=== PATIENT | male | born 1935 | race Caucasian/White ===

== ENCOUNTER → 2017-02-16 | Outpatient (CLI) | payer OTHER ==
[~2017-02-16] MED LIST: ANDROGEN IM; BICA50TA40 PO; CALC0.5C PO; CALC500C3; CALC500C3 PO; CIPR1TAB11 PO; CLC100 PO; CLCC1250 PO; CSD50 PO; FINA1TAB3 PO; FINA5TAB PO; FLUC100T4 PO; FSMD/70 PO; HYDR25TA5 PO; MGNO400 PO; MIRT15TA2 PO; MIRT15TA53 PO; MRLP17X PO; NYSO15 EXT; POTTAB2 PO; PRLSR20 PO; RANI300T2 PO; RMR15 PO; SULF800T23 PO; TAMS0.4C38 PO; TUMS PO; ZFRODT/8 PO; [UNRECOGNIZED DRUG - CODE] IV
== END | disposition home or self-care (01) ==
LOC: C.PATHSPEC 14:19
PROVIDERS: ATTEND Urology
DX: C61 Malignant neoplasm of prostate (principal)

== ENCOUNTER → 2017-02-19 | Outpatient (CLI) | payer OTHER ==
[~2017-02-19] MED LIST changes: -ANDROGEN IM; -BICA50TA40 PO; -CALC0.5C PO; -CALC500C3; -CALC500C3 PO; -CLC100 PO; -CLCC1250 PO; -FINA5TAB PO; -FSMD/70 PO; -HYDR25TA5 PO; -MGNO400 PO; -NYSO15 EXT; -POTTAB2 PO; -RMR15 PO; -TUMS PO; -[UNRECOGNIZED DRUG - CODE] IV
--- NOTE | 2017-02-19 18:41 | DIAGNOSTIC IMAGING REPORT ---
WHOLE-BODY NUCLEAR BONE SCAN CLINICAL HISTORY: Metastatic disease. COMPARISON STUDY: Abdominal CT dated 02/08/2017. TECHNIQUE: Three hours following the IV administration of 25.9 mCi of technetium 99m MDP, whole body nuclear bone scan was performed in the anterior and posterior projections. FINDINGS: There is diffuse abnormal osseous tracer deposition identified throughout the skeleton consistent with diffuse osseous metastatic disease. There is no excreted activity within the renal collecting system and bladder, and the findings are consistent with a "SuperScan". 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 This corresponds to the 02/08/2017 CT findings. Electronically signed by: Zoltan Barfield M.D. 02/19/2017 6:40 PM Dictated Date/Time: 02/19/2017 6:37 PM
== END | disposition home or self-care (01) ==
LOC: C.NUCL 09:50
PROVIDERS: ATTEND Urology
DX: N13.30 Unspecified hydronephrosis (principal); N40.0 Benign prostatic hyperplasia without lower urinary tract symptoms; R59.9 Enlarged lymph nodes, unspecified

== ENCOUNTER → 2017-02-19 | Day surgery (SDC) | payer OTHER ==
[~2017-02-19] VITALS: Ht 165.1 cm; Wt 60.5 kg
[~2017-02-19] MED LIST changes: -CSD50 PO; -MRLP17X PO; +SODIUM CHLORIDE 0.9% 500ML 500 ML IV ONE; -ZFRODT/8 PO
[2017-02-19 10:09] VITALS: TEMP 36.4
[2017-02-19 10:11] VITALS: Ht 165.1 cm; Wt 60.5 kg
--- NOTE | 2017-02-19 10:34 | Endo History and Physical ---
History & Physical Date of Service: Feb 19, 2017. Chief Complaint: dysphagia and recent weight loss Referring Physician: Dr. Brewster History of Present Illness 81 yo CM who presents for EGD secondary to Dysphagia and Weight loss. Past Surgical History Hx Cardiac Surgery: No Hx Internal Defibrillator: No Hx Pacemaker: No Hx Abdominal Surgery: Yes (hernia 2012) Hx of Implantable Prosthesis: No Hx Post-Op Nausea and Vomiting: No Hx Cancer Surgery: No Hx Thoracic Surgery: No Hx Orthopedic: No Hx Urinary Tract Surgery: No (Currently has urinary cath) Family History None Social History Smoking Status: Former Smoker Hx Substance Use: No Hx Alcohol Use: No Allergies Coded Allergies: No Known Allergies (Unverified , 02/19/17) Vital Signs Weight (Kilograms): 60.45 Height (Feet): 5 Height (Inches): 5 Date Time Temp Pulse Resp B/P (MAP) Pulse Ox O2 Delivery O2 Flow Rate FiO2 02/19/17 10:09 36.4 94 18 122/69 (86) 97 Room Air Physical Exam General Appearance: WD/WN, no apparent distress Respiratory/Chest: Auscultation: breath sounds normal Cardiovascular: Heart Auscultation: RRR Abdomen: Bowel Sounds: normal Inspection & Palpation: soft, non-distended, no tenderness, guarding & rebound Assessment and Plan Assessment: 81 yo CM who presents for EGD secondary to Dysphagia and Weight loss. Plan: Proceed with EGD.
--- NOTE | 2017-02-19 11:19 | GI REPORT ---
Procedure Date: 02/19/2017 10:03 AM Procedure: Upper GI endoscopy Indications: Dysphagia, Weight loss Medicines: Monitored Anesthesia Care Complications: No immediate complications. Estimated Blood Loss: Estimated blood loss: none. Procedure: Pre-Anesthesia Assessment: - Prior to the procedure, a History and Physical was performed, and patient medications and allergies were reviewed. The patient's tolerance of previous anesthesia was also reviewed. The risks and benefits of the procedure and the sedation options and risks were discussed with the patient. All questions were answered, and informed consent was obtained. Prior Anticoagulants: The patient has taken no previous anticoagulant or antiplatelet agents. ASA Grade Assessment: III - A patient with severe systemic disease. After reviewing the risks and benefits, the patient was deemed in satisfactory condition to undergo the procedure. After obtaining informed consent, the endoscope was passed under direct vision. Throughout the procedure, the patient's blood pressure, pulse, and oxygen saturations were monitored continuously. The scope was introduced through the mouth, and advanced to the second part of duodenum. The upper GI endoscopy was accomplished without difficulty. The patient tolerated the procedure well. Findings: A moderate Schatzki ring (acquired) was found at the gastroesophageal junction. A medium-sized hiatal hernia was present. Localized mild inflammation characterized by congestion (edema) and erythema was found in the gastric antrum. Biopsies were taken with a cold forceps for histology. The examined duodenum was normal. Impression: - Moderate Schatzki ring. - Medium-sized hiatal hernia. - Gastritis. Biopsied. - Normal examined duodenum. Recommendation: - Resume previous diet. - Continue present medications. - Await pathology results. - Return to primary care physician as previously scheduled. Bartolo Harris, DO 02/19/2017 11:19:18 AM This report has been signed electronically. Note Initiated On: 02/19/2017 10:03 AM I attest to the content of the Intraoperative Record and orders documented therein, exceptions below
--- NOTE | 2017-02-19 11:24 | Discharge Instructions ---
Endoscopy Patient Instructions Date / Procedure(s) Performed Feb 19, 2017. EGD Allergy Information Coded Allergies: No Known Allergies (Unverified , 02/19/17) Discharge Date / Findings Feb 19, 2017. Schatzki's Ring s/p dilation Hiatal hernia Gastritis s/p biopsies Medication Instructions OK to resume all medications today as prescribed Reported Home Medications Medications Dose Route/Sig Max Daily Dose Days Date Category Propecia (Finasteride) 1 Mg Tab 1 Mg PO 02/19/17 Reported Prilosec (Omeprazole) 20 Mg Capcr 20 Mg PO DAILY 02/19/17 Reported Flomax (Tamsulosin Hcl) 0.4 Mg Cap 1 Cap PO DAILY 30 02/19/17 Reported Diflucan (Fluconazole) 100 Mg Tab 1 Tab PO DAILY 10 02/19/17 Reported Zantac (Ranitidine HCl) 300 Mg Tab 300 Mg PO HS 02/19/17 Reported Remeron Soltab (Mirtazapine) 15 Mg Soltab 15 Mg PO 02/19/17 Reported Provider Instructions Activity Restrictions - No exercising or heavy lifting for 24 hours. - Do not drink alcohol the day of the procedure. - Do not drive a car or operate machinery until the day after the procedure. - Do not make any important decisions or sign important papers in 24 hours after the procedure. Following Day: - Return to full activity which may include returning to work/school. Diet Start your diet with liquids and light foods (jello, soup, juice, toast). Then eat your usual diet if not nauseated. Treatment For Common After Affects For mild abdominal pain, bloating, or excessive gas: - Rest - Eat lightly - Lie on right side Follow-Up Information Follow-up with Dr. Brewster as scheduled Anesthesia Information What You Should Know You have had a procedure that required some medicine to reduce anxiety and discomfort. This treatment is called moderate sedation. After receiving the treatment, you may be sleepy, but you will be able to breathe on your own. The effects of the treatment may last for several hours. Follow these instructions along with Activity/Diet recommendations noted above: * Do NOT do anything where dizziness or clumsiness would be dangerous. * Rest quietly at home today, then you can be up and about tomorrow. * Have a responsible person stay with you the rest of today. * You may have had an I.V. today. If so, you may take the dressing off later today. Recommendations Call your doctor if: * Trouble breathing * Continuous vomiting for more than 24 hours * Temperature above 101 degrees * Severe abdominal pain or bloating * Pain not relieved by pain medicine ordered * There is increased drainage or redness from any incision * A large amount of rectal bleeding greater than 2-3 tablespoons. (If you had a polyp/s removed or have hemorrhoids, a small amount of blood - from the rectum is to be expected.) * You have any unanswered questions or concerns. IN THE EVENT OF A SERIOUS EMERGENCY, GO TO THE NEAREST EMERGENCY ROOM Your discharge instructions were prepared by provider Bartolo Harris. Patient Instructions Signature Page Paul Greene Patient (or Guardian) Signature/Date: I have read and understand the instructions given to me by my caregivers. Caregiver/RN/Doctor Signature/Date: The above-named patient and/or guardian has received patient instructions on this date. + Original Patient Signature Page (only) stays with chart. Please make copy for patient.
--- NOTE | 2017-02-19 11:24 | Anesthesiology Progress Note ---
Anesthesia Post Op Note Date & Time Feb 19, 2017 at 11:24 Vital Signs Pain Intensity: 0 Vital Signs Past 12 Hours Date Time Temp Pulse Resp B/P (MAP) Pulse Ox O2 Delivery O2 Flow Rate FiO2 02/19/17 11:17 85 16 98/60 (73) 97 Room Air 02/19/17 10:09 36.4 94 18 122/69 (86) 97 Room Air Notes Mental Status: alert / awake / arousable, participated in evaluation Pt Amnestic to Procedure: Yes Nausea / Vomiting: adequately controlled Pain: adequately controlled Airway Patency, RR, SpO2: stable & adequate BP & HR: stable & adequate Hydration State: stable & adequate Anesthetic Complications: no major complications apparent
[2017-02-19 11:47] VITALS: BP 111/70; PULSE 79; O2SAT 95
== END | disposition home or self-care (01) ==
LOC: C.GI 09:46
PROVIDERS: ATTEND Internal Medicine
DX: R13.10 Dysphagia, unspecified (principal); R63.4 Abnormal weight loss; K22.2 Esophageal obstruction; K44.9 Diaphragmatic hernia without obstruction or gangrene; K29.50 Unspecified chronic gastritis without bleeding; N18.9 Chronic kidney disease, unspecified; I12.9 Hypertensive chronic kidney disease with stage 1 through stage 4 chronic kidney disease, or unspecified chronic kidney disease; Z91.040 Latex allergy status; Z88.1 Allergy status to other antibiotic agents

== ENCOUNTER 2017-02-20 15:36 | Inpatient (IN) | payer OTHER ==
[~2017-02-20] VITALS: Ht 165.1 cm; Wt 61.7 kg
[~2017-02-20 15:36] MED LIST changes: -CIPR1TAB11 PO; -MIRT15TA53 PO; -SODIUM CHLORIDE 0.9% 500ML 500 ML IV ONE; -SULF800T23 PO
[2017-02-20] MEDS ORDERED: SODIUM CHLORIDE 0.9% 1000ML 1,000 ML IV STA (16:17)
[2017-02-20] MEDS ORDERED: SODIUM CHLORIDE 0.9% 500ML 500 ML IV STA (16:17)
[2017-02-20] MEDS ORDERED: CIPR1TAB11 PO ×2 (16:24)
[2017-02-20] MEDS ORDERED: MIRT15TA53 PO ×2 (16:24)
[2017-02-20] MEDS ORDERED: SULF800T23 PO ×2 (16:24)
[2017-02-20 17:00] LABS: BASO % 0.5 %; BASO ABS # 0.03 K/uL (0-0.2); EOS ABS # 0.06 K/uL (0-0.5); HEMATOCRIT 40.8 % (42-52); HEMOGLOBIN 14.2 g/dL (14.0-18.0); IG# 0.11 K/uL (0.00-0.02); LYMPH % 18.4 %; LYMPH ABS # 1.14 K/uL (1.2-3.4); MEAN CELL VOLUME 83.6 fL (80-100); MEAN CORPUSCULAR HEMOGLOBIN 29.1 pg (25-34); MEAN CORPUSCULAR HGB CONC 34.8 g/dl (32-36); MEAN PLATELET VOLUME 7.9 fL (7.4-10.4); MONO % 10.2 %; MONO ABS # 0.63 K/uL (0.11-0.59); NEUT % 68.1 %; NEUT ABS # 4.23 K/uL (1.4-6.5); PLATELET COUNT 120 K/uL (130-400); RED CELL DISTRIBUTION WIDTH CV 14.6 % (11.5-14.5); RED CELL DISTRIBUTION WIDTH SD 44.7 fL (36.4-46.3)
--- NOTE | 2017-02-20 17:07 | DIAGNOSTIC IMAGING REPORT ---
CT HEAD WITHOUT CONTRAST (CT) CLINICAL HISTORY: Weakness COMPARISON STUDY: No previous studies for comparison. TECHNIQUE: Axial CT of the brain is performed from the vertex to the skull base. IV contrast was not administered for this examination. A dose lowering technique was utilized adhering to the principles of ALARA. CT DOSE: 537.48 mGy.cm FINDINGS: No intra or extra-axial mass lesions are visualized. There is no CT evidence of acute cortical infarction. There is no evidence of midline shift. There is no acute hemorrhage. No calvarial fractures are visualized. There are patchy white matter hypodensities likely on a small vessel basis. There is no evidence of pathologic ventricular dilatation. There is no evidence of acute sinusitis IMPRESSION: No acute intracranial findings Electronically signed by: Ananda Garcia M.D. 02/20/2017 5:05 PM Dictated Date/Time: 02/20/2017 5:05 PM
[2017-02-20 17:08] LABS: INR 1.2 (0.9-1.1); PTT PATIENT 31.7 SECONDS (21.0-31.0)
[2017-02-20 17:25] LABS: ALBUMIN 2.9 gm/dl (3.4-5.0); ALT/SGPT 16 U/L (12-78); BLOOD UREA NITROGEN 36 mg/dl (7-18); CALCIUM 8.5 mg/dl (8.5-10.1); CARBON DIOXIDE 24 mmol/L (21-32); CREATININE 2.58 mg/dl (0.60-1.40); GLUCOSE 131 mg/dl (70-99); LIPASE 142 U/L (73-393); POTASSIUM 4.3 mmol/L (3.5-5.1); SODIUM 133 mmol/L (136-145)
[2017-02-20 17:39] LABS: ALKALINE PHOSPHATASE 1326 U/L (45-117); AST/SGOT 31 U/L (15-37); CKMB 1.3 ng/ml (0.5-3.6); TOTAL PROTEIN 7.3 gm/dl (6.4-8.2)
[2017-02-20] MEDS ORDERED: ONDANSETRON INJ 2 MG/ML 2 ML VIAL IV STA (18:33)
--- NOTE | 2017-02-20 18:39 | DIAGNOSTIC IMAGING REPORT ---
AP CHEST WITH ABDOMINAL SERIES CLINICAL HISTORY: Vomiting. FINDINGS: An AP chest radiograph is obtained. No prior studies are available for comparison at the time of dictation. The cardiomediastinal silhouette is unremarkable. There is atherosclerotic calcification of the thoracic aorta. Nonspecific interstitial thickening is noted. No airspace consolidation, large pleural effusion, or pneumothorax is seen. A hiatal hernia is noted. The skeletal structures are osteopenic. The bony thorax is grossly intact. Supine and decubitus abdominal radiographs are correlated with abdominal CT dated 02/08/2017. There is a nonobstructed abdominal bowel gas pattern. There is moderate to severe constipation. A catheter projects over the pelvis. No evidence of intraperitoneal free air is seen. There are no abnormal abdominal calcifications. Moderate lumbosacral spondylosis is observed. The lumbosacral spine and bony pelvis appear intact. 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 This is most apparent in the pelvis. IMPRESSION: 1. No acute cardiopulmonary abnormality. 2. Nonobstructed abdominal bowel gas pattern. 3. Moderate to severe constipation. 4. A catheter projects over the pelvis. Clinical correlation will be required. 5. 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 Electronically signed by: Zoltan Barfield M.D. 02/20/2017 6:38 PM Dictated Date/Time: 02/20/2017 6:35 PM
[2017-02-20] MEDS ORDERED: BISACODYL 10 MG SUPP PR STA (20:07)
--- NOTE | 2017-02-20 20:10 | History and Physical ---
History & Physical Date & Time of Service: Feb 20, 2017 at 20:10 Chief Complaint: Vomiting,Dizziness,Lack Of Apetite,Weight Loss Primary Care Physician: Alexander Cárdenas M.D. History of Present Illness Source: patient, family, hospital records The patient is an 81-year-old male whose family reports has been vomiting with increasing frequency over the past couple days, with initial symptoms beginning over 3 months ago. He is very fatigued, dizzy, and has generalized abdominal pain. He's been having more difficulty swallowing recently, and underwent an EGD with dilatation of his esophagus yesterday with his vomiting worsening since that time. He's had a known problem with his prostate, and his had a catheter placed for the past 4 days. He did have a CAT scan and bone scan performed recently which showed issues with his prostate, kidneys and liver. He reports that he has not had many bowel movements over the past months, but is also not been eating or drinking much, as his family confirms. He did fall 5 days ago and hit the left side of his head, but has not had any active issues related to headaches etc. since that fall. His family confirms upon questioning , that he's had a 50 pound weight loss since November. Past Medical/Surgical History Medical Problems: (1) Hypertension Status: Resolved (2) Skin cancer Status: Resolved Surgical Problems: (1) S/P hernia repair Status: Resolved Family History noncontributory Social History Smoking Status: Former Smoker Smokeless Tobacco Use: No Alcohol Use: none Drug Use: none Marital Status: Occupational Status: retired Immunizations History of Influenza Vaccine: Unknown History of Tetanus Vaccine?: Unknown History of Pneumococcal: Unknown History of Hepatitis B Vaccine: Unknown Multi-Drug Resistant Organisms History of MDRO: No Allergies Coded Allergies: No Known Allergies (Unverified , 02/20/17) Home Medications Scheduled Ciprofloxacin Tab (Cipro), 500 MG PO BID Finasteride (Propecia), 1 MG PO HS Fluconazole (Diflucan), 1 TAB PO DAILY Mirtazapine (Mirtazapine), 15 MG PO HS Omeprazole (Prilosec), 20 MG PO DAILY Ranitidine (Zantac), 300 MG PO HS Sulfa/Trimethoprim (Bactrim Ds 800MG/160MG), 1 TAB PO BID Tamsulosin Hcl (Flomax), 0.8 MG PO HS Review of Systems The patient denies chest pain, palpitations, shortness of breath, cough, lower extremity swelling, diarrhea or constipation, abdominal pain, pelvic pain, blood in urine or stool, memory loss, loss of consciousness, rash, abnormal bruising or bleeding, focal weakness, or neck pain. The review of systems is otherwise negative other than for that already noted above, and at least 10 systems have been reviewed. Physical Exam Vital Signs Date Time Temp Pulse Resp B/P (MAP) Pulse Ox O2 Delivery O2 Flow Rate FiO2 02/20/17 17:48 86 18 123/70 97 Room Air 02/20/17 16:55 97 Room Air 02/20/17 16:42 93 02/20/17 15:52 36.3 99 20 115/69 97 Room Air The patient is awake, alert and oriented 3, looks moderately cachectic, normocephalic and atraumatic, lying in bed and in no acute distress. HEENT--PERRL, EOMI, mucous membranes and oropharynx dry. Neck--supple, no JVD or bruits, thyroid normal, trachea midline, no adenopathy. Heart--normal S1 and S2, no extra beats, no murmurs, rubs or gallops. Lungs--clear bilaterally with good air movement, no respiratory distress, no accessory muscle use. Abdomen--normal bowel sounds and soft, mildly tender, mildly firm, no hernias or masses. Extremities--no cyanosis, clubbing or edema. There are good distal pulses b/l. Dermatologic--normal skin turgor, normal color, warm and dry, no abnormal lymph nodes, no rash. Neurologic--cranial nerves II through XII grossly intact. Rheumatologic--normal range of motion. Psychiatric--normal affect. Diagnostics Laboratory Results Results Past 24 Hours Test 02/20/17 16:40 Range/Units White Blood Count 6.20 4.8-10.8 K/uL Red Blood Count 4.88 4.7-6.1 M/uL Hemoglobin 14.2 14.0-18.0 g/dL Hematocrit 40.8 42-52 % Mean Corpuscular Volume 83.6 80-100 fL Mean Corpuscular Hemoglobin 29.1 25-34 pg Mean Corpuscular Hemoglobin Concent 34.8 32-36 g/dl Platelet Count 120 130-400 K/uL Mean Platelet Volume 7.9 7.4-10.4 fL Neutrophils (%) (Auto) 68.1 % Lymphocytes (%) (Auto) 18.4 % Monocytes (%) (Auto) 10.2 % Eosinophils (%) (Auto) 1.0 % Basophils (%) (Auto) 0.5 % Neutrophils # (Auto) 4.23 1.4-6.5 K/uL Lymphocytes # (Auto) 1.14 1.2-3.4 K/uL Monocytes # (Auto) 0.63 0.11-0.59 K/uL Eosinophils # (Auto) 0.06 0-0.5 K/uL Basophils # (Auto) 0.03 0-0.2 K/uL RDW Standard Deviation 44.7 36.4-46.3 fL RDW Coefficient of Variation 14.6 11.5-14.5 % Immature Granulocyte % (Auto) 1.8 % Immature Granulocyte # (Auto) 0.11 0.00-0.02 K/uL Prothrombin Time 12.5 9.0-12.0 SECONDS Prothromb Time International Ratio 1.2 0.9-1.1 Activated Partial Thromboplast Time 31.7 21.0-31.0 SECONDS Partial Thromboplastin Ratio 1.2 Sodium Level 133 136-145 mmol/L Potassium Level 4.3 3.5-5.1 mmol/L Chloride Level 99 98-107 mmol/L Carbon Dioxide Level 24 21-32 mmol/L Anion Gap 10.0 3-11 mmol/L Blood Urea Nitrogen 36 7-18 mg/dl Creatinine 2.58 0.60-1.40 mg/dl Est Creatinine Clear Calc Drug Dose 18.9 ml/min Estimated GFR () 25.5 Estimated GFR (Non- 22.0 BUN/Creatinine Ratio 13.9 10-20 Random Glucose 131 70-99 mg/dl Calcium Level 8.5 8.5-10.1 mg/dl Magnesium Level 1.6 1.8-2.4 mg/dl Total Bilirubin 0.4 0.2-1 mg/dl Direct Bilirubin 0.1 0-0.2 mg/dl Aspartate Amino Transf (AST/SGOT) 31 15-37 U/L Alanine Aminotransferase (ALT/SGPT) 16 12-78 U/L Alkaline Phosphatase 1326 45-117 U/L Total Creatine Kinase 78 39-308 U/L Creatine Kinase MB 1.3 0.5-3.6 ng/ml Creatine Kinase MB Ratio 1.7 0-3.0 Troponin I < 0.015 0-0.045 ng/ml Total Protein 7.3 6.4-8.2 gm/dl Albumin 2.9 3.4-5.0 gm/dl Lipase 142 73-393 U/L Thyroid Stimulating Hormone (TSH) 2.120 0.300-4.500 uIu/ml Diagnostic Radiology Patient Name: NICOLE LOPEZ Unit Number: [id number] Dictated: 02/20/171704 Transcribed: 02/20/171704 ARG Printed Date/Time: [~ rep prt dt]/[~ rep prt tm] [~ rep ct labl] - [~ rep ct ivnm] [facility] [place] [address] Dictated: 02/20/171704 Transcribed: 02/20/171704 ARG Printed Date/Time: [~ rep prt dt]/[~ rep prt tm] [~ rep ct labl] - [~ rep ct ivnm] [~ rep ct add3]] CT HEAD WITHOUT CONTRAST (CT) CLINICAL HISTORY: Weakness COMPARISON STUDY: No previous studies for comparison. TECHNIQUE: Axial CT of the brain is performed from the vertex to the skull base. IV contrast was not administered for this examination. A dose lowering technique was utilized adhering to the principles of ALARA. CT DOSE: 537.48 mGy.cm FINDINGS: No intra or extra-axial mass lesions are visualized. There is no CT evidence of acute cortical infarction. There is no evidence of midline shift. There is no acute hemorrhage. No calvarial fractures are visualized. There are patchy white matter hypodensities likely on a small vessel basis. There is no evidence of pathologic ventricular dilatation. There is no evidence of acute sinusitis IMPRESSION: No acute intracranial findings Electronically signed by: Ananda Garcia M.D. 02/20/2017 5:05 PM Dictated Date/Time: 02/20/2017 5:05 PM The status of this report is Signed. Draft = Not yet reviewed or approved by Radiologist. Signed = Reviewed and approved by Radiologist. <AttendingPhy></AttendingPhy> <FamilyPhy>Alexander Cárdenas M.D.</FamilyPhy > <PrimaryPhy>Alexander Cárdenas M.D.</PrimaryPhy> <UnitNumber>[id number]</ UnitNumber> <VisitNumber>[id number]</VisitNumber> <PatientName>NICOLE LOPEZ </PatientName> <DateOfBirth>1935</DateOfBirth> <Location>[facility]</Location> <ServiceDate>02/20/17</ServiceDate> <MNE>ESINDI</MNE> <OrderingPhy>Earl Jamison MD</OrderingPhy> <OrderingPhyMNE>f rep ord dr smith</OrderingPhyMNE> < DictatingPhyMNE>f rep dict dr smith</DictatingPhyMNE> <CCListMNE>f rep ct mne</ CCListMNE> <AdmittingPhyMNE>f pt admit dr smith</AdmittingPhyMNE> <AttendingPhyMNE >f pt attend dr smith</AttendingPhyMNE> <ConsultingPhyMNE>f pt consult dr smith</ConsultingPhyMNE> <FamilyPhyMNE>f pt fam dr smith</FamilyPhyMNE> <OtherPhyMNE>f pt other dr smith</OtherPhyMNE> < PrimaryPhyMNE>f pt prim care dr smith</PrimaryPhyMNE> <ReferringPhyMNE>f pt referring dr smith</ReferringPhyMNE> Patient Name: NICOLE LOPEZ Unit Number: [id number] Dictated: 02/20/171834 Transcribed: 02/20/171834 EV Printed Date/Time: [~ rep prt dt]/[~ rep prt tm] [~ rep ct labl] - [~ rep ct ivnm] [facility] [place] [address] Dictated: 02/20/171834 Transcribed: 02/20/171834 EV Printed Date/Time: [~ rep prt dt]/[~ rep prt tm] [~ rep ct labl] - [~ rep ct ivnm] [~ rep ct add3]] AP CHEST WITH ABDOMINAL SERIES CLINICAL HISTORY: Vomiting. FINDINGS: An AP chest radiograph is obtained. No prior studies are available for comparison at the time of dictation. The cardiomediastinal silhouette is unremarkable. There is atherosclerotic calcification of the thoracic aorta. Nonspecific interstitial thickening is noted. No airspace consolidation, large pleural effusion, or pneumothorax is seen. A hiatal hernia is noted. The skeletal structures are osteopenic. The bony thorax is grossly intact. Supine and decubitus abdominal radiographs are correlated with abdominal CT dated 02/08/2017. There is a nonobstructed abdominal bowel gas pattern. There is moderate to severe constipation. A catheter projects over the pelvis. No evidence of intraperitoneal free air is seen. There are no abnormal abdominal calcifications. Moderate lumbosacral spondylosis is observed. The lumbosacral spine and bony pelvis appear intact. 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 This is most apparent in the pelvis. IMPRESSION: 1. No acute cardiopulmonary abnormality. 2. Nonobstructed abdominal bowel gas pattern. 3. Moderate to severe constipation. 4. A catheter projects over the pelvis. Clinical correlation will be required. 5. 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 Electronically signed by: Zoltan Barfield M.D. 02/20/2017 6:38 PM Dictated Date/Time: 02/20/2017 6:35 PM The status of this report is Signed. Draft = Not yet reviewed or approved by Radiologist. Signed = Reviewed and approved by Radiologist. <AttendingPhy></AttendingPhy> <FamilyPhy>Alexander Cárdenas M.D.</FamilyPhy > <PrimaryPhy>Alexander Cárdenas M.D.</PrimaryPhy> <UnitNumber>[id number]</ UnitNumber> <VisitNumber>[id number]</VisitNumber> <PatientName>NICOLE LOPEZ </PatientName> <DateOfBirth>1935</DateOfBirth> <Location>[facility]</Location> <ServiceDate>02/20/17</ServiceDate> <MNE>ESINDI</MNE> <OrderingPhy>Earl Jamison MD</OrderingPhy> <OrderingPhyMNE>f rep ord dr smith</OrderingPhyMNE> < DictatingPhyMNE>f rep dict dr smith</DictatingPhyMNE> <CCListMNE>f rep ct mne</ CCListMNE> <AdmittingPhyMNE>f pt admit dr smith</AdmittingPhyMNE> <AttendingPhyMNE >f pt attend dr smith</AttendingPhyMNE> <ConsultingPhyMNE>f pt consult dr smith</ConsultingPhyMNE> <FamilyPhyMNE>f pt fam dr smith</FamilyPhyMNE> <OtherPhyMNE>f pt other dr smith</OtherPhyMNE> < PrimaryPhyMNE>f pt prim care dr smith</PrimaryPhyMNE> <ReferringPhyMNE>f pt referring dr smith</ReferringPhyMNE> Patient Name: NICOLE LOPEZ Unit Number: [id number] Dictated: 02/20/172100 Transcribed: 02/20/172100 ARG Printed Date/Time: [~ rep prt dt]/[~ rep prt tm] [~ rep ct labl] - [~ rep ct ivnm] [facility] Radiology Department [place] [id number] Dictated: 02/20/172100 Transcribed: 02/20/172100 ARG Printed Date/Time: [~ rep prt dt]/[~ rep prt tm] [~ rep ct labl] - [~ rep ct ivnm] CT SCAN OF THE ABDOMEN AND PELVIS WITHOUT CONTRAST CLINICAL HISTORY: intractable nausea and vomiting COMPARISON STUDY: Outside CT scan dated 02/08/2017 TECHNIQUE: CT scan of the abdomen and pelvis was performed from the lung bases to the proximal femurs. Images are reviewed in the axial, sagittal, and coronal planes. IV contrast was not administered for this examination. A dose lowering technique was utilized adhering to the principles of ALARA. CT DOSE: 272.00 mGy.cm FINDINGS: Lower chest: There is a moderate hiatal hernia. Liver: The unenhanced liver is normal in size, contour, and attenuation. There is no intrahepatic biliary ductal dilatation. Gallbladder: There is borderline gallbladder distention. No calculi are visualized. Spleen: Normal in size and attenuation. Pancreas: Unremarkable. Adrenal glands: Unremarkable. Kidneys: There are multiple bilateral renal masses consistent with cysts. The largest the right measures 4.8 cm. The largest on the left measures 5.2 cm. There is mild fullness of each renal pelvis, possibly secondary to long-standing bladder outlet obstruction Bowel: There are no transition zones to indicate bowel obstruction. There is extensive colonic diverticulosis. There are no acute peridiverticular inflammatory changes. There are no findings to indicate acute appendicitis. Peritoneum: There is no intraperitoneal free air or abdominal ascites. Vasculature: There is a 31 mm infrarenal abdominal aortic aneurysm. Adenopathy: None. Pelvic viscera: There is marked bladder wall thickening. There is an indwelling Berkowitz catheter. The prostate is enlarged. Skeletal structures: There is diffuse sclerotic change in the skeleton, a finding viewed highly suspicious for widespread blastic metastasis. IMPRESSION: 1. No evidence of bowel obstruction. No evidence of free air 2. Extensive diverticulosis. No evidence of acute diverticulitis 3. 31 mm infrarenal abdominal aortic aneurysm 4. 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 Correlate with prostatic specific antigen. 5. Marked bladder wall thickening. Prostamegaly. 6. Moderate hiatal hernia Electronically signed by: Ananda Garcia M.D. 02/20/2017 9:09 PM Dictated Date/Time: 02/20/2017 9:01 PM The status of this report is Signed. Draft = Not yet reviewed or approved by Radiologist. Signed = Reviewed and approved by Radiologist. <AttendingPhy></AttendingPhy> <FamilyPhy>Alexander Cárdenas M.D.</FamilyPhy > <PrimaryPhy>Alexander Cárdenas M.D.</PrimaryPhy> <UnitNumber>[id number]</ UnitNumber> <VisitNumber>[id number]</VisitNumber> <PatientName>NICOLE LOPEZ </PatientName> <DateOfBirth>1935</DateOfBirth> <Location>[facility]</Location> <ServiceDate>02/20/17</ServiceDate> <MNE>ESINDI</MNE> <OrderingPhy>Adolfo Barbosa M.D.</OrderingPhy> <OrderingPhyMNE>f rep ord dr smith</OrderingPhyMNE> < DictatingPhyMNE>f rep dict dr smith</DictatingPhyMNE> <CCListMNE>f rep ct shanie</ CCListMNE> <AdmittingPhyMNE>f pt admit dr smith</AdmittingPhyMNE> <AttendingPhyMNE >f pt attend dr smith</AttendingPhyMNE> <ConsultingPhyMNE>f pt consult dr smith</ConsultingPhyMNE> <FamilyPhyMNE>f pt fam dr smith</FamilyPhyMNE> <OtherPhyMNE>f pt other dr smith</OtherPhyMNE> < PrimaryPhyMNE>f pt prim care dr smith</PrimaryPhyMNE> <ReferringPhyMNE>f pt referring dr smith</ReferringPhyMNE> EKG EKG shows normal sinus rhythm at 87 bpm, there are no acute ST-T changes. Impression Assessment and Plan Intractable nausea and vomiting/50 pound weight loss over 3 months/status post EGD with dilatation 1 day ago-- CT shows moderately severe constipation. He's had relatively poor solid and liquid intake over the past several months. We'll place on improved bowel regimen with Dulcolax suppository and fleets enema. He has been given 1 L of IV fluids in the ED. We'll continue IV fluids at 100 ML's per hour. Change omeprazole 20 mg by mouth daily to pantoprazole 40 mg IV daily Zofran 4 mg IV every 6 hours when necessary We'll consult drapery hemmer automatic Dr. Bartolo Harris. 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 His weight loss can likely be attributed to metastatic prostate cancer, GI complications associated with severe constipation, and/or both. Continue tamsulosin 0.8 mg by mouth at bedtime We'll consult Dr. Edil Gonzales. Depression/insomnia-- Continue mirtazapine 15 mg by mouth at bedtime Chronic kidney disease-- Likely secondary to BPH with ARELLANO He has been seen by Dr. Cifuentes from nephrology. Level of Care Med/Surg Advanced Directives Existing Advance Directive: No Existing Living Will: No Existing Power of Pheresis Nurse: No Resuscitation Status FULL RESUSCITATION VTE Prophylaxis VTE Risk Assessment Done? Y/N: Yes Risk Level: Moderate Given or contraindicated: SCD's
[2017-02-20] MEDS ORDERED: SOD PHOSPHATE/SOD BIPHOSPHATE ENEMA 132 ML BTL PR PRN (20:15)
[2017-02-20] MEDS ORDERED: ONDANSETRON 8MG OD TAB PO PRN (20:15)
[2017-02-20] MEDS ORDERED: ACETAMINOPHEN 325 MG TAB PO PRN (20:15)
[2017-02-20] MEDS ORDERED: BISACODYL 10 MG SUPP PR PRN (20:15)
--- NOTE | 2017-02-20 21:10 | DIAGNOSTIC IMAGING REPORT ---
CT SCAN OF THE ABDOMEN AND PELVIS WITHOUT CONTRAST CLINICAL HISTORY: intractable nausea and vomiting COMPARISON STUDY: Outside CT scan dated 02/08/2017 TECHNIQUE: CT scan of the abdomen and pelvis was performed from the lung bases to the proximal femurs. Images are reviewed in the axial, sagittal, and coronal planes. IV contrast was not administered for this examination. A dose lowering technique was utilized adhering to the principles of ALARA. CT DOSE: 272.00 mGy.cm FINDINGS: Lower chest: There is a moderate hiatal hernia. Liver: The unenhanced liver is normal in size, contour, and attenuation. There is no intrahepatic biliary ductal dilatation. Gallbladder: There is borderline gallbladder distention. No calculi are visualized. Spleen: Normal in size and attenuation. Pancreas: Unremarkable. Adrenal glands: Unremarkable. Kidneys: There are multiple bilateral renal masses consistent with cysts. The largest the right measures 4.8 cm. The largest on the left measures 5.2 cm. There is mild fullness of each renal pelvis, possibly secondary to long-standing bladder outlet obstruction Bowel: There are no transition zones to indicate bowel obstruction. There is extensive colonic diverticulosis. There are no acute peridiverticular inflammatory changes. There are no findings to indicate acute appendicitis. Peritoneum: There is no intraperitoneal free air or abdominal ascites. Vasculature: There is a 31 mm infrarenal abdominal aortic aneurysm. Adenopathy: None. Pelvic viscera: There is marked bladder wall thickening. There is an indwelling Berkowitz catheter. The prostate is enlarged. Skeletal structures: There is diffuse sclerotic change in the skeleton, a finding viewed highly suspicious for widespread blastic metastasis. IMPRESSION: 1. No evidence of bowel obstruction. No evidence of free air 2. Extensive diverticulosis. No evidence of acute diverticulitis 3. 31 mm infrarenal abdominal aortic aneurysm 4. 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 Correlate with prostatic specific antigen. 5. Marked bladder wall thickening. Prostamegaly. 6. Moderate hiatal hernia Electronically signed by: Ananda Garcia M.D. 02/20/2017 9:09 PM Dictated Date/Time: 02/20/2017 9:01 PM
[2017-02-20 22:06] VITALS: BP 98/57; PULSE 93; TEMP 36.5; O2SAT 96; BMI 22.2
[2017-02-20] MEDS: SODIUM CHLORIDE 0.9% 1000ML 1,000 ML IV SCH (22:21)
[2017-02-20] MEDS: MIRTAZAPINE TAB 15 MG TAB PO SCH (22:51)
[2017-02-20] MEDS: TAMSULOSIN HCL 0.4 MG CAP PO SCH (22:51)
--- NOTE | 2017-02-20 23:35 | EMERGENCY ROOM VISIT NOTE ---
History Report prepared by Hiwot: Mc Melara Under the Supervision of: Dr. Earl Jamison M.D. First contact with patient: 16:07 Chief Complaint: ILLNESS Stated Complaint: VOMITING,DIZZINESS,LACK OF APETITE,WEIGHT LOSS History of Present Illness The patient is an 81 year old male who presents to the Emergency Room with complaints of a worsening illness over the past three months. The patient's family states that the patient has been vomiting very frequently recently, and he has been unable to eat for the past couple of days and has lost weight. The patient additionally notes that he has been having some left flank and left upper abdominal pain. He also states that he has been very dizzy, and 5 days ago he had a fall and hit the left side of his head. The patient is not currently on any blood thinners. The patient has been having trouble swallowing recently, and yesterday he had his esophagus dilated, and since then the vomiting has gotten worse. Also, he has problems with his prostate, so he has a catheter in place for the past four days. The patient had a bone scan done yesterday, and he has recently had a CT scan which showed problems with his prostate, kidneys, and his liver. The patient states that he has not had any problems with his bowels, though he has not had many bowel movements from the lack of eating. Also, the patient reports that he has had a runny nose for the past month Pt denies LOC, headache, fevers, chills, diaphoresis, visual changes , neck pain, chest pain, breathing difficulties, back pain, melena, hematochezia , urinary symptoms, numbness, weakness, lymphadenopathy, rash, or other complaints. Source of History: patient, family Onset: three months Position: other (global) Quality: other (illness) Timing: worsening Associated Symptoms: + nausea, + vomiting, + abdominal pain Note: Associated symptoms: dizziness and weight loss Review of Systems See HPI for pertinent positives and negatives. A total of ten systems were reviewed and were otherwise negative. Past Medical & Surgical Medical Problems: (1) Hypertension (2) Intractable nausea and vomiting (3) Skin cancer (4) Unintentional weight loss Surgical Problems: (1) S/P hernia repair Social History Smoking Status: Former Smoker Marital Status: Occupation Status: retired Current/Historical Medications Scheduled Ciprofloxacin Tab (Cipro), 500 MG PO BID Finasteride (Propecia), 1 MG PO HS Fluconazole (Diflucan), 1 TAB PO DAILY Mirtazapine (Mirtazapine), 15 MG PO HS Omeprazole (Prilosec), 20 MG PO DAILY Ranitidine (Zantac), 300 MG PO HS Sulfa/Trimethoprim (Bactrim Ds 800MG/160MG), 1 TAB PO BID Tamsulosin Hcl (Flomax), 0.8 MG PO HS Allergies Coded Allergies: No Known Allergies (Unverified , 02/20/17) Physical Exam Vital Signs Date Time Temp Pulse Resp B/P (MAP) Pulse Ox O2 Delivery O2 Flow Rate FiO2 02/20/17 17:48 86 18 123/70 97 Room Air 02/20/17 16:55 97 Room Air 02/20/17 16:42 93 02/20/17 15:52 36.3 99 20 115/69 97 Room Air Physical Exam GENERAL: Awake, alert, well-appearing, in no distress HENT: Healing abrasions to the left periorbital area. Normocephalic, atraumatic. Oropharynx unremarkable. EYES: Normal conjunctiva. Sclera non-icteric. NECK: Supple. No nuchal rigidity. FROM. No JVD. RESPIRATORY: Clear to auscultation. CARDIAC: Regular rate, normal rhythm. Extremities warm and well perfused. Pulses equal. ABDOMEN: Soft, non-distended. No tenderness to palpation. No rebound or guarding. No masses. : Berkowitz Catheter in place. RECTAL: Deferred. MUSCULOSKELETAL: There is minimal left rib tenderness. Chest examination reveals no tenderness. The back is symmetrical on inspection without obvious abnormality. There is no CVA tenderness to palpation. No joint edema. LOWER EXTREMITIES: Calves are equal size bilaterally and non-tender. No edema. No discoloration. NEURO: Normal sensorium. No sensory or motor deficits noted. SKIN: No rash or jaundice noted. Medical Decision & Procedures ER Provider Diagnostic Interpretation: Radiology results as stated below per my review and radiologist interpretation: CT HEAD WITHOUT CONTRAST (CT) CLINICAL HISTORY: Weakness COMPARISON STUDY: No previous studies for comparison. TECHNIQUE: Axial CT of the brain is performed from the vertex to the skull base. IV contrast was not administered for this examination. A dose lowering technique was utilized adhering to the principles of ALARA. CT DOSE: 537.48 mGy.cm FINDINGS: No intra or extra-axial mass lesions are visualized. There is no CT evidence of acute cortical infarction. There is no evidence of midline shift. There is no acute hemorrhage. No calvarial fractures are visualized. There are patchy white matter hypodensities likely on a small vessel basis. There is no evidence of pathologic ventricular dilatation. There is no evidence of acute sinusitis IMPRESSION: No acute intracranial findings Electronically signed by: Ananda Garcia M.D. 02/20/2017 5:05 PM Dictated Date/Time: 02/20/2017 5:05 PM AP CHEST WITH ABDOMINAL SERIES CLINICAL HISTORY: Vomiting. FINDINGS: An AP chest radiograph is obtained. No prior studies are available for comparison at the time of dictation. The cardiomediastinal silhouette is unremarkable. There is atherosclerotic calcification of the thoracic aorta. Nonspecific interstitial thickening is noted. No airspace consolidation, large pleural effusion, or pneumothorax is seen. A hiatal hernia is noted. The skeletal structures are osteopenic. The bony thorax is grossly intact. Supine and decubitus abdominal radiographs are correlated with abdominal CT dated 02/08/2017. There is a nonobstructed abdominal bowel gas pattern. There is moderate to severe constipation. A catheter projects over the pelvis. No evidence of intraperitoneal free air is seen. There are no abnormal abdominal calcifications. Moderate lumbosacral spondylosis is observed. The lumbosacral spine and bony pelvis appear intact. 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 This is most apparent in the pelvis. IMPRESSION: 1. No acute cardiopulmonary abnormality. 2. Nonobstructed abdominal bowel gas pattern. 3. Moderate to severe constipation. 4. A catheter projects over the pelvis. Clinical correlation will be required. 5. 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 Electronically signed by: Zoltan Barfield M.D. 02/20/2017 6:38 PM Dictated Date/Time: 02/20/2017 6:35 PM Laboratory Results 02/20/17 16:40 Red Blood Count 4.88, Mean Corpuscular Volume 83.6, Mean Corpuscular Hemoglobin 29.1, Mean Corpuscular Hemoglobin Concent 34.8, Mean Platelet Volume 7.9, Neutrophils (%) (Auto) 68.1, Lymphocytes (%) (Auto) 18.4, Monocytes (%) (Auto) 10.2, Eosinophils (%) (Auto) 1.0, Basophils (%) (Auto) 0.5, Neutrophils # (Auto ) 4.23, Lymphocytes # (Auto) 1.14, Monocytes # (Auto) 0.63, Eosinophils # (Auto ) 0.06, Basophils # (Auto) 0.03 02/20/17 16:40 Test 02/20/17 16:40 White Blood Count 6.20 K/uL (4.8-10.8) Red Blood Count 4.88 M/uL (4.7-6.1) Hemoglobin 14.2 g/dL (14.0-18.0) Hematocrit 40.8 % (42-52) Mean Corpuscular Volume 83.6 fL (80-100) Mean Corpuscular Hemoglobin 29.1 pg (25-34) Mean Corpuscular Hemoglobin Concent 34.8 g/dl (32-36) Platelet Count 120 K/uL (130-400) Mean Platelet Volume 7.9 fL (7.4-10.4) Neutrophils (%) (Auto) 68.1 % Lymphocytes (%) (Auto) 18.4 % Monocytes (%) (Auto) 10.2 % Eosinophils (%) (Auto) 1.0 % Basophils (%) (Auto) 0.5 % Neutrophils # (Auto) 4.23 K/uL (1.4-6.5) Lymphocytes # (Auto) 1.14 K/uL (1.2-3.4) Monocytes # (Auto) 0.63 K/uL (0.11-0.59) Eosinophils # (Auto) 0.06 K/uL (0-0.5) Basophils # (Auto) 0.03 K/uL (0-0.2) RDW Standard Deviation 44.7 fL (36.4-46.3) RDW Coefficient of Variation 14.6 % (11.5-14.5) Immature Granulocyte % (Auto) 1.8 % Immature Granulocyte # (Auto) 0.11 K/uL (0.00-0.02) Prothrombin Time 12.5 SECONDS (9.0-12.0) Prothromb Time International Ratio 1.2 (0.9-1.1) Activated Partial Thromboplast Time 31.7 SECONDS (21.0-31.0) Partial Thromboplastin Ratio 1.2 Anion Gap 10.0 mmol/L (3-11) Est Creatinine Clear Calc Drug Dose 18.9 ml/min Estimated GFR () 25.5 Estimated GFR (Non- 22.0 BUN/Creatinine Ratio 13.9 (10-20) Calcium Level 8.5 mg/dl (8.5-10.1) Magnesium Level 1.6 mg/dl (1.8-2.4) Total Bilirubin 0.4 mg/dl (0.2-1) Direct Bilirubin 0.1 mg/dl (0-0.2) Aspartate Amino Transf (AST/SGOT) 31 U/L (15-37) Alanine Aminotransferase (ALT/SGPT) 16 U/L (12-78) Alkaline Phosphatase 1326 U/L (45-117) Total Creatine Kinase 78 U/L (39-308) Creatine Kinase MB 1.3 ng/ml (0.5-3.6) Creatine Kinase MB Ratio 1.7 (0-3.0) Troponin I < 0.015 ng/ml (0-0.045) Total Protein 7.3 gm/dl (6.4-8.2) Albumin 2.9 gm/dl (3.4-5.0) Lipase 142 U/L (73-393) Thyroid Stimulating Hormone (TSH) 2.120 uIu/ml (0.300-4.500) Laboratory results reviewed by me Medications Administered Medications (Trade) Dose Ordered Sig/Jonathan Route Start Time Stop Time Status Last Admin Dose Admin Sodium Chloride 1,000 ml @ 125 mls/hr Q8H STAT IV 02/20/17 16:17 02/20/17 22:15 DC 02/20/17 17:47 125 MLS/HR Sodium Chloride 500 ml @ 999 mls/hr Q31M STAT IV 02/20/17 16:17 02/20/17 16:47 DC 02/20/17 16:55 999 MLS/HR Ondansetron HCl (Zofran Inj) 4 mg NOW STAT IV 02/20/17 18:33 02/20/17 18:34 DC 02/20/17 18:33 4 MG Bisacodyl (Dulcolax Supp) 10 mg NOW STAT VA 02/20/17 20:07 02/20/17 20:19 DC 02/20/17 22:20 10 MG ECG Indication: vomiting Rate (beats per minute): 87 Rhythm: normal sinus Findings: nonspecific-ST abn, no acute ischemic change, no ectopy ED Course 160: The patient was evaluated in room C2. A complete history and physical exam was performed. 1617: Sodium Chloride 500 ml @ 999 mls/hr IV, Sodium Chloride 1000 ml @ 125 mls/ hr IV 1833: Zofran 4mg IV 185: Upon reexamination, the patient was doing well. I discussed the test results and treatment plan with him. The patient will be evaluated for further management. 1923: Discussed the patient's case with Dr. Barbosa. The patient will be evaluated for further treatment and disposition. Medical Decision Prior records/ancillary studies reviewed. Triage Nursing notes reviewed and agree them. Additional history obtained from the family. The patient's history was concerning for nausea, vomiting, and significant weight loss Differential diagnosis: Etiologies such as dehydration, electrolyte abnormality, gastroenteritis, food borne illness, infections, appendicitis, diverticulitis, inflammatory bowel disease, GI bleed, biliary pathology, as well as others were entertained. Physical examination findings: As above. Benign abdomen. ER treatment provided: IV hydration [with normal saline IV Zofran On reassessment the patient felt somewhat better. Diagnostics interpretation by me: ECG: No ischemia The labs revealed an unremarkable CBC. Chemistry panel revealed an elevated creatinine but this was not significantly different than baseline. Imaging studies: X-rays as above. CT scan as above. The patient hasn't been in to tolerate any significant oral intake despite GI intervention. They recommended further management in the hospital. The patient was hydrated. Consultation: A consultation was placed with the hospitalist. The case was discussed and diagnostics were reviewed. The patient was evaluated in the ER for further treatment. Medication Reconcilliation Current Medication List: was personally reviewed by me Blood Pressure Screening Patient's blood pressure: Normal blood pressure Consults Time Called: 1856 Consulting Physician: Dr. Barbosa Returned Call: 1923 Discussed the patient's case Dr. Barbosa. The patient will be evaluated for further treatment and disposition. Impression Primary Impression: Vomiting Additional Impressions: Dehydration Failure to thrive Scribe Attestation The scribe's documentation has been prepared under my direction and personally reviewed by me in its entirety. I confirm that the note above accurately reflects all work, treatment, procedures, and medical decision making performed by me. Departure Information Dispostion Being Evaluated By Hospitalist Referrals Alexander Cárdenas M.D. (PCP) Patient Instructions My [facility] Problem Qualifiers
[2017-02-21] MEDS ORDERED: MAGNESIUM SULFATE 1GM / D5W 1 GM in PREMIXED IN D5W 100 ML IV STA (04:37)
[2017-02-21 06:38] LABS: HEMATOCRIT 34.5 % (42-52); HEMOGLOBIN 11.8 g/dL (14.0-18.0); MEAN CELL VOLUME 83.9 fL (80-100); MEAN CORPUSCULAR HEMOGLOBIN 28.7 pg (25-34); MEAN CORPUSCULAR HGB CONC 34.2 g/dl (32-36); RED CELL DISTRIBUTION WIDTH CV 14.8 % (11.5-14.5); RED CELL DISTRIBUTION WIDTH SD 45.2 fL (36.4-46.3); WHITE BLOOD COUNT 6.04 K/uL (4.8-10.8)
[2017-02-21 06:58] LABS: MEAN PLATELET VOLUME 7.7 fL (7.4-10.4); PLATELET COUNT 79 K/uL (130-400)
[2017-02-21 06:59] LABS: BASO % 0.8 %; BASO ABS # 0.05 K/uL (0-0.2); EOS ABS # 0.18 K/uL (0-0.5); IG# 0.09 K/uL (0.00-0.02); LYMPH % 24.8 %; MONO % 10.1 %; MONO ABS # 0.61 K/uL (0.11-0.59); NEUT % 59.8 %; NEUT ABS # 3.61 K/uL (1.4-6.5)
[2017-02-21 07:17] LABS: CALCIUM 8.2 mg/dl (8.5-10.1); CREATININE 2.18 mg/dl (0.60-1.40); POTASSIUM 3.8 mmol/L (3.5-5.1)
[2017-02-21 07:31] VITALS: BP 104/55; PULSE 88; TEMP 36.9; O2SAT 96
[2017-02-21] MEDS ORDERED: PNEUMOCOCCAL POLYSACCHARIDES 25 MCG/0.5 ML VIAL/SYR IM. ONE (08:00)
[2017-02-21] MEDS ORDERED: INFLUENZA VACCINE HIGH DOSE 65+ 0.5 ML SYR IM. ONE (08:00)
[2017-02-21] MEDS ORDERED: INFLUENZA ADMINISTRATION CHARGE ONE (08:00)
[2017-02-21] MEDS ORDERED: PNEUMOCOCCAL ADMINISTRATION CHARGE ONE (08:00)
--- NOTE | 2017-02-21 10:01 | Clinical Documentation Query ---
CLINICAL DOCUMENTATION QUERY QUERY 1 OF 3 An 81-year-old male whose family reports has been vomiting with increasing frequency over the past couple days, with initial symptoms beginning over 3 months ago. In your clinical opinion is this patient being managed for: ( x ) Acute kidney failure ( ) Not Agree ( ) Other explanation of clinical findings (Please Explain) ( ) Unable to determine (Please Define) ( ) Need to Discuss The medical record reflects the following clinical findings, treatment, and risk factors. Clinical Indicators: Creatinine 2.58 trending down to 2.18 Treatment: I&O, serial PRPs, IV hydration Risk Factors: Age, CKD, vomiting, dehydration QUERY 2 OF 3 In your clinical opinion is this patient being managed for: ( x ) Chronic kidney disease, stage 3 - 4 ( ) Not Agree ( ) Other explanation of clinical findings (Please Explain) ( ) Unable to determine (Please Define) ( ) Need to Discuss The medical record reflects the following clinical findings, treatment, and risk factors. Clinical Indicators: GFR 22 trending up to 27, creatinine 2.58 trending down to 2.18 Treatment: I&O, serial PRPs, IV hydration Risk Factors: Age, vomiting, dehydration QUERY 3 OF 3 In your clinical opinion is this patient being managed for: ( x ) Protein-calorie malnutrition ( ) Not Agree ( ) Other explanation of clinical findings (Please Explain) ( ) Unable to determine (Please Define) ( ) Need to Discuss The medical record reflects the following clinical findings, treatment, and risk factors. Clinical Indicators: 50# weight loss since November,, vomiting, dehydration, abdominal pain Treatment: Daily weights, IV hydration Risk Factors: Prostate ca, age, vomiting, dehydration, difficulty swallowing Please clarify and document your clinical opinion in the progress notes and discharge summary. Terms such as "probable", "suspected", "likely", "questionable", "possible", or "still to be ruled out" are acceptable. IF IN AGREEMENT, YOU MUST DOCUMENT ABOVE DIAGNOSTIC STATEMENT IN DAILY PROGRESS NOTES AND DISCHARGE SUMMARY. This document is not part of the patient's record. Thank You, Priscila German RN [phone]
[2017-02-21 10:17] VITALS: Ht 165.1 cm; Wt 61.7 kg
[2017-02-21] MEDS ORDERED: PANTOprazole INJ 40 MG in SYRINGE 0 ML IV SCH (11:00)
[2017-02-21] MEDS: SODIUM CHLORIDE 0.9% 1000ML 1,000 ML IV SCH ×2 (11:07→15:27)
[2017-02-21] MEDS ORDERED: MINERAL OIL ENEMA 133 ML BTL PR PRN (14:45)
--- NOTE | 2017-02-21 15:05 | Hospitalist Progress Note ---
Hospitalist Progress Note Date of Service Feb 21, 2017. (Callie Arvizu ., [facility]) Subjective Pt evaluation today including: conversation w/ patient, physical exam, chart review, lab review, review of inpatient medication list Voiding: bey catheter in place Mr. Greene denies further vomiting and describes it more like reflux, no emesis. He has had two small bowel movements since admission last night per chart. ROS Constitutional: no chills, aches, sweats or fever Respiratory: no sob,cough, sputum, or wheezing Cardiac: no chest pain, palpitations, edema, orthopnea or lightheadedness GI: see HPI : no dysuria or hesitancy Extremities: no joint pain or weakness Skin: no rash All other systems reviewed and negative (Callie Arvizu CRNP) Medications Medications Administered Medications (Trade) Dose Ordered Sig/Jonathan Route Start Time Stop Time Status Last Admin Dose Admin Sodium Chloride 1,000 ml @ 125 mls/hr Q8H STAT IV 02/20/17 16:17 02/20/17 22:15 DC 02/20/17 17:47 125 MLS/HR Sodium Chloride 500 ml @ 999 mls/hr Q31M STAT IV 02/20/17 16:17 02/20/17 16:47 DC 02/20/17 16:55 999 MLS/HR Ondansetron HCl (Zofran Inj) 4 mg NOW STAT IV 02/20/17 18:33 02/20/17 18:34 DC 02/20/17 18:33 4 MG Tamsulosin HCl (Flomax Cap) 0.8 mg HS PO 02/20/17 21:00 03/22/17 20:59 02/20/17 22:51 0.8 MG Mirtazapine (Remeron Tab) 15 mg HS PO 02/20/17 21:00 03/22/17 20:59 02/20/17 22:51 15 MG Bisacodyl (Dulcolax Supp) 10 mg NOW STAT SD 02/20/17 20:07 02/20/17 20:19 DC 02/20/17 22:20 10 MG Pantoprazole Sodium 40 mg/ Syringe 10 ml @ 5 mls/min DAILY@11 IV 02/21/17 11:00 03/23/17 10:59 02/21/17 11:06 5 MLS/MIN Sodium Chloride 1,000 ml @ 100 mls/hr Q10H IV 02/20/17 22:00 03/22/17 21:59 02/21/17 11:07 100 MLS/HR Influenza Virus Vaccine (Fluzone High-Dose Pf) 0.5 ml ONCE ONCE IM. 02/21/17 08:00 02/21/17 08:01 DC 02/21/17 08:02 0.5 ML Magnesium Sulfate 1 gm/Prmx 100 ml @ 100 mls/hr NOW STAT IV 02/21/17 04:37 02/21/17 05:36 DC 02/21/17 04:44 100 MLS/HR (Callie Arvizu CRNP) Objective Vital Signs Date Time Temp Pulse Resp B/P (MAP) Pulse Ox O2 Delivery O2 Flow Rate FiO2 02/21/17 08:00 Room Air 02/21/17 07:31 36.9 88 19 104/55 (71) 96 Room Air 02/21/17 00:00 Room Air 02/20/17 22:06 36.5 93 18 98/57 96 Room Air 02/20/17 21:13 91 18 118/64 97 Room Air 02/20/17 20:42 102 18 94/58 96 Room Air 02/20/17 17:48 86 18 123/70 97 Room Air 02/20/17 16:55 97 Room Air 02/20/17 16:42 93 02/20/17 15:52 36.3 99 20 115/69 97 Room Air (Callie Arvizu CRNP) Physical Exam Notes: General: no distress Eyes: normal inspection, PERLL Respiratory: chest non tender, clear to auscultation, normal breath sounds, no respiratory distress, no accessory muscle use Cardiac: regular rate and rhythm, no rub or gallop, no murmur, no edema, no jvd GI/: active bowel sounds, no abd pain or tenderness, soft, non distended Extremities: normal range of motion, normal strength, non tender Neuro/Psych: alert and oriented x 3, normal mood and affect Skin: normal color, dry (Callie Arvizu CRNP) Laboratory Results Last 24 Hours Test 02/20/17 16:40 02/21/17 06:29 White Blood Count 6.20 K/uL 6.04 K/uL Red Blood Count 4.88 M/uL 4.11 M/uL Hemoglobin 14.2 g/dL 11.8 g/dL Hematocrit 40.8 % 34.5 % Mean Corpuscular Volume 83.6 fL 83.9 fL Mean Corpuscular Hemoglobin 29.1 pg 28.7 pg Mean Corpuscular Hemoglobin Concent 34.8 g/dl 34.2 g/dl Platelet Count 120 K/uL 79 K/uL Mean Platelet Volume 7.9 fL 7.7 fL Neutrophils (%) (Auto) 68.1 % 59.8 % Lymphocytes (%) (Auto) 18.4 % 24.8 % Monocytes (%) (Auto) 10.2 % 10.1 % Eosinophils (%) (Auto) 1.0 % 3.0 % Basophils (%) (Auto) 0.5 % 0.8 % Neutrophils # (Auto) 4.23 K/uL 3.61 K/uL Lymphocytes # (Auto) 1.14 K/uL 1.50 K/uL Monocytes # (Auto) 0.63 K/uL 0.61 K/uL Eosinophils # (Auto) 0.06 K/uL 0.18 K/uL Basophils # (Auto) 0.03 K/uL 0.05 K/uL RDW Standard Deviation 44.7 fL 45.2 fL RDW Coefficient of Variation 14.6 % 14.8 % Immature Granulocyte % (Auto) 1.8 % 1.5 % Immature Granulocyte # (Auto) 0.11 K/uL 0.09 K/uL Prothrombin Time 12.5 SECONDS Prothromb Time International Ratio 1.2 Activated Partial Thromboplast Time 31.7 SECONDS Partial Thromboplastin Ratio 1.2 Sodium Level 133 mmol/L 134 mmol/L Potassium Level 4.3 mmol/L 3.8 mmol/L Chloride Level 99 mmol/L 103 mmol/L Carbon Dioxide Level 24 mmol/L 22 mmol/L Anion Gap 10.0 mmol/L 9.0 mmol/L Blood Urea Nitrogen 36 mg/dl 29 mg/dl Creatinine 2.58 mg/dl 2.18 mg/dl Est Creatinine Clear Calc Drug Dose 18.9 ml/min 21.5 ml/min Estimated GFR () 25.5 31.3 Estimated GFR (Non- 22.0 27.0 BUN/Creatinine Ratio 13.9 13.1 Random Glucose 131 mg/dl 95 mg/dl Calcium Level 8.5 mg/dl 8.2 mg/dl Magnesium Level 1.6 mg/dl 1.8 mg/dl Total Bilirubin 0.4 mg/dl Direct Bilirubin 0.1 mg/dl Aspartate Amino Transf (AST/SGOT) 31 U/L Alanine Aminotransferase (ALT/SGPT) 16 U/L Alkaline Phosphatase 1326 U/L Total Creatine Kinase 78 U/L Creatine Kinase MB 1.3 ng/ml Creatine Kinase MB Ratio 1.7 Troponin I < 0.015 ng/ml Total Protein 7.3 gm/dl Albumin 2.9 gm/dl Lipase 142 U/L Thyroid Stimulating Hormone (TSH) 2.120 uIu/ml Platelet Estimate DECREASED (Callie Arvizu CRNP) Assessment and Plan Mr. Greene is an 81 year old man here for increased vomiting following EGD dilatation and metastatic prostate ca Vomiting - patient reports it to be more like severe reflux - possibly aggravated by severe constipation seen on CT - patient had bisacodyl suppository last evening , will order Fleet's enema for now. - consulted Dr. Harris from GI - continue IV protonix - advance diet to clear liquids as patient is no longer vomiting Prostate CA - prostate biopsy from 02/16 results showed adenocarcinoma - consulted heme onc per urology request - continue Bey catheter Acute on chronic renal failure - Creat 2.5, trending down, baseline is 1.6 - patient saw nephrology outpatient - patient had severe hydronephrosis and enlarged prostate on 02/08 imaging, kidney injury due to post renal obstruction - continue gentle IV hydration Depression - continue mirtazepine Full resuscitation, SCDs - may start chemoprophylaxis tomorrow if no intervention planned by specialists (Callie Arvizu CRNP) i personally examined pt and verified all acevedo points w S Luh ST nausea has improved at the time i see him. case d/w urology and heme/onc, input greatly appreciated vitals noted nad breathing unlabored no pallor or icterus metastatic prostate CA - start casodex. heme/onc notes performance status too risky for chemo. check MRI brain due to concern on mets as cause for nausea moderate protein/calorie malnutrition - relates to above. encourage intake as nausea improves for clarification purposes - baseline CKD appearing to be stage 3-4 (Krishan Castillo, D.O.)
[2017-02-21 15:39] VITALS: BP 92/54; PULSE 79; TEMP 36.8; O2SAT 97
--- NOTE | 2017-02-21 17:19 | Oncology Consultation ---
Oncology/Heme Consultation Date of Consultation: Feb 21, 2017. Attending Physician: Adolfo Barbosa M.D. Reason for Consultation: Metastatic prostate cancer History of Present Illness Mr. Greene is an 81 year old man with a long-standing history of BPH. He recently moved to the area and his PCP checked a PSA, which was >1000. He referred him to Dr. Gonzales, who performed a random prostate biopsy revealing [place] 8 (4+4) prostate adenocarcinoma. A bone scan earlier this week revealed widespread osseous metastatic disease. Staging CTs reveal no evidence of visceral mets. Since November, he's lost around 30 lb and has seen a marked decline in his quality of life. 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 He has no pain, aside from some mild chronic back soreness. In recent weeks, he's had progressive dysphagia and intractable nausea and vomiting, which is the reason for this admission. He had an EGD that revealed a Schatzki ring and some chronic gastritis. The stricture has been dilated, but he continues to have difficulty keeping food down. He also has urinary retention and currently has a bey. Past Medical/Surgical History Medical Problems: (1) Dehydration Status: Acute (2) Failure to thrive Status: Acute (3) Vomiting Status: Acute Social History Smoking Status: Former Smoker Smokeless Tobacco Use: No Alcohol Use: none Drug Use: none Marital Status: Occupation Status: retired Allergies Coded Allergies: No Known Allergies (Unverified , 02/20/17) Home Medications Scheduled Ciprofloxacin Tab (Cipro), 500 MG PO BID Finasteride (Propecia), 1 MG PO HS Fluconazole (Diflucan), 1 TAB PO DAILY Mirtazapine (Mirtazapine), 15 MG PO HS Omeprazole (Prilosec), 20 MG PO DAILY Ranitidine (Zantac), 300 MG PO HS Sulfa/Trimethoprim (Bactrim Ds 800MG/160MG), 1 TAB PO BID Tamsulosin Hcl (Flomax), 0.8 MG PO HS Current Inpatient Medications Current Inpatient Medications Medications (Trade) Dose Ordered Sig/Jonathan Route Start Time Stop Time Status Last Admin Dose Admin Tamsulosin HCl (Flomax Cap) 0.8 mg HS PO 02/20/17 21:00 03/22/17 20:59 02/20/17 22:51 0.8 MG Mirtazapine (Remeron Tab) 15 mg HS PO 02/20/17 21:00 03/22/17 20:59 02/20/17 22:51 15 MG Acetaminophen (Tylenol Tab) 650 mg Q4H PRN PO 02/20/17 20:15 03/22/17 20:14 Bisacodyl (Dulcolax Supp) 10 mg DAILY PRN [place] 02/20/17 20:15 03/22/17 20:14 Sodium Biphosphate/ Sodium Phosphate (Fleet Enema) 132 ml DAILY PRN [place] 02/20/17 20:15 03/22/17 20:14 Pantoprazole Sodium 40 mg/ Syringe 10 ml @ 5 mls/min DAILY@11 IV 02/21/17 11:00 03/23/17 10:59 02/21/17 11:06 5 MLS/MIN Ondansetron HCl (Zofran Odt) 8 mg Q6H PRN PO 02/20/17 20:15 03/22/17 20:14 Mineral Oil (Fleet Oil Enema) 133 ml NOW PRN [place] 02/21/17 14:45 03/23/17 14:44 Sodium Chloride 1,000 ml @ 100 mls/hr Q10H IV 02/21/17 15:15 03/23/17 15:14 02/21/17 15:27 100 MLS/HR Review of Systems Constitutional: + weight loss, + weakness, + fatigue Respiratory: No cough, No shortness of breath Cardiovascular: No chest pain Abdomen: + nausea, + vomiting, No pain Musculoskeletal: No joint pain, No muscle pain Genitourinary - Male: + urinary retention Neurologic: No weakness, No numbness/tingling Hematologic / Lymphatic: No abnormal bleeding/bruising, No swollen lymph nodes Physical Exam Date Time Temp Pulse Resp B/P (MAP) Pulse Ox O2 Delivery O2 Flow Rate FiO2 02/21/17 15:39 36.8 79 18 92/54 (67) 97 Room Air 02/21/17 08:00 Room Air 02/21/17 07:31 36.9 88 19 104/55 (71) 96 Room Air 02/21/17 00:00 Room Air 02/20/17 22:06 36.5 93 18 98/57 96 Room Air 02/20/17 21:13 91 18 118/64 97 Room Air 02/20/17 20:42 102 18 94/58 96 Room Air 02/20/17 17:48 86 18 123/70 97 Room Air General Appearance: + thin, + pertinent finding (chronically ill-appearing elderly gentleman) Eyes: EOMI, sclerae normal ENT: + pertinent finding (dry mucous membranes) Respiratory/Chest: lungs clear Cardiovascular: regular rate, rhythm Abdomen/GI: non tender, soft Extremities/Musculoskelatal: no pedal edema Neurologic/Psych: alert, oriented x 3 Laboratory Results Last 24 Hours Test 02/21/17 06:29 02/21/17 16:05 White Blood Count 6.04 K/uL Red Blood Count 4.11 M/uL Hemoglobin 11.8 g/dL Hematocrit 34.5 % Mean Corpuscular Volume 83.9 fL Mean Corpuscular Hemoglobin 28.7 pg Mean Corpuscular Hemoglobin Concent 34.2 g/dl Platelet Count 79 K/uL Mean Platelet Volume 7.7 fL Neutrophils (%) (Auto) 59.8 % Lymphocytes (%) (Auto) 24.8 % Monocytes (%) (Auto) 10.1 % Eosinophils (%) (Auto) 3.0 % Basophils (%) (Auto) 0.8 % Neutrophils # (Auto) 3.61 K/uL Lymphocytes # (Auto) 1.50 K/uL Monocytes # (Auto) 0.61 K/uL Eosinophils # (Auto) 0.18 K/uL Basophils # (Auto) 0.05 K/uL RDW Standard Deviation 45.2 fL RDW Coefficient of Variation 14.8 % Immature Granulocyte % (Auto) 1.5 % Immature Granulocyte # (Auto) 0.09 K/uL Platelet Estimate DECREASED Sodium Level 134 mmol/L Potassium Level 3.8 mmol/L Chloride Level 103 mmol/L Carbon Dioxide Level 22 mmol/L Anion Gap 9.0 mmol/L Blood Urea Nitrogen 29 mg/dl Creatinine 2.18 mg/dl Est Creatinine Clear Calc Drug Dose 21.5 ml/min Estimated GFR () 31.3 Estimated GFR (Non- 27.0 BUN/Creatinine Ratio 13.1 Random Glucose 95 mg/dl Calcium Level 8.2 mg/dl Magnesium Level 1.8 mg/dl Urine Color YELLOW Urine Appearance CLEAR Urine pH 5.5 Urine Specific [place] 1.014 Urine Protein NEG Urine Glucose (UA) NEG Urine Ketones TRACE Urine Occult Blood 3+ Urine Nitrite NEG Urine Bilirubin NEG Urine Urobilinogen NEG Urine Leukocyte Esterase SMALL Urine WBC (Auto) 5-10 /hpf Urine RBC (Auto) >30 /hpf Urine Hyaline Casts (Auto) 1-5 /lpf Urine Epithelial Cells (Auto) 10-20 /lpf Urine Bacteria (Auto) NEG Assessment & Plan Mr. Greene has widely metastatic prostate cancer. His PS is poor, which would preclude chemotherapy. I think starting with Casodex and then adding Lupron would be a safe and tolerable management strategy. This should also eventually relieve his urinary obstruction, though I suspect he will need to keep the bey for the time being. His intractable nausea and vomiting is a little unusual and doesn't seem to be adequately explained. Brain metastases in prostate cancer are rare but not unheard of, so I would check an MRI of his brain as well. He has an appointment in the office with me next week, so we can talk then about when to start the Lupron.
--- NOTE | 2017-02-21 17:39 | GASTROINTESTINAL CONSULTATION ---
DATE OF CONSULTATION: 02/21/2017 RACE: . ATTENDING PHYSICIAN: Dr. Barbosa. CONSULTING PHYSICIAN: Dr. Harris. REASON FOR CONSULTATION: Intractable vomiting. HISTORY OF PRESENT ILLNESS: Paul Greene is an 81-year-old male who underwent an upper endoscopy on February 19 secondary to esophageal dysphagia. He subsequently was found to have a Schatzki ring which was dilated to 15 mm. He also was noted to have a moderate sized hiatal hernia and some inflammation in the gastric antrum. Biopsies were performed and returned showing chronic gastritis, though no evidence of H. pylori. He was placed on twice daily PPI therapy and Carafate therapy and was discharged. He returned to the Department of Emergency Medicine on February 20 with complaints of intractable nausea and vomiting. Upon arrival, he was noted to have an H&H of 14.2 and 40.8. He also was noted to have a PT and INR of 12.5 and 1.2. His total bilirubin was 0.4 with a direct bilirubin of 0.1, AST was 31, ALT was 16 and his alkaline phosphatase was 1326. He was subsequently underwent a CT scan of the abdomen and pelvis, which showed significant findings including diffuse skeletal metastases, marked bladder wall thickening, prostatomegaly, a moderate sized hiatal hernia. He was subsequently admitted and started on IV fluids as well as Protonix 40 mg IV daily. At the time when I saw the patient, he denied any abdominal pain. He did have some intermittent nausea and vomiting yesterday, though today he is drinking jace cassy at the present time without difficulty. He states that he feels like his swallowing has improved slightly. His family who was at his bedside states that the alkaline phosphatase level is a new finding and there has been a consultation placed for oncology, though they have not seen the patient as of this time. He denies any jaundice, acholic stools, dark urine, or pruritus. He further denies any hematemesis, melena or hematochezia. He has no further complaints. PAST MEDICAL HISTORY: Significant for hypertension, history of skin cancer, Schatzki ring, hiatal hernia, chronic gastritis, dementia, and BPH. PAST SURGICAL HISTORY: Includes hernia repair. SOCIAL HISTORY: He is a former smoker, ; no current tobacco, alcohol or illicit drug use. FAMILY HISTORY: Negative for GI malignancy or inflammatory bowel disease. ALLERGIES: None. MEDICATIONS: At present include Protonix 40 mg IV daily, Flomax 0.8 mg p.o. at bedtime, Remeron 50 mg p.o. at bedtime, Tylenol 650 mg p.o. q. 4 hours p.r.n. pain or fever, Dulcolax 10 mg per rectum daily p.r.n. constipation, and Zofran 8 mg p.o. q. 6 hours p.r.n. nausea. REVIEW OF SYSTEMS: Negative 10-system review other than pertinent positives listed in the HPI. PHYSICAL EXAMINATION: VITAL SIGNS: Temp 36.8, pulse 79, respirations 18, blood pressure 92/54, pulse ox 97% on room air. GENERAL: Awake, cooperative, chronic-ill appearing, in no acute distress. HEAD: Normocephalic, atraumatic. EYES: Pupils equally round. Extraocular muscles are intact. ENT: External evaluation of ears and nose are normal and oropharynx is clear. NECK: Soft and supple. There is no JVD or lymphadenopathy. CHEST: Clear to auscultation bilaterally. CARDIOVASCULAR SYSTEM: Regular rate and rhythm. ABDOMEN: Soft, nontender, nondistended. Positive bowel sounds. EXTREMITIES: No clubbing, cyanosis, or edema. IMPRESSION: 81 yo CM who presented to the ED with Nausea, vomiting, history of Schatzki ring status post dilation, hiatal hernia, chronic gastritis and newly found elevated alkaline phosphatase with widely metastatic disease to the bones. PLAN: At the present time, I would recommend that he be continued on Protonix 40 mg IV daily. I will add Carafate suspension, he will take 1 gram p.o. q.i.d. for a total of 10 days and I would recommend consultation with oncology for further evaluation of his elevated alkaline phosphatase, though a prostate cancer would be very high on the list of causes of these findings. I do not see any other liver abnormality that would indicate a liver cause of his elevated alkaline phosphatase. I would follow his clinical course and make further recommendations as needed. Once again, thanks for allowing me to participate in the care of this patient. If you have any further questions, please do not hesitate in contacting me. DUSTIN
[2017-02-21] MEDS: TAMSULOSIN HCL 0.4 MG CAP PO SCH (20:50)
[2017-02-21] MEDS: SUCRALFATE 1 GM/10 ML UDC PO SCH (20:50)
[2017-02-21] MEDS: MIRTAZAPINE TAB 15 MG TAB PO SCH (20:51)
--- NOTE | 2017-02-21 21:05 | DIAGNOSTIC IMAGING REPORT ---
MRI OF THE BRAIN WITHOUT CONTRAST CLINICAL HISTORY: intractable nausea, metastatic cancer, eval for brain mets COMPARISON STUDY: Head CT February 20, 2017. TECHNIQUE: Utilizing a 1.5 Emeli magnet and dedicated coil, multiplanar, multiecho imaging of the brain was performed without IV contrast. FINDINGS: This exam is mildly compromised by motion artifact. There is no foci of restricted diffusion to suggest acute infarct no acute intracranial hemorrhage, midline shift or mass effect is present. Ventricular system is unremarkable for age. Basilar cisterns are patent. There are no extra-axial collections. Flow-voids for the major intracranial vessels are present. White matter T2 hyperintense foci suggest small vessel disease. There is moderate atrophy. No parenchymal lesion is identified on this unenhanced exam. Multiple foci of marrow replacement are noted within the visualized skeletal structures, most evident within the clivus and upper cervical spine. However, calvarial lesions are also noted. IMPRESSION: 1. No acute intracranial findings. 2. No parenchymal metastases identified on unenhanced exam. 3. Multifocal marrow replacement within visualized skeletal structures highly suggestive of skeletal metastatic disease. Electronically signed by: Gold Kaplan M.D. 02/21/2017 9:03 PM Dictated Date/Time: 02/21/2017 8:49 PM
[2017-02-22] MEDS: SODIUM CHLORIDE 0.9% 1000ML 1,000 ML IV SCH ×3 (01:15→21:03)
[2017-02-22] MEDS: SUCRALFATE 1 GM/10 ML UDC PO SCH ×4 (06:15→21:02)
[2017-02-22 07:04] LABS: HEMATOCRIT 34.3 % (42-52); HEMOGLOBIN 11.4 g/dL (14.0-18.0); MEAN CELL VOLUME 84.3 fL (80-100); MEAN CORPUSCULAR HGB CONC 33.2 g/dl (32-36); RED CELL DISTRIBUTION WIDTH CV 14.9 % (11.5-14.5); RED CELL DISTRIBUTION WIDTH SD 46.1 fL (36.4-46.3); WHITE BLOOD COUNT 5.71 K/uL (4.8-10.8)
[2017-02-22 07:40] LABS: BASO % 0.9 %; BASO ABS # 0.05 K/uL (0-0.2); EOS % 3.5 %; IG# 0.12 K/uL (0.00-0.02); LYMPH % 22.8 %; MEAN PLATELET VOLUME 7.7 fL (7.4-10.4); MONO % 10.9 %; MONO ABS # 0.62 K/uL (0.11-0.59); NEUT % 59.8 %; NEUT ABS # 3.42 K/uL (1.4-6.5); PLATELET COUNT 94 K/uL (130-400)
[2017-02-22 07:42] LABS: CALCIUM 7.8 mg/dl (8.5-10.1); CREATININE 1.88 mg/dl (0.60-1.40); POTASSIUM 3.7 mmol/L (3.5-5.1)
[2017-02-22 07:51] VITALS: BP 94/51; PULSE 82; TEMP 36.7; O2SAT 95
[2017-02-22] MEDS: BICALUTAMIDE 50 MG TAB PO SCH (07:57)
[2017-02-22] MEDS: MAGNESIUM SULFATE 1GM / D5W 1 GM in PREMIXED IN D5W 100 ML IV SCH ×3 (09:21→11:39)
--- NOTE | 2017-02-22 09:44 | Gastroenterology Progress Note ---
Progress Note Date of Service: Feb 22, 2017 Subjective Pt evaluation today including: conversation w/ patient, physical exam Patient is an 81 yo male with metastatic prostate cancer who is hospitalized with epigastric discomfort, nausea, & vomiting. He recently underwent an EGD earlier in the week that suggested a Schatzki ring (which was dilated) and gastritis. The patient is presently on Protonix 40 mg daily & Carafate four times daily. He reports he is feeling well this AM. He denies nausea, vomiting, or abdominal pain. He notes that he has an appointment with the oncologist next week to discuss his prostate cancer & treatment. He offers no further complaints at the present time. Review of Systems Constitutional: + weight loss, No fever Respiratory: No cough Cardiac: No chest pain Abdomen: No pain, No nausea, No vomiting Psych: No problem reported Skin: No problem reported Medications Current Inpatient Medications Medications (Trade) Dose Ordered Sig/Jonathan Route Start Time Stop Time Status Last Admin Dose Admin Tamsulosin HCl (Flomax Cap) 0.8 mg HS PO 02/20/17 21:00 03/22/17 20:59 02/21/17 20:50 0.8 MG Mirtazapine (Remeron Tab) 15 mg HS PO 02/20/17 21:00 03/22/17 20:59 02/21/17 20:51 15 MG Acetaminophen (Tylenol Tab) 650 mg Q4H PRN PO 02/20/17 20:15 03/22/17 20:14 Bisacodyl (Dulcolax Supp) 10 mg DAILY PRN [place] 02/20/17 20:15 03/22/17 20:14 Sodium Biphosphate/ Sodium Phosphate (Fleet Enema) 132 ml DAILY PRN [place] 02/20/17 20:15 03/22/17 20:14 Ondansetron HCl (Zofran Odt) 8 mg Q6H PRN PO 02/20/17 20:15 03/22/17 20:14 Mineral Oil (Fleet Oil Enema) 133 ml NOW PRN [place] 02/21/17 14:45 03/23/17 14:44 02/21/17 18:44 133 ML Sodium Chloride 1,000 ml @ 100 mls/hr Q10H IV 02/21/17 15:15 03/23/17 15:14 02/22/17 07:57 100 MLS/HR Sucralfate (Carafate Susp) 1 gm ACHS PO 02/21/17 22:00 03/03/17 19:59 02/22/17 06:15 1 GM Bicalutamide (Casodex Tab) 50 mg QAM PO 02/22/17 08:00 03/24/17 07:59 02/22/17 07:57 50 MG Magnesium Sulfate 1 gm/Prmx 100 ml @ 100 mls/hr Q1H IV 02/22/17 09:30 02/22/17 12:29 02/22/17 09:21 100 MLS/HR Pantoprazole Sodium (Protonix Tab) 40 mg QAM PO 02/22/17 11:00 03/24/17 10:59 Objective Vital Signs Date Time Temp Pulse Resp B/P (MAP) Pulse Ox O2 Delivery O2 Flow Rate FiO2 02/22/17 07:51 36.7 82 18 94/51 (65) 95 Room Air 02/22/17 00:00 Room Air 02/21/17 17:00 Room Air 02/21/17 15:39 36.8 79 18 92/54 (67) 97 Room Air Physical Exam General Appearance: no apparent distress Eyes: normal inspection, PERRL Respiratory/Chest: lungs clear Cardiovascular: regular rate, rhythm Abdomen: normal bowel sounds, non tender, soft Extremities: non-tender Neurologic/Psych: alert, oriented x 3 Skin: normal color Laboratory Results Last 24 Hours Test 02/21/17 16:05 02/22/17 06:48 Urine Color YELLOW Urine Appearance CLEAR Urine pH 5.5 Urine Specific [place] 1.014 Urine Protein NEG Urine Glucose (UA) NEG Urine Ketones TRACE Urine Occult Blood 3+ Urine Nitrite NEG Urine Bilirubin NEG Urine Urobilinogen NEG Urine Leukocyte Esterase SMALL Urine WBC (Auto) 5-10 /hpf Urine RBC (Auto) >30 /hpf Urine Hyaline Casts (Auto) 1-5 /lpf Urine Epithelial Cells (Auto) 10-20 /lpf Urine Bacteria (Auto) NEG White Blood Count 5.71 K/uL Red Blood Count 4.07 M/uL Hemoglobin 11.4 g/dL Hematocrit 34.3 % Mean Corpuscular Volume 84.3 fL Mean Corpuscular Hemoglobin 28.0 pg Mean Corpuscular Hemoglobin Concent 33.2 g/dl Platelet Count 94 K/uL Mean Platelet Volume 7.7 fL Neutrophils (%) (Auto) 59.8 % Lymphocytes (%) (Auto) 22.8 % Monocytes (%) (Auto) 10.9 % Eosinophils (%) (Auto) 3.5 % Basophils (%) (Auto) 0.9 % Neutrophils # (Auto) 3.42 K/uL Lymphocytes # (Auto) 1.30 K/uL Monocytes # (Auto) 0.62 K/uL Eosinophils # (Auto) 0.20 K/uL Basophils # (Auto) 0.05 K/uL RDW Standard Deviation 46.1 fL RDW Coefficient of Variation 14.9 % Immature Granulocyte % (Auto) 2.1 % Immature Granulocyte # (Auto) 0.12 K/uL Sodium Level 135 mmol/L Potassium Level 3.7 mmol/L Chloride Level 106 mmol/L Carbon Dioxide Level 22 mmol/L Anion Gap 7.0 mmol/L Blood Urea Nitrogen 23 mg/dl Creatinine 1.88 mg/dl Est Creatinine Clear Calc Drug Dose 24.9 ml/min Estimated GFR () 37.4 Estimated GFR (Non- 32.3 BUN/Creatinine Ratio 12.2 Random Glucose 83 mg/dl Calcium Level 7.8 mg/dl Magnesium Level 1.4 mg/dl Assessment and Plan Patient is an 81 yo male with metastatic prostate cancer and recent findings of gastritis & Schatzki ring on EGD. GI has been following for nausea & vomiting which he reports has resolved. 1) Continue Protonix 40 mg daily. Take 30 minutes prior to breakfast. 2) Carafate 1 gm four times daily before meals and at bedtime. 3) Zofran 4 mg q 6 hr prn nausea. 4) Further management and supportive care per primary team. Thank you for allowing us to participate in the care of this patient. Agree with ERIC Gooden as above Abd: Soft, NT, ND, +BS Continue current therapy
[2017-02-22] MEDS: PANTOprazole SOD 40 MG TAB PO SCH (10:34)
--- NOTE | 2017-02-22 11:11 | Hospitalist Progress Note ---
Hospitalist Progress Note Date of Service Feb 22, 2017. (Callie Arvizu CRNP) Subjective Pt evaluation today including: conversation w/ patient, physical exam, chart review, lab review, review of inpatient medication list Voiding: bey catheter in place Mr. Greene has not had any vomiting yesterday or today and is no longer feeling nauseas. He feels he could tolerate advancing his diet. He did not have a bowel movement after the Fleet's enema yesterday. He is otherwise comfortable and is not having pain ROS Constitutional: no chills, aches, sweats or fever Respiratory: no sob,cough, sputum, or wheezing Cardiac: no chest pain, palpitations, edema, orthopnea or lightheadedness GI: no abdominal pain, nausea, vomiting, diarrhea or constipation : no dysuria or hesitancy Extremities: no joint pain or weakness Skin: no rash All other systems reviewed and negative (Callie Arvizu CRNP) Medications Medications Administered Medications (Trade) Dose Ordered Sig/Jonathan Route Start Time Stop Time Status Last Admin Dose Admin Sodium Chloride 1,000 ml @ 125 mls/hr Q8H STAT IV 02/20/17 16:17 02/20/17 22:15 DC 02/20/17 17:47 125 MLS/HR Sodium Chloride 500 ml @ 999 mls/hr Q31M STAT IV 02/20/17 16:17 02/20/17 16:47 DC 02/20/17 16:55 999 MLS/HR Ondansetron HCl (Zofran Inj) 4 mg NOW STAT IV 02/20/17 18:33 02/20/17 18:34 DC 02/20/17 18:33 4 MG Tamsulosin HCl (Flomax Cap) 0.8 mg HS PO 02/20/17 21:00 03/22/17 20:59 02/21/17 20:50 0.8 MG Mirtazapine (Remeron Tab) 15 mg HS PO 02/20/17 21:00 03/22/17 20:59 02/21/17 20:51 15 MG Bisacodyl (Dulcolax Supp) 10 mg NOW STAT [place] 02/20/17 20:07 02/20/17 20:19 DC 02/20/17 22:20 10 MG Bisacodyl (Dulcolax Supp) 10 mg DAILY PRN [place] 02/20/17 20:15 03/22/17 20:14 02/22/17 10:34 10 MG Pantoprazole Sodium 40 mg/ Syringe 10 ml @ 5 mls/min DAILY@11 IV 02/21/17 11:00 02/22/17 09:06 DC 02/21/17 11:06 5 MLS/MIN Sodium Chloride 1,000 ml @ 100 mls/hr Q10H IV 02/20/17 22:00 02/21/17 15:13 DC 02/21/17 11:07 100 MLS/HR Influenza Virus Vaccine (Fluzone High-Dose Pf) 0.5 ml ONCE ONCE IM. 02/21/17 08:00 02/21/17 08:01 DC 02/21/17 08:02 0.5 ML Magnesium Sulfate 1 gm/Prmx 100 ml @ 100 mls/hr NOW STAT IV 02/21/17 04:37 02/21/17 05:36 DC 02/21/17 04:44 100 MLS/HR Mineral Oil (Fleet Oil Enema) 133 ml NOW PRN [place] 02/21/17 14:45 03/23/17 14:44 02/21/17 18:44 133 ML Sodium Chloride 1,000 ml @ 100 mls/hr Q10H IV 02/21/17 15:15 03/23/17 15:14 02/22/17 07:57 100 MLS/HR Sucralfate (Carafate Susp) 1 gm ACHS PO 02/21/17 22:00 03/03/17 19:59 02/22/17 10:34 1 GM Bicalutamide (Casodex Tab) 50 mg QAM PO 02/22/17 08:00 03/24/17 07:59 02/22/17 07:57 50 MG Magnesium Sulfate 1 gm/Prmx 100 ml @ 100 mls/hr Q1H IV 02/22/17 09:30 02/22/17 12:29 02/22/17 10:34 100 MLS/HR Pantoprazole Sodium (Protonix Tab) 40 mg QAM PO 02/22/17 11:00 03/24/17 10:59 02/22/17 10:34 40 MG (Callie Arvizu, ALMA ROSA) Objective Vital Signs Date Time Temp Pulse Resp B/P (MAP) Pulse Ox O2 Delivery O2 Flow Rate FiO2 02/22/17 08:00 Room Air 02/22/17 07:51 36.7 82 18 94/51 (65) 95 Room Air 02/22/17 00:00 Room Air 02/21/17 17:00 Room Air 02/21/17 15:39 36.8 79 18 92/54 (67) 97 Room Air (Callie Arvizu CRNP) Physical Exam Notes: General: no distress Eyes: normal inspection, PERLL Respiratory: chest non tender, clear to auscultation, normal breath sounds, no respiratory distress, no accessory muscle use Cardiac: regular rate and rhythm, no rub or gallop, no murmur, no edema, no jvd GI/: active bowel sounds, no abd pain or tenderness, soft, non distended Extremities: normal range of motion, normal strength, non tender Neuro/Psych: alert and oriented x 3, normal mood and affect Skin: normal color, dry (Callie Arvizu CRNP) Laboratory Results Last 24 Hours Test 02/21/17 16:05 02/22/17 06:48 Urine Color YELLOW Urine Appearance CLEAR Urine pH 5.5 Urine Specific [place] 1.014 Urine Protein NEG Urine Glucose (UA) NEG Urine Ketones TRACE Urine Occult Blood 3+ Urine Nitrite NEG Urine Bilirubin NEG Urine Urobilinogen NEG Urine Leukocyte Esterase SMALL Urine WBC (Auto) 5-10 /hpf Urine RBC (Auto) >30 /hpf Urine Hyaline Casts (Auto) 1-5 /lpf Urine Epithelial Cells (Auto) 10-20 /lpf Urine Bacteria (Auto) NEG White Blood Count 5.71 K/uL Red Blood Count 4.07 M/uL Hemoglobin 11.4 g/dL Hematocrit 34.3 % Mean Corpuscular Volume 84.3 fL Mean Corpuscular Hemoglobin 28.0 pg Mean Corpuscular Hemoglobin Concent 33.2 g/dl Platelet Count 94 K/uL Mean Platelet Volume 7.7 fL Neutrophils (%) (Auto) 59.8 % Lymphocytes (%) (Auto) 22.8 % Monocytes (%) (Auto) 10.9 % Eosinophils (%) (Auto) 3.5 % Basophils (%) (Auto) 0.9 % Neutrophils # (Auto) 3.42 K/uL Lymphocytes # (Auto) 1.30 K/uL Monocytes # (Auto) 0.62 K/uL Eosinophils # (Auto) 0.20 K/uL Basophils # (Auto) 0.05 K/uL RDW Standard Deviation 46.1 fL RDW Coefficient of Variation 14.9 % Immature Granulocyte % (Auto) 2.1 % Immature Granulocyte # (Auto) 0.12 K/uL Sodium Level 135 mmol/L Potassium Level 3.7 mmol/L Chloride Level 106 mmol/L Carbon Dioxide Level 22 mmol/L Anion Gap 7.0 mmol/L Blood Urea Nitrogen 23 mg/dl Creatinine 1.88 mg/dl Est Creatinine Clear Calc Drug Dose 24.9 ml/min Estimated GFR () 37.4 Estimated GFR (Non- 32.3 BUN/Creatinine Ratio 12.2 Random Glucose 83 mg/dl Calcium Level 7.8 mg/dl Magnesium Level 1.4 mg/dl (Callie Arvizu CRNP) Assessment and Plan Mr. Greene is an 81 year old man here for increased vomiting following EGD dilatation and metastatic prostate ca Vomiting - patient reports it to be more like severe reflux - possibly aggravated by severe constipation seen on CT - bisacodyl suppository this morning as Fleet's enema last night was not effective. - consulted Dr. Harris from GI - continue carafate and IV protonix. - tolerating clear liquids, will advance to full liquid diet Prostate CA - prostate biopsy from 02/16 results showed adenocarcinoma - consulted heme onc - patient not a good candidate for chemo given extensive mets and condition, started on Casodex - continue Bey catheter Acute on chronic renal failure - Creat peaked at 2.5, continues to trend down, baseline is 1.6 - patient saw nephrology outpatient - patient had severe hydronephrosis and enlarged prostate on 02/08 imaging, kidney injury due to post renal obstruction - continue gentle iv hydration Depression - continue mirtazepine Full resuscitation, SCDs and heparin bid (Callie Arvizu CRNP) i personally examined pt and verified all acevedo points pineda ST feeling better less nausea vitals noted nad breathing unlabored no pallor or icterus intractable nausea improving metastatic prostate cancer - not candidate for chemo per oncology, added casodex (Krishan Castillo D.O.)
[2017-02-22 11:15] VITALS: BP 96/41; PULSE 74; TEMP 36.8; O2SAT 95
[2017-02-22 16:28] VITALS: BP 100/48; PULSE 84; TEMP 36.9; O2SAT 95
[2017-02-22 20:53] VITALS: BP 101/51; PULSE 77; TEMP 36.9; O2SAT 95
[2017-02-22] MEDS: MIRTAZAPINE TAB 15 MG TAB PO SCH (21:02)
[2017-02-22] MEDS: TAMSULOSIN HCL 0.4 MG CAP PO SCH (21:02)
[2017-02-22] MEDS: HEPARIN SOD 5000 UNIT/0.5 ML CARP SQ SCH (21:05)
[2017-02-22 23:45] VITALS: BP 106/63; PULSE 84; TEMP 37.1; O2SAT 94
[2017-02-23 03:50] VITALS: BP 117/64; PULSE 100; TEMP 37.1; O2SAT 94
[2017-02-23] MEDS: SUCRALFATE 1 GM/10 ML UDC PO SCH ×2 (06:22→11:10)
[2017-02-23] MEDS: SODIUM CHLORIDE 0.9% 1000ML 1,000 ML IV SCH (07:11)
[2017-02-23 07:12] VITALS: BP 100/54; PULSE 84; TEMP 36.9; O2SAT 95
[2017-02-23 07:37] LABS: HEMATOCRIT 33.4 % (42-52); HEMOGLOBIN 11.4 g/dL (14.0-18.0); MEAN CELL VOLUME 83.7 fL (80-100); MEAN CORPUSCULAR HEMOGLOBIN 28.6 pg (25-34); MEAN CORPUSCULAR HGB CONC 34.1 g/dl (32-36); RED CELL DISTRIBUTION WIDTH CV 14.8 % (11.5-14.5); RED CELL DISTRIBUTION WIDTH SD 45.2 fL (36.4-46.3); WHITE BLOOD COUNT 5.98 K/uL (4.8-10.8)
[2017-02-23 07:44] LABS: BASO % 0.7 %; BASO ABS # 0.04 K/uL (0-0.2); EOS % 4.5 %; EOS ABS # 0.27 K/uL (0-0.5); IG# 0.14 K/uL (0.00-0.02); LYMPH % 32.8 %; LYMPH ABS # 1.96 K/uL (1.2-3.4); MEAN PLATELET VOLUME 7.8 fL (7.4-10.4); MONO % 10.7 %; MONO ABS # 0.64 K/uL (0.11-0.59); NEUT ABS # 2.93 K/uL (1.4-6.5); PLATELET COUNT 82 K/uL (130-400)
[2017-02-23 08:00] VITALS: O2SAT 95
[2017-02-23] MEDS: PANTOprazole SOD 40 MG TAB PO SCH (08:01)
[2017-02-23] MEDS: HEPARIN SOD 5000 UNIT/0.5 ML CARP SQ SCH (08:05)
[2017-02-23] MEDS: BICALUTAMIDE 50 MG TAB PO SCH (08:05)
[2017-02-23 08:10] LABS: CALCIUM 7.9 mg/dl (8.5-10.1); CREATININE 1.64 mg/dl (0.60-1.40); POTASSIUM 3.5 mmol/L (3.5-5.1)
[2017-02-23] MEDS ORDERED: MRLP17X PO ×2 (13:40)
[2017-02-23] MEDS ORDERED: ZFRODT/8 PO ×2 (13:40)
[2017-02-23] MEDS ORDERED: CSD50 PO ×2 (13:40)
--- NOTE | 2017-02-23 13:46 | Discharge Instructions ---
Discharge Instructions Date of Service Feb 23, 2017. Admission Reason for Admission: Intractable Nausea And Vomiting, Unintentional [facility] Discharge Discharge Diagnosis / Problem: intractable nausea/vomiting - related to constipation Discharge Goals Goal(s): Diagnostic testing, Therapeutic intervention Activity Recommendations Activity Limitations: resume your previous activity . Instructions / Follow-Up Instructions / Follow-Up metastatic prostate cancer -the initial treatment - casodex - has been started. it is a once a day pill - a prescription has been sent for you to continue this -as you follow up with Virginia Gonzales and Demian, in a few weeks (once the casodex has "gotten your body ready") he'll move to the addition of a new med - most likely lupron -follow up with Dr Gonzales and/or Demian in 1-2 weeks in this regard nausea/vomiting -appearing to be due to constipation -this has resolved - but we'll want to take steps to ensure you don't get so constipated again: -if you don't have a bowel movement take the following steps: -day 1 - either watch and wait or take one dose of miralax (if you're feeling fine, watch and wait, if you're feeling constipated take a dose of miralax) -day 2 - take a dose of miralax -day 3 - if you still haven't had a bowel movement by day three, then take 3 doses of miralax in short period of time (over a few hours at the most) - this should get your bowels moving; and if it doesn't, it would be time to be seen by a doctor to evaluate the constipation further -in addition to the constipation, it's fairly common for people to feel nauseated simply by what you're going through - so as an additional "safety net " we've added zofran (ondansetron) as a dissolving tablet that you can take as needed for nausea. you may use it up to every 6 hours as needed to settle nausea Current Hospital Diet Patient's current hospital diet: Full Liquid Diet Discharge Diet Recommended Diet: Regular Diet Pending Studies Studies pending at discharge: no Medical Emergencies . Who to Call and When: Medical Emergencies: If at any time you feel your situation is an emergency, please call 911 immediately. . Non-Emergent Contact Non-Emergency issues call your: Primary Care Provider, Oncologist, Urologist . . "Provider Documentation" section prepared by Krishan Castillo. . VTE Core Measure Inpt VTE Proph given/why not?: SCD's
[2017-02-23 13:51] VITALS: BP 100/54; PULSE 84; TEMP 36.9; O2SAT 95
--- NOTE | 2017-02-23 16:58 | Discharge Summary ---
Discharge Summary Date of Service Feb 23, 2017. Discharge Summary Admission Date: Feb 20, 2017 at 20:10 Discharge Date: Feb 23, 2017 Discharge Disposition: Home Principal Diagnosis: intractable nausea/vomiting Immunizations: Have You Had Influenza Vaccine: Unknown History of Tetanus Vaccine?: Unknown History of Pneumococcal: Unknown History of Hepatitis B Vaccine: Unknown Procedures: [~ rep ct add3]] CT SCAN OF THE ABDOMEN AND PELVIS WITHOUT CONTRAST CLINICAL HISTORY: intractable nausea and vomiting COMPARISON STUDY: Outside CT scan dated 02/08/2017 TECHNIQUE: CT scan of the abdomen and pelvis was performed from the lung bases to the proximal femurs. Images are reviewed in the axial, sagittal, and coronal planes. IV contrast was not administered for this examination. A dose lowering technique was utilized adhering to the principles of ALARA. CT DOSE: 272.00 mGy.cm FINDINGS: Lower chest: There is a moderate hiatal hernia. Liver: The unenhanced liver is normal in size, contour, and attenuation. There is no intrahepatic biliary ductal dilatation. Gallbladder: There is borderline gallbladder distention. No calculi are visualized. Spleen: Normal in size and attenuation. Pancreas: Unremarkable. Adrenal glands: Unremarkable. Kidneys: There are multiple bilateral renal masses consistent with cysts. The largest the right measures 4.8 cm. The largest on the left measures 5.2 cm. There is mild fullness of each renal pelvis, possibly secondary to long-standing bladder outlet obstruction Bowel: There are no transition zones to indicate bowel obstruction. There is extensive colonic diverticulosis. There are no acute peridiverticular inflammatory changes. There are no findings to indicate acute appendicitis. Peritoneum: There is no intraperitoneal free air or abdominal ascites. Vasculature: There is a 31 mm infrarenal abdominal aortic aneurysm. Adenopathy: None. Pelvic viscera: There is marked bladder wall thickening. There is an indwelling Berkowitz catheter. The prostate is enlarged. Skeletal structures: There is diffuse sclerotic change in the skeleton, a finding viewed highly suspicious for widespread blastic metastasis. IMPRESSION: 1. No evidence of bowel obstruction. No evidence of free air 2. Extensive diverticulosis. No evidence of acute diverticulitis 3. 31 mm infrarenal abdominal aortic aneurysm 4. 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 Correlate with prostatic specific antigen. 5. Marked bladder wall thickening. Prostamegaly. 6. Moderate hiatal hernia Electronically signed by: Ananda Garcia M.D. 02/20/2017 9:09 PM Dictated Date/Time: 02/20/2017 9:01 PM [~ rep ct add3]] MRI OF THE BRAIN WITHOUT CONTRAST CLINICAL HISTORY: intractable nausea, metastatic cancer, eval for brain mets COMPARISON STUDY: Head CT February 20, 2017. TECHNIQUE: Utilizing a 1.5 Emeli magnet and dedicated coil, multiplanar, multiecho imaging of the brain was performed without IV contrast. FINDINGS: This exam is mildly compromised by motion artifact. There is no foci of restricted diffusion to suggest acute infarct no acute intracranial hemorrhage, midline shift or mass effect is present. Ventricular system is unremarkable for age. Basilar cisterns are patent. There are no extra-axial collections. Flow-voids for the major intracranial vessels are present. White matter T2 hyperintense foci suggest small vessel disease. There is moderate atrophy. No parenchymal lesion is identified on this unenhanced exam. Multiple foci of marrow replacement are noted within the visualized skeletal structures, most evident within the clivus and upper cervical spine. However, calvarial lesions are also noted. IMPRESSION: 1. No acute intracranial findings. 2. No parenchymal metastases identified on unenhanced exam. 3. Multifocal marrow replacement within visualized skeletal structures highly suggestive of skeletal metastatic disease. Electronically signed by: Gold Kaplan M.D. 02/21/2017 9:03 PM Dictated Date/Time: 02/21/2017 8:49 PM Last Resulted CBC 02/23/17 07:23 Red Blood Count 3.99, Mean Corpuscular Volume 83.7, Mean Corpuscular Hemoglobin 28.6, Mean Corpuscular Hemoglobin Concent 34.1, Mean Platelet Volume 7.8, Neutrophils (%) (Auto) 49.0, Lymphocytes (%) (Auto) 32.8, Monocytes (%) (Auto) 10.7, Eosinophils (%) (Auto) 4.5, Basophils (%) (Auto) 0.7, Neutrophils # (Auto ) 2.93, Lymphocytes # (Auto) 1.96, Monocytes # (Auto) 0.64, Eosinophils # (Auto ) 0.27, Basophils # (Auto) 0.04 Last Resulted BMP 02/23/17 07:23 Item Value Date Time Alkaline Phosphatase 1326 U/L H 02/20/17 1640 Magnesium Level 1.7 mg/dl L 02/23/17 0723 Albumin 2.9 gm/dl L 02/20/17 1640 Lipase 142 U/L 02/20/17 1640 Thyroid Stimulating Hormone (TSH) 2.120 uIu/ml 02/20/17 1640 Medication Reconciliation New Medications: Polyethylene (Miralax) 17 Gm Pow 17 GM PO UD, #1 BTL Bicalutamide (Bicalutamide) 50 Mg Tab 50 MG PO QAM, #30 TAB Ondansetron (Ondansetron Odt) 8 Mg Soltab 8 MG PO Q6H PRN for Nausea, #30 TAB Continued Medications: Finasteride (Propecia) 1 Mg Tab 1 MG PO HS, TAB Mirtazapine (Mirtazapine) 15 Mg Tab 15 MG PO HS Omeprazole (Prilosec) 20 Mg Capcr 20 MG PO DAILY, CAP Ranitidine (Zantac) 300 Mg Tab 300 MG PO HS, TAB Tamsulosin Hcl (Flomax) 0.4 Mg Cap 0.8 MG PO HS for 30 Days, CAP 5 Refills Discontinued Medications: Ciprofloxacin Tab (Cipro) 250 Mg Tab 500 MG PO BID, TAB Fluconazole (Diflucan) 100 Mg Tab 1 TAB PO DAILY for 10 Days, #10 TAB Sulfa/Trimethoprim (Bactrim Ds 800MG/160MG) Tab 1 TAB PO BID, #6 TAB Discharge Exam Physical Exam: General Appearance: no apparent distress Eyes: EOMI ENT: hearing grossly normal Neck: trachea midline Respiratory/Chest: no respiratory distress, no accessory muscle use 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, 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 Skin: normal color, warm/dry Hospital Course nausea/vomiting -seen by GI due to prior schatzki's ring - but in the end appeared likely multifactorial but constipation playing a large role -stable for home, bowel regimen, prn zofran, PCP f/u constipation -improved -bowel regimen at home - see discharge instructions; d/w pt and then again w son Prostate CA - prostate biopsy from 02/16 results showed adenocarcinoma - consulted heme onc - patient not a good candidate for chemo given extensive mets and condition, started on Casodex - continue Berkowitz catheter - outpt f/u Acute on chronic renal failure - Creat peaked at 2.5, continues to trend down, baseline is 1.6 - patient saw nephrology outpatient - patient had severe hydronephrosis and enlarged prostate on 02/08 imaging, kidney injury due to post renal obstruction - was due to dehydration - outpt f/u Depression - continue mirtazepine Full resuscitation, SCDs and heparin bid for DVT proph while in hospital stable for home Total Time Spent: Greater than 30 minutes This includes examination of the patient, discharge planning, medication reconciliation, and communication with other providers. Discharge Instructions Please refer to the electronic Patient Visit Report (Discharge Instructions) for additional information. Additional Copies To Alexander Cárdenas M.D.; Jose Reynolds MD; Edil Gonzales D.O.
== END 2017-02-23 15:03 | disposition home or self-care (01) | DRG 392 ==
LOC: C.EDB 15:37 → C.MS4W 20:10 → ENRESERV 20:58
PROVIDERS: ADMIT Hospitalist; ATTEND Hospitalist
DX: K59.00 Constipation, unspecified (principal); N18.4 Chronic kidney disease, stage 4 (severe); N17.9 Acute kidney failure, unspecified; E44.0 Moderate protein-calorie malnutrition; C79.51 Secondary malignant neoplasm of bone; I12.9 Hypertensive chronic kidney disease with stage 1 through stage 4 chronic kidney disease, or unspecified chronic kidney disease; R11.2 Nausea with vomiting, unspecified; F32.9 Major depressive disorder, single episode, unspecified; G47.00 Insomnia, unspecified; C61 Malignant neoplasm of prostate; N40.0 Benign prostatic hyperplasia without lower urinary tract symptoms; Z79.899 Other long term (current) drug therapy; Z87.891 Personal history of nicotine dependence; Z68.22 Body mass index [BMI] 22.0-22.9, adult

== ENCOUNTER → 2017-03-13 | Day surgery (SDC) | payer OTHER ==
[2017-03-05 08:55] VITALS: BMI 24.0
[~2017-03-13] VITALS: Ht 167.6 cm; Wt 66.8 kg
[~2017-03-13] MED LIST changes: +ANDROGEN IM; +BICA50TA2 PO; -FLUC100T4 PO; +FSMD/70 PO; +LIDOCAINE HCL 2% 2 ML VIAL (20MG/ML) ONE; -MIRT15TA2 PO; +MIRT15TA53 PO; +PHENYLEPHRINE 100MCG/ML 5ML SYR ONE; +PROPOFOL IV EMULSION 10 MG/ML 20 ML VIAL IV ONE; +SODIUM CHLORIDE 0.9% 500ML 500 ML IV ONE
[2017-03-13 10:11] VITALS: Ht 167.6 cm; Wt 66.8 kg
--- NOTE | 2017-03-13 11:09 | Endo History and Physical ---
History & Physical Date of Service: Mar 13, 2017. Chief Complaint: DYSPHAGIA SCHATZKI RING Referring Physician: DR. JEWELL History of Present Illness 81 yo CM who presents for EGD secondary to dysphagia and history of Schatzki's Ring. 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) Hx Thoracic Surgery: No Hx Orthopedic: No Hx Urinary Tract Surgery: No Family History None Social History Smoking Status: Former Smoker Hx Substance Use: No Hx Alcohol Use: No Allergies Coded Allergies: No Known Allergies (Unverified , 03/13/17) Current Medications Reported Home Medications Medications Dose Route/Sig Max Daily Dose Days Date Category Fosamax+D 70MG/2800 Iu (Alendronate Sodium/Vitamin D3) 70 Mg Tab 1 Amp PO WK PRN 03/13/17 Reported [Androgen] IM PRN 03/13/17 Reported Propecia (Finasteride) 1 Mg Tab 1 Mg PO HS 02/19/17 Reported Prilosec (Omeprazole) 20 Mg Capcr 20 Mg PO QAM 02/19/17 Reported Flomax (Tamsulosin Hcl) 0.4 Mg Cap 0.8 Mg PO HS 30 02/19/17 Reported Zantac (Ranitidine HCl) 300 Mg Tab 300 Mg PO HS 02/19/17 Reported Vital Signs Weight (Kilograms): 66.82 Height (Feet): 5 Height (Inches): 6 Date Time Temp Pulse Resp B/P (MAP) Pulse Ox O2 Delivery O2 Flow Rate FiO2 03/13/17 10:18 36.5 86 20 118/71 (87) 96 Room Air Physical Exam General Appearance: WD/WN, no apparent distress Respiratory/Chest: Auscultation: breath sounds normal Cardiovascular: Heart Auscultation: RRR Abdomen: Bowel Sounds: normal Inspection & Palpation: soft, non-distended, no tenderness, guarding & rebound Assessment and Plan Assessment: 81 yo CM who presents for EGD secondary to dysphagia and history of Schatzki's Ring. Plan: Proceed with EGD.
--- NOTE | 2017-03-13 11:33 | GI REPORT ---
Procedure Date: 03/13/2017 11:06 AM Procedure: Upper GI endoscopy Indications: Dysphagia Medicines: Monitored Anesthesia Care Complications: No immediate complications. Estimated Blood Loss: Estimated blood loss: none. Procedure: Pre-Anesthesia Assessment: - Prior to the procedure, a History and Physical was performed, and patient medications and allergies were reviewed. The patient's tolerance of previous anesthesia was also reviewed. The risks and benefits of the procedure and the sedation options and risks were discussed with the patient. All questions were answered, and informed consent was obtained. Prior Anticoagulants: The patient has taken no previous anticoagulant or antiplatelet agents. ASA Grade Assessment: III - A patient with severe systemic disease. After reviewing the risks and benefits, the patient was deemed in satisfactory condition to undergo the procedure. After obtaining informed consent, the endoscope was passed under direct vision. Throughout the procedure, the patient's blood pressure, pulse, and oxygen saturations were monitored continuously. The scope was introduced through the mouth, and advanced to the second part of duodenum. The upper GI endoscopy was accomplished without difficulty. The patient tolerated the procedure well. Findings: A moderate Schatzki ring (acquired) was found at the gastroesophageal junction. A TTS dilator was passed through the scope. Dilation with a 12-13.5-15 mm x 5.5 cm CRE balloon and a 15-16.5-18 mm x 5.5 cm CRE balloon dilator was performed to 18 mm. The dilation site was examined and showed moderate improvement in luminal narrowing. A medium-sized hiatal hernia was present. The examined duodenum was normal. Impression: - Moderate Schatzki ring. Dilated. - Medium-sized hiatal hernia. - Normal examined duodenum. - No specimens collected. Recommendation: - Resume previous diet. - Continue present medications. - Repeat upper endoscopy PRN for retreatment. - Return to primary care physician as previously scheduled. Bartolo Harris DO 03/13/2017 11:33:26 AM This report has been signed electronically. Note Initiated On: 03/13/2017 11:06 AM I attest to the content of the Intraoperative Record and orders documented therein, exceptions below
[2017-03-13 12:16] VITALS: BP 120/9; PULSE 87; O2SAT 97
--- NOTE | 2017-03-13 12:38 | Discharge Instructions ---
Endoscopy Patient Instructions Date / Procedure(s) Performed Mar 13, 2017. EGD Allergy Information Coded Allergies: No Known Allergies (Unverified , 03/13/17) Discharge Date / Findings Mar 13, 2017. Schatzki's Ring s/p dilation Hiatal hernia Medication Instructions OK to resume all medications today as prescribed Reported Home Medications Medications Dose Route/Sig Max Daily Dose Days Date Category Fosamax+D 70MG/2800 Iu (Alendronate Sodium/Vitamin D3) 70 Mg Tab 1 Amp PO WK PRN 03/13/17 Reported [Androgen] IM PRN 03/13/17 Reported Propecia (Finasteride) 1 Mg Tab 1 Mg PO HS 02/19/17 Reported Prilosec (Omeprazole) 20 Mg Capcr 20 Mg PO QAM 02/19/17 Reported Flomax (Tamsulosin Hcl) 0.4 Mg Cap 0.8 Mg PO HS 30 02/19/17 Reported Zantac (Ranitidine HCl) 300 Mg Tab 300 Mg PO HS 02/19/17 Reported Provider Instructions Activity Restrictions - No exercising or heavy lifting for 24 hours. - Do not drink alcohol the day of the procedure. - Do not drive a car or operate machinery until the day after the procedure. - Do not make any important decisions or sign important papers in 24 hours after the procedure. Following Day: - Return to full activity which may include returning to work/school. Diet Start your diet with liquids and light foods (jello, soup, juice, toast). Then eat your usual diet if not nauseated. Treatment For Common After Affects For mild abdominal pain, bloating, or excessive gas: - Rest - Eat lightly - Lie on right side Follow-Up Information Follow-up with DR. JEWELL as scheduled Anesthesia Information What You Should Know You have had a procedure that required some medicine to reduce anxiety and discomfort. This treatment is called moderate sedation. After receiving the treatment, you may be sleepy, but you will be able to breathe on your own. The effects of the treatment may last for several hours. Follow these instructions along with Activity/Diet recommendations noted above: * Do NOT do anything where dizziness or clumsiness would be dangerous. * Rest quietly at home today, then you can be up and about tomorrow. * Have a responsible person stay with you the rest of today. * You may have had an I.V. today. If so, you may take the dressing off later today. Recommendations Call your doctor if: * Trouble breathing * Continuous vomiting for more than 24 hours * Temperature above 101 degrees * Severe abdominal pain or bloating * Pain not relieved by pain medicine ordered * There is increased drainage or redness from any incision * A large amount of rectal bleeding greater than 2-3 tablespoons. (If you had a polyp/s removed or have hemorrhoids, a small amount of blood - from the rectum is to be expected.) * You have any unanswered questions or concerns. IN THE EVENT OF A SERIOUS EMERGENCY, GO TO THE NEAREST EMERGENCY ROOM Your discharge instructions were prepared by provider Bartolo Harris. Patient Instructions Signature Page Paul Greene Patient (or Guardian) Signature/Date: I have read and understand the instructions given to me by my caregivers. Caregiver/RN/Doctor Signature/Date: The above-named patient and/or guardian has received patient instructions on this date. + Original Patient Signature Page (only) stays with chart. Please make copy for patient.
--- NOTE | 2017-03-13 12:53 | Anesthesiology Progress Note ---
Anesthesia Post Op Note Date & Time Mar 13, 2017 at 12:53 Vital Signs Pain Intensity: 0 Vital Signs Past 12 Hours Date Time Temp Pulse Resp B/P (MAP) Pulse Ox O2 Delivery O2 Flow Rate FiO2 03/13/17 12:16 87 20 120/9 (46) 97 Room Air 03/13/17 11:59 89 20 101/63 (76) 97 Room Air 03/13/17 11:42 75 20 94/60 (71) 94 Room Air 03/13/17 10:18 36.5 86 20 118/71 (87) 96 Room Air Notes Mental Status: alert / awake / arousable, participated in evaluation Pt Amnestic to Procedure: Yes Nausea / Vomiting: adequately controlled Pain: adequately controlled Airway Patency, RR, SpO2: stable & adequate BP & HR: stable & adequate Hydration State: stable & adequate Anesthetic Complications: no major complications apparent
== END | disposition home or self-care (01) ==
LOC: C.GI 09:33
PROVIDERS: ATTEND Internal Medicine
DX: R13.10 Dysphagia, unspecified (principal); K22.2 Esophageal obstruction; K44.9 Diaphragmatic hernia without obstruction or gangrene; Z87.891 Personal history of nicotine dependence; Z79.899 Other long term (current) drug therapy

== ENCOUNTER 2017-03-15 09:50 | Inpatient (IN) | payer OTHER ==
[~2017-03-15] VITALS: Ht 165.1 cm; Wt 65.0 kg
[~2017-03-15 09:50] MED LIST changes: -BICA50TA2 PO; -LIDOCAINE HCL 2% 2 ML VIAL (20MG/ML) ONE; -MIRT15TA53 PO; -PHENYLEPHRINE 100MCG/ML 5ML SYR ONE; -PROPOFOL IV EMULSION 10 MG/ML 20 ML VIAL IV ONE; -SODIUM CHLORIDE 0.9% 500ML 500 ML IV ONE
[2017-03-15] MEDS ORDERED: SODIUM CHLORIDE 0.9% 1000ML 1,000 ML IV STA ×2 (10:09→10:22)
[2017-03-15 10:57] LABS: BASO % 0.5 %; BASO ABS # 0.03 K/uL (0-0.2); EOS % 1.9 %; EOS ABS # 0.11 K/uL (0-0.5); HEMOGLOBIN 12.1 g/dL (14.0-18.0); IG# 0.08 K/uL (0.00-0.02); LYMPH % 22.1 %; LYMPH ABS # 1.27 K/uL (1.2-3.4); MEAN CELL VOLUME 87.1 fL (80-100); MEAN CORPUSCULAR HEMOGLOBIN 28.5 pg (25-34); MEAN CORPUSCULAR HGB CONC 32.7 g/dl (32-36); MEAN PLATELET VOLUME 7.6 fL (7.4-10.4); MONO % 9.8 %; MONO ABS # 0.56 K/uL (0.11-0.59); NEUT % 64.3 %; NEUT ABS # 3.69 K/uL (1.4-6.5); PLATELET COUNT 162 K/uL (130-400); RED CELL DISTRIBUTION WIDTH SD 53.8 fL (36.4-46.3); WHITE BLOOD COUNT 5.74 K/uL (4.8-10.8)
[2017-03-15 11:05] LABS: INR 1.1 (0.9-1.1); PTT PATIENT 27.6 SECONDS (21.0-31.0)
[2017-03-15 11:15] LABS: ALT/SGPT 23 U/L (12-78); AST/SGOT 26 U/L (15-37); BLOOD UREA NITROGEN 10 mg/dl (7-18); CARBON DIOXIDE 22 mmol/L (21-32); CREATININE 1.18 mg/dl (0.60-1.40); GLUCOSE 95 mg/dl (70-99); LIPASE 98 U/L (73-393); POTASSIUM 4.4 mmol/L (3.5-5.1); SODIUM 138 mmol/L (136-145)
[2017-03-15 11:24] LABS: INFLUENZA B ANTIGEN Neg for Influ B (NEG)
[2017-03-15 11:32] LABS: ALKALINE PHOSPHATASE 1520 U/L (45-117)
--- NOTE | 2017-03-15 11:34 | DIAGNOSTIC IMAGING REPORT ---
CHEST ONE VIEW PORTABLE CLINICAL HISTORY: 81 years-old Male presenting with weakness. TECHNIQUE: Portable upright AP view of the chest was obtained. COMPARISON: 02/20/2017. FINDINGS: Atherosclerosis of aortic arch. Tortuosity of the descending thoracic aorta. Cardiac silhouette prominent in part due to mildly low lung volumes.. Lungs and pleural spaces clear. Prominent skin fold projects over the left lung base. Osseous structures normal. Retrocardiac opacity consistent with hiatal hernia. IMPRESSION: 1. Mildly low lung volumes with hypoventilatory changes. No convincing evidence of acute cardiopulmonary disease. Electronically signed by: Mekhi Ni M.D. 03/15/2017 11:32 AM Dictated Date/Time: 03/15/2017 11:30 AM
[2017-03-15 12:08] LABS: CALCIUM < 5.0 mg/dl (8.5-10.1)
[2017-03-15] MEDS ORDERED: CALCIUM GLUCONATE 10% 10 ML VIAL IV STA (12:26)
[2017-03-15] MEDS ORDERED: CEFTRIAXONE SOD INJ 1 GM ADDVIAL IV STA (12:26)
[2017-03-15] MEDS ORDERED: MAGNESIUM SULFATE 1GM / D5W 1 GM BAG IV STA (12:26)
[2017-03-15] MEDS ORDERED: ACETAMINOPHEN 325 MG TAB PO PRN (14:15)
[2017-03-15] MEDS ORDERED: POLYETHYLENE (MIRALAX) 17 GM PACK PO PRN (15:00)
[2017-03-15] MEDS ORDERED: BISACODYL 10 MG SUPP PR PRN (15:00)
--- NOTE | 2017-03-15 15:13 | History and Physical ---
History & Physical Date & Time of Service: Mar 15, 2017 at 13:56 Chief Complaint: Weakness, Vomiting, Cancer Pt Primary Care Physician: Alexander Cárdenas M.D. History of Present Illness Source: patient, family Mr. Greene comes for weakness, shaking, and vomiting per his son the past three days. Started feeling poorly over the weekend. He had a dilatation for Schatzki 's ring on Sunday. He is apathetic with poor appetite. Shallow breathing with wheezing. Maybe slight fever He had to have a shot with Dr. Reynolds on Sunday to boost bone density and a shot to stop his testosterone. ROS Constitutional: no chills, aches, Respiratory: no sob,cough, sputum, or wheezing Cardiac: no chest pain, palpitations, edema, orthopnea or lightheadedness GI: no abdominal pain, diarrhea or constipation : no dysuria or hesitancy Extremities: no joint pain or weakness Skin: no rash All other systems reviewed and negative Past Medical/Surgical History Schatzki's ring, constipation, prostate CA with mets, JONATHAN, CKD Social History Smoking Status: Former Smoker Drug Use: none Marital Status: Housing status: lives with family (lives with son) Occupational Status: retired Immunizations History of Influenza Vaccine: Yes History of Tetanus Vaccine?: Unknown History of Pneumococcal: Unknown History of Hepatitis B Vaccine: Unknown Multi-Drug Resistant Organisms History of MDRO: No Allergies Coded Allergies: No Known Allergies (Unverified , 03/15/17) Home Medications Scheduled Finasteride (Propecia), 1 MG PO HS Omeprazole (Prilosec), 20 MG PO QAM Ranitidine (Zantac), 300 MG PO HS Tamsulosin Hcl (Flomax), 0.8 MG PO HS Scheduled PRN Alendronate/Cholecalciferol (Fosamax+D 70MG/2800 Iu), 1 AMP PO UD PRN for EVERY MONTH Physical Exam Vital Signs Date Time Temp Pulse Resp B/P (MAP) Pulse Ox O2 Delivery O2 Flow Rate FiO2 03/15/17 13:35 86 03/15/17 12:49 86 18 130/85 97 03/15/17 11:50 83 29 97 03/15/17 11:22 98 Room Air 03/15/17 11:20 87 26 98 2/1/18 11:16 139/79 03/15/17 10:50 86 34 03/15/17 10:46 85 03/15/17 09:57 36.6 85 24 112/55 97 Room Air General: no distress Eyes: normal inspection, PERLL Respiratory: chest non tender, clear to auscultation, normal breath sounds, no respiratory distress, no accessory muscle use Cardiac: regular rate and rhythm, no rub or gallop, no murmur, no edema, no jvd GI/: active bowel sounds, no abd pain or tenderness, soft, mild distention Extremities: normal range of motion, normal strength, non tender Neuro/Psych: alert and oriented x 3, normal mood and affect Skin: normal color, dry Diagnostics Laboratory Results Results Past 24 Hours Test 03/15/17 10:15 03/15/17 10:40 03/15/17 10:50 03/15/17 13:46 Range/Units Urine Color YELLOW Urine Appearance CLOUDY CLEAR Urine pH 5.5 4.5-7.5 Urine Specific [place] 1.016 1.000-1.030 Urine Protein 1+ NEG Urine Glucose (UA) NEG NEG Urine Ketones TRACE NEG Urine Occult Blood 2+ NEG Urine Nitrite NEG NEG Urine Bilirubin NEG NEG Urine Urobilinogen NEG NEG Urine Leukocyte Esterase MODERATE NEG Urine WBC (Auto) >30 0-5 /hpf Urine RBC (Auto) 10-30 0-4 /hpf Urine Hyaline Casts (Auto) 10-30 0-5 /lpf Urine Epithelial Cells (Auto) 0-5 0-5 /lpf Urine Bacteria (Auto) 1+ NEG Urine Yeast (Auto) NONE PRSENT White Blood Count 5.74 4.8-10.8 K/uL Red Blood Count 4.25 4.7-6.1 M/uL Hemoglobin 12.1 14.0-18.0 g/dL Hematocrit 37.0 42-52 % Mean Corpuscular Volume 87.1 80-100 fL Mean Corpuscular Hemoglobin 28.5 25-34 pg Mean Corpuscular Hemoglobin Concent 32.7 32-36 g/dl Platelet Count 162 130-400 K/uL Mean Platelet Volume 7.6 7.4-10.4 fL Neutrophils (%) (Auto) 64.3 % Lymphocytes (%) (Auto) 22.1 % Monocytes (%) (Auto) 9.8 % Eosinophils (%) (Auto) 1.9 % Basophils (%) (Auto) 0.5 % Neutrophils # (Auto) 3.69 1.4-6.5 K/uL Lymphocytes # (Auto) 1.27 1.2-3.4 K/uL Monocytes # (Auto) 0.56 0.11-0.59 K/uL Eosinophils # (Auto) 0.11 0-0.5 K/uL Basophils # (Auto) 0.03 0-0.2 K/uL RDW Standard Deviation 53.8 36.4-46.3 fL RDW Coefficient of Variation 17.0 11.5-14.5 % Immature Granulocyte % (Auto) 1.4 % Immature Granulocyte # (Auto) 0.08 0.00-0.02 K/uL Prothrombin Time 12.0 9.0-12.0 SECONDS Prothromb Time International Ratio 1.1 0.9-1.1 Activated Partial Thromboplast Time 27.6 21.0-31.0 SECONDS Partial Thromboplastin Ratio 1.1 Sodium Level 138 136-145 mmol/L Potassium Level 4.4 3.5-5.1 mmol/L Chloride Level 108 98-107 mmol/L Carbon Dioxide Level 22 21-32 mmol/L Anion Gap 8.0 3-11 mmol/L Blood Urea Nitrogen 10 7-18 mg/dl Creatinine 1.18 0.60-1.40 mg/dl Est Creatinine Clear Calc Drug Dose 41.3 ml/min Estimated GFR () 65.7 Estimated GFR (Non- 56.7 BUN/Creatinine Ratio 8.3 10-20 Random Glucose 95 70-99 mg/dl Calcium Level < 5.0 8.5-10.1 mg/dl Magnesium Level 1.4 1.8-2.4 mg/dl Total Bilirubin 0.7 0.2-1 mg/dl Direct Bilirubin 0.2 0-0.2 mg/dl Aspartate Amino Transf (AST/SGOT) 26 15-37 U/L Alanine Aminotransferase (ALT/SGPT) 23 12-78 U/L Alkaline Phosphatase 1520 45-117 U/L Troponin I < 0.015 0-0.045 ng/ml Total Protein 7.0 6.4-8.2 gm/dl Albumin 3.0 3.4-5.0 gm/dl Lipase 98 73-393 U/L Thyroid Stimulating Hormone (TSH) 3.690 0.300-4.500 uIu/ml Influenza Type A Antigen Neg for Influ A NEG Influenza Type B Antigen Neg for Influ B NEG Test 03/15/17 13:48 Range/Units Microbiology Results 03/15/17 Blood Culture, Ordered Pending 03/15/17 Blood Culture, Ordered Pending 03/15/17 Urine Culture, Received Pending CXR normal EKG Poor data quality, interpretation may be adversely affected Normal sinus rhythm Nonspecific ST abnormality Prolonged QT Abnormal ECG When compared with ECG of 20-FEB-2017 16:44, QT has lengthened Impression Assessment and Plan Mr. Greene is an 81 year old man here for hypercalcemia and likely UTI. Hypocalcemia - admit tele - patient received injection of Xgeva on 03/02 - hypocalcemia is listed as an adverse reaction so possible this is contributing to patient's low calcium, additionally he has not been eating much. Discussed with pharmacy - only case studies available that describe this adverse effect but appears that hypocalcemia may be able to persist for up to a month. - PTH, phos repeat prp this evening, vit D level - 1000 mg calcium gluconate given in ED, will give another 1000 mg now - Consulted nephrology - ergocalciferol, calcitriol and Tums ordered UTI - continue chronic Bey - continue Rocephin for now - check lactic, procalcitonin - patient tachypneic in the ED, though pressures are stable - UC, BC Prostate Ca with mets to bone - continue tamsulosin, finasteride Chronic constipation - patient's son reports patient has been having bowel movements however he is somewhat distended - will order KUB as hypocalcemia can exacerbate constipation issues - colace bid, prn miralax and suppositories Mel/thrush - nystatin swish and swallow, nystatin powder for groin Seborrheic dermatitis - desonide for face bid x14 days CKD - Creatinine 1.18 - avoid nephrotoxins where possible DNR Heparin subq for DVT proph Level of Care Telemetry Advanced Directives Existing Advance Directive: Yes Existing Living Will: Yes Existing Power of Heart Doctor: Yes (son Paul Greene ) Resuscitation Status DO NOT RESUSCITATE Note Attending Admission Note & Attestation: Pt seen/examined, chart reviewed, care plan d/w ALMA ROSA Arvizu. I agree w/ the acevedo components of her admission documentation except - CKD is stage 3. Pleasant 81yo male with stage 4 prostate ca (extensive bony mets) who presents w / worsening weakness and anorexia starting last Sunday. Late last week he received lupron injection for his prostate ca as well as Xgeva. Over the last couple of days he has also had vomiting. Upon ER presentation today had profound hypocalcemia with total Ca level <5. Mag also low; K wnl. u/a w/ possible UTI. PMH, PSH, allergies, meds, sochx, famhx, ros - reviewed VSS, no fever gen - surprisingly NAD, a/o x 3 skin - mel on scrotum/groin; seborrhea on face mouth - thrush on tongue neck - no JVD heart - RRR, s1, s2 lungs - CTA b/l abd - soft, NT ext - no edema neuro - strength 5/5 x 4 exts; DTRs 1+ b/l; no tetany, fasciculations or tremors Ca<5 mag 1.4 alk phos 1500 Cr 1.1 flu neg ekg - QTc prolongation A/P: 1. profound hypocalcemia - may be due to Xgeva +/- poor oral intake +/- vitamin D deficiency 2. hypomagnesemia 3. possible bey-catheter associated / complicated UTI 4. weakness, lethargy, etc - likely due to #1; cannot rule out #2, #3 contributing gave additional calcium gluconate in ER low mag replaced w/ IV mag rocephin given for possible UTI nephrology consult greatly appreciated; q6h BMPs and replace low calcium as needed with calcium gluconate tums, calcitriol added EKG in am to recheck QTc telemetry status likely will need PT, OT Kal FLEMING MD
[2017-03-15] MEDS ORDERED: CALCIUM GLUCONATE 10% 1,000 MG in SODIUM CHLORIDE 0.9% 50ML 50 ML IV STA (16:06)
[2017-03-15 16:45] VITALS: BP 133/76; PULSE 86; TEMP 36.8; O2SAT 96; BMI 23.6
[2017-03-15] MEDS ORDERED: CALCITRIOL 0.25 MCG CAP PO ONE (17:00)
[2017-03-15] MEDS ORDERED: CALCIUM CARBONATE 500 MG CHEWABLE PO ONE (17:00)
[2017-03-15] MEDS ORDERED: ERGOCALCIFEROL 50,000 INTER.UNIT CAP PO ONE (17:00)
--- NOTE | 2017-03-15 17:03 | DIAGNOSTIC IMAGING REPORT ---
KUB CLINICAL HISTORY: Abdominal distention. Weakness. Nausea and vomiting. COMPARISON STUDY: CT of the abdomen and pelvis February 20, 2017. FINDINGS: Widespread sclerotic lesions are again noted as shown on CT of February 20, 2017. A suspected bey catheter is in place. A large hiatal hernia is noted. There is no evidence for a bowel obstruction. A ktvv-on-gtcsahid amount stool is noted within the colon and rectum. IMPRESSION: 1. No evidence for a bowel obstruction. 2. Redemonstration of multifocal sclerotic lesions suggestive of blastic metastatic disease. Electronically signed by: Gold Kaplan M.D. 03/15/2017 5:02 PM Dictated Date/Time: 03/15/2017 5:00 PM
[2017-03-15] MEDS ORDERED: SODIUM PHOSPHATE 3 MMOL/1 ML INFUSION IV STA (17:22)
--- NOTE | 2017-03-15 17:23 | Nephrology Consultation ---
Nephrology Consultation Date & Providers Date of Consultation: Mar 15, 2017. Primary Care Provider: Alexander Cárdenas M.D. Referring Provider: Reason for Consultation Hypocalcemia History of Present Illness Mr. Greene is an 81-year-old male who presented to [facility] this afternoon with weakness, shaking, vomiting and emesis. Symptoms started approximately 3 days prior to presentation. Nephrology consultation was requested to assist with the management of hypocalcemia. The patient was seen and evaluated in his hospital room this evening after transfer from the ED. He reports early improvement in symptoms. Medical history is notable for metastatic prostate cancer with diffuse osseous metastatic disease. Mr. Greene presented to the nephrology clinic at [facility] in early February 2016. He was evaluated by Dr. Ciufentes for acute renal insufficiency. US revealed bilateral hydronephrosis and an enlarged prostate. Berkowitz catheter was placed and the patient was seen by Dr. Goznales in the urology clinic. Biopsy demonstrated Kalin 4+4 prostate adenocarcinoma with a PSA of 130. Bone scan confirmed diffuse osseous metastasis. Casodex was started and Mr. Greene had follow up in the hematology clinic with Dr. Reynolds to start Lupron. Denosumab was administered in the hematology clinic. Within 24 hours of the infusion, symptoms started. Serum calcium prior was ~8.5. Serum calcium on presentation to the hospital today was 5.0 (corrected for albumin 3.0 = 5.8). 2 grams of IV calcium gluconate were administered. EKG documented QTc prolongation at 522. The patient has experienced muscle spasms but not tetany. Appetite is poor. He denies significant pain. He denies any chest pain, palpitations. Review of systems is notable for progressive weight loss and recent history of urinary retention. Past Medical/Surgical History Medical: Metastatic prostate cancer BPH Recent JONATHAN due to urinary retention Hypertension Schatzki's ring Surgical: Diltation of Schatzki's ring Prostate biopsy Hernia repair Allergies Coded Allergies: No Known Allergies (Unverified , 03/15/17) Inpatient Medications Current Inpatient Medications Medications (Trade) Dose Ordered Sig/Jonathan Route Start Time Stop Time Status Last Admin Dose Admin Sodium Chloride 1,000 ml @ 125 mls/hr Q8H STAT IV 03/15/17 10:09 03/15/17 18:08 03/15/17 13:23 125 MLS/HR Acetaminophen (Tylenol Tab) 650 mg Q4H PRN PO 03/15/17 14:15 04/14/17 14:14 Tamsulosin HCl (Flomax Cap) 0.8 mg HS PO 03/15/17 21:00 04/14/17 20:59 Miscellaneous Information (Order Awaiting Action) 1 ea QS N/A 03/15/17 16:00 04/14/17 15:59 Pantoprazole Sodium (Protonix Tab) 40 mg QAM PO 03/16/17 09:00 04/15/17 08:59 Ranitidine HCl (zANTac TAB) 300 mg HS PO 03/15/17 21:00 04/14/17 20:59 Ceftriaxone Sodium 1 gm/ Dextrose 50 ml @ 100 mls/hr Q24H IV 03/16/17 14:00 03/20/17 13:59 Polyethylene (Miralax Powder Packet) 17 gm DAILY PRN PO 03/15/17 15:00 04/14/17 14:59 Docusate Sodium (coLACE CAP) 100 mg BID PO 03/15/17 21:00 04/14/17 20:59 Bisacodyl (Dulcolax Supp) 10 mg DAILY PRN ND 03/15/17 15:00 04/14/17 14:59 Heparin Sodium (Porcine) (Heparin Sq 5000 Unit/0.5ml) 5,000 unit Q12 SQ 03/15/17 21:00 04/14/17 20:59 Desonide (Desowen 0.05% Crm) 1 appln BID EXT 03/15/17 21:00 04/14/17 20:59 Nystatin (Mycostatin Susp) 5 ml QID PO 03/15/17 17:00 03/25/17 16:59 Nystatin (Mycostatin Powder) 1 appln BID EXT 03/15/17 21:00 04/14/17 20:59 Ergocalciferol (Vitamin D Cap) 50,000 interunit NOW ONCE PO 03/15/17 17:00 03/15/17 17:01 Calcitriol (Rocaltrol Cap) 0.25 mcg QAM PO 03/16/17 09:00 04/15/17 08:59 Calcitriol (Rocaltrol Cap) 0.25 mcg 1700 ONCE PO 03/15/17 17:00 03/15/17 17:01 Calcium Carbonate (Tums Chew Tab) 1,000 mg NOW ONCE PO 03/15/17 17:00 03/15/17 17:01 Calcium Carbonate (Tums Chew Tab) 1,000 mg QAM PO 03/16/17 09:00 04/15/17 08:59 Social History Smoking Status: Former Smoker Drug Use: none Marital Status: Housing Status: lives with family (lives with son) 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 Review of Systems A complete review of systems was performed. Pertinent positives are noted above. All other systems are negative. Physical Exam Date Time Temp Pulse Resp B/P (MAP) Pulse Ox O2 Delivery O2 Flow Rate FiO2 03/15/17 16:11 84 16 95 03/15/17 16:01 129/70 03/15/17 15:41 81 19 97 03/15/17 15:36 84 19 97 03/15/17 15:31 179/83 03/15/17 15:06 88 20 97 03/15/17 15:01 127/70 03/15/17 14:36 90 20 97 03/15/17 14:31 113/68 03/15/17 14:06 85 15 96 03/15/17 14:01 128/72 03/15/17 13:55 86 18 97 03/15/17 13:35 86 03/15/17 13:31 111/71 03/15/17 13:25 85 17 96 03/15/17 13:00 120/75 03/15/17 12:55 81 15 98 03/15/17 12:50 130/85 03/15/17 12:49 86 18 130/85 97 03/15/17 12:31 131/78 03/15/17 12:25 87 39 97 03/15/17 12:20 111/67 03/15/17 11:55 81 22 97 03/15/17 11:50 83 29 97 03/15/17 11:22 98 Room Air 03/15/17 11:20 87 26 98 03/15/17 11:16 139/79 03/15/17 10:50 86 34 03/15/17 10:46 85 03/15/17 09:57 36.6 85 24 112/55 97 Room Air General Appearance: no apparent distress, + thin Head: normocephalic, atraumatic Eyes: normal inspection, sclerae normal ENT: normal ENT inspection, pharynx normal Neck: supple Respiratory/Chest: lungs clear, no respiratory distress, no accessory muscle use Cardiovascular: regular rate, rhythm, no gallop Abdomen/GI: non tender, soft Back: no CVA tenderness Extremities/Musculoskelatal: normal inspection, no pedal edema Neurologic/Psych: alert, normal mood/affect Laboratory Results Last 24 Hours Test 03/15/17 10:15 03/15/17 10:40 03/15/17 10:50 03/15/17 11:39 Urine Color YELLOW Urine Appearance CLOUDY Urine pH 5.5 Urine Specific [place] 1.016 Urine Protein 1+ Urine Glucose (UA) NEG Urine Ketones TRACE Urine Occult Blood 2+ Urine Nitrite NEG Urine Bilirubin NEG Urine Urobilinogen NEG Urine Leukocyte Esterase MODERATE Urine WBC (Auto) >30 /hpf Urine RBC (Auto) 10-30 /hpf Urine Hyaline Casts (Auto) 10-30 /lpf Urine Epithelial Cells (Auto) 0-5 /lpf Urine Bacteria (Auto) 1+ Urine Yeast (Auto) White Blood Count 5.74 K/uL Red Blood Count 4.25 M/uL Hemoglobin 12.1 g/dL Hematocrit 37.0 % Mean Corpuscular Volume 87.1 fL Mean Corpuscular Hemoglobin 28.5 pg Mean Corpuscular Hemoglobin Concent 32.7 g/dl Platelet Count 162 K/uL Mean Platelet Volume 7.6 fL Neutrophils (%) (Auto) 64.3 % Lymphocytes (%) (Auto) 22.1 % Monocytes (%) (Auto) 9.8 % Eosinophils (%) (Auto) 1.9 % Basophils (%) (Auto) 0.5 % Neutrophils # (Auto) 3.69 K/uL Lymphocytes # (Auto) 1.27 K/uL Monocytes # (Auto) 0.56 K/uL Eosinophils # (Auto) 0.11 K/uL Basophils # (Auto) 0.03 K/uL RDW Standard Deviation 53.8 fL RDW Coefficient of Variation 17.0 % Immature Granulocyte % (Auto) 1.4 % Immature Granulocyte # (Auto) 0.08 K/uL Prothrombin Time 12.0 SECONDS Prothromb Time International Ratio 1.1 Activated Partial Thromboplast Time 27.6 SECONDS Partial Thromboplastin Ratio 1.1 Sodium Level 138 mmol/L Potassium Level 4.4 mmol/L Chloride Level 108 mmol/L Carbon Dioxide Level 22 mmol/L Anion Gap 8.0 mmol/L Blood Urea Nitrogen 10 mg/dl Creatinine 1.18 mg/dl Est Creatinine Clear Calc Drug Dose 41.3 ml/min Estimated GFR () 65.7 Estimated GFR (Non- 56.7 BUN/Creatinine Ratio 8.3 Random Glucose 95 mg/dl Calcium Level < 5.0 mg/dl Magnesium Level 1.4 mg/dl Total Bilirubin 0.7 mg/dl Direct Bilirubin 0.2 mg/dl Aspartate Amino Transf (AST/SGOT) 26 U/L Alanine Aminotransferase (ALT/SGPT) 23 U/L Alkaline Phosphatase 1520 U/L Troponin I < 0.015 ng/ml Total Protein 7.0 gm/dl Albumin 3.0 gm/dl Lipase 98 U/L Thyroid Stimulating Hormone (TSH) 3.690 uIu/ml Influenza Type A Antigen Neg for Influ A Influenza Type B Antigen Neg for Influ B Procalcitonin < 0.05 ng/ml Test 03/15/17 15:06 03/15/17 15:13 Lactic Acid Level 1.5 mmol/L Parathyroid Hormone (Intact) 385.1 pg/mL Phosphorus Level 1.7 mg/dl 25-Hydroxy Vitamin D Total 27.9 ng/ml Impression (1) Hypocalcemia (2) Prostate cancer (3) Hypertension Mr. 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 He developed hypocalcemia in the setting of anorexia, nausea and vomiting following treatment with Denosumab. EKG documented new QTc prolongation. 25OH D deficiency documented. The patient has received 2 grams of IV calcium gluconate. The patient has hypomagnesemia. He has received 2 gms of IV magnesium sulfate. Recommendations -- Monitor serum calcium q 6 hours and replete as needed with IV calcium gluconate 1-2 grams -- Monitor and replete K and magnesium q 6 hours -- Ergocalciferol 81844 IU now -- Calcium phosphate orally as tolerated -- nuclear monitoring technician, avoid QT prolonging medications -- Will continue to follow
[2017-03-15] MEDS: NYSTATIN SUSP 500,000 U/5 ML UDC PO SCH ×2 (17:33→20:44)
--- NOTE | 2017-03-15 17:40 | EMERGENCY ROOM VISIT NOTE ---
History Report prepared by Hiwot: Merrick Flores Under the Supervision of: Dr. Earl Jamison M.D. First contact with patient: 10:09 Chief Complaint: WEAKNESS Stated Complaint: WEAKNESS, VOMITING, CANCER PT Nursing Triage Summary: c/o this am can barely stand and vomitting and weakness for 2 days has prostate CA getting hormone shots no food for 3 days History of Present Illness The patient is a 81 year old male who presents to the Emergency Room with complaints of generalized weakness that began three days ago. He has a past medical history of prostate cancer and is currently being treated with hormone injections. He received his last injection 1 week ago. A couple of days ago, the patient began to feel generally weak. He had his esophagus stretched two days ago and has not been able to eat since. This morning he could barely stand and has been shaking. He notes that he has been intermittently vomiting over this time as well. He did receive his flu shot. Pt denies LOC, headache, fevers , chills, diaphoresis, visual changes, neck pain, chest pain, breathing difficulties, nausea, abdominal pain, back pain, melena, hematochezia, urinary symptoms, numbness, lymphadenopathy, rash, or other complaints. He notes that he has generalized itching on his entire body for about a week, but stopped three days ago. Source of History: patient Onset: three days ago Position: other (Global) Symptom Intensity: moderate Quality: other (Weakness) Timing: constant Associated Symptoms: + vomiting Note: He has been experiencing shakiness. Review of Systems See HPI for pertinent positives and negatives. A total of ten systems were reviewed and were otherwise negative. Past Medical & Surgical Medical Problems: (1) Hypertension (2) Hypocalcemia (3) Intractable nausea and vomiting (4) Prostate cancer (5) Skin cancer (6) Unintentional weight loss Surgical Problems: (1) S/P hernia repair Family History Omitted secondary to the patient's age. Social History Smoking Status: Former Smoker Drug Use: none Marital Status: Occupation Status: retired Current/Historical Medications Scheduled Finasteride (Propecia), 1 MG PO HS Omeprazole (Prilosec), 20 MG PO QAM Ranitidine (Zantac), 300 MG PO HS Tamsulosin Hcl (Flomax), 0.8 MG PO HS Scheduled PRN Alendronate/Cholecalciferol (Fosamax+D 70MG/2800 Iu), 1 AMP PO UD PRN for EVERY MONTH Allergies Coded Allergies: No Known Allergies (Unverified , 03/15/17) Physical Exam Vital Signs Date Time Temp Pulse Resp B/P (MAP) Pulse Ox O2 Delivery O2 Flow Rate FiO2 03/15/17 14:06 85 15 96 03/15/17 14:01 128/72 03/15/17 13:55 86 18 97 03/15/17 13:35 86 03/15/17 13:31 111/71 03/15/17 13:25 85 17 96 03/15/17 13:00 120/75 03/15/17 12:55 81 15 98 03/15/17 12:50 130/85 03/15/17 12:49 86 18 130/85 97 03/15/17 12:31 131/78 03/15/17 12:25 87 39 97 03/15/17 12:20 111/67 03/15/17 11:55 81 22 97 03/15/17 11:50 83 29 97 03/15/17 11:22 98 Room Air 03/15/17 11:20 87 26 98 03/15/17 11:16 139/79 03/15/17 10:50 86 34 03/15/17 10:46 85 03/15/17 09:57 36.6 85 24 112/55 97 Room Air Physical Exam GENERAL: Awake, alert, tired-appearing, in no distress HENT: Normocephalic, atraumatic. Oropharynx reveals dry mucous membranes. EYES: Normal conjunctiva. Sclera non-icteric. NECK: Supple. No nuchal rigidity. FROM. No JVD. RESPIRATORY: Clear to auscultation. CARDIAC: Regular rate, normal rhythm. Extremities warm and well perfused. Pulses equal. ABDOMEN: Soft, non-distended. No tenderness to palpation. No rebound or guarding. No masses. RECTAL: Deferred. MUSCULOSKELETAL: Chest examination reveals no tenderness. The back is symmetrical on inspection without obvious abnormality. There is no CVA tenderness to palpation. No joint edema. LOWER EXTREMITIES: Calves are equal size bilaterally and non-tender. Trace bilateral edema. No discoloration. Secondary excoriations to the shins bilaterally. NEURO: Normal sensorium. No sensory or motor deficits noted. SKIN: No rash or jaundice noted. Medical Decision & Procedures ER Provider Diagnostic Interpretation: Radiology results as stated below per my review and radiologist interpretation: CHEST ONE VIEW PORTABLE CLINICAL HISTORY: 81 years-old Male presenting with weakness. TECHNIQUE: Portable upright AP view of the chest was obtained. COMPARISON: 02/20/2017. FINDINGS: Atherosclerosis of aortic arch. Tortuosity of the descending thoracic aorta. Cardiac silhouette prominent in part due to mildly low lung volumes.. Lungs and pleural spaces clear. Prominent skin fold projects over the left lung base. Osseous structures normal. Retrocardiac opacity consistent with hiatal hernia. IMPRESSION: 1. Mildly low lung volumes with hypoventilatory changes. No convincing evidence of acute cardiopulmonary disease. Electronically signed by: Mekhi Ni M.D. 03/15/2017 11:32 AM Dictated Date/Time: 03/15/2017 11:30 AM Laboratory Results 03/15/17 10:40 Red Blood Count 4.25, Mean Corpuscular Volume 87.1, Mean Corpuscular Hemoglobin 28.5, Mean Corpuscular Hemoglobin Concent 32.7, Mean Platelet Volume 7.6, Neutrophils (%) (Auto) 64.3, Lymphocytes (%) (Auto) 22.1, Monocytes (%) (Auto) 9.8, Eosinophils (%) (Auto) 1.9, Basophils (%) (Auto) 0.5, Neutrophils # (Auto) 3.69, Lymphocytes # (Auto) 1.27, Monocytes # (Auto) 0.56, Eosinophils # (Auto) 0.11, Basophils # (Auto) 0.03 03/15/17 10:40 Test 03/15/17 10:15 03/15/17 10:40 03/15/17 10:50 03/15/17 11:39 Urine Color YELLOW Urine Appearance CLOUDY (CLEAR) Urine pH 5.5 (4.5-7.5) Urine Specific [place] 1.016 (1.000-1.030) Urine Protein 1+ (NEG) Urine Glucose (UA) NEG (NEG) Urine Ketones TRACE (NEG) Urine Occult Blood 2+ (NEG) Urine Nitrite NEG (NEG) Urine Bilirubin NEG (NEG) Urine Urobilinogen NEG (NEG) Urine Leukocyte Esterase MODERATE (NEG) Urine WBC (Auto) >30 /hpf (0-5) Urine RBC (Auto) 10-30 /hpf (0-4) Urine Hyaline Casts (Auto) 10-30 /lpf (0-5) Urine Epithelial Cells (Auto) 0-5 /lpf (0-5) Urine Bacteria (Auto) 1+ (NEG) Urine Yeast (Auto) (NONE PRSENT) White Blood Count 5.74 K/uL (4.8-10.8) Red Blood Count 4.25 M/uL (4.7-6.1) Hemoglobin 12.1 g/dL (14.0-18.0) Hematocrit 37.0 % (42-52) Mean Corpuscular Volume 87.1 fL (80-100) Mean Corpuscular Hemoglobin 28.5 pg (25-34) Mean Corpuscular Hemoglobin Concent 32.7 g/dl (32-36) Platelet Count 162 K/uL (130-400) Mean Platelet Volume 7.6 fL (7.4-10.4) Neutrophils (%) (Auto) 64.3 % Lymphocytes (%) (Auto) 22.1 % Monocytes (%) (Auto) 9.8 % Eosinophils (%) (Auto) 1.9 % Basophils (%) (Auto) 0.5 % Neutrophils # (Auto) 3.69 K/uL (1.4-6.5) Lymphocytes # (Auto) 1.27 K/uL (1.2-3.4) Monocytes # (Auto) 0.56 K/uL (0.11-0.59) Eosinophils # (Auto) 0.11 K/uL (0-0.5) Basophils # (Auto) 0.03 K/uL (0-0.2) RDW Standard Deviation 53.8 fL (36.4-46.3) RDW Coefficient of Variation 17.0 % (11.5-14.5) Immature Granulocyte % (Auto) 1.4 % Immature Granulocyte # (Auto) 0.08 K/uL (0.00-0.02) Prothrombin Time 12.0 SECONDS (9.0-12.0) Prothromb Time International Ratio 1.1 (0.9-1.1) Activated Partial Thromboplast Time 27.6 SECONDS (21.0-31.0) Partial Thromboplastin Ratio 1.1 Anion Gap 8.0 mmol/L (3-11) Est Creatinine Clear Calc Drug Dose 41.3 ml/min Estimated GFR () 65.7 Estimated GFR (Non- 56.7 BUN/Creatinine Ratio 8.3 (10-20) Calcium Level < 5.0 mg/dl (8.5-10.1) Magnesium Level 1.4 mg/dl (1.8-2.4) Total Bilirubin 0.7 mg/dl (0.2-1) Direct Bilirubin 0.2 mg/dl (0-0.2) Aspartate Amino Transf (AST/SGOT) 26 U/L (15-37) Alanine Aminotransferase (ALT/SGPT) 23 U/L (12-78) Alkaline Phosphatase 1520 U/L (45-117) Troponin I < 0.015 ng/ml (0-0.045) Total Protein 7.0 gm/dl (6.4-8.2) Albumin 3.0 gm/dl (3.4-5.0) Lipase 98 U/L (73-393) Thyroid Stimulating Hormone (TSH) 3.690 uIu/ml (0.300-4.500) Influenza Type A Antigen Neg for Influ A (NEG) Influenza Type B Antigen Neg for Influ B (NEG) Procalcitonin < 0.05 ng/ml (0-0.5) Laboratory results reviewed by me Medications Administered Medications (Trade) Dose Ordered Sig/Jonathan Route Start Time Stop Time Status Last Admin Dose Admin Sodium Chloride 1,000 ml @ 125 mls/hr Q8H STAT IV 03/15/17 10:09 03/15/17 16:58 DC 03/15/17 13:23 125 MLS/HR Sodium Chloride 1,000 ml @ 999 mls/hr Q1H1M STAT IV 03/15/17 10:22 03/15/17 11:22 DC 03/15/17 10:22 999 MLS/HR Calcium Gluconate (Calcium Gluconate 10%) 1,000 mg NOW STAT IV 03/15/17 12:26 03/15/17 12:28 DC 03/15/17 12:48 1,000 MG Magnesium Sulfate (Magnesium Sulfate) 2 gm NOW STAT IV 03/15/17 12:26 03/15/17 12:28 DC 03/15/17 13:35 2 GM Ceftriaxone Sodium (Rocephin Inj) 1 gm NOW STAT IV 03/15/17 12:26 03/15/17 12:28 DC 03/15/17 13:22 1 GM ECG Indication: weakness Rate (beats per minute): 87 Rhythm: normal sinus Findings: no acute ischemic change, prolonged QT Change: ECG interpreted by me ED Course 1009: The patient was evaluated in room C10. A complete history and physical exam was performed. 1022: Ordered Sodium Chloride 1000 ml @ 999 mls/hr IV 1226: Ordered Rocephin Inj 1 gm IV, Magnesium Sulfate 2 gm IV, Calcium Gluconate 1000 mg IV 1310: Upon reexamination, the patient was resting. I discussed the test results and treatment plan with him. I discussed the patient's case with Dr. Mazariegos of [facility]. The patient will be evaluated for further management. Medical Decision Prior records/ancillary studies reviewed and summarized above. Nursing notes reviewed and agree them. Additional history obtained from family. The patient's history was concerning for weakness. Differential diagnosis: Etiologies such as metabolic, infection, hypo/hyperglycemia, electrolyte abnormalities, cardiac sources, intracerebral event, toxicologic, neurologic, as well as others were entertained. Physical examination: As above. ER treatment provided: IV Lock Normal saline hydration Replacement of Berkowitz catheter IV calcium IV magnesium IV Rocephin On reassessment the patient felt better. Diagnostics interpretation by me: ECG: No ischemia The labs revealed an unremarkable CBC. Chemistry panel revealed unremarkable renal function however he was profoundly hypocalcemic. Hypomagnesemia present. Urinalysis concerning for infection. Imaging studies: Chest x-ray as above Consultation: A consultation was placed with the hospitalist. The case was discussed and diagnostics were reviewed. The patient was evaluated in the ER for further treatment. Medication Reconcilliation Current Medication List: was personally reviewed by me Blood Pressure Screening Patient's blood pressure: Elevated blood pressure Referred to the hospitalist Consults Time Called: 1305 Consulting Physician: Dr. Mazariegos - [facility] Returned Call: 1310 Discussed the patient's case. The patient will be evaluated for further treatment and disposition. Impression Primary Impression: Hypocalcemia Additional Impressions: Hypomagnesemia UTI (urinary tract infection) Scribe Attestation The scribe's documentation has been prepared under my direction and personally reviewed by me in its entirety. I confirm that the note above accurately reflects all work, treatment, procedures, and medical decision making performed by me. Departure Information Dispostion Being Evaluated By Hospitalist Referrals Alexander Cárdenas M.D. (PCP) Patient Instructions My [facility] Problem Qualifiers
[2017-03-15] MEDS ORDERED: SODIUM PHOSPHATE INJ 15 MMOL in SODIUM CHLORIDE 0.9% 250ML 250 ML IV ONE (18:00)
[2017-03-15 18:41] LABS: CALCIUM 5.3 mg/dl (8.5-10.1); CREATININE 1.13 mg/dl (0.60-1.40); POTASSIUM 3.8 mmol/L (3.5-5.1)
[2017-03-15 19:16] VITALS: BP 138/69; PULSE 88; TEMP 37.1; O2SAT 95
[2017-03-15] MEDS ORDERED: CALCIUM GLUCONATE 10% 2,000 MG in SODIUM CHLORIDE 0.9% 50ML 50 ML IV ONE (20:30)
[2017-03-15] MEDS: DOCUSATE SODIUM 100 MG CAP PO SCH (20:44)
[2017-03-15] MEDS: TAMSULOSIN HCL 0.4 MG CAP PO SCH (20:45)
[2017-03-15] MEDS: NYSTATIN POWDER 15GM BTL EXT SCH (20:45)
[2017-03-15] MEDS: RANITIDINE HCL 150 MG TAB PO SCH (20:45)
[2017-03-15] MEDS: DESONIDE CR 15 GM TUBE EXT SCH (20:45)
[2017-03-15] MEDS: HEPARIN SOD 5000 UNIT/0.5 ML CARP SQ SCH (20:48)
[2017-03-16] VITALS (7 sets, daily range): BP systolic 101–131; BP diastolic 61–69; PULSE 76–97; TEMP 36.6–37.2; O2SAT 94–95; Ht 165.1 cm; Wt 65.0 kg
[2017-03-16 00:55] LABS: ALBUMIN 2.6 gm/dl (3.4-5.0); BLOOD UREA NITROGEN 9 mg/dl (7-18); CARBON DIOXIDE 21 mmol/L (21-32); CREATININE 1.01 mg/dl (0.60-1.40); GLUCOSE 87 mg/dl (70-99); POTASSIUM 3.9 mmol/L (3.5-5.1); SODIUM 138 mmol/L (136-145)
[2017-03-16 01:05] LABS: CALCIUM < 5.0 mg/dl (8.5-10.1)
[2017-03-16 01:06] LABS: PHOSPHORUS 2.4 mg/dl (2.5-4.9)
[2017-03-16] MEDS ORDERED: SODIUM CHLORIDE 0.9% IV ONE (02:00)
[2017-03-16] MEDS ORDERED: CALCIUM GLUCONATE IV ONE (02:00)
[2017-03-16 07:03] LABS: HEMATOCRIT 32.9 % (42-52); HEMOGLOBIN 10.9 g/dL (14.0-18.0); MEAN CELL VOLUME 86.6 fL (80-100); MEAN CORPUSCULAR HEMOGLOBIN 28.7 pg (25-34); MEAN CORPUSCULAR HGB CONC 33.1 g/dl (32-36); MEAN PLATELET VOLUME 7.6 fL (7.4-10.4); NUCLEATED RED BLOOD CELL ABS 0.02 K/uL (0-0); PLATELET COUNT 123 K/uL (130-400); RED CELL DISTRIBUTION WIDTH CV 17.2 % (11.5-14.5); RED CELL DISTRIBUTION WIDTH SD 53.8 fL (36.4-46.3); WHITE BLOOD COUNT 5.17 K/uL (4.8-10.8)
[2017-03-16] MEDS: PANTOprazole SOD 40 MG TAB PO SCH (07:59)
[2017-03-16] MEDS: NYSTATIN SUSP 500,000 U/5 ML UDC PO SCH ×4 (07:59→20:37)
[2017-03-16] MEDS: NYSTATIN POWDER 15GM BTL EXT SCH ×2 (08:00→20:41)
[2017-03-16] MEDS: DOCUSATE SODIUM 100 MG CAP PO SCH ×2 (08:00→20:40)
[2017-03-16] MEDS: DESONIDE CR 15 GM TUBE EXT SCH ×2 (08:00→20:38)
[2017-03-16] MEDS: HEPARIN SOD 5000 UNIT/0.5 ML CARP SQ SCH ×2 (08:02→20:48)
[2017-03-16 08:04] LABS: CREATININE 0.95 mg/dl (0.60-1.40); POTASSIUM 4.1 mmol/L (3.5-5.1)
[2017-03-16] MEDS ORDERED: CALCITRIOL 0.25 MCG CAP PO SCH (09:00)
[2017-03-16] MEDS ORDERED: CALCIUM CARBONATE 500 MG CHEWABLE PO SCH (09:00)
[2017-03-16] MEDS: CALCIUM CARBONATE 500 MG CHEWABLE PO SCH ×4 (09:00→20:38)
[2017-03-16] MEDS: MAGNESIUM SULFATE 1GM / D5W 1 GM in PREMIXED IN D5W 100 ML IV SCH ×2 (09:22→10:22)
[2017-03-16] MEDS ORDERED: CALCIUM GLUCONATE 10% 2,000 MG in SODIUM CHLORIDE 0.9% 50ML 50 ML IV ONE (10:00)
--- NOTE | 2017-03-16 12:34 | Nephrology Progress Note ---
Nephrology Progress Note Date of Service Mar 16, 2017. Chief Complaint Hypocalcemia Subjective Mr. Greene was seen and evaluated in his hospital room this morning. There were no acute events overnight. The patient had no acute complaints this morning. He denied pain or shortness of breath. Appetite is good. No tetany or muscle spasms reported. Review of Systems A complete review of systems was performed. Pertinent positives are noted above. All other systems are negative. Vital Signs Last 8 Hrs Date Time Temp Pulse Resp B/P (MAP) Pulse Ox O2 Delivery O2 Flow Rate FiO2 03/16/17 12:00 Room Air 03/16/17 11:20 37.0 76 18 105/62 (76) 95 Room Air 03/16/17 08:00 Room Air 03/16/17 07:44 36.6 84 18 105/61 (76) 94 Room Air Last Recorded Weight Weight (Kilograms): 64.400 Physical Exam General Appearance: WD/WN, no apparent distress Head: normocephalic, atraumatic Eyes: normal inspection, sclerae normal ENT: normal ENT inspection, pharynx normal Neck: supple, no JVD Respiratory/Chest: lungs clear, no respiratory distress, no accessory muscle use Cardiovascular: regular rate, rhythm, no gallop Abdomen/GI: non tender, soft Extremities/Musculoskelatal: normal inspection, no pedal edema Neurologic/Psych: alert, normal mood/affect Social History Drug Use: none Marital Status: Housing Status: lives with family (lives with son) 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 03/16/17 06:50 03/15/17 17:59 03/16/17 00:15 03/16/17 06:50 Test 03/15/17 15:06 03/15/17 15:13 03/15/17 17:59 03/16/17 00:15 Lactic Acid Level 1.5 mmol/L (0.4-2.0) Parathyroid Hormone (Intact) 385.1 pg/mL (18.4-80.1) Phosphorus Level 1.7 mg/dl (2.5-4.9) 2.4 mg/dl (2.5-4.9) 25-Hydroxy Vitamin D Total 27.9 ng/ml (30-100) Anion Gap 9.0 mmol/L (3-11) 10.0 mmol/L (3-11) Est Creatinine Clear Calc Drug Dose 43.1 ml/min 48.2 ml/min Estimated GFR () 69.3 79.4 Estimated GFR (Non- 59.8 68.5 BUN/Creatinine Ratio 8.6 (10-20) 9.0 (10-20) Calcium Level 5.3 mg/dl (8.5-10.1) < 5.0 mg/dl (8.5-10.1) Magnesium Level 1.8 mg/dl (1.8-2.4) 1.7 mg/dl (1.8-2.4) Albumin 2.6 gm/dl (3.4-5.0) Test 03/16/17 06:50 03/16/17 12:12 Red Blood Count 3.80 M/uL (4.7-6.1) Mean Corpuscular Volume 86.6 fL (80-100) Mean Corpuscular Hemoglobin 28.7 pg (25-34) Mean Corpuscular Hemoglobin Concent 33.1 g/dl (32-36) RDW Standard Deviation 53.8 fL (36.4-46.3) RDW Coefficient of Variation 17.2 % (11.5-14.5) Mean Platelet Volume 7.6 fL (7.4-10.4) Nucleated RBC Absolute Count (auto) 0.02 K/uL (0-0) Nucleated Red Blood Cells % 0.3 % Anion Gap 9.0 mmol/L (3-11) Est Creatinine Clear Calc Drug Dose 51.3 ml/min Estimated GFR () 85.5 Estimated GFR (Non- 73.7 BUN/Creatinine Ratio 9.2 (10-20) Calcium Level 5.0 mg/dl (8.5-10.1) Allergies Coded Allergies: No Known Allergies (Unverified , 03/15/17) Medications Current Inpatient Medications Medications (Trade) Dose Ordered Sig/Jonathan Route Start Time Stop Time Status Last Admin Dose Admin Acetaminophen (Tylenol Tab) 650 mg Q4H PRN PO 03/15/17 14:15 04/14/17 14:14 Tamsulosin HCl (Flomax Cap) 0.8 mg HS PO 03/15/17 21:00 04/14/17 20:59 03/15/17 20:45 0.8 MG Miscellaneous Information (Order Awaiting Action) 1 ea QS N/A 03/15/17 16:00 04/14/17 15:59 Pantoprazole Sodium (Protonix Tab) 40 mg QAM PO 03/16/17 09:00 04/15/17 08:59 03/16/17 07:59 40 MG Ranitidine HCl (zANTac TAB) 300 mg HS PO 03/15/17 21:00 04/14/17 20:59 03/15/17 20:45 300 MG Ceftriaxone Sodium 1 gm/ Dextrose 50 ml @ 100 mls/hr Q24H IV 03/16/17 14:00 03/20/17 13:59 Polyethylene (Miralax Powder Packet) 17 gm DAILY PRN PO 03/15/17 15:00 04/14/17 14:59 Docusate Sodium (coLACE CAP) 100 mg BID PO 03/15/17 21:00 04/14/17 20:59 03/16/17 08:00 100 MG Bisacodyl (Dulcolax Supp) 10 mg DAILY PRN AL 03/15/17 15:00 04/14/17 14:59 Heparin Sodium (Porcine) (Heparin Sq 5000 Unit/0.5ml) 5,000 unit Q12 SQ 03/15/17 21:00 04/14/17 20:59 03/16/17 08:02 5,000 UNIT Desonide (Desowen 0.05% Crm) 1 appln BID EXT 03/15/17 21:00 04/14/17 20:59 03/16/17 08:00 1 APPLN Nystatin (Mycostatin Susp) 5 ml QID PO 03/15/17 17:00 03/25/17 16:59 03/16/17 07:59 5 ML Nystatin (Mycostatin Powder) 1 appln BID EXT 03/15/17 21:00 04/14/17 20:59 03/16/17 08:00 1 APPLN Calcium Carbonate (Tums Chew Tab) 1,000 mg QID PO 03/16/17 09:00 04/15/17 08:59 Impression (1) Hypocalcemia (2) Prostate cancer (3) Hypertension Mr. 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 He developed hypocalcemia following treatment with Denosumab. EKG documented new QTc prolongation. 25OH D deficiency documented. The patient has received ~8 grams of IV calcium gluconate. The patient has hypomagnesemia. This is being treated with IV magnesium sulfate. Recommendations -- Monitor serum calcium q 6 hours and replete as needed with IV calcium gluconate -- Monitor and replete K and magnesium q 6 hours -- Calcium carbonate 1000 Q 4-6 hours (not to be taken with meals -- conveyor monitor, avoid QT prolonging medications -- Will continue to follow
[2017-03-16 13:25] LABS: CALCIUM 5.6 mg/dl (8.5-10.1); CREATININE 1.12 mg/dl (0.60-1.40); PHOSPHORUS 1.8 mg/dl (2.5-4.9)
[2017-03-16] MEDS ORDERED: CEFTRIAXONE SOD INJ 1 GM in DEXTROSE 5% ADD-VANTAGE 50ML 50 ML IV SCH (14:00)
[2017-03-16] MEDS ORDERED: CALCIUM GLUCONATE 10% 2,000 MG in SODIUM CHLORIDE 0.9% 50ML 50 ML IV STA ×2 (15:23→15:28)
[2017-03-16] MEDS ORDERED: SODIUM PHOSPHATE 3 MMOL/1 ML INFUSION IV STA (15:24)
[2017-03-16] MEDS ORDERED: SODIUM PHOSPHATE INJ 21 MMOL in SODIUM CHLORIDE 0.9% 500ML 500 ML IV ONE (15:30)
[2017-03-16] MEDS: POT PHOSPHATE MONOBASIC W/ SOD TAB PO SCH ×2 (16:45→20:39)
--- NOTE | 2017-03-16 16:47 | Family Medicine Progress Note ---
Progress Note Date of Service Mar 16, 2017. Subjective Pt evaluation today including: conversation w/ patient, physical exam, chart review, conversation w/ product safety consultant, review of inpatient medication list Pain: none PO Intake: good Voiding: no voiding problems Patient feeling well and without any complaints Denies any muscle spasms, tetany, confusion or headaches Constitutional: No fever, No chills Respiratory: No cough, No sputum, No shortness of breath Cardiovascular: No chest pain, No edema, No palpitations Abdomen: No pain, No nausea, No vomiting, No diarrhea Musculoskeletal: No joint pain, No muscle pain, No calf pain Male : No dysuria, No urinary frequency Neurologic: No weakness, No numbness/tingling Skin: No new/changing skin lesions Medications Current Inpatient Medications Medications (Trade) Dose Ordered Sig/Jonathan Route Start Time Stop Time Status Last Admin Dose Admin Acetaminophen (Tylenol Tab) 650 mg Q4H PRN PO 03/15/17 14:15 04/14/17 14:14 Tamsulosin HCl (Flomax Cap) 0.8 mg HS PO 03/15/17 21:00 04/14/17 20:59 03/15/17 20:45 0.8 MG Miscellaneous Information (Order Awaiting Action) 1 ea QS N/A 03/15/17 16:00 04/14/17 15:59 Pantoprazole Sodium (Protonix Tab) 40 mg QAM PO 03/16/17 09:00 04/15/17 08:59 03/16/17 07:59 40 MG Ranitidine HCl (zANTac TAB) 300 mg HS PO 03/15/17 21:00 04/14/17 20:59 03/15/17 20:45 300 MG Ceftriaxone Sodium 1 gm/ Dextrose 50 ml @ 100 mls/hr Q24H IV 03/16/17 14:00 03/20/17 13:59 03/16/17 13:03 100 MLS/HR Polyethylene (Miralax Powder Packet) 17 gm DAILY PRN PO 03/15/17 15:00 04/14/17 14:59 Docusate Sodium (coLACE CAP) 100 mg BID PO 03/15/17 21:00 04/14/17 20:59 03/16/17 08:00 100 MG Bisacodyl (Dulcolax Supp) 10 mg DAILY PRN [place] 03/15/17 15:00 04/14/17 14:59 Heparin Sodium (Porcine) (Heparin Sq 5000 Unit/0.5ml) 5,000 unit Q12 SQ 03/15/17 21:00 04/14/17 20:59 03/16/17 08:02 5,000 UNIT Desonide ([place] 0.05% Crm) 1 appln BID EXT 03/15/17 21:00 04/14/17 20:59 03/16/17 08:00 1 APPLN Nystatin (Mycostatin Susp) 5 ml QID PO 03/15/17 17:00 03/25/17 16:59 03/16/17 13:00 5 ML Nystatin (Mycostatin Powder) 1 appln BID EXT 03/15/17 21:00 04/14/17 20:59 03/16/17 08:00 1 APPLN Calcium Carbonate (Tums Chew Tab) 2,000 mg QID PO 03/16/17 17:00 04/15/17 08:59 Potassium/ Phosphorus/Sodium (Phospha 250 Neutral 155-852-130 Mg) 1 tab QID PO 03/16/17 17:00 04/15/17 16:59 Sodium Phosphate 21 mmol/Sodium Chloride 507 ml @ 144 mls/hr ONE ONCE IV 03/16/17 15:30 03/16/17 19:01 03/16/17 15:47 144 MLS/HR Objective Vital Signs Date Time Temp Pulse Resp B/P (MAP) Pulse Ox O2 Delivery O2 Flow Rate FiO2 03/16/17 16:00 Room Air 03/16/17 15:35 36.8 84 18 118/68 (85) 95 Room Air 03/16/17 12:00 Room Air 03/16/17 11:20 37.0 76 18 105/62 (76) 95 Room Air 03/16/17 08:00 Room Air 03/16/17 07:44 36.6 84 18 105/61 (76) 94 Room Air 03/16/17 04:00 Room Air 03/16/17 03:16 37.2 82 20 131/69 (89) 95 Room Air 03/16/17 00:01 36.8 82 20 118/66 (83) 94 Room Air 03/16/17 00:01 Room Air 03/15/17 20:00 Room Air 03/15/17 19:16 37.1 88 20 138/69 (92) 95 Room Air 03/15/17 16:45 36.8 86 20 133/76 96 Room Air Physical Exam General Appearance: WD/WN, no apparent distress Neck: no JVD, no carotid bruits, trachea midline Respiratory/Chest: lungs clear, no respiratory distress, no accessory muscle use Cardiovascular: regular rate, rhythm, no JVD, no murmur Abdomen: normal bowel sounds, non tender, soft Extremities: non-tender, no pedal edema, no calf tenderness, + pertinent finding (Left hand with 4th and 5th digit hyperflexed (chronic problem)) Neurologic/Psychiatric: alert, normal mood/affect, oriented x 3 Laboratory Results Results Past 24 Hours Test 03/15/17 17:59 03/16/17 00:15 03/16/17 06:50 03/16/17 12:12 Range/Units Sodium Level 137 138 137 137 136-145 mmol/L Potassium Level 3.8 3.9 4.1 4.0 3.5-5.1 mmol/L Chloride Level 107 107 107 106 98-107 mmol/L Carbon Dioxide Level 21 21 21 23 21-32 mmol/L Anion Gap 9.0 10.0 9.0 8.0 3-11 mmol/L Blood Urea Nitrogen 10 9 9 9 7-18 mg/dl Creatinine 1.13 1.01 0.95 1.12 0.60-1.40 mg/dl Est Creatinine Clear Calc Drug Dose 43.1 48.2 51.3 43.5 ml/min Estimated GFR () 69.3 79.4 85.5 70.0 Estimated GFR (Non- 59.8 68.5 73.7 60.4 BUN/Creatinine Ratio 8.6 9.0 9.2 7.7 10-20 Random Glucose 147 87 84 131 70-99 mg/dl Calcium Level 5.3 < 5.0 5.0 5.6 8.5-10.1 mg/dl Magnesium Level 1.8 1.7 2.3 1.8-2.4 mg/dl Phosphorus Level 2.4 1.8 2.5-4.9 mg/dl Albumin 2.6 3.4-5.0 gm/dl White Blood Count 5.17 4.8-10.8 K/uL Red Blood Count 3.80 4.7-6.1 M/uL Hemoglobin 10.9 14.0-18.0 g/dL Hematocrit 32.9 42-52 % Mean Corpuscular Volume 86.6 80-100 fL Mean Corpuscular Hemoglobin 28.7 25-34 pg Mean Corpuscular Hemoglobin Concent 33.1 32-36 g/dl RDW Standard Deviation 53.8 36.4-46.3 fL RDW Coefficient of Variation 17.2 11.5-14.5 % Platelet Count 123 130-400 K/uL Mean Platelet Volume 7.6 7.4-10.4 fL Nucleated RBC Absolute Count (auto) 0.02 0-0 K/uL Nucleated Red Blood Cells % 0.3 % Assessment and Plan Mr. Greene is an 81 year old man here for hypercalcemia and likely UTI. Hypocalcemia - admit tele - patient received injection of Xgeva on 03/02 - hypocalcemia is listed as an adverse reaction - Vit D decreased - supplementation given by Nephro - Has received 9 grams of calcium gluconate thus far ----> continue to supplement as needed - Mag was 1.7 therefore 2 grams IV given and phos low therefore 21mmol given IV - Calcium carbonate 1000 q4-6 - monitor on tele due to qt prolongation ---> come down to 492 from 522, repeat EKG in the morning - check calcium levels q6 UTI - continue chronic Berkowitz - continue Rocephin for now - await urine culture results Prostate Ca with mets to bone - continue tamsulosin, finasteride Chronic constipation - colace bid, prn miralax and suppositories Emiliana/thrush - nystatin swish and swallow, nystatin powder for groin Seborrheic dermatitis - desonide for face bid x14 days CKD - Creatinine 1.12 - avoid nephrotoxins where possible DNR -Heparin subq for DVT proph Dispo: PT/OT DNR Resident Physician Supervision Note: I was present with Dr. Alberto during the history and exam. I discussed the case with the resident and agree with the findings and plan as documented in the note. I also discussed the case with nephrology product safety consultant. Documented By: Elia Jones Continued [facility] stay due to: multiple IV medications needed Discharge planning: home, uncertain
[2017-03-16] MEDS ORDERED: CALCIUM GLUCONATE 10% 1,000 MG in SODIUM CHLORIDE 0.9% 50ML 50 ML IV STA (17:12)
[2017-03-16 19:09] LABS: CALCIUM 5.8 mg/dl (8.5-10.1); CREATININE 1.21 mg/dl (0.60-1.40); PHOSPHORUS 2.2 mg/dl (2.5-4.9); POTASSIUM 3.6 mmol/L (3.5-5.1)
[2017-03-16] MEDS ORDERED: NURSING VERBAL MED ORDER ONE (19:30)
[2017-03-16] MEDS ORDERED: CALCIUM GLUCONATE 10% 1,000 MG in SODIUM CHLORIDE 0.9% 50ML 50 ML IV ONE (19:45)
[2017-03-16] MEDS: TAMSULOSIN HCL 0.4 MG CAP PO SCH (20:41)
[2017-03-16] MEDS: RANITIDINE HCL 150 MG TAB PO SCH (20:41)
[2017-03-17] VITALS (7 sets, daily range): BP systolic 110–148; BP diastolic 53–78; PULSE 83–96; TEMP 36.7–37.9; O2SAT 92–96
[2017-03-17 02:08] LABS: CALCIUM 5.3 mg/dl (8.5-10.1); CREATININE 1.02 mg/dl (0.60-1.40); POTASSIUM 3.8 mmol/L (3.5-5.1)
[2017-03-17] MEDS ORDERED: NURSING VERBAL MED ORDER ONE (03:45)
[2017-03-17] MEDS ORDERED: CALCIUM GLUCONATE 10% 1,000 MG in SODIUM CHLORIDE 0.9% 50ML 50 ML IV STA ×2 (04:32→19:39)
[2017-03-17 07:14] LABS: HEMATOCRIT 34.4 % (42-52); HEMOGLOBIN 10.9 g/dL (14.0-18.0); MEAN CORPUSCULAR HEMOGLOBIN 27.3 pg (25-34); MEAN CORPUSCULAR HGB CONC 31.7 g/dl (32-36); MEAN PLATELET VOLUME 7.9 fL (7.4-10.4); PLATELET COUNT 155 K/uL (130-400); RED CELL DISTRIBUTION WIDTH SD 53.3 fL (36.4-46.3); WHITE BLOOD COUNT 5.93 K/uL (4.8-10.8)
[2017-03-17 07:49] LABS: CALCIUM 5.3 mg/dl (8.5-10.1); CREATININE 0.99 mg/dl (0.60-1.40); POTASSIUM 4.1 mmol/L (3.5-5.1)
[2017-03-17] MEDS: DOCUSATE SODIUM 100 MG CAP PO SCH ×2 (08:06→20:35)
[2017-03-17] MEDS: PANTOprazole SOD 40 MG TAB PO SCH (08:06)
[2017-03-17] MEDS: POT PHOSPHATE MONOBASIC W/ SOD TAB PO SCH ×4 (08:07→20:34)
[2017-03-17] MEDS: CALCIUM CARBONATE 500 MG CHEWABLE PO SCH ×4 (08:07→20:34)
[2017-03-17] MEDS: DESONIDE CR 15 GM TUBE EXT SCH ×2 (08:08→20:38)
[2017-03-17] MEDS: NYSTATIN POWDER 15GM BTL EXT SCH ×2 (08:08→20:37)
[2017-03-17] MEDS: NYSTATIN SUSP 500,000 U/5 ML UDC PO SCH ×4 (08:08→20:33)
[2017-03-17] MEDS: HEPARIN SOD 5000 UNIT/0.5 ML CARP SQ SCH ×2 (08:11→20:52)
[2017-03-17] MEDS ORDERED: CALCIUM GLUCONATE IV ONE ×3 (09:00→15:00)
[2017-03-17] MEDS: MAGNESIUM SULFATE 1GM / D5W 1 GM in PREMIXED IN D5W 100 ML IV SCH ×2 (09:00→10:25)
[2017-03-17] MEDS ORDERED: SODIUM CHLORIDE 0.9% IV ONE ×3 (09:00→15:00)
[2017-03-17] MEDS ORDERED: CHOLECALCIFEROL 1000 INTER.UNIT TAB PO ONE (09:42)
[2017-03-17] MEDS ORDERED: CALCITRIOL 0.25 MCG CAP PO ONE (09:45)
--- NOTE | 2017-03-17 11:00 | Nephrology Progress Note ---
Nephrology Progress Note Date of Service Mar 17, 2017. Chief Complaint Hypocalcemia Subjective No acute events overnight. Paul is resting comfortably in bed this morning. Appetite is good. He denies tetany or muscle spasms. He denies pain. Paul remains on tele monitor. QTc improved to 400. The plan of care was discussed with the Family Medicine team. Review of Systems A complete review of systems was performed. Pertinent positives are noted above. All other systems are negative. Vital Signs Last 8 Hrs Date Time Temp Pulse Resp B/P (MAP) Pulse Ox O2 Delivery O2 Flow Rate FiO2 03/17/17 08:00 Room Air 03/17/17 07:42 37.0 84 20 126/74 (91) 92 Room Air 03/17/17 04:00 Room Air 03/17/17 03:40 36.9 88 17 148/78 (101) 95 Room Air Last Recorded Weight Weight (Kilograms): 64.600 Physical Exam General Appearance: WD/WN, no apparent distress Head: normocephalic, atraumatic Eyes: normal inspection, sclerae normal ENT: normal ENT inspection, pharynx normal Neck: supple, no JVD Respiratory/Chest: lungs clear, no respiratory distress, no accessory muscle use Cardiovascular: regular rate, rhythm, no gallop Abdomen/GI: non tender, soft Extremities/Musculoskelatal: normal inspection, no pedal edema Neurologic/Psych: alert, normal mood/affect Social History Drug Use: none Marital Status: Housing Status: lives with family (lives with son) 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 03/17/17 06:49 03/16/17 12:12 03/16/17 18:18 03/17/17 00:27 03/17/17 06:49 Test 03/16/17 12:12 03/16/17 18:18 03/17/17 00:27 03/17/17 06:49 Anion Gap 8.0 mmol/L (3-11) 8.0 mmol/L (3-11) 8.0 mmol/L (3-11) 9.0 mmol/L (3-11) Est Creatinine Clear Calc Drug Dose 43.5 ml/min 40.2 ml/min 47.7 ml/min 49.2 ml/min Estimated GFR () 70.0 63.8 78.4 81.3 Estimated GFR (Non- 60.4 55.0 67.7 70.1 BUN/Creatinine Ratio 7.7 (10-20) 6.5 (10-20) 7.7 (10-20) 6.6 (10-20) Calcium Level 5.6 mg/dl (8.5-10.1) 5.8 mg/dl (8.5-10.1) 5.3 mg/dl (8.5-10.1) 5.3 mg/dl (8.5-10.1) Phosphorus Level 1.8 mg/dl (2.5-4.9) 2.2 mg/dl (2.5-4.9) 3.0 mg/dl (2.5-4.9) Magnesium Level 2.3 mg/dl (1.8-2.4) 2.0 mg/dl (1.8-2.4) 1.7 mg/dl (1.8-2.4) Red Blood Count 4.00 M/uL (4.7-6.1) Mean Corpuscular Volume 86.0 fL (80-100) Mean Corpuscular Hemoglobin 27.3 pg (25-34) Mean Corpuscular Hemoglobin Concent 31.7 g/dl (32-36) RDW Standard Deviation 53.3 fL (36.4-46.3) RDW Coefficient of Variation 17.0 % (11.5-14.5) Mean Platelet Volume 7.9 fL (7.4-10.4) Date/Time Source Procedure Growth Status 03/16/17 17:30 Nasal MRSA DNA Surveillance Screen - Final Specimen Negative for MRSA by DNA Probe Complete Allergies Coded Allergies: No Known Allergies (Unverified , 03/15/17) Medications Current Inpatient Medications Medications (Trade) Dose Ordered Sig/Jonathan Route Start Time Stop Time Status Last Admin Dose Admin Acetaminophen (Tylenol Tab) 650 mg Q4H PRN PO 03/15/17 14:15 04/14/17 14:14 Tamsulosin HCl (Flomax Cap) 0.8 mg HS PO 03/15/17 21:00 04/14/17 20:59 03/16/17 20:41 0.8 MG Miscellaneous Information (Order Awaiting Action) 1 ea QS N/A 03/15/17 16:00 04/14/17 15:59 Pantoprazole Sodium (Protonix Tab) 40 mg QAM PO 03/16/17 09:00 04/15/17 08:59 03/17/17 08:06 40 MG Ranitidine HCl (zANTac TAB) 300 mg HS PO 03/15/17 21:00 04/14/17 20:59 03/16/17 20:41 300 MG Ceftriaxone Sodium 1 gm/ Dextrose 50 ml @ 100 mls/hr Q24H IV 03/16/17 14:00 03/20/17 13:59 03/16/17 13:03 100 MLS/HR Polyethylene (Miralax Powder Packet) 17 gm DAILY PRN PO 03/15/17 15:00 04/14/17 14:59 Docusate Sodium (coLACE CAP) 100 mg BID PO 03/15/17 21:00 04/14/17 20:59 03/17/17 08:06 100 MG Bisacodyl (Dulcolax Supp) 10 mg DAILY PRN [place] 03/15/17 15:00 04/14/17 14:59 Heparin Sodium (Porcine) (Heparin Sq 5000 Unit/0.5ml) 5,000 unit Q12 SQ 03/15/17 21:00 04/14/17 20:59 03/17/17 08:11 5,000 UNIT Desonide (Desowen 0.05% Crm) 1 appln BID EXT 03/15/17 21:00 04/14/17 20:59 03/17/17 08:08 1 APPLN Nystatin (Mycostatin Susp) 5 ml QID PO 03/15/17 17:00 03/25/17 16:59 03/17/17 08:08 5 ML Nystatin (Mycostatin Powder) 1 appln BID EXT 03/15/17 21:00 04/14/17 20:59 03/17/17 08:08 1 APPLN Calcium Carbonate (Tums Chew Tab) 2,000 mg QID PO 03/16/17 17:00 04/15/17 08:59 03/17/17 08:07 2,000 MG Potassium/ Phosphorus/Sodium (Phospha 250 Neutral 155-852-130 Mg) 1 tab QID PO 03/16/17 17:00 04/15/17 16:59 03/17/17 08:07 1 TAB Magnesium Sulfate 1 gm/Prmx 100 ml @ 100 mls/hr 0930,1030 IV 03/17/17 09:30 03/17/17 11:29 03/17/17 10:25 100 MLS/HR Cholecalciferol (Vitamin D Tab) 1,000 inter.unit QAM PO 03/18/17 09:00 04/17/17 08:59 Calcium Gluconate 3000 mg/Sodium Chloride 80 ml @ 240 mls/hr NOW IV 03/17/17 23:00 04/16/17 22:59 UNV Impression (1) Hypocalcemia (2) Prostate cancer (3) Hypertension Mr. 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 He developed hypocalcemia following treatment with Denosumab. EKG documented new QTc prolongation. This is improving. 25OH D deficiency documented. He has received ergocalciferol 70613 IU and is taking daily cholecalciferol. Calcitriol is being provided. Aggressive replacement with PO and IV calcium continues. The patient has hypomagnesemia. This is being treated with IV magnesium sulfate. Recommendations -- Monitor serum calcium q 6 hours and replete as needed with IV calcium gluconate -- Additional 6 grams of IV calcium gluconate provided this morning -- 2 grams of IV magnesium sulfate provided -- Calcium carbonate 2000 Q 4-6 hours (not to be taken with meals) -- Monitor and replete K and magnesium twice daily -- Monitor QTc daily -- Will continue to follow
[2017-03-17] MEDS ORDERED: CEPHALEXIN MONOHYDRATE 500 MG CAP PO SCH (13:00)
--- NOTE | 2017-03-17 19:16 | Family Medicine Progress Note ---
Progress Note Date of Service Mar 17, 2017. Subjective Pt evaluation today including: conversation w/ patient no concerns Constitutional: No fever, No chills Eyes: No worsening of vision Respiratory: No cough, No sputum Cardiovascular: No chest pain Abdomen: No pain, No nausea, No vomiting, No diarrhea, No constipation Objective Physical Exam General Appearance: no apparent distress Eyes: PERRL Respiratory/Chest: lungs clear, normal breath sounds, no respiratory distress, no accessory muscle use Cardiovascular: regular rate, rhythm, no edema, no murmur Extremities: non-tender, no pedal edema Assessment and Plan Mr. Greene is an 81 year old man here for hypercalcemia (2/2 Chemo for mets prost ca) and likely UTI. Hypocalcemia - patient received injection of Xgeva on 03/02 - hypocalcemia is listed as an adverse reaction - Vit D decreased - supplementation given by Nephro - Continue supplementation with Ca. Glu- 3 gm x 2 scheduled for tonight - Mag was 1.7 today- repleted - monitor on tele due to qt prolongation ---> come down to 482 from 492 - check calcium level AM UTI- complicated - continue chronic Berkowitz - Question colonization vs true infection - Rocephin initially switched to Keflex due to concern for interaction with large doses of Calcium. - however, Keflex won't cover the species noted on the culture - Preliminary Culture results indicate two species (stenotrophomonas + strep) - Discussed with pharmacy- hold all abx. Bactrim not the best option based on age and levaquin as well with CKD. Ceftaz is an option. Prostate Ca with mets to bone - continue tamsulosin, finasteride Chronic constipation - colace bid, prn miralax and suppositories Emiliana/thrush - nystatin swish and swallow, nystatin powder for groin Seborrheic dermatitis - desonide for face bid x14 days CKD - Creatinine 0.99 - avoid nephrotoxins where possible DNR -Heparin subq for DVT proph Dispo: PT/OT DNR Resident Physician Supervision Note: I was present with Dr. Andrea during the history and exam. I discussed the case with the resident and agree with the findings and plan as documented in the note. I also discussed the case with nephrology sap ppm consultant. PLAN 1) Scheduled calcium overnight. 2) Replete Mg. 3) Monitor EKG Documented By: Elia Jones
[2017-03-17] MEDS: TAMSULOSIN HCL 0.4 MG CAP PO SCH (20:34)
[2017-03-17] MEDS: RANITIDINE HCL 150 MG TAB PO SCH (20:36)
[2017-03-17] MEDS: CALCIUM GLUCONATE IV SCH (22:35)
[2017-03-17] MEDS: SODIUM CHLORIDE 0.9% IV SCH (22:35)
[2017-03-17] MEDS ORDERED: SODIUM CHLORIDE 0.9% IV SCH (23:00)
[2017-03-17] MEDS ORDERED: CALCIUM GLUCONATE IV SCH (23:00)
[2017-03-18 03:35] VITALS: BP 114/64; PULSE 86; TEMP 37.3; O2SAT 94
[2017-03-18] MEDS: CALCIUM GLUCONATE IV SCH (04:16)
[2017-03-18] MEDS: SODIUM CHLORIDE 0.9% IV SCH (04:16)
[2017-03-18 06:09] LABS: HEMATOCRIT 31.5 % (42-52); HEMOGLOBIN 10.3 g/dL (14.0-18.0); MEAN CELL VOLUME 85.8 fL (80-100); MEAN CORPUSCULAR HEMOGLOBIN 28.1 pg (25-34); MEAN CORPUSCULAR HGB CONC 32.7 g/dl (32-36); MEAN PLATELET VOLUME 8.3 fL (7.4-10.4); PLATELET COUNT 161 K/uL (130-400); RED CELL DISTRIBUTION WIDTH CV 17.1 % (11.5-14.5); RED CELL DISTRIBUTION WIDTH SD 53.6 fL (36.4-46.3); WHITE BLOOD COUNT 6.23 K/uL (4.8-10.8)
[2017-03-18 06:42] LABS: CALCIUM 6.1 mg/dl (8.5-10.1); CREATININE 1.06 mg/dl (0.60-1.40); POTASSIUM 3.9 mmol/L (3.5-5.1)
[2017-03-18 07:39] VITALS: BP 110/61; PULSE 83; TEMP 36.8; O2SAT 95
[2017-03-18] MEDS: NYSTATIN SUSP 500,000 U/5 ML UDC PO SCH ×4 (07:41→20:53)
[2017-03-18] MEDS: NYSTATIN POWDER 15GM BTL EXT SCH ×2 (07:41→20:53)
[2017-03-18] MEDS: PANTOprazole SOD 40 MG TAB PO SCH (07:42)
[2017-03-18] MEDS: DOCUSATE SODIUM 100 MG CAP PO SCH ×2 (07:42→20:53)
[2017-03-18] MEDS: DESONIDE CR 15 GM TUBE EXT SCH ×2 (07:42→20:53)
[2017-03-18] MEDS: CALCIUM CARBONATE 500 MG CHEWABLE PO SCH ×4 (07:42→20:53)
[2017-03-18] MEDS: POT PHOSPHATE MONOBASIC W/ SOD TAB PO SCH ×4 (07:42→20:53)
[2017-03-18] MEDS: HEPARIN SOD 5000 UNIT/0.5 ML CARP SQ SCH ×2 (07:51→20:55)
[2017-03-18] MEDS ORDERED: SODIUM CHLORIDE 0.9% IV ONE ×2 (09:00)
[2017-03-18] MEDS ORDERED: CHOLECALCIFEROL 1000 INTER.UNIT TAB PO SCH (09:00)
[2017-03-18] MEDS ORDERED: CALCIUM GLUCONATE IV ONE ×2 (09:00)
[2017-03-18] MEDS: CALCITRIOL 0.25 MCG CAP PO SCH (09:50)
[2017-03-18] MEDS: CHOLECALCIFEROL 1000 INTER.UNIT TAB PO SCH (09:51)
[2017-03-18] MEDS: CALCIUM CARBONATE 1250MG TAB PO SCH ×4 (09:54→20:53)
[2017-03-18] MEDS ORDERED: CALCIUM GLUCONATE IV SCH ×2 (10:00→15:00)
[2017-03-18] MEDS ORDERED: SODIUM CHLORIDE 0.9% IV SCH ×2 (10:00→15:00)
--- NOTE | 2017-03-18 10:52 | Nephrology Progress Note ---
Nephrology Progress Note Date of Service Mar 18, 2017. Chief Complaint Hypocalcemia Subjective No acute events overnight. Paul is resting comfortably in bed this morning. He denies pain. He denies shortness of breath. No muscle spasms or tetany. Appetite is good. He is tolerating treatment well. The patient remains on bus monitor. Plan of care was discussed with the primary service and patient's son. Review of Systems A complete review of systems was performed. Pertinent positives are noted above. All other systems are negative. Vital Signs Last 8 Hrs Date Time Temp Pulse Resp B/P (MAP) Pulse Ox O2 Delivery O2 Flow Rate FiO2 03/18/17 08:00 Room Air 03/18/17 07:39 36.8 83 20 110/61 (77) 95 Room Air 03/18/17 04:00 Room Air 03/18/17 03:35 37.3 86 16 114/64 (81) 94 Room Air Last Recorded Weight Weight (Kilograms): 64.800 Physical Exam General Appearance: WD/WN, no apparent distress Head: normocephalic, atraumatic Eyes: normal inspection, sclerae normal ENT: normal ENT inspection, pharynx normal Neck: supple, no JVD Respiratory/Chest: lungs clear, no respiratory distress, no accessory muscle use Cardiovascular: regular rate, rhythm, no gallop Abdomen/GI: non tender, soft Genitourinary - Male: + pertinent finding (Berkowitz with clear yellow urine) Extremities/Musculoskelatal: normal inspection, no pedal edema Neurologic/Psych: alert, normal mood/affect Social History Drug Use: none Marital Status: Housing Status: lives with family (lives with son) 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 03/18/17 05:26 03/18/17 05:26 Test 03/17/17 12:56 03/18/17 05:26 Calcium Level 5.9 mg/dl (8.5-10.1) 6.1 mg/dl (8.5-10.1) Red Blood Count 3.67 M/uL (4.7-6.1) Mean Corpuscular Volume 85.8 fL (80-100) Mean Corpuscular Hemoglobin 28.1 pg (25-34) Mean Corpuscular Hemoglobin Concent 32.7 g/dl (32-36) RDW Standard Deviation 53.6 fL (36.4-46.3) RDW Coefficient of Variation 17.1 % (11.5-14.5) Mean Platelet Volume 8.3 fL (7.4-10.4) Anion Gap 6.0 mmol/L (3-11) Est Creatinine Clear Calc Drug Dose 45.9 ml/min Estimated GFR () 74.9 Estimated GFR (Non- 64.6 BUN/Creatinine Ratio 5.9 (10-20) Magnesium Level 1.8 mg/dl (1.8-2.4) Allergies Coded Allergies: No Known Allergies (Unverified , 03/15/17) Medications Current Inpatient Medications Medications (Trade) Dose Ordered Sig/Jonathan Route Start Time Stop Time Status Last Admin Dose Admin Acetaminophen (Tylenol Tab) 650 mg Q4H PRN PO 03/15/17 14:15 04/14/17 14:14 Tamsulosin HCl (Flomax Cap) 0.8 mg HS PO 03/15/17 21:00 04/14/17 20:59 03/17/17 20:34 0.8 MG Miscellaneous Information (Order Awaiting Action) 1 ea QS N/A 03/15/17 16:00 04/14/17 15:59 Pantoprazole Sodium (Protonix Tab) 40 mg QAM PO 03/16/17 09:00 04/15/17 08:59 03/18/17 07:42 40 MG Ranitidine HCl (zANTac TAB) 300 mg HS PO 03/15/17 21:00 04/14/17 20:59 03/17/17 20:36 300 MG Polyethylene (Miralax Powder Packet) 17 gm DAILY PRN PO 03/15/17 15:00 04/14/17 14:59 Docusate Sodium (coLACE CAP) 100 mg BID PO 03/15/17 21:00 04/14/17 20:59 03/18/17 07:42 100 MG Bisacodyl (Dulcolax Supp) 10 mg DAILY PRN [place] 03/15/17 15:00 04/14/17 14:59 Heparin Sodium (Porcine) (Heparin Sq 5000 Unit/0.5ml) 5,000 unit Q12 SQ 03/15/17 21:00 04/14/17 20:59 03/18/17 07:51 5,000 UNIT Desonide (Desowen 0.05% Crm) 1 appln BID EXT 03/15/17 21:00 04/14/17 20:59 03/18/17 07:42 1 APPLN Nystatin (Mycostatin Susp) 5 ml QID PO 03/15/17 17:00 03/25/17 16:59 03/18/17 07:41 5 ML Nystatin (Mycostatin Powder) 1 appln BID EXT 03/15/17 21:00 04/14/17 20:59 03/18/17 07:41 1 APPLN Calcium Carbonate (Tums Chew Tab) 2,000 mg QID PO 03/16/17 17:00 04/15/17 08:59 03/18/17 07:42 2,000 MG Potassium/ Phosphorus/Sodium (Phospha 250 Neutral 155-852-130 Mg) 1 tab QID PO 03/16/17 17:00 04/15/17 16:59 03/18/17 07:42 1 TAB Magnesium Sulfate 1 gm/Prmx 100 ml @ 100 mls/hr Q1H IV 03/18/17 09:30 03/18/17 11:29 Cholecalciferol (Vitamin D Tab) 5,000 inter.unit QAM PO 03/18/17 09:00 04/17/17 08:59 03/18/17 09:51 5,000 INTER.UNIT Calcitriol (Rocaltrol Cap) 1 mcg QAM PO 03/18/17 09:00 04/17/17 08:59 03/18/17 09:50 1 MCG Calcium Gluconate 4000 mg/Sodium Chloride 90 ml @ 120 mls/hr 1000 IV 03/18/17 10:00 03/18/17 11:00 03/18/17 09:52 120 MLS/HR Calcium Carbonate (oS-Randy 500 TAB) 1,250 mg QID PO 03/18/17 09:00 04/17/17 08:59 03/18/17 09:54 1,250 MG Impression (1) Hypocalcemia (2) Prostate cancer (3) Hypertension Mr. 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 He developed hypocalcemia following treatment with Denosumab. EKG documented new QTc prolongation. QTc has improved to 380. 25OH D deficiency documented. He has received ergocalciferol 46328 IU and is taking daily cholecalciferol. Calcitriol is being provided. Aggressive replacement with PO and IV calcium continues. The patient has associated hypomagnesemia. This is being treated with IV magnesium sulfate. 20 grams of calcium gluconate IV provided yesterday in addition to 8000 mg of calcium carbonate. Recommendations -- 8 grams of calcium gluconate IV ordered for this morning -- Os-randy 500 1 tab QID with TUMs 2000 mg QID -- D3 5000 IU daily -- Calcitriol 1 mcg daily -- 2 grams of IV magnesium sulfate provided this AM -- Continue to monitor calcium Q 6 hours
--- NOTE | 2017-03-18 10:54 | Family Medicine Progress Note ---
Progress Note Date of Service Mar 18, 2017. Subjective Pt evaluation today including: conversation w/ patient Reports that his right arm has some redness, minimal pain Denies other concerns Constitutional: No fever, No chills Eyes: No worsening of vision ENT: No hearing loss Respiratory: No cough, No wheezing, No shortness of breath, No dyspnea on exertion Cardiovascular: No chest pain Abdomen: + constipation, No pain, No nausea, No vomiting, No diarrhea Medications Medications Administered Medications (Trade) Dose Ordered Sig/Jonathan Route Start Time Stop Time Status Last Admin Dose Admin Sodium Chloride 1,000 ml @ 125 mls/hr Q8H STAT IV 03/15/17 10:09 03/15/17 16:58 DC 03/15/17 13:23 125 MLS/HR Sodium Chloride 1,000 ml @ 999 mls/hr Q1H1M STAT IV 03/15/17 10:22 03/15/17 11:22 DC 03/15/17 10:22 999 MLS/HR Calcium Gluconate (Calcium Gluconate 10%) 1,000 mg NOW STAT IV 03/15/17 12:26 03/15/17 12:28 DC 03/15/17 12:48 1,000 MG Magnesium Sulfate (Magnesium Sulfate) 2 gm NOW STAT IV 03/15/17 12:26 03/15/17 12:28 DC 03/15/17 13:35 2 GM Ceftriaxone Sodium (Rocephin Inj) 1 gm NOW STAT IV 03/15/17 12:26 03/15/17 12:28 DC 03/15/17 13:22 1 GM Calcium Gluconate 1000 mg/Sodium Chloride 60 ml @ 240 mls/hr NOW STAT IV 03/15/17 16:06 03/15/17 16:20 DC 03/15/17 17:33 240 MLS/HR Tamsulosin HCl (Flomax Cap) 0.8 mg HS PO 03/15/17 21:00 04/14/17 20:59 03/17/17 20:34 0.8 MG Pantoprazole Sodium (Protonix Tab) 40 mg QAM PO 03/16/17 09:00 04/15/17 08:59 03/18/17 07:42 40 MG Ranitidine HCl (zANTac TAB) 300 mg HS PO 03/15/17 21:00 04/14/17 20:59 03/17/17 20:36 300 MG Ceftriaxone Sodium 1 gm/ Dextrose 50 ml @ 100 mls/hr Q24H IV 03/16/17 14:00 03/17/17 12:03 DC 03/16/17 13:03 100 MLS/HR Docusate Sodium (coLACE CAP) 100 mg BID PO 03/15/17 21:00 04/14/17 20:59 03/18/17 07:42 100 MG Heparin Sodium (Porcine) (Heparin Sq 5000 Unit/0.5ml) 5,000 unit Q12 SQ 03/15/17 21:00 04/14/17 20:59 03/18/17 07:51 5,000 UNIT Desonide (Desowen 0.05% Crm) 1 appln BID EXT 03/15/17 21:00 04/14/17 20:59 03/18/17 07:42 1 APPLN Nystatin (Mycostatin Susp) 5 ml QID PO 03/15/17 17:00 03/25/17 16:59 03/18/17 07:41 5 ML Nystatin (Mycostatin Powder) 1 appln BID EXT 03/15/17 21:00 04/14/17 20:59 03/18/17 07:41 1 APPLN Ergocalciferol (Vitamin D Cap) 50,000 interunit NOW ONCE PO 03/15/17 17:00 03/15/17 17:01 DC 03/15/17 17:32 50,000 INTERUNIT Calcitriol (Rocaltrol Cap) 0.25 mcg 1700 ONCE PO 03/15/17 17:00 03/15/17 17:01 DC 03/15/17 17:31 0.25 MCG Calcium Carbonate (Tums Chew Tab) 1,000 mg NOW ONCE PO 03/15/17 17:00 03/15/17 17:01 DC 03/15/17 17:32 1,000 MG Calcium Carbonate (Tums Chew Tab) 1,000 mg QAM PO 03/16/17 09:00 03/16/17 09:00 DC 03/16/17 07:59 1,000 MG Sodium Phosphate 15 mmol/Sodium Chloride 255 ml @ 102 mls/hr 1800 ONCE IV 03/15/17 18:00 03/15/17 20:29 DC 03/15/17 18:50 102 MLS/HR Calcium Gluconate 2000 mg/Sodium Chloride 70 ml @ 240 mls/hr 2030 ONCE IV 03/15/17 20:30 03/15/17 20:47 DC 03/16/17 00:15 240 MLS/HR Calcium Gluconate 3000 mg/Sodium Chloride 80 ml @ 160 mls/hr NOW ONCE IV 03/16/17 02:00 03/16/17 02:29 DC 03/16/17 02:05 160 MLS/HR Magnesium Sulfate 1 gm/Prmx 100 ml @ 100 mls/hr TODAY@0800,0900 IV 03/16/17 08:00 03/16/17 09:59 DC 03/16/17 10:22 100 MLS/HR Calcium Carbonate (Tums Chew Tab) 1,000 mg QID PO 03/16/17 09:00 03/16/17 15:24 DC 03/16/17 13:03 1,000 MG Calcium Gluconate 2000 mg/Sodium Chloride 70 ml @ 240 mls/hr 1000 ONCE IV 03/16/17 10:00 03/16/17 10:17 DC 03/16/17 11:57 240 MLS/HR Calcium Carbonate (Tums Chew Tab) 2,000 mg QID PO 03/16/17 17:00 04/15/17 08:59 03/18/17 07:42 2,000 MG Potassium/ Phosphorus/Sodium (Phospha 250 Neutral 155-852-130 Mg) 1 tab QID PO 03/16/17 17:00 04/15/17 16:59 03/18/17 07:42 1 TAB Sodium Phosphate 21 mmol/Sodium Chloride 507 ml @ 144 mls/hr ONE ONCE IV 03/16/17 15:30 03/16/17 19:01 DC 03/16/17 15:47 144 MLS/HR Calcium Gluconate 2000 mg/Sodium Chloride 70 ml @ 240 mls/hr NOW STAT IV 03/16/17 15:28 03/16/17 15:45 DC 03/16/17 15:47 240 MLS/HR Calcium Gluconate 1000 mg/Sodium Chloride 60 ml @ 240 mls/hr NOW STAT IV 03/16/17 17:12 03/16/17 17:26 DC 03/16/17 17:41 240 MLS/HR Calcium Gluconate 1000 mg/Sodium Chloride 60 ml @ 120 mls/hr NOW ONCE IV 03/16/17 19:45 03/16/17 20:14 DC 03/16/17 19:54 120 MLS/HR Calcium Gluconate 1000 mg/Sodium Chloride 60 ml @ 240 mls/hr NOW STAT IV 03/17/17 04:32 03/17/17 04:46 DC 03/17/17 04:51 240 MLS/HR Calcium Gluconate 3000 mg/Sodium Chloride 80 ml @ 160 mls/hr 0900 ONCE IV 03/17/17 09:00 03/17/17 09:29 DC 03/17/17 09:00 160 MLS/HR Magnesium Sulfate 1 gm/Prmx 100 ml @ 100 mls/hr 0930,1030 IV 03/17/17 09:30 03/17/17 11:29 DC 03/17/17 10:25 100 MLS/HR Cholecalciferol (Vitamin D Tab) 1,000 inter.unit QAM PO 03/18/17 09:00 03/18/17 09:00 DC 03/18/17 07:43 1,000 INTER.UNIT Cholecalciferol (Vitamin D Tab) 1,000 inter.unit 0942 ONCE PO 03/17/17 09:42 03/17/17 09:44 DC 03/17/17 10:22 1,000 INTER.UNIT Calcitriol (Rocaltrol Cap) 1 mcg NOW ONCE PO 03/17/17 09:45 03/17/17 09:55 DC 03/17/17 10:22 1 MCG Calcium Gluconate 3000 mg/Sodium Chloride 80 ml @ 160 mls/hr 1130 ONCE IV 03/17/17 11:30 03/17/17 11:59 DC 03/17/17 11:25 160 MLS/HR Cephalexin Monohydrate (Keflex Cap) 500 mg BID PO 03/17/17 13:00 03/17/17 19:12 DC 03/17/17 14:57 500 MG Calcium Gluconate 3000 mg/Sodium Chloride 80 ml @ 160 mls/hr 1500 ONCE IV 03/17/17 15:00 03/17/17 15:29 DC 03/17/17 14:59 160 MLS/HR Calcium Gluconate 3000 mg/Sodium Chloride 80 ml @ 240 mls/hr Q6H IV 03/17/17 22:00 03/18/17 08:45 DC 03/18/17 04:16 240 MLS/HR Calcium Gluconate 1000 mg/Sodium Chloride 60 ml @ 240 mls/hr NOW STAT IV 03/17/17 19:39 03/17/17 19:53 DC 03/17/17 20:32 240 MLS/HR Cholecalciferol (Vitamin D Tab) 5,000 inter.unit QAM PO 03/18/17 09:00 04/17/17 08:59 03/18/17 09:51 5,000 INTER.UNIT Calcitriol (Rocaltrol Cap) 1 mcg QAM PO 03/18/17 09:00 04/17/17 08:59 03/18/17 09:50 1 MCG Calcium Gluconate 4000 mg/Sodium Chloride 90 ml @ 120 mls/hr 0900 ONCE IV 03/18/17 09:00 03/18/17 09:44 DC 03/18/17 08:54 120 MLS/HR Calcium Gluconate 4000 mg/Sodium Chloride 90 ml @ 120 mls/hr 1000 IV 03/18/17 10:00 03/18/17 11:00 03/18/17 09:52 120 MLS/HR Calcium Carbonate (oS-Radny 500 TAB) 1,250 mg QID PO 03/18/17 09:00 04/17/17 08:59 03/18/17 09:54 1,250 MG Objective Vital Signs Date Time Temp Pulse Resp B/P (MAP) Pulse Ox O2 Delivery O2 Flow Rate FiO2 03/18/17 08:00 Room Air 03/18/17 07:39 36.8 83 20 110/61 (77) 95 Room Air 03/18/17 04:00 Room Air 03/18/17 03:35 37.3 86 16 114/64 (81) 94 Room Air 03/17/17 23:59 Room Air 03/17/17 23:48 37.9 83 17 116/68 (84) 93 Room Air 03/17/17 20:00 Room Air 03/17/17 19:55 37.7 96 20 110/59 (76) 94 Room Air 03/17/17 16:00 Room Air 03/17/17 15:37 37.5 83 18 113/53 (73) 95 03/17/17 12:00 Room Air 03/17/17 11:49 37.1 95 20 120/67 (84) 96 Room Air 03/17/17 11:45 36.7 88 20 117/66 (83) 92 Room Air Physical Exam General Appearance: no apparent distress Eyes: PERRL ENT: hearing grossly normal Neck: supple, thyroid normal, no JVD Respiratory/Chest: lungs clear, normal breath sounds, no respiratory distress, no accessory muscle use Cardiovascular: regular rate, rhythm, no murmur Abdomen: normal bowel sounds, non tender, soft Extremities: + inflammation, + swelling, + pertinent finding (Right upper extremity with sweelling and erythema over the antecubital fossa, slightly tender, firm) Neurologic/Psychiatric: alert, normal mood/affect Laboratory Results Last 24 Hours Test 03/18/17 05:26 White Blood Count 6.23 K/uL Red Blood Count 3.67 M/uL Hemoglobin 10.3 g/dL Hematocrit 31.5 % Mean Corpuscular Volume 85.8 fL Mean Corpuscular Hemoglobin 28.1 pg Mean Corpuscular Hemoglobin Concent 32.7 g/dl RDW Standard Deviation 53.6 fL RDW Coefficient of Variation 17.1 % Platelet Count 161 K/uL Mean Platelet Volume 8.3 fL Sodium Level 136 mmol/L Potassium Level 3.9 mmol/L Chloride Level 106 mmol/L Carbon Dioxide Level 24 mmol/L Anion Gap 6.0 mmol/L Blood Urea Nitrogen 6 mg/dl Creatinine 1.06 mg/dl Est Creatinine Clear Calc Drug Dose 45.9 ml/min Estimated GFR () 74.9 Estimated GFR (Non- 64.6 BUN/Creatinine Ratio 5.9 Random Glucose 79 mg/dl Calcium Level 6.1 mg/dl Magnesium Level 1.8 mg/dl Assessment and Plan Mr. Greene is an 81 year old man here for hypocalcemia (likely 2/2 to Chemo for mets prost ca) and likely UTI. Hypocalcemia - patient received injection of Denosumab on 03/02 - hypocalcemia is listed as an adverse reaction - Vit D, Calcitriol, Tums - Continue supplementation with Ca. Glu- total of 30 gm scheduled for today - Monitor mag/phos - monitor on tele due to qt prolongation ---> down to 456 today - check calcium level AM - secondary hyperparathyroidism in the setting of mets prostate ca Superficial thrombophlebitis of left arm - Noted today- Ultrasound confirmation of superficial thrombus involving the cephalic vein - IV removed and PICC line consented for other arm (Given large amounts of IV Ca ) - Warm compress UTI- complicated - Question colonization vs true infection in the setting of chronic bey + prostate ca. - Rocephin initially switched to Keflex due to concern for interaction with large doses of Calcium. - however, Keflex won't cover the species noted on the culture - Preliminary Culture results indicate two species (Stenotrophomonas + strep) - Discussed with pharmacy- will treat with Bactrim- renal precautions Prostate Ca with mets to bone - continue tamsulosin, finasteride Chronic constipation - colace bid, prn miralax and suppositories - Tap water enema Emiliana/thrush - nystatin swish and swallow, nystatin powder for groin Seborrheic dermatitis - desonide for face bid x14 days CKD - Creatinine 0.99 - avoid nephrotoxins where possible DNR -Heparin subq for DVT proph Dispo: PT/OT DNR Resident Physician Supervision Note: I interviewed and examined the patient. Discussed with Dr. Andrea and agree with findings and plan as documented in the note. I also discussed the case with nephrology. IMPRESSION 1) hypocalcemia, secondary to Denosumab, in setting of metastatic prostate CA 2) superficial phlebitis, RUE PLAN 1) DC IV and right hand; check ultrasound 2) PICC line to left upper extremity 3) Schedule calcium replacement overnight 4) BMP in AM Documented By: Elia Jones
[2017-03-18 12:42] VITALS: BP 130/65; PULSE 85; TEMP 37.2; O2SAT 97
[2017-03-18] MEDS ORDERED: SULFAMETHOXAZOLE/TRIMETHOPRIM DS 800/160MG TAB PO ONE (13:00)
--- NOTE | 2017-03-18 13:06 | DIAGNOSTIC IMAGING REPORT ---
R VENOUS DOPPLER UPR EXT UNIL CLINICAL HISTORY: 81 years-old Male presenting with r/o UE dvt. TECHNIQUE: Real-time grayscale and color and spectral Doppler ultrasound imaging of the veins of the right upper extremity was performed. Compression and augmentation were also utilized. COMPARISON: None. FINDINGS: Right: Internal jugular vein: Patent. Subclavian vein: Patent. Axillary vein: Patent. Basilic vein: Patent. Brachial vein: Patent. Cephalic vein: Filling defect consistent with thrombus extending from the antecubital fossa into the distal upper arm portion of the cephalic vein. Radial vein: Patent. Ulnar vein: Patent. Other: None. IMPRESSION: 1. No evidence of deep venous thrombosis. 2. Superficial thrombus in the cephalic vein extending from the antecubital fossa. Electronically signed by: Mekhi Ni M.D. 03/18/2017 1:04 PM Dictated Date/Time: 03/18/2017 1:03 PM
[2017-03-18] MEDS ORDERED: TAP WATER ENEMA PR PRN (13:30)
[2017-03-18] MEDS: MAGNESIUM SULFATE 1GM / D5W 1 GM in PREMIXED IN D5W 100 ML IV SCH ×2 (14:28→15:15)
[2017-03-18 15:04] VITALS: BP 128/66; PULSE 90; TEMP 37.6; O2SAT 95
[2017-03-18 19:15] VITALS: BP 107/53; PULSE 101; TEMP 38; O2SAT 94
[2017-03-18 20:00] VITALS: O2SAT 94
[2017-03-18] MEDS: RANITIDINE HCL 150 MG TAB PO SCH (20:53)
[2017-03-18] MEDS: TAMSULOSIN HCL 0.4 MG CAP PO SCH (20:54)
[2017-03-18] MEDS ORDERED: SODIUM CHLORIDE 0.9% IV STA (21:35)
[2017-03-18] MEDS ORDERED: CALCIUM GLUCONATE IV STA (21:35)
[2017-03-19] VITALS (8 sets, daily range): BP systolic 95–119; BP diastolic 51–73; PULSE 85–98; TEMP 37.1–37.6; O2SAT 93–96
[2017-03-19] MEDS ORDERED: SODIUM CHLORIDE 0.9% IV ONE ×2
[2017-03-19] MEDS ORDERED: CALCIUM GLUCONATE IV ONE ×2
[2017-03-19 05:01] LABS: HEMATOCRIT 31.3 % (42-52); HEMOGLOBIN 10.2 g/dL (14.0-18.0); MEAN CORPUSCULAR HGB CONC 32.6 g/dl (32-36); MEAN PLATELET VOLUME 8.2 fL (7.4-10.4); PLATELET COUNT 140 K/uL (130-400); RED CELL DISTRIBUTION WIDTH CV 17.1 % (11.5-14.5); RED CELL DISTRIBUTION WIDTH SD 53.5 fL (36.4-46.3)
[2017-03-19 05:28] LABS: CALCIUM 6.6 mg/dl (8.5-10.1); CREATININE 1.11 mg/dl (0.60-1.40); PHOSPHORUS 2.1 mg/dl (2.5-4.9); POTASSIUM 4.5 mmol/L (3.5-5.1)
[2017-03-19] MEDS ORDERED: SODIUM PHOSPHATE 3 MMOL/1 ML INFUSION IV STA (07:45)
[2017-03-19] MEDS ORDERED: CALCIUM GLUCONATE 10% 2,000 MG in SODIUM CHLORIDE 0.9% 50ML 50 ML IV ONE ×2 (08:00→19:00)
--- NOTE | 2017-03-19 08:09 | Family Medicine Progress Note ---
Progress Note Date of Service Mar 19, 2017. Subjective Pt evaluation today including: conversation w/ patient, physical exam, chart review, lab review, conversation w/ pharmacy consultant, review of inpatient medication list Pain: none PO Intake: good Voiding: no voiding problems Patient is feeling well and without any discomfort Denies any new symptoms Constitutional: No fever, No chills Eyes: No eye pain Respiratory: No cough, No sputum, No shortness of breath Cardiovascular: No chest pain, No edema, No palpitations Abdomen: No pain, No nausea, No vomiting, No diarrhea, No constipation Musculoskeletal: No muscle pain, No calf pain Male : No dysuria, No urinary frequency Skin: No rash, No itch, No new/changing skin lesions Medications Current Inpatient Medications Medications (Trade) Dose Ordered Sig/Jonathan Route Start Time Stop Time Status Last Admin Dose Admin Acetaminophen (Tylenol Tab) 650 mg Q4H PRN PO 03/15/17 14:15 04/14/17 14:14 Tamsulosin HCl (Flomax Cap) 0.8 mg HS PO 03/15/17 21:00 04/14/17 20:59 03/18/17 20:54 0.8 MG Miscellaneous Information (Order Awaiting Action) 1 ea QS N/A 03/15/17 16:00 04/14/17 15:59 Pantoprazole Sodium (Protonix Tab) 40 mg QAM PO 03/16/17 09:00 04/15/17 08:59 03/18/17 07:42 40 MG Ranitidine HCl (zANTac TAB) 300 mg HS PO 03/15/17 21:00 04/14/17 20:59 03/18/17 20:53 300 MG Polyethylene (Miralax Powder Packet) 17 gm DAILY PRN PO 03/15/17 15:00 04/14/17 14:59 Docusate Sodium (coLACE CAP) 100 mg BID PO 03/15/17 21:00 04/14/17 20:59 03/18/17 20:53 100 MG Bisacodyl (Dulcolax Supp) 10 mg DAILY PRN [place] 03/15/17 15:00 04/14/17 14:59 Heparin Sodium (Porcine) (Heparin Sq 5000 Unit/0.5ml) 5,000 unit Q12 SQ 03/15/17 21:00 3/3/18 20:59 03/18/17 20:55 5,000 UNIT Desonide (Desowen 0.05% Crm) 1 appln BID EXT 03/15/17 21:00 04/14/17 20:59 03/18/17 20:53 1 APPLN Nystatin (Mycostatin Susp) 5 ml QID PO 03/15/17 17:00 03/25/17 16:59 03/18/17 20:53 5 ML Nystatin (Mycostatin Powder) 1 appln BID EXT 03/15/17 21:00 04/14/17 20:59 03/18/17 20:53 1 APPLN Calcium Carbonate (Tums Chew Tab) 2,000 mg QID PO 03/16/17 17:00 04/15/17 08:59 03/18/17 20:53 2,000 MG Potassium/ Phosphorus/Sodium (Phospha 250 Neutral 155-852-130 Mg) 1 tab QID PO 03/16/17 17:00 04/15/17 16:59 03/18/17 20:53 1 TAB Cholecalciferol (Vitamin D Tab) 5,000 inter.unit QAM PO 03/18/17 09:00 04/17/17 08:59 03/18/17 09:51 5,000 INTER.UNIT Calcitriol (Rocaltrol Cap) 1 mcg QAM PO 03/18/17 09:00 04/17/17 08:59 03/18/17 09:50 1 MCG Calcium Carbonate (oS-Randy 500 TAB) 1,250 mg QID PO 03/18/17 09:00 04/17/17 08:59 03/18/17 20:53 1,250 MG Trimethoprim/ Sulfamethoxazole (Septra Ds 800/ 160MG Tab) 1 tab DAILY PO 03/19/17 09:00 03/29/17 08:59 Miscellaneous (Tap Water Enema) 1 ea Q2D PRN [place] 03/18/17 13:30 04/17/17 13:29 Heparin Sodium (Porcine) (Heparin 10 Unit/ ml 5 ml Flush) 5 ml PRN PRN FLUSH 03/18/17 15:30 04/17/17 15:29 03/19/17 06:00 5 ML Calcium Gluconate 2000 mg/Sodium Chloride 70 ml @ 240 mls/hr 0800 ONCE IV 03/19/17 08:00 03/19/17 08:17 Sodium Phosphate 15 mmol/Sodium Chloride 255 ml @ 88 mls/hr 0900 ONCE IV 03/19/17 09:00 03/19/17 11:53 Objective Vital Signs Date Time Temp Pulse Resp B/P (MAP) Pulse Ox O2 Delivery O2 Flow Rate FiO2 03/19/17 07:28 37.5 86 18 95/55 (68) 93 Room Air 03/19/17 04:00 Room Air 03/19/17 03:48 37.1 85 16 106/51 (69) 95 Room Air 03/19/17 00:10 37.2 98 20 119/66 (83) 93 Room Air 03/19/17 00:00 93 Room Air 03/18/17 20:00 94 Room Air 03/18/17 19:15 38.0 101 18 107/53 (71) 94 Room Air 03/18/17 16:10 Room Air 03/18/17 15:04 37.6 90 16 128/66 (86) 95 Room Air 03/18/17 12:42 37.2 85 20 130/65 (86) 97 Room Air 03/18/17 12:00 Room Air 03/18/17 08:00 Room Air Physical Exam General Appearance: WD/WN, no apparent distress ENT: hearing grossly normal Neck: supple, no JVD, no carotid bruits, trachea midline Respiratory/Chest: lungs clear, no respiratory distress, no accessory muscle use Cardiovascular: regular rate, rhythm, no edema, no murmur Abdomen: normal bowel sounds, non tender, soft Extremities: non-tender, no pedal edema, no calf tenderness, + pertinent finding (mild erythema and warmth over R antecubital fossa) Neurologic/Psychiatric: alert, normal mood/affect, oriented x 3 Skin: normal color, warm/dry, no rash Laboratory Results Results Past 24 Hours Test 03/18/17 18:07 03/19/17 04:34 Range/Units Calcium Level 6.8 6.6 8.5-10.1 mg/dl White Blood Count 5.60 4.8-10.8 K/uL Red Blood Count 3.64 4.7-6.1 M/uL Hemoglobin 10.2 14.0-18.0 g/dL Hematocrit 31.3 42-52 % Mean Corpuscular Volume 86.0 80-100 fL Mean Corpuscular Hemoglobin 28.0 25-34 pg Mean Corpuscular Hemoglobin Concent 32.6 32-36 g/dl RDW Standard Deviation 53.5 36.4-46.3 fL RDW Coefficient of Variation 17.1 11.5-14.5 % Platelet Count 140 130-400 K/uL Mean Platelet Volume 8.2 7.4-10.4 fL Sodium Level 136 136-145 mmol/L Potassium Level 4.5 3.5-5.1 mmol/L Chloride Level 106 98-107 mmol/L Carbon Dioxide Level 24 21-32 mmol/L Anion Gap 6.0 3-11 mmol/L Blood Urea Nitrogen 7 7-18 mg/dl Creatinine 1.11 0.60-1.40 mg/dl Est Creatinine Clear Calc Drug Dose 43.9 ml/min Estimated GFR () 70.8 Estimated GFR (Non- 61.1 BUN/Creatinine Ratio 6.7 10-20 Random Glucose 83 70-99 mg/dl Phosphorus Level 2.1 2.5-4.9 mg/dl Magnesium Level 2.0 1.8-2.4 mg/dl Assessment and Plan Mr. Greene is an 81 year old man here for hypocalcemia (likely 2/2 to Chemo for mets prost ca) and UTI Hypocalcemia secondary to Denosumab injection in the setting of metastatic prostate CA - patient received injection of Denosumab on 03/02 - calcium this am was 6.6 - Vit D, Calcitriol, Tums - Continue supplementation with Ca. Glu- will given 2000mg IV this morning - Monitor mag/phos ---> phos low this AM at 2.1 therefore 15mml IV given - monitor on tele due to qt prolongation ---> recheck EKG this am - check calcium level Q4hrs while awake - will add on albumin this am to check corrected calcium Superficial thrombophlebitis of left arm - Noted yesterday- Ultrasound confirmation of superficial thrombus involving the cephalic vein - IV removed and PICC line consented for other arm (Given large amounts of IV Ca ) - Warm compress Complicated UTI in the setting of chronic bey and prostate Ca - Question colonization vs true infection - Rocephin initially switched to Keflex due to concern for interaction with large doses of Calcium. Now on bactrim. Add amoxicillin. - Final Culture results indicate two species - Stenotrophomonas and enterococcus. Prostate Ca with mets to bone - continue tamsulosin, finasteride Chronic constipation - colace bid, prn miralax and suppositories - Tap water enema Emiliana/thrush - nystatin swish and swallow, nystatin powder for groin Seborrheic dermatitis - desonide for face bid x14 days CKD - Creatinine 1.11 - avoid nephrotoxins where possible DNR -Heparin subq for DVT proph Dispo: PT/OT DNR Continued [facility] stay due to: multiple IV medications needed Discharge planning: uncertain Reviewed: Pt Seen/Exam by Me History denies any concerns. Constitutional: denies: fever Respiratory: negative: short of breath Cardiovascular: denies chest pain, denies palpitations Neurological/Psych: negative: numbness General Appearance: no apparent distress Respiratory: no respiratory distress, rhonchi (occasional ) Cardiovascular: regular rate, rhythm Neurologic/Psychiatric: alert, oriented x 3 Skin Characteristics: warm/dry Assessment/Plan Resident Physician Supervision Note: I independently interviewed and examined the patient and verified the acevedo history and physical, reviewed labs and image studies, discussed the case with the resident Dr. Alberto, edited the above note and agree with the findings and care plan.
[2017-03-19] MEDS: DESONIDE CR 15 GM TUBE EXT SCH ×2 (08:49→20:18)
[2017-03-19] MEDS: CALCITRIOL 0.25 MCG CAP PO SCH (08:49)
[2017-03-19] MEDS: NYSTATIN POWDER 15GM BTL EXT SCH ×2 (08:49→20:18)
[2017-03-19] MEDS: CALCIUM CARBONATE 1250MG TAB PO SCH ×4 (08:50→20:16)
[2017-03-19] MEDS: SULFAMETHOXAZOLE/TRIMETHOPRIM DS 800/160MG TAB PO SCH (08:50)
[2017-03-19] MEDS: CHOLECALCIFEROL 1000 INTER.UNIT TAB PO SCH (08:50)
[2017-03-19] MEDS: PANTOprazole SOD 40 MG TAB PO SCH (08:51)
[2017-03-19] MEDS: POT PHOSPHATE MONOBASIC W/ SOD TAB PO SCH ×4 (08:51→20:17)
[2017-03-19] MEDS: CALCIUM CARBONATE 500 MG CHEWABLE PO SCH ×5 (08:51→22:00)
[2017-03-19] MEDS: DOCUSATE SODIUM 100 MG CAP PO SCH ×2 (08:52→20:17)
[2017-03-19] MEDS: NYSTATIN SUSP 500,000 U/5 ML UDC PO SCH ×4 (08:52→20:18)
[2017-03-19] MEDS: HEPARIN SOD 5000 UNIT/0.5 ML CARP SQ SCH ×2 (08:54→20:20)
[2017-03-19] MEDS ORDERED: SODIUM PHOSPHATE INJ 15 MMOL in SODIUM CHLORIDE 0.9% 250ML 250 ML IV ONE (09:00)
--- NOTE | 2017-03-19 10:50 | Nephrology Progress Note ---
Nephrology Progress Note Date of Service Mar 19, 2017. Chief Complaint Hypocalcemia, metastatic prostate cancer Subjective Mr. Greene was seen & examined in his hospital room this morning. He denies muscle spasms. He now has a PICC line in place for blood draws and calcium infusions. Review of Systems Constitutional: No fever Cardiovascular: No chest pain Respiratory: No dyspnea at rest Abdomen: No pain, No nausea Extremities: No leg edema A complete review of systems was performed. Pertinent positives are noted above. All other systems are negative. Vital Signs Last 8 Hrs Date Time Temp Pulse Resp B/P (MAP) Pulse Ox O2 Delivery O2 Flow Rate FiO2 03/19/17 08:00 Room Air 03/19/17 07:28 37.5 86 18 95/55 (68) 93 Room Air 03/19/17 04:00 Room Air 03/19/17 03:48 37.1 85 16 106/51 (69) 95 Room Air Last Recorded Weight Weight (Kilograms): 64.400 Physical Exam General Appearance: no apparent distress Head: normocephalic, atraumatic Eyes: PERRL, EOMI Neck: no adenopathy Respiratory/Chest: lungs clear Cardiovascular: regular rate, rhythm Abdomen/GI: normal bowel sounds, non tender, soft Extremities/Musculoskelatal: no calf tenderness, no pedal edema Neurologic/Psych: alert, oriented x 3 Social History Drug Use: none Marital Status: Housing Status: lives with family (lives with son) 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 03/19/17 04:34 03/19/17 04:34 Test 03/18/17 18:07 03/19/17 04:34 03/19/17 09:02 Calcium Level 6.8 mg/dl (8.5-10.1) 6.6 mg/dl (8.5-10.1) Red Blood Count 3.64 M/uL (4.7-6.1) Mean Corpuscular Volume 86.0 fL (80-100) Mean Corpuscular Hemoglobin 28.0 pg (25-34) Mean Corpuscular Hemoglobin Concent 32.6 g/dl (32-36) RDW Standard Deviation 53.5 fL (36.4-46.3) RDW Coefficient of Variation 17.1 % (11.5-14.5) Mean Platelet Volume 8.2 fL (7.4-10.4) Anion Gap 6.0 mmol/L (3-11) Est Creatinine Clear Calc Drug Dose 43.9 ml/min Estimated GFR () 70.8 Estimated GFR (Non- 61.1 BUN/Creatinine Ratio 6.7 (10-20) Phosphorus Level 2.1 mg/dl (2.5-4.9) Magnesium Level 2.0 mg/dl (1.8-2.4) Ionized Calcium 0.91 mmol/l (1.12-1.32) Allergies Coded Allergies: No Known Allergies (Unverified , 03/15/17) Medications Current Inpatient Medications Medications (Trade) Dose Ordered Sig/Jonathan Route Start Time Stop Time Status Last Admin Dose Admin Acetaminophen (Tylenol Tab) 650 mg Q4H PRN PO 03/15/17 14:15 04/14/17 14:14 Tamsulosin HCl (Flomax Cap) 0.8 mg HS PO 03/15/17 21:00 04/14/17 20:59 03/18/17 20:54 0.8 MG Miscellaneous Information (Order Awaiting Action) 1 ea QS N/A 03/15/17 16:00 04/14/17 15:59 Pantoprazole Sodium (Protonix Tab) 40 mg QAM PO 03/16/17 09:00 04/15/17 08:59 03/19/17 08:51 40 MG Ranitidine HCl (zANTac TAB) 300 mg HS PO 03/15/17 21:00 04/14/17 20:59 03/18/17 20:53 300 MG Polyethylene (Miralax Powder Packet) 17 gm DAILY PRN PO 03/15/17 15:00 04/14/17 14:59 Docusate Sodium (coLACE CAP) 100 mg BID PO 03/15/17 21:00 04/14/17 20:59 03/19/17 08:52 100 MG Bisacodyl (Dulcolax Supp) 10 mg DAILY PRN [place] 03/15/17 15:00 04/14/17 14:59 Heparin Sodium (Porcine) (Heparin Sq 5000 Unit/0.5ml) 5,000 unit Q12 SQ 03/15/17 21:00 04/14/17 20:59 03/19/17 08:54 5,000 UNIT Desonide (Desowen 0.05% Crm) 1 appln BID EXT 03/15/17 21:00 04/14/17 20:59 03/19/17 08:49 1 APPLN Nystatin (Mycostatin Susp) 5 ml QID PO 03/15/17 17:00 03/25/17 16:59 03/19/17 08:52 5 ML Nystatin (Mycostatin Powder) 1 appln BID EXT 03/15/17 21:00 04/14/17 20:59 03/19/17 08:49 1 APPLN Calcium Carbonate (Tums Chew Tab) 2,000 mg QID PO 03/16/17 17:00 04/15/17 08:59 03/19/17 08:51 2,000 MG Potassium/ Phosphorus/Sodium (Phospha 250 Neutral 155-852-130 Mg) 1 tab QID PO 03/16/17 17:00 04/15/17 16:59 03/19/17 08:51 1 TAB Cholecalciferol (Vitamin D Tab) 5,000 inter.unit QAM PO 03/18/17 09:00 04/17/17 08:59 03/19/17 08:50 5,000 INTER.UNIT Calcitriol (Rocaltrol Cap) 1 mcg QAM PO 03/18/17 09:00 04/17/17 08:59 03/19/17 08:49 1 MCG Calcium Carbonate (oS-Randy 500 TAB) 1,250 mg QID PO 03/18/17 09:00 04/17/17 08:59 03/19/17 08:50 1,250 MG Trimethoprim/ Sulfamethoxazole (Septra Ds 800/ 160MG Tab) 1 tab DAILY PO 03/19/17 09:00 03/29/17 08:59 03/19/17 08:50 1 TAB Miscellaneous (Tap Water Enema) 1 ea Q2D PRN [place] 03/18/17 13:30 04/17/17 13:29 Heparin Sodium (Porcine) (Heparin 10 Unit/ ml 5 ml Flush) 5 ml PRN PRN FLUSH 03/18/17 15:30 04/17/17 15:29 03/19/17 06:00 5 ML Sodium Phosphate 15 mmol/Sodium Chloride 255 ml @ 88 mls/hr 0900 ONCE IV 03/19/17 09:00 03/19/17 11:53 2/5/18 08:48 88 MLS/HR Impression (1) Hypocalcemia (2) Prostate cancer (3) Hypertension Mr. 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 He developed hypocalcemia following treatment with Denosumab. EKG documented new QTc prolongation. QTc has improved to 380. 25OH D deficiency documented. He has received ergocalciferol 82919 IU and is taking daily cholecalciferol. Calcitriol is being provided. Aggressive replacement with PO and IV calcium continues. The patient has associated hypomagnesemia. This is being treated with IV magnesium sulfate. Recommendations HYPOCALCEMIA: -- 6 grams of calcium gluconate IV ordered for this morning -- Repeat calcium ordered at 12 noon and 4 pm -- Continue Os-randy 500 1 tab QID, TUMs 2000 mg QID, viatmin D3 5000 IU daily, Calcitriol 1 mcg daily -- Once serum calcium ~ 8.0 will stop IV Ca and transition to oral calcium supplements HYPOMAGNESEMIA: -- Serum Mg has corrected. Recheck level in am
[2017-03-19] MEDS ORDERED: AMOXICILLIN 250 MG CAP PO ONE (15:15)
[2017-03-19 15:54] LABS: ALBUMIN 2.6 gm/dl (3.4-5.0); CALCIUM 6.1 mg/dl (8.5-10.1); CREATININE 1.28 mg/dl (0.60-1.40); POTASSIUM 4.4 mmol/L (3.5-5.1)
[2017-03-19 16:08] LABS: TOTAL PROTEIN 5.9 gm/dl (6.4-8.2)
[2017-03-19] MEDS ORDERED: CALCIUM GLUCONATE 10% 2,000 MG in SODIUM CHLORIDE 0.9% 50ML 50 ML IV STA (17:53)
[2017-03-19] MEDS: RANITIDINE HCL 150 MG TAB PO SCH (20:16)
[2017-03-19] MEDS: AMOXICILLIN 250 MG CAP PO SCH (20:17)
[2017-03-19] MEDS: TAMSULOSIN HCL 0.4 MG CAP PO SCH (20:18)
[2017-03-20 03:38] VITALS: BP 102/54; PULSE 93; TEMP 37; O2SAT 94
[2017-03-20 04:51] LABS: HEMATOCRIT 31.9 % (42-52); HEMOGLOBIN 10.1 g/dL (14.0-18.0); MEAN CELL VOLUME 86.7 fL (80-100); MEAN CORPUSCULAR HEMOGLOBIN 27.4 pg (25-34); MEAN CORPUSCULAR HGB CONC 31.7 g/dl (32-36); MEAN PLATELET VOLUME 8.5 fL (7.4-10.4); PLATELET COUNT 138 K/uL (130-400); RED CELL DISTRIBUTION WIDTH CV 17.2 % (11.5-14.5); RED CELL DISTRIBUTION WIDTH SD 54.3 fL (36.4-46.3); WHITE BLOOD COUNT 5.37 K/uL (4.8-10.8)
[2017-03-20 05:29] LABS: ALBUMIN 2.4 gm/dl (3.4-5.0); CREATININE 1.22 mg/dl (0.60-1.40); POTASSIUM 4.3 mmol/L (3.5-5.1); TOTAL PROTEIN 5.8 gm/dl (6.4-8.2)
[2017-03-20 07:31] VITALS: BP 107/65; PULSE 86; TEMP 37; O2SAT 96
[2017-03-20] MEDS: CALCITRIOL 0.25 MCG CAP PO SCH (07:39)
[2017-03-20] MEDS: CALCIUM CARBONATE 1250MG TAB PO SCH ×4 (07:39→20:07)
[2017-03-20] MEDS: NYSTATIN SUSP 500,000 U/5 ML UDC PO SCH ×4 (07:40→20:07)
[2017-03-20] MEDS: DESONIDE CR 15 GM TUBE EXT SCH ×2 (07:40→20:07)
[2017-03-20] MEDS: CHOLECALCIFEROL 1000 INTER.UNIT TAB PO SCH (07:40)
[2017-03-20] MEDS: AMOXICILLIN 250 MG CAP PO SCH ×3 (07:40→20:07)
[2017-03-20] MEDS: CALCIUM CARBONATE 500 MG CHEWABLE PO SCH ×4 (07:40→20:07)
[2017-03-20] MEDS: PANTOprazole SOD 40 MG TAB PO SCH (07:41)
[2017-03-20] MEDS: NYSTATIN POWDER 15GM BTL EXT SCH ×2 (07:41→20:07)
[2017-03-20] MEDS: POT PHOSPHATE MONOBASIC W/ SOD TAB PO SCH ×4 (07:41→20:07)
[2017-03-20] MEDS: DOCUSATE SODIUM 100 MG CAP PO SCH ×2 (07:41→20:06)
[2017-03-20] MEDS: HEPARIN SOD 5000 UNIT/0.5 ML CARP SQ SCH ×2 (07:45→20:08)
[2017-03-20] MEDS: SULFAMETHOXAZOLE/TRIMETHOPRIM DS 800/160MG TAB PO SCH (08:08)
[2017-03-20] MEDS ORDERED: DEXTROSE 5% IV SCH (08:45)
[2017-03-20] MEDS ORDERED: CALCIUM GLUCONATE IV SCH (08:45)
--- NOTE | 2017-03-20 08:58 | Family Medicine Progress Note ---
Progress Note Date of Service Mar 20, 2017. Subjective Pt evaluation today including: conversation w/ patient, physical exam, chart review, lab review, review of studies, conversation w/ analytics consultant, review of inpatient medication list Pain: none PO Intake: good Voiding: no voiding problems Patient feeling well and without new complaints Constitutional: No fever, No chills Respiratory: No cough, No sputum, No shortness of breath Cardiovascular: No chest pain, No edema, No palpitations Abdomen: No pain, No nausea, No vomiting, No diarrhea Male : No dysuria, No urinary frequency, No incontinence Endo: No fatigue, No excessive thirst, No excessive urination Skin: No rash, No itch, No new/changing skin lesions Medications Current Inpatient Medications Medications (Trade) Dose Ordered Sig/Jonathan Route Start Time Stop Time Status Last Admin Dose Admin Acetaminophen (Tylenol Tab) 650 mg Q4H PRN PO 03/15/17 14:15 04/14/17 14:14 Tamsulosin HCl (Flomax Cap) 0.8 mg HS PO 03/15/17 21:00 04/14/17 20:59 03/19/17 20:18 0.8 MG Miscellaneous Information (Order Awaiting Action) 1 ea QS N/A 03/15/17 16:00 04/14/17 15:59 Pantoprazole Sodium (Protonix Tab) 40 mg QAM PO 03/16/17 09:00 04/15/17 08:59 03/20/17 07:41 40 MG Ranitidine HCl (zANTac TAB) 300 mg HS PO 03/15/17 21:00 04/14/17 20:59 03/19/17 20:16 300 MG Polyethylene (Miralax Powder Packet) 17 gm DAILY PRN PO 03/15/17 15:00 04/14/17 14:59 Docusate Sodium (coLACE CAP) 100 mg BID PO 03/15/17 21:00 04/14/17 20:59 03/20/17 07:41 100 MG Bisacodyl (Dulcolax Supp) 10 mg DAILY PRN [place] 03/15/17 15:00 04/14/17 14:59 Heparin Sodium (Porcine) (Heparin Sq 5000 Unit/0.5ml) 5,000 unit Q12 SQ 03/15/17 21:00 04/14/17 20:59 03/20/17 07:45 5,000 UNIT Desonide (Desowen 0.05% Crm) 1 appln BID EXT 03/15/17 21:00 04/14/17 20:59 03/20/17 07:40 1 APPLN Nystatin (Mycostatin Susp) 5 ml QID PO 03/15/17 17:00 03/25/17 16:59 03/20/17 07:40 5 ML Nystatin (Mycostatin Powder) 1 appln BID EXT 03/15/17 21:00 04/14/17 20:59 03/20/17 07:41 1 APPLN Calcium Carbonate (Tums Chew Tab) 2,000 mg QID PO 03/16/17 17:00 04/15/17 08:59 03/20/17 07:40 2,000 MG Potassium/ Phosphorus/Sodium (Phospha 250 Neutral 155-852-130 Mg) 1 tab QID PO 03/16/17 17:00 04/15/17 16:59 03/20/17 07:41 1 TAB Cholecalciferol (Vitamin D Tab) 5,000 inter.unit QAM PO 03/18/17 09:00 04/17/17 08:59 03/20/17 07:40 5,000 INTER.UNIT Calcitriol (Rocaltrol Cap) 1 mcg QAM PO 03/18/17 09:00 04/17/17 08:59 03/20/17 07:39 1 MCG Calcium Carbonate (oS-Randy 500 TAB) 1,250 mg QID PO 03/18/17 09:00 04/17/17 08:59 03/20/17 07:39 1,250 MG Trimethoprim/ Sulfamethoxazole (Septra Ds 800/ 160MG Tab) 1 tab DAILY PO 03/19/17 09:00 03/29/17 08:59 03/20/17 08:08 1 TAB Miscellaneous (Tap Water Enema) 1 ea Q2D PRN [place] 03/18/17 13:30 04/17/17 13:29 Heparin Sodium (Porcine) (Heparin 10 Unit/ ml 5 ml Flush) 5 ml PRN PRN FLUSH 03/18/17 15:30 04/17/17 15:29 03/19/17 13:04 5 ML Amoxicillin (Amoxil Cap) 250 mg TID PO 03/19/17 21:00 03/24/17 20:59 03/20/17 07:40 250 MG Calcium Gluconate 4000 mg/Sodium Chloride 140 ml @ 140 mls/hr 0900 IV 03/20/17 09:00 03/20/17 12:00 Magnesium Sulfate 1 gm/Prmx 100 ml @ 100 mls/hr Q1H IV 03/20/17 10:00 03/20/17 11:59 Calcium Gluconate 3000 mg/Dextrose 280 ml @ 125 mls/min Q3M IV 03/20/17 08:45 04/19/17 08:44 UNV Objective Vital Signs Date Time Temp Pulse Resp B/P (MAP) Pulse Ox O2 Delivery O2 Flow Rate FiO2 03/20/17 08:00 Room Air 03/20/17 07:31 37.0 86 18 107/65 (79) 96 Room Air 03/20/17 04:00 Room Air 03/20/17 03:38 37.0 93 16 102/54 (70) 94 Room Air 03/19/17 23:59 Room Air 03/19/17 23:40 37.6 88 17 105/62 (76) 94 Room Air 03/19/17 20:05 Room Air 03/19/17 19:51 37.2 91 20 118/73 (88) 96 Room Air 03/19/17 16:00 Room Air 03/19/17 15:20 37.5 91 18 109/66 (80) 96 Room Air 03/19/17 12:00 Room Air 03/19/17 11:25 37.2 87 18 104/51 (68) 96 Room Air Physical Exam Notes: General Appearance: WD/WN, no apparent distress ENT: hearing grossly normal Neck: supple, no JVD, no carotid bruits, trachea midline Respiratory/Chest: lungs clear, no respiratory distress, no accessory muscle use Cardiovascular: regular rate, rhythm, no edema, no murmur Abdomen: normal bowel sounds, non tender, soft Extremities: non-tender, no pedal edema, no calf tenderness, + pertinent finding (mild erythema over R antecubital fossa) Neurologic/Psychiatric: alert, normal mood/affect, oriented x 3 Skin: normal color, warm/dry, no rash Laboratory Results Results Past 24 Hours Test 03/19/17 09:02 03/19/17 15:15 03/20/17 04:05 Range/Units Ionized Calcium 0.91 1.12-1.32 mmol/l Sodium Level 136 137 136-145 mmol/L Potassium Level 4.4 4.3 3.5-5.1 mmol/L Chloride Level 105 108 98-107 mmol/L Carbon Dioxide Level 23 23 21-32 mmol/L Anion Gap 8.0 6.0 3-11 mmol/L Blood Urea Nitrogen 9 8 7-18 mg/dl Creatinine 1.28 1.22 0.60-1.40 mg/dl Est Creatinine Clear Calc Drug Dose 38.0 39.9 ml/min Estimated GFR () 59.6 63.2 Estimated GFR (Non- 51.4 54.5 BUN/Creatinine Ratio 7.1 6.5 10-20 Random Glucose 112 104 70-99 mg/dl Calcium Level 6.1 6.0 8.5-10.1 mg/dl Total Bilirubin 0.4 0.5 0.2-1 mg/dl Aspartate Amino Transf (AST/SGOT) 17 16 15-37 U/L Alanine Aminotransferase (ALT/SGPT) 15 13 12-78 U/L Alkaline Phosphatase 1028 1038 45-117 U/L Total Protein 5.9 5.8 6.4-8.2 gm/dl Albumin 2.6 2.4 3.4-5.0 gm/dl Globulin 3.3 3.4 2.5-4.0 gm/dl Albumin/Globulin Ratio 0.8 0.7 0.9-2 White Blood Count 5.37 4.8-10.8 K/uL Red Blood Count 3.68 4.7-6.1 M/uL Hemoglobin 10.1 14.0-18.0 g/dL Hematocrit 31.9 42-52 % Mean Corpuscular Volume 86.7 80-100 fL Mean Corpuscular Hemoglobin 27.4 25-34 pg Mean Corpuscular Hemoglobin Concent 31.7 32-36 g/dl RDW Standard Deviation 54.3 36.4-46.3 fL RDW Coefficient of Variation 17.2 11.5-14.5 % Platelet Count 138 130-400 K/uL Mean Platelet Volume 8.5 7.4-10.4 fL Magnesium Level 1.7 1.8-2.4 mg/dl Assessment and Plan Mr. Greene is an 81 year old man here for hypocalcemia (likely 2/2 to Chemo for mets prost ca) and UTI Hypocalcemia secondary to Denosumab injection in the setting of metastatic prostate CA - patient received injection of Denosumab on 03/02 - calcium this am was 6.0, corrected calcium 7.3 (improved) - Vit D, Calcitriol, Tums - Continue supplementation with Ca. Glu- will given 2000mg IV this morning - Monitor mag/phos ---> mag 1.7 this morning, given 2 grams this morning - monitor on tele due to qt prolongation ---> EKG 450 yesterday Superficial thrombophlebitis of left arm. Much improved. - Ultrasound confirmation of superficial thrombus involving the cephalic vein - IV removed and PICC line consented for other arm (Given large amounts of IV Ca ) - Warm compress Complicated UTI in the setting of chronic bey and prostate Ca - Question colonization vs true infection - Rocephin initially switched to Keflex due to concern for interaction with large doses of Calcium. Now on bactrim. Add amoxicillin. - Final Culture results indicate two species - Stenotrophomonas and enterococcus. Prostate Ca with mets to bone - continue tamsulosin, finasteride Chronic constipation - colace bid, prn miralax and suppositories - Tap water enema Emiliana/thrush - nystatin swish and swallow, nystatin powder for groin Seborrheic dermatitis - desonide for face bid x14 days CKD - Creatinine 1.22 - avoid nephrotoxins where possible DNR -Heparin subq for DVT proph Dispo: PT/OT DNR Continued [facility] stay due to: multiple IV medications needed Discharge planning: home with home health Reviewed: Pt Seen/Exam by Me History no new concerns Constitutional: denies: fever Respiratory: negative: short of breath Cardiovascular: denies chest pain Gastrointestinal/Abdominal: negative: abdominal pain General Appearance: no apparent distress Respiratory: lungs clear, no respiratory distress Cardiovascular: regular rate, rhythm Neurologic/Psychiatric: alert, oriented x 3 Skin Characteristics: warm/dry Assessment/Plan Resident Physician Supervision Note: I independently interviewed and examined the patient and verified the acevedo history and physical, reviewed labs and image studies, discussed the case with the resident Dr. Alberto, edited the above note and agree with the findings and care plan.
[2017-03-20] MEDS ORDERED: CALCIUM GLUCONATE 10% 4,000 MG in SODIUM CHLORIDE 0.9% 100ML 100 ML IV SCH (09:00)
[2017-03-20] MEDS: MAGNESIUM SULFATE 1GM / D5W 1 GM in PREMIXED IN D5W 100 ML IV SCH ×2 (10:03→11:13)
--- NOTE | 2017-03-20 10:36 | Nephrology Progress Note ---
Nephrology Progress Note Date of Service Mar 20, 2017. Chief Complaint Hypocalcemia, metastatic prostate cancer Subjective Mr. Greene was seen & examined in the PCU this morning. He was resting comfortably in bed and denied fever, angina, dyspnea or uremic symptoms. He has no muscle spasms. He voiced no new medical concerns. Review of Systems Constitutional: No fever Cardiovascular: No chest pain Respiratory: No dyspnea at rest Abdomen: No pain, No nausea Extremities: No leg edema A complete review of systems was performed. Pertinent positives are noted above. All other systems are negative. Vital Signs Last 8 Hrs Date Time Temp Pulse Resp B/P (MAP) Pulse Ox O2 Delivery O2 Flow Rate FiO2 03/20/17 08:00 Room Air 03/20/17 07:31 37.0 86 18 107/65 (79) 96 Room Air 03/20/17 04:00 Room Air 03/20/17 03:38 37.0 93 16 102/54 (70) 94 Room Air Last Recorded Weight Weight (Kilograms): 66.800 Physical Exam General Appearance: no apparent distress Head: normocephalic, atraumatic Eyes: PERRL Neck: no adenopathy Respiratory/Chest: lungs clear, no respiratory distress Cardiovascular: regular rate, rhythm Abdomen/GI: normal bowel sounds, non tender, soft Extremities/Musculoskelatal: no pedal edema Neurologic/Psych: alert, oriented x 3 Social History Drug Use: none Marital Status: Housing Status: lives with family (lives with son) 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9 gm/dl (6.4-8.2) 5.8 gm/dl (6.4-8.2) Albumin 2.6 gm/dl (3.4-5.0) 2.4 gm/dl (3.4-5.0) Globulin 3.3 gm/dl (2.5-4.0) 3.4 gm/dl (2.5-4.0) Albumin/Globulin Ratio 0.8 (0.9-2) 0.7 (0.9-2) Red Blood Count 3.68 M/uL (4.7-6.1) Mean Corpuscular Volume 86.7 fL (80-100) Mean Corpuscular Hemoglobin 27.4 pg (25-34) Mean Corpuscular Hemoglobin Concent 31.7 g/dl (32-36) RDW Standard Deviation 54.3 fL (36.4-46.3) RDW Coefficient of Variation 17.2 % (11.5-14.5) Mean Platelet Volume 8.5 fL (7.4-10.4) Magnesium Level 1.7 mg/dl (1.8-2.4) Allergies Coded Allergies: No Known Allergies (Unverified , 03/15/17) Medications Current Inpatient Medications Medications (Trade) Dose Ordered Sig/Jonathan Route Start Time Stop Time Status Last Admin Dose Admin Acetaminophen (Tylenol Tab) 650 mg Q4H PRN PO 03/15/17 14:15 04/14/17 14:14 Tamsulosin HCl (Flomax Cap) 0.8 mg HS PO 03/15/17 21:00 04/14/17 20:59 03/19/17 20:18 0.8 MG Miscellaneous Information (Order Awaiting Action) 1 ea QS N/A 03/15/17 16:00 04/14/17 15:59 Pantoprazole Sodium (Protonix Tab) 40 mg QAM PO 03/16/17 09:00 04/15/17 08:59 03/20/17 07:41 40 MG Ranitidine HCl (zANTac TAB) 300 mg HS PO 03/15/17 21:00 04/14/17 20:59 03/19/17 20:16 300 MG Polyethylene (Miralax Powder Packet) 17 gm DAILY PRN PO 03/15/17 15:00 04/14/17 14:59 Docusate Sodium (coLACE CAP) 100 mg BID PO 03/15/17 21:00 04/14/17 20:59 03/20/17 07:41 100 MG Bisacodyl (Dulcolax Supp) 10 mg DAILY PRN [place] 03/15/17 15:00 04/14/17 14:59 Heparin Sodium (Porcine) (Heparin Sq 5000 Unit/0.5ml) 5,000 unit Q12 SQ 03/15/17 21:00 04/14/17 20:59 03/20/17 07:45 5,000 UNIT Desonide (Desowen 0.05% Crm) 1 appln BID EXT 03/15/17 21:00 04/14/17 20:59 03/20/17 07:40 1 APPLN Nystatin (Mycostatin Susp) 5 ml QID PO 03/15/17 17:00 03/25/17 16:59 03/20/17 07:40 5 ML Nystatin (Mycostatin Powder) 1 appln BID EXT 03/15/17 21:00 04/14/17 20:59 03/20/17 07:41 1 APPLN Calcium Carbonate (Tums Chew Tab) 2,000 mg QID PO 03/16/17 17:00 04/15/17 08:59 03/20/17 07:40 2,000 MG Potassium/ Phosphorus/Sodium (Phospha 250 Neutral 155-852-130 Mg) 1 tab QID PO 03/16/17 17:00 04/15/17 16:59 03/20/17 07:41 1 TAB Cholecalciferol (Vitamin D Tab) 5,000 inter.unit QAM PO 03/18/17 09:00 04/17/17 08:59 03/20/17 07:40 5,000 INTER.UNIT Calcitriol (Rocaltrol Cap) 1 mcg QAM PO 03/18/17 09:00 3/6/18 08:59 03/20/17 07:39 1 MCG Calcium Carbonate (oS-Randy 500 TAB) 1,250 mg QID PO 03/18/17 09:00 04/17/17 08:59 03/20/17 07:39 1,250 MG Trimethoprim/ Sulfamethoxazole (Septra Ds 800/ 160MG Tab) 1 tab DAILY PO 03/19/17 09:00 03/29/17 08:59 03/20/17 08:08 1 TAB Miscellaneous (Tap Water Enema) 1 ea Q2D PRN [place] 03/18/17 13:30 04/17/17 13:29 Heparin Sodium (Porcine) (Heparin 10 Unit/ ml 5 ml Flush) 5 ml PRN PRN FLUSH 03/18/17 15:30 04/17/17 15:29 03/19/17 13:04 5 ML Amoxicillin (Amoxil Cap) 250 mg TID PO 03/19/17 21:00 03/24/17 20:59 03/20/17 07:40 250 MG Calcium Gluconate 4000 mg/Sodium Chloride 140 ml @ 140 mls/hr 0900 IV 03/20/17 09:00 03/20/17 12:00 03/20/17 09:01 140 MLS/HR Magnesium Sulfate 1 gm/Prmx 100 ml @ 100 mls/hr Q1H IV 03/20/17 10:00 03/20/17 11:59 03/20/17 10:03 100 MLS/HR Calcium Gluconate 3000 mg/Dextrose 280 ml @ 125 mls/min Q3M IV 03/20/17 08:45 04/19/17 08:44 UNV Impression (1) Hypocalcemia (2) Prostate cancer (3) Hypertension Mr. 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 He developed hypocalcemia following treatment with Denosumab. EKG documented new QTc prolongation. QTc has improved to 380. 25OH D deficiency documented. He has received ergocalciferol 57815 IU and is taking daily cholecalciferol. Calcitriol is being provided. Aggressive replacement with PO and IV calcium continues. The patient has associated hypomagnesemia. This is being treated with IV magnesium sulfate. Recommendations HYPOCALCEMIA: -- 4 grams of calcium gluconate IV ordered this morning by primary service -- Repeat calcium ordered at 1pm today -- Continue oral Ca and vitamin D supplements -- Will order follow up vitamin D level -- Once serum calcium ~ 8.0 will stop IV Ca and transition to oral calcium supplements HYPOMAGNESEMIA: -- Serum Mg is low. Agree w/ Mg supplementation
[2017-03-20 11:51] VITALS: BP 121/57; PULSE 77; TEMP 37; O2SAT 96
[2017-03-20 14:08] LABS: ALBUMIN 2.4 gm/dl (3.4-5.0); CALCIUM 6.6 mg/dl (8.5-10.1); CREATININE 1.19 mg/dl (0.60-1.40); POTASSIUM 4.4 mmol/L (3.5-5.1)
[2017-03-20 14:11] LABS: TOTAL PROTEIN 5.7 gm/dl (6.4-8.2)
[2017-03-20 15:49] VITALS: BP 114/67; PULSE 82; TEMP 36.9; O2SAT 95
[2017-03-20] MEDS ORDERED: CALCIUM GLUCONATE 10% 4,000 MG in SODIUM CHLORIDE 0.9% 100ML 100 ML IV ONE (16:45)
[2017-03-20 19:49] VITALS: BP 125/57; PULSE 94; TEMP 37.8; O2SAT 96
[2017-03-20] MEDS: RANITIDINE HCL 150 MG TAB PO SCH (20:06)
[2017-03-20] MEDS: TAMSULOSIN HCL 0.4 MG CAP PO SCH (20:12)
[2017-03-20 23:35] VITALS: BP 119/64; PULSE 88; TEMP 37.5; O2SAT 96
[2017-03-21 03:33] VITALS: BP 112/71; PULSE 82; TEMP 37.1; O2SAT 95
[2017-03-21 04:23] LABS: HEMATOCRIT 30.6 % (42-52); HEMOGLOBIN 10.2 g/dL (14.0-18.0); MEAN CELL VOLUME 86.4 fL (80-100); MEAN CORPUSCULAR HEMOGLOBIN 28.8 pg (25-34); MEAN CORPUSCULAR HGB CONC 33.3 g/dl (32-36); MEAN PLATELET VOLUME 8.4 fL (7.4-10.4); PLATELET COUNT 133 K/uL (130-400); RED CELL DISTRIBUTION WIDTH CV 17.2 % (11.5-14.5); RED CELL DISTRIBUTION WIDTH SD 54.2 fL (36.4-46.3); WHITE BLOOD COUNT 5.17 K/uL (4.8-10.8)
[2017-03-21 04:47] LABS: ALBUMIN 2.5 gm/dl (3.4-5.0); CALCIUM 6.2 mg/dl (8.5-10.1); CREATININE 1.18 mg/dl (0.60-1.40); POTASSIUM 4.7 mmol/L (3.5-5.1)
[2017-03-21 05:01] LABS: TOTAL PROTEIN 5.9 gm/dl (6.4-8.2)
[2017-03-21 07:55] VITALS: BP 105/60; PULSE 86; TEMP 36.9; O2SAT 96
[2017-03-21] MEDS: AMOXICILLIN 250 MG CAP PO SCH ×3 (09:02→20:46)
[2017-03-21] MEDS: SULFAMETHOXAZOLE/TRIMETHOPRIM DS 800/160MG TAB PO SCH (09:02)
[2017-03-21] MEDS: NYSTATIN POWDER 15GM BTL EXT SCH ×2 (09:03→20:45)
[2017-03-21] MEDS: PANTOprazole SOD 40 MG TAB PO SCH (09:03)
[2017-03-21] MEDS: POT PHOSPHATE MONOBASIC W/ SOD TAB PO SCH ×4 (09:03→20:44)
[2017-03-21] MEDS: NYSTATIN SUSP 500,000 U/5 ML UDC PO SCH ×4 (09:03→20:44)
[2017-03-21] MEDS: CALCIUM CARBONATE 500 MG CHEWABLE PO SCH ×4 (09:03→20:45)
[2017-03-21] MEDS: CALCITRIOL 0.25 MCG CAP PO SCH (09:04)
[2017-03-21] MEDS: DESONIDE CR 15 GM TUBE EXT SCH ×2 (09:04→20:46)
[2017-03-21] MEDS: DOCUSATE SODIUM 100 MG CAP PO SCH ×2 (09:05→20:43)
[2017-03-21] MEDS: CALCIUM CARBONATE 1250MG TAB PO SCH ×4 (09:05→20:43)
[2017-03-21] MEDS: CHOLECALCIFEROL 1000 INTER.UNIT TAB PO SCH (09:05)
[2017-03-21] MEDS: HEPARIN SOD 5000 UNIT/0.5 ML CARP SQ SCH ×2 (09:10→20:52)
--- NOTE | 2017-03-21 10:20 | Nephrology Progress Note ---
Nephrology Progress Note Date of Service Mar 21, 2017. Chief Complaint Hypocalcemia, metastatic prostate cancer Subjective Mr. Greene was seen & examined in the PCU this morning He denied muscle cramping or palpitations. He voiced no new medical concerns. Review of Systems Constitutional: No fever Cardiovascular: No chest pain Respiratory: No dyspnea at rest Abdomen: No pain, No nausea, No vomiting Extremities: No leg edema A complete review of systems was performed. Pertinent positives are noted above. All other systems are negative. Vital Signs Last 8 Hrs Date Time Temp Pulse Resp B/P (MAP) Pulse Ox O2 Delivery O2 Flow Rate FiO2 03/21/17 07:55 36.9 86 20 105/60 (75) 96 Room Air 03/21/17 04:00 Room Air 03/21/17 03:33 37.1 82 17 112/71 (85) 95 Room Air Last Recorded Weight Weight (Kilograms): 65.700 Physical Exam General Appearance: no apparent distress Head: normocephalic, atraumatic Eyes: PERRL, EOMI Neck: no adenopathy Respiratory/Chest: lungs clear Cardiovascular: regular rate, rhythm, + systolic murmur Abdomen/GI: normal bowel sounds, non tender, soft Extremities/Musculoskelatal: no pedal edema Neurologic/Psych: alert, oriented x 3 Social History Drug Use: none Marital Status: Housing Status: lives with family (lives with son) 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 03/21/17 04:06 03/20/17 13:16 03/21/17 04:06 Test 03/20/17 13:16 03/21/17 04:06 Anion Gap 9.0 mmol/L (3-11) 4.0 mmol/L (3-11) Est Creatinine Clear Calc Drug Dose 40.9 ml/min 41.3 ml/min Estimated GFR () 65.1 65.7 Estimated GFR (Non- 56.2 56.7 BUN/Creatinine Ratio 6.0 (10-20) 5.6 (10-20) Calcium Level 6.6 mg/dl (8.5-10.1) 6.2 mg/dl (8.5-10.1) Total Bilirubin 0.3 mg/dl (0.2-1) 0.4 mg/dl (0.2-1) Aspartate Amino Transf (AST/SGOT) 17 U/L (15-37) 17 U/L (15-37) Alanine Aminotransferase (ALT/SGPT) 13 U/L (12-78) 14 U/L (12-78) Alkaline Phosphatase 995 U/L (45-117) 1048 U/L (45-117) Total Protein 5.7 gm/dl (6.4-8.2) 5.9 gm/dl (6.4-8.2) Albumin 2.4 gm/dl (3.4-5.0) 2.5 gm/dl (3.4-5.0) Globulin 3.3 gm/dl (2.5-4.0) 3.4 gm/dl (2.5-4.0) Albumin/Globulin Ratio 0.7 (0.9-2) 0.7 (0.9-2) Red Blood Count 3.54 M/uL (4.7-6.1) Mean Corpuscular Volume 86.4 fL (80-100) Mean Corpuscular Hemoglobin 28.8 pg (25-34) Mean Corpuscular Hemoglobin Concent 33.3 g/dl (32-36) RDW Standard Deviation 54.2 fL (36.4-46.3) RDW Coefficient of Variation 17.2 % (11.5-14.5) Mean Platelet Volume 8.4 fL (7.4-10.4) Magnesium Level 2.0 mg/dl (1.8-2.4) 25-Hydroxy Vitamin D Total 35.6 ng/ml (30-100) Allergies Coded Allergies: No Known Allergies (Unverified , 03/15/17) Medications Current Inpatient Medications Medications (Trade) Dose Ordered Sig/Jonathan Route Start Time Stop Time Status Last Admin Dose Admin Acetaminophen (Tylenol Tab) 650 mg Q4H PRN PO 03/15/17 14:15 04/14/17 14:14 Tamsulosin HCl (Flomax Cap) 0.8 mg HS PO 03/15/17 21:00 04/14/17 20:59 03/20/17 20:12 0.8 MG Miscellaneous Information (Order Awaiting Action) 1 ea QS N/A 03/15/17 16:00 04/14/17 15:59 Pantoprazole Sodium (Protonix Tab) 40 mg QAM PO 03/16/17 09:00 04/15/17 08:59 03/21/17 09:03 40 MG Ranitidine HCl (zANTac TAB) 300 mg HS PO 03/15/17 21:00 04/14/17 20:59 03/20/17 20:06 300 MG Polyethylene (Miralax Powder Packet) 17 gm DAILY PRN PO 03/15/17 15:00 04/14/17 14:59 Docusate Sodium (coLACE CAP) 100 mg BID PO 03/15/17 21:00 04/14/17 20:59 03/21/17 09:05 100 MG Bisacodyl (Dulcolax Supp) 10 mg DAILY PRN [place] 03/15/17 15:00 04/14/17 14:59 Heparin Sodium (Porcine) (Heparin Sq 5000 Unit/0.5ml) 5,000 unit Q12 SQ 03/15/17 21:00 04/14/17 20:59 03/21/17 09:10 5,000 UNIT Desonide (Desowen 0.05% Crm) 1 appln BID EXT 03/15/17 21:00 04/14/17 20:59 03/21/17 09:04 1 APPLN Nystatin (Mycostatin Susp) 5 ml QID PO 03/15/17 17:00 03/25/17 16:59 03/21/17 09:03 5 ML Nystatin (Mycostatin Powder) 1 appln BID EXT 03/15/17 21:00 04/14/17 20:59 03/21/17 09:03 1 APPLN Calcium Carbonate (Tums Chew Tab) 2,000 mg QID PO 03/16/17 17:00 04/15/17 08:59 03/21/17 09:03 2,000 MG Potassium/ Phosphorus/Sodium (Phospha 250 Neutral 155-852-130 Mg) 1 tab QID PO 03/16/17 17:00 04/15/17 16:59 03/21/17 09:03 1 TAB Cholecalciferol (Vitamin D Tab) 5,000 inter.unit QAM PO 03/18/17 09:00 04/17/17 08:59 03/21/17 09:05 5,000 INTER.UNIT Calcitriol (Rocaltrol Cap) 1 mcg QAM PO 03/18/17 09:00 3/6/18 08:59 03/21/17 09:04 1 MCG Calcium Carbonate (oS-Randy 500 TAB) 1,250 mg QID PO 03/18/17 09:00 04/17/17 08:59 03/21/17 09:05 1,250 MG Trimethoprim/ Sulfamethoxazole (Septra Ds 800/ 160MG Tab) 1 tab DAILY PO 03/19/17 09:00 03/29/17 08:59 03/21/17 09:02 1 TAB Miscellaneous (Tap Water Enema) 1 ea Q2D PRN [place] 03/18/17 13:30 04/17/17 13:29 Heparin Sodium (Porcine) (Heparin 10 Unit/ ml 5 ml Flush) 5 ml PRN PRN FLUSH 03/18/17 15:30 04/17/17 15:29 03/19/17 13:04 5 ML Amoxicillin (Amoxil Cap) 250 mg TID PO 03/19/17 21:00 03/24/17 20:59 03/21/17 09:02 250 MG Impression (1) Hypocalcemia (2) Prostate cancer (3) Hypertension Mr. 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 He developed hypocalcemia following treatment with Denosumab. EKG documented new QTc prolongation. QTc has improved to 380. 25OH D deficiency documented. He has received ergocalciferol 40033 IU and is taking daily cholecalciferol. Calcitriol is being provided. Aggressive replacement with PO and IV calcium continues. The patient has associated hypomagnesemia. This is being treated with IV magnesium sulfate. Recommendations HYPOCALCEMIA: -- Will provide 3 g IV Calcium Gluconate this am -- Repeat calcium ordered at 3 pm today -- Continue oral Ca and vitamin D supplements -- Vitamin D level is now acceptable at ~ 35 -- Once serum calcium ~ 8.0 will stop IV Ca and transition to oral calcium supplements HYPOMAGNESEMIA: -- Serum Mg has corrected. Will monitor.
[2017-03-21] MEDS ORDERED: DEXTROSE 5% IV SCH (10:30)
[2017-03-21] MEDS ORDERED: CALCIUM GLUCONATE IV SCH (10:30)
--- NOTE | 2017-03-21 11:37 | Family Medicine Progress Note ---
Progress Note Date of Service Mar 21, 2017. Subjective Pt evaluation today including: conversation w/ patient, physical exam, chart review, lab review, conversation w/ internet marketing consultant, review of inpatient medication list Pain: none PO Intake: good Voiding: no voiding problems Patient feeling well and without any complaints today Constitutional: No fever, No chills Respiratory: No cough, No sputum, No shortness of breath Cardiovascular: No chest pain, No edema Abdomen: No pain, No nausea, No vomiting Musculoskeletal: No joint pain, No muscle pain, No swelling Male : No dysuria, No incontinence Medications Current Inpatient Medications Medications (Trade) Dose Ordered Sig/Jonathan Route Start Time Stop Time Status Last Admin Dose Admin Acetaminophen (Tylenol Tab) 650 mg Q4H PRN PO 03/15/17 14:15 04/14/17 14:14 Tamsulosin HCl (Flomax Cap) 0.8 mg HS PO 03/15/17 21:00 04/14/17 20:59 03/20/17 20:12 0.8 MG Miscellaneous Information (Order Awaiting Action) 1 ea QS N/A 03/15/17 16:00 04/14/17 15:59 Pantoprazole Sodium (Protonix Tab) 40 mg QAM PO 03/16/17 09:00 04/15/17 08:59 03/21/17 09:03 40 MG Ranitidine HCl (zANTac TAB) 300 mg HS PO 03/15/17 21:00 04/14/17 20:59 03/20/17 20:06 300 MG Polyethylene (Miralax Powder Packet) 17 gm DAILY PRN PO 03/15/17 15:00 04/14/17 14:59 Docusate Sodium (coLACE CAP) 100 mg BID PO 03/15/17 21:00 04/14/17 20:59 03/21/17 09:05 100 MG Bisacodyl (Dulcolax Supp) 10 mg DAILY PRN [place] 03/15/17 15:00 04/14/17 14:59 Heparin Sodium (Porcine) (Heparin Sq 5000 Unit/0.5ml) 5,000 unit Q12 SQ 03/15/17 21:00 04/14/17 20:59 03/21/17 09:10 5,000 UNIT Desonide (Desowen 0.05% Crm) 1 appln BID EXT 03/15/17 21:00 3/3/18 20:59 03/21/17 09:04 1 APPLN Nystatin (Mycostatin Susp) 5 ml QID PO 03/15/17 17:00 03/25/17 16:59 03/21/17 09:03 5 ML Nystatin (Mycostatin Powder) 1 appln BID EXT 03/15/17 21:00 04/14/17 20:59 03/21/17 09:03 1 APPLN Calcium Carbonate (Tums Chew Tab) 2,000 mg QID PO 03/16/17 17:00 04/15/17 08:59 03/21/17 09:03 2,000 MG Potassium/ Phosphorus/Sodium (Phospha 250 Neutral 155-852-130 Mg) 1 tab QID PO 03/16/17 17:00 04/15/17 16:59 03/21/17 09:03 1 TAB Cholecalciferol (Vitamin D Tab) 5,000 inter.unit QAM PO 03/18/17 09:00 04/17/17 08:59 03/21/17 09:05 5,000 INTER.UNIT Calcitriol (Rocaltrol Cap) 1 mcg QAM PO 03/18/17 09:00 04/17/17 08:59 03/21/17 09:04 1 MCG Calcium Carbonate (oS-Randy 500 TAB) 1,250 mg QID PO 03/18/17 09:00 04/17/17 08:59 03/21/17 09:05 1,250 MG Trimethoprim/ Sulfamethoxazole (Septra Ds 800/ 160MG Tab) 1 tab DAILY PO 03/19/17 09:00 03/29/17 08:59 03/21/17 09:02 1 TAB Miscellaneous (Tap Water Enema) 1 ea Q2D PRN [place] 03/18/17 13:30 04/17/17 13:29 Heparin Sodium (Porcine) (Heparin 10 Unit/ ml 5 ml Flush) 5 ml PRN PRN FLUSH 03/18/17 15:30 04/17/17 15:29 03/19/17 13:04 5 ML Amoxicillin (Amoxil Cap) 250 mg TID PO 03/19/17 21:00 03/24/17 20:59 03/21/17 09:02 250 MG Calcium Gluconate 3000 mg/Dextrose 280 ml @ 125 mls/hr Q2H15M IV 03/21/17 10:30 03/21/17 12:44 03/21/17 10:58 125 MLS/HR Objective Vital Signs Date Time Temp Pulse Resp B/P (MAP) Pulse Ox O2 Delivery O2 Flow Rate FiO2 03/21/17 08:00 Room Air 03/21/17 07:55 36.9 86 20 105/60 (75) 96 Room Air 03/21/17 04:00 Room Air 03/21/17 03:33 37.1 82 17 112/71 (85) 95 Room Air 03/21/17 00:01 Room Air 03/20/17 23:35 37.5 88 16 119/64 (82) 96 Room Air 03/20/17 20:00 Room Air 03/20/17 19:49 37.8 94 23 125/57 (79) 96 Room Air 03/20/17 16:00 Room Air 03/20/17 15:49 36.9 82 18 114/67 (83) 95 Room Air 03/20/17 12:00 Room Air 03/20/17 11:51 37.0 77 18 121/57 (78) 96 Room Air Physical Exam Notes: General Appearance: WD/WN, no apparent distress ENT: hearing grossly normal Neck: supple, no JVD, no carotid bruits, trachea midline Respiratory/Chest: lungs clear, no respiratory distress, no accessory muscle use Cardiovascular: regular rate, rhythm, no edema, no murmur Abdomen: normal bowel sounds, non tender, soft Extremities: non-tender, no pedal edema, no calf tenderness, + pertinent finding (mild erythema and swelling over R antecubital fossa) Neurologic/Psychiatric: alert, normal mood/affect, oriented x 3 Skin: normal color, warm/dry, no rash Laboratory Results Results Past 24 Hours Test 03/20/17 13:16 03/21/17 04:06 Range/Units Sodium Level 138 137 136-145 mmol/L Potassium Level 4.4 4.7 3.5-5.1 mmol/L Chloride Level 107 109 98-107 mmol/L Carbon Dioxide Level 22 24 21-32 mmol/L Anion Gap 9.0 4.0 3-11 mmol/L Blood Urea Nitrogen 7 7 7-18 mg/dl Creatinine 1.19 1.18 0.60-1.40 mg/dl Est Creatinine Clear Calc Drug Dose 40.9 41.3 ml/min Estimated GFR () 65.1 65.7 Estimated GFR (Non- 56.2 56.7 BUN/Creatinine Ratio 6.0 5.6 10-20 Random Glucose 96 82 70-99 mg/dl Calcium Level 6.6 6.2 8.5-10.1 mg/dl Total Bilirubin 0.3 0.4 0.2-1 mg/dl Aspartate Amino Transf (AST/SGOT) 17 17 15-37 U/L Alanine Aminotransferase (ALT/SGPT) 13 14 12-78 U/L Alkaline Phosphatase 995 1048 45-117 U/L Total Protein 5.7 5.9 6.4-8.2 gm/dl Albumin 2.4 2.5 3.4-5.0 gm/dl Globulin 3.3 3.4 2.5-4.0 gm/dl Albumin/Globulin Ratio 0.7 0.7 0.9-2 White Blood Count 5.17 4.8-10.8 K/uL Red Blood Count 3.54 4.7-6.1 M/uL Hemoglobin 10.2 14.0-18.0 g/dL Hematocrit 30.6 42-52 % Mean Corpuscular Volume 86.4 80-100 fL Mean Corpuscular Hemoglobin 28.8 25-34 pg Mean Corpuscular Hemoglobin Concent 33.3 32-36 g/dl RDW Standard Deviation 54.2 36.4-46.3 fL RDW Coefficient of Variation 17.2 11.5-14.5 % Platelet Count 133 130-400 K/uL Mean Platelet Volume 8.4 7.4-10.4 fL Magnesium Level 2.0 1.8-2.4 mg/dl 25-Hydroxy Vitamin D Total 35.6 30-100 ng/ml Assessment and Plan Mr. Greene is an 81 year old man here for hypocalcemia (likely 2/2 to Chemo for mets prost ca) and UTI Hypocalcemia secondary to Denosumab injection in the setting of metastatic prostate CA - patient received injection of Denosumab on 03/02 - calcium this am was 6.2, corrected calcium 7.4 (improved) - Vit D, Calcitriol, Tums - Continue supplementation with Ca. Glu- 3000 of calcium gluconate given this am - Once Calcium 8 - transition to oral replacement. - Vitamin D now 35. - Monitor mag/phos ---> hypomagnesemia resolved - monitor on tele ---> EKG w/ qtc 450 two days ago Superficial thrombophlebitis of left arm. Much improved. - Ultrasound confirmation of superficial thrombus involving the cephalic vein - IV removed and PICC line consented for other arm (Given large amounts of IV Ca ) - Warm compress Complicated UTI in the setting of chronic bey and prostate Ca - Question colonization vs true infection - Rocephin initially switched to Keflex due to concern for interaction with large doses of Calcium. Now on bactrim. Add amoxicillin. Will need 10 day course - Final Culture results indicate two species - Stenotrophomonas and enterococcus. Prostate Ca with mets to bone - continue tamsulosin, finasteride Chronic constipation - colace bid, prn miralax and suppositories - Tap water enema Emiliana/thrush - nystatin swish and swallow, nystatin powder for groin Seborrheic dermatitis - desonide for face bid x14 days CKD - Creatinine 1.18 - avoid nephrotoxins where possible DNR -Heparin subq for DVT proph Dispo: PT/OT DNR Continued [facility] [place] stay due to: multiple IV medications needed Reviewed: Pt Seen/Exam by Me History no new concerns. Constitutional: denies: fever Respiratory: negative: short of breath Cardiovascular: denies chest pain Gastrointestinal/Abdominal: negative: abdominal pain General Appearance: no apparent distress Respiratory: no respiratory distress Cardiovascular: regular rate, rhythm Neurologic/Psychiatric: alert, oriented x 3 Skin Characteristics: warm/dry Assessment/Plan Resident Physician Supervision Note: I independently interviewed and examined the patient and verified the acevedo history and physical, reviewed labs and image studies, discussed the case with the resident Dr. Alberto, edited the above note and agree with the findings and care plan.
[2017-03-21 13:30] VITALS: BP 104/64; PULSE 85; TEMP 37; O2SAT 97
[2017-03-21 14:55] VITALS: BP 92/50; PULSE 74; TEMP 37; O2SAT 97
[2017-03-21 15:53] LABS: CALCIUM 6.7 mg/dl (8.5-10.1); CREATININE 1.13 mg/dl (0.60-1.40); POTASSIUM 4.7 mmol/L (3.5-5.1)
[2017-03-21] MEDS ORDERED: SODIUM CHLORIDE 0.9% IV ONE (16:30)
[2017-03-21] MEDS ORDERED: CALCIUM GLUCONATE IV ONE (16:30)
[2017-03-21 20:00] VITALS: BP 148/70; PULSE 85; TEMP 36.8; O2SAT 97
[2017-03-21] MEDS: RANITIDINE HCL 150 MG TAB PO SCH (20:44)
[2017-03-21] MEDS: TAMSULOSIN HCL 0.4 MG CAP PO SCH (20:44)
[2017-03-21 23:33] VITALS: BP 107/62; PULSE 81; TEMP 37.4; O2SAT 96
[2017-03-22 03:50] VITALS: BP 109/63; PULSE 75; TEMP 37.2; O2SAT 95
[2017-03-22 07:50] VITALS: BP 95/46; PULSE 85; TEMP 36.5; O2SAT 97
[2017-03-22 08:38] LABS: ALBUMIN 2.6 gm/dl (3.4-5.0); CALCIUM 6.5 mg/dl (8.5-10.1); CREATININE 1.06 mg/dl (0.60-1.40); POTASSIUM 4.7 mmol/L (3.5-5.1)
[2017-03-22] MEDS: DESONIDE CR 15 GM TUBE EXT SCH ×2 (08:48→20:16)
[2017-03-22] MEDS: NYSTATIN SUSP 500,000 U/5 ML UDC PO SCH ×4 (08:48→20:16)
[2017-03-22] MEDS: NYSTATIN POWDER 15GM BTL EXT SCH ×2 (08:48→20:16)
[2017-03-22] MEDS: CALCIUM CARBONATE 1250MG TAB PO SCH ×4 (08:48→20:15)
[2017-03-22] MEDS: CHOLECALCIFEROL 1000 INTER.UNIT TAB PO SCH (08:49)
[2017-03-22] MEDS: CALCITRIOL 0.25 MCG CAP PO SCH (08:49)
[2017-03-22] MEDS: POT PHOSPHATE MONOBASIC W/ SOD TAB PO SCH ×4 (08:49→20:15)
[2017-03-22] MEDS: SULFAMETHOXAZOLE/TRIMETHOPRIM DS 800/160MG TAB PO SCH (08:50)
[2017-03-22] MEDS: AMOXICILLIN 250 MG CAP PO SCH ×3 (08:50→20:17)
[2017-03-22] MEDS: PANTOprazole SOD 40 MG TAB PO SCH (08:50)
[2017-03-22] MEDS: CALCIUM CARBONATE 500 MG CHEWABLE PO SCH ×4 (08:50→20:14)
[2017-03-22] MEDS: HEPARIN SOD 5000 UNIT/0.5 ML CARP SQ SCH ×2 (08:52→20:26)
[2017-03-22 08:55] LABS: TOTAL PROTEIN 6.2 gm/dl (6.4-8.2)
[2017-03-22] MEDS: DOCUSATE SODIUM 100 MG CAP PO SCH ×2 (09:51→20:17)
--- NOTE | 2017-03-22 09:56 | Family Medicine Progress Note ---
Progress Note Date of Service Mar 22, 2017. Subjective Pt evaluation today including: conversation w/ patient, physical exam, chart review, lab review, conversation w/ databases computer consultant, review of inpatient medication list Pain: none PO Intake: good Voiding: no voiding problems Patient feeling well and without any new complaints today Constitutional: No fever, No chills Respiratory: No cough, No sputum, No shortness of breath Cardiovascular: No chest pain, No edema, No palpitations Abdomen: No pain, No nausea, No vomiting, No diarrhea Musculoskeletal: No joint pain, No muscle pain Male : No dysuria, No urinary frequency Medications Current Inpatient Medications Medications (Trade) Dose Ordered Sig/Jonathan Route Start Time Stop Time Status Last Admin Dose Admin Acetaminophen (Tylenol Tab) 650 mg Q4H PRN PO 03/15/17 14:15 04/14/17 14:14 Tamsulosin HCl (Flomax Cap) 0.8 mg HS PO 03/15/17 21:00 04/14/17 20:59 03/21/17 20:44 0.8 MG Miscellaneous Information (Order Awaiting Action) 1 ea QS N/A 03/15/17 16:00 04/14/17 15:59 Pantoprazole Sodium (Protonix Tab) 40 mg QAM PO 03/16/17 09:00 04/15/17 08:59 03/22/17 08:50 40 MG Ranitidine HCl (zANTac TAB) 300 mg HS PO 03/15/17 21:00 04/14/17 20:59 03/21/17 20:44 300 MG Polyethylene (Miralax Powder Packet) 17 gm DAILY PRN PO 03/15/17 15:00 04/14/17 14:59 Docusate Sodium (coLACE CAP) 100 mg BID PO 03/15/17 21:00 04/14/17 20:59 03/21/17 20:43 100 MG Bisacodyl (Dulcolax Supp) 10 mg DAILY PRN MS 03/15/17 15:00 04/14/17 14:59 Heparin Sodium (Porcine) (Heparin Sq 5000 Unit/0.5ml) 5,000 unit Q12 SQ 03/15/17 21:00 04/14/17 20:59 03/22/17 08:52 5,000 UNIT Desonide (Desowen 0.05% Crm) 1 appln BID EXT 03/15/17 21:00 04/14/17 20:59 03/22/17 08:48 1 APPLN Nystatin (Mycostatin Susp) 5 ml QID PO 03/15/17 17:00 03/25/17 16:59 03/22/17 08:48 5 ML Nystatin (Mycostatin Powder) 1 appln BID EXT 03/15/17 21:00 04/14/17 20:59 03/22/17 08:48 1 APPLN Calcium Carbonate (Tums Chew Tab) 2,000 mg QID PO 03/16/17 17:00 04/15/17 08:59 03/22/17 08:50 2,000 MG Potassium/ Phosphorus/Sodium (Phospha 250 Neutral 155-852-130 Mg) 1 tab QID PO 03/16/17 17:00 04/15/17 16:59 03/22/17 08:49 1 TAB Cholecalciferol (Vitamin D Tab) 5,000 inter.unit QAM PO 03/18/17 09:00 04/17/17 08:59 03/22/17 08:49 5,000 INTER.UNIT Calcitriol (Rocaltrol Cap) 1 mcg QAM PO 03/18/17 09:00 04/17/17 08:59 03/22/17 08:49 1 MCG Calcium Carbonate (oS-Randy 500 TAB) 1,250 mg QID PO 03/18/17 09:00 04/17/17 08:59 03/22/17 08:48 1,250 MG Trimethoprim/ Sulfamethoxazole (Septra Ds 800/ 160MG Tab) 1 tab DAILY PO 03/19/17 09:00 03/29/17 08:59 03/22/17 08:50 1 TAB Miscellaneous (Tap Water Enema) 1 ea Q2D PRN MS 03/18/17 13:30 04/17/17 13:29 Heparin Sodium (Porcine) (Heparin 10 Unit/ ml 5 ml Flush) 5 ml PRN PRN FLUSH 03/18/17 15:30 04/17/17 15:29 03/19/17 13:04 5 ML Amoxicillin (Amoxil Cap) 250 mg TID PO 03/19/17 21:00 03/24/17 20:59 03/22/17 08:50 250 MG Objective Vital Signs Date Time Temp Pulse Resp B/P (MAP) Pulse Ox O2 Delivery O2 Flow Rate FiO2 03/22/17 07:50 36.5 85 20 95/46 (62) 97 Room Air 03/22/17 04:00 Room Air 03/22/17 03:50 37.2 75 16 109/63 (78) 95 Room Air 03/22/17 00:00 Room Air 03/21/17 23:33 37.4 81 16 107/62 (77) 96 Room Air 03/21/17 20:00 Room Air 03/21/17 20:00 36.8 85 18 148/70 (96) 97 Room Air 03/21/17 16:00 Room Air 03/21/17 14:55 37.0 74 18 92/50 (64) 97 Room Air 03/21/17 13:30 37.0 85 20 104/64 (77) 97 Room Air 03/21/17 12:00 Room Air Physical Exam General Appearance: WD/WN, no apparent distress ENT: hearing grossly normal, pharynx normal Neck: supple, no JVD, trachea midline Respiratory/Chest: lungs clear, no respiratory distress, no accessory muscle use Cardiovascular: regular rate, rhythm, no edema, no murmur Abdomen: normal bowel sounds, non tender, soft Extremities: non-tender, no pedal edema, no calf tenderness, normal capillary refill Neurologic/Psychiatric: alert, oriented x 3 Skin: normal color, warm/dry, no rash Laboratory Results Results Past 24 Hours Test 03/21/17 15:23 03/22/17 07:16 Range/Units Sodium Level 137 138 136-145 mmol/L Potassium Level 4.7 4.7 3.5-5.1 mmol/L Chloride Level 107 109 98-107 mmol/L Carbon Dioxide Level 22 22 21-32 mmol/L Anion Gap 8.0 7.0 3-11 mmol/L Blood Urea Nitrogen 8 6 7-18 mg/dl Creatinine 1.13 1.06 0.60-1.40 mg/dl Est Creatinine Clear Calc Drug Dose 43.1 45.9 ml/min Estimated GFR () 69.3 74.9 Estimated GFR (Non- 59.8 64.6 BUN/Creatinine Ratio 6.6 5.5 10-20 Random Glucose 91 75 70-99 mg/dl Calcium Level 6.7 6.5 8.5-10.1 mg/dl Magnesium Level 2.0 1.8-2.4 mg/dl Total Bilirubin 0.5 0.2-1 mg/dl Aspartate Amino Transf (AST/SGOT) 16 15-37 U/L Alanine Aminotransferase (ALT/SGPT) 14 12-78 U/L Alkaline Phosphatase 1006 45-117 U/L Total Protein 6.2 6.4-8.2 gm/dl Albumin 2.6 3.4-5.0 gm/dl Globulin 3.6 2.5-4.0 gm/dl Albumin/Globulin Ratio 0.7 0.9-2 Assessment and Plan Mr. Greene is an 81 year old man here for hypocalcemia (likely 2/2 to Chemo for mets prost ca) and UTI Hypocalcemia secondary to Denosumab injection in the setting of metastatic prostate CA - patient received injection of Denosumab on 03/02 - calcium this am was 6.5, corrected calcium 7.6 (improved) - Vit D, Calcitriol, Tums - Continue supplementation with Ca. Glu- per Dr. Cifuentes - Once Calcium 8 - transition to oral replacement. - Vitamin D now 35. - Monitor mag/phos ---> hypomagnesemia resolved - monitor on tele ---> EKG w/ qtc 450 three days ago Superficial thrombophlebitis of left arm. Much improved. - Ultrasound confirmation of superficial thrombus involving the cephalic vein - IV removed and PICC line consented for other arm (Given large amounts of IV Ca ) - Warm compress Complicated UTI in the setting of chronic bey and prostate Ca - Question colonization vs true infection - Rocephin initially switched to Keflex due to concern for interaction with large doses of Calcium. bactrim and amoxicillin. Will need 10 day course - Final Culture results indicate two species - Stenotrophomonas and enterococcus. Prostate Ca with mets to bone - continue tamsulosin, finasteride Chronic constipation - colace bid, prn miralax and suppositories - Tap water enema Emiliana/thrush - nystatin swish and swallow, nystatin powder for groin Seborrheic dermatitis - desonide for face bid x14 days CKD - Creatinine 1.06 - avoid nephrotoxins where possible DNR -Heparin subq for DVT proph Dispo: PT/OT DNR Continued [facility] stay due to: multiple IV medications needed Discharge planning: uncertain Reviewed: Pt Seen/Exam by Me History no new concerns. Constitutional: denies: fever Respiratory: negative: short of breath Cardiovascular: denies chest pain General Appearance: no apparent distress Respiratory: lungs clear, no respiratory distress Cardiovascular: regular rate, rhythm Neurologic/Psychiatric: alert, oriented x 3 Assessment/Plan Resident Physician Supervision Note: I independently interviewed and examined the patient and verified the acevedo history and physical, reviewed labs and image studies, discussed the case with the resident Dr. Alberto, edited the above note and agree with the findings and care plan.
--- NOTE | 2017-03-22 10:28 | Nephrology Progress Note ---
Nephrology Progress Note Date of Service Mar 22, 2017. Chief Complaint Hypocalcemia, metastatic prostate cancer Subjective Mr. Greene was seen & examined in the PCU this morning. He denies muscle spasm, palpitations or dyspnea. He voices no new medical concerns. Review of Systems Constitutional: No fever Cardiovascular: No chest pain Respiratory: No dyspnea at rest Abdomen: No pain, No nausea, No vomiting Genitourinary - Male: No dysuria Extremities: No leg edema A complete review of systems was performed. Pertinent positives are noted above. All other systems are negative. Vital Signs Last 8 Hrs Date Time Temp Pulse Resp B/P (MAP) Pulse Ox O2 Delivery O2 Flow Rate FiO2 03/22/17 07:50 36.5 85 20 95/46 (62) 97 Room Air 03/22/17 04:00 Room Air 03/22/17 03:50 37.2 75 16 109/63 (78) 95 Room Air Last Recorded Weight Weight (Kilograms): 65.700 Physical Exam General Appearance: no apparent distress Head: normocephalic, atraumatic Eyes: PERRL, EOMI Neck: no adenopathy Respiratory/Chest: lungs clear, no respiratory distress Cardiovascular: regular rate, rhythm Abdomen/GI: normal bowel sounds, non tender, soft Extremities/Musculoskelatal: no calf tenderness, no pedal edema Neurologic/Psych: alert, oriented x 3 Social History Drug Use: none Marital Status: Housing Status: lives with family (lives with son) 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 03/21/17 15:23 03/22/17 07:16 Test 03/21/17 15:23 03/22/17 07:16 Anion Gap 8.0 mmol/L (3-11) 7.0 mmol/L (3-11) Est Creatinine Clear Calc Drug Dose 43.1 ml/min 45.9 ml/min Estimated GFR () 69.3 74.9 Estimated GFR (Non- 59.8 64.6 BUN/Creatinine Ratio 6.6 (10-20) 5.5 (10-20) Calcium Level 6.7 mg/dl (8.5-10.1) 6.5 mg/dl (8.5-10.1) Magnesium Level 2.0 mg/dl (1.8-2.4) Total Bilirubin 0.5 mg/dl (0.2-1) Aspartate Amino Transf (AST/SGOT) 16 U/L (15-37) Alanine Aminotransferase (ALT/SGPT) 14 U/L (12-78) Alkaline Phosphatase 1006 U/L (45-117) Total Protein 6.2 gm/dl (6.4-8.2) Albumin 2.6 gm/dl (3.4-5.0) Globulin 3.6 gm/dl (2.5-4.0) Albumin/Globulin Ratio 0.7 (0.9-2) Allergies Coded Allergies: No Known Allergies (Unverified , 03/15/17) Medications Current Inpatient Medications Medications (Trade) Dose Ordered Sig/Jonathan Route Start Time Stop Time Status Last Admin Dose Admin Acetaminophen (Tylenol Tab) 650 mg Q4H PRN PO 03/15/17 14:15 04/14/17 14:14 Tamsulosin HCl (Flomax Cap) 0.8 mg HS PO 03/15/17 21:00 04/14/17 20:59 03/21/17 20:44 0.8 MG Miscellaneous Information (Order Awaiting Action) 1 ea QS N/A 03/15/17 16:00 04/14/17 15:59 Pantoprazole Sodium (Protonix Tab) 40 mg QAM PO 03/16/17 09:00 04/15/17 08:59 03/22/17 08:50 40 MG Ranitidine HCl (zANTac TAB) 300 mg HS PO 03/15/17 21:00 04/14/17 20:59 03/21/17 20:44 300 MG Polyethylene (Miralax Powder Packet) 17 gm DAILY PRN PO 03/15/17 15:00 04/14/17 14:59 Docusate Sodium (coLACE CAP) 100 mg BID PO 03/15/17 21:00 04/14/17 20:59 03/22/17 09:51 100 MG Bisacodyl (Dulcolax Supp) 10 mg DAILY PRN CO 03/15/17 15:00 04/14/17 14:59 Heparin Sodium (Porcine) (Heparin Sq 5000 Unit/0.5ml) 5,000 unit Q12 SQ 03/15/17 21:00 04/14/17 20:59 03/22/17 08:52 5,000 UNIT Desonide (Desowen 0.05% Crm) 1 appln BID EXT 03/15/17 21:00 04/14/17 20:59 03/22/17 08:48 1 APPLN Nystatin (Mycostatin Susp) 5 ml QID PO 03/15/17 17:00 03/25/17 16:59 03/22/17 08:48 5 ML Nystatin (Mycostatin Powder) 1 appln BID EXT 03/15/17 21:00 04/14/17 20:59 03/22/17 08:48 1 APPLN Calcium Carbonate (Tums Chew Tab) 2,000 mg QID PO 03/16/17 17:00 04/15/17 08:59 03/22/17 08:50 2,000 MG Potassium/ Phosphorus/Sodium (Phospha 250 Neutral 155-852-130 Mg) 1 tab QID PO 03/16/17 17:00 04/15/17 16:59 03/22/17 08:49 1 TAB Cholecalciferol (Vitamin D Tab) 5,000 inter.unit QAM PO 03/18/17 09:00 04/17/17 08:59 03/22/17 08:49 5,000 INTER.UNIT Calcitriol (Rocaltrol Cap) 1 mcg QAM PO 03/18/17 09:00 04/17/17 08:59 03/22/17 08:49 1 MCG Calcium Carbonate (oS-Randy 500 TAB) 1,250 mg QID PO 03/18/17 09:00 04/17/17 08:59 03/22/17 08:48 1,250 MG Trimethoprim/ Sulfamethoxazole (Septra Ds 800/ 160MG Tab) 1 tab DAILY PO 03/19/17 09:00 03/29/17 08:59 03/22/17 08:50 1 TAB Miscellaneous (Tap Water Enema) 1 ea Q2D PRN CO 03/18/17 13:30 04/17/17 13:29 Heparin Sodium (Porcine) (Heparin 10 Unit/ ml 5 ml Flush) 5 ml PRN PRN FLUSH 03/18/17 15:30 04/17/17 15:29 03/19/17 13:04 5 ML Amoxicillin (Amoxil Cap) 250 mg TID PO 03/19/17 21:00 03/24/17 20:59 03/22/17 08:50 250 MG Calcium Gluconate 4000 mg/Dextrose 290 ml @ 125 drops/ hr Q24H IV 03/22/17 10:15 04/21/17 10:14 UNV Impression (1) Hypocalcemia (2) Prostate cancer (3) Hypertension Mr. 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 He developed hypocalcemia following treatment with Denosumab. EKG documented new QTc prolongation. QTc has improved to 380. 25OH D deficiency documented. He has received ergocalciferol 52789 IU and is taking daily cholecalciferol. Calcitriol is being provided. Aggressive replacement with PO and IV calcium continues. The patient has associated hypomagnesemia. This is being treated with IV magnesium sulfate. Recommendations HYPOCALCEMIA: -- Will provide 4 g IV Calcium Gluconate this am -- Repeat calcium ordered at 2 pm today -- Continue oral Ca and vitamin D supplements -- Vitamin D level is now acceptable at ~ 35 -- Once serum calcium ~ 8.0 or ionized > 1.0 will stop IV Ca and transition to oral calcium supplements HYPOMAGNESEMIA: -- Serum Mg has corrected. Will monitor.
[2017-03-22] MEDS ORDERED: DEXTROSE 5% IV SCH (11:30)
[2017-03-22] MEDS ORDERED: CALCIUM GLUCONATE IV SCH (11:30)
[2017-03-22 12:33] VITALS: BP 95/58; PULSE 81; TEMP 36.8; O2SAT 98
[2017-03-22 15:07] VITALS: BP 118/58; PULSE 72; TEMP 36.6; O2SAT 96
[2017-03-22] MEDS ORDERED: DEXTROSE 5% IV ONE (18:45)
[2017-03-22] MEDS ORDERED: CALCIUM GLUCONATE IV ONE (18:45)
[2017-03-22 19:14] VITALS: BP 111/51; PULSE 82; TEMP 36.6; O2SAT 98
[2017-03-22] MEDS: TAMSULOSIN HCL 0.4 MG CAP PO SCH (20:16)
[2017-03-22] MEDS: RANITIDINE HCL 150 MG TAB PO SCH (20:17)
[2017-03-22 23:35] VITALS: BP 96/50; PULSE 78; TEMP 36.8; O2SAT 95
[2017-03-23 03:33] VITALS: BP 110/64; PULSE 78; TEMP 36.6; O2SAT 98
[2017-03-23 04:56] LABS: CALCIUM 6.4 mg/dl (8.5-10.1); CREATININE 1.18 mg/dl (0.60-1.40); POTASSIUM 4.9 mmol/L (3.5-5.1)
[2017-03-23 08:17] VITALS: BP 98/51; PULSE 75; TEMP 36.7; O2SAT 95
[2017-03-23] MEDS: NYSTATIN POWDER 15GM BTL EXT SCH ×2 (09:30→20:03)
[2017-03-23] MEDS: DESONIDE CR 15 GM TUBE EXT SCH ×2 (09:30→20:02)
[2017-03-23] MEDS: SULFAMETHOXAZOLE/TRIMETHOPRIM DS 800/160MG TAB PO SCH (09:31)
[2017-03-23] MEDS: AMOXICILLIN 250 MG CAP PO SCH ×3 (09:31→20:04)
[2017-03-23] MEDS: CALCITRIOL 0.25 MCG CAP PO SCH (09:32)
[2017-03-23] MEDS: CHOLECALCIFEROL 1000 INTER.UNIT TAB PO SCH (09:33)
[2017-03-23] MEDS: DOCUSATE SODIUM 100 MG CAP PO SCH ×2 (09:34→20:05)
[2017-03-23] MEDS: NYSTATIN SUSP 500,000 U/5 ML UDC PO SCH ×4 (09:34→20:03)
[2017-03-23] MEDS: POT PHOSPHATE MONOBASIC W/ SOD TAB PO SCH ×4 (09:35→20:04)
[2017-03-23] MEDS: CALCIUM CARBONATE 1250MG TAB PO SCH ×4 (09:36→20:04)
[2017-03-23] MEDS: CALCIUM CARBONATE 500 MG CHEWABLE PO SCH ×4 (09:36→20:04)
[2017-03-23] MEDS: PANTOprazole SOD 40 MG TAB PO SCH (09:37)
[2017-03-23] MEDS: HEPARIN SOD 5000 UNIT/0.5 ML CARP SQ SCH ×2 (09:42→20:09)
[2017-03-23] MEDS ORDERED: DEXTROSE 5% IV SCH (09:45)
[2017-03-23] MEDS ORDERED: CALCIUM GLUCONATE IV SCH (09:45)
--- NOTE | 2017-03-23 10:39 | Nephrology Progress Note ---
Nephrology Progress Note Date of Service Mar 23, 2017. Chief Complaint Hypocalcemia, metastatic prostate cancer Subjective Mr. Greene was seen & examined in the PCU this morning. He reports that he is subjectively improved and able to participate in physical therapy yesterday. Mr. Greene currently denies muscle cramping or angina. Review of Systems Constitutional: No fever Cardiovascular: No chest pain Respiratory: No dyspnea at rest Abdomen: No pain, No nausea, No vomiting Extremities: No leg edema A complete review of systems was performed. Pertinent positives are noted above. All other systems are negative. Vital Signs Last 8 Hrs Date Time Temp Pulse Resp B/P (MAP) Pulse Ox O2 Delivery O2 Flow Rate FiO2 03/23/17 08:17 36.7 75 18 98/51 (67) 95 Room Air 03/23/17 04:00 Room Air 03/23/17 03:33 36.6 78 16 110/64 (79) 98 Room Air Last Recorded Weight Weight (Kilograms): 65.500 Physical Exam General Appearance: no apparent distress Head: normocephalic, atraumatic Eyes: PERRL, EOMI Neck: no adenopathy Respiratory/Chest: lungs clear, normal breath sounds Cardiovascular: regular rate, rhythm Abdomen/GI: normal bowel sounds, non tender, soft Extremities/Musculoskelatal: no calf tenderness, no pedal edema Neurologic/Psych: alert, oriented x 3 Social History Drug Use: none Marital Status: Housing Status: lives with family (lives with son) 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 03/23/17 04:29 Test 03/22/17 16:05 03/23/17 04:29 Calcium Level 7.4 mg/dl (8.5-10.1) 6.4 mg/dl (8.5-10.1) Anion Gap 4.0 mmol/L (3-11) Est Creatinine Clear Calc Drug Dose 41.3 ml/min Estimated GFR () 65.7 Estimated GFR (Non- 56.7 BUN/Creatinine Ratio 7.8 (10-20) Ionized Calcium 0.86 mmol/l (1.12-1.32) Allergies Coded Allergies: No Known Allergies (Unverified , 03/15/17) Medications Current Inpatient Medications Medications (Trade) Dose Ordered Sig/Jonathan Route Start Time Stop Time Status Last Admin Dose Admin Acetaminophen (Tylenol Tab) 650 mg Q4H PRN PO 03/15/17 14:15 04/14/17 14:14 Tamsulosin HCl (Flomax Cap) 0.8 mg HS PO 03/15/17 21:00 04/14/17 20:59 03/22/17 20:16 0.8 MG Miscellaneous Information (Order Awaiting Action) 1 ea QS N/A 03/15/17 16:00 04/14/17 15:59 Pantoprazole Sodium (Protonix Tab) 40 mg QAM PO 03/16/17 09:00 04/15/17 08:59 03/23/17 09:37 40 MG Ranitidine HCl (zANTac TAB) 300 mg HS PO 03/15/17 21:00 04/14/17 20:59 03/22/17 20:17 300 MG Polyethylene (Miralax Powder Packet) 17 gm DAILY PRN PO 03/15/17 15:00 04/14/17 14:59 Docusate Sodium (coLACE CAP) 100 mg BID PO 03/15/17 21:00 04/14/17 20:59 03/23/17 09:34 100 MG Bisacodyl (Dulcolax Supp) 10 mg DAILY PRN VT 03/15/17 15:00 04/14/17 14:59 Heparin Sodium (Porcine) (Heparin Sq 5000 Unit/0.5ml) 5,000 unit Q12 SQ 03/15/17 21:00 04/14/17 20:59 03/23/17 09:42 5,000 UNIT Desonide (Desowen 0.05% Crm) 1 appln BID EXT 03/15/17 21:00 04/14/17 20:59 03/23/17 09:30 1 APPLN Nystatin (Mycostatin Susp) 5 ml QID PO 03/15/17 17:00 03/25/17 16:59 03/23/17 09:34 5 ML Nystatin (Mycostatin Powder) 1 appln BID EXT 03/15/17 21:00 04/14/17 20:59 03/23/17 09:30 1 APPLN Calcium Carbonate (Tums Chew Tab) 2,000 mg QID PO 03/16/17 17:00 04/15/17 08:59 03/23/17 09:36 2,000 MG Potassium/ Phosphorus/Sodium (Phospha 250 Neutral 155-852-130 Mg) 1 tab QID PO 03/16/17 17:00 04/15/17 16:59 03/23/17 09:35 1 TAB Cholecalciferol (Vitamin D Tab) 5,000 inter.unit QAM PO 03/18/17 09:00 04/17/17 08:59 03/23/17 09:33 5,000 INTER.UNIT Calcitriol (Rocaltrol Cap) 1 mcg QAM PO 03/18/17 09:00 04/17/17 08:59 03/23/17 09:32 1 MCG Calcium Carbonate (oS-Randy 500 TAB) 1,250 mg QID PO 03/18/17 09:00 04/17/17 08:59 03/23/17 09:36 1,250 MG Trimethoprim/ Sulfamethoxazole (Septra Ds 800/ 160MG Tab) 1 tab DAILY PO 03/19/17 09:00 03/29/17 08:59 03/23/17 09:31 1 TAB Miscellaneous (Tap Water Enema) 1 ea Q2D PRN [place] 03/18/17 13:30 04/17/17 13:29 Heparin Sodium (Porcine) (Heparin 10 Unit/ ml 5 ml Flush) 5 ml PRN PRN FLUSH 03/18/17 15:30 04/17/17 15:29 03/19/17 13:04 5 ML Amoxicillin (Amoxil Cap) 250 mg TID PO 03/19/17 21:00 03/24/17 20:59 03/23/17 09:31 250 MG Calcium Gluconate 4000 mg/Dextrose 290 ml @ 150 mls/hr Q1H56M IV 03/23/17 09:45 03/23/17 11:40 03/23/17 10:22 150 MLS/HR Impression (1) Hypocalcemia (2) Prostate cancer (3) Hypertension Mr. 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 He developed hypocalcemia following treatment with Denosumab. EKG documented new QTc prolongation. QTc has improved to 380. 25OH D deficiency documented. He has received ergocalciferol 45541 IU and is taking daily cholecalciferol. Calcitriol is being provided. Aggressive replacement with PO and IV calcium continues. The patient has associated hypomagnesemia. This is being treated with IV magnesium sulfate. Recommendations HYPOCALCEMIA: -- Will provide 4 g IV Calcium Gluconate this am -- Repeat calcium ordered at 2 pm today -- Continue oral Ca and vitamin D supplements -- Vitamin D level is now acceptable at ~ 35 -- Once serum calcium ~ 8.0 or ionized > 1.0 will stop IV Ca and transition to oral calcium supplements HYPOMAGNESEMIA: -- Serum Mg has corrected. Will monitor.
[2017-03-23 12:03] VITALS: BP 98/59; PULSE 69; TEMP 36.6; O2SAT 96
--- NOTE | 2017-03-23 15:27 | Family Medicine Progress Note ---
Progress Note Date of Service Mar 23, 2017. Subjective Pt evaluation today including: conversation w/ patient, physical exam, chart review, lab review, review of studies Pain: 0/10 PO Intake: WNL Voiding: no voiding problems Patient has no complaints this morning, denies chest pain or palpitations He did have a short episode of atrial tachy overnight however was asymptomatic questions and concerns were addressed Constitutional: No fever Eyes: No worsening of vision ENT: No hearing loss Respiratory: No cough, No sputum, No wheezing, No shortness of breath, No dyspnea on exertion Cardiovascular: No chest pain, No palpitations Abdomen: No pain, No nausea, No vomiting, No diarrhea, No constipation, No GI bleeding Musculoskeletal: No joint pain, No muscle pain Male : No dysuria Neurologic: No memory loss, No weakness, No balance problems Psychiatric: No depression symptoms Heme: No abnormal bleeding/bruising Endo: No fatigue Skin: No rash Medications Medications Administered Medications (Trade) Dose Ordered Sig/Jonathan Route Start Time Stop Time Status Last Admin Dose Admin Sodium Chloride 1,000 ml @ 125 mls/hr Q8H STAT IV 03/15/17 10:09 03/15/17 16:58 DC 03/15/17 13:23 125 MLS/HR Sodium Chloride 1,000 ml @ 999 mls/hr Q1H1M STAT IV 03/15/17 10:22 03/15/17 11:22 DC 03/15/17 10:22 999 MLS/HR Calcium Gluconate (Calcium Gluconate 10%) 1,000 mg NOW STAT IV 03/15/17 12:26 03/15/17 12:28 DC 03/15/17 12:48 1,000 MG Magnesium Sulfate (Magnesium Sulfate) 2 gm NOW STAT IV 03/15/17 12:26 03/15/17 12:28 DC 03/15/17 13:35 2 GM Ceftriaxone Sodium (Rocephin Inj) 1 gm NOW STAT IV 03/15/17 12:26 03/15/17 12:28 DC 03/15/17 13:22 1 GM Calcium Gluconate 1000 mg/Sodium Chloride 60 ml @ 240 mls/hr NOW STAT IV 03/15/17 16:06 03/15/17 16:20 DC 03/15/17 17:33 240 MLS/HR Tamsulosin HCl (Flomax Cap) 0.8 mg HS PO 03/15/17 21:00 3/3/18 20:59 03/22/17 20:16 0.8 MG Pantoprazole Sodium (Protonix Tab) 40 mg QAM PO 03/16/17 09:00 04/15/17 08:59 03/23/17 09:37 40 MG Ranitidine HCl (zANTac TAB) 300 mg HS PO 03/15/17 21:00 04/14/17 20:59 03/22/17 20:17 300 MG Ceftriaxone Sodium 1 gm/ Dextrose 50 ml @ 100 mls/hr Q24H IV 03/16/17 14:00 03/17/17 12:03 DC 03/16/17 13:03 100 MLS/HR Docusate Sodium (coLACE CAP) 100 mg BID PO 03/15/17 21:00 04/14/17 20:59 03/23/17 09:34 100 MG Heparin Sodium (Porcine) (Heparin Sq 5000 Unit/0.5ml) 5,000 unit Q12 SQ 03/15/17 21:00 04/14/17 20:59 03/23/17 09:42 5,000 UNIT Desonide (Desowen 0.05% Crm) 1 appln BID EXT 03/15/17 21:00 04/14/17 20:59 03/23/17 09:30 1 APPLN Nystatin (Mycostatin Susp) 5 ml QID PO 03/15/17 17:00 03/25/17 16:59 03/23/17 14:00 5 ML Nystatin (Mycostatin Powder) 1 appln BID EXT 03/15/17 21:00 04/14/17 20:59 03/23/17 09:30 1 APPLN Ergocalciferol (Vitamin D Cap) 50,000 interunit NOW ONCE PO 03/15/17 17:00 03/15/17 17:01 DC 03/15/17 17:32 50,000 INTERUNIT Calcitriol (Rocaltrol Cap) 0.25 mcg 1700 ONCE PO 03/15/17 17:00 03/15/17 17:01 DC 03/15/17 17:31 0.25 MCG Calcium Carbonate (Tums Chew Tab) 1,000 mg NOW ONCE PO 03/15/17 17:00 03/15/17 17:01 DC 2/1/18 17:32 1,000 MG Calcium Carbonate (Tums Chew Tab) 1,000 mg QAM PO 03/16/17 09:00 03/16/17 09:00 DC 03/16/17 07:59 1,000 MG Sodium Phosphate 15 mmol/Sodium Chloride 255 ml @ 102 mls/hr 1800 ONCE IV 03/15/17 18:00 03/15/17 20:29 DC 03/15/17 18:50 102 MLS/HR Calcium Gluconate 2000 mg/Sodium Chloride 70 ml @ 240 mls/hr 2030 ONCE IV 03/15/17 20:30 03/15/17 20:47 DC 03/16/17 00:15 240 MLS/HR Calcium Gluconate 3000 mg/Sodium Chloride 80 ml @ 160 mls/hr NOW ONCE IV 03/16/17 02:00 03/16/17 02:29 DC 03/16/17 02:05 160 MLS/HR Magnesium Sulfate 1 gm/Prmx 100 ml @ 100 mls/hr TODAY@0800,0900 IV 03/16/17 08:00 03/16/17 09:59 DC 03/16/17 10:22 100 MLS/HR Calcium Carbonate (Tums Chew Tab) 1,000 mg QID PO 03/16/17 09:00 03/16/17 15:24 DC 03/16/17 13:03 1,000 MG Calcium Gluconate 2000 mg/Sodium Chloride 70 ml @ 240 mls/hr 1000 ONCE IV 03/16/17 10:00 03/16/17 10:17 DC 03/16/17 11:57 240 MLS/HR Calcium Carbonate (Tums Chew Tab) 2,000 mg QID PO 03/16/17 17:00 04/15/17 08:59 03/23/17 14:01 2,000 MG Potassium/ Phosphorus/Sodium (Phospha 250 Neutral 155-852-130 Mg) 1 tab QID PO 03/16/17 17:00 04/15/17 16:59 03/23/17 14:01 1 TAB Sodium Phosphate 21 mmol/Sodium Chloride 507 ml @ 144 mls/hr ONE ONCE IV 03/16/17 15:30 03/16/17 19:01 DC 03/16/17 15:47 144 MLS/HR Calcium Gluconate 2000 mg/Sodium Chloride 70 ml @ 240 mls/hr NOW STAT IV 03/16/17 15:28 03/16/17 15:45 DC 03/16/17 15:47 240 MLS/HR Calcium Gluconate 1000 mg/Sodium Chloride 60 ml @ 240 mls/hr NOW STAT IV 03/16/17 17:12 03/16/17 17:26 DC 03/16/17 17:41 240 MLS/HR Calcium Gluconate 1000 mg/Sodium Chloride 60 ml @ 120 mls/hr NOW ONCE IV 03/16/17 19:45 03/16/17 20:14 DC 03/16/17 19:54 120 MLS/HR Calcium Gluconate 1000 mg/Sodium Chloride 60 ml @ 240 mls/hr NOW STAT IV 03/17/17 04:32 03/17/17 04:46 DC 03/17/17 04:51 240 MLS/HR Calcium Gluconate 3000 mg/Sodium Chloride 80 ml @ 160 mls/hr 0900 ONCE IV 03/17/17 09:00 03/17/17 09:29 DC 03/17/17 09:00 160 MLS/HR Magnesium Sulfate 1 gm/Prmx 100 ml @ 100 mls/hr 0930,1030 IV 03/17/17 09:30 03/17/17 11:29 DC 03/17/17 10:25 100 MLS/HR Cholecalciferol (Vitamin D Tab) 1,000 inter.unit QAM PO 03/18/17 09:00 03/18/17 09:00 DC 03/18/17 07:43 1,000 INTER.UNIT Cholecalciferol (Vitamin D Tab) 1,000 inter.unit 0942 ONCE PO 03/17/17 09:42 03/17/17 09:44 DC 03/17/17 10:22 1,000 INTER.UNIT Calcitriol (Rocaltrol Cap) 1 mcg NOW ONCE PO 03/17/17 09:45 03/17/17 09:55 DC 03/17/17 10:22 1 MCG Calcium Gluconate 3000 mg/Sodium Chloride 80 ml @ 160 mls/hr 1130 ONCE IV 03/17/17 11:30 03/17/17 11:59 DC 03/17/17 11:25 160 MLS/HR Cephalexin Monohydrate (Keflex Cap) 500 mg BID PO 03/17/17 13:00 03/17/17 19:12 DC 03/17/17 14:57 500 MG Calcium Gluconate 3000 mg/Sodium Chloride 80 ml @ 160 mls/hr 1500 ONCE IV 03/17/17 15:00 03/17/17 15:29 DC 03/17/17 14:59 160 MLS/HR Calcium Gluconate 3000 mg/Sodium Chloride 80 ml @ 240 mls/hr Q6H IV 03/17/17 22:00 03/18/17 08:45 DC 03/18/17 04:16 240 MLS/HR Calcium Gluconate 1000 mg/Sodium Chloride 60 ml @ 240 mls/hr NOW STAT IV 03/17/17 19:39 03/17/17 19:53 DC 03/17/17 20:32 240 MLS/HR Magnesium Sulfate 1 gm/Prmx 100 ml @ 100 mls/hr Q1H IV 03/18/17 09:30 03/18/17 11:29 DC 03/18/17 15:15 100 MLS/HR Cholecalciferol (Vitamin D Tab) 5,000 inter.unit QAM PO 03/18/17 09:00 04/17/17 08:59 03/23/17 09:33 5,000 INTER.UNIT Calcitriol (Rocaltrol Cap) 1 mcg QAM PO 03/18/17 09:00 04/17/17 08:59 03/23/17 09:32 1 MCG Calcium Gluconate 4000 mg/Sodium Chloride 90 ml @ 120 mls/hr 0900 ONCE IV 03/18/17 09:00 03/18/17 09:44 DC 03/18/17 08:54 120 MLS/HR Calcium Gluconate 4000 mg/Sodium Chloride 90 ml @ 120 mls/hr 1000 IV 03/18/17 10:00 03/18/17 11:00 DC 03/18/17 09:52 120 MLS/HR Calcium Carbonate (oS-Arndy 500 TAB) 1,250 mg QID PO 03/18/17 09:00 04/17/17 08:59 03/23/17 14:02 1,250 MG Trimethoprim/ Sulfamethoxazole (Septra Ds 800/ 160MG Tab) 1 tab DAILY PO 03/19/17 09:00 03/29/17 08:59 03/23/17 09:31 1 TAB Trimethoprim/ Sulfamethoxazole (Septra Ds 800/ 160MG Tab) 1 tab 1300 ONCE PO 03/18/17 13:00 03/18/17 13:01 DC 03/18/17 13:01 1 TAB Calcium Gluconate 3000 mg/Sodium Chloride 80 ml @ 160 mls/hr 1500 IV 03/18/17 15:00 03/18/17 15:29 DC 03/18/17 15:00 160 MLS/HR Heparin Sodium (Porcine) (Heparin 10 Unit/ ml 5 ml Flush) 5 ml PRN PRN FLUSH 03/18/17 15:30 04/17/17 15:29 03/19/17 13:04 5 ML Calcium Gluconate 4000 mg/Sodium Chloride 90 ml @ 120 mls/hr NOW STAT IV 03/18/17 21:35 03/18/17 22:19 DC 03/18/17 22:21 120 MLS/HR Calcium Gluconate 4000 mg/Sodium Chloride 90 ml @ 120 mls/hr ONE ONCE IV 03/19/17 00:00 03/19/17 00:44 DC 03/19/17 00:01 120 MLS/HR Calcium Gluconate 2000 mg/Sodium Chloride 70 ml @ 240 mls/hr 0800 ONCE IV 03/19/17 08:00 03/19/17 08:17 DC 03/19/17 08:48 240 MLS/HR Sodium Phosphate 15 mmol/Sodium Chloride 255 ml @ 88 mls/hr 0900 ONCE IV 03/19/17 09:00 03/19/17 11:53 DC 03/19/17 08:48 88 MLS/HR Amoxicillin (Amoxil Cap) 250 mg TID PO 03/19/17 21:00 03/24/17 20:59 03/23/17 14:03 250 MG Amoxicillin (Amoxil Cap) 250 mg TODAY@1515 ONCE PO 03/19/17 15:15 03/19/17 15:23 DC 03/19/17 15:33 250 MG Calcium Gluconate 2000 mg/Sodium Chloride 70 ml @ 240 mls/hr NOW STAT IV 03/19/17 17:53 03/19/17 18:10 DC 03/19/17 18:12 240 MLS/HR Calcium Gluconate 2000 mg/Sodium Chloride 70 ml @ 140 mls/hr NOW ONCE IV 03/19/17 19:00 03/19/17 19:29 DC 03/19/17 19:23 140 MLS/HR Calcium Gluconate 4000 mg/Sodium Chloride 140 ml @ 140 mls/hr 0900 IV 03/20/17 09:00 03/20/17 12:00 DC 03/20/17 09:01 140 MLS/HR Magnesium Sulfate 1 gm/Prmx 100 ml @ 100 mls/hr Q1H IV 03/20/17 10:00 03/20/17 11:59 DC 03/20/17 11:13 100 MLS/HR Calcium Gluconate 4000 mg/Sodium Chloride 140 ml @ 140 mls/hr TODAY@1645 ONCE IV 03/20/17 16:45 03/20/17 17:44 DC 03/20/17 16:53 140 MLS/HR Calcium Gluconate 3000 mg/Dextrose 280 ml @ 125 mls/hr Q2H15M IV 03/21/17 10:30 03/21/17 12:44 DC 03/21/17 10:58 125 MLS/HR Calcium Gluconate 3000 mg/Sodium Chloride 80 ml @ 160 mls/hr 1630 ONCE IV 03/21/17 16:30 03/21/17 16:59 DC 03/21/17 16:36 160 MLS/HR Calcium Gluconate 4000 mg/Dextrose 290 ml @ 125 mls/hr Q24H IV 03/22/17 11:30 03/23/17 09:32 DC 03/22/17 12:32 125 MLS/HR Calcium Gluconate 4000 mg/Dextrose 290 ml @ 125 mls/hr Q2H20M ONCE IV 03/22/17 18:45 03/22/17 21:04 DC 03/22/17 19:16 125 MLS/HR Calcium Gluconate 4000 mg/Dextrose 290 ml @ 150 mls/hr Q1H56M IV 03/23/17 09:45 03/23/17 11:40 DC 03/23/17 10:22 150 MLS/HR Objective Vital Signs Date Time Temp Pulse Resp B/P (MAP) Pulse Ox O2 Delivery O2 Flow Rate FiO2 03/23/17 12:03 36.6 69 18 98/59 (72) 96 Room Air 03/23/17 08:17 36.7 75 18 98/51 (67) 95 Room Air 03/23/17 08:00 Room Air 03/23/17 04:00 Room Air 03/23/17 03:33 36.6 78 16 110/64 (79) 98 Room Air 03/23/17 00:00 Room Air 03/22/17 23:35 36.8 78 16 96/50 (65) 95 Room Air 03/22/17 20:00 Room Air 03/22/17 19:14 36.6 82 17 111/51 (71) 98 Room Air 03/22/17 16:00 Room Air Physical Exam General Appearance: no apparent distress Eyes: normal inspection ENT: normal ENT inspection Neck: supple Respiratory/Chest: normal breath sounds, no respiratory distress, no accessory muscle use Cardiovascular: regular rate, rhythm, no JVD, no murmur Abdomen: normal bowel sounds, non tender, soft Extremities: non-tender, normal inspection, no pedal edema, no calf tenderness Neurologic/Psychiatric: alert, normal mood/affect, oriented x 3, + pertinent finding (neg chvostek sign, no tremor appreciated) Skin: normal color, warm/dry, no rash Lymphatic: no adenopathy Laboratory Results Results Past 24 Hours Test 03/22/17 16:05 03/23/17 04:29 03/23/17 13:47 Range/Units Calcium Level 7.4 6.4 6.3 8.5-10.1 mg/dl Sodium Level 136 136-145 mmol/L Potassium Level 4.9 3.5-5.1 mmol/L Chloride Level 108 98-107 mmol/L Carbon Dioxide Level 24 21-32 mmol/L Anion Gap 4.0 3-11 mmol/L Blood Urea Nitrogen 9 7-18 mg/dl Creatinine 1.18 0.60-1.40 mg/dl Est Creatinine Clear Calc Drug Dose 41.3 ml/min Estimated GFR () 65.7 Estimated GFR (Non- 56.7 BUN/Creatinine Ratio 7.8 10-20 Random Glucose 87 70-99 mg/dl Ionized Calcium 0.86 1.12-1.32 mmol/l Assessment and Plan Mr. Greene is an 81 year old man with a history of prostate cancer and osteoblastic mets that presented with fatigue and found to have severe hypocalcemia thought secondary to his Denosumab (03/02/2017 received dose). Hypocalcemia/hypophosphatemia secondary to Denosumab injection in the setting of metastatic prostate CA - continue to follow bid calcium per nephrology - plan is to be able to maintain serum Ca > 8.0 or ionized >1 on PO not IV - Once able to maintain a calcium >7.0/7.5 consistently may consider transitioning patient to medsur instead of tele however patient continues at this time to have abnormal findings/ changes noted on tele - Calcitriol, Tums as PO source of calcium and Neutraphos PO for phos - Vit D oral supp, repeat reflected an improved Vit D level - appreciate rec from nephro UTI; stenotrophomona and enterococcus; chronic bey - Bactrim/ Amoxil day 06/21 - Originally was on Rocephin on admission Superficial thrombophlebitis of right arm; improved since admission - Ultrasound confirmation of superficial thrombus involving the cephalic vein - Avoid IV line in right UE - Warm compress Prostate Ca with mets to bone - continue tamsulosin, finasteride Intertrigo/thrush - nystatin swish and swallow, nystatin powder for groin Seborrheic dermatitis - desonide for face bid 9/ days CKD III stable - avoid nephrotoxins where possible - follow prn DVT Prophylaxis -Heparin subq bid Dispo: PT/OT rec once the patient stable on PO DNR Continued [facility] stay due to: multiple IV medications needed Discharge planning: uncertain Reviewed: Pt Seen/Exam by Me History denies any concerns Constitutional: denies: fever Respiratory: negative: short of breath Cardiovascular: denies chest pain General Appearance: no apparent distress Respiratory: lungs clear, no respiratory distress Cardiovascular: regular rate, rhythm Neurologic/Psychiatric: alert, oriented x 3 Skin Characteristics: warm/dry Assessment/Plan Resident Physician Supervision Note: I independently interviewed and examined the patient and verified the acevedo history and physical, reviewed labs and image studies, discussed the case with the resident Dr. Wilkins and agree with the findings and care plan.
[2017-03-23 16:01] VITALS: BP 114/65; PULSE 80; TEMP 36.7; O2SAT 97
[2017-03-23] MEDS ORDERED: DEXTROSE 5% IV ONE (16:45)
[2017-03-23] MEDS ORDERED: CALCIUM GLUCONATE IV ONE (16:45)
[2017-03-23 20:00] VITALS: BP 119/64; PULSE 83; TEMP 36.7; O2SAT 96
[2017-03-23] MEDS: RANITIDINE HCL 150 MG TAB PO SCH (20:04)
[2017-03-23] MEDS: TAMSULOSIN HCL 0.4 MG CAP PO SCH (20:05)
[2017-03-23 23:59] VITALS: BP 103/52; PULSE 79; TEMP 36.7; O2SAT 95
[2017-03-24] VITALS (7 sets, daily range): BP systolic 95–139; BP diastolic 51–78; PULSE 76–89; TEMP 36.6–37.1; O2SAT 94–98
[2017-03-24 07:07] LABS: ALBUMIN 2.8 gm/dl (3.4-5.0); CALCIUM 6.6 mg/dl (8.5-10.1); CREATININE 1.18 mg/dl (0.60-1.40); POTASSIUM 4.8 mmol/L (3.5-5.1)
[2017-03-24 07:27] LABS: PHOSPHORUS 1.9 mg/dl (2.5-4.9); TOTAL PROTEIN 6.3 gm/dl (6.4-8.2)
[2017-03-24] MEDS: CALCIUM CARBONATE 1250MG TAB PO SCH ×4 (09:07→20:38)
[2017-03-24] MEDS: DOCUSATE SODIUM 100 MG CAP PO SCH ×2 (09:07→20:40)
[2017-03-24] MEDS: DESONIDE CR 15 GM TUBE EXT SCH ×2 (09:07→20:37)
[2017-03-24] MEDS: CHOLECALCIFEROL 1000 INTER.UNIT TAB PO SCH (09:07)
[2017-03-24] MEDS: NYSTATIN POWDER 15GM BTL EXT SCH ×2 (09:07→20:43)
[2017-03-24] MEDS: CALCITRIOL 0.25 MCG CAP PO SCH (09:08)
[2017-03-24] MEDS: SULFAMETHOXAZOLE/TRIMETHOPRIM DS 800/160MG TAB PO SCH (09:09)
[2017-03-24] MEDS: POT PHOSPHATE MONOBASIC W/ SOD TAB PO SCH ×4 (09:10→20:39)
[2017-03-24] MEDS: NYSTATIN SUSP 500,000 U/5 ML UDC PO SCH ×4 (09:11→20:38)
[2017-03-24] MEDS: PANTOprazole SOD 40 MG TAB PO SCH (09:11)
[2017-03-24] MEDS: AMOXICILLIN 250 MG CAP PO SCH ×3 (09:11→21:17)
[2017-03-24] MEDS: CALCIUM CARBONATE 500 MG CHEWABLE PO SCH ×4 (09:14→20:42)
[2017-03-24] MEDS: HEPARIN SOD 5000 UNIT/0.5 ML CARP SQ SCH ×2 (09:24→20:47)
[2017-03-24] MEDS: CALCIUM GLUCONATE IV SCH ×3 (10:22→20:44)
[2017-03-24] MEDS: SODIUM CHLORIDE 0.9% IV SCH ×3 (10:22→20:44)
--- NOTE | 2017-03-24 11:03 | Nephrology Progress Note ---
Nephrology Progress Note Date of Service Mar 24, 2017. Chief Complaint Hypocalcemia, metastatic prostate cancer Subjective Mr. Greene was seen & examined in the PCU this morning. He denies muscle weakness or cramping. He is tolerating oral vitamin D and CaCO3. Mr. Greene voices no new medical concerns at this time. Review of Systems Constitutional: No fever Cardiovascular: No chest pain Respiratory: No dyspnea at rest Abdomen: No pain, No nausea, No vomiting Extremities: No leg edema A complete review of systems was performed. Pertinent positives are noted above. All other systems are negative. Vital Signs Last 8 Hrs Date Time Temp Pulse Resp B/P (MAP) Pulse Ox O2 Delivery O2 Flow Rate FiO2 03/24/17 07:54 36.7 81 18 104/60 (75) 96 Room Air 03/24/17 04:11 37.1 83 17 95/54 (68) 96 Room Air 03/24/17 04:00 Room Air Last Recorded Weight Weight (Kilograms): 61.200 Physical Exam General Appearance: no apparent distress Head: normocephalic, atraumatic Eyes: PERRL, EOMI Neck: no adenopathy Respiratory/Chest: lungs clear, no respiratory distress Cardiovascular: regular rate, rhythm Abdomen/GI: normal bowel sounds, non tender, soft Extremities/Musculoskelatal: no calf tenderness, no pedal edema Neurologic/Psych: alert, oriented x 3 Social History Drug Use: none Marital Status: Housing Status: lives with family (lives with son) 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 03/24/17 05:51 Test 03/23/17 13:47 03/24/17 05:51 Calcium Level 6.3 mg/dl (8.5-10.1) 6.6 mg/dl (8.5-10.1) Anion Gap 6.0 mmol/L (3-11) Est Creatinine Clear Calc Drug Dose 41.1 ml/min Estimated GFR () 65.7 Estimated GFR (Non- 56.7 BUN/Creatinine Ratio 6.8 (10-20) Phosphorus Level 1.9 mg/dl (2.5-4.9) Magnesium Level 1.9 mg/dl (1.8-2.4) Total Bilirubin 0.4 mg/dl (0.2-1) Aspartate Amino Transf (AST/SGOT) 16 U/L (15-37) Alanine Aminotransferase (ALT/SGPT) 14 U/L (12-78) Alkaline Phosphatase 1102 U/L (45-117) Total Protein 6.3 gm/dl (6.4-8.2) Albumin 2.8 gm/dl (3.4-5.0) Globulin 3.5 gm/dl (2.5-4.0) Albumin/Globulin Ratio 0.8 (0.9-2) Allergies Coded Allergies: No Known Allergies (Unverified , 03/15/17) Medications Current Inpatient Medications Medications (Trade) Dose Ordered Sig/Jonathan Route Start Time Stop Time Status Last Admin Dose Admin Acetaminophen (Tylenol Tab) 650 mg Q4H PRN PO 03/15/17 14:15 04/14/17 14:14 Tamsulosin HCl (Flomax Cap) 0.8 mg HS PO 03/15/17 21:00 04/14/17 20:59 03/23/17 20:05 0.8 MG Miscellaneous Information (Order Awaiting Action) 1 ea QS N/A 03/15/17 16:00 04/14/17 15:59 Pantoprazole Sodium (Protonix Tab) 40 mg QAM PO 03/16/17 09:00 04/15/17 08:59 03/24/17 09:11 40 MG Ranitidine HCl (zANTac TAB) 300 mg HS PO 03/15/17 21:00 04/14/17 20:59 03/23/17 20:04 300 MG Polyethylene (Miralax Powder Packet) 17 gm DAILY PRN PO 03/15/17 15:00 04/14/17 14:59 Docusate Sodium (coLACE CAP) 100 mg BID PO 03/15/17 21:00 04/14/17 20:59 03/24/17 09:07 100 MG Bisacodyl (Dulcolax Supp) 10 mg DAILY PRN [place] 03/15/17 15:00 04/14/17 14:59 Heparin Sodium (Porcine) (Heparin Sq 5000 Unit/0.5ml) 5,000 unit Q12 SQ 03/15/17 21:00 04/14/17 20:59 03/24/17 09:24 5,000 UNIT Desonide (Desowen 0.05% Crm) 1 appln BID EXT 03/15/17 21:00 04/14/17 20:59 03/24/17 09:07 1 APPLN Nystatin (Mycostatin Susp) 5 ml QID PO 03/15/17 17:00 03/25/17 16:59 03/24/17 09:11 5 ML Nystatin (Mycostatin Powder) 1 appln BID EXT 03/15/17 21:00 04/14/17 20:59 03/24/17 09:07 1 APPLN Calcium Carbonate (Tums Chew Tab) 2,000 mg QID PO 03/16/17 17:00 04/15/17 08:59 03/24/17 09:14 2,000 MG Potassium/ Phosphorus/Sodium (Phospha 250 Neutral 155-852-130 Mg) 1 tab QID PO 03/16/17 17:00 04/15/17 16:59 03/24/17 09:10 1 TAB Cholecalciferol (Vitamin D Tab) 5,000 inter.unit QAM PO 03/18/17 09:00 04/17/17 08:59 03/24/17 09:07 5,000 INTER.UNIT Calcitriol (Rocaltrol Cap) 1 mcg QAM PO 03/18/17 09:00 04/17/17 08:59 03/24/17 09:08 1 MCG Calcium Carbonate (oS-Randy 500 TAB) 1,250 mg QID PO 03/18/17 09:00 04/17/17 08:59 03/24/17 09:07 1,250 MG Trimethoprim/ Sulfamethoxazole (Septra Ds 800/ 160MG Tab) 1 tab DAILY PO 03/19/17 09:00 03/29/17 08:59 03/24/17 09:09 1 TAB Miscellaneous (Tap Water Enema) 1 ea Q2D PRN [place] 03/18/17 13:30 04/17/17 13:29 Heparin Sodium (Porcine) (Heparin 10 Unit/ ml 5 ml Flush) 5 ml PRN PRN FLUSH 03/18/17 15:30 04/17/17 15:29 03/19/17 13:04 5 ML Amoxicillin (Amoxil Cap) 250 mg TID PO 03/19/17 21:00 03/24/17 20:59 03/24/17 09:11 250 MG Calcium Gluconate 4000 mg/Sodium Chloride 540 ml @ 125 mls/hr Q4H20M IV 03/24/17 09:45 03/25/17 09:44 03/24/17 10:22 125 MLS/HR Impression (1) Hypocalcemia (2) Prostate cancer (3) Hypertension Mr. 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 He developed hypocalcemia following treatment with Denosumab. EKG documented new QTc prolongation. QTc has improved to 380. 25OH D deficiency documented. He has received ergocalciferol 37070 IU and is taking daily cholecalciferol. Calcitriol is being provided. Aggressive replacement with PO and IV calcium continues. The patient has associated hypomagnesemia. This is being treated with IV magnesium sulfate. Recommendations HYPOCALCEMIA: -- I have spoken w/ pharmacy. Will start Ca Gluconate infusion at 1 g IV / hr -- Repeat calcium ordered at 4 pm today -- Continue oral Ca and vitamin D supplements -- Vitamin D level is now acceptable at ~ 35 -- Once serum calcium ~ 8.0 or ionized > 1.0 will stop IV Ca and transition to oral calcium supplements HYPOMAGNESEMIA: -- Serum Mg has corrected. Will monitor.
--- NOTE | 2017-03-24 14:44 | Family Medicine Progress Note ---
Progress Note Date of Service Mar 24, 2017. 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 with natural gas inspector Constitutional: No fever Eyes: No worsening of vision ENT: No hearing loss Respiratory: No cough, No sputum, No wheezing, No shortness of breath, No dyspnea on exertion Cardiovascular: No chest pain Abdomen: No pain, No nausea, No vomiting, No diarrhea, No constipation Musculoskeletal: No joint pain, No muscle pain Male : + problem reported (bey) Neurologic: No weakness, No balance problems Psychiatric: No depression symptoms, No anxiety Heme: No abnormal bleeding/bruising Endo: No fatigue Skin: No rash Medications Medications Administered Medications (Trade) Dose Ordered Sig/Jonathan Route Start Time Stop Time Status Last Admin Dose Admin Sodium Chloride 1,000 ml @ 125 mls/hr Q8H STAT IV 03/15/17 10:09 03/15/17 16:58 DC 03/15/17 13:23 125 MLS/HR Sodium Chloride 1,000 ml @ 999 mls/hr Q1H1M STAT IV 03/15/17 10:22 03/15/17 11:22 DC 03/15/17 10:22 999 MLS/HR Calcium Gluconate (Calcium Gluconate 10%) 1,000 mg NOW STAT IV 03/15/17 12:26 03/15/17 12:28 DC 03/15/17 12:48 1,000 MG Magnesium Sulfate (Magnesium Sulfate) 2 gm NOW STAT IV 03/15/17 12:26 03/15/17 12:28 DC 03/15/17 13:35 2 GM Ceftriaxone Sodium (Rocephin Inj) 1 gm NOW STAT IV 03/15/17 12:26 03/15/17 12:28 DC 03/15/17 13:22 1 GM Calcium Gluconate 1000 mg/Sodium Chloride 60 ml @ 240 mls/hr NOW STAT IV 03/15/17 16:06 03/15/17 16:20 DC 03/15/17 17:33 240 MLS/HR Tamsulosin HCl (Flomax Cap) 0.8 mg HS PO 03/15/17 21:00 04/14/17 20:59 03/23/17 20:05 0.8 MG Pantoprazole Sodium (Protonix Tab) 40 mg QAM PO 03/16/17 09:00 04/15/17 08:59 03/24/17 09:11 40 MG Ranitidine HCl (zANTac TAB) 300 mg HS PO 03/15/17 21:00 04/14/17 20:59 03/23/17 20:04 300 MG Ceftriaxone Sodium 1 gm/ Dextrose 50 ml @ 100 mls/hr Q24H IV 03/16/17 14:00 03/17/17 12:03 DC 03/16/17 13:03 100 MLS/HR Docusate Sodium (coLACE CAP) 100 mg BID PO 03/15/17 21:00 04/14/17 20:59 03/24/17 09:07 100 MG Heparin Sodium (Porcine) (Heparin Sq 5000 Unit/0.5ml) 5,000 unit Q12 SQ 03/15/17 21:00 04/14/17 20:59 03/24/17 09:24 5,000 UNIT Desonide (Desowen 0.05% Crm) 1 appln BID EXT 03/15/17 21:00 04/14/17 20:59 03/24/17 09:07 1 APPLN Nystatin (Mycostatin Susp) 5 ml QID PO 03/15/17 17:00 03/25/17 16:59 03/24/17 14:08 5 ML Nystatin (Mycostatin Powder) 1 appln BID EXT 03/15/17 21:00 04/14/17 20:59 03/24/17 09:07 1 APPLN Ergocalciferol (Vitamin D Cap) 50,000 interunit NOW ONCE PO 03/15/17 17:00 03/15/17 17:01 DC 03/15/17 17:32 50,000 INTERUNIT Calcitriol (Rocaltrol Cap) 0.25 mcg 1700 ONCE PO 03/15/17 17:00 03/15/17 17:01 DC 03/15/17 17:31 0.25 MCG Calcium Carbonate (Tums Chew Tab) 1,000 mg NOW ONCE PO 03/15/17 17:00 03/15/17 17:01 DC 03/15/17 17:32 1,000 MG Calcium Carbonate (Tums Chew Tab) 1,000 mg QAM PO 03/16/17 09:00 03/16/17 09:00 DC 03/16/17 07:59 1,000 MG Sodium Phosphate 15 mmol/Sodium Chloride 255 ml @ 102 mls/hr 1800 ONCE IV 03/15/17 18:00 03/15/17 20:29 DC 03/15/17 18:50 102 MLS/HR Calcium Gluconate 2000 mg/Sodium Chloride 70 ml @ 240 mls/hr 2030 ONCE IV 03/15/17 20:30 03/15/17 20:47 DC 03/16/17 00:15 240 MLS/HR Calcium Gluconate 3000 mg/Sodium Chloride 80 ml @ 160 mls/hr NOW ONCE IV 03/16/17 02:00 03/16/17 02:29 DC 03/16/17 02:05 160 MLS/HR Magnesium Sulfate 1 gm/Prmx 100 ml @ 100 mls/hr TODAY@0800,0900 IV 03/16/17 08:00 03/16/17 09:59 DC 03/16/17 10:22 100 MLS/HR Calcium Carbonate (Tums Chew Tab) 1,000 mg QID PO 03/16/17 09:00 03/16/17 15:24 DC 03/16/17 13:03 1,000 MG Calcium Gluconate 2000 mg/Sodium Chloride 70 ml @ 240 mls/hr 1000 ONCE IV 03/16/17 10:00 03/16/17 10:17 DC 03/16/17 11:57 240 MLS/HR Calcium Carbonate (Tums Chew Tab) 2,000 mg QID PO 03/16/17 17:00 04/15/17 08:59 03/24/17 14:11 2,000 MG Potassium/ Phosphorus/Sodium (Phospha 250 Neutral 155-852-130 Mg) 1 tab QID PO 03/16/17 17:00 04/15/17 16:59 03/24/17 14:09 1 TAB Sodium Phosphate 21 mmol/Sodium Chloride 507 ml @ 144 mls/hr ONE ONCE IV 03/16/17 15:30 03/16/17 19:01 DC 03/16/17 15:47 144 MLS/HR Calcium Gluconate 2000 mg/Sodium Chloride 70 ml @ 240 mls/hr NOW STAT IV 03/16/17 15:28 03/16/17 15:45 DC 03/16/17 15:47 240 MLS/HR Calcium Gluconate 1000 mg/Sodium Chloride 60 ml @ 240 mls/hr NOW STAT IV 03/16/17 17:12 03/16/17 17:26 DC 03/16/17 17:41 240 MLS/HR Calcium Gluconate 1000 mg/Sodium Chloride 60 ml @ 120 mls/hr NOW ONCE IV 03/16/17 19:45 03/16/17 20:14 DC 03/16/17 19:54 120 MLS/HR Calcium Gluconate 1000 mg/Sodium Chloride 60 ml @ 240 mls/hr NOW STAT IV 03/17/17 04:32 03/17/17 04:46 DC 03/17/17 04:51 240 MLS/HR Calcium Gluconate 3000 mg/Sodium Chloride 80 ml @ 160 mls/hr 0900 ONCE IV 03/17/17 09:00 03/17/17 09:29 DC 03/17/17 09:00 160 MLS/HR Magnesium Sulfate 1 gm/Prmx 100 ml @ 100 mls/hr 0930,1030 IV 03/17/17 09:30 03/17/17 11:29 DC 03/17/17 10:25 100 MLS/HR Cholecalciferol (Vitamin D Tab) 1,000 inter.unit QAM PO 03/18/17 09:00 03/18/17 09:00 DC 03/18/17 07:43 1,000 INTER.UNIT Cholecalciferol (Vitamin D Tab) 1,000 inter.unit 0942 ONCE PO 03/17/17 09:42 03/17/17 09:44 DC 03/17/17 10:22 1,000 INTER.UNIT Calcitriol (Rocaltrol Cap) 1 mcg NOW ONCE PO 03/17/17 09:45 03/17/17 09:55 DC 03/17/17 10:22 1 MCG Calcium Gluconate 3000 mg/Sodium Chloride 80 ml @ 160 mls/hr 1130 ONCE IV 03/17/17 11:30 03/17/17 11:59 DC 03/17/17 11:25 160 MLS/HR Cephalexin Monohydrate (Keflex Cap) 500 mg BID PO 03/17/17 13:00 03/17/17 19:12 DC 03/17/17 14:57 500 MG Calcium Gluconate 3000 mg/Sodium Chloride 80 ml @ 160 mls/hr 1500 ONCE IV 03/17/17 15:00 03/17/17 15:29 DC 03/17/17 14:59 160 MLS/HR Calcium Gluconate 3000 mg/Sodium Chloride 80 ml @ 240 mls/hr Q6H IV 03/17/17 22:00 03/18/17 08:45 DC 03/18/17 04:16 240 MLS/HR Calcium Gluconate 1000 mg/Sodium Chloride 60 ml @ 240 mls/hr NOW STAT IV 03/17/17 19:39 03/17/17 19:53 DC 03/17/17 20:32 240 MLS/HR Magnesium Sulfate 1 gm/Prmx 100 ml @ 100 mls/hr Q1H IV 03/18/17 09:30 03/18/17 11:29 DC 03/18/17 15:15 100 MLS/HR Cholecalciferol (Vitamin D Tab) 5,000 inter.unit QAM PO 03/18/17 09:00 04/17/17 08:59 03/24/17 09:07 5,000 INTER.UNIT Calcitriol (Rocaltrol Cap) 1 mcg QAM PO 03/18/17 09:00 04/17/17 08:59 03/24/17 09:08 1 MCG Calcium Gluconate 4000 mg/Sodium Chloride 90 ml @ 120 mls/hr 0900 ONCE IV 03/18/17 09:00 03/18/17 09:44 DC 03/18/17 08:54 120 MLS/HR Calcium Gluconate 4000 mg/Sodium Chloride 90 ml @ 120 mls/hr 1000 IV 03/18/17 10:00 03/18/17 11:00 DC 03/18/17 09:52 120 MLS/HR Calcium Carbonate (oS-Randy 500 TAB) 1,250 mg QID PO 03/18/17 09:00 04/17/17 08:59 03/24/17 14:08 1,250 MG Trimethoprim/ Sulfamethoxazole (Septra Ds 800/ 160MG Tab) 1 tab DAILY PO 03/19/17 09:00 03/29/17 08:59 03/24/17 09:09 1 TAB Trimethoprim/ Sulfamethoxazole (Septra Ds 800/ 160MG Tab) 1 tab 1300 ONCE PO 03/18/17 13:00 03/18/17 13:01 DC 03/18/17 13:01 1 TAB Calcium Gluconate 3000 mg/Sodium Chloride 80 ml @ 160 mls/hr 1500 IV 03/18/17 15:00 03/18/17 15:29 DC 03/18/17 15:00 160 MLS/HR Heparin Sodium (Porcine) (Heparin 10 Unit/ ml 5 ml Flush) 5 ml PRN PRN FLUSH 03/18/17 15:30 04/17/17 15:29 03/19/17 13:04 5 ML Calcium Gluconate 4000 mg/Sodium Chloride 90 ml @ 120 mls/hr NOW STAT IV 03/18/17 21:35 03/18/17 22:19 DC 03/18/17 22:21 120 MLS/HR Calcium Gluconate 4000 mg/Sodium Chloride 90 ml @ 120 mls/hr ONE ONCE IV 03/19/17 00:00 03/19/17 00:44 DC 03/19/17 00:01 120 MLS/HR Calcium Gluconate 2000 mg/Sodium Chloride 70 ml @ 240 mls/hr 0800 ONCE IV 03/19/17 08:00 03/19/17 08:17 DC 03/19/17 08:48 240 MLS/HR Sodium Phosphate 15 mmol/Sodium Chloride 255 ml @ 88 mls/hr 0900 ONCE IV 03/19/17 09:00 03/19/17 11:53 DC 03/19/17 08:48 88 MLS/HR Amoxicillin (Amoxil Cap) 250 mg TID PO 03/19/17 21:00 03/24/17 20:59 03/24/17 14:09 250 MG Amoxicillin (Amoxil Cap) 250 mg TODAY@1515 ONCE PO 03/19/17 15:15 03/19/17 15:23 DC 03/19/17 15:33 250 MG Calcium Gluconate 2000 mg/Sodium Chloride 70 ml @ 240 mls/hr NOW STAT IV 03/19/17 17:53 03/19/17 18:10 DC 03/19/17 18:12 240 MLS/HR Calcium Gluconate 2000 mg/Sodium Chloride 70 ml @ 140 mls/hr NOW ONCE IV 03/19/17 19:00 03/19/17 19:29 DC 03/19/17 19:23 140 MLS/HR Calcium Gluconate 4000 mg/Sodium Chloride 140 ml @ 140 mls/hr 0900 IV 03/20/17 09:00 03/20/17 12:00 DC 03/20/17 09:01 140 MLS/HR Magnesium Sulfate 1 gm/Prmx 100 ml @ 100 mls/hr Q1H IV 03/20/17 10:00 03/20/17 11:59 DC 03/20/17 11:13 100 MLS/HR Calcium Gluconate 4000 mg/Sodium Chloride 140 ml @ 140 mls/hr TODAY@1645 ONCE IV 03/20/17 16:45 03/20/17 17:44 DC 03/20/17 16:53 140 MLS/HR Calcium Gluconate 3000 mg/Dextrose 280 ml @ 125 mls/hr Q2H15M IV 03/21/17 10:30 03/21/17 12:44 DC 03/21/17 10:58 125 MLS/HR Calcium Gluconate 3000 mg/Sodium Chloride 80 ml @ 160 mls/hr 1630 ONCE IV 03/21/17 16:30 03/21/17 16:59 DC 03/21/17 16:36 160 MLS/HR Calcium Gluconate 4000 mg/Dextrose 290 ml @ 125 mls/hr Q24H IV 03/22/17 11:30 03/23/17 09:32 DC 03/22/17 12:32 125 MLS/HR Calcium Gluconate 4000 mg/Dextrose 290 ml @ 125 mls/hr Q2H20M ONCE IV 03/22/17 18:45 03/22/17 21:04 DC 03/22/17 19:16 125 MLS/HR Calcium Gluconate 4000 mg/Dextrose 290 ml @ 150 mls/hr Q1H56M IV 03/23/17 09:45 03/23/17 11:40 DC 03/23/17 10:22 150 MLS/HR Calcium Gluconate 4000 mg/Dextrose 290 ml @ 150 mls/hr Q1H56M ONCE IV 03/23/17 16:45 03/23/17 18:40 DC 03/23/17 17:00 150 MLS/HR Calcium Gluconate 4000 mg/Sodium Chloride 540 ml @ 125 mls/hr Q4H20M IV 03/24/17 09:45 03/25/17 09:44 03/24/17 10:22 125 MLS/HR Objective Vital Signs Date Time Temp Pulse Resp B/P (MAP) Pulse Ox O2 Delivery O2 Flow Rate FiO2 03/24/17 12:00 Room Air 03/24/17 11:41 36.8 76 18 95/51 (66) 96 Room Air 03/24/17 08:00 Room Air 03/24/17 07:54 36.7 81 18 104/60 (75) 96 Room Air 03/24/17 04:11 37.1 83 17 95/54 (68) 96 Room Air 03/24/17 04:00 Room Air 03/24/17 00:00 Room Air 03/23/17 23:59 36.7 79 17 103/52 (69) 95 Room Air 03/23/17 20:00 Room Air 03/23/17 20:00 36.7 83 18 119/64 (82) 96 Room Air 03/23/17 16:01 36.7 80 18 114/65 (81) 97 Room Air 03/23/17 16:00 Room Air Physical Exam General Appearance: no apparent distress Eyes: normal inspection ENT: normal ENT inspection Neck: supple Respiratory/Chest: normal breath sounds, no respiratory distress, no accessory muscle use Cardiovascular: regular rate, rhythm, no murmur Abdomen: normal bowel sounds, non tender, soft Extremities: normal inspection, no pedal edema, no calf tenderness, + pertinent finding (PICC in left arm) Neurologic/Psychiatric: alert, normal mood/affect, oriented x 3 Skin: normal color, warm/dry, no rash Lymphatic: no adenopathy Laboratory Results Results Past 24 Hours Test 03/24/17 05:51 Range/Units Sodium Level 137 136-145 mmol/L Potassium Level 4.8 3.5-5.1 mmol/L Chloride Level 108 98-107 mmol/L Carbon Dioxide Level 23 21-32 mmol/L Anion Gap 6.0 3-11 mmol/L Blood Urea Nitrogen 8 7-18 mg/dl Creatinine 1.18 0.60-1.40 mg/dl Est Creatinine Clear Calc Drug Dose 41.1 ml/min Estimated GFR () 65.7 Estimated GFR (Non- 56.7 BUN/Creatinine Ratio 6.8 10-20 Random Glucose 82 70-99 mg/dl Calcium Level 6.6 8.5-10.1 mg/dl Phosphorus Level 1.9 2.5-4.9 mg/dl Magnesium Level 1.9 1.8-2.4 mg/dl Total Bilirubin 0.4 0.2-1 mg/dl Aspartate Amino Transf (AST/SGOT) 16 15-37 U/L Alanine Aminotransferase (ALT/SGPT) 14 12-78 U/L Alkaline Phosphatase 1102 45-117 U/L Total Protein 6.3 6.4-8.2 gm/dl Albumin 2.8 3.4-5.0 gm/dl Globulin 3.5 2.5-4.0 gm/dl Albumin/Globulin Ratio 0.8 0.9-2 Assessment and Plan Mr. Greene is an 81 year old man with a history of prostate cancer and osteoblastic mets that presented with fatigue and found to have severe hypocalcemia thought secondary to his Denosumab (03/02/2017 received dose). Hypocalcemia/hypophosphatemia secondary to Denosumab injection in the setting of metastatic prostate CA - continue to follow bid calcium per nephrology - plan is to be able to maintain serum Ca > 8.0 or ionized >1 on PO not IV - Calcitriol, Tums as PO source of calcium and Neutraphos PO for phos - Vit D oral supp, repeat reflected an improved Vit D level - appreciate rec from nephro UTI; stenotrophomona and enterococcus; chronic bey - Bactrim/ Amoxil day 07/22 - Originally was on Rocephin on admission Superficial thrombophlebitis of right arm; improved since admission - Ultrasound confirmation of superficial thrombus involving the cephalic vein - Avoid IV line in right UE - Warm compress Prostate Ca with mets to bone - continue tamsulosin, finasteride Intertrigo/thrush - nystatin swish and swallow, nystatin powder for groin Seborrheic dermatitis - desonide for face bid 10/ days CKD III stable - avoid nephrotoxins where possible - follow prn DVT Prophylaxis -Heparin subq bid Dispo: PT/OT rec once the patient stable on PO, downgrade to med surg DNR Continued [facility] stay due to: other Discharge planning: uncertain Reviewed: Pt Seen/Exam by Me History continues to be symptom free. Constitutional: denies: fever Respiratory: negative: short of breath Cardiovascular: denies chest pain General Appearance: no apparent distress Respiratory: lungs clear, no respiratory distress Cardiovascular: regular rate, rhythm Neurologic/Psychiatric: alert, oriented x 3 Assessment/Plan Resident Physician Supervision Note: I independently interviewed and examined the patient and verified the acevedo history and physical, reviewed labs and image studies, discussed the case with the resident Dr. Wilkins and agree with the findings and care plan.
--- NOTE | 2017-03-24 15:51 | ECHOCARDIOGRAM REPORT ---
*NOTICE TO RECEIVING CONSTITUTION PARTY AGENCY This information is strictly Confidential and protected under [place] law. [place] law prohibits you from making any further disclosure of this information unless further disclosure is expressly permitted by the written consent of the person to whom it pertains or is authorized by law. A general authorization for the release of medical or other information is not sufficient for this purpose. Hospital accepts no responsibility if the information is made available to any other person, INCLUDING THE PATIENT. Interpretation Summary * Name: NICOLE LOPEZ Study Date: 03/24/2017 09:48 AM BP: 95/54 mmHg * Patient Location: C.2T\S\S242\S\1 HR: 83 * : 1935 (M/d/yyyy) Gender: Male Height: 65 in * Age: 81 yrs Ethnicity: [place] Weight: 144 lb * Ordering Physician: Adolfo Barbosa * Referring Physician: Self, Referred * Performed By: Rita Pineda RDCS * * Reason For Study: A-tack * BSA: 1.7 m2 * -- Conclusions -- * Left ventricular systolic function is normal. * No regional wall motion abnormalities noted. * Ejection Fraction = 60-65%. * There is borderline asymmetric left ventricular hypertrophy. * Grade I diastolic dysfunction, (abnormal relaxation pattern). * There is mild mitral regurgitation. * There is mild tricuspid regurgitation. Procedure Details * A complete two-dimensional transthoracic echocardiogram was performed (2D, M-mode, Doppler and color flow Doppler). Left Ventricle * The left ventricle is normal in size. * There is borderline asymmetric left ventricular hypertrophy. * Ejection Fraction = 60-65%. * Left ventricular systolic function is normal. * No regional wall motion abnormalities noted. Right Ventricle * The right ventricle is not well visualized. * The right ventricular systolic function is normal as assessed by tricuspid annular plane systolic excursion (TAPSE) (normal >1.5 cm). Atria * The left atrium is mildly dilated. * Right atrial size is normal. * There is no evidence of atrial septal defect, but resolution does not allow assessment for a patent foramen ovale. Mitral Valve * The mitral valve is grossly normal. * There is no mitral valve stenosis. * There is mild mitral regurgitation. Tricuspid Valve * The tricuspid valve is not well visualized, but is grossly normal. * There is no tricuspid stenosis. * There is mild tricuspid regurgitation. Aortic Valve * The aortic valve is trileaflet. * The aortic valve opens well. * Aortic valve sclerosis mild, without significant aortic valvular stenosis. * No aortic regurgitation is present. Pulmonic Valve * The pulmonary valve is not well seen, but the Doppler examination is normal without significant regurgitation or stenosis. Great Vessels * The aortic root is normal size. * The pulmonary is not well visualized. Pericardium/Pleural * There is no pericardial effusion. Great Vessels * Normal inferior vena cava size and collapsability with sniff indicates a normal right atrial pressure of 3 mmHg Left Ventricular Diastolic Function * Grade I diastolic dysfunction, (abnormal relaxation pattern). MMode 2D Measurements and Calculations IVSd 0.87 cm LVIDd 4.4 cm LVIDs 3.0 cm LVPWd 0.95 cm IVS/LVPW 0.92 FS 32.6 % EDV(Teich) 87.5 ml ESV(Teich) 34.0 ml EF(Teich) 61.2 % EDV(cubed) 85.0 ml ESV(cubed) 26.0 ml EF(cubed) 69.4 % LV mass(C)d 129.6 grams LV mass(C)dI 75.3 grams/m\S\2 SV(Teich) 53.6 ml SI(Teich) 31.1 ml/m\S\2 SV(cubed) 59.0 ml SI(cubed) 34.3 ml/m\S\2 Ao root diam 2.8 cm Ao root area 6.2 cm\S\2 ACS 1.3 cm LA dimension 2.9 cm asc Aorta Diam 2.9 cm LA/Ao 1.0 LVOT diam 2.0 cm LVOT area 3.1 cm\S\2 LVAd ap4 21.2 cm\S\2 LVLd ap4 6.7 cm EDV(MOD-sp4) 55.7 ml EDV(sp4-el) 56.7 ml LVAs ap4 11.9 cm\S\2 LVLs ap4 5.6 cm ESV(MOD-sp4) 22.6 ml ESV(sp4-el) 21.4 ml EF(MOD-sp4) 59.4 % EF(sp4-el) 62.2 % LVAd ap2 17.2 cm\S\2 LVLd ap2 6.2 cm EDV(MOD-sp2) 39.0 ml EDV(sp2-el) 40.3 ml LVAs ap2 9.8 cm\S\2 LVLs ap2 5.2 cm ESV(MOD-sp2) 16.3 ml ESV(sp2-el) 15.7 ml EF(MOD-sp2) 58.2 % EF(sp2-el) 61.0 % LVLd %diff -7.92 % EDV(MOD-bp) 47.7 ml LVLs %diff -7.61 % ESV(MOD-bp) 19.3 ml EF(MOD-bp) 59.5 % SV(MOD-sp4) 33.1 ml SI(MOD-sp4) 19.2 ml/m\S\2 SV(MOD-sp2) 22.7 ml SI(MOD-sp2) 13.2 ml/m\S\2 SV(MOD-bp) 28.4 ml SI(MOD-bp) 16.5 ml/m\S\2 SV(sp4-el) 35.3 ml SI(sp4-el) 20.5 ml/m\S\2 SV(sp2-el) 24.6 ml SI(sp2-el) 14.3 ml/m\S\2 Doppler Measurements and Calculations MV E max bj 58.7 cm/sec MV A max jb 88.3 cm/sec MV E/A 0.66 MV dec time 0.24 sec Ao V2 max 147.8 cm/sec Ao max PG 8.7 mmHg Ao max PG (full) 4.3 mmHg ED(V,A) 2.2 cm\S\2 ED(V,D) 2.2 cm\S\2 LV V1 max PG 4.5 mmHg LV V1 max 105.7 cm/sec PA V2 max 109.9 cm/sec PA max PG 4.8 mmHg PA acc slope 452.6 cm/sec\S\2 PA acc time 0.12 sec PI end-d bj 105.9 cm/sec TR max bj 201.0 cm/sec PA pr(Accel) 23.5 mmHg
[2017-03-24] MEDS: TAMSULOSIN HCL 0.4 MG CAP PO SCH (20:39)
[2017-03-24] MEDS: RANITIDINE HCL 150 MG TAB PO SCH (20:40)
[2017-03-25] MEDS: CALCIUM GLUCONATE IV SCH ×5 (01:22→20:16)
[2017-03-25] MEDS: SODIUM CHLORIDE 0.9% IV SCH ×5 (01:22→20:16)
[2017-03-25 06:27] LABS: CALCIUM 7.5 mg/dl (8.5-10.1); CREATININE 1.14 mg/dl (0.60-1.40); POTASSIUM 4.9 mmol/L (3.5-5.1)
[2017-03-25 07:34] VITALS: BP 116/65; PULSE 79; TEMP 36.8; O2SAT 95
[2017-03-25 08:00] VITALS: O2SAT 95
[2017-03-25] MEDS: CALCITRIOL 0.25 MCG CAP PO SCH (08:35)
[2017-03-25] MEDS: POT PHOSPHATE MONOBASIC W/ SOD TAB PO SCH ×4 (08:36→20:25)
[2017-03-25] MEDS: CALCIUM CARBONATE 500 MG CHEWABLE PO SCH ×4 (08:36→20:25)
[2017-03-25] MEDS: NYSTATIN POWDER 15GM BTL EXT SCH ×2 (08:36→20:00)
[2017-03-25] MEDS: CHOLECALCIFEROL 1000 INTER.UNIT TAB PO SCH (08:36)
[2017-03-25] MEDS: DOCUSATE SODIUM 100 MG CAP PO SCH ×2 (08:36→20:26)
[2017-03-25] MEDS: CALCIUM CARBONATE 1250MG TAB PO SCH ×4 (08:36→20:26)
[2017-03-25] MEDS: DESONIDE CR 15 GM TUBE EXT SCH ×2 (08:37→20:24)
[2017-03-25] MEDS: SULFAMETHOXAZOLE/TRIMETHOPRIM DS 800/160MG TAB PO SCH (08:37)
[2017-03-25] MEDS: PANTOprazole SOD 40 MG TAB PO SCH (08:37)
[2017-03-25] MEDS: NYSTATIN SUSP 500,000 U/5 ML UDC PO SCH ×2 (08:37→12:19)
[2017-03-25] MEDS: HEPARIN SOD 5000 UNIT/0.5 ML CARP SQ SCH ×2 (08:50→20:27)
--- NOTE | 2017-03-25 10:50 | Nephrology Progress Note ---
Nephrology Progress Note Date of Service Mar 25, 2017. Chief Complaint Hypocalcemia, metastatic prostate cancer Subjective Mr. Greene was seen & examined in his hospital room this morning. He is now on a continuous infusion of Ca gluconate 1 g per hour. He denies dyspnea or muscle spasms. He voices no new medical concerns. Review of Systems Constitutional: No fever Cardiovascular: No chest pain Respiratory: No dyspnea at rest Abdomen: No pain, No nausea, No vomiting Extremities: No leg edema A complete review of systems was performed. Pertinent positives are noted above. All other systems are negative. Vital Signs Last 8 Hrs Date Time Temp Pulse Resp B/P (MAP) Pulse Ox O2 Delivery O2 Flow Rate FiO2 03/25/17 08:00 95 Room Air 03/25/17 07:34 36.8 79 18 116/65 (82) 95 Room Air Last Recorded Weight Weight (Kilograms): 63.500 Physical Exam General Appearance: no apparent distress Head: normocephalic, atraumatic Eyes: PERRL, EOMI Neck: no adenopathy Cardiovascular: regular rate, rhythm Abdomen/GI: normal bowel sounds, non tender, soft Extremities/Musculoskelatal: no calf tenderness, no pedal edema Neurologic/Psych: alert, oriented x 3 Social History Drug Use: none Marital Status: Housing Status: lives with family (lives with son) 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 03/25/17 05:40 Test 03/24/17 16:14 03/25/17 05:40 Calcium Level 7.2 mg/dl (8.5-10.1) 7.5 mg/dl (8.5-10.1) Anion Gap 4.0 mmol/L (3-11) Est Creatinine Clear Calc Drug Dose 42.7 ml/min Estimated GFR () 68.5 Estimated GFR (Non- 59.1 BUN/Creatinine Ratio 6.0 (10-20) Allergies Coded Allergies: No Known Allergies (Unverified , 03/15/17) Medications Current Inpatient Medications Medications (Trade) Dose Ordered Sig/Jonathan Route Start Time Stop Time Status Last Admin Dose Admin Acetaminophen (Tylenol Tab) 650 mg Q4H PRN PO 03/15/17 14:15 04/14/17 14:14 Tamsulosin HCl (Flomax Cap) 0.8 mg HS PO 03/15/17 21:00 04/14/17 20:59 03/24/17 20:39 0.8 MG Miscellaneous Information (Order Awaiting Action) 1 ea QS N/A 03/15/17 16:00 04/14/17 15:59 Pantoprazole Sodium (Protonix Tab) 40 mg QAM PO 03/16/17 09:00 04/15/17 08:59 03/25/17 08:37 40 MG Ranitidine HCl (zANTac TAB) 300 mg HS PO 03/15/17 21:00 04/14/17 20:59 03/24/17 20:40 300 MG Polyethylene (Miralax Powder Packet) 17 gm DAILY PRN PO 03/15/17 15:00 04/14/17 14:59 Docusate Sodium (coLACE CAP) 100 mg BID PO 03/15/17 21:00 04/14/17 20:59 03/25/17 08:36 100 MG Bisacodyl (Dulcolax Supp) 10 mg DAILY PRN [place] 03/15/17 15:00 04/14/17 14:59 Heparin Sodium (Porcine) (Heparin Sq 5000 Unit/0.5ml) 5,000 unit Q12 SQ 03/15/17 21:00 04/14/17 20:59 03/25/17 08:50 5,000 UNIT Desonide (Desowen 0.05% Crm) 1 appln BID EXT 03/15/17 21:00 04/14/17 20:59 03/25/17 08:37 1 APPLN Nystatin (Mycostatin Susp) 5 ml QID PO 03/15/17 17:00 03/25/17 16:59 03/25/17 08:37 5 ML Nystatin (Mycostatin Powder) 1 appln BID EXT 03/15/17 21:00 04/14/17 20:59 03/25/17 08:36 1 APPLN Calcium Carbonate (Tums Chew Tab) 2,000 mg QID PO 03/16/17 17:00 04/15/17 08:59 03/25/17 08:36 2,000 MG Potassium/ Phosphorus/Sodium (Phospha 250 Neutral 155-852-130 Mg) 1 tab QID PO 03/16/17 17:00 04/15/17 16:59 2/11/18 08:36 1 TAB Cholecalciferol (Vitamin D Tab) 5,000 inter.unit QAM PO 03/18/17 09:00 04/17/17 08:59 03/25/17 08:36 5,000 INTER.UNIT Calcitriol (Rocaltrol Cap) 1 mcg QAM PO 03/18/17 09:00 04/17/17 08:59 03/25/17 08:35 1 MCG Calcium Carbonate (oS-Randy 500 TAB) 1,250 mg QID PO 03/18/17 09:00 04/17/17 08:59 03/25/17 08:36 1,250 MG Trimethoprim/ Sulfamethoxazole (Septra Ds 800/ 160MG Tab) 1 tab DAILY PO 03/19/17 09:00 03/29/17 08:59 03/25/17 08:37 1 TAB Miscellaneous (Tap Water Enema) 1 ea Q2D PRN [place] 03/18/17 13:30 04/17/17 13:29 Heparin Sodium (Porcine) (Heparin 10 Unit/ ml 5 ml Flush) 5 ml PRN PRN FLUSH 03/18/17 15:30 04/17/17 15:29 03/25/17 05:42 5 ML Impression (1) Hypocalcemia (2) Prostate cancer (3) Hypertension Mr. 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 He developed hypocalcemia following treatment with Denosumab. EKG documented new QTc prolongation. QTc has improved to 380. 25OH D deficiency documented. He has received ergocalciferol 65385 IU and is taking daily cholecalciferol. Calcitriol is being provided. Aggressive replacement with PO and IV calcium continues. The patient has associated hypomagnesemia. This is being treated with IV magnesium sulfate. Recommendations HYPOCALCEMIA: -- Total calcium is now up to 7.5. Continue Ca gluconate gtt at 1 g / hr -- Repeat calcium ordered at 4 pm today -- Continue oral Ca and vitamin D supplements -- Vitamin D level is now acceptable at ~ 35 -- Once serum calcium ~ 8.0 or ionized > 1.0 will stop IV Ca and transition to oral calcium supplements HYPOMAGNESEMIA: -- Serum Mg has corrected. Will monitor.
--- NOTE | 2017-03-25 10:56 | Family Medicine Progress Note ---
Progress Note Date of Service Mar 25, 2017. Subjective Pt evaluation today including: conversation w/ patient, physical exam, chart review, lab review, review of studies Pain: 0/10 PO Intake: WNL Voiding: bey catheter in place No complaints, denies pain cheerful this am Constitutional: No fever Eyes: No worsening of vision ENT: No hearing loss Respiratory: No cough, No sputum, No wheezing, No shortness of breath, No dyspnea on exertion Cardiovascular: No chest pain Abdomen: No pain, No nausea, No vomiting, No diarrhea, No constipation Musculoskeletal: No joint pain, No muscle pain Male : + problem reported (bey) Neurologic: No weakness, No balance problems Psychiatric: No depression symptoms Heme: No abnormal bleeding/bruising Endo: No fatigue Skin: No rash Medications Medications Administered Medications (Trade) Dose Ordered Sig/Jonathan Route Start Time Stop Time Status Last Admin Dose Admin Sodium Chloride 1,000 ml @ 125 mls/hr Q8H STAT IV 03/15/17 10:09 03/15/17 16:58 DC 03/15/17 13:23 125 MLS/HR Sodium Chloride 1,000 ml @ 999 mls/hr Q1H1M STAT IV 03/15/17 10:22 03/15/17 11:22 DC 03/15/17 10:22 999 MLS/HR Calcium Gluconate (Calcium Gluconate 10%) 1,000 mg NOW STAT IV 03/15/17 12:26 03/15/17 12:28 DC 03/15/17 12:48 1,000 MG Magnesium Sulfate (Magnesium Sulfate) 2 gm NOW STAT IV 03/15/17 12:26 03/15/17 12:28 DC 03/15/17 13:35 2 GM Ceftriaxone Sodium (Rocephin Inj) 1 gm NOW STAT IV 03/15/17 12:26 03/15/17 12:28 DC 03/15/17 13:22 1 GM Calcium Gluconate 1000 mg/Sodium Chloride 60 ml @ 240 mls/hr NOW STAT IV 03/15/17 16:06 03/15/17 16:20 DC 03/15/17 17:33 240 MLS/HR Tamsulosin HCl (Flomax Cap) 0.8 mg HS PO 03/15/17 21:00 04/14/17 20:59 03/24/17 20:39 0.8 MG Pantoprazole Sodium (Protonix Tab) 40 mg QAM PO 03/16/17 09:00 04/15/17 08:59 03/25/17 08:37 40 MG Ranitidine HCl (zANTac TAB) 300 mg HS PO 03/15/17 21:00 04/14/17 20:59 03/24/17 20:40 300 MG Ceftriaxone Sodium 1 gm/ Dextrose 50 ml @ 100 mls/hr Q24H IV 03/16/17 14:00 03/17/17 12:03 DC 03/16/17 13:03 100 MLS/HR Docusate Sodium (coLACE CAP) 100 mg BID PO 03/15/17 21:00 04/14/17 20:59 03/25/17 08:36 100 MG Heparin Sodium (Porcine) (Heparin Sq 5000 Unit/0.5ml) 5,000 unit Q12 SQ 03/15/17 21:00 04/14/17 20:59 03/25/17 08:50 5,000 UNIT Desonide (Desowen 0.05% Crm) 1 appln BID EXT 03/15/17 21:00 04/14/17 20:59 03/25/17 08:37 1 APPLN Nystatin (Mycostatin Susp) 5 ml QID PO 03/15/17 17:00 03/25/17 16:59 03/25/17 12:19 5 ML Nystatin (Mycostatin Powder) 1 appln BID EXT 03/15/17 21:00 04/14/17 20:59 03/25/17 08:36 1 APPLN Ergocalciferol (Vitamin D Cap) 50,000 interunit NOW ONCE PO 03/15/17 17:00 03/15/17 17:01 DC 03/15/17 17:32 50,000 INTERUNIT Calcitriol (Rocaltrol Cap) 0.25 mcg 1700 ONCE PO 03/15/17 17:00 03/15/17 17:01 DC 03/15/17 17:31 0.25 MCG Calcium Carbonate (Tums Chew Tab) 1,000 mg NOW ONCE PO 03/15/17 17:00 03/15/17 17:01 DC 03/15/17 17:32 1,000 MG Calcium Carbonate (Tums Chew Tab) 1,000 mg QAM PO 03/16/17 09:00 03/16/17 09:00 DC 03/16/17 07:59 1,000 MG Sodium Phosphate 15 mmol/Sodium Chloride 255 ml @ 102 mls/hr 1800 ONCE IV 03/15/17 18:00 03/15/17 20:29 DC 03/15/17 18:50 102 MLS/HR Calcium Gluconate 2000 mg/Sodium Chloride 70 ml @ 240 mls/hr 2030 ONCE IV 03/15/17 20:30 03/15/17 20:47 DC 03/16/17 00:15 240 MLS/HR Calcium Gluconate 3000 mg/Sodium Chloride 80 ml @ 160 mls/hr NOW ONCE IV 03/16/17 02:00 03/16/17 02:29 DC 03/16/17 02:05 160 MLS/HR Magnesium Sulfate 1 gm/Prmx 100 ml @ 100 mls/hr TODAY@0800,0900 IV 03/16/17 08:00 03/16/17 09:59 DC 03/16/17 10:22 100 MLS/HR Calcium Carbonate (Tums Chew Tab) 1,000 mg QID PO 03/16/17 09:00 03/16/17 15:24 DC 03/16/17 13:03 1,000 MG Calcium Gluconate 2000 mg/Sodium Chloride 70 ml @ 240 mls/hr 1000 ONCE IV 03/16/17 10:00 03/16/17 10:17 DC 03/16/17 11:57 240 MLS/HR Calcium Carbonate (Tums Chew Tab) 2,000 mg QID PO 03/16/17 17:00 04/15/17 08:59 03/25/17 12:19 2,000 MG Potassium/ Phosphorus/Sodium (Phospha 250 Neutral 155-852-130 Mg) 1 tab QID PO 03/16/17 17:00 04/15/17 16:59 03/25/17 12:19 1 TAB Sodium Phosphate 21 mmol/Sodium Chloride 507 ml @ 144 mls/hr ONE ONCE IV 03/16/17 15:30 03/16/17 19:01 DC 03/16/17 15:47 144 MLS/HR Calcium Gluconate 2000 mg/Sodium Chloride 70 ml @ 240 mls/hr NOW STAT IV 03/16/17 15:28 03/16/17 15:45 DC 03/16/17 15:47 240 MLS/HR Calcium Gluconate 1000 mg/Sodium Chloride 60 ml @ 240 mls/hr NOW STAT IV 03/16/17 17:12 03/16/17 17:26 DC 03/16/17 17:41 240 MLS/HR Calcium Gluconate 1000 mg/Sodium Chloride 60 ml @ 120 mls/hr NOW ONCE IV 03/16/17 19:45 03/16/17 20:14 DC 03/16/17 19:54 120 MLS/HR Calcium Gluconate 1000 mg/Sodium Chloride 60 ml @ 240 mls/hr NOW STAT IV 03/17/17 04:32 03/17/17 04:46 DC 03/17/17 04:51 240 MLS/HR Calcium Gluconate 3000 mg/Sodium Chloride 80 ml @ 160 mls/hr 0900 ONCE IV 03/17/17 09:00 03/17/17 09:29 DC 03/17/17 09:00 160 MLS/HR Magnesium Sulfate 1 gm/Prmx 100 ml @ 100 mls/hr 0930,1030 IV 03/17/17 09:30 03/17/17 11:29 DC 03/17/17 10:25 100 MLS/HR Cholecalciferol (Vitamin D Tab) 1,000 inter.unit QAM PO 03/18/17 09:00 03/18/17 09:00 DC 03/18/17 07:43 1,000 INTER.UNIT Cholecalciferol (Vitamin D Tab) 1,000 inter.unit 0942 ONCE PO 03/17/17 09:42 03/17/17 09:44 DC 03/17/17 10:22 1,000 INTER.UNIT Calcitriol (Rocaltrol Cap) 1 mcg NOW ONCE PO 03/17/17 09:45 03/17/17 09:55 DC 03/17/17 10:22 1 MCG Calcium Gluconate 3000 mg/Sodium Chloride 80 ml @ 160 mls/hr 1130 ONCE IV 03/17/17 11:30 03/17/17 11:59 DC 03/17/17 11:25 160 MLS/HR Cephalexin Monohydrate (Keflex Cap) 500 mg BID PO 03/17/17 13:00 03/17/17 19:12 DC 03/17/17 14:57 500 MG Calcium Gluconate 3000 mg/Sodium Chloride 80 ml @ 160 mls/hr 1500 ONCE IV 03/17/17 15:00 03/17/17 15:29 DC 03/17/17 14:59 160 MLS/HR Calcium Gluconate 3000 mg/Sodium Chloride 80 ml @ 240 mls/hr Q6H IV 03/17/17 22:00 03/18/17 08:45 DC 03/18/17 04:16 240 MLS/HR Calcium Gluconate 1000 mg/Sodium Chloride 60 ml @ 240 mls/hr NOW STAT IV 03/17/17 19:39 03/17/17 19:53 DC 03/17/17 20:32 240 MLS/HR Magnesium Sulfate 1 gm/Prmx 100 ml @ 100 mls/hr Q1H IV 03/18/17 09:30 03/18/17 11:29 DC 03/18/17 15:15 100 MLS/HR Cholecalciferol (Vitamin D Tab) 5,000 inter.unit QAM PO 03/18/17 09:00 04/17/17 08:59 03/25/17 08:36 5,000 INTER.UNIT Calcitriol (Rocaltrol Cap) 1 mcg QAM PO 03/18/17 09:00 04/17/17 08:59 03/25/17 08:35 1 MCG Calcium Gluconate 4000 mg/Sodium Chloride 90 ml @ 120 mls/hr 0900 ONCE IV 03/18/17 09:00 03/18/17 09:44 DC 03/18/17 08:54 120 MLS/HR Calcium Gluconate 4000 mg/Sodium Chloride 90 ml @ 120 mls/hr 1000 IV 03/18/17 10:00 03/18/17 11:00 DC 03/18/17 09:52 120 MLS/HR Calcium Carbonate (oS-Randy 500 TAB) 1,250 mg QID PO 03/18/17 09:00 04/17/17 08:59 03/25/17 12:19 1,250 MG Trimethoprim/ Sulfamethoxazole (Septra Ds 800/ 160MG Tab) 1 tab DAILY PO 03/19/17 09:00 03/29/17 08:59 03/25/17 08:37 1 TAB Trimethoprim/ Sulfamethoxazole (Septra Ds 800/ 160MG Tab) 1 tab 1300 ONCE PO 03/18/17 13:00 03/18/17 13:01 DC 03/18/17 13:01 1 TAB Calcium Gluconate 3000 mg/Sodium Chloride 80 ml @ 160 mls/hr 1500 IV 03/18/17 15:00 03/18/17 15:29 DC 03/18/17 15:00 160 MLS/HR Heparin Sodium (Porcine) (Heparin 10 Unit/ ml 5 ml Flush) 5 ml PRN PRN FLUSH 03/18/17 15:30 04/17/17 15:29 03/25/17 05:42 5 ML Calcium Gluconate 4000 mg/Sodium Chloride 90 ml @ 120 mls/hr NOW STAT IV 03/18/17 21:35 03/18/17 22:19 DC 03/18/17 22:21 120 MLS/HR Calcium Gluconate 4000 mg/Sodium Chloride 90 ml @ 120 mls/hr ONE ONCE IV 03/19/17 00:00 03/19/17 00:44 DC 03/19/17 00:01 120 MLS/HR Calcium Gluconate 2000 mg/Sodium Chloride 70 ml @ 240 mls/hr 0800 ONCE IV 03/19/17 08:00 03/19/17 08:17 DC 03/19/17 08:48 240 MLS/HR Sodium Phosphate 15 mmol/Sodium Chloride 255 ml @ 88 mls/hr 0900 ONCE IV 03/19/17 09:00 03/19/17 11:53 DC 03/19/17 08:48 88 MLS/HR Amoxicillin (Amoxil Cap) 250 mg TID PO 03/19/17 21:00 03/24/17 20:59 DC 03/24/17 21:17 250 MG Amoxicillin (Amoxil Cap) 250 mg TODAY@1515 ONCE PO 03/19/17 15:15 03/19/17 15:23 DC 03/19/17 15:33 250 MG Calcium Gluconate 2000 mg/Sodium Chloride 70 ml @ 240 mls/hr NOW STAT IV 03/19/17 17:53 03/19/17 18:10 DC 03/19/17 18:12 240 MLS/HR Calcium Gluconate 2000 mg/Sodium Chloride 70 ml @ 140 mls/hr NOW ONCE IV 03/19/17 19:00 03/19/17 19:29 DC 03/19/17 19:23 140 MLS/HR Calcium Gluconate 4000 mg/Sodium Chloride 140 ml @ 140 mls/hr 0900 IV 03/20/17 09:00 03/20/17 12:00 DC 03/20/17 09:01 140 MLS/HR Magnesium Sulfate 1 gm/Prmx 100 ml @ 100 mls/hr Q1H IV 03/20/17 10:00 03/20/17 11:59 DC 03/20/17 11:13 100 MLS/HR Calcium Gluconate 4000 mg/Sodium Chloride 140 ml @ 140 mls/hr TODAY@1645 ONCE IV 03/20/17 16:45 03/20/17 17:44 DC 03/20/17 16:53 140 MLS/HR Calcium Gluconate 3000 mg/Dextrose 280 ml @ 125 mls/hr Q2H15M IV 03/21/17 10:30 03/21/17 12:44 DC 03/21/17 10:58 125 MLS/HR Calcium Gluconate 3000 mg/Sodium Chloride 80 ml @ 160 mls/hr 1630 ONCE IV 03/21/17 16:30 03/21/17 16:59 DC 03/21/17 16:36 160 MLS/HR Calcium Gluconate 4000 mg/Dextrose 290 ml @ 125 mls/hr Q24H IV 03/22/17 11:30 03/23/17 09:32 DC 03/22/17 12:32 125 MLS/HR Calcium Gluconate 4000 mg/Dextrose 290 ml @ 125 mls/hr Q2H20M ONCE IV 03/22/17 18:45 03/22/17 21:04 DC 03/22/17 19:16 125 MLS/HR Calcium Gluconate 4000 mg/Dextrose 290 ml @ 150 mls/hr Q1H56M IV 03/23/17 09:45 03/23/17 11:40 DC 03/23/17 10:22 150 MLS/HR Calcium Gluconate 4000 mg/Dextrose 290 ml @ 150 mls/hr Q1H56M ONCE IV 03/23/17 16:45 03/23/17 18:40 DC 03/23/17 17:00 150 MLS/HR Calcium Gluconate 4000 mg/Sodium Chloride 540 ml @ 125 mls/hr Q4H20M IV 03/24/17 09:45 03/25/17 09:44 DC 03/25/17 10:05 125 MLS/HR Objective Vital Signs Date Time Temp Pulse Resp B/P (MAP) Pulse Ox O2 Delivery O2 Flow Rate FiO2 03/25/17 11:37 36.7 83 18 114/62 (79) 97 03/25/17 08:00 95 Room Air 03/25/17 07:34 36.8 79 18 116/65 (82) 95 Room Air 03/25/17 00:00 Room Air 03/24/17 22:05 36.6 85 18 122/67 (85) 94 Room Air 03/24/17 19:23 36.6 89 18 122/71 (88) 98 Room Air 03/24/17 16:20 Room Air 03/24/17 16:01 36.7 87 18 139/78 (98) 97 Room Air 03/24/17 16:00 36.8 76 18 96 Physical Exam General Appearance: no apparent distress Eyes: normal inspection ENT: normal ENT inspection Neck: supple Respiratory/Chest: normal breath sounds, no respiratory distress, no accessory muscle use Cardiovascular: regular rate, rhythm, no murmur Abdomen: normal bowel sounds, non tender, soft Extremities: normal range of motion, non-tender, normal inspection, no pedal edema, no calf tenderness Neurologic/Psychiatric: alert, normal mood/affect, oriented x 3 Skin: normal color, warm/dry, no rash Lymphatic: no adenopathy Laboratory Results Results Past 24 Hours Test 03/24/17 16:14 03/25/17 05:40 Range/Units Calcium Level 7.2 7.5 8.5-10.1 mg/dl Sodium Level 138 136-145 mmol/L Potassium Level 4.9 3.5-5.1 mmol/L Chloride Level 111 98-107 mmol/L Carbon Dioxide Level 23 21-32 mmol/L Anion Gap 4.0 3-11 mmol/L Blood Urea Nitrogen 7 7-18 mg/dl Creatinine 1.14 0.60-1.40 mg/dl Est Creatinine Clear Calc Drug Dose 42.7 ml/min Estimated GFR () 68.5 Estimated GFR (Non- 59.1 BUN/Creatinine Ratio 6.0 10-20 Random Glucose 81 70-99 mg/dl Assessment and Plan Mr. Greene is an 81 year old man with a history of prostate cancer and osteoblastic mets that presented with fatigue and found to have severe hypocalcemia thought secondary to his Denosumab (03/02/2017 received dose). Hypocalcemia/hypophosphatemia secondary to Denosumab injection in the setting of metastatic prostate CA - plan is to be able to maintain serum Ca > 8.0 or ionized >1 - now on IV calcium infusion - Calcitriol, Tums as PO source of calcium and Neutraphos PO for phos - Vit D oral supp, repeat reflected an improved Vit D level - appreciate rec from nephro UTI; stenotrophomona and enterococcus; chronic bey - Bactrim/ Amoxil day 08/21 - Originally was on Rocephin on admission Superficial thrombophlebitis of right arm; improved since admission - Ultrasound confirmation of superficial thrombus involving the cephalic vein - Avoid IV line in right UE - Warm compress Prostate Ca with mets to bone - continue tamsulosin, finasteride Intertrigo/thrush - nystatin swish and swallow, nystatin powder for groin Seborrheic dermatitis - desonide for face bid 12/26 days CKD III stable - avoid nephrotoxins where possible - follow prn DVT Prophylaxis -Heparin subq bid Dispo: PT/OT rec once the patient stable on PO DNR Continued [facility] stay due to: multiple IV medications needed Discharge planning: uncertain Reviewed: Pt Seen/Exam by Me History no concerns Constitutional: denies: fever Respiratory: negative: short of breath Cardiovascular: denies chest pain General Appearance: no apparent distress Respiratory: lungs clear, no respiratory distress Cardiovascular: regular rate, rhythm Neurologic/Psychiatric: alert, oriented x 3 Skin Characteristics: warm/dry Assessment/Plan Resident Physician Supervision Note: I independently interviewed and examined the patient and verified the acevedo history and physical, reviewed labs and image studies, discussed the case with the resident Dr. Wilkins and agree with the findings and care plan.
[2017-03-25 11:37] VITALS: BP 114/62; PULSE 83; TEMP 36.7; O2SAT 97
[2017-03-25 14:28] VITALS: BP 115/53; PULSE 80; TEMP 36.7; O2SAT 98
[2017-03-25 19:43] VITALS: BP 136/71; PULSE 82; TEMP 36.3; O2SAT 98
[2017-03-25] MEDS: TAMSULOSIN HCL 0.4 MG CAP PO SCH (20:25)
[2017-03-25] MEDS: RANITIDINE HCL 150 MG TAB PO SCH (20:26)
[2017-03-25 22:41] VITALS: BP 129/63; PULSE 90; TEMP 36.8; O2SAT 96
[2017-03-26] MEDS: CALCIUM GLUCONATE IV SCH ×4 (00:54→09:59)
[2017-03-26] MEDS: SODIUM CHLORIDE 0.9% IV SCH ×4 (00:54→09:59)
[2017-03-26 03:49] VITALS: BP 133/71; PULSE 62; TEMP 36.6; O2SAT 93
[2017-03-26 06:12] LABS: HEMATOCRIT 29.5 % (42-52); HEMOGLOBIN 9.6 g/dL (14.0-18.0); MEAN CELL VOLUME 87.3 fL (80-100); MEAN CORPUSCULAR HEMOGLOBIN 28.4 pg (25-34); MEAN CORPUSCULAR HGB CONC 32.5 g/dl (32-36); PLATELET COUNT 162 K/uL (130-400); RED CELL DISTRIBUTION WIDTH CV 17.7 % (11.5-14.5); RED CELL DISTRIBUTION WIDTH SD 56.2 fL (36.4-46.3)
[2017-03-26 06:48] LABS: CREATININE 1.2 mg/dl (0.60-1.40); POTASSIUM 4.9 mmol/L (3.5-5.1)
[2017-03-26 08:08] VITALS: BP 121/74; PULSE 88; TEMP 36.9; O2SAT 97
[2017-03-26] MEDS: NYSTATIN POWDER 15GM BTL EXT SCH ×2 (08:35→20:00)
[2017-03-26] MEDS: DESONIDE CR 15 GM TUBE EXT SCH ×2 (08:35→22:20)
[2017-03-26] MEDS: CALCIUM CARBONATE 1250MG TAB PO SCH ×4 (08:36→22:19)
[2017-03-26] MEDS: SULFAMETHOXAZOLE/TRIMETHOPRIM DS 800/160MG TAB PO SCH (08:36)
[2017-03-26] MEDS: DOCUSATE SODIUM 100 MG CAP PO SCH ×2 (08:37→22:19)
[2017-03-26] MEDS: PANTOprazole SOD 40 MG TAB PO SCH (08:37)
[2017-03-26] MEDS: POT PHOSPHATE MONOBASIC W/ SOD TAB PO SCH ×4 (08:37→22:18)
[2017-03-26] MEDS: CHOLECALCIFEROL 1000 INTER.UNIT TAB PO SCH (08:37)
[2017-03-26] MEDS: CALCIUM CARBONATE 500 MG CHEWABLE PO SCH ×4 (08:38→22:18)
[2017-03-26] MEDS: CALCITRIOL 0.25 MCG CAP PO SCH (08:38)
[2017-03-26] MEDS: HEPARIN SOD 5000 UNIT/0.5 ML CARP SQ SCH ×2 (08:42→22:22)
[2017-03-26 11:58] VITALS: BP 119/60; PULSE 80; TEMP 36.8; O2SAT 95
--- NOTE | 2017-03-26 12:25 | Nephrology Progress Note ---
Nephrology Progress Note Date of Service Mar 26, 2017. Chief Complaint Follow-up for hypocalcemia Subjective David was seen and examined in his room this morning. He has been otherwise feeling better although appetite is not that great. Denies any shortness of breath or chest pain. Calcium improved and has been stable at 9.1, corrected. Review of Systems A complete review of systems was performed. Pertinent positives are noted above. All other systems are negative. Vital Signs Last 8 Hrs Date Time Temp Pulse Resp B/P (MAP) Pulse Ox O2 Delivery O2 Flow Rate FiO2 03/26/17 08:08 36.9 88 20 121/74 (90) 97 Room Air 03/26/17 03:49 36.6 62 18 133/71 (91) 93 Room Air Last Recorded Weight Weight (Kilograms): 64.200 Physical Exam GENERAL: elderly male , AAA x 3, pleasant, healthy-appearing, not in any distress. NECK: Supple, no JVD. RESPIRATORY: Normal breathing efforts, no accessory muscle use, clear to auscultation bilaterally, no wheezes or rales. CARDIOVASCULAR: S1, S2 normal, rate rhythm regular. EXTREMITY: No lower extremity edema NEURO: speech fluent. 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 03/26/17 05:16 03/26/17 05:16 Test 03/25/17 16:29 03/26/17 05:16 Calcium Level 8.0 mg/dl (8.5-10.1) 8.0 mg/dl (8.5-10.1) Red Blood Count 3.38 M/uL (4.7-6.1) Mean Corpuscular Volume 87.3 fL (80-100) Mean Corpuscular Hemoglobin 28.4 pg (25-34) Mean Corpuscular Hemoglobin Concent 32.5 g/dl (32-36) RDW Standard Deviation 56.2 fL (36.4-46.3) RDW Coefficient of Variation 17.7 % (11.5-14.5) Mean Platelet Volume 8.0 fL (7.4-10.4) Anion Gap 9.0 mmol/L (3-11) Est Creatinine Clear Calc Drug Dose 40.6 ml/min Estimated GFR () 64.4 Estimated GFR (Non- 55.6 BUN/Creatinine Ratio 5.3 (10-20) Allergies Coded Allergies: No Known Allergies (Unverified , 03/15/17) Medications Current Inpatient Medications Medications (Trade) Dose Ordered Sig/Jonathan Route Start Time Stop Time Status Last Admin Dose Admin Acetaminophen (Tylenol Tab) 650 mg Q4H PRN PO 03/15/17 14:15 04/14/17 14:14 Tamsulosin HCl (Flomax Cap) 0.8 mg HS PO 03/15/17 21:00 04/14/17 20:59 03/25/17 20:25 0.8 MG Miscellaneous Information (Order Awaiting Action) 1 ea QS N/A 03/15/17 16:00 04/14/17 15:59 Pantoprazole Sodium (Protonix Tab) 40 mg QAM PO 03/16/17 09:00 04/15/17 08:59 03/25/17 08:37 40 MG Ranitidine HCl (zANTac TAB) 300 mg HS PO 03/15/17 21:00 04/14/17 20:59 03/25/17 20:26 300 MG Polyethylene (Miralax Powder Packet) 17 gm DAILY PRN PO 03/15/17 15:00 04/14/17 14:59 Docusate Sodium (coLACE CAP) 100 mg BID PO 03/15/17 21:00 04/14/17 20:59 03/25/17 20:26 100 MG Bisacodyl (Dulcolax Supp) 10 mg DAILY PRN NC 03/15/17 15:00 04/14/17 14:59 Heparin Sodium (Porcine) (Heparin Sq 5000 Unit/0.5ml) 5,000 unit Q12 SQ 03/15/17 21:00 04/14/17 20:59 03/25/17 20:27 5,000 UNIT Desonide (Desowen 0.05% Crm) 1 appln BID EXT 03/15/17 21:00 04/14/17 20:59 03/25/17 20:24 1 APPLN Nystatin (Mycostatin Powder) 1 appln BID EXT 03/15/17 21:00 04/14/17 20:59 03/25/17 08:36 1 APPLN Calcium Carbonate (Tums Chew Tab) 2,000 mg QID PO 03/16/17 17:00 04/15/17 08:59 03/25/17 20:25 2,000 MG Potassium/ Phosphorus/Sodium (Phospha 250 Neutral 155-852-130 Mg) 1 tab QID PO 03/16/17 17:00 04/15/17 16:59 03/25/17 20:25 1 TAB Cholecalciferol (Vitamin D Tab) 5,000 inter.unit QAM PO 03/18/17 09:00 04/17/17 08:59 03/25/17 08:36 5,000 INTER.UNIT Calcitriol (Rocaltrol Cap) 1 mcg QAM PO 03/18/17 09:00 04/17/17 08:59 03/25/17 08:35 1 MCG Calcium Carbonate (oS-Randy 500 TAB) 1,250 mg QID PO 03/18/17 09:00 04/17/17 08:59 03/25/17 20:26 1,250 MG Trimethoprim/ Sulfamethoxazole (Septra Ds 800/ 160MG Tab) 1 tab DAILY PO 03/19/17 09:00 03/29/17 08:59 03/25/17 08:37 1 TAB Miscellaneous (Tap Water Enema) 1 ea Q2D PRN NC 03/18/17 13:30 04/17/17 13:29 Heparin Sodium (Porcine) (Heparin 10 Unit/ ml 5 ml Flush) 5 ml PRN PRN FLUSH 03/18/17 15:30 04/17/17 15:29 03/25/17 05:42 5 ML Calcium Gluconate 4000 mg/Sodium Chloride 540 ml @ 125 mls/hr Q4H20M IV 03/25/17 14:30 03/26/17 14:29 03/26/17 05:38 125 MLS/HR Impression (1) Hypocalcemia (2) Prostate cancer (3) Hypertension Mr. 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 He developed hypocalcemia following treatment with Denosumab. EKG documented new QTc prolongation. QTc has improved to 380. 25OH D deficiency documented. He has received ergocalciferol 07393 IU and is taking daily cholecalciferol. Calcitriol is being provided. Aggressive replacement with PO and IV calcium continues. The patient has associated hypomagnesemia. This is being treated with IV magnesium sulfate. Recommendations -- Total calcium is now up to 9.1 -- discontinue Ca gluconate IV and vit D, Vitamin D level is now acceptable at ~ 35 -- Continue oral Ca and Calcitriol --check calcium daily Will follow
[2017-03-26] MEDS ORDERED: MAGNESIUM SULFATE 1GM / D5W 1 GM in PREMIXED IN D5W 100 ML IV STA (14:41)
[2017-03-26 15:55] VITALS: BP 115/68; PULSE 83; TEMP 36.7; O2SAT 98
[2017-03-26 19:06] VITALS: BP 100/50; PULSE 77; TEMP 36.8; O2SAT 97
[2017-03-26] MEDS: TAMSULOSIN HCL 0.4 MG CAP PO SCH (22:18)
[2017-03-26] MEDS: RANITIDINE HCL 150 MG TAB PO SCH (22:19)
--- NOTE | 2017-03-26 22:58 | Family Medicine Progress Note ---
Progress Note Date of Service Mar 26, 2017. Subjective Pt evaluation today including: conversation w/ patient, physical exam, chart review, lab review, review of studies Pain: No pain reported this morning Voiding: no voiding problems, no incontinence Patient resting comfortably in bed this morning with no acute complaints overnight. The patient states he feels like he is at his baseline strength and denies any chest pain, fatigue, headache, fever, chills, palpitations, abdominal pain, tremors, nausea, vomiting. Constitutional: No fever, No chills, No sweats, No fatigue Eyes: No problem reported Respiratory: No cough, No sputum, No wheezing, No shortness of breath Cardiovascular: No chest pain, No palpitations Abdomen: No pain, No nausea, No vomiting, No diarrhea, No constipation Neurologic: No paralysis, No weakness, No numbness/tingling Endo: No fatigue Medications Current Inpatient Medications Medications (Trade) Dose Ordered Sig/Jonathan Route Start Time Stop Time Status Last Admin Dose Admin Acetaminophen (Tylenol Tab) 650 mg Q4H PRN PO 03/15/17 14:15 04/14/17 14:14 Tamsulosin HCl (Flomax Cap) 0.8 mg HS PO 03/15/17 21:00 04/14/17 20:59 03/26/17 22:18 0.8 MG Miscellaneous Information (Order Awaiting Action) 1 ea QS N/A 03/15/17 16:00 04/14/17 15:59 Pantoprazole Sodium (Protonix Tab) 40 mg QAM PO 03/16/17 09:00 04/15/17 08:59 03/26/17 08:37 40 MG Ranitidine HCl (zANTac TAB) 300 mg HS PO 03/15/17 21:00 04/14/17 20:59 03/26/17 22:19 300 MG Polyethylene (Miralax Powder Packet) 17 gm DAILY PRN PO 03/15/17 15:00 04/14/17 14:59 Docusate Sodium (coLACE CAP) 100 mg BID PO 03/15/17 21:00 04/14/17 20:59 03/26/17 22:19 100 MG Bisacodyl (Dulcolax Supp) 10 mg DAILY PRN [place] 03/15/17 15:00 04/14/17 14:59 Heparin Sodium (Porcine) (Heparin Sq 5000 Unit/0.5ml) 5,000 unit Q12 SQ 03/15/17 21:00 04/14/17 20:59 03/26/17 22:22 5,000 UNIT Desonide (Desowen 0.05% Crm) 1 appln BID EXT 03/15/17 21:00 04/14/17 20:59 03/26/17 22:20 1 APPLN Nystatin (Mycostatin Powder) 1 appln BID EXT 03/15/17 21:00 04/14/17 20:59 03/26/17 08:35 1 APPLN Calcium Carbonate (Tums Chew Tab) 2,000 mg QID PO 03/16/17 17:00 04/15/17 08:59 03/26/17 22:18 2,000 MG Potassium/ Phosphorus/Sodium (Phospha 250 Neutral 155-852-130 Mg) 1 tab QID PO 03/16/17 17:00 04/15/17 16:59 03/26/17 22:18 1 TAB Calcitriol (Rocaltrol Cap) 1 mcg QAM PO 03/18/17 09:00 04/17/17 08:59 03/26/17 08:38 1 MCG Calcium Carbonate (oS-Randy 500 TAB) 1,250 mg QID PO 03/18/17 09:00 04/17/17 08:59 03/26/17 22:19 1,250 MG Trimethoprim/ Sulfamethoxazole (Septra Ds 800/ 160MG Tab) 1 tab DAILY PO 03/19/17 09:00 03/29/17 08:59 03/26/17 08:36 1 TAB Miscellaneous (Tap Water Enema) 1 ea Q2D PRN [place] 03/18/17 13:30 04/17/17 13:29 Heparin Sodium (Porcine) (Heparin 10 Unit/ ml 5 ml Flush) 5 ml PRN PRN FLUSH 03/18/17 15:30 04/17/17 15:29 03/26/17 19:07 5 ML Objective Vital Signs Date Time Temp Pulse Resp B/P (MAP) Pulse Ox O2 Delivery O2 Flow Rate FiO2 03/26/17 19:06 36.8 77 16 100/50 (67) 97 03/26/17 16:30 Room Air 03/26/17 15:55 36.7 83 18 115/68 (84) 98 Room Air 03/26/17 11:58 36.8 80 18 119/60 (79) 95 Room Air 03/26/17 08:40 Room Air 03/26/17 08:08 36.9 88 20 121/74 (90) 97 Room Air 03/26/17 03:49 36.6 62 18 133/71 (91) 93 Room Air 03/26/17 00:00 Room Air Physical Exam General Appearance: WD/WN, no apparent distress Eyes: normal inspection, sclerae normal Neck: supple, no carotid bruits Respiratory/Chest: chest non-tender, lungs clear, normal breath sounds Cardiovascular: regular rate, rhythm, no edema, no gallop, no murmur Abdomen: normal bowel sounds, non tender, soft Extremities: non-tender, no pedal edema, no calf tenderness Neurologic/Psychiatric: alert, normal mood/affect, oriented x 3 Laboratory Results Results Past 24 Hours Test 03/26/17 05:16 03/26/17 09:25 03/26/17 10:13 03/26/17 18:24 Range/Units White Blood Count 5.10 4.8-10.8 K/uL Red Blood Count 3.38 4.7-6.1 M/uL Hemoglobin 9.6 14.0-18.0 g/dL Hematocrit 29.5 42-52 % Mean Corpuscular Volume 87.3 80-100 fL Mean Corpuscular Hemoglobin 28.4 25-34 pg Mean Corpuscular Hemoglobin Concent 32.5 32-36 g/dl RDW Standard Deviation 56.2 36.4-46.3 fL RDW Coefficient of Variation 17.7 11.5-14.5 % Platelet Count 162 130-400 K/uL Mean Platelet Volume 8.0 7.4-10.4 fL Sodium Level 140 136-145 mmol/L Potassium Level 4.9 3.5-5.1 mmol/L Chloride Level 110 98-107 mmol/L Carbon Dioxide Level 21 21-32 mmol/L Anion Gap 9.0 3-11 mmol/L Blood Urea Nitrogen 6 7-18 mg/dl Creatinine 1.20 0.60-1.40 mg/dl Est Creatinine Clear Calc Drug Dose 40.6 ml/min Estimated GFR () 64.4 Estimated GFR (Non- 55.6 BUN/Creatinine Ratio 5.3 10-20 Random Glucose 75 70-99 mg/dl Calcium Level 8.0 7.5 8.5-10.1 mg/dl Magnesium Level 1.7 1.8-2.4 mg/dl Albumin 2.6 3.4-5.0 gm/dl Ionized Calcium 1.20 1.12-1.32 mmol/l Assessment and Plan Mr. Greene is an 81 year old man with a history of prostate cancer and osteoblastic mets that presented with fatigue and found to have severe hypocalcemia thought secondary to his Denosumab (03/02/2017). Hypocalcemia/hypophosphatemia - Secondary to Denosumab injection in the setting of metastatic prostate CA - Calcium improved to 9.1 (corrected) this morning --> Goal is maintaining Ca > 8.0 or ionized >1 - Discontinue Calcium Gluconate IV - Continue oral Calcium and Calcitriol - Continue to monitor Calcium levels daily - Vitamin D level now wnl and can discontinue Vitamin D supplementation - appreciate rec from nephro Hypomagnesemia - Magnesium 1.7 - Mag Sulfate 1gm IV - Repeat Mag tomorrow morning UTI; stenotrophomona and enterococcus; chronic bey - Bactrim/ Amoxil day 09/21 --> Initially treated with Rocephin on admission Superficial thrombophlebitis of right arm; improved since admission - Ultrasound confirmation of superficial thrombus involving the cephalic vein - Avoid IV line in right UE - Warm compress Prostate Ca with mets to bone - Continue tamsulosin, finasteride Intertrigo/thrush - Nystatin swish and swallow, nystatin powder for groin Seborrheic dermatitis - Desonide for face BID - 12/14 days CKD III stable - Avoid nephrotoxins where possible - Monitor with daily BMP DVT Prophylaxis - Heparin subq bid Code Status - DNR Resident Tracking Resident Involvement: Resident Care Provided Care Provided: Adult Hospital Medicine
[2017-03-27 01:26] VITALS: BP 101/51; PULSE 77; TEMP 36.7; O2SAT 95
[2017-03-27 04:00] VITALS: BP 102/60; PULSE 71; TEMP 36.9; O2SAT 96
[2017-03-27 05:01] VITALS: BP 135/74; PULSE 59; O2SAT 98
[2017-03-27 06:54] LABS: CALCIUM 6.5 mg/dl (8.5-10.1); CREATININE 1.25 mg/dl (0.60-1.40); POTASSIUM 4.6 mmol/L (3.5-5.1)
[2017-03-27 07:23] VITALS: BP 110/69; PULSE 75; TEMP 36.6; O2SAT 97
[2017-03-27] MEDS: CALCIUM CARBONATE 1250MG TAB PO SCH ×4 (07:56→20:16)
[2017-03-27] MEDS: NYSTATIN POWDER 15GM BTL EXT SCH ×2 (07:56→20:36)
[2017-03-27] MEDS: DESONIDE CR 15 GM TUBE EXT SCH ×2 (07:56→20:36)
[2017-03-27] MEDS: CALCITRIOL 0.25 MCG CAP PO SCH (07:56)
[2017-03-27] MEDS: DOCUSATE SODIUM 100 MG CAP PO SCH ×2 (07:57→20:16)
[2017-03-27] MEDS: SULFAMETHOXAZOLE/TRIMETHOPRIM DS 800/160MG TAB PO SCH (07:57)
[2017-03-27] MEDS: PANTOprazole SOD 40 MG TAB PO SCH (07:58)
[2017-03-27] MEDS: POT PHOSPHATE MONOBASIC W/ SOD TAB PO SCH ×4 (07:58→20:18)
[2017-03-27] MEDS: CALCIUM CARBONATE 500 MG CHEWABLE PO SCH ×4 (07:58→20:18)
[2017-03-27] MEDS: HEPARIN SOD 5000 UNIT/0.5 ML CARP SQ SCH ×2 (08:06→20:21)
[2017-03-27 08:48] LABS: ALBUMIN 2.6 gm/dl (3.4-5.0)
[2017-03-27] MEDS: CALCIUM GLUCONATE IV SCH ×4 (09:18→21:40)
[2017-03-27] MEDS: SODIUM CHLORIDE 0.9% IV SCH ×4 (09:18→21:40)
--- NOTE | 2017-03-27 10:17 | Nephrology Progress Note ---
Nephrology Progress Note Date of Service Mar 27, 2017. Chief Complaint Follow-up for hypocalcemia Subjective David was seen and examined in his room this morning. He has been otherwise feeling better although appetite is not that great. Denies any shortness of breath or chest pain. Calcium dropped again to corrected calcium 7.5 after IV calcium gluconate was discontinued. Review of Systems A complete review of systems was performed. Pertinent positives are noted above. All other systems are negative. Vital Signs Last 8 Hrs Date Time Temp Pulse Resp B/P (MAP) Pulse Ox O2 Delivery O2 Flow Rate FiO2 03/27/17 08:00 Room Air 03/27/17 07:23 36.6 75 18 110/69 (83) 97 Room Air 03/27/17 04:00 36.9 71 18 102/60 (74) 96 Room Air 03/27/17 01:26 36.7 77 20 101/51 (68) 95 Room Air Last Recorded Weight Weight (Kilograms): 63.100 Physical Exam GENERAL: elderly male , AAA x 3, pleasant, healthy-appearing, not in any distress. NECK: Supple, no JVD. RESPIRATORY: Normal breathing efforts, no accessory muscle use, clear to auscultation bilaterally, no wheezes or rales. CARDIOVASCULAR: S1, S2 normal, rate rhythm regular. EXTREMITY: No lower extremity edema NEURO: speech fluent. 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 03/27/17 05:34 Test 03/26/17 09:25 03/26/17 10:13 03/26/17 18:24 03/27/17 05:34 Magnesium Level 1.7 mg/dl (1.8-2.4) 1.8 mg/dl (1.8-2.4) Albumin 2.6 gm/dl (3.4-5.0) Ionized Calcium 1.20 mmol/l (1.12-1.32) Calcium Level 7.5 mg/dl (8.5-10.1) 6.5 mg/dl (8.5-10.1) Anion Gap 7.0 mmol/L (3-11) Est Creatinine Clear Calc Drug Dose 39.0 ml/min Estimated GFR () 61.3 Estimated GFR (Non- 52.9 BUN/Creatinine Ratio 5.2 (10-20) Allergies Coded Allergies: No Known Allergies (Unverified , 03/15/17) Medications Current Inpatient Medications Medications (Trade) Dose Ordered Sig/Jonathan Route Start Time Stop Time Status Last Admin Dose Admin Acetaminophen (Tylenol Tab) 650 mg Q4H PRN PO 03/15/17 14:15 04/14/17 14:14 Tamsulosin HCl (Flomax Cap) 0.8 mg HS PO 03/15/17 21:00 04/14/17 20:59 03/26/17 22:18 0.8 MG Miscellaneous Information (Order Awaiting Action) 1 ea QS N/A 03/15/17 16:00 04/14/17 15:59 Pantoprazole Sodium (Protonix Tab) 40 mg QAM PO 03/16/17 09:00 04/15/17 08:59 03/27/17 07:58 40 MG Ranitidine HCl (zANTac TAB) 300 mg HS PO 03/15/17 21:00 04/14/17 20:59 03/26/17 22:19 300 MG Polyethylene (Miralax Powder Packet) 17 gm DAILY PRN PO 03/15/17 15:00 04/14/17 14:59 Docusate Sodium (coLACE CAP) 100 mg BID PO 03/15/17 21:00 04/14/17 20:59 03/27/17 07:57 100 MG Bisacodyl (Dulcolax Supp) 10 mg DAILY PRN [place] 03/15/17 15:00 04/14/17 14:59 Heparin Sodium (Porcine) (Heparin Sq 5000 Unit/0.5ml) 5,000 unit Q12 SQ 03/15/17 21:00 04/14/17 20:59 03/27/17 08:06 5,000 UNIT Desonide (Desowen 0.05% Crm) 1 appln BID EXT 03/15/17 21:00 04/14/17 20:59 03/27/17 07:56 1 APPLN Nystatin (Mycostatin Powder) 1 appln BID EXT 03/15/17 21:00 04/14/17 20:59 03/27/17 07:56 1 APPLN Calcium Carbonate (Tums Chew Tab) 2,000 mg QID PO 03/16/17 17:00 04/15/17 08:59 03/27/17 07:58 2,000 MG Potassium/ Phosphorus/Sodium (Phospha 250 Neutral 155-852-130 Mg) 1 tab QID PO 03/16/17 17:00 04/15/17 16:59 03/27/17 07:58 1 TAB Calcitriol (Rocaltrol Cap) 1 mcg QAM PO 03/18/17 09:00 04/17/17 08:59 03/27/17 07:56 1 MCG Calcium Carbonate (oS-Randy 500 TAB) 1,250 mg QID PO 03/18/17 09:00 04/17/17 08:59 03/27/17 07:56 1,250 MG Trimethoprim/ Sulfamethoxazole (Septra Ds 800/ 160MG Tab) 1 tab DAILY PO 03/19/17 09:00 03/29/17 08:59 03/27/17 07:57 1 TAB Miscellaneous (Tap Water Enema) 1 ea Q2D PRN [place] 03/18/17 13:30 04/17/17 13:29 Heparin Sodium (Porcine) (Heparin 10 Unit/ ml 5 ml Flush) 5 ml PRN PRN FLUSH 03/18/17 15:30 04/17/17 15:29 03/27/17 05:34 5 ML Impression (1) Hypocalcemia (2) Prostate cancer (3) Hypertension Mr. 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 He developed hypocalcemia following treatment with Denosumab. EKG documented new QTc prolongation. QTc has improved to 380. 25OH D deficiency documented. He has received ergocalciferol 84281 IU and is taking daily cholecalciferol. Calcitriol is being provided. Aggressive replacement with PO and IV calcium continues. The patient has associated hypomagnesemia. This is being treated with IV magnesium sulfate. Recommendations --resume Ca gluconate IV at 0.5 gm/hour,Vitamin D level is now acceptable at ~ 35 -- Continue oral Ca and increase Calcitriol to 2 mcg daily --check calcium daily Will follow
[2017-03-27 14:28] VITALS: BP 108/62; PULSE 74; TEMP 36.7; O2SAT 98
[2017-03-27 19:18] VITALS: BP 127/64; PULSE 82; TEMP 36.8; O2SAT 97
[2017-03-27] MEDS: RANITIDINE HCL 150 MG TAB PO SCH (20:17)
[2017-03-27] MEDS: TAMSULOSIN HCL 0.4 MG CAP PO SCH (20:18)
--- NOTE | 2017-03-27 22:45 | Family Medicine Progress Note ---
Progress Note Date of Service Mar 27, 2017. Subjective Pt evaluation today including: conversation w/ patient, physical exam, chart review, lab review, review of studies Pain: No acute complaints today Voiding: no voiding problems, no incontinence Patient resting comfortably in bed this morning with no acute complaints overnight. Denies any muscle pain, shortness of breath, chest pain, weakness, fever, chills, sweats, or any other acute complaints Additional Comments: See HPI for pertinent positives and negatives. A total of ten systems were reviewed and were otherwise negative. Medications Current Inpatient Medications Medications (Trade) Dose Ordered Sig/Jonathan Route Start Time Stop Time Status Last Admin Dose Admin Acetaminophen (Tylenol Tab) 650 mg Q4H PRN PO 03/15/17 14:15 04/14/17 14:14 Tamsulosin HCl (Flomax Cap) 0.8 mg HS PO 03/15/17 21:00 04/14/17 20:59 03/27/17 20:18 0.8 MG Miscellaneous Information (Order Awaiting Action) 1 ea QS N/A 03/15/17 16:00 04/14/17 15:59 Pantoprazole Sodium (Protonix Tab) 40 mg QAM PO 03/16/17 09:00 04/15/17 08:59 03/27/17 07:58 40 MG Ranitidine HCl (zANTac TAB) 300 mg HS PO 03/15/17 21:00 04/14/17 20:59 03/27/17 20:17 300 MG Polyethylene (Miralax Powder Packet) 17 gm DAILY PRN PO 03/15/17 15:00 04/14/17 14:59 Docusate Sodium (coLACE CAP) 100 mg BID PO 03/15/17 21:00 04/14/17 20:59 03/27/17 20:16 100 MG Bisacodyl (Dulcolax Supp) 10 mg DAILY PRN [place] 03/15/17 15:00 04/14/17 14:59 Heparin Sodium (Porcine) (Heparin Sq 5000 Unit/0.5ml) 5,000 unit Q12 SQ 03/15/17 21:00 04/14/17 20:59 03/27/17 20:21 5,000 UNIT Desonide (Desowen 0.05% Crm) 1 appln BID EXT 03/15/17 21:00 04/14/17 20:59 2/13/18 20:36 1 APPLN Nystatin (Mycostatin Powder) 1 appln BID EXT 03/15/17 21:00 04/14/17 20:59 03/27/17 20:36 1 APPLN Calcium Carbonate (Tums Chew Tab) 2,000 mg QID PO 03/16/17 17:00 04/15/17 08:59 03/27/17 20:18 2,000 MG Potassium/ Phosphorus/Sodium (Phospha 250 Neutral 155-852-130 Mg) 1 tab QID PO 03/16/17 17:00 04/15/17 16:59 03/27/17 20:18 1 TAB Calcium Carbonate (oS-Randy 500 TAB) 1,250 mg QID PO 03/18/17 09:00 04/17/17 08:59 03/27/17 20:16 1,250 MG Trimethoprim/ Sulfamethoxazole (Septra Ds 800/ 160MG Tab) 1 tab DAILY PO 03/19/17 09:00 03/29/17 08:59 03/27/17 07:57 1 TAB Miscellaneous (Tap Water Enema) 1 ea Q2D PRN [place] 03/18/17 13:30 04/17/17 13:29 Heparin Sodium (Porcine) (Heparin 10 Unit/ ml 5 ml Flush) 5 ml PRN PRN FLUSH 03/18/17 15:30 04/17/17 15:29 03/27/17 05:34 5 ML Calcitriol (Rocaltrol Cap) 2 mcg QAM PO 03/28/17 08:00 04/17/17 08:59 Calcium Gluconate 2000 mg/Sodium Chloride 520 ml @ 125 mls/hr Q4H10M IV 03/27/17 09:00 04/26/17 08:59 03/27/17 21:40 125 MLS/HR Objective Vital Signs Date Time Temp Pulse Resp B/P (MAP) Pulse Ox O2 Delivery O2 Flow Rate FiO2 03/27/17 19:18 36.8 82 18 127/64 (85) 97 Room Air 03/27/17 15:02 Room Air 03/27/17 14:28 36.7 74 20 108/62 (77) 98 03/27/17 08:00 Room Air 03/27/17 07:23 36.6 75 18 110/69 (83) 97 Room Air 03/27/17 04:00 36.9 71 18 102/60 (74) 96 Room Air 03/27/17 01:26 36.7 77 20 101/51 (68) 95 Room Air 03/26/17 23:25 Room Air Physical Exam General Appearance: WD/WN, no apparent distress Eyes: normal inspection, sclerae normal Neck: supple, no carotid bruits Respiratory/Chest: chest non-tender, lungs clear, normal breath sounds Cardiovascular: regular rate, rhythm, no edema, no gallop Abdomen: normal bowel sounds, non tender, soft Neurologic/Psychiatric: alert, normal mood/affect, oriented x 3 Laboratory Results Results Past 24 Hours Test 03/27/17 05:34 Range/Units Sodium Level 141 136-145 mmol/L Potassium Level 4.6 3.5-5.1 mmol/L Chloride Level 111 98-107 mmol/L Carbon Dioxide Level 23 21-32 mmol/L Anion Gap 7.0 3-11 mmol/L Blood Urea Nitrogen 7 7-18 mg/dl Creatinine 1.25 0.60-1.40 mg/dl Est Creatinine Clear Calc Drug Dose 39.0 ml/min Estimated GFR () 61.3 Estimated GFR (Non- 52.9 BUN/Creatinine Ratio 5.2 10-20 Random Glucose 78 70-99 mg/dl Calcium Level 6.5 8.5-10.1 mg/dl Phosphorus Level 2.0 2.5-4.9 mg/dl Magnesium Level 1.8 1.8-2.4 mg/dl Albumin 2.6 3.4-5.0 gm/dl Assessment and Plan Mr. Greene is an 81 year old man with a history of prostate cancer and osteoblastic mets that presented with fatigue and found to have severe hypocalcemia thought secondary to his Denosumab (03/02/2017). Hypocalcemia/hypophosphatemia - Secondary to Denosumab injection in the setting of metastatic prostate CA - Calcium decreased to 6.5 this am --> Goal is maintaining Ca > 8.0 or ionized > 1 - As per nephrology --> Resume Ca gluconate IV at 0.5 gm/hour - Continue oral Calcium and Calcitriol - Continue to monitor Calcium levels daily - Vitamin D level now wnl and can discontinue Vitamin D supplementation Hypomagnesemia - Magnesium 1.8 today UTI; stenotrophomona and enterococcus; chronic bey - Bactrim/ Amoxil day 10/22 --> Initially treated with Rocephin on admission Superficial thrombophlebitis of right arm; improved since admission - Ultrasound confirmation of superficial thrombus involving the cephalic vein - Avoid IV line in right UE - Warm compress Prostate Ca with mets to bone - Continue tamsulosin, finasteride Intertrigo/thrush - Nystatin swish and swallow, nystatin powder for groin Seborrheic dermatitis - Desonide for face BID - 13/14 days CKD III stable - Avoid nephrotoxins where possible - Monitor with daily BMP DVT Prophylaxis - Heparin subq bid Code Status - DNR Resident Tracking Resident Involvement: Resident Care Provided Care Provided: Adult Hospital Medicine
[2017-03-28] VITALS (7 sets, daily range): BP systolic 104–135; BP diastolic 60–74; PULSE 74–84; TEMP 36.6–36.9; O2SAT 95–99
[2017-03-28] MEDS: SODIUM CHLORIDE 0.9% IV SCH ×4 (01:34→20:25)
[2017-03-28] MEDS: CALCIUM GLUCONATE IV SCH ×4 (01:34→20:25)
[2017-03-28 06:56] LABS: CALCIUM 7.3 mg/dl (8.5-10.1); CREATININE 1.22 mg/dl (0.60-1.40); POTASSIUM 4.8 mmol/L (3.5-5.1)
[2017-03-28] MEDS: CALCITRIOL 0.25 MCG CAP PO SCH (07:45)
[2017-03-28] MEDS: DOCUSATE SODIUM 100 MG CAP PO SCH ×2 (07:46→20:30)
[2017-03-28] MEDS: PANTOprazole SOD 40 MG TAB PO SCH (07:46)
[2017-03-28] MEDS: POT PHOSPHATE MONOBASIC W/ SOD TAB PO SCH ×4 (07:46→20:29)
[2017-03-28] MEDS: CALCIUM CARBONATE 1250MG TAB PO SCH ×4 (07:46→20:29)
[2017-03-28] MEDS: CALCIUM CARBONATE 500 MG CHEWABLE PO SCH ×4 (07:46→20:29)
[2017-03-28] MEDS: NYSTATIN POWDER 15GM BTL EXT SCH ×2 (07:47→20:31)
[2017-03-28] MEDS: DESONIDE CR 15 GM TUBE EXT SCH ×2 (07:47→20:31)
[2017-03-28] MEDS: SULFAMETHOXAZOLE/TRIMETHOPRIM DS 800/160MG TAB PO SCH (07:48)
[2017-03-28] MEDS: HEPARIN SOD 5000 UNIT/0.5 ML CARP SQ SCH ×2 (07:49→20:27)
[2017-03-28 10:14] LABS: ALBUMIN 2.9 gm/dl (3.4-5.0)
--- NOTE | 2017-03-28 11:58 | Nephrology Progress Note ---
Nephrology Progress Note Date of Service Mar 28, 2017. Chief Complaint Follow-up for hypocalcemia Subjective David was seen and examined in his room this morning. He has been otherwise feeling better although appetite still not that great. Denies any shortness of breath or chest pain. Calcium slightly improved on IV calcium gluconate. Review of Systems A complete review of systems was performed. Pertinent positives are noted above. All other systems are negative. Vital Signs Last 8 Hrs Date Time Temp Pulse Resp B/P (MAP) Pulse Ox O2 Delivery O2 Flow Rate FiO2 03/28/17 08:08 Room Air 03/28/17 07:44 36.9 78 20 119/72 (88) 96 Room Air 03/28/17 04:03 36.7 80 18 115/74 (88) 97 Room Air Last Recorded Weight Weight (Kilograms): 64.500 Physical Exam GENERAL: elderly male , AAA x 3, pleasant, healthy-appearing, not in any distress. NECK: Supple, no JVD. RESPIRATORY: Normal breathing efforts, no accessory muscle use, clear to auscultation bilaterally, no wheezes or rales. CARDIOVASCULAR: S1, S2 normal, rate rhythm regular. EXTREMITY: No lower extremity edema NEURO: speech fluent. 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 03/28/17 05:56 Test 03/28/17 05:56 03/28/17 08:34 Anion Gap 7.0 mmol/L (3-11) Est Creatinine Clear Calc Drug Dose 39.9 ml/min Estimated GFR () 63.2 Estimated GFR (Non- 54.5 BUN/Creatinine Ratio 5.0 (10-20) Calcium Level 7.3 mg/dl (8.5-10.1) Allergies Coded Allergies: No Known Allergies (Unverified , 03/15/17) Medications Current Inpatient Medications Medications (Trade) Dose Ordered Sig/Jonathan Route Start Time Stop Time Status Last Admin Dose Admin Acetaminophen (Tylenol Tab) 650 mg Q4H PRN PO 03/15/17 14:15 04/14/17 14:14 Tamsulosin HCl (Flomax Cap) 0.8 mg HS PO 03/15/17 21:00 04/14/17 20:59 03/27/17 20:18 0.8 MG Miscellaneous Information (Order Awaiting Action) 1 ea QS N/A 03/15/17 16:00 04/14/17 15:59 Pantoprazole Sodium (Protonix Tab) 40 mg QAM PO 03/16/17 09:00 04/15/17 08:59 03/28/17 07:46 40 MG Ranitidine HCl (zANTac TAB) 300 mg HS PO 03/15/17 21:00 04/14/17 20:59 03/27/17 20:17 300 MG Polyethylene (Miralax Powder Packet) 17 gm DAILY PRN PO 03/15/17 15:00 04/14/17 14:59 Docusate Sodium (coLACE CAP) 100 mg BID PO 03/15/17 21:00 04/14/17 20:59 03/28/17 07:46 100 MG Bisacodyl (Dulcolax Supp) 10 mg DAILY PRN [place] 03/15/17 15:00 04/14/17 14:59 Heparin Sodium (Porcine) (Heparin Sq 5000 Unit/0.5ml) 5,000 unit Q12 SQ 03/15/17 21:00 04/14/17 20:59 03/28/17 07:49 5,000 UNIT Desonide (Desowen 0.05% Crm) 1 appln BID EXT 03/15/17 21:00 04/14/17 20:59 03/28/17 07:47 1 APPLN Nystatin (Mycostatin Powder) 1 appln BID EXT 03/15/17 21:00 04/14/17 20:59 03/28/17 07:47 1 APPLN Calcium Carbonate (Tums Chew Tab) 2,000 mg QID PO 03/16/17 17:00 04/15/17 08:59 03/28/17 07:46 2,000 MG Potassium/ Phosphorus/Sodium (Phospha 250 Neutral 155-852-130 Mg) 1 tab QID PO 03/16/17 17:00 04/15/17 16:59 03/28/17 07:46 1 TAB Calcium Carbonate (oS-Randy 500 TAB) 1,250 mg QID PO 03/18/17 09:00 04/17/17 08:59 03/28/17 07:46 1,250 MG Trimethoprim/ Sulfamethoxazole (Septra Ds 800/ 160MG Tab) 1 tab DAILY PO 03/19/17 09:00 03/29/17 08:59 03/28/17 07:48 1 TAB Miscellaneous (Tap Water Enema) 1 ea Q2D PRN [place] 03/18/17 13:30 04/17/17 13:29 Heparin Sodium (Porcine) (Heparin 10 Unit/ ml 5 ml Flush) 5 ml PRN PRN FLUSH 03/18/17 15:30 04/17/17 15:29 03/27/17 05:34 5 ML Calcitriol (Rocaltrol Cap) 2 mcg QAM PO 03/28/17 08:00 04/17/17 08:59 03/28/17 07:45 2 MCG Calcium Gluconate 53117 mg/Sodium Chloride 600 ml @ 60 mls/hr Q10H IV 03/28/17 09:00 04/27/17 08:59 Impression (1) Hypocalcemia (2) Prostate cancer (3) Hypertension Mr. 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 He developed hypocalcemia following treatment with Denosumab. EKG documented new QTc prolongation. QTc has improved to 380. 25OH D deficiency documented. He has received ergocalciferol 18072 IU and is taking daily cholecalciferol. Calcitriol is being provided. Aggressive replacement with PO and IV calcium continues. The patient has associated hypomagnesemia. This is being treated with IV magnesium sulfate. Recommendations --increase Ca gluconate IV to 1 gm/hour -- Continue oral Ca and Calcitriol to 2 mcg daily --check calcium daily --wait on discharge until ca stabilizes off of IV ca gluconate Will follow
[2017-03-28] MEDS: TAMSULOSIN HCL 0.4 MG CAP PO SCH (20:28)
[2017-03-28] MEDS: RANITIDINE HCL 150 MG TAB PO SCH (20:30)
--- NOTE | 2017-03-28 21:13 | Family Medicine Progress Note ---
Progress Note Date of Service Mar 28, 2017. Subjective Pt evaluation today including: conversation w/ patient, physical exam, chart review, lab review, review of studies Pain: No pain reported Voiding: no voiding problems, no incontinence Patient is resting comfortably in bed this morning with no acute complaints overnight. The patient denies any muscle aches, abdominal pain, chest discomfort , weakness, tremor, or any other acute complaints Additional Comments: See HPI for pertinent positives and negatives. A total of ten systems were reviewed and were otherwise negative. Medications Current Inpatient Medications Medications (Trade) Dose Ordered Sig/Jonathan Route Start Time Stop Time Status Last Admin Dose Admin Acetaminophen (Tylenol Tab) 650 mg Q4H PRN PO 03/15/17 14:15 04/14/17 14:14 Tamsulosin HCl (Flomax Cap) 0.8 mg HS PO 03/15/17 21:00 04/14/17 20:59 03/28/17 20:28 0.8 MG Miscellaneous Information (Order Awaiting Action) 1 ea QS N/A 03/15/17 16:00 04/14/17 15:59 Pantoprazole Sodium (Protonix Tab) 40 mg QAM PO 03/16/17 09:00 04/15/17 08:59 03/28/17 07:46 40 MG Ranitidine HCl (zANTac TAB) 300 mg HS PO 03/15/17 21:00 04/14/17 20:59 03/28/17 20:30 300 MG Polyethylene (Miralax Powder Packet) 17 gm DAILY PRN PO 03/15/17 15:00 04/14/17 14:59 Docusate Sodium (coLACE CAP) 100 mg BID PO 03/15/17 21:00 04/14/17 20:59 03/28/17 20:30 100 MG Bisacodyl (Dulcolax Supp) 10 mg DAILY PRN [place] 03/15/17 15:00 04/14/17 14:59 Heparin Sodium (Porcine) (Heparin Sq 5000 Unit/0.5ml) 5,000 unit Q12 SQ 03/15/17 21:00 04/14/17 20:59 03/28/17 20:27 5,000 UNIT Desonide (Desowen 0.05% Crm) 1 appln BID EXT 03/15/17 21:00 04/14/17 20:59 03/28/17 20:31 1 APPLN Nystatin (Mycostatin Powder) 1 appln BID EXT 03/15/17 21:00 04/14/17 20:59 03/28/17 20:31 1 APPLN Calcium Carbonate (Tums Chew Tab) 2,000 mg QID PO 03/16/17 17:00 04/15/17 08:59 03/28/17 20:29 2,000 MG Potassium/ Phosphorus/Sodium (Phospha 250 Neutral 155-852-130 Mg) 1 tab QID PO 03/16/17 17:00 04/15/17 16:59 03/28/17 20:29 1 TAB Calcium Carbonate (oS-Randy 500 TAB) 1,250 mg QID PO 03/18/17 09:00 04/17/17 08:59 03/28/17 20:29 1,250 MG Trimethoprim/ Sulfamethoxazole (Septra Ds 800/ 160MG Tab) 1 tab DAILY PO 03/19/17 09:00 03/29/17 08:59 03/28/17 07:48 1 TAB Miscellaneous (Tap Water Enema) 1 ea Q2D PRN [place] 03/18/17 13:30 04/17/17 13:29 Heparin Sodium (Porcine) (Heparin 10 Unit/ ml 5 ml Flush) 5 ml PRN PRN FLUSH 03/18/17 15:30 04/17/17 15:29 03/27/17 05:34 5 ML Calcitriol (Rocaltrol Cap) 2 mcg QAM PO 03/28/17 08:00 04/17/17 08:59 03/28/17 07:45 2 MCG Calcium Gluconate 10370 mg/Sodium Chloride 600 ml @ 60 mls/hr Q10H IV 03/28/17 09:00 04/27/17 08:59 03/28/17 20:25 60 MLS/HR Objective Vital Signs Date Time Temp Pulse Resp B/P (MAP) Pulse Ox O2 Delivery O2 Flow Rate FiO2 03/28/17 19:35 36.6 82 18 115/63 (80) 97 Room Air 03/28/17 16:00 Room Air 03/28/17 15:00 36.6 75 16 134/70 (91) 99 Room Air 03/28/17 11:41 36.8 77 18 104/60 (75) 97 Room Air 03/28/17 08:45 Room Air 03/28/17 08:08 Room Air 03/28/17 07:44 36.9 78 20 119/72 (88) 96 Room Air 03/28/17 04:03 36.7 80 18 115/74 (88) 97 Room Air 03/28/17 00:33 36.9 84 20 118/69 (85) 95 Room Air 03/28/17 00:00 Room Air Physical Exam General Appearance: WD/WN, no apparent distress Eyes: normal inspection, sclerae normal Neck: supple, trachea midline Respiratory/Chest: chest non-tender, lungs clear, normal breath sounds Cardiovascular: regular rate, rhythm, no edema, no gallop Abdomen: normal bowel sounds, non tender, soft Extremities: no pedal edema, no calf tenderness Neurologic/Psychiatric: alert, normal mood/affect, oriented x 3 Laboratory Results Results Past 24 Hours Test 03/28/17 05:56 03/28/17 09:15 Range/Units Sodium Level 141 136-145 mmol/L Potassium Level 4.8 3.5-5.1 mmol/L Chloride Level 112 98-107 mmol/L Carbon Dioxide Level 22 21-32 mmol/L Anion Gap 7.0 3-11 mmol/L Blood Urea Nitrogen 6 7-18 mg/dl Creatinine 1.22 0.60-1.40 mg/dl Est Creatinine Clear Calc Drug Dose 39.9 ml/min Estimated GFR () 63.2 Estimated GFR (Non- 54.5 BUN/Creatinine Ratio 5.0 10-20 Random Glucose 78 70-99 mg/dl Calcium Level 7.3 8.5-10.1 mg/dl Ionized Calcium 1.03 1.12-1.32 mmol/l Magnesium Level 1.8 1.8-2.4 mg/dl Albumin 2.9 3.4-5.0 gm/dl Assessment and Plan Mr. Greene is an 81 year old man with a history of prostate cancer and osteoblastic mets that presented with fatigue and found to have severe hypocalcemia thought secondary to his Denosumab (03/02/2017). Hypocalcemia/hypophosphatemia - Secondary to Denosumab injection in the setting of metastatic prostate CA - Calcium decreased to 7.3 this am (Corrected 8.2) --> Goal is maintaining Ca > 8.0 or ionized >1 - As per nephrology --> Ca gluconate IV at 2g IV q10h - Continue oral Calcium and Calcitriol --> Calcitriol increased to 2 mcg PO QAM - Continue to monitor Calcium levels daily - Vitamin D level now wnl and can discontinue Vitamin D supplementation Hypomagnesemia - Magnesium 1.8 today UTI; stenotrophomona and enterococcus; chronic bey - Bactrim/ Amoxil day 11/21 --> Initially treated with Rocephin on admission Superficial thrombophlebitis of right arm; improved since admission - Ultrasound confirmation of superficial thrombus involving the cephalic vein - Avoid IV line in right UE - Warm compress Prostate Ca with mets to bone - Continue tamsulosin, finasteride Intertrigo/thrush - Nystatin swish and swallow, nystatin powder for groin Seborrheic dermatitis - Desonide for face BID - 14/14 days CKD III stable - Avoid nephrotoxins where possible - Monitor with daily BMP DVT Prophylaxis - Heparin subq bid Code Status - DNR Resident Tracking Resident Involvement: Resident Care Provided Care Provided: Adult Hospital Medicine
[2017-03-29 05:02] VITALS: BP 121/65; PULSE 74; TEMP 36.8; O2SAT 97
[2017-03-29] MEDS: SODIUM CHLORIDE 0.9% IV SCH ×2 (06:16→18:04)
[2017-03-29] MEDS: CALCIUM GLUCONATE IV SCH ×2 (06:16→18:04)
[2017-03-29 06:37] LABS: CREATININE 1.25 mg/dl (0.60-1.40)
[2017-03-29 06:38] LABS: ALBUMIN 2.7 gm/dl (3.4-5.0); CALCIUM 8.4 mg/dl (8.5-10.1); PHOSPHORUS 1.9 mg/dl (2.5-4.9)
[2017-03-29 07:24] VITALS: BP 117/58; PULSE 66; TEMP 36.8; O2SAT 97
[2017-03-29] MEDS: CALCITRIOL 0.25 MCG CAP PO SCH (08:15)
[2017-03-29] MEDS: CALCIUM CARBONATE 1250MG TAB PO SCH ×4 (08:16→20:14)
[2017-03-29] MEDS: PANTOprazole SOD 40 MG TAB PO SCH (08:16)
[2017-03-29] MEDS: POT PHOSPHATE MONOBASIC W/ SOD TAB PO SCH ×4 (08:16→20:15)
[2017-03-29] MEDS: DOCUSATE SODIUM 100 MG CAP PO SCH ×2 (08:16→20:14)
[2017-03-29] MEDS: CALCIUM CARBONATE 500 MG CHEWABLE PO SCH ×4 (08:16→20:15)
[2017-03-29] MEDS: SULFAMETHOXAZOLE/TRIMETHOPRIM DS 800/160MG TAB PO SCH (08:16)
[2017-03-29] MEDS: DESONIDE CR 15 GM TUBE EXT SCH (08:17)
[2017-03-29] MEDS: NYSTATIN POWDER 15GM BTL EXT SCH ×2 (08:17→20:19)
[2017-03-29] MEDS: HEPARIN SOD 5000 UNIT/0.5 ML CARP SQ SCH ×2 (08:28→20:18)
[2017-03-29] MEDS ORDERED: POTASSIUM PHOS 3 MMOL/1 ML INFUSION IV STA (10:06)
[2017-03-29] MEDS ORDERED: POTASSIUM PHOSPHATE INJ 30 MMOL in SODIUM CHLORIDE 0.9% 500ML 500 ML IV SCH (11:00)
[2017-03-29 11:46] VITALS: BP 114/65; PULSE 90; TEMP 36.7; O2SAT 98
--- NOTE | 2017-03-29 12:06 | Nephrology Progress Note ---
Nephrology Progress Note Date of Service Mar 29, 2017. Chief Complaint Follow-up for hypocalcemia Subjective Bill was seen and examined. Has been otherwise feeling fine, p.o. intake adequate. Ca improved to 9.0 with IV calcium gluconate and high dose of calcitriol and calcium. Blood pressure stable. Review of Systems A complete review of systems was performed. Pertinent positives are noted above. All other systems are negative. Vital Signs Last 8 Hrs Date Time Temp Pulse Resp B/P (MAP) Pulse Ox O2 Delivery O2 Flow Rate FiO2 03/29/17 07:24 36.8 66 16 117/58 (77) 97 Room Air 03/29/17 05:02 36.8 74 20 121/65 (83) 97 Room Air Last Recorded Weight Weight (Kilograms): 63.700 Physical Exam GENERAL: elderly male, AAA x 3, pleasant, healthy-appearing, not in any distress. NECK: Supple, no JVD. RESPIRATORY: Normal breathing efforts, no accessory muscle use, clear to auscultation bilaterally, no wheezes or rales. CARDIOVASCULAR: S1, S2 normal, rate rhythm regular. EXTREMITY: No lower extremity edema NEURO: speech fluent. 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 03/29/17 05:44 Test 03/29/17 05:44 Anion Gap 7.0 mmol/L (3-11) Est Creatinine Clear Calc Drug Dose 39.0 ml/min Estimated GFR () 61.3 Estimated GFR (Non- 52.9 BUN/Creatinine Ratio 5.7 (10-20) Calcium Level 8.4 mg/dl (8.5-10.1) Ionized Calcium 1.16 mmol/l (1.12-1.32) Phosphorus Level 1.9 mg/dl (2.5-4.9) Magnesium Level 1.8 mg/dl (1.8-2.4) Albumin 2.7 gm/dl (3.4-5.0) Allergies Coded Allergies: No Known Allergies (Unverified , 03/15/17) Medications Current Inpatient Medications Medications (Trade) Dose Ordered Sig/Jonathan Route Start Time Stop Time Status Last Admin Dose Admin Acetaminophen (Tylenol Tab) 650 mg Q4H PRN PO 03/15/17 14:15 04/14/17 14:14 Tamsulosin HCl (Flomax Cap) 0.8 mg HS PO 03/15/17 21:00 04/14/17 20:59 03/28/17 20:28 0.8 MG Miscellaneous Information (Order Awaiting Action) 1 ea QS N/A 03/15/17 16:00 04/14/17 15:59 Pantoprazole Sodium (Protonix Tab) 40 mg QAM PO 03/16/17 09:00 04/15/17 08:59 03/29/17 08:16 40 MG Ranitidine HCl (zANTac TAB) 300 mg HS PO 03/15/17 21:00 04/14/17 20:59 03/28/17 20:30 300 MG Polyethylene (Miralax Powder Packet) 17 gm DAILY PRN PO 03/15/17 15:00 04/14/17 14:59 Docusate Sodium (coLACE CAP) 100 mg BID PO 03/15/17 21:00 04/14/17 20:59 03/29/17 08:16 100 MG Bisacodyl (Dulcolax Supp) 10 mg DAILY PRN [place] 03/15/17 15:00 04/14/17 14:59 Heparin Sodium (Porcine) (Heparin Sq 5000 Unit/0.5ml) 5,000 unit Q12 SQ 03/15/17 21:00 04/14/17 20:59 03/29/17 08:28 5,000 UNIT Desonide (Desowen 0.05% Crm) 1 appln BID EXT 03/15/17 21:00 04/14/17 20:59 03/29/17 08:17 1 APPLN Nystatin (Mycostatin Powder) 1 appln BID EXT 03/15/17 21:00 04/14/17 20:59 03/29/17 08:17 1 APPLN Calcium Carbonate (Tums Chew Tab) 2,000 mg QID PO 03/16/17 17:00 04/15/17 08:59 03/29/17 08:16 2,000 MG Potassium/ Phosphorus/Sodium (Phospha 250 Neutral 155-852-130 Mg) 1 tab QID PO 03/16/17 17:00 04/15/17 16:59 03/29/17 08:16 1 TAB Calcium Carbonate (oS-Randy 500 TAB) 1,250 mg QID PO 03/18/17 09:00 04/17/17 08:59 03/29/17 08:16 1,250 MG Miscellaneous (Tap Water Enema) 1 ea Q2D PRN [place] 03/18/17 13:30 04/17/17 13:29 Heparin Sodium (Porcine) (Heparin 10 Unit/ ml 5 ml Flush) 5 ml PRN PRN FLUSH 03/18/17 15:30 04/17/17 15:29 03/27/17 05:34 5 ML Calcitriol (Rocaltrol Cap) 2 mcg QAM PO 03/28/17 08:00 04/17/17 08:59 03/29/17 08:15 2 MCG Impression (1) Hypocalcemia (2) Prostate cancer (3) Hypertension Mr. 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 He developed hypocalcemia following treatment with Denosumab. EKG documented new QTc prolongation. QTc has improved to 380. 25OH D deficiency documented. He has received ergocalciferol 23886 IU and is taking daily cholecalciferol. Calcitriol is being provided. Aggressive replacement with PO and IV calcium continues. The patient has associated hypomagnesemia. This is being treated with IV magnesium sulfate. Recommendations --stop Ca gluconate IV and repeat ca in afternoon -- Continue oral Ca and Calcitriol to 2 mcg daily --check calcium daily --wait on discharge until ca stabilizes off of IV ca gluconate Will follow
[2017-03-29 13:41] LABS: CALCIUM 7.5 mg/dl (8.5-10.1)
[2017-03-29] MEDS ORDERED: SODIUM CHLORIDE 0.9% IV SCH (14:00)
[2017-03-29] MEDS ORDERED: CALCIUM GLUCONATE IV SCH (14:00)
--- NOTE | 2017-03-29 14:10 | Urology Consultation ---
History General Date of Service: Mar 29, 2017. Chief Complaint: metastatic prostate cancer Primary Care Physician: Alexander Cárdenas M.D. Pt seen a urologist before?: Yes (Dr. Gonzales) If yes, why?: prostate cancer History of Present Illness 81 yo male with metastatic prostate cancer admitted for n/v, weakness, and hypocalcemia. consulted for bey catheter change and cysto. Pt was due for these things on 03-15, the day of his admission, so they were canceled. He denies pain this morning. Hypocalcemia slowly improved over admission. Noted to have a positive UC&S growing enterococcus and stenotrophomonas maltophilia. He has finished a course of Bactrim. Bey catheter currently in place draining clear, yellow urine. Laboratory Last 24 Hours Test 03/29/17 05:44 03/29/17 13:09 Sodium Level 139 mmol/L Potassium Level 5.0 mmol/L Chloride Level 110 mmol/L Carbon Dioxide Level 22 mmol/L Anion Gap 7.0 mmol/L Blood Urea Nitrogen 7 mg/dl Creatinine 1.25 mg/dl Est Creatinine Clear Calc Drug Dose 39.0 ml/min Estimated GFR () 61.3 Estimated GFR (Non- 52.9 BUN/Creatinine Ratio 5.7 Random Glucose 82 mg/dl Calcium Level 8.4 mg/dl 7.5 mg/dl Ionized Calcium 1.16 mmol/l 0.96 mmol/l Phosphorus Level 1.9 mg/dl Magnesium Level 1.8 mg/dl 1.7 mg/dl Albumin 2.7 gm/dl 2.7 gm/dl Problem List Medical Problems: (1) Dehydration Status: Acute (2) Failure to thrive Status: Acute (3) Hypomagnesemia Status: Acute (4) UTI (urinary tract infection) Status: Acute (5) Vomiting Status: Acute Past History BPH, cancer - prostate (metastatic ), GERD, hypertension, other (Schatzki's ring , constipation, JONATHAN, CKD) Past Surgical History: other (hernia surgery, skin surgery) Family History non-contributory Social History Hx Tobacco Use In Past Year?: No (QUIT 20 YEARSA AGO ) Smoking: other (former smoker) Drug use: none Marital status: Housing status: lives with family (lives with son) Occupation status: retired Immunizations History of Influenza Vaccine: Yes History of Tetanus Vaccine?: Unknown History of Pneumococcal: Unknown History of Hepatitis B Vaccine: Unknown History of MDRO No Allergies Coded Allergies: No Known Allergies (Unverified , 03/15/17) Medications Home Medications: Home Meds and Scripts Medications Dose Route/Sig Max Daily Dose Days Date Category Fosamax+D 70MG/2800 Iu (Alendronate Sodium/Vitamin D3) 70 Mg Tab 1 Amp PO UD PRN 03/13/17 Reported Propecia (Finasteride) 1 Mg Tab 1 Mg PO HS 02/19/17 Reported Prilosec (Omeprazole) 20 Mg Capcr 20 Mg PO QAM 02/19/17 Reported Flomax (Tamsulosin Hcl) 0.4 Mg Cap 0.8 Mg PO HS 02/19/17 Reported Zantac (Ranitidine HCl) 300 Mg Tab 300 Mg PO HS 02/19/17 Reported Inpatient Medications: Current Inpatient Medications Medications (Trade) Dose Ordered Sig/Jonathan Route Start Time Stop Time Status Last Admin Dose Admin Acetaminophen (Tylenol Tab) 650 mg Q4H PRN PO 03/15/17 14:15 04/14/17 14:14 Tamsulosin HCl (Flomax Cap) 0.8 mg HS PO 03/15/17 21:00 04/14/17 20:59 03/28/17 20:28 0.8 MG Miscellaneous Information (Order Awaiting Action) 1 ea QS N/A 03/15/17 16:00 04/14/17 15:59 Pantoprazole Sodium (Protonix Tab) 40 mg QAM PO 03/16/17 09:00 04/15/17 08:59 03/29/17 08:16 40 MG Ranitidine HCl (zANTac TAB) 300 mg HS PO 03/15/17 21:00 04/14/17 20:59 03/28/17 20:30 300 MG Polyethylene (Miralax Powder Packet) 17 gm DAILY PRN PO 03/15/17 15:00 04/14/17 14:59 Docusate Sodium (coLACE CAP) 100 mg BID PO 03/15/17 21:00 04/14/17 20:59 03/29/17 08:16 100 MG Bisacodyl (Dulcolax Supp) 10 mg DAILY PRN [place] 03/15/17 15:00 04/14/17 14:59 Heparin Sodium (Porcine) (Heparin Sq 5000 Unit/0.5ml) 5,000 unit Q12 SQ 03/15/17 21:00 04/14/17 20:59 03/29/17 08:28 5,000 UNIT Desonide (Desowen 0.05% Crm) 1 appln BID EXT 03/15/17 21:00 04/14/17 20:59 03/29/17 08:17 1 APPLN Nystatin (Mycostatin Powder) 1 appln BID EXT 03/15/17 21:00 04/14/17 20:59 03/29/17 08:17 1 APPLN Calcium Carbonate (Tums Chew Tab) 2,000 mg QID PO 03/16/17 17:00 04/15/17 08:59 03/29/17 11:28 2,000 MG Potassium/ Phosphorus/Sodium (Phospha 250 Neutral 155-852-130 Mg) 1 tab QID PO 03/16/17 17:00 04/15/17 16:59 03/29/17 11:27 1 TAB Calcium Carbonate (oS-Randy 500 TAB) 1,250 mg QID PO 03/18/17 09:00 04/17/17 08:59 03/29/17 11:27 1,250 MG Miscellaneous (Tap Water Enema) 1 ea Q2D PRN [place] 03/18/17 13:30 04/17/17 13:29 Heparin Sodium (Porcine) (Heparin 10 Unit/ ml 5 ml Flush) 5 ml PRN PRN FLUSH 03/18/17 15:30 04/17/17 15:29 03/27/17 05:34 5 ML Potassium Phosphate 30 mmol/ Sodium Chloride 510 ml @ 88 mls/hr TODAY@1100 IV 03/29/17 11:00 03/29/17 16:48 03/29/17 11:26 88 MLS/HR Heparin Sodium (Porcine) (Heparin 10 Unit/ ml 5 ml Flush) 5 ml PRN PRN FLUSH 03/29/17 11:00 04/28/17 10:59 Calcitriol (Rocaltrol Cap) 3 mcg QAM PO 03/30/17 08:00 04/17/17 08:59 UNV Calcium Gluconate 21481 mg/Sodium Chloride 150 ml @ 240 mls/hr Q10H IV 03/29/17 14:00 04/28/17 13:59 UNV Review of Systems Review of Systems Constitutional: No fever, No chills Eyes: No double vision Neurological: No dizzy Endocrine: No excessive thirst Gastrointestinal: No abdominal pain, No nausea, No vomiting Cardiovascular: No chest pain Respiratory: No shortness of breath Skin: No rash Musculoskeletal: No back pain Male : No blood in urine Physical Exam Vital Signs: Vital Signs Past 12 Hours Date Time Temp Pulse Resp B/P (MAP) Pulse Ox O2 Delivery O2 Flow Rate FiO2 03/29/17 11:46 36.7 90 16 114/65 (81) 98 Room Air 03/29/17 08:15 Room Air 03/29/17 07:24 36.8 66 16 117/58 (77) 97 Room Air 03/29/17 05:02 36.8 74 20 121/65 (83) 97 Room Air Physical Exam: General Appearance: no apparent distress Eyes: bilateral eyes normal inspection ENT: hearing grossly normal Neck: no JVD Respiratory/Chest: no respiratory distress, no accessory muscle use Cardiovascular: no JVD Genitourinary - Male: Penis: pertinent finding (normal penis, uncircumcised) Extremities: normal inspection Neurologic/Psychiatric: alert, normal mood/affect, oriented x 3 Skin: normal color Assessment & Plan Assessment & Plan A/P: Metastatic prostate cancer, UTI AFVSS. Bey catheter changed today by RN without difficulty. Will order a repeat UC&S. Tx based on sensitivities. Plan to reschedule cysto as an outpatient in the next 2 weeks. Management of prostate cancer per oncology. Thanks for the consult. No further management at this time. Recall PRN issues. Will arrange for outpatient f/u. Attending: Agree with above. Catheter changed without issues. Will reschedule cystoscopy and reassess.
[2017-03-29 15:54] VITALS: BP 122/68; PULSE 87; TEMP 36.9; O2SAT 98
--- NOTE | 2017-03-29 16:11 | Family Medicine Progress Note ---
Progress Note Date of Service Mar 29, 2017. Subjective Pt evaluation today including: conversation w/ patient, conversation w/ family , physical exam, chart review, lab review, review of studies Pain: No pain reported this morning Voiding: bey catheter in place (bey changed today)
--- NOTE | 2017-03-29 18:48 | Family Medicine Progress Note ---
Progress Note Date of Service Mar 29, 2017. Subjective Pt evaluation today including: conversation w/ patient, physical exam, chart review, lab review, review of studies Pain: No pain reported this morning Voiding: bey catheter in place Patient resting comfortably in bed with no acute complaints Additional Comments: See HPI for pertinent positives and negatives. A total of ten systems were reviewed and were otherwise negative. Medications Current Inpatient Medications Medications (Trade) Dose Ordered Sig/Jonathan Route Start Time Stop Time Status Last Admin Dose Admin Acetaminophen (Tylenol Tab) 650 mg Q4H PRN PO 03/15/17 14:15 04/14/17 14:14 Tamsulosin HCl (Flomax Cap) 0.8 mg HS PO 03/15/17 21:00 04/14/17 20:59 03/28/17 20:28 0.8 MG Miscellaneous Information (Order Awaiting Action) 1 ea QS N/A 03/15/17 16:00 04/14/17 15:59 Pantoprazole Sodium (Protonix Tab) 40 mg QAM PO 03/16/17 09:00 04/15/17 08:59 03/29/17 08:16 40 MG Ranitidine HCl (zANTac TAB) 300 mg HS PO 03/15/17 21:00 04/14/17 20:59 03/28/17 20:30 300 MG Polyethylene (Miralax Powder Packet) 17 gm DAILY PRN PO 03/15/17 15:00 04/14/17 14:59 Docusate Sodium (coLACE CAP) 100 mg BID PO 03/15/17 21:00 04/14/17 20:59 03/29/17 08:16 100 MG Bisacodyl (Dulcolax Supp) 10 mg DAILY PRN [place] 03/15/17 15:00 04/14/17 14:59 Heparin Sodium (Porcine) (Heparin Sq 5000 Unit/0.5ml) 5,000 unit Q12 SQ 03/15/17 21:00 04/14/17 20:59 03/29/17 08:28 5,000 UNIT Desonide (Desowen 0.05% Crm) 1 appln BID EXT 03/15/17 21:00 04/14/17 20:59 03/29/17 08:17 1 APPLN Nystatin (Mycostatin Powder) 1 appln BID EXT 03/15/17 21:00 04/14/17 20:59 03/29/17 08:17 1 APPLN Calcium Carbonate (Tums Chew Tab) 2,000 mg QID PO 03/16/17 17:00 04/15/17 08:59 03/29/17 17:36 2,000 MG Potassium/ Phosphorus/Sodium (Phospha 250 Neutral 155-852-130 Mg) 1 tab QID PO 03/16/17 17:00 04/15/17 16:59 03/29/17 17:36 1 TAB Calcium Carbonate (oS-Randy 500 TAB) 1,250 mg QID PO 03/18/17 09:00 04/17/17 08:59 03/29/17 17:36 1,250 MG Miscellaneous (Tap Water Enema) 1 ea Q2D PRN [place] 03/18/17 13:30 04/17/17 13:29 Heparin Sodium (Porcine) (Heparin 10 Unit/ ml 5 ml Flush) 5 ml PRN PRN FLUSH 03/18/17 15:30 04/17/17 15:29 03/27/17 05:34 5 ML Heparin Sodium (Porcine) (Heparin 10 Unit/ ml 5 ml Flush) 5 ml PRN PRN FLUSH 03/29/17 11:00 04/28/17 10:59 Calcitriol (Rocaltrol Cap) 3 mcg QAM PO 03/30/17 08:00 04/17/17 08:59 Calcium Gluconate 2000 mg/Sodium Chloride 520 ml @ 125 mls/hr Q4H10M IV 03/29/17 16:30 04/28/17 16:29 03/29/17 18:04 125 MLS/HR Objective Vital Signs Date Time Temp Pulse Resp B/P (MAP) Pulse Ox O2 Delivery O2 Flow Rate FiO2 03/29/17 16:06 Room Air 03/29/17 15:54 36.9 87 16 122/68 (86) 98 Room Air 03/29/17 11:46 36.7 90 16 114/65 (81) 98 Room Air 03/29/17 08:15 Room Air 03/29/17 07:24 36.8 66 16 117/58 (77) 97 Room Air 03/29/17 05:02 36.8 74 20 121/65 (83) 97 Room Air 03/29/17 00:00 Room Air 03/28/17 23:32 36.8 74 20 135/69 (91) 99 Room Air 03/28/17 20:05 Room Air 03/28/17 19:35 36.6 82 18 115/63 (80) 97 Room Air Physical Exam General Appearance: WD/WN, no apparent distress Eyes: normal inspection, sclerae normal Neck: supple, trachea midline Respiratory/Chest: chest non-tender, lungs clear, normal breath sounds, no respiratory distress, no accessory muscle use Cardiovascular: regular rate, rhythm, no edema, no gallop Abdomen: normal bowel sounds, non tender, soft Extremities: no pedal edema, no calf tenderness Neurologic/Psychiatric: alert, normal mood/affect, oriented x 3 Laboratory Results Results Past 24 Hours Test 03/29/17 05:44 03/29/17 13:09 Range/Units Sodium Level 139 136-145 mmol/L Potassium Level 5.0 3.5-5.1 mmol/L Chloride Level 110 98-107 mmol/L Carbon Dioxide Level 22 21-32 mmol/L Anion Gap 7.0 3-11 mmol/L Blood Urea Nitrogen 7 7-18 mg/dl Creatinine 1.25 0.60-1.40 mg/dl Est Creatinine Clear Calc Drug Dose 39.0 ml/min Estimated GFR () 61.3 Estimated GFR (Non- 52.9 BUN/Creatinine Ratio 5.7 10-20 Random Glucose 82 70-99 mg/dl Calcium Level 8.4 7.5 8.5-10.1 mg/dl Ionized Calcium 1.16 0.96 1.12-1.32 mmol/l Phosphorus Level 1.9 2.5-4.9 mg/dl Magnesium Level 1.8 1.7 1.8-2.4 mg/dl Albumin 2.7 2.7 3.4-5.0 gm/dl Assessment and Plan Mr. Greene is an 81 year old man with a history of prostate cancer and osteoblastic mets that presented with fatigue and found to have severe hypocalcemia thought secondary to his Denosumab (03/02/2017). Hypocalcemia/hypophosphatemia - Secondary to Denosumab injection in the setting of metastatic prostate CA - Calcium improved to 8.4 this morning but after repeat labs in the afternoon dropped to 7.5 --> Goal is maintaining Ca > 8.0 or ionized >1 - As per nephrology --> Ca gluconate IV at 2g IV q4h - Continue oral Calcium and Calcitriol --> Calcitriol increased to 3 mcg PO QAM - Continue to monitor Calcium levels daily - Vitamin D level now wnl and can discontinue Vitamin D supplementation Hypomagnesemia/ Hypophosphatemia - Magnesium 1.8 today - Phosphate of 1.9 - 30mmol of KPhos administered UTI; stenotrophomona and enterococcus; chronic bey - Bactrim/ Amoxil course completed (10 day course)--> Initially treated with Rocephin on admission Superficial thrombophlebitis of right arm; improved since admission - Ultrasound confirmation of superficial thrombus involving the cephalic vein - Avoid IV line in right UE - Warm compress Prostate Ca with mets to bone - Continue tamsulosin, finasteride Intertrigo/thrush - Nystatin swish and swallow, nystatin powder for groin Seborrheic dermatitis - Completed 14 day course of Desonide for face CKD III stable - Avoid nephrotoxins where possible - Monitor with daily BMP DVT Prophylaxis - Heparin subq bid Code Status - DNR Resident Tracking Resident Involvement: Resident Care Provided Care Provided: Adult Hospital Medicine
[2017-03-29] MEDS: RANITIDINE HCL 150 MG TAB PO SCH (20:16)
[2017-03-29] MEDS: TAMSULOSIN HCL 0.4 MG CAP PO SCH (20:16)
[2017-03-29 23:44] VITALS: BP 118/61; PULSE 81; TEMP 36.9; O2SAT 98
[2017-03-30] VITALS (7 sets, daily range): BP systolic 119–132; BP diastolic 67–84; PULSE 75–78; TEMP 36.6–36.9; O2SAT 96–97
[2017-03-30] MEDS: SODIUM CHLORIDE 0.9% IV SCH ×6 (00:01→19:42)
[2017-03-30] MEDS: CALCIUM GLUCONATE IV SCH ×6 (00:01→19:42)
[2017-03-30 06:45] LABS: ALBUMIN 2.6 gm/dl (3.4-5.0); CALCIUM 6.1 mg/dl (8.5-10.1); CREATININE 1.11 mg/dl (0.60-1.40); PHOSPHORUS 2.1 mg/dl (2.5-4.9); POTASSIUM 4.7 mmol/L (3.5-5.1)
[2017-03-30] MEDS ORDERED: POTASSIUM PHOS 3 MMOL/1 ML INFUSION IV STA (07:54)
[2017-03-30] MEDS ORDERED: POTASSIUM PHOSPHATE INJ 15 MMOL in SODIUM CHLORIDE 0.9% 250ML 250 ML IV ONE (08:30)
[2017-03-30] MEDS: MAGNESIUM SULFATE 1GM / D5W 1 GM in PREMIXED IN D5W 100 ML IV SCH ×2 (09:37→11:49)
[2017-03-30] MEDS: NYSTATIN POWDER 15GM BTL EXT SCH ×2 (09:50→19:47)
[2017-03-30] MEDS: CALCIUM CARBONATE 1250MG TAB PO SCH ×4 (09:51→19:44)
[2017-03-30] MEDS: DOCUSATE SODIUM 100 MG CAP PO SCH ×2 (09:51→19:45)
[2017-03-30] MEDS: POT PHOSPHATE MONOBASIC W/ SOD TAB PO SCH ×4 (09:51→19:47)
[2017-03-30] MEDS: PANTOprazole SOD 40 MG TAB PO SCH (09:51)
[2017-03-30] MEDS: CALCIUM CARBONATE 500 MG CHEWABLE PO SCH ×4 (09:52→19:44)
[2017-03-30] MEDS: CALCITRIOL 0.25 MCG CAP PO SCH (09:53)
[2017-03-30] MEDS: HEPARIN SOD 5000 UNIT/0.5 ML CARP SQ SCH ×2 (09:54→21:52)
--- NOTE | 2017-03-30 11:57 | Nephrology Progress Note ---
Nephrology Progress Note Date of Service Mar 30, 2017. Chief Complaint Follow-up for hypocalcemia Subjective David was seen and examined in his room this morning.. Overall his clinically stable and feeling well. Calcium again dropped this morning despite being on IV calcium gluconate and high dose of calcitriol and almost 10 grams of supplemental oral calcium. Blood pressure has been stable. Review of Systems A complete review of systems was performed. Pertinent positives are noted above. All other systems are negative. Vital Signs Last 8 Hrs Date Time Temp Pulse Resp B/P (MAP) Pulse Ox O2 Delivery O2 Flow Rate FiO2 03/30/17 08:37 96 Room Air 03/30/17 08:01 36.9 75 12 132/84 (100) 96 Room Air 03/30/17 07:22 36.6 76 18 125/69 (87) 97 Last Recorded Weight Weight (Kilograms): 63.700 Physical Exam GENERAL: elderly male, AAA x 3, pleasant, healthy-appearing, not in any distress. NECK: Supple, no JVD. RESPIRATORY: Normal breathing efforts, no accessory muscle use, clear to auscultation bilaterally, no wheezes or rales. CARDIOVASCULAR: S1, S2 normal, rate rhythm regular. EXTREMITY: No lower extremity edema NEURO: speech fluent. 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 03/30/17 05:54 Test 03/29/17 13:09 03/30/17 05:54 Calcium Level 7.5 mg/dl (8.5-10.1) 6.1 mg/dl (8.5-10.1) Ionized Calcium 0.96 mmol/l (1.12-1.32) 0.84 mmol/l (1.12-1.32) Magnesium Level 1.7 mg/dl (1.8-2.4) 1.6 mg/dl (1.8-2.4) Albumin 2.7 gm/dl (3.4-5.0) 2.6 gm/dl (3.4-5.0) Anion Gap 7.0 mmol/L (3-11) Est Creatinine Clear Calc Drug Dose 43.9 ml/min Estimated GFR () 70.8 Estimated GFR (Non- 61.1 BUN/Creatinine Ratio 6.0 (10-20) Phosphorus Level 2.1 mg/dl (2.5-4.9) Allergies Coded Allergies: No Known Allergies (Unverified , 03/15/17) Medications Current Inpatient Medications Medications (Trade) Dose Ordered Sig/Jonathan Route Start Time Stop Time Status Last Admin Dose Admin Acetaminophen (Tylenol Tab) 650 mg Q4H PRN PO 03/15/17 14:15 04/14/17 14:14 Tamsulosin HCl (Flomax Cap) 0.8 mg HS PO 03/15/17 21:00 04/14/17 20:59 03/29/17 20:16 0.8 MG Miscellaneous Information (Order Awaiting Action) 1 ea QS N/A 03/15/17 16:00 04/14/17 15:59 Pantoprazole Sodium (Protonix Tab) 40 mg QAM PO 03/16/17 09:00 04/15/17 08:59 03/29/17 08:16 40 MG Ranitidine HCl (zANTac TAB) 300 mg HS PO 03/15/17 21:00 04/14/17 20:59 03/29/17 20:16 300 MG Polyethylene (Miralax Powder Packet) 17 gm DAILY PRN PO 03/15/17 15:00 04/14/17 14:59 Docusate Sodium (coLACE CAP) 100 mg BID PO 03/15/17 21:00 04/14/17 20:59 03/29/17 20:14 100 MG Bisacodyl (Dulcolax Supp) 10 mg DAILY PRN OR 03/15/17 15:00 04/14/17 14:59 Heparin Sodium (Porcine) (Heparin Sq 5000 Unit/0.5ml) 5,000 unit Q12 SQ 03/15/17 21:00 04/14/17 20:59 03/29/17 20:18 5,000 UNIT Nystatin (Mycostatin Powder) 1 appln BID EXT 03/15/17 21:00 04/14/17 20:59 03/29/17 20:19 1 APPLN Calcium Carbonate (Tums Chew Tab) 2,000 mg QID PO 03/16/17 17:00 04/15/17 08:59 03/29/17 20:15 2,000 MG Potassium/ Phosphorus/Sodium (Phospha 250 Neutral 155-852-130 Mg) 1 tab QID PO 03/16/17 17:00 04/15/17 16:59 03/29/17 20:15 1 TAB Calcium Carbonate (oS-Randy 500 TAB) 1,250 mg QID PO 03/18/17 09:00 04/17/17 08:59 03/29/17 20:14 1,250 MG Miscellaneous (Tap Water Enema) 1 ea Q2D PRN OR 03/18/17 13:30 04/17/17 13:29 Heparin Sodium (Porcine) (Heparin 10 Unit/ ml 5 ml Flush) 5 ml PRN PRN FLUSH 03/18/17 15:30 04/17/17 15:29 03/27/17 05:34 5 ML Heparin Sodium (Porcine) (Heparin 10 Unit/ ml 5 ml Flush) 5 ml PRN PRN FLUSH 03/29/17 11:00 04/28/17 10:59 Calcitriol (Rocaltrol Cap) 3 mcg QAM PO 03/30/17 08:00 04/17/17 08:59 Calcium Gluconate 2000 mg/Sodium Chloride 520 ml @ 125 mls/hr Q4H10M IV 03/29/17 16:30 04/28/17 16:29 03/30/17 06:51 125 MLS/HR Magnesium Sulfate 1 gm/Prmx 100 ml @ 100 mls/hr Q1H IV 03/30/17 08:30 03/30/17 10:29 Potassium Phosphate 15 mmol/ Sodium Chloride 255 ml @ 113.333 mls/hr ONE ONCE IV 03/30/17 08:30 03/30/17 10:44 Impression (1) Hypocalcemia (2) Prostate cancer (3) Hypertension Mr. 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 He developed hypocalcemia following treatment with Denosumab. EKG documented new QTc prolongation. QTc has improved to 380. 25OH D deficiency documented. He has received ergocalciferol 90473 IU and is taking daily cholecalciferol. Calcitriol is being provided. Aggressive replacement with PO and IV calcium continues. The patient has associated hypomagnesemia. This is being treated with IV magnesium sulfate. Recommendations --continue on Ca gluconate IV , oral Ca and Calcitriol 3 mcg daily --start on hydrochlorothiazide 25 milligram p.o. daily --check calcium daily --wait on discharge until ca stabilizes off of IV ca gluconate Will follow
[2017-03-30] MEDS: HYDROCHLOROTHIAZIDE 25 MG TAB PO SCH (13:17)
--- NOTE | 2017-03-30 14:34 | Family Medicine Progress Note ---
Progress Note Date of Service Mar 30, 2017. Subjective Pt evaluation today including: conversation w/ patient, physical exam, chart review, lab review, review of studies Pain: No pain reported this morning Voiding: bey catheter in place Patient resting comfortably in bed this morning with no acute complaints. Discussed with patient that due to recent calcium drop, we will try to start him on hydrochlorothiazide to retain more calcium. The patient denies any muscle weakness, dominant pain, fevers, chills, shortness of breath. All Other Systems: Reviewed and Negative Medications Current Inpatient Medications Medications (Trade) Dose Ordered Sig/Jonathan Route Start Time Stop Time Status Last Admin Dose Admin Acetaminophen (Tylenol Tab) 650 mg Q4H PRN PO 03/15/17 14:15 04/14/17 14:14 Tamsulosin HCl (Flomax Cap) 0.8 mg HS PO 03/15/17 21:00 04/14/17 20:59 03/29/17 20:16 0.8 MG Miscellaneous Information (Order Awaiting Action) 1 ea QS N/A 03/15/17 16:00 04/14/17 15:59 Pantoprazole Sodium (Protonix Tab) 40 mg QAM PO 03/16/17 09:00 04/15/17 08:59 03/30/17 09:51 40 MG Ranitidine HCl (zANTac TAB) 300 mg HS PO 03/15/17 21:00 04/14/17 20:59 03/29/17 20:16 300 MG Polyethylene (Miralax Powder Packet) 17 gm DAILY PRN PO 03/15/17 15:00 04/14/17 14:59 Docusate Sodium (coLACE CAP) 100 mg BID PO 03/15/17 21:00 04/14/17 20:59 03/30/17 09:51 100 MG Bisacodyl (Dulcolax Supp) 10 mg DAILY PRN NC 03/15/17 15:00 04/14/17 14:59 Heparin Sodium (Porcine) (Heparin Sq 5000 Unit/0.5ml) 5,000 unit Q12 SQ 03/15/17 21:00 04/14/17 20:59 03/30/17 09:54 5,000 UNIT Nystatin (Mycostatin Powder) 1 appln BID EXT 03/15/17 21:00 04/14/17 20:59 03/30/17 09:50 1 APPLN Calcium Carbonate (Tums Chew Tab) 2,000 mg QID PO 03/16/17 17:00 04/15/17 08:59 03/30/17 11:50 2,000 MG Potassium/ Phosphorus/Sodium (Phospha 250 Neutral 155-852-130 Mg) 1 tab QID PO 03/16/17 17:00 04/15/17 16:59 03/30/17 11:49 1 TAB Calcium Carbonate (oS-Randy 500 TAB) 1,250 mg QID PO 03/18/17 09:00 04/17/17 08:59 03/30/17 11:49 1,250 MG Miscellaneous (Tap Water Enema) 1 ea Q2D PRN NC 03/18/17 13:30 04/17/17 13:29 Heparin Sodium (Porcine) (Heparin 10 Unit/ ml 5 ml Flush) 5 ml PRN PRN FLUSH 03/18/17 15:30 04/17/17 15:29 03/27/17 05:34 5 ML Heparin Sodium (Porcine) (Heparin 10 Unit/ ml 5 ml Flush) 5 ml PRN PRN FLUSH 03/29/17 11:00 04/28/17 10:59 Calcitriol (Rocaltrol Cap) 3 mcg QAM PO 03/30/17 08:00 04/17/17 08:59 03/30/17 09:53 3 MCG Calcium Gluconate 2000 mg/Sodium Chloride 520 ml @ 125 mls/hr Q4H10M IV 03/29/17 16:30 04/28/17 16:29 03/30/17 06:51 125 MLS/HR Hydrochlorothiazide (Hydrochlorothiazide Tab) 25 mg QAM PO 03/30/17 13:00 04/29/17 12:59 03/30/17 13:17 25 MG Objective Vital Signs Date Time Temp Pulse Resp B/P (MAP) Pulse Ox O2 Delivery O2 Flow Rate FiO2 03/30/17 08:37 96 Room Air 03/30/17 08:01 36.9 75 12 132/84 (100) 96 Room Air 03/30/17 08:00 96 Room Air 03/30/17 07:22 36.6 76 18 125/69 (87) 97 03/30/17 00:00 Room Air 03/29/17 23:44 36.9 81 16 118/61 (80) 98 Room Air 03/29/17 16:06 Room Air 03/29/17 15:54 36.9 87 16 122/68 (86) 98 Room Air Physical Exam General Appearance: WD/WN, no apparent distress Eyes: normal inspection, sclerae normal Neck: supple, no carotid bruits Respiratory/Chest: chest non-tender, lungs clear, normal breath sounds Cardiovascular: regular rate, rhythm, no edema, no gallop Abdomen: normal bowel sounds, non tender, soft Extremities: no pedal edema, no calf tenderness Neurologic/Psychiatric: alert, normal mood/affect, oriented x 3 Laboratory Results Results Past 24 Hours Test 03/30/17 05:54 Range/Units Sodium Level 141 136-145 mmol/L Potassium Level 4.7 3.5-5.1 mmol/L Chloride Level 113 98-107 mmol/L Carbon Dioxide Level 21 21-32 mmol/L Anion Gap 7.0 3-11 mmol/L Blood Urea Nitrogen 7 7-18 mg/dl Creatinine 1.11 0.60-1.40 mg/dl Est Creatinine Clear Calc Drug Dose 43.9 ml/min Estimated GFR () 70.8 Estimated GFR (Non- 61.1 BUN/Creatinine Ratio 6.0 10-20 Random Glucose 79 70-99 mg/dl Calcium Level 6.1 8.5-10.1 mg/dl Ionized Calcium 0.84 1.12-1.32 mmol/l Phosphorus Level 2.1 2.5-4.9 mg/dl Magnesium Level 1.6 1.8-2.4 mg/dl Albumin 2.6 3.4-5.0 gm/dl Assessment and Plan Mr. Greene is an 81 year old man with a history of prostate cancer and osteoblastic mets that presented with fatigue and found to have severe hypocalcemia thought secondary to his Denosumab (03/02/2017). Hypocalcemia/hypophosphatemia - The patient has now been on 2 weeks of IV calcium and oral calcium therapy, and despite constant calcium replacement the patient continues to be unable to increase his levels. The patient is being followed by nephrology, and will require hospitalization until his calcium levels can remain constant without IV calcium therapy. - Secondary to Denosumab injection in the setting of metastatic prostate CA - Calcium decreased to 6.5 this morning --> Goal is maintaining Ca > 8.0 or ionized >1 - As per nephrology --> Ca gluconate IV at 2g IV q4h - Continue oral Calcium and Calcitriol --> Calcitriol increased to 3 mcg PO QAM - Continue to monitor Calcium levels daily - Vitamin D level now wnl and can discontinue Vitamin D supplementation Hypomagnesemia/ Hypophosphatemia - Magnesium 1.6 today --> 2g Magnesium Sulfate supplementation - Phosphate of 12.1 - 15 mmol of KPhos administered UTI; stenotrophomona and enterococcus; chronic bey - Bactrim/ Amoxil course completed (10 day course) --> Initially treated with Rocephin on admission Superficial thrombophlebitis of right arm; improved since admission - Ultrasound confirmation of superficial thrombus involving the cephalic vein - Avoid IV line in right UE - Warm compress Prostate Ca with mets to bone - Continue tamsulosin, finasteride Intertrigo/thrush - Nystatin swish and swallow, nystatin powder for groin Seborrheic dermatitis - Completed 14 day course of Desonide for face CKD III stable - Avoid nephrotoxins where possible - Monitor with daily BMP DVT Prophylaxis - Heparin subq bid Code Status - DNR Resident Tracking Resident Involvement: Resident Care Provided Care Provided: Adult Hospital Medicine
[2017-03-30] MEDS: RANITIDINE HCL 150 MG TAB PO SCH (21:50)
[2017-03-30] MEDS: TAMSULOSIN HCL 0.4 MG CAP PO SCH (21:50)
[2017-03-31] MEDS: SODIUM CHLORIDE 0.9% IV SCH ×6 (00:05→21:07)
[2017-03-31] MEDS: CALCIUM GLUCONATE IV SCH ×6 (00:05→21:07)
[2017-03-31 06:45] LABS: ALBUMIN 2.7 gm/dl (3.4-5.0); CALCIUM 6.2 mg/dl (8.5-10.1); CREATININE 1.07 mg/dl (0.60-1.40); POTASSIUM 4.7 mmol/L (3.5-5.1)
[2017-03-31] MEDS ORDERED: SODIUM CHLORIDE 0.9% IV STA ×2 (07:13)
[2017-03-31] MEDS ORDERED: CALCIUM GLUCONATE IV STA ×2 (07:13)
[2017-03-31 07:38] VITALS: BP 112/67; PULSE 76; TEMP 36.9; O2SAT 97
[2017-03-31] MEDS: POT PHOSPHATE MONOBASIC W/ SOD TAB PO SCH ×4 (07:59→21:03)
[2017-03-31 08:00] VITALS: O2SAT 97
[2017-03-31] MEDS: CALCIUM CARBONATE 1250MG TAB PO SCH ×4 (08:00→21:03)
[2017-03-31] MEDS: CALCIUM CARBONATE 500 MG CHEWABLE PO SCH ×4 (08:00→21:03)
[2017-03-31] MEDS: CALCITRIOL 0.25 MCG CAP PO SCH (08:01)
[2017-03-31] MEDS: HYDROCHLOROTHIAZIDE 25 MG TAB PO SCH (08:02)
[2017-03-31] MEDS: PANTOprazole SOD 40 MG TAB PO SCH (08:02)
[2017-03-31] MEDS: DOCUSATE SODIUM 100 MG CAP PO SCH ×2 (08:02→21:03)
[2017-03-31] MEDS: NYSTATIN POWDER 15GM BTL EXT SCH ×2 (08:03→21:03)
[2017-03-31] MEDS: HEPARIN SOD 5000 UNIT/0.5 ML CARP SQ SCH ×2 (08:05→21:09)
--- NOTE | 2017-03-31 08:07 | Family Medicine Progress Note ---
Progress Note Date of Service Mar 31, 2017. Subjective Pt evaluation today including: conversation w/ patient Pain: none Voiding: bey catheter in place No concerns no acute events Constitutional: No fever, No chills Eyes: No worsening of vision ENT: No hearing loss Respiratory: No cough, No sputum, No shortness of breath, No dyspnea on exertion Cardiovascular: No chest pain Abdomen: No pain, No nausea, No vomiting, No diarrhea, No constipation Musculoskeletal: + joint pain Medications Medications (Trade) Dose Ordered Sig/Jonathan Route Start Time Stop Time Status Last Admin Dose Admin Hydrochlorothiazide (Hydrochlorothiazide Tab) 25 mg QAM PO 03/30/17 13:00 04/29/17 12:59 03/31/17 08:02 25 MG Calcium Gluconate 3000 mg/Sodium Chloride 130 ml @ 260 mls/hr NOW STAT IV 03/31/17 07:13 03/31/17 07:42 DC 03/31/17 07:53 260 MLS/HR Objective Vital Signs Date Time Temp Pulse Resp B/P (MAP) Pulse Ox O2 Delivery O2 Flow Rate FiO2 03/31/17 07:38 36.9 76 20 112/67 (82) 97 03/31/17 00:14 Room Air 03/30/17 23:10 36.7 78 18 119/67 (84) 97 Room Air 03/30/17 19:40 Room Air 03/30/17 16:00 97 Room Air 03/30/17 14:52 36.7 76 18 132/69 (90) 97 Room Air Physical Exam General Appearance: no apparent distress Eyes: PERRL, EOMI ENT: hearing grossly normal Neck: no adenopathy Respiratory/Chest: lungs clear, normal breath sounds, no respiratory distress, no accessory muscle use Cardiovascular: regular rate, rhythm, no edema Abdomen: normal bowel sounds, non tender, soft Extremities: normal inspection, no pedal edema, no calf tenderness Neurologic/Psychiatric: alert, normal mood/affect, oriented x 3 Laboratory Results Last 24 Hours Test 03/31/17 05:50 Sodium Level 141 mmol/L Potassium Level 4.7 mmol/L Chloride Level 112 mmol/L Carbon Dioxide Level 24 mmol/L Anion Gap 5.0 mmol/L Blood Urea Nitrogen 7 mg/dl Creatinine 1.07 mg/dl Est Creatinine Clear Calc Drug Dose 45.5 ml/min Estimated GFR () 74.0 Estimated GFR (Non- 63.9 BUN/Creatinine Ratio 6.4 Random Glucose 77 mg/dl Calcium Level 6.2 mg/dl Ionized Calcium 0.87 mmol/l Phosphorus Level 2.0 mg/dl Magnesium Level 1.8 mg/dl Albumin 2.7 gm/dl Assessment and Plan Mr. Greene is an 81 year old man with a history of prostate cancer and osteoblastic mets that presented with fatigue and found to have severe hypocalcemia thought secondary to his Denosumab (03/02/2017). Hypocalcemia/hypophosphatemia - The patient has now been on 2 + weeks of IV calcium and oral calcium therapy, and despite constant calcium replacement the patient continues to be unable to increase his levels. The patient is being followed by nephrology, and will require hospitalization until his calcium levels can remain constant without IV calcium therapy. - Secondary to Denosumab injection in the setting of metastatic prostate CA - Calcium decreased to 6.2 this morning --> Goal is maintaining Ca > 8.0 - As per nephrology --> Ca gluconate IV at 2g IV q4h, given additional 3g IV today AM - Continue oral Calcium and Calcitriol --> Calcitriol increased to 3 mcg PO QAM - Continue to monitor Calcium levels daily - Vitamin D level now wnl and can discontinue Vitamin D supplementation Hypomagnesemia/ Hypophosphatemia - Magnesium 1.8 today --> 2g Magnesium Sulfate supplementation - Phosphate 2.0, 15 mmol sodium phos given UTI; stenotrophomona and enterococcus; chronic bey - Bactrim/ Amoxil course completed (10 day course) --> Initially treated with Rocephin on admission Superficial thrombophlebitis of right arm; improved since admission - Ultrasound confirmation of superficial thrombus involving the cephalic vein - Avoid IV line in right UE - Warm compress Prostate Ca with mets to bone - Continue tamsulosin, finasteride Intertrigo/thrush - Nystatin swish and swallow, nystatin powder for groin Seborrheic dermatitis - Completed 14 day course of Desonide for face CKD III stable - Avoid nephrotoxins where possible - Monitor with daily BMP DVT Prophylaxis - Heparin subq bid Code Status - DNR
[2017-03-31] MEDS ORDERED: SODIUM PHOSPHATE 3 MMOL/1 ML INFUSION IV STA (09:42)
[2017-03-31] MEDS ORDERED: SODIUM PHOSPHATE INJ 15 MMOL in SODIUM CHLORIDE 0.9% 250ML 250 ML IV STA (09:42)
--- NOTE | 2017-03-31 13:59 | Nephrology Progress Note ---
Nephrology Progress Note Date of Service Mar 31, 2017. Chief Complaint Hypocalcemia Subjective No acute events overnight. No complaints this afternoon. Paul denies any muscle cramps or weakness. His appetite is good. He denies pain. No shortness of breath. Review of Systems A complete review of systems was performed. Pertinent positives are noted above. All other systems are negative. Vital Signs Last 8 Hrs Date Time Temp Pulse Resp B/P (MAP) Pulse Ox O2 Delivery O2 Flow Rate FiO2 03/31/17 08:00 97 Room Air 03/31/17 07:38 36.9 76 20 112/67 (82) 97 Last Recorded Weight Weight (Kilograms): 63.700 Physical Exam General Appearance: WD/WN, no apparent distress Head: normocephalic, atraumatic Eyes: normal inspection, sclerae normal ENT: normal ENT inspection, pharynx normal Neck: supple, no JVD Respiratory/Chest: lungs clear, no respiratory distress, no accessory muscle use Cardiovascular: regular rate, rhythm, no gallop, no murmur Back: no CVA tenderness Abdomen/GI: non tender, soft Extremities/Musculoskelatal: normal inspection, no pedal edema Neurologic/Psych: alert, normal mood/affect Social History Drug Use: none Marital Status: Housing Status: lives with family (lives with son) 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 03/31/17 05:50 Test 03/31/17 05:50 Anion Gap 5.0 mmol/L (3-11) Est Creatinine Clear Calc Drug Dose 45.5 ml/min Estimated GFR () 74.0 Estimated GFR (Non- 63.9 BUN/Creatinine Ratio 6.4 (10-20) Calcium Level 6.2 mg/dl (8.5-10.1) Ionized Calcium 0.87 mmol/l (1.12-1.32) Phosphorus Level 2.0 mg/dl (2.5-4.9) Magnesium Level 1.8 mg/dl (1.8-2.4) Albumin 2.7 gm/dl (3.4-5.0) Allergies Coded Allergies: No Known Allergies (Unverified , 03/15/17) Medications Current Inpatient Medications Medications (Trade) Dose Ordered Sig/Jonathan Route Start Time Stop Time Status Last Admin Dose Admin Acetaminophen (Tylenol Tab) 650 mg Q4H PRN PO 03/15/17 14:15 04/14/17 14:14 Tamsulosin HCl (Flomax Cap) 0.8 mg HS PO 03/15/17 21:00 04/14/17 20:59 03/30/17 21:50 0.8 MG Miscellaneous Information (Order Awaiting Action) 1 ea QS N/A 03/15/17 16:00 04/14/17 15:59 Pantoprazole Sodium (Protonix Tab) 40 mg QAM PO 03/16/17 09:00 04/15/17 08:59 03/31/17 08:02 40 MG Ranitidine HCl (zANTac TAB) 300 mg HS PO 03/15/17 21:00 04/14/17 20:59 03/30/17 21:50 300 MG Polyethylene (Miralax Powder Packet) 17 gm DAILY PRN PO 03/15/17 15:00 04/14/17 14:59 Docusate Sodium (coLACE CAP) 100 mg BID PO 03/15/17 21:00 04/14/17 20:59 03/31/17 08:02 100 MG Bisacodyl (Dulcolax Supp) 10 mg DAILY PRN NM 03/15/17 15:00 04/14/17 14:59 Heparin Sodium (Porcine) (Heparin Sq 5000 Unit/0.5ml) 5,000 unit Q12 SQ 03/15/17 21:00 04/14/17 20:59 03/31/17 08:05 5,000 UNIT Nystatin (Mycostatin Powder) 1 appln BID EXT 03/15/17 21:00 04/14/17 20:59 03/31/17 08:03 1 APPLN Calcium Carbonate (Tums Chew Tab) 2,000 mg QID PO 03/16/17 17:00 04/15/17 08:59 03/31/17 12:31 2,000 MG Potassium/ Phosphorus/Sodium (Phospha 250 Neutral 155-852-130 Mg) 1 tab QID PO 03/16/17 17:00 04/15/17 16:59 03/31/17 12:30 1 TAB Calcium Carbonate (oS-Randy 500 TAB) 1,250 mg QID PO 03/18/17 09:00 04/17/17 08:59 03/31/17 12:30 1,250 MG Miscellaneous (Tap Water Enema) 1 ea Q2D PRN NM 03/18/17 13:30 04/17/17 13:29 Heparin Sodium (Porcine) (Heparin 10 Unit/ ml 5 ml Flush) 5 ml PRN PRN FLUSH 03/18/17 15:30 04/17/17 15:29 03/27/17 05:34 5 ML Heparin Sodium (Porcine) (Heparin 10 Unit/ ml 5 ml Flush) 5 ml PRN PRN FLUSH 03/29/17 11:00 04/28/17 10:59 Calcitriol (Rocaltrol Cap) 3 mcg QAM PO 03/30/17 08:00 04/17/17 08:59 03/31/17 08:01 3 MCG Calcium Gluconate 2000 mg/Sodium Chloride 520 ml @ 125 mls/hr Q4H10M IV 03/29/17 16:30 04/28/17 16:29 03/31/17 12:44 125 MLS/HR Hydrochlorothiazide (Hydrochlorothiazide Tab) 25 mg QAM PO 03/30/17 13:00 04/29/17 12:59 03/31/17 08:02 25 MG Impression (1) Hypocalcemia (2) Prostate cancer (3) Hypertension Mr. 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 He developed severe hypocalcemia following treatment with Denosumab. Renal function is normal based on eGFR. EKG documented new QTc prolongation. QTc has improved with treatment. 25OH D deficiency documented on presentation. This was treated with ergocalciferol 31071 IU and cholecalciferol. Calcitriol is being provided. Aggressive replacement with PO and IV calcium continues. The patient has associated hypomagnesemia. This is being treated with IV magnesium sulfate. Based on review of the literature, medium time to calcium jonny is 21 days and median time to correction of hypocalcemia is 71 days. The patient continues to require IV calcium gluconate. Recommendations -- Increase calcium gluconate infusion to 1 gram/hr (4000 mg/500 ml @ 125 ml/hr) -- Continue calcitriol 3 mcg daily -- Increase OsCal to 2500 QID -- Continue TUMS 2 grams TID -- Monitor magnesium and replace with IV mag as needed -- Monitor BMP with Mg and phosphorus daily -- Patient remains on K-phos replacement
[2017-03-31 15:49] VITALS: BP 125/70; PULSE 75; TEMP 36.6; O2SAT 98
[2017-03-31 16:00] VITALS: O2SAT 94
[2017-03-31] MEDS: TAMSULOSIN HCL 0.4 MG CAP PO SCH (21:04)
[2017-03-31] MEDS: RANITIDINE HCL 150 MG TAB PO SCH (21:04)
[2017-03-31 23:44] VITALS: BP 127/72; PULSE 70; TEMP 36.6; O2SAT 97
[2017-04-01] MEDS: SODIUM CHLORIDE 0.9% IV SCH ×5 (01:30→20:35)
[2017-04-01] MEDS: CALCIUM GLUCONATE IV SCH ×5 (01:30→20:35)
[2017-04-01 07:34] LABS: CALCIUM 7.3 mg/dl (8.5-10.1); CREATININE 0.92 mg/dl (0.60-1.40); POTASSIUM 4.5 mmol/L (3.5-5.1)
[2017-04-01 08:00] VITALS: O2SAT 96
[2017-04-01] MEDS: CALCITRIOL 0.25 MCG CAP PO SCH (08:05)
[2017-04-01] MEDS: POT PHOSPHATE MONOBASIC W/ SOD TAB PO SCH ×4 (08:07→20:38)
[2017-04-01] MEDS: HEPARIN SOD 5000 UNIT/0.5 ML CARP SQ SCH ×2 (08:07→20:41)
[2017-04-01] MEDS: DOCUSATE SODIUM 100 MG CAP PO SCH ×2 (08:08→20:36)
[2017-04-01] MEDS: CALCIUM CARBONATE 500 MG CHEWABLE PO SCH ×4 (08:08→20:37)
[2017-04-01] MEDS: HYDROCHLOROTHIAZIDE 25 MG TAB PO SCH (08:08)
[2017-04-01] MEDS: CALCIUM CARBONATE 1250MG TAB PO SCH ×4 (08:08→20:38)
[2017-04-01] MEDS: PANTOprazole SOD 40 MG TAB PO SCH (08:08)
[2017-04-01] MEDS: NYSTATIN POWDER 15GM BTL EXT SCH ×2 (08:11→20:35)
[2017-04-01 08:20] VITALS: BP 111/54; PULSE 74; TEMP 36.9; O2SAT 98
--- NOTE | 2017-04-01 11:19 | Nephrology Progress Note ---
Nephrology Progress Note Date of Service Apr 01, 2017. Chief Complaint Hypocalcemia Subjective No acute events overnight. Paul feels well this morning. He reports an aphthous ulcer forming. He has had several in the recent past. Appetite is good. No muscle cramps or tetany. No pain. Review of Systems A complete review of systems was performed. Pertinent positives are noted above. All other systems are negative. Vital Signs Last 8 Hrs Date Time Temp Pulse Resp B/P (MAP) Pulse Ox O2 Delivery O2 Flow Rate FiO2 04/01/17 08:20 36.9 74 16 111/54 (73) 98 Room Air 04/01/17 08:00 96 Room Air Last Recorded Weight Weight (Kilograms): 63.700 Physical Exam General Appearance: WD/WN, no apparent distress Head: normocephalic, atraumatic Eyes: normal inspection, sclerae normal ENT: normal ENT inspection, pharynx normal Neck: supple, no JVD Respiratory/Chest: lungs clear, no respiratory distress, no accessory muscle use Cardiovascular: regular rate, rhythm, no gallop, no murmur Abdomen/GI: non tender, soft Extremities/Musculoskelatal: normal inspection, no pedal edema Neurologic/Psych: alert, normal mood/affect Social History Drug Use: none Marital Status: Housing Status: lives with family (lives with son) 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 04/01/17 05:32 Test 04/01/17 05:32 04/01/17 08:19 Anion Gap 8.0 mmol/L (3-11) Est Creatinine Clear Calc Drug Dose 52.9 ml/min Estimated GFR () 88.8 Estimated GFR (Non- 76.6 BUN/Creatinine Ratio 8.4 (10-20) Calcium Level 7.3 mg/dl (8.5-10.1) Phosphorus Level 2.0 mg/dl (2.5-4.9) Magnesium Level 1.8 mg/dl (1.8-2.4) Thyroid Stimulating Hormone (TSH) 2.380 uIu/ml (0.300-4.500) Parathyroid Hormone (Intact) 427.3 pg/mL (18.4-80.1) Allergies Coded Allergies: No Known Allergies (Unverified , 03/15/17) Medications Current Inpatient Medications Medications (Trade) Dose Ordered Sig/Jonathan Route Start Time Stop Time Status Last Admin Dose Admin Acetaminophen (Tylenol Tab) 650 mg Q4H PRN PO 03/15/17 14:15 04/14/17 14:14 Tamsulosin HCl (Flomax Cap) 0.8 mg HS PO 03/15/17 21:00 04/14/17 20:59 03/31/17 21:04 0.8 MG Miscellaneous Information (Order Awaiting Action) 1 ea QS N/A 03/15/17 16:00 04/14/17 15:59 Pantoprazole Sodium (Protonix Tab) 40 mg QAM PO 03/16/17 09:00 04/15/17 08:59 04/01/17 08:08 40 MG Ranitidine HCl (zANTac TAB) 300 mg HS PO 03/15/17 21:00 04/14/17 20:59 03/31/17 21:04 300 MG Polyethylene (Miralax Powder Packet) 17 gm DAILY PRN PO 03/15/17 15:00 04/14/17 14:59 Docusate Sodium (coLACE CAP) 100 mg BID PO 03/15/17 21:00 04/14/17 20:59 04/01/17 08:08 100 MG Bisacodyl (Dulcolax Supp) 10 mg DAILY PRN NE 03/15/17 15:00 04/14/17 14:59 Heparin Sodium (Porcine) (Heparin Sq 5000 Unit/0.5ml) 5,000 unit Q12 SQ 03/15/17 21:00 04/14/17 20:59 04/01/17 08:07 5,000 UNIT Nystatin (Mycostatin Powder) 1 appln BID EXT 03/15/17 21:00 04/14/17 20:59 04/01/17 08:11 1 APPLN Calcium Carbonate (Tums Chew Tab) 2,000 mg QID PO 03/16/17 17:00 04/15/17 08:59 04/01/17 08:08 2,000 MG Potassium/ Phosphorus/Sodium (Phospha 250 Neutral 155-852-130 Mg) 1 tab QID PO 03/16/17 17:00 04/15/17 16:59 04/01/17 08:07 1 TAB Calcium Carbonate (oS-Randy 500 TAB) 1,250 mg QID PO 03/18/17 09:00 04/17/17 08:59 04/01/17 08:08 1,250 MG Miscellaneous (Tap Water Enema) 1 ea Q2D PRN NE 03/18/17 13:30 04/17/17 13:29 Heparin Sodium (Porcine) (Heparin 10 Unit/ ml 5 ml Flush) 5 ml PRN PRN FLUSH 03/18/17 15:30 04/17/17 15:29 03/27/17 05:34 5 ML Heparin Sodium (Porcine) (Heparin 10 Unit/ ml 5 ml Flush) 5 ml PRN PRN FLUSH 03/29/17 11:00 04/28/17 10:59 Calcitriol (Rocaltrol Cap) 3 mcg QAM PO 03/30/17 08:00 04/17/17 08:59 04/01/17 08:05 3 MCG Hydrochlorothiazide (Hydrochlorothiazide Tab) 25 mg QAM PO 03/30/17 13:00 04/29/17 12:59 04/01/17 08:08 25 MG Calcium Gluconate 4000 mg/Sodium Chloride 540 ml @ 125 mls/hr Q4H20M IV 03/31/17 17:00 04/30/17 16:59 04/01/17 06:22 125 MLS/HR Impression (1) Hypocalcemia (2) Prostate cancer (3) Hypertension Mr. 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 He developed severe hypocalcemia following treatment with Denosumab. Renal function is normal based on eGFR. EKG documented new QTc prolongation. QTc has improved with treatment. 25OH D deficiency documented on presentation. This was treated with ergocalciferol 12291 IU and cholecalciferol. Calcitriol is being provided. Aggressive replacement with PO and IV calcium continues. The patient has associated hypomagnesemia. This is being treated with IV magnesium sulfate. Based on review of the literature, medium time to calcium jonny is 21 days and median time to correction of hypocalcemia is 71 days. The patient continues to require IV calcium gluconate. Recommendations -- After an additional 4 gms of IV calcium gluconate, decrease infusate to 0.5 gm/hr -- Recheck serum calcium this afternoon -- Continue calcitriol 3 mcg daily -- Increase OsCal to 2500 QID -- Continue TUMS 2 grams TID -- Monitor magnesium and replace with IV mag as needed -- Monitor BMP with Mg and phosphorus daily -- Patient remains on K-phos replacement
[2017-04-01] MEDS ORDERED: SODIUM PHOSPHATE 3 MMOL/1 ML INFUSION IV STA (14:28)
--- NOTE | 2017-04-01 14:39 | Family Medicine Progress Note ---
Progress Note Date of Service Apr 01, 2017. Subjective Pt evaluation today including: conversation w/ patient no complaints no acute events Constitutional: No fever, No chills Eyes: No worsening of vision ENT: No hearing loss Respiratory: No cough, No sputum Cardiovascular: No chest pain Abdomen: No pain, No nausea Musculoskeletal: No joint pain Medications Medications (Trade) Dose Ordered Sig/Jonathan Route Start Time Stop Time Status Last Admin Dose Admin Calcium Gluconate 4000 mg/Sodium Chloride 540 ml @ 125 mls/hr Q4H20M IV 03/31/17 17:00 04/01/17 11:19 DC 04/01/17 11:14 125 MLS/HR Objective Vital Signs Date Time Temp Pulse Resp B/P (MAP) Pulse Ox O2 Delivery O2 Flow Rate FiO2 04/01/17 08:20 36.9 74 16 111/54 (73) 98 Room Air 04/01/17 08:00 96 Room Air 04/01/17 00:21 Room Air 03/31/17 23:44 36.6 70 20 127/72 (90) 97 Room Air 03/31/17 21:00 Room Air 03/31/17 16:00 94 Room Air 03/31/17 15:49 36.6 75 20 125/70 (88) 98 Physical Exam General Appearance: no apparent distress Eyes: PERRL, EOMI ENT: hearing grossly normal Neck: supple, no JVD Respiratory/Chest: lungs clear, normal breath sounds, no respiratory distress, no accessory muscle use Cardiovascular: regular rate, rhythm Abdomen: normal bowel sounds, non tender, soft Extremities: normal range of motion, no pedal edema Neurologic/Psychiatric: alert, normal mood/affect Laboratory Results Last 24 Hours Test 04/01/17 05:32 04/01/17 08:19 Sodium Level 141 mmol/L Potassium Level 4.5 mmol/L Chloride Level 111 mmol/L Carbon Dioxide Level 22 mmol/L Anion Gap 8.0 mmol/L Blood Urea Nitrogen 8 mg/dl Creatinine 0.92 mg/dl Est Creatinine Clear Calc Drug Dose 52.9 ml/min Estimated GFR () 88.8 Estimated GFR (Non- 76.6 BUN/Creatinine Ratio 8.4 Random Glucose 75 mg/dl Calcium Level 7.3 mg/dl Phosphorus Level 2.0 mg/dl Magnesium Level 1.8 mg/dl Thyroid Stimulating Hormone (TSH) 2.380 uIu/ml Parathyroid Hormone (Intact) 427.3 pg/mL Assessment and Plan Mr. Greene is an 81 year old man with a history of prostate cancer and osteoblastic mets that presented with fatigue and found to have severe hypocalcemia thought secondary to his Denosumab (03/02/2017). Hypocalcemia/hypophosphatemia - The patient has now been on 2 + weeks of IV calcium and oral calcium therapy, and despite constant calcium replacement the patient continues to be unable to increase his levels. The patient is being followed by nephrology, and will require hospitalization until his calcium levels can remain constant without IV calcium therapy. - Secondary to Denosumab injection in the setting of metastatic prostate CA - Calcium at 7.3 this morning - Daily calcium gluconate infusion 4000 mg q 4h - Continue oral Calcium and Calcitriol --> Calcitriol increased to 3 mcg PO QAM - Continue to monitor Calcium levels daily - Vitamin D level now wnl - Patient was started on hctz to help with Ca levels Hypomagnesemia/ Hypophosphatemia - Magnesium 2.0 - Phosphate 1.8, 9 mmol sodium phos given today, recheck AM UTI; Stenotrophomonas and enterococcus; chronic bey - Bactrim/ Amoxil course completed (10 day course) --> Initially treated with Rocephin on admission Superficial thrombophlebitis of right arm- resolved - Ultrasound confirmation of superficial thrombus involving the cephalic vein - Avoid IV line in right UE - Warm compress Prostate Ca with mets to bone - Continue tamsulosin, finasteride Intertrigo/thrush - Nystatin swish and swallow, nystatin powder for groin Seborrheic dermatitis - Completed 14 day course of Desonide for face CKD III stable - Avoid nephrotoxins where possible - Monitor with daily BMP DVT Prophylaxis - Heparin subq bid Code Status - DNR
[2017-04-01] MEDS ORDERED: SODIUM PHOSPHATE INJ 9 MMOL in SODIUM CHLORIDE 0.9% 250ML 250 ML IV ONE (14:45)
[2017-04-01 16:00] VITALS: O2SAT 97
[2017-04-01 16:04] VITALS: BP 128/66; PULSE 75; TEMP 37; O2SAT 98
[2017-04-01] MEDS: NYSTATIN SUSP 500,000 U/5 ML UDC PO SCH ×2 (17:31→20:36)
[2017-04-01 19:00] LABS: ALBUMIN 2.9 gm/dl (3.4-5.0); CALCIUM 7.6 mg/dl (8.5-10.1); CREATININE 1.15 mg/dl (0.60-1.40); POTASSIUM 4.6 mmol/L (3.5-5.1)
[2017-04-01 19:13] LABS: PHOSPHORUS 3.2 mg/dl (2.5-4.9)
[2017-04-01] MEDS: TAMSULOSIN HCL 0.4 MG CAP PO SCH (20:38)
[2017-04-01] MEDS: RANITIDINE HCL 150 MG TAB PO SCH (20:39)
[2017-04-01 22:51] VITALS: BP 133/68; PULSE 83; TEMP 36.9; O2SAT 97
[2017-04-02] MEDS: CALCIUM GLUCONATE IV SCH ×4 (00:53→12:36)
[2017-04-02] MEDS: SODIUM CHLORIDE 0.9% IV SCH ×4 (00:53→12:36)
[2017-04-02 06:12] LABS: CALCIUM 7.9 mg/dl (8.5-10.1); CREATININE 1.15 mg/dl (0.60-1.40); POTASSIUM 4.9 mmol/L (3.5-5.1)
[2017-04-02 07:19] VITALS: BP 119/53; PULSE 76; TEMP 36.6; O2SAT 97
[2017-04-02 08:00] VITALS: O2SAT 97
[2017-04-02] MEDS: NYSTATIN POWDER 15GM BTL EXT SCH ×2 (08:09→20:48)
[2017-04-02] MEDS: HYDROCHLOROTHIAZIDE 25 MG TAB PO SCH (08:09)
[2017-04-02] MEDS: DOCUSATE SODIUM 100 MG CAP PO SCH ×2 (08:09→20:48)
[2017-04-02] MEDS: NYSTATIN SUSP 500,000 U/5 ML UDC PO SCH ×4 (08:09→20:48)
[2017-04-02] MEDS: POT PHOSPHATE MONOBASIC W/ SOD TAB PO SCH ×4 (08:09→20:48)
[2017-04-02] MEDS: CALCIUM CARBONATE 1250MG TAB PO SCH ×4 (08:10→20:48)
[2017-04-02] MEDS: CALCITRIOL 0.25 MCG CAP PO SCH (08:10)
[2017-04-02] MEDS: CALCIUM CARBONATE 500 MG CHEWABLE PO SCH ×4 (08:10→20:48)
[2017-04-02] MEDS: PANTOprazole SOD 40 MG TAB PO SCH (08:10)
[2017-04-02] MEDS: HEPARIN SOD 5000 UNIT/0.5 ML CARP SQ SCH ×2 (08:15→20:56)
--- NOTE | 2017-04-02 10:44 | Nephrology Progress Note ---
Nephrology Progress Note Date of Service Apr 02, 2017. Chief Complaint Hypocalcemia Subjective No acute events overnight. No complaints this morning. Paul feels well. No muscle spams or tetany. No nausea. Appetite is good. Ambulating in hospital room. Review of Systems A complete review of systems was performed. Pertinent positives are noted above. All other systems are negative. Vital Signs Last 8 Hrs Date Time Temp Pulse Resp B/P (MAP) Pulse Ox O2 Delivery O2 Flow Rate FiO2 04/02/17 08:00 97 Room Air 04/02/17 07:19 36.6 76 18 119/53 (75) 97 Room Air Last Recorded Weight Weight (Kilograms): 63.700 Physical Exam General Appearance: WD/WN, no apparent distress Head: normocephalic, atraumatic Eyes: normal inspection, sclerae normal ENT: normal ENT inspection, pharynx normal Neck: supple, no JVD Respiratory/Chest: lungs clear, no respiratory distress, no accessory muscle use Cardiovascular: regular rate, rhythm, no gallop, no murmur Back: no CVA tenderness Abdomen/GI: non tender, soft Extremities/Musculoskelatal: normal inspection, no pedal edema Neurologic/Psych: alert, normal mood/affect Social History Drug Use: none Marital Status: Housing Status: lives with family (lives with son) 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 04/01/17 18:23 04/02/17 05:11 Test 04/01/17 18:23 04/02/17 05:11 Anion Gap 12.0 mmol/L (3-11) 6.0 mmol/L (3-11) Est Creatinine Clear Calc Drug Dose 42.3 ml/min 42.3 ml/min Estimated GFR () 67.8 67.8 Estimated GFR (Non- 58.5 58.5 BUN/Creatinine Ratio 6.9 (10-20) 8.1 (10-20) Calcium Level 7.6 mg/dl (8.5-10.1) 7.9 mg/dl (8.5-10.1) Phosphorus Level 3.2 mg/dl (2.5-4.9) Albumin 2.9 gm/dl (3.4-5.0) Ionized Calcium 1.14 mmol/l (1.12-1.32) Magnesium Level 1.8 mg/dl (1.8-2.4) Allergies Coded Allergies: No Known Allergies (Unverified , 03/15/17) Medications Current Inpatient Medications Medications (Trade) Dose Ordered Sig/Jonathan Route Start Time Stop Time Status Last Admin Dose Admin Acetaminophen (Tylenol Tab) 650 mg Q4H PRN PO 03/15/17 14:15 04/14/17 14:14 Tamsulosin HCl (Flomax Cap) 0.8 mg HS PO 03/15/17 21:00 04/14/17 20:59 04/01/17 20:38 0.8 MG Miscellaneous Information (Order Awaiting Action) 1 ea QS N/A 03/15/17 16:00 04/14/17 15:59 Pantoprazole Sodium (Protonix Tab) 40 mg QAM PO 03/16/17 09:00 04/15/17 08:59 04/02/17 08:10 40 MG Ranitidine HCl (zANTac TAB) 300 mg HS PO 03/15/17 21:00 04/14/17 20:59 04/01/17 20:39 300 MG Polyethylene (Miralax Powder Packet) 17 gm DAILY PRN PO 03/15/17 15:00 04/14/17 14:59 Docusate Sodium (coLACE CAP) 100 mg BID PO 03/15/17 21:00 04/14/17 20:59 04/02/17 08:09 100 MG Bisacodyl (Dulcolax Supp) 10 mg DAILY PRN [place] 03/15/17 15:00 04/14/17 14:59 Heparin Sodium (Porcine) (Heparin Sq 5000 Unit/0.5ml) 5,000 unit Q12 SQ 03/15/17 21:00 04/14/17 20:59 04/02/17 08:15 5,000 UNIT Nystatin (Mycostatin Powder) 1 appln BID EXT 03/15/17 21:00 04/14/17 20:59 04/02/17 08:09 1 APPLN Calcium Carbonate (Tums Chew Tab) 2,000 mg QID PO 03/16/17 17:00 04/15/17 08:59 04/02/17 08:10 2,000 MG Potassium/ Phosphorus/Sodium (Phospha 250 Neutral 155-852-130 Mg) 1 tab QID PO 03/16/17 17:00 04/15/17 16:59 04/02/17 08:09 1 TAB Calcium Carbonate (oS-Randy 500 TAB) 1,250 mg QID PO 03/18/17 09:00 04/17/17 08:59 04/02/17 08:10 1,250 MG Miscellaneous (Tap Water Enema) 1 ea Q2D PRN TN 03/18/17 13:30 04/17/17 13:29 Heparin Sodium (Porcine) (Heparin 10 Unit/ ml 5 ml Flush) 5 ml PRN PRN FLUSH 03/18/17 15:30 04/17/17 15:29 03/27/17 05:34 5 ML Heparin Sodium (Porcine) (Heparin 10 Unit/ ml 5 ml Flush) 5 ml PRN PRN FLUSH 03/29/17 11:00 04/28/17 10:59 Calcitriol (Rocaltrol Cap) 3 mcg QAM PO 03/30/17 08:00 04/17/17 08:59 04/02/17 08:10 3 MCG Hydrochlorothiazide (Hydrochlorothiazide Tab) 25 mg QAM PO 03/30/17 13:00 04/29/17 12:59 04/02/17 08:09 25 MG Calcium Gluconate 2000 mg/Sodium Chloride 520 ml @ 125 mls/hr Q4H10M IV 04/01/17 15:30 05/01/17 15:29 04/02/17 08:11 125 MLS/HR Nystatin (Mycostatin Susp) 5 ml QID PO 04/01/17 17:00 04/11/17 16:59 04/02/17 08:09 5 ML Impression (1) Hypocalcemia (2) Prostate cancer (3) Hypertension Mr. 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 He developed severe hypocalcemia following treatment with Denosumab. Renal function is normal based on eGFR. EKG documented new QTc prolongation. QTc has improved with treatment. 25OH D deficiency documented on presentation. This was treated with ergocalciferol 86496 IU and cholecalciferol. Calcitriol is being provided. Aggressive replacement with PO and IV calcium continues. The patient has associated hypomagnesemia. This is being treated with IV magnesium sulfate. Based on review of the literature, medium time to calcium jonny is 21 days and median time to correction of hypocalcemia is 71 days. The patient continues to require IV calcium gluconate. Recommendations -- Continue calcium gluconate at 0.5 gm/hr -- Recheck serum calcium this afternoon -- Continue calcitriol 3 mcg daily -- Increase OsCal to 2500 QID -- Continue TUMS 2 grams TID -- Monitor magnesium and replace with IV mag as needed -- Monitor BMP with Mg and phosphorus daily -- Patient remains on K-phos replacement
--- NOTE | 2017-04-02 14:13 | Hospitalist Progress Note ---
Hospitalist Progress Note Date of Service Apr 02, 2017. (Callie Arvizu ., [facility]) Subjective Pt evaluation today including: conversation w/ patient, physical exam, chart review, review of inpatient medication list Voiding: no voiding problems Mr. Greene feels well today. He ambulated the halls today. He has not had any muscle pain or tetany. ROS Constitutional: no chills, aches, sweats or fever Respiratory: no sob,cough, sputum, or wheezing Cardiac: no chest pain, palpitations, edema, orthopnea or lightheadedness GI: no abdominal pain, nausea, vomiting, diarrhea or constipation : no dysuria or hesitancy Extremities: no joint pain or weakness Skin: no rash All other systems reviewed and negative (Callie Arvizu CRNP) Medications Medications Administered Medications (Trade) Dose Ordered Sig/Jonathan Route Start Time Stop Time Status Last Admin Dose Admin Sodium Chloride 1,000 ml @ 125 mls/hr Q8H STAT IV 03/15/17 10:09 03/15/17 16:58 DC 03/15/17 13:23 125 MLS/HR Sodium Chloride 1,000 ml @ 999 mls/hr Q1H1M STAT IV 03/15/17 10:22 03/15/17 11:22 DC 03/15/17 10:22 999 MLS/HR Calcium Gluconate (Calcium Gluconate 10%) 1,000 mg NOW STAT IV 03/15/17 12:26 03/15/17 12:28 DC 03/15/17 12:48 1,000 MG Magnesium Sulfate (Magnesium Sulfate) 2 gm NOW STAT IV 03/15/17 12:26 03/15/17 12:28 DC 03/15/17 13:35 2 GM Ceftriaxone Sodium (Rocephin Inj) 1 gm NOW STAT IV 03/15/17 12:26 03/15/17 12:28 DC 03/15/17 13:22 1 GM Calcium Gluconate 1000 mg/Sodium Chloride 60 ml @ 240 mls/hr NOW STAT IV 03/15/17 16:06 03/15/17 16:20 DC 03/15/17 17:33 240 MLS/HR Tamsulosin HCl (Flomax Cap) 0.8 mg HS PO 03/15/17 21:00 04/14/17 20:59 04/01/17 20:38 0.8 MG Pantoprazole Sodium (Protonix Tab) 40 mg QAM PO 03/16/17 09:00 04/15/17 08:59 04/02/17 08:10 40 MG Ranitidine HCl (zANTac TAB) 300 mg HS PO 03/15/17 21:00 04/14/17 20:59 04/01/17 20:39 300 MG Ceftriaxone Sodium 1 gm/ Dextrose 50 ml @ 100 mls/hr Q24H IV 03/16/17 14:00 03/17/17 12:03 DC 03/16/17 13:03 100 MLS/HR Docusate Sodium (coLACE CAP) 100 mg BID PO 03/15/17 21:00 04/14/17 20:59 04/02/17 08:09 100 MG Heparin Sodium (Porcine) (Heparin Sq 5000 Unit/0.5ml) 5,000 unit Q12 SQ 03/15/17 21:00 04/14/17 20:59 04/02/17 08:15 5,000 UNIT Desonide (Desowen 0.05% Crm) 1 appln BID EXT 03/15/17 21:00 03/29/17 18:53 DC 03/29/17 08:17 1 APPLN Nystatin (Mycostatin Susp) 5 ml QID PO 03/15/17 17:00 03/25/17 16:59 DC 03/25/17 12:19 5 ML Nystatin (Mycostatin Powder) 1 appln BID EXT 03/15/17 21:00 04/14/17 20:59 04/02/17 08:09 1 APPLN Ergocalciferol (Vitamin D Cap) 50,000 interunit NOW ONCE PO 03/15/17 17:00 03/15/17 17:01 DC 03/15/17 17:32 50,000 INTERUNIT Calcitriol (Rocaltrol Cap) 0.25 mcg 1700 ONCE PO 03/15/17 17:00 03/15/17 17:01 DC 03/15/17 17:31 0.25 MCG Calcium Carbonate (Tums Chew Tab) 1,000 mg NOW ONCE PO 03/15/17 17:00 03/15/17 17:01 DC 03/15/17 17:32 1,000 MG Calcium Carbonate (Tums Chew Tab) 1,000 mg QAM PO 03/16/17 09:00 03/16/17 09:00 DC 03/16/17 07:59 1,000 MG Sodium Phosphate 15 mmol/Sodium Chloride 255 ml @ 102 mls/hr 1800 ONCE IV 03/15/17 18:00 03/15/17 20:29 DC 03/15/17 18:50 102 MLS/HR Calcium Gluconate 2000 mg/Sodium Chloride 70 ml @ 240 mls/hr 2030 ONCE IV 03/15/17 20:30 03/15/17 20:47 DC 03/16/17 00:15 240 MLS/HR Calcium Gluconate 3000 mg/Sodium Chloride 80 ml @ 160 mls/hr NOW ONCE IV 03/16/17 02:00 03/16/17 02:29 DC 03/16/17 02:05 160 MLS/HR Magnesium Sulfate 1 gm/Prmx 100 ml @ 100 mls/hr TODAY@0800,0900 IV 03/16/17 08:00 03/16/17 09:59 DC 03/16/17 10:22 100 MLS/HR Calcium Carbonate (Tums Chew Tab) 1,000 mg QID PO 03/16/17 09:00 03/16/17 15:24 DC 03/16/17 13:03 1,000 MG Calcium Gluconate 2000 mg/Sodium Chloride 70 ml @ 240 mls/hr 1000 ONCE IV 03/16/17 10:00 03/16/17 10:17 DC 03/16/17 11:57 240 MLS/HR Calcium Carbonate (Tums Chew Tab) 2,000 mg QID PO 03/16/17 17:00 04/15/17 08:59 04/02/17 12:32 2,000 MG Potassium/ Phosphorus/Sodium (Phospha 250 Neutral 155-852-130 Mg) 1 tab QID PO 03/16/17 17:00 04/15/17 16:59 04/02/17 12:32 1 TAB Sodium Phosphate 21 mmol/Sodium Chloride 507 ml @ 144 mls/hr ONE ONCE IV 03/16/17 15:30 03/16/17 19:01 DC 03/16/17 15:47 144 MLS/HR Calcium Gluconate 2000 mg/Sodium Chloride 70 ml @ 240 mls/hr NOW STAT IV 03/16/17 15:28 03/16/17 15:45 DC 03/16/17 15:47 240 MLS/HR Calcium Gluconate 1000 mg/Sodium Chloride 60 ml @ 240 mls/hr NOW STAT IV 03/16/17 17:12 03/16/17 17:26 DC 03/16/17 17:41 240 MLS/HR Calcium Gluconate 1000 mg/Sodium Chloride 60 ml @ 120 mls/hr NOW ONCE IV 03/16/17 19:45 03/16/17 20:14 DC 03/16/17 19:54 120 MLS/HR Calcium Gluconate 1000 mg/Sodium Chloride 60 ml @ 240 mls/hr NOW STAT IV 03/17/17 04:32 03/17/17 04:46 DC 03/17/17 04:51 240 MLS/HR Calcium Gluconate 3000 mg/Sodium Chloride 80 ml @ 160 mls/hr 0900 ONCE IV 03/17/17 09:00 03/17/17 09:29 DC 03/17/17 09:00 160 MLS/HR Magnesium Sulfate 1 gm/Prmx 100 ml @ 100 mls/hr 0930,1030 IV 03/17/17 09:30 03/17/17 11:29 DC 03/17/17 10:25 100 MLS/HR Cholecalciferol (Vitamin D Tab) 1,000 inter.unit QAM PO 03/18/17 09:00 03/18/17 09:00 DC 03/18/17 07:43 1,000 INTER.UNIT Cholecalciferol (Vitamin D Tab) 1,000 inter.unit 0942 ONCE PO 03/17/17 09:42 03/17/17 09:44 DC 03/17/17 10:22 1,000 INTER.UNIT Calcitriol (Rocaltrol Cap) 1 mcg NOW ONCE PO 03/17/17 09:45 03/17/17 09:55 DC 03/17/17 10:22 1 MCG Calcium Gluconate 3000 mg/Sodium Chloride 80 ml @ 160 mls/hr 1130 ONCE IV 03/17/17 11:30 03/17/17 11:59 DC 03/17/17 11:25 160 MLS/HR Cephalexin Monohydrate (Keflex Cap) 500 mg BID PO 03/17/17 13:00 03/17/17 19:12 DC 03/17/17 14:57 500 MG Calcium Gluconate 3000 mg/Sodium Chloride 80 ml @ 160 mls/hr 1500 ONCE IV 03/17/17 15:00 03/17/17 15:29 DC 03/17/17 14:59 160 MLS/HR Calcium Gluconate 3000 mg/Sodium Chloride 80 ml @ 240 mls/hr Q6H IV 03/17/17 22:00 03/18/17 08:45 DC 03/18/17 04:16 240 MLS/HR Calcium Gluconate 1000 mg/Sodium Chloride 60 ml @ 240 mls/hr NOW STAT IV 03/17/17 19:39 03/17/17 19:53 DC 03/17/17 20:32 240 MLS/HR Magnesium Sulfate 1 gm/Prmx 100 ml @ 100 mls/hr Q1H IV 03/18/17 09:30 03/18/17 11:29 DC 03/18/17 15:15 100 MLS/HR Cholecalciferol (Vitamin D Tab) 5,000 inter.unit QAM PO 03/18/17 09:00 03/26/17 12:23 DC 03/26/17 08:37 5,000 INTER.UNIT Calcitriol (Rocaltrol Cap) 1 mcg QAM PO 03/18/17 09:00 03/27/17 08:41 DC 03/27/17 07:56 1 MCG Calcium Gluconate 4000 mg/Sodium Chloride 90 ml @ 120 mls/hr 0900 ONCE IV 03/18/17 09:00 03/18/17 09:44 DC 03/18/17 08:54 120 MLS/HR Calcium Gluconate 4000 mg/Sodium Chloride 90 ml @ 120 mls/hr 1000 IV 03/18/17 10:00 03/18/17 11:00 DC 03/18/17 09:52 120 MLS/HR Calcium Carbonate (oS-Randy 500 TAB) 1,250 mg QID PO 03/18/17 09:00 04/17/17 08:59 04/02/17 12:32 1,250 MG Trimethoprim/ Sulfamethoxazole (Septra Ds 800/ 160MG Tab) 1 tab DAILY PO 03/19/17 09:00 03/29/17 08:59 DC 03/29/17 08:16 1 TAB Trimethoprim/ Sulfamethoxazole (Septra Ds 800/ 160MG Tab) 1 tab 1300 ONCE PO 03/18/17 13:00 03/18/17 13:01 DC 03/18/17 13:01 1 TAB Calcium Gluconate 3000 mg/Sodium Chloride 80 ml @ 160 mls/hr 1500 IV 03/18/17 15:00 03/18/17 15:29 DC 03/18/17 15:00 160 MLS/HR Heparin Sodium (Porcine) (Heparin 10 Unit/ ml 5 ml Flush) 5 ml PRN PRN FLUSH 03/18/17 15:30 04/17/17 15:29 03/27/17 05:34 5 ML Calcium Gluconate 4000 mg/Sodium Chloride 90 ml @ 120 mls/hr NOW STAT IV 03/18/17 21:35 03/18/17 22:19 DC 03/18/17 22:21 120 MLS/HR Calcium Gluconate 4000 mg/Sodium Chloride 90 ml @ 120 mls/hr ONE ONCE IV 03/19/17 00:00 03/19/17 00:44 DC 03/19/17 00:01 120 MLS/HR Calcium Gluconate 2000 mg/Sodium Chloride 70 ml @ 240 mls/hr 0800 ONCE IV 03/19/17 08:00 03/19/17 08:17 DC 03/19/17 08:48 240 MLS/HR Sodium Phosphate 15 mmol/Sodium Chloride 255 ml @ 88 mls/hr 0900 ONCE IV 03/19/17 09:00 03/19/17 11:53 DC 03/19/17 08:48 88 MLS/HR Amoxicillin (Amoxil Cap) 250 mg TID PO 03/19/17 21:00 03/24/17 20:59 DC 03/24/17 21:17 250 MG Amoxicillin (Amoxil Cap) 250 mg TODAY@1515 ONCE PO 03/19/17 15:15 03/19/17 15:23 DC 03/19/17 15:33 250 MG Calcium Gluconate 2000 mg/Sodium Chloride 70 ml @ 240 mls/hr NOW STAT IV 03/19/17 17:53 03/19/17 18:10 DC 03/19/17 18:12 240 MLS/HR Calcium Gluconate 2000 mg/Sodium Chloride 70 ml @ 140 mls/hr NOW ONCE IV 03/19/17 19:00 03/19/17 19:29 DC 03/19/17 19:23 140 MLS/HR Calcium Gluconate 4000 mg/Sodium Chloride 140 ml @ 140 mls/hr 0900 IV 03/20/17 09:00 03/20/17 12:00 DC 03/20/17 09:01 140 MLS/HR Magnesium Sulfate 1 gm/Prmx 100 ml @ 100 mls/hr Q1H IV 03/20/17 10:00 03/20/17 11:59 DC 03/20/17 11:13 100 MLS/HR Calcium Gluconate 4000 mg/Sodium Chloride 140 ml @ 140 mls/hr TODAY@1645 ONCE IV 03/20/17 16:45 03/20/17 17:44 DC 03/20/17 16:53 140 MLS/HR Calcium Gluconate 3000 mg/Dextrose 280 ml @ 125 mls/hr Q2H15M IV 03/21/17 10:30 03/21/17 12:44 DC 03/21/17 10:58 125 MLS/HR Calcium Gluconate 3000 mg/Sodium Chloride 80 ml @ 160 mls/hr 1630 ONCE IV 03/21/17 16:30 03/21/17 16:59 DC 03/21/17 16:36 160 MLS/HR Calcium Gluconate 4000 mg/Dextrose 290 ml @ 125 mls/hr Q24H IV 03/22/17 11:30 03/23/17 09:32 DC 03/22/17 12:32 125 MLS/HR Calcium Gluconate 4000 mg/Dextrose 290 ml @ 125 mls/hr Q2H20M ONCE IV 03/22/17 18:45 03/22/17 21:04 DC 03/22/17 19:16 125 MLS/HR Calcium Gluconate 4000 mg/Dextrose 290 ml @ 150 mls/hr Q1H56M IV 03/23/17 09:45 03/23/17 11:40 DC 03/23/17 10:22 150 MLS/HR Calcium Gluconate 4000 mg/Dextrose 290 ml @ 150 mls/hr Q1H56M ONCE IV 03/23/17 16:45 03/23/17 18:40 DC 03/23/17 17:00 150 MLS/HR Calcium Gluconate 4000 mg/Sodium Chloride 540 ml @ 125 mls/hr Q4H20M IV 03/24/17 09:45 03/25/17 09:44 DC 03/25/17 10:05 125 MLS/HR Calcium Gluconate 4000 mg/Sodium Chloride 540 ml @ 125 mls/hr Q4H20M IV 03/25/17 14:30 03/26/17 12:23 DC 03/26/17 09:59 125 MLS/HR Magnesium Sulfate 1 gm/Prmx 100 ml @ 100 mls/hr NOW STAT IV 03/26/17 14:41 03/26/17 15:40 DC 03/26/17 16:35 100 MLS/HR Calcitriol (Rocaltrol Cap) 2 mcg QAM PO 03/28/17 08:00 03/29/17 13:49 DC 03/29/17 08:15 2 MCG Calcium Gluconate 2000 mg/Sodium Chloride 520 ml @ 125 mls/hr Q4H10M IV 03/27/17 09:00 03/28/17 08:25 DC 03/28/17 05:36 125 MLS/HR Calcium Gluconate 14283 mg/Sodium Chloride 600 ml @ 60 mls/hr Q10H IV 03/28/17 09:00 03/29/17 08:58 DC 03/29/17 06:16 60 MLS/HR Potassium Phosphate 30 mmol/ Sodium Chloride 510 ml @ 88 mls/hr TODAY@1100 IV 03/29/17 11:00 03/29/17 16:48 DC 03/29/17 11:26 88 MLS/HR Calcitriol (Rocaltrol Cap) 3 mcg QAM PO 03/30/17 08:00 04/17/17 08:59 04/02/17 08:10 3 MCG Calcium Gluconate 2000 mg/Sodium Chloride 520 ml @ 125 mls/hr Q4H10M IV 03/29/17 16:30 03/31/17 15:59 DC 03/31/17 12:44 125 MLS/HR Magnesium Sulfate 1 gm/Prmx 100 ml @ 100 mls/hr Q1H IV 03/30/17 08:30 03/30/17 10:29 DC 03/30/17 11:49 100 MLS/HR Potassium Phosphate 15 mmol/ Sodium Chloride 255 ml @ 113.333 mls/hr ONE ONCE IV 03/30/17 08:30 03/30/17 10:44 DC 03/30/17 09:37 113.333 MLS/HR Hydrochlorothiazide (Hydrochlorothiazide Tab) 25 mg QAM PO 03/30/17 13:00 04/29/17 12:59 04/02/17 08:09 25 MG Calcium Gluconate 3000 mg/Sodium Chloride 130 ml @ 260 mls/hr NOW STAT IV 03/31/17 07:13 03/31/17 07:42 DC 03/31/17 07:53 260 MLS/HR Sodium Phosphate 15 mmol/Sodium Chloride 255 ml @ 85 mls/hr NOW STAT IV 03/31/17 09:42 03/31/17 12:41 DC 03/31/17 11:10 85 MLS/HR Calcium Gluconate 4000 mg/Sodium Chloride 540 ml @ 125 mls/hr Q4H20M IV 03/31/17 17:00 04/01/17 11:19 DC 04/01/17 11:14 125 MLS/HR Calcium Gluconate 2000 mg/Sodium Chloride 520 ml @ 125 mls/hr Q4H10M IV 04/01/17 15:30 04/02/17 13:24 DC 04/02/17 12:36 125 MLS/HR Sodium Phosphate 9 mmol/Sodium Chloride 253 ml @ 88 mls/hr TODAY@1445 ONCE IV 04/01/17 14:45 04/01/17 17:37 DC 04/01/17 15:42 88 MLS/HR Nystatin (Mycostatin Susp) 5 ml QID PO 04/01/17 17:00 04/11/17 16:59 04/02/17 12:32 5 ML (Callie Arvizu CRNP) Objective Vital Signs Date Time Temp Pulse Resp B/P (MAP) Pulse Ox O2 Delivery O2 Flow Rate FiO2 04/02/17 08:00 97 Room Air 04/02/17 07:19 36.6 76 18 119/53 (75) 97 Room Air 04/02/17 00:00 Room Air 04/01/17 22:51 36.9 83 18 133/68 (89) 97 Room Air 04/01/17 20:00 Room Air 04/01/17 16:04 37.0 75 20 128/66 (86) 98 04/01/17 16:00 97 Room Air (Callie Arvizu CRNP) Physical Exam Notes: General: no distress Eyes: normal inspection, PERLL Respiratory: chest non tender, clear to auscultation, normal breath sounds, no respiratory distress, no accessory muscle use Cardiac: regular rate and rhythm, no rub or gallop, no murmur, no edema, no jvd GI/: active bowel sounds, no abd pain or tenderness, soft, non distended Extremities: normal range of motion, normal strength, non tender Neuro/Psych: alert and oriented x 3, normal mood and affect Skin: normal color, dry (Callie Arvizu CRNP) Laboratory Results Last 24 Hours Test 04/01/17 18:23 04/02/17 05:11 Sodium Level 140 mmol/L 139 mmol/L Potassium Level 4.6 mmol/L 4.9 mmol/L Chloride Level 107 mmol/L 110 mmol/L Carbon Dioxide Level 21 mmol/L 23 mmol/L Anion Gap 12.0 mmol/L 6.0 mmol/L Blood Urea Nitrogen 8 mg/dl 9 mg/dl Creatinine 1.15 mg/dl 1.15 mg/dl Est Creatinine Clear Calc Drug Dose 42.3 ml/min 42.3 ml/min Estimated GFR () 67.8 67.8 Estimated GFR (Non- 58.5 58.5 BUN/Creatinine Ratio 6.9 8.1 Random Glucose 122 mg/dl 84 mg/dl Calcium Level 7.6 mg/dl 7.9 mg/dl Phosphorus Level 3.2 mg/dl Albumin 2.9 gm/dl Ionized Calcium 1.14 mmol/l Magnesium Level 1.8 mg/dl (Callie Arvizu CRNP) Assessment and Plan Mr. Grenee is an 81 year old man with a history of prostate cancer and osteoblastic mets that presented with fatigue and found to have severe hypocalcemia thought secondary to his Denosumab (03/02/2017). Hypocalcemia/hypophosphatemia - The patient has now been on 2 + weeks of IV calcium and oral calcium therapy - Secondary to Denosumab injection in the setting of metastatic prostate CA - Calcium at 7.9 this morning - corrected for albumin is 8.8 mg/dl - Daily calcium gluconate infusion 4000 mg q 4h - will stop and recheck Ca in the morning - Continue oral Calcium and Calcitriol - Vitamin D level now wnl - Patient was started on hctz to help with Ca levels - Nephrology consulted Hypomagnesemia/ Hypophosphatemia - Magnesium 1.8 today - Phosphate 3.2 today UTI; Stenotrophomonas and enterococcus; chronic bey - Bactrim/ Amoxil course completed (10 day course) --> Initially treated with Rocephin on admission Superficial thrombophlebitis of right arm- resolved - Ultrasound confirmation of superficial thrombus involving the cephalic vein - Avoid IV line in right UE - Warm compress Prostate Ca with mets to bone - Continue tamsulosin, finasteride Intertrigo/thrush - Nystatin swish and swallow, nystatin powder for groin Seborrheic dermatitis - Completed 14 day course of Desonide for face CKD III stable - Avoid nephrotoxins where possible - Monitor with daily BMP DVT Prophylaxis - Heparin subq bid Code Status - DNR (Callie Arvizu CRNP) Hypocalcemia/hypophosphatemia Secondary to Denosumab injection in the setting of metastatic prostate CA - Calcium at 7.9 this morning - corrected for albumin is 8.8 mg/dl - Daily calcium gluconate infusion 4000 mg q 4h - will stop 04/02, continue oral Calcium and Calcitriol and recheck Ca in the morning Vitamin D level now wnl - Patient was started on hctz to help with Ca levels, Nephrology following Hypomagnesemia/ Hypophosphatemia, replete UTI; Stenotrophomonas and enterococcus; chronic bey - Bactrim/ Amoxil course completed (10 day course) --> Initially treated with Rocephin on admission Superficial thrombophlebitis of right arm- resolved Avoid IV line in right UE, no further symptoms Prostate Ca with mets to bone- tamsulosin, finasteride Intertrigo/thrush- Nystatin swish and swallow, nystatin powder for groin Seborrheic dermatitis resolved after 14 day course of Desonide for face CKD III stable- Avoid nephrotoxins where possible DVT Prophylaxis- Heparin subq bid - DNR (Joe Moran M.D.)
[2017-04-02 16:33] VITALS: BP 114/61; PULSE 79; TEMP 36.7; O2SAT 97
[2017-04-02 17:04] LABS: CALCIUM 7.8 mg/dl (8.5-10.1); CREATININE 1.34 mg/dl (0.60-1.40); POTASSIUM 4.6 mmol/L (3.5-5.1)
[2017-04-02] MEDS: TAMSULOSIN HCL 0.4 MG CAP PO SCH (20:48)
[2017-04-02] MEDS: RANITIDINE HCL 150 MG TAB PO SCH (20:48)
[2017-04-02 23:13] VITALS: BP 123/52; PULSE 82; TEMP 36.7; O2SAT 94
[2017-04-03 07:16] LABS: CALCIUM 6.8 mg/dl (8.5-10.1); CREATININE 0.99 mg/dl (0.60-1.40); POTASSIUM 4.7 mmol/L (3.5-5.1)
[2017-04-03 07:41] VITALS: BP 102/61; PULSE 77; TEMP 36.9; O2SAT 96
[2017-04-03 08:00] VITALS: O2SAT 96
[2017-04-03] MEDS: NYSTATIN SUSP 500,000 U/5 ML UDC PO SCH ×4 (08:27→20:53)
[2017-04-03] MEDS: CALCIUM CARBONATE 1250MG TAB PO SCH ×4 (08:28→20:53)
[2017-04-03] MEDS: DOCUSATE SODIUM 100 MG CAP PO SCH ×2 (08:28→20:53)
[2017-04-03] MEDS: POT PHOSPHATE MONOBASIC W/ SOD TAB PO SCH ×4 (08:28→20:53)
[2017-04-03] MEDS: PANTOprazole SOD 40 MG TAB PO SCH (08:28)
[2017-04-03] MEDS: CALCITRIOL 0.25 MCG CAP PO SCH (08:28)
[2017-04-03] MEDS: NYSTATIN POWDER 15GM BTL EXT SCH ×2 (08:28→20:00)
[2017-04-03] MEDS: CALCIUM CARBONATE 500 MG CHEWABLE PO SCH ×4 (08:28→20:53)
[2017-04-03] MEDS: HYDROCHLOROTHIAZIDE 25 MG TAB PO SCH (08:29)
[2017-04-03] MEDS ORDERED: CALCIUM GLUCONATE IV SCH (08:30)
[2017-04-03] MEDS ORDERED: SODIUM CHLORIDE 0.9% IV SCH (08:30)
[2017-04-03] MEDS: HEPARIN SOD 5000 UNIT/0.5 ML CARP SQ SCH ×2 (08:40→21:04)
--- NOTE | 2017-04-03 11:14 | Nephrology Progress Note ---
Nephrology Progress Note Date of Service Apr 03, 2017. Chief Complaint Hypocalcemia Subjective No acute events overnight. No complaints this morning. No muscle spasm or tetany. Appetite is good. No fevers or chills. Denies pain. Review of Systems A complete review of systems was performed. Pertinent positives are noted above. All other systems are negative. Vital Signs Last 8 Hrs Date Time Temp Pulse Resp B/P (MAP) Pulse Ox O2 Delivery O2 Flow Rate FiO2 04/03/17 08:00 96 Room Air 04/03/17 07:41 36.9 77 18 102/61 (75) 96 Room Air Last Recorded Weight Weight (Kilograms): 63.700 Physical Exam General Appearance: WD/WN, no apparent distress Head: normocephalic, atraumatic Eyes: normal inspection, sclerae normal ENT: normal ENT inspection, pharynx normal Neck: supple, no JVD Respiratory/Chest: lungs clear, no respiratory distress, no accessory muscle use Cardiovascular: regular rate, rhythm, no gallop, no murmur Back: no CVA tenderness Abdomen/GI: non tender, soft Extremities/Musculoskelatal: normal inspection, no pedal edema Neurologic/Psych: alert, normal mood/affect Social History Drug Use: none Marital Status: Housing Status: lives with family (lives with son) 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 04/02/17 16:28 04/03/17 05:41 Test 04/02/17 16:28 04/03/17 05:41 Anion Gap 7.0 mmol/L (3-11) 6.0 mmol/L (3-11) Est Creatinine Clear Calc Drug Dose 36.3 ml/min 49.2 ml/min Estimated GFR () 56.4 81.3 Estimated GFR (Non- 48.6 70.1 BUN/Creatinine Ratio 7.4 (10-20) 12.4 (10-20) Calcium Level 7.8 mg/dl (8.5-10.1) 6.8 mg/dl (8.5-10.1) Allergies Coded Allergies: No Known Allergies (Unverified , 03/15/17) Medications Current Inpatient Medications Medications (Trade) Dose Ordered Sig/Jonathan Route Start Time Stop Time Status Last Admin Dose Admin Acetaminophen (Tylenol Tab) 650 mg Q4H PRN PO 03/15/17 14:15 3/3/18 14:14 Tamsulosin HCl (Flomax Cap) 0.8 mg HS PO 03/15/17 21:00 04/14/17 20:59 04/02/17 20:48 0.8 MG Miscellaneous Information (Order Awaiting Action) 1 ea QS N/A 03/15/17 16:00 04/14/17 15:59 Pantoprazole Sodium (Protonix Tab) 40 mg QAM PO 03/16/17 09:00 04/15/17 08:59 04/03/17 08:28 40 MG Ranitidine HCl (zANTac TAB) 300 mg HS PO 03/15/17 21:00 04/14/17 20:59 04/02/17 20:48 300 MG Polyethylene (Miralax Powder Packet) 17 gm DAILY PRN PO 03/15/17 15:00 04/14/17 14:59 Docusate Sodium (coLACE CAP) 100 mg BID PO 03/15/17 21:00 04/14/17 20:59 04/03/17 08:28 100 MG Bisacodyl (Dulcolax Supp) 10 mg DAILY PRN AK 03/15/17 15:00 04/14/17 14:59 Heparin Sodium (Porcine) (Heparin Sq 5000 Unit/0.5ml) 5,000 unit Q12 SQ 03/15/17 21:00 04/14/17 20:59 04/03/17 08:40 5,000 UNIT Nystatin (Mycostatin Powder) 1 appln BID EXT 03/15/17 21:00 04/14/17 20:59 04/03/17 08:28 1 APPLN Calcium Carbonate (Tums Chew Tab) 2,000 mg QID PO 03/16/17 17:00 04/15/17 08:59 04/03/17 08:28 2,000 MG Potassium/ Phosphorus/Sodium (Phospha 250 Neutral 155-852-130 Mg) 1 tab QID PO 03/16/17 17:00 04/15/17 16:59 04/03/17 08:28 1 TAB Calcium Carbonate (oS-Randy 500 TAB) 1,250 mg QID PO 03/18/17 09:00 04/17/17 08:59 04/03/17 08:28 1,250 MG Miscellaneous (Tap Water Enema) 1 ea Q2D PRN AK 03/18/17 13:30 04/17/17 13:29 Heparin Sodium (Porcine) (Heparin 10 Unit/ ml 5 ml Flush) 5 ml PRN PRN FLUSH 03/18/17 15:30 04/17/17 15:29 03/27/17 05:34 5 ML Heparin Sodium (Porcine) (Heparin 10 Unit/ ml 5 ml Flush) 5 ml PRN PRN FLUSH 03/29/17 11:00 04/28/17 10:59 Calcitriol (Rocaltrol Cap) 3 mcg QAM PO 03/30/17 08:00 04/17/17 08:59 04/03/17 08:28 3 MCG Hydrochlorothiazide (Hydrochlorothiazide Tab) 25 mg QAM PO 03/30/17 13:00 04/29/17 12:59 04/03/17 08:29 25 MG Nystatin (Mycostatin Susp) 5 ml QID PO 04/01/17 17:00 04/11/17 16:59 04/03/17 08:27 5 ML Calcium Gluconate 4000 mg/Sodium Chloride 540 ml @ 125 mls/hr Q4H20M IV 04/03/17 08:30 04/03/17 12:49 04/03/17 08:29 125 MLS/HR Impression (1) Hypocalcemia (2) Prostate cancer (3) Hypertension Mr. 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 He developed severe hypocalcemia following treatment with Denosumab. Renal function is normal based on eGFR. EKG documented new QTc prolongation which improved with treatment. 25OH D deficiency documented on presentation. This was treated with ergocalciferol 28866 IU and cholecalciferol. Calcitriol is being provided. Aggressive replacement with PO and IV calcium continues. The patient has associated hypomagnesemia. This is being treated with IV magnesium sulfate. Based on review of the literature, medium time to calcium jonny is 21 days and median time to correction of hypocalcemia is 71 days. The patient continues to require IV calcium gluconate. Recommendations -- Serum calcium dropped after IV stopped overnight -- Continue calcium gluconate at 1 gm/hr -- Recheck serum calcium this afternoon -- Continue calcitriol 3 mcg daily -- Increase OsCal to 2500 QID -- Continue TUMS 2 grams TID -- Monitor magnesium and replace with IV mag as needed -- Monitor BMP with Mg and phosphorus daily -- Patient remains on K-phos replacement
[2017-04-03 16:12] VITALS: BP 115/67; PULSE 84; TEMP 36.9; O2SAT 96
[2017-04-03 17:09] LABS: CALCIUM 6.5 mg/dl (8.5-10.1); CREATININE 1.14 mg/dl (0.60-1.40); PHOSPHORUS 2.6 mg/dl (2.5-4.9); POTASSIUM 4.6 mmol/L (3.5-5.1)
--- NOTE | 2017-04-03 17:10 | Progress Note ---
Subjective Date of Service: Apr 03, 2017. Subjective this pt is pleasant and has no complaints we are trying to arrange an alternative to hospitalization for calcium repletion Problem List Medical Problems: (1) Dehydration Status: Acute (2) Failure to thrive Status: Acute (3) Hypomagnesemia Status: Acute (4) UTI (urinary tract infection) Status: Acute (5) Vomiting Status: Acute Review of Systems Constitutional: No fever, No chills, No weakness, No fatigue Respiratory: No cough, No shortness of breath Cardiac: No chest pain, No edema Abdomen: No pain, No vomiting, No diarrhea Musculoskeletal: No joint pain, No muscle pain Male : No dysuria, No incontinence Psychiatric: No depression symptoms, No anxiety Objective Vital Signs Date Time Temp Pulse Resp B/P (MAP) Pulse Ox O2 Delivery O2 Flow Rate FiO2 04/03/17 16:12 36.9 84 20 115/67 (83) 96 Room Air 04/03/17 15:51 Room Air 04/03/17 14:06 Room Air 04/03/17 08:00 96 Room Air 04/03/17 07:41 36.9 77 18 102/61 (75) 96 Room Air 04/03/17 00:00 Room Air 04/02/17 23:13 36.7 82 18 123/52 (75) 94 Room Air Physical Exam General Appearance: WD/WN, no apparent distress Eyes: normal inspection, sclerae normal Neck: supple, no JVD Respiratory/Chest: chest non-tender, lungs clear, normal breath sounds Cardiovascular: regular rate, rhythm, no murmur Abdomen: normal bowel sounds, non tender, soft Extremities: no pedal edema, no calf tenderness Neurologic/Psychiatric: alert, oriented x 3 Laboratory Results Last 24 Hours Test 04/03/17 05:41 04/03/17 16:27 Sodium Level 140 mmol/L Potassium Level 4.7 mmol/L Chloride Level 109 mmol/L Carbon Dioxide Level 25 mmol/L Anion Gap 6.0 mmol/L Blood Urea Nitrogen 12 mg/dl Creatinine 0.99 mg/dl Est Creatinine Clear Calc Drug Dose 49.2 ml/min Estimated GFR () 81.3 Estimated GFR (Non- 70.1 BUN/Creatinine Ratio 12.4 Random Glucose 80 mg/dl Calcium Level 6.8 mg/dl Assessment and Plan Hypocalcemia/hypophosphatemia Secondary to Denosumab injection in the setting of metastatic prostate CA - Calcium dropped once stopped iv infusion. this was restarted by nephrology, - Daily calcium gluconate infusion 4000 mg q 4h - will stop 04/02, continue oral Calcium and Calcitriol and recheck Ca in the morning Vitamin D level now wnl - Patient was started on hctz to help with Ca levels, Nephrology following Hypomagnesemia/ Hypophosphatemia, repleted UTI; Stenotrophomonas and enterococcus; chronic bey - Bactrim/ Amoxil course completed (10 day course) --> Initially treated with Rocephin on admission Superficial thrombophlebitis of right arm- resolved Avoid IV line in right UE, symptoms resolved Prostate Ca with mets to bone- tamsulosin, finasteride Intertrigo/thrush-improving with Nystatin swish and swallow, nystatin powder for groin Seborrheic dermatitis resolved after 14 day course of Desonide for face CKD III remains stable- Avoid nephrotoxins where possible DVT Prophylaxis- Heparin subq bid - DNR Case management to assist with possible arrangement of home infusion nocturnally via picc line Continued [facility] stay due to: multiple IV medications needed Discharge planning: uncertain
[2017-04-03] MEDS: MAGNESIUM SULFATE 1GM / D5W 1 GM in PREMIXED IN D5W 100 ML IV SCH ×2 (17:56→19:02)
[2017-04-03] MEDS ORDERED: CALCIUM GLUCONATE IV ONE (18:00)
[2017-04-03] MEDS ORDERED: SODIUM CHLORIDE 0.9% IV ONE (18:00)
[2017-04-03] MEDS: TAMSULOSIN HCL 0.4 MG CAP PO SCH (20:53)
[2017-04-03] MEDS: RANITIDINE HCL 150 MG TAB PO SCH (20:53)
[2017-04-03] MEDS: SODIUM CHLORIDE 0.9% IV SCH (23:20)
[2017-04-03] MEDS: CALCIUM GLUCONATE IV SCH (23:20)
[2017-04-04 01:31] VITALS: BP 107/56; PULSE 83; TEMP 36.9; O2SAT 95
[2017-04-04] MEDS: CALCIUM GLUCONATE IV SCH ×5 (03:39→21:29)
[2017-04-04] MEDS: SODIUM CHLORIDE 0.9% IV SCH ×5 (03:39→21:29)
[2017-04-04 06:47] LABS: CALCIUM 7.4 mg/dl (8.5-10.1); CREATININE 1.03 mg/dl (0.60-1.40); POTASSIUM 4.6 mmol/L (3.5-5.1)
[2017-04-04 07:03] VITALS: BP 112/64; PULSE 81; TEMP 36.8; O2SAT 97
[2017-04-04] MEDS: NYSTATIN POWDER 15GM BTL EXT SCH ×2 (08:14→20:37)
[2017-04-04] MEDS: POT PHOSPHATE MONOBASIC W/ SOD TAB PO SCH ×4 (08:15→20:39)
[2017-04-04] MEDS: PANTOprazole SOD 40 MG TAB PO SCH (08:15)
[2017-04-04] MEDS: CALCITRIOL 0.25 MCG CAP PO SCH (08:15)
[2017-04-04] MEDS: NYSTATIN SUSP 500,000 U/5 ML UDC PO SCH ×4 (08:15→20:37)
[2017-04-04] MEDS: CALCIUM CARBONATE 1250MG TAB PO SCH ×4 (08:15→20:38)
[2017-04-04] MEDS: DOCUSATE SODIUM 100 MG CAP PO SCH ×2 (08:15→20:38)
[2017-04-04] MEDS: HYDROCHLOROTHIAZIDE 25 MG TAB PO SCH (08:15)
[2017-04-04] MEDS: CALCIUM CARBONATE 500 MG CHEWABLE PO SCH ×4 (08:16→20:40)
[2017-04-04] MEDS: HEPARIN SOD 5000 UNIT/0.5 ML CARP SQ SCH ×2 (08:21→21:02)
--- NOTE | 2017-04-04 10:54 | Nephrology Progress Note ---
Nephrology Progress Note Date of Service Apr 04, 2017. Chief Complaint Hypocalcemia Subjective No acute events overnight. No complaints this morning. Denies pain. No shortness of breath. No chest pain. Denies fevers or chills. Appetite is good. No abdominal pain. Review of Systems A complete review of systems was performed. Pertinent positives are noted above. All other systems are negative. Vital Signs Last 8 Hrs Date Time Temp Pulse Resp B/P (MAP) Pulse Ox O2 Delivery O2 Flow Rate FiO2 04/04/17 08:30 Room Air 04/04/17 07:03 36.8 81 18 112/64 (80) 97 Room Air Last Recorded Weight Weight (Kilograms): 63.700 Physical Exam General Appearance: WD/WN, no apparent distress Head: normocephalic, atraumatic Eyes: normal inspection, sclerae normal ENT: normal ENT inspection, pharynx normal Neck: supple, no JVD Respiratory/Chest: lungs clear, no respiratory distress, no accessory muscle use Cardiovascular: regular rate, rhythm, no murmur Back: no CVA tenderness Abdomen/GI: non tender, soft Extremities/Musculoskelatal: normal inspection, no pedal edema Neurologic/Psych: alert, normal mood/affect Social History Drug Use: none Marital Status: Housing Status: lives with family (lives with son) 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 04/03/17 16:27 04/04/17 05:45 Test 04/03/17 16:27 04/04/17 05:45 Anion Gap 7.0 mmol/L (3-11) 6.0 mmol/L (3-11) Est Creatinine Clear Calc Drug Dose 42.7 ml/min 47.3 ml/min Estimated GFR () 68.5 77.5 Estimated GFR (Non- 59.1 66.9 BUN/Creatinine Ratio 11.0 (10-20) 10.2 (10-20) Calcium Level 6.5 mg/dl (8.5-10.1) 7.4 mg/dl (8.5-10.1) Phosphorus Level 2.6 mg/dl (2.5-4.9) Magnesium Level 1.6 mg/dl (1.8-2.4) 1.9 mg/dl (1.8-2.4) Albumin 3.0 gm/dl (3.4-5.0) Allergies Coded Allergies: No Known Allergies (Unverified , 03/15/17) Medications Current Inpatient Medications Medications (Trade) Dose Ordered Sig/Jonathan Route Start Time Stop Time Status Last Admin Dose Admin Acetaminophen (Tylenol Tab) 650 mg Q4H PRN PO 03/15/17 14:15 04/14/17 14:14 Tamsulosin HCl (Flomax Cap) 0.8 mg HS PO 03/15/17 21:00 04/14/17 20:59 04/03/17 20:53 0.8 MG Miscellaneous Information (Order Awaiting Action) 1 ea QS N/A 03/15/17 16:00 04/14/17 15:59 Pantoprazole Sodium (Protonix Tab) 40 mg QAM PO 03/16/17 09:00 04/15/17 08:59 04/04/17 08:15 40 MG Ranitidine HCl (zANTac TAB) 300 mg HS PO 03/15/17 21:00 04/14/17 20:59 04/03/17 20:53 300 MG Polyethylene (Miralax Powder Packet) 17 gm DAILY PRN PO 03/15/17 15:00 04/14/17 14:59 Docusate Sodium (coLACE CAP) 100 mg BID PO 03/15/17 21:00 04/14/17 20:59 04/04/17 08:15 100 MG Bisacodyl (Dulcolax Supp) 10 mg DAILY PRN ID 03/15/17 15:00 04/14/17 14:59 Heparin Sodium (Porcine) (Heparin Sq 5000 Unit/0.5ml) 5,000 unit Q12 SQ 03/15/17 21:00 04/14/17 20:59 04/04/17 08:21 5,000 UNIT Nystatin (Mycostatin Powder) 1 appln BID EXT 03/15/17 21:00 04/14/17 20:59 04/04/17 08:14 1 APPLN Calcium Carbonate (Tums Chew Tab) 2,000 mg QID PO 03/16/17 17:00 04/15/17 08:59 04/04/17 08:16 2,000 MG Potassium/ Phosphorus/Sodium (Phospha 250 Neutral 155-852-130 Mg) 1 tab QID PO 03/16/17 17:00 04/15/17 16:59 04/04/17 08:15 1 TAB Calcium Carbonate (oS-Randy 500 TAB) 1,250 mg QID PO 03/18/17 09:00 04/17/17 08:59 04/04/17 08:15 1,250 MG Miscellaneous (Tap Water Enema) 1 ea Q2D PRN ID 03/18/17 13:30 04/17/17 13:29 Heparin Sodium (Porcine) (Heparin 10 Unit/ ml 5 ml Flush) 5 ml PRN PRN FLUSH 03/18/17 15:30 04/17/17 15:29 04/03/17 22:10 5 ML Heparin Sodium (Porcine) (Heparin 10 Unit/ ml 5 ml Flush) 5 ml PRN PRN FLUSH 03/29/17 11:00 04/28/17 10:59 Calcitriol (Rocaltrol Cap) 3 mcg QAM PO 03/30/17 08:00 04/17/17 08:59 04/04/17 08:15 3 MCG Hydrochlorothiazide (Hydrochlorothiazide Tab) 25 mg QAM PO 03/30/17 13:00 04/29/17 12:59 04/04/17 08:15 25 MG Nystatin (Mycostatin Susp) 5 ml QID PO 04/01/17 17:00 04/11/17 16:59 04/04/17 08:15 5 ML Calcium Gluconate 4000 mg/Sodium Chloride 540 ml @ 125 mls/hr Q4H20M IV 04/03/17 23:00 05/03/17 22:59 04/04/17 08:14 125 MLS/HR Impression (1) Hypocalcemia (2) Prostate cancer (3) Hypertension Mr. 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 He developed severe hypocalcemia following treatment with Denosumab. Renal function is normal based on eGFR. EKG documented new QTc prolongation which improved with treatment. 25OH D deficiency documented on presentation. This was treated with ergocalciferol 64249 IU and cholecalciferol. Calcitriol is being provided. Aggressive replacement with PO and IV calcium continues. The patient has associated hypomagnesemia. This is being treated with IV magnesium sulfate. Based on review of the literature, medium time to calcium jonny is 21 days and median time to correction of hypocalcemia is 71 days. The patient continues to require IV calcium gluconate. Recommendations -- Serum calcium stable -- Plan of care for possible continued therapy at home discussed with Dr. Moran this morning -- Continue calcium gluconate at 0.5-1 gm/hr (12 grams provided yesterday) -- Recheck serum calcium this afternoon -- Continue calcitriol 3 mcg daily -- Increase OsCal to 2500 QID -- Continue TUMS 2 grams TID -- Monitor magnesium and replace with IV mag as needed -- Monitor BMP with Mg and phosphorus daily
[2017-04-04 11:41] VITALS: BP 109/58; PULSE 87; TEMP 36.8; O2SAT 97
[2017-04-04 14:38] VITALS: BP 124/71; PULSE 86; TEMP 36.9; O2SAT 98
[2017-04-04 16:00] VITALS: O2SAT 98
--- NOTE | 2017-04-04 16:46 | Hospitalist Progress Note ---
Hospitalist Progress Note Date of Service Apr 04, 2017. (Callie Arvizu .ALMA ROSA) Subjective Pt evaluation today including: conversation w/ patient, physical exam, chart review, lab review, review of inpatient medication list Voiding: no voiding problems Mr. Greene is feeling well. No muscle aches or tetany ROS Constitutional: no chills, aches, sweats or fever Respiratory: no sob,cough, sputum, or wheezing Cardiac: no chest pain, palpitations, edema, orthopnea or lightheadedness GI: no abdominal pain, nausea, vomiting, diarrhea or constipation : no dysuria or hesitancy Extremities: no joint pain or weakness Skin: no rash All other systems reviewed and negative (Callie Arvizu CRNP) Medications Medications Administered Medications (Trade) Dose Ordered Sig/Jonathan Route Start Time Stop Time Status Last Admin Dose Admin Sodium Chloride 1,000 ml @ 125 mls/hr Q8H STAT IV 03/15/17 10:09 03/15/17 16:58 DC 03/15/17 13:23 125 MLS/HR Sodium Chloride 1,000 ml @ 999 mls/hr Q1H1M STAT IV 03/15/17 10:22 03/15/17 11:22 DC 03/15/17 10:22 999 MLS/HR Calcium Gluconate (Calcium Gluconate 10%) 1,000 mg NOW STAT IV 03/15/17 12:26 03/15/17 12:28 DC 03/15/17 12:48 1,000 MG Magnesium Sulfate (Magnesium Sulfate) 2 gm NOW STAT IV 03/15/17 12:26 03/15/17 12:28 DC 03/15/17 13:35 2 GM Ceftriaxone Sodium (Rocephin Inj) 1 gm NOW STAT IV 03/15/17 12:26 03/15/17 12:28 DC 03/15/17 13:22 1 GM Calcium Gluconate 1000 mg/Sodium Chloride 60 ml @ 240 mls/hr NOW STAT IV 03/15/17 16:06 03/15/17 16:20 DC 03/15/17 17:33 240 MLS/HR Tamsulosin HCl (Flomax Cap) 0.8 mg HS PO 03/15/17 21:00 04/14/17 20:59 04/03/17 20:53 0.8 MG Pantoprazole Sodium (Protonix Tab) 40 mg QAM PO 03/16/17 09:00 04/15/17 08:59 04/04/17 08:15 40 MG Ranitidine HCl (zANTac TAB) 300 mg HS PO 03/15/17 21:00 04/14/17 20:59 04/03/17 20:53 300 MG Ceftriaxone Sodium 1 gm/ Dextrose 50 ml @ 100 mls/hr Q24H IV 03/16/17 14:00 03/17/17 12:03 DC 03/16/17 13:03 100 MLS/HR Docusate Sodium (coLACE CAP) 100 mg BID PO 03/15/17 21:00 04/14/17 20:59 04/04/17 08:15 100 MG Heparin Sodium (Porcine) (Heparin Sq 5000 Unit/0.5ml) 5,000 unit Q12 SQ 03/15/17 21:00 04/14/17 20:59 04/04/17 08:21 5,000 UNIT Desonide (Desowen 0.05% Crm) 1 appln BID EXT 03/15/17 21:00 03/29/17 18:53 DC 03/29/17 08:17 1 APPLN Nystatin (Mycostatin Susp) 5 ml QID PO 03/15/17 17:00 03/25/17 16:59 DC 03/25/17 12:19 5 ML Nystatin (Mycostatin Powder) 1 appln BID EXT 03/15/17 21:00 04/14/17 20:59 04/04/17 08:14 1 APPLN Ergocalciferol (Vitamin D Cap) 50,000 interunit NOW ONCE PO 03/15/17 17:00 03/15/17 17:01 DC 03/15/17 17:32 50,000 INTERUNIT Calcitriol (Rocaltrol Cap) 0.25 mcg 1700 ONCE PO 03/15/17 17:00 03/15/17 17:01 DC 03/15/17 17:31 0.25 MCG Calcium Carbonate (Tums Chew Tab) 1,000 mg NOW ONCE PO 03/15/17 17:00 03/15/17 17:01 DC 03/15/17 17:32 1,000 MG Calcium Carbonate (Tums Chew Tab) 1,000 mg QAM PO 03/16/17 09:00 03/16/17 09:00 DC 03/16/17 07:59 1,000 MG Sodium Phosphate 15 mmol/Sodium Chloride 255 ml @ 102 mls/hr 1800 ONCE IV 03/15/17 18:00 03/15/17 20:29 DC 03/15/17 18:50 102 MLS/HR Calcium Gluconate 2000 mg/Sodium Chloride 70 ml @ 240 mls/hr 2030 ONCE IV 03/15/17 20:30 03/15/17 20:47 DC 03/16/17 00:15 240 MLS/HR Calcium Gluconate 3000 mg/Sodium Chloride 80 ml @ 160 mls/hr NOW ONCE IV 03/16/17 02:00 03/16/17 02:29 DC 03/16/17 02:05 160 MLS/HR Magnesium Sulfate 1 gm/Prmx 100 ml @ 100 mls/hr TODAY@0800,0900 IV 03/16/17 08:00 03/16/17 09:59 DC 03/16/17 10:22 100 MLS/HR Calcium Carbonate (Tums Chew Tab) 1,000 mg QID PO 03/16/17 09:00 03/16/17 15:24 DC 03/16/17 13:03 1,000 MG Calcium Gluconate 2000 mg/Sodium Chloride 70 ml @ 240 mls/hr 1000 ONCE IV 03/16/17 10:00 03/16/17 10:17 DC 03/16/17 11:57 240 MLS/HR Calcium Carbonate (Tums Chew Tab) 2,000 mg QID PO 03/16/17 17:00 04/15/17 08:59 04/04/17 12:55 2,000 MG Potassium/ Phosphorus/Sodium (Phospha 250 Neutral 155-852-130 Mg) 1 tab QID PO 03/16/17 17:00 04/15/17 16:59 04/04/17 12:55 1 TAB Sodium Phosphate 21 mmol/Sodium Chloride 507 ml @ 144 mls/hr ONE ONCE IV 03/16/17 15:30 03/16/17 19:01 DC 03/16/17 15:47 144 MLS/HR Calcium Gluconate 2000 mg/Sodium Chloride 70 ml @ 240 mls/hr NOW STAT IV 03/16/17 15:28 03/16/17 15:45 DC 03/16/17 15:47 240 MLS/HR Calcium Gluconate 1000 mg/Sodium Chloride 60 ml @ 240 mls/hr NOW STAT IV 03/16/17 17:12 03/16/17 17:26 DC 03/16/17 17:41 240 MLS/HR Calcium Gluconate 1000 mg/Sodium Chloride 60 ml @ 120 mls/hr NOW ONCE IV 03/16/17 19:45 03/16/17 20:14 DC 03/16/17 19:54 120 MLS/HR Calcium Gluconate 1000 mg/Sodium Chloride 60 ml @ 240 mls/hr NOW STAT IV 03/17/17 04:32 03/17/17 04:46 DC 03/17/17 04:51 240 MLS/HR Calcium Gluconate 3000 mg/Sodium Chloride 80 ml @ 160 mls/hr 0900 ONCE IV 03/17/17 09:00 03/17/17 09:29 DC 03/17/17 09:00 160 MLS/HR Magnesium Sulfate 1 gm/Prmx 100 ml @ 100 mls/hr 0930,1030 IV 03/17/17 09:30 03/17/17 11:29 DC 03/17/17 10:25 100 MLS/HR Cholecalciferol (Vitamin D Tab) 1,000 inter.unit QAM PO 03/18/17 09:00 03/18/17 09:00 DC 03/18/17 07:43 1,000 INTER.UNIT Cholecalciferol (Vitamin D Tab) 1,000 inter.unit 0942 ONCE PO 03/17/17 09:42 03/17/17 09:44 DC 03/17/17 10:22 1,000 INTER.UNIT Calcitriol (Rocaltrol Cap) 1 mcg NOW ONCE PO 03/17/17 09:45 03/17/17 09:55 DC 03/17/17 10:22 1 MCG Calcium Gluconate 3000 mg/Sodium Chloride 80 ml @ 160 mls/hr 1130 ONCE IV 03/17/17 11:30 03/17/17 11:59 DC 03/17/17 11:25 160 MLS/HR Cephalexin Monohydrate (Keflex Cap) 500 mg BID PO 03/17/17 13:00 03/17/17 19:12 DC 03/17/17 14:57 500 MG Calcium Gluconate 3000 mg/Sodium Chloride 80 ml @ 160 mls/hr 1500 ONCE IV 03/17/17 15:00 03/17/17 15:29 DC 03/17/17 14:59 160 MLS/HR Calcium Gluconate 3000 mg/Sodium Chloride 80 ml @ 240 mls/hr Q6H IV 03/17/17 22:00 03/18/17 08:45 DC 03/18/17 04:16 240 MLS/HR Calcium Gluconate 1000 mg/Sodium Chloride 60 ml @ 240 mls/hr NOW STAT IV 03/17/17 19:39 03/17/17 19:53 DC 03/17/17 20:32 240 MLS/HR Magnesium Sulfate 1 gm/Prmx 100 ml @ 100 mls/hr Q1H IV 03/18/17 09:30 03/18/17 11:29 DC 03/18/17 15:15 100 MLS/HR Cholecalciferol (Vitamin D Tab) 5,000 inter.unit QAM PO 03/18/17 09:00 03/26/17 12:23 DC 03/26/17 08:37 5,000 INTER.UNIT Calcitriol (Rocaltrol Cap) 1 mcg QAM PO 03/18/17 09:00 03/27/17 08:41 DC 03/27/17 07:56 1 MCG Calcium Gluconate 4000 mg/Sodium Chloride 90 ml @ 120 mls/hr 0900 ONCE IV 03/18/17 09:00 03/18/17 09:44 DC 03/18/17 08:54 120 MLS/HR Calcium Gluconate 4000 mg/Sodium Chloride 90 ml @ 120 mls/hr 1000 IV 03/18/17 10:00 03/18/17 11:00 DC 03/18/17 09:52 120 MLS/HR Calcium Carbonate (oS-Randy 500 TAB) 1,250 mg QID PO 03/18/17 09:00 04/17/17 08:59 04/04/17 12:55 1,250 MG Trimethoprim/ Sulfamethoxazole (Septra Ds 800/ 160MG Tab) 1 tab DAILY PO 03/19/17 09:00 03/29/17 08:59 DC 03/29/17 08:16 1 TAB Trimethoprim/ Sulfamethoxazole (Septra Ds 800/ 160MG Tab) 1 tab 1300 ONCE PO 03/18/17 13:00 03/18/17 13:01 DC 03/18/17 13:01 1 TAB Calcium Gluconate 3000 mg/Sodium Chloride 80 ml @ 160 mls/hr 1500 IV 03/18/17 15:00 03/18/17 15:29 DC 03/18/17 15:00 160 MLS/HR Heparin Sodium (Porcine) (Heparin 10 Unit/ ml 5 ml Flush) 5 ml PRN PRN FLUSH 03/18/17 15:30 04/17/17 15:29 04/03/17 22:10 5 ML Calcium Gluconate 4000 mg/Sodium Chloride 90 ml @ 120 mls/hr NOW STAT IV 03/18/17 21:35 03/18/17 22:19 DC 03/18/17 22:21 120 MLS/HR Calcium Gluconate 4000 mg/Sodium Chloride 90 ml @ 120 mls/hr ONE ONCE IV 03/19/17 00:00 03/19/17 00:44 DC 03/19/17 00:01 120 MLS/HR Calcium Gluconate 2000 mg/Sodium Chloride 70 ml @ 240 mls/hr 0800 ONCE IV 03/19/17 08:00 03/19/17 08:17 DC 03/19/17 08:48 240 MLS/HR Sodium Phosphate 15 mmol/Sodium Chloride 255 ml @ 88 mls/hr 0900 ONCE IV 03/19/17 09:00 03/19/17 11:53 DC 03/19/17 08:48 88 MLS/HR Amoxicillin (Amoxil Cap) 250 mg TID PO 03/19/17 21:00 03/24/17 20:59 DC 03/24/17 21:17 250 MG Amoxicillin (Amoxil Cap) 250 mg TODAY@1515 ONCE PO 03/19/17 15:15 03/19/17 15:23 DC 03/19/17 15:33 250 MG Calcium Gluconate 2000 mg/Sodium Chloride 70 ml @ 240 mls/hr NOW STAT IV 03/19/17 17:53 03/19/17 18:10 DC 03/19/17 18:12 240 MLS/HR Calcium Gluconate 2000 mg/Sodium Chloride 70 ml @ 140 mls/hr NOW ONCE IV 03/19/17 19:00 03/19/17 19:29 DC 03/19/17 19:23 140 MLS/HR Calcium Gluconate 4000 mg/Sodium Chloride 140 ml @ 140 mls/hr 0900 IV 03/20/17 09:00 03/20/17 12:00 DC 03/20/17 09:01 140 MLS/HR Magnesium Sulfate 1 gm/Prmx 100 ml @ 100 mls/hr Q1H IV 03/20/17 10:00 03/20/17 11:59 DC 03/20/17 11:13 100 MLS/HR Calcium Gluconate 4000 mg/Sodium Chloride 140 ml @ 140 mls/hr TODAY@1645 ONCE IV 03/20/17 16:45 03/20/17 17:44 DC 03/20/17 16:53 140 MLS/HR Calcium Gluconate 3000 mg/Dextrose 280 ml @ 125 mls/hr Q2H15M IV 03/21/17 10:30 03/21/17 12:44 DC 03/21/17 10:58 125 MLS/HR Calcium Gluconate 3000 mg/Sodium Chloride 80 ml @ 160 mls/hr 1630 ONCE IV 03/21/17 16:30 03/21/17 16:59 DC 03/21/17 16:36 160 MLS/HR Calcium Gluconate 4000 mg/Dextrose 290 ml @ 125 mls/hr Q24H IV 03/22/17 11:30 03/23/17 09:32 DC 03/22/17 12:32 125 MLS/HR Calcium Gluconate 4000 mg/Dextrose 290 ml @ 125 mls/hr Q2H20M ONCE IV 03/22/17 18:45 03/22/17 21:04 DC 03/22/17 19:16 125 MLS/HR Calcium Gluconate 4000 mg/Dextrose 290 ml @ 150 mls/hr Q1H56M IV 03/23/17 09:45 03/23/17 11:40 DC 03/23/17 10:22 150 MLS/HR Calcium Gluconate 4000 mg/Dextrose 290 ml @ 150 mls/hr Q1H56M ONCE IV 03/23/17 16:45 03/23/17 18:40 DC 03/23/17 17:00 150 MLS/HR Calcium Gluconate 4000 mg/Sodium Chloride 540 ml @ 125 mls/hr Q4H20M IV 03/24/17 09:45 03/25/17 09:44 DC 03/25/17 10:05 125 MLS/HR Calcium Gluconate 4000 mg/Sodium Chloride 540 ml @ 125 mls/hr Q4H20M IV 03/25/17 14:30 03/26/17 12:23 DC 03/26/17 09:59 125 MLS/HR Magnesium Sulfate 1 gm/Prmx 100 ml @ 100 mls/hr NOW STAT IV 03/26/17 14:41 03/26/17 15:40 DC 03/26/17 16:35 100 MLS/HR Calcitriol (Rocaltrol Cap) 2 mcg QAM PO 03/28/17 08:00 03/29/17 13:49 DC 03/29/17 08:15 2 MCG Calcium Gluconate 2000 mg/Sodium Chloride 520 ml @ 125 mls/hr Q4H10M IV 03/27/17 09:00 03/28/17 08:25 DC 03/28/17 05:36 125 MLS/HR Calcium Gluconate 55840 mg/Sodium Chloride 600 ml @ 60 mls/hr Q10H IV 03/28/17 09:00 03/29/17 08:58 DC 03/29/17 06:16 60 MLS/HR Potassium Phosphate 30 mmol/ Sodium Chloride 510 ml @ 88 mls/hr TODAY@1100 IV 03/29/17 11:00 03/29/17 16:48 DC 03/29/17 11:26 88 MLS/HR Calcitriol (Rocaltrol Cap) 3 mcg QAM PO 03/30/17 08:00 04/17/17 08:59 04/04/17 08:15 3 MCG Calcium Gluconate 2000 mg/Sodium Chloride 520 ml @ 125 mls/hr Q4H10M IV 03/29/17 16:30 03/31/17 15:59 DC 03/31/17 12:44 125 MLS/HR Magnesium Sulfate 1 gm/Prmx 100 ml @ 100 mls/hr Q1H IV 03/30/17 08:30 03/30/17 10:29 DC 03/30/17 11:49 100 MLS/HR Potassium Phosphate 15 mmol/ Sodium Chloride 255 ml @ 113.333 mls/hr ONE ONCE IV 03/30/17 08:30 03/30/17 10:44 DC 03/30/17 09:37 113.333 MLS/HR Hydrochlorothiazide (Hydrochlorothiazide Tab) 25 mg QAM PO 03/30/17 13:00 04/29/17 12:59 04/04/17 08:15 25 MG Calcium Gluconate 3000 mg/Sodium Chloride 130 ml @ 260 mls/hr NOW STAT IV 03/31/17 07:13 03/31/17 07:42 DC 03/31/17 07:53 260 MLS/HR Sodium Phosphate 15 mmol/Sodium Chloride 255 ml @ 85 mls/hr NOW STAT IV 03/31/17 09:42 03/31/17 12:41 DC 03/31/17 11:10 85 MLS/HR Calcium Gluconate 4000 mg/Sodium Chloride 540 ml @ 125 mls/hr Q4H20M IV 03/31/17 17:00 04/01/17 11:19 DC 04/01/17 11:14 125 MLS/HR Calcium Gluconate 2000 mg/Sodium Chloride 520 ml @ 125 mls/hr Q4H10M IV 04/01/17 15:30 04/02/17 13:24 DC 04/02/17 12:36 125 MLS/HR Sodium Phosphate 9 mmol/Sodium Chloride 253 ml @ 88 mls/hr TODAY@1445 ONCE IV 04/01/17 14:45 04/01/17 17:37 DC 04/01/17 15:42 88 MLS/HR Nystatin (Mycostatin Susp) 5 ml QID PO 04/01/17 17:00 04/11/17 16:59 04/04/17 12:55 5 ML Calcium Gluconate 4000 mg/Sodium Chloride 540 ml @ 125 mls/hr Q4H20M IV 04/03/17 08:30 04/03/17 12:49 DC 04/03/17 08:29 125 MLS/HR Magnesium Sulfate 1 gm/Prmx 100 ml @ 100 mls/hr Q1H IV 04/03/17 18:00 04/03/17 19:59 DC 04/03/17 19:02 100 MLS/HR Calcium Gluconate 4000 mg/Sodium Chloride 540 ml @ 125 mls/hr Q4H20M ONCE IV 04/03/17 18:00 04/03/17 22:19 DC 04/03/17 17:55 125 MLS/HR Calcium Gluconate 4000 mg/Sodium Chloride 540 ml @ 125 mls/hr Q4H20M IV 04/03/17 23:00 05/03/17 22:59 04/04/17 12:58 125 MLS/HR (GuilCallie sauceda CRNP) Objective Vital Signs Date Time Temp Pulse Resp B/P (MAP) Pulse Ox O2 Delivery O2 Flow Rate FiO2 04/04/17 14:38 36.9 86 16 124/71 (88) 98 04/04/17 11:41 36.8 87 16 109/58 (75) 97 Room Air 04/04/17 08:30 Room Air 04/04/17 07:03 36.8 81 18 112/64 (80) 97 Room Air 04/04/17 01:31 36.9 83 20 107/56 (73) 95 Room Air 04/04/17 00:00 Room Air (Callie Arvizu CRNP) Physical Exam Notes: General: no distress Eyes: normal inspection, PERLL Respiratory: chest non tender, clear to auscultation, normal breath sounds, no respiratory distress, no accessory muscle use Cardiac: regular rate and rhythm, no rub or gallop, no murmur, no edema, no jvd GI/: active bowel sounds, no abd pain or tenderness, soft, non distended Extremities: normal range of motion, normal strength, non tender Neuro/Psych: alert and oriented x 3, normal mood and affect Skin: normal color, dry (Callie Arvizu CRNP) Laboratory Results Last 24 Hours Test 04/04/17 05:45 Sodium Level 139 mmol/L Potassium Level 4.6 mmol/L Chloride Level 108 mmol/L Carbon Dioxide Level 25 mmol/L Anion Gap 6.0 mmol/L Blood Urea Nitrogen 11 mg/dl Creatinine 1.03 mg/dl Est Creatinine Clear Calc Drug Dose 47.3 ml/min Estimated GFR () 77.5 Estimated GFR (Non- 66.9 BUN/Creatinine Ratio 10.2 Random Glucose 82 mg/dl Calcium Level 7.4 mg/dl Magnesium Level 1.9 mg/dl (Callie Arvizu CRNP) Assessment and Plan Mr. Greene is an 81 year old man with a history of prostate cancer and osteoblastic mets that presented with fatigue and found to have severe hypocalcemia thought secondary to his Denosumab (03/02/2017). Hypocalcemia/hypophosphatemia - The patient has now been on 2 + weeks of IV calcium and oral calcium therapy - Secondary to Denosumab injection in the setting of metastatic prostate CA - Calcium at 7.9 this morning - corrected for albumin is 8.8 mg/dl - Daily calcium gluconate infusion 4000 mg q 4h - patient's Ca dropped when taken off IV infusion - will need to arrange for home infusion of IV ca gluconate, probably an overnight 10 hour infusion of 24g Ca - Continue oral Calcium and Calcitriol - Vitamin D level now wnl - Patient was started on hctz to help with Ca levels - Nephrology consulted Hypomagnesemia/ Hypophosphatemia resolved UTI; Stenotrophomonas and enterococcus; chronic bey - Bactrim/ Amoxil course completed (10 day course) --> Initially treated with Rocephin on admission Superficial thrombophlebitis of right arm- resolved - Ultrasound confirmation of superficial thrombus involving the cephalic vein - Avoid IV line in right UE - Warm compress Prostate Ca with mets to bone - Continue tamsulosin, finasteride - patient continues to deny pain Intertrigo/thrush - Nystatin swish and swallow, nystatin powder for groin Seborrheic dermatitis - Completed 14 day course of Desonide for face CKD III stable - Avoid nephrotoxins where possible - Monitor with daily BMP DVT Prophylaxis - Heparin subq bid Code Status - DNR (Callie Arvizu ., ALMA ROSA) [employer] Physician Supervision Note: I interviewed and examined the patient. Discussed with Callie Arvizu NP and agree with findings and plan as documented in the note. Any exceptions or clarifications are listed here: None Recurrently 3 weeks and this patient's hospital stay of profound hypoglycemia induced by chemotherapy attempts to stopping his intravenous infusion of calcium did result in return of hypocalcemia this is despite having fairly voluminous amounts of oral calcium calcium. We are currently looking into the ability of home health to the liver infusions of IV calcium overnight at home to allow the patient to return to his home environment by receiving continue augmentation of his calcium. This will be supervised as an outpatient by Dr. Mike Aquino and will likely only require lab work 3 times a week Patient's vital signs otherwise are stable he has no complaints or problems his heart is regular his lungs are clear despite being in the hospital for 3 weeks he is maintaining good outlook ambulating the hallways without difficulty there is no signs of fluid overload at this time Documented By: Joe Moran (Joe Moran M.D.)
[2017-04-04] MEDS: RANITIDINE HCL 150 MG TAB PO SCH (20:39)
[2017-04-04] MEDS: TAMSULOSIN HCL 0.4 MG CAP PO SCH (20:40)
[2017-04-05 00:09] VITALS: BP 136/73; PULSE 89; TEMP 37; O2SAT 98
[2017-04-05] MEDS: SODIUM CHLORIDE 0.9% IV SCH ×4 (01:54→15:30)
[2017-04-05] MEDS: CALCIUM GLUCONATE IV SCH ×4 (01:54→15:30)
[2017-04-05 06:45] LABS: CALCIUM 8.1 mg/dl (8.5-10.1); CREATININE 0.95 mg/dl (0.60-1.40); POTASSIUM 4.8 mmol/L (3.5-5.1)
[2017-04-05 07:27] VITALS: BP 113/61; PULSE 85; TEMP 36.8; O2SAT 96
[2017-04-05] MEDS: NYSTATIN POWDER 15GM BTL EXT SCH ×2 (08:00→20:00)
[2017-04-05] MEDS: DOCUSATE SODIUM 100 MG CAP PO SCH ×2 (08:17→21:23)
[2017-04-05] MEDS: PANTOprazole SOD 40 MG TAB PO SCH (08:18)
[2017-04-05] MEDS: CALCIUM CARBONATE 1250MG TAB PO SCH ×4 (08:18→21:24)
[2017-04-05] MEDS: HYDROCHLOROTHIAZIDE 25 MG TAB PO SCH (08:18)
[2017-04-05] MEDS: CALCIUM CARBONATE 500 MG CHEWABLE PO SCH ×4 (08:19→21:24)
[2017-04-05] MEDS: POT PHOSPHATE MONOBASIC W/ SOD TAB PO SCH ×4 (08:19→21:24)
[2017-04-05] MEDS: CALCITRIOL 0.25 MCG CAP PO SCH (08:20)
[2017-04-05] MEDS: NYSTATIN SUSP 500,000 U/5 ML UDC PO SCH ×4 (08:21→21:25)
[2017-04-05] MEDS: HEPARIN SOD 5000 UNIT/0.5 ML CARP SQ SCH ×2 (08:26→21:32)
--- NOTE | 2017-04-05 10:45 | Nephrology Progress Note ---
Nephrology Progress Note Date of Service Apr 05, 2017. Chief Complaint Hypocalcemia Subjective No acute events overnight. No complaints this morning. Paul denies any pain. He does not have tetany or muscle spasms. Appetite is good. No shortness of breath. Review of Systems A complete review of systems was performed. Pertinent positives are noted above. All other systems are negative. Vital Signs Last 8 Hrs Date Time Temp Pulse Resp B/P (MAP) Pulse Ox O2 Delivery O2 Flow Rate FiO2 04/05/17 08:00 Room Air 04/05/17 07:27 36.8 85 18 113/61 (78) 96 Room Air Last Recorded Weight Weight (Kilograms): 63.700 Physical Exam General Appearance: WD/WN, no apparent distress Head: normocephalic, atraumatic Eyes: normal inspection, sclerae normal ENT: normal ENT inspection, pharynx normal Neck: supple, no JVD Respiratory/Chest: lungs clear, no respiratory distress, no accessory muscle use Cardiovascular: regular rate, rhythm, no gallop, no murmur Abdomen/GI: non tender, soft Extremities/Musculoskelatal: normal inspection, no pedal edema Neurologic/Psych: alert, normal mood/affect Social History Drug Use: none Marital Status: Housing Status: lives with family (lives with son) 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 04/05/17 05:45 Test 04/05/17 05:45 Anion Gap 8.0 mmol/L (3-11) Est Creatinine Clear Calc Drug Dose 51.3 ml/min Estimated GFR () 85.5 Estimated GFR (Non- 73.7 BUN/Creatinine Ratio 8.8 (10-20) Calcium Level 8.1 mg/dl (8.5-10.1) Allergies Coded Allergies: No Known Allergies (Unverified , 03/15/17) Medications Current Inpatient Medications Medications (Trade) Dose Ordered Sig/Jonathan Route Start Time Stop Time Status Last Admin Dose Admin Acetaminophen (Tylenol Tab) 650 mg Q4H PRN PO 03/15/17 14:15 04/14/17 14:14 Tamsulosin HCl (Flomax Cap) 0.8 mg HS PO 03/15/17 21:00 04/14/17 20:59 04/04/17 20:40 0.8 MG Miscellaneous Information (Order Awaiting Action) 1 ea QS N/A 2/1/18 16:00 04/14/17 15:59 Pantoprazole Sodium (Protonix Tab) 40 mg QAM PO 03/16/17 09:00 04/15/17 08:59 04/05/17 08:18 40 MG Ranitidine HCl (zANTac TAB) 300 mg HS PO 03/15/17 21:00 04/14/17 20:59 04/04/17 20:39 300 MG Polyethylene (Miralax Powder Packet) 17 gm DAILY PRN PO 03/15/17 15:00 04/14/17 14:59 Docusate Sodium (coLACE CAP) 100 mg BID PO 03/15/17 21:00 04/14/17 20:59 04/05/17 08:17 100 MG Bisacodyl (Dulcolax Supp) [address] 03/15/17 15:00 04/14/17 14:59 Heparin Sodium (Porcine) (Heparin Sq 5000 Unit/0.5ml) 5,000 unit Q12 SQ 03/15/17 21:00 04/14/17 20:59 04/05/17 08:26 5,000 UNIT Nystatin (Mycostatin Powder) 1 appln BID EXT 03/15/17 21:00 04/14/17 20:59 04/04/17 20:37 1 APPLN Calcium Carbonate (Tums Chew Tab) 2,000 mg QID PO 03/16/17 17:00 04/15/17 08:59 04/05/17 08:19 2,000 MG Potassium/ Phosphorus/Sodium (Phospha 250 Neutral 155-852-130 Mg) 1 tab QID PO 03/16/17 17:00 04/15/17 16:59 04/05/17 08:19 1 TAB Calcium Carbonate (oS-Randy 500 TAB) 1,250 mg QID PO 03/18/17 09:00 04/17/17 08:59 04/05/17 08:18 1,250 MG Miscellaneous (Tap Water Enema) [address] 03/18/17 13:30 04/17/17 13:29 Heparin Sodium (Porcine) (Heparin 10 Unit/ ml 5 ml Flush) 5 ml PRN PRN FLUSH 03/18/17 15:30 04/17/17 15:29 04/03/17 22:10 5 ML Heparin Sodium (Porcine) (Heparin 10 Unit/ ml 5 ml Flush) 5 ml PRN PRN FLUSH 03/29/17 11:00 04/28/17 10:59 Calcitriol (Rocaltrol Cap) 3 mcg QAM PO 03/30/17 08:00 04/17/17 08:59 04/05/17 08:20 3 MCG Hydrochlorothiazide (Hydrochlorothiazide Tab) 25 mg QAM PO 03/30/17 13:00 04/29/17 12:59 04/05/17 08:18 25 MG Nystatin (Mycostatin Susp) 5 ml QID PO 04/01/17 17:00 04/11/17 16:59 04/05/17 08:21 5 ML Calcium Gluconate 4000 mg/Sodium Chloride 540 ml @ 125 mls/hr Q4H20M IV 04/03/17 23:00 05/03/17 22:59 04/05/17 06:41 125 MLS/HR Impression (1) Hypocalcemia (2) Prostate cancer (3) Hypertension Mr. 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 He developed severe hypocalcemia following treatment with Denosumab. Renal function is normal based on eGFR. EKG documented new QTc prolongation which improved with treatment. 25OH D deficiency documented on presentation. This was treated with ergocalciferol 28055 IU and cholecalciferol. Calcitriol is being provided. Aggressive replacement with PO and IV calcium continues. The patient has associated hypomagnesemia. This is being treated with IV magnesium sulfate. Based on review of the literature, medium time to calcium jonny is 21 days and median time to correction of hypocalcemia is 71 days. The patient continues to require IV calcium gluconate. Recommendations -- Serum calcium improving -- Continue calcium gluconate at 1 gm/hr -- Recheck serum calcium this afternoon -- If calcium continues to rise on repeat, suggest holding infusion -- Continue calcitriol 3 mcg daily -- Increase OsCal to 2500 QID -- Continue TUMS 2 grams TID -- Monitor magnesium and replace with IV mag as needed -- Monitor BMP with Mg and phosphorus daily
--- NOTE | 2017-04-05 15:16 | Hospitalist Progress Note ---
Hospitalist Progress Note Date of Service Apr 05, 2017. (Callie Arvizu ., ALMA ROSA) Subjective Pt evaluation today including: conversation w/ patient, physical exam, chart review, lab review, review of inpatient medication list Voiding: no voiding problems Mr. Greene continues to feel well. He has no complaints ROS Constitutional: no chills, aches, sweats or fever Respiratory: no sob,cough, sputum, or wheezing Cardiac: no chest pain, palpitations, edema, orthopnea or lightheadedness GI: no abdominal pain, nausea, vomiting, diarrhea or constipation : no dysuria or hesitancy Extremities: no joint pain or weakness Skin: no rash All other systems reviewed and negative (Callie Arvizu CRNP) Medications Medications Administered Medications (Trade) Dose Ordered Sig/Jonathan Route Start Time Stop Time Status Last Admin Dose Admin Sodium Chloride 1,000 ml @ 125 mls/hr Q8H STAT IV 03/15/17 10:09 03/15/17 16:58 DC 03/15/17 13:23 125 MLS/HR Sodium Chloride 1,000 ml @ 999 mls/hr Q1H1M STAT IV 03/15/17 10:22 03/15/17 11:22 DC 03/15/17 10:22 999 MLS/HR Calcium Gluconate (Calcium Gluconate 10%) 1,000 mg NOW STAT IV 03/15/17 12:26 03/15/17 12:28 DC 03/15/17 12:48 1,000 MG Magnesium Sulfate (Magnesium Sulfate) 2 gm NOW STAT IV 03/15/17 12:26 03/15/17 12:28 DC 03/15/17 13:35 2 GM Ceftriaxone Sodium (Rocephin Inj) 1 gm NOW STAT IV 03/15/17 12:26 03/15/17 12:28 DC 03/15/17 13:22 1 GM Calcium Gluconate 1000 mg/Sodium Chloride 60 ml @ 240 mls/hr NOW STAT IV 03/15/17 16:06 03/15/17 16:20 DC 03/15/17 17:33 240 MLS/HR Tamsulosin HCl (Flomax Cap) 0.8 mg HS PO 03/15/17 21:00 04/14/17 20:59 04/04/17 20:40 0.8 MG Pantoprazole Sodium (Protonix Tab) 40 mg QAM PO 03/16/17 09:00 04/15/17 08:59 04/05/17 08:18 40 MG Ranitidine HCl (zANTac TAB) 300 mg HS PO 03/15/17 21:00 04/14/17 20:59 04/04/17 20:39 300 MG Ceftriaxone Sodium 1 gm/ Dextrose 50 ml @ 100 mls/hr Q24H IV 03/16/17 14:00 03/17/17 12:03 DC 03/16/17 13:03 100 MLS/HR Docusate Sodium (coLACE CAP) 100 mg BID PO 03/15/17 21:00 04/14/17 20:59 04/05/17 08:17 100 MG Heparin Sodium (Porcine) (Heparin Sq 5000 Unit/0.5ml) 5,000 unit Q12 SQ 03/15/17 21:00 04/14/17 20:59 04/05/17 08:26 5,000 UNIT Desonide (Desowen 0.05% Crm) 1 appln BID EXT 03/15/17 21:00 03/29/17 18:53 DC 03/29/17 08:17 1 APPLN Nystatin (Mycostatin Susp) 5 ml QID PO 03/15/17 17:00 03/25/17 16:59 DC 03/25/17 12:19 5 ML Nystatin (Mycostatin Powder) 1 appln BID EXT 03/15/17 21:00 04/14/17 20:59 04/04/17 20:37 1 APPLN Ergocalciferol (Vitamin D Cap) 50,000 interunit NOW ONCE PO 03/15/17 17:00 03/15/17 17:01 DC 03/15/17 17:32 50,000 INTERUNIT Calcitriol (Rocaltrol Cap) 0.25 mcg 1700 ONCE PO 03/15/17 17:00 03/15/17 17:01 DC 03/15/17 17:31 0.25 MCG Calcium Carbonate (Tums Chew Tab) 1,000 mg NOW ONCE PO 03/15/17 17:00 03/15/17 17:01 DC 03/15/17 17:32 1,000 MG Calcium Carbonate (Tums Chew Tab) 1,000 mg QAM PO 03/16/17 09:00 03/16/17 09:00 DC 03/16/17 07:59 1,000 MG Sodium Phosphate 15 mmol/Sodium Chloride 255 ml @ 102 mls/hr 1800 ONCE IV 03/15/17 18:00 03/15/17 20:29 DC 03/15/17 18:50 102 MLS/HR Calcium Gluconate 2000 mg/Sodium Chloride 70 ml @ 240 mls/hr 2030 ONCE IV 03/15/17 20:30 03/15/17 20:47 DC 03/16/17 00:15 240 MLS/HR Calcium Gluconate 3000 mg/Sodium Chloride 80 ml @ 160 mls/hr NOW ONCE IV 03/16/17 02:00 03/16/17 02:29 DC 03/16/17 02:05 160 MLS/HR Magnesium Sulfate 1 gm/Prmx 100 ml @ 100 mls/hr TODAY@0800,0900 IV 03/16/17 08:00 03/16/17 09:59 DC 03/16/17 10:22 100 MLS/HR Calcium Carbonate (Tums Chew Tab) 1,000 mg QID PO 03/16/17 09:00 03/16/17 15:24 DC 03/16/17 13:03 1,000 MG Calcium Gluconate 2000 mg/Sodium Chloride 70 ml @ 240 mls/hr 1000 ONCE IV 03/16/17 10:00 03/16/17 10:17 DC 03/16/17 11:57 240 MLS/HR Calcium Carbonate (Tums Chew Tab) 2,000 mg QID PO 03/16/17 17:00 04/15/17 08:59 04/05/17 12:23 2,000 MG Potassium/ Phosphorus/Sodium (Phospha 250 Neutral 155-852-130 Mg) 1 tab QID PO 03/16/17 17:00 04/15/17 16:59 04/05/17 12:23 1 TAB Sodium Phosphate 21 mmol/Sodium Chloride 507 ml @ 144 mls/hr ONE ONCE IV 03/16/17 15:30 03/16/17 19:01 DC 03/16/17 15:47 144 MLS/HR Calcium Gluconate 2000 mg/Sodium Chloride 70 ml @ 240 mls/hr NOW STAT IV 03/16/17 15:28 03/16/17 15:45 DC 03/16/17 15:47 240 MLS/HR Calcium Gluconate 1000 mg/Sodium Chloride 60 ml @ 240 mls/hr NOW STAT IV 03/16/17 17:12 03/16/17 17:26 DC 03/16/17 17:41 240 MLS/HR Calcium Gluconate 1000 mg/Sodium Chloride 60 ml @ 120 mls/hr NOW ONCE IV 03/16/17 19:45 03/16/17 20:14 DC 03/16/17 19:54 120 MLS/HR Calcium Gluconate 1000 mg/Sodium Chloride 60 ml @ 240 mls/hr NOW STAT IV 03/17/17 04:32 03/17/17 04:46 DC 03/17/17 04:51 240 MLS/HR Calcium Gluconate 3000 mg/Sodium Chloride 80 ml @ 160 mls/hr 0900 ONCE IV 03/17/17 09:00 03/17/17 09:29 DC 03/17/17 09:00 160 MLS/HR Magnesium Sulfate 1 gm/Prmx 100 ml @ 100 mls/hr 0930,1030 IV 03/17/17 09:30 03/17/17 11:29 DC 03/17/17 10:25 100 MLS/HR Cholecalciferol (Vitamin D Tab) 1,000 inter.unit QAM PO 03/18/17 09:00 03/18/17 09:00 DC 03/18/17 07:43 1,000 INTER.UNIT Cholecalciferol (Vitamin D Tab) 1,000 inter.unit 0942 ONCE PO 03/17/17 09:42 03/17/17 09:44 DC 03/17/17 10:22 1,000 INTER.UNIT Calcitriol (Rocaltrol Cap) 1 mcg NOW ONCE PO 03/17/17 09:45 03/17/17 09:55 DC 03/17/17 10:22 1 MCG Calcium Gluconate 3000 mg/Sodium Chloride 80 ml @ 160 mls/hr 1130 ONCE IV 03/17/17 11:30 03/17/17 11:59 DC 03/17/17 11:25 160 MLS/HR Cephalexin Monohydrate (Keflex Cap) 500 mg BID PO 03/17/17 13:00 03/17/17 19:12 DC 03/17/17 14:57 500 MG Calcium Gluconate 3000 mg/Sodium Chloride 80 ml @ 160 mls/hr 1500 ONCE IV 03/17/17 15:00 03/17/17 15:29 DC 03/17/17 14:59 160 MLS/HR Calcium Gluconate 3000 mg/Sodium Chloride 80 ml @ 240 mls/hr Q6H IV 03/17/17 22:00 03/18/17 08:45 DC 03/18/17 04:16 240 MLS/HR Calcium Gluconate 1000 mg/Sodium Chloride 60 ml @ 240 mls/hr NOW STAT IV 03/17/17 19:39 03/17/17 19:53 DC 03/17/17 20:32 240 MLS/HR Magnesium Sulfate 1 gm/Prmx 100 ml @ 100 mls/hr Q1H IV 03/18/17 09:30 03/18/17 11:29 DC 03/18/17 15:15 100 MLS/HR Cholecalciferol (Vitamin D Tab) 5,000 inter.unit QAM PO 03/18/17 09:00 03/26/17 12:23 DC 03/26/17 08:37 5,000 INTER.UNIT Calcitriol (Rocaltrol Cap) 1 mcg QAM PO 03/18/17 09:00 03/27/17 08:41 DC 03/27/17 07:56 1 MCG Calcium Gluconate 4000 mg/Sodium Chloride 90 ml @ 120 mls/hr 0900 ONCE IV 03/18/17 09:00 03/18/17 09:44 DC 03/18/17 08:54 120 MLS/HR Calcium Gluconate 4000 mg/Sodium Chloride 90 ml @ 120 mls/hr 1000 IV 03/18/17 10:00 03/18/17 11:00 DC 03/18/17 09:52 120 MLS/HR Calcium Carbonate (oS-Randy 500 TAB) 1,250 mg QID PO 03/18/17 09:00 04/17/17 08:59 04/05/17 12:23 1,250 MG Trimethoprim/ Sulfamethoxazole (Septra Ds 800/ 160MG Tab) 1 tab DAILY PO 03/19/17 09:00 03/29/17 08:59 DC 03/29/17 08:16 1 TAB Trimethoprim/ Sulfamethoxazole (Septra Ds 800/ 160MG Tab) 1 tab 1300 ONCE PO 03/18/17 13:00 03/18/17 13:01 DC 03/18/17 13:01 1 TAB Calcium Gluconate 3000 mg/Sodium Chloride 80 ml @ 160 mls/hr 1500 IV 03/18/17 15:00 03/18/17 15:29 DC 03/18/17 15:00 160 MLS/HR Heparin Sodium (Porcine) (Heparin 10 Unit/ ml 5 ml Flush) 5 ml PRN PRN FLUSH 03/18/17 15:30 04/17/17 15:29 04/03/17 22:10 5 ML Calcium Gluconate 4000 mg/Sodium Chloride 90 ml @ 120 mls/hr NOW STAT IV 03/18/17 21:35 03/18/17 22:19 DC 03/18/17 22:21 120 MLS/HR Calcium Gluconate 4000 mg/Sodium Chloride 90 ml @ 120 mls/hr ONE ONCE IV 03/19/17 00:00 03/19/17 00:44 DC 03/19/17 00:01 120 MLS/HR Calcium Gluconate 2000 mg/Sodium Chloride 70 ml @ 240 mls/hr 0800 ONCE IV 03/19/17 08:00 03/19/17 08:17 DC 03/19/17 08:48 240 MLS/HR Sodium Phosphate 15 mmol/Sodium Chloride 255 ml @ 88 mls/hr 0900 ONCE IV 03/19/17 09:00 03/19/17 11:53 DC 03/19/17 08:48 88 MLS/HR Amoxicillin (Amoxil Cap) 250 mg TID PO 03/19/17 21:00 03/24/17 20:59 DC 03/24/17 21:17 250 MG Amoxicillin (Amoxil Cap) 250 mg TODAY@1515 ONCE PO 03/19/17 15:15 03/19/17 15:23 DC 03/19/17 15:33 250 MG Calcium Gluconate 2000 mg/Sodium Chloride 70 ml @ 240 mls/hr NOW STAT IV 03/19/17 17:53 03/19/17 18:10 DC 03/19/17 18:12 240 MLS/HR Calcium Gluconate 2000 mg/Sodium Chloride 70 ml @ 140 mls/hr NOW ONCE IV 03/19/17 19:00 03/19/17 19:29 DC 03/19/17 19:23 140 MLS/HR Calcium Gluconate 4000 mg/Sodium Chloride 140 ml @ 140 mls/hr 0900 IV 03/20/17 09:00 03/20/17 12:00 DC 03/20/17 09:01 140 MLS/HR Magnesium Sulfate 1 gm/Prmx 100 ml @ 100 mls/hr Q1H IV 03/20/17 10:00 03/20/17 11:59 DC 03/20/17 11:13 100 MLS/HR Calcium Gluconate 4000 mg/Sodium Chloride 140 ml @ 140 mls/hr TODAY@1645 ONCE IV 03/20/17 16:45 03/20/17 17:44 DC 03/20/17 16:53 140 MLS/HR Calcium Gluconate 3000 mg/Dextrose 280 ml @ 125 mls/hr Q2H15M IV 03/21/17 10:30 03/21/17 12:44 DC 03/21/17 10:58 125 MLS/HR Calcium Gluconate 3000 mg/Sodium Chloride 80 ml @ 160 mls/hr 1630 ONCE IV 03/21/17 16:30 03/21/17 16:59 DC 03/21/17 16:36 160 MLS/HR Calcium Gluconate 4000 mg/Dextrose 290 ml @ 125 mls/hr Q24H IV 03/22/17 11:30 03/23/17 09:32 DC 03/22/17 12:32 125 MLS/HR Calcium Gluconate 4000 mg/Dextrose 290 ml @ 125 mls/hr Q2H20M ONCE IV 03/22/17 18:45 03/22/17 21:04 DC 03/22/17 19:16 125 MLS/HR Calcium Gluconate 4000 mg/Dextrose 290 ml @ 150 mls/hr Q1H56M IV 03/23/17 09:45 03/23/17 11:40 DC 03/23/17 10:22 150 MLS/HR Calcium Gluconate 4000 mg/Dextrose 290 ml @ 150 mls/hr Q1H56M ONCE IV 03/23/17 16:45 03/23/17 18:40 DC 03/23/17 17:00 150 MLS/HR Calcium Gluconate 4000 mg/Sodium Chloride 540 ml @ 125 mls/hr Q4H20M IV 03/24/17 09:45 03/25/17 09:44 DC 03/25/17 10:05 125 MLS/HR Calcium Gluconate 4000 mg/Sodium Chloride 540 ml @ 125 mls/hr Q4H20M IV 03/25/17 14:30 03/26/17 12:23 DC 03/26/17 09:59 125 MLS/HR Magnesium Sulfate 1 gm/Prmx 100 ml @ 100 mls/hr NOW STAT IV 03/26/17 14:41 03/26/17 15:40 DC 03/26/17 16:35 100 MLS/HR Calcitriol (Rocaltrol Cap) 2 mcg QAM PO 03/28/17 08:00 03/29/17 13:49 DC 03/29/17 08:15 2 MCG Calcium Gluconate 2000 mg/Sodium Chloride 520 ml @ 125 mls/hr Q4H10M IV 03/27/17 09:00 03/28/17 08:25 DC 03/28/17 05:36 125 MLS/HR Calcium Gluconate 29181 mg/Sodium Chloride 600 ml @ 60 mls/hr Q10H IV 03/28/17 09:00 03/29/17 08:58 DC 03/29/17 06:16 60 MLS/HR Potassium Phosphate 30 mmol/ Sodium Chloride 510 ml @ 88 mls/hr TODAY@1100 IV 03/29/17 11:00 03/29/17 16:48 DC 03/29/17 11:26 88 MLS/HR Calcitriol (Rocaltrol Cap) 3 mcg QAM PO 03/30/17 08:00 04/17/17 08:59 04/05/17 08:20 3 MCG Calcium Gluconate 2000 mg/Sodium Chloride 520 ml @ 125 mls/hr Q4H10M IV 03/29/17 16:30 03/31/17 15:59 DC 03/31/17 12:44 125 MLS/HR Magnesium Sulfate 1 gm/Prmx 100 ml @ 100 mls/hr Q1H IV 03/30/17 08:30 03/30/17 10:29 DC 03/30/17 11:49 100 MLS/HR Potassium Phosphate 15 mmol/ Sodium Chloride 255 ml @ 113.333 mls/hr ONE ONCE IV 03/30/17 08:30 03/30/17 10:44 DC 03/30/17 09:37 113.333 MLS/HR Hydrochlorothiazide (Hydrochlorothiazide Tab) 25 mg QAM PO 03/30/17 13:00 04/29/17 12:59 04/05/17 08:18 25 MG Calcium Gluconate 3000 mg/Sodium Chloride 130 ml @ 260 mls/hr NOW STAT IV 03/31/17 07:13 03/31/17 07:42 DC 03/31/17 07:53 260 MLS/HR Sodium Phosphate 15 mmol/Sodium Chloride 255 ml @ 85 mls/hr NOW STAT IV 03/31/17 09:42 03/31/17 12:41 DC 03/31/17 11:10 85 MLS/HR Calcium Gluconate 4000 mg/Sodium Chloride 540 ml @ 125 mls/hr Q4H20M IV 03/31/17 17:00 04/01/17 11:19 DC 04/01/17 11:14 125 MLS/HR Calcium Gluconate 2000 mg/Sodium Chloride 520 ml @ 125 mls/hr Q4H10M IV 04/01/17 15:30 04/02/17 13:24 DC 04/02/17 12:36 125 MLS/HR Sodium Phosphate 9 mmol/Sodium Chloride 253 ml @ 88 mls/hr TODAY@1445 ONCE IV 04/01/17 14:45 04/01/17 17:37 DC 04/01/17 15:42 88 MLS/HR Nystatin (Mycostatin Susp) 5 ml QID PO 04/01/17 17:00 04/11/17 16:59 04/05/17 12:23 5 ML Calcium Gluconate 4000 mg/Sodium Chloride 540 ml @ 125 mls/hr Q4H20M IV 04/03/17 08:30 04/03/17 12:49 DC 04/03/17 08:29 125 MLS/HR Magnesium Sulfate 1 gm/Prmx 100 ml @ 100 mls/hr Q1H IV 04/03/17 18:00 04/03/17 19:59 DC 04/03/17 19:02 100 MLS/HR Calcium Gluconate 4000 mg/Sodium Chloride 540 ml @ 125 mls/hr Q4H20M ONCE IV 04/03/17 18:00 04/03/17 22:19 DC 04/03/17 17:55 125 MLS/HR Calcium Gluconate 4000 mg/Sodium Chloride 540 ml @ 125 mls/hr Q4H20M IV 04/03/17 23:00 05/03/17 22:59 04/05/17 11:17 125 MLS/HR (Callie Arvizu, ALMA ROSA) Objective Vital Signs Date Time Temp Pulse Resp B/P (MAP) Pulse Ox O2 Delivery O2 Flow Rate FiO2 04/05/17 08:00 Room Air 04/05/17 07:27 36.8 85 18 113/61 (78) 96 Room Air 04/05/17 00:20 Room Air 04/05/17 00:09 37.0 89 20 136/73 (94) 98 Room Air 04/04/17 16:00 98 Room Air (Callie Arvizu CRNP) Physical Exam Notes: General: no distress Eyes: normal inspection, PERLL Respiratory: chest non tender, clear to auscultation, normal breath sounds, no respiratory distress, no accessory muscle use Cardiac: regular rate and rhythm, no rub or gallop, no murmur, no edema, no jvd GI/: active bowel sounds, no abd pain or tenderness, soft, non distended Extremities: normal range of motion, normal strength, non tender Neuro/Psych: alert and oriented x 3, normal mood and affect Skin: normal color, dry (Callie Arvizu CRNP) Laboratory Results Last 24 Hours Test 04/05/17 05:45 Sodium Level 139 mmol/L Potassium Level 4.8 mmol/L Chloride Level 109 mmol/L Carbon Dioxide Level 22 mmol/L Anion Gap 8.0 mmol/L Blood Urea Nitrogen 8 mg/dl Creatinine 0.95 mg/dl Est Creatinine Clear Calc Drug Dose 51.3 ml/min Estimated GFR () 85.5 Estimated GFR (Non- 73.7 BUN/Creatinine Ratio 8.8 Random Glucose 82 mg/dl Calcium Level 8.1 mg/dl (Callie Arvizu CRNP) Assessment and Plan Mr. Greene is an 81 year old man with a history of prostate cancer and osteoblastic mets that presented with fatigue and found to have severe hypocalcemia thought secondary to his Denosumab (03/02/2017). Hypocalcemia/hypophosphatemia - The patient has now been on 2 + weeks of IV calcium and oral calcium therapy - Secondary to Denosumab injection in the setting of metastatic prostate CA - Calcium at 7.9 this morning - corrected for albumin is 8.8 mg/dl - Daily calcium gluconate infusion 4000 mg q 4h - patient's Ca dropped when taken off IV infusion - arranging for home infusion of IV ca gluconate, probably an overnight 10 hour infusion of 24g Ca - will also need calcium levels drawn three times a week by home health - this will be managed by nephrology - Continue oral Calcium and Calcitriol - Vitamin D level now wnl - Patient was started on hctz to help with Ca levels - Nephrology consulted Hypomagnesemia/ Hypophosphatemia resolved UTI; Stenotrophomonas and enterococcus; chronic bey - Bactrim/ Amoxil course completed (10 day course) --> Initially treated with Rocephin on admission Superficial thrombophlebitis of right arm- resolved - Ultrasound confirmation of superficial thrombus involving the cephalic vein - Avoid IV line in right UE - Warm compress Prostate Ca with mets to bone - Continue tamsulosin, finasteride - patient continues to deny pain Intertrigo/thrush - Nystatin swish and swallow, nystatin powder for groin Seborrheic dermatitis - Completed 14 day course of Desonide for face CKD III stable - Avoid nephrotoxins where possible - Monitor with daily BMP DVT Prophylaxis - Heparin subq bid Code Status - DNR Dispo: awaiting home health arrangements for nocturnal Calcium infusions (Callie Arvizu ., ALMA ROSA) [employer] Physician Supervision Note: I interviewed and examined the patient. Discussed with Callie Arvizu [employer] and agree with findings and plan as documented in the note. Any exceptions or clarifications are listed here: None Patient is doing well still with calcium that requires intravenous supplementation while he takes oral meds were trying to arrange home infusion therapy through home health services and the patient has no other complaints or problems at this time Vital signs remain stable his exam is unchanged she is clear lungs despite his hydration regular heart having no other issues with regard to his prostate cancer Documented By: Joe Moran (Joe Moran M.D.)
[2017-04-05 15:24] VITALS: BP 129/66; PULSE 91; TEMP 37; O2SAT 98
[2017-04-05 16:52] LABS: CALCIUM 8.5 mg/dl (8.5-10.1); CREATININE 1.03 mg/dl (0.60-1.40); POTASSIUM 4.6 mmol/L (3.5-5.1)
[2017-04-05] MEDS: RANITIDINE HCL 150 MG TAB PO SCH (21:23)
[2017-04-05] MEDS: TAMSULOSIN HCL 0.4 MG CAP PO SCH (21:26)
[2017-04-06 00:24] VITALS: BP 102/49; PULSE 97; TEMP 36.9; O2SAT 96
[2017-04-06 06:49] LABS: CALCIUM 6.8 mg/dl (8.5-10.1); CREATININE 1.04 mg/dl (0.60-1.40); POTASSIUM 4.3 mmol/L (3.5-5.1)
[2017-04-06 07:49] VITALS: BP 110/60; PULSE 90; TEMP 36.9; O2SAT 96
[2017-04-06] MEDS: NYSTATIN POWDER 15GM BTL EXT SCH ×2 (08:00→20:51)
[2017-04-06] MEDS: NYSTATIN SUSP 500,000 U/5 ML UDC PO SCH ×4 (08:14→20:50)
[2017-04-06] MEDS: CALCITRIOL 0.25 MCG CAP PO SCH (08:15)
[2017-04-06] MEDS: PANTOprazole SOD 40 MG TAB PO SCH (08:15)
[2017-04-06] MEDS: DOCUSATE SODIUM 100 MG CAP PO SCH ×2 (08:15→20:49)
[2017-04-06] MEDS: CALCIUM CARBONATE 1250MG TAB PO SCH ×4 (08:15→20:50)
[2017-04-06] MEDS: CALCIUM CARBONATE 500 MG CHEWABLE PO SCH ×4 (08:17→20:53)
[2017-04-06] MEDS: POT PHOSPHATE MONOBASIC W/ SOD TAB PO SCH ×4 (08:17→20:53)
[2017-04-06] MEDS: HYDROCHLOROTHIAZIDE 25 MG TAB PO SCH (08:17)
[2017-04-06 08:37] VITALS: O2SAT 96
[2017-04-06] MEDS: HEPARIN SOD 5000 UNIT/0.5 ML CARP SQ SCH ×2 (08:57→20:52)
[2017-04-06] MEDS: SODIUM CHLORIDE 0.9% IV SCH ×4 (09:33→22:52)
[2017-04-06] MEDS: CALCIUM GLUCONATE IV SCH ×4 (09:33→22:52)
--- NOTE | 2017-04-06 12:58 | Clinical Documentation Query ---
CLINICAL DOCUMENTATION QUERY Dr. MONREAL, In your clinical opinion is this patient being managed for: ( ) Severe protein-calorie malnutrition ( xx ) Not Agree ( ) Other explanation of clinical findings (Please Explain) ( ) Unable to determine (Please Define) ( ) Need to Discuss The medical record reflects the following clinical findings, treatment, and risk factors. Clinical Indicators:81 yo male presenting with generalized weakness and difficulty eating since esophageal dilation. At the time of ER presentation, pt had not been able to eat x 3 days. Seen by yard foreman who has documented that pt has had a 22% (41 lb) wt loss over the past year. Turn Down Worker also noted pt had lost his a year ago and pt has noted a change in appetite. Treatment: yard foreman consult, snacks bid, monitor wts, I/O, skin status, continue regular diet Risk Factors: prostate cancer, schatzki's ring requiring dilation, spouse's Chronic Severe Malnutrition Criteria: (2 criteria needed) Energy intake: <75% of estimated energy requirement for > 1 month Wt loss: >5% in 1 month, > 7.5% in 3 months, >10% in 6 months, >20% in 1 year Body fat: severe loss of SQ fat from the orbits, triceps or fat overlying the ribs Muscle mass: severe muscle wasting at the temples, clavicles, shoulders, interosseous spaces, scapula, thigh, calf Fluid accumulation: severe localized or generalized edema of the extremities, vulva, scrotum-wt loss may be masked by edema Please clarify and document your clinical opinion in the progress notes and discharge summary. Terms such as "probable", "suspected", "likely", "questionable", "possible", or "still to be ruled out" are acceptable. IF IN AGREEMENT, YOU MUST DOCUMENT ABOVE DIAGNOSTIC STATEMENT IN DAILY PROGRESS NOTES AND DISCHARGE SUMMARY. This document is not part of the patient's record. Thank You, Rhianna Calvo, RN [phone]
--- NOTE | 2017-04-06 13:08 | Nephrology Progress Note ---
Nephrology Progress Note Date of Service Apr 06, 2017. Chief Complaint Hypocalcemia Subjective No acute events overnight. No complaints this morning. Mr. Greene continues to feel well. Appetite is good. Activity tolerance unchanged. No muscle spasms or tetany. Unfortunately, serum calcium continues to fall after IV infusion is stopped. Review of Systems A complete review of systems was performed. Pertinent positives are noted above. All other systems are negative. Vital Signs Last 8 Hrs Date Time Temp Pulse Resp B/P (MAP) Pulse Ox O2 Delivery O2 Flow Rate FiO2 04/06/17 08:37 96 Room Air 04/06/17 08:15 Room Air 04/06/17 07:49 36.9 90 14 110/60 (77) 96 Room Air Last Recorded Weight Weight (Kilograms): 63.700 Physical Exam General Appearance: WD/WN, no apparent distress Head: normocephalic, atraumatic Eyes: normal inspection, sclerae normal ENT: normal ENT inspection, pharynx normal Neck: supple, no JVD Respiratory/Chest: lungs clear, no respiratory distress, no accessory muscle use Cardiovascular: regular rate, rhythm, no gallop, no murmur Back: no CVA tenderness Abdomen/GI: non tender, soft Extremities/Musculoskelatal: normal inspection, no pedal edema Neurologic/Psych: alert, normal mood/affect Social History Drug Use: none Marital Status: Housing Status: lives with family (lives with son) 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 04/05/17 16:14 04/06/17 05:43 Test 04/05/17 16:14 04/06/17 05:43 Anion Gap 8.0 mmol/L (3-11) 6.0 mmol/L (3-11) Est Creatinine Clear Calc Drug Dose 47.3 ml/min 46.8 ml/min Estimated GFR () 77.5 76.6 Estimated GFR (Non- 66.9 66.1 BUN/Creatinine Ratio 8.0 (10-20) 8.8 (10-20) Calcium Level 8.5 mg/dl (8.5-10.1) 6.8 mg/dl (8.5-10.1) Magnesium Level 1.8 mg/dl (1.8-2.4) Allergies Coded Allergies: No Known Allergies (Unverified , 03/15/17) Medications Current Inpatient Medications Medications (Trade) Dose Ordered Sig/Jonathan Route Start Time Stop Time Status Last Admin Dose Admin Acetaminophen (Tylenol Tab) 650 mg Q4H PRN PO 03/15/17 14:15 04/14/17 14:14 Tamsulosin HCl (Flomax Cap) 0.8 mg HS PO 03/15/17 21:00 04/14/17 20:59 04/05/17 21:26 0.8 MG Miscellaneous Information (Order Awaiting Action) 1 ea QS N/A 03/15/17 16:00 04/14/17 15:59 Pantoprazole Sodium (Protonix Tab) 40 mg QAM PO 03/16/17 09:00 04/15/17 08:59 04/06/17 08:15 40 MG Ranitidine HCl (zANTac TAB) 300 mg HS PO 03/15/17 21:00 04/14/17 20:59 04/05/17 21:23 300 MG Polyethylene (Miralax Powder Packet) 17 gm DAILY PRN PO 03/15/17 15:00 04/14/17 14:59 Docusate Sodium (coLACE CAP) 100 mg BID PO 03/15/17 21:00 04/14/17 20:59 04/06/17 08:15 100 MG Bisacodyl (Dulcolax Supp) 10 mg DAILY PRN OH 03/15/17 15:00 04/14/17 14:59 Heparin Sodium (Porcine) (Heparin Sq 5000 Unit/0.5ml) 5,000 unit Q12 SQ 03/15/17 21:00 04/14/17 20:59 04/06/17 08:57 5,000 UNIT Nystatin (Mycostatin Powder) 1 appln BID EXT 03/15/17 21:00 04/14/17 20:59 04/05/17 20:00 1 APPLN Calcium Carbonate (Tums Chew Tab) 2,000 mg QID PO 03/16/17 17:00 04/15/17 08:59 04/06/17 12:28 2,000 MG Potassium/ Phosphorus/Sodium (Phospha 250 Neutral 155-852-130 Mg) 1 tab QID PO 03/16/17 17:00 04/15/17 16:59 04/06/17 12:28 1 TAB Calcium Carbonate (oS-Randy 500 TAB) 1,250 mg QID PO 03/18/17 09:00 04/17/17 08:59 04/06/17 12:28 1,250 MG Miscellaneous (Tap Water Enema) 1 ea Q2D PRN OH 03/18/17 13:30 04/17/17 13:29 Heparin Sodium (Porcine) (Heparin 10 Unit/ ml 5 ml Flush) 5 ml PRN PRN FLUSH 03/18/17 15:30 04/17/17 15:29 04/06/17 05:39 5 ML Heparin Sodium (Porcine) (Heparin 10 Unit/ ml 5 ml Flush) 5 ml PRN PRN FLUSH 03/29/17 11:00 04/28/17 10:59 Calcitriol (Rocaltrol Cap) 3 mcg QAM PO 03/30/17 08:00 04/17/17 08:59 04/06/17 08:15 3 MCG Hydrochlorothiazide (Hydrochlorothiazide Tab) 25 mg QAM PO 03/30/17 13:00 04/29/17 12:59 04/06/17 08:17 25 MG Nystatin (Mycostatin Susp) 5 ml QID PO 04/01/17 17:00 04/11/17 16:59 04/06/17 12:28 5 ML Calcium Gluconate 4000 mg/Sodium Chloride 540 ml @ 125 mls/hr Q4H20M IV 04/06/17 09:15 05/06/17 09:14 04/06/17 09:33 125 MLS/HR Impression (1) Hypocalcemia (2) Prostate cancer (3) Hypertension Mr. 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 He developed severe hypocalcemia following treatment with Denosumab. Renal function is normal based on eGFR. EKG documented new QTc prolongation which improved with treatment. 25OH D deficiency documented on presentation. This was treated with ergocalciferol 77388 IU and cholecalciferol. Calcitriol is being provided. Aggressive replacement with PO and IV calcium continues. The patient has associated hypomagnesemia. This is being treated with IV magnesium sulfate. Based on review of the literature, medium time to calcium jonny is 21 days and median time to correction of hypocalcemia is 71 days. The patient continues to require IV calcium gluconate. Recommendations -- Serum calcium dropped after IV calcium infusion was held overnight -- Calcium gluconate at 1 gm/hr restarted this AM -- Recheck serum calcium this afternoon -- Continue calcitriol 3 mcg daily -- Increase OsCal to 2500 QID -- Continue TUMS 2 grams TID -- Monitor magnesium and replace with IV mag as needed -- Monitor BMP with Mg and phosphorus daily
[2017-04-06 14:44] VITALS: BP 103/52; PULSE 73; TEMP 37.1; O2SAT 96
--- NOTE | 2017-04-06 14:46 | Hospitalist Progress Note ---
Hospitalist Progress Note Date of Service Apr 06, 2017. (Callie Arvizu ., ALMA ROSA) Subjective Pt evaluation today including: conversation w/ patient, physical exam, chart review, lab review, review of inpatient medication list Mr. Greene is feeling well. He has no complaints. ROS Constitutional: no chills, aches, sweats or fever Respiratory: no sob,cough, sputum, or wheezing Cardiac: no chest pain, palpitations, edema, orthopnea or lightheadedness GI: no abdominal pain, nausea, vomiting, diarrhea or constipation : no dysuria or hesitancy Extremities: no joint pain or weakness Skin: no rash All other systems reviewed and negative (Callie Arvizu .ALMA ROSA) Medications Medications Administered Medications (Trade) Dose Ordered Sig/Jonathan Route Start Time Stop Time Status Last Admin Dose Admin Sodium Chloride 1,000 ml @ 125 mls/hr Q8H STAT IV 03/15/17 10:09 03/15/17 16:58 DC 03/15/17 13:23 125 MLS/HR Sodium Chloride 1,000 ml @ 999 mls/hr Q1H1M STAT IV 03/15/17 10:22 03/15/17 11:22 DC 03/15/17 10:22 999 MLS/HR Calcium Gluconate (Calcium Gluconate 10%) 1,000 mg NOW STAT IV 03/15/17 12:26 03/15/17 12:28 DC 03/15/17 12:48 1,000 MG Magnesium Sulfate (Magnesium Sulfate) 2 gm NOW STAT IV 03/15/17 12:26 03/15/17 12:28 DC 03/15/17 13:35 2 GM Ceftriaxone Sodium (Rocephin Inj) 1 gm NOW STAT IV 03/15/17 12:26 03/15/17 12:28 DC 03/15/17 13:22 1 GM Calcium Gluconate 1000 mg/Sodium Chloride 60 ml @ 240 mls/hr NOW STAT IV 03/15/17 16:06 03/15/17 16:20 DC 03/15/17 17:33 240 MLS/HR Tamsulosin HCl (Flomax Cap) 0.8 mg HS PO 03/15/17 21:00 04/14/17 20:59 04/05/17 21:26 0.8 MG Pantoprazole Sodium (Protonix Tab) 40 mg QAM PO 03/16/17 09:00 04/15/17 08:59 04/06/17 08:15 40 MG Ranitidine HCl (zANTac TAB) 300 mg HS PO 03/15/17 21:00 04/14/17 20:59 04/05/17 21:23 300 MG Ceftriaxone Sodium 1 gm/ Dextrose 50 ml @ 100 mls/hr Q24H IV 03/16/17 14:00 03/17/17 12:03 DC 03/16/17 13:03 100 MLS/HR Docusate Sodium (coLACE CAP) 100 mg BID PO 03/15/17 21:00 04/14/17 20:59 04/06/17 08:15 100 MG Heparin Sodium (Porcine) (Heparin Sq 5000 Unit/0.5ml) 5,000 unit Q12 SQ 03/15/17 21:00 04/14/17 20:59 04/06/17 08:57 5,000 UNIT Desonide (Desowen 0.05% Crm) 1 appln BID EXT 03/15/17 21:00 03/29/17 18:53 DC 03/29/17 08:17 1 APPLN Nystatin (Mycostatin Susp) 5 ml QID PO 03/15/17 17:00 03/25/17 16:59 DC 03/25/17 12:19 5 ML Nystatin (Mycostatin Powder) 1 appln BID EXT 03/15/17 21:00 04/14/17 20:59 04/05/17 20:00 1 APPLN Ergocalciferol (Vitamin D Cap) 50,000 interunit NOW ONCE PO 03/15/17 17:00 03/15/17 17:01 DC 03/15/17 17:32 50,000 INTERUNIT Calcitriol (Rocaltrol Cap) 0.25 mcg 1700 ONCE PO 03/15/17 17:00 03/15/17 17:01 DC 03/15/17 17:31 0.25 MCG Calcium Carbonate (Tums Chew Tab) 1,000 mg NOW ONCE PO 03/15/17 17:00 03/15/17 17:01 DC 03/15/17 17:32 1,000 MG Calcium Carbonate (Tums Chew Tab) 1,000 mg QAM PO 03/16/17 09:00 2/2/18 09:00 DC 03/16/17 07:59 1,000 MG Sodium Phosphate 15 mmol/Sodium Chloride 255 ml @ 102 mls/hr 1800 ONCE IV 03/15/17 18:00 03/15/17 20:29 DC 03/15/17 18:50 102 MLS/HR Calcium Gluconate 2000 mg/Sodium Chloride 70 ml @ 240 mls/hr 2030 ONCE IV 03/15/17 20:30 03/15/17 20:47 DC 03/16/17 00:15 240 MLS/HR Calcium Gluconate 3000 mg/Sodium Chloride 80 ml @ 160 mls/hr NOW ONCE IV 03/16/17 02:00 03/16/17 02:29 DC 03/16/17 02:05 160 MLS/HR Magnesium Sulfate 1 gm/Prmx 100 ml @ 100 mls/hr TODAY@0800,0900 IV 03/16/17 08:00 03/16/17 09:59 DC 03/16/17 10:22 100 MLS/HR Calcium Carbonate (Tums Chew Tab) 1,000 mg QID PO 03/16/17 09:00 03/16/17 15:24 DC 03/16/17 13:03 1,000 MG Calcium Gluconate 2000 mg/Sodium Chloride 70 ml @ 240 mls/hr 1000 ONCE IV 03/16/17 10:00 03/16/17 10:17 DC 03/16/17 11:57 240 MLS/HR Calcium Carbonate (Tums Chew Tab) 2,000 mg QID PO 03/16/17 17:00 04/15/17 08:59 04/06/17 12:28 2,000 MG Potassium/ Phosphorus/Sodium (Phospha 250 Neutral 155-852-130 Mg) 1 tab QID PO 03/16/17 17:00 04/15/17 16:59 04/06/17 12:28 1 TAB Sodium Phosphate 21 mmol/Sodium Chloride 507 ml @ 144 mls/hr ONE ONCE IV 03/16/17 15:30 03/16/17 19:01 DC 03/16/17 15:47 144 MLS/HR Calcium Gluconate 2000 mg/Sodium Chloride 70 ml @ 240 mls/hr NOW STAT IV 03/16/17 15:28 03/16/17 15:45 DC 03/16/17 15:47 240 MLS/HR Calcium Gluconate 1000 mg/Sodium Chloride 60 ml @ 240 mls/hr NOW STAT IV 03/16/17 17:12 03/16/17 17:26 DC 03/16/17 17:41 240 MLS/HR Calcium Gluconate 1000 mg/Sodium Chloride 60 ml @ 120 mls/hr NOW ONCE IV 03/16/17 19:45 03/16/17 20:14 DC 03/16/17 19:54 120 MLS/HR Calcium Gluconate 1000 mg/Sodium Chloride 60 ml @ 240 mls/hr NOW STAT IV 03/17/17 04:32 03/17/17 04:46 DC 03/17/17 04:51 240 MLS/HR Calcium Gluconate 3000 mg/Sodium Chloride 80 ml @ 160 mls/hr 0900 ONCE IV 03/17/17 09:00 03/17/17 09:29 DC 03/17/17 09:00 160 MLS/HR Magnesium Sulfate 1 gm/Prmx 100 ml @ 100 mls/hr 0930,1030 IV 03/17/17 09:30 03/17/17 11:29 DC 03/17/17 10:25 100 MLS/HR Cholecalciferol (Vitamin D Tab) 1,000 inter.unit QAM PO 03/18/17 09:00 03/18/17 09:00 DC 03/18/17 07:43 1,000 INTER.UNIT Cholecalciferol (Vitamin D Tab) 1,000 inter.unit 0942 ONCE PO 03/17/17 09:42 03/17/17 09:44 DC 03/17/17 10:22 1,000 INTER.UNIT Calcitriol (Rocaltrol Cap) 1 mcg NOW ONCE PO 03/17/17 09:45 03/17/17 09:55 DC 03/17/17 10:22 1 MCG Calcium Gluconate 3000 mg/Sodium Chloride 80 ml @ 160 mls/hr 1130 ONCE IV 03/17/17 11:30 03/17/17 11:59 DC 03/17/17 11:25 160 MLS/HR Cephalexin Monohydrate (Keflex Cap) 500 mg BID PO 03/17/17 13:00 03/17/17 19:12 DC 03/17/17 14:57 500 MG Calcium Gluconate 3000 mg/Sodium Chloride 80 ml @ 160 mls/hr 1500 ONCE IV 03/17/17 15:00 03/17/17 15:29 DC 03/17/17 14:59 160 MLS/HR Calcium Gluconate 3000 mg/Sodium Chloride 80 ml @ 240 mls/hr Q6H IV 03/17/17 22:00 03/18/17 08:45 DC 03/18/17 04:16 240 MLS/HR Calcium Gluconate 1000 mg/Sodium Chloride 60 ml @ 240 mls/hr NOW STAT IV 03/17/17 19:39 03/17/17 19:53 DC 03/17/17 20:32 240 MLS/HR Magnesium Sulfate 1 gm/Prmx 100 ml @ 100 mls/hr Q1H IV 03/18/17 09:30 03/18/17 11:29 DC 03/18/17 15:15 100 MLS/HR Cholecalciferol (Vitamin D Tab) 5,000 inter.unit QAM PO 03/18/17 09:00 03/26/17 12:23 DC 03/26/17 08:37 5,000 INTER.UNIT Calcitriol (Rocaltrol Cap) 1 mcg QAM PO 03/18/17 09:00 03/27/17 08:41 DC 03/27/17 07:56 1 MCG Calcium Gluconate 4000 mg/Sodium Chloride 90 ml @ 120 mls/hr 0900 ONCE IV 03/18/17 09:00 03/18/17 09:44 DC 03/18/17 08:54 120 MLS/HR Calcium Gluconate 4000 mg/Sodium Chloride 90 ml @ 120 mls/hr 1000 IV 03/18/17 10:00 03/18/17 11:00 DC 03/18/17 09:52 120 MLS/HR Calcium Carbonate (oS-Randy 500 TAB) 1,250 mg QID PO 03/18/17 09:00 04/17/17 08:59 04/06/17 12:28 1,250 MG Trimethoprim/ Sulfamethoxazole (Septra Ds 800/ 160MG Tab) 1 tab DAILY PO 03/19/17 09:00 03/29/17 08:59 DC 03/29/17 08:16 1 TAB Trimethoprim/ Sulfamethoxazole (Septra Ds 800/ 160MG Tab) 1 tab 1300 ONCE PO 03/18/17 13:00 03/18/17 13:01 DC 03/18/17 13:01 1 TAB Calcium Gluconate 3000 mg/Sodium Chloride 80 ml @ 160 mls/hr 1500 IV 03/18/17 15:00 03/18/17 15:29 DC 03/18/17 15:00 160 MLS/HR Heparin Sodium (Porcine) (Heparin 10 Unit/ ml 5 ml Flush) 5 ml PRN PRN FLUSH 03/18/17 15:30 04/17/17 15:29 04/06/17 05:39 5 ML Calcium Gluconate 4000 mg/Sodium Chloride 90 ml @ 120 mls/hr NOW STAT IV 03/18/17 21:35 03/18/17 22:19 DC 03/18/17 22:21 120 MLS/HR Calcium Gluconate 4000 mg/Sodium Chloride 90 ml @ 120 mls/hr ONE ONCE IV 03/19/17 00:00 03/19/17 00:44 DC 03/19/17 00:01 120 MLS/HR Calcium Gluconate 2000 mg/Sodium Chloride 70 ml @ 240 mls/hr 0800 ONCE IV 03/19/17 08:00 03/19/17 08:17 DC 03/19/17 08:48 240 MLS/HR Sodium Phosphate 15 mmol/Sodium Chloride 255 ml @ 88 mls/hr 0900 ONCE IV 03/19/17 09:00 03/19/17 11:53 DC 03/19/17 08:48 88 MLS/HR Amoxicillin (Amoxil Cap) 250 mg TID PO 03/19/17 21:00 03/24/17 20:59 DC 03/24/17 21:17 250 MG Amoxicillin (Amoxil Cap) 250 mg TODAY@1515 ONCE PO 03/19/17 15:15 03/19/17 15:23 DC 03/19/17 15:33 250 MG Calcium Gluconate 2000 mg/Sodium Chloride 70 ml @ 240 mls/hr NOW STAT IV 03/19/17 17:53 03/19/17 18:10 DC 03/19/17 18:12 240 MLS/HR Calcium Gluconate 2000 mg/Sodium Chloride 70 ml @ 140 mls/hr NOW ONCE IV 03/19/17 19:00 03/19/17 19:29 DC 03/19/17 19:23 140 MLS/HR Calcium Gluconate 4000 mg/Sodium Chloride 140 ml @ 140 mls/hr 0900 IV 03/20/17 09:00 03/20/17 12:00 DC 03/20/17 09:01 140 MLS/HR Magnesium Sulfate 1 gm/Prmx 100 ml @ 100 mls/hr Q1H IV 03/20/17 10:00 03/20/17 11:59 DC 03/20/17 11:13 100 MLS/HR Calcium Gluconate 4000 mg/Sodium Chloride 140 ml @ 140 mls/hr TODAY@1645 ONCE IV 03/20/17 16:45 03/20/17 17:44 DC 03/20/17 16:53 140 MLS/HR Calcium Gluconate 3000 mg/Dextrose 280 ml @ 125 mls/hr Q2H15M IV 03/21/17 10:30 03/21/17 12:44 DC 03/21/17 10:58 125 MLS/HR Calcium Gluconate 3000 mg/Sodium Chloride 80 ml @ 160 mls/hr 1630 ONCE IV 03/21/17 16:30 03/21/17 16:59 DC 03/21/17 16:36 160 MLS/HR Calcium Gluconate 4000 mg/Dextrose 290 ml @ 125 mls/hr Q24H IV 03/22/17 11:30 03/23/17 09:32 DC 03/22/17 12:32 125 MLS/HR Calcium Gluconate 4000 mg/Dextrose 290 ml @ 125 mls/hr Q2H20M ONCE IV 03/22/17 18:45 03/22/17 21:04 DC 03/22/17 19:16 125 MLS/HR Calcium Gluconate 4000 mg/Dextrose 290 ml @ 150 mls/hr Q1H56M IV 03/23/17 09:45 03/23/17 11:40 DC 03/23/17 10:22 150 MLS/HR Calcium Gluconate 4000 mg/Dextrose 290 ml @ 150 mls/hr Q1H56M ONCE IV 03/23/17 16:45 03/23/17 18:40 DC 03/23/17 17:00 150 MLS/HR Calcium Gluconate 4000 mg/Sodium Chloride 540 ml @ 125 mls/hr Q4H20M IV 03/24/17 09:45 03/25/17 09:44 DC 03/25/17 10:05 125 MLS/HR Calcium Gluconate 4000 mg/Sodium Chloride 540 ml @ 125 mls/hr Q4H20M IV 03/25/17 14:30 03/26/17 12:23 DC 03/26/17 09:59 125 MLS/HR Magnesium Sulfate 1 gm/Prmx 100 ml @ 100 mls/hr NOW STAT IV 03/26/17 14:41 03/26/17 15:40 DC 03/26/17 16:35 100 MLS/HR Calcitriol (Rocaltrol Cap) 2 mcg QAM PO 03/28/17 08:00 03/29/17 13:49 DC 03/29/17 08:15 2 MCG Calcium Gluconate 2000 mg/Sodium Chloride 520 ml @ 125 mls/hr Q4H10M IV 03/27/17 09:00 03/28/17 08:25 DC 03/28/17 05:36 125 MLS/HR Calcium Gluconate 03324 mg/Sodium Chloride 600 ml @ 60 mls/hr Q10H IV 03/28/17 09:00 03/29/17 08:58 DC 03/29/17 06:16 60 MLS/HR Potassium Phosphate 30 mmol/ Sodium Chloride 510 ml @ 88 mls/hr TODAY@1100 IV 03/29/17 11:00 03/29/17 16:48 DC 03/29/17 11:26 88 MLS/HR Calcitriol (Rocaltrol Cap) 3 mcg QAM PO 03/30/17 08:00 04/17/17 08:59 04/06/17 08:15 3 MCG Calcium Gluconate 2000 mg/Sodium Chloride 520 ml @ 125 mls/hr Q4H10M IV 03/29/17 16:30 03/31/17 15:59 DC 03/31/17 12:44 125 MLS/HR Magnesium Sulfate 1 gm/Prmx 100 ml @ 100 mls/hr Q1H IV 03/30/17 08:30 03/30/17 10:29 DC 03/30/17 11:49 100 MLS/HR Potassium Phosphate 15 mmol/ Sodium Chloride 255 ml @ 113.333 mls/hr ONE ONCE IV 03/30/17 08:30 03/30/17 10:44 DC 03/30/17 09:37 113.333 MLS/HR Hydrochlorothiazide (Hydrochlorothiazide Tab) 25 mg QAM PO 03/30/17 13:00 04/29/17 12:59 04/06/17 08:17 25 MG Calcium Gluconate 3000 mg/Sodium Chloride 130 ml @ 260 mls/hr NOW STAT IV 03/31/17 07:13 03/31/17 07:42 DC 03/31/17 07:53 260 MLS/HR Sodium Phosphate 15 mmol/Sodium Chloride 255 ml @ 85 mls/hr NOW STAT IV 03/31/17 09:42 03/31/17 12:41 DC 03/31/17 11:10 85 MLS/HR Calcium Gluconate 4000 mg/Sodium Chloride 540 ml @ 125 mls/hr Q4H20M IV 03/31/17 17:00 04/01/17 11:19 DC 04/01/17 11:14 125 MLS/HR Calcium Gluconate 2000 mg/Sodium Chloride 520 ml @ 125 mls/hr Q4H10M IV 04/01/17 15:30 04/02/17 13:24 DC 04/02/17 12:36 125 MLS/HR Sodium Phosphate 9 mmol/Sodium Chloride 253 ml @ 88 mls/hr TODAY@1445 ONCE IV 04/01/17 14:45 04/01/17 17:37 DC 04/01/17 15:42 88 MLS/HR Nystatin (Mycostatin Susp) 5 ml QID PO 04/01/17 17:00 04/11/17 16:59 04/06/17 12:28 5 ML Calcium Gluconate 4000 mg/Sodium Chloride 540 ml @ 125 mls/hr Q4H20M IV 04/03/17 08:30 04/03/17 12:49 DC 04/03/17 08:29 125 MLS/HR Magnesium Sulfate 1 gm/Prmx 100 ml @ 100 mls/hr Q1H IV 04/03/17 18:00 04/03/17 19:59 DC 04/03/17 19:02 100 MLS/HR Calcium Gluconate 4000 mg/Sodium Chloride 540 ml @ 125 mls/hr Q4H20M ONCE IV 04/03/17 18:00 04/03/17 22:19 DC 04/03/17 17:55 125 MLS/HR Calcium Gluconate 4000 mg/Sodium Chloride 540 ml @ 125 mls/hr Q4H20M IV 04/03/17 23:00 04/05/17 17:36 DC 04/05/17 15:30 125 MLS/HR Calcium Gluconate 4000 mg/Sodium Chloride 540 ml @ 125 mls/hr Q4H20M IV 04/06/17 09:15 05/06/17 09:14 04/06/17 14:07 125 MLS/HR (Callie Arvizu CRNP) Objective Vital Signs Date Time Temp Pulse Resp B/P (MAP) Pulse Ox O2 Delivery O2 Flow Rate FiO2 04/06/17 08:37 96 Room Air 04/06/17 08:15 Room Air 04/06/17 07:49 36.9 90 14 110/60 (77) 96 Room Air 04/06/17 00:48 Room Air 04/06/17 00:24 36.9 97 18 102/49 (66) 96 Room Air 04/05/17 15:24 37.0 91 20 129/66 (87) 98 Room Air 04/05/17 15:23 Room Air (Callie Arvizu CRNP) Laboratory Results Last 24 Hours Test 04/05/17 16:14 04/06/17 05:43 Sodium Level 138 mmol/L 139 mmol/L Potassium Level 4.6 mmol/L 4.3 mmol/L Chloride Level 108 mmol/L 108 mmol/L Carbon Dioxide Level 23 mmol/L 25 mmol/L Anion Gap 8.0 mmol/L 6.0 mmol/L Blood Urea Nitrogen 8 mg/dl 9 mg/dl Creatinine 1.03 mg/dl 1.04 mg/dl Est Creatinine Clear Calc Drug Dose 47.3 ml/min 46.8 ml/min Estimated GFR () 77.5 76.6 Estimated GFR (Non- 66.9 66.1 BUN/Creatinine Ratio 8.0 8.8 Random Glucose 92 mg/dl 81 mg/dl Calcium Level 8.5 mg/dl 6.8 mg/dl Magnesium Level 1.8 mg/dl (Callie Arvizu CRNP) Assessment and Plan Mr. Greene is an 81 year old man with a history of prostate cancer and osteoblastic mets that presented with fatigue and found to have severe hypocalcemia thought secondary to his Denosumab (03/02/2017). Hypocalcemia/hypophosphatemia - The patient has now been on 3 + weeks of IV calcium and oral calcium therapy - Secondary to Denosumab injection in the setting of metastatic prostate CA - Calcium dropped to 6.8 this morning after calcium infusion was held over night - Daily calcium gluconate infusion 4000 mg q 4h restarted - arranging for home infusion of IV ca gluconate, probably an overnight 10 hour infusion of 24g Ca - will also need calcium levels drawn three times a week by home health - this will be managed by nephrology - Continue oral Calcium and Calcitriol - Vitamin D level wnl - Patient was started on hctz to help with Ca levels - Nephrology consulted Hypomagnesemia/ Hypophosphatemia resolved UTI; Stenotrophomonas and enterococcus; chronic bey - Bactrim/ Amoxil course completed (10 day course) --> Initially treated with Rocephin on admission Superficial thrombophlebitis of right arm- resolved - Ultrasound confirmation of superficial thrombus involving the cephalic vein - Avoid IV line in right UE - Warm compress Prostate Ca with mets to bone - Continue tamsulosin, finasteride - patient continues to deny pain Intertrigo/thrush - Nystatin swish and swallow, nystatin powder for groin Seborrheic dermatitis - Completed 14 day course of Desonide for face CKD III stable - Avoid nephrotoxins where possible - Monitor with daily BMP DVT Prophylaxis - Heparin subq bid Code Status - DNR Dispo: awaiting home health arrangements for nocturnal Calcium infusions (Callie Arvizu ., ALMA ROSA) [employer] Physician Supervision Note: I interviewed and examined the patient. Discussed with Callie Arvizu NP and agree with findings and plan as documented in the note. Any exceptions or clarifications are listed here: None Patient is about the same continue supplemental intravenously with calcium without intravenous supplementation is calcium plummets at the 6 range he has no other complaints or problems Vital signs are stable Cardiac regular lungs are clear no signs of volume overload Chemotherapy-induced hypocalcemia with symptoms requiring oral and intravenous repletion with attempts made to arrange for home infusion until that time will continues to supplement him occasionally checking him off of the IV supplementation as this should go away it appeared time after his chemo Documented By: Joe Moran (Joe Moran M.D.)
[2017-04-06] MEDS: TAMSULOSIN HCL 0.4 MG CAP PO SCH (20:49)
[2017-04-06] MEDS: RANITIDINE HCL 150 MG TAB PO SCH (20:50)
[2017-04-07 00:11] VITALS: BP 139/93; PULSE 80; PULSE 84; TEMP 36.9; O2SAT 96
[2017-04-07] MEDS: SODIUM CHLORIDE 0.9% IV SCH ×5 (03:20→21:08)
[2017-04-07] MEDS: CALCIUM GLUCONATE IV SCH ×5 (03:20→21:08)
[2017-04-07 06:38] LABS: CALCIUM 7.8 mg/dl (8.5-10.1); CREATININE 0.98 mg/dl (0.60-1.40); POTASSIUM 4.5 mmol/L (3.5-5.1)
[2017-04-07 07:26] VITALS: BP 92/47; PULSE 76; TEMP 37; O2SAT 94
[2017-04-07] MEDS: NYSTATIN POWDER 15GM BTL EXT SCH ×2 (09:30→21:02)
[2017-04-07] MEDS: CALCITRIOL 0.25 MCG CAP PO SCH (09:32)
[2017-04-07] MEDS: HYDROCHLOROTHIAZIDE 25 MG TAB PO SCH (09:32)
[2017-04-07] MEDS: NYSTATIN SUSP 500,000 U/5 ML UDC PO SCH ×4 (09:33→21:00)
[2017-04-07] MEDS: POT PHOSPHATE MONOBASIC W/ SOD TAB PO SCH ×4 (09:33→21:01)
[2017-04-07] MEDS: CALCIUM CARBONATE 500 MG CHEWABLE PO SCH ×4 (09:34→21:03)
[2017-04-07] MEDS: CALCIUM CARBONATE 1250MG TAB PO SCH ×4 (09:34→21:01)
[2017-04-07] MEDS: PANTOprazole SOD 40 MG TAB PO SCH (09:35)
[2017-04-07] MEDS: HEPARIN SOD 5000 UNIT/0.5 ML CARP SQ SCH ×2 (09:37→21:07)
[2017-04-07] MEDS: DOCUSATE SODIUM 100 MG CAP PO SCH ×2 (09:38→21:02)
--- NOTE | 2017-04-07 11:28 | Nephrology Progress Note ---
Nephrology Progress Note Date of Service Apr 07, 2017. Chief Complaint Hypocalcemia, metastatic prostate cancer Subjective Mr. Greene was seen & examined in his hospital room this morning. His son was present at bedside. Mr. Greene is tolerating IV hydration. He currently denies muscle cramping, dyspnea or angina. Review of Systems Constitutional: No fever Cardiovascular: No chest pain Respiratory: No dyspnea at rest Abdomen: No pain, No nausea, No vomiting Extremities: No leg edema A complete review of systems was performed. Pertinent positives are noted above. All other systems are negative. Vital Signs Last 8 Hrs Date Time Temp Pulse Resp B/P (MAP) Pulse Ox O2 Delivery O2 Flow Rate FiO2 04/07/17 09:47 Room Air 04/07/17 07:26 37.0 76 15 92/47 (62) 94 Room Air Last Recorded Weight Weight (Kilograms): 63.700 Physical Exam General Appearance: no apparent distress Head: normocephalic, atraumatic Eyes: PERRL, EOMI Neck: no adenopathy Respiratory/Chest: lungs clear Cardiovascular: regular rate, rhythm Abdomen/GI: normal bowel sounds, non tender, soft Extremities/Musculoskelatal: no calf tenderness, no pedal edema Neurologic/Psych: alert, oriented x 3 Social History Drug Use: none Marital Status: Housing Status: lives with family (lives with son) 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 04/07/17 05:18 Test 04/07/17 05:18 Anion Gap 6.0 mmol/L (3-11) Est Creatinine Clear Calc Drug Dose 49.7 ml/min Estimated GFR () 82.3 Estimated GFR (Non- 71.0 BUN/Creatinine Ratio 10.1 (10-20) Calcium Level 7.8 mg/dl (8.5-10.1) Allergies Coded Allergies: No Known Allergies (Unverified , 03/15/17) Medications Current Inpatient Medications Medications (Trade) Dose Ordered Sig/Jonathan Route Start Time Stop Time Status Last Admin Dose Admin Acetaminophen (Tylenol Tab) 650 mg Q4H PRN PO 03/15/17 14:15 04/14/17 14:14 Tamsulosin HCl (Flomax Cap) 0.8 mg HS PO 03/15/17 21:00 04/14/17 20:59 04/06/17 20:49 0.8 MG Miscellaneous Information (Order Awaiting Action) 1 ea QS N/A 03/15/17 16:00 04/14/17 15:59 Pantoprazole Sodium (Protonix Tab) 40 mg QAM PO 03/16/17 09:00 04/15/17 08:59 04/07/17 09:35 40 MG Ranitidine HCl (zANTac TAB) 300 mg HS PO 03/15/17 21:00 04/14/17 20:59 04/06/17 20:50 300 MG Polyethylene (Miralax Powder Packet) 17 gm DAILY PRN PO 03/15/17 15:00 04/14/17 14:59 Docusate Sodium (coLACE CAP) 100 mg BID PO 03/15/17 21:00 04/14/17 20:59 04/07/17 09:38 100 MG Bisacodyl (Dulcolax Supp) 10 mg DAILY PRN [place] 03/15/17 15:00 04/14/17 14:59 Heparin Sodium (Porcine) (Heparin Sq 5000 Unit/0.5ml) 5,000 unit Q12 SQ 03/15/17 21:00 04/14/17 20:59 04/07/17 09:37 5,000 UNIT Nystatin (Mycostatin Powder) 1 appln BID EXT 03/15/17 21:00 04/14/17 20:59 04/07/17 09:30 1 APPLN Calcium Carbonate (Tums Chew Tab) 2,000 mg QID PO 03/16/17 17:00 04/15/17 08:59 04/07/17 09:34 2,000 MG Potassium/ Phosphorus/Sodium (Phospha 250 Neutral 155-852-130 Mg) 1 tab QID PO 03/16/17 17:00 04/15/17 16:59 04/07/17 09:33 1 TAB Calcium Carbonate (oS-Randy 500 TAB) 1,250 mg QID PO 03/18/17 09:00 04/17/17 08:59 04/07/17 09:34 1,250 MG Miscellaneous (Tap Water Enema) 1 ea Q2D PRN [place] 03/18/17 13:30 04/17/17 13:29 Heparin Sodium (Porcine) (Heparin 10 Unit/ ml 5 ml Flush) 5 ml PRN PRN FLUSH 03/18/17 15:30 04/17/17 15:29 04/06/17 05:39 5 ML Heparin Sodium (Porcine) (Heparin 10 Unit/ ml 5 ml Flush) 5 ml PRN PRN FLUSH 03/29/17 11:00 04/28/17 10:59 Calcitriol (Rocaltrol Cap) 3 mcg QAM PO 03/30/17 08:00 04/17/17 08:59 04/07/17 09:32 3 MCG Hydrochlorothiazide (Hydrochlorothiazide Tab) 25 mg QAM PO 03/30/17 13:00 04/29/17 12:59 04/07/17 09:32 25 MG Nystatin (Mycostatin Susp) 5 ml QID PO 04/01/17 17:00 04/11/17 16:59 04/07/17 09:33 5 ML Calcium Gluconate 4000 mg/Sodium Chloride 540 ml @ 125 mls/hr Q4H20M IV 04/06/17 09:15 05/06/17 09:14 04/07/17 07:53 125 MLS/HR Impression (1) Hypocalcemia (2) Prostate cancer (3) Hypertension Mr. 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 He developed severe hypocalcemia following treatment with Denosumab. Renal function is normal based on eGFR. EKG documented new QTc prolongation which improved with treatment. 25OH D deficiency documented on presentation. This was treated with ergocalciferol 00420 IU and cholecalciferol. Calcitriol is being provided. Aggressive replacement with PO and IV calcium continues. The patient has associated hypomagnesemia. This is being treated with IV magnesium sulfate. Based on review of the literature, medium time to calcium jonny is 21 days and median time to correction of hypocalcemia is 71 days. The patient continues to require IV calcium gluconate. Recommendations HYPOCALCEMIA: -- Continue Calcium gluconate infusion at 1 gm/hr. Will consider reducing or stopping infusion when corrected calcium 9.5 or higher -- Recheck serum calcium this afternoon -- Continue calcitriol 3 mcg daily -- Increase OsCal to 2500 QID -- Continue TUMS 2 grams TID HYPOMAGNESEMIA: -- Monitor magnesium and replace with IV mag as needed -- Monitor BMP with Mg and phosphorus daily OTHER: -- OOB to chair daily -- Continue physical therapy for strengthening
--- NOTE | 2017-04-07 11:58 | Hospitalist Progress Note ---
Hospitalist Progress Note Date of Service Apr 07, 2017. (Susanna Hadley ., PA-C) Subjective Pt evaluation today including: conversation w/ patient, conversation w/ family (son at bedside ), physical exam, lab review, review of studies, review of inpatient medication list Voiding: bey catheter in place Patient resting in bed. Feeling well today. Eating and drinking OK. Admits to ongoing cough x2-3 days. Non-worsening. Mild sputum production- white/clear. No SOB/hypoxia. No fevers. Encouraged ambulation and OOB in chair. Denies any pain. Patient denies any fever, chills, sweats, lightheadedness, dizziness, vision changes, CP, palpitations, edema, SOB, wheezing, abdominal pain, nausea, vomiting, diarrhea, urinary symptoms, melena, numbness/tingling, weakness, muscle/joint pain, anxiety/depression, active bleeding, or new skin discoloration/changes. (Susanna Hadley ., PA-C) Medications Current Inpatient Medications Medications (Trade) Dose Ordered Sig/Jonathan Route Start Time Stop Time Status Last Admin Dose Admin Acetaminophen (Tylenol Tab) 650 mg Q4H PRN PO 03/15/17 14:15 04/14/17 14:14 Tamsulosin HCl (Flomax Cap) 0.8 mg HS PO 03/15/17 21:00 04/14/17 20:59 04/06/17 20:49 0.8 MG Miscellaneous Information (Order Awaiting Action) 1 ea QS N/A 03/15/17 16:00 04/14/17 15:59 Pantoprazole Sodium (Protonix Tab) 40 mg QAM PO 03/16/17 09:00 04/15/17 08:59 04/07/17 09:35 40 MG Ranitidine HCl (zANTac TAB) 300 mg HS PO 03/15/17 21:00 04/14/17 20:59 04/06/17 20:50 300 MG Polyethylene (Miralax Powder Packet) 17 gm DAILY PRN PO 03/15/17 15:00 04/14/17 14:59 Docusate Sodium (coLACE CAP) 100 mg BID PO 03/15/17 21:00 04/14/17 20:59 04/07/17 09:38 100 MG Bisacodyl (Dulcolax Supp) 10 mg DAILY PRN [place] 03/15/17 15:00 04/14/17 14:59 Heparin Sodium (Porcine) (Heparin Sq 5000 Unit/0.5ml) 5,000 unit Q12 SQ 03/15/17 21:00 04/14/17 20:59 04/07/17 09:37 5,000 UNIT Nystatin (Mycostatin Powder) 1 appln BID EXT 03/15/17 21:00 04/14/17 20:59 04/07/17 09:30 1 APPLN Calcium Carbonate (Tums Chew Tab) 2,000 mg QID PO 03/16/17 17:00 04/15/17 08:59 04/07/17 09:34 2,000 MG Potassium/ Phosphorus/Sodium (Phospha 250 Neutral 155-852-130 Mg) 1 tab QID PO 03/16/17 17:00 04/15/17 16:59 04/07/17 09:33 1 TAB Calcium Carbonate (oS-Randy 500 TAB) 1,250 mg QID PO 03/18/17 09:00 04/17/17 08:59 04/07/17 09:34 1,250 MG Miscellaneous (Tap Water Enema) 1 ea Q2D PRN [place] 03/18/17 13:30 04/17/17 13:29 Heparin Sodium (Porcine) (Heparin 10 Unit/ ml 5 ml Flush) 5 ml PRN PRN FLUSH 03/18/17 15:30 04/17/17 15:29 04/06/17 05:39 5 ML Heparin Sodium (Porcine) (Heparin 10 Unit/ ml 5 ml Flush) 5 ml PRN PRN FLUSH 03/29/17 11:00 04/28/17 10:59 Calcitriol (Rocaltrol Cap) 3 mcg QAM PO 03/30/17 08:00 04/17/17 08:59 04/07/17 09:32 3 MCG Hydrochlorothiazide (Hydrochlorothiazide Tab) 25 mg QAM PO 03/30/17 13:00 04/29/17 12:59 04/07/17 09:32 25 MG Nystatin (Mycostatin Susp) 5 ml QID PO 04/01/17 17:00 04/11/17 16:59 04/07/17 09:33 5 ML Calcium Gluconate 4000 mg/Sodium Chloride 540 ml @ 125 mls/hr Q4H20M IV 04/06/17 09:15 05/06/17 09:14 04/07/17 07:53 125 MLS/HR (Susanna Hadley PA-C) Objective Vital Signs Date Time Temp Pulse Resp B/P (MAP) Pulse Ox O2 Delivery O2 Flow Rate FiO2 04/07/17 09:47 Room Air 04/07/17 07:26 37.0 76 15 92/47 (62) 94 Room Air 04/07/17 00:11 36.9 84 16 139/93 (108) 96 Room Air 80 04/07/17 00:01 Room Air 04/06/17 17:32 Room Air 04/06/17 14:44 37.1 73 16 103/52 (69) 96 Room Air (Susanna Hadley PA-C) Physical Exam General Appearance: no apparent distress Eyes: normal inspection, PERRL ENT: hearing grossly normal Neck: supple Respiratory/Chest: lungs clear, no respiratory distress, no accessory muscle use Cardiovascular: regular rate, rhythm Abdomen: normal bowel sounds, non tender, soft Extremities: no pedal edema, no calf tenderness Neurologic/Psychiatric: alert, normal mood/affect, oriented x 3 Skin: normal color, warm/dry, no rash (Susanna Hadley PA-C) Laboratory Results Last 24 Hours Test 04/07/17 05:18 Sodium Level 139 mmol/L Potassium Level 4.5 mmol/L Chloride Level 109 mmol/L Carbon Dioxide Level 24 mmol/L Anion Gap 6.0 mmol/L Blood Urea Nitrogen 10 mg/dl Creatinine 0.98 mg/dl Est Creatinine Clear Calc Drug Dose 49.7 ml/min Estimated GFR () 82.3 Estimated GFR (Non- 71.0 BUN/Creatinine Ratio 10.1 Random Glucose 82 mg/dl Calcium Level 7.8 mg/dl (Susanna Hadley PA-C) Assessment and Plan Mr. Greene is an 81 year old man with a history of prostate cancer and osteoblastic mets that presented with fatigue and found to have severe hypocalcemia thought secondary to his Denosumab (03/02/2017). 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: Continue Flomax and Proscar Cough w/ white sputum production: - No fevers, no SOB/hypoxia, lungs clear - Encouraged ambulation and OOB in chair - Recheck CBC tomorrow AM - Continue to monitor Stenotrophomonas and enterococcus UTI w/ chronic Bey : Completed 10 day course of abx JONATHAN on CKD stage II- RESOLVED: Follow PRP Superficial thrombophlebitis of right arm- RESOLVED: - Ultrasound confirmation of superficial thrombus involving the cephalic vein - Avoid IV line in right UE - Warm compress PRN for pain management Intertrigo/thrush: Nystatin swish and swallow x7 days- last day 04/09 and Nystatin powder for groin Seborrheic dermatitis: Completed 14 day course of Desonide for face GI prophylaxis: Zantac + Protonix DVT prophylaxis: Heparin SQ BID Code status: LEVEL V, DNR Dispo: Stable for discharge pending IV Calcium injection setup- CM and PT/OT following (Susanna Hadley ., PAMayraC) PA Physician Supervision Note: I interviewed and examined the patient. Discussed with Susanna REYES and agree with findings and plan as documented in the note. Any exceptions or clarifications are listed here: None This pt is about his usual self today but brings up a cough complaint, white sputum his chest is clear vitals are stable Ca continues to need replacement via parenteral supplementation Documented By: Joe Moran (Joe Moran M.D.)
[2017-04-07 16:29] VITALS: BP 123/57; PULSE 88; TEMP 36.8; O2SAT 97
[2017-04-07] MEDS: RANITIDINE HCL 150 MG TAB PO SCH (21:01)
[2017-04-07] MEDS: TAMSULOSIN HCL 0.4 MG CAP PO SCH (21:03)
[2017-04-08 00:08] VITALS: BP 109/63; PULSE 75; TEMP 37; O2SAT 96
[2017-04-08] MEDS: SODIUM CHLORIDE 0.9% IV SCH ×6 (01:30→22:15)
[2017-04-08] MEDS: CALCIUM GLUCONATE IV SCH ×6 (01:30→22:15)
[2017-04-08 05:42] LABS: HEMATOCRIT 31.1 % (42-52); HEMOGLOBIN 9.8 g/dL (14.0-18.0); MEAN CELL VOLUME 89.4 fL (80-100); MEAN CORPUSCULAR HEMOGLOBIN 28.2 pg (25-34); MEAN CORPUSCULAR HGB CONC 31.5 g/dl (32-36); MEAN PLATELET VOLUME 8.1 fL (7.4-10.4); PLATELET COUNT 136 K/uL (130-400); RED CELL DISTRIBUTION WIDTH CV 18.2 % (11.5-14.5); RED CELL DISTRIBUTION WIDTH SD 59.5 fL (36.4-46.3); WHITE BLOOD COUNT 3.59 K/uL (4.8-10.8)
[2017-04-08 06:13] LABS: CREATININE 1.03 mg/dl (0.60-1.40); PHOSPHORUS 1.8 mg/dl (2.5-4.9); POTASSIUM 4.5 mmol/L (3.5-5.1)
[2017-04-08] MEDS ORDERED: SODIUM PHOSPHATE 3 MMOL/1 ML INFUSION IV STA (07:26)
[2017-04-08] MEDS: NYSTATIN POWDER 15GM BTL EXT SCH ×2 (08:00→20:00)
[2017-04-08] MEDS: MAGNESIUM SULFATE 1GM / D5W 1 GM in PREMIXED IN D5W 100 ML IV SCH ×2 (08:03→09:10)
[2017-04-08] MEDS: DOCUSATE SODIUM 100 MG CAP PO SCH ×2 (08:04→21:14)
[2017-04-08] MEDS: POT PHOSPHATE MONOBASIC W/ SOD TAB PO SCH ×4 (08:04→21:15)
[2017-04-08] MEDS: HYDROCHLOROTHIAZIDE 25 MG TAB PO SCH (08:04)
[2017-04-08] MEDS: PANTOprazole SOD 40 MG TAB PO SCH (08:04)
[2017-04-08] MEDS: CALCIUM CARBONATE 500 MG CHEWABLE PO SCH ×4 (08:04→21:16)
[2017-04-08] MEDS: CALCIUM CARBONATE 1250MG TAB PO SCH ×4 (08:05→21:16)
[2017-04-08] MEDS: NYSTATIN SUSP 500,000 U/5 ML UDC PO SCH ×4 (08:05→21:14)
[2017-04-08] MEDS: CALCITRIOL 0.25 MCG CAP PO SCH (08:06)
[2017-04-08] MEDS: HEPARIN SOD 5000 UNIT/0.5 ML CARP SQ SCH ×2 (08:11→21:20)
[2017-04-08 08:25] VITALS: BP 119/66; PULSE 69; TEMP 36.9; O2SAT 96
[2017-04-08] MEDS ORDERED: SODIUM PHOSPHATE INJ 15 MMOL in SODIUM CHLORIDE 0.9% 250ML 250 ML IV ONE (10:00)
--- NOTE | 2017-04-08 10:50 | Hospitalist Progress Note ---
Hospitalist Progress Note Date of Service Apr 08, 2017. (Susnana Hadley ., PA-C) Subjective Pt evaluation today including: conversation w/ patient, physical exam, lab review, review of inpatient medication list Voiding: bey catheter in place (draining clear/yellow urine) Patient sitting at bedside, eating breakfast. Feeling well. Still has a cough, not bringing up much sputum- white/clear. Believes cough is improving. No SOB or wheezing. At times has a coughing fit- Tessalon Perles PRN added. Patient denies any fever, chills, sweats, lightheadedness, dizziness, vision changes, CP, palpitations, edema, SOB, wheezing, abdominal pain, nausea, vomiting, diarrhea, urinary symptoms, melena, numbness/tingling, weakness, muscle/joint pain, anxiety/depression, active bleeding, or new skin discoloration/changes. (Susanna Hadley ., PA-C) Medications Current Inpatient Medications Medications (Trade) Dose Ordered Sig/Jonathan Route Start Time Stop Time Status Last Admin Dose Admin Acetaminophen (Tylenol Tab) 650 mg Q4H PRN PO 03/15/17 14:15 04/14/17 14:14 Tamsulosin HCl (Flomax Cap) 0.8 mg HS PO 03/15/17 21:00 04/14/17 20:59 04/07/17 21:03 0.8 MG Miscellaneous Information (Order Awaiting Action) 1 ea QS N/A 03/15/17 16:00 04/14/17 15:59 Pantoprazole Sodium (Protonix Tab) 40 mg QAM PO 03/16/17 09:00 04/15/17 08:59 04/08/17 08:04 40 MG Ranitidine HCl (zANTac TAB) 300 mg HS PO 03/15/17 21:00 04/14/17 20:59 04/07/17 21:01 300 MG Polyethylene (Miralax Powder Packet) 17 gm DAILY PRN PO 03/15/17 15:00 04/14/17 14:59 Docusate Sodium (coLACE CAP) 100 mg BID PO 03/15/17 21:00 04/14/17 20:59 04/08/17 08:04 100 MG Bisacodyl (Dulcolax Supp) 10 mg DAILY PRN [place] 03/15/17 15:00 04/14/17 14:59 Heparin Sodium (Porcine) (Heparin Sq 5000 Unit/0.5ml) 5,000 unit Q12 SQ 03/15/17 21:00 04/14/17 20:59 04/08/17 08:11 5,000 UNIT Nystatin (Mycostatin Powder) 1 appln BID EXT 03/15/17 21:00 04/14/17 20:59 04/08/17 08:00 1 APPLN Calcium Carbonate (Tums Chew Tab) 2,000 mg QID PO 03/16/17 17:00 04/15/17 08:59 04/08/17 08:04 2,000 MG Potassium/ Phosphorus/Sodium (Phospha 250 Neutral 155-852-130 Mg) 1 tab QID PO 03/16/17 17:00 04/15/17 16:59 04/08/17 08:04 1 TAB Calcium Carbonate (oS-Randy 500 TAB) 1,250 mg QID PO 03/18/17 09:00 04/17/17 08:59 04/08/17 08:05 1,250 MG Miscellaneous (Tap Water Enema) 1 ea Q2D PRN [place] 03/18/17 13:30 04/17/17 13:29 Heparin Sodium (Porcine) (Heparin 10 Unit/ ml 5 ml Flush) 5 ml PRN PRN FLUSH 03/18/17 15:30 04/17/17 15:29 04/06/17 05:39 5 ML Heparin Sodium (Porcine) (Heparin 10 Unit/ ml 5 ml Flush) 5 ml PRN PRN FLUSH 03/29/17 11:00 04/28/17 10:59 Calcitriol (Rocaltrol Cap) 3 mcg QAM PO 03/30/17 08:00 04/17/17 08:59 04/08/17 08:06 3 MCG Hydrochlorothiazide (Hydrochlorothiazide Tab) 25 mg QAM PO 03/30/17 13:00 04/29/17 12:59 04/08/17 08:04 25 MG Nystatin (Mycostatin Susp) 5 ml QID PO 04/01/17 17:00 04/11/17 16:59 04/08/17 08:05 5 ML Calcium Gluconate 4000 mg/Sodium Chloride 540 ml @ 125 mls/hr Q4H20M IV 04/06/17 09:15 05/06/17 09:14 04/08/17 09:10 125 MLS/HR Sodium Phosphate 15 mmol/Sodium Chloride 255 ml @ 88 mls/hr 1000 ONCE IV 04/08/17 10:00 04/08/17 12:53 04/08/17 10:07 88 MLS/HR Benzonatate (Tessalon Perles Cap) 100 mg TID PRN PO 04/08/17 10:45 05/08/17 10:44 UNV (Susanna Hadley PA-C) Objective Vital Signs Date Time Temp Pulse Resp B/P (MAP) Pulse Ox O2 Delivery O2 Flow Rate FiO2 04/08/17 08:25 36.9 69 16 119/66 (83) 96 Room Air 04/08/17 00:08 37.0 75 21 109/63 (78) 96 Room Air 04/08/17 00:00 Room Air 04/07/17 17:08 Room Air 04/07/17 16:29 36.8 88 18 123/57 (79) 97 Room Air (Susanna Hadley, ROBERT-C) Physical Exam General Appearance: no apparent distress Eyes: normal inspection, PERRL ENT: hearing grossly normal Neck: supple Respiratory/Chest: lungs clear, no respiratory distress, no accessory muscle use Cardiovascular: regular rate, rhythm Abdomen: normal bowel sounds, non tender, soft Extremities: no pedal edema, no calf tenderness Neurologic/Psychiatric: alert, normal mood/affect, oriented x 3 Skin: normal color, warm/dry, no rash (Susanna Hadley, ROBERT-C) Laboratory Results Last 24 Hours Test 04/07/17 14:59 04/08/17 05:03 Calcium Level 8.2 mg/dl 8.0 mg/dl White Blood Count 3.59 K/uL Red Blood Count 3.48 M/uL Hemoglobin 9.8 g/dL Hematocrit 31.1 % Mean Corpuscular Volume 89.4 fL Mean Corpuscular Hemoglobin 28.2 pg Mean Corpuscular Hemoglobin Concent 31.5 g/dl RDW Standard Deviation 59.5 fL RDW Coefficient of Variation 18.2 % Platelet Count 136 K/uL Mean Platelet Volume 8.1 fL Sodium Level 138 mmol/L Potassium Level 4.5 mmol/L Chloride Level 108 mmol/L Carbon Dioxide Level 22 mmol/L Anion Gap 8.0 mmol/L Blood Urea Nitrogen 10 mg/dl Creatinine 1.03 mg/dl Est Creatinine Clear Calc Drug Dose 47.3 ml/min Estimated GFR () 77.5 Estimated GFR (Non- 66.9 BUN/Creatinine Ratio 10.1 Random Glucose 85 mg/dl Phosphorus Level 1.8 mg/dl Magnesium Level 1.6 mg/dl (Susanna Hadley PA-C) Assessment and Plan Mr. Greene is an 81 year old man with a history of prostate cancer and osteoblastic mets that presented with fatigue and found to have severe hypocalcemia thought secondary to his Denosumab (03/02/2017). 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: Continue Flomax and Proscar Cough w/ white/clear sputum production: - No fevers, no SOB/hypoxia, lungs clear, no white count - Encouraged ambulation and OOB in chair - Tessalon Perles TID PRN for cough - Continue to monitor Stenotrophomonas and enterococcus UTI w/ chronic Bey : Completed 10 day course of abx JONATHAN on CKD stage II- RESOLVED: Follow PRP Superficial thrombophlebitis of right arm- RESOLVED: - Ultrasound confirmation of superficial thrombus involving the cephalic vein - Avoid IV line in right UE - Warm compress PRN for pain management Intertrigo/thrush: Nystatin swish and swallow x7 days- last day 04/09 and Nystatin powder for groin Seborrheic dermatitis: Completed 14 day course of Desonide for face GI prophylaxis: Zantac + Protonix DVT prophylaxis: Heparin SQ BID Code status: LEVEL V, DNR Dispo: Stable for discharge pending IV Calcium injection setup- CM and PT/OT following (Susanna Hadley PA-C) PA Physician Supervision Note: I interviewed and examined the patient. Discussed with Susanna REYES and agree with findings and plan as documented in the note. Any exceptions or clarifications are listed here: None Patient offers no complaints says his cough is better he is able to recite to me the months backward from January today as we have asked him this questions for last 2 days Vitals are stable Labs this morning show low magnesium and phosphorus which are replete today IV Heart regular lungs are clear Persistent hypocalcemia from chemotherapy requiring intravenous repletion Documented By: Joe Moran (Joe Moran M.D.)
--- NOTE | 2017-04-08 10:54 | Nephrology Progress Note ---
Nephrology Progress Note Date of Service Apr 08, 2017. Chief Complaint Hypocalcemia, metastatic prostate cancer Subjective Mr. Greene was seen & examined in his hospital room this morning. He has completed infusions of Mg & PO4. He remains on a continuous Ca gluconate infusion. Mr. Greene states that he is tolerating IV medications without dyspnea or swelling. He was able to participate in physical therapy yesterday and walked in the hallway with assistance. He voices no new medical concerns at this time. Review of Systems Constitutional: No fever Cardiovascular: No chest pain Respiratory: No dyspnea at rest Abdomen: No pain, No nausea, No vomiting Extremities: No leg edema A complete review of systems was performed. Pertinent positives are noted above. All other systems are negative. Vital Signs Last 8 Hrs Date Time Temp Pulse Resp B/P (MAP) Pulse Ox O2 Delivery O2 Flow Rate FiO2 04/08/17 08:25 36.9 69 16 119/66 (83) 96 Room Air Last Recorded Weight Weight (Kilograms): 63.700 Physical Exam General Appearance: no apparent distress Head: normocephalic, atraumatic Eyes: PERRL, EOMI Neck: no adenopathy Respiratory/Chest: lungs clear, no respiratory distress Cardiovascular: regular rate, rhythm Abdomen/GI: normal bowel sounds, non tender, soft Extremities/Musculoskelatal: no calf tenderness, no pedal edema Neurologic/Psych: alert, oriented x 3 Social History Drug Use: none Marital Status: Housing Status: lives with family (lives with son) 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 04/08/17 05:03 04/08/17 05:03 Test 04/07/17 14:59 04/08/17 05:03 Calcium Level 8.2 mg/dl (8.5-10.1) 8.0 mg/dl (8.5-10.1) Red Blood Count 3.48 M/uL (4.7-6.1) Mean Corpuscular Volume 89.4 fL (80-100) Mean Corpuscular Hemoglobin 28.2 pg (25-34) Mean Corpuscular Hemoglobin Concent 31.5 g/dl (32-36) RDW Standard Deviation 59.5 fL (36.4-46.3) RDW Coefficient of Variation 18.2 % (11.5-14.5) Mean Platelet Volume 8.1 fL (7.4-10.4) Anion Gap 8.0 mmol/L (3-11) Est Creatinine Clear Calc Drug Dose 47.3 ml/min Estimated GFR () 77.5 Estimated GFR (Non- 66.9 BUN/Creatinine Ratio 10.1 (10-20) Phosphorus Level 1.8 mg/dl (2.5-4.9) Magnesium Level 1.6 mg/dl (1.8-2.4) Allergies Coded Allergies: No Known Allergies (Unverified , 03/15/17) Medications Current Inpatient Medications Medications (Trade) Dose Ordered Sig/Jonathan Route Start Time Stop Time Status Last Admin Dose Admin Acetaminophen (Tylenol Tab) 650 mg Q4H PRN PO 03/15/17 14:15 04/14/17 14:14 Tamsulosin HCl (Flomax Cap) 0.8 mg HS PO 03/15/17 21:00 04/14/17 20:59 04/07/17 21:03 0.8 MG Miscellaneous Information (Order Awaiting Action) 1 ea QS N/A 03/15/17 16:00 04/14/17 15:59 Pantoprazole Sodium (Protonix Tab) 40 mg QAM PO 03/16/17 09:00 04/15/17 08:59 04/08/17 08:04 40 MG Ranitidine HCl (zANTac TAB) 300 mg HS PO 03/15/17 21:00 04/14/17 20:59 04/07/17 21:01 300 MG Polyethylene (Miralax Powder Packet) 17 gm DAILY PRN PO 03/15/17 15:00 04/14/17 14:59 Docusate Sodium (coLACE CAP) 100 mg BID PO 03/15/17 21:00 04/14/17 20:59 04/08/17 08:04 100 MG Bisacodyl (Dulcolax Supp) 10 mg DAILY PRN [place] 03/15/17 15:00 04/14/17 14:59 Heparin Sodium (Porcine) (Heparin Sq 5000 Unit/0.5ml) 5,000 unit Q12 SQ 03/15/17 21:00 04/14/17 20:59 04/08/17 08:11 5,000 UNIT Nystatin (Mycostatin Powder) 1 appln BID EXT 03/15/17 21:00 04/14/17 20:59 04/08/17 08:00 1 APPLN Calcium Carbonate (Tums Chew Tab) 2,000 mg QID PO 03/16/17 17:00 04/15/17 08:59 04/08/17 08:04 2,000 MG Potassium/ Phosphorus/Sodium (Phospha 250 Neutral 155-852-130 Mg) 1 tab QID PO 03/16/17 17:00 04/15/17 16:59 04/08/17 08:04 1 TAB Calcium Carbonate (oS-Randy 500 TAB) 1,250 mg QID PO 03/18/17 09:00 04/17/17 08:59 04/08/17 08:05 1,250 MG Miscellaneous (Tap Water Enema) 1 ea Q2D PRN [place] 03/18/17 13:30 04/17/17 13:29 Heparin Sodium (Porcine) (Heparin 10 Unit/ ml 5 ml Flush) 5 ml PRN PRN FLUSH 03/18/17 15:30 04/17/17 15:29 04/06/17 05:39 5 ML Heparin Sodium (Porcine) (Heparin 10 Unit/ ml 5 ml Flush) 5 ml PRN PRN FLUSH 03/29/17 11:00 04/28/17 10:59 Calcitriol (Rocaltrol Cap) 3 mcg QAM PO 03/30/17 08:00 04/17/17 08:59 04/08/17 08:06 3 MCG Hydrochlorothiazide (Hydrochlorothiazide Tab) 25 mg QAM PO 03/30/17 13:00 04/29/17 12:59 04/08/17 08:04 25 MG Nystatin (Mycostatin Susp) 5 ml QID PO 04/01/17 17:00 04/11/17 16:59 04/08/17 08:05 5 ML Calcium Gluconate 4000 mg/Sodium Chloride 540 ml @ 125 mls/hr Q4H20M IV 04/06/17 09:15 05/06/17 09:14 04/08/17 09:10 125 MLS/HR Sodium Phosphate 15 mmol/Sodium Chloride 255 ml @ 88 mls/hr 1000 ONCE IV 04/08/17 10:00 04/08/17 12:53 04/08/17 10:07 88 MLS/HR Benzonatate (Tessalon Perles Cap) 100 mg TID PRN PO 04/08/17 10:45 05/08/17 10:44 Impression (1) Hypocalcemia (2) Prostate cancer (3) Hypertension Mr. 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 He developed severe hypocalcemia following treatment with Denosumab. Renal function is normal based on eGFR. EKG documented new QTc prolongation which improved with treatment. 25OH D deficiency documented on presentation. This was treated with ergocalciferol 05663 IU and cholecalciferol. Calcitriol is being provided. Aggressive replacement with PO and IV calcium continues. The patient has associated hypomagnesemia. This is being treated with IV magnesium sulfate. Based on review of the literature, medium time to calcium jonny is 21 days and median time to correction of hypocalcemia is 71 days. The patient continues to require IV calcium gluconate. Recommendations HYPOCALCEMIA: -- Continue Calcium gluconate infusion at 1 gm/hr. Will consider reducing or stopping infusion when corrected calcium 9.5 or higher -- Recheck serum calcium in am -- Continue calcitriol 3 mcg daily -- Increase OsCal to 2500 QID -- Continue TUMS 2 grams TID -- JASON report on hypocalcemia related to Denosumab scanned into EMR. Median time to correction ~ 21 days HYPOMAGNESEMIA: -- Monitor magnesium and replace with IV Mg as needed -- Monitor BMP with Mg and phosphorus daily OTHER: -- OOB to chair daily -- Continue physical therapy for strengthening
[2017-04-08] MEDS: BENZONATATE 100MG CAP PO PRN (12:43)
[2017-04-08 15:41] VITALS: BP 122/66; PULSE 87; TEMP 36.9; O2SAT 96
[2017-04-08 20:00] VITALS: O2SAT 96
[2017-04-08] MEDS: TAMSULOSIN HCL 0.4 MG CAP PO SCH (21:15)
[2017-04-08] MEDS: RANITIDINE HCL 150 MG TAB PO SCH (21:16)
[2017-04-08 22:25] VITALS: BP 132/72; PULSE 92; TEMP 37.2; O2SAT 94
[2017-04-09] VITALS: O2SAT 96
[2017-04-09] MEDS: CALCIUM GLUCONATE IV SCH ×5 (02:34→21:49)
[2017-04-09] MEDS: SODIUM CHLORIDE 0.9% IV SCH ×5 (02:34→21:49)
[2017-04-09 06:40] LABS: CALCIUM 8.1 mg/dl (8.5-10.1); CREATININE 1.04 mg/dl (0.60-1.40); POTASSIUM 4.3 mmol/L (3.5-5.1)
[2017-04-09 06:41] LABS: PHOSPHORUS 1.8 mg/dl (2.5-4.9)
[2017-04-09 07:38] VITALS: BP 129/69; PULSE 79; TEMP 36.7; O2SAT 95
[2017-04-09] MEDS ORDERED: SODIUM PHOSPHATE 3 MMOL/1 ML INFUSION IV STA (08:41)
[2017-04-09] MEDS: CALCIUM CARBONATE 500 MG CHEWABLE PO SCH ×4 (08:57→21:15)
[2017-04-09] MEDS: CALCIUM CARBONATE 1250MG TAB PO SCH ×4 (08:57→21:15)
[2017-04-09] MEDS: NYSTATIN SUSP 500,000 U/5 ML UDC PO SCH ×4 (08:57→21:14)
[2017-04-09] MEDS: CALCITRIOL 0.25 MCG CAP PO SCH (08:57)
[2017-04-09] MEDS: PANTOprazole SOD 40 MG TAB PO SCH (08:57)
[2017-04-09] MEDS: DOCUSATE SODIUM 100 MG CAP PO SCH ×2 (08:58→21:17)
[2017-04-09] MEDS: HYDROCHLOROTHIAZIDE 25 MG TAB PO SCH (08:58)
[2017-04-09] MEDS: NYSTATIN POWDER 15GM BTL EXT SCH ×2 (08:59→21:18)
[2017-04-09] MEDS ORDERED: SODIUM PHOSPHATE INJ 15 MMOL in SODIUM CHLORIDE 0.9% 250ML 250 ML IV ONE (09:00)
[2017-04-09] MEDS: HEPARIN SOD 5000 UNIT/0.5 ML CARP SQ SCH ×3 (09:05→21:51)
[2017-04-09] MEDS: POT PHOSPHATE MONOBASIC W/ SOD TAB PO SCH ×4 (09:18→21:16)
[2017-04-09] MEDS: BENZONATATE 100MG CAP PO PRN (09:18)
--- NOTE | 2017-04-09 10:01 | Nephrology Progress Note ---
Nephrology Progress Note Date of Service Apr 09, 2017. Chief Complaint Hypocalcemia, metastatic prostate cancer Subjective Mr. Greene was seen & examined in his hospital room this morning. He was able to participate in physical therapy yesterday. He denies muscle cramping and notes that he is tolerating IV and oral calcium supplementation. He voices no new medical concerns at this time. Review of Systems Constitutional: No fever Cardiovascular: No chest pain Respiratory: No dyspnea at rest Abdomen: No pain, No nausea, No vomiting Extremities: No leg edema A complete review of systems was performed. Pertinent positives are noted above. All other systems are negative. Vital Signs Last 8 Hrs Date Time Temp Pulse Resp B/P (MAP) Pulse Ox O2 Delivery O2 Flow Rate FiO2 04/09/17 09:00 Room Air 04/09/17 07:38 36.7 79 18 129/69 (89) 95 Room Air Last Recorded Weight Weight (Kilograms): 63.700 Physical Exam General Appearance: no apparent distress Head: normocephalic, atraumatic Eyes: PERRL, EOMI Neck: no adenopathy Respiratory/Chest: lungs clear, no respiratory distress Cardiovascular: regular rate, rhythm Abdomen/GI: normal bowel sounds, non tender, soft Extremities/Musculoskelatal: no calf tenderness, no pedal edema Neurologic/Psych: alert, oriented x 3 Social History Drug Use: none Marital Status: Housing Status: lives with family (lives with son) 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 04/09/17 05:46 Test 04/09/17 05:46 Anion Gap 9.0 mmol/L (3-11) Est Creatinine Clear Calc Drug Dose 46.8 ml/min Estimated GFR () 76.6 Estimated GFR (Non- 66.1 BUN/Creatinine Ratio 8.8 (10-20) Calcium Level 8.1 mg/dl (8.5-10.1) Phosphorus Level 1.8 mg/dl (2.5-4.9) Magnesium Level 1.8 mg/dl (1.8-2.4) Allergies Coded Allergies: No Known Allergies (Unverified , 03/15/17) Medications Current Inpatient Medications Medications (Trade) Dose Ordered Sig/Jonathan Route Start Time Stop Time Status Last Admin Dose Admin Acetaminophen (Tylenol Tab) 650 mg Q4H PRN PO 03/15/17 14:15 3/3/18 14:14 Tamsulosin HCl (Flomax Cap) 0.8 mg HS PO 03/15/17 21:00 04/14/17 20:59 04/08/17 21:15 0.8 MG Miscellaneous Information (Order Awaiting Action) 1 ea QS N/A 03/15/17 16:00 04/14/17 15:59 Pantoprazole Sodium (Protonix Tab) 40 mg QAM PO 03/16/17 09:00 04/15/17 08:59 04/09/17 08:57 40 MG Ranitidine HCl (zANTac TAB) 300 mg HS PO 03/15/17 21:00 04/14/17 20:59 04/08/17 21:16 300 MG Polyethylene (Miralax Powder Packet) 17 gm DAILY PRN PO 03/15/17 15:00 04/14/17 14:59 Docusate Sodium (coLACE CAP) 100 mg BID PO 03/15/17 21:00 04/14/17 20:59 04/09/17 08:58 100 MG Bisacodyl (Dulcolax Supp) 10 mg DAILY PRN [place] 03/15/17 15:00 04/14/17 14:59 Heparin Sodium (Porcine) (Heparin Sq 5000 Unit/0.5ml) 5,000 unit Q12 SQ 03/15/17 21:00 04/14/17 20:59 04/09/17 09:05 5,000 UNIT Nystatin (Mycostatin Powder) 1 appln BID EXT 03/15/17 21:00 04/14/17 20:59 04/08/17 08:00 1 APPLN Calcium Carbonate (Tums Chew Tab) 2,000 mg QID PO 03/16/17 17:00 04/15/17 08:59 04/09/17 08:57 2,000 MG Calcium Carbonate (oS-Randy 500 TAB) 1,250 mg QID PO 03/18/17 09:00 04/17/17 08:59 04/09/17 08:57 1,250 MG Miscellaneous (Tap Water Enema) 1 ea Q2D PRN [place] 03/18/17 13:30 04/17/17 13:29 Heparin Sodium (Porcine) (Heparin 10 Unit/ ml 5 ml Flush) 5 ml PRN PRN FLUSH 03/18/17 15:30 04/17/17 15:29 04/06/17 05:39 5 ML Heparin Sodium (Porcine) (Heparin 10 Unit/ ml 5 ml Flush) 5 ml PRN PRN FLUSH 03/29/17 11:00 04/28/17 10:59 Calcitriol (Rocaltrol Cap) 3 mcg QAM PO 03/30/17 08:00 04/17/17 08:59 04/09/17 08:57 3 MCG Hydrochlorothiazide (Hydrochlorothiazide Tab) 25 mg QAM PO 03/30/17 13:00 04/29/17 12:59 04/09/17 08:58 25 MG Nystatin (Mycostatin Susp) 5 ml QID PO 04/01/17 17:00 04/11/17 16:59 04/09/17 08:57 5 ML Calcium Gluconate 4000 mg/Sodium Chloride 540 ml @ 125 mls/hr Q4H20M IV 04/06/17 09:15 05/06/17 09:14 04/09/17 06:57 125 MLS/HR Benzonatate (Tessalon Perles Cap) 100 mg TID PRN PO 04/08/17 10:45 05/08/17 10:44 04/09/17 09:18 100 MG Potassium/ Phosphorus/Sodium (Phospha 250 Neutral 155-852-130 Mg) 2 tab QID PO 04/09/17 12:00 04/15/17 16:59 04/09/17 09:18 2 TAB Sodium Phosphate 15 mmol/Sodium Chloride 255 ml @ 88 mls/hr ONE ONCE IV 04/09/17 09:00 04/09/17 11:53 04/09/17 08:59 88 MLS/HR Impression (1) Hypocalcemia (2) Prostate cancer (3) Hypertension Mr. 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 He developed severe hypocalcemia following treatment with Denosumab. Renal function is normal based on eGFR. EKG documented new QTc prolongation which improved with treatment. 25OH D deficiency documented on presentation. This was treated with ergocalciferol 24819 IU and cholecalciferol. Calcitriol is being provided. Aggressive replacement with PO and IV calcium continues. The patient has associated hypomagnesemia. This is being treated with IV magnesium sulfate. Based on review of the literature, medium time to calcium jonny is 21 days and median time to correction of hypocalcemia is 71 days. The patient continues to require IV calcium gluconate. Recommendations HYPOCALCEMIA: -- Continue Calcium gluconate infusion at 1 gm/hr. Will consider reducing or stopping infusion when corrected calcium 9.5 or higher -- Recheck serum calcium in am -- Continue calcitriol 3 mcg daily -- Increase OsCal to 2500 QID -- Continue TUMS 2 grams TID -- JASON report on hypocalcemia related to Denosumab scanned into EMR. Median time to correction ~ 21 days HYPOMAGNESEMIA: -- Monitor magnesium and replace with IV Mg as needed -- Monitor BMP with Mg and phosphorus daily HYPOPHOSPHATEMIA: -- IV NaPO4 supplementation has been ordered this am OTHER: -- OOB to chair daily -- Continue physical therapy for strengthening
--- NOTE | 2017-04-09 11:52 | Hospitalist Progress Note ---
Hospitalist Progress Note Date of Service Apr 09, 2017. Subjective Pt evaluation today including: conversation w/ patient, physical exam, lab review, review of inpatient medication list Voiding: bey catheter in place (draining clear/yellow urine ) Patient sitting in bedside chair. Feeling well. Eating and drinking OK. Cough is improving. Continues to encourage OOB in chair and ambulation. +BM this AM. Patient denies any fever, chills, sweats, lightheadedness, dizziness, vision changes, CP, palpitations, edema, SOB, wheezing, abdominal pain, nausea, vomiting, diarrhea, urinary symptoms, melena, numbness/tingling, weakness, muscle/joint pain, anxiety/depression, active bleeding, or new skin discoloration/changes. Medications Current Inpatient Medications Medications (Trade) Dose Ordered Sig/Jonathan Route Start Time Stop Time Status Last Admin Dose Admin Acetaminophen (Tylenol Tab) 650 mg Q4H PRN PO 03/15/17 14:15 04/14/17 14:14 Tamsulosin HCl (Flomax Cap) 0.8 mg HS PO 03/15/17 21:00 04/14/17 20:59 04/08/17 21:15 0.8 MG Miscellaneous Information (Order Awaiting Action) 1 ea QS N/A 03/15/17 16:00 04/14/17 15:59 Pantoprazole Sodium (Protonix Tab) 40 mg QAM PO 03/16/17 09:00 04/15/17 08:59 04/09/17 08:57 40 MG Ranitidine HCl (zANTac TAB) 300 mg HS PO 03/15/17 21:00 04/14/17 20:59 04/08/17 21:16 300 MG Polyethylene (Miralax Powder Packet) 17 gm DAILY PRN PO 03/15/17 15:00 04/14/17 14:59 Docusate Sodium (coLACE CAP) 100 mg BID PO 03/15/17 21:00 04/14/17 20:59 04/09/17 08:58 100 MG Bisacodyl (Dulcolax Supp) 10 mg DAILY PRN [place] 03/15/17 15:00 04/14/17 14:59 Heparin Sodium (Porcine) (Heparin Sq 5000 Unit/0.5ml) 5,000 unit Q12 SQ 03/15/17 21:00 04/14/17 20:59 04/09/17 09:05 5,000 UNIT Nystatin (Mycostatin Powder) 1 appln BID EXT 03/15/17 21:00 04/14/17 20:59 04/08/17 08:00 1 APPLN Calcium Carbonate (Tums Chew Tab) 2,000 mg QID PO 03/16/17 17:00 04/15/17 08:59 04/09/17 08:57 2,000 MG Calcium Carbonate (oS-Randy 500 TAB) 1,250 mg QID PO 03/18/17 09:00 04/17/17 08:59 04/09/17 08:57 1,250 MG Miscellaneous (Tap Water Enema) 1 ea Q2D PRN [place] 03/18/17 13:30 04/17/17 13:29 Heparin Sodium (Porcine) (Heparin 10 Unit/ ml 5 ml Flush) 5 ml PRN PRN FLUSH 03/18/17 15:30 04/17/17 15:29 04/06/17 05:39 5 ML Heparin Sodium (Porcine) (Heparin 10 Unit/ ml 5 ml Flush) 5 ml PRN PRN FLUSH 03/29/17 11:00 04/28/17 10:59 Calcitriol (Rocaltrol Cap) 3 mcg QAM PO 03/30/17 08:00 04/17/17 08:59 04/09/17 08:57 3 MCG Hydrochlorothiazide (Hydrochlorothiazide Tab) 25 mg QAM PO 03/30/17 13:00 04/29/17 12:59 04/09/17 08:58 25 MG Nystatin (Mycostatin Susp) 5 ml QID PO 04/01/17 17:00 04/11/17 16:59 04/09/17 08:57 5 ML Calcium Gluconate 4000 mg/Sodium Chloride 540 ml @ 125 mls/hr Q4H20M IV 04/06/17 09:15 05/06/17 09:14 04/09/17 11:15 125 MLS/HR Benzonatate (Tessalon Perles Cap) 100 mg TID PRN PO 04/08/17 10:45 05/08/17 10:44 04/09/17 09:18 100 MG Potassium/ Phosphorus/Sodium (Phospha 250 Neutral 155-852-130 Mg) 2 tab QID PO 04/09/17 12:00 04/15/17 16:59 04/09/17 09:18 2 TAB Sodium Phosphate 15 mmol/Sodium Chloride 255 ml @ 88 mls/hr ONE ONCE IV 04/09/17 09:00 04/09/17 11:53 04/09/17 08:59 88 MLS/HR Objective Vital Signs Date Time Temp Pulse Resp B/P (MAP) Pulse Ox O2 Delivery O2 Flow Rate FiO2 04/09/17 09:00 Room Air 04/09/17 07:38 36.7 79 18 129/69 (89) 95 Room Air 04/09/17 00:00 96 Room Air 04/08/17 22:25 37.2 92 20 132/72 (92) 94 Room Air 04/08/17 20:00 96 Room Air 04/08/17 16:00 Room Air 04/08/17 15:41 36.9 87 16 122/66 (84) 96 Room Air Physical Exam General Appearance: no apparent distress Eyes: normal inspection, PERRL ENT: hearing grossly normal Neck: supple, no JVD Respiratory/Chest: lungs clear, no respiratory distress, no accessory muscle use Cardiovascular: regular rate, rhythm Abdomen: normal bowel sounds, non tender, soft Extremities: no pedal edema, no calf tenderness Neurologic/Psychiatric: alert, normal mood/affect, oriented x 3 Skin: normal color, warm/dry, no rash Laboratory Results Last 24 Hours Test 04/09/17 05:46 Sodium Level 140 mmol/L Potassium Level 4.3 mmol/L Chloride Level 108 mmol/L Carbon Dioxide Level 23 mmol/L Anion Gap 9.0 mmol/L Blood Urea Nitrogen 9 mg/dl Creatinine 1.04 mg/dl Est Creatinine Clear Calc Drug Dose 46.8 ml/min Estimated GFR () 76.6 Estimated GFR (Non- 66.1 BUN/Creatinine Ratio 8.8 Random Glucose 85 mg/dl Calcium Level 8.1 mg/dl Phosphorus Level 1.8 mg/dl Magnesium Level 1.8 mg/dl Assessment and Plan Mr. Greene is an 81 year old man with a history of prostate cancer and osteoblastic mets that presented with fatigue and found to have severe hypocalcemia thought secondary to his Denosumab (03/02/2017). Hypocalcemia secondary to chemotherapy: - Ca 8.1 today - HCTZ 25 mg daily - Nephrology consulted, appreciate recommendations: -- Continue Calcium gluconate infusion at 1 gm/hr- consider reducing or stopping infusion when corrected calcium 9.5 or higher -- Continue calcitriol 3 mcg daily, OsCal to 2500 QID, TUMS 2 grams TID Hypophosphatemia- STABLE: Replacing w/ phosphate supplement QID, additional IV supplement x1 today, continue to follow Hypomagnesemia- RESOLVED: IV Mag 1 gm today, continue to follow and replace PRN Prostate cancer w/ mets to bone- STABLE: Continue Flomax and Proscar Cough w/ white/clear sputum production- IMPROVING: - No fevers, no SOB/hypoxia, lungs clear, no white count - Encouraged ambulation and OOB in chair - Tessalon Perles TID PRN for cough - Continue to monitor Stenotrophomonas and enterococcus UTI w/ chronic Bey : Completed 10 day course of antibiotic JONATHAN on CKD stage II- RESOLVED: Follow PRP Superficial thrombophlebitis of right arm- RESOLVED: - Ultrasound confirmation of superficial thrombus involving the cephalic vein - Avoid IV line in right UE - Warm compress PRN for pain management Intertrigo/thrush: Nystatin swish and swallow x10 days- last day 04/11 and Nystatin powder for groin Seborrheic dermatitis: Completed 14 day course of Desonide for face GI prophylaxis: Zantac + Protonix DVT prophylaxis: Heparin SQ BID Code status: LEVEL V, DNR Dispo: Stable for discharge pending IV Calcium injection setup- CM and PT/OT following
[2017-04-09 14:53] VITALS: BP 127/72; PULSE 82; TEMP 36.7; O2SAT 96
[2017-04-09] MEDS: RANITIDINE HCL 150 MG TAB PO SCH (21:16)
[2017-04-09] MEDS: TAMSULOSIN HCL 0.4 MG CAP PO SCH (21:17)
[2017-04-09 23:12] VITALS: BP 111/65; PULSE 79; TEMP 36.8; O2SAT 97
[2017-04-10] VITALS (8 sets, daily range): BP systolic 127–154; BP diastolic 64–77; PULSE 78–87; TEMP 36.5–36.9; O2SAT 96
[2017-04-10] MEDS: SODIUM CHLORIDE 0.9% IV SCH ×3 (02:05→10:15)
[2017-04-10] MEDS: CALCIUM GLUCONATE IV SCH ×3 (02:05→10:15)
[2017-04-10 06:45] LABS: CALCIUM 6.7 mg/dl (8.5-10.1); CREATININE 0.91 mg/dl (0.60-1.40); PHOSPHORUS 2.3 mg/dl (2.5-4.9); POTASSIUM 4.1 mmol/L (3.5-5.1)
[2017-04-10] MEDS: CALCITRIOL 0.25 MCG CAP PO SCH (08:00)
[2017-04-10] MEDS: NYSTATIN POWDER 15GM BTL EXT SCH ×2 (08:00→20:40)
[2017-04-10] MEDS: NYSTATIN SUSP 500,000 U/5 ML UDC PO SCH ×4 (08:28→20:41)
[2017-04-10] MEDS: CALCIUM CARBONATE 500 MG CHEWABLE PO SCH ×4 (08:29→20:39)
[2017-04-10] MEDS: HYDROCHLOROTHIAZIDE 25 MG TAB PO SCH (08:30)
[2017-04-10] MEDS: DOCUSATE SODIUM 100 MG CAP PO SCH ×2 (08:30→20:38)
[2017-04-10] MEDS: CALCIUM CARBONATE 1250MG TAB PO SCH ×4 (08:31→22:48)
[2017-04-10] MEDS: POT PHOSPHATE MONOBASIC W/ SOD TAB PO SCH ×4 (08:31→20:42)
[2017-04-10] MEDS: PANTOprazole SOD 40 MG TAB PO SCH (08:31)
[2017-04-10] MEDS: HEPARIN SOD 5000 UNIT/0.5 ML CARP SQ SCH ×2 (08:32→20:44)
[2017-04-10 09:57] LABS: ALBUMIN 3.1 gm/dl (3.4-5.0); CALCIUM 7.5 mg/dl (8.5-10.1)
--- NOTE | 2017-04-10 12:31 | Nephrology Progress Note ---
Nephrology Progress Note Date of Service Apr 10, 2017. Chief Complaint Hypocalcemia, metastatic prostate cancer Subjective Mr. Greene was seen and examined in his hospital room this morning. He is tolerating IVF without edema or dyspnea. Mr. Greene voices no medical concerns. Review of Systems Constitutional: No fever Cardiovascular: No chest pain Respiratory: No dyspnea at rest Abdomen: No pain, No nausea, No vomiting Extremities: No leg edema A complete review of systems was performed. Pertinent positives are noted above. All other systems are negative. Vital Signs Last 8 Hrs Date Time Temp Pulse Resp B/P (MAP) Pulse Ox O2 Delivery O2 Flow Rate FiO2 04/10/17 08:30 Room Air 04/10/17 08:00 Room Air 04/10/17 07:30 36.9 78 14 127/76 (93) 96 Room Air Last Recorded Weight Weight (Kilograms): 63.700 Physical Exam General Appearance: no apparent distress Head: normocephalic, atraumatic Eyes: PERRL, EOMI Neck: no adenopathy Respiratory/Chest: lungs clear, no respiratory distress Cardiovascular: regular rate, rhythm Abdomen/GI: normal bowel sounds, non tender, soft Extremities/Musculoskelatal: no calf tenderness, no pedal edema Neurologic/Psych: alert, oriented x 3 Social History Drug Use: none Marital Status: Housing Status: lives with family (lives with son) 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 04/10/17 05:44 Test 04/10/17 05:44 04/10/17 09:14 Anion Gap 8.0 mmol/L (3-11) Est Creatinine Clear Calc Drug Dose 53.5 ml/min Estimated GFR () 90.0 Estimated GFR (Non- 77.7 BUN/Creatinine Ratio 8.7 (10-20) Calcium Level 6.7 mg/dl (8.5-10.1) 7.5 mg/dl (8.5-10.1) Phosphorus Level 2.3 mg/dl (2.5-4.9) Magnesium Level 1.5 mg/dl (1.8-2.4) Ionized Calcium 0.95 mmol/l (1.12-1.32) Albumin 3.1 gm/dl (3.4-5.0) Allergies Coded Allergies: No Known Allergies (Unverified , 03/15/17) Medications Current Inpatient Medications Medications (Trade) Dose Ordered Sig/Jonathan Route Start Time Stop Time Status Last Admin Dose Admin Acetaminophen (Tylenol Tab) 650 mg Q4H PRN PO 03/15/17 14:15 04/14/17 14:14 Tamsulosin HCl (Flomax Cap) 0.8 mg HS PO 03/15/17 21:00 04/14/17 20:59 04/09/17 21:17 0.8 MG Miscellaneous Information (Order Awaiting Action) 1 ea QS N/A 03/15/17 16:00 04/14/17 15:59 Pantoprazole Sodium (Protonix Tab) 40 mg QAM PO 03/16/17 09:00 04/15/17 08:59 04/10/17 08:31 40 MG Ranitidine HCl (zANTac TAB) 300 mg HS PO 03/15/17 21:00 04/14/17 20:59 04/09/17 21:16 300 MG Polyethylene (Miralax Powder Packet) 17 gm DAILY PRN PO 03/15/17 15:00 04/14/17 14:59 Docusate Sodium (coLACE CAP) 100 mg BID PO 03/15/17 21:00 04/14/17 20:59 04/10/17 08:30 100 MG Bisacodyl (Dulcolax Supp) 10 mg DAILY PRN [place] 03/15/17 15:00 04/14/17 14:59 Heparin Sodium (Porcine) (Heparin Sq 5000 Unit/0.5ml) 5,000 unit Q12 SQ 03/15/17 21:00 04/14/17 20:59 04/10/17 08:32 5,000 UNIT Nystatin (Mycostatin Powder) 1 appln BID EXT 03/15/17 21:00 04/14/17 20:59 04/09/17 21:18 1 APPLN Calcium Carbonate (Tums Chew Tab) 2,000 mg QID PO 03/16/17 17:00 04/15/17 08:59 04/10/17 11:36 2,000 MG Calcium Carbonate (oS-Randy 500 TAB) 1,250 mg QID PO 03/18/17 09:00 04/17/17 08:59 04/10/17 11:37 1,250 MG Miscellaneous (Tap Water Enema) 1 ea Q2D PRN [place] 03/18/17 13:30 04/17/17 13:29 Heparin Sodium (Porcine) (Heparin 10 Unit/ ml 5 ml Flush) 5 ml PRN PRN FLUSH 03/18/17 15:30 04/17/17 15:29 04/06/17 05:39 5 ML Heparin Sodium (Porcine) (Heparin 10 Unit/ ml 5 ml Flush) 5 ml PRN PRN FLUSH 03/29/17 11:00 04/28/17 10:59 Calcitriol (Rocaltrol Cap) 3 mcg QAM PO 03/30/17 08:00 04/17/17 08:59 04/10/17 08:00 3 MCG Hydrochlorothiazide (Hydrochlorothiazide Tab) 25 mg QAM PO 03/30/17 13:00 04/29/17 12:59 04/10/17 08:30 25 MG Nystatin (Mycostatin Susp) 5 ml QID PO 04/01/17 17:00 04/11/17 16:59 04/10/17 11:37 5 ML Calcium Gluconate 4000 mg/Sodium Chloride 540 ml @ 125 mls/hr Q4H20M IV 04/06/17 09:15 05/06/17 09:14 04/10/17 10:15 125 MLS/HR Benzonatate (Tessalon Perles Cap) 100 mg TID PRN PO 04/08/17 10:45 05/08/17 10:44 04/09/17 09:18 100 MG Potassium/ Phosphorus/Sodium (Phospha 250 Neutral 155-852-130 Mg) 2 tab QID PO 04/09/17 12:00 04/15/17 16:59 04/10/17 11:37 2 TAB Impression (1) Hypocalcemia (2) Prostate cancer (3) Hypertension Mr. 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 He developed severe hypocalcemia following treatment with Denosumab. Renal function is normal based on eGFR. EKG documented new QTc prolongation which improved with treatment. 25OH D deficiency documented on presentation. This was treated with ergocalciferol 67658 IU and cholecalciferol. Calcitriol is being provided. Aggressive replacement with PO and IV calcium continues. The patient has associated hypomagnesemia. This is being treated with IV magnesium sulfate. Based on review of the literature, medium time to calcium jonny is 21 days and median time to correction of hypocalcemia is 71 days. The patient continues to require IV calcium gluconate. Recommendations HYPOCALCEMIA: -- Serum calcium is dropping despite IV Ca gluconate at 1 g / hr -- I have called [facility] and spoke w/ Therese ([facility] clinical pharmacy [phone] ). She confirmed 21 day half life of Xgeva. No reversal agent available. Recommended Ca infusion. They will file adverse event report w/ FDA -- Primary service asked to transfer patient to telemetry bed -- Pedro w/ [facility] clinical pharmacist Lesa. Will change infusion to Ca gluconate 4 g / 100 cc and infuse at 2 g per hour -- Increase calcitriol to 4 mcg daily -- Continue OsCal 2500 QID -- Continue TUMS 2 grams TID -- Start Ergocalciferol 50,000 units daily x 12 doses -- Will recheck serum Vitamin D level -- JASON report on hypocalcemia related to Denosumab scanned into EMR. Median time to correction ~ 21 days HYPOMAGNESEMIA: -- Will order 2 g IV Mg today -- Monitor BMP with Mg and phosphorus daily HYPOPHOSPHATEMIA: -- Continue oral NaPO4 replacement. Serum PO4 is trending up OTHER: -- OOB to chair daily -- Continue physical therapy for strengthening
[2017-04-10] MEDS ORDERED: ERGOCALCIFEROL 50,000 INTER.UNIT CAP PO ONE (13:00)
[2017-04-10] MEDS: MAGNESIUM SULFATE 1GM / D5W 1 GM in PREMIXED IN D5W 100 ML IV SCH ×2 (13:04→14:08)
[2017-04-10] MEDS: CALCIUM GLUCONATE 10% 4,000 MG in SODIUM CHLORIDE 0.9% 100ML 100 ML IV SCH ×5 (14:10→22:47)
--- NOTE | 2017-04-10 16:46 | Progress Note ---
Subjective Date of Service: Apr 10, 2017. Subjective Pt evaluation today including: conversation w/ patient, conversation w/ family , chart review, lab review, review of studies, conversation w/ creative consultant, review of inpatient medication list Voiding: no voiding problems, bey catheter in place Pleasant conversational no acute events, eating voiding, no constipation Problem List Medical Problems: (1) Dehydration Status: Acute (2) Failure to thrive Status: Acute (3) Hypomagnesemia Status: Acute (4) UTI (urinary tract infection) Status: Acute (5) Vomiting Status: Acute Review of Systems Constitutional: No fever, No chills, No sweats, No weight loss, No weakness, No fatigue, No problem reported Eyes: No worsening of vision, No eye pain, No redness, No discharge, No diplopia ENT: No hearing loss, No unusual epistaxis, No nasal symptoms, No sore throat, No tinnitus, No dental problems, No trouble swallowing Respiratory: No cough, No sputum, No wheezing, No shortness of breath, No dyspnea on exertion, No dyspnea at rest, No hemoptysis Cardiac: No chest pain, No orthopnea, No PND, No edema, No claudication, No palpitations Abdomen: No pain, No nausea, No vomiting, No diarrhea, No constipation Musculoskeletal: No joint pain, No muscle pain, No swelling, No calf pain Male : No dysuria, No urinary frequency, No incontinence, No nocturia more than once/night, No slowing stream, No hematuria Neurologic: No memory loss, No paralysis, No weakness, No numbness/tingling, No vertigo, No balance problems Psychiatric: No depression symptoms, No anhedonism, No anxiety, No insomnia, No substance abuse Heme: No abnormal bleeding/bruising, No clotting problems, No swollen lymph nodes, No night sweats Endo: No fatigue, No excessive thirst, No excessive urination Skin: No rash, No itch, No new/changing skin lesions, No color change, No bleeding Objective Vital Signs Date Time Temp Pulse Resp B/P (MAP) Pulse Ox O2 Delivery O2 Flow Rate FiO2 04/10/17 16:02 36.6 78 20 129/64 (85) 96 Room Air 04/10/17 14:00 36.5 85 18 154/77 (102) 96 Room Air 04/10/17 12:40 36.9 78 14 96 04/10/17 08:30 Room Air 04/10/17 08:00 Room Air 04/10/17 07:30 36.9 78 14 127/76 (93) 96 Room Air 04/10/17 00:00 Room Air 04/09/17 23:12 36.8 79 17 111/65 (80) 97 Room Air 04/09/17 20:00 Room Air Physical Exam General Appearance: WD/WN, no apparent distress, + thin Eyes: normal inspection, PERRL, EOMI, sclerae normal ENT: normal ENT inspection, hearing grossly normal, pharynx normal Neck: supple, no adenopathy, thyroid normal, no JVD, no carotid bruits, trachea midline Respiratory/Chest: chest non-tender, lungs clear, normal breath sounds, no respiratory distress, no accessory muscle use Cardiovascular: regular rate, rhythm, no edema, no gallop, no JVD, no murmur Abdomen: normal bowel sounds, non tender, soft, no organomegaly, no pulsatile mass Extremities: normal range of motion, non-tender, normal inspection, no pedal edema, no calf tenderness, normal capillary refill, pelvis stable Neurologic/Psychiatric: applied exercise physiologist II-XII nml as tested, no motor/sensory deficits, alert, normal mood/affect, oriented x 3 Skin: normal color, warm/dry, no rash Lymphatic: no adenopathy Laboratory Results Last 24 Hours Test 04/10/17 05:44 04/10/17 09:14 04/10/17 12:35 Sodium Level 143 mmol/L Potassium Level 4.1 mmol/L Chloride Level 111 mmol/L Carbon Dioxide Level 24 mmol/L Anion Gap 8.0 mmol/L Blood Urea Nitrogen 8 mg/dl Creatinine 0.91 mg/dl Est Creatinine Clear Calc Drug Dose 53.5 ml/min Estimated GFR () 90.0 Estimated GFR (Non- 77.7 BUN/Creatinine Ratio 8.7 Random Glucose 82 mg/dl Calcium Level 6.7 mg/dl 7.5 mg/dl Phosphorus Level 2.3 mg/dl Magnesium Level 1.5 mg/dl Ionized Calcium 0.95 mmol/l Albumin 3.1 gm/dl 25-Hydroxy Vitamin D Total 34.3 ng/ml Assessment and Plan 81 year old man with a history of prostate cancer and osteoblastic mets admitted because of severe hypocalcemia associated with with fatigue and found to have severe hypocalcemia secondary to his Denosumab (03/02/2017). has been on IV calcium and oral calcium therapy, still unable to increase his levels. Enterprise Account Executive on the case , discussed about her care plan, made the follow changes: change infusion to Ca gluconate 4 g / 100 cc and infuse at 2 g per hour , increase calcitriol to 4 mcg daily, start Ergocalciferol 50,000 units daily x 12 doses, per health administration teacher patient may be discharged to home after corrected calcium 9.5 or higher, closely monitoring lytes and replace as needed, transferred to tele for better monitoring of arrhythmia events during the calcium infusion Continued [facility] stay due to: multiple IV medications needed Discharge planning: uncertain
[2017-04-10] MEDS: BENZONATATE 100MG CAP PO PRN (20:37)
[2017-04-10] MEDS: TAMSULOSIN HCL 0.4 MG CAP PO SCH (20:39)
[2017-04-10] MEDS: RANITIDINE HCL 150 MG TAB PO SCH (20:40)
[2017-04-11] VITALS: O2SAT 96
[2017-04-11] MEDS: CALCIUM GLUCONATE 10% 4,000 MG in SODIUM CHLORIDE 0.9% 100ML 100 ML IV SCH ×13 (02:00→23:47)
[2017-04-11 04:00] VITALS: BP 118/62; PULSE 85; TEMP 36.7; O2SAT 96
[2017-04-11 06:33] LABS: CALCIUM 8.2 mg/dl (8.5-10.1); CREATININE 0.99 mg/dl (0.60-1.40); POTASSIUM 4.3 mmol/L (3.5-5.1)
[2017-04-11 06:34] LABS: PHOSPHORUS 2.4 mg/dl (2.5-4.9)
[2017-04-11 07:09] VITALS: BP 132/61; PULSE 73; TEMP 36.7; O2SAT 97
[2017-04-11] MEDS: CALCIUM CARBONATE 1250MG TAB PO SCH ×4 (07:54→21:22)
[2017-04-11] MEDS: NYSTATIN SUSP 500,000 U/5 ML UDC PO SCH ×2 (07:54→11:55)
[2017-04-11] MEDS: DOCUSATE SODIUM 100 MG CAP PO SCH ×2 (07:55→21:23)
[2017-04-11] MEDS: HYDROCHLOROTHIAZIDE 25 MG TAB PO SCH (07:55)
[2017-04-11] MEDS: POT PHOSPHATE MONOBASIC W/ SOD TAB PO SCH ×4 (07:55→21:25)
[2017-04-11] MEDS: PANTOprazole SOD 40 MG TAB PO SCH (07:56)
[2017-04-11] MEDS: CALCIUM CARBONATE 500 MG CHEWABLE PO SCH ×4 (07:56→21:21)
[2017-04-11] MEDS: CALCITRIOL 0.25 MCG CAP PO SCH (07:57)
[2017-04-11] MEDS: NYSTATIN POWDER 15GM BTL EXT SCH ×2 (07:58→21:26)
[2017-04-11] MEDS: ERGOCALCIFEROL 50,000 INTER.UNIT CAP PO SCH (07:58)
[2017-04-11] MEDS: HEPARIN SOD 5000 UNIT/0.5 ML CARP SQ SCH ×2 (08:03→21:22)
--- NOTE | 2017-04-11 11:21 | Nephrology Progress Note ---
Nephrology Progress Note Date of Service Apr 11, 2017. Chief Complaint Hypocalcemia, metastatic prostate cancer Subjective Mr. Greene was transferred to a telemetry bed yesterday. His calcium gluconate gtt has been increased to 2 g / hr. Mr. Greene reports that he is tolerating IVF without dyspnea. He denies weakness or muscle spasm this morning. Review of Systems Constitutional: No fever Cardiovascular: No chest pain Respiratory: No dyspnea at rest Abdomen: No pain, No nausea, No vomiting Extremities: No leg edema A complete review of systems was performed. Pertinent positives are noted above. All other systems are negative. Vital Signs Last 8 Hrs Date Time Temp Pulse Resp B/P (MAP) Pulse Ox O2 Delivery O2 Flow Rate FiO2 04/11/17 08:00 Room Air 04/11/17 07:09 36.7 73 16 132/61 (84) 97 Room Air 04/11/17 04:00 36.7 85 18 118/62 (80) 96 Room Air 04/11/17 04:00 96 Room Air Last Recorded Weight Weight (Kilograms): 63.200 Physical Exam General Appearance: no apparent distress Head: normocephalic, atraumatic Eyes: PERRL, EOMI Neck: no adenopathy Respiratory/Chest: lungs clear, no respiratory distress Cardiovascular: regular rate, rhythm Abdomen/GI: normal bowel sounds, non tender, soft Extremities/Musculoskelatal: no calf tenderness, no pedal edema Neurologic/Psych: alert, oriented x 3 Social History Drug Use: none Marital Status: Housing Status: lives with family (lives with son) 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 04/11/17 05:30 Test 04/10/17 12:35 04/11/17 05:30 25-Hydroxy Vitamin D Total 34.3 ng/ml (30-100) Anion Gap 7.0 mmol/L (3-11) Est Creatinine Clear Calc Drug Dose 49.2 ml/min Estimated GFR () 81.3 Estimated GFR (Non- 70.1 BUN/Creatinine Ratio 7.1 (10-20) Calcium Level 8.2 mg/dl (8.5-10.1) Phosphorus Level 2.4 mg/dl (2.5-4.9) Magnesium Level 1.9 mg/dl (1.8-2.4) Allergies Coded Allergies: No Known Allergies (Unverified , 2/1/18) Medications Current Inpatient Medications Medications (Trade) Dose Ordered Sig/Jonathan Route Start Time Stop Time Status Last Admin Dose Admin Acetaminophen (Tylenol Tab) 650 mg Q4H PRN PO 03/15/17 14:15 05/10/17 14:14 Tamsulosin HCl (Flomax Cap) 0.8 mg HS PO 03/15/17 21:00 05/10/17 20:59 04/10/17 20:39 0.8 MG Miscellaneous Information (Order Awaiting Action) 1 ea QS N/A 03/15/17 16:00 05/10/17 15:59 Pantoprazole Sodium (Protonix Tab) 40 mg QAM PO 03/16/17 09:00 05/10/17 08:59 04/11/17 07:56 40 MG Ranitidine HCl (zANTac TAB) 300 mg HS PO 03/15/17 21:00 05/10/17 20:59 04/10/17 20:40 300 MG Polyethylene (Miralax Powder Packet) 17 gm DAILY PRN PO 03/15/17 15:00 05/10/17 14:59 Docusate Sodium (coLACE CAP) 100 mg BID PO 03/15/17 21:00 05/10/17 20:59 04/11/17 07:55 100 MG Bisacodyl (Dulcolax Supp) 10 mg DAILY PRN [place] 03/15/17 15:00 05/10/17 14:59 Heparin Sodium (Porcine) (Heparin Sq 5000 Unit/0.5ml) 5,000 unit Q12 SQ 03/15/17 21:00 05/10/17 20:59 04/11/17 08:03 5,000 UNIT Nystatin (Mycostatin Powder) 1 appln BID EXT 03/15/17 21:00 04/14/17 20:59 04/11/17 07:58 1 APPLN Calcium Carbonate (Tums Chew Tab) 2,000 mg QID PO 03/16/17 17:00 05/10/17 16:59 04/11/17 07:56 2,000 MG Calcium Carbonate (oS-Randy 500 TAB) 1,250 mg QID PO 03/18/17 09:00 05/10/17 08:59 04/11/17 07:54 1,250 MG Miscellaneous (Tap Water Enema) 1 ea Q2D PRN [place] 03/18/17 13:30 05/10/17 13:29 Heparin Sodium (Porcine) (Heparin 10 Unit/ ml 5 ml Flush) 5 ml PRN PRN FLUSH 03/18/17 15:30 05/10/17 15:29 04/06/17 05:39 5 ML Heparin Sodium (Porcine) (Heparin 10 Unit/ ml 5 ml Flush) 5 ml PRN PRN FLUSH 03/29/17 11:00 04/28/17 10:59 Hydrochlorothiazide (Hydrochlorothiazide Tab) 25 mg QAM PO 03/30/17 13:00 04/29/17 12:59 04/11/17 07:55 25 MG Nystatin (Mycostatin Susp) 5 ml QID PO 04/01/17 17:00 04/11/17 16:59 04/11/17 07:54 5 ML Benzonatate (Tessalon Perles Cap) 100 mg TID PRN PO 04/08/17 10:45 05/08/17 10:44 04/10/17 20:37 100 MG Calcitriol (Rocaltrol Cap) 4 mcg QAM PO 04/11/17 08:00 05/11/17 07:59 04/11/17 07:57 4 MCG Ergocalciferol (Vitamin D Cap) 50,000 interunit DAILY PO 04/11/17 08:00 04/23/17 07:59 04/11/17 07:58 50,000 INTERUNIT Calcium Gluconate 4000 mg/Sodium Chloride 140 ml @ 70 mls/hr Q2H IV 04/10/17 14:00 05/10/17 13:59 04/11/17 09:45 70 MLS/HR Potassium/ Phosphorus/Sodium (Phospha 250 Neutral 155-852-130 Mg) 2 tab QID PO 04/10/17 17:00 05/10/17 16:59 04/11/17 07:55 2 TAB Impression (1) Hypocalcemia (2) Prostate cancer (3) Hypertension Mr. 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 He developed severe hypocalcemia following treatment with Denosumab. Renal function is normal based on eGFR. EKG documented new QTc prolongation which improved with treatment. 25OH D deficiency documented on presentation. This was treated with ergocalciferol 48845 IU and cholecalciferol. Calcitriol is being provided. Aggressive replacement with PO and IV calcium continues. The patient has associated hypomagnesemia. This is being treated with IV magnesium sulfate. Based on review of the literature, medium time to calcium jonny is 21 days and median time to correction of hypocalcemia is 71 days. The patient continues to require IV calcium gluconate. Recommendations HYPOCALCEMIA: -- Serum calcium is now trending up following increase in IV Ca gluconate to 2 g / hr. Continue current infusion -- I have called [facility] and spoke w/ Therese ([facility] clinical pharmacy [phone] ). She confirmed 21 day half life of Xgeva. No reversal agent available. Recommended Ca infusion. They will file adverse event report w/ FDA -- Continue Calcitriol to 4 mcg daily -- Continue OsCal 2500 QID -- Continue TUMS 2 grams TID -- Continue Ergocalciferol 50,000 units daily x 12 doses (day #2) -- Vitamin D 35 (04/10) -- JASON report on hypocalcemia related to Denosumab scanned into EMR. Median time to correction ~ 21 days HYPOMAGNESEMIA: -- Will order 1 g IV Mg today -- Monitor BMP with Mg and phosphorus daily HYPOPHOSPHATEMIA: -- Continue oral NaPO4 replacement. Serum PO4 is trending up OTHER: -- OOB to chair daily -- Continue physical therapy for strengthening
[2017-04-11] MEDS ORDERED: MAGNESIUM SULFATE 1GM / D5W 1 GM in PREMIXED IN D5W 100 ML IV STA (11:22)
[2017-04-11 11:29] VITALS: BP 125/64; PULSE 94; TEMP 36.5; O2SAT 96
--- NOTE | 2017-04-11 14:55 | Progress Note ---
Subjective Date of Service: Apr 11, 2017. Subjective Pt evaluation today including: conversation w/ patient, conversation w/ family , physical exam, chart review, lab review, review of studies, conversation w/ regulatory services consultant, review of inpatient medication list Voiding: no voiding problems, bey catheter in place Patient was transferred to telemetry yesterday, monitor was unremarkable, EKG unremarkable, patient has no complaint doing the same, Problem List Medical Problems: (1) Dehydration Status: Acute (2) Failure to thrive Status: Acute (3) Hypomagnesemia Status: Acute (4) UTI (urinary tract infection) Status: Acute (5) Vomiting Status: Acute Review of Systems Constitutional: + weakness, + fatigue, No fever, No chills, No sweats, No weight loss, No problem reported Eyes: No worsening of vision, No eye pain, No redness, No discharge, No diplopia ENT: No hearing loss, No unusual epistaxis, No nasal symptoms, No sore throat, No tinnitus, No dental problems, No trouble swallowing Respiratory: No cough, No sputum, No wheezing, No shortness of breath, No dyspnea on exertion, No dyspnea at rest, No hemoptysis Cardiac: No chest pain, No orthopnea, No PND, No edema, No claudication, No palpitations Abdomen: No pain, No nausea, No vomiting, No diarrhea, No constipation Musculoskeletal: No joint pain, No muscle pain, No swelling, No calf pain Male : No dysuria, No urinary frequency, No incontinence, No nocturia more than once/night, No slowing stream, No hematuria Neurologic: No memory loss, No paralysis, No weakness, No numbness/tingling, No vertigo, No balance problems Psychiatric: No depression symptoms, No anhedonism, No anxiety, No insomnia, No substance abuse Heme: No abnormal bleeding/bruising, No clotting problems, No swollen lymph nodes, No night sweats Endo: No fatigue, No excessive thirst, No excessive urination Skin: No rash, No itch, No new/changing skin lesions, No color change, No bleeding Objective Vital Signs Date Time Temp Pulse Resp B/P (MAP) Pulse Ox O2 Delivery O2 Flow Rate FiO2 04/11/17 12:00 Room Air 04/11/17 11:29 36.5 94 16 125/64 (84) 96 Room Air 04/11/17 08:00 Room Air 04/11/17 07:09 36.7 73 16 132/61 (84) 97 Room Air 04/11/17 04:00 36.7 85 18 118/62 (80) 96 Room Air 04/11/17 04:00 96 Room Air 04/11/17 00:00 96 Room Air 04/10/17 23:53 36.8 83 20 128/67 (87) 96 Room Air 04/10/17 20:00 96 Room Air 04/10/17 19:42 36.8 87 20 148/72 (97) 96 Room Air 04/10/17 16:02 36.6 78 20 129/64 (85) 96 Room Air 04/10/17 16:00 96 Room Air Physical Exam General Appearance: WD/WN, no apparent distress, + thin, + pertinent finding ( Pleasant) Eyes: normal inspection, PERRL, EOMI, sclerae normal ENT: normal ENT inspection, hearing grossly normal, pharynx normal Neck: supple, no adenopathy, thyroid normal, no JVD, no carotid bruits, trachea midline Respiratory/Chest: chest non-tender, normal breath sounds, no respiratory distress, no accessory muscle use, + decreased breath sounds Cardiovascular: regular rate, rhythm, no edema, no gallop, no JVD, no murmur Abdomen: normal bowel sounds, non tender, soft, no organomegaly, no pulsatile mass, + pertinent finding (Bey catheter is in place) Extremities: normal range of motion, non-tender, normal inspection, no pedal edema, no calf tenderness, normal capillary refill, pelvis stable Neurologic/Psychiatric: job setter honing II-XII nml as tested, no motor/sensory deficits, alert, normal mood/affect, oriented x 3 Skin: normal color, warm/dry, no rash Lymphatic: no adenopathy Laboratory Results Last 24 Hours Test 04/11/17 05:30 Sodium Level 139 mmol/L Potassium Level 4.3 mmol/L Chloride Level 108 mmol/L Carbon Dioxide Level 24 mmol/L Anion Gap 7.0 mmol/L Blood Urea Nitrogen 7 mg/dl Creatinine 0.99 mg/dl Est Creatinine Clear Calc Drug Dose 49.2 ml/min Estimated GFR () 81.3 Estimated GFR (Non- 70.1 BUN/Creatinine Ratio 7.1 Random Glucose 86 mg/dl Calcium Level 8.2 mg/dl Phosphorus Level 2.4 mg/dl Magnesium Level 1.9 mg/dl Assessment and Plan 81 year old man with a history of prostate cancer and osteoblastic mets admitted because of severe hypocalcemia associated with with fatigue and found to have severe hypocalcemia secondary to his Denosumab (03/02/2017). has been on IV calcium and oral calcium therapy, still unable to increase his levels. , Today's calcium is 8.2, corrected is 8.9, It Operations Manager on the case , discussed about her care plan, made the follow changes: change infusion to Ca gluconate 4 g / 100 cc and infuse at 2 g per hour , increase calcitriol to 4 mcg daily, start Ergocalciferol 50,000 units daily x 12 doses, per life science research assistant patient may be discharged to home after corrected calcium 9.5 or higher, closely monitoring lytes and replace as needed, transferred to tele for better monitoring of arrhythmia events during the calcium infusion Discussed with disability case manager, there was recommendation [facility], check with life science research assistant, he feels if tele monitor available at the same time have nephrology to follow, this would be okay, I ask disability case manager to talk to family about this and will follow Continued [facility] stay due to: multiple IV medications needed Discharge planning: uncertain
[2017-04-11 15:38] VITALS: BP 121/61; PULSE 74; TEMP 36.4; O2SAT 95
[2017-04-11 19:25] VITALS: BP 121/63; PULSE 78; TEMP 36.8; O2SAT 95
[2017-04-11] MEDS: RANITIDINE HCL 150 MG TAB PO SCH (21:23)
[2017-04-11] MEDS: TAMSULOSIN HCL 0.4 MG CAP PO SCH (21:26)
[2017-04-12] VITALS (8 sets, daily range): BP systolic 105–120; BP diastolic 46–69; PULSE 73–92; TEMP 36.6–36.8; O2SAT 94–97
[2017-04-12] MEDS: CALCIUM GLUCONATE 10% 4,000 MG in SODIUM CHLORIDE 0.9% 100ML 100 ML IV SCH ×12 (02:03→23:52)
[2017-04-12 06:14] LABS: CALCIUM 8.9 mg/dl (8.5-10.1); CREATININE 1.03 mg/dl (0.60-1.40); PHOSPHORUS 2.2 mg/dl (2.5-4.9); POTASSIUM 4.7 mmol/L (3.5-5.1)
[2017-04-12] MEDS ORDERED: SODIUM PHOSPHATE 3 MMOL/1 ML INFUSION IV ONE (08:15)
[2017-04-12] MEDS: CALCITRIOL 0.25 MCG CAP PO SCH (08:32)
[2017-04-12] MEDS: CALCIUM CARBONATE 1250MG TAB PO SCH ×4 (08:32→20:52)
[2017-04-12] MEDS: DOCUSATE SODIUM 100 MG CAP PO SCH ×2 (08:33→20:52)
[2017-04-12] MEDS: PANTOprazole SOD 40 MG TAB PO SCH (08:33)
[2017-04-12] MEDS: NYSTATIN POWDER 15GM BTL EXT SCH ×2 (08:34→20:50)
[2017-04-12] MEDS: ERGOCALCIFEROL 50,000 INTER.UNIT CAP PO SCH (08:34)
[2017-04-12] MEDS: HYDROCHLOROTHIAZIDE 25 MG TAB PO SCH (08:34)
[2017-04-12] MEDS: CALCIUM CARBONATE 500 MG CHEWABLE PO SCH ×4 (08:34→20:51)
[2017-04-12] MEDS: POT PHOSPHATE MONOBASIC W/ SOD TAB PO SCH ×4 (08:34→20:54)
[2017-04-12] MEDS: HEPARIN SOD 5000 UNIT/0.5 ML CARP SQ SCH ×2 (08:39→20:53)
[2017-04-12] MEDS ORDERED: SODIUM PHOSPHATE INJ 15 MMOL in SODIUM CHLORIDE 0.9% 250ML 250 ML IV ONE (08:45)
--- NOTE | 2017-04-12 11:17 | Hospitalist Progress Note ---
Hospitalist Progress Note Date of Service Apr 12, 2017. Subjective Pt evaluation today including: conversation w/ patient, physical exam, lab review, review of inpatient medication list Voiding: bey catheter in place Patient resting in bed. Feeling well. Discussed possibly transferring to [facility]. Pt/son do not wish to do so and prefer to stay in hospital until Ca resolved. Eating and drinking OK. Cough continues to improve. Patient denies any fever, chills, sweats, lightheadedness, dizziness, vision changes, CP, palpitations, edema, SOB, wheezing, abdominal pain, nausea, vomiting, diarrhea, urinary symptoms, melena, numbness/tingling, weakness, muscle/joint pain, anxiety/depression, active bleeding, or new skin discoloration/changes. Medications Current Inpatient Medications Medications (Trade) Dose Ordered Sig/Jonathan Route Start Time Stop Time Status Last Admin Dose Admin Acetaminophen (Tylenol Tab) 650 mg Q4H PRN PO 03/15/17 14:15 05/10/17 14:14 Tamsulosin HCl (Flomax Cap) 0.8 mg HS PO 03/15/17 21:00 05/10/17 20:59 04/11/17 21:26 0.8 MG Miscellaneous Information (Order Awaiting Action) 1 ea QS N/A 03/15/17 16:00 05/10/17 15:59 Pantoprazole Sodium (Protonix Tab) 40 mg QAM PO 03/16/17 09:00 05/10/17 08:59 04/12/17 08:33 40 MG Ranitidine HCl (zANTac TAB) 300 mg HS PO 03/15/17 21:00 05/10/17 20:59 04/11/17 21:23 300 MG Polyethylene (Miralax Powder Packet) 17 gm DAILY PRN PO 03/15/17 15:00 05/10/17 14:59 Docusate Sodium (coLACE CAP) 100 mg BID PO 03/15/17 21:00 05/10/17 20:59 04/12/17 08:33 100 MG Bisacodyl (Dulcolax Supp) 10 mg DAILY PRN [place] 03/15/17 15:00 05/10/17 14:59 Heparin Sodium (Porcine) (Heparin Sq 5000 Unit/0.5ml) 5,000 unit Q12 SQ 03/15/17 21:00 05/10/17 20:59 04/12/17 08:39 5,000 UNIT Nystatin (Mycostatin Powder) 1 appln BID EXT 03/15/17 21:00 04/14/17 20:59 04/12/17 08:34 1 APPLN Calcium Carbonate (Tums Chew Tab) 2,000 mg QID PO 03/16/17 17:00 05/10/17 16:59 04/12/17 08:34 2,000 MG Calcium Carbonate (oS-Randy 500 TAB) 1,250 mg QID PO 03/18/17 09:00 05/10/17 08:59 04/12/17 08:32 1,250 MG Miscellaneous (Tap Water Enema) 1 ea Q2D PRN [place] 03/18/17 13:30 05/10/17 13:29 Heparin Sodium (Porcine) (Heparin 10 Unit/ ml 5 ml Flush) 5 ml PRN PRN FLUSH 03/18/17 15:30 05/10/17 15:29 04/06/17 05:39 5 ML Heparin Sodium (Porcine) (Heparin 10 Unit/ ml 5 ml Flush) 5 ml PRN PRN FLUSH 03/29/17 11:00 04/28/17 10:59 Hydrochlorothiazide (Hydrochlorothiazide Tab) 25 mg QAM PO 03/30/17 13:00 04/29/17 12:59 04/12/17 08:34 25 MG Benzonatate (Tessalon Perles Cap) 100 mg TID PRN PO 04/08/17 10:45 05/08/17 10:44 04/10/17 20:37 100 MG Calcitriol (Rocaltrol Cap) 4 mcg QAM PO 04/11/17 08:00 05/11/17 07:59 04/12/17 08:32 4 MCG Ergocalciferol (Vitamin D Cap) 50,000 interunit DAILY PO 04/11/17 08:00 04/23/17 07:59 04/12/17 08:34 50,000 INTERUNIT Calcium Gluconate 4000 mg/Sodium Chloride 140 ml @ 70 mls/hr Q2H IV 04/10/17 14:00 05/10/17 13:59 04/12/17 10:47 70 MLS/HR Potassium/ Phosphorus/Sodium (Phospha 250 Neutral 155-852-130 Mg) 2 tab QID PO 04/10/17 17:00 05/10/17 16:59 04/12/17 08:34 2 TAB Objective Vital Signs Date Time Temp Pulse Resp B/P (MAP) Pulse Ox O2 Delivery O2 Flow Rate FiO2 04/12/17 08:00 Room Air 04/12/17 07:42 36.7 73 16 109/46 (67) 95 Room Air 04/12/17 04:00 Room Air 04/12/17 04:00 36.8 82 18 116/65 (82) 96 Room Air 04/12/17 00:20 36.8 82 16 105/62 (76) 94 Room Air 04/12/17 00:00 Room Air 04/11/17 20:00 Room Air 04/11/17 19:25 36.8 78 18 121/63 (82) 95 Room Air 04/11/17 16:00 Room Air 04/11/17 15:38 36.4 74 121/61 (81) 95 Room Air 04/11/17 12:00 Room Air 04/11/17 11:29 36.5 94 16 125/64 (84) 96 Room Air Physical Exam General Appearance: no apparent distress Eyes: normal inspection, PERRL ENT: hearing grossly normal Neck: supple Respiratory/Chest: lungs clear, no respiratory distress, no accessory muscle use Cardiovascular: regular rate, rhythm Abdomen: normal bowel sounds, non tender, soft Extremities: no pedal edema, no calf tenderness Neurologic/Psychiatric: alert, normal mood/affect, oriented x 3 Skin: normal color, warm/dry, no rash Laboratory Results Last 24 Hours Test 04/12/17 05:29 Sodium Level 138 mmol/L Potassium Level 4.7 mmol/L Chloride Level 107 mmol/L Carbon Dioxide Level 24 mmol/L Anion Gap 7.0 mmol/L Blood Urea Nitrogen 7 mg/dl Creatinine 1.03 mg/dl Est Creatinine Clear Calc Drug Dose 47.3 ml/min Estimated GFR () 77.5 Estimated GFR (Non- 66.9 BUN/Creatinine Ratio 7.2 Random Glucose 88 mg/dl Calcium Level 8.9 mg/dl Ionized Calcium 1.20 mmol/l Phosphorus Level 2.2 mg/dl Magnesium Level 1.8 mg/dl Assessment and Plan Mr. Greene is an 81 year old man with a history of prostate cancer and osteoblastic mets that presented with fatigue and found to have severe hypocalcemia thought secondary to his Denosumab (03/02/2017). Hypocalcemia secondary to chemotherapy: - Transferred to [facility] for cardiac monitoring- no acute events - Ca 8.9 today; ionized ca 1.2 - HCTZ 25 mg daily - Nephrology consulted, appreciate recommendations: -- Continue Calcium gluconate infusion at 2 gm/hr- consider reducing or stopping infusion when corrected calcium 9.5 or higher -- Continue calcitriol 4 mcg daily, OsCal to 2500 QID, TUMS 2 grams TID -- Vitamin D 35 (04/10), Ergocalciferol 50,000 units daily x 12 doses (day #3 ) Hypophosphatemia- STABLE: Replacing w/ phosphate supplement 2 tabs QID, and IV supplement PRN, continue to follow Hypomagnesemia- RESOLVED: IV Mag 1 gm today, continue to follow and replace PRN Prostate cancer w/ mets to bone- STABLE: Continue Flomax and Proscar Cough w/ white/clear sputum production- IMPROVING: - No fevers, no SOB/hypoxia, lungs clear, no white count - Encouraged ambulation and OOB in chair - Tessalon Perles TID PRN for cough - Continue to follow Stenotrophomonas and enterococcus UTI w/ chronic Eby: Completed 10 day course of antibiotic treatment 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
--- NOTE | 2017-04-12 15:52 | Nephrology Progress Note ---
Nephrology Progress Note Date of Service Apr 12, 2017. Chief Complaint Hypocalcemia, metastatic prostate cancer Subjective Mr. Greene was seen & examined in his hospital room this morning. He denied muscle spasms. He voices no new medical concerns. Review of Systems Constitutional: No fever Cardiovascular: No chest pain Respiratory: No dyspnea at rest Abdomen: No pain, No nausea, No vomiting Extremities: No leg edema A complete review of systems was performed. Pertinent positives are noted above. All other systems are negative. Vital Signs Last 8 Hrs Date Time Temp Pulse Resp B/P (MAP) Pulse Ox O2 Delivery O2 Flow Rate FiO2 04/12/17 12:00 Room Air 04/12/17 11:40 36.7 92 16 108/61 (77) 96 Room Air 04/12/17 08:00 Room Air I & O 24-Hour Column 04/13/17 08:00 Intake Total 1280 ml Output Total 800 ml Balance 480 ml Last Recorded Weight Weight (Kilograms): 62.400 Physical Exam General Appearance: no apparent distress Head: normocephalic, atraumatic Eyes: PERRL, EOMI Neck: no adenopathy Respiratory/Chest: lungs clear, normal breath sounds, no respiratory distress Cardiovascular: regular rate, rhythm Abdomen/GI: normal bowel sounds, non tender, soft Extremities/Musculoskelatal: no pedal edema Neurologic/Psych: alert, oriented x 3 Social History Drug Use: none Marital Status: Housing Status: lives with family (lives with son) 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 04/12/17 05:29 Test 04/12/17 05:29 Anion Gap 7.0 mmol/L (3-11) Est Creatinine Clear Calc Drug Dose 47.3 ml/min Estimated GFR () 77.5 Estimated GFR (Non- 66.9 BUN/Creatinine Ratio 7.2 (10-20) Calcium Level 8.9 mg/dl (8.5-10.1) Ionized Calcium 1.20 mmol/l (1.12-1.32) Phosphorus Level 2.2 mg/dl (2.5-4.9) Magnesium Level 1.8 mg/dl (1.8-2.4) Allergies Coded Allergies: No Known Allergies (Unverified , 03/15/17) Medications Current Inpatient Medications Medications (Trade) Dose Ordered Sig/Jonathan Route Start Time Stop Time Status Last Admin Dose Admin Acetaminophen (Tylenol Tab) 650 mg Q4H PRN PO 03/15/17 14:15 05/10/17 14:14 Tamsulosin HCl (Flomax Cap) 0.8 mg HS PO 03/15/17 21:00 05/10/17 20:59 04/11/17 21:26 0.8 MG Miscellaneous Information (Order Awaiting Action) 1 ea QS N/A 03/15/17 16:00 05/10/17 15:59 Pantoprazole Sodium (Protonix Tab) 40 mg QAM PO 03/16/17 09:00 05/10/17 08:59 04/12/17 08:33 40 MG Ranitidine HCl (zANTac TAB) 300 mg HS PO 03/15/17 21:00 05/10/17 20:59 04/11/17 21:23 300 MG Polyethylene (Miralax Powder Packet) 17 gm DAILY PRN PO 03/15/17 15:00 05/10/17 14:59 Docusate Sodium (coLACE CAP) 100 mg BID PO 03/15/17 21:00 05/10/17 20:59 04/12/17 08:33 100 MG Bisacodyl (Dulcolax Supp) 10 mg DAILY PRN MO 03/15/17 15:00 05/10/17 14:59 Heparin Sodium (Porcine) (Heparin Sq 5000 Unit/0.5ml) 5,000 unit Q12 SQ 03/15/17 21:00 05/10/17 20:59 04/12/17 08:39 5,000 UNIT Nystatin (Mycostatin Powder) 1 appln BID EXT 03/15/17 21:00 04/14/17 20:59 04/12/17 08:34 1 APPLN Calcium Carbonate (Tums Chew Tab) 2,000 mg QID PO 03/16/17 17:00 05/10/17 16:59 04/12/17 12:38 2,000 MG Calcium Carbonate (oS-Randy 500 TAB) 1,250 mg QID PO 03/18/17 09:00 05/10/17 08:59 04/12/17 12:38 1,250 MG Miscellaneous (Tap Water Enema) 1 ea Q2D PRN MO 03/18/17 13:30 05/10/17 13:29 Heparin Sodium (Porcine) (Heparin 10 Unit/ ml 5 ml Flush) 5 ml PRN PRN FLUSH 03/18/17 15:30 05/10/17 15:29 04/06/17 05:39 5 ML Heparin Sodium (Porcine) (Heparin 10 Unit/ ml 5 ml Flush) 5 ml PRN PRN FLUSH 03/29/17 11:00 04/28/17 10:59 Hydrochlorothiazide (Hydrochlorothiazide Tab) 25 mg QAM PO 03/30/17 13:00 04/29/17 12:59 04/12/17 08:34 25 MG Benzonatate (Tessalon Perles Cap) 100 mg TID PRN PO 04/08/17 10:45 05/08/17 10:44 04/10/17 20:37 100 MG Calcitriol (Rocaltrol Cap) 4 mcg QAM PO 04/11/17 08:00 05/11/17 07:59 04/12/17 08:32 4 MCG Ergocalciferol (Vitamin D Cap) 50,000 interunit DAILY PO 04/11/17 08:00 04/23/17 07:59 04/12/17 08:34 50,000 INTERUNIT Calcium Gluconate 4000 mg/Sodium Chloride 140 ml @ 70 mls/hr Q2H IV 04/10/17 14:00 05/10/17 13:59 04/12/17 14:38 70 MLS/HR Potassium/ Phosphorus/Sodium (Phospha 250 Neutral 155-852-130 Mg) 2 tab QID PO 04/10/17 17:00 05/10/17 16:59 04/12/17 12:37 2 TAB Impression (1) Hypocalcemia (2) Prostate cancer (3) Hypertension Mr. 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 He developed severe hypocalcemia following treatment with Denosumab. Renal function is normal based on eGFR. EKG documented new QTc prolongation which improved with treatment. 25OH D deficiency documented on presentation. This was treated with ergocalciferol 17064 IU and cholecalciferol. Calcitriol is being provided. Aggressive replacement with PO and IV calcium continues. The patient has associated hypomagnesemia. This is being treated with IV magnesium sulfate. Based on review of the literature, medium time to calcium jonny is 21 days and median time to correction of hypocalcemia is 71 days. The patient continues to require IV calcium gluconate. Recommendations HYPOCALCEMIA: -- Serum calcium is now trending up following increase in IV Ca gluconate to 2 g / hr. Continue current infusion -- I have called [facility] and spoke w/ Therese ([facility] clinical pharmacy [phone] ). She confirmed 21 day half life of Xgeva. No reversal agent available. Recommended Ca infusion. They will file adverse event report w/ FDA -- Continue Calcitriol to 4 mcg daily -- Continue OsCal 2500 QID -- Continue TUMS 2 grams TID -- Continue Ergocalciferol 50,000 units daily x 12 doses (day #2) -- Vitamin D 35 (04/10) -- JASON report on hypocalcemia related to Denosumab scanned into EMR. Median time to correction ~ 21 days HYPOMAGNESEMIA: -- Will order 1 g IV Mg today -- Monitor BMP with Mg and phosphorus daily HYPOPHOSPHATEMIA: -- Continue oral NaPO4 replacement. Serum PO4 is trending up OTHER: -- OOB to chair daily -- Continue physical therapy for strengthening
[2017-04-12] MEDS: TAMSULOSIN HCL 0.4 MG CAP PO SCH (20:50)
[2017-04-12] MEDS: RANITIDINE HCL 150 MG TAB PO SCH (20:52)
[2017-04-13] VITALS (8 sets, daily range): BP systolic 101–136; BP diastolic 49–77; PULSE 79–85; TEMP 36.5–36.9; O2SAT 91–96
[2017-04-13] MEDS: CALCIUM GLUCONATE 10% 4,000 MG in SODIUM CHLORIDE 0.9% 100ML 100 ML IV SCH ×5 (01:04→09:01)
[2017-04-13 06:08] LABS: CALCIUM 8.8 mg/dl (8.5-10.1); CREATININE 1.12 mg/dl (0.60-1.40); PHOSPHORUS 2.2 mg/dl (2.5-4.9); POTASSIUM 4.5 mmol/L (3.5-5.1)
[2017-04-13] MEDS: HYDROCHLOROTHIAZIDE 25 MG TAB PO SCH (07:51)
[2017-04-13] MEDS: CALCIUM CARBONATE 500 MG CHEWABLE PO SCH ×4 (07:51→21:30)
[2017-04-13] MEDS: CALCIUM CARBONATE 1250MG TAB PO SCH ×4 (07:52→21:26)
[2017-04-13] MEDS: PANTOprazole SOD 40 MG TAB PO SCH (07:52)
[2017-04-13] MEDS: DOCUSATE SODIUM 100 MG CAP PO SCH ×2 (07:52→21:25)
[2017-04-13] MEDS: ERGOCALCIFEROL 50,000 INTER.UNIT CAP PO SCH (07:52)
[2017-04-13] MEDS: CALCITRIOL 0.25 MCG CAP PO SCH (07:53)
[2017-04-13] MEDS: POT PHOSPHATE MONOBASIC W/ SOD TAB PO SCH ×4 (07:55→21:26)
[2017-04-13] MEDS: NYSTATIN POWDER 15GM BTL EXT SCH ×2 (07:57→21:23)
[2017-04-13] MEDS ORDERED: MAGNESIUM SULFATE 1GM / D5W 1 GM in PREMIXED IN D5W 100 ML IV SCH (08:00)
[2017-04-13] MEDS: HEPARIN SOD 5000 UNIT/0.5 ML CARP SQ SCH ×2 (08:00→21:37)
[2017-04-13] MEDS: MAGNESIUM OXIDE 400 MG TAB PO SCH ×2 (08:04→21:26)
--- NOTE | 2017-04-13 10:50 | Nephrology Progress Note ---
Nephrology Progress Note Date of Service Apr 13, 2017. Chief Complaint Hypocalcemia, metastatic prostate cancer Subjective Mr. Greene was seen & examined in his hospital room this morning. He is tolerating IV calcium infusion without complication. He denies weakness or muscle cramping. Mr. Greene remains active by ambulating in the hallway daily. Review of Systems Constitutional: No fever Cardiovascular: No chest pain Respiratory: No dyspnea at rest Abdomen: No pain, No nausea, No vomiting Extremities: No leg edema A complete review of systems was performed. Pertinent positives are noted above. All other systems are negative. Vital Signs Last 8 Hrs Date Time Temp Pulse Resp B/P (MAP) Pulse Ox O2 Delivery O2 Flow Rate FiO2 04/13/17 08:00 Room Air 04/13/17 07:23 36.8 81 18 122/67 (85) 91 Room Air 04/13/17 04:54 36.8 79 18 103/53 (70) 92 Room Air 04/13/17 04:00 94 Room Air Last Recorded Weight Weight (Kilograms): 62.400 Physical Exam General Appearance: no apparent distress Head: normocephalic, atraumatic Eyes: PERRL, EOMI Neck: no adenopathy Respiratory/Chest: lungs clear, no respiratory distress Cardiovascular: regular rate, rhythm Abdomen/GI: normal bowel sounds, non tender, soft Extremities/Musculoskelatal: no calf tenderness, no pedal edema Neurologic/Psych: alert, oriented x 3 Social History Drug Use: none Marital Status: Housing Status: lives with family (lives with son) 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 04/13/17 05:23 Test 04/13/17 05:23 Anion Gap 9.0 mmol/L (3-11) Est Creatinine Clear Calc Drug Dose 43.5 ml/min Estimated GFR () 70.0 Estimated GFR (Non- 60.4 BUN/Creatinine Ratio 9.3 (10-20) Calcium Level 8.8 mg/dl (8.5-10.1) Ionized Calcium 1.17 mmol/l (1.12-1.32) Phosphorus Level 2.2 mg/dl (2.5-4.9) Magnesium Level 1.6 mg/dl (1.8-2.4) Allergies Coded Allergies: No Known Allergies (Unverified , 03/15/17) Medications Current Inpatient Medications Medications (Trade) Dose Ordered Sig/Jonathan Route Start Time Stop Time Status Last Admin Dose Admin Acetaminophen (Tylenol Tab) 650 mg Q4H PRN PO 03/15/17 14:15 05/10/17 14:14 Tamsulosin HCl (Flomax Cap) 0.8 mg HS PO 03/15/17 21:00 05/10/17 20:59 04/12/17 20:50 0.8 MG Miscellaneous Information (Order Awaiting Action) 1 ea QS N/A 03/15/17 16:00 05/10/17 15:59 Pantoprazole Sodium (Protonix Tab) 40 mg QAM PO 03/16/17 09:00 05/10/17 08:59 04/13/17 07:52 40 MG Ranitidine HCl (zANTac TAB) 300 mg HS PO 03/15/17 21:00 05/10/17 20:59 04/12/17 20:52 300 MG Polyethylene (Miralax Powder Packet) 17 gm DAILY PRN PO 03/15/17 15:00 05/10/17 14:59 Docusate Sodium (coLACE CAP) 100 mg BID PO 03/15/17 21:00 05/10/17 20:59 04/13/17 07:52 100 MG Bisacodyl (Dulcolax Supp) 10 mg DAILY PRN DC 03/15/17 15:00 05/10/17 14:59 Heparin Sodium (Porcine) (Heparin Sq 5000 Unit/0.5ml) 5,000 unit Q12 SQ 03/15/17 21:00 05/10/17 20:59 04/13/17 08:00 5,000 UNIT Nystatin (Mycostatin Powder) 1 appln BID EXT 03/15/17 21:00 04/14/17 20:59 04/13/17 07:57 1 APPLN Calcium Carbonate (Tums Chew Tab) 2,000 mg QID PO 03/16/17 17:00 05/10/17 16:59 04/13/17 07:51 2,000 MG Calcium Carbonate (oS-Randy 500 TAB) 1,250 mg QID PO 03/18/17 09:00 05/10/17 08:59 04/13/17 07:52 1,250 MG Miscellaneous (Tap Water Enema) 1 ea Q2D PRN DC 03/18/17 13:30 05/10/17 13:29 Heparin Sodium (Porcine) (Heparin 10 Unit/ ml 5 ml Flush) 5 ml PRN PRN FLUSH 03/18/17 15:30 05/10/17 15:29 04/06/17 05:39 5 ML Heparin Sodium (Porcine) (Heparin 10 Unit/ ml 5 ml Flush) 5 ml PRN PRN FLUSH 03/29/17 11:00 04/28/17 10:59 Hydrochlorothiazide (Hydrochlorothiazide Tab) 25 mg QAM PO 03/30/17 13:00 04/29/17 12:59 04/13/17 07:51 25 MG Benzonatate (Tessalon Perles Cap) 100 mg TID PRN PO 04/08/17 10:45 05/08/17 10:44 04/10/17 20:37 100 MG Calcitriol (Rocaltrol Cap) 4 mcg QAM PO 04/11/17 08:00 05/11/17 07:59 04/13/17 07:53 4 MCG Ergocalciferol (Vitamin D Cap) 50,000 interunit DAILY PO 04/11/17 08:00 04/23/17 07:59 04/13/17 07:52 50,000 INTERUNIT Potassium/ Phosphorus/Sodium (Phospha 250 Neutral 155-852-130 Mg) 2 tab QID PO 04/10/17 17:00 05/10/17 16:59 04/13/17 07:55 2 TAB Magnesium Oxide (Mag-Ox Tab) 400 mg BID PO 04/13/17 09:00 04/16/17 08:59 04/13/17 08:04 400 MG Calcium Gluconate 79647 mg/Sodium Chloride 700 ml @ 70 mls/hr Q10H IV 04/13/17 11:00 05/13/17 10:59 Impression (1) Hypocalcemia (2) Prostate cancer (3) Hypertension Mr. 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 He developed severe hypocalcemia following treatment with Denosumab. Renal function is normal based on eGFR. EKG documented new QTc prolongation which improved with treatment. 25OH D deficiency documented on presentation. This was treated with ergocalciferol 58067 IU and cholecalciferol. Calcitriol is being provided. Aggressive replacement with PO and IV calcium continues. The patient has associated hypomagnesemia. This is being treated with IV magnesium sulfate. Based on review of the literature, medium time to calcium jonny is 21 days and median time to correction of hypocalcemia is 71 days. The patient continues to require IV calcium gluconate. Recommendations HYPOCALCEMIA: -- Serum calcium is now trending up following increase in IV Ca gluconate to 2 g / hr. Continue current infusion -- I have called [facility] and spoke w/ Therese ([facility] clinical pharmacy [phone] ). She confirmed 21 day half life of Xgeva. No reversal agent available. They have recommended Ca infusion. They will file adverse event report w/ FDA -- Continue Calcitriol 4 mcg daily -- Continue OsCal 2500 QID -- Continue TUMS 2 grams TID -- Continue Ergocalciferol 50,000 units daily x 12 doses (day #2) -- Vitamin D 35 (04/10) -- SEANCassidy report on hypocalcemia related to Denosumab scanned into EMR. Median time to correction ~ 21 days HYPOMAGNESEMIA: -- Will order 2 g IV Mg today -- Monitor BMP with Mg and phosphorus daily HYPOPHOSPHATEMIA: -- Continue oral NaPO4 replacement. Serum PO4 is trending up OTHER: -- OOB to chair daily -- Continue physical therapy for strengthening
[2017-04-13] MEDS: CALCIUM GLUCONATE IV SCH ×2 (11:04→21:23)
[2017-04-13] MEDS: SODIUM CHLORIDE 0.9% IV SCH ×2 (11:04→21:23)
[2017-04-13] MEDS: MAGNESIUM SULFATE 1GM / D5W 1 GM in PREMIXED IN D5W 100 ML IV SCH ×2 (13:26→14:19)
--- NOTE | 2017-04-13 15:54 | Progress Note ---
Subjective Date of Service: Apr 13, 2017. Subjective Pt evaluation today including: conversation w/ patient, conversation w/ family , physical exam, chart review, lab review, review of studies, conversation w/ method consultant, review of inpatient medication list Doing fair, walk, no complaints, eating voiding good Problem List Medical Problems: (1) Dehydration Status: Acute (2) Failure to thrive Status: Acute (3) Hypomagnesemia Status: Acute (4) UTI (urinary tract infection) Status: Acute (5) Vomiting Status: Acute Review of Systems Constitutional: + weakness, + fatigue, No fever, No chills, No sweats, No weight loss, No problem reported Eyes: No worsening of vision, No eye pain, No redness, No discharge, No diplopia ENT: No hearing loss, No unusual epistaxis, No nasal symptoms, No sore throat, No tinnitus, No dental problems, No trouble swallowing Respiratory: No cough, No sputum, No wheezing, No shortness of breath, No dyspnea on exertion, No dyspnea at rest, No hemoptysis Cardiac: No chest pain, No orthopnea, No PND, No edema, No claudication, No palpitations Abdomen: No pain, No nausea, No vomiting, No diarrhea, No constipation Musculoskeletal: No joint pain, No muscle pain, No swelling, No calf pain Male : No dysuria, No urinary frequency, No incontinence, No nocturia more than once/night, No slowing stream, No hematuria Neurologic: No memory loss, No paralysis, No weakness, No numbness/tingling, No vertigo, No balance problems Psychiatric: No depression symptoms, No anhedonism, No anxiety, No insomnia, No substance abuse Heme: No abnormal bleeding/bruising, No clotting problems, No swollen lymph nodes, No night sweats Endo: No fatigue, No excessive thirst, No excessive urination Skin: No rash, No itch, No new/changing skin lesions, No color change, No bleeding Objective Vital Signs Date Time Temp Pulse Resp B/P (MAP) Pulse Ox O2 Delivery O2 Flow Rate FiO2 04/13/17 15:12 84 18 101/50 (67) 96 Room Air 04/13/17 12:00 Room Air 04/13/17 11:42 36.5 85 16 121/49 (73) 95 04/13/17 08:00 Room Air 04/13/17 07:23 36.8 81 18 122/67 (85) 91 Room Air 04/13/17 04:54 36.8 79 18 103/53 (70) 92 Room Air 04/13/17 04:00 94 Room Air 04/13/17 00:06 36.9 79 18 125/68 (87) 94 Room Air 04/12/17 23:59 94 Room Air 04/12/17 20:05 36.6 78 18 120/69 (86) 96 Room Air 04/12/17 20:00 94 Room Air 04/12/17 16:00 36.8 80 20 117/66 (83) 97 Room Air 04/12/17 16:00 96 Room Air Physical Exam General Appearance: WD/WN, no apparent distress, + thin Eyes: normal inspection, PERRL, EOMI, sclerae normal ENT: normal ENT inspection, hearing grossly normal, pharynx normal Neck: supple, no adenopathy, thyroid normal, no JVD, no carotid bruits, trachea midline Respiratory/Chest: chest non-tender, normal breath sounds, no respiratory distress, no accessory muscle use, + decreased breath sounds Cardiovascular: regular rate, rhythm, no edema, no gallop, no JVD, no murmur Abdomen: normal bowel sounds, non tender, soft, no organomegaly, no pulsatile mass Extremities: normal range of motion, non-tender, normal inspection, no pedal edema, no calf tenderness, normal capillary refill, pelvis stable Neurologic/Psychiatric: drawer in jacquard loom II-XII nml as tested, no motor/sensory deficits, alert, normal mood/affect, oriented x 3 Skin: normal color, warm/dry, no rash Lymphatic: no adenopathy Laboratory Results Last 24 Hours Test 04/13/17 05:23 Sodium Level 139 mmol/L Potassium Level 4.5 mmol/L Chloride Level 107 mmol/L Carbon Dioxide Level 23 mmol/L Anion Gap 9.0 mmol/L Blood Urea Nitrogen 10 mg/dl Creatinine 1.12 mg/dl Est Creatinine Clear Calc Drug Dose 43.5 ml/min Estimated GFR () 70.0 Estimated GFR (Non- 60.4 BUN/Creatinine Ratio 9.3 Random Glucose 84 mg/dl Calcium Level 8.8 mg/dl Ionized Calcium 1.17 mmol/l Phosphorus Level 2.2 mg/dl Magnesium Level 1.6 mg/dl Assessment and Plan 81 year old man with a history of prostate cancer and osteoblastic mets admitted because of severe hypocalcemia associated with with fatigue and found to have severe hypocalcemia secondary to his Denosumab (03/02/2017) has been on IV calcium and oral calcium therapy, still unable to increase his levels. Today's calcium is 8.8, corrected is 9.5 Veterinary Bacteriologist on the case , discussed about her care plan, made the follow changes: change infusion to Ca gluconate 4 g / 100 cc and infuse at 2 g per hour, cont calcitriol to 4 mcg daily, cont Ergocalciferol 50,000 units daily per ornamental metal worker apprentice patient may be discharged to home after corrected calcium 9.5 or higher, closely monitoring lytes and replace as needed, cont tele for better monitoring of arrhythmia events during the calcium infusion Discussed with telephonic case manager, there was recommendation to go to [facility], check with ornamental metal worker apprentice, he feels if tele monitor available at the same time have nephrology to follow, this would be okay, however patient and patient's family declined to go to [facility] per report: hypocalcemia related to Denosumab. Median time to correction ~ 21 days, pt has been here 29 days Continued [facility] stay due to: multiple IV medications needed Discharge planning: uncertain
[2017-04-13] MEDS: TAMSULOSIN HCL 0.4 MG CAP PO SCH (21:25)
[2017-04-13] MEDS: RANITIDINE HCL 150 MG TAB PO SCH (21:31)
[2017-04-14] VITALS (8 sets, daily range): BP systolic 87–124; BP diastolic 46–70; PULSE 78–100; TEMP 36.5–37; O2SAT 92–98
[2017-04-14 06:33] LABS: CALCIUM 9.1 mg/dl (8.5-10.1); CREATININE 1.13 mg/dl (0.60-1.40); PHOSPHORUS 2.2 mg/dl (2.5-4.9)
[2017-04-14] MEDS: PANTOprazole SOD 40 MG TAB PO SCH (08:06)
[2017-04-14] MEDS: DOCUSATE SODIUM 100 MG CAP PO SCH ×2 (08:06→21:08)
[2017-04-14] MEDS: CALCIUM GLUCONATE IV SCH ×2 (08:06→17:11)
[2017-04-14] MEDS: MAGNESIUM OXIDE 400 MG TAB PO SCH ×2 (08:06→21:09)
[2017-04-14] MEDS: SODIUM CHLORIDE 0.9% IV SCH ×2 (08:06→17:11)
[2017-04-14] MEDS: CALCIUM CARBONATE 1250MG TAB PO SCH ×4 (08:06→21:07)
[2017-04-14] MEDS: CALCIUM CARBONATE 500 MG CHEWABLE PO SCH ×4 (08:07→21:07)
[2017-04-14] MEDS: CALCITRIOL 0.25 MCG CAP PO SCH (08:07)
[2017-04-14] MEDS: POT PHOSPHATE MONOBASIC W/ SOD TAB PO SCH ×4 (08:08→21:06)
[2017-04-14] MEDS: HYDROCHLOROTHIAZIDE 25 MG TAB PO SCH (08:08)
[2017-04-14] MEDS: ERGOCALCIFEROL 50,000 INTER.UNIT CAP PO SCH (08:08)
[2017-04-14] MEDS: HEPARIN SOD 5000 UNIT/0.5 ML CARP SQ SCH ×2 (08:13→21:10)
[2017-04-14] MEDS: NYSTATIN POWDER 15GM BTL EXT SCH (09:12)
--- NOTE | 2017-04-14 11:18 | Nephrology Progress Note ---
Nephrology Progress Note Date of Service Apr 14, 2017. Chief Complaint Follow-up for hypocalcemia Subjective David was seen and examined in his room this morning. He has been otherwise feeling fine, denies any overnight events. Has been active, walks around the hallway eating well. Calcium improved to 10.0 on IV and oral calcium and calcitriol. Blood pressure has been relatively soft but asymptomatic. Review of Systems A complete review of systems was performed. Pertinent positives are noted above. All other systems are negative. Vital Signs Last 8 Hrs Date Time Temp Pulse Resp B/P (MAP) Pulse Ox O2 Delivery O2 Flow Rate FiO2 04/14/17 07:37 36.6 78 16 99/52 (68) 92 Room Air 04/14/17 04:00 Room Air 04/14/17 03:00 36.7 86 20 97/57 (70) 96 Room Air Last Recorded Weight Weight (Kilograms): 62.400 Physical Exam GENERAL: Elderly male , AAA x 3, pleasant, healthy-appearing, not in any distress. NECK: Supple, no JVD. RESPIRATORY: Normal breathing efforts, no accessory muscle use, clear to auscultation bilaterally, no wheezes or rales. CARDIOVASCULAR: S1, S2 normal, rate rhythm regular. EXTREMITY: No lower extremity edema NEURO: speech fluent. 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 04/14/17 00:55 Test 04/14/17 00:55 Anion Gap 10.0 mmol/L (3-11) Est Creatinine Clear Calc Drug Dose 43.1 ml/min Estimated GFR () 69.3 Estimated GFR (Non- 59.8 BUN/Creatinine Ratio 11.9 (10-20) Calcium Level 9.1 mg/dl (8.5-10.1) Ionized Calcium 1.17 mmol/l (1.12-1.32) Phosphorus Level 2.2 mg/dl (2.5-4.9) Magnesium Level 1.9 mg/dl (1.8-2.4) Allergies Coded Allergies: No Known Allergies (Unverified , 03/15/17) Medications Current Inpatient Medications Medications (Trade) Dose Ordered Sig/Jonathan Route Start Time Stop Time Status Last Admin Dose Admin Acetaminophen (Tylenol Tab) 650 mg Q4H PRN PO 2/1/18 14:15 05/10/17 14:14 Tamsulosin HCl (Flomax Cap) 0.8 mg HS PO 03/15/17 21:00 05/10/17 20:59 04/13/17 21:25 0.8 MG Miscellaneous Information (Order Awaiting Action) 1 ea QS N/A 03/15/17 16:00 05/10/17 15:59 Pantoprazole Sodium (Protonix Tab) 40 mg QAM PO 03/16/17 09:00 05/10/17 08:59 04/14/17 08:06 40 MG Ranitidine HCl (zANTac TAB) 300 mg HS PO 03/15/17 21:00 05/10/17 20:59 04/13/17 21:31 300 MG Polyethylene (Miralax Powder Packet) 17 gm DAILY PRN PO 03/15/17 15:00 05/10/17 14:59 Docusate Sodium (coLACE CAP) 100 mg BID PO 03/15/17 21:00 05/10/17 20:59 04/14/17 08:06 100 MG Bisacodyl (Dulcolax Supp) 10 mg DAILY PRN NC 03/15/17 15:00 05/10/17 14:59 Heparin Sodium (Porcine) (Heparin Sq 5000 Unit/0.5ml) 5,000 unit Q12 SQ 03/15/17 21:00 05/10/17 20:59 04/14/17 08:13 5,000 UNIT Nystatin (Mycostatin Powder) 1 appln BID EXT 03/15/17 21:00 04/14/17 20:59 04/14/17 09:12 1 APPLN Calcium Carbonate (Tums Chew Tab) 2,000 mg QID PO 03/16/17 17:00 05/10/17 16:59 04/14/17 08:07 2,000 MG Calcium Carbonate (oS-Randy 500 TAB) 1,250 mg QID PO 03/18/17 09:00 05/10/17 08:59 04/14/17 08:06 1,250 MG Miscellaneous (Tap Water Enema) 1 ea Q2D PRN NC 03/18/17 13:30 05/10/17 13:29 Heparin Sodium (Porcine) (Heparin 10 Unit/ ml 5 ml Flush) 5 ml PRN PRN FLUSH 03/18/17 15:30 05/10/17 15:29 04/06/17 05:39 5 ML Heparin Sodium (Porcine) (Heparin 10 Unit/ ml 5 ml Flush) 5 ml PRN PRN FLUSH 03/29/17 11:00 04/28/17 10:59 Hydrochlorothiazide (Hydrochlorothiazide Tab) 25 mg QAM PO 03/30/17 13:00 04/29/17 12:59 04/14/17 08:08 25 MG Benzonatate (Tessalon Perles Cap) 100 mg TID PRN PO 04/08/17 10:45 05/08/17 10:44 04/10/17 20:37 100 MG Calcitriol (Rocaltrol Cap) 4 mcg QAM PO 04/11/17 08:00 05/11/17 07:59 04/14/17 08:07 4 MCG Ergocalciferol (Vitamin D Cap) 50,000 interunit DAILY PO 04/11/17 08:00 04/23/17 07:59 04/14/17 08:08 50,000 INTERUNIT Potassium/ Phosphorus/Sodium (Phospha 250 Neutral 155-852-130 Mg) 2 tab QID PO 04/10/17 17:00 05/10/17 16:59 04/14/17 08:08 2 TAB Magnesium Oxide (Mag-Ox Tab) 400 mg BID PO 04/13/17 09:00 04/16/17 08:59 04/14/17 08:06 400 MG Calcium Gluconate 86631 mg/Sodium Chloride 700 ml @ 70 mls/hr Q10H IV 04/13/17 11:00 05/13/17 10:59 04/14/17 08:06 70 MLS/HR Impression (1) Hypocalcemia (2) Prostate cancer (3) Hypertension Mr. 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 He developed severe hypocalcemia following treatment with Denosumab. Renal function is normal based on eGFR. EKG documented new QTc prolongation which improved with treatment. 25OH D deficiency documented on presentation. This was treated with ergocalciferol 86058 IU and cholecalciferol. Calcitriol is being provided. Aggressive replacement with PO and IV calcium continues. The patient has associated hypomagnesemia. This is being treated with IV magnesium sulfate. Based on review of the literature, medium time to calcium jonny is 21 days and median time to correction of hypocalcemia is 71 days. The patient continues to require IV calcium gluconate. [facility] was called and spoke w/ Therese ([facility] clinical pharmacy [phone]). She confirmed 21 day half life of Xgeva. No reversal agent available. They have recommended Ca infusion. They will file adverse event report w/ FDA Recommendations -- Serum calcium is now trending up following increase in IV Ca gluconate to 2 g / hr. --decrease infusion to 1 gram/hour --discontinue hydrochlorothiazide as blood pressure has been relatively soft -- Continue Calcitriol 4 mcg daily -- Continue OsCal 2500 QID -- Continue TUMS 2 grams TID -- Continue Ergocalciferol 50,000 units daily x 12 doses (day #2) -- Vitamin D 35 (04/10) Will follow
[2017-04-14] MEDS: TAMSULOSIN HCL 0.4 MG CAP PO SCH (21:06)
[2017-04-14] MEDS: RANITIDINE HCL 150 MG TAB PO SCH (21:07)
--- NOTE | 2017-04-14 23:14 | Progress Note ---
Subjective Date of Service: Apr 14, 2017. Subjective Pt evaluation today including: conversation w/ patient, physical exam, chart review, lab review, review of studies, review of inpatient medication list Voiding: no voiding problems, no incontinence Pt was seen and examined by me. Pt is doing just fine, denies any overnight events. Has been active, walks around the hallway eating well. Calcium improved to 10.0 on IV and oral calcium and calcitriol. Blood pressure has been relatively soft but asymptomatic. Problem List Medical Problems: (1) Dehydration Status: Acute (2) Failure to thrive Status: Acute (3) Hypomagnesemia Status: Acute (4) UTI (urinary tract infection) Status: Acute (5) Vomiting Status: Acute Review of Systems All Other Systems: Reviewed and Negative Objective Vital Signs Date Time Temp Pulse Resp B/P (MAP) Pulse Ox O2 Delivery O2 Flow Rate FiO2 04/14/17 20:00 Room Air 04/14/17 19:54 36.5 96 20 124/68 (86) 96 Room Air 04/14/17 16:00 Room Air 04/14/17 15:34 36.6 100 18 110/64 (79) 98 Room Air 04/14/17 12:00 Room Air 04/14/17 11:50 124/70 (88) 04/14/17 11:37 36.8 86 18 87/46 (60) 95 Room Air 04/14/17 09:00 Room Air 04/14/17 08:30 108/68 (81) 04/14/17 07:37 36.6 78 16 99/52 (68) 92 Room Air 04/14/17 04:00 Room Air 04/14/17 03:00 36.7 86 20 97/57 (70) 96 Room Air 04/14/17 00:00 Room Air 04/13/17 23:52 36.7 83 20 136/77 (96) 96 Room Air Physical Exam Comments: General Appearance: WD/WN, no apparent distress, + thin Eyes: normal inspection, PERRL, EOMI, sclerae normal ENT: normal ENT inspection, hearing grossly normal, pharynx normal Neck: supple, no adenopathy, thyroid normal, no JVD, no carotid bruits, trachea midline Respiratory/Chest: chest non-tender, normal breath sounds, no respiratory distress, no accessory muscle use, + decreased breath sounds Cardiovascular: regular rate, rhythm, no edema, no gallop, no JVD, no murmur Abdomen: normal bowel sounds, non tender, soft, no organomegaly, no pulsatile mass Extremities: normal range of motion, non-tender, normal inspection, no pedal edema, no calf tenderness, normal capillary refill, pelvis stable Neurologic/Psychiatric: salad counter attendant II-XII nml as tested, no motor/sensory deficits, alert, normal mood/affect, oriented x 3 Skin: normal color, warm/dry, no rash Lymphatic: no adenopathy Laboratory Results Last 24 Hours Test 04/14/17 00:55 Sodium Level 137 mmol/L Potassium Level 5.0 mmol/L Chloride Level 106 mmol/L Carbon Dioxide Level 21 mmol/L Anion Gap 10.0 mmol/L Blood Urea Nitrogen 13 mg/dl Creatinine 1.13 mg/dl Est Creatinine Clear Calc Drug Dose 43.1 ml/min Estimated GFR () 69.3 Estimated GFR (Non- 59.8 BUN/Creatinine Ratio 11.9 Random Glucose 90 mg/dl Calcium Level 9.1 mg/dl Ionized Calcium 1.17 mmol/l Phosphorus Level 2.2 mg/dl Magnesium Level 1.9 mg/dl Assessment and Plan 81 year old man with a history of prostate cancer and osteoblastic mets admitted because of severe hypocalcemia associated with with fatigue and found to have severe hypocalcemia secondary to his Denosumab (03/02/2017) has been on IV calcium and oral calcium therapy, still unable to increase his levels. Today's calcium is 10.0, going up. Filling And Packing Supervisor on the case, made the follow changes: -- decrease infusion to 1 gram/hour -- discontinue hydrochlorothiazide as blood pressure has been relatively soft -- Continue Calcitriol 4 mcg daily -- Continue OsCal 2500 QID -- Continue TUMS 2 grams TID -- Continue Ergocalciferol 50,000 units daily x 12 doses (day #2) per report: hypocalcemia related to Denosumab. Median time to correction ~ 21 days, pt has been here 30 days Continued [facility] stay due to: multiple IV medications needed Discharge planning: uncertain Continued [facility] stay due to: multiple IV medications needed Discharge planning: uncertain
[2017-04-15] MEDS: SODIUM CHLORIDE 0.9% IV SCH ×2 (03:00→21:25)
[2017-04-15] MEDS: CALCIUM GLUCONATE IV SCH ×2 (03:00→21:25)
[2017-04-15 04:08] VITALS: BP 104/50; PULSE 83; TEMP 36.9; O2SAT 96
[2017-04-15 07:28] VITALS: BP 100/41; PULSE 81; TEMP 36.9; O2SAT 95
[2017-04-15] MEDS: DOCUSATE SODIUM 100 MG CAP PO SCH ×2 (08:57→21:05)
[2017-04-15] MEDS: CALCITRIOL 0.25 MCG CAP PO SCH (08:57)
[2017-04-15] MEDS: PANTOprazole SOD 40 MG TAB PO SCH (08:57)
[2017-04-15] MEDS: CALCIUM CARBONATE 1250MG TAB PO SCH ×4 (08:57→21:03)
[2017-04-15] MEDS: POT PHOSPHATE MONOBASIC W/ SOD TAB PO SCH ×4 (08:58→21:24)
[2017-04-15] MEDS: MAGNESIUM OXIDE 400 MG TAB PO SCH ×2 (08:58→21:03)
[2017-04-15] MEDS: ERGOCALCIFEROL 50,000 INTER.UNIT CAP PO SCH (08:58)
[2017-04-15] MEDS: CALCIUM CARBONATE 500 MG CHEWABLE PO SCH ×4 (08:58→21:04)
[2017-04-15] MEDS: HEPARIN SOD 5000 UNIT/0.5 ML CARP SQ SCH ×2 (09:02→21:10)
[2017-04-15 09:34] LABS: CALCIUM 8.1 mg/dl (8.5-10.1); CREATININE 1.14 mg/dl (0.60-1.40); PHOSPHORUS 2.2 mg/dl (2.5-4.9); POTASSIUM 4.3 mmol/L (3.5-5.1)
[2017-04-15] MEDS ORDERED: SODIUM CHLORIDE 0.9% IV SCH (11:15)
[2017-04-15] MEDS ORDERED: CALCIUM GLUCONATE IV SCH (11:15)
--- NOTE | 2017-04-15 11:20 | Progress Note ---
Subjective Date of Service: Apr 15, 2017. Subjective Pt evaluation today including: conversation w/ patient, lab review, review of inpatient medication list Voiding: no voiding problems patient is seen and examined. No pain reported in any upper and lower extremity muscles, no spasm reported, no bone pain reported.eating and drink just fine. Problem List Medical Problems: (1) Dehydration Status: Acute (2) Failure to thrive Status: Acute (3) Hypomagnesemia Status: Acute (4) UTI (urinary tract infection) Status: Acute (5) Vomiting Status: Acute Review of Systems All Other Systems: Reviewed and Negative Medications Last Resulted CBC 04/08/17 05:03 Last Resulted BMP 04/15/17 08:44 Objective Vital Signs Date Time Temp Pulse Resp B/P (MAP) Pulse Ox O2 Delivery O2 Flow Rate FiO2 04/15/17 08:00 Room Air 04/15/17 07:28 36.9 81 18 100/41 (60) 95 Room Air 04/15/17 04:08 36.9 83 18 104/50 (68) 96 Room Air 04/15/17 04:00 Room Air 04/15/17 00:00 Room Air 04/14/17 23:18 37.0 100 20 111/67 (82) 95 Room Air 04/14/17 20:00 Room Air 04/14/17 19:54 36.5 96 20 124/68 (86) 96 Room Air 04/14/17 16:00 Room Air 04/14/17 15:34 36.6 100 18 110/64 (79) 98 Room Air 04/14/17 12:00 Room Air 04/14/17 11:50 124/70 (88) 04/14/17 11:37 36.8 86 18 87/46 (60) 95 Room Air Physical Exam General Appearance: no apparent distress Respiratory/Chest: lungs clear, normal breath sounds Cardiovascular: regular rate, rhythm, no murmur Abdomen: soft Extremities: normal range of motion, non-tender, no pedal edema Neurologic/Psychiatric: alert, normal mood/affect, oriented x 3 Skin: warm/dry, no rash Lymphatic: no adenopathy Laboratory Results Last 24 Hours Test 04/15/17 08:44 Sodium Level 137 mmol/L Potassium Level 4.3 mmol/L Chloride Level 106 mmol/L Carbon Dioxide Level 24 mmol/L Anion Gap 8.0 mmol/L Blood Urea Nitrogen 17 mg/dl Creatinine 1.14 mg/dl Est Creatinine Clear Calc Drug Dose 42.7 ml/min Estimated GFR () 68.5 Estimated GFR (Non- 59.1 BUN/Creatinine Ratio 15.1 Random Glucose 168 mg/dl Calcium Level 8.1 mg/dl Phosphorus Level 2.2 mg/dl Magnesium Level 1.8 mg/dl Assessment and Plan 81 year old man with a history of prostate cancer and osteoblastic mets admitted because of severe hypocalcemia associated with with fatigue and found to have severe hypocalcemia secondary to his Denosumab (03/02/2017) has been on IV calcium and oral calcium therapy, still unable to increase his levels. Today's calcium is 8.1, going down. Jet Dyeing Machine Tender on the case, no changes made today -- Continue infusion to 1 gram/hour -- discontinue hydrochlorothiazide as blood pressure has been relatively soft -- Continue Calcitriol 4 mcg daily -- Continue OsCal 2500 QID -- Continue TUMS 2 grams TID -- Continue Ergocalciferol 50,000 units daily x 12 doses (day #2) per report: hypocalcemia related to Denosumab. Median time to correction ~ 21 days, pt has been here 30 days Continued [facility] stay due to: multiple IV medications needed Discharge planning: uncertain Continued [facility] stay due to: multiple IV medications needed Discharge planning: uncertain
[2017-04-15 11:41] VITALS: BP 107/59; PULSE 88; TEMP 36.8; O2SAT 97
--- NOTE | 2017-04-15 11:54 | Nephrology Progress Note ---
Nephrology Progress Note Date of Service Apr 15, 2017. Chief Complaint Follow-up for hypocalcemia Subjective David was seen and examined in his room this morning. He has been otherwise feeling fine, denies any overnight events. Has been active, walks around the hallway eating well. Calcium dropped again to 9.0 after calcium gluconate drip was decrease yesterday but still within normal range. Blood pressure has been relatively soft but asymptomatic. Review of Systems A complete review of systems was performed. Pertinent positives are noted above. All other systems are negative. Vital Signs Last 8 Hrs Date Time Temp Pulse Resp B/P (MAP) Pulse Ox O2 Delivery O2 Flow Rate FiO2 04/15/17 08:00 Room Air 04/15/17 07:28 36.9 81 18 100/41 (60) 95 Room Air 04/15/17 04:08 36.9 83 18 104/50 (68) 96 Room Air 04/15/17 04:00 Room Air Last Recorded Weight Weight (Kilograms): 62.700 Physical Exam GENERAL:Elderly male , AAA x 3, pleasant, healthy-appearing, not in any distress. NECK: Supple, no JVD. RESPIRATORY: Normal breathing efforts, no accessory muscle use, clear to auscultation bilaterally, no wheezes or rales. CARDIOVASCULAR: S1, S2 normal, rate rhythm regular. EXTREMITY: No lower extremity edema NEURO: speech fluent. 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 04/15/17 08:44 Test 04/15/17 08:44 Anion Gap 8.0 mmol/L (3-11) Est Creatinine Clear Calc Drug Dose 42.7 ml/min Estimated GFR () 68.5 Estimated GFR (Non- 59.1 BUN/Creatinine Ratio 15.1 (10-20) Calcium Level 8.1 mg/dl (8.5-10.1) Phosphorus Level 2.2 mg/dl (2.5-4.9) Magnesium Level 1.8 mg/dl (1.8-2.4) Allergies Coded Allergies: No Known Allergies (Unverified , 03/15/17) Medications Current Inpatient Medications Medications (Trade) Dose Ordered Sig/Jonathan Route Start Time Stop Time Status Last Admin Dose Admin Acetaminophen (Tylenol Tab) 650 mg Q4H PRN PO 03/15/17 14:15 05/10/17 14:14 Tamsulosin HCl (Flomax Cap) 0.8 mg HS PO 03/15/17 21:00 05/10/17 20:59 04/14/17 21:06 0.8 MG Miscellaneous Information (Order Awaiting Action) 1 ea QS N/A 03/15/17 16:00 05/10/17 15:59 Pantoprazole Sodium (Protonix Tab) 40 mg QAM PO 03/16/17 09:00 05/10/17 08:59 04/15/17 08:57 40 MG Ranitidine HCl (zANTac TAB) 300 mg HS PO 03/15/17 21:00 05/10/17 20:59 04/14/17 21:07 300 MG Polyethylene (Miralax Powder Packet) 17 gm DAILY PRN PO 03/15/17 15:00 05/10/17 14:59 Docusate Sodium (coLACE CAP) 100 mg BID PO 03/15/17 21:00 05/10/17 20:59 04/15/17 08:57 100 MG Bisacodyl (Dulcolax Supp) 10 mg DAILY PRN AL 03/15/17 15:00 05/10/17 14:59 Heparin Sodium (Porcine) (Heparin Sq 5000 Unit/0.5ml) 5,000 unit Q12 SQ 03/15/17 21:00 05/10/17 20:59 04/15/17 09:02 5,000 UNIT Calcium Carbonate (Tums Chew Tab) 2,000 mg QID PO 03/16/17 17:00 05/10/17 16:59 04/15/17 08:58 2,000 MG Calcium Carbonate (oS-Randy 500 TAB) 1,250 mg QID PO 03/18/17 09:00 05/10/17 08:59 04/15/17 08:57 1,250 MG Miscellaneous (Tap Water Enema) 1 ea Q2D PRN AL 03/18/17 13:30 05/10/17 13:29 Heparin Sodium (Porcine) (Heparin 10 Unit/ ml 5 ml Flush) 5 ml PRN PRN FLUSH 03/18/17 15:30 05/10/17 15:29 04/06/17 05:39 5 ML Heparin Sodium (Porcine) (Heparin 10 Unit/ ml 5 ml Flush) 5 ml PRN PRN FLUSH 03/29/17 11:00 04/28/17 10:59 Benzonatate (Tessalon Perles Cap) 100 mg TID PRN PO 04/08/17 10:45 05/08/17 10:44 04/10/17 20:37 100 MG Calcitriol (Rocaltrol Cap) 4 mcg QAM PO 04/11/17 08:00 05/11/17 07:59 04/15/17 08:57 4 MCG Ergocalciferol (Vitamin D Cap) 50,000 interunit DAILY PO 04/11/17 08:00 04/23/17 07:59 04/15/17 08:58 50,000 INTERUNIT Potassium/ Phosphorus/Sodium (Phospha 250 Neutral 155-852-130 Mg) 2 tab QID PO 04/10/17 17:00 05/10/17 16:59 04/15/17 08:58 2 TAB Magnesium Oxide (Mag-Ox Tab) 400 mg BID PO 04/13/17 09:00 04/16/17 08:59 04/15/17 08:58 400 MG Calcium Gluconate 83023 mg/Sodium Chloride 700 ml @ 35 mls/hr Q10H IV 04/13/17 11:00 05/13/17 10:59 04/14/17 17:11 35 MLS/HR Impression (1) Hypocalcemia (2) Prostate cancer (3) Hypertension Mr. 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 He developed severe hypocalcemia following treatment with Denosumab. Renal function is normal based on eGFR. EKG documented new QTc prolongation which improved with treatment. 25OH D deficiency documented on presentation. This was treated with ergocalciferol 19101 IU and cholecalciferol. Calcitriol is being provided. Aggressive replacement with PO and IV calcium continues. The patient has associated hypomagnesemia. This is being treated with IV magnesium sulfate. Based on review of the literature, medium time to calcium jonny is 21 days and median time to correction of hypocalcemia is 71 days. The patient continues to require IV calcium gluconate. [facility] was called and spoke w/ Therese ([facility] clinical pharmacy [phone]). She confirmed 21 day half life of Xgeva. No reversal agent available. They have recommended Ca infusion. They will file adverse event report w/ FDA Recommendations -- continue IV Ca gluconate at 1 g / hr, check ionized calcium in afternoon if stay within normal range will continue on 1 gram. -- Continue Calcitriol 4 mcg daily -- Continue OsCal 2500 QID -- Continue TUMS 2 grams TID -- Continue Ergocalciferol 50,000 units daily x 12 doses (day #2) -- Vitamin D 35 (04/10) Will follow
[2017-04-15 15:29] VITALS: BP 102/57; PULSE 87; TEMP 37; O2SAT 95
[2017-04-15 20:12] VITALS: BP 130/60; PULSE 97; TEMP 36.9; O2SAT 97
[2017-04-15] MEDS: TAMSULOSIN HCL 0.4 MG CAP PO SCH (21:04)
[2017-04-15] MEDS: RANITIDINE HCL 150 MG TAB PO SCH (21:04)
[2017-04-16] VITALS (8 sets, daily range): BP systolic 100–115; BP diastolic 50–66; PULSE 75–93; TEMP 36.5–36.9; O2SAT 94–96
[2017-04-16 06:18] LABS: CALCIUM 8.3 mg/dl (8.5-10.1); CREATININE 1.02 mg/dl (0.60-1.40); POTASSIUM 4.6 mmol/L (3.5-5.1)
[2017-04-16] MEDS: POT PHOSPHATE MONOBASIC W/ SOD TAB PO SCH ×4 (08:18→20:32)
[2017-04-16] MEDS: SODIUM CHLORIDE 0.9% IV SCH ×2 (08:18→18:16)
[2017-04-16] MEDS: CALCIUM GLUCONATE IV SCH ×2 (08:18→18:16)
[2017-04-16] MEDS: CALCIUM CARBONATE 1250MG TAB PO SCH ×4 (08:19→20:32)
[2017-04-16] MEDS: DOCUSATE SODIUM 100 MG CAP PO SCH ×2 (08:19→20:32)
[2017-04-16] MEDS: CALCIUM CARBONATE 500 MG CHEWABLE PO SCH ×4 (08:19→20:32)
[2017-04-16] MEDS: PANTOprazole SOD 40 MG TAB PO SCH (08:20)
[2017-04-16] MEDS: ERGOCALCIFEROL 50,000 INTER.UNIT CAP PO SCH (08:21)
[2017-04-16] MEDS: CALCITRIOL 0.25 MCG CAP PO SCH (08:21)
[2017-04-16] MEDS: HEPARIN SOD 5000 UNIT/0.5 ML CARP SQ SCH ×2 (08:25→20:36)
--- NOTE | 2017-04-16 10:10 | Nephrology Progress Note ---
Nephrology Progress Note Date of Service Apr 16, 2017. Chief Complaint Follow-up for hypocalcemia Subjective David was seen and examined in his room this morning. He has been otherwise feeling fine, denies any overnight events. Has been active, walks around the hallway eating well. Calcium dropped again to <8, after calcium gluconate drip was decreased to 1 gram/hour, resume dose at 2 grams/hour last night and calcium now improved. Blood pressure has been relatively soft but asymptomatic. Review of Systems A complete review of systems was performed. Pertinent positives are noted above. All other systems are negative. Vital Signs Last 8 Hrs Date Time Temp Pulse Resp B/P (MAP) Pulse Ox O2 Delivery O2 Flow Rate FiO2 04/16/17 08:07 36.8 75 18 100/50 (67) 94 Room Air 04/16/17 04:00 Room Air 04/16/17 02:33 36.5 83 19 101/53 (69) 96 Room Air Last Recorded Weight Weight (Kilograms): 63.300 Physical Exam GENERAL:Elderly male , AAA x 3, pleasant, healthy-appearing, not in any distress. NECK: Supple, no JVD. RESPIRATORY: Normal breathing efforts, no accessory muscle use, clear to auscultation bilaterally, no wheezes or rales. CARDIOVASCULAR: S1, S2 normal, rate rhythm regular. EXTREMITY: No lower extremity edema NEURO: speech fluent. 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 04/15/17 08:44 04/16/17 05:04 Test 04/15/17 08:44 04/15/17 15:27 04/15/17 20:00 04/16/17 05:04 Anion Gap 8.0 mmol/L (3-11) 6.0 mmol/L (3-11) Est Creatinine Clear Calc Drug Dose 42.7 ml/min 47.7 ml/min Estimated GFR () 68.5 78.4 Estimated GFR (Non- 59.1 67.7 BUN/Creatinine Ratio 15.1 (10-20) 16.5 (10-20) Calcium Level 8.1 mg/dl (8.5-10.1) 7.5 mg/dl (8.5-10.1) 8.3 mg/dl (8.5-10.1) Phosphorus Level 2.2 mg/dl (2.5-4.9) Magnesium Level 1.8 mg/dl (1.8-2.4) Ionized Calcium 0.91 mmol/l (1.12-1.32) Allergies Coded Allergies: No Known Allergies (Unverified , 03/15/17) Medications Current Inpatient Medications Medications (Trade) Dose Ordered Sig/Jonathan Route Start Time Stop Time Status Last Admin Dose Admin Acetaminophen (Tylenol Tab) 650 mg Q4H PRN PO 03/15/17 14:15 05/10/17 14:14 Tamsulosin HCl (Flomax Cap) 0.8 mg HS PO 03/15/17 21:00 05/10/17 20:59 04/15/17 21:04 0.8 MG Miscellaneous Information (Order Awaiting Action) 1 ea QS N/A 03/15/17 16:00 05/10/17 15:59 Pantoprazole Sodium (Protonix Tab) 40 mg QAM PO 03/16/17 09:00 05/10/17 08:59 04/16/17 08:20 40 MG Ranitidine HCl (zANTac TAB) 300 mg HS PO 03/15/17 21:00 05/10/17 20:59 04/15/17 21:04 300 MG Polyethylene (Miralax Powder Packet) 17 gm DAILY PRN PO 03/15/17 15:00 05/10/17 14:59 Docusate Sodium (coLACE CAP) 100 mg BID PO 03/15/17 21:00 05/10/17 20:59 04/16/17 08:19 100 MG Bisacodyl (Dulcolax Supp) 10 mg DAILY PRN OR 03/15/17 15:00 05/10/17 14:59 Heparin Sodium (Porcine) (Heparin Sq 5000 Unit/0.5ml) 5,000 unit Q12 SQ 03/15/17 21:00 05/10/17 20:59 04/16/17 08:25 5,000 UNIT Calcium Carbonate (Tums Chew Tab) 2,000 mg QID PO 03/16/17 17:00 05/10/17 16:59 04/16/17 08:19 2,000 MG Calcium Carbonate (oS-Randy 500 TAB) 1,250 mg QID PO 03/18/17 09:00 05/10/17 08:59 04/16/17 08:19 1,250 MG Miscellaneous (Tap Water Enema) 1 ea Q2D PRN OR 03/18/17 13:30 05/10/17 13:29 Heparin Sodium (Porcine) (Heparin 10 Unit/ ml 5 ml Flush) 5 ml PRN PRN FLUSH 03/18/17 15:30 05/10/17 15:29 04/06/17 05:39 5 ML Heparin Sodium (Porcine) (Heparin 10 Unit/ ml 5 ml Flush) 5 ml PRN PRN FLUSH 03/29/17 11:00 04/28/17 10:59 Benzonatate (Tessalon Perles Cap) 100 mg TID PRN PO 04/08/17 10:45 05/08/17 10:44 04/10/17 20:37 100 MG Calcitriol (Rocaltrol Cap) 4 mcg QAM PO 04/11/17 08:00 05/11/17 07:59 04/16/17 08:21 4 MCG Ergocalciferol (Vitamin D Cap) 50,000 interunit DAILY PO 04/11/17 08:00 04/23/17 07:59 04/16/17 08:21 50,000 INTERUNIT Potassium/ Phosphorus/Sodium (Phospha 250 Neutral 155-852-130 Mg) 2 tab QID PO 04/10/17 17:00 05/10/17 16:59 04/16/17 08:18 2 TAB Magnesium Oxide (Mag-Ox Tab) 400 mg BID PO 04/13/17 09:00 04/16/17 08:59 04/15/17 21:03 400 MG Calcium Gluconate 91625 mg/Sodium Chloride 700 ml @ 70 mls/hr Q10H IV 04/15/17 21:30 05/15/17 21:29 04/16/17 08:18 70 MLS/HR Impression (1) Hypocalcemia (2) Prostate cancer (3) Hypertension Mr. 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 He developed severe hypocalcemia following treatment with Denosumab. Renal function is normal based on eGFR. EKG documented new QTc prolongation which improved with treatment. 25OH D deficiency documented on presentation. This was treated with ergocalciferol 87172 IU and cholecalciferol. Calcitriol is being provided. Aggressive replacement with PO and IV calcium continues. The patient has associated hypomagnesemia. This is being treated with IV magnesium sulfate. Based on review of the literature, medium time to calcium jonny is 21 days and median time to correction of hypocalcemia is 71 days. The patient continues to require IV calcium gluconate. [facility] was called and spoke w/ Therese ([facility] clinical pharmacy [phone]). She confirmed 21 day half life of Xgeva. No reversal agent available. They have recommended Ca infusion. They will file adverse event report w/ FDA Recommendations -- continue IV Ca gluconate at 2 g / hr -- Continue Calcitriol 4 mcg daily -- Continue OsCal 2500 QID -- Continue TUMS 2 grams TID -- Continue Ergocalciferol 50,000 units daily x 12 doses -- Vitamin D 35 (04/10) Will follow
--- NOTE | 2017-04-16 14:26 | Progress Note ---
Subjective Date of Service: Apr 16, 2017. Subjective Pt evaluation today including: conversation w/ patient, physical exam, lab review, review of inpatient medication list Pain: no pain PO Intake: eating well Voiding: no voiding problems patient doing well, walking laps in the hallway, eating well no pain no complaints appreciate note from nephrology reviewed labs, Ca is 8.3 Problem List Medical Problems: (1) Dehydration Status: Acute (2) Failure to thrive Status: Acute (3) Hypomagnesemia Status: Acute (4) UTI (urinary tract infection) Status: Acute (5) Vomiting Status: Acute Review of Systems All Other Systems: Reviewed and Negative Medications Current Inpatient Medications Medications (Trade) Dose Ordered Sig/Jonathan Route Start Time Stop Time Status Last Admin Dose Admin Acetaminophen (Tylenol Tab) 650 mg Q4H PRN PO 03/15/17 14:15 05/10/17 14:14 Tamsulosin HCl (Flomax Cap) 0.8 mg HS PO 03/15/17 21:00 05/10/17 20:59 04/15/17 21:04 0.8 MG Miscellaneous Information (Order Awaiting Action) 1 ea QS N/A 03/15/17 16:00 05/10/17 15:59 Pantoprazole Sodium (Protonix Tab) 40 mg QAM PO 03/16/17 09:00 05/10/17 08:59 04/16/17 08:20 40 MG Ranitidine HCl (zANTac TAB) 300 mg HS PO 03/15/17 21:00 05/10/17 20:59 04/15/17 21:04 300 MG Polyethylene (Miralax Powder Packet) 17 gm DAILY PRN PO 03/15/17 15:00 05/10/17 14:59 Docusate Sodium (coLACE CAP) 100 mg BID PO 03/15/17 21:00 05/10/17 20:59 04/16/17 08:19 100 MG Bisacodyl (Dulcolax Supp) 10 mg DAILY PRN NC 03/15/17 15:00 05/10/17 14:59 Heparin Sodium (Porcine) (Heparin Sq 5000 Unit/0.5ml) 5,000 unit Q12 SQ 03/15/17 21:00 05/10/17 20:59 04/16/17 08:25 5,000 UNIT Calcium Carbonate (Tums Chew Tab) 2,000 mg QID PO 03/16/17 17:00 05/10/17 16:59 04/16/17 12:40 2,000 MG Calcium Carbonate (oS-Randy 500 TAB) 1,250 mg QID PO 03/18/17 09:00 05/10/17 08:59 04/16/17 12:40 1,250 MG Miscellaneous (Tap Water Enema) 1 ea Q2D PRN NC 03/18/17 13:30 05/10/17 13:29 Heparin Sodium (Porcine) (Heparin 10 Unit/ ml 5 ml Flush) 5 ml PRN PRN FLUSH 03/18/17 15:30 05/10/17 15:29 04/06/17 05:39 5 ML Heparin Sodium (Porcine) (Heparin 10 Unit/ ml 5 ml Flush) 5 ml PRN PRN FLUSH 03/29/17 11:00 04/28/17 10:59 Benzonatate (Tessalon Perles Cap) 100 mg TID PRN PO 04/08/17 10:45 05/08/17 10:44 04/10/17 20:37 100 MG Calcitriol (Rocaltrol Cap) 4 mcg QAM PO 04/11/17 08:00 05/11/17 07:59 04/16/17 08:21 4 MCG Ergocalciferol (Vitamin D Cap) 50,000 interunit DAILY PO 04/11/17 08:00 04/23/17 07:59 04/16/17 08:21 50,000 INTERUNIT Potassium/ Phosphorus/Sodium (Phospha 250 Neutral 155-852-130 Mg) 2 tab QID PO 04/10/17 17:00 05/10/17 16:59 04/16/17 12:40 2 TAB Calcium Gluconate 91698 mg/Sodium Chloride 700 ml @ 70 mls/hr Q10H IV 04/15/17 21:30 05/15/17 21:29 04/16/17 08:18 70 MLS/HR Objective Vital Signs Date Time Temp Pulse Resp B/P (MAP) Pulse Ox O2 Delivery O2 Flow Rate FiO2 04/16/17 12:00 Room Air 04/16/17 11:58 36.9 93 18 109/54 (72) 95 Room Air 04/16/17 08:07 36.8 75 18 100/50 (67) 94 Room Air 04/16/17 08:00 Room Air 04/16/17 04:00 Room Air 04/16/17 02:33 36.5 83 19 101/53 (69) 96 Room Air 04/16/17 00:02 36.8 88 17 109/66 (80) 95 Room Air 04/16/17 00:00 Room Air 04/15/17 20:14 Room Air 04/15/17 20:12 36.9 97 20 130/60 (83) 97 Room Air 04/15/17 16:00 Room Air 04/15/17 15:29 37.0 87 18 102/57 (72) 95 Room Air Physical Exam General Appearance: WD/WN, no apparent distress Eyes: normal inspection, EOMI, sclerae normal ENT: normal ENT inspection, hearing grossly normal, pharynx normal Neck: supple, no adenopathy, no JVD, trachea midline Respiratory/Chest: chest non-tender, lungs clear, normal breath sounds, no respiratory distress, no accessory muscle use Cardiovascular: regular rate, rhythm, no edema, no gallop, no JVD, no murmur Abdomen: normal bowel sounds, non tender, soft, no organomegaly Extremities: normal range of motion, non-tender, normal inspection, no pedal edema, no calf tenderness Neurologic/Psychiatric: application development team lead II-XII nml as tested, no motor/sensory deficits, alert, normal mood/affect, oriented x 3 Skin: normal color, warm/dry, no rash Lymphatic: no adenopathy Laboratory Results Last 24 Hours Test 04/15/17 15:27 04/15/17 20:00 04/16/17 05:04 Ionized Calcium 0.91 mmol/l Calcium Level 7.5 mg/dl 8.3 mg/dl Sodium Level 138 mmol/L Potassium Level 4.6 mmol/L Chloride Level 107 mmol/L Carbon Dioxide Level 25 mmol/L Anion Gap 6.0 mmol/L Blood Urea Nitrogen 17 mg/dl Creatinine 1.02 mg/dl Est Creatinine Clear Calc Drug Dose 47.7 ml/min Estimated GFR () 78.4 Estimated GFR (Non- 67.7 BUN/Creatinine Ratio 16.5 Random Glucose 95 mg/dl Assessment and Plan 81 year old man with a history of prostate cancer and osteoblastic mets admitted because of severe hypocalcemia associated with with fatigue and found to have severe hypocalcemia secondary to his Denosumab (03/02/2017) has been on IV calcium and oral calcium therapy, still unable to increase his levels. calcium today is 8.3 -- Continue infusion to 1 gram/hour -- discontinue hydrochlorothiazide as blood pressure has been relatively soft -- Continue Calcitriol 4 mcg daily -- Continue OsCal 2500 QID -- Continue TUMS 2 grams TID -- Continue Ergocalciferol 50,000 units daily x 12 doses (day #3) per report: hypocalcemia related to Denosumab. Median time to correction ~ 21 days, pt has been here 31 days Continued [facility] stay due to: multiple IV medications needed Discharge planning: uncertain
--- NOTE | 2017-04-16 15:38 | DIAGNOSTIC IMAGING REPORT ---
CHEST ONE VIEW PORTABLE HISTORY: 81 years-old Male repositioning of central line repositioned central line. History of skeletal metastatic disease COMPARISON: Chest radiograph 03/15/2017 TECHNIQUE: Portable AP view of the chest FINDINGS: Cardiac silhouette is again mildly enlarged. Atherosclerosis of the aorta. Left-sided PICC is noted with distal tip overlying the medial aspect of the aortic arch, likely within the region of the left brachiocephalic vein. Ill-defined linear lucency projects of the left lung apex. Minimal subsegmental opacities suggest atelectasis. Progressive blastic metastasis noted about the right humerus. IMPRESSION: 1. Left-sided PICC distal tip overlies the medial aspect of the aortic arch, likely within the region of the left brachiocephalic vein. 2. Ill-defined linear lucency projects over the left lung apex suggesting skinfold with trace left pneumothorax thought to be less likely. This could be confirmed with follow-up apical lordotic view of the chest. 3. Progressive blastic skeletal metastasis. The above report was generated using voice recognition software. It may contain grammatical, syntax or spelling errors. Electronically signed by: Berlin Tobar M.D. 04/16/2017 3:37 PM Dictated Date/Time: 04/16/2017 3:33 PM
[2017-04-16] MEDS: RANITIDINE HCL 150 MG TAB PO SCH (20:32)
[2017-04-16] MEDS: TAMSULOSIN HCL 0.4 MG CAP PO SCH (20:32)
[2017-04-17] VITALS (7 sets, daily range): BP systolic 94–125; BP diastolic 47–69; PULSE 60–95; TEMP 36.3–36.9; O2SAT 94–98
[2017-04-17] MEDS: SODIUM CHLORIDE 0.9% IV SCH ×2 (04:09→13:38)
[2017-04-17] MEDS: CALCIUM GLUCONATE IV SCH ×2 (04:09→13:38)
[2017-04-17 06:16] LABS: CALCIUM 8.6 mg/dl (8.5-10.1); CREATININE 0.98 mg/dl (0.60-1.40); POTASSIUM 4.8 mmol/L (3.5-5.1)
[2017-04-17] MEDS: POT PHOSPHATE MONOBASIC W/ SOD TAB PO SCH ×4 (08:12→20:36)
[2017-04-17] MEDS: PANTOprazole SOD 40 MG TAB PO SCH (08:12)
[2017-04-17] MEDS: DOCUSATE SODIUM 100 MG CAP PO SCH ×2 (08:12→21:44)
[2017-04-17] MEDS: CALCIUM CARBONATE 1250MG TAB PO SCH ×4 (08:12→20:36)
[2017-04-17] MEDS: CALCIUM CARBONATE 500 MG CHEWABLE PO SCH ×4 (08:13→20:37)
[2017-04-17] MEDS: ERGOCALCIFEROL 50,000 INTER.UNIT CAP PO SCH (08:13)
[2017-04-17] MEDS: CALCITRIOL 0.25 MCG CAP PO SCH (08:14)
[2017-04-17] MEDS: HEPARIN SOD 5000 UNIT/0.5 ML CARP SQ SCH ×2 (08:16→20:39)
--- NOTE | 2017-04-17 11:41 | Nephrology Progress Note ---
Nephrology Progress Note Date of Service Apr 17, 2017. Chief Complaint Follow-up for hypocalcemia Subjective David was seen and examined in his room this morning, overall feeling well. Has been walking around the hallways. Calcium improved to above 9. Review of Systems A complete review of systems was performed. Pertinent positives are noted above. All other systems are negative. Vital Signs Last 8 Hrs Date Time Temp Pulse Resp B/P (MAP) Pulse Ox O2 Delivery O2 Flow Rate FiO2 04/17/17 07:49 36.8 60 18 107/52 (70) 97 Room Air 04/17/17 04:00 Room Air 04/17/17 04:00 36.7 75 16 107/58 (74) 94 Room Air Last Recorded Weight Weight (Kilograms): 62.700 Physical Exam GENERAL:Elderly male , AAA x 3, pleasant, healthy-appearing, not in any distress. NECK: Supple, no JVD. RESPIRATORY: Normal breathing efforts, no accessory muscle use, clear to auscultation bilaterally, no wheezes or rales. CARDIOVASCULAR: S1, S2 normal, rate rhythm regular. EXTREMITY: No lower extremity edema NEURO: speech fluent. 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 04/17/17 05:15 Test 04/17/17 05:15 Anion Gap 8.0 mmol/L (3-11) Est Creatinine Clear Calc Drug Dose 49.7 ml/min Estimated GFR () 82.3 Estimated GFR (Non- 71.0 BUN/Creatinine Ratio 17.4 (10-20) Calcium Level 8.6 mg/dl (8.5-10.1) Allergies Coded Allergies: No Known Allergies (Unverified , 03/15/17) Medications Current Inpatient Medications Medications (Trade) Dose Ordered Sig/Jonathan Route Start Time Stop Time Status Last Admin Dose Admin Acetaminophen (Tylenol Tab) 650 mg Q4H PRN PO 03/15/17 14:15 05/10/17 14:14 Tamsulosin HCl (Flomax Cap) 0.8 mg HS PO 03/15/17 21:00 05/10/17 20:59 04/16/17 20:32 0.8 MG Miscellaneous Information (Order Awaiting Action) 1 ea QS N/A 03/15/17 16:00 3/29/18 15:59 Pantoprazole Sodium (Protonix Tab) 40 mg QAM PO 03/16/17 09:00 05/10/17 08:59 04/17/17 08:12 40 MG Ranitidine HCl (zANTac TAB) 300 mg HS PO 03/15/17 21:00 05/10/17 20:59 04/16/17 20:32 300 MG Polyethylene (Miralax Powder Packet) 17 gm DAILY PRN PO 03/15/17 15:00 05/10/17 14:59 Docusate Sodium (coLACE CAP) 100 mg BID PO 03/15/17 21:00 05/10/17 20:59 04/17/17 08:12 100 MG Bisacodyl (Dulcolax Supp) 10 mg DAILY PRN [place] 03/15/17 15:00 05/10/17 14:59 Heparin Sodium (Porcine) (Heparin Sq 5000 Unit/0.5ml) 5,000 unit Q12 SQ 03/15/17 21:00 05/10/17 20:59 04/17/17 08:16 5,000 UNIT Calcium Carbonate (Tums Chew Tab) 2,000 mg QID PO 03/16/17 17:00 05/10/17 16:59 04/17/17 08:13 2,000 MG Calcium Carbonate (oS-Randy 500 TAB) 1,250 mg QID PO 03/18/17 09:00 05/10/17 08:59 04/17/17 08:12 1,250 MG Miscellaneous (Tap Water Enema) 1 ea Q2D PRN [place] 03/18/17 13:30 05/10/17 13:29 Heparin Sodium (Porcine) (Heparin 10 Unit/ ml 5 ml Flush) 5 ml PRN PRN FLUSH 03/18/17 15:30 05/10/17 15:29 04/06/17 05:39 5 ML Heparin Sodium (Porcine) (Heparin 10 Unit/ ml 5 ml Flush) 5 ml PRN PRN FLUSH 03/29/17 11:00 04/28/17 10:59 Benzonatate (Tessalon Perles Cap) 100 mg TID PRN PO 04/08/17 10:45 05/08/17 10:44 04/10/17 20:37 100 MG Calcitriol (Rocaltrol Cap) 4 mcg QAM PO 04/11/17 08:00 05/11/17 07:59 04/17/17 08:14 4 MCG Ergocalciferol (Vitamin D Cap) 50,000 interunit DAILY PO 04/11/17 08:00 04/23/17 07:59 04/17/17 08:13 50,000 INTERUNIT Potassium/ Phosphorus/Sodium (Phospha 250 Neutral 155-852-130 Mg) 2 tab QID PO 04/10/17 17:00 05/10/17 16:59 04/17/17 08:12 2 TAB Calcium Gluconate 14050 mg/Sodium Chloride 700 ml @ 70 mls/hr Q10H IV 04/15/17 21:30 05/15/17 21:29 04/17/17 04:09 70 MLS/HR Impression (1) Hypocalcemia (2) Prostate cancer (3) Hypertension Mr. 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 He developed severe hypocalcemia following treatment with Denosumab. Renal function is normal based on eGFR. EKG documented new QTc prolongation which improved with treatment. 25OH D deficiency documented on presentation. This was treated with ergocalciferol 89403 IU and cholecalciferol. Calcitriol is being provided. Aggressive replacement with PO and IV calcium continues. The patient has associated hypomagnesemia. This is being treated with IV magnesium sulfate. Based on review of the literature, medium time to calcium jonny is 21 days and median time to correction of hypocalcemia is 71 days. The patient continues to require IV calcium gluconate. [facility] was called and spoke w/ Therese ([facility] clinical pharmacy [phone]). She confirmed 21 day half life of Xgeva. No reversal agent available. They have recommended Ca infusion. They will file adverse event report w/ FDA Recommendations -- continue IV Ca gluconate at 2 g / hr, will wait for calcium to be at least above 10 before making any further change. -- Continue Calcitriol 4 mcg daily -- Continue OsCal 2500 QID -- Continue TUMS 2 grams TID -- Continue Ergocalciferol 50,000 units daily x 12 doses -- Vitamin D 35 (04/10) Will follow
--- NOTE | 2017-04-17 16:03 | Progress Note ---
Subjective Date of Service: Apr 17, 2017. Subjective Pt evaluation today including: conversation w/ patient, physical exam, lab review, review of inpatient medication list Pain: no pain PO Intake: adequate Voiding: no voiding problems doing well, ambulating in smith no complaints reviewed labs, Ca is 8.6 Problem List Medical Problems: (1) Dehydration Status: Acute (2) Failure to thrive Status: Acute (3) Hypomagnesemia Status: Acute (4) UTI (urinary tract infection) Status: Acute (5) Vomiting Status: Acute Review of Systems All Other Systems: Reviewed and Negative Medications Current Inpatient Medications Medications (Trade) Dose Ordered Sig/Jonathan Route Start Time Stop Time Status Last Admin Dose Admin Acetaminophen (Tylenol Tab) 650 mg Q4H PRN PO 03/15/17 14:15 05/10/17 14:14 Tamsulosin HCl (Flomax Cap) 0.8 mg HS PO 03/15/17 21:00 05/10/17 20:59 04/16/17 20:32 0.8 MG Miscellaneous Information (Order Awaiting Action) 1 ea QS N/A 03/15/17 16:00 05/10/17 15:59 Pantoprazole Sodium (Protonix Tab) 40 mg QAM PO 03/16/17 09:00 05/10/17 08:59 04/17/17 08:12 40 MG Ranitidine HCl (zANTac TAB) 300 mg HS PO 03/15/17 21:00 05/10/17 20:59 04/16/17 20:32 300 MG Polyethylene (Miralax Powder Packet) 17 gm DAILY PRN PO 03/15/17 15:00 05/10/17 14:59 Docusate Sodium (coLACE CAP) 100 mg BID PO 03/15/17 21:00 05/10/17 20:59 04/17/17 08:12 100 MG Bisacodyl (Dulcolax Supp) 10 mg DAILY PRN [place] 03/15/17 15:00 05/10/17 14:59 Heparin Sodium (Porcine) (Heparin Sq 5000 Unit/0.5ml) 5,000 unit Q12 SQ 03/15/17 21:00 05/10/17 20:59 04/17/17 08:16 5,000 UNIT Calcium Carbonate (Tums Chew Tab) 2,000 mg QID PO 03/16/17 17:00 05/10/17 16:59 04/17/17 12:33 2,000 MG Calcium Carbonate (oS-Randy 500 TAB) 1,250 mg QID PO 03/18/17 09:00 05/10/17 08:59 04/17/17 12:33 1,250 MG Miscellaneous (Tap Water Enema) 1 ea Q2D PRN IN 03/18/17 13:30 05/10/17 13:29 Heparin Sodium (Porcine) (Heparin 10 Unit/ ml 5 ml Flush) 5 ml PRN PRN FLUSH 03/18/17 15:30 05/10/17 15:29 04/06/17 05:39 5 ML Heparin Sodium (Porcine) (Heparin 10 Unit/ ml 5 ml Flush) 5 ml PRN PRN FLUSH 03/29/17 11:00 04/28/17 10:59 Benzonatate (Tessalon Perles Cap) 100 mg TID PRN PO 04/08/17 10:45 05/08/17 10:44 04/10/17 20:37 100 MG Calcitriol (Rocaltrol Cap) 4 mcg QAM PO 04/11/17 08:00 05/11/17 07:59 04/17/17 08:14 4 MCG Ergocalciferol (Vitamin D Cap) 50,000 interunit DAILY PO 04/11/17 08:00 04/23/17 07:59 04/17/17 08:13 50,000 INTERUNIT Potassium/ Phosphorus/Sodium (Phospha 250 Neutral 155-852-130 Mg) 2 tab QID PO 04/10/17 17:00 05/10/17 16:59 04/17/17 12:33 2 TAB Calcium Gluconate 93755 mg/Sodium Chloride 700 ml @ 70 mls/hr Q10H IV 04/15/17 21:30 05/15/17 21:29 04/17/17 13:38 70 MLS/HR Objective Vital Signs Date Time Temp Pulse Resp B/P (MAP) Pulse Ox O2 Delivery O2 Flow Rate FiO2 04/17/17 15:45 36.4 81 18 111/66 (81) 96 Room Air 04/17/17 12:00 Room Air 04/17/17 11:55 36.8 75 18 95/53 (67) 96 Room Air 04/17/17 08:00 Room Air 04/17/17 07:49 36.8 60 18 107/52 (70) 97 Room Air 04/17/17 04:00 Room Air 04/17/17 04:00 36.7 75 16 107/58 (74) 94 Room Air 04/17/17 00:01 36.8 90 20 125/67 (86) 96 Room Air 04/17/17 00:00 Room Air 04/16/17 20:43 96 Room Air 04/16/17 20:16 36.8 85 19 115/60 (78) 96 Room Air Physical Exam General Appearance: WD/WN, no apparent distress Eyes: normal inspection, EOMI, sclerae normal ENT: normal ENT inspection, hearing grossly normal, pharynx normal Neck: supple, no adenopathy, no JVD, trachea midline Respiratory/Chest: chest non-tender, lungs clear, normal breath sounds, no respiratory distress, no accessory muscle use Cardiovascular: regular rate, rhythm, no edema, no gallop, no JVD, no murmur Abdomen: normal bowel sounds, non tender, soft, no organomegaly Extremities: normal range of motion, non-tender, normal inspection, no pedal edema, no calf tenderness, pelvis stable Neurologic/Psychiatric: set up inspector II-XII nml as tested, no motor/sensory deficits, alert, normal mood/affect, oriented x 3 Laboratory Results Last 24 Hours Test 04/17/17 05:15 Sodium Level 139 mmol/L Potassium Level 4.8 mmol/L Chloride Level 108 mmol/L Carbon Dioxide Level 23 mmol/L Anion Gap 8.0 mmol/L Blood Urea Nitrogen 17 mg/dl Creatinine 0.98 mg/dl Est Creatinine Clear Calc Drug Dose 49.7 ml/min Estimated GFR () 82.3 Estimated GFR (Non- 71.0 BUN/Creatinine Ratio 17.4 Random Glucose 91 mg/dl Calcium Level 8.6 mg/dl Assessment and Plan 81 year old man with a history of prostate cancer and osteoblastic mets admitted because of severe hypocalcemia associated with with fatigue and found to have severe hypocalcemia secondary to his Denosumab (03/02/2017) Hypocalcemia calcium today is 8.6 -- Continue infusion to 1 gram/hour -- discontinue hydrochlorothiazide as blood pressure has been relatively soft -- Continue Calcitriol 4 mcg daily -- Continue OsCal 2500 QID -- Continue TUMS 2 grams TID -- Continue Ergocalciferol 50,000 units daily x 12 doses (day #4) per report: hypocalcemia related to Denosumab. Median time to correction ~ 21 days, pt has been here 32 days Continued [facility] stay due to: multiple IV medications needed Discharge planning: uncertain
[2017-04-17] MEDS: TAMSULOSIN HCL 0.4 MG CAP PO SCH (20:37)
[2017-04-17] MEDS: RANITIDINE HCL 150 MG TAB PO SCH (21:44)
[2017-04-18] MEDS: CALCIUM GLUCONATE IV SCH ×3 (00:08→19:24)
[2017-04-18] MEDS: SODIUM CHLORIDE 0.9% IV SCH ×3 (00:08→19:24)
[2017-04-18 04:15] VITALS: BP 102/56; PULSE 81; TEMP 36.6; O2SAT 94
[2017-04-18 05:49] LABS: CALCIUM 8.7 mg/dl (8.5-10.1); CREATININE 1.01 mg/dl (0.60-1.40); POTASSIUM 4.9 mmol/L (3.5-5.1)
[2017-04-18 07:32] VITALS: BP 116/52; PULSE 78; TEMP 36.7; O2SAT 96
[2017-04-18] MEDS: DOCUSATE SODIUM 100 MG CAP PO SCH ×2 (07:43→21:13)
[2017-04-18] MEDS: POT PHOSPHATE MONOBASIC W/ SOD TAB PO SCH ×4 (07:43→21:09)
[2017-04-18] MEDS: ERGOCALCIFEROL 50,000 INTER.UNIT CAP PO SCH (07:43)
[2017-04-18] MEDS: CALCIUM CARBONATE 500 MG CHEWABLE PO SCH ×4 (07:43→21:12)
[2017-04-18] MEDS: CALCIUM CARBONATE 1250MG TAB PO SCH ×4 (07:44→21:11)
[2017-04-18] MEDS: HEPARIN SOD 5000 UNIT/0.5 ML CARP SQ SCH ×2 (07:47→21:17)
[2017-04-18] MEDS: CALCITRIOL 0.25 MCG CAP PO SCH (08:21)
[2017-04-18] MEDS: PANTOprazole SOD 40 MG TAB PO SCH (08:21)
--- NOTE | 2017-04-18 10:43 | Nephrology Progress Note ---
Nephrology Progress Note Date of Service Apr 18, 2017. Chief Complaint Follow-up for hypocalcemia Subjective David was seen this morning. He has been otherwise feeling fine, has been walking around the hallways. Eating well. Calcium improved to 9.4, corrected. Review of Systems A complete review of systems was performed. Pertinent positives are noted above. All other systems are negative. Vital Signs Last 8 Hrs Date Time Temp Pulse Resp B/P (MAP) Pulse Ox O2 Delivery O2 Flow Rate FiO2 04/18/17 07:32 36.7 78 18 116/52 (73) 96 Room Air 04/18/17 04:15 36.6 81 18 102/56 (71) 94 Room Air 04/18/17 04:00 Room Air Last Recorded Weight Weight (Kilograms): 62.700 Physical Exam GENERAL:Elderly male , AAA x 3, pleasant, healthy-appearing, not in any distress. NECK: Supple, no JVD. RESPIRATORY: Normal breathing efforts, no accessory muscle use, clear to auscultation bilaterally, no wheezes or rales. CARDIOVASCULAR: S1, S2 normal, rate rhythm regular. EXTREMITY: No lower extremity edema NEURO: speech fluent. PSYCHIATRY: Normal mood and judgmen Social History Drug Use: none Marital Status: Housing Status: lives with family (lives with son) 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 04/18/17 05:10 Test 04/18/17 05:10 Anion Gap 8.0 mmol/L (3-11) Est Creatinine Clear Calc Drug Dose 48.2 ml/min Estimated GFR () 79.4 Estimated GFR (Non- 68.5 BUN/Creatinine Ratio 17.9 (10-20) Calcium Level 8.7 mg/dl (8.5-10.1) Allergies Coded Allergies: No Known Allergies (Unverified , 03/15/17) Medications Current Inpatient Medications Medications (Trade) Dose Ordered Sig/Jonathan Route Start Time Stop Time Status Last Admin Dose Admin Acetaminophen (Tylenol Tab) 650 mg Q4H PRN PO 03/15/17 14:15 05/10/17 14:14 Tamsulosin HCl (Flomax Cap) 0.8 mg HS PO 03/15/17 21:00 05/10/17 20:59 04/17/17 20:37 0.8 MG Miscellaneous Information (Order Awaiting Action) 1 ea QS N/A 03/15/17 16:00 05/10/17 15:59 Pantoprazole Sodium (Protonix Tab) 40 mg QAM PO 03/16/17 09:00 05/10/17 08:59 04/18/17 08:21 40 MG Ranitidine HCl (zANTac TAB) 300 mg HS PO 03/15/17 21:00 05/10/17 20:59 04/17/17 21:44 300 MG Polyethylene (Miralax Powder Packet) 17 gm DAILY PRN PO 03/15/17 15:00 05/10/17 14:59 Docusate Sodium (coLACE CAP) 100 mg BID PO 03/15/17 21:00 05/10/17 20:59 04/18/17 07:43 100 MG Bisacodyl (Dulcolax Supp) 10 mg DAILY PRN [place] 03/15/17 15:00 05/10/17 14:59 Heparin Sodium (Porcine) (Heparin Sq 5000 Unit/0.5ml) 5,000 unit Q12 SQ 03/15/17 21:00 05/10/17 20:59 04/18/17 07:47 5,000 UNIT Calcium Carbonate (Tums Chew Tab) 2,000 mg QID PO 03/16/17 17:00 05/10/17 16:59 04/18/17 07:43 2,000 MG Calcium Carbonate (oS-Randy 500 TAB) 1,250 mg QID PO 03/18/17 09:00 05/10/17 08:59 04/18/17 07:44 1,250 MG Miscellaneous (Tap Water Enema) 1 ea Q2D PRN [place] 03/18/17 13:30 05/10/17 13:29 Heparin Sodium (Porcine) (Heparin 10 Unit/ ml 5 ml Flush) 5 ml PRN PRN FLUSH 03/18/17 15:30 05/10/17 15:29 04/06/17 05:39 5 ML Heparin Sodium (Porcine) (Heparin 10 Unit/ ml 5 ml Flush) 5 ml PRN PRN FLUSH 03/29/17 11:00 04/28/17 10:59 Benzonatate (Tessalon Perles Cap) 100 mg TID PRN PO 04/08/17 10:45 05/08/17 10:44 04/10/17 20:37 100 MG Calcitriol (Rocaltrol Cap) 4 mcg QAM PO 04/11/17 08:00 05/11/17 07:59 04/18/17 08:21 4 MCG Ergocalciferol (Vitamin D Cap) 50,000 interunit DAILY PO 04/11/17 08:00 04/23/17 07:59 04/18/17 07:43 50,000 INTERUNIT Potassium/ Phosphorus/Sodium (Phospha 250 Neutral 155-852-130 Mg) 2 tab QID PO 04/10/17 17:00 05/10/17 16:59 04/18/17 07:43 2 TAB Calcium Gluconate 58917 mg/Sodium Chloride 700 ml @ 70 mls/hr Q10H IV 04/15/17 21:30 05/15/17 21:29 04/18/17 00:08 70 MLS/HR Impression (1) Hypocalcemia (2) Prostate cancer (3) Hypertension Mr. 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 He developed severe hypocalcemia following treatment with Denosumab. Renal function is normal based on eGFR. EKG documented new QTc prolongation which improved with treatment. 25OH D deficiency documented on presentation. This was treated with ergocalciferol 27820 IU and cholecalciferol. Calcitriol is being provided. Aggressive replacement with PO and IV calcium continues. The patient has associated hypomagnesemia. This is being treated with IV magnesium sulfate. Based on review of the literature, medium time to calcium jonny is 21 days and median time to correction of hypocalcemia is 71 days. The patient continues to require IV calcium gluconate. [facility] was called and spoke w/ Therese ([facility] clinical pharmacy [phone]). She confirmed 21 day half life of Xgeva. No reversal agent available. They have recommended Ca infusion. They will file adverse event report w/ FDA Recommendations -- continue IV Ca gluconate at 2 g / hr -- Continue Calcitriol 4 mcg daily -- Continue OsCal 2500 QID -- Continue TUMS 2 grams TID -- Continue Ergocalciferol 50,000 units daily x 12 doses -- Vitamin D 35 (04/10) Will follow
[2017-04-18 10:58] VITALS: BP 107/52; PULSE 86; TEMP 36.9; O2SAT 97
[2017-04-18 14:50] VITALS: BP 139/69; PULSE 84; TEMP 36.9; O2SAT 97
--- NOTE | 2017-04-18 14:56 | Progress Note ---
Subjective Date of Service: Apr 18, 2017. Subjective Pt evaluation today including: conversation w/ patient, physical exam, lab review, conversation w/ [employer] sales consultant, review of inpatient medication list Pain: no pain PO Intake: adequate Voiding: no voiding problems no changes, doing well shaving today walking 45 laps a day around the RN station discussed with Dr. Byrne, continue treatment Problem List Medical Problems: (1) Dehydration Status: Acute (2) Failure to thrive Status: Acute (3) Hypomagnesemia Status: Acute (4) UTI (urinary tract infection) Status: Acute (5) Vomiting Status: Acute Review of Systems All Other Systems: Reviewed and Negative Medications Current Inpatient Medications Medications (Trade) Dose Ordered Sig/Jonathan Route Start Time Stop Time Status Last Admin Dose Admin Acetaminophen (Tylenol Tab) 650 mg Q4H PRN PO 03/15/17 14:15 05/10/17 14:14 Tamsulosin HCl (Flomax Cap) 0.8 mg HS PO 03/15/17 21:00 05/10/17 20:59 04/17/17 20:37 0.8 MG Miscellaneous Information (Order Awaiting Action) 1 ea QS N/A 03/15/17 16:00 05/10/17 15:59 Pantoprazole Sodium (Protonix Tab) 40 mg QAM PO 03/16/17 09:00 05/10/17 08:59 04/18/17 08:21 40 MG Ranitidine HCl (zANTac TAB) 300 mg HS PO 03/15/17 21:00 05/10/17 20:59 04/17/17 21:44 300 MG Polyethylene (Miralax Powder Packet) 17 gm DAILY PRN PO 03/15/17 15:00 05/10/17 14:59 Docusate Sodium (coLACE CAP) 100 mg BID PO 03/15/17 21:00 05/10/17 20:59 04/18/17 07:43 100 MG Bisacodyl (Dulcolax Supp) 10 mg DAILY PRN [place] 03/15/17 15:00 05/10/17 14:59 Heparin Sodium (Porcine) (Heparin Sq 5000 Unit/0.5ml) 5,000 unit Q12 SQ 03/15/17 21:00 05/10/17 20:59 04/18/17 07:47 5,000 UNIT Calcium Carbonate (Tums Chew Tab) 2,000 mg QID PO 03/16/17 17:00 05/10/17 16:59 04/18/17 13:23 2,000 MG Calcium Carbonate (oS-Randy 500 TAB) 1,250 mg QID PO 03/18/17 09:00 05/10/17 08:59 04/18/17 13:23 1,250 MG Miscellaneous (Tap Water Enema) 1 ea Q2D PRN [place] 03/18/17 13:30 05/10/17 13:29 Heparin Sodium (Porcine) (Heparin 10 Unit/ ml 5 ml Flush) 5 ml PRN PRN FLUSH 03/18/17 15:30 05/10/17 15:29 04/06/17 05:39 5 ML Heparin Sodium (Porcine) (Heparin 10 Unit/ ml 5 ml Flush) 5 ml PRN PRN FLUSH 03/29/17 11:00 04/28/17 10:59 Benzonatate (Tessalon Perles Cap) 100 mg TID PRN PO 04/08/17 10:45 05/08/17 10:44 04/10/17 20:37 100 MG Calcitriol (Rocaltrol Cap) 4 mcg QAM PO 04/11/17 08:00 05/11/17 07:59 04/18/17 08:21 4 MCG Ergocalciferol (Vitamin D Cap) 50,000 interunit DAILY PO 04/11/17 08:00 04/23/17 07:59 04/18/17 07:43 50,000 INTERUNIT Potassium/ Phosphorus/Sodium (Phospha 250 Neutral 155-852-130 Mg) 2 tab QID PO 04/10/17 17:00 05/10/17 16:59 04/18/17 13:23 2 TAB Calcium Gluconate 36972 mg/Sodium Chloride 700 ml @ 70 mls/hr Q10H IV 04/15/17 21:30 05/15/17 21:29 04/18/17 09:26 70 MLS/HR Objective Vital Signs Date Time Temp Pulse Resp B/P (MAP) Pulse Ox O2 Delivery O2 Flow Rate FiO2 04/18/17 12:00 Room Air 04/18/17 10:58 36.9 86 18 107/52 (70) 97 Room Air 04/18/17 08:00 Room Air 04/18/17 07:32 36.7 78 18 116/52 (73) 96 Room Air 04/18/17 04:15 36.6 81 18 102/56 (71) 94 Room Air 04/18/17 04:00 Room Air 04/18/17 00:00 Room Air 04/17/17 23:43 36.9 77 18 94/54 (67) 95 Room Air 106/47 (66) 04/17/17 20:00 Room Air 04/17/17 19:38 36.3 95 18 125/69 (87) 98 Room Air 04/17/17 16:00 Room Air 04/17/17 15:45 36.4 81 18 111/66 (81) 96 Room Air Physical Exam General Appearance: WD/WN, no apparent distress Eyes: normal inspection, EOMI, sclerae normal ENT: normal ENT inspection, hearing grossly normal, pharynx normal Neck: supple, no adenopathy, no JVD, trachea midline Respiratory/Chest: chest non-tender, lungs clear, normal breath sounds, no respiratory distress, no accessory muscle use Cardiovascular: regular rate, rhythm, no edema, no gallop, no JVD, no murmur Abdomen: normal bowel sounds, non tender, soft, no organomegaly Extremities: normal range of motion, non-tender, normal inspection, no pedal edema, no calf tenderness Neurologic/Psychiatric: statue maker II-XII nml as tested, no motor/sensory deficits, alert, normal mood/affect, oriented x 3 Laboratory Results Last 24 Hours Test 04/18/17 05:10 Sodium Level 138 mmol/L Potassium Level 4.9 mmol/L Chloride Level 108 mmol/L Carbon Dioxide Level 22 mmol/L Anion Gap 8.0 mmol/L Blood Urea Nitrogen 18 mg/dl Creatinine 1.01 mg/dl Est Creatinine Clear Calc Drug Dose 48.2 ml/min Estimated GFR () 79.4 Estimated GFR (Non- 68.5 BUN/Creatinine Ratio 17.9 Random Glucose 90 mg/dl Calcium Level 8.7 mg/dl Assessment and Plan 81 year old man with a history of prostate cancer and osteoblastic mets admitted because of severe hypocalcemia associated with with fatigue and found to have severe hypocalcemia secondary to his Denosumab (03/02/2017) Hypocalcemia calcium today is 8.7 -- Continue infusion to 1 gram/hour -- discontinue hydrochlorothiazide as blood pressure has been relatively soft -- Continue Calcitriol 4 mcg daily -- Continue OsCal 2500 QID -- Continue TUMS 2 grams TID -- Continue Ergocalciferol 50,000 units daily x 12 doses (day #5) per report: hypocalcemia related to Denosumab. Median time to correction ~ 21 days, pt has been here 33 days Continued [facility] stay due to: multiple IV medications needed Discharge planning: uncertain
[2017-04-18 19:25] VITALS: BP 103/58; PULSE 87; TEMP 36.7; O2SAT 95
[2017-04-18] MEDS: RANITIDINE HCL 150 MG TAB PO SCH (21:13)
[2017-04-18] MEDS: TAMSULOSIN HCL 0.4 MG CAP PO SCH (21:14)
[2017-04-18 23:03] VITALS: BP 115/53; PULSE 83; TEMP 36.8; O2SAT 95
[2017-04-19 04:43] VITALS: BP 104/55; PULSE 76; TEMP 36.5; O2SAT 95
[2017-04-19] MEDS: CALCIUM GLUCONATE IV SCH ×2 (05:37→17:03)
[2017-04-19] MEDS: SODIUM CHLORIDE 0.9% IV SCH ×2 (05:37→17:03)
[2017-04-19 06:38] LABS: CALCIUM 9.2 mg/dl (8.5-10.1); CREATININE 0.99 mg/dl (0.60-1.40)
[2017-04-19 07:28] VITALS: BP 103/50; PULSE 75; TEMP 36.6; O2SAT 96
[2017-04-19] MEDS: CALCIUM CARBONATE 1250MG TAB PO SCH ×4 (07:40→20:48)
[2017-04-19] MEDS: CALCIUM CARBONATE 500 MG CHEWABLE PO SCH ×4 (07:40→20:50)
[2017-04-19] MEDS: POT PHOSPHATE MONOBASIC W/ SOD TAB PO SCH ×4 (07:41→20:48)
[2017-04-19] MEDS: CALCITRIOL 0.25 MCG CAP PO SCH (07:41)
[2017-04-19] MEDS: DOCUSATE SODIUM 100 MG CAP PO SCH ×2 (07:42→20:47)
[2017-04-19] MEDS: PANTOprazole SOD 40 MG TAB PO SCH (07:42)
[2017-04-19] MEDS: ERGOCALCIFEROL 50,000 INTER.UNIT CAP PO SCH (07:42)
[2017-04-19] MEDS: HEPARIN SOD 5000 UNIT/0.5 ML CARP SQ SCH ×2 (07:43→20:53)
--- NOTE | 2017-04-19 09:59 | Nephrology Progress Note ---
Nephrology Progress Note Date of Service Apr 19, 2017. Chief Complaint Follow-up for hypocalcemia Subjective David was seen this morning. He has been otherwise feeling fine, has been walking around the hallways. Eating well. Calcium improved to >10, corrected. Review of Systems A complete review of systems was performed. Pertinent positives are noted above. All other systems are negative. Vital Signs Last 8 Hrs Date Time Temp Pulse Resp B/P (MAP) Pulse Ox O2 Delivery O2 Flow Rate FiO2 04/19/17 07:28 36.6 75 18 103/50 (67) 96 Room Air 04/19/17 04:43 36.5 76 18 104/55 (71) 95 Room Air 04/19/17 04:00 Room Air Last Recorded Weight Weight (Kilograms): 63.900 Physical Exam GENERAL:Elderly male , AAA x 3, pleasant, healthy-appearing, not in any distress. NECK: Supple, no JVD. RESPIRATORY: Normal breathing efforts, no accessory muscle use, clear to auscultation bilaterally, no wheezes or rales. CARDIOVASCULAR: S1, S2 normal, rate rhythm regular. EXTREMITY: No lower extremity edema NEURO: speech fluent. PSYCHIATRY: Normal mood and judgmen Social History Drug Use: none Marital Status: Housing Status: lives with family (lives with son) 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 04/19/17 05:46 Test 04/19/17 05:46 Anion Gap 7.0 mmol/L (3-11) Est Creatinine Clear Calc Drug Dose 49.2 ml/min Estimated GFR () 81.3 Estimated GFR (Non- 70.1 BUN/Creatinine Ratio 18.8 (10-20) Calcium Level 9.2 mg/dl (8.5-10.1) Allergies Coded Allergies: No Known Allergies (Unverified , 03/15/17) Medications Current Inpatient Medications Medications (Trade) Dose Ordered Sig/Jonathan Route Start Time Stop Time Status Last Admin Dose Admin Acetaminophen (Tylenol Tab) 650 mg Q4H PRN PO 03/15/17 14:15 05/10/17 14:14 Tamsulosin HCl (Flomax Cap) 0.8 mg HS PO 03/15/17 21:00 05/10/17 20:59 04/18/17 21:14 0.8 MG Miscellaneous Information (Order Awaiting Action) 1 ea QS N/A 03/15/17 16:00 05/10/17 15:59 Pantoprazole Sodium (Protonix Tab) 40 mg QAM PO 03/16/17 09:00 05/10/17 08:59 04/19/17 07:42 40 MG Ranitidine HCl (zANTac TAB) 300 mg HS PO 03/15/17 21:00 05/10/17 20:59 04/18/17 21:13 300 MG Polyethylene (Miralax Powder Packet) 17 gm DAILY PRN PO 03/15/17 15:00 05/10/17 14:59 Docusate Sodium (coLACE CAP) 100 mg BID PO 03/15/17 21:00 05/10/17 20:59 04/19/17 07:42 100 MG Bisacodyl (Dulcolax Supp) 10 mg DAILY PRN NV 03/15/17 15:00 05/10/17 14:59 Heparin Sodium (Porcine) (Heparin Sq 5000 Unit/0.5ml) 5,000 unit Q12 SQ 03/15/17 21:00 05/10/17 20:59 04/19/17 07:43 5,000 UNIT Calcium Carbonate (Tums Chew Tab) 2,000 mg QID PO 03/16/17 17:00 05/10/17 16:59 04/19/17 07:40 2,000 MG Calcium Carbonate (oS-Randy 500 TAB) 1,250 mg QID PO 03/18/17 09:00 05/10/17 08:59 04/19/17 07:40 1,250 MG Miscellaneous (Tap Water Enema) 1 ea Q2D PRN NV 03/18/17 13:30 05/10/17 13:29 Heparin Sodium (Porcine) (Heparin 10 Unit/ ml 5 ml Flush) 5 ml PRN PRN FLUSH 03/18/17 15:30 05/10/17 15:29 04/06/17 05:39 5 ML Heparin Sodium (Porcine) (Heparin 10 Unit/ ml 5 ml Flush) 5 ml PRN PRN FLUSH 03/29/17 11:00 04/28/17 10:59 Benzonatate (Tessalon Perles Cap) 100 mg TID PRN PO 04/08/17 10:45 05/08/17 10:44 04/10/17 20:37 100 MG Calcitriol (Rocaltrol Cap) 4 mcg QAM PO 04/11/17 08:00 05/11/17 07:59 04/19/17 07:41 4 MCG Ergocalciferol (Vitamin D Cap) 50,000 interunit DAILY PO 04/11/17 08:00 04/23/17 07:59 04/19/17 07:42 50,000 INTERUNIT Potassium/ Phosphorus/Sodium (Phospha 250 Neutral 155-852-130 Mg) 2 tab QID PO 04/10/17 17:00 05/10/17 16:59 04/19/17 07:41 2 TAB Calcium Gluconate 48198 mg/Sodium Chloride 700 ml @ 70 mls/hr Q10H IV 04/15/17 21:30 05/15/17 21:29 04/19/17 05:37 70 MLS/HR Impression (1) Hypocalcemia (2) Prostate cancer (3) Hypertension Mr. 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 He developed severe hypocalcemia following treatment with Denosumab. Renal function is normal based on eGFR. EKG documented new QTc prolongation which improved with treatment. 25OH D deficiency documented on presentation. This was treated with ergocalciferol 61824 IU and cholecalciferol. Calcitriol is being provided. Aggressive replacement with PO and IV calcium continues. The patient has associated hypomagnesemia. This is being treated with IV magnesium sulfate. Based on review of the literature, medium time to calcium jonny is 21 days and median time to correction of hypocalcemia is 71 days. The patient continues to require IV calcium gluconate. [facility] was called and spoke w/ Therese ([facility] clinical pharmacy [phone]). She confirmed 21 day half life of Xgeva. No reversal agent available. They have recommended Ca infusion. They will file adverse event report w/ FDA Recommendations -- continue IV Ca gluconate at 2 g / hr, no change for now -- Continue Calcitriol 4 mcg daily -- Continue OsCal 2500 QID -- Continue TUMS 2 grams TID -- Continue Ergocalciferol 50,000 units daily x 12 doses -- Vitamin D 35 (04/10) Will follow
[2017-04-19 11:24] VITALS: BP 90/53; PULSE 77; TEMP 36.8; O2SAT 96
--- NOTE | 2017-04-19 14:29 | Progress Note ---
Subjective Date of Service: Apr 19, 2017. Subjective Pt evaluation today including: conversation w/ patient, physical exam, lab review, review of inpatient medication list Pain: no pain PO Intake: adequate Voiding: bey catheter in place Ca up to 9 today no complaints Problem List Medical Problems: (1) Dehydration Status: Acute (2) Failure to thrive Status: Acute (3) Hypomagnesemia Status: Acute (4) UTI (urinary tract infection) Status: Acute (5) Vomiting Status: Acute Review of Systems All Other Systems: Reviewed and Negative Medications Current Inpatient Medications Medications (Trade) Dose Ordered Sig/Jonathan Route Start Time Stop Time Status Last Admin Dose Admin Acetaminophen (Tylenol Tab) 650 mg Q4H PRN PO 03/15/17 14:15 05/10/17 14:14 Tamsulosin HCl (Flomax Cap) 0.8 mg HS PO 03/15/17 21:00 05/10/17 20:59 04/18/17 21:14 0.8 MG Miscellaneous Information (Order Awaiting Action) 1 ea QS N/A 03/15/17 16:00 05/10/17 15:59 Pantoprazole Sodium (Protonix Tab) 40 mg QAM PO 03/16/17 09:00 05/10/17 08:59 04/19/17 07:42 40 MG Ranitidine HCl (zANTac TAB) 300 mg HS PO 03/15/17 21:00 05/10/17 20:59 04/18/17 21:13 300 MG Polyethylene (Miralax Powder Packet) 17 gm DAILY PRN PO 03/15/17 15:00 05/10/17 14:59 Docusate Sodium (coLACE CAP) 100 mg BID PO 03/15/17 21:00 05/10/17 20:59 04/19/17 07:42 100 MG Bisacodyl (Dulcolax Supp) 10 mg DAILY PRN MA 03/15/17 15:00 05/10/17 14:59 Heparin Sodium (Porcine) (Heparin Sq 5000 Unit/0.5ml) 5,000 unit Q12 SQ 03/15/17 21:00 05/10/17 20:59 04/19/17 07:43 5,000 UNIT Calcium Carbonate (Tums Chew Tab) 2,000 mg QID PO 03/16/17 17:00 05/10/17 16:59 04/19/17 12:23 2,000 MG Calcium Carbonate (oS-Randy 500 TAB) 1,250 mg QID PO 03/18/17 09:00 05/10/17 08:59 04/19/17 12:23 1,250 MG Miscellaneous (Tap Water Enema) 1 ea Q2D PRN MA 03/18/17 13:30 05/10/17 13:29 Heparin Sodium (Porcine) (Heparin 10 Unit/ ml 5 ml Flush) 5 ml PRN PRN FLUSH 03/18/17 15:30 05/10/17 15:29 04/06/17 05:39 5 ML Heparin Sodium (Porcine) (Heparin 10 Unit/ ml 5 ml Flush) 5 ml PRN PRN FLUSH 03/29/17 11:00 04/28/17 10:59 Benzonatate (Tessalon Perles Cap) 100 mg TID PRN PO 04/08/17 10:45 05/08/17 10:44 04/10/17 20:37 100 MG Calcitriol (Rocaltrol Cap) 4 mcg QAM PO 04/11/17 08:00 05/11/17 07:59 04/19/17 07:41 4 MCG Ergocalciferol (Vitamin D Cap) 50,000 interunit DAILY PO 04/11/17 08:00 04/23/17 07:59 04/19/17 07:42 50,000 INTERUNIT Potassium/ Phosphorus/Sodium (Phospha 250 Neutral 155-852-130 Mg) 2 tab QID PO 04/10/17 17:00 05/10/17 16:59 04/19/17 12:23 2 TAB Calcium Gluconate 99956 mg/Sodium Chloride 700 ml @ 70 mls/hr Q10H IV 04/15/17 21:30 05/15/17 21:29 04/19/17 05:37 70 MLS/HR Objective Vital Signs Date Time Temp Pulse Resp B/P (MAP) Pulse Ox O2 Delivery O2 Flow Rate FiO2 04/19/17 12:00 Room Air 04/19/17 11:24 36.8 77 16 90/53 (65) 96 04/19/17 08:00 Room Air 04/19/17 07:28 36.6 75 18 103/50 (67) 96 Room Air 04/19/17 04:43 36.5 76 18 104/55 (71) 95 Room Air 04/19/17 04:00 Room Air 04/19/17 00:00 Room Air 04/18/17 23:03 36.8 83 17 115/53 (73) 95 Room Air 04/18/17 20:00 Room Air 04/18/17 19:25 36.7 87 18 103/58 (73) 95 Room Air 04/18/17 16:00 Room Air 04/18/17 14:50 36.9 84 18 139/69 (92) 97 Room Air Physical Exam General Appearance: WD/WN, no apparent distress Eyes: normal inspection, EOMI, sclerae normal ENT: normal ENT inspection, hearing grossly normal, pharynx normal Neck: supple, no adenopathy, no JVD, trachea midline Respiratory/Chest: chest non-tender, lungs clear, normal breath sounds, no respiratory distress, no accessory muscle use Cardiovascular: regular rate, rhythm, no edema, no gallop, no JVD, no murmur Abdomen: normal bowel sounds, non tender, soft, no organomegaly Extremities: normal range of motion, non-tender, normal inspection, no pedal edema, no calf tenderness, pelvis stable Neurologic/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, no motor/sensory deficits, alert, normal mood/affect, oriented x 3 Laboratory Results Last 24 Hours Test 04/19/17 05:46 Sodium Level 139 mmol/L Potassium Level 5.0 mmol/L Chloride Level 109 mmol/L Carbon Dioxide Level 23 mmol/L Anion Gap 7.0 mmol/L Blood Urea Nitrogen 19 mg/dl Creatinine 0.99 mg/dl Est Creatinine Clear Calc Drug Dose 49.2 ml/min Estimated GFR () 81.3 Estimated GFR (Non- 70.1 BUN/Creatinine Ratio 18.8 Random Glucose 90 mg/dl Calcium Level 9.2 mg/dl Assessment and Plan 81 year old man with a history of prostate cancer and osteoblastic mets admitted because of severe hypocalcemia associated with with fatigue and found to have severe hypocalcemia secondary to his Denosumab (03/02/2017) Hypocalcemia calcium today is 9.2 -- Continue infusion to 1 gram/hour -- discontinue hydrochlorothiazide as blood pressure has been relatively soft -- Continue Calcitriol 4 mcg daily -- Continue OsCal 2500 QID -- Continue TUMS 2 grams TID -- Continue Ergocalciferol 50,000 units daily x 12 doses (day #6) per report: hypocalcemia related to Denosumab. Median time to correction ~ 21 days, pt has been here 34 days Continued [facility] stay due to: multiple IV medications needed Discharge planning: uncertain
[2017-04-19 14:43] VITALS: BP 111/68; PULSE 85; TEMP 36.4; O2SAT 97
[2017-04-19 20:30] VITALS: BP 102/55; PULSE 83; TEMP 36.7; O2SAT 95
[2017-04-19] MEDS: TAMSULOSIN HCL 0.4 MG CAP PO SCH (20:47)
[2017-04-19] MEDS: RANITIDINE HCL 150 MG TAB PO SCH (20:50)
[2017-04-19 23:16] VITALS: BP 113/61; TEMP 36.7; O2SAT 95
[2017-04-20] MEDS: SODIUM CHLORIDE 0.9% IV SCH ×3 (03:12→21:42)
[2017-04-20] MEDS: CALCIUM GLUCONATE IV SCH ×3 (03:12→21:42)
[2017-04-20 04:06] VITALS: BP 124/70; PULSE 79; TEMP 36.7; O2SAT 95
[2017-04-20 07:11] VITALS: BP 103/47; PULSE 79; TEMP 36.4; O2SAT 96
[2017-04-20] MEDS: POT PHOSPHATE MONOBASIC W/ SOD TAB PO SCH ×4 (08:16→20:33)
[2017-04-20] MEDS: DOCUSATE SODIUM 100 MG CAP PO SCH ×2 (08:16→20:32)
[2017-04-20] MEDS: CALCIUM CARBONATE 500 MG CHEWABLE PO SCH ×4 (08:16→20:33)
[2017-04-20] MEDS: PANTOprazole SOD 40 MG TAB PO SCH (08:16)
[2017-04-20] MEDS: CALCIUM CARBONATE 1250MG TAB PO SCH ×4 (08:16→20:32)
[2017-04-20] MEDS: ERGOCALCIFEROL 50,000 INTER.UNIT CAP PO SCH (08:16)
[2017-04-20] MEDS: CALCITRIOL 0.25 MCG CAP PO SCH (08:17)
[2017-04-20] MEDS: HEPARIN SOD 5000 UNIT/0.5 ML CARP SQ SCH ×2 (08:21→20:31)
--- NOTE | 2017-04-20 10:27 | Progress Note ---
Subjective Date of Service: Apr 20, 2017. Subjective Pt evaluation today including: conversation w/ patient, physical exam, lab review, review of inpatient medication list Pain: no pain PO Intake: adequate Voiding: bey catheter in place ambulating halls this AM, doing well, remains upbeat Problem List Medical Problems: (1) Dehydration Status: Acute (2) Failure to thrive Status: Acute (3) Hypomagnesemia Status: Acute (4) UTI (urinary tract infection) Status: Acute (5) Vomiting Status: Acute Review of Systems All Other Systems: Reviewed and Negative Medications Current Inpatient Medications Medications (Trade) Dose Ordered Sig/Jonathan Route Start Time Stop Time Status Last Admin Dose Admin Acetaminophen (Tylenol Tab) 650 mg Q4H PRN PO 03/15/17 14:15 05/10/17 14:14 Tamsulosin HCl (Flomax Cap) 0.8 mg HS PO 03/15/17 21:00 05/10/17 20:59 04/19/17 20:47 0.8 MG Miscellaneous Information (Order Awaiting Action) 1 ea QS N/A 03/15/17 16:00 05/10/17 15:59 Pantoprazole Sodium (Protonix Tab) 40 mg QAM PO 03/16/17 09:00 05/10/17 08:59 04/20/17 08:16 40 MG Ranitidine HCl (zANTac TAB) 300 mg HS PO 03/15/17 21:00 05/10/17 20:59 04/19/17 20:50 300 MG Polyethylene (Miralax Powder Packet) 17 gm DAILY PRN PO 03/15/17 15:00 05/10/17 14:59 Docusate Sodium (coLACE CAP) 100 mg BID PO 03/15/17 21:00 05/10/17 20:59 04/20/17 08:16 100 MG Bisacodyl (Dulcolax Supp) 10 mg DAILY PRN NM 03/15/17 15:00 05/10/17 14:59 Heparin Sodium (Porcine) (Heparin Sq 5000 Unit/0.5ml) 5,000 unit Q12 SQ 03/15/17 21:00 05/10/17 20:59 04/20/17 08:21 5,000 UNIT Calcium Carbonate (Tums Chew Tab) 2,000 mg QID PO 03/16/17 17:00 05/10/17 16:59 04/20/17 08:16 2,000 MG Calcium Carbonate (oS-Randy 500 TAB) 1,250 mg QID PO 03/18/17 09:00 05/10/17 08:59 04/20/17 08:16 1,250 MG Miscellaneous (Tap Water Enema) 1 ea Q2D PRN NM 03/18/17 13:30 05/10/17 13:29 Heparin Sodium (Porcine) (Heparin 10 Unit/ ml 5 ml Flush) 5 ml PRN PRN FLUSH 03/18/17 15:30 05/10/17 15:29 04/06/17 05:39 5 ML Heparin Sodium (Porcine) (Heparin 10 Unit/ ml 5 ml Flush) 5 ml PRN PRN FLUSH 03/29/17 11:00 04/28/17 10:59 04/20/17 05:50 5 ML Benzonatate (Tessalon Perles Cap) 100 mg TID PRN PO 04/08/17 10:45 05/08/17 10:44 04/10/17 20:37 100 MG Calcitriol (Rocaltrol Cap) 4 mcg QAM PO 04/11/17 08:00 05/11/17 07:59 04/20/17 08:17 4 MCG Ergocalciferol (Vitamin D Cap) 50,000 interunit DAILY PO 04/11/17 08:00 04/23/17 07:59 04/20/17 08:16 50,000 INTERUNIT Potassium/ Phosphorus/Sodium (Phospha 250 Neutral 155-852-130 Mg) 2 tab QID PO 04/10/17 17:00 05/10/17 16:59 04/20/17 08:16 2 TAB Calcium Gluconate 63421 mg/Sodium Chloride 700 ml @ 70 mls/hr Q10H IV 04/15/17 21:30 05/15/17 21:29 04/20/17 03:12 70 MLS/HR Objective Vital Signs Date Time Temp Pulse Resp B/P (MAP) Pulse Ox O2 Delivery O2 Flow Rate FiO2 04/20/17 08:00 Room Air 04/20/17 07:11 36.4 79 16 103/47 (65) 96 04/20/17 04:06 36.7 79 18 124/70 (88) 95 Room Air 04/20/17 04:00 Room Air 04/20/17 00:00 Room Air 04/19/17 23:16 36.7 16 113/61 (78) 95 Room Air 04/19/17 20:30 36.7 83 18 102/55 (71) 95 Room Air 04/19/17 20:00 Room Air 04/19/17 16:00 Room Air 04/19/17 14:43 36.4 85 16 111/68 (82) 97 04/19/17 12:00 Room Air 04/19/17 11:24 36.8 77 16 90/53 (65) 96 Physical Exam General Appearance: WD/WN, no apparent distress Eyes: normal inspection, EOMI, sclerae normal Respiratory/Chest: chest non-tender, lungs clear, normal breath sounds, no respiratory distress, no accessory muscle use Cardiovascular: regular rate, rhythm, no edema, no gallop, no JVD, no murmur Abdomen: normal bowel sounds, non tender, soft, no organomegaly, no pulsatile mass Extremities: normal range of motion, non-tender, normal inspection, no pedal edema Neurologic/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: 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, no motor/sensory deficits, alert, normal mood/affect, oriented x 3 Laboratory Results Last 24 Hours Test 04/20/17 05:23 Calcium Level 9.4 mg/dl Assessment and Plan 81 year old man with a history of prostate cancer and osteoblastic mets admitted because of severe hypocalcemia associated with with fatigue and found to have severe hypocalcemia secondary to his Denosumab (03/02/2017) Hypocalcemia calcium today is 9.4 -- Continue infusion to 1 gram/hour -- discontinue hydrochlorothiazide as blood pressure has been relatively soft -- Continue Calcitriol 4 mcg daily -- Continue OsCal 2500 QID -- Continue TUMS 2 grams TID -- Continue Ergocalciferol 50,000 units daily x 12 doses (day #7) per report: hypocalcemia related to Denosumab. Median time to correction ~ 21 days, pt has been here 35 days Continued [facility] stay due to: multiple IV medications needed Discharge planning: uncertain
--- NOTE | 2017-04-20 10:46 | Nephrology Progress Note ---
Nephrology Progress Note Date of Service Apr 20, 2017. Chief Complaint Follow-up for hypocalcemia Subjective David was seen this morning. He has been otherwise feeling fine, has been walking around the hallways. Eating well. Calcium has been improving but very slowly, 9.4 this morning. Review of Systems A complete review of systems was performed. Pertinent positives are noted above. All other systems are negative. Vital Signs Last 8 Hrs Date Time Temp Pulse Resp B/P (MAP) Pulse Ox O2 Delivery O2 Flow Rate FiO2 04/20/17 07:11 36.4 79 16 103/47 (65) 96 04/20/17 04:06 36.7 79 18 124/70 (88) 95 Room Air 04/20/17 04:00 Room Air Last Recorded Weight Weight (Kilograms): 63.000 Physical Exam GENERAL:Elderly male , AAA x 3, pleasant, not in any distress. NECK: Supple, no JVD. RESPIRATORY: clear to auscultation bilaterally, no wheezes or rales. CARDIOVASCULAR: S1, S2 normal, rate rhythm regular. EXTREMITY: No lower extremity edema NEURO: speech fluent. 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 04/20/17 05:23 Calcium Level 9.4 mg/dl (8.5-10.1) Allergies Coded Allergies: No Known Allergies (Unverified , 03/15/17) Medications Current Inpatient Medications Medications (Trade) Dose Ordered Sig/Jonathan Route Start Time Stop Time Status Last Admin Dose Admin Acetaminophen (Tylenol Tab) 650 mg Q4H PRN PO 03/15/17 14:15 05/10/17 14:14 Tamsulosin HCl (Flomax Cap) 0.8 mg HS PO 03/15/17 21:00 05/10/17 20:59 04/19/17 20:47 0.8 MG Miscellaneous Information (Order Awaiting Action) 1 ea QS N/A 03/15/17 16:00 05/10/17 15:59 Pantoprazole Sodium (Protonix Tab) 40 mg QAM PO 03/16/17 09:00 05/10/17 08:59 04/20/17 08:16 40 MG Ranitidine HCl (zANTac TAB) 300 mg HS PO 03/15/17 21:00 05/10/17 20:59 04/19/17 20:50 300 MG Polyethylene (Miralax Powder Packet) 17 gm DAILY PRN PO 03/15/17 15:00 05/10/17 14:59 Docusate Sodium (coLACE CAP) 100 mg BID PO 03/15/17 21:00 05/10/17 20:59 04/20/17 08:16 100 MG Bisacodyl (Dulcolax Supp) 10 mg DAILY PRN MO 03/15/17 15:00 05/10/17 14:59 Heparin Sodium (Porcine) (Heparin Sq 5000 Unit/0.5ml) 5,000 unit Q12 SQ 03/15/17 21:00 05/10/17 20:59 04/20/17 08:21 5,000 UNIT Calcium Carbonate (Tums Chew Tab) 2,000 mg QID PO 03/16/17 17:00 05/10/17 16:59 04/20/17 08:16 2,000 MG Calcium Carbonate (oS-Randy 500 TAB) 1,250 mg QID PO 03/18/17 09:00 05/10/17 08:59 04/20/17 08:16 1,250 MG Miscellaneous (Tap Water Enema) 1 ea Q2D PRN MO 03/18/17 13:30 05/10/17 13:29 Heparin Sodium (Porcine) (Heparin 10 Unit/ ml 5 ml Flush) 5 ml PRN PRN FLUSH 03/18/17 15:30 05/10/17 15:29 04/06/17 05:39 5 ML Heparin Sodium (Porcine) (Heparin 10 Unit/ ml 5 ml Flush) 5 ml PRN PRN FLUSH 03/29/17 11:00 04/28/17 10:59 04/20/17 05:50 5 ML Benzonatate (Tessalon Perles Cap) 100 mg TID PRN PO 04/08/17 10:45 05/08/17 10:44 04/10/17 20:37 100 MG Calcitriol (Rocaltrol Cap) 4 mcg QAM PO 04/11/17 08:00 05/11/17 07:59 04/20/17 08:17 4 MCG Ergocalciferol (Vitamin D Cap) 50,000 interunit DAILY PO 04/11/17 08:00 3/12/18 07:59 04/20/17 08:16 50,000 INTERUNIT Potassium/ Phosphorus/Sodium (Phospha 250 Neutral 155-852-130 Mg) 2 tab QID PO 04/10/17 17:00 05/10/17 16:59 04/20/17 08:16 2 TAB Calcium Gluconate 45070 mg/Sodium Chloride 700 ml @ 70 mls/hr Q10H IV 04/15/17 21:30 05/15/17 21:29 04/20/17 03:12 70 MLS/HR Impression (1) Hypocalcemia (2) Prostate cancer (3) Hypertension Mr. 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 He developed severe hypocalcemia following treatment with Denosumab. Renal function is normal based on eGFR. EKG documented new QTc prolongation which improved with treatment. 25OH D deficiency documented on presentation. This was treated with ergocalciferol 24766 IU and cholecalciferol. Calcitriol is being provided. Aggressive replacement with PO and IV calcium continues. The patient has associated hypomagnesemia. This is being treated with IV magnesium sulfate. Based on review of the literature, medium time to calcium jonny is 21 days and median time to correction of hypocalcemia is 71 days. The patient continues to require IV calcium gluconate. [facility] was called and spoke w/ Therese ([facility] clinical pharmacy [phone]). She confirmed 21 day half life of Xgeva. No reversal agent available. They have recommended Ca infusion. They will file adverse event report w/ FDA Recommendations -- continue on current dose IV Ca gluconate at 2 g / hr, no change for now -- Continue Calcitriol 4 mcg daily, OsCal 2500 QID, TUMS 2 grams TID -- Vitamin D 35 (04/10) Will follow
[2017-04-20 11:04] VITALS: BP 111/64; PULSE 87; TEMP 36.4; O2SAT 96
[2017-04-20 14:55] VITALS: BP 122/58; PULSE 96; TEMP 36.6; O2SAT 96
[2017-04-20 19:31] VITALS: BP 123/73; PULSE 87; TEMP 36.6; O2SAT 96
[2017-04-20] MEDS: RANITIDINE HCL 150 MG TAB PO SCH (20:32)
[2017-04-20] MEDS: TAMSULOSIN HCL 0.4 MG CAP PO SCH (20:33)
[2017-04-20 23:26] VITALS: BP 131/67; PULSE 92; TEMP 36.7; O2SAT 95
[2017-04-21 04:12] VITALS: BP 111/68; PULSE 86; TEMP 36.7; O2SAT 96
[2017-04-21 07:13] VITALS: BP 120/67; PULSE 94; TEMP 36.5; O2SAT 98
[2017-04-21] MEDS: ERGOCALCIFEROL 50,000 INTER.UNIT CAP PO SCH (07:45)
[2017-04-21] MEDS: SODIUM CHLORIDE 0.9% IV SCH ×2 (07:45→18:05)
[2017-04-21] MEDS: CALCIUM CARBONATE 500 MG CHEWABLE PO SCH ×4 (07:45→21:41)
[2017-04-21] MEDS: CALCIUM GLUCONATE IV SCH ×2 (07:45→18:05)
[2017-04-21] MEDS: PANTOprazole SOD 40 MG TAB PO SCH (07:45)
[2017-04-21] MEDS: POT PHOSPHATE MONOBASIC W/ SOD TAB PO SCH ×4 (07:46→21:40)
[2017-04-21] MEDS: CALCIUM CARBONATE 1250MG TAB PO SCH ×4 (07:46→21:42)
[2017-04-21] MEDS: DOCUSATE SODIUM 100 MG CAP PO SCH ×2 (07:46→21:42)
[2017-04-21] MEDS: CALCITRIOL 0.25 MCG CAP PO SCH (07:47)
[2017-04-21] MEDS: HEPARIN SOD 5000 UNIT/0.5 ML CARP SQ SCH ×2 (07:51→21:43)
--- NOTE | 2017-04-21 10:43 | Nephrology Progress Note ---
Nephrology Progress Note Date of Service Apr 21, 2017. Chief Complaint Hypocalcemia Subjective No acute events overnight. No complaints this morning. Paul feels well. He is tolerating calcium infusion. He is ambulating in the hallways. Appetite is good. He denies any weakness. He denies any shortness of breath. Review of Systems A complete review of systems was performed. Pertinent positives are noted above. All other systems are negative. Vital Signs Last 8 Hrs Date Time Temp Pulse Resp B/P (MAP) Pulse Ox O2 Delivery O2 Flow Rate FiO2 04/21/17 08:00 Room Air 04/21/17 07:13 36.5 94 16 120/67 (84) 98 Room Air 04/21/17 04:12 36.7 86 18 111/68 (82) 96 Room Air 04/21/17 04:01 Room Air Last Recorded Weight Weight (Kilograms): 63.500 Physical Exam General Appearance: no apparent distress, + thin Head: normocephalic, atraumatic Eyes: normal inspection, sclerae normal ENT: normal ENT inspection, pharynx normal Neck: supple, no JVD Respiratory/Chest: lungs clear, no respiratory distress, no accessory muscle use Cardiovascular: regular rate, rhythm, no gallop, no murmur Back: no CVA tenderness Abdomen/GI: non tender, soft Extremities/Musculoskelatal: normal inspection, no pedal edema Neurologic/Psych: alert, normal mood/affect Social History Drug Use: none Marital Status: Housing Status: lives with family (lives with son) 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 04/21/17 05:18 Calcium Level 9.5 mg/dl (8.5-10.1) Allergies Coded Allergies: No Known Allergies (Unverified , 03/15/17) Medications Current Inpatient Medications Medications (Trade) Dose Ordered Sig/Jonathan Route Start Time Stop Time Status Last Admin Dose Admin Acetaminophen (Tylenol Tab) 650 mg Q4H PRN PO 03/15/17 14:15 05/10/17 14:14 Tamsulosin HCl (Flomax Cap) 0.8 mg HS PO 03/15/17 21:00 05/10/17 20:59 04/20/17 20:33 0.8 MG Miscellaneous Information (Order Awaiting Action) 1 ea QS N/A 03/15/17 16:00 05/10/17 15:59 Pantoprazole Sodium (Protonix Tab) 40 mg QAM PO 03/16/17 09:00 05/10/17 08:59 04/21/17 07:45 40 MG Ranitidine HCl (zANTac TAB) 300 mg HS PO 03/15/17 21:00 05/10/17 20:59 04/20/17 20:32 300 MG Polyethylene (Miralax Powder Packet) 17 gm DAILY PRN PO 03/15/17 15:00 05/10/17 14:59 Docusate Sodium (coLACE CAP) 100 mg BID PO 03/15/17 21:00 05/10/17 20:59 04/21/17 07:46 100 MG Bisacodyl (Dulcolax Supp) 10 mg DAILY PRN NM 03/15/17 15:00 05/10/17 14:59 Heparin Sodium (Porcine) (Heparin Sq 5000 Unit/0.5ml) 5,000 unit Q12 SQ 03/15/17 21:00 05/10/17 20:59 04/21/17 07:51 5,000 UNIT Calcium Carbonate (Tums Chew Tab) 2,000 mg QID PO 03/16/17 17:00 05/10/17 16:59 04/21/17 07:45 2,000 MG Calcium Carbonate (oS-Randy 500 TAB) 1,250 mg QID PO 03/18/17 09:00 05/10/17 08:59 04/21/17 07:46 1,250 MG Miscellaneous (Tap Water Enema) 1 ea Q2D PRN NM 03/18/17 13:30 05/10/17 13:29 Heparin Sodium (Porcine) (Heparin 10 Unit/ ml 5 ml Flush) 5 ml PRN PRN FLUSH 03/18/17 15:30 05/10/17 15:29 04/06/17 05:39 5 ML Heparin Sodium (Porcine) (Heparin 10 Unit/ ml 5 ml Flush) 5 ml PRN PRN FLUSH 03/29/17 11:00 04/28/17 10:59 04/20/17 05:50 5 ML Benzonatate (Tessalon Perles Cap) 100 mg TID PRN PO 04/08/17 10:45 05/08/17 10:44 04/10/17 20:37 100 MG Calcitriol (Rocaltrol Cap) 4 mcg QAM PO 04/11/17 08:00 05/11/17 07:59 04/21/17 07:47 4 MCG Ergocalciferol (Vitamin D Cap) 50,000 interunit DAILY PO 04/11/17 08:00 04/23/17 07:59 04/21/17 07:45 50,000 INTERUNIT Potassium/ Phosphorus/Sodium (Phospha 250 Neutral 155-852-130 Mg) 2 tab QID PO 04/10/17 17:00 05/10/17 16:59 04/21/17 07:46 2 TAB Calcium Gluconate 78643 mg/Sodium Chloride 700 ml @ 70 mls/hr Q10H IV 04/15/17 21:30 05/15/17 21:29 04/21/17 07:45 70 MLS/HR Impression (1) Hypocalcemia (2) Prostate cancer (3) Hypertension Mr. 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 He developed severe hypocalcemia following treatment with Denosumab. Renal function is normal. He remains on tele monitor with normal QTc. 25OH D deficiency documented on presentation is being treated with ergocalciferol 06574 IU. Calcitriol is also being provided. The patient is taking PO calcium in the form of TUMs and Oscal. Aggressive replacement with PO and IV calcium continues. The patient has had associated hypomagnesemia. Recommendations -- Will decrease IV calcium gluconate from 2 g/hr to 1 g/hr today -- Continue Calcitriol 4 mcg daily, OsCal 2500 QID, TUMS 2 grams TID -- Monitor serum calcium daily -- Recheck magnesium level tomorrow AM and replace as needed
[2017-04-21 11:50] VITALS: BP 131/42; PULSE 92; TEMP 36.6; O2SAT 94
--- NOTE | 2017-04-21 12:39 | Progress Note ---
Subjective Date of Service: Apr 21, 2017. Subjective Pt evaluation today including: conversation w/ patient, physical exam, lab review, conversation w/ medical consultant, review of inpatient medication list Pain: no pain PO Intake: adequate Voiding: bey catheter in place no new issues Ca is 9.5 discussed with nephrology, plan to reduce calcium dose slightly to see if Ca remains stable Problem List Medical Problems: (1) Dehydration Status: Acute (2) Failure to thrive Status: Acute (3) Hypomagnesemia Status: Acute (4) UTI (urinary tract infection) Status: Acute (5) Vomiting Status: Acute Review of Systems All Other Systems: Reviewed and Negative Medications Current Inpatient Medications Medications (Trade) Dose Ordered Sig/Jonathan Route Start Time Stop Time Status Last Admin Dose Admin Acetaminophen (Tylenol Tab) 650 mg Q4H PRN PO 03/15/17 14:15 05/10/17 14:14 Tamsulosin HCl (Flomax Cap) 0.8 mg HS PO 03/15/17 21:00 05/10/17 20:59 04/20/17 20:33 0.8 MG Miscellaneous Information (Order Awaiting Action) 1 ea QS N/A 03/15/17 16:00 05/10/17 15:59 Pantoprazole Sodium (Protonix Tab) 40 mg QAM PO 03/16/17 09:00 05/10/17 08:59 04/21/17 07:45 40 MG Ranitidine HCl (zANTac TAB) 300 mg HS PO 03/15/17 21:00 05/10/17 20:59 04/20/17 20:32 300 MG Polyethylene (Miralax Powder Packet) 17 gm DAILY PRN PO 03/15/17 15:00 05/10/17 14:59 Docusate Sodium (coLACE CAP) 100 mg BID PO 03/15/17 21:00 05/10/17 20:59 04/21/17 07:46 100 MG Bisacodyl (Dulcolax Supp) 10 mg DAILY PRN [place] 03/15/17 15:00 05/10/17 14:59 Heparin Sodium (Porcine) (Heparin Sq 5000 Unit/0.5ml) 5,000 unit Q12 SQ 03/15/17 21:00 05/10/17 20:59 04/21/17 07:51 5,000 UNIT Calcium Carbonate (Tums Chew Tab) 2,000 mg QID PO 03/16/17 17:00 05/10/17 16:59 04/21/17 12:18 2,000 MG Calcium Carbonate (oS-Randy 500 TAB) 1,250 mg QID PO 03/18/17 09:00 05/10/17 08:59 04/21/17 12:18 1,250 MG Miscellaneous (Tap Water Enema) 1 ea Q2D PRN [place] 03/18/17 13:30 05/10/17 13:29 Heparin Sodium (Porcine) (Heparin 10 Unit/ ml 5 ml Flush) 5 ml PRN PRN FLUSH 03/18/17 15:30 05/10/17 15:29 04/06/17 05:39 5 ML Heparin Sodium (Porcine) (Heparin 10 Unit/ ml 5 ml Flush) 5 ml PRN PRN FLUSH 03/29/17 11:00 04/28/17 10:59 04/20/17 05:50 5 ML Benzonatate (Tessalon Perles Cap) 100 mg TID PRN PO 04/08/17 10:45 05/08/17 10:44 04/10/17 20:37 100 MG Calcitriol (Rocaltrol Cap) 4 mcg QAM PO 04/11/17 08:00 05/11/17 07:59 04/21/17 07:47 4 MCG Ergocalciferol (Vitamin D Cap) 50,000 interunit DAILY PO 04/11/17 08:00 04/23/17 07:59 04/21/17 07:45 50,000 INTERUNIT Potassium/ Phosphorus/Sodium (Phospha 250 Neutral 155-852-130 Mg) 2 tab QID PO 04/10/17 17:00 05/10/17 16:59 04/21/17 12:18 2 TAB Calcium Gluconate 52838 mg/Sodium Chloride 600 ml @ 60 mls/hr Q10H IV 04/21/17 12:00 05/15/17 11:59 Objective Vital Signs Date Time Temp Pulse Resp B/P (MAP) Pulse Ox O2 Delivery O2 Flow Rate FiO2 04/21/17 12:00 Room Air 04/21/17 11:50 36.6 92 18 131/42 (71) 94 04/21/17 08:00 Room Air 04/21/17 07:13 36.5 94 16 120/67 (84) 98 Room Air 04/21/17 04:12 36.7 86 18 111/68 (82) 96 Room Air 04/21/17 04:01 Room Air 04/21/17 00:05 Room Air 04/20/17 23:26 36.7 92 18 131/67 (88) 95 Room Air 04/20/17 20:01 Room Air 04/20/17 19:31 36.6 87 18 123/73 (90) 96 Room Air 04/20/17 16:00 Room Air 04/20/17 14:55 36.6 96 18 122/58 (79) 96 Room Air Physical Exam General Appearance: WD/WN, no apparent distress Eyes: normal inspection, EOMI, sclerae normal ENT: normal ENT inspection, hearing grossly normal, pharynx normal Neck: supple, no adenopathy, no JVD, trachea midline Respiratory/Chest: chest non-tender, lungs clear, normal breath sounds, no respiratory distress, no accessory muscle use Cardiovascular: regular rate, rhythm, no edema, no gallop, no JVD, no murmur Abdomen: normal bowel sounds, non tender, soft, no organomegaly Extremities: normal range of motion, non-tender, normal inspection, no pedal edema, no calf tenderness Laboratory Results Last 24 Hours Test 04/21/17 05:18 Calcium Level 9.5 mg/dl Assessment and Plan 81 year old man with a history of prostate cancer and osteoblastic mets admitted because of severe hypocalcemia associated with with fatigue and found to have severe hypocalcemia secondary to his Denosumab (03/02/2017) Hypocalcemia calcium today is 9.5 -- plan to reduce calcium infusion dose, cut in half, see if Ca remains stable -- discontinue hydrochlorothiazide as blood pressure has been relatively soft -- Continue Calcitriol 4 mcg daily -- Continue OsCal 2500 QID -- Continue TUMS 2 grams TID -- Continue Ergocalciferol 50,000 units daily x 12 doses (day #8) per report: hypocalcemia related to Denosumab. Median time to correction ~ 21 days, pt has been here 36 days Continued [facility] stay due to: multiple IV medications needed Discharge planning: uncertain
[2017-04-21 15:14] VITALS: BP 138/72; PULSE 88; TEMP 36.3; O2SAT 97
[2017-04-21 19:17] VITALS: BP 114/67; PULSE 95; TEMP 36.4; O2SAT 97
[2017-04-21] MEDS: TAMSULOSIN HCL 0.4 MG CAP PO SCH (21:41)
[2017-04-21] MEDS: RANITIDINE HCL 150 MG TAB PO SCH (21:43)
[2017-04-21 23:20] VITALS: BP 136/69; PULSE 89; TEMP 36.7; O2SAT 98
[2017-04-22] VITALS (8 sets, daily range): BP systolic 93–147; BP diastolic 47–86; PULSE 82–92; TEMP 36.4–36.8; O2SAT 95–97
[2017-04-22 05:29] LABS: CALCIUM 7.7 mg/dl (8.5-10.1)
[2017-04-22] MEDS: CALCIUM GLUCONATE IV SCH ×4 (06:55→16:07)
[2017-04-22] MEDS: SODIUM CHLORIDE 0.9% IV SCH ×4 (06:55→16:07)
[2017-04-22] MEDS: PANTOprazole SOD 40 MG TAB PO SCH (07:55)
[2017-04-22] MEDS: CALCIUM CARBONATE 500 MG CHEWABLE PO SCH ×4 (07:55→20:50)
[2017-04-22] MEDS: DOCUSATE SODIUM 100 MG CAP PO SCH ×2 (07:55→20:47)
[2017-04-22] MEDS: CALCIUM CARBONATE 1250MG TAB PO SCH ×4 (07:56→20:49)
[2017-04-22] MEDS: POT PHOSPHATE MONOBASIC W/ SOD TAB PO SCH ×4 (07:56→20:50)
[2017-04-22] MEDS: CALCITRIOL 0.25 MCG CAP PO SCH (07:56)
[2017-04-22] MEDS: ERGOCALCIFEROL 50,000 INTER.UNIT CAP PO SCH (07:56)
[2017-04-22] MEDS: HEPARIN SOD 5000 UNIT/0.5 ML CARP SQ SCH ×2 (08:01→20:56)
[2017-04-22] MEDS: MAGNESIUM SULFATE 1GM / D5W 1 GM in PREMIXED IN D5W 100 ML IV SCH ×2 (08:29→09:28)
--- NOTE | 2017-04-22 10:21 | Nephrology Progress Note ---
Nephrology Progress Note Date of Service Apr 22, 2017. Chief Complaint Hypocalcemia Subjective No acute events overnight. Paul feels well this morning. He denies weakness. No muscle cramps or fasciculations. He denies pain. No chest pains, palpitations or shortness of breath. He remains on hospital monitor. Review of Systems A complete review of systems was performed. Pertinent positives are noted above. All other systems are negative. Vital Signs Last 8 Hrs Date Time Temp Pulse Resp B/P (MAP) Pulse Ox O2 Delivery O2 Flow Rate FiO2 04/22/17 08:00 Room Air 04/22/17 07:16 36.5 86 16 147/78 (101) 97 04/22/17 04:08 36.4 82 19 105/86 (92) 95 Room Air 04/22/17 04:00 Room Air Last Recorded Weight Weight (Kilograms): 63.200 Physical Exam General Appearance: no apparent distress, + thin Head: normocephalic, atraumatic Eyes: normal inspection, sclerae normal ENT: normal ENT inspection, pharynx normal Neck: supple, no JVD Respiratory/Chest: lungs clear, no respiratory distress, no accessory muscle use Cardiovascular: regular rate, rhythm, no gallop, no murmur Abdomen/GI: non tender, soft Extremities/Musculoskelatal: normal inspection, no pedal edema Neurologic/Psych: alert, normal mood/affect Social History Drug Use: none Marital Status: Housing Status: lives with family (lives with son) 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 04/22/17 04:34 Calcium Level 7.7 mg/dl (8.5-10.1) Magnesium Level 1.5 mg/dl (1.8-2.4) Allergies Coded Allergies: No Known Allergies (Unverified , 03/15/17) Medications Current Inpatient Medications Medications (Trade) Dose Ordered Sig/Jonathan Route Start Time Stop Time Status Last Admin Dose Admin Acetaminophen (Tylenol Tab) 650 mg Q4H PRN PO 03/15/17 14:15 05/10/17 14:14 Tamsulosin HCl (Flomax Cap) 0.8 mg HS PO 03/15/17 21:00 05/10/17 20:59 04/21/17 21:41 0.8 MG Miscellaneous Information (Order Awaiting Action) 1 ea QS N/A 03/15/17 16:00 05/10/17 15:59 Pantoprazole Sodium (Protonix Tab) 40 mg QAM PO 03/16/17 09:00 05/10/17 08:59 04/22/17 07:55 40 MG Ranitidine HCl (zANTac TAB) 300 mg HS PO 03/15/17 21:00 05/10/17 20:59 04/21/17 21:43 300 MG Polyethylene (Miralax Powder Packet) 17 gm DAILY PRN PO 03/15/17 15:00 05/10/17 14:59 Docusate Sodium (coLACE CAP) 100 mg BID PO 03/15/17 21:00 05/10/17 20:59 04/22/17 07:55 100 MG Bisacodyl (Dulcolax Supp) 10 mg DAILY PRN [place] 03/15/17 15:00 05/10/17 14:59 Heparin Sodium (Porcine) (Heparin Sq 5000 Unit/0.5ml) 5,000 unit Q12 SQ 03/15/17 21:00 05/10/17 20:59 04/22/17 08:01 5,000 UNIT Calcium Carbonate (Tums Chew Tab) 2,000 mg QID PO 03/16/17 17:00 05/10/17 16:59 04/22/17 07:55 2,000 MG Calcium Carbonate (oS-Randy 500 TAB) 1,250 mg QID PO 03/18/17 09:00 05/10/17 08:59 04/22/17 07:56 1,250 MG Miscellaneous (Tap Water Enema) 1 ea Q2D PRN [place] 03/18/17 13:30 05/10/17 13:29 Heparin Sodium (Porcine) (Heparin 10 Unit/ ml 5 ml Flush) 5 ml PRN PRN FLUSH 03/18/17 15:30 05/10/17 15:29 04/06/17 05:39 5 ML Heparin Sodium (Porcine) (Heparin 10 Unit/ ml 5 ml Flush) 5 ml PRN PRN FLUSH 03/29/17 11:00 04/28/17 10:59 04/20/17 05:50 5 ML Benzonatate (Tessalon Perles Cap) 100 mg TID PRN PO 04/08/17 10:45 05/08/17 10:44 04/10/17 20:37 100 MG Calcitriol (Rocaltrol Cap) 4 mcg QAM PO 04/11/17 08:00 05/11/17 07:59 04/22/17 07:56 4 MCG Ergocalciferol (Vitamin D Cap) 50,000 interunit DAILY PO 04/11/17 08:00 04/23/17 07:59 04/22/17 07:56 50,000 INTERUNIT Potassium/ Phosphorus/Sodium (Phospha 250 Neutral 155-852-130 Mg) 2 tab QID PO 04/10/17 17:00 05/10/17 16:59 04/22/17 07:56 2 TAB Calcium Gluconate 92126 mg/Sodium Chloride 600 ml @ 60 mls/hr Q10H IV 04/21/17 12:00 05/15/17 11:59 04/22/17 06:55 60 MLS/HR Impression (1) Hypocalcemia (2) Prostate cancer (3) Hypertension Mr. 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 He developed severe hypocalcemia following Denosumab infusion. Renal function is normal. He remains on tele monitor with normal QTc. 25OH D deficiency documented on presentation is being treated with ergocalciferol 93827 IU. Calcitriol is also being provided. The patient is taking PO calcium in the form of TUMs and Oscal. Aggressive replacement with PO and IV calcium continues. The patient has had associated hypomagnesemia. Hypomagnesemia treated with IV magnesium sulfate today. Calcium dropped rapidly when calcium gluconate infusion was dropped from 2 gm/ hr to 1 gm/hr overnight. Will resume 2 gm/hr today. Recommendations -- IV calcium gluconate from 2 g/hr -- Continue Calcitriol 4 mcg daily, OsCal 2500 QID, TUMS 2 grams TID -- Monitor serum calcium daily and repeat serum magnesium tomorrow AM
[2017-04-22] MEDS ORDERED: SODIUM CHLORIDE 0.9% IV SCH (11:45)
[2017-04-22] MEDS ORDERED: CALCIUM GLUCONATE IV SCH (11:45)
--- NOTE | 2017-04-22 13:07 | Progress Note ---
Subjective Date of Service: Apr 22, 2017. Subjective Pt evaluation today including: conversation w/ patient, physical exam, lab review, conversation w/ system sales consultant, review of inpatient medication list Pain: no pain PO Intake: adequate Voiding: bey catheter in place Ca down to 7.7 after decreasing drip rate to 1gm/hr for 12 hours d/w Dr. Aquino, will increase dose back up to 2gm/hr Dr. Aquino planning on contacting [employer]lo[employer] weaver from [place] who has authored paper on hypocalcemia from [employer] Problem List Medical Problems: (1) Dehydration Status: Acute (2) Failure to thrive Status: Acute (3) Hypomagnesemia Status: Acute (4) UTI (urinary tract infection) Status: Acute (5) Vomiting Status: Acute Review of Systems All Other Systems: Reviewed and Negative Medications Current Inpatient Medications Medications (Trade) Dose Ordered Sig/Jonathan Route Start Time Stop Time Status Last Admin Dose Admin Acetaminophen (Tylenol Tab) 650 mg Q4H PRN PO 03/15/17 14:15 05/10/17 14:14 Tamsulosin HCl (Flomax Cap) 0.8 mg HS PO 03/15/17 21:00 05/10/17 20:59 04/21/17 21:41 0.8 MG Miscellaneous Information (Order Awaiting Action) 1 ea QS N/A 03/15/17 16:00 05/10/17 15:59 Pantoprazole Sodium (Protonix Tab) 40 mg QAM PO 03/16/17 09:00 05/10/17 08:59 04/22/17 07:55 40 MG Ranitidine HCl (zANTac TAB) 300 mg HS PO 03/15/17 21:00 05/10/17 20:59 04/21/17 21:43 300 MG Polyethylene (Miralax Powder Packet) 17 gm DAILY PRN PO 03/15/17 15:00 05/10/17 14:59 Docusate Sodium (coLACE CAP) 100 mg BID PO 03/15/17 21:00 05/10/17 20:59 04/22/17 07:55 100 MG Bisacodyl (Dulcolax Supp) 10 mg DAILY PRN [place] 03/15/17 15:00 05/10/17 14:59 Heparin Sodium (Porcine) (Heparin Sq 5000 Unit/0.5ml) 5,000 unit Q12 SQ 03/15/17 21:00 05/10/17 20:59 04/22/17 08:01 5,000 UNIT Calcium Carbonate (Tums Chew Tab) 2,000 mg QID PO 03/16/17 17:00 05/10/17 16:59 04/22/17 12:41 2,000 MG Calcium Carbonate (oS-Randy 500 TAB) 1,250 mg QID PO 03/18/17 09:00 05/10/17 08:59 04/22/17 12:40 1,250 MG Miscellaneous (Tap Water Enema) 1 ea Q2D PRN [place] 03/18/17 13:30 05/10/17 13:29 Heparin Sodium (Porcine) (Heparin 10 Unit/ ml 5 ml Flush) 5 ml PRN PRN FLUSH 03/18/17 15:30 05/10/17 15:29 04/06/17 05:39 5 ML Heparin Sodium (Porcine) (Heparin 10 Unit/ ml 5 ml Flush) 5 ml PRN PRN FLUSH 03/29/17 11:00 04/28/17 10:59 04/20/17 05:50 5 ML Benzonatate (Tessalon Perles Cap) 100 mg TID PRN PO 04/08/17 10:45 05/08/17 10:44 04/10/17 20:37 100 MG Calcitriol (Rocaltrol Cap) 4 mcg QAM PO 04/11/17 08:00 05/11/17 07:59 04/22/17 07:56 4 MCG Ergocalciferol (Vitamin D Cap) 50,000 interunit DAILY PO 04/11/17 08:00 04/23/17 07:59 04/22/17 07:56 50,000 INTERUNIT Potassium/ Phosphorus/Sodium (Phospha 250 Neutral 155-852-130 Mg) 2 tab QID PO 04/10/17 17:00 05/10/17 16:59 04/22/17 12:41 2 TAB Calcium Gluconate 10114 mg/Sodium Chloride 600 ml @ 120 mls/hr Q5H IV 04/21/17 12:00 04/22/17 15:00 04/22/17 06:55 60 MLS/HR Calcium Gluconate 59982 mg/Sodium Chloride 700 ml @ 70 mls/hr Q10H IV 04/22/17 15:00 05/22/17 14:59 Objective Vital Signs Date Time Temp Pulse Resp B/P (MAP) Pulse Ox O2 Delivery O2 Flow Rate FiO2 04/22/17 12:00 Room Air 04/22/17 11:46 36.7 90 18 107/63 (78) 97 04/22/17 08:00 Room Air 04/22/17 07:16 36.5 86 16 147/78 (101) 97 04/22/17 04:08 36.4 82 19 105/86 (92) 95 Room Air 04/22/17 04:00 Room Air 04/22/17 00:05 Room Air 04/21/17 23:20 36.7 89 18 136/69 (91) 98 Room Air 04/21/17 20:05 Room Air 04/21/17 19:17 36.4 95 18 114/67 (83) 97 Room Air 04/21/17 16:00 Room Air 04/21/17 15:14 36.3 88 20 138/72 (94) 97 Room Air Physical Exam General Appearance: WD/WN, no apparent distress Eyes: normal inspection, EOMI, sclerae normal ENT: normal ENT inspection, hearing grossly normal, pharynx normal Neck: supple, no adenopathy, no JVD, trachea midline Respiratory/Chest: chest non-tender, lungs clear, normal breath sounds, no respiratory distress, no accessory muscle use Cardiovascular: regular rate, rhythm, no edema, no gallop, no JVD, no murmur Abdomen: normal bowel sounds, non tender, soft, no organomegaly Extremities: normal range of motion, non-tender, normal inspection, no pedal edema, no calf tenderness, pelvis stable Neurologic/Psychiatric: venipuncturist II-XII nml as tested, no motor/sensory deficits, alert, normal mood/affect, oriented x 3 Skin: normal color, warm/dry, no rash Laboratory Results Last 24 Hours Test 04/22/17 04:34 Calcium Level 7.7 mg/dl Magnesium Level 1.5 mg/dl Assessment and Plan 81 year old man with a history of prostate cancer and osteoblastic mets admitted because of severe hypocalcemia associated with with fatigue and found to have severe hypocalcemia secondary to his Denosumab (03/02/2017) Hypocalcemia calcium today is 7.7 after decreasing infusion rate to 1gm/hr for 12 hours go back to 2gm/hr -- increase back to 2gm/hr after calcium dropped, continue to monitor daily -- discontinue hydrochlorothiazide as blood pressure has been relatively soft -- Continue Calcitriol 4 mcg daily -- Continue OsCal 2500 QID -- Continue TUMS 2 grams TID -- Continue Ergocalciferol 50,000 units daily x 12 doses (day #9) per report: hypocalcemia related to Denosumab. Median time to correction ~ 21 days, pt has been here 37 days Continued [facility] stay due to: multiple IV medications needed Discharge planning: uncertain
[2017-04-22] MEDS: TAMSULOSIN HCL 0.4 MG CAP PO SCH (20:48)
[2017-04-22] MEDS: RANITIDINE HCL 150 MG TAB PO SCH (20:50)
[2017-04-23] VITALS (8 sets, daily range): BP systolic 104–160; BP diastolic 53–83; PULSE 82–99; TEMP 36.5–36.7; O2SAT 95–98
[2017-04-23] MEDS: CALCIUM GLUCONATE IV SCH ×3 (02:40→23:34)
[2017-04-23] MEDS: SODIUM CHLORIDE 0.9% IV SCH ×3 (02:40→23:34)
[2017-04-23 06:18] LABS: CALCIUM 9.2 mg/dl (8.5-10.1)
[2017-04-23] MEDS: POT PHOSPHATE MONOBASIC W/ SOD TAB PO SCH ×4 (08:08→21:01)
[2017-04-23] MEDS: CALCITRIOL 0.25 MCG CAP PO SCH (08:09)
[2017-04-23] MEDS: DOCUSATE SODIUM 100 MG CAP PO SCH ×2 (08:10→21:01)
[2017-04-23] MEDS: CALCIUM CARBONATE 1250MG TAB PO SCH ×4 (08:10→21:01)
[2017-04-23] MEDS: PANTOprazole SOD 40 MG TAB PO SCH (08:13)
[2017-04-23] MEDS: HEPARIN SOD 5000 UNIT/0.5 ML CARP SQ SCH ×2 (08:13→21:05)
[2017-04-23] MEDS: CALCIUM CARBONATE 500 MG CHEWABLE PO SCH ×4 (08:13→21:01)
[2017-04-23] MEDS ORDERED: MAGNESIUM SULFATE 1GM / D5W 1 GM in PREMIXED IN D5W 100 ML IV ONE (10:00)
--- NOTE | 2017-04-23 10:43 | Nephrology Progress Note ---
Nephrology Progress Note Date of Service Apr 23, 2017. Chief Complaint Hypocalcemia Subjective No acute events overnight. No complaints this AM. Paul continues ambulating the halls. His appetite is good. He denies weakness. He remains in good spirits. Review of Systems A complete review of systems was performed. Pertinent positives are noted above. All other systems are negative. Vital Signs Last 8 Hrs Date Time Temp Pulse Resp B/P (MAP) Pulse Ox O2 Delivery O2 Flow Rate FiO2 04/23/17 08:00 96 Room Air 04/23/17 07:14 36.7 82 18 120/57 (78) 96 Room Air 04/23/17 04:17 36.5 83 18 160/83 (108) 98 Room Air 04/23/17 04:00 Room Air I & O 24-Hour Column 04/24/17 07:59 Output Total 0 ml Balance 0 ml Last Recorded Weight Weight (Kilograms): 63.800 Physical Exam General Appearance: WD/WN, no apparent distress Head: normocephalic, atraumatic Eyes: normal inspection, sclerae normal ENT: normal ENT inspection, pharynx normal Neck: supple, no JVD Respiratory/Chest: lungs clear, no respiratory distress, no accessory muscle use Cardiovascular: regular rate, rhythm, no gallop, no murmur Abdomen/GI: non tender, soft Extremities/Musculoskelatal: normal inspection, no pedal edema Neurologic/Psych: alert, normal mood/affect Social History Drug Use: none Marital Status: Housing Status: lives with family (lives with son) 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 04/23/17 05:21 Calcium Level 9.2 mg/dl (8.5-10.1) Magnesium Level 1.7 mg/dl (1.8-2.4) Allergies Coded Allergies: No Known Allergies (Unverified , 03/15/17) Medications Current Inpatient Medications Medications (Trade) Dose Ordered Sig/Jonathan Route Start Time Stop Time Status Last Admin Dose Admin Acetaminophen (Tylenol Tab) 650 mg Q4H PRN PO 03/15/17 14:15 05/10/17 14:14 Tamsulosin HCl (Flomax Cap) 0.8 mg HS PO 03/15/17 21:00 05/10/17 20:59 04/22/17 20:48 0.8 MG Miscellaneous Information (Order Awaiting Action) 1 ea QS N/A 03/15/17 16:00 05/10/17 15:59 Pantoprazole Sodium (Protonix Tab) 40 mg QAM PO 03/16/17 09:00 05/10/17 08:59 04/23/17 08:13 40 MG Ranitidine HCl (zANTac TAB) 300 mg HS PO 03/15/17 21:00 05/10/17 20:59 04/22/17 20:50 300 MG Polyethylene (Miralax Powder Packet) 17 gm DAILY PRN PO 03/15/17 15:00 05/10/17 14:59 Docusate Sodium (coLACE CAP) 100 mg BID PO 03/15/17 21:00 05/10/17 20:59 04/23/17 08:10 100 MG Bisacodyl (Dulcolax Supp) 10 mg DAILY PRN [place] 03/15/17 15:00 05/10/17 14:59 Heparin Sodium (Porcine) (Heparin Sq 5000 Unit/0.5ml) 5,000 unit Q12 SQ 03/15/17 21:00 05/10/17 20:59 04/22/17 20:56 5,000 UNIT Calcium Carbonate (Tums Chew Tab) 2,000 mg QID PO 03/16/17 17:00 05/10/17 16:59 04/23/17 08:13 2,000 MG Calcium Carbonate (oS-Randy 500 TAB) 1,250 mg QID PO 03/18/17 09:00 05/10/17 08:59 04/23/17 08:10 1,250 MG Miscellaneous (Tap Water Enema) 1 ea Q2D PRN [place] 03/18/17 13:30 05/10/17 13:29 Heparin Sodium (Porcine) (Heparin 10 Unit/ ml 5 ml Flush) 5 ml PRN PRN FLUSH 03/18/17 15:30 05/10/17 15:29 04/06/17 05:39 5 ML Heparin Sodium (Porcine) (Heparin 10 Unit/ ml 5 ml Flush) 5 ml PRN PRN FLUSH 03/29/17 11:00 04/28/17 10:59 04/20/17 05:50 5 ML Benzonatate (Tessalon Perles Cap) 100 mg TID PRN PO 04/08/17 10:45 05/08/17 10:44 04/10/17 20:37 100 MG Calcitriol (Rocaltrol Cap) 4 mcg QAM PO 04/11/17 08:00 05/11/17 07:59 04/23/17 08:09 4 MCG Potassium/ Phosphorus/Sodium (Phospha 250 Neutral 155-852-130 Mg) 2 tab QID PO 04/10/17 17:00 05/10/17 16:59 04/23/17 08:08 2 TAB Calcium Gluconate 99018 mg/Sodium Chloride 700 ml @ 70 mls/hr Q10H IV 04/22/17 15:00 05/22/17 14:59 04/23/17 02:40 70 MLS/HR Magnesium Sulfate 1 gm/Prmx 100 ml @ 100 mls/hr ONE ONCE IV 04/23/17 10:00 04/23/17 10:59 04/23/17 09:49 100 MLS/HR Impression (1) Hypocalcemia (2) Prostate cancer (3) Hypertension Mr. 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 He developed severe hypocalcemia following Denosumab infusion. Renal function is normal. He remains on tele monitor with normal QTc. 25OH D deficiency documented on presentation is being treated with ergocalciferol 84699 IU. Calcitriol is also being provided. The patient is taking PO calcium in the form of TUMs and Oscal. Aggressive replacement with PO and IV calcium continues. The patient has had associated hypomagnesemia. Hypomagnesemia treated with IV magnesium sulfate today. Recommendations -- IV calcium gluconate from 2 g/hr -- Continue Calcitriol 4 mcg daily, OsCal 2500 QID, TUMS 2 grams TID -- Monitor serum calcium daily and repeat serum magnesium and phosphorus tomorrow AM
--- NOTE | 2017-04-23 14:30 | Hospitalist Progress Note ---
Hospitalist Progress Note Date of Service Apr 23, 2017. (Callie Arvizu ., ALMA ROSA) Subjective Pt evaluation today including: conversation w/ patient, physical exam, chart review, lab review, review of inpatient medication list Mr. Greene has no complaints and feels well. He has been ambulating the halls ROS Constitutional: no chills, aches, sweats or fever Respiratory: no sob,cough, sputum, or wheezing Cardiac: no chest pain, palpitations, edema, orthopnea or lightheadedness GI: no abdominal pain, nausea, vomiting, diarrhea or constipation : no dysuria or hesitancy Extremities: no joint pain or weakness Skin: no rash All other systems reviewed and negative (Callie Arvizu CRNP) Medications Medications Administered Medications (Trade) Dose Ordered Sig/Jonathan Route Start Time Stop Time Status Last Admin Dose Admin Sodium Chloride 1,000 ml @ 125 mls/hr Q8H STAT IV 03/15/17 10:09 03/15/17 16:58 DC 03/15/17 13:23 125 MLS/HR Sodium Chloride 1,000 ml @ 999 mls/hr Q1H1M STAT IV 03/15/17 10:22 03/15/17 11:22 DC 03/15/17 10:22 999 MLS/HR Calcium Gluconate (Calcium Gluconate 10%) 1,000 mg NOW STAT IV 03/15/17 12:26 03/15/17 12:28 DC 03/15/17 12:48 1,000 MG Magnesium Sulfate (Magnesium Sulfate) 2 gm NOW STAT IV 03/15/17 12:26 03/15/17 12:28 DC 03/15/17 13:35 2 GM Ceftriaxone Sodium (Rocephin Inj) 1 gm NOW STAT IV 03/15/17 12:26 03/15/17 12:28 DC 03/15/17 13:22 1 GM Calcium Gluconate 1000 mg/Sodium Chloride 60 ml @ 240 mls/hr NOW STAT IV 03/15/17 16:06 03/15/17 16:20 DC 03/15/17 17:33 240 MLS/HR Tamsulosin HCl (Flomax Cap) 0.8 mg HS PO 03/15/17 21:00 05/10/17 20:59 04/22/17 20:48 0.8 MG Pantoprazole Sodium (Protonix Tab) 40 mg QAM PO 03/16/17 09:00 05/10/17 08:59 04/23/17 08:13 40 MG Ranitidine HCl (zANTac TAB) 300 mg HS PO 03/15/17 21:00 05/10/17 20:59 04/22/17 20:50 300 MG Ceftriaxone Sodium 1 gm/ Dextrose 50 ml @ 100 mls/hr Q24H IV 03/16/17 14:00 03/17/17 12:03 DC 03/16/17 13:03 100 MLS/HR Docusate Sodium (coLACE CAP) 100 mg BID PO 03/15/17 21:00 05/10/17 20:59 04/23/17 08:10 100 MG Heparin Sodium (Porcine) (Heparin Sq 5000 Unit/0.5ml) 5,000 unit Q12 SQ 03/15/17 21:00 05/10/17 20:59 04/22/17 20:56 5,000 UNIT Desonide (Desowen 0.05% Crm) 1 appln BID EXT 03/15/17 21:00 03/29/17 18:53 DC 03/29/17 08:17 1 APPLN Nystatin (Mycostatin Susp) 5 ml QID PO 03/15/17 17:00 03/25/17 16:59 DC 03/25/17 12:19 5 ML Nystatin (Mycostatin Powder) 1 appln BID EXT 03/15/17 21:00 04/14/17 20:59 DC 04/14/17 09:12 1 APPLN Ergocalciferol (Vitamin D Cap) 50,000 interunit NOW ONCE PO 03/15/17 17:00 03/15/17 17:01 DC 03/15/17 17:32 50,000 INTERUNIT Calcitriol (Rocaltrol Cap) 0.25 mcg 1700 ONCE PO 03/15/17 17:00 03/15/17 17:01 DC 03/15/17 17:31 0.25 MCG Calcium Carbonate (Tums Chew Tab) 1,000 mg NOW ONCE PO 03/15/17 17:00 03/15/17 17:01 DC 03/15/17 17:32 1,000 MG Calcium Carbonate (Tums Chew Tab) 1,000 mg QAM PO 03/16/17 09:00 03/16/17 09:00 DC 03/16/17 07:59 1,000 MG Sodium Phosphate 15 mmol/Sodium Chloride 255 ml @ 102 mls/hr 1800 ONCE IV 03/15/17 18:00 03/15/17 20:29 DC 03/15/17 18:50 102 MLS/HR Calcium Gluconate 2000 mg/Sodium Chloride 70 ml @ 240 mls/hr 2030 ONCE IV 03/15/17 20:30 03/15/17 20:47 DC 03/16/17 00:15 240 MLS/HR Calcium Gluconate 3000 mg/Sodium Chloride 80 ml @ 160 mls/hr NOW ONCE IV 03/16/17 02:00 03/16/17 02:29 DC 03/16/17 02:05 160 MLS/HR Magnesium Sulfate 1 gm/Prmx 100 ml @ 100 mls/hr TODAY@0800,0900 IV 03/16/17 08:00 03/16/17 09:59 DC 03/16/17 10:22 100 MLS/HR Calcium Carbonate (Tums Chew Tab) 1,000 mg QID PO 03/16/17 09:00 03/16/17 15:24 DC 03/16/17 13:03 1,000 MG Calcium Gluconate 2000 mg/Sodium Chloride 70 ml @ 240 mls/hr 1000 ONCE IV 03/16/17 10:00 03/16/17 10:17 DC 03/16/17 11:57 240 MLS/HR Calcium Carbonate (Tums Chew Tab) 2,000 mg QID PO 03/16/17 17:00 05/10/17 16:59 04/23/17 14:01 2,000 MG Potassium/ Phosphorus/Sodium (Phospha 250 Neutral 155-852-130 Mg) 1 tab QID PO 03/16/17 17:00 04/09/17 08:38 DC 04/08/17 21:15 1 TAB Sodium Phosphate 21 mmol/Sodium Chloride 507 ml @ 144 mls/hr ONE ONCE IV 03/16/17 15:30 03/16/17 19:01 DC 03/16/17 15:47 144 MLS/HR Calcium Gluconate 2000 mg/Sodium Chloride 70 ml @ 240 mls/hr NOW STAT IV 03/16/17 15:28 03/16/17 15:45 DC 03/16/17 15:47 240 MLS/HR Calcium Gluconate 1000 mg/Sodium Chloride 60 ml @ 240 mls/hr NOW STAT IV 03/16/17 17:12 03/16/17 17:26 DC 03/16/17 17:41 240 MLS/HR Calcium Gluconate 1000 mg/Sodium Chloride 60 ml @ 120 mls/hr NOW ONCE IV 03/16/17 19:45 03/16/17 20:14 DC 03/16/17 19:54 120 MLS/HR Calcium Gluconate 1000 mg/Sodium Chloride 60 ml @ 240 mls/hr NOW STAT IV 03/17/17 04:32 03/17/17 04:46 DC 03/17/17 04:51 240 MLS/HR Calcium Gluconate 3000 mg/Sodium Chloride 80 ml @ 160 mls/hr 0900 ONCE IV 03/17/17 09:00 03/17/17 09:29 DC 03/17/17 09:00 160 MLS/HR Magnesium Sulfate 1 gm/Prmx 100 ml @ 100 mls/hr 0930,1030 IV 03/17/17 09:30 03/17/17 11:29 DC 03/17/17 10:25 100 MLS/HR Cholecalciferol (Vitamin D Tab) 1,000 inter.unit QAM PO 03/18/17 09:00 03/18/17 09:00 DC 03/18/17 07:43 1,000 INTER.UNIT Cholecalciferol (Vitamin D Tab) 1,000 inter.unit 0942 ONCE PO 03/17/17 09:42 03/17/17 09:44 DC 03/17/17 10:22 1,000 INTER.UNIT Calcitriol (Rocaltrol Cap) 1 mcg NOW ONCE PO 03/17/17 09:45 03/17/17 09:55 DC 03/17/17 10:22 1 MCG Calcium Gluconate 3000 mg/Sodium Chloride 80 ml @ 160 mls/hr 1130 ONCE IV 03/17/17 11:30 03/17/17 11:59 DC 03/17/17 11:25 160 MLS/HR Cephalexin Monohydrate (Keflex Cap) 500 mg BID PO 03/17/17 13:00 03/17/17 19:12 DC 03/17/17 14:57 500 MG Calcium Gluconate 3000 mg/Sodium Chloride 80 ml @ 160 mls/hr 1500 ONCE IV 03/17/17 15:00 03/17/17 15:29 DC 03/17/17 14:59 160 MLS/HR Calcium Gluconate 3000 mg/Sodium Chloride 80 ml @ 240 mls/hr Q6H IV 03/17/17 22:00 03/18/17 08:45 DC 03/18/17 04:16 240 MLS/HR Calcium Gluconate 1000 mg/Sodium Chloride 60 ml @ 240 mls/hr NOW STAT IV 03/17/17 19:39 03/17/17 19:53 DC 03/17/17 20:32 240 MLS/HR Magnesium Sulfate 1 gm/Prmx 100 ml @ 100 mls/hr Q1H IV 03/18/17 09:30 03/18/17 11:29 DC 03/18/17 15:15 100 MLS/HR Cholecalciferol (Vitamin D Tab) 5,000 inter.unit QAM PO 03/18/17 09:00 03/26/17 12:23 DC 03/26/17 08:37 5,000 INTER.UNIT Calcitriol (Rocaltrol Cap) 1 mcg QAM PO 03/18/17 09:00 03/27/17 08:41 DC 03/27/17 07:56 1 MCG Calcium Gluconate 4000 mg/Sodium Chloride 90 ml @ 120 mls/hr 0900 ONCE IV 03/18/17 09:00 03/18/17 09:44 DC 03/18/17 08:54 120 MLS/HR Calcium Gluconate 4000 mg/Sodium Chloride 90 ml @ 120 mls/hr 1000 IV 03/18/17 10:00 03/18/17 11:00 DC 03/18/17 09:52 120 MLS/HR Calcium Carbonate (oS-Randy 500 TAB) 1,250 mg QID PO 03/18/17 09:00 05/10/17 08:59 04/23/17 14:01 1,250 MG Trimethoprim/ Sulfamethoxazole (Septra Ds 800/ 160MG Tab) 1 tab DAILY PO 03/19/17 09:00 03/29/17 08:59 DC 03/29/17 08:16 1 TAB Trimethoprim/ Sulfamethoxazole (Septra Ds 800/ 160MG Tab) 1 tab 1300 ONCE PO 03/18/17 13:00 03/18/17 13:01 DC 03/18/17 13:01 1 TAB Calcium Gluconate 3000 mg/Sodium Chloride 80 ml @ 160 mls/hr 1500 IV 03/18/17 15:00 03/18/17 15:29 DC 03/18/17 15:00 160 MLS/HR Heparin Sodium (Porcine) (Heparin 10 Unit/ ml 5 ml Flush) 5 ml PRN PRN FLUSH 03/18/17 15:30 05/10/17 15:29 04/06/17 05:39 5 ML Calcium Gluconate 4000 mg/Sodium Chloride 90 ml @ 120 mls/hr NOW STAT IV 03/18/17 21:35 03/18/17 22:19 DC 03/18/17 22:21 120 MLS/HR Calcium Gluconate 4000 mg/Sodium Chloride 90 ml @ 120 mls/hr ONE ONCE IV 03/19/17 00:00 03/19/17 00:44 DC 03/19/17 00:01 120 MLS/HR Calcium Gluconate 2000 mg/Sodium Chloride 70 ml @ 240 mls/hr 0800 ONCE IV 03/19/17 08:00 03/19/17 08:17 DC 03/19/17 08:48 240 MLS/HR Sodium Phosphate 15 mmol/Sodium Chloride 255 ml @ 88 mls/hr 0900 ONCE IV 03/19/17 09:00 03/19/17 11:53 DC 03/19/17 08:48 88 MLS/HR Amoxicillin (Amoxil Cap) 250 mg TID PO 03/19/17 21:00 03/24/17 20:59 DC 03/24/17 21:17 250 MG Amoxicillin (Amoxil Cap) 250 mg TODAY@1515 ONCE PO 03/19/17 15:15 03/19/17 15:23 DC 03/19/17 15:33 250 MG Calcium Gluconate 2000 mg/Sodium Chloride 70 ml @ 240 mls/hr NOW STAT IV 03/19/17 17:53 03/19/17 18:10 DC 03/19/17 18:12 240 MLS/HR Calcium Gluconate 2000 mg/Sodium Chloride 70 ml @ 140 mls/hr NOW ONCE IV 03/19/17 19:00 03/19/17 19:29 DC 03/19/17 19:23 140 MLS/HR Calcium Gluconate 4000 mg/Sodium Chloride 140 ml @ 140 mls/hr 0900 IV 03/20/17 09:00 03/20/17 12:00 DC 03/20/17 09:01 140 MLS/HR Magnesium Sulfate 1 gm/Prmx 100 ml @ 100 mls/hr Q1H IV 03/20/17 10:00 03/20/17 11:59 DC 03/20/17 11:13 100 MLS/HR Calcium Gluconate 4000 mg/Sodium Chloride 140 ml @ 140 mls/hr TODAY@1645 ONCE IV 03/20/17 16:45 03/20/17 17:44 DC 03/20/17 16:53 140 MLS/HR Calcium Gluconate 3000 mg/Dextrose 280 ml @ 125 mls/hr Q2H15M IV 03/21/17 10:30 03/21/17 12:44 DC 03/21/17 10:58 125 MLS/HR Calcium Gluconate 3000 mg/Sodium Chloride 80 ml @ 160 mls/hr 1630 ONCE IV 03/21/17 16:30 03/21/17 16:59 DC 03/21/17 16:36 160 MLS/HR Calcium Gluconate 4000 mg/Dextrose 290 ml @ 125 mls/hr Q24H IV 03/22/17 11:30 03/23/17 09:32 DC 03/22/17 12:32 125 MLS/HR Calcium Gluconate 4000 mg/Dextrose 290 ml @ 125 mls/hr Q2H20M ONCE IV 03/22/17 18:45 03/22/17 21:04 DC 03/22/17 19:16 125 MLS/HR Calcium Gluconate 4000 mg/Dextrose 290 ml @ 150 mls/hr Q1H56M IV 03/23/17 09:45 03/23/17 11:40 DC 03/23/17 10:22 150 MLS/HR Calcium Gluconate 4000 mg/Dextrose 290 ml @ 150 mls/hr Q1H56M ONCE IV 03/23/17 16:45 03/23/17 18:40 DC 03/23/17 17:00 150 MLS/HR Calcium Gluconate 4000 mg/Sodium Chloride 540 ml @ 125 mls/hr Q4H20M IV 03/24/17 09:45 03/25/17 09:44 DC 03/25/17 10:05 125 MLS/HR Calcium Gluconate 4000 mg/Sodium Chloride 540 ml @ 125 mls/hr Q4H20M IV 03/25/17 14:30 03/26/17 12:23 DC 03/26/17 09:59 125 MLS/HR Magnesium Sulfate 1 gm/Prmx 100 ml @ 100 mls/hr NOW STAT IV 03/26/17 14:41 03/26/17 15:40 DC 03/26/17 16:35 100 MLS/HR Calcitriol (Rocaltrol Cap) 2 mcg QAM PO 03/28/17 08:00 03/29/17 13:49 DC 03/29/17 08:15 2 MCG Calcium Gluconate 2000 mg/Sodium Chloride 520 ml @ 125 mls/hr Q4H10M IV 03/27/17 09:00 03/28/17 08:25 DC 03/28/17 05:36 125 MLS/HR Calcium Gluconate 00178 mg/Sodium Chloride 600 ml @ 60 mls/hr Q10H IV 03/28/17 09:00 03/29/17 08:58 DC 03/29/17 06:16 60 MLS/HR Potassium Phosphate 30 mmol/ Sodium Chloride 510 ml @ 88 mls/hr TODAY@1100 IV 03/29/17 11:00 03/29/17 16:48 DC 03/29/17 11:26 88 MLS/HR Heparin Sodium (Porcine) (Heparin 10 Unit/ ml 5 ml Flush) 5 ml PRN PRN FLUSH 03/29/17 11:00 04/28/17 10:59 04/20/17 05:50 5 ML Calcitriol (Rocaltrol Cap) 3 mcg QAM PO 03/30/17 08:00 04/10/17 12:17 DC 04/10/17 08:00 3 MCG Calcium Gluconate 2000 mg/Sodium Chloride 520 ml @ 125 mls/hr Q4H10M IV 03/29/17 16:30 03/31/17 15:59 DC 03/31/17 12:44 125 MLS/HR Magnesium Sulfate 1 gm/Prmx 100 ml @ 100 mls/hr Q1H IV 03/30/17 08:30 03/30/17 10:29 DC 03/30/17 11:49 100 MLS/HR Potassium Phosphate 15 mmol/ Sodium Chloride 255 ml @ 113.333 mls/hr ONE ONCE IV 03/30/17 08:30 03/30/17 10:44 DC 03/30/17 09:37 113.333 MLS/HR Hydrochlorothiazide (Hydrochlorothiazide Tab) 25 mg QAM PO 03/30/17 13:00 04/14/17 11:19 DC 04/14/17 08:08 25 MG Calcium Gluconate 3000 mg/Sodium Chloride 130 ml @ 260 mls/hr NOW STAT IV 03/31/17 07:13 03/31/17 07:42 DC 03/31/17 07:53 260 MLS/HR Sodium Phosphate 15 mmol/Sodium Chloride 255 ml @ 85 mls/hr NOW STAT IV 03/31/17 09:42 03/31/17 12:41 DC 03/31/17 11:10 85 MLS/HR Calcium Gluconate 4000 mg/Sodium Chloride 540 ml @ 125 mls/hr Q4H20M IV 03/31/17 17:00 04/01/17 11:19 DC 04/01/17 11:14 125 MLS/HR Calcium Gluconate 2000 mg/Sodium Chloride 520 ml @ 125 mls/hr Q4H10M IV 04/01/17 15:30 04/02/17 13:24 DC 04/02/17 12:36 125 MLS/HR Sodium Phosphate 9 mmol/Sodium Chloride 253 ml @ 88 mls/hr TODAY@1445 ONCE IV 04/01/17 14:45 04/01/17 17:37 DC 04/01/17 15:42 88 MLS/HR Nystatin (Mycostatin Susp) 5 ml QID PO 04/01/17 17:00 04/11/17 16:59 DC 04/11/17 11:55 5 ML Calcium Gluconate 4000 mg/Sodium Chloride 540 ml @ 125 mls/hr Q4H20M IV 04/03/17 08:30 04/03/17 12:49 DC 04/03/17 08:29 125 MLS/HR Magnesium Sulfate 1 gm/Prmx 100 ml @ 100 mls/hr Q1H IV 04/03/17 18:00 04/03/17 19:59 DC 04/03/17 19:02 100 MLS/HR Calcium Gluconate 4000 mg/Sodium Chloride 540 ml @ 125 mls/hr Q4H20M ONCE IV 04/03/17 18:00 04/03/17 22:19 DC 04/03/17 17:55 125 MLS/HR Calcium Gluconate 4000 mg/Sodium Chloride 540 ml @ 125 mls/hr Q4H20M IV 04/03/17 23:00 04/05/17 17:36 DC 04/05/17 15:30 125 MLS/HR Calcium Gluconate 4000 mg/Sodium Chloride 540 ml @ 125 mls/hr Q4H20M IV 04/06/17 09:15 04/10/17 12:24 DC 04/10/17 10:15 125 MLS/HR Magnesium Sulfate 1 gm/Prmx 100 ml @ 100 mls/hr Q1H IV 04/08/17 08:00 04/08/17 09:59 DC 04/08/17 09:10 100 MLS/HR Sodium Phosphate 15 mmol/Sodium Chloride 255 ml @ 88 mls/hr 1000 ONCE IV 04/08/17 10:00 04/08/17 12:53 DC 04/08/17 10:07 88 MLS/HR Benzonatate (Tessalon Perles Cap) 100 mg TID PRN PO 04/08/17 10:45 05/08/17 10:44 04/10/17 20:37 100 MG Potassium/ Phosphorus/Sodium (Phospha 250 Neutral 155-852-130 Mg) 2 tab QID PO 04/09/17 12:00 04/10/17 12:47 DC 04/10/17 11:37 2 TAB Sodium Phosphate 15 mmol/Sodium Chloride 255 ml @ 88 mls/hr ONE ONCE IV 04/09/17 09:00 04/09/17 11:53 DC 04/09/17 08:59 88 MLS/HR Calcitriol (Rocaltrol Cap) 4 mcg QAM PO 04/11/17 08:00 05/11/17 07:59 04/23/17 08:09 4 MCG Ergocalciferol (Vitamin D Cap) 50,000 interunit DAILY PO 04/11/17 08:00 04/23/17 07:59 DC 04/22/17 07:56 50,000 INTERUNIT Ergocalciferol (Vitamin D Cap) 50,000 interunit NOW ONCE PO 04/10/17 13:00 04/10/17 13:01 DC 04/10/17 13:03 50,000 INTERUNIT Calcium Gluconate 4000 mg/Sodium Chloride 140 ml @ 70 mls/hr Q2H IV 04/10/17 14:00 3/2/18 09:27 DC 04/13/17 09:01 70 MLS/HR Magnesium Sulfate 1 gm/Prmx 100 ml @ 100 mls/hr Q1H IV 04/10/17 13:00 04/10/17 14:59 DC 04/10/17 14:08 100 MLS/HR Potassium/ Phosphorus/Sodium (Phospha 250 Neutral 155-852-130 Mg) 2 tab QID PO 04/10/17 17:00 05/10/17 16:59 04/23/17 14:01 2 TAB Magnesium Sulfate 1 gm/Prmx 100 ml @ 100 mls/hr NOW STAT IV 04/11/17 11:22 04/11/17 12:21 DC 04/11/17 11:55 100 MLS/HR Sodium Phosphate 15 mmol/Sodium Chloride 255 ml @ 127.5 mls/ hr ONE ONCE IV 04/12/17 08:45 04/12/17 10:44 DC 04/12/17 09:21 127.5 MLS/HR Magnesium Sulfate 1 gm/Prmx 100 ml @ 100 mls/hr 0800 IV 04/13/17 08:00 04/13/17 10:00 DC 04/13/17 08:06 100 MLS/HR Magnesium Oxide (Mag-Ox Tab) 400 mg BID PO 04/13/17 09:00 04/16/17 08:59 DC 04/15/17 21:03 400 MG Calcium Gluconate 79254 mg/Sodium Chloride 700 ml @ 35 mls/hr Q10H IV 04/13/17 11:00 04/15/17 11:06 DC 04/14/17 17:11 35 MLS/HR Magnesium Sulfate 1 gm/Prmx 100 ml @ 100 mls/hr Q1H IV 04/13/17 12:30 04/13/17 14:29 DC 04/13/17 14:19 100 MLS/HR Calcium Gluconate 19630 mg/Sodium Chloride 700 ml @ 35 mls/hr Q20H IV 04/15/17 11:15 04/15/17 21:16 DC 04/15/17 11:30 35 MLS/HR Calcium Gluconate 07440 mg/Sodium Chloride 700 ml @ 70 mls/hr Q10H IV 04/15/17 21:30 04/21/17 10:44 DC 04/21/17 07:45 70 MLS/HR Calcium Gluconate 62612 mg/Sodium Chloride 600 ml @ 120 mls/hr Q5H IV 04/21/17 12:00 04/22/17 15:00 DC 04/22/17 15:04 120 MLS/HR Magnesium Sulfate 1 gm/Prmx 100 ml @ 100 mls/hr Q1H IV 04/22/17 08:15 04/22/17 10:14 DC 04/22/17 09:28 100 MLS/HR Calcium Gluconate 05900 mg/Sodium Chloride 700 ml @ 70 mls/hr Q10H IV 04/22/17 15:00 05/22/17 14:59 04/23/17 02:40 70 MLS/HR Magnesium Sulfate 1 gm/Prmx 100 ml @ 100 mls/hr ONE ONCE IV 04/23/17 10:00 04/23/17 10:59 DC 04/23/17 09:49 100 MLS/HR (Callie Arvizu, ALMA ROSA) Objective Vital Signs Date Time Temp Pulse Resp B/P (MAP) Pulse Ox O2 Delivery O2 Flow Rate FiO2 04/23/17 12:00 Room Air 04/23/17 11:35 36.6 84 20 119/69 (86) 97 04/23/17 08:00 96 Room Air 04/23/17 07:14 36.7 82 18 120/57 (78) 96 Room Air 04/23/17 04:17 36.5 83 18 160/83 (108) 98 Room Air 04/23/17 04:00 Room Air 04/23/17 00:00 Room Air 04/22/17 23:51 36.6 89 18 134/74 (94) 96 Room Air 04/22/17 20:09 36.8 92 18 120/69 (86) 97 Room Air 04/22/17 20:00 97 Room Air 04/22/17 16:00 97 Room Air 04/22/17 14:20 36.5 87 16 106/61 (76) 97.0 (Callie Arvizu CRNP) Physical Exam Notes: General: no distress Eyes: normal inspection, PERLL Respiratory: chest non tender, clear to auscultation, normal breath sounds, no respiratory distress, no accessory muscle use Cardiac: regular rate and rhythm, no rub or gallop, no murmur, no edema, no jvd GI/: active bowel sounds, no abd pain or tenderness, soft, non distended Extremities: normal range of motion, normal strength, non tender Neuro/Psych: alert and oriented x 3, normal mood and affect Skin: normal color, dry (Callie Arvizu CRNP) Laboratory Results Last 24 Hours Test 04/23/17 05:21 Calcium Level 9.2 mg/dl Magnesium Level 1.7 mg/dl (Callie Arvizu CRNP) Assessment and Plan Mr. Greene is an 81 year old man with a history of prostate cancer and osteoblastic mets that presented with fatigue and found to have severe hypocalcemia thought secondary to his Denosumab (03/02/2017). Hypocalcemia/hypophosphatemia - The patient has now been on 38 days of IV calcium and oral calcium therapy - Secondary to Denosumab injection in the setting of metastatic prostate CA - calcium yesterday was 7.7 after decreasing infusion rate to 1gm/hr for 12 hours so will go back to 2gm/h - Continue oral Calcium and Calcitriol - Vitamin D level low 03/15 but has been wnl since then - continue ergocalciferol supplementation - Nephrology consulted Hypomagnesemia/ Hypophosphatemia - Mag 1.7 today - replaced - Mag/phos tomorrow morning labs UTI; Stenotrophomonas and enterococcus; chronic bey - Bactrim/ Amoxil course completed (10 day course) --> Initially treated with Rocephin on admission - continue bey catheter Superficial thrombophlebitis of right arm- resolved - Ultrasound confirmation of superficial thrombus involving the cephalic vein - Avoid IV line in right UE - Warm compress Prostate Ca with mets to bone - patient continues to deny pain - continue tamsulosin and finasteride Intertrigo/thrush - resolved Seborrheic dermatitis - Completed 14 day course of Desonide for face - resolved CKD III stable - Avoid nephrotoxins where possible DVT Prophylaxis - Heparin subq bid Code Status - DNR (Callie Arvizu CRNP) Supervising Note Dr. Pardo I performed a history and physical examination on the patient. I reviewed above note and agree with it. I discussed plan with APC and patient. During my face to face encounter with the patient, I answered all of the patient's questions. Patient continues to require large amounts of calcium. As noted above, unable to titrate calcium needs down. Will continue to monitor. (Kenny Pardo M.D.)
[2017-04-23] MEDS: RANITIDINE HCL 150 MG TAB PO SCH (21:01)
[2017-04-23] MEDS: TAMSULOSIN HCL 0.4 MG CAP PO SCH (21:01)
[2017-04-24 00:14] VITALS: BP 119/71; PULSE 88; TEMP 36.9; O2SAT 95
[2017-04-24 04:00] VITALS: BP 111/66; PULSE 82; TEMP 36.5; O2SAT 96
[2017-04-24 06:27] LABS: PHOSPHORUS 2.8 mg/dl (2.5-4.9)
[2017-04-24 07:37] VITALS: BP 106/56; PULSE 78; TEMP 36.6; O2SAT 95
[2017-04-24] MEDS: SODIUM CHLORIDE 0.9% IV SCH ×2 (08:50→20:37)
[2017-04-24] MEDS: CALCIUM GLUCONATE IV SCH ×2 (08:50→20:37)
[2017-04-24] MEDS: PANTOprazole SOD 40 MG TAB PO SCH (08:51)
[2017-04-24] MEDS: CALCIUM CARBONATE 1250MG TAB PO SCH ×4 (08:51→20:40)
[2017-04-24] MEDS: CALCITRIOL 0.25 MCG CAP PO SCH (08:51)
[2017-04-24] MEDS: DOCUSATE SODIUM 100 MG CAP PO SCH ×2 (08:52→20:39)
[2017-04-24] MEDS: POT PHOSPHATE MONOBASIC W/ SOD TAB PO SCH ×4 (08:52→20:39)
[2017-04-24] MEDS: HEPARIN SOD 5000 UNIT/0.5 ML CARP SQ SCH ×2 (08:53→20:44)
[2017-04-24] MEDS: CALCIUM CARBONATE 500 MG CHEWABLE PO SCH ×4 (08:53→20:40)
[2017-04-24] MEDS: ERGOCALCIFEROL 50,000 INTER.UNIT CAP PO SCH (08:54)
--- NOTE | 2017-04-24 09:20 | Nephrology Progress Note ---
Nephrology Progress Note Date of Service Apr 24, 2017. Chief Complaint Hypocalcemia Subjective No acute events overnight. No complaints this morning. Paul feels well. Activity tolerance is good. He notes no interval changes. Appetite is good. Review of Systems A complete review of systems was performed. Pertinent positives are noted above. All other systems are negative. Vital Signs Last 8 Hrs Date Time Temp Pulse Resp B/P (MAP) Pulse Ox O2 Delivery O2 Flow Rate FiO2 04/24/17 08:00 Room Air 04/24/17 07:37 36.6 78 20 106/56 (73) 95 04/24/17 04:05 Room Air 04/24/17 04:00 36.5 82 18 111/66 (81) 96 Room Air Last Recorded Weight Weight (Kilograms): 64.000 Physical Exam General Appearance: WD/WN, no apparent distress Head: normocephalic, atraumatic Eyes: normal inspection, sclerae normal ENT: normal ENT inspection, pharynx normal Neck: supple, no JVD Respiratory/Chest: lungs clear, no respiratory distress, no accessory muscle use Cardiovascular: regular rate, rhythm, no murmur Back: no CVA tenderness Abdomen/GI: non tender, soft Extremities/Musculoskelatal: normal inspection, no pedal edema Neurologic/Psych: alert, normal mood/affect Social History Drug Use: none Marital Status: Housing Status: lives with family (lives with son) 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 04/24/17 05:20 Calcium Level 9.0 mg/dl (8.5-10.1) Phosphorus Level 2.8 mg/dl (2.5-4.9) Magnesium Level 1.8 mg/dl (1.8-2.4) Allergies Coded Allergies: No Known Allergies (Unverified , 03/15/17) Medications Current Inpatient Medications Medications (Trade) Dose Ordered Sig/Jonathan Route Start Time Stop Time Status Last Admin Dose Admin Acetaminophen (Tylenol Tab) 650 mg Q4H PRN PO 03/15/17 14:15 05/10/17 14:14 Tamsulosin HCl (Flomax Cap) 0.8 mg HS PO 03/15/17 21:00 05/10/17 20:59 04/23/17 21:01 0.8 MG Miscellaneous Information (Order Awaiting Action) 1 ea QS N/A 03/15/17 16:00 05/10/17 15:59 Pantoprazole Sodium (Protonix Tab) 40 mg QAM PO 03/16/17 09:00 05/10/17 08:59 04/24/17 08:51 40 MG Ranitidine HCl (zANTac TAB) 300 mg HS PO 03/15/17 21:00 05/10/17 20:59 04/23/17 21:01 300 MG Polyethylene (Miralax Powder Packet) 17 gm DAILY PRN PO 03/15/17 15:00 05/10/17 14:59 Docusate Sodium (coLACE CAP) 100 mg BID PO 03/15/17 21:00 05/10/17 20:59 04/23/17 21:01 100 MG Bisacodyl (Dulcolax Supp) 10 mg DAILY PRN NM 03/15/17 15:00 05/10/17 14:59 Heparin Sodium (Porcine) (Heparin Sq 5000 Unit/0.5ml) 5,000 unit Q12 SQ 03/15/17 21:00 05/10/17 20:59 04/23/17 21:05 5,000 UNIT Calcium Carbonate (Tums Chew Tab) 2,000 mg QID PO 03/16/17 17:00 05/10/17 16:59 04/24/17 08:53 2,000 MG Calcium Carbonate (oS-Randy 500 TAB) 1,250 mg QID PO 03/18/17 09:00 05/10/17 08:59 04/24/17 08:51 1,250 MG Miscellaneous (Tap Water Enema) 1 ea Q2D PRN NM 03/18/17 13:30 05/10/17 13:29 Heparin Sodium (Porcine) (Heparin 10 Unit/ ml 5 ml Flush) 5 ml PRN PRN FLUSH 03/18/17 15:30 05/10/17 15:29 04/06/17 05:39 5 ML Heparin Sodium (Porcine) (Heparin 10 Unit/ ml 5 ml Flush) 5 ml PRN PRN FLUSH 03/29/17 11:00 04/28/17 10:59 04/20/17 05:50 5 ML Benzonatate (Tessalon Perles Cap) 100 mg TID PRN PO 04/08/17 10:45 05/08/17 10:44 04/10/17 20:37 100 MG Calcitriol (Rocaltrol Cap) 4 mcg QAM PO 04/11/17 08:00 05/11/17 07:59 04/24/17 08:51 4 MCG Potassium/ Phosphorus/Sodium (Phospha 250 Neutral 155-852-130 Mg) 2 tab QID PO 04/10/17 17:00 05/10/17 16:59 04/24/17 08:52 2 TAB Calcium Gluconate 66192 mg/Sodium Chloride 700 ml @ 70 mls/hr Q10H IV 04/22/17 15:00 05/22/17 14:59 04/24/17 08:50 70 MLS/HR Ergocalciferol (Vitamin D Cap) 50,000 interunit DAILY PO 04/24/17 09:00 05/24/17 08:59 04/24/17 08:54 50,000 INTERUNIT Impression (1) Hypocalcemia (2) Prostate cancer (3) Hypertension Mr. 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 He developed severe hypocalcemia following Denosumab infusion. Renal function is normal. He remains on tele monitor with normal QTc. 25OH D deficiency documented on presentation is being treated with ergocalciferol 38894 IU. Calcitriol is also being provided. The patient is taking PO calcium in the form of TUMs and Oscal. Aggressive replacement with PO and IV calcium continues. The patient has had associated hypomagnesemia. Hypomagnesemia treated with IV magnesium sulfate today. Recommendations -- IV calcium gluconate from 2 g/hr -- Continue Calcitriol 4 mcg daily, OsCal 2500 QID, TUMS 2 grams TID -- Monitor serum calcium daily
[2017-04-24 11:23] VITALS: BP 91/57; PULSE 90; TEMP 36.8; O2SAT 95
--- NOTE | 2017-04-24 13:01 | Hospitalist Progress Note ---
Hospitalist Progress Note Date of Service Apr 24, 2017. (Callie Arvizu ., [facility]) Subjective Pt evaluation today including: conversation w/ patient, physical exam, chart review Voiding: no voiding problems Mr. Greene feels well today. He has no complaints. He has been ambulating the halls ROS Constitutional: no chills, aches, sweats or fever Respiratory: no sob,cough, sputum, or wheezing Cardiac: no chest pain, palpitations, edema, orthopnea or lightheadedness GI: no abdominal pain, nausea, vomiting, diarrhea or constipation : no dysuria or hesitancy Extremities: no joint pain or weakness Skin: no rash All other systems reviewed and negative (Callie Arvizu CRNP) Medications Medications Administered Medications (Trade) Dose Ordered Sig/Jonathan Route Start Time Stop Time Status Last Admin Dose Admin Sodium Chloride 1,000 ml @ 125 mls/hr Q8H STAT IV 03/15/17 10:09 03/15/17 16:58 DC 03/15/17 13:23 125 MLS/HR Sodium Chloride 1,000 ml @ 999 mls/hr Q1H1M STAT IV 03/15/17 10:22 03/15/17 11:22 DC 03/15/17 10:22 999 MLS/HR Calcium Gluconate (Calcium Gluconate 10%) 1,000 mg NOW STAT IV 03/15/17 12:26 03/15/17 12:28 DC 03/15/17 12:48 1,000 MG Magnesium Sulfate (Magnesium Sulfate) 2 gm NOW STAT IV 03/15/17 12:26 03/15/17 12:28 DC 03/15/17 13:35 2 GM Ceftriaxone Sodium (Rocephin Inj) 1 gm NOW STAT IV 03/15/17 12:26 03/15/17 12:28 DC 03/15/17 13:22 1 GM Calcium Gluconate 1000 mg/Sodium Chloride 60 ml @ 240 mls/hr NOW STAT IV 03/15/17 16:06 03/15/17 16:20 DC 03/15/17 17:33 240 MLS/HR Tamsulosin HCl (Flomax Cap) 0.8 mg HS PO 03/15/17 21:00 05/10/17 20:59 04/23/17 21:01 0.8 MG Pantoprazole Sodium (Protonix Tab) 40 mg QAM PO 03/16/17 09:00 05/10/17 08:59 04/24/17 08:51 40 MG Ranitidine HCl (zANTac TAB) 300 mg HS PO 03/15/17 21:00 05/10/17 20:59 04/23/17 21:01 300 MG Ceftriaxone Sodium 1 gm/ Dextrose 50 ml @ 100 mls/hr Q24H IV 03/16/17 14:00 03/17/17 12:03 DC 03/16/17 13:03 100 MLS/HR Docusate Sodium (coLACE CAP) 100 mg BID PO 03/15/17 21:00 05/10/17 20:59 04/23/17 21:01 100 MG Heparin Sodium (Porcine) (Heparin Sq 5000 Unit/0.5ml) 5,000 unit Q12 SQ 03/15/17 21:00 05/10/17 20:59 04/23/17 21:05 5,000 UNIT Desonide (Desowen 0.05% Crm) 1 appln BID EXT 03/15/17 21:00 03/29/17 18:53 DC 03/29/17 08:17 1 APPLN Nystatin (Mycostatin Susp) 5 ml QID PO 03/15/17 17:00 03/25/17 16:59 DC 03/25/17 12:19 5 ML Nystatin (Mycostatin Powder) 1 appln BID EXT 03/15/17 21:00 04/14/17 20:59 DC 04/14/17 09:12 1 APPLN Ergocalciferol (Vitamin D Cap) 50,000 interunit NOW ONCE PO 03/15/17 17:00 03/15/17 17:01 DC 03/15/17 17:32 50,000 INTERUNIT Calcitriol (Rocaltrol Cap) 0.25 mcg 1700 ONCE PO 03/15/17 17:00 03/15/17 17:01 DC 03/15/17 17:31 0.25 MCG Calcium Carbonate (Tums Chew Tab) 1,000 mg NOW ONCE PO 03/15/17 17:00 03/15/17 17:01 DC 03/15/17 17:32 1,000 MG Calcium Carbonate (Tums Chew Tab) 1,000 mg QAM PO 03/16/17 09:00 03/16/17 09:00 DC 03/16/17 07:59 1,000 MG Sodium Phosphate 15 mmol/Sodium Chloride 255 ml @ 102 mls/hr 1800 ONCE IV 03/15/17 18:00 03/15/17 20:29 DC 03/15/17 18:50 102 MLS/HR Calcium Gluconate 2000 mg/Sodium Chloride 70 ml @ 240 mls/hr 2030 ONCE IV 03/15/17 20:30 03/15/17 20:47 DC 03/16/17 00:15 240 MLS/HR Calcium Gluconate 3000 mg/Sodium Chloride 80 ml @ 160 mls/hr NOW ONCE IV 03/16/17 02:00 03/16/17 02:29 DC 03/16/17 02:05 160 MLS/HR Magnesium Sulfate 1 gm/Prmx 100 ml @ 100 mls/hr TODAY@0800,0900 IV 03/16/17 08:00 03/16/17 09:59 DC 03/16/17 10:22 100 MLS/HR Calcium Carbonate (Tums Chew Tab) 1,000 mg QID PO 03/16/17 09:00 03/16/17 15:24 DC 03/16/17 13:03 1,000 MG Calcium Gluconate 2000 mg/Sodium Chloride 70 ml @ 240 mls/hr 1000 ONCE IV 03/16/17 10:00 03/16/17 10:17 DC 03/16/17 11:57 240 MLS/HR Calcium Carbonate (Tums Chew Tab) 2,000 mg QID PO 03/16/17 17:00 05/10/17 16:59 04/24/17 08:53 2,000 MG Potassium/ Phosphorus/Sodium (Phospha 250 Neutral 155-852-130 Mg) 1 tab QID PO 03/16/17 17:00 04/09/17 08:38 DC 04/08/17 21:15 1 TAB Sodium Phosphate 21 mmol/Sodium Chloride 507 ml @ 144 mls/hr ONE ONCE IV 03/16/17 15:30 03/16/17 19:01 DC 03/16/17 15:47 144 MLS/HR Calcium Gluconate 2000 mg/Sodium Chloride 70 ml @ 240 mls/hr NOW STAT IV 03/16/17 15:28 03/16/17 15:45 DC 03/16/17 15:47 240 MLS/HR Calcium Gluconate 1000 mg/Sodium Chloride 60 ml @ 240 mls/hr NOW STAT IV 03/16/17 17:12 03/16/17 17:26 DC 03/16/17 17:41 240 MLS/HR Calcium Gluconate 1000 mg/Sodium Chloride 60 ml @ 120 mls/hr NOW ONCE IV 03/16/17 19:45 03/16/17 20:14 DC 03/16/17 19:54 120 MLS/HR Calcium Gluconate 1000 mg/Sodium Chloride 60 ml @ 240 mls/hr NOW STAT IV 03/17/17 04:32 03/17/17 04:46 DC 03/17/17 04:51 240 MLS/HR Calcium Gluconate 3000 mg/Sodium Chloride 80 ml @ 160 mls/hr 0900 ONCE IV 03/17/17 09:00 03/17/17 09:29 DC 03/17/17 09:00 160 MLS/HR Magnesium Sulfate 1 gm/Prmx 100 ml @ 100 mls/hr 0930,1030 IV 03/17/17 09:30 03/17/17 11:29 DC 03/17/17 10:25 100 MLS/HR Cholecalciferol (Vitamin D Tab) 1,000 inter.unit QAM PO 03/18/17 09:00 03/18/17 09:00 DC 03/18/17 07:43 1,000 INTER.UNIT Cholecalciferol (Vitamin D Tab) 1,000 inter.unit 0942 ONCE PO 03/17/17 09:42 03/17/17 09:44 DC 03/17/17 10:22 1,000 INTER.UNIT Calcitriol (Rocaltrol Cap) 1 mcg NOW ONCE PO 03/17/17 09:45 03/17/17 09:55 DC 03/17/17 10:22 1 MCG Calcium Gluconate 3000 mg/Sodium Chloride 80 ml @ 160 mls/hr 1130 ONCE IV 03/17/17 11:30 03/17/17 11:59 DC 03/17/17 11:25 160 MLS/HR Cephalexin Monohydrate (Keflex Cap) 500 mg BID PO 03/17/17 13:00 03/17/17 19:12 DC 03/17/17 14:57 500 MG Calcium Gluconate 3000 mg/Sodium Chloride 80 ml @ 160 mls/hr 1500 ONCE IV 03/17/17 15:00 03/17/17 15:29 DC 03/17/17 14:59 160 MLS/HR Calcium Gluconate 3000 mg/Sodium Chloride 80 ml @ 240 mls/hr Q6H IV 03/17/17 22:00 03/18/17 08:45 DC 03/18/17 04:16 240 MLS/HR Calcium Gluconate 1000 mg/Sodium Chloride 60 ml @ 240 mls/hr NOW STAT IV 03/17/17 19:39 03/17/17 19:53 DC 03/17/17 20:32 240 MLS/HR Magnesium Sulfate 1 gm/Prmx 100 ml @ 100 mls/hr Q1H IV 03/18/17 09:30 03/18/17 11:29 DC 03/18/17 15:15 100 MLS/HR Cholecalciferol (Vitamin D Tab) 5,000 inter.unit QAM PO 03/18/17 09:00 03/26/17 12:23 DC 03/26/17 08:37 5,000 INTER.UNIT Calcitriol (Rocaltrol Cap) 1 mcg QAM PO 03/18/17 09:00 03/27/17 08:41 DC 03/27/17 07:56 1 MCG Calcium Gluconate 4000 mg/Sodium Chloride 90 ml @ 120 mls/hr 0900 ONCE IV 03/18/17 09:00 03/18/17 09:44 DC 03/18/17 08:54 120 MLS/HR Calcium Gluconate 4000 mg/Sodium Chloride 90 ml @ 120 mls/hr 1000 IV 03/18/17 10:00 03/18/17 11:00 DC 03/18/17 09:52 120 MLS/HR Calcium Carbonate (oS-Randy 500 TAB) 1,250 mg QID PO 03/18/17 09:00 05/10/17 08:59 04/24/17 08:51 1,250 MG Trimethoprim/ Sulfamethoxazole (Septra Ds 800/ 160MG Tab) 1 tab DAILY PO 03/19/17 09:00 03/29/17 08:59 DC 03/29/17 08:16 1 TAB Trimethoprim/ Sulfamethoxazole (Septra Ds 800/ 160MG Tab) 1 tab 1300 ONCE PO 03/18/17 13:00 03/18/17 13:01 DC 03/18/17 13:01 1 TAB Calcium Gluconate 3000 mg/Sodium Chloride 80 ml @ 160 mls/hr 1500 IV 03/18/17 15:00 03/18/17 15:29 DC 03/18/17 15:00 160 MLS/HR Heparin Sodium (Porcine) (Heparin 10 Unit/ ml 5 ml Flush) 5 ml PRN PRN FLUSH 03/18/17 15:30 05/10/17 15:29 04/06/17 05:39 5 ML Calcium Gluconate 4000 mg/Sodium Chloride 90 ml @ 120 mls/hr NOW STAT IV 03/18/17 21:35 03/18/17 22:19 DC 03/18/17 22:21 120 MLS/HR Calcium Gluconate 4000 mg/Sodium Chloride 90 ml @ 120 mls/hr ONE ONCE IV 03/19/17 00:00 03/19/17 00:44 DC 03/19/17 00:01 120 MLS/HR Calcium Gluconate 2000 mg/Sodium Chloride 70 ml @ 240 mls/hr 0800 ONCE IV 03/19/17 08:00 03/19/17 08:17 DC 03/19/17 08:48 240 MLS/HR Sodium Phosphate 15 mmol/Sodium Chloride 255 ml @ 88 mls/hr 0900 ONCE IV 03/19/17 09:00 03/19/17 11:53 DC 03/19/17 08:48 88 MLS/HR Amoxicillin (Amoxil Cap) 250 mg TID PO 03/19/17 21:00 03/24/17 20:59 DC 03/24/17 21:17 250 MG Amoxicillin (Amoxil Cap) 250 mg TODAY@1515 ONCE PO 03/19/17 15:15 03/19/17 15:23 DC 03/19/17 15:33 250 MG Calcium Gluconate 2000 mg/Sodium Chloride 70 ml @ 240 mls/hr NOW STAT IV 03/19/17 17:53 03/19/17 18:10 DC 03/19/17 18:12 240 MLS/HR Calcium Gluconate 2000 mg/Sodium Chloride 70 ml @ 140 mls/hr NOW ONCE IV 03/19/17 19:00 03/19/17 19:29 DC 03/19/17 19:23 140 MLS/HR Calcium Gluconate 4000 mg/Sodium Chloride 140 ml @ 140 mls/hr 0900 IV 03/20/17 09:00 03/20/17 12:00 DC 03/20/17 09:01 140 MLS/HR Magnesium Sulfate 1 gm/Prmx 100 ml @ 100 mls/hr Q1H IV 03/20/17 10:00 03/20/17 11:59 DC 03/20/17 11:13 100 MLS/HR Calcium Gluconate 4000 mg/Sodium Chloride 140 ml @ 140 mls/hr TODAY@1645 ONCE IV 03/20/17 16:45 03/20/17 17:44 DC 03/20/17 16:53 140 MLS/HR Calcium Gluconate 3000 mg/Dextrose 280 ml @ 125 mls/hr Q2H15M IV 03/21/17 10:30 03/21/17 12:44 DC 03/21/17 10:58 125 MLS/HR Calcium Gluconate 3000 mg/Sodium Chloride 80 ml @ 160 mls/hr 1630 ONCE IV 03/21/17 16:30 03/21/17 16:59 DC 03/21/17 16:36 160 MLS/HR Calcium Gluconate 4000 mg/Dextrose 290 ml @ 125 mls/hr Q24H IV 03/22/17 11:30 03/23/17 09:32 DC 03/22/17 12:32 125 MLS/HR Calcium Gluconate 4000 mg/Dextrose 290 ml @ 125 mls/hr Q2H20M ONCE IV 03/22/17 18:45 03/22/17 21:04 DC 03/22/17 19:16 125 MLS/HR Calcium Gluconate 4000 mg/Dextrose 290 ml @ 150 mls/hr Q1H56M IV 03/23/17 09:45 03/23/17 11:40 DC 03/23/17 10:22 150 MLS/HR Calcium Gluconate 4000 mg/Dextrose 290 ml @ 150 mls/hr Q1H56M ONCE IV 03/23/17 16:45 03/23/17 18:40 DC 03/23/17 17:00 150 MLS/HR Calcium Gluconate 4000 mg/Sodium Chloride 540 ml @ 125 mls/hr Q4H20M IV 03/24/17 09:45 03/25/17 09:44 DC 03/25/17 10:05 125 MLS/HR Calcium Gluconate 4000 mg/Sodium Chloride 540 ml @ 125 mls/hr Q4H20M IV 03/25/17 14:30 2/12/18 12:23 DC 03/26/17 09:59 125 MLS/HR Magnesium Sulfate 1 gm/Prmx 100 ml @ 100 mls/hr NOW STAT IV 03/26/17 14:41 03/26/17 15:40 DC 03/26/17 16:35 100 MLS/HR Calcitriol (Rocaltrol Cap) 2 mcg QAM PO 03/28/17 08:00 03/29/17 13:49 DC 03/29/17 08:15 2 MCG Calcium Gluconate 2000 mg/Sodium Chloride 520 ml @ 125 mls/hr Q4H10M IV 03/27/17 09:00 03/28/17 08:25 DC 03/28/17 05:36 125 MLS/HR Calcium Gluconate 63076 mg/Sodium Chloride 600 ml @ 60 mls/hr Q10H IV 03/28/17 09:00 03/29/17 08:58 DC 03/29/17 06:16 60 MLS/HR Potassium Phosphate 30 mmol/ Sodium Chloride 510 ml @ 88 mls/hr TODAY@1100 IV 03/29/17 11:00 03/29/17 16:48 DC 03/29/17 11:26 88 MLS/HR Heparin Sodium (Porcine) (Heparin 10 Unit/ ml 5 ml Flush) 5 ml PRN PRN FLUSH 03/29/17 11:00 04/28/17 10:59 04/20/17 05:50 5 ML Calcitriol (Rocaltrol Cap) 3 mcg QAM PO 03/30/17 08:00 04/10/17 12:17 DC 04/10/17 08:00 3 MCG Calcium Gluconate 2000 mg/Sodium Chloride 520 ml @ 125 mls/hr Q4H10M IV 03/29/17 16:30 03/31/17 15:59 DC 03/31/17 12:44 125 MLS/HR Magnesium Sulfate 1 gm/Prmx 100 ml @ 100 mls/hr Q1H IV 03/30/17 08:30 03/30/17 10:29 DC 03/30/17 11:49 100 MLS/HR Potassium Phosphate 15 mmol/ Sodium Chloride 255 ml @ 113.333 mls/hr ONE ONCE IV 03/30/17 08:30 03/30/17 10:44 DC 03/30/17 09:37 113.333 MLS/HR Hydrochlorothiazide (Hydrochlorothiazide Tab) 25 mg QAM PO 03/30/17 13:00 04/14/17 11:19 DC 04/14/17 08:08 25 MG Calcium Gluconate 3000 mg/Sodium Chloride 130 ml @ 260 mls/hr NOW STAT IV 03/31/17 07:13 03/31/17 07:42 DC 03/31/17 07:53 260 MLS/HR Sodium Phosphate 15 mmol/Sodium Chloride 255 ml @ 85 mls/hr NOW STAT IV 03/31/17 09:42 03/31/17 12:41 DC 03/31/17 11:10 85 MLS/HR Calcium Gluconate 4000 mg/Sodium Chloride 540 ml @ 125 mls/hr Q4H20M IV 03/31/17 17:00 04/01/17 11:19 DC 04/01/17 11:14 125 MLS/HR Calcium Gluconate 2000 mg/Sodium Chloride 520 ml @ 125 mls/hr Q4H10M IV 04/01/17 15:30 04/02/17 13:24 DC 04/02/17 12:36 125 MLS/HR Sodium Phosphate 9 mmol/Sodium Chloride 253 ml @ 88 mls/hr TODAY@1445 ONCE IV 04/01/17 14:45 04/01/17 17:37 DC 04/01/17 15:42 88 MLS/HR Nystatin (Mycostatin Susp) 5 ml QID PO 04/01/17 17:00 04/11/17 16:59 DC 04/11/17 11:55 5 ML Calcium Gluconate 4000 mg/Sodium Chloride 540 ml @ 125 mls/hr Q4H20M IV 04/03/17 08:30 04/03/17 12:49 DC 04/03/17 08:29 125 MLS/HR Magnesium Sulfate 1 gm/Prmx 100 ml @ 100 mls/hr Q1H IV 04/03/17 18:00 04/03/17 19:59 DC 04/03/17 19:02 100 MLS/HR Calcium Gluconate 4000 mg/Sodium Chloride 540 ml @ 125 mls/hr Q4H20M ONCE IV 04/03/17 18:00 04/03/17 22:19 DC 04/03/17 17:55 125 MLS/HR Calcium Gluconate 4000 mg/Sodium Chloride 540 ml @ 125 mls/hr Q4H20M IV 04/03/17 23:00 04/05/17 17:36 DC 04/05/17 15:30 125 MLS/HR Calcium Gluconate 4000 mg/Sodium Chloride 540 ml @ 125 mls/hr Q4H20M IV 04/06/17 09:15 04/10/17 12:24 DC 04/10/17 10:15 125 MLS/HR Magnesium Sulfate 1 gm/Prmx 100 ml @ 100 mls/hr Q1H IV 04/08/17 08:00 04/08/17 09:59 DC 04/08/17 09:10 100 MLS/HR Sodium Phosphate 15 mmol/Sodium Chloride 255 ml @ 88 mls/hr 1000 ONCE IV 04/08/17 10:00 04/08/17 12:53 DC 04/08/17 10:07 88 MLS/HR Benzonatate (Tessalon Perles Cap) 100 mg TID PRN PO 04/08/17 10:45 05/08/17 10:44 04/10/17 20:37 100 MG Potassium/ Phosphorus/Sodium (Phospha 250 Neutral 155-852-130 Mg) 2 tab QID PO 04/09/17 12:00 04/10/17 12:47 DC 04/10/17 11:37 2 TAB Sodium Phosphate 15 mmol/Sodium Chloride 255 ml @ 88 mls/hr ONE ONCE IV 04/09/17 09:00 04/09/17 11:53 DC 04/09/17 08:59 88 MLS/HR Calcitriol (Rocaltrol Cap) 4 mcg QAM PO 04/11/17 08:00 05/11/17 07:59 04/24/17 08:51 4 MCG Ergocalciferol (Vitamin D Cap) 50,000 interunit DAILY PO 04/11/17 08:00 04/23/17 07:59 DC 04/22/17 07:56 50,000 INTERUNIT Ergocalciferol (Vitamin D Cap) 50,000 interunit NOW ONCE PO 04/10/17 13:00 04/10/17 13:01 DC 04/10/17 13:03 50,000 INTERUNIT Calcium Gluconate 4000 mg/Sodium Chloride 140 ml @ 70 mls/hr Q2H IV 04/10/17 14:00 04/13/17 09:27 DC 04/13/17 09:01 70 MLS/HR Magnesium Sulfate 1 gm/Prmx 100 ml @ 100 mls/hr Q1H IV 04/10/17 13:00 04/10/17 14:59 DC 04/10/17 14:08 100 MLS/HR Potassium/ Phosphorus/Sodium (Phospha 250 Neutral 155-852-130 Mg) 2 tab QID PO 04/10/17 17:00 05/10/17 16:59 04/24/17 08:52 2 TAB Magnesium Sulfate 1 gm/Prmx 100 ml @ 100 mls/hr NOW STAT IV 04/11/17 11:22 04/11/17 12:21 DC 04/11/17 11:55 100 MLS/HR Sodium Phosphate 15 mmol/Sodium Chloride 255 ml @ 127.5 mls/ hr ONE ONCE IV 04/12/17 08:45 04/12/17 10:44 DC 04/12/17 09:21 127.5 MLS/HR Magnesium Sulfate 1 gm/Prmx 100 ml @ 100 mls/hr 0800 IV 04/13/17 08:00 04/13/17 10:00 DC 04/13/17 08:06 100 MLS/HR Magnesium Oxide (Mag-Ox Tab) 400 mg BID PO 04/13/17 09:00 04/16/17 08:59 DC 04/15/17 21:03 400 MG Calcium Gluconate 33834 mg/Sodium Chloride 700 ml @ 35 mls/hr Q10H IV 04/13/17 11:00 04/15/17 11:06 DC 04/14/17 17:11 35 MLS/HR Magnesium Sulfate 1 gm/Prmx 100 ml @ 100 mls/hr Q1H IV 04/13/17 12:30 04/13/17 14:29 DC 04/13/17 14:19 100 MLS/HR Calcium Gluconate 29735 mg/Sodium Chloride 700 ml @ 35 mls/hr Q20H IV 04/15/17 11:15 04/15/17 21:16 DC 04/15/17 11:30 35 MLS/HR Calcium Gluconate 20754 mg/Sodium Chloride 700 ml @ 70 mls/hr Q10H IV 04/15/17 21:30 04/21/17 10:44 DC 04/21/17 07:45 70 MLS/HR Calcium Gluconate 29371 mg/Sodium Chloride 600 ml @ 120 mls/hr Q5H IV 04/21/17 12:00 04/22/17 15:00 DC 04/22/17 15:04 120 MLS/HR Magnesium Sulfate 1 gm/Prmx 100 ml @ 100 mls/hr Q1H IV 04/22/17 08:15 04/22/17 10:14 DC 04/22/17 09:28 100 MLS/HR Calcium Gluconate 28875 mg/Sodium Chloride 700 ml @ 70 mls/hr Q10H IV 04/22/17 15:00 05/22/17 14:59 04/24/17 08:50 70 MLS/HR Magnesium Sulfate 1 gm/Prmx 100 ml @ 100 mls/hr ONE ONCE IV 04/23/17 10:00 04/23/17 10:59 DC 04/23/17 09:49 100 MLS/HR Ergocalciferol (Vitamin D Cap) 50,000 interunit DAILY PO 04/24/17 09:00 05/24/17 08:59 04/24/17 08:54 50,000 INTERUNIT (Callie Arvizu CRNP) Objective Vital Signs Date Time Temp Pulse Resp B/P (MAP) Pulse Ox O2 Delivery O2 Flow Rate FiO2 04/24/17 11:23 36.8 90 18 91/57 (68) 95 04/24/17 08:00 Room Air 04/24/17 07:37 36.6 78 20 106/56 (73) 95 04/24/17 04:05 Room Air 04/24/17 04:00 36.5 82 18 111/66 (81) 96 Room Air 04/24/17 00:14 36.9 88 18 119/71 (87) 95 Room Air 04/24/17 00:00 Room Air 04/23/17 20:03 96 Room Air 04/23/17 19:33 36.6 99 18 104/62 (76) 95 Room Air 04/23/17 16:04 96 Room Air 04/23/17 15:20 36.7 91 18 105/53 (70) 96 (Callie Arvizu CRNP) Physical Exam Notes: General: no distress Eyes: normal inspection, PERLL Respiratory: chest non tender, clear to auscultation, normal breath sounds, no respiratory distress, no accessory muscle use Cardiac: regular rate and rhythm, no rub or gallop, no murmur, no edema, no jvd GI/: active bowel sounds, no abd pain or tenderness, soft, non distended Extremities: normal range of motion, normal strength, non tender Neuro/Psych: alert and oriented x 3, normal mood and affect Skin: normal color, dry (Callie Arvizu CRNP) Laboratory Results Last 24 Hours Test 04/24/17 05:20 Calcium Level 9.0 mg/dl Phosphorus Level 2.8 mg/dl Magnesium Level 1.8 mg/dl (Callie Arvizu CRNP) Assessment and Plan Mr. Greene is an 81 year old man with a history of prostate cancer and osteoblastic mets that presented with fatigue and found to have severe hypocalcemia thought secondary to his Denosumab (03/02/2017). Hypocalcemia/hypophosphatemia - The patient has now been on 39 days of IV calcium and oral calcium therapy - Secondary to Denosumab injection in the setting of metastatic prostate CA - calcium dropped to 7.7 after decreasing infusion rate to 1gm/hr for 12 - continue 2gm/h - Continue oral Calcium and Calcitriol - Vitamin D level low 03/15 but has been wnl since then - continue ergocalciferol supplementation - Nephrology consulted - continue telemetry monitoring while receiving calcium infusions Hypomagnesemia/ Hypophosphatemia - replaced UTI; Stenotrophomonas and enterococcus; chronic bey - Bactrim/ Amoxil course completed (10 day course) --> Initially treated with Rocephin on admission - continue bey catheter Superficial thrombophlebitis of right arm- resolved - Ultrasound confirmation of superficial thrombus involving the cephalic vein - Avoid IV line in right UE - Warm compress 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 Pardo I performed a history and physical examination on the patient. I reviewed above note and agree with it. I discussed plan with APC and patient. During my face to face encounter with the patient, I answered all of the patient's questions. will continue 2 gr IV of calcium. (Kenny Pardo M.D.)
[2017-04-24 15:56] VITALS: BP 101/63; PULSE 66; TEMP 36.7; O2SAT 96
[2017-04-24 20:16] VITALS: BP 95/45; PULSE 88; TEMP 36.9; O2SAT 95
[2017-04-24] MEDS: RANITIDINE HCL 150 MG TAB PO SCH (20:39)
[2017-04-24] MEDS: TAMSULOSIN HCL 0.4 MG CAP PO SCH (20:40)
[2017-04-25] VITALS (7 sets, daily range): BP systolic 94–140; BP diastolic 47–71; PULSE 68–98; TEMP 36.3–37; O2SAT 92–98
[2017-04-25] MEDS: SODIUM CHLORIDE 0.9% IV SCH ×2 (05:00→15:41)
[2017-04-25] MEDS: CALCIUM GLUCONATE IV SCH ×2 (05:00→15:41)
[2017-04-25] MEDS: DOCUSATE SODIUM 100 MG CAP PO SCH ×2 (08:21→20:24)
[2017-04-25] MEDS: ERGOCALCIFEROL 50,000 INTER.UNIT CAP PO SCH (08:22)
[2017-04-25] MEDS: CALCIUM CARBONATE 500 MG CHEWABLE PO SCH ×4 (08:22→20:26)
[2017-04-25] MEDS: CALCIUM CARBONATE 1250MG TAB PO SCH ×4 (08:22→20:25)
[2017-04-25] MEDS: PANTOprazole SOD 40 MG TAB PO SCH (08:23)
[2017-04-25] MEDS: POT PHOSPHATE MONOBASIC W/ SOD TAB PO SCH ×4 (08:24→20:34)
[2017-04-25] MEDS: CALCITRIOL 0.25 MCG CAP PO SCH (08:25)
[2017-04-25] MEDS: HEPARIN SOD 5000 UNIT/0.5 ML CARP SQ SCH ×2 (08:40→20:32)
--- NOTE | 2017-04-25 13:27 | Hospitalist Progress Note ---
Hospitalist Progress Note Date of Service Apr 25, 2017. (Callie Arvizu ., [facility]) Subjective Pt evaluation today including: conversation w/ patient, physical exam, chart review, lab review, review of inpatient medication list Voiding: no voiding problems Mr. Greene has no complaints. Ambulating halls multiple times per day. ROS Constitutional: no chills, aches, sweats or fever Respiratory: no sob,cough, sputum, or wheezing Cardiac: no chest pain, palpitations, edema, orthopnea or lightheadedness GI: no abdominal pain, nausea, vomiting, diarrhea or constipation : no dysuria or hesitancy Extremities: no joint pain or weakness Skin: no rash All other systems reviewed and negative (Callie Arvizu CRNP) Medications Medications Administered Medications (Trade) Dose Ordered Sig/Jonathan Route Start Time Stop Time Status Last Admin Dose Admin Sodium Chloride 1,000 ml @ 125 mls/hr Q8H STAT IV 03/15/17 10:09 03/15/17 16:58 DC 03/15/17 13:23 125 MLS/HR Sodium Chloride 1,000 ml @ 999 mls/hr Q1H1M STAT IV 03/15/17 10:22 03/15/17 11:22 DC 03/15/17 10:22 999 MLS/HR Calcium Gluconate (Calcium Gluconate 10%) 1,000 mg NOW STAT IV 03/15/17 12:26 03/15/17 12:28 DC 03/15/17 12:48 1,000 MG Magnesium Sulfate (Magnesium Sulfate) 2 gm NOW STAT IV 03/15/17 12:26 03/15/17 12:28 DC 03/15/17 13:35 2 GM Ceftriaxone Sodium (Rocephin Inj) 1 gm NOW STAT IV 03/15/17 12:26 03/15/17 12:28 DC 03/15/17 13:22 1 GM Calcium Gluconate 1000 mg/Sodium Chloride 60 ml @ 240 mls/hr NOW STAT IV 03/15/17 16:06 03/15/17 16:20 DC 03/15/17 17:33 240 MLS/HR Tamsulosin HCl (Flomax Cap) 0.8 mg HS PO 03/15/17 21:00 05/10/17 20:59 04/24/17 20:40 0.8 MG Pantoprazole Sodium (Protonix Tab) 40 mg QAM PO 03/16/17 09:00 05/10/17 08:59 04/25/17 08:23 40 MG Ranitidine HCl (zANTac TAB) 300 mg HS PO 03/15/17 21:00 05/10/17 20:59 04/24/17 20:39 300 MG Ceftriaxone Sodium 1 gm/ Dextrose 50 ml @ 100 mls/hr Q24H IV 03/16/17 14:00 03/17/17 12:03 DC 03/16/17 13:03 100 MLS/HR Docusate Sodium (coLACE CAP) 100 mg BID PO 03/15/17 21:00 05/10/17 20:59 04/25/17 08:21 100 MG Heparin Sodium (Porcine) (Heparin Sq 5000 Unit/0.5ml) 5,000 unit Q12 SQ 03/15/17 21:00 05/10/17 20:59 04/25/17 08:40 5,000 UNIT Desonide (Desowen 0.05% Crm) 1 appln BID EXT 03/15/17 21:00 03/29/17 18:53 DC 03/29/17 08:17 1 APPLN Nystatin (Mycostatin Susp) 5 ml QID PO 03/15/17 17:00 03/25/17 16:59 DC 03/25/17 12:19 5 ML Nystatin (Mycostatin Powder) 1 appln BID EXT 03/15/17 21:00 04/14/17 20:59 DC 04/14/17 09:12 1 APPLN Ergocalciferol (Vitamin D Cap) 50,000 interunit NOW ONCE PO 03/15/17 17:00 03/15/17 17:01 DC 03/15/17 17:32 50,000 INTERUNIT Calcitriol (Rocaltrol Cap) 0.25 mcg 1700 ONCE PO 03/15/17 17:00 03/15/17 17:01 DC 03/15/17 17:31 0.25 MCG Calcium Carbonate (Tums Chew Tab) 1,000 mg NOW ONCE PO 03/15/17 17:00 03/15/17 17:01 DC 03/15/17 17:32 1,000 MG Calcium Carbonate (Tums Chew Tab) 1,000 mg QAM PO 03/16/17 09:00 03/16/17 09:00 DC 03/16/17 07:59 1,000 MG Sodium Phosphate 15 mmol/Sodium Chloride 255 ml @ 102 mls/hr 1800 ONCE IV 03/15/17 18:00 03/15/17 20:29 DC 03/15/17 18:50 102 MLS/HR Calcium Gluconate 2000 mg/Sodium Chloride 70 ml @ 240 mls/hr 2030 ONCE IV 03/15/17 20:30 03/15/17 20:47 DC 03/16/17 00:15 240 MLS/HR Calcium Gluconate 3000 mg/Sodium Chloride 80 ml @ 160 mls/hr NOW ONCE IV 03/16/17 02:00 03/16/17 02:29 DC 03/16/17 02:05 160 MLS/HR Magnesium Sulfate 1 gm/Prmx 100 ml @ 100 mls/hr TODAY@0800,0900 IV 03/16/17 08:00 03/16/17 09:59 DC 03/16/17 10:22 100 MLS/HR Calcium Carbonate (Tums Chew Tab) 1,000 mg QID PO 03/16/17 09:00 03/16/17 15:24 DC 03/16/17 13:03 1,000 MG Calcium Gluconate 2000 mg/Sodium Chloride 70 ml @ 240 mls/hr 1000 ONCE IV 03/16/17 10:00 03/16/17 10:17 DC 03/16/17 11:57 240 MLS/HR Calcium Carbonate (Tums Chew Tab) 2,000 mg QID PO 03/16/17 17:00 05/10/17 16:59 04/25/17 12:23 2,000 MG Potassium/ Phosphorus/Sodium (Phospha 250 Neutral 155-852-130 Mg) 1 tab QID PO 03/16/17 17:00 04/09/17 08:38 DC 04/08/17 21:15 1 TAB Sodium Phosphate 21 mmol/Sodium Chloride 507 ml @ 144 mls/hr ONE ONCE IV 03/16/17 15:30 03/16/17 19:01 DC 03/16/17 15:47 144 MLS/HR Calcium Gluconate 2000 mg/Sodium Chloride 70 ml @ 240 mls/hr NOW STAT IV 03/16/17 15:28 03/16/17 15:45 DC 03/16/17 15:47 240 MLS/HR Calcium Gluconate 1000 mg/Sodium Chloride 60 ml @ 240 mls/hr NOW STAT IV 03/16/17 17:12 03/16/17 17:26 DC 03/16/17 17:41 240 MLS/HR Calcium Gluconate 1000 mg/Sodium Chloride 60 ml @ 120 mls/hr NOW ONCE IV 03/16/17 19:45 03/16/17 20:14 DC 03/16/17 19:54 120 MLS/HR Calcium Gluconate 1000 mg/Sodium Chloride 60 ml @ 240 mls/hr NOW STAT IV 03/17/17 04:32 03/17/17 04:46 DC 03/17/17 04:51 240 MLS/HR Calcium Gluconate 3000 mg/Sodium Chloride 80 ml @ 160 mls/hr 0900 ONCE IV 03/17/17 09:00 03/17/17 09:29 DC 03/17/17 09:00 160 MLS/HR Magnesium Sulfate 1 gm/Prmx 100 ml @ 100 mls/hr 0930,1030 IV 03/17/17 09:30 03/17/17 11:29 DC 03/17/17 10:25 100 MLS/HR Cholecalciferol (Vitamin D Tab) 1,000 inter.unit QAM PO 03/18/17 09:00 03/18/17 09:00 DC 03/18/17 07:43 1,000 INTER.UNIT Cholecalciferol (Vitamin D Tab) 1,000 inter.unit 0942 ONCE PO 03/17/17 09:42 03/17/17 09:44 DC 03/17/17 10:22 1,000 INTER.UNIT Calcitriol (Rocaltrol Cap) 1 mcg NOW ONCE PO 03/17/17 09:45 03/17/17 09:55 DC 03/17/17 10:22 1 MCG Calcium Gluconate 3000 mg/Sodium Chloride 80 ml @ 160 mls/hr 1130 ONCE IV 03/17/17 11:30 03/17/17 11:59 DC 03/17/17 11:25 160 MLS/HR Cephalexin Monohydrate (Keflex Cap) 500 mg BID PO 03/17/17 13:00 03/17/17 19:12 DC 03/17/17 14:57 500 MG Calcium Gluconate 3000 mg/Sodium Chloride 80 ml @ 160 mls/hr 1500 ONCE IV 03/17/17 15:00 03/17/17 15:29 DC 03/17/17 14:59 160 MLS/HR Calcium Gluconate 3000 mg/Sodium Chloride 80 ml @ 240 mls/hr Q6H IV 03/17/17 22:00 03/18/17 08:45 DC 03/18/17 04:16 240 MLS/HR Calcium Gluconate 1000 mg/Sodium Chloride 60 ml @ 240 mls/hr NOW STAT IV 03/17/17 19:39 03/17/17 19:53 DC 03/17/17 20:32 240 MLS/HR Magnesium Sulfate 1 gm/Prmx 100 ml @ 100 mls/hr Q1H IV 03/18/17 09:30 03/18/17 11:29 DC 03/18/17 15:15 100 MLS/HR Cholecalciferol (Vitamin D Tab) 5,000 inter.unit QAM PO 03/18/17 09:00 03/26/17 12:23 DC 03/26/17 08:37 5,000 INTER.UNIT Calcitriol (Rocaltrol Cap) 1 mcg QAM PO 03/18/17 09:00 03/27/17 08:41 DC 03/27/17 07:56 1 MCG Calcium Gluconate 4000 mg/Sodium Chloride 90 ml @ 120 mls/hr 0900 ONCE IV 03/18/17 09:00 03/18/17 09:44 DC 03/18/17 08:54 120 MLS/HR Calcium Gluconate 4000 mg/Sodium Chloride 90 ml @ 120 mls/hr 1000 IV 03/18/17 10:00 03/18/17 11:00 DC 03/18/17 09:52 120 MLS/HR Calcium Carbonate (oS-Randy 500 TAB) 1,250 mg QID PO 03/18/17 09:00 05/10/17 08:59 04/25/17 12:22 1,250 MG Trimethoprim/ Sulfamethoxazole (Septra Ds 800/ 160MG Tab) 1 tab DAILY PO 03/19/17 09:00 03/29/17 08:59 DC 03/29/17 08:16 1 TAB Trimethoprim/ Sulfamethoxazole (Septra Ds 800/ 160MG Tab) 1 tab 1300 ONCE PO 03/18/17 13:00 03/18/17 13:01 DC 03/18/17 13:01 1 TAB Calcium Gluconate 3000 mg/Sodium Chloride 80 ml @ 160 mls/hr 1500 IV 03/18/17 15:00 03/18/17 15:29 DC 03/18/17 15:00 160 MLS/HR Heparin Sodium (Porcine) (Heparin 10 Unit/ ml 5 ml Flush) 5 ml PRN PRN FLUSH 03/18/17 15:30 05/10/17 15:29 04/06/17 05:39 5 ML Calcium Gluconate 4000 mg/Sodium Chloride 90 ml @ 120 mls/hr NOW STAT IV 03/18/17 21:35 03/18/17 22:19 DC 03/18/17 22:21 120 MLS/HR Calcium Gluconate 4000 mg/Sodium Chloride 90 ml @ 120 mls/hr ONE ONCE IV 03/19/17 00:00 03/19/17 00:44 DC 03/19/17 00:01 120 MLS/HR Calcium Gluconate 2000 mg/Sodium Chloride 70 ml @ 240 mls/hr 0800 ONCE IV 03/19/17 08:00 03/19/17 08:17 DC 03/19/17 08:48 240 MLS/HR Sodium Phosphate 15 mmol/Sodium Chloride 255 ml @ 88 mls/hr 0900 ONCE IV 03/19/17 09:00 03/19/17 11:53 DC 03/19/17 08:48 88 MLS/HR Amoxicillin (Amoxil Cap) 250 mg TID PO 03/19/17 21:00 03/24/17 20:59 DC 03/24/17 21:17 250 MG Amoxicillin (Amoxil Cap) 250 mg TODAY@1515 ONCE PO 03/19/17 15:15 03/19/17 15:23 DC 03/19/17 15:33 250 MG Calcium Gluconate 2000 mg/Sodium Chloride 70 ml @ 240 mls/hr NOW STAT IV 03/19/17 17:53 03/19/17 18:10 DC 03/19/17 18:12 240 MLS/HR Calcium Gluconate 2000 mg/Sodium Chloride 70 ml @ 140 mls/hr NOW ONCE IV 03/19/17 19:00 03/19/17 19:29 DC 03/19/17 19:23 140 MLS/HR Calcium Gluconate 4000 mg/Sodium Chloride 140 ml @ 140 mls/hr 0900 IV 03/20/17 09:00 03/20/17 12:00 DC 03/20/17 09:01 140 MLS/HR Magnesium Sulfate 1 gm/Prmx 100 ml @ 100 mls/hr Q1H IV 03/20/17 10:00 03/20/17 11:59 DC 03/20/17 11:13 100 MLS/HR Calcium Gluconate 4000 mg/Sodium Chloride 140 ml @ 140 mls/hr TODAY@1645 ONCE IV 03/20/17 16:45 03/20/17 17:44 DC 03/20/17 16:53 140 MLS/HR Calcium Gluconate 3000 mg/Dextrose 280 ml @ 125 mls/hr Q2H15M IV 03/21/17 10:30 03/21/17 12:44 DC 03/21/17 10:58 125 MLS/HR Calcium Gluconate 3000 mg/Sodium Chloride 80 ml @ 160 mls/hr 1630 ONCE IV 03/21/17 16:30 03/21/17 16:59 DC 03/21/17 16:36 160 MLS/HR Calcium Gluconate 4000 mg/Dextrose 290 ml @ 125 mls/hr Q24H IV 03/22/17 11:30 03/23/17 09:32 DC 03/22/17 12:32 125 MLS/HR Calcium Gluconate 4000 mg/Dextrose 290 ml @ 125 mls/hr Q2H20M ONCE IV 03/22/17 18:45 03/22/17 21:04 DC 03/22/17 19:16 125 MLS/HR Calcium Gluconate 4000 mg/Dextrose 290 ml @ 150 mls/hr Q1H56M IV 03/23/17 09:45 03/23/17 11:40 DC 03/23/17 10:22 150 MLS/HR Calcium Gluconate 4000 mg/Dextrose 290 ml @ 150 mls/hr Q1H56M ONCE IV 03/23/17 16:45 03/23/17 18:40 DC 03/23/17 17:00 150 MLS/HR Calcium Gluconate 4000 mg/Sodium Chloride 540 ml @ 125 mls/hr Q4H20M IV 03/24/17 09:45 03/25/17 09:44 DC 03/25/17 10:05 125 MLS/HR Calcium Gluconate 4000 mg/Sodium Chloride 540 ml @ 125 mls/hr Q4H20M IV 03/25/17 14:30 03/26/17 12:23 DC 03/26/17 09:59 125 MLS/HR Magnesium Sulfate 1 gm/Prmx 100 ml @ 100 mls/hr NOW STAT IV 03/26/17 14:41 03/26/17 15:40 DC 03/26/17 16:35 100 MLS/HR Calcitriol (Rocaltrol Cap) 2 mcg QAM PO 03/28/17 08:00 03/29/17 13:49 DC 03/29/17 08:15 2 MCG Calcium Gluconate 2000 mg/Sodium Chloride 520 ml @ 125 mls/hr Q4H10M IV 03/27/17 09:00 03/28/17 08:25 DC 03/28/17 05:36 125 MLS/HR Calcium Gluconate 54631 mg/Sodium Chloride 600 ml @ 60 mls/hr Q10H IV 03/28/17 09:00 03/29/17 08:58 DC 03/29/17 06:16 60 MLS/HR Potassium Phosphate 30 mmol/ Sodium Chloride 510 ml @ 88 mls/hr TODAY@1100 IV 03/29/17 11:00 03/29/17 16:48 DC 03/29/17 11:26 88 MLS/HR Heparin Sodium (Porcine) (Heparin 10 Unit/ ml 5 ml Flush) 5 ml PRN PRN FLUSH 03/29/17 11:00 04/28/17 10:59 04/20/17 05:50 5 ML Calcitriol (Rocaltrol Cap) 3 mcg QAM PO 03/30/17 08:00 04/10/17 12:17 DC 04/10/17 08:00 3 MCG Calcium Gluconate 2000 mg/Sodium Chloride 520 ml @ 125 mls/hr Q4H10M IV 03/29/17 16:30 03/31/17 15:59 DC 03/31/17 12:44 125 MLS/HR Magnesium Sulfate 1 gm/Prmx 100 ml @ 100 mls/hr Q1H IV 03/30/17 08:30 03/30/17 10:29 DC 03/30/17 11:49 100 MLS/HR Potassium Phosphate 15 mmol/ Sodium Chloride 255 ml @ 113.333 mls/hr ONE ONCE IV 03/30/17 08:30 03/30/17 10:44 DC 03/30/17 09:37 113.333 MLS/HR Hydrochlorothiazide (Hydrochlorothiazide Tab) 25 mg QAM PO 03/30/17 13:00 04/14/17 11:19 DC 04/14/17 08:08 25 MG Calcium Gluconate 3000 mg/Sodium Chloride 130 ml @ 260 mls/hr NOW STAT IV 03/31/17 07:13 03/31/17 07:42 DC 03/31/17 07:53 260 MLS/HR Sodium Phosphate 15 mmol/Sodium Chloride 255 ml @ 85 mls/hr NOW STAT IV 03/31/17 09:42 03/31/17 12:41 DC 03/31/17 11:10 85 MLS/HR Calcium Gluconate 4000 mg/Sodium Chloride 540 ml @ 125 mls/hr Q4H20M IV 03/31/17 17:00 04/01/17 11:19 DC 04/01/17 11:14 125 MLS/HR Calcium Gluconate 2000 mg/Sodium Chloride 520 ml @ 125 mls/hr Q4H10M IV 04/01/17 15:30 04/02/17 13:24 DC 04/02/17 12:36 125 MLS/HR Sodium Phosphate 9 mmol/Sodium Chloride 253 ml @ 88 mls/hr TODAY@1445 ONCE IV 04/01/17 14:45 04/01/17 17:37 DC 04/01/17 15:42 88 MLS/HR Nystatin (Mycostatin Susp) 5 ml QID PO 04/01/17 17:00 04/11/17 16:59 DC 04/11/17 11:55 5 ML Calcium Gluconate 4000 mg/Sodium Chloride 540 ml @ 125 mls/hr Q4H20M IV 04/03/17 08:30 04/03/17 12:49 DC 04/03/17 08:29 125 MLS/HR Magnesium Sulfate 1 gm/Prmx 100 ml @ 100 mls/hr Q1H IV 04/03/17 18:00 04/03/17 19:59 DC 04/03/17 19:02 100 MLS/HR Calcium Gluconate 4000 mg/Sodium Chloride 540 ml @ 125 mls/hr Q4H20M ONCE IV 04/03/17 18:00 04/03/17 22:19 DC 04/03/17 17:55 125 MLS/HR Calcium Gluconate 4000 mg/Sodium Chloride 540 ml @ 125 mls/hr Q4H20M IV 04/03/17 23:00 04/05/17 17:36 DC 04/05/17 15:30 125 MLS/HR Calcium Gluconate 4000 mg/Sodium Chloride 540 ml @ 125 mls/hr Q4H20M IV 04/06/17 09:15 04/10/17 12:24 DC 04/10/17 10:15 125 MLS/HR Magnesium Sulfate 1 gm/Prmx 100 ml @ 100 mls/hr Q1H IV 04/08/17 08:00 04/08/17 09:59 DC 04/08/17 09:10 100 MLS/HR Sodium Phosphate 15 mmol/Sodium Chloride 255 ml @ 88 mls/hr 1000 ONCE IV 04/08/17 10:00 04/08/17 12:53 DC 04/08/17 10:07 88 MLS/HR Benzonatate (Tessalon Perles Cap) 100 mg TID PRN PO 04/08/17 10:45 05/08/17 10:44 04/10/17 20:37 100 MG Potassium/ Phosphorus/Sodium (Phospha 250 Neutral 155-852-130 Mg) 2 tab QID PO 04/09/17 12:00 04/10/17 12:47 DC 04/10/17 11:37 2 TAB Sodium Phosphate 15 mmol/Sodium Chloride 255 ml @ 88 mls/hr ONE ONCE IV 04/09/17 09:00 04/09/17 11:53 DC 04/09/17 08:59 88 MLS/HR Calcitriol (Rocaltrol Cap) 4 mcg QAM PO 04/11/17 08:00 05/11/17 07:59 04/25/17 08:25 4 MCG Ergocalciferol (Vitamin D Cap) 50,000 interunit DAILY PO 04/11/17 08:00 04/23/17 07:59 DC 04/22/17 07:56 50,000 INTERUNIT Ergocalciferol (Vitamin D Cap) 50,000 interunit NOW ONCE PO 04/10/17 13:00 04/10/17 13:01 DC 04/10/17 13:03 50,000 INTERUNIT Calcium Gluconate 4000 mg/Sodium Chloride 140 ml @ 70 mls/hr Q2H IV 04/10/17 14:00 04/13/17 09:27 DC 04/13/17 09:01 70 MLS/HR Magnesium Sulfate 1 gm/Prmx 100 ml @ 100 mls/hr Q1H IV 04/10/17 13:00 04/10/17 14:59 DC 04/10/17 14:08 100 MLS/HR Potassium/ Phosphorus/Sodium (Phospha 250 Neutral 155-852-130 Mg) 2 tab QID PO 04/10/17 17:00 05/10/17 16:59 04/25/17 12:23 2 TAB Magnesium Sulfate 1 gm/Prmx 100 ml @ 100 mls/hr NOW STAT IV 04/11/17 11:22 04/11/17 12:21 DC 04/11/17 11:55 100 MLS/HR Sodium Phosphate 15 mmol/Sodium Chloride 255 ml @ 127.5 mls/ hr ONE ONCE IV 04/12/17 08:45 04/12/17 10:44 DC 04/12/17 09:21 127.5 MLS/HR Magnesium Sulfate 1 gm/Prmx 100 ml @ 100 mls/hr 0800 IV 04/13/17 08:00 04/13/17 10:00 DC 04/13/17 08:06 100 MLS/HR Magnesium Oxide (Mag-Ox Tab) 400 mg BID PO 04/13/17 09:00 04/16/17 08:59 DC 04/15/17 21:03 400 MG Calcium Gluconate 05445 mg/Sodium Chloride 700 ml @ 35 mls/hr Q10H IV 04/13/17 11:00 04/15/17 11:06 DC 04/14/17 17:11 35 MLS/HR Magnesium Sulfate 1 gm/Prmx 100 ml @ 100 mls/hr Q1H IV 04/13/17 12:30 04/13/17 14:29 DC 04/13/17 14:19 100 MLS/HR Calcium Gluconate 26194 mg/Sodium Chloride 700 ml @ 35 mls/hr Q20H IV 04/15/17 11:15 04/15/17 21:16 DC 04/15/17 11:30 35 MLS/HR Calcium Gluconate 50867 mg/Sodium Chloride 700 ml @ 70 mls/hr Q10H IV 04/15/17 21:30 3/10/18 10:44 DC 04/21/17 07:45 70 MLS/HR Calcium Gluconate 53623 mg/Sodium Chloride 600 ml @ 120 mls/hr Q5H IV 04/21/17 12:00 04/22/17 15:00 DC 04/22/17 15:04 120 MLS/HR Magnesium Sulfate 1 gm/Prmx 100 ml @ 100 mls/hr Q1H IV 04/22/17 08:15 04/22/17 10:14 DC 04/22/17 09:28 100 MLS/HR Calcium Gluconate 61524 mg/Sodium Chloride 700 ml @ 70 mls/hr Q10H IV 04/22/17 15:00 05/22/17 14:59 04/25/17 05:00 70 MLS/HR Magnesium Sulfate 1 gm/Prmx 100 ml @ 100 mls/hr ONE ONCE IV 04/23/17 10:00 04/23/17 10:59 DC 04/23/17 09:49 100 MLS/HR Ergocalciferol (Vitamin D Cap) 50,000 interunit DAILY PO 04/24/17 09:00 05/24/17 08:59 04/25/17 08:22 50,000 INTERUNIT (Callie Arvizu CRNP) Objective Vital Signs Date Time Temp Pulse Resp B/P (MAP) Pulse Ox O2 Delivery O2 Flow Rate FiO2 04/25/17 12:15 Room Air 04/25/17 11:41 36.3 95 16 110/70 (83) 96 Room Air 04/25/17 08:15 Room Air 04/25/17 07:47 36.8 79 18 119/58 (78) 96 Room Air 04/25/17 05:12 36.6 68 18 133/71 (91) 98 Room Air 04/25/17 04:10 Room Air 04/25/17 00:24 37.0 98 18 140/70 (93) 95 Room Air 04/25/17 00:10 Room Air 04/24/17 20:16 36.9 88 18 95/45 (62) 95 Room Air 04/24/17 20:00 Room Air 04/24/17 16:00 Room Air 04/24/17 15:56 36.7 66 18 101/63 (76) 96 Room Air (Callie Arvizu CRNP) Physical Exam Notes: General: no distress Eyes: normal inspection, PERLL Respiratory: chest non tender, clear to auscultation, normal breath sounds, no respiratory distress, no accessory muscle use Cardiac: regular rate and rhythm, no rub or gallop, no murmur, no edema, no jvd GI/: active bowel sounds, no abd pain or tenderness, soft, non distended Extremities: normal range of motion, normal strength, non tender Neuro/Psych: alert and oriented x 3, normal mood and affect Skin: normal color, dry (Callie Arvizu CRNP) Laboratory Results Last 24 Hours Test 04/25/17 05:19 Calcium Level 9.6 mg/dl (Callie Arvizu CRNP) Assessment and Plan Mr. Greene is an 81 year old man with a history of prostate cancer and osteoblastic mets that presented with fatigue and found to have severe hypocalcemia thought secondary to his Denosumab (03/02/2017). Hypocalcemia/hypophosphatemia - The patient has now been on 40 days of IV calcium and oral calcium therapy - Secondary to Denosumab injection in the setting of metastatic prostate CA - calcium dropped to 7.7 on 04/22 after decreasing infusion rate to 1gm/hr for 12 - continue 2gm/h - Continue oral Calcium and Calcitriol - Vitamin D level low 03/15 but has been wnl since then - continue ergocalciferol supplementation - Nephrology consulted - continue telemetry monitoring while receiving calcium infusions Hypomagnesemia/ Hypophosphatemia - replaced UTI; Stenotrophomonas and enterococcus; chronic bey - Bactrim/ Amoxil course completed (10 day course) --> Initially treated with Rocephin on admission - continue bey catheter Superficial thrombophlebitis of right arm- resolved - Ultrasound confirmation of superficial thrombus involving the cephalic vein - Avoid IV line in right UE - Warm compress 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 Pardo I performed a history and physical examination on the patient. I reviewed above note and agree with it. I discussed plan with APC and patient. During my face to face encounter with the patient, I answered all of the patient's questions. Will continue calcium at 2gr/hr for hypocalcemia. (Kenny Pardo M.D.)
--- NOTE | 2017-04-25 16:41 | Nephrology Progress Note ---
Nephrology Progress Note Date of Service Apr 25, 2017. Chief Complaint Hypocalcemia Subjective No acute events overnight. Paul was seen and evaluated this morning. He continues to walk for 2+ hours each day. He remains in good spirits. He has no complaints. Review of Systems A complete review of systems was performed. Pertinent positives are noted above. All other systems are negative. Vital Signs Last 8 Hrs Date Time Temp Pulse Resp B/P (MAP) Pulse Ox O2 Delivery O2 Flow Rate FiO2 04/25/17 16:17 37.0 86 18 94/47 (63) 94 Room Air 04/25/17 12:15 Room Air 04/25/17 11:41 36.3 95 16 110/70 (83) 96 Room Air I & O 24-Hour Column 04/26/17 08:00 Output Total 1300 ml Balance -1300 ml Last Recorded Weight Weight (Kilograms): 63.500 Physical Exam General Appearance: WD/WN, no apparent distress Head: normocephalic, atraumatic Eyes: normal inspection, sclerae normal ENT: normal ENT inspection, pharynx normal Neck: supple, no JVD Respiratory/Chest: lungs clear, no respiratory distress, no accessory muscle use Cardiovascular: regular rate, rhythm, no gallop, no murmur Abdomen/GI: non tender, soft Extremities/Musculoskelatal: normal inspection, no pedal edema Neurologic/Psych: alert, normal mood/affect Social History Drug Use: none Marital Status: Housing Status: lives with family (lives with son) 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 04/25/17 05:19 Calcium Level 9.6 mg/dl (8.5-10.1) Allergies Coded Allergies: No Known Allergies (Unverified , 03/15/17) Medications Current Inpatient Medications Medications (Trade) Dose Ordered Sig/Jonathan Route Start Time Stop Time Status Last Admin Dose Admin Acetaminophen (Tylenol Tab) 650 mg Q4H PRN PO 03/15/17 14:15 05/10/17 14:14 Tamsulosin HCl (Flomax Cap) 0.8 mg HS PO 03/15/17 21:00 05/10/17 20:59 04/24/17 20:40 0.8 MG Miscellaneous Information (Order Awaiting Action) 1 ea QS N/A 03/15/17 16:00 3/29/18 15:59 Pantoprazole Sodium (Protonix Tab) 40 mg QAM PO 03/16/17 09:00 05/10/17 08:59 04/25/17 08:23 40 MG Ranitidine HCl (zANTac TAB) 300 mg HS PO 03/15/17 21:00 05/10/17 20:59 04/24/17 20:39 300 MG Polyethylene (Miralax Powder Packet) 17 gm DAILY PRN PO 03/15/17 15:00 05/10/17 14:59 Docusate Sodium (coLACE CAP) 100 mg BID PO 03/15/17 21:00 05/10/17 20:59 04/25/17 08:21 100 MG Bisacodyl (Dulcolax Supp) 10 mg DAILY PRN [place] 03/15/17 15:00 05/10/17 14:59 Heparin Sodium (Porcine) (Heparin Sq 5000 Unit/0.5ml) 5,000 unit Q12 SQ 03/15/17 21:00 05/10/17 20:59 04/25/17 08:40 5,000 UNIT Calcium Carbonate (Tums Chew Tab) 2,000 mg QID PO 03/16/17 17:00 05/10/17 16:59 04/25/17 12:23 2,000 MG Calcium Carbonate (oS-Randy 500 TAB) 1,250 mg QID PO 03/18/17 09:00 05/10/17 08:59 04/25/17 12:22 1,250 MG Miscellaneous (Tap Water Enema) 1 ea Q2D PRN [place] 03/18/17 13:30 05/10/17 13:29 Heparin Sodium (Porcine) (Heparin 10 Unit/ ml 5 ml Flush) 5 ml PRN PRN FLUSH 03/18/17 15:30 05/10/17 15:29 04/06/17 05:39 5 ML Heparin Sodium (Porcine) (Heparin 10 Unit/ ml 5 ml Flush) 5 ml PRN PRN FLUSH 03/29/17 11:00 04/28/17 10:59 04/20/17 05:50 5 ML Benzonatate (Tessalon Perles Cap) 100 mg TID PRN PO 04/08/17 10:45 05/08/17 10:44 04/10/17 20:37 100 MG Calcitriol (Rocaltrol Cap) 4 mcg QAM PO 04/11/17 08:00 05/11/17 07:59 04/25/17 08:25 4 MCG Potassium/ Phosphorus/Sodium (Phospha 250 Neutral 155-852-130 Mg) 2 tab QID PO 04/10/17 17:00 05/10/17 16:59 04/25/17 12:23 2 TAB Calcium Gluconate 60202 mg/Sodium Chloride 700 ml @ 70 mls/hr Q10H IV 04/22/17 15:00 05/22/17 14:59 04/25/17 15:41 70 MLS/HR Ergocalciferol (Vitamin D Cap) 50,000 interunit DAILY PO 04/24/17 09:00 05/24/17 08:59 04/25/17 08:22 50,000 INTERUNIT Impression (1) Hypocalcemia (2) Prostate cancer (3) Hypertension Mr. 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 He developed severe hypocalcemia following Denosumab infusion. Renal function is normal. He remains on tele monitor with normal QTc. 25OH D deficiency documented on presentation is being treated with ergocalciferol 62048 IU. Calcitriol is also being provided. The patient is taking PO calcium in the form of TUMs and Oscal. Aggressive replacement with PO and IV calcium continues. The patient has had associated hypomagnesemia. Recommendations -- IV calcium gluconate from 2 g/hr -- Continue Calcitriol 4 mcg daily, OsCal 2500 QID, TUMS 2 grams TID -- Monitor serum calcium daily
[2017-04-25] MEDS: RANITIDINE HCL 150 MG TAB PO SCH (20:25)
[2017-04-25] MEDS: TAMSULOSIN HCL 0.4 MG CAP PO SCH (20:26)
[2017-04-26] VITALS (7 sets, daily range): BP systolic 100–134; BP diastolic 54–73; PULSE 80–98; TEMP 36.4–36.7; O2SAT 94–97
[2017-04-26] MEDS: SODIUM CHLORIDE 0.9% IV SCH ×3 (01:28→21:16)
[2017-04-26] MEDS: CALCIUM GLUCONATE IV SCH ×3 (01:28→21:16)
[2017-04-26 05:48] LABS: CALCIUM 9.6 mg/dl (8.5-10.1); CREATININE 1.05 mg/dl (0.60-1.40); POTASSIUM 4.7 mmol/L (3.5-5.1)
[2017-04-26] MEDS: PANTOprazole SOD 40 MG TAB PO SCH (09:01)
[2017-04-26] MEDS: DOCUSATE SODIUM 100 MG CAP PO SCH ×2 (09:01→21:03)
[2017-04-26] MEDS: CALCIUM CARBONATE 1250MG TAB PO SCH ×4 (09:01→21:04)
[2017-04-26] MEDS: POT PHOSPHATE MONOBASIC W/ SOD TAB PO SCH ×4 (09:02→21:04)
[2017-04-26] MEDS: CALCITRIOL 0.25 MCG CAP PO SCH (09:05)
[2017-04-26] MEDS: CALCIUM CARBONATE 500 MG CHEWABLE PO SCH ×4 (09:06→21:04)
[2017-04-26] MEDS: HEPARIN SOD 5000 UNIT/0.5 ML CARP SQ SCH ×2 (09:14→21:13)
[2017-04-26] MEDS: ERGOCALCIFEROL 50,000 INTER.UNIT CAP PO SCH (09:19)
[2017-04-26] MEDS: MAGNESIUM OXIDE 400 MG TAB PO SCH ×2 (09:25→21:03)
[2017-04-26] MEDS ORDERED: MAGNESIUM SULFATE 1GM / D5W 1 GM in PREMIXED IN D5W 100 ML IV ONE (10:15)
--- NOTE | 2017-04-26 11:25 | Nephrology Progress Note ---
Nephrology Progress Note Date of Service Apr 26, 2017. Chief Complaint Hypocalcemia Subjective No acute events overnight. No complaints this morning. Red feels well. He continues ambulating in the halls. He remains optimistic. No complaints or concerns expressed. Review of Systems A complete review of systems was performed. Pertinent positives are noted above. All other systems are negative. Vital Signs Last 8 Hrs Date Time Temp Pulse Resp B/P (MAP) Pulse Ox O2 Delivery O2 Flow Rate FiO2 04/26/17 08:00 97 Room Air 97.0 04/26/17 07:57 36.7 83 16 134/73 (93) 97 04/26/17 04:22 36.6 80 100/58 (72) 94 Room Air 04/26/17 04:00 Room Air Last Recorded Weight Weight (Kilograms): 63.700 Physical Exam General Appearance: WD/WN, no apparent distress Head: normocephalic, atraumatic Eyes: normal inspection, sclerae normal ENT: normal ENT inspection, pharynx normal Neck: supple, no JVD Respiratory/Chest: lungs clear, no respiratory distress, no accessory muscle use Cardiovascular: regular rate, rhythm, no gallop Abdomen/GI: non tender, soft Extremities/Musculoskelatal: normal inspection, no pedal edema Neurologic/Psych: alert, normal mood/affect Social History Drug Use: none Marital Status: Housing Status: lives with family (lives with son) 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 04/26/17 05:14 Test 04/26/17 05:14 Anion Gap 8.0 mmol/L (3-11) Est Creatinine Clear Calc Drug Dose 46.4 ml/min Estimated GFR () 75.7 Estimated GFR (Non- 65.3 BUN/Creatinine Ratio 18.9 (10-20) Calcium Level 9.6 mg/dl (8.5-10.1) Magnesium Level 1.6 mg/dl (1.8-2.4) Allergies Coded Allergies: No Known Allergies (Unverified , 03/15/17) Medications Current Inpatient Medications Medications (Trade) Dose Ordered Sig/Jonathan Route Start Time Stop Time Status Last Admin Dose Admin Acetaminophen (Tylenol Tab) 650 mg Q4H PRN PO 03/15/17 14:15 05/10/17 14:14 Tamsulosin HCl (Flomax Cap) 0.8 mg HS PO 03/15/17 21:00 05/10/17 20:59 04/25/17 20:26 0.8 MG Miscellaneous Information (Order Awaiting Action) 1 ea QS N/A 03/15/17 16:00 05/10/17 15:59 Pantoprazole Sodium (Protonix Tab) 40 mg QAM PO 03/16/17 09:00 05/10/17 08:59 04/26/17 09:01 40 MG Ranitidine HCl (zANTac TAB) 300 mg HS PO 03/15/17 21:00 05/10/17 20:59 04/25/17 20:25 300 MG Polyethylene (Miralax Powder Packet) 17 gm DAILY PRN PO 03/15/17 15:00 05/10/17 14:59 Docusate Sodium (coLACE CAP) 100 mg BID PO 03/15/17 21:00 05/10/17 20:59 04/26/17 09:01 100 MG Bisacodyl (Dulcolax Supp) 10 mg DAILY PRN [place] 03/15/17 15:00 05/10/17 14:59 Heparin Sodium (Porcine) (Heparin Sq 5000 Unit/0.5ml) 5,000 unit Q12 SQ 03/15/17 21:00 05/10/17 20:59 04/26/17 09:14 5,000 UNIT Calcium Carbonate (Tums Chew Tab) 2,000 mg QID PO 03/16/17 17:00 05/10/17 16:59 04/26/17 09:06 2,000 MG Calcium Carbonate (oS-Randy 500 TAB) 1,250 mg QID PO 03/18/17 09:00 05/10/17 08:59 04/26/17 09:01 1,250 MG Miscellaneous (Tap Water Enema) 1 ea Q2D PRN IL 03/18/17 13:30 05/10/17 13:29 Heparin Sodium (Porcine) (Heparin 10 Unit/ ml 5 ml Flush) 5 ml PRN PRN FLUSH 03/18/17 15:30 05/10/17 15:29 04/06/17 05:39 5 ML Heparin Sodium (Porcine) (Heparin 10 Unit/ ml 5 ml Flush) 5 ml PRN PRN FLUSH 03/29/17 11:00 04/28/17 10:59 3/9/18 05:50 5 ML Benzonatate (Tessalon Perles Cap) 100 mg TID PRN PO 04/08/17 10:45 05/08/17 10:44 04/10/17 20:37 100 MG Calcitriol (Rocaltrol Cap) 4 mcg QAM PO 04/11/17 08:00 05/11/17 07:59 04/26/17 09:05 4 MCG Potassium/ Phosphorus/Sodium (Phospha 250 Neutral 155-852-130 Mg) 2 tab QID PO 04/10/17 17:00 05/10/17 16:59 04/26/17 09:02 2 TAB Calcium Gluconate 44584 mg/Sodium Chloride 700 ml @ 70 mls/hr Q10H IV 04/22/17 15:00 05/22/17 14:59 04/26/17 01:28 70 MLS/HR Ergocalciferol (Vitamin D Cap) 50,000 interunit DAILY PO 04/24/17 09:00 05/24/17 08:59 04/26/17 09:19 50,000 INTERUNIT Magnesium Oxide (Mag-Ox Tab) 400 mg BID PO 04/26/17 09:00 05/26/17 08:59 04/26/17 09:25 400 MG Impression (1) Hypocalcemia (2) Prostate cancer (3) Hypertension Mr. 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 He developed severe hypocalcemia following Denosumab infusion. Renal function is normal. 25OH D deficiency documented on presentation is being treated with ergocalciferol 40768 IU. Calcitriol is also being provided. The patient is taking PO calcium in the form of TUMs and Oscal. Aggressive replacement with PO and IV calcium continues. The patient has had associated hypomagnesemia. I started oral magnesium replacement today. Recommendations -- IV calcium gluconate from 2 g/hr -- Mg Oxide 400 mg BID -- Continue Calcitriol 4 mcg daily, OsCal 2500 QID, TUMS 2 grams TID -- Monitor serum calcium daily and repeat magnesium tomorrow AM -- Continue to monitor phosphorus level at least weekly
--- NOTE | 2017-04-26 13:31 | Hospitalist Progress Note ---
Hospitalist Progress Note Date of Service Apr 26, 2017. (Callie Avrizu ., [facility]) Subjective Pt evaluation today including: conversation w/ patient, physical exam, chart review, lab review, review of inpatient medication list Voiding: no voiding problems Mr. Greene continues to ambulate the halls frequently. No events on tele. He has no complaints ROS Constitutional: no chills, aches, sweats or fever Respiratory: no sob,cough, sputum, or wheezing Cardiac: no chest pain, palpitations, edema, orthopnea or lightheadedness GI: no abdominal pain, nausea, vomiting, diarrhea or constipation : no dysuria or hesitancy Extremities: no joint pain or weakness Skin: no rash All other systems reviewed and negative (Callie Arvizu CRNP) Medications Medications Administered Medications (Trade) Dose Ordered Sig/Jonathan Route Start Time Stop Time Status Last Admin Dose Admin Sodium Chloride 1,000 ml @ 125 mls/hr Q8H STAT IV 03/15/17 10:09 03/15/17 16:58 DC 03/15/17 13:23 125 MLS/HR Sodium Chloride 1,000 ml @ 999 mls/hr Q1H1M STAT IV 03/15/17 10:22 03/15/17 11:22 DC 03/15/17 10:22 999 MLS/HR Calcium Gluconate (Calcium Gluconate 10%) 1,000 mg NOW STAT IV 03/15/17 12:26 03/15/17 12:28 DC 03/15/17 12:48 1,000 MG Magnesium Sulfate (Magnesium Sulfate) 2 gm NOW STAT IV 03/15/17 12:26 03/15/17 12:28 DC 03/15/17 13:35 2 GM Ceftriaxone Sodium (Rocephin Inj) 1 gm NOW STAT IV 03/15/17 12:26 03/15/17 12:28 DC 03/15/17 13:22 1 GM Calcium Gluconate 1000 mg/Sodium Chloride 60 ml @ 240 mls/hr NOW STAT IV 03/15/17 16:06 03/15/17 16:20 DC 03/15/17 17:33 240 MLS/HR Tamsulosin HCl (Flomax Cap) 0.8 mg HS PO 03/15/17 21:00 05/10/17 20:59 04/25/17 20:26 0.8 MG Pantoprazole Sodium (Protonix Tab) 40 mg QAM PO 03/16/17 09:00 05/10/17 08:59 04/26/17 09:01 40 MG Ranitidine HCl (zANTac TAB) 300 mg HS PO 03/15/17 21:00 05/10/17 20:59 04/25/17 20:25 300 MG Ceftriaxone Sodium 1 gm/ Dextrose 50 ml @ 100 mls/hr Q24H IV 03/16/17 14:00 03/17/17 12:03 DC 03/16/17 13:03 100 MLS/HR Docusate Sodium (coLACE CAP) 100 mg BID PO 03/15/17 21:00 05/10/17 20:59 04/26/17 09:01 100 MG Heparin Sodium (Porcine) (Heparin Sq 5000 Unit/0.5ml) 5,000 unit Q12 SQ 03/15/17 21:00 05/10/17 20:59 04/26/17 09:14 5,000 UNIT Desonide (Desowen 0.05% Crm) 1 appln BID EXT 03/15/17 21:00 03/29/17 18:53 DC 03/29/17 08:17 1 APPLN Nystatin (Mycostatin Susp) 5 ml QID PO 03/15/17 17:00 03/25/17 16:59 DC 03/25/17 12:19 5 ML Nystatin (Mycostatin Powder) 1 appln BID EXT 03/15/17 21:00 04/14/17 20:59 DC 04/14/17 09:12 1 APPLN Ergocalciferol (Vitamin D Cap) 50,000 interunit NOW ONCE PO 03/15/17 17:00 03/15/17 17:01 DC 03/15/17 17:32 50,000 INTERUNIT Calcitriol (Rocaltrol Cap) 0.25 mcg 1700 ONCE PO 03/15/17 17:00 03/15/17 17:01 DC 03/15/17 17:31 0.25 MCG Calcium Carbonate (Tums Chew Tab) 1,000 mg NOW ONCE PO 03/15/17 17:00 03/15/17 17:01 DC 03/15/17 17:32 1,000 MG Calcium Carbonate (Tums Chew Tab) 1,000 mg QAM PO 03/16/17 09:00 03/16/17 09:00 DC 03/16/17 07:59 1,000 MG Sodium Phosphate 15 mmol/Sodium Chloride 255 ml @ 102 mls/hr 1800 ONCE IV 03/15/17 18:00 03/15/17 20:29 DC 03/15/17 18:50 102 MLS/HR Calcium Gluconate 2000 mg/Sodium Chloride 70 ml @ 240 mls/hr 2030 ONCE IV 03/15/17 20:30 03/15/17 20:47 DC 03/16/17 00:15 240 MLS/HR Calcium Gluconate 3000 mg/Sodium Chloride 80 ml @ 160 mls/hr NOW ONCE IV 03/16/17 02:00 03/16/17 02:29 DC 03/16/17 02:05 160 MLS/HR Magnesium Sulfate 1 gm/Prmx 100 ml @ 100 mls/hr TODAY@0800,0900 IV 03/16/17 08:00 03/16/17 09:59 DC 03/16/17 10:22 100 MLS/HR Calcium Carbonate (Tums Chew Tab) 1,000 mg QID PO 03/16/17 09:00 03/16/17 15:24 DC 03/16/17 13:03 1,000 MG Calcium Gluconate 2000 mg/Sodium Chloride 70 ml @ 240 mls/hr 1000 ONCE IV 03/16/17 10:00 03/16/17 10:17 DC 03/16/17 11:57 240 MLS/HR Calcium Carbonate (Tums Chew Tab) 2,000 mg QID PO 03/16/17 17:00 05/10/17 16:59 04/26/17 12:55 2,000 MG Potassium/ Phosphorus/Sodium (Phospha 250 Neutral 155-852-130 Mg) 1 tab QID PO 03/16/17 17:00 04/09/17 08:38 DC 04/08/17 21:15 1 TAB Sodium Phosphate 21 mmol/Sodium Chloride 507 ml @ 144 mls/hr ONE ONCE IV 03/16/17 15:30 03/16/17 19:01 DC 03/16/17 15:47 144 MLS/HR Calcium Gluconate 2000 mg/Sodium Chloride 70 ml @ 240 mls/hr NOW STAT IV 03/16/17 15:28 03/16/17 15:45 DC 03/16/17 15:47 240 MLS/HR Calcium Gluconate 1000 mg/Sodium Chloride 60 ml @ 240 mls/hr NOW STAT IV 03/16/17 17:12 03/16/17 17:26 DC 03/16/17 17:41 240 MLS/HR Calcium Gluconate 1000 mg/Sodium Chloride 60 ml @ 120 mls/hr NOW ONCE IV 03/16/17 19:45 03/16/17 20:14 DC 03/16/17 19:54 120 MLS/HR Calcium Gluconate 1000 mg/Sodium Chloride 60 ml @ 240 mls/hr NOW STAT IV 03/17/17 04:32 03/17/17 04:46 DC 03/17/17 04:51 240 MLS/HR Calcium Gluconate 3000 mg/Sodium Chloride 80 ml @ 160 mls/hr 0900 ONCE IV 03/17/17 09:00 03/17/17 09:29 DC 03/17/17 09:00 160 MLS/HR Magnesium Sulfate 1 gm/Prmx 100 ml @ 100 mls/hr 0930,1030 IV 03/17/17 09:30 03/17/17 11:29 DC 03/17/17 10:25 100 MLS/HR Cholecalciferol (Vitamin D Tab) 1,000 inter.unit QAM PO 03/18/17 09:00 03/18/17 09:00 DC 03/18/17 07:43 1,000 INTER.UNIT Cholecalciferol (Vitamin D Tab) 1,000 inter.unit 0942 ONCE PO 03/17/17 09:42 03/17/17 09:44 DC 03/17/17 10:22 1,000 INTER.UNIT Calcitriol (Rocaltrol Cap) 1 mcg NOW ONCE PO 03/17/17 09:45 03/17/17 09:55 DC 03/17/17 10:22 1 MCG Calcium Gluconate 3000 mg/Sodium Chloride 80 ml @ 160 mls/hr 1130 ONCE IV 03/17/17 11:30 03/17/17 11:59 DC 03/17/17 11:25 160 MLS/HR Cephalexin Monohydrate (Keflex Cap) 500 mg BID PO 03/17/17 13:00 03/17/17 19:12 DC 03/17/17 14:57 500 MG Calcium Gluconate 3000 mg/Sodium Chloride 80 ml @ 160 mls/hr 1500 ONCE IV 03/17/17 15:00 03/17/17 15:29 DC 03/17/17 14:59 160 MLS/HR Calcium Gluconate 3000 mg/Sodium Chloride 80 ml @ 240 mls/hr Q6H IV 03/17/17 22:00 03/18/17 08:45 DC 03/18/17 04:16 240 MLS/HR Calcium Gluconate 1000 mg/Sodium Chloride 60 ml @ 240 mls/hr NOW STAT IV 03/17/17 19:39 03/17/17 19:53 DC 03/17/17 20:32 240 MLS/HR Magnesium Sulfate 1 gm/Prmx 100 ml @ 100 mls/hr Q1H IV 03/18/17 09:30 03/18/17 11:29 DC 03/18/17 15:15 100 MLS/HR Cholecalciferol (Vitamin D Tab) 5,000 inter.unit QAM PO 03/18/17 09:00 03/26/17 12:23 DC 03/26/17 08:37 5,000 INTER.UNIT Calcitriol (Rocaltrol Cap) 1 mcg QAM PO 03/18/17 09:00 03/27/17 08:41 DC 03/27/17 07:56 1 MCG Calcium Gluconate 4000 mg/Sodium Chloride 90 ml @ 120 mls/hr 0900 ONCE IV 03/18/17 09:00 03/18/17 09:44 DC 03/18/17 08:54 120 MLS/HR Calcium Gluconate 4000 mg/Sodium Chloride 90 ml @ 120 mls/hr 1000 IV 03/18/17 10:00 03/18/17 11:00 DC 03/18/17 09:52 120 MLS/HR Calcium Carbonate (oS-Randy 500 TAB) 1,250 mg QID PO 03/18/17 09:00 05/10/17 08:59 04/26/17 12:54 1,250 MG Trimethoprim/ Sulfamethoxazole (Septra Ds 800/ 160MG Tab) 1 tab DAILY PO 03/19/17 09:00 03/29/17 08:59 DC 03/29/17 08:16 1 TAB Trimethoprim/ Sulfamethoxazole (Septra Ds 800/ 160MG Tab) 1 tab 1300 ONCE PO 03/18/17 13:00 03/18/17 13:01 DC 03/18/17 13:01 1 TAB Calcium Gluconate 3000 mg/Sodium Chloride 80 ml @ 160 mls/hr 1500 IV 03/18/17 15:00 03/18/17 15:29 DC 03/18/17 15:00 160 MLS/HR Heparin Sodium (Porcine) (Heparin 10 Unit/ ml 5 ml Flush) 5 ml PRN PRN FLUSH 03/18/17 15:30 05/10/17 15:29 04/06/17 05:39 5 ML Calcium Gluconate 4000 mg/Sodium Chloride 90 ml @ 120 mls/hr NOW STAT IV 03/18/17 21:35 03/18/17 22:19 DC 03/18/17 22:21 120 MLS/HR Calcium Gluconate 4000 mg/Sodium Chloride 90 ml @ 120 mls/hr ONE ONCE IV 03/19/17 00:00 03/19/17 00:44 DC 03/19/17 00:01 120 MLS/HR Calcium Gluconate 2000 mg/Sodium Chloride 70 ml @ 240 mls/hr 0800 ONCE IV 03/19/17 08:00 03/19/17 08:17 DC 03/19/17 08:48 240 MLS/HR Sodium Phosphate 15 mmol/Sodium Chloride 255 ml @ 88 mls/hr 0900 ONCE IV 03/19/17 09:00 03/19/17 11:53 DC 03/19/17 08:48 88 MLS/HR Amoxicillin (Amoxil Cap) 250 mg TID PO 03/19/17 21:00 03/24/17 20:59 DC 03/24/17 21:17 250 MG Amoxicillin (Amoxil Cap) 250 mg TODAY@1515 ONCE PO 03/19/17 15:15 03/19/17 15:23 DC 03/19/17 15:33 250 MG Calcium Gluconate 2000 mg/Sodium Chloride 70 ml @ 240 mls/hr NOW STAT IV 03/19/17 17:53 03/19/17 18:10 DC 03/19/17 18:12 240 MLS/HR Calcium Gluconate 2000 mg/Sodium Chloride 70 ml @ 140 mls/hr NOW ONCE IV 03/19/17 19:00 03/19/17 19:29 DC 03/19/17 19:23 140 MLS/HR Calcium Gluconate 4000 mg/Sodium Chloride 140 ml @ 140 mls/hr 0900 IV 03/20/17 09:00 03/20/17 12:00 DC 03/20/17 09:01 140 MLS/HR Magnesium Sulfate 1 gm/Prmx 100 ml @ 100 mls/hr Q1H IV 03/20/17 10:00 03/20/17 11:59 DC 03/20/17 11:13 100 MLS/HR Calcium Gluconate 4000 mg/Sodium Chloride 140 ml @ 140 mls/hr TODAY@1645 ONCE IV 03/20/17 16:45 03/20/17 17:44 DC 03/20/17 16:53 140 MLS/HR Calcium Gluconate 3000 mg/Dextrose 280 ml @ 125 mls/hr Q2H15M IV 03/21/17 10:30 03/21/17 12:44 DC 03/21/17 10:58 125 MLS/HR Calcium Gluconate 3000 mg/Sodium Chloride 80 ml @ 160 mls/hr 1630 ONCE IV 03/21/17 16:30 03/21/17 16:59 DC 03/21/17 16:36 160 MLS/HR Calcium Gluconate 4000 mg/Dextrose 290 ml @ 125 mls/hr Q24H IV 03/22/17 11:30 03/23/17 09:32 DC 03/22/17 12:32 125 MLS/HR Calcium Gluconate 4000 mg/Dextrose 290 ml @ 125 mls/hr Q2H20M ONCE IV 03/22/17 18:45 03/22/17 21:04 DC 03/22/17 19:16 125 MLS/HR Calcium Gluconate 4000 mg/Dextrose 290 ml @ 150 mls/hr Q1H56M IV 03/23/17 09:45 03/23/17 11:40 DC 03/23/17 10:22 150 MLS/HR Calcium Gluconate 4000 mg/Dextrose 290 ml @ 150 mls/hr Q1H56M ONCE IV 03/23/17 16:45 03/23/17 18:40 DC 03/23/17 17:00 150 MLS/HR Calcium Gluconate 4000 mg/Sodium Chloride 540 ml @ 125 mls/hr Q4H20M IV 03/24/17 09:45 03/25/17 09:44 DC 03/25/17 10:05 125 MLS/HR Calcium Gluconate 4000 mg/Sodium Chloride 540 ml @ 125 mls/hr Q4H20M IV 03/25/17 14:30 03/26/17 12:23 DC 03/26/17 09:59 125 MLS/HR Magnesium Sulfate 1 gm/Prmx 100 ml @ 100 mls/hr NOW STAT IV 03/26/17 14:41 03/26/17 15:40 DC 03/26/17 16:35 100 MLS/HR Calcitriol (Rocaltrol Cap) 2 mcg QAM PO 03/28/17 08:00 03/29/17 13:49 DC 03/29/17 08:15 2 MCG Calcium Gluconate 2000 mg/Sodium Chloride 520 ml @ 125 mls/hr Q4H10M IV 03/27/17 09:00 03/28/17 08:25 DC 03/28/17 05:36 125 MLS/HR Calcium Gluconate 06377 mg/Sodium Chloride 600 ml @ 60 mls/hr Q10H IV 03/28/17 09:00 03/29/17 08:58 DC 03/29/17 06:16 60 MLS/HR Potassium Phosphate 30 mmol/ Sodium Chloride 510 ml @ 88 mls/hr TODAY@1100 IV 03/29/17 11:00 03/29/17 16:48 DC 03/29/17 11:26 88 MLS/HR Heparin Sodium (Porcine) (Heparin 10 Unit/ ml 5 ml Flush) 5 ml PRN PRN FLUSH 03/29/17 11:00 04/28/17 10:59 04/20/17 05:50 5 ML Calcitriol (Rocaltrol Cap) 3 mcg QAM PO 03/30/17 08:00 04/10/17 12:17 DC 04/10/17 08:00 3 MCG Calcium Gluconate 2000 mg/Sodium Chloride 520 ml @ 125 mls/hr Q4H10M IV 03/29/17 16:30 03/31/17 15:59 DC 03/31/17 12:44 125 MLS/HR Magnesium Sulfate 1 gm/Prmx 100 ml @ 100 mls/hr Q1H IV 03/30/17 08:30 03/30/17 10:29 DC 03/30/17 11:49 100 MLS/HR Potassium Phosphate 15 mmol/ Sodium Chloride 255 ml @ 113.333 mls/hr ONE ONCE IV 03/30/17 08:30 03/30/17 10:44 DC 03/30/17 09:37 113.333 MLS/HR Hydrochlorothiazide (Hydrochlorothiazide Tab) 25 mg QAM PO 03/30/17 13:00 04/14/17 11:19 DC 04/14/17 08:08 25 MG Calcium Gluconate 3000 mg/Sodium Chloride 130 ml @ 260 mls/hr NOW STAT IV 03/31/17 07:13 03/31/17 07:42 DC 03/31/17 07:53 260 MLS/HR Sodium Phosphate 15 mmol/Sodium Chloride 255 ml @ 85 mls/hr NOW STAT IV 03/31/17 09:42 03/31/17 12:41 DC 03/31/17 11:10 85 MLS/HR Calcium Gluconate 4000 mg/Sodium Chloride 540 ml @ 125 mls/hr Q4H20M IV 03/31/17 17:00 04/01/17 11:19 DC 04/01/17 11:14 125 MLS/HR Calcium Gluconate 2000 mg/Sodium Chloride 520 ml @ 125 mls/hr Q4H10M IV 04/01/17 15:30 04/02/17 13:24 DC 04/02/17 12:36 125 MLS/HR Sodium Phosphate 9 mmol/Sodium Chloride 253 ml @ 88 mls/hr TODAY@1445 ONCE IV 04/01/17 14:45 04/01/17 17:37 DC 04/01/17 15:42 88 MLS/HR Nystatin (Mycostatin Susp) 5 ml QID PO 04/01/17 17:00 04/11/17 16:59 DC 04/11/17 11:55 5 ML Calcium Gluconate 4000 mg/Sodium Chloride 540 ml @ 125 mls/hr Q4H20M IV 04/03/17 08:30 04/03/17 12:49 DC 04/03/17 08:29 125 MLS/HR Magnesium Sulfate 1 gm/Prmx 100 ml @ 100 mls/hr Q1H IV 04/03/17 18:00 04/03/17 19:59 DC 04/03/17 19:02 100 MLS/HR Calcium Gluconate 4000 mg/Sodium Chloride 540 ml @ 125 mls/hr Q4H20M ONCE IV 04/03/17 18:00 04/03/17 22:19 DC 04/03/17 17:55 125 MLS/HR Calcium Gluconate 4000 mg/Sodium Chloride 540 ml @ 125 mls/hr Q4H20M IV 04/03/17 23:00 04/05/17 17:36 DC 04/05/17 15:30 125 MLS/HR Calcium Gluconate 4000 mg/Sodium Chloride 540 ml @ 125 mls/hr Q4H20M IV 04/06/17 09:15 04/10/17 12:24 DC 04/10/17 10:15 125 MLS/HR Magnesium Sulfate 1 gm/Prmx 100 ml @ 100 mls/hr Q1H IV 04/08/17 08:00 04/08/17 09:59 DC 04/08/17 09:10 100 MLS/HR Sodium Phosphate 15 mmol/Sodium Chloride 255 ml @ 88 mls/hr 1000 ONCE IV 04/08/17 10:00 04/08/17 12:53 DC 04/08/17 10:07 88 MLS/HR Benzonatate (Tessalon Perles Cap) 100 mg TID PRN PO 04/08/17 10:45 05/08/17 10:44 04/10/17 20:37 100 MG Potassium/ Phosphorus/Sodium (Phospha 250 Neutral 155-852-130 Mg) 2 tab QID PO 04/09/17 12:00 04/10/17 12:47 DC 04/10/17 11:37 2 TAB Sodium Phosphate 15 mmol/Sodium Chloride 255 ml @ 88 mls/hr ONE ONCE IV 04/09/17 09:00 04/09/17 11:53 DC 04/09/17 08:59 88 MLS/HR Calcitriol (Rocaltrol Cap) 4 mcg QAM PO 04/11/17 08:00 05/11/17 07:59 04/26/17 09:05 4 MCG Ergocalciferol (Vitamin D Cap) 50,000 interunit DAILY PO 04/11/17 08:00 04/23/17 07:59 DC 04/22/17 07:56 50,000 INTERUNIT Ergocalciferol (Vitamin D Cap) 50,000 interunit NOW ONCE PO 04/10/17 13:00 04/10/17 13:01 DC 04/10/17 13:03 50,000 INTERUNIT Calcium Gluconate 4000 mg/Sodium Chloride 140 ml @ 70 mls/hr Q2H IV 04/10/17 14:00 04/13/17 09:27 DC 04/13/17 09:01 70 MLS/HR Magnesium Sulfate 1 gm/Prmx 100 ml @ 100 mls/hr Q1H IV 04/10/17 13:00 04/10/17 14:59 DC 04/10/17 14:08 100 MLS/HR Potassium/ Phosphorus/Sodium (Phospha 250 Neutral 155-852-130 Mg) 2 tab QID PO 04/10/17 17:00 05/10/17 16:59 04/26/17 12:55 2 TAB Magnesium Sulfate 1 gm/Prmx 100 ml @ 100 mls/hr NOW STAT IV 04/11/17 11:22 04/11/17 12:21 DC 04/11/17 11:55 100 MLS/HR Sodium Phosphate 15 mmol/Sodium Chloride 255 ml @ 127.5 mls/ hr ONE ONCE IV 04/12/17 08:45 04/12/17 10:44 DC 04/12/17 09:21 127.5 MLS/HR Magnesium Sulfate 1 gm/Prmx 100 ml @ 100 mls/hr 0800 IV 04/13/17 08:00 04/13/17 10:00 DC 04/13/17 08:06 100 MLS/HR Magnesium Oxide (Mag-Ox Tab) 400 mg BID PO 04/13/17 09:00 04/16/17 08:59 DC 04/15/17 21:03 400 MG Calcium Gluconate 48671 mg/Sodium Chloride 700 ml @ 35 mls/hr Q10H IV 04/13/17 11:00 04/15/17 11:06 DC 04/14/17 17:11 35 MLS/HR Magnesium Sulfate 1 gm/Prmx 100 ml @ 100 mls/hr Q1H IV 04/13/17 12:30 04/13/17 14:29 DC 04/13/17 14:19 100 MLS/HR Calcium Gluconate 79026 mg/Sodium Chloride 700 ml @ 35 mls/hr Q20H IV 04/15/17 11:15 04/15/17 21:16 DC 04/15/17 11:30 35 MLS/HR Calcium Gluconate 01438 mg/Sodium Chloride 700 ml @ 70 mls/hr Q10H IV 04/15/17 21:30 04/21/17 10:44 DC 04/21/17 07:45 70 MLS/HR Calcium Gluconate 44492 mg/Sodium Chloride 600 ml @ 120 mls/hr Q5H IV 04/21/17 12:00 04/22/17 15:00 DC 04/22/17 15:04 120 MLS/HR Magnesium Sulfate 1 gm/Prmx 100 ml @ 100 mls/hr Q1H IV 04/22/17 08:15 04/22/17 10:14 DC 04/22/17 09:28 100 MLS/HR Calcium Gluconate 05265 mg/Sodium Chloride 700 ml @ 70 mls/hr Q10H IV 04/22/17 15:00 05/22/17 14:59 04/26/17 11:31 70 MLS/HR Magnesium Sulfate 1 gm/Prmx 100 ml @ 100 mls/hr ONE ONCE IV 04/23/17 10:00 04/23/17 10:59 DC 04/23/17 09:49 100 MLS/HR Ergocalciferol (Vitamin D Cap) 50,000 interunit DAILY PO 04/24/17 09:00 05/24/17 08:59 04/26/17 09:19 50,000 INTERUNIT Magnesium Oxide (Mag-Ox Tab) 400 mg BID PO 04/26/17 09:00 05/26/17 08:59 04/26/17 09:25 400 MG Magnesium Sulfate 1 gm/Prmx 100 ml @ 100 mls/hr NOW ONCE IV 04/26/17 10:15 04/26/17 11:14 DC 04/26/17 11:30 100 MLS/HR (Callie Arvizu, ALMA ROSA) Objective Vital Signs Date Time Temp Pulse Resp B/P (MAP) Pulse Ox O2 Delivery O2 Flow Rate FiO2 04/26/17 12:05 36.6 91 16 114/54 (74) 96 04/26/17 08:00 97 Room Air 97.0 04/26/17 07:57 36.7 83 16 134/73 (93) 97 04/26/17 04:22 36.6 80 100/58 (72) 94 Room Air 04/26/17 04:00 Room Air 04/26/17 00:00 Room Air 04/25/17 23:34 36.6 90 18 104/49 (67) 92 Room Air 04/25/17 20:00 Room Air 04/25/17 19:47 37.0 91 19 105/63 (77) 95 Room Air 04/25/17 16:17 37.0 86 18 94/47 (63) 94 Room Air 04/25/17 16:00 Room Air (Callie Arvizu CRNP) Physical Exam Notes: General: no distress Eyes: normal inspection, PERLL Respiratory: chest non tender, clear to auscultation, normal breath sounds, no respiratory distress, no accessory muscle use Cardiac: regular rate and rhythm, no rub or gallop, no murmur, no edema, no jvd GI/: active bowel sounds, no abd pain or tenderness, soft, non distended Extremities: normal range of motion, normal strength, non tender Neuro/Psych: alert and oriented x 3, normal mood and affect Skin: normal color, dry (Callie Arvizu CRNP) Laboratory Results Last 24 Hours Test 04/26/17 05:14 Sodium Level 140 mmol/L Potassium Level 4.7 mmol/L Chloride Level 108 mmol/L Carbon Dioxide Level 24 mmol/L Anion Gap 8.0 mmol/L Blood Urea Nitrogen 20 mg/dl Creatinine 1.05 mg/dl Est Creatinine Clear Calc Drug Dose 46.4 ml/min Estimated GFR () 75.7 Estimated GFR (Non- 65.3 BUN/Creatinine Ratio 18.9 Random Glucose 87 mg/dl Calcium Level 9.6 mg/dl Magnesium Level 1.6 mg/dl (Callie Arvizu CRNP) Assessment and Plan Mr. Greene is an 81 year old man with a history of prostate cancer and osteoblastic mets that presented with fatigue and found to have severe hypocalcemia thought secondary to his Denosumab (03/02/2017). Hypocalcemia/hypophosphatemia - The patient has now been on 41 days of IV calcium and oral calcium therapy - Secondary to Denosumab injection in the setting of metastatic prostate CA - calcium dropped to 7.7 on 04/22 after decreasing infusion rate to 1gm/hr for 12 - continue 2gm/h - Continue oral Calcium and Calcitriol - Vitamin D level low 03/15 but has been wnl since then - continue ergocalciferol supplementation - Nephrology consulted - continue telemetry monitoring while receiving calcium infusions Hypomagnesemia/ Hypophosphatemia - 400 mg po bid - iv mag 1g this morning - repeat mag tomorrow morning - per nephro rec - check phos at least once per week UTI; Stenotrophomonas and enterococcus; chronic bey - Bactrim/ Amoxil course completed (10 day course) --> Initially treated with Rocephin on admission - continue bey catheter Superficial thrombophlebitis of right arm- resolved - Ultrasound confirmation of superficial thrombus involving the cephalic vein - Avoid IV line in right UE - Warm compress Prostate Ca with mets to bone - patient has not had any pain - continue tamsulosin and finasteride Intertrigo/thrush - resolved Seborrheic dermatitis - Completed 14 day course of Desonide for face - resolved CKD III stable - Avoid nephrotoxins where possible DVT Prophylaxis - Heparin subq bid Code Status - DNR (Callie Arvizu, ALMA ROSA) .Supervising Note Dr. Pardo I performed a history and physical examination on the patient. I reviewed above note and agree with it. I discussed plan with APC and patient. During my face to face encounter with the patient, I answered all of the patient's questions. will continue with IV calcium 2gr per hour. (Kenny Pardo M.D.)
[2017-04-26] MEDS: TAMSULOSIN HCL 0.4 MG CAP PO SCH (21:03)
[2017-04-26] MEDS: RANITIDINE HCL 150 MG TAB PO SCH (21:05)
[2017-04-27] VITALS (7 sets, daily range): BP systolic 105–130; BP diastolic 49–71; PULSE 76–94; TEMP 36.3–36.8; O2SAT 95–98
[2017-04-27] MEDS: CALCIUM GLUCONATE IV SCH ×2 (07:18→17:07)
[2017-04-27] MEDS: SODIUM CHLORIDE 0.9% IV SCH ×2 (07:18→17:07)
[2017-04-27] MEDS: POT PHOSPHATE MONOBASIC W/ SOD TAB PO SCH ×4 (07:59→21:02)
[2017-04-27] MEDS: MAGNESIUM OXIDE 400 MG TAB PO SCH ×2 (07:59→21:02)
[2017-04-27] MEDS: CALCIUM CARBONATE 1250MG TAB PO SCH ×4 (07:59→21:01)
[2017-04-27] MEDS: ERGOCALCIFEROL 50,000 INTER.UNIT CAP PO SCH (07:59)
[2017-04-27] MEDS: CALCIUM CARBONATE 500 MG CHEWABLE PO SCH ×4 (07:59→21:03)
[2017-04-27] MEDS: DOCUSATE SODIUM 100 MG CAP PO SCH ×2 (08:00→21:01)
[2017-04-27] MEDS: CALCITRIOL 0.25 MCG CAP PO SCH (08:00)
[2017-04-27] MEDS: PANTOprazole SOD 40 MG TAB PO SCH (08:00)
[2017-04-27] MEDS: HEPARIN SOD 5000 UNIT/0.5 ML CARP SQ SCH ×2 (08:08→21:11)
--- NOTE | 2017-04-27 08:16 | Nephrology Progress Note ---
Nephrology Progress Note Date of Service Apr 27, 2017. Chief Complaint Hypocalcemia Subjective No acute events overnight. No complaints this morning. Mr. Greene feels well. Calcium infusion without complications. Review of Systems A complete review of systems was performed. Pertinent positives are noted above. All other systems are negative. Vital Signs Last 8 Hrs Date Time Temp Pulse Resp B/P (MAP) Pulse Ox O2 Delivery O2 Flow Rate FiO2 04/27/17 07:24 36.5 88 18 122/68 (86) 98 Room Air 04/27/17 05:35 36.3 76 17 105/49 (67) 95 Room Air 04/27/17 04:00 Room Air 04/27/17 00:15 36.8 83 19 115/67 (83) 95 Room Air Last Recorded Weight Weight (Kilograms): 62.700 Physical Exam General Appearance: WD/WN, no apparent distress Head: normocephalic, atraumatic Eyes: normal inspection, sclerae normal ENT: normal ENT inspection, pharynx normal Neck: supple, no JVD Respiratory/Chest: lungs clear, no respiratory distress, no accessory muscle use Cardiovascular: regular rate, rhythm, no gallop Back: no CVA tenderness Abdomen/GI: non tender, soft Extremities/Musculoskelatal: normal inspection, no pedal edema Neurologic/Psych: alert, normal mood/affect Social History Drug Use: none Marital Status: Housing Status: lives with family (lives with son) 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 04/27/17 05:19 Calcium Level 10.0 mg/dl (8.5-10.1) Ionized Calcium 1.26 mmol/l (1.12-1.32) Magnesium Level 1.7 mg/dl (1.8-2.4) Allergies Coded Allergies: No Known Allergies (Unverified , 03/15/17) Medications Current Inpatient Medications Medications (Trade) Dose Ordered Sig/Jonathan Route Start Time Stop Time Status Last Admin Dose Admin Acetaminophen (Tylenol Tab) 650 mg Q4H PRN PO 03/15/17 14:15 05/10/17 14:14 Tamsulosin HCl (Flomax Cap) 0.8 mg HS PO 03/15/17 21:00 05/10/17 20:59 04/26/17 21:03 0.8 MG Miscellaneous Information (Order Awaiting Action) 1 ea QS N/A 2/1/18 16:00 05/10/17 15:59 Pantoprazole Sodium (Protonix Tab) 40 mg QAM PO 03/16/17 09:00 05/10/17 08:59 04/27/17 08:00 40 MG Ranitidine HCl (zANTac TAB) 300 mg HS PO 03/15/17 21:00 05/10/17 20:59 04/26/17 21:05 300 MG Polyethylene (Miralax Powder Packet) 17 gm DAILY PRN PO 03/15/17 15:00 05/10/17 14:59 Docusate Sodium (coLACE CAP) 100 mg BID PO 03/15/17 21:00 05/10/17 20:59 04/27/17 08:00 100 MG Bisacodyl (Dulcolax Supp) 10 mg DAILY PRN OK 03/15/17 15:00 05/10/17 14:59 Heparin Sodium (Porcine) (Heparin Sq 5000 Unit/0.5ml) 5,000 unit Q12 SQ 03/15/17 21:00 05/10/17 20:59 04/27/17 08:08 5,000 UNIT Calcium Carbonate (Tums Chew Tab) 2,000 mg QID PO 03/16/17 17:00 05/10/17 16:59 04/27/17 07:59 2,000 MG Calcium Carbonate (oS-Randy 500 TAB) 1,250 mg QID PO 03/18/17 09:00 05/10/17 08:59 04/27/17 07:59 1,250 MG Miscellaneous (Tap Water Enema) 1 ea Q2D PRN OK 03/18/17 13:30 05/10/17 13:29 Heparin Sodium (Porcine) (Heparin 10 Unit/ ml 5 ml Flush) 5 ml PRN PRN FLUSH 03/18/17 15:30 05/10/17 15:29 04/06/17 05:39 5 ML Heparin Sodium (Porcine) (Heparin 10 Unit/ ml 5 ml Flush) 5 ml PRN PRN FLUSH 03/29/17 11:00 04/28/17 10:59 04/20/17 05:50 5 ML Benzonatate (Tessalon Perles Cap) 100 mg TID PRN PO 04/08/17 10:45 05/08/17 10:44 04/10/17 20:37 100 MG Calcitriol (Rocaltrol Cap) 4 mcg QAM PO 04/11/17 08:00 05/11/17 07:59 04/27/17 08:00 4 MCG Potassium/ Phosphorus/Sodium (Phospha 250 Neutral 155-852-130 Mg) 2 tab QID PO 04/10/17 17:00 05/10/17 16:59 04/27/17 07:59 2 TAB Calcium Gluconate 12560 mg/Sodium Chloride 700 ml @ 70 mls/hr Q10H IV 04/22/17 15:00 05/22/17 14:59 04/27/17 07:18 70 MLS/HR Ergocalciferol (Vitamin D Cap) 50,000 interunit DAILY PO 04/24/17 09:00 05/24/17 08:59 04/27/17 07:59 50,000 INTERUNIT Magnesium Oxide (Mag-Ox Tab) 400 mg BID PO 04/26/17 09:00 05/26/17 08:59 04/27/17 07:59 400 MG Impression (1) Hypocalcemia (2) Prostate cancer (3) Hypertension Mr. 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 He developed severe hypocalcemia following Denosumab infusion. Renal function is normal. 25OH D deficiency documented on presentation is being treated with ergocalciferol 25985 IU. Calcitriol is also being provided. The patient is taking PO calcium in the form of TUMs and Oscal. Aggressive replacement with PO and IV calcium continues. The patient has had associated hypomagnesemia. He is tolerating oral magnesium replacement. Recommendations -- IV calcium gluconate from 2 g/hr; will reduce to 1 g/hr once current infusion is complete -- Mg Oxide 400 mg BID -- Continue Calcitriol 4 mcg daily, OsCal 2500 QID, TUMS 2 grams TID -- Monitor serum calcium daily and repeat magnesium tomorrow AM -- Monitor phosphorus level at least weekly -- We have discussed various forms of management including considerations for dialysis over the past week. UR has discussed consideration for LTACH for continued treatment. At this time, Mr. Greene is showing an improving trend in serum calcium and progress towards weaning of IV calcium.
--- NOTE | 2017-04-27 08:49 | Progress Note ---
Subjective Date of Service: Apr 27, 2017. Subjective Pt evaluation today including: conversation w/ patient, chart review, lab review Voiding: bey catheter in place (patent, draining clear, yellow urine ) 81 yo male with metastatic prostate cancer. Admitted for over a month now for hypocalcemia secondary to Denosumab. Calcium is 10.0 this morning. Goal is for a calcium level of 10.6 prior to discharge. The pt remains in good spirits. Denies pain. Problem List Medical Problems: (1) Dehydration Status: Acute (2) Failure to thrive Status: Acute (3) Hypomagnesemia Status: Acute (4) UTI (urinary tract infection) Status: Acute (5) Vomiting Status: Acute Review of Systems Constitutional: No fever, No chills Respiratory: No shortness of breath Cardiac: No chest pain Abdomen: No pain, No nausea, No vomiting Male : No hematuria Heme: No abnormal bleeding/bruising Objective Vital Signs Date Time Temp Pulse Resp B/P (MAP) Pulse Ox O2 Delivery O2 Flow Rate FiO2 04/27/17 08:00 Room Air 04/27/17 07:24 36.5 88 18 122/68 (86) 98 Room Air 04/27/17 05:35 36.3 76 17 105/49 (67) 95 Room Air 04/27/17 04:00 Room Air 04/27/17 00:15 36.8 83 19 115/67 (83) 95 Room Air 04/27/17 00:00 Room Air 04/26/17 21:03 36.5 84 18 122/62 (82) 97 Room Air 04/26/17 20:00 Room Air 04/26/17 16:14 36.4 98 16 115/67 (83) 95 Room Air 04/26/17 16:00 Room Air 04/26/17 12:05 36.6 91 16 114/54 (74) 96 04/26/17 12:00 96 Room Air Physical Exam General Appearance: no apparent distress Eyes: normal inspection ENT: hearing grossly normal Neck: no JVD Respiratory/Chest: no respiratory distress, no accessory muscle use Cardiovascular: no JVD Extremities: normal inspection Neurologic/Psychiatric: alert, normal mood/affect, oriented x 3 Skin: normal color Laboratory Results Last 24 Hours Test 04/27/17 05:19 Calcium Level 10.0 mg/dl Ionized Calcium 1.26 mmol/l Magnesium Level 1.7 mg/dl Assessment and Plan A/P: Metastatic prostate cancer, hypocalcemia, urinary retention AFVSS. Per Dr. Gonzales, will attempt a trial of void today. If pt unable to void, will need bey catheter replaced. Management of hypocalcemia per primary service. Continue to plan for outpatient cysto once the pt has been discharged. Will continue to follow along with primary service. Continued [facility] stay due to: multiple IV medications needed Discharge planning: uncertain
[2017-04-27] MEDS: TAMSULOSIN HCL 0.4 MG CAP PO SCH (21:01)
[2017-04-27] MEDS: RANITIDINE HCL 150 MG TAB PO SCH (21:02)
--- NOTE | 2017-04-27 22:28 | Progress Note ---
Subjective Date of Service: Apr 27, 2017. Subjective Pt evaluation today including: conversation w/ patient 81 yo male who has no significant complaints today. He states that bey was removed by nursing staff and he will try to urinate today. Patient denies any fever. Son was in the room and was updated. Problem List Medical Problems: (1) Dehydration Status: Acute (2) Failure to thrive Status: Acute (3) Hypomagnesemia Status: Acute (4) UTI (urinary tract infection) Status: Acute (5) Vomiting Status: Acute Review of Systems Constitutional: No fever, No chills Eyes: No worsening of vision, No eye pain Respiratory: No cough, No sputum Cardiac: No chest pain Abdomen: No pain, No nausea Musculoskeletal: No joint pain Neurologic: No memory loss Psychiatric: No depression symptoms Heme: No abnormal bleeding/bruising Endo: No fatigue Skin: No rash All Other Systems: Reviewed and Negative Medications Current Inpatient Medications Medications (Trade) Dose Ordered Sig/Jonathan Route Start Time Stop Time Status Last Admin Dose Admin Acetaminophen (Tylenol Tab) 650 mg Q4H PRN PO 03/15/17 14:15 05/10/17 14:14 Tamsulosin HCl (Flomax Cap) 0.8 mg HS PO 03/15/17 21:00 05/10/17 20:59 04/27/17 21:01 0.8 MG Miscellaneous Information (Order Awaiting Action) 1 ea QS N/A 03/15/17 16:00 05/10/17 15:59 Pantoprazole Sodium (Protonix Tab) 40 mg QAM PO 03/16/17 09:00 05/10/17 08:59 04/27/17 08:00 40 MG Ranitidine HCl (zANTac TAB) 300 mg HS PO 03/15/17 21:00 05/10/17 20:59 04/27/17 21:02 300 MG Polyethylene (Miralax Powder Packet) 17 gm DAILY PRN PO 03/15/17 15:00 05/10/17 14:59 Docusate Sodium (coLACE CAP) 100 mg BID PO 03/15/17 21:00 05/10/17 20:59 04/27/17 21:01 100 MG Bisacodyl (Dulcolax Supp) 10 mg DAILY PRN IN 03/15/17 15:00 05/10/17 14:59 Heparin Sodium (Porcine) (Heparin Sq 5000 Unit/0.5ml) 5,000 unit Q12 SQ 03/15/17 21:00 05/10/17 20:59 04/27/17 21:11 5,000 UNIT Calcium Carbonate (Tums Chew Tab) 2,000 mg QID PO 03/16/17 17:00 05/10/17 16:59 04/27/17 21:03 2,000 MG Calcium Carbonate (oS-Randy 500 TAB) 1,250 mg QID PO 03/18/17 09:00 05/10/17 08:59 04/27/17 21:01 1,250 MG Miscellaneous (Tap Water Enema) 1 ea Q2D PRN IN 03/18/17 13:30 05/10/17 13:29 Heparin Sodium (Porcine) (Heparin 10 Unit/ ml 5 ml Flush) 5 ml PRN PRN FLUSH 03/18/17 15:30 05/10/17 15:29 04/06/17 05:39 5 ML Heparin Sodium (Porcine) (Heparin 10 Unit/ ml 5 ml Flush) 5 ml PRN PRN FLUSH 03/29/17 11:00 04/28/17 10:59 04/20/17 05:50 5 ML Benzonatate (Tessalon Perles Cap) 100 mg TID PRN PO 04/08/17 10:45 05/08/17 10:44 04/10/17 20:37 100 MG Calcitriol (Rocaltrol Cap) 4 mcg QAM PO 04/11/17 08:00 05/11/17 07:59 04/27/17 08:00 4 MCG Potassium/ Phosphorus/Sodium (Phospha 250 Neutral 155-852-130 Mg) 2 tab QID PO 04/10/17 17:00 05/10/17 16:59 04/27/17 21:02 2 TAB Ergocalciferol (Vitamin D Cap) 50,000 interunit DAILY PO 04/24/17 09:00 05/24/17 08:59 04/27/17 07:59 50,000 INTERUNIT Magnesium Oxide (Mag-Ox Tab) 400 mg BID PO 04/26/17 09:00 05/26/17 08:59 04/27/17 21:02 400 MG Calcium Gluconate 23998 mg/Sodium Chloride 600 ml @ 60 mls/hr Q10H IV 04/27/17 17:00 05/22/17 16:59 04/28/17 02:47 60 MLS/HR Objective Vital Signs Date Time Temp Pulse Resp B/P (MAP) Pulse Ox O2 Delivery O2 Flow Rate FiO2 04/27/17 20:38 36.6 94 18 126/68 (87) 97 Room Air 04/27/17 20:00 Room Air 04/27/17 16:00 Room Air 04/27/17 15:44 36.6 78 18 130/71 (90) 97 Room Air 04/27/17 12:00 Room Air 04/27/17 11:42 36.6 77 16 108/58 (75) 96 Room Air 04/27/17 08:00 Room Air 04/27/17 07:24 36.5 88 18 122/68 (86) 98 Room Air 04/27/17 05:35 36.3 76 17 105/49 (67) 95 Room Air 04/27/17 04:00 Room Air 04/27/17 00:15 36.8 83 19 115/67 (83) 95 Room Air 04/27/17 00:00 Room Air Physical Exam Comments: General: no distress Eyes: normal inspection, PERLL Respiratory: chest non tender, clear to auscultation, normal breath sounds, no respiratory distress, no accessory muscle use Cardiac: regular rate and rhythm, no rub or gallop, no murmur, no edema, no jvd GI/: active bowel sounds, no abd pain or tenderness, soft, non distended Extremities: normal range of motion, normal strength, non tender Neuro/Psych: alert and oriented x 3, normal mood and affect Skin: normal color, dry Laboratory Results Last 24 Hours Test 04/27/17 05:19 Calcium Level 10.0 mg/dl Ionized Calcium 1.26 mmol/l Magnesium Level 1.7 mg/dl Assessment and Plan Mr. Greene is an 81 year old man with a history of prostate cancer and osteoblastic mets that presented with fatigue and found to have severe hypocalcemia thought secondary to his Denosumab (03/02/2017). Hypocalcemia/hypophosphatemia - The patient has now been on 41 days of IV calcium and oral calcium therapy - Secondary to Denosumab injection in the setting of metastatic prostate CA - Calcium dropped to 7.7 on 04/22 after decreasing infusion rate to 1gm/hr for 12 - continue 2gm/h -Currently at a level 10 - Continue oral Calcium and Calcitriol - Vitamin D level low 03/15 but has been wnl since then - continue ergocalciferol supplementation - Nephrology consulted - continue telemetry monitoring while receiving calcium infusions Hypomagnesemia/ Hypophosphatemia - 400 mg po bid - will monitor. 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 will try to see if patient will be able to urinate by himself Patient has been in hospital for lengthy period of time. may consider onc consult to see if any further management of his cancer is warranted while he is here. Urology is however consulted. Intertrigo/thrush - resolved Seborrheic dermatitis - Completed 14 day course of Desonide for face - resolved CKD III stable - Avoid nephrotoxins where possible DVT Prophylaxis - Heparin subq bid Code Status - DNR Continued [facility] stay due to: multiple IV medications needed Discharge planning: uncertain
[2017-04-28] VITALS (7 sets, daily range): BP systolic 93–128; BP diastolic 52–71; PULSE 3–109; TEMP 36.4–36.8; O2SAT 91–97
[2017-04-28] MEDS: CALCIUM GLUCONATE IV SCH ×3 (02:47→23:45)
[2017-04-28] MEDS: SODIUM CHLORIDE 0.9% IV SCH ×3 (02:47→23:45)
[2017-04-28 06:54] LABS: CALCIUM 8.6 mg/dl (8.5-10.1); CREATININE 1.06 mg/dl (0.60-1.40); POTASSIUM 4.4 mmol/L (3.5-5.1)
[2017-04-28] MEDS: CALCITRIOL 0.25 MCG CAP PO SCH (08:37)
[2017-04-28] MEDS: POT PHOSPHATE MONOBASIC W/ SOD TAB PO SCH ×4 (08:39→20:48)
[2017-04-28] MEDS: CALCIUM CARBONATE 500 MG CHEWABLE PO SCH ×4 (08:40→20:49)
[2017-04-28] MEDS: CALCIUM CARBONATE 1250MG TAB PO SCH ×4 (08:41→20:47)
[2017-04-28] MEDS: PANTOprazole SOD 40 MG TAB PO SCH (08:41)
[2017-04-28] MEDS: DOCUSATE SODIUM 100 MG CAP PO SCH ×2 (08:41→20:47)
[2017-04-28] MEDS: ERGOCALCIFEROL 50,000 INTER.UNIT CAP PO SCH (08:42)
[2017-04-28] MEDS: MAGNESIUM OXIDE 400 MG TAB PO SCH ×2 (08:42→20:48)
[2017-04-28] MEDS: HEPARIN SOD 5000 UNIT/0.5 ML CARP SQ SCH ×2 (08:44→21:02)
[2017-04-28] MEDS: MAGNESIUM SULFATE 1GM / D5W 1 GM in PREMIXED IN D5W 100 ML IV SCH ×2 (08:52→09:46)
--- NOTE | 2017-04-28 15:44 | Nephrology Progress Note ---
Nephrology Progress Note Date of Service Apr 28, 2017. Chief Complaint Hypocalcemia, metastatic prostate cancer Subjective Mr. Greene was seen & examined in his hospital room this morning. His son was present at bedside. Mr. Greene reports that he is tolerating his calcium infusion without dyspnea or swelling. He reports that the rate was reduced to Ca gluconate 1 g / hr. He voices no new medical concerns. Review of Systems Constitutional: No fever Cardiovascular: No chest pain Respiratory: No dyspnea at rest Abdomen: No pain, No nausea, No vomiting Extremities: No leg edema A complete review of systems was performed. Pertinent positives are noted above. All other systems are negative. Vital Signs Last 8 Hrs Date Time Temp Pulse Resp B/P (MAP) Pulse Ox O2 Delivery O2 Flow Rate FiO2 04/28/17 15:14 36.4 95 20 117/71 (86) 96 04/28/17 12:14 36.6 78 18 93/52 (66) 95 Room Air 04/28/17 12:00 Room Air 04/28/17 08:06 36.8 80 18 107/58 (74) 96 Room Air 04/28/17 08:00 Room Air I & O 24-Hour Column 04/29/17 08:00 Intake Total 1158 ml Output Total 900 ml Balance 258 ml Last Recorded Weight Weight (Kilograms): 63.000 Physical Exam General Appearance: no apparent distress Head: normocephalic, atraumatic Eyes: PERRL, EOMI Neck: no adenopathy Respiratory/Chest: lungs clear, no respiratory distress Cardiovascular: regular rate, rhythm Abdomen/GI: normal bowel sounds, non tender, soft Extremities/Musculoskelatal: no calf tenderness, no pedal edema Neurologic/Psych: alert, oriented x 3 Social History Drug Use: none Marital Status: Housing Status: lives with family (lives with son) 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 04/28/17 05:46 Test 04/28/17 05:46 Anion Gap 8.0 mmol/L (3-11) Est Creatinine Clear Calc Drug Dose 45.9 ml/min Estimated GFR () 74.9 Estimated GFR (Non- 64.6 BUN/Creatinine Ratio 17.6 (10-20) Calcium Level 8.6 mg/dl (8.5-10.1) Magnesium Level 1.5 mg/dl (1.8-2.4) Allergies Coded Allergies: No Known Allergies (Unverified , 03/15/17) Medications Current Inpatient Medications Medications (Trade) Dose Ordered Sig/Jonathan Route Start Time Stop Time Status Last Admin Dose Admin Acetaminophen (Tylenol Tab) 650 mg Q4H PRN PO 03/15/17 14:15 05/10/17 14:14 Tamsulosin HCl (Flomax Cap) 0.8 mg HS PO 03/15/17 21:00 05/10/17 20:59 04/27/17 21:01 0.8 MG Miscellaneous Information (Order Awaiting Action) 1 ea QS N/A 03/15/17 16:00 05/10/17 15:59 Pantoprazole Sodium (Protonix Tab) 40 mg QAM PO 03/16/17 09:00 05/10/17 08:59 04/28/17 08:41 40 MG Ranitidine HCl (zANTac TAB) 300 mg HS PO 03/15/17 21:00 05/10/17 20:59 04/27/17 21:02 300 MG Polyethylene (Miralax Powder Packet) 17 gm DAILY PRN PO 03/15/17 15:00 05/10/17 14:59 Docusate Sodium (coLACE CAP) 100 mg BID PO 03/15/17 21:00 05/10/17 20:59 04/28/17 08:41 100 MG Bisacodyl (Dulcolax Supp) 10 mg DAILY PRN NV 03/15/17 15:00 05/10/17 14:59 Heparin Sodium (Porcine) (Heparin Sq 5000 Unit/0.5ml) 5,000 unit Q12 SQ 03/15/17 21:00 05/10/17 20:59 04/28/17 08:44 5,000 UNIT Calcium Carbonate (Tums Chew Tab) 2,000 mg QID PO 03/16/17 17:00 05/10/17 16:59 04/28/17 12:32 2,000 MG Calcium Carbonate (oS-Randy 500 TAB) 1,250 mg QID PO 03/18/17 09:00 05/10/17 08:59 04/28/17 12:31 1,250 MG Miscellaneous (Tap Water Enema) 1 ea Q2D PRN NV 03/18/17 13:30 05/10/17 13:29 Heparin Sodium (Porcine) (Heparin 10 Unit/ ml 5 ml Flush) 5 ml PRN PRN FLUSH 03/18/17 15:30 05/10/17 15:29 04/06/17 05:39 5 ML Benzonatate (Tessalon Perles Cap) 100 mg TID PRN PO 04/08/17 10:45 05/08/17 10:44 04/10/17 20:37 100 MG Calcitriol (Rocaltrol Cap) 4 mcg QAM PO 04/11/17 08:00 05/11/17 07:59 04/28/17 08:37 4 MCG Potassium/ Phosphorus/Sodium (Phospha 250 Neutral 155-852-130 Mg) 2 tab QID PO 04/10/17 17:00 05/10/17 16:59 04/28/17 12:32 2 TAB Ergocalciferol (Vitamin D Cap) 50,000 interunit DAILY PO 04/24/17 09:00 05/24/17 08:59 04/28/17 08:42 50,000 INTERUNIT Magnesium Oxide (Mag-Ox Tab) 400 mg BID PO 04/26/17 09:00 05/26/17 08:59 04/28/17 08:42 400 MG Calcium Gluconate 99880 mg/Sodium Chloride 600 ml @ 60 mls/hr Q10H IV 04/27/17 17:00 05/22/17 16:59 04/28/17 13:54 60 MLS/HR Impression (1) Hypocalcemia (2) Prostate cancer (3) Hypertension Mr. 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 He developed severe hypocalcemia following Denosumab infusion. Renal function is normal. 25OH D deficiency documented on presentation is being treated with Ergocalciferol 09888 IU. Calcitriol is also being provided. The patient is taking PO calcium in the form of TUMs and Oscal. Aggressive replacement with PO and IV calcium continues. The patient has had associated hypomagnesemia. He is tolerating oral magnesium replacement. Recommendations -- Serum calcium remains within acceptable limits. Continue IV calcium gluconate at 1 g/hr -- Mg Oxide 400 mg BID -- Continue Calcitriol 4 mcg daily, OsCal 2500 QID, TUMS 2 grams TID -- Monitor serum calcium daily and repeat magnesium tomorrow AM -- Monitor phosphorus level at least weekly
[2017-04-28] MEDS: TAMSULOSIN HCL 0.4 MG CAP PO SCH (20:47)
[2017-04-28] MEDS: RANITIDINE HCL 150 MG TAB PO SCH (20:47)
--- NOTE | 2017-04-28 23:16 | Progress Note ---
Subjective Date of Service: Apr 28, 2017. Subjective Pt evaluation today including: conversation w/ patient, physical exam Patient has no complaints today. He repots that he is ambulating with no problem. He is a very delightful individual. Problem List Medical Problems: (1) Dehydration Status: Acute (2) Failure to thrive Status: Acute (3) Hypomagnesemia Status: Acute (4) UTI (urinary tract infection) Status: Acute (5) Vomiting Status: Acute Review of Systems Constitutional: No fever, No chills Eyes: No worsening of vision ENT: No hearing loss Respiratory: No cough Cardiac: No chest pain Abdomen: No pain Musculoskeletal: No joint pain Male : No dysuria Psychiatric: No depression symptoms Heme: No abnormal bleeding/bruising Endo: No fatigue Skin: No rash All Other Systems: Reviewed and Negative Objective Vital Signs Date Time Temp Pulse Resp B/P (MAP) Pulse Ox O2 Delivery O2 Flow Rate FiO2 04/28/17 20:00 Room Air 04/28/17 19:07 36.6 109 18 111/67 (82) 95 Room Air 04/28/17 19:03 3 04/28/17 16:00 Room Air 04/28/17 15:14 36.4 95 20 117/71 (86) 96 04/28/17 12:14 36.6 78 18 93/52 (66) 95 Room Air 04/28/17 12:00 Room Air 04/28/17 08:06 36.8 80 18 107/58 (74) 96 Room Air 04/28/17 08:00 Room Air 04/28/17 04:58 36.8 79 16 97/55 (69) 92 Room Air 04/28/17 04:00 Room Air 04/28/17 00:00 Room Air 04/27/17 23:44 36.7 93 20 114/66 (82) 95 Room Air Physical Exam Comments: General: no distress Eyes: normal inspection, PERLL Respiratory: chest non tender, clear to auscultation, normal breath sounds, no respiratory distress, no accessory muscle use Cardiac: regular rate and rhythm, no rub or gallop, no murmur, no edema, no jvd GI/: active bowel sounds, no abd pain or tenderness, soft, non distended Extremities: normal range of motion, normal strength, non tender Neuro/Psych: alert and oriented x 3, normal mood and affect Skin: normal color, dry Laboratory Results Last 24 Hours Test 04/28/17 05:46 Sodium Level 140 mmol/L Potassium Level 4.4 mmol/L Chloride Level 108 mmol/L Carbon Dioxide Level 24 mmol/L Anion Gap 8.0 mmol/L Blood Urea Nitrogen 19 mg/dl Creatinine 1.06 mg/dl Est Creatinine Clear Calc Drug Dose 45.9 ml/min Estimated GFR () 74.9 Estimated GFR (Non- 64.6 BUN/Creatinine Ratio 17.6 Random Glucose 86 mg/dl Calcium Level 8.6 mg/dl Magnesium Level 1.5 mg/dl Assessment and Plan Mr. Greene is an 81 year old man with a history of prostate cancer and osteoblastic mets that presented with fatigue and found to have severe hypocalcemia thought secondary to his Denosumab (03/02/2017). Hypocalcemia/hypophosphatemia - The patient has now been on 43 days of IV calcium and oral calcium therapy - Secondary to Denosumab injection in the setting of metastatic prostate CA - Continue calcium at 1 gr/hr -Currently at a level 8.6 - Continue oral Calcium and Calcitriol - Vitamin D level low 03/15 but has been wnl since then - continue ergocalciferol supplementation - Nephrology consulted - continue telemetry monitoring while receiving calcium infusions Hypomagnesemia/ Hypophosphatemia - 400 mg po bid - will monitor. 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 will try to see if patient will be able to urinate by himself Patient has been in hospital for lengthy period of time. may consider onc consult to see if any further management of his cancer is warranted while he is here. Urology is however consulted. Intertrigo/thrush - resolved Seborrheic dermatitis - Completed 14 day course of Desonide for face - resolved CKD III stable - Avoid nephrotoxins where possible DVT Prophylaxis - Heparin subq bid Code Status - DNR Continued [facility] stay due to: multiple IV medications needed Discharge planning: uncertain
[2017-04-29 03:05] VITALS: BP 115/64; PULSE 82; TEMP 36.7; O2SAT 96
[2017-04-29 07:10] VITALS: BP 118/73; PULSE 82; TEMP 36.6; O2SAT 93
[2017-04-29 07:20] LABS: CALCIUM 8.7 mg/dl (8.5-10.1); CREATININE 1.16 mg/dl (0.60-1.40); POTASSIUM 4.4 mmol/L (3.5-5.1)
[2017-04-29 07:21] LABS: PHOSPHORUS 2.5 mg/dl (2.5-4.9)
[2017-04-29] MEDS: DOCUSATE SODIUM 100 MG CAP PO SCH ×2 (08:03→21:01)
[2017-04-29] MEDS: PANTOprazole SOD 40 MG TAB PO SCH (08:03)
[2017-04-29] MEDS: CALCITRIOL 0.25 MCG CAP PO SCH (08:04)
[2017-04-29] MEDS: POT PHOSPHATE MONOBASIC W/ SOD TAB PO SCH ×4 (08:06→21:02)
[2017-04-29] MEDS: CALCIUM CARBONATE 1250MG TAB PO SCH ×4 (08:07→21:01)
[2017-04-29] MEDS: CALCIUM CARBONATE 500 MG CHEWABLE PO SCH ×4 (08:08→21:02)
[2017-04-29] MEDS: MAGNESIUM OXIDE 400 MG TAB PO SCH ×2 (08:09→21:01)
[2017-04-29] MEDS: ERGOCALCIFEROL 50,000 INTER.UNIT CAP PO SCH (08:09)
[2017-04-29] MEDS: HEPARIN SOD 5000 UNIT/0.5 ML CARP SQ SCH ×2 (08:10→21:07)
[2017-04-29] MEDS: CALCIUM GLUCONATE IV SCH ×2 (08:54→19:27)
[2017-04-29] MEDS: SODIUM CHLORIDE 0.9% IV SCH ×2 (08:54→19:27)
--- NOTE | 2017-04-29 10:54 | Nephrology Progress Note ---
Nephrology Progress Note Date of Service Apr 29, 2017. Chief Complaint Hypocalcemia, metastatic prostate cancer Subjective Mr. Greene was seen & examined in his hospital room this morning. He denies dyspnea, nausea or muscle cramping. He remains physically active by ambulating in the hallway each afternoon. Review of Systems Constitutional: No fever Cardiovascular: No chest pain Respiratory: No dyspnea at rest Abdomen: No pain, No nausea, No vomiting Extremities: No leg edema A complete review of systems was performed. Pertinent positives are noted above. All other systems are negative. Vital Signs Last 8 Hrs Date Time Temp Pulse Resp B/P (MAP) Pulse Ox O2 Delivery O2 Flow Rate FiO2 04/29/17 08:00 Room Air 04/29/17 07:50 Room Air 04/29/17 07:10 36.6 82 20 118/73 (88) 93 Room Air 04/29/17 04:00 Room Air 04/29/17 03:05 36.7 82 18 115/64 (81) 96 Room Air Last Recorded Weight Weight (Kilograms): 62.200 Physical Exam General Appearance: no apparent distress Head: normocephalic, atraumatic Eyes: PERRL, EOMI Neck: no adenopathy Respiratory/Chest: lungs clear Cardiovascular: regular rate, rhythm Abdomen/GI: normal bowel sounds, non tender, soft Extremities/Musculoskelatal: no calf tenderness, no pedal edema Neurologic/Psych: alert, oriented x 3 Social History Drug Use: none Marital Status: Housing Status: lives with family (lives with son) 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 04/29/17 06:46 Test 04/29/17 06:46 Anion Gap 7.0 mmol/L (3-11) Est Creatinine Clear Calc Drug Dose 42.0 ml/min Estimated GFR () 67.1 Estimated GFR (Non- 57.9 BUN/Creatinine Ratio 16.1 (10-20) Calcium Level 8.7 mg/dl (8.5-10.1) Phosphorus Level 2.5 mg/dl (2.5-4.9) Magnesium Level 1.9 mg/dl (1.8-2.4) Allergies Coded Allergies: No Known Allergies (Unverified , 03/15/17) Medications Current Inpatient Medications Medications (Trade) Dose Ordered Sig/Jonathan Route Start Time Stop Time Status Last Admin Dose Admin Acetaminophen (Tylenol Tab) 650 mg Q4H PRN PO 03/15/17 14:15 05/10/17 14:14 Tamsulosin HCl (Flomax Cap) 0.8 mg HS PO 03/15/17 21:00 05/10/17 20:59 04/28/17 20:47 0.8 MG Miscellaneous Information (Order Awaiting Action) 1 ea QS N/A 03/15/17 16:00 05/10/17 15:59 Pantoprazole Sodium (Protonix Tab) 40 mg QAM PO 03/16/17 09:00 05/10/17 08:59 04/29/17 08:03 40 MG Ranitidine HCl (zANTac TAB) 300 mg HS PO 03/15/17 21:00 05/10/17 20:59 04/28/17 20:47 300 MG Polyethylene (Miralax Powder Packet) 17 gm DAILY PRN PO 03/15/17 15:00 05/10/17 14:59 Docusate Sodium (coLACE CAP) 100 mg BID PO 03/15/17 21:00 05/10/17 20:59 04/29/17 08:03 100 MG Bisacodyl (Dulcolax Supp) 10 mg DAILY PRN MT 03/15/17 15:00 05/10/17 14:59 Heparin Sodium (Porcine) (Heparin Sq 5000 Unit/0.5ml) 5,000 unit Q12 SQ 03/15/17 21:00 05/10/17 20:59 04/29/17 08:10 5,000 UNIT Calcium Carbonate (Tums Chew Tab) 2,000 mg QID PO 03/16/17 17:00 05/10/17 16:59 04/29/17 08:08 2,000 MG Calcium Carbonate (oS-Randy 500 TAB) 1,250 mg QID PO 03/18/17 09:00 05/10/17 08:59 04/29/17 08:07 1,250 MG Miscellaneous (Tap Water Enema) 1 ea Q2D PRN MT 03/18/17 13:30 05/10/17 13:29 Heparin Sodium (Porcine) (Heparin 10 Unit/ ml 5 ml Flush) 5 ml PRN PRN FLUSH 03/18/17 15:30 05/10/17 15:29 04/06/17 05:39 5 ML Benzonatate (Tessalon Perles Cap) 100 mg TID PRN PO 04/08/17 10:45 05/08/17 10:44 04/10/17 20:37 100 MG Calcitriol (Rocaltrol Cap) 4 mcg QAM PO 04/11/17 08:00 05/11/17 07:59 04/29/17 08:04 4 MCG Potassium/ Phosphorus/Sodium (Phospha 250 Neutral 155-852-130 Mg) 2 tab QID PO 04/10/17 17:00 05/10/17 16:59 04/29/17 08:06 2 TAB Ergocalciferol (Vitamin D Cap) 50,000 interunit DAILY PO 04/24/17 09:00 05/24/17 08:59 04/29/17 08:09 50,000 INTERUNIT Magnesium Oxide (Mag-Ox Tab) 400 mg BID PO 04/26/17 09:00 05/26/17 08:59 04/29/17 08:09 400 MG Calcium Gluconate 98758 mg/Sodium Chloride 600 ml @ 60 mls/hr Q10H IV 04/27/17 17:00 05/22/17 16:59 04/29/17 08:54 60 MLS/HR Impression (1) Hypocalcemia (2) Prostate cancer (3) Hypertension Mr. 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 He developed severe hypocalcemia following Denosumab infusion. Renal function is normal. 25OH D deficiency documented on presentation is being treated with Ergocalciferol 36185 IU. Calcitriol is also being provided. The patient is taking PO calcium in the form of TUMs and Oscal. Aggressive replacement with PO and IV calcium continues. The patient has had associated hypomagnesemia. He is tolerating oral magnesium replacement. Recommendations -- Serum calcium remains stabe while Calcium Gluconate is infusing at 1 g/hr. Will continue current rate until serum calcium rises to 9.0 or above and will then try to transition to only oral medications -- Mg and PO4 are acceptable this am -- Continue Mg Oxide 400 mg BID -- Continue Calcitriol 4 mcg daily, OsCal 2500 QID, TUMS 2 grams TID -- Monitor serum calcium daily -- Monitor phosphorus level at least weekly
[2017-04-29 12:14] VITALS: BP 100/52; PULSE 67; TEMP 36.7; O2SAT 98
--- NOTE | 2017-04-29 12:19 | Progress Note ---
Subjective Date of Service: Apr 29, 2017. Subjective Pt evaluation today including: conversation w/ patient Patient has no complaints today. He is ambulating the halls with no issues. Problem List Medical Problems: (1) Dehydration Status: Acute (2) Failure to thrive Status: Acute (3) Hypomagnesemia Status: Acute (4) UTI (urinary tract infection) Status: Acute (5) Vomiting Status: Acute Objective Vital Signs Date Time Temp Pulse Resp B/P (MAP) Pulse Ox O2 Delivery O2 Flow Rate FiO2 04/29/17 12:14 36.7 67 18 100/52 (68) 98 Room Air 04/29/17 08:00 Room Air 04/29/17 07:50 Room Air 04/29/17 07:10 36.6 82 20 118/73 (88) 93 Room Air 04/29/17 04:00 Room Air 04/29/17 03:05 36.7 82 18 115/64 (81) 96 Room Air 04/29/17 00:00 Room Air 04/28/17 23:18 36.6 88 18 116/69 (85) 97 Room Air 04/28/17 20:00 Room Air 04/28/17 19:07 36.6 109 18 111/67 (82) 95 Room Air 04/28/17 19:03 3 04/28/17 16:00 Room Air 04/28/17 15:14 36.4 95 20 117/71 (86) 96 Physical Exam Comments: General: no distress Eyes: normal inspection, PERLL Respiratory: chest non tender, clear to auscultation, normal breath sounds, no respiratory distress, no accessory muscle use Cardiac: regular rate and rhythm, no rub or gallop, no murmur, no edema, no jvd GI/: active bowel sounds, no abd pain or tenderness, soft, non distended Extremities: normal range of motion, normal strength, non tender Neuro/Psych: alert and oriented x 3, normal mood and affect Skin: normal color, dry Laboratory Results Last 24 Hours Test 04/29/17 06:46 Sodium Level 141 mmol/L Potassium Level 4.4 mmol/L Chloride Level 107 mmol/L Carbon Dioxide Level 27 mmol/L Anion Gap 7.0 mmol/L Blood Urea Nitrogen 19 mg/dl Creatinine 1.16 mg/dl Est Creatinine Clear Calc Drug Dose 42.0 ml/min Estimated GFR () 67.1 Estimated GFR (Non- 57.9 BUN/Creatinine Ratio 16.1 Random Glucose 84 mg/dl Calcium Level 8.7 mg/dl Phosphorus Level 2.5 mg/dl Magnesium Level 1.9 mg/dl Assessment and Plan Mr. Greene is an 81 year old man with a history of prostate cancer and osteoblastic mets that presented with fatigue and found to have severe hypocalcemia thought secondary to his Denosumab (03/02/2017). Hypocalcemia/hypophosphatemia - The patient has now been on 41 days of IV calcium and oral calcium therapy - Secondary to Denosumab injection in the setting of metastatic prostate CA - Currently getting 1gr/hr IV -Currently at a level 8 - Continue oral Calcium and Calcitriol - Vitamin D level low 03/15 but has been wnl since then - continue ergocalciferol supplementation - Nephrology consulted - continue telemetry monitoring while receiving calcium infusions Hypomagnesemia/ Hypophosphatemia - 400 mg po bid - will monitor. 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 will try to see if patient will be able to urinate by himself Patient has been in hospital for lengthy period of time. may consider onc consult to see if any further management of his cancer is warranted while he is here. Urology is however consulted. D/W Dr. Crews from ONC. Patient does not require any treatment for prostate cancer until late May. Cancelled consult. Intertrigo/thrush - resolved Seborrheic dermatitis - Completed 14 day course of Desonide for face - resolved CKD III stable - Avoid nephrotoxins where possible DVT Prophylaxis - Heparin subq bid Code Status - DNR Continued [facility] stay due to: multiple IV medications needed Discharge planning: uncertain
[2017-04-29 15:15] VITALS: BP 106/61; PULSE 80; TEMP 36.7; O2SAT 94
[2017-04-29 19:06] VITALS: BP 124/64; PULSE 95; TEMP 36.9; O2SAT 96
[2017-04-29] MEDS: TAMSULOSIN HCL 0.4 MG CAP PO SCH (21:01)
[2017-04-29] MEDS: RANITIDINE HCL 150 MG TAB PO SCH (21:03)
[2017-04-30] VITALS (7 sets, daily range): BP systolic 102–132; BP diastolic 53–64; PULSE 79–99; TEMP 36.2–36.7; O2SAT 93–97
[2017-04-30] MEDS: SODIUM CHLORIDE 0.9% IV SCH ×2 (05:16→15:05)
[2017-04-30] MEDS: CALCIUM GLUCONATE IV SCH ×2 (05:16→15:05)
[2017-04-30 06:34] LABS: CALCIUM 8.9 mg/dl (8.5-10.1); CREATININE 1.16 mg/dl (0.60-1.40); POTASSIUM 4.4 mmol/L (3.5-5.1)
[2017-04-30] MEDS: POT PHOSPHATE MONOBASIC W/ SOD TAB PO SCH ×4 (08:06→21:26)
[2017-04-30] MEDS: MAGNESIUM OXIDE 400 MG TAB PO SCH ×2 (08:07→21:50)
[2017-04-30] MEDS: ERGOCALCIFEROL 50,000 INTER.UNIT CAP PO SCH (08:07)
[2017-04-30] MEDS: CALCIUM CARBONATE 1250MG TAB PO SCH ×4 (08:08→21:25)
[2017-04-30] MEDS: CALCIUM CARBONATE 500 MG CHEWABLE PO SCH ×4 (08:08→21:25)
[2017-04-30] MEDS: DOCUSATE SODIUM 100 MG CAP PO SCH ×2 (08:08→21:25)
[2017-04-30] MEDS: PANTOprazole SOD 40 MG TAB PO SCH (08:09)
[2017-04-30] MEDS: CALCITRIOL 0.25 MCG CAP PO SCH (08:10)
[2017-04-30] MEDS: HEPARIN SOD 5000 UNIT/0.5 ML CARP SQ SCH ×2 (08:15→21:34)
--- NOTE | 2017-04-30 10:40 | Progress Note ---
Subjective Date of Service: Apr 30, 2017. Subjective Pt evaluation today including: conversation w/ patient, chart review, lab review Voiding: bey catheter in place (patent, draining clear, yellow urine ) 81 yo male with metastatic prostate cancer. Admitted for over a month now for hypocalcemia secondary to Denosumab. Calcium is 8.9 this morning. Attempt TOV last week, but the pt failed, and bey catheter was replaced. Draining clear, yellow urine this morning. The pt remains in good spirits and hopeful for discharge home soon despite his extended stay. He is ambulating the hallways this morning without difficulty. Problem List Medical Problems: (1) Dehydration Status: Acute (2) Failure to thrive Status: Acute (3) Hypomagnesemia Status: Acute (4) UTI (urinary tract infection) Status: Acute (5) Vomiting Status: Acute Review of Systems Constitutional: No fever, No chills Respiratory: No shortness of breath Cardiac: No chest pain Abdomen: No pain, No nausea, No vomiting Male : No hematuria Heme: No abnormal bleeding/bruising Objective Vital Signs Date Time Temp Pulse Resp B/P (MAP) Pulse Ox O2 Delivery O2 Flow Rate FiO2 04/30/17 08:00 Room Air 04/30/17 07:44 36.7 83 18 112/59 (76) 95 Room Air 04/30/17 04:59 36.6 79 17 111/64 (80) 97 Room Air 04/30/17 04:00 Room Air 04/30/17 00:19 36.7 82 16 122/53 (76) 97 Room Air 04/30/17 00:17 36.7 82 16 122/53 (76) 97 Room Air 04/30/17 00:00 Room Air 04/29/17 20:00 Room Air 04/29/17 19:06 36.9 95 20 124/64 (84) 96 Room Air 04/29/17 16:00 Room Air 04/29/17 15:15 36.7 80 18 106/61 (76) 94 Room Air 04/29/17 12:14 36.7 67 18 100/52 (68) 98 Room Air 04/29/17 12:00 Room Air Physical Exam General Appearance: no apparent distress Eyes: normal inspection ENT: hearing grossly normal Neck: no JVD Respiratory/Chest: no respiratory distress, no accessory muscle use Cardiovascular: no JVD Extremities: normal inspection Neurologic/Psychiatric: alert, normal mood/affect, oriented x 3 Skin: normal color Laboratory Results Last 24 Hours Test 04/30/17 06:05 Sodium Level 141 mmol/L Potassium Level 4.4 mmol/L Chloride Level 107 mmol/L Carbon Dioxide Level 27 mmol/L Anion Gap 7.0 mmol/L Blood Urea Nitrogen 21 mg/dl Creatinine 1.16 mg/dl Est Creatinine Clear Calc Drug Dose 42.0 ml/min Estimated GFR () 67.1 Estimated GFR (Non- 57.9 BUN/Creatinine Ratio 18.4 Random Glucose 89 mg/dl Calcium Level 8.9 mg/dl Assessment and Plan A/P: Metastatic prostate cancer, hypocalcemia, urinary retention AFVSS. Failed TOV. Continue bey catheter indefinitely for now. Management of hypocalcemia per primary service. Continue to plan for outpatient cysto once the pt has been discharged. No further management at this time. Recall PRN issues. Thanks for allowing us to participate in this pt's care. Continued [facility] stay due to: multiple IV medications needed Discharge planning: uncertain
--- NOTE | 2017-04-30 14:59 | Nephrology Progress Note ---
Nephrology Progress Note Date of Service Apr 30, 2017. Chief Complaint Hypocalcemia, metastatic prostate cancer Subjective Mr. Greene was seen & examined in his hospital room this morning. He is tolerating IV Ca infusion without complication. He denies muscle cramping and reports that he remains active by ambulating in the hallway each day Review of Systems Constitutional: No fever Cardiovascular: No chest pain Respiratory: No dyspnea at rest Abdomen: No pain, No nausea, No vomiting Extremities: No leg edema A complete review of systems was performed. Pertinent positives are noted above. All other systems are negative. Vital Signs Last 8 Hrs Date Time Temp Pulse Resp B/P (MAP) Pulse Ox O2 Delivery O2 Flow Rate FiO2 04/30/17 12:00 Room Air 04/30/17 11:21 36.2 99 18 102/63 (76) 96 Room Air 04/30/17 08:00 Room Air 04/30/17 07:44 36.7 83 18 112/59 (76) 95 Room Air I & O 24-Hour Column 05/01/17 08:00 Intake Total 1047 ml Output Total 375 ml Balance 672 ml Last Recorded Weight Weight (Kilograms): 64.500 Physical Exam General Appearance: no apparent distress Head: normocephalic, atraumatic Eyes: PERRL, EOMI Neck: no adenopathy Respiratory/Chest: lungs clear, no respiratory distress Cardiovascular: regular rate, rhythm Abdomen/GI: normal bowel sounds, non tender, soft Extremities/Musculoskelatal: no calf tenderness, no pedal edema Neurologic/Psych: alert, oriented x 3 Social History Drug Use: none Marital Status: Housing Status: lives with family (lives with son) 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 04/30/17 06:05 Test 04/30/17 06:05 Anion Gap 7.0 mmol/L (3-11) Est Creatinine Clear Calc Drug Dose 42.0 ml/min Estimated GFR () 67.1 Estimated GFR (Non- 57.9 BUN/Creatinine Ratio 18.4 (10-20) Calcium Level 8.9 mg/dl (8.5-10.1) Allergies Coded Allergies: No Known Allergies (Unverified , 03/15/17) Medications Current Inpatient Medications Medications (Trade) Dose Ordered Sig/Jonathan Route Start Time Stop Time Status Last Admin Dose Admin Acetaminophen (Tylenol Tab) 650 mg Q4H PRN PO 03/15/17 14:15 05/10/17 14:14 Tamsulosin HCl (Flomax Cap) 0.8 mg HS PO 03/15/17 21:00 05/10/17 20:59 04/29/17 21:01 0.8 MG Miscellaneous Information (Order Awaiting Action) 1 ea QS N/A 03/15/17 16:00 05/10/17 15:59 Pantoprazole Sodium (Protonix Tab) 40 mg QAM PO 03/16/17 09:00 05/10/17 08:59 04/30/17 08:09 40 MG Ranitidine HCl (zANTac TAB) 300 mg HS PO 03/15/17 21:00 05/10/17 20:59 04/29/17 21:03 300 MG Polyethylene (Miralax Powder Packet) 17 gm DAILY PRN PO 03/15/17 15:00 05/10/17 14:59 Docusate Sodium (coLACE CAP) 100 mg BID PO 03/15/17 21:00 05/10/17 20:59 04/30/17 08:08 100 MG Bisacodyl (Dulcolax Supp) 10 mg DAILY PRN [place] 03/15/17 15:00 05/10/17 14:59 Heparin Sodium (Porcine) (Heparin Sq 5000 Unit/0.5ml) 5,000 unit Q12 SQ 03/15/17 21:00 05/10/17 20:59 04/30/17 08:15 5,000 UNIT Calcium Carbonate (Tums Chew Tab) 2,000 mg QID PO 03/16/17 17:00 05/10/17 16:59 04/30/17 12:22 2,000 MG Calcium Carbonate (oS-Randy 500 TAB) 1,250 mg QID PO 03/18/17 09:00 05/10/17 08:59 04/30/17 12:22 1,250 MG Miscellaneous (Tap Water Enema) 1 ea Q2D PRN [place] 03/18/17 13:30 05/10/17 13:29 Heparin Sodium (Porcine) (Heparin 10 Unit/ ml 5 ml Flush) 5 ml PRN PRN FLUSH 03/18/17 15:30 05/10/17 15:29 04/06/17 05:39 5 ML Benzonatate (Tessalon Perles Cap) 100 mg TID PRN PO 04/08/17 10:45 05/08/17 10:44 04/10/17 20:37 100 MG Calcitriol (Rocaltrol Cap) 4 mcg QAM PO 04/11/17 08:00 05/11/17 07:59 04/30/17 08:10 4 MCG Potassium/ Phosphorus/Sodium (Phospha 250 Neutral 155-852-130 Mg) 2 tab QID PO 04/10/17 17:00 05/10/17 16:59 04/30/17 12:22 2 TAB Ergocalciferol (Vitamin D Cap) 50,000 interunit DAILY PO 04/24/17 09:00 05/24/17 08:59 04/30/17 08:07 50,000 INTERUNIT Magnesium Oxide (Mag-Ox Tab) 400 mg BID PO 04/26/17 09:00 05/26/17 08:59 04/30/17 08:07 400 MG Calcium Gluconate 04201 mg/Sodium Chloride 600 ml @ 60 mls/hr Q10H IV 04/27/17 17:00 05/22/17 16:59 04/30/17 05:16 60 MLS/HR Impression (1) Hypocalcemia (2) Prostate cancer (3) Hypertension Mr. 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 He developed severe hypocalcemia following Denosumab infusion. Renal function is normal. 25OH D deficiency documented on presentation is being treated with Ergocalciferol 16238 IU. Calcitriol is also being provided. The patient is taking PO calcium in the form of TUMs and Oscal. Aggressive replacement with PO and IV calcium continues. The patient has had associated hypomagnesemia. He is tolerating oral magnesium replacement. Recommendations -- Serum calcium is mildly improved while Calcium Gluconate is infusing at 1 g/ hr. Will continue current rate until serum calcium rises to 9.0 or above and will then try to transition to only oral medications -- Mg and PO4 are acceptable this am -- Continue Mg Oxide 400 mg BID -- Continue Calcitriol 4 mcg daily, OsCal 2500 QID, TUMS 2 grams TID -- Monitor serum calcium daily -- Monitor phosphorus level at least weekly
--- NOTE | 2017-04-30 18:24 | Progress Note ---
Subjective Date of Service: Apr 30, 2017. Subjective Pt evaluation today including: conversation w/ patient, physical exam, chart review, lab review, conversation w/ internal audit consultant, review of inpatient medication list Pain: Pain is adequately controlled PO Intake: Oral intake is adequate Voiding: no voiding problems No new complaint Problem List Medical Problems: (1) Dehydration Status: Acute (2) Failure to thrive Status: Acute (3) Hypomagnesemia Status: Acute (4) UTI (urinary tract infection) Status: Acute (5) Vomiting Status: Acute Review of Systems Review of system Constitutional: No fever / no chills / no sweats / no weakness / no fatigue Eyes: no blurring of vision / no eye pain / no discharge / no redness ENT: no hearing loss / no epistaxis /no swallowing problems Respiratory: no cough / no wheezing / no SOB / no hemoptysis Cardiovascular: no Chest pain / no lower extremity edema / no palpitation Abdomen: no pain / no nausea / no vomiting / no constipation Musculoskeletal: no joint pain / no muscle pain / no joint swelling Genitourinary: no dysuria / no incontinence / no urinary retention Neurologic: no focal weakness / no numbness/tingling / no ataxia Psychiatric: no depression symptoms / no anxiety / no insomnia Endocrine: no excessive thirst / no excessive urination Hematologic: no abnormal bleeding / no bruising / no LN swelling Skin: No rash / no pallor Objective Vital Signs Date Time Temp Pulse Resp B/P (MAP) Pulse Ox O2 Delivery O2 Flow Rate FiO2 04/30/17 16:00 Room Air 04/30/17 15:39 36.7 87 18 131/56 (81) 94 Room Air 04/30/17 12:00 Room Air 04/30/17 11:21 36.2 99 18 102/63 (76) 96 Room Air 04/30/17 08:00 Room Air 04/30/17 07:44 36.7 83 18 112/59 (76) 95 Room Air 04/30/17 04:59 36.6 79 17 111/64 (80) 97 Room Air 04/30/17 04:00 Room Air 04/30/17 00:19 36.7 82 16 122/53 (76) 97 Room Air 04/30/17 00:17 36.7 82 16 122/53 (76) 97 Room Air 04/30/17 00:00 Room Air 04/29/17 20:00 Room Air 04/29/17 19:06 36.9 95 20 124/64 (84) 96 Room Air Physical Exam Comments: Physical examination General patient appears to be comfortable, not in acute distress HEENT: Atraumatic , normocephalic /no jaundice /no pallor /anicteric /no dry mucous membrane /normal external ear inspection Neck: Supple /no swelling /central trach Heart: S1/S2 normal/regular rate and rhythm/no gallop /no rub /no murmur Lungs: Clear to auscultation bilaterally/normal chest with expansion/no rhonchi/ no rales/no wheezing/no use of accessory muscles of respiration Abdomen: Soft/nontender/no guarding/no rebound/no organomegaly/no pulsatile mass Musculoskeletal: No swelling/no edema/no tenderness/normal range of motion Neuro exam: Awake alert oriented 3/cranial nerves II through XII appear to be intact/sensation intact/moves all extremities/no abnormal movements Psychiatric evaluation: No depressed mood/normal affect Skin: No rash on exposed skin area/no erythema Extremity: Normal pulse/no pitting edema/no clubbing or cyanosis Endocrine/lymphatic: No obvious lymphadenopathy /no lymphedema Laboratory Results Last 24 Hours Test 04/30/17 06:05 Sodium Level 141 mmol/L Potassium Level 4.4 mmol/L Chloride Level 107 mmol/L Carbon Dioxide Level 27 mmol/L Anion Gap 7.0 mmol/L Blood Urea Nitrogen 21 mg/dl Creatinine 1.16 mg/dl Est Creatinine Clear Calc Drug Dose 42.0 ml/min Estimated GFR () 67.1 Estimated GFR (Non- 57.9 BUN/Creatinine Ratio 18.4 Random Glucose 89 mg/dl Calcium Level 8.9 mg/dl Assessment and Plan 81-year-old man with metastasized prostate cancer, with osteoblastic bone metastases who presented with fatigue due to severe hypocalcemia. Assessment Severe hypocalcemia believed to be attributed to Denosumab /bone metastasis Hypomagnesemia and hypophosphatemia Metastasized prostate cancer, with osteoblastic bone metastases Complicated due to i.e. with stenotrophomonas present on admission Urinary retention with urine outflow obstruction, status post indwelling Berkowitz Right arm superficial thrombophlebitis Seborrheic dermatitis Chronic kidney disease stage III Intertrigo/oral thrush Plan Continue telemetry Continue aggressive calcium replacement, currently on 1 g IV per hour infusion of calcium gluconate plus large dose of oral calcium supplement Continue magnesium replacement 400 mg p.o. twice daily Continue Flomax Continue ranitidine for GI prophylaxis Heparin for DVT prophylaxis Plan to discharge patient to LTAC as soon as calcium infusion stopped Discussed case with Dr. Cifuentes will order labs in am Continued [facility] stay due to: multiple IV medications needed Discharge planning: uncertain
[2017-04-30] MEDS: TAMSULOSIN HCL 0.4 MG CAP PO SCH (21:26)
[2017-04-30] MEDS: RANITIDINE HCL 150 MG TAB PO SCH (21:50)
[2017-05-01] VITALS (10 sets, daily range): BP systolic 93–153; BP diastolic 57–85; PULSE 79–93; TEMP 36–36.8; O2SAT 94–98
[2017-05-01] MEDS: SODIUM CHLORIDE 0.9% IV SCH ×3 (00:53→20:51)
[2017-05-01] MEDS: CALCIUM GLUCONATE IV SCH ×3 (00:53→20:51)
[2017-05-01 05:47] LABS: BASO % 0.4 %; BASO ABS # 0.02 K/uL (0-0.2); EOS % 7.8 %; EOS ABS # 0.39 K/uL (0-0.5); HEMATOCRIT 30.9 % (42-52); HEMOGLOBIN 10.2 g/dL (14.0-18.0); IG# 0.02 K/uL (0.00-0.02); LYMPH % 42.3 %; MEAN CELL VOLUME 89.8 fL (80-100); MEAN CORPUSCULAR HEMOGLOBIN 29.7 pg (25-34); MEAN PLATELET VOLUME 8.4 fL (7.4-10.4); NEUT % 41.1 %; NEUT ABS # 2.04 K/uL (1.4-6.5); PLATELET COUNT 156 K/uL (130-400); RED CELL DISTRIBUTION WIDTH CV 16.7 % (11.5-14.5); RED CELL DISTRIBUTION WIDTH SD 54.9 fL (36.4-46.3); WHITE BLOOD COUNT 4.97 K/uL (4.8-10.8)
[2017-05-01 06:21] LABS: ALBUMIN 2.9 gm/dl (3.4-5.0); CALCIUM 8.7 mg/dl (8.5-10.1); CREATININE 1.21 mg/dl (0.60-1.40); POTASSIUM 4.3 mmol/L (3.5-5.1)
[2017-05-01 06:23] LABS: TOTAL PROTEIN 5.9 gm/dl (6.4-8.2)
[2017-05-01] MEDS: MAGNESIUM OXIDE 400 MG TAB PO SCH ×2 (09:31→20:54)
[2017-05-01] MEDS: DOCUSATE SODIUM 100 MG CAP PO SCH ×2 (09:32→20:55)
[2017-05-01] MEDS: PANTOprazole SOD 40 MG TAB PO SCH (09:32)
[2017-05-01] MEDS: CALCIUM CARBONATE 500 MG CHEWABLE PO SCH ×4 (09:33→20:54)
[2017-05-01] MEDS: ERGOCALCIFEROL 50,000 INTER.UNIT CAP PO SCH (09:35)
[2017-05-01] MEDS: HEPARIN SOD 5000 UNIT/0.5 ML CARP SQ SCH ×2 (09:39→20:52)
[2017-05-01] MEDS: POT PHOSPHATE MONOBASIC W/ SOD TAB PO SCH ×4 (09:44→20:53)
[2017-05-01] MEDS: CALCIUM CARBONATE 1250MG TAB PO SCH ×4 (10:25→20:55)
[2017-05-01] MEDS: CALCITRIOL 0.25 MCG CAP PO SCH (10:26)
--- NOTE | 2017-05-01 10:52 | Nephrology Progress Note ---
Nephrology Progress Note Date of Service May 01, 2017. Chief Complaint Hypocalcemia, metastatic prostate cancer Subjective Mr. Greene was seen & examined in his hospital room this morning. He denies LE swelling or dyspnea. He remains physically active by ambulating in the hallway each morning. Review of Systems Constitutional: No fever Cardiovascular: No chest pain Respiratory: No dyspnea at rest Abdomen: No pain, No nausea, No vomiting Extremities: No leg edema A complete review of systems was performed. Pertinent positives are noted above. All other systems are negative. Vital Signs Last 8 Hrs Date Time Temp Pulse Resp B/P (MAP) Pulse Ox O2 Delivery O2 Flow Rate FiO2 05/01/17 08:06 36.7 93 16 117/69 (85) 96 Room Air 05/01/17 08:00 96 Room Air 05/01/17 04:14 36.7 79 18 116/57 (76) 96 Room Air 05/01/17 04:00 Room Air Last Recorded Weight Weight (Kilograms): 64.900 Physical Exam General Appearance: no apparent distress Head: normocephalic, atraumatic Eyes: PERRL, EOMI Neck: no adenopathy Respiratory/Chest: lungs clear, no respiratory distress Cardiovascular: regular rate, rhythm Abdomen/GI: normal bowel sounds, non tender, soft Extremities/Musculoskelatal: no calf tenderness, no pedal edema Neurologic/Psych: alert, oriented x 3 Social History Drug Use: none Marital Status: Housing Status: lives with family (lives with son) 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 05/01/17 05:10 Red Blood Count 3.44, Mean Corpuscular Volume 89.8, Mean Corpuscular Hemoglobin 29.7, Mean Corpuscular Hemoglobin Concent 33.0, Mean Platelet Volume 8.4, Neutrophils (%) (Auto) 41.1, Lymphocytes (%) (Auto) 42.3, Monocytes (%) (Auto) 8.0, Eosinophils (%) (Auto) 7.8, Basophils (%) (Auto) 0.4, Neutrophils # (Auto) 2.04, Lymphocytes # (Auto) 2.10, Monocytes # (Auto) 0.40, Eosinophils # (Auto) 0.39, Basophils # (Auto) 0.02 05/01/17 05:10 Test 05/01/17 05:10 White Blood Count 4.97 K/uL (4.8-10.8) Red Blood Count 3.44 M/uL (4.7-6.1) Hemoglobin 10.2 g/dL (14.0-18.0) Hematocrit 30.9 % (42-52) Mean Corpuscular Volume 89.8 fL (80-100) Mean Corpuscular Hemoglobin 29.7 pg (25-34) Mean Corpuscular Hemoglobin Concent 33.0 g/dl (32-36) Platelet Count 156 K/uL (130-400) Mean Platelet Volume 8.4 fL (7.4-10.4) Neutrophils (%) (Auto) 41.1 % Lymphocytes (%) (Auto) 42.3 % Monocytes (%) (Auto) 8.0 % Eosinophils (%) (Auto) 7.8 % Basophils (%) (Auto) 0.4 % Neutrophils # (Auto) 2.04 K/uL (1.4-6.5) Lymphocytes # (Auto) 2.10 K/uL (1.2-3.4) Monocytes # (Auto) 0.40 K/uL (0.11-0.59) Eosinophils # (Auto) 0.39 K/uL (0-0.5) Basophils # (Auto) 0.02 K/uL (0-0.2) RDW Standard Deviation 54.9 fL (36.4-46.3) RDW Coefficient of Variation 16.7 % (11.5-14.5) Immature Granulocyte % (Auto) 0.4 % Immature Granulocyte # (Auto) 0.02 K/uL (0.00-0.02) Anion Gap 5.0 mmol/L (3-11) Est Creatinine Clear Calc Drug Dose 40.2 ml/min Estimated GFR () 63.8 Estimated GFR (Non- 55.0 BUN/Creatinine Ratio 19.2 (10-20) Calcium Level 8.7 mg/dl (8.5-10.1) Magnesium Level 1.7 mg/dl (1.8-2.4) Total Bilirubin 0.2 mg/dl (0.2-1) Aspartate Amino Transf (AST/SGOT) 17 U/L (15-37) Alanine Aminotransferase (ALT/SGPT) 14 U/L (12-78) Alkaline Phosphatase 614 U/L (45-117) Total Protein 5.9 gm/dl (6.4-8.2) Albumin 2.9 gm/dl (3.4-5.0) Globulin 3.0 gm/dl (2.5-4.0) Albumin/Globulin Ratio 1.0 (0.9-2) Allergies Coded Allergies: No Known Allergies (Unverified , 03/15/17) Medications Current Inpatient Medications Medications (Trade) Dose Ordered Sig/Jonathan Route Start Time Stop Time Status Last Admin Dose Admin Acetaminophen (Tylenol Tab) 650 mg Q4H PRN PO 03/15/17 14:15 05/10/17 14:14 Tamsulosin HCl (Flomax Cap) 0.8 mg HS PO 03/15/17 21:00 05/10/17 20:59 04/30/17 21:26 0.8 MG Miscellaneous Information (Order Awaiting Action) 1 ea QS N/A 03/15/17 16:00 05/10/17 15:59 Pantoprazole Sodium (Protonix Tab) 40 mg QAM PO 03/16/17 09:00 05/10/17 08:59 05/01/17 09:32 40 MG Ranitidine HCl (zANTac TAB) 300 mg HS PO 03/15/17 21:00 05/10/17 20:59 04/30/17 21:50 300 MG Polyethylene (Miralax Powder Packet) 17 gm DAILY PRN PO 03/15/17 15:00 05/10/17 14:59 Docusate Sodium (coLACE CAP) 100 mg BID PO 03/15/17 21:00 05/10/17 20:59 05/01/17 09:32 100 MG Bisacodyl (Dulcolax Supp) 10 mg DAILY PRN IL 03/15/17 15:00 05/10/17 14:59 Heparin Sodium (Porcine) (Heparin Sq 5000 Unit/0.5ml) 5,000 unit Q12 SQ 03/15/17 21:00 05/10/17 20:59 05/01/17 09:39 5,000 UNIT Calcium Carbonate (Tums Chew Tab) 2,000 mg QID PO 03/16/17 17:00 05/10/17 16:59 05/01/17 09:33 2,000 MG Calcium Carbonate (oS-Randy 500 TAB) 1,250 mg QID PO 03/18/17 09:00 05/10/17 08:59 05/01/17 10:25 1,250 MG Miscellaneous (Tap Water Enema) 1 ea Q2D PRN IL 03/18/17 13:30 05/10/17 13:29 Heparin Sodium (Porcine) (Heparin 10 Unit/ ml 5 ml Flush) 5 ml PRN PRN FLUSH 03/18/17 15:30 05/10/17 15:29 04/06/17 05:39 5 ML Benzonatate (Tessalon Perles Cap) 100 mg TID PRN PO 04/08/17 10:45 05/08/17 10:44 04/10/17 20:37 100 MG Calcitriol (Rocaltrol Cap) 4 mcg QAM PO 04/11/17 08:00 05/11/17 07:59 05/01/17 10:26 4 MCG Potassium/ Phosphorus/Sodium (Phospha 250 Neutral 155-852-130 Mg) 2 tab QID PO 04/10/17 17:00 05/10/17 16:59 05/01/17 09:44 2 TAB Ergocalciferol (Vitamin D Cap) 50,000 interunit DAILY PO 04/24/17 09:00 05/24/17 08:59 05/01/17 09:35 50,000 INTERUNIT Magnesium Oxide (Mag-Ox Tab) 400 mg BID PO 04/26/17 09:00 05/26/17 08:59 05/01/17 09:31 400 MG Calcium Gluconate 44450 mg/Sodium Chloride 600 ml @ 60 mls/hr Q10H IV 04/27/17 17:00 05/22/17 16:59 05/01/17 00:53 60 MLS/HR Impression (1) Hypocalcemia (2) Prostate cancer (3) Hypertension Mr. 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 He developed severe hypocalcemia following Denosumab infusion. Renal function is normal. 25OH D deficiency documented on presentation is being treated with Ergocalciferol 41996 IU. Calcitriol is also being provided. The patient is taking PO calcium in the form of TUMs and Oscal. Aggressive replacement with PO and IV calcium continues. The patient has had associated hypomagnesemia. He is tolerating oral magnesium replacement. Recommendations -- Serum calcium is mildly improved while Calcium Gluconate is infusing at 1 g/ hr. Will continue current rate until serum calcium rises to 9.0 or above and will then try to transition to only oral medications -- Will check Mg and PO4 in am -- Continue Mg Oxide 400 mg BID -- Continue Calcitriol 4 mcg daily, OsCal 2500 QID, TUMS 2 grams TID -- Monitor serum calcium daily
--- NOTE | 2017-05-01 16:00 | Progress Note ---
Subjective Date of Service: May 01, 2017. Subjective Pt evaluation today including: conversation w/ patient, physical exam, chart review, lab review, review of inpatient medication list Pain: does not complain of any pain PO Intake: po intake is adequet Voiding: no voiding problems Problem List Medical Problems: (1) Dehydration Status: Acute (2) Failure to thrive Status: Acute (3) Hypomagnesemia Status: Acute (4) UTI (urinary tract infection) Status: Acute (5) Vomiting Status: Acute Review of Systems Review of system Constitutional: No fever / no chills / no sweats / no weakness / no fatigue Eyes: no blurring of vision / no eye pain / no discharge / no redness ENT: no hearing loss / no epistaxis /no swallowing problems Respiratory: no cough / no wheezing / no SOB / no hemoptysis Cardiovascular: no Chest pain / no lower extremity edema / no palpitation Abdomen: no pain / no nausea / no vomiting / no constipation Musculoskeletal: no joint pain / no muscle pain / no joint swelling Genitourinary: no dysuria / no incontinence / no urinary retention Neurologic: no focal weakness / no numbness/tingling / no ataxia Psychiatric: no depression symptoms / no anxiety / no insomnia Endocrine: no excessive thirst / no excessive urination Hematologic: no abnormal bleeding / no bruising / no LN swelling Skin: No rash / no pallor Objective Vital Signs Date Time Temp Pulse Resp B/P (MAP) Pulse Ox O2 Delivery O2 Flow Rate FiO2 05/01/17 12:02 36.3 86 16 108/64 (79) 94 Room Air 05/01/17 12:00 Room Air 05/01/17 11:18 Room Air 05/01/17 08:06 36.7 93 16 117/69 (85) 96 Room Air 05/01/17 08:00 96 Room Air 05/01/17 04:14 36.7 79 18 116/57 (76) 96 Room Air 05/01/17 04:00 Room Air 05/01/17 00:20 36.5 79 18 153/85 (107) 98 Room Air 05/01/17 00:00 Room Air 04/30/17 20:00 Room Air 04/30/17 19:46 36.4 83 18 132/61 (84) 93 Room Air 04/30/17 16:00 Room Air Physical Exam Comments: Physical examination General patient appears to be comfortable, not in acute distress HEENT: Atraumatic , normocephalic /no jaundice /no pallor /anicteric /no dry mucous membrane /normal external ear inspection Neck: Supple /no swelling /central trach Heart: S1/S2 normal/regular rate and rhythm/no gallop /no rub /no murmur Lungs: Clear to auscultation bilaterally/normal chest with expansion/no rhonchi/ no rales/no wheezing/no use of accessory muscles of respiration Abdomen: Soft/nontender/no guarding/no rebound/no organomegaly/no pulsatile mass Musculoskeletal: No swelling/no edema/no tenderness/normal range of motion Neuro exam: Awake alert oriented 3/cranial nerves II through XII appear to be intact/sensation intact/moves all extremities/no abnormal movements Psychiatric evaluation: No depressed mood/normal affect Skin: No rash on exposed skin area/no erythema Extremity: Normal pulse/no pitting edema/no clubbing or cyanosis Endocrine/lymphatic: No obvious lymphadenopathy /no lymphedema Laboratory Results Last 24 Hours Test 05/01/17 05:10 White Blood Count 4.97 K/uL Red Blood Count 3.44 M/uL Hemoglobin 10.2 g/dL Hematocrit 30.9 % Mean Corpuscular Volume 89.8 fL Mean Corpuscular Hemoglobin 29.7 pg Mean Corpuscular Hemoglobin Concent 33.0 g/dl Platelet Count 156 K/uL Mean Platelet Volume 8.4 fL Neutrophils (%) (Auto) 41.1 % Lymphocytes (%) (Auto) 42.3 % Monocytes (%) (Auto) 8.0 % Eosinophils (%) (Auto) 7.8 % Basophils (%) (Auto) 0.4 % Neutrophils # (Auto) 2.04 K/uL Lymphocytes # (Auto) 2.10 K/uL Monocytes # (Auto) 0.40 K/uL Eosinophils # (Auto) 0.39 K/uL Basophils # (Auto) 0.02 K/uL RDW Standard Deviation 54.9 fL RDW Coefficient of Variation 16.7 % Immature Granulocyte % (Auto) 0.4 % Immature Granulocyte # (Auto) 0.02 K/uL Sodium Level 140 mmol/L Potassium Level 4.3 mmol/L Chloride Level 106 mmol/L Carbon Dioxide Level 29 mmol/L Anion Gap 5.0 mmol/L Blood Urea Nitrogen 23 mg/dl Creatinine 1.21 mg/dl Est Creatinine Clear Calc Drug Dose 40.2 ml/min Estimated GFR () 63.8 Estimated GFR (Non- 55.0 BUN/Creatinine Ratio 19.2 Random Glucose 84 mg/dl Calcium Level 8.7 mg/dl Magnesium Level 1.7 mg/dl Total Bilirubin 0.2 mg/dl Aspartate Amino Transf (AST/SGOT) 17 U/L Alanine Aminotransferase (ALT/SGPT) 14 U/L Alkaline Phosphatase 614 U/L Total Protein 5.9 gm/dl Albumin 2.9 gm/dl Globulin 3.0 gm/dl Albumin/Globulin Ratio 1.0 Assessment and Plan 81-year-old man with metastasized prostate cancer, with osteoblastic bone metastases who presented with fatigue due to severe hypocalcemia. Assessment Severe hypocalcemia believed to be attributed to Denosumab /bone metastasis Hypomagnesemia and hypophosphatemia Metastasized prostate cancer, with osteoblastic bone metastases Complicated due to i.e. with stenotrophomonas present on admission Urinary retention with urine outflow obstruction, status post indwelling Berkowitz Right arm superficial thrombophlebitis Seborrheic dermatitis Chronic kidney disease stage III Intertrigo/oral thrush Plan Continue telemetry Continue aggressive calcium replacement, currently on 1 g IV per hour infusion of calcium gluconate plus large dose of oral calcium supplement, calcium level today is 8.7. Slightly better than before, , the plan by Dr. Cifuentes is to wait until it reaches 9 then switch him to oral and transferred to LTAC Continue magnesium replacement 400 mg p.o. twice daily Continue Flomax Continue ranitidine for GI prophylaxis Heparin for DVT prophylaxis Plan to discharge patient to LTAC as soon as calcium infusion stopped Discussed case with patient will order labs in am Continued [facility] stay due to: multiple IV medications needed Discharge planning: uncertain
[2017-05-01] MEDS: TAMSULOSIN HCL 0.4 MG CAP PO SCH (20:53)
[2017-05-01] MEDS: RANITIDINE HCL 150 MG TAB PO SCH (20:55)
[2017-05-02] VITALS (7 sets, daily range): BP systolic 102–128; BP diastolic 60–73; PULSE 62–86; TEMP 36.5–37; O2SAT 95–97
[2017-05-02 06:59] LABS: CALCIUM 8.6 mg/dl (8.5-10.1); CREATININE 1.19 mg/dl (0.60-1.40); PHOSPHORUS 2.7 mg/dl (2.5-4.9)
[2017-05-02 07:45] LABS: POTASSIUM 4.1 mmol/L (3.5-5.1)
[2017-05-02] MEDS: POT PHOSPHATE MONOBASIC W/ SOD TAB PO SCH ×4 (08:12→21:10)
[2017-05-02] MEDS: CALCITRIOL 0.25 MCG CAP PO SCH (08:14)
[2017-05-02] MEDS: MAGNESIUM OXIDE 400 MG TAB PO SCH ×2 (08:14→21:13)
[2017-05-02] MEDS: CALCIUM CARBONATE 1250MG TAB PO SCH ×4 (08:14→21:09)
[2017-05-02] MEDS: DOCUSATE SODIUM 100 MG CAP PO SCH ×2 (08:15→21:11)
[2017-05-02] MEDS: PANTOprazole SOD 40 MG TAB PO SCH (08:15)
[2017-05-02] MEDS: CALCIUM CARBONATE 500 MG CHEWABLE PO SCH ×4 (08:15→21:10)
[2017-05-02] MEDS: ERGOCALCIFEROL 50,000 INTER.UNIT CAP PO SCH (08:16)
[2017-05-02] MEDS: HEPARIN SOD 5000 UNIT/0.5 ML CARP SQ SCH ×2 (08:22→21:21)
[2017-05-02] MEDS: SODIUM CHLORIDE 0.9% IV SCH ×2 (08:27→17:54)
[2017-05-02] MEDS: CALCIUM GLUCONATE IV SCH ×2 (08:27→17:54)
--- NOTE | 2017-05-02 11:04 | Nephrology Progress Note ---
Nephrology Progress Note Date of Service May 02, 2017. Chief Complaint Hypocalcemia, metastatic prostate cancer Subjective Mr. Greene was seen & examined in his hospital room this morning. He is tolerating IV calcium infusion without dyspnea or LE edema. He voices no medical concerns. Review of Systems Constitutional: No fever Cardiovascular: No chest pain Respiratory: No dyspnea at rest Abdomen: No pain, No nausea, No vomiting Extremities: No leg edema A complete review of systems was performed. Pertinent positives are noted above. All other systems are negative. Vital Signs Last 8 Hrs Date Time Temp Pulse Resp B/P (MAP) Pulse Ox O2 Delivery O2 Flow Rate FiO2 05/02/17 08:30 96 Room Air 05/02/17 06:35 36.5 79 18 128/73 (91) 95 Room Air 05/02/17 04:00 Room Air 05/02/17 03:30 36.6 85 18 127/60 (82) 97 Room Air Last Recorded Weight Weight (Kilograms): 65.000 Physical Exam General Appearance: no apparent distress Head: normocephalic, atraumatic Eyes: PERRL, EOMI Neck: no adenopathy Respiratory/Chest: lungs clear, no respiratory distress Cardiovascular: regular rate, rhythm Abdomen/GI: normal bowel sounds, non tender, soft Extremities/Musculoskelatal: no calf tenderness, no pedal edema Neurologic/Psych: alert, oriented x 3 Social History Drug Use: none Marital Status: Housing Status: lives with family (lives with son) 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 05/02/17 05:50 05/02/17 07:07 Test 05/02/17 05:50 05/02/17 07:07 Anion Gap 9.0 mmol/L (3-11) Est Creatinine Clear Calc Drug Dose 40.9 ml/min Estimated GFR () 65.1 Estimated GFR (Non- 56.2 BUN/Creatinine Ratio 16.8 (10-20) Calcium Level 8.6 mg/dl (8.5-10.1) Phosphorus Level 2.7 mg/dl (2.5-4.9) Magnesium Level mg/dl (1.8-2.4) 1.8 mg/dl (1.8-2.4) Allergies Coded Allergies: No Known Allergies (Unverified , 03/15/17) Medications Current Inpatient Medications Medications (Trade) Dose Ordered Sig/Jonathan Route Start Time Stop Time Status Last Admin Dose Admin Acetaminophen (Tylenol Tab) 650 mg Q4H PRN PO 03/15/17 14:15 05/10/17 14:14 Tamsulosin HCl (Flomax Cap) 0.8 mg HS PO 03/15/17 21:00 05/10/17 20:59 05/01/17 20:53 0.8 MG Miscellaneous Information (Order Awaiting Action) 1 ea QS N/A 03/15/17 16:00 05/10/17 15:59 Pantoprazole Sodium (Protonix Tab) 40 mg QAM PO 03/16/17 09:00 05/10/17 08:59 05/02/17 08:15 40 MG Ranitidine HCl (zANTac TAB) 300 mg HS PO 03/15/17 21:00 05/10/17 20:59 05/01/17 20:55 300 MG Polyethylene (Miralax Powder Packet) 17 gm DAILY PRN PO 03/15/17 15:00 05/10/17 14:59 Docusate Sodium (coLACE CAP) 100 mg BID PO 03/15/17 21:00 05/10/17 20:59 05/02/17 08:15 100 MG Bisacodyl (Dulcolax Supp) 10 mg DAILY PRN IL 03/15/17 15:00 05/10/17 14:59 Heparin Sodium (Porcine) (Heparin Sq 5000 Unit/0.5ml) 5,000 unit Q12 SQ 03/15/17 21:00 05/10/17 20:59 05/02/17 08:22 5,000 UNIT Calcium Carbonate (Tums Chew Tab) 2,000 mg QID PO 03/16/17 17:00 05/10/17 16:59 05/02/17 08:15 2,000 MG Calcium Carbonate (oS-Randy 500 TAB) 1,250 mg QID PO 03/18/17 09:00 05/10/17 08:59 05/02/17 08:14 1,250 MG Miscellaneous (Tap Water Enema) 1 ea Q2D PRN IL 03/18/17 13:30 05/10/17 13:29 Heparin Sodium (Porcine) (Heparin 10 Unit/ ml 5 ml Flush) 5 ml PRN PRN FLUSH 03/18/17 15:30 05/10/17 15:29 05/01/17 21:01 5 ML Benzonatate (Tessalon Perles Cap) 100 mg TID PRN PO 04/08/17 10:45 05/08/17 10:44 04/10/17 20:37 100 MG Calcitriol (Rocaltrol Cap) 4 mcg QAM PO 04/11/17 08:00 05/11/17 07:59 05/02/17 08:14 4 MCG Potassium/ Phosphorus/Sodium (Phospha 250 Neutral 155-852-130 Mg) 2 tab QID PO 04/10/17 17:00 05/10/17 16:59 05/02/17 08:12 2 TAB Ergocalciferol (Vitamin D Cap) 50,000 interunit DAILY PO 04/24/17 09:00 05/24/17 08:59 05/02/17 08:16 50,000 INTERUNIT Magnesium Oxide (Mag-Ox Tab) 400 mg BID PO 04/26/17 09:00 05/26/17 08:59 05/02/17 08:14 400 MG Calcium Gluconate 86309 mg/Sodium Chloride 600 ml @ 60 mls/hr Q10H IV 04/27/17 17:00 05/22/17 16:59 05/02/17 08:27 60 MLS/HR Impression (1) Hypocalcemia (2) Prostate cancer (3) Hypertension Mr. 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 He developed severe hypocalcemia following Denosumab infusion. Renal function is normal. 25OH D deficiency documented on presentation is being treated with Ergocalciferol 85715 IU. Calcitriol is also being provided. The patient is taking PO calcium in the form of TUMs and Oscal. Aggressive replacement with PO and IV calcium continues. The patient has had associated hypomagnesemia. He is tolerating oral magnesium replacement. Recommendations -- Serum calcium is relatively stable while Calcium Gluconate is infusing at 1 g /hr. Will continue current rate until serum calcium rises to 9.0 or above and will then try to transition to only oral medications -- Mg and PO4 were checked today and remain acceptable -- Continue Mg Oxide 400 mg BID -- Continue Calcitriol 4 mcg daily, OsCal 2500 QID, TUMS 2 grams TID -- Monitor serum calcium daily
[2017-05-02] MEDS: RANITIDINE HCL 150 MG TAB PO SCH (21:11)
[2017-05-02] MEDS: TAMSULOSIN HCL 0.4 MG CAP PO SCH (21:12)
[2017-05-03] VITALS (10 sets, daily range): BP systolic 111–131; BP diastolic 57–75; PULSE 77–106; TEMP 36.6–37.1; O2SAT 93–96
[2017-05-03] MEDS: CALCIUM GLUCONATE IV SCH (03:37)
[2017-05-03] MEDS: SODIUM CHLORIDE 0.9% IV SCH (03:37)
[2017-05-03 07:04] LABS: CALCIUM 8.6 mg/dl (8.5-10.1); CREATININE 1.11 mg/dl (0.60-1.40)
[2017-05-03] MEDS: DOCUSATE SODIUM 100 MG CAP PO SCH ×2 (08:49→21:46)
[2017-05-03] MEDS: MAGNESIUM OXIDE 400 MG TAB PO SCH ×2 (08:49→21:47)
[2017-05-03] MEDS: POT PHOSPHATE MONOBASIC W/ SOD TAB PO SCH ×4 (08:49→21:47)
[2017-05-03] MEDS: PANTOprazole SOD 40 MG TAB PO SCH (08:49)
[2017-05-03] MEDS: ERGOCALCIFEROL 50,000 INTER.UNIT CAP PO SCH (08:49)
[2017-05-03] MEDS: CALCITRIOL 0.25 MCG CAP PO SCH (08:50)
[2017-05-03] MEDS: CALCIUM CARBONATE 1250MG TAB PO SCH ×4 (08:50→21:46)
[2017-05-03] MEDS: CALCIUM CARBONATE 500 MG CHEWABLE PO SCH ×4 (08:51→21:48)
[2017-05-03] MEDS: HEPARIN SOD 5000 UNIT/0.5 ML CARP SQ SCH ×2 (08:52→21:53)
--- NOTE | 2017-05-03 10:48 | Nephrology Progress Note ---
Nephrology Progress Note Date of Service May 03, 2017. Chief Complaint Hypocalcemia, metastatic prostate cancer Subjective Mr. Greene was seen & examined in his hospital room this morniing. He is tolerating IV Ca infusion without dyspnea or progressive LE edema. He remains active by ambulating in the hallway each morning Review of Systems Constitutional: No fever Cardiovascular: No chest pain Respiratory: No dyspnea at rest Abdomen: No pain, No nausea, No vomiting Extremities: No leg edema A complete review of systems was performed. Pertinent positives are noted above. All other systems are negative. Vital Signs Last 8 Hrs Date Time Temp Pulse Resp B/P (MAP) Pulse Ox O2 Delivery O2 Flow Rate FiO2 05/03/17 08:30 Room Air 05/03/17 08:05 36.6 102 18 128/68 (88) 95 Room Air 05/03/17 04:36 36.6 77 18 113/57 (75) 93 Room Air 05/03/17 04:00 Room Air Last Recorded Weight Weight (Kilograms): 61.500 Physical Exam General Appearance: no apparent distress Head: normocephalic, atraumatic Eyes: PERRL, EOMI Neck: no adenopathy, no JVD Respiratory/Chest: lungs clear, no respiratory distress Cardiovascular: regular rate, rhythm Abdomen/GI: normal bowel sounds, non tender, soft Extremities/Musculoskelatal: no calf tenderness, no pedal edema Neurologic/Psych: alert, oriented x 3 Social History Drug Use: none Marital Status: Housing Status: lives with family (lives with son) 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 05/03/17 05:15 05/03/17 07:18 Test 05/03/17 05:15 Anion Gap 7.0 mmol/L (3-11) Est Creatinine Clear Calc Drug Dose 43.9 ml/min Estimated GFR () 70.8 Estimated GFR (Non- 61.1 BUN/Creatinine Ratio 16.1 (10-20) Calcium Level 8.6 mg/dl (8.5-10.1) Allergies Coded Allergies: No Known Allergies (Unverified , 03/15/17) Medications Current Inpatient Medications Medications (Trade) Dose Ordered Sig/Jonathan Route Start Time Stop Time Status Last Admin Dose Admin Acetaminophen (Tylenol Tab) 650 mg Q4H PRN PO 03/15/17 14:15 05/10/17 14:14 Tamsulosin HCl (Flomax Cap) 0.8 mg HS PO 03/15/17 21:00 05/10/17 20:59 05/02/17 21:12 0.8 MG Miscellaneous Information (Order Awaiting Action) 1 ea QS N/A 03/15/17 16:00 05/10/17 15:59 Pantoprazole Sodium (Protonix Tab) 40 mg QAM PO 03/16/17 09:00 05/10/17 08:59 05/03/17 08:49 40 MG Ranitidine HCl (zANTac TAB) 300 mg HS PO 03/15/17 21:00 05/10/17 20:59 05/02/17 21:11 300 MG Polyethylene (Miralax Powder Packet) 17 gm DAILY PRN PO 03/15/17 15:00 05/10/17 14:59 Docusate Sodium (coLACE CAP) 100 mg BID PO 03/15/17 21:00 05/10/17 20:59 05/03/17 08:49 100 MG Bisacodyl (Dulcolax Supp) 10 mg DAILY PRN ME 03/15/17 15:00 05/10/17 14:59 Heparin Sodium (Porcine) (Heparin Sq 5000 Unit/0.5ml) 5,000 unit Q12 SQ 03/15/17 21:00 05/10/17 20:59 05/03/17 08:52 5,000 UNIT Calcium Carbonate (Tums Chew Tab) 2,000 mg QID PO 03/16/17 17:00 05/10/17 16:59 05/03/17 08:51 2,000 MG Calcium Carbonate (oS-Randy 500 TAB) 1,250 mg QID PO 03/18/17 09:00 05/10/17 08:59 05/03/17 08:50 1,250 MG Miscellaneous (Tap Water Enema) 1 ea Q2D PRN ME 03/18/17 13:30 05/10/17 13:29 Heparin Sodium (Porcine) (Heparin 10 Unit/ ml 5 ml Flush) 5 ml PRN PRN FLUSH 03/18/17 15:30 05/10/17 15:29 05/01/17 21:01 5 ML Benzonatate (Tessalon Perles Cap) 100 mg TID PRN PO 04/08/17 10:45 05/08/17 10:44 04/10/17 20:37 100 MG Calcitriol (Rocaltrol Cap) 4 mcg QAM PO 04/11/17 08:00 05/11/17 07:59 05/03/17 08:50 4 MCG Potassium/ Phosphorus/Sodium (Phospha 250 Neutral 155-852-130 Mg) 2 tab QID PO 04/10/17 17:00 05/10/17 16:59 05/03/17 08:49 2 TAB Ergocalciferol (Vitamin D Cap) 50,000 interunit DAILY PO 04/24/17 09:00 05/24/17 08:59 05/03/17 08:49 50,000 INTERUNIT Magnesium Oxide (Mag-Ox Tab) 400 mg BID PO 04/26/17 09:00 05/26/17 08:59 05/03/17 08:49 400 MG Calcium Gluconate 12586 mg/Sodium Chloride 600 ml @ 30 mls/hr Q20H IV 04/27/17 17:00 05/22/17 16:59 05/03/17 03:37 60 MLS/HR Impression (1) Hypocalcemia (2) Prostate cancer (3) Hypertension Mr. 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 He developed severe hypocalcemia following Denosumab infusion. Renal function is normal. 25OH D deficiency documented on presentation is being treated with Ergocalciferol 09549 IU. Calcitriol is also being provided. The patient is taking PO calcium in the form of TUMs and Oscal. Aggressive replacement with PO and IV calcium continues. The patient has had associated hypomagnesemia. He is tolerating oral magnesium replacement. Recommendations -- Serum calcium is relatively stable. Will reduce Calcium Gluconate rate to 30 cc/hr (0.5 g calcium/hr). Will recheck serum calcium this afternoon -- Mg and PO4 were checked yesterday and remain acceptable -- Continue Mg Oxide 400 mg BID -- Continue Calcitriol 4 mcg daily, OsCal 2500 QID, TUMS 2 grams TID -- Monitor serum calcium daily
[2017-05-03 14:39] LABS: CALCIUM 11.1 mg/dl (8.5-10.1); CREATININE 1.26 mg/dl (0.60-1.40); POTASSIUM 4.4 mmol/L (3.5-5.1)
--- NOTE | 2017-05-03 16:27 | Progress Note ---
Subjective Date of Service: May 03, 2017. Subjective Pt evaluation today including: conversation w/ patient, physical exam, lab review, review of inpatient medication list Pain: no pain PO Intake: adequate Voiding: bey catheter in place ambulating halls, feeling well Ca was 8.6 this AM, up to 11 in the afternoon could be inaccurate, check repeat stat hoping to come off of IV calcium Problem List Medical Problems: (1) Dehydration Status: Acute (2) Failure to thrive Status: Acute (3) Hypomagnesemia Status: Acute (4) UTI (urinary tract infection) Status: Acute (5) Vomiting Status: Acute Review of Systems All Other Systems: Reviewed and Negative Medications Current Inpatient Medications Medications (Trade) Dose Ordered Sig/Jonathan Route Start Time Stop Time Status Last Admin Dose Admin Acetaminophen (Tylenol Tab) 650 mg Q4H PRN PO 03/15/17 14:15 05/10/17 14:14 Tamsulosin HCl (Flomax Cap) 0.8 mg HS PO 03/15/17 21:00 05/10/17 20:59 05/02/17 21:12 0.8 MG Miscellaneous Information (Order Awaiting Action) 1 ea QS N/A 03/15/17 16:00 05/10/17 15:59 Pantoprazole Sodium (Protonix Tab) 40 mg QAM PO 03/16/17 09:00 05/10/17 08:59 05/03/17 08:49 40 MG Ranitidine HCl (zANTac TAB) 300 mg HS PO 03/15/17 21:00 05/10/17 20:59 05/02/17 21:11 300 MG Polyethylene (Miralax Powder Packet) 17 gm DAILY PRN PO 03/15/17 15:00 05/10/17 14:59 Docusate Sodium (coLACE CAP) 100 mg BID PO 03/15/17 21:00 05/10/17 20:59 05/03/17 08:49 100 MG Bisacodyl (Dulcolax Supp) 10 mg DAILY PRN SC 03/15/17 15:00 05/10/17 14:59 Heparin Sodium (Porcine) (Heparin Sq 5000 Unit/0.5ml) 5,000 unit Q12 SQ 03/15/17 21:00 05/10/17 20:59 05/03/17 08:52 5,000 UNIT Calcium Carbonate (Tums Chew Tab) 2,000 mg QID PO 03/16/17 17:00 05/10/17 16:59 Future Hold 05/03/17 12:42 2,000 MG Calcium Carbonate (oS-Randy 500 TAB) 1,250 mg QID PO 03/18/17 09:00 05/10/17 08:59 Future Hold 05/03/17 12:42 1,250 MG Miscellaneous (Tap Water Enema) 1 ea Q2D PRN SC 03/18/17 13:30 05/10/17 13:29 Heparin Sodium (Porcine) (Heparin 10 Unit/ ml 5 ml Flush) 5 ml PRN PRN FLUSH 03/18/17 15:30 05/10/17 15:29 05/01/17 21:01 5 ML Benzonatate (Tessalon Perles Cap) 100 mg TID PRN PO 04/08/17 10:45 05/08/17 10:44 04/10/17 20:37 100 MG Calcitriol (Rocaltrol Cap) 4 mcg QAM PO 04/11/17 08:00 05/11/17 07:59 Future Hold 05/03/17 08:50 4 MCG Potassium/ Phosphorus/Sodium (Phospha 250 Neutral 155-852-130 Mg) 2 tab QID PO 04/10/17 17:00 05/10/17 16:59 05/03/17 12:41 2 TAB Ergocalciferol (Vitamin D Cap) 50,000 interunit DAILY PO 04/24/17 09:00 05/24/17 08:59 Future Hold 05/03/17 08:49 50,000 INTERUNIT Magnesium Oxide (Mag-Ox Tab) 400 mg BID PO 04/26/17 09:00 05/26/17 08:59 05/03/17 08:49 400 MG Objective Vital Signs Date Time Temp Pulse Resp B/P (MAP) Pulse Ox O2 Delivery O2 Flow Rate FiO2 05/03/17 15:25 36.9 84 18 129/74 (92) 96 Room Air 05/03/17 12:00 Room Air 05/03/17 11:54 36.6 84 16 123/61 (81) 95 Room Air 05/03/17 10:46 95 Room Air 05/03/17 08:30 Room Air 05/03/17 08:05 36.6 102 18 128/68 (88) 95 Room Air 05/03/17 04:36 36.6 77 18 113/57 (75) 93 Room Air 05/03/17 04:00 Room Air 05/03/17 00:00 36.8 77 16 111/60 (77) 96 Room Air 05/03/17 00:00 Room Air 05/02/17 20:09 95 Room Air Physical Exam General Appearance: WD/WN, no apparent distress Eyes: normal inspection, EOMI, sclerae normal Neck: supple, no adenopathy, no JVD, trachea midline Respiratory/Chest: chest non-tender, lungs clear, normal breath sounds, no respiratory distress, no accessory muscle use Cardiovascular: regular rate, rhythm, no edema, no gallop, no JVD, no murmur Abdomen: normal bowel sounds, non tender, soft, no organomegaly Extremities: normal range of motion, non-tender, normal inspection, no pedal edema, no calf tenderness Laboratory Results Last 24 Hours Test 05/03/17 05:15 05/03/17 07:18 05/03/17 14:00 05/03/17 16:05 Sodium Level 141 mmol/L 140 mmol/L Potassium Level mmol/L 4.2 mmol/L 4.4 mmol/L Chloride Level 108 mmol/L 107 mmol/L Carbon Dioxide Level 26 mmol/L 26 mmol/L Anion Gap 7.0 mmol/L 7.0 mmol/L Blood Urea Nitrogen 18 mg/dl 20 mg/dl Creatinine 1.11 mg/dl 1.26 mg/dl Est Creatinine Clear Calc Drug Dose 43.9 ml/min 38.6 ml/min Estimated GFR () 70.8 60.7 Estimated GFR (Non- 61.1 52.4 BUN/Creatinine Ratio 16.1 15.6 Random Glucose 78 mg/dl 76 mg/dl Calcium Level 8.6 mg/dl 11.1 mg/dl Assessment and Plan 81 year old man with a history of prostate cancer and osteoblastic mets admitted because of severe hypocalcemia associated with with fatigue and found to have severe hypocalcemia secondary to his Denosumab (03/02/2017) Hypocalcemia calcium today is 8.6 today and then repeat was 11 checking stat calcium again this afternoon if elevated then the RN will page Dr. Cifuentes hoping to go off of IV calcium -- continue IV calcium, hope to d/c soon -- discontinue hydrochlorothiazide as blood pressure has been relatively soft -- Continue Calcitriol 4 mcg daily -- Continue OsCal 2500 QID -- Continue TUMS 2 grams TID -- Continue Ergocalciferol 50,000 units daily x 12 doses completed per report: hypocalcemia related to Denosumab. Continued [facility] stay due to: multiple IV medications needed Discharge planning: uncertain
[2017-05-03] MEDS: RANITIDINE HCL 150 MG TAB PO SCH (21:46)
[2017-05-03] MEDS: TAMSULOSIN HCL 0.4 MG CAP PO SCH (21:47)
[2017-05-04] VITALS (9 sets, daily range): BP systolic 103–135; BP diastolic 56–68; PULSE 79–89; TEMP 36.2–37.1; O2SAT 94–97
[2017-05-04 06:38] LABS: CALCIUM 7.5 mg/dl (8.5-10.1); CREATININE 1.17 mg/dl (0.60-1.40); POTASSIUM 4.2 mmol/L (3.5-5.1)
[2017-05-04] MEDS: POT PHOSPHATE MONOBASIC W/ SOD TAB PO SCH ×4 (08:10→21:04)
[2017-05-04] MEDS: CALCIUM CARBONATE 1250MG TAB PO SCH ×4 (08:10→21:04)
[2017-05-04] MEDS: DOCUSATE SODIUM 100 MG CAP PO SCH ×2 (08:10→21:03)
[2017-05-04] MEDS: MAGNESIUM OXIDE 400 MG TAB PO SCH ×2 (08:10→21:04)
[2017-05-04] MEDS: CALCIUM CARBONATE 500 MG CHEWABLE PO SCH ×4 (08:11→21:04)
[2017-05-04] MEDS: PANTOprazole SOD 40 MG TAB PO SCH (08:11)
[2017-05-04] MEDS: ERGOCALCIFEROL 50,000 INTER.UNIT CAP PO SCH (08:11)
[2017-05-04] MEDS: CALCITRIOL 0.25 MCG CAP PO SCH (08:11)
[2017-05-04] MEDS: HEPARIN SOD 5000 UNIT/0.5 ML CARP SQ SCH (08:16)
[2017-05-04] MEDS: CALCIUM GLUCONATE IV SCH ×3 (09:55→21:01)
[2017-05-04] MEDS: SODIUM CHLORIDE 0.9% IV SCH ×3 (09:55→21:01)
[2017-05-04] MEDS ORDERED: NURSING VERBAL MED ORDER ONE (10:15)
--- NOTE | 2017-05-04 14:14 | Progress Note ---
Subjective Date of Service: May 04, 2017. Subjective Pt evaluation today including: conversation w/ patient, physical exam, lab review, review of inpatient medication list Pain: no pain PO Intake: adequate Voiding: no voiding problems patient doing well, ambulating in halls no new issues Ca down to 7.5 Problem List Medical Problems: (1) Dehydration Status: Acute (2) Failure to thrive Status: Acute (3) Hypomagnesemia Status: Acute (4) UTI (urinary tract infection) Status: Acute (5) Vomiting Status: Acute Review of Systems All Other Systems: Reviewed and Negative Medications Current Inpatient Medications Medications (Trade) Dose Ordered Sig/Jonathan Route Start Time Stop Time Status Last Admin Dose Admin Acetaminophen (Tylenol Tab) 650 mg Q4H PRN PO 03/15/17 14:15 05/10/17 14:14 Tamsulosin HCl (Flomax Cap) 0.8 mg HS PO 03/15/17 21:00 05/10/17 20:59 05/03/17 21:47 0.8 MG Miscellaneous Information (Order Awaiting Action) 1 ea QS N/A 03/15/17 16:00 05/10/17 15:59 Pantoprazole Sodium (Protonix Tab) 40 mg QAM PO 03/16/17 09:00 05/10/17 08:59 05/04/17 08:11 40 MG Ranitidine HCl (zANTac TAB) 300 mg HS PO 03/15/17 21:00 05/10/17 20:59 05/03/17 21:46 300 MG Polyethylene (Miralax Powder Packet) 17 gm DAILY PRN PO 03/15/17 15:00 05/10/17 14:59 Docusate Sodium (coLACE CAP) 100 mg BID PO 03/15/17 21:00 05/10/17 20:59 05/04/17 08:10 100 MG Bisacodyl (Dulcolax Supp) [address] 03/15/17 15:00 05/10/17 14:59 Calcium Carbonate (Tums Chew Tab) 2,000 mg QID PO 03/16/17 17:00 05/10/17 16:59 Future hold 05/04/17 13:36 2,000 MG Calcium Carbonate (oS-Randy 500 TAB) 1,250 mg QID PO 03/18/17 09:00 05/10/17 08:59 Future hold 05/04/17 13:35 1,250 MG Miscellaneous (Tap Water Enema) [address] 03/18/17 13:30 05/10/17 13:29 Heparin Sodium (Porcine) (Heparin 10 Unit/ ml 5 ml Flush) 5 ml PRN PRN FLUSH 03/18/17 15:30 05/10/17 15:29 05/04/17 05:43 5 ML Benzonatate (Tessalon Perles Cap) 100 mg TID PRN PO 04/08/17 10:45 05/08/17 10:44 04/10/17 20:37 100 MG Calcitriol (Rocaltrol Cap) 4 mcg QAM PO 04/11/17 08:00 05/11/17 07:59 Future hold 05/04/17 08:11 4 MCG Potassium/ Phosphorus/Sodium (Phospha 250 Neutral 155-852-130 Mg) 2 tab QID PO 04/10/17 17:00 05/10/17 16:59 05/04/17 13:36 2 TAB Ergocalciferol (Vitamin D Cap) 50,000 interunit DAILY PO 04/24/17 09:00 05/24/17 08:59 Future hold 05/04/17 08:11 50,000 INTERUNIT Magnesium Oxide (Mag-Ox Tab) 400 mg BID PO 04/26/17 09:00 05/26/17 08:59 05/04/17 08:10 400 MG Calcium Gluconate 47288 mg/Sodium Chloride 1,100 ml @ 220 mls/hr Q5H IV 05/04/17 09:00 06/03/17 08:59 05/04/17 09:55 220 MLS/HR Objective Vital Signs Date Time Temp Pulse Resp B/P (MAP) Pulse Ox O2 Delivery O2 Flow Rate FiO2 05/04/17 11:50 Room Air 05/04/17 11:15 36.2 89 20 103/64 (77) 94 05/04/17 07:45 36.6 79 20 108/59 (75) 97 05/04/17 07:45 Room Air 05/04/17 04:05 95 Room Air 05/04/17 03:29 36.9 82 16 119/68 (85) 95 Room Air 05/04/17 00:05 95 Room Air 05/03/17 23:10 37.1 87 18 131/75 (93) 95 Room Air 05/03/17 20:09 95 Room Air 05/03/17 19:08 36.7 106 20 124/69 (87) 93 Room Air 05/03/17 16:09 95 Room Air 05/03/17 15:25 36.9 84 18 129/74 (92) 96 Room Air Physical Exam General Appearance: WD/WN, no apparent distress Eyes: normal inspection, EOMI, sclerae normal ENT: normal ENT inspection, hearing grossly normal, pharynx normal Neck: supple, no adenopathy, no JVD, trachea midline Respiratory/Chest: chest non-tender, lungs clear, normal breath sounds, no respiratory distress, no accessory muscle use Cardiovascular: regular rate, rhythm, no edema, no gallop, no JVD, no murmur Abdomen: normal bowel sounds, non tender, soft, no organomegaly Extremities: normal range of motion, non-tender, normal inspection, no pedal edema, no calf tenderness, pelvis stable Neurologic/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 as tested, no motor/sensory deficits, alert, normal mood/affect, oriented x 3 Laboratory Results Last 24 Hours Test 05/03/17 16:05 05/04/17 05:20 Calcium Level 8.6 mg/dl 7.5 mg/dl Sodium Level 141 mmol/L Potassium Level 4.2 mmol/L Chloride Level 108 mmol/L Carbon Dioxide Level 26 mmol/L Anion Gap 7.0 mmol/L Blood Urea Nitrogen 21 mg/dl Creatinine 1.17 mg/dl Est Creatinine Clear Calc Drug Dose 41.6 ml/min Estimated GFR () 66.4 Estimated GFR (Non- 57.3 BUN/Creatinine Ratio 17.7 Random Glucose 87 mg/dl Assessment and Plan 81 year old man with a history of prostate cancer and osteoblastic mets admitted because of severe hypocalcemia associated with with fatigue and found to have severe hypocalcemia secondary to his Denosumab (03/02/2017) Hypocalcemia calcium down to 7.5 this AM after stopping the calcium drip will defer further treatment to nephrology -- continue IV calcium, tried to d/c yesterday and calcium dropped -- discontinue hydrochlorothiazide as blood pressure has been relatively soft -- Continue Calcitriol 4 mcg daily -- Continue OsCal 2500 QID -- Continue TUMS 2 grams TID -- Continue Ergocalciferol 50,000 units daily x 12 doses completed per report: hypocalcemia related to Denosumab. Continued [facility] stay due to: multiple IV medications needed Discharge planning: uncertain
--- NOTE | 2017-05-04 15:09 | Nephrology Progress Note ---
Nephrology Progress Note Date of Service May 04, 2017. Chief Complaint Hypocalcemia, metastatic prostate cancer Subjective Mr. Greene was seen & examined in his hospital room this morning. He voiced no new medical concerns. He remains active by ambulating in the hallway. Review of Systems Constitutional: No fever Cardiovascular: No chest pain Respiratory: No dyspnea at rest Abdomen: No pain, No nausea, No vomiting Extremities: No leg edema A complete review of systems was performed. Pertinent positives are noted above. All other systems are negative. Vital Signs Last 8 Hrs Date Time Temp Pulse Resp B/P (MAP) Pulse Ox O2 Delivery O2 Flow Rate FiO2 05/04/17 14:43 36.4 86 20 104/62 (76) 96 05/04/17 11:50 Room Air 05/04/17 11:15 36.2 89 20 103/64 (77) 94 05/04/17 07:45 36.6 79 20 108/59 (75) 97 05/04/17 07:45 Room Air I & O 24-Hour Column 05/05/17 08:00 Intake Total 923 ml Output Total 400 ml Balance 523 ml Last Recorded Weight Weight (Kilograms): 64.300 Physical Exam General Appearance: no apparent distress Head: normocephalic, atraumatic Eyes: PERRL, EOMI Neck: no adenopathy Respiratory/Chest: lungs clear, no respiratory distress Cardiovascular: regular rate, rhythm Abdomen/GI: normal bowel sounds, non tender, soft Extremities/Musculoskelatal: no calf tenderness, no pedal edema Neurologic/Psych: alert, oriented x 3 Social History Drug Use: none Marital Status: Housing Status: lives with family (lives with son) 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 05/04/17 05:20 Test 05/03/17 16:05 05/04/17 05:20 Calcium Level 8.6 mg/dl (8.5-10.1) 7.5 mg/dl (8.5-10.1) Anion Gap 7.0 mmol/L (3-11) Est Creatinine Clear Calc Drug Dose 41.6 ml/min Estimated GFR () 66.4 Estimated GFR (Non- 57.3 BUN/Creatinine Ratio 17.7 (10-20) Allergies Coded Allergies: No Known Allergies (Unverified , 03/15/17) Medications Current Inpatient Medications Medications (Trade) Dose Ordered Sig/Jonathan Route Start Time Stop Time Status Last Admin Dose Admin Acetaminophen (Tylenol Tab) 650 mg Q4H PRN PO 03/15/17 14:15 05/10/17 14:14 Tamsulosin HCl (Flomax Cap) 0.8 mg HS PO 03/15/17 21:00 05/10/17 20:59 05/03/17 21:47 0.8 MG Miscellaneous Information (Order Awaiting Action) 1 ea QS N/A 03/15/17 16:00 05/10/17 15:59 Pantoprazole Sodium (Protonix Tab) 40 mg QAM PO 03/16/17 09:00 05/10/17 08:59 05/04/17 08:11 40 MG Ranitidine HCl (zANTac TAB) 300 mg HS PO 03/15/17 21:00 05/10/17 20:59 05/03/17 21:46 300 MG Polyethylene (Miralax Powder Packet) 17 gm DAILY PRN PO 03/15/17 15:00 05/10/17 14:59 Docusate Sodium (coLACE CAP) 100 mg BID PO 03/15/17 21:00 05/10/17 20:59 05/04/17 08:10 100 MG Bisacodyl (Dulcolax Supp) 10 mg DAILY PRN SD 03/15/17 15:00 05/10/17 14:59 Calcium Carbonate (Tums Chew Tab) 2,000 mg QID PO 03/16/17 17:00 05/10/17 16:59 Future hold 05/04/17 13:36 2,000 MG Calcium Carbonate (oS-Randy 500 TAB) 1,250 mg QID PO 03/18/17 09:00 05/10/17 08:59 Future hold 05/04/17 13:35 1,250 MG Miscellaneous (Tap Water Enema) 1 ea Q2D PRN SD 03/18/17 13:30 05/10/17 13:29 Heparin Sodium (Porcine) (Heparin 10 Unit/ ml 5 ml Flush) 5 ml PRN PRN FLUSH 03/18/17 15:30 05/10/17 15:29 05/04/17 05:43 5 ML Benzonatate (Tessalon Perles Cap) 100 mg TID PRN PO 04/08/17 10:45 05/08/17 10:44 04/10/17 20:37 100 MG Calcitriol (Rocaltrol Cap) 4 mcg QAM PO 04/11/17 08:00 05/11/17 07:59 Future hold 05/04/17 08:11 4 MCG Potassium/ Phosphorus/Sodium (Phospha 250 Neutral 155-852-130 Mg) 2 tab QID PO 04/10/17 17:00 05/10/17 16:59 05/04/17 13:36 2 TAB Ergocalciferol (Vitamin D Cap) 50,000 interunit DAILY PO 04/24/17 09:00 05/24/17 08:59 Future hold 05/04/17 08:11 50,000 INTERUNIT Magnesium Oxide (Mag-Ox Tab) 400 mg BID PO 04/26/17 09:00 05/26/17 08:59 05/04/17 08:10 400 MG Calcium Gluconate 57662 mg/Sodium Chloride 1,100 ml @ 220 mls/hr Q5H IV 05/04/17 09:00 06/03/17 08:59 05/04/17 09:55 220 MLS/HR Impression (1) Hypocalcemia (2) Prostate cancer (3) Hypertension Mr. 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 He developed severe hypocalcemia following Denosumab infusion. Renal function is normal. 25OH D deficiency documented on presentation is being treated with Ergocalciferol 07545 IU. Calcitriol is also being provided. The patient is taking PO calcium in the form of TUMs and Oscal. Aggressive replacement with PO and IV calcium continues. The patient has had associated hypomagnesemia. He is tolerating oral magnesium replacement. Recommendations -- Serum calcium of 11 was spurious. Sample was drawn from PICC line. Repeat study was unchanged ~ 8.5. Calcium infusion held yesterday and serum calcium abruptly dropped to 7.5 (corrected ~ 8.3). -- Resume Ca Gluconate infusion at 2 g / hr IV -- Will order follow up Mg and PO4 for am -- Continue Mg Oxide 400 mg BID -- Continue Calcitriol 4 mcg daily, OsCal 2500 QID, TUMS 2 grams TID -- Monitor serum calcium daily -- Ambulate
[2017-05-04] MEDS: RANITIDINE HCL 150 MG TAB PO SCH (21:03)
[2017-05-04] MEDS: TAMSULOSIN HCL 0.4 MG CAP PO SCH (21:05)
[2017-05-05] VITALS (7 sets, daily range): BP systolic 114–146; BP diastolic 50–78; PULSE 62–96; TEMP 36.3–37.1; O2SAT 93–97
[2017-05-05] MEDS: CALCIUM GLUCONATE IV SCH ×5 (02:15→21:54)
[2017-05-05] MEDS: SODIUM CHLORIDE 0.9% IV SCH ×5 (02:15→21:54)
[2017-05-05 06:30] LABS: CREATININE 1.15 mg/dl (0.60-1.40); PHOSPHORUS 2.9 mg/dl (2.5-4.9); POTASSIUM 4.5 mmol/L (3.5-5.1)
[2017-05-05] MEDS: PANTOprazole SOD 40 MG TAB PO SCH (07:43)
[2017-05-05] MEDS: CALCIUM CARBONATE 1250MG TAB PO SCH ×4 (07:43→21:42)
[2017-05-05] MEDS: MAGNESIUM OXIDE 400 MG TAB PO SCH ×2 (07:43→21:42)
[2017-05-05] MEDS: DOCUSATE SODIUM 100 MG CAP PO SCH ×2 (07:43→21:43)
[2017-05-05] MEDS: ERGOCALCIFEROL 50,000 INTER.UNIT CAP PO SCH (07:43)
[2017-05-05] MEDS: POT PHOSPHATE MONOBASIC W/ SOD TAB PO SCH ×4 (07:43→21:40)
[2017-05-05] MEDS: CALCIUM CARBONATE 500 MG CHEWABLE PO SCH ×4 (07:43→21:41)
[2017-05-05] MEDS: CALCITRIOL 0.25 MCG CAP PO SCH (07:44)
--- NOTE | 2017-05-05 12:35 | Nephrology Progress Note ---
Nephrology Progress Note Date of Service May 05, 2017. Chief Complaint Follow-up for hypocalcemia Subjective Bennett was seen and examined in his room this morning. She has been otherwise doing well, denies any symptom. Blood pressure stable. Electrolyte acceptable. Calcium improved to 10. Review of Systems A complete review of systems was performed. Pertinent positives are noted above. All other systems are negative. Vital Signs Last 8 Hrs Date Time Temp Pulse Resp B/P (MAP) Pulse Ox O2 Delivery O2 Flow Rate FiO2 05/05/17 12:00 Room Air 05/05/17 11:44 36.7 79 18 129/68 (88) 96 Room Air 05/05/17 07:45 Room Air 05/05/17 07:14 36.5 74 18 128/59 (82) 94 Room Air Last Recorded Weight Weight (Kilograms): 66.300 Physical Exam GENERAL: Elderly male, AAA x 3, pleasant, healthy-appearing, not in any distress. NECK: Supple, no JVD. RESPIRATORY: Normal breathing efforts, no accessory muscle use, clear to auscultation bilaterally, no wheezes or rales. CARDIOVASCULAR: S1, S2 normal, rate rhythm regular. EXTREMITY: No lower extremity edema NEURO: speech fluent. 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 05/05/17 05:15 Test 05/05/17 05:15 Anion Gap 8.0 mmol/L (3-11) Est Creatinine Clear Calc Drug Dose 42.3 ml/min Estimated GFR () 67.8 Estimated GFR (Non- 58.5 BUN/Creatinine Ratio 15.8 (10-20) Calcium Level 10.0 mg/dl (8.5-10.1) Phosphorus Level 2.9 mg/dl (2.5-4.9) Magnesium Level 1.8 mg/dl (1.8-2.4) Allergies Coded Allergies: No Known Allergies (Unverified , 03/15/17) Medications Current Inpatient Medications Medications (Trade) Dose Ordered Sig/Jonathan Route Start Time Stop Time Status Last Admin Dose Admin Acetaminophen (Tylenol Tab) 650 mg Q4H PRN PO 03/15/17 14:15 05/10/17 14:14 Tamsulosin HCl (Flomax Cap) 0.8 mg HS PO 03/15/17 21:00 05/10/17 20:59 05/04/17 21:05 0.8 MG Miscellaneous Information (Order Awaiting Action) 1 ea QS N/A 03/15/17 16:00 05/10/17 15:59 Pantoprazole Sodium (Protonix Tab) 40 mg QAM PO 03/16/17 09:00 05/10/17 08:59 05/05/17 07:43 40 MG Ranitidine HCl (zANTac TAB) 300 mg HS PO 03/15/17 21:00 05/10/17 20:59 05/04/17 21:03 300 MG Polyethylene (Miralax Powder Packet) 17 gm DAILY PRN PO 03/15/17 15:00 05/10/17 14:59 Docusate Sodium (coLACE CAP) 100 mg BID PO 03/15/17 21:00 05/10/17 20:59 05/05/17 07:43 100 MG Bisacodyl (Dulcolax Supp) 10 mg DAILY PRN MS 03/15/17 15:00 05/10/17 14:59 Calcium Carbonate (Tums Chew Tab) 2,000 mg QID PO 03/16/17 17:00 05/10/17 16:59 Future hold 05/05/17 11:56 2,000 MG Calcium Carbonate (oS-Randy 500 TAB) 1,250 mg QID PO 03/18/17 09:00 05/10/17 08:59 Future hold 05/05/17 11:55 1,250 MG Miscellaneous (Tap Water Enema) 1 ea Q2D PRN [place] 03/18/17 13:30 05/10/17 13:29 Heparin Sodium (Porcine) (Heparin 10 Unit/ ml 5 ml Flush) 5 ml PRN PRN FLUSH 03/18/17 15:30 05/10/17 15:29 05/04/17 05:43 5 ML Benzonatate (Tessalon Perles Cap) 100 mg TID PRN PO 04/08/17 10:45 05/08/17 10:44 04/10/17 20:37 100 MG Calcitriol (Rocaltrol Cap) 4 mcg QAM PO 04/11/17 08:00 05/11/17 07:59 Future hold 05/05/17 07:44 4 MCG Potassium/ Phosphorus/Sodium (Phospha 250 Neutral 155-852-130 Mg) 2 tab QID PO 04/10/17 17:00 05/10/17 16:59 05/05/17 11:56 2 TAB Ergocalciferol (Vitamin D Cap) 50,000 interunit DAILY PO 04/24/17 09:00 05/24/17 08:59 Future hold 05/05/17 07:43 50,000 INTERUNIT Magnesium Oxide (Mag-Ox Tab) 400 mg BID PO 04/26/17 09:00 05/26/17 08:59 05/05/17 07:43 400 MG Calcium Gluconate 20198 mg/Sodium Chloride 1,100 ml @ 220 mls/hr Q5H IV 05/04/17 09:00 06/03/17 08:59 05/05/17 11:55 220 MLS/HR Impression (1) Hypocalcemia (2) Prostate cancer (3) Hypertension Mr. 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 He developed severe hypocalcemia following Denosumab infusion. Renal function is normal. 25OH D deficiency documented on presentation is being treated with Ergocalciferol 81258 IU. Calcitriol is also being provided. The patient is taking PO calcium in the form of TUMs and Oscal. Aggressive replacement with PO and IV calcium continues. The patient has had associated hypomagnesemia. He is tolerating oral magnesium replacement. Recommendations -- Serum calcium 10 -- continue Ca Gluconate infusion at 2 g / hr IV -- Continue Mg Oxide 400 mg BID -- Continue Calcitriol 4 mcg daily, OsCal 2500 QID, TUMS 2 grams TID -- Monitor serum calcium daily -- Ambulate
--- NOTE | 2017-05-05 14:46 | Progress Note ---
Subjective Date of Service: May 05, 2017. Subjective Pt evaluation today including: conversation w/ patient, physical exam, lab review, review of inpatient medication list Pain: no pain PO Intake: adequate Voiding: bey catheter in place Ca is up today at 10 ambulating well, no issues Problem List Medical Problems: (1) Dehydration Status: Acute (2) Failure to thrive Status: Acute (3) Hypomagnesemia Status: Acute (4) UTI (urinary tract infection) Status: Acute (5) Vomiting Status: Acute Review of Systems All Other Systems: Reviewed and Negative Medications Current Inpatient Medications Medications (Trade) Dose Ordered Sig/Jonathan Route Start Time Stop Time Status Last Admin Dose Admin Acetaminophen (Tylenol Tab) 650 mg Q4H PRN PO 03/15/17 14:15 05/10/17 14:14 Tamsulosin HCl (Flomax Cap) 0.8 mg HS PO 03/15/17 21:00 05/10/17 20:59 05/04/17 21:05 0.8 MG Miscellaneous Information (Order Awaiting Action) 1 ea QS N/A 03/15/17 16:00 05/10/17 15:59 Pantoprazole Sodium (Protonix Tab) 40 mg QAM PO 03/16/17 09:00 05/10/17 08:59 05/05/17 07:43 40 MG Ranitidine HCl (zANTac TAB) 300 mg HS PO 03/15/17 21:00 05/10/17 20:59 05/04/17 21:03 300 MG Polyethylene (Miralax Powder Packet) 17 gm DAILY PRN PO 03/15/17 15:00 05/10/17 14:59 Docusate Sodium (coLACE CAP) 100 mg BID PO 03/15/17 21:00 05/10/17 20:59 05/05/17 07:43 100 MG Bisacodyl (Dulcolax Supp) 10 mg DAILY PRN [place] 03/15/17 15:00 05/10/17 14:59 Calcium Carbonate (Tums Chew Tab) 2,000 mg QID PO 03/16/17 17:00 05/10/17 16:59 Future hold 05/05/17 11:56 2,000 MG Calcium Carbonate (oS-Randy 500 TAB) 1,250 mg QID PO 03/18/17 09:00 05/10/17 08:59 Future hold 05/05/17 11:55 1,250 MG Miscellaneous (Tap Water Enema) 1 ea Q2D PRN [place] 03/18/17 13:30 05/10/17 13:29 Heparin Sodium (Porcine) (Heparin 10 Unit/ ml 5 ml Flush) 5 ml PRN PRN FLUSH 03/18/17 15:30 05/10/17 15:29 05/04/17 05:43 5 ML Benzonatate (Tessalon Perles Cap) 100 mg TID PRN PO 04/08/17 10:45 05/08/17 10:44 04/10/17 20:37 100 MG Calcitriol (Rocaltrol Cap) 4 mcg QAM PO 04/11/17 08:00 05/11/17 07:59 Future hold 05/05/17 07:44 4 MCG Potassium/ Phosphorus/Sodium (Phospha 250 Neutral 155-852-130 Mg) 2 tab QID PO 04/10/17 17:00 05/10/17 16:59 05/05/17 11:56 2 TAB Ergocalciferol (Vitamin D Cap) 50,000 interunit DAILY PO 04/24/17 09:00 05/24/17 08:59 Future hold 05/05/17 07:43 50,000 INTERUNIT Magnesium Oxide (Mag-Ox Tab) 400 mg BID PO 04/26/17 09:00 05/26/17 08:59 05/05/17 07:43 400 MG Calcium Gluconate 22091 mg/Sodium Chloride 1,100 ml @ 220 mls/hr Q5H IV 05/04/17 09:00 06/03/17 08:59 05/05/17 11:55 220 MLS/HR Objective Vital Signs Date Time Temp Pulse Resp B/P (MAP) Pulse Ox O2 Delivery O2 Flow Rate FiO2 05/05/17 12:00 Room Air 05/05/17 11:44 36.7 79 18 129/68 (88) 96 Room Air 05/05/17 07:45 Room Air 05/05/17 07:14 36.5 74 18 128/59 (82) 94 Room Air 05/05/17 04:16 36.8 74 19 114/50 (71) 96 Room Air 05/05/17 04:00 Room Air 3/24/18 00:01 36.3 87 19 131/68 (89) 97 Room Air 05/05/17 00:00 Room Air 05/04/17 20:11 37.1 89 20 135/56 (82) 97 Room Air 05/04/17 20:03 95 Room Air 05/04/17 16:03 95 Room Air Physical Exam General Appearance: WD/WN, no apparent distress Eyes: normal inspection, EOMI, sclerae normal ENT: normal ENT inspection, hearing grossly normal, pharynx normal Neck: supple, no adenopathy, no JVD, trachea midline Respiratory/Chest: chest non-tender, lungs clear, normal breath sounds, no respiratory distress, no accessory muscle use Cardiovascular: regular rate, rhythm, no edema, no gallop, no JVD, no murmur Abdomen: normal bowel sounds, non tender, soft, no organomegaly Neurologic/Psychiatric: abstract manager II-XII nml as tested, no motor/sensory deficits, alert, normal mood/affect, oriented x 3 Laboratory Results Last 24 Hours Test 05/05/17 05:15 Sodium Level 141 mmol/L Potassium Level 4.5 mmol/L Chloride Level 109 mmol/L Carbon Dioxide Level 24 mmol/L Anion Gap 8.0 mmol/L Blood Urea Nitrogen 18 mg/dl Creatinine 1.15 mg/dl Est Creatinine Clear Calc Drug Dose 42.3 ml/min Estimated GFR () 67.8 Estimated GFR (Non- 58.5 BUN/Creatinine Ratio 15.8 Random Glucose 85 mg/dl Calcium Level 10.0 mg/dl Phosphorus Level 2.9 mg/dl Magnesium Level 1.8 mg/dl Assessment and Plan 81 year old man with a history of prostate cancer and osteoblastic mets admitted because of severe hypocalcemia associated with with fatigue and found to have severe hypocalcemia secondary to his Denosumab (03/02/2017) Hypocalcemia calcium up to 10.0 this AM after resuming calcium drip will defer further treatment to nephrology -- continue IV calcium, tried to d/c and calcium dropped, back on 2gm/hr for the weekend -- discontinue hydrochlorothiazide as blood pressure has been relatively soft -- Continue Calcitriol 4 mcg daily -- Continue OsCal 2500 QID -- Continue TUMS 2 grams TID -- Continue Ergocalciferol 50,000 units daily x 12 doses completed per report: hypocalcemia related to Denosumab. Continued [facility] stay due to: multiple IV medications needed Discharge planning: uncertain
[2017-05-05] MEDS: BENZONATATE 100MG CAP PO PRN (21:41)
[2017-05-05] MEDS: TAMSULOSIN HCL 0.4 MG CAP PO SCH (21:42)
[2017-05-05] MEDS: RANITIDINE HCL 150 MG TAB PO SCH (21:43)
[2017-05-06] MEDS: CALCIUM GLUCONATE IV SCH ×5 (03:10→21:54)
[2017-05-06] MEDS: SODIUM CHLORIDE 0.9% IV SCH ×5 (03:10→21:54)
[2017-05-06 04:19] VITALS: BP 125/56; PULSE 75; TEMP 36.7; O2SAT 95
[2017-05-06 05:23] VITALS: BP 129/62; PULSE 77; TEMP 36.9; O2SAT 94
[2017-05-06] MEDS: CALCIUM CARBONATE 1250MG TAB PO SCH ×4 (07:48→21:52)
[2017-05-06] MEDS: DOCUSATE SODIUM 100 MG CAP PO SCH ×2 (07:48→21:53)
[2017-05-06] MEDS: ERGOCALCIFEROL 50,000 INTER.UNIT CAP PO SCH (07:48)
[2017-05-06] MEDS: PANTOprazole SOD 40 MG TAB PO SCH (07:48)
[2017-05-06] MEDS: CALCIUM CARBONATE 500 MG CHEWABLE PO SCH ×4 (07:48→21:51)
[2017-05-06] MEDS: POT PHOSPHATE MONOBASIC W/ SOD TAB PO SCH ×4 (07:48→21:51)
[2017-05-06] MEDS: MAGNESIUM OXIDE 400 MG TAB PO SCH ×2 (07:48→21:52)
[2017-05-06] MEDS: CALCITRIOL 0.25 MCG CAP PO SCH (07:49)
[2017-05-06 10:37] LABS: CALCIUM 10.3 mg/dl (8.5-10.1); CREATININE 1.1 mg/dl (0.60-1.40); POTASSIUM 4.4 mmol/L (3.5-5.1)
[2017-05-06 11:40] VITALS: BP 112/62; PULSE 75; TEMP 36.7; O2SAT 94
--- NOTE | 2017-05-06 12:27 | Progress Note ---
Subjective Date of Service: May 06, 2017. Subjective Pt evaluation today including: conversation w/ patient, physical exam, lab review, conversation w/ product marketing consultant, review of inpatient medication list Pain: no pain PO Intake: adequate Voiding: bey catheter in place patient ambulating a lot, eating well, no dyspnea Ca is 10.3, corrected closer to [address] Byrne, keep Calcium at 2gm/hr Problem List Medical Problems: (1) Dehydration Status: Acute (2) Failure to thrive Status: Acute (3) Hypomagnesemia Status: Acute (4) UTI (urinary tract infection) Status: Acute (5) Vomiting Status: Acute Review of Systems All Other Systems: Reviewed and Negative Medications Current Inpatient Medications Medications (Trade) Dose Ordered Sig/Jonathan Route Start Time Stop Time Status Last Admin Dose Admin Acetaminophen (Tylenol Tab) 650 mg Q4H PRN PO 03/15/17 14:15 05/10/17 14:14 Tamsulosin HCl (Flomax Cap) 0.8 mg HS PO 03/15/17 21:00 05/10/17 20:59 05/05/17 21:42 0.8 MG Miscellaneous Information (Order Awaiting Action) 1 ea QS N/A 03/15/17 16:00 05/10/17 15:59 Pantoprazole Sodium (Protonix Tab) 40 mg QAM PO 03/16/17 09:00 05/10/17 08:59 05/06/17 07:48 40 MG Ranitidine HCl (zANTac TAB) 300 mg HS PO 03/15/17 21:00 05/10/17 20:59 05/05/17 21:43 300 MG Polyethylene (Miralax Powder Packet) 17 gm DAILY PRN PO 03/15/17 15:00 05/10/17 14:59 Docusate Sodium (coLACE CAP) 100 mg BID PO 03/15/17 21:00 05/10/17 20:59 05/06/17 07:48 100 MG Bisacodyl (Dulcolax Supp) 10 mg DAILY PRN [place] 03/15/17 15:00 05/10/17 14:59 Calcium Carbonate (Tums Chew Tab) 2,000 mg QID PO 03/16/17 17:00 05/10/17 16:59 Future hold 05/06/17 07:48 2,000 MG Calcium Carbonate (oS-Randy 500 TAB) 1,250 mg QID PO 03/18/17 09:00 05/10/17 08:59 Future hold 05/06/17 07:48 1,250 MG Miscellaneous (Tap Water Enema) 1 ea Q2D PRN [place] 03/18/17 13:30 05/10/17 13:29 Heparin Sodium (Porcine) (Heparin 10 Unit/ ml 5 ml Flush) 5 ml PRN PRN FLUSH 03/18/17 15:30 05/10/17 15:29 05/04/17 05:43 5 ML Benzonatate (Tessalon Perles Cap) 100 mg TID PRN PO 04/08/17 10:45 05/08/17 10:44 04/10/17 20:37 100 MG Calcitriol (Rocaltrol Cap) 4 mcg QAM PO 04/11/17 08:00 05/11/17 07:59 Future hold 05/06/17 07:49 4 MCG Potassium/ Phosphorus/Sodium (Phospha 250 Neutral 155-852-130 Mg) 2 tab QID PO 04/10/17 17:00 05/10/17 16:59 05/06/17 07:48 2 TAB Ergocalciferol (Vitamin D Cap) 50,000 interunit DAILY PO 04/24/17 09:00 05/24/17 08:59 Future hold 05/06/17 07:48 50,000 INTERUNIT Magnesium Oxide (Mag-Ox Tab) 400 mg BID PO 04/26/17 09:00 05/26/17 08:59 05/06/17 07:48 400 MG Calcium Gluconate 90876 mg/Sodium Chloride 1,100 ml @ 220 mls/hr Q5H IV 05/04/17 09:00 06/03/17 08:59 05/06/17 07:48 220 MLS/HR Objective Vital Signs Date Time Temp Pulse Resp B/P (MAP) Pulse Ox O2 Delivery O2 Flow Rate FiO2 05/06/17 11:44 Room Air 05/06/17 11:40 36.7 75 18 112/62 (79) 94 Room Air 05/06/17 07:45 Room Air 05/06/17 05:23 36.9 77 20 129/62 (84) 94 Room Air 05/06/17 04:19 36.7 75 18 125/56 (79) 95 Room Air 05/06/17 04:05 Room Air 05/06/17 00:05 Room Air 05/05/17 23:41 36.7 78 18 131/78 (95) 93 Room Air 05/05/17 20:05 Room Air 05/05/17 19:39 36.6 96 20 136/66 (89) 96 Room Air 05/05/17 16:19 Room Air 05/05/17 14:51 37.1 62 18 146/75 (98) 96 Room Air Physical Exam General Appearance: WD/WN, no apparent distress Eyes: normal inspection, EOMI, sclerae normal Respiratory/Chest: chest non-tender, lungs clear, normal breath sounds, no respiratory distress, no accessory muscle use Cardiovascular: regular rate, rhythm, no edema, no gallop, no JVD, no murmur Abdomen: normal bowel sounds, non tender, soft, no organomegaly Extremities: normal range of motion, non-tender, normal inspection, no pedal edema, no calf tenderness, pelvis stable Neurologic/Psychiatric: 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 card 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-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 nml as tested, no motor/sensory deficits, alert, normal mood/affect, oriented x 3 Skin: normal color, warm/dry, no rash Laboratory Results Last 24 Hours Test 05/06/17 09:42 Sodium Level 140 mmol/L Potassium Level 4.4 mmol/L Chloride Level 108 mmol/L Carbon Dioxide Level 22 mmol/L Anion Gap 10.0 mmol/L Blood Urea Nitrogen 19 mg/dl Creatinine 1.10 mg/dl Est Creatinine Clear Calc Drug Dose 44.3 ml/min Estimated GFR () 71.6 Estimated GFR (Non- 61.8 BUN/Creatinine Ratio 17.0 Random Glucose 93 mg/dl Calcium Level 10.3 mg/dl Assessment and Plan 81 year old man with a history of prostate cancer and osteoblastic mets admitted because of severe hypocalcemia associated with with fatigue and found to have severe hypocalcemia secondary to his Denosumab (03/02/2017) Hypocalcemia calcium up to 10.3 this AM will defer further treatment to nephrology -- continue IV calcium, tried to d/c and calcium dropped, back on 2gm/hr for the weekend, any plans to decrease or d/c calcium drip will be per nephrology -- discontinue hydrochlorothiazide as blood pressure has been relatively soft -- Continue Calcitriol 4 mcg daily -- Continue OsCal 2500 QID -- Continue TUMS 2 grams TID -- Continue Ergocalciferol 50,000 units daily x 12 doses completed per report: hypocalcemia related to Denosumab. Continued [facility] stay due to: multiple IV medications needed Discharge planning: uncertain
--- NOTE | 2017-05-06 12:40 | Nephrology Progress Note ---
Nephrology Progress Note Date of Service May 06, 2017. Chief Complaint Follow-up for hypocalcemia Subjective Bennett was seen and examined in his room this morning. She has been otherwise doing well, denies any symptom. Blood pressure stable. Electrolyte acceptable. Calcium improved to 10.3 Review of Systems A complete review of systems was performed. Pertinent positives are noted above. All other systems are negative. Vital Signs Last 8 Hrs Date Time Temp Pulse Resp B/P (MAP) Pulse Ox O2 Delivery O2 Flow Rate FiO2 05/06/17 11:44 Room Air 05/06/17 11:40 36.7 75 18 112/62 (79) 94 Room Air 05/06/17 07:45 Room Air 05/06/17 05:23 36.9 77 20 129/62 (84) 94 Room Air Last Recorded Weight Weight (Kilograms): 66.300 Physical Exam GENERAL: Elderly male, AAA x 3, pleasant, healthy-appearing, not in any distress. NECK: Supple, no JVD. RESPIRATORY: Normal breathing efforts, no accessory muscle use, clear to auscultation bilaterally, no wheezes or rales. CARDIOVASCULAR: S1, S2 normal, rate rhythm regular. EXTREMITY: No lower extremity edema NEURO: speech fluent. 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 05/06/17 09:42 Test 05/06/17 09:42 Anion Gap 10.0 mmol/L (3-11) Est Creatinine Clear Calc Drug Dose 44.3 ml/min Estimated GFR () 71.6 Estimated GFR (Non- 61.8 BUN/Creatinine Ratio 17.0 (10-20) Calcium Level 10.3 mg/dl (8.5-10.1) Allergies Coded Allergies: No Known Allergies (Unverified , 03/15/17) Medications Current Inpatient Medications Medications (Trade) Dose Ordered Sig/Jonathan Route Start Time Stop Time Status Last Admin Dose Admin Acetaminophen (Tylenol Tab) 650 mg Q4H PRN PO 03/15/17 14:15 05/10/17 14:14 Tamsulosin HCl (Flomax Cap) 0.8 mg HS PO 03/15/17 21:00 05/10/17 20:59 05/05/17 21:42 0.8 MG Miscellaneous Information (Order Awaiting Action) 1 ea QS N/A 03/15/17 16:00 05/10/17 15:59 Pantoprazole Sodium (Protonix Tab) 40 mg QAM PO 03/16/17 09:00 05/10/17 08:59 05/06/17 07:48 40 MG Ranitidine HCl (zANTac TAB) 300 mg HS PO 03/15/17 21:00 05/10/17 20:59 05/05/17 21:43 300 MG Polyethylene (Miralax Powder Packet) 17 gm DAILY PRN PO 03/15/17 15:00 05/10/17 14:59 Docusate Sodium (coLACE CAP) 100 mg BID PO 03/15/17 21:00 05/10/17 20:59 05/06/17 07:48 100 MG Bisacodyl (Dulcolax Supp) 10 mg DAILY PRN [place] 03/15/17 15:00 05/10/17 14:59 Calcium Carbonate (Tums Chew Tab) 2,000 mg QID PO 03/16/17 17:00 05/10/17 16:59 Future hold 05/06/17 07:48 2,000 MG Calcium Carbonate (oS-Randy 500 TAB) 1,250 mg QID PO 03/18/17 09:00 05/10/17 08:59 Future hold 05/06/17 07:48 1,250 MG Miscellaneous (Tap Water Enema) 1 ea Q2D PRN [place] 03/18/17 13:30 05/10/17 13:29 Heparin Sodium (Porcine) (Heparin 10 Unit/ ml 5 ml Flush) 5 ml PRN PRN FLUSH 03/18/17 15:30 05/10/17 15:29 05/04/17 05:43 5 ML Benzonatate (Tessalon Perles Cap) 100 mg TID PRN PO 04/08/17 10:45 05/08/17 10:44 04/10/17 20:37 100 MG Calcitriol (Rocaltrol Cap) 4 mcg QAM PO 04/11/17 08:00 05/11/17 07:59 Future hold 05/06/17 07:49 4 MCG Potassium/ Phosphorus/Sodium (Phospha 250 Neutral 155-852-130 Mg) 2 tab QID PO 04/10/17 17:00 05/10/17 16:59 05/06/17 07:48 2 TAB Ergocalciferol (Vitamin D Cap) 50,000 interunit DAILY PO 04/24/17 09:00 05/24/17 08:59 Future hold 05/06/17 07:48 50,000 INTERUNIT Magnesium Oxide (Mag-Ox Tab) 400 mg BID PO 04/26/17 09:00 05/26/17 08:59 05/06/17 07:48 400 MG Calcium Gluconate 89695 mg/Sodium Chloride 1,100 ml @ 220 mls/hr Q5H IV 05/04/17 09:00 06/03/17 08:59 05/06/17 07:48 220 MLS/HR Impression (1) Hypocalcemia (2) Prostate cancer (3) Hypertension Mr. 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 He developed severe hypocalcemia following Denosumab infusion. Renal function is normal. 25OH D deficiency documented on presentation is being treated with Ergocalciferol 58184 IU. Calcitriol is also being provided. The patient is taking PO calcium in the form of TUMs and Oscal. Aggressive replacement with PO and IV calcium continues. The patient has had associated hypomagnesemia. He is tolerating oral magnesium replacement. Recommendations -- Serum calcium 10.3 -- continue Ca Gluconate infusion at 2 g / hr IV -- Continue Mg Oxide 400 mg BID -- Continue Calcitriol 4 mcg daily, OsCal 2500 QID, TUMS 2 grams TID -- Monitor serum calcium daily -- Ambulate
[2017-05-06 15:25] VITALS: BP 114/51; PULSE 76; TEMP 36.7; O2SAT 93
[2017-05-06 19:03] VITALS: BP 152/78; PULSE 83; TEMP 36.8; O2SAT 97
[2017-05-06] MEDS: TAMSULOSIN HCL 0.4 MG CAP PO SCH (21:51)
[2017-05-06] MEDS: RANITIDINE HCL 150 MG TAB PO SCH (21:53)
[2017-05-06 23:28] VITALS: BP 150/55; PULSE 78; TEMP 36.7; O2SAT 97
[2017-05-07] MEDS: SODIUM CHLORIDE 0.9% IV SCH ×4 (04:09→18:05)
[2017-05-07] MEDS: CALCIUM GLUCONATE IV SCH ×4 (04:09→18:05)
[2017-05-07 04:16] VITALS: BP 116/54; PULSE 79; TEMP 36.3; O2SAT 95
[2017-05-07 05:58] LABS: CALCIUM 10.3 mg/dl (8.5-10.1); CREATININE 1.1 mg/dl (0.60-1.40); POTASSIUM 4.6 mmol/L (3.5-5.1)
[2017-05-07 07:02] VITALS: BP 124/64; PULSE 76; TEMP 36.8; O2SAT 94
[2017-05-07] MEDS: CALCIUM CARBONATE 500 MG CHEWABLE PO SCH ×4 (08:13→21:26)
[2017-05-07] MEDS: DOCUSATE SODIUM 100 MG CAP PO SCH ×2 (08:13→21:26)
[2017-05-07] MEDS: PANTOprazole SOD 40 MG TAB PO SCH (08:13)
[2017-05-07] MEDS: POT PHOSPHATE MONOBASIC W/ SOD TAB PO SCH ×4 (08:13→21:27)
[2017-05-07] MEDS: CALCIUM CARBONATE 1250MG TAB PO SCH ×4 (08:13→21:24)
[2017-05-07] MEDS: MAGNESIUM OXIDE 400 MG TAB PO SCH ×2 (08:13→21:28)
[2017-05-07] MEDS: ERGOCALCIFEROL 50,000 INTER.UNIT CAP PO SCH (08:13)
[2017-05-07] MEDS: CALCITRIOL 0.25 MCG CAP PO SCH (08:14)
[2017-05-07] MEDS ORDERED: NURSING VERBAL MED ORDER ONE (10:30)
[2017-05-07] MEDS ORDERED: ALTEPLASE, RECOMBINANT 1 MG/ML 2 ML VIAL IV ONE (10:45)
[2017-05-07 11:46] VITALS: BP 117/65; PULSE 73; TEMP 36.8; O2SAT 97
--- NOTE | 2017-05-07 12:17 | Nephrology Progress Note ---
Nephrology Progress Note Date of Service May 07, 2017. Chief Complaint Follow-up for hypocalcemia Subjective Bennett was seen and examined in his room this morning. She has been otherwise doing well, denies any symptom. Blood pressure stable. Electrolyte acceptable. Calcium improved to 10.3 Review of Systems A complete review of systems was performed. Pertinent positives are noted above. All other systems are negative. Vital Signs Last 8 Hrs Date Time Temp Pulse Resp B/P (MAP) Pulse Ox O2 Delivery O2 Flow Rate FiO2 05/07/17 07:02 36.8 76 18 124/64 (84) 94 Room Air 05/07/17 04:16 36.3 79 18 116/54 (74) 95 Room Air 05/07/17 04:05 Room Air Last Recorded Weight Weight (Kilograms): 66.300 Physical Exam GENERAL: Elderly male , AAA x 3, pleasant, healthy-appearing, not in any distress. NECK: Supple, no JVD. RESPIRATORY: Normal breathing efforts, no accessory muscle use, clear to auscultation bilaterally, no wheezes or rales. CARDIOVASCULAR: S1, S2 normal, rate rhythm regular. EXTREMITY: No lower extremity edema NEURO: speech fluent. 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 05/06/17 09:42 05/07/17 05:20 Test 05/06/17 09:42 05/07/17 05:20 Anion Gap 10.0 mmol/L (3-11) 7.0 mmol/L (3-11) Est Creatinine Clear Calc Drug Dose 44.3 ml/min 44.3 ml/min Estimated GFR () 71.6 71.6 Estimated GFR (Non- 61.8 61.8 BUN/Creatinine Ratio 17.0 (10-20) 17.8 (10-20) Calcium Level 10.3 mg/dl (8.5-10.1) 10.3 mg/dl (8.5-10.1) Allergies Coded Allergies: No Known Allergies (Unverified , 03/15/17) Medications Current Inpatient Medications Medications (Trade) Dose Ordered Sig/Jonathan Route Start Time Stop Time Status Last Admin Dose Admin Acetaminophen (Tylenol Tab) 650 mg Q4H PRN PO 03/15/17 14:15 05/10/17 14:14 Tamsulosin HCl (Flomax Cap) 0.8 mg HS PO 03/15/17 21:00 05/10/17 20:59 05/06/17 21:51 0.8 MG Miscellaneous Information (Order Awaiting Action) 1 ea QS N/A 03/15/17 16:00 05/10/17 15:59 Pantoprazole Sodium (Protonix Tab) 40 mg QAM PO 03/16/17 09:00 05/10/17 08:59 05/07/17 08:13 40 MG Ranitidine HCl (zANTac TAB) 300 mg HS PO 03/15/17 21:00 05/10/17 20:59 05/06/17 21:53 300 MG Polyethylene (Miralax Powder Packet) 17 gm DAILY PRN PO 03/15/17 15:00 05/10/17 14:59 Docusate Sodium (coLACE CAP) 100 mg BID PO 03/15/17 21:00 05/10/17 20:59 05/07/17 08:13 100 MG Bisacodyl (Dulcolax Supp) 10 mg DAILY PRN [place] 03/15/17 15:00 05/10/17 14:59 Calcium Carbonate (Tums Chew Tab) 2,000 mg QID PO 03/16/17 17:00 05/10/17 16:59 Future hold 05/07/17 08:13 2,000 MG Calcium Carbonate (oS-Randy 500 TAB) 1,250 mg QID PO 03/18/17 09:00 05/10/17 08:59 Future hold 05/07/17 08:13 1,250 MG Miscellaneous (Tap Water Enema) 1 ea Q2D PRN [place] 03/18/17 13:30 05/10/17 13:29 Heparin Sodium (Porcine) (Heparin 10 Unit/ ml 5 ml Flush) 5 ml PRN PRN FLUSH 03/18/17 15:30 05/10/17 15:29 05/04/17 05:43 5 ML Benzonatate (Tessalon Perles Cap) 100 mg TID PRN PO 04/08/17 10:45 05/08/17 10:44 04/10/17 20:37 100 MG Calcitriol (Rocaltrol Cap) 4 mcg QAM PO 04/11/17 08:00 05/11/17 07:59 Future hold 05/07/17 08:14 4 MCG Potassium/ Phosphorus/Sodium (Phospha 250 Neutral 155-852-130 Mg) 2 tab QID PO 04/10/17 17:00 05/10/17 16:59 05/07/17 08:13 2 TAB Ergocalciferol (Vitamin D Cap) 50,000 interunit DAILY PO 04/24/17 09:00 05/24/17 08:59 Future hold 05/07/17 08:13 50,000 INTERUNIT Magnesium Oxide (Mag-Ox Tab) 400 mg BID PO 04/26/17 09:00 05/26/17 08:59 05/07/17 08:13 400 MG Calcium Gluconate 84516 mg/Sodium Chloride 1,100 ml @ 220 mls/hr Q5H IV 05/04/17 09:00 06/03/17 08:59 05/07/17 08:13 220 MLS/HR Impression (1) Hypocalcemia (2) Prostate cancer (3) Hypertension Mr. 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 He developed severe hypocalcemia following Denosumab infusion. Renal function is normal. 25OH D deficiency documented on presentation is being treated with Ergocalciferol 36173 IU. Calcitriol is also being provided. The patient is taking PO calcium in the form of TUMs and Oscal. Aggressive replacement with PO and IV calcium continues. The patient has had associated hypomagnesemia. He is tolerating oral magnesium replacement. Recommendations -- Serum calcium 10.3, no further increase -- continue Ca Gluconate infusion at 2 g / hr IV -- Continue Mg Oxide 400 mg BID -- Continue Calcitriol 4 mcg daily, OsCal 2500 QID, TUMS 2 grams TID -- Monitor serum calcium daily -- Ambulate
--- NOTE | 2017-05-07 15:23 | Progress Note ---
Subjective Date of Service: May 07, 2017. Subjective Pt evaluation today including: conversation w/ patient, conversation w/ family , physical exam, chart review, lab review, review of studies, conversation w/ peoplesoft financials consultant, review of inpatient medication list Up and walk while not on any infusion, generally doing good, include eating drinking good, normal bowel movement Problem List Medical Problems: (1) Dehydration Status: Acute (2) Failure to thrive Status: Acute (3) Hypomagnesemia Status: Acute (4) UTI (urinary tract infection) Status: Acute (5) Vomiting Status: Acute Review of Systems Constitutional: No fever, No chills, No sweats, No weight loss, No weakness, No fatigue, No problem reported Eyes: No worsening of vision, No eye pain, No redness, No discharge, No diplopia ENT: No hearing loss, No unusual epistaxis, No nasal symptoms, No sore throat, No tinnitus, No dental problems, No trouble swallowing Respiratory: No cough, No sputum, No wheezing, No shortness of breath, No dyspnea on exertion, No dyspnea at rest, No hemoptysis Cardiac: No chest pain, No orthopnea, No PND, No edema, No claudication, No palpitations Abdomen: No pain, No nausea, No vomiting, No diarrhea, No constipation Musculoskeletal: No joint pain, No muscle pain, No swelling, No calf pain Male : No dysuria, No urinary frequency, No incontinence, No nocturia more than once/night, No slowing stream, No hematuria Neurologic: No memory loss, No paralysis, No weakness, No numbness/tingling, No vertigo, No balance problems Psychiatric: No depression symptoms, No anhedonism, No anxiety, No insomnia, No substance abuse Heme: No abnormal bleeding/bruising, No clotting problems, No swollen lymph nodes, No night sweats Endo: No fatigue, No excessive thirst, No excessive urination Skin: No rash, No itch, No new/changing skin lesions, No color change, No bleeding Objective Vital Signs Date Time Temp Pulse Resp B/P (MAP) Pulse Ox O2 Delivery O2 Flow Rate FiO2 05/07/17 11:46 36.8 73 18 117/65 (82) 97 Room Air 05/07/17 11:35 Room Air 05/07/17 07:45 Room Air 05/07/17 07:02 36.8 76 18 124/64 (84) 94 Room Air 05/07/17 04:16 36.3 79 18 116/54 (74) 95 Room Air 05/07/17 04:05 Room Air 05/07/17 00:05 Room Air 05/07/17 00:05 Room Air 05/06/17 23:28 36.7 78 18 150/55 (86) 97 Room Air 05/06/17 20:05 Room Air 05/06/17 19:03 36.8 83 18 152/78 (102) 97 Room Air 05/06/17 16:00 Room Air 05/06/17 15:25 36.7 76 18 114/51 (72) 93 Room Air Physical Exam General Appearance: WD/WN, no apparent distress Eyes: normal inspection, PERRL, EOMI, sclerae normal ENT: normal ENT inspection, hearing grossly normal, pharynx normal Neck: supple, no adenopathy, thyroid normal, no JVD, no carotid bruits, trachea midline Respiratory/Chest: chest non-tender, lungs clear, normal breath sounds, no respiratory distress, no accessory muscle use Cardiovascular: regular rate, rhythm, no edema, no gallop, no JVD, no murmur Abdomen: normal bowel sounds, non tender, soft, no organomegaly, no pulsatile mass Extremities: normal range of motion, non-tender, normal inspection, no pedal edema, no calf tenderness, normal capillary refill, pelvis stable 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, no motor/sensory deficits, alert, normal mood/affect, oriented x 3 Skin: normal color, warm/dry, no rash Lymphatic: no adenopathy Laboratory Results Last 24 Hours Test 05/07/17 05:20 Sodium Level 141 mmol/L Potassium Level 4.6 mmol/L Chloride Level 108 mmol/L Carbon Dioxide Level 26 mmol/L Anion Gap 7.0 mmol/L Blood Urea Nitrogen 20 mg/dl Creatinine 1.10 mg/dl Est Creatinine Clear Calc Drug Dose 44.3 ml/min Estimated GFR () 71.6 Estimated GFR (Non- 61.8 BUN/Creatinine Ratio 17.8 Random Glucose 86 mg/dl Calcium Level 10.3 mg/dl Assessment and Plan 81 year old man with a history of prostate cancer and osteoblastic mets admitted because of severe hypocalcemia associated with with fatigue and found to have severe hypocalcemia secondary to his Denosumab (03/02/2017) has been on IV calcium and oral calcium therapy, still unable to increase his levels. Today's 10.3, Team Truck Driver on the case , continue Ca Gluconate infusion at 2 g / hr IV, Continue Mg Oxide 400 mg BID, Continue Calcitriol 4 mcg daily, OsCal 2500 QID, TUMS 2 grams TID, Monitor serum calcium daily closely monitoring lytes and replace as needed, cont tele for better monitoring of arrhythmia events during the calcium infusion per report: hypocalcemia related to Denosumab. Median time to correction ~ 21 days Continued [facility] stay due to: multiple IV medications needed Discharge planning: uncertain
[2017-05-07 15:42] VITALS: BP 102/49; PULSE 71; TEMP 36.6; O2SAT 94
[2017-05-07 19:58] VITALS: BP 121/65; PULSE 80; TEMP 37; O2SAT 96
[2017-05-07] MEDS: RANITIDINE HCL 150 MG TAB PO SCH (21:26)
[2017-05-07] MEDS: TAMSULOSIN HCL 0.4 MG CAP PO SCH (21:26)
[2017-05-08] VITALS (10 sets, daily range): BP systolic 108–137; BP diastolic 51–74; PULSE 65–85; TEMP 36.5–36.7; O2SAT 91–97
[2017-05-08] MEDS: SODIUM CHLORIDE 0.9% IV SCH ×2 (00:04→04:52)
[2017-05-08] MEDS: CALCIUM GLUCONATE IV SCH ×2 (00:04→04:52)
[2017-05-08 06:09] LABS: CREATININE 1.07 mg/dl (0.60-1.40); POTASSIUM 4.5 mmol/L (3.5-5.1)
[2017-05-08] MEDS: DOCUSATE SODIUM 100 MG CAP PO SCH ×2 (07:39→20:41)
[2017-05-08] MEDS: CALCIUM CARBONATE 500 MG CHEWABLE PO SCH ×4 (07:39→20:39)
[2017-05-08] MEDS: MAGNESIUM OXIDE 400 MG TAB PO SCH ×2 (07:39→20:39)
[2017-05-08] MEDS: CALCIUM CARBONATE 1250MG TAB PO SCH ×4 (07:40→20:38)
[2017-05-08] MEDS: POT PHOSPHATE MONOBASIC W/ SOD TAB PO SCH ×4 (07:40→20:38)
[2017-05-08] MEDS: PANTOprazole SOD 40 MG TAB PO SCH (07:40)
[2017-05-08] MEDS: CALCITRIOL 0.25 MCG CAP PO SCH (07:41)
[2017-05-08] MEDS: ERGOCALCIFEROL 50,000 INTER.UNIT CAP PO SCH (07:42)
--- NOTE | 2017-05-08 10:03 | Nephrology Progress Note ---
Nephrology Progress Note Date of Service May 08, 2017. Chief Complaint Follow-up for hypocalcemia Subjective Bennett was seen and examined in his room this morning. Overall he feels about the same, denies any symptom has been active walking around the hallways, eating well. Calcium improved further. Review of Systems A complete review of systems was performed. Pertinent positives are noted above. All other systems are negative. Vital Signs Last 8 Hrs Date Time Temp Pulse Resp B/P (MAP) Pulse Ox O2 Delivery O2 Flow Rate FiO2 05/08/17 08:00 Room Air 05/08/17 07:27 36.6 85 16 134/73 (93) 97 Room Air 05/08/17 04:00 36.7 82 18 137/68 (91) 96 Room Air 05/08/17 04:00 Room Air Last Recorded Weight Weight (Kilograms): 66.400 Physical Exam GENERAL: Elderly male , AAA x 3, pleasant, healthy-appearing, not in any distress. NECK: Supple, no JVD. RESPIRATORY: Normal breathing efforts, no accessory muscle use, clear to auscultation bilaterally, no wheezes or rales. CARDIOVASCULAR: S1, S2 normal, rate rhythm regular. EXTREMITY: No lower extremity edema NEURO: speech fluent. 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 05/08/17 05:05 Test 05/08/17 05:05 Anion Gap 8.0 mmol/L (3-11) Est Creatinine Clear Calc Drug Dose 45.5 ml/min Estimated GFR () 74.0 Estimated GFR (Non- 63.9 BUN/Creatinine Ratio 18.9 (10-20) Calcium Level 11.0 mg/dl (8.5-10.1) Chemistry Specimen Hemolysis Allergies Coded Allergies: No Known Allergies (Unverified , 03/15/17) Medications Current Inpatient Medications Medications (Trade) Dose Ordered Sig/Jonathan Route Start Time Stop Time Status Last Admin Dose Admin Acetaminophen (Tylenol Tab) 650 mg Q4H PRN PO 03/15/17 14:15 05/10/17 14:14 Tamsulosin HCl (Flomax Cap) 0.8 mg HS PO 03/15/17 21:00 05/10/17 20:59 05/07/17 21:26 0.8 MG Miscellaneous Information (Order Awaiting Action) 1 ea QS N/A 03/15/17 16:00 05/10/17 15:59 Pantoprazole Sodium (Protonix Tab) 40 mg QAM PO 03/16/17 09:00 05/10/17 08:59 05/08/17 07:40 40 MG Ranitidine HCl (zANTac TAB) 300 mg HS PO 03/15/17 21:00 05/10/17 20:59 05/07/17 21:26 300 MG Polyethylene (Miralax Powder Packet) 17 gm DAILY PRN PO 03/15/17 15:00 05/10/17 14:59 Docusate Sodium (coLACE CAP) 100 mg BID PO 03/15/17 21:00 05/10/17 20:59 05/08/17 07:39 100 MG Bisacodyl (Dulcolax Supp) 10 mg DAILY PRN [place] 03/15/17 15:00 05/10/17 14:59 Calcium Carbonate (Tums Chew Tab) 2,000 mg QID PO 03/16/17 17:00 05/10/17 16:59 Future hold 05/08/17 07:39 2,000 MG Calcium Carbonate (oS-Randy 500 TAB) 1,250 mg QID PO 03/18/17 09:00 05/10/17 08:59 Future hold 05/08/17 07:40 1,250 MG Miscellaneous (Tap Water Enema) 1 ea Q2D PRN [place] 03/18/17 13:30 05/10/17 13:29 Heparin Sodium (Porcine) (Heparin 10 Unit/ ml 5 ml Flush) 5 ml PRN PRN FLUSH 03/18/17 15:30 05/10/17 15:29 05/08/17 08:25 5 ML Benzonatate (Tessalon Perles Cap) 100 mg TID PRN PO 04/08/17 10:45 05/08/17 10:44 04/10/17 20:37 100 MG Calcitriol (Rocaltrol Cap) 4 mcg QAM PO 04/11/17 08:00 05/11/17 07:59 Future hold 05/08/17 07:41 4 MCG Potassium/ Phosphorus/Sodium (Phospha 250 Neutral 155-852-130 Mg) 2 tab QID PO 04/10/17 17:00 05/10/17 16:59 05/08/17 07:40 2 TAB Ergocalciferol (Vitamin D Cap) 50,000 interunit DAILY PO 04/24/17 09:00 05/24/17 08:59 Future hold 05/08/17 07:42 50,000 INTERUNIT Magnesium Oxide (Mag-Ox Tab) 400 mg BID PO 04/26/17 09:00 05/26/17 08:59 05/08/17 07:39 400 MG Impression (1) Hypocalcemia (2) Prostate cancer (3) Hypertension Mr. 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 He developed severe hypocalcemia following Denosumab infusion. Renal function is normal. 25OH D deficiency documented on presentation is being treated with Ergocalciferol 17531 IU. Calcitriol is also being provided. The patient is taking PO calcium in the form of TUMs and Oscal. Aggressive replacement with PO and IV calcium continues. The patient has had associated hypomagnesemia. He is tolerating oral magnesium replacement. Recommendations -- discontinue IV calcium gluconate, check calcium in afternoon -- Continue Mg Oxide 400 mg BID -- Continue Calcitriol 4 mcg daily, OsCal 2500 QID, TUMS 2 grams TID -- Monitor serum calcium daily -- Ambulate
--- NOTE | 2017-05-08 14:03 | Progress Note ---
Subjective Date of Service: May 08, 2017. Subjective Pt evaluation today including: conversation w/ patient, chart review, lab review, review of studies, conversation w/ performance improvement consultant, review of inpatient medication list Doing well, up and walk, no complaint, Problem List Medical Problems: (1) Dehydration Status: Acute (2) Failure to thrive Status: Acute (3) Hypomagnesemia Status: Acute (4) UTI (urinary tract infection) Status: Acute (5) Vomiting Status: Acute Review of Systems Constitutional: No fever, No chills, No sweats, No weight loss, No weakness, No fatigue, No problem reported Eyes: No worsening of vision, No eye pain, No redness, No discharge, No diplopia ENT: No hearing loss, No unusual epistaxis, No nasal symptoms, No sore throat, No tinnitus, No dental problems, No trouble swallowing Respiratory: No cough, No sputum, No wheezing, No shortness of breath, No dyspnea on exertion, No dyspnea at rest, No hemoptysis Cardiac: No chest pain, No orthopnea, No PND, No edema, No claudication, No palpitations Abdomen: No pain, No nausea, No vomiting, No diarrhea, No constipation Musculoskeletal: No joint pain, No muscle pain, No swelling, No calf pain Male : No dysuria, No urinary frequency, No incontinence, No nocturia more than once/night, No slowing stream, No hematuria Neurologic: No memory loss, No paralysis, No weakness, No numbness/tingling, No vertigo, No balance problems Psychiatric: No depression symptoms, No anhedonism, No anxiety, No insomnia, No substance abuse Heme: No abnormal bleeding/bruising, No clotting problems, No swollen lymph nodes, No night sweats Endo: No fatigue, No excessive thirst, No excessive urination Skin: No rash, No itch, No new/changing skin lesions, No color change, No bleeding Objective Vital Signs Date Time Temp Pulse Resp B/P (MAP) Pulse Ox O2 Delivery O2 Flow Rate FiO2 05/08/17 12:00 Room Air 05/08/17 11:24 36.7 78 16 109/51 (70) 94 Room Air 05/08/17 08:00 Room Air 05/08/17 07:27 36.6 85 16 134/73 (93) 97 Room Air 05/08/17 04:00 36.7 82 18 137/68 (91) 96 Room Air 05/08/17 04:00 Room Air 05/08/17 00:00 36.5 83 18 134/65 (88) 95 Room Air 05/07/17 23:40 Room Air 05/07/17 20:00 Room Air 05/07/17 19:58 37.0 80 18 121/65 (83) 96 Room Air 05/07/17 16:00 Room Air 05/07/17 15:42 36.6 71 18 102/49 (66) 94 Room Air Physical Exam General Appearance: WD/WN, no apparent distress, + thin Eyes: normal inspection, PERRL, EOMI, sclerae normal ENT: normal ENT inspection, hearing grossly normal, pharynx normal Neck: supple, no adenopathy, thyroid normal, no JVD, no carotid bruits, trachea midline Respiratory/Chest: chest non-tender, lungs clear, normal breath sounds, no respiratory distress, no accessory muscle use Cardiovascular: regular rate, rhythm, no edema, no gallop, no JVD, no murmur Abdomen: normal bowel sounds, non tender, soft, no organomegaly, no pulsatile mass Extremities: normal range of motion, non-tender, normal inspection, no pedal edema, no calf tenderness, normal capillary refill, pelvis stable Neurologic/Psychiatric: tile grader II-XII nml as tested, no motor/sensory deficits, alert, normal mood/affect, oriented x 3 Skin: normal color, warm/dry, no rash Lymphatic: no adenopathy Laboratory Results Last 24 Hours Test 05/08/17 05:05 05/08/17 11:52 Sodium Level 140 mmol/L Potassium Level 4.5 mmol/L Chloride Level 106 mmol/L Carbon Dioxide Level 26 mmol/L Anion Gap 8.0 mmol/L Blood Urea Nitrogen 20 mg/dl Creatinine 1.07 mg/dl Est Creatinine Clear Calc Drug Dose 45.5 ml/min Estimated GFR () 74.0 Estimated GFR (Non- 63.9 BUN/Creatinine Ratio 18.9 Random Glucose 86 mg/dl Calcium Level 11.0 mg/dl 10.2 mg/dl Chemistry Specimen Hemolysis Assessment and Plan 81 year old man with a history of prostate cancer and osteoblastic mets admitted because of severe hypocalcemia associated with with fatigue and found to have severe hypocalcemia secondary to his Denosumab (03/02/2017) severe hypocalcemia associated secondary to severe hypocalcemia severe hypocalcemia secondary to his Denosumab (03/02/2017) Has been on continue Ca Gluconate infusion at 2 g / hr IV, has been on IV calcium and oral calcium therapy, Today's was up to 11, but was down to 10.2 at noon time Program Manager Rn on the case , Continue Mg Oxide 400 mg BID, Continue Calcitriol 4 mcg daily, OsCal 2500 QID, TUMS 2 grams TID, Monitor serum calcium daily closely monitoring lytes and replace as needed, cont tele for better monitoring of arrhythmia events during the calcium infusio per report: hypocalcemia related to Denosumab. Median time to correction ~ 21 days Continued [facility] stay due to: multiple IV medications needed Discharge planning: uncertain
[2017-05-08] MEDS: TAMSULOSIN HCL 0.4 MG CAP PO SCH (20:40)
[2017-05-08] MEDS: RANITIDINE HCL 150 MG TAB PO SCH (20:41)
[2017-05-09 04:00] VITALS: O2SAT 95
[2017-05-09 04:21] VITALS: BP 114/66; PULSE 82; TEMP 36.6; O2SAT 94
[2017-05-09 07:09] LABS: CALCIUM 7.8 mg/dl (8.5-10.1); CREATININE 1.17 mg/dl (0.60-1.40); POTASSIUM 4.1 mmol/L (3.5-5.1)
[2017-05-09 07:23] VITALS: BP 115/65; PULSE 89; TEMP 36.7; O2SAT 95
[2017-05-09] MEDS: SODIUM CHLORIDE 0.9% IV SCH ×2 (08:37→18:00)
[2017-05-09] MEDS: CALCIUM GLUCONATE IV SCH ×2 (08:37→18:00)
[2017-05-09] MEDS: DOCUSATE SODIUM 100 MG CAP PO SCH ×2 (08:39→21:00)
[2017-05-09] MEDS: PANTOprazole SOD 40 MG TAB PO SCH (08:39)
[2017-05-09] MEDS: CALCIUM CARBONATE 500 MG CHEWABLE PO SCH ×4 (08:40→21:00)
[2017-05-09] MEDS: MAGNESIUM OXIDE 400 MG TAB PO SCH ×2 (08:40→21:00)
[2017-05-09] MEDS: CALCITRIOL 0.25 MCG CAP PO SCH (08:40)
[2017-05-09] MEDS: ERGOCALCIFEROL 50,000 INTER.UNIT CAP PO SCH (08:40)
[2017-05-09] MEDS: POT PHOSPHATE MONOBASIC W/ SOD TAB PO SCH ×4 (08:41→21:00)
[2017-05-09] MEDS: CALCIUM CARBONATE 1250MG TAB PO SCH ×4 (08:41→21:00)
--- NOTE | 2017-05-09 10:31 | Nephrology Progress Note ---
Nephrology Progress Note Date of Service May 09, 2017. Chief Complaint Follow-up for hypocalcemia Subjective David was seen and examined in his room this am. A bit discouraged as calcium dropped again below 8 off of IV calcium gluconate. Otherwise remained asymptomatic. Review of Systems A complete review of systems was performed. Pertinent positives are noted above. All other systems are negative. Vital Signs Last 8 Hrs Date Time Temp Pulse Resp B/P (MAP) Pulse Ox O2 Delivery O2 Flow Rate FiO2 05/09/17 07:23 36.7 89 16 115/65 (82) 95 05/09/17 04:21 36.6 82 16 114/66 (82) 94 Room Air 05/09/17 04:00 95 Room Air 05/08/17 23:59 95 Room Air 05/08/17 23:59 36.6 65 16 137/74 (95) 91 Room Air Last Recorded Weight Weight (Kilograms): 64.800 Physical Exam GENERAL: Elderly male , AAA x 3, pleasant, healthy-appearing, not in any distress. NECK: Supple, no JVD. RESPIRATORY: Normal breathing efforts, no accessory muscle use, clear to auscultation bilaterally, no wheezes or rales. CARDIOVASCULAR: S1, S2 normal, rate rhythm regular. EXTREMITY: No lower extremity edema NEURO: speech fluent. 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 05/09/17 05:50 Test 05/08/17 11:52 05/08/17 16:18 05/09/17 05:50 Calcium Level 10.2 mg/dl (8.5-10.1) 9.5 mg/dl (8.5-10.1) 7.8 mg/dl (8.5-10.1) Anion Gap 7.0 mmol/L (3-11) Est Creatinine Clear Calc Drug Dose 41.6 ml/min Estimated GFR () 66.4 Estimated GFR (Non- 57.3 BUN/Creatinine Ratio 20.1 (10-20) Allergies Coded Allergies: No Known Allergies (Unverified , 03/15/17) Medications Current Inpatient Medications Medications (Trade) Dose Ordered Sig/Jonathan Route Start Time Stop Time Status Last Admin Dose Admin Acetaminophen (Tylenol Tab) 650 mg Q4H PRN PO 03/15/17 14:15 05/10/17 14:14 Tamsulosin HCl (Flomax Cap) 0.8 mg HS PO 03/15/17 21:00 05/10/17 20:59 05/08/17 20:40 0.8 MG Miscellaneous Information (Order Awaiting Action) 1 ea QS N/A 03/15/17 16:00 05/10/17 15:59 Pantoprazole Sodium (Protonix Tab) 40 mg QAM PO 03/16/17 09:00 05/10/17 08:59 05/08/17 07:40 40 MG Ranitidine HCl (zANTac TAB) 300 mg HS PO 03/15/17 21:00 05/10/17 20:59 05/08/17 20:41 300 MG Polyethylene (Miralax Powder Packet) 17 gm DAILY PRN PO 03/15/17 15:00 05/10/17 14:59 Docusate Sodium (coLACE CAP) 100 mg BID PO 03/15/17 21:00 05/10/17 20:59 05/08/17 20:41 100 MG Bisacodyl (Dulcolax Supp) 10 mg DAILY PRN [place] 03/15/17 15:00 05/10/17 14:59 Calcium Carbonate (Tums Chew Tab) 2,000 mg QID PO 03/16/17 17:00 05/10/17 16:59 Future hold 05/08/17 20:39 2,000 MG Calcium Carbonate (oS-Randy 500 TAB) 1,250 mg QID PO 03/18/17 09:00 05/10/17 08:59 Future hold 05/08/17 20:38 1,250 MG Miscellaneous (Tap Water Enema) 1 ea Q2D PRN [place] 03/18/17 13:30 05/10/17 13:29 Heparin Sodium (Porcine) (Heparin 10 Unit/ ml 5 ml Flush) 5 ml PRN PRN FLUSH 03/18/17 15:30 05/10/17 15:29 05/09/17 06:09 5 ML Calcitriol (Rocaltrol Cap) 4 mcg QAM PO 04/11/17 08:00 05/11/17 07:59 Future hold 05/08/17 07:41 4 MCG Potassium/ Phosphorus/Sodium (Phospha 250 Neutral 155-192-130 Mg) 2 tab QID PO 04/10/17 17:00 05/10/17 16:59 05/08/17 20:38 2 TAB Ergocalciferol (Vitamin D Cap) 50,000 interunit DAILY PO 04/24/17 09:00 05/24/17 08:59 Future hold 05/08/17 07:42 50,000 INTERUNIT Magnesium Oxide (Mag-Ox Tab) 400 mg BID PO 04/26/17 09:00 05/26/17 08:59 05/08/17 20:39 400 MG Impression (1) Hypocalcemia (2) Prostate cancer (3) Hypertension Mr. 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 He developed severe hypocalcemia following Denosumab infusion. Renal function is normal. 25OH D deficiency documented on presentation is being treated with Ergocalciferol 04800 IU. Calcitriol is also being provided. The patient is taking PO calcium in the form of TUMs and Oscal. Aggressive replacement with PO and IV calcium continues. The patient has had associated hypomagnesemia. He is tolerating oral magnesium replacement. Recommendations -- resume IV calcium gluconate at 1 gram/hour -- Continue Mg Oxide 400 mg BID -- Continue Calcitriol 4 mcg daily, OsCal 2500 QID, TUMS 2 grams TID -- Monitor serum calcium daily -- Ambulate
[2017-05-09 11:17] VITALS: BP_SYST 116; BP_SYST 117; BP_SYST 119; BP_DIAS 61; BP_DIAS 62; BP_DIAS 66; PULSE 79; PULSE 94; PULSE 97; TEMP 36.7; O2SAT 95
--- NOTE | 2017-05-09 15:17 | Progress Note ---
Subjective Date of Service: May 09, 2017. Subjective Pt evaluation today including: conversation w/ patient, physical exam, chart review, lab review, review of studies, conversation w/ merchandising consultant, review of inpatient medication list Was feeling dizziness when up to the restroom this morning, orthostatic blood pressure was checked was unremarkable Problem List Medical Problems: (1) Dehydration Status: Acute (2) Failure to thrive Status: Acute (3) Hypomagnesemia Status: Acute (4) UTI (urinary tract infection) Status: Acute (5) Vomiting Status: Acute Review of Systems Constitutional: No fever, No chills, No sweats, No weight loss, No weakness, No fatigue, No problem reported Eyes: No worsening of vision, No eye pain, No redness, No discharge, No diplopia ENT: No hearing loss, No unusual epistaxis, No nasal symptoms, No sore throat, No tinnitus, No dental problems, No trouble swallowing Respiratory: No cough, No sputum, No wheezing, No shortness of breath, No dyspnea on exertion, No dyspnea at rest, No hemoptysis Cardiac: No chest pain, No orthopnea, No PND, No edema, No claudication, No palpitations Abdomen: No pain, No nausea, No vomiting, No diarrhea, No constipation Musculoskeletal: No joint pain, No muscle pain, No swelling, No calf pain Male : No dysuria, No urinary frequency, No incontinence, No nocturia more than once/night, No slowing stream, No hematuria Neurologic: + see HPI, No memory loss, No paralysis, No weakness, No numbness/ tingling, No vertigo, No balance problems Psychiatric: No depression symptoms, No anhedonism, No anxiety, No insomnia, No substance abuse Heme: No abnormal bleeding/bruising, No clotting problems, No swollen lymph nodes, No night sweats Endo: No fatigue, No excessive thirst, No excessive urination Skin: No rash, No itch, No new/changing skin lesions, No color change, No bleeding Objective Vital Signs Date Time Temp Pulse Resp B/P (MAP) Pulse Ox O2 Delivery O2 Flow Rate FiO2 05/09/17 12:00 Room Air 05/09/17 11:17 36.7 79 18 116/61 (79) 95 Room Air 94 117/62 (80) 97 119/66 (83) 05/09/17 08:00 Room Air 05/09/17 07:23 36.7 89 16 115/65 (82) 95 05/09/17 04:21 36.6 82 16 114/66 (82) 94 Room Air 05/09/17 04:00 95 Room Air 05/08/17 23:59 95 Room Air 05/08/17 23:59 36.6 65 16 137/74 (95) 91 Room Air 05/08/17 20:00 95 Room Air 05/08/17 19:59 36.6 81 18 108/68 (81) 95 Room Air 05/08/17 19:48 36.6 78 20 122/62 (82) 95 Room Air 05/08/17 16:45 36.7 80 16 132/66 (88) 96 Room Air 05/08/17 16:00 94 Room Air Physical Exam General Appearance: WD/WN, no apparent distress Eyes: normal inspection, PERRL, EOMI, sclerae normal ENT: normal ENT inspection, hearing grossly normal, pharynx normal Neck: supple, no adenopathy, thyroid normal, no JVD, no carotid bruits, trachea midline Respiratory/Chest: chest non-tender, lungs clear, normal breath sounds, no respiratory distress, no accessory muscle use Cardiovascular: regular rate, rhythm, no edema, no gallop, no JVD, no murmur Abdomen: normal bowel sounds, non tender, soft, no organomegaly, no pulsatile mass Extremities: normal range of motion, non-tender, normal inspection, no pedal edema, no calf tenderness, normal capillary refill, pelvis stable Neurologic/Psychiatric: inspector elevators II-XII nml as tested, no motor/sensory deficits, alert, normal mood/affect, oriented x 3 Skin: normal color, warm/dry, no rash Lymphatic: no adenopathy Laboratory Results Last 24 Hours Test 05/08/17 16:18 05/09/17 05:50 Calcium Level 9.5 mg/dl 7.8 mg/dl Sodium Level 142 mmol/L Potassium Level 4.1 mmol/L Chloride Level 108 mmol/L Carbon Dioxide Level 27 mmol/L Anion Gap 7.0 mmol/L Blood Urea Nitrogen 24 mg/dl Creatinine 1.17 mg/dl Est Creatinine Clear Calc Drug Dose 41.6 ml/min Estimated GFR () 66.4 Estimated GFR (Non- 57.3 BUN/Creatinine Ratio 20.1 Random Glucose 81 mg/dl Assessment and Plan 81 year old man with a history of prostate cancer and osteoblastic mets admitted because of severe hypocalcemia associated with with fatigue and found to have severe hypocalcemia secondary to his Denosumab (03/02/2017) severe hypocalcemia associated secondary to severe hypocalcemia severe hypocalcemia secondary to his Denosumab (03/02/2017) Has been on continue Ca Gluconate infusion at 2 g / hr IV, which was on hold yesterday because calcium level was up to 11, which is restarted IV calcium gluconate at 1 gram/hour Grain Merchandising Manager on the case , Continue Mg Oxide 400 mg BID, Continue Calcitriol 4 mcg daily, OsCal 2500 QID, TUMS 2 grams TID, Monitor daily labs, cont tele for better monitoring of arrhythmia events during the calcium infusion Dizziness this morning is resolved, possibly related to not resting well last night, per report: hypocalcemia related to Denosumab. Median time to correction ~ 21 days Continued [facility] stay due to: multiple IV medications needed Discharge planning: uncertain
[2017-05-09 15:20] VITALS: BP 145/89; PULSE 83; TEMP 36.4; O2SAT 95
[2017-05-09] MEDS ORDERED: CALCITRIOL 0.25 MCG CAP PO ONE (16:15)
[2017-05-09] MEDS: RANITIDINE HCL 150 MG TAB PO SCH (21:00)
[2017-05-09] MEDS: TAMSULOSIN HCL 0.4 MG CAP PO SCH (21:00)
[2017-05-09 23:26] VITALS: BP 119/54; PULSE 75; TEMP 36.9; O2SAT 94
[2017-05-10] MEDS: CALCIUM GLUCONATE IV SCH ×3 (03:28→22:41)
[2017-05-10] MEDS: SODIUM CHLORIDE 0.9% IV SCH ×3 (03:28→22:41)
[2017-05-10 04:12] VITALS: BP 161/77; PULSE 81; TEMP 36.5; O2SAT 97
[2017-05-10 06:39] LABS: CALCIUM 9.3 mg/dl (8.5-10.1); CREATININE 1.07 mg/dl (0.60-1.40); POTASSIUM 4.1 mmol/L (3.5-5.1)
[2017-05-10 07:28] VITALS: BP 135/72; PULSE 78; TEMP 36.7; O2SAT 95
[2017-05-10] MEDS: CALCIUM CARBONATE 500 MG CHEWABLE PO SCH ×4 (07:39→20:25)
[2017-05-10] MEDS: POT PHOSPHATE MONOBASIC W/ SOD TAB PO SCH ×4 (07:39→20:27)
[2017-05-10] MEDS: MAGNESIUM OXIDE 400 MG TAB PO SCH ×2 (07:40→20:27)
[2017-05-10] MEDS: DOCUSATE SODIUM 100 MG CAP PO SCH ×2 (07:40→20:27)
[2017-05-10] MEDS: ERGOCALCIFEROL 50,000 INTER.UNIT CAP PO SCH (07:41)
[2017-05-10] MEDS ORDERED: CALCITRIOL 0.25 MCG CAP PO SCH ×2 (09:00)
[2017-05-10] MEDS ORDERED: HYDROCHLOROTHIAZIDE 50 MG TAB PO SCH (09:00)
[2017-05-10] MEDS: CALCITRIOL 0.5 MCG CAP PO SCH (09:00)
[2017-05-10] MEDS ORDERED: NURSING VERBAL MED ORDER ONE ×2 (09:15→12:45)
[2017-05-10] MEDS ORDERED: PANTOprazole SOD 40 MG TAB PO ONE (10:00)
--- NOTE | 2017-05-10 10:24 | Nephrology Progress Note ---
Nephrology Progress Note Date of Service May 10, 2017. Chief Complaint Follow-up for hypocalcemia Subjective David was seen and examined in his room this am. Ca improved on IV calcium gluconate. Otherwise remained asymptomatic. has been having hearing problem for last few days. Review of Systems A complete review of systems was performed. Pertinent positives are noted above. All other systems are negative. Vital Signs Last 8 Hrs Date Time Temp Pulse Resp B/P (MAP) Pulse Ox O2 Delivery O2 Flow Rate FiO2 05/10/17 07:28 36.7 78 16 135/72 (93) 95 05/10/17 04:12 36.5 81 18 161/77 (105) 97 Room Air 05/10/17 04:00 Room Air Last Recorded Weight Weight (Kilograms): 64.300 Physical Exam GENERAL: Elderly male , AAA x 3, pleasant, healthy-appearing, not in any distress. NECK: Supple, no JVD. RESPIRATORY: Normal breathing efforts, no accessory muscle use, clear to auscultation bilaterally, no wheezes or rales. CARDIOVASCULAR: S1, S2 normal, rate rhythm regular. EXTREMITY: No lower extremity edema NEURO: speech fluent. 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 05/10/17 05:19 Test 05/10/17 05:19 Anion Gap 8.0 mmol/L (3-11) Est Creatinine Clear Calc Drug Dose 45.5 ml/min Estimated GFR () 74.0 Estimated GFR (Non- 63.9 BUN/Creatinine Ratio 21.4 (10-20) Calcium Level 9.3 mg/dl (8.5-10.1) Allergies Coded Allergies: No Known Allergies (Unverified , 03/15/17) Medications Current Inpatient Medications Medications (Trade) Dose Ordered Sig/Jonathan Route Start Time Stop Time Status Last Admin Dose Admin Acetaminophen (Tylenol Tab) 650 mg Q4H PRN PO 03/15/17 14:15 05/10/17 14:14 Tamsulosin HCl (Flomax Cap) 0.8 mg HS PO 03/15/17 21:00 05/10/17 20:59 05/08/17 20:40 0.8 MG Miscellaneous Information (Order Awaiting Action) 1 ea QS N/A 03/15/17 16:00 05/10/17 15:59 Pantoprazole Sodium (Protonix Tab) 40 mg QAM PO 03/16/17 09:00 05/10/17 08:59 05/09/17 08:39 40 MG Ranitidine HCl (zANTac TAB) 300 mg HS PO 03/15/17 21:00 05/10/17 20:59 05/08/17 20:41 300 MG Polyethylene (Miralax Powder Packet) 17 gm DAILY PRN PO 03/15/17 15:00 05/10/17 14:59 Docusate Sodium (coLACE CAP) 100 mg BID PO 03/15/17 21:00 05/10/17 20:59 05/10/17 07:40 100 MG Bisacodyl (Dulcolax Supp) 10 mg DAILY PRN [place] 03/15/17 15:00 05/10/17 14:59 Calcium Carbonate (Tums Chew Tab) 2,000 mg QID PO 03/16/17 17:00 05/10/17 16:59 Future hold 05/10/17 07:39 2,000 MG Calcium Carbonate (oS-Randy 500 TAB) 1,250 mg QID PO 03/18/17 09:00 05/10/17 08:59 Future hold 05/09/17 17:06 1,250 MG Miscellaneous (Tap Water Enema) 1 ea Q2D PRN [place] 03/18/17 13:30 05/10/17 13:29 Heparin Sodium (Porcine) (Heparin 10 Unit/ ml 5 ml Flush) 5 ml PRN PRN FLUSH 03/18/17 15:30 05/10/17 15:29 05/09/17 06:09 5 ML Potassium/ Phosphorus/Sodium (Phospha 250 Neutral 155-852-130 Mg) 2 tab QID PO 04/10/17 17:00 05/10/17 16:59 05/10/17 07:39 2 TAB Ergocalciferol (Vitamin D Cap) 50,000 interunit DAILY PO 04/24/17 09:00 05/24/17 08:59 Future hold 05/10/17 07:41 50,000 INTERUNIT Magnesium Oxide (Mag-Ox Tab) 400 mg BID PO 04/26/17 09:00 05/26/17 08:59 05/10/17 07:40 400 MG Calcium Gluconate 60185 mg/Sodium Chloride 600 ml @ 60 mls/hr Q10H IV 05/09/17 08:00 06/08/17 07:59 05/10/17 03:28 60 MLS/HR Calcitriol (Rocaltrol Cap) 10 mcg QAM PO 05/10/17 09:00 06/09/17 08:59 05/10/17 07:42 10 MCG Impression (1) Hypocalcemia (2) Prostate cancer (3) Hypertension Mr. 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 He developed severe hypocalcemia following Denosumab infusion. Renal function is normal. 25OH D deficiency documented on presentation is being treated with Ergocalciferol 93769 IU. Calcitriol is also being provided. The patient is taking PO calcium in the form of TUMs and Oscal. Aggressive replacement with PO and IV calcium continues. The patient has had associated hypomagnesemia. He is tolerating oral magnesium replacement. Recommendations -- continue IV calcium gluconate at 1 gram/hour -- Continue Mg Oxide 400 mg BID -- increase Calcitriol to 10 mcg daily, OsCal 2500 QID, TUMS 2 grams TID -- check 24 h urine ca, if high, will start on HCTZ --suggest ENT eval for hearing loss -- Monitor serum calcium daily -- Ambulate
[2017-05-10 11:24] VITALS: BP 127/64; PULSE 77; TEMP 36.9; O2SAT 95
[2017-05-10] MEDS: CALCIUM CARBONATE 1250MG TAB PO SCH ×3 (13:38→20:25)
[2017-05-10] MEDS: CARBAMIDE PEROXIDE 6.5% 15 ML BTL OT SCH ×2 (13:38→20:28)
--- NOTE | 2017-05-10 15:03 | Progress Note ---
Subjective Date of Service: May 10, 2017. Subjective Pt evaluation today including: conversation w/ patient, physical exam, chart review, lab review, review of studies, review of inpatient medication list Report decreased hearing bilaterally from yesterday afternoon, has been on collection of 24-hour urine, otherwise eating and drinking Problem List Medical Problems: (1) Dehydration Status: Acute (2) Failure to thrive Status: Acute (3) Hypomagnesemia Status: Acute (4) UTI (urinary tract infection) Status: Acute (5) Vomiting Status: Acute Review of Systems Constitutional: No fever, No chills, No sweats, No weight loss, No weakness, No fatigue, No problem reported Eyes: No worsening of vision, No eye pain, No redness, No discharge, No diplopia ENT: + hearing loss, No unusual epistaxis, No nasal symptoms, No sore throat, No tinnitus, No dental problems, No trouble swallowing Respiratory: No cough, No sputum, No wheezing, No shortness of breath, No dyspnea on exertion, No dyspnea at rest, No hemoptysis Cardiac: No chest pain, No orthopnea, No PND, No edema, No claudication, No palpitations Abdomen: No pain, No nausea, No vomiting, No diarrhea, No constipation Musculoskeletal: No joint pain, No muscle pain, No swelling, No calf pain Male : No dysuria, No urinary frequency, No incontinence, No nocturia more than once/night, No slowing stream, No hematuria Neurologic: No memory loss, No paralysis, No weakness, No numbness/tingling, No vertigo, No balance problems Psychiatric: No depression symptoms, No anhedonism, No anxiety, No insomnia, No substance abuse Heme: No abnormal bleeding/bruising, No clotting problems, No swollen lymph nodes, No night sweats Endo: No fatigue, No excessive thirst, No excessive urination Skin: No rash, No itch, No new/changing skin lesions, No color change, No bleeding Objective Vital Signs Date Time Temp Pulse Resp B/P (MAP) Pulse Ox O2 Delivery O2 Flow Rate FiO2 05/10/17 12:00 Room Air 05/10/17 11:24 36.9 77 18 127/64 (85) 95 Room Air 05/10/17 08:00 Room Air 05/10/17 07:28 36.7 78 16 135/72 (93) 95 05/10/17 04:12 36.5 81 18 161/77 (105) 97 Room Air 05/10/17 04:00 Room Air 05/09/17 23:59 Room Air 05/09/17 23:26 36.9 75 16 119/54 (75) 94 Room Air 05/09/17 16:00 Room Air 05/09/17 15:20 36.4 83 16 145/89 (107) 95 Physical Exam General Appearance: WD/WN, no apparent distress Eyes: normal inspection, PERRL, EOMI, sclerae normal ENT: normal ENT inspection, pharynx normal, + pertinent finding (jerica ear was, fully packed) Neck: supple, no adenopathy, thyroid normal, no JVD, no carotid bruits, trachea midline Respiratory/Chest: chest non-tender, lungs clear, normal breath sounds, no respiratory distress, no accessory muscle use Cardiovascular: regular rate, rhythm, no edema, no gallop, no JVD, no murmur Abdomen: normal bowel sounds, non tender, soft, no organomegaly, no pulsatile mass Extremities: normal range of motion, non-tender, normal inspection, no pedal edema, no calf tenderness, normal capillary refill, pelvis stable Neurologic/Psychiatric: environmental services director II-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 nml as tested, no motor/sensory deficits, alert, normal mood/affect, oriented x 3, + abnormal cerebellar tests Skin: normal color, warm/dry, no rash Lymphatic: no adenopathy Laboratory Results Last 24 Hours Test 05/10/17 05:19 05/10/17 12:12 Sodium Level 140 mmol/L Potassium Level 4.1 mmol/L Chloride Level 106 mmol/L Carbon Dioxide Level 26 mmol/L Anion Gap 8.0 mmol/L Blood Urea Nitrogen 23 mg/dl Creatinine 1.07 mg/dl Est Creatinine Clear Calc Drug Dose 45.5 ml/min Estimated GFR () 74.0 Estimated GFR (Non- 63.9 BUN/Creatinine Ratio 21.4 Random Glucose 93 mg/dl Calcium Level 9.3 mg/dl Assessment and Plan 81 year old man with a history of prostate cancer and osteoblastic mets admitted because of severe hypocalcemia associated with with fatigue and found to have severe hypocalcemia secondary to his Denosumab (03/02/2017) severe hypocalcemia associated secondary to severe hypocalcemia severe hypocalcemia secondary to his Denosumab (03/02/2017) Has been on continue Ca Gluconate infusion at 2 g / hr IV, which was changed IV calcium gluconate at 1 gram/hour yesterday Continue Mg Oxide 400 mg BID, Continue Calcitriol 4 mcg daily, OsCal 2500 QID, TUMS 2 grams TID, Monitor daily labs, cont tele for better monitoring of arrhythmia events during the calcium infusion Pharmacist In Charge Owner on the case , renal is checking 24 h urine ca, if high, will start on HCTZ Dizziness yesterday was totally resolved Decreased bilateral hearing, secondary to Ear wax, Debrox eardrops started per report: hypocalcemia related to Denosumab. Median time to correction ~ 21 days Continued [facility] stay due to: multiple IV medications needed Discharge planning: uncertain
[2017-05-10 19:38] VITALS: BP 134/74; PULSE 81; TEMP 36.9; O2SAT 95
[2017-05-10] MEDS: TAMSULOSIN HCL 0.4 MG CAP PO SCH (20:26)
[2017-05-10] MEDS: RANITIDINE HCL 150 MG TAB PO SCH (20:28)
[2017-05-10 23:54] VITALS: BP 167/65; PULSE 91; TEMP 36.8; O2SAT 96
[2017-05-11 03:42] VITALS: BP 142/81; PULSE 82; TEMP 36.7; O2SAT 94
[2017-05-11 05:46] LABS: CALCIUM 10.2 mg/dl (8.5-10.1); CREATININE 1.14 mg/dl (0.60-1.40); POTASSIUM 4.5 mmol/L (3.5-5.1)
[2017-05-11] MEDS: CARBAMIDE PEROXIDE 6.5% 15 ML BTL OT SCH ×3 (06:07→20:46)
[2017-05-11 07:16] VITALS: BP 127/64; PULSE 70; TEMP 36.4; O2SAT 96
[2017-05-11] MEDS: PANTOprazole SOD 40 MG TAB PO SCH (07:45)
[2017-05-11] MEDS: CALCIUM CARBONATE 1250MG TAB PO SCH ×4 (07:45→20:45)
[2017-05-11] MEDS: DOCUSATE SODIUM 100 MG CAP PO SCH ×2 (07:46→20:44)
[2017-05-11] MEDS: ERGOCALCIFEROL 50,000 INTER.UNIT CAP PO SCH (07:46)
[2017-05-11] MEDS: CALCIUM CARBONATE 500 MG CHEWABLE PO SCH ×4 (07:47→20:46)
[2017-05-11] MEDS: MAGNESIUM OXIDE 400 MG TAB PO SCH ×2 (07:47→20:44)
[2017-05-11] MEDS: POT PHOSPHATE MONOBASIC W/ SOD TAB PO SCH ×4 (07:47→20:45)
[2017-05-11] MEDS: CALCITRIOL 0.5 MCG CAP PO SCH ×2 (07:49→11:22)
[2017-05-11] MEDS: CALCIUM GLUCONATE IV SCH ×2 (09:50→20:43)
[2017-05-11] MEDS: SODIUM CHLORIDE 0.9% IV SCH ×2 (09:50→20:43)
[2017-05-11] MEDS: HYDROCHLOROTHIAZIDE 50 MG TAB PO SCH (10:26)
[2017-05-11 11:23] VITALS: BP 129/73; PULSE 77; TEMP 36.5; O2SAT 95
--- NOTE | 2017-05-11 12:08 | Nephrology Progress Note ---
Nephrology Progress Note Date of Service May 11, 2017. Chief Complaint Follow-up for hypocalcemia Subjective David was seen and examined in his room this morning. Overall feeling well. 24 hour urine showed high urinary calcium in the setting of hypocalcemia. Blood pressure stable. Calcium improved. Review of Systems A complete review of systems was performed. Pertinent positives are noted above. All other systems are negative. Vital Signs Last 8 Hrs Date Time Temp Pulse Resp B/P (MAP) Pulse Ox O2 Delivery O2 Flow Rate FiO2 05/11/17 07:16 36.4 70 18 127/64 (85) 96 05/11/17 04:00 Room Air 05/11/17 03:42 36.7 82 18 142/81 (101) 94 Room Air Last Recorded Weight Weight (Kilograms): 63.800 Physical Exam GENERAL: Elderly male , AAA x 3, pleasant, healthy-appearing, not in any distress. NECK: Supple, no JVD. RESPIRATORY: Normal breathing efforts, no accessory muscle use, clear to auscultation bilaterally, no wheezes or rales. CARDIOVASCULAR: S1, S2 normal, rate rhythm regular. EXTREMITY: No lower extremity edema NEURO: speech fluent. 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 05/11/17 04:58 Test 05/10/17 12:00 05/11/17 04:58 Urine Collection Time 24 HOURS Urine Total Volume 3300 mL Urine Calcium mg% 8.4 mg/dl Urine Calcium 24 Hour 277.2 mg/24 HR (42-353) Anion Gap 8.0 mmol/L (3-11) Est Creatinine Clear Calc Drug Dose 42.7 ml/min Estimated GFR () 68.5 Estimated GFR (Non- 59.1 BUN/Creatinine Ratio 21.7 (10-20) Calcium Level 10.2 mg/dl (8.5-10.1) Allergies Coded Allergies: No Known Allergies (Unverified , 03/15/17) Medications Current Inpatient Medications Medications (Trade) Dose Ordered Sig/Jonathan Route Start Time Stop Time Status Last Admin Dose Admin Tamsulosin HCl (Flomax Cap) 0.8 mg HS PO 03/15/17 21:00 06/09/17 20:59 05/10/17 20:26 0.8 MG Ranitidine HCl (zANTac TAB) 300 mg HS PO 03/15/17 21:00 06/09/17 20:59 05/10/17 20:28 300 MG Calcium Carbonate (Tums Chew Tab) 2,000 mg QID PO 03/16/17 17:00 06/09/17 16:59 Future hold 05/11/17 07:47 2,000 MG Potassium/ Phosphorus/Sodium (Phospha 250 Neutral 155-852-130 Mg) 2 tab QID PO 04/10/17 17:00 06/09/17 16:59 05/11/17 07:47 2 TAB Ergocalciferol (Vitamin D Cap) 50,000 interunit DAILY PO 04/24/17 09:00 05/24/17 08:59 Future hold 05/11/17 07:46 50,000 INTERUNIT Magnesium Oxide (Mag-Ox Tab) 400 mg BID PO 04/26/17 09:00 05/26/17 08:59 05/11/17 07:47 400 MG Calcium Gluconate 87966 mg/Sodium Chloride 600 ml @ 60 mls/hr Q10H IV 05/09/17 08:00 06/08/17 07:59 05/10/17 22:41 60 MLS/HR Pantoprazole Sodium (Protonix Tab) 40 mg QAM PO 05/11/17 09:00 06/10/17 08:59 05/11/17 07:45 40 MG Docusate Sodium (coLACE CAP) 100 mg BID PO 05/10/17 21:00 06/09/17 20:59 05/11/17 07:46 100 MG Calcitriol (Rocaltrol Cap) 10 mcg QAM PO 05/10/17 09:00 06/09/17 08:59 Carbamide Peroxide (Earwax Removal Soln) 2 drops Q8 OT 05/10/17 14:00 05/14/17 13:59 05/11/17 06:07 2 DROPS Calcium Carbonate (oS-Randy 500 TAB) 1,250 mg QID PO 05/10/17 13:00 06/09/17 12:59 05/11/17 07:45 1,250 MG Impression (1) Hypocalcemia (2) Prostate cancer (3) Hypertension Mr. 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 He developed severe hypocalcemia following Denosumab infusion. Renal function is normal. 25OH D deficiency documented on presentation is being treated with Ergocalciferol 56856 IU. Calcitriol is also being provided. The patient is taking PO calcium in the form of TUMs and Oscal. Aggressive replacement with PO and IV calcium continues. The patient has had associated hypomagnesemia. He is tolerating oral magnesium replacement. Recommendations -- continue IV calcium gluconate at 1 gram/hour --Start on hydrochlorothiazide 25 milligram p.o. daily. -- Continue Mg Oxide 400 mg BID -- increase Calcitriol to 10 mcg daily, OsCal 2500 QID, TUMS 2 grams TID -- check 24 h urine ca, if high, will start on HCTZ -- Monitor serum calcium daily -- Ambulate
[2017-05-11 14:32] VITALS: BP 127/72; PULSE 80; TEMP 36.8; O2SAT 95
--- NOTE | 2017-05-11 16:04 | Progress Note ---
Subjective Date of Service: May 11, 2017. Subjective Pt evaluation today including: conversation w/ patient, physical exam, chart review, lab review, review of studies, conversation w/ senior health consultant, review of inpatient medication list Decreased hearing fromear wax, the same as yesterday, pleasant conversational, patient's son was in yesterday requested to check the skin lesions in her scalp because of patient has a history of melanoma Problem List Medical Problems: (1) Dehydration Status: Acute (2) Failure to thrive Status: Acute (3) Hypomagnesemia Status: Acute (4) UTI (urinary tract infection) Status: Acute (5) Vomiting Status: Acute Review of Systems Constitutional: No fever, No chills, No sweats, No weight loss, No weakness, No fatigue, No problem reported Eyes: No worsening of vision, No eye pain, No redness, No discharge, No diplopia ENT: No hearing loss, No unusual epistaxis, No nasal symptoms, No sore throat, No tinnitus, No dental problems, No trouble swallowing Respiratory: No cough, No sputum, No wheezing, No shortness of breath, No dyspnea on exertion, No dyspnea at rest, No hemoptysis Cardiac: No chest pain, No orthopnea, No PND, No edema, No claudication, No palpitations Abdomen: No pain, No nausea, No vomiting, No diarrhea, No constipation Musculoskeletal: No joint pain, No muscle pain, No swelling, No calf pain Male : No dysuria, No urinary frequency, No incontinence, No nocturia more than once/night, No slowing stream, No hematuria Neurologic: No memory loss, No paralysis, No weakness, No numbness/tingling, No vertigo, No balance problems Psychiatric: No depression symptoms, No anhedonism, No anxiety, No insomnia, No substance abuse Heme: No abnormal bleeding/bruising, No clotting problems, No swollen lymph nodes, No night sweats Endo: No fatigue, No excessive thirst, No excessive urination Skin: + problem reported (In the scalp has 2-3 different shape skin lesions, which is not dark or irregular border, no open wounds or drainages), No rash, No itch, No new/changing skin lesions, No color change, No bleeding Objective Vital Signs Date Time Temp Pulse Resp B/P (MAP) Pulse Ox O2 Delivery O2 Flow Rate FiO2 05/11/17 14:32 36.8 80 18 127/72 (90) 95 05/11/17 12:00 Room Air 05/11/17 11:23 36.5 77 18 129/73 (91) 95 05/11/17 08:00 Room Air 05/11/17 07:16 36.4 70 18 127/64 (85) 96 05/11/17 04:00 Room Air 05/11/17 03:42 36.7 82 18 142/81 (101) 94 Room Air 05/11/17 00:00 Room Air 05/10/17 23:54 36.8 91 20 167/65 (99) 96 Room Air 05/10/17 20:00 Room Air 05/10/17 19:38 36.9 81 16 134/74 (94) 95 Room Air 05/10/17 16:00 Room Air Physical Exam General Appearance: WD/WN, no apparent distress, + thin Eyes: normal inspection, PERRL, EOMI, sclerae normal ENT: normal ENT inspection, hearing grossly normal, pharynx normal Neck: supple, no adenopathy, thyroid normal, no JVD, no carotid bruits, trachea midline Respiratory/Chest: chest non-tender, normal breath sounds, no respiratory distress, no accessory muscle use, + decreased breath sounds Cardiovascular: regular rate, rhythm, no edema, no gallop, no JVD, no murmur Abdomen: normal bowel sounds, non tender, soft, no organomegaly, no pulsatile mass Extremities: normal range of motion, non-tender, normal inspection, no pedal edema, no calf tenderness, normal capillary refill, pelvis stable Neurologic/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: 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, no motor/sensory deficits, alert, normal mood/affect, oriented x 3 Skin: normal color, warm/dry, no rash, + pertinent finding (A few lesions in the scalp) Lymphatic: no adenopathy Laboratory Results Last 24 Hours Test 05/11/17 04:58 Sodium Level 140 mmol/L Potassium Level 4.5 mmol/L Chloride Level 106 mmol/L Carbon Dioxide Level 26 mmol/L Anion Gap 8.0 mmol/L Blood Urea Nitrogen 25 mg/dl Creatinine 1.14 mg/dl Est Creatinine Clear Calc Drug Dose 42.7 ml/min Estimated GFR () 68.5 Estimated GFR (Non- 59.1 BUN/Creatinine Ratio 21.7 Random Glucose 92 mg/dl Calcium Level 10.2 mg/dl Assessment and Plan 81 year old man with a history of prostate cancer and osteoblastic mets admitted because of severe hypocalcemia associated with with fatigue and found to have severe hypocalcemia secondary to his Denosumab (03/02/2017) severe hypocalcemia associated secondary to severe hypocalcemia severe hypocalcemia secondary to his Denosumab (03/02/2017) Has been on continue Ca Gluconate infusion at 2 g / hr IV, which was changed IV calcium gluconate at 1 gram/hour yesterday Continue hydrochlorothiazide 25 milligram p.o. daily, Mg Oxide 400 mg BID, Continue Calcitriol 10 mcg daily, OsCal 2500 QID, TUMS 2 grams TID, Batch Tester on the case , renal is checking 24 h urine ca, Dizziness yesterday was totally resolved Decreased bilateral hearing, secondary to Ear wax, Debrox eardrops started, will continue A few skin lesions in the scalp, there is no obvious signs of melanoma/ ulceration,, differential diagnosis includes melanoma, AK all SK, advised patient to follow-up with own farm mortgage agent after discharge from hospital per report: hypocalcemia related to Denosumab. Median time to correction ~ 21 days Continued [facility] stay due to: multiple IV medications needed Discharge planning: uncertain
[2017-05-11 20:12] VITALS: BP 111/63; PULSE 81; TEMP 36.7; O2SAT 96
[2017-05-11] MEDS: TAMSULOSIN HCL 0.4 MG CAP PO SCH (20:44)
[2017-05-11] MEDS: RANITIDINE HCL 150 MG TAB PO SCH (20:46)
[2017-05-12] VITALS (8 sets, daily range): BP systolic 97–133; BP diastolic 52–66; PULSE 74–95; TEMP 35.9–36.7; O2SAT 93–96
[2017-05-12 06:46] LABS: CALCIUM 9.6 mg/dl (8.5-10.1); CREATININE 1.25 mg/dl (0.60-1.40); POTASSIUM 4.2 mmol/L (3.5-5.1)
[2017-05-12] MEDS: CARBAMIDE PEROXIDE 6.5% 15 ML BTL OT SCH ×3 (07:01→20:43)
[2017-05-12] MEDS: SODIUM CHLORIDE 0.9% IV SCH ×2 (07:28→16:00)
[2017-05-12] MEDS: CALCIUM GLUCONATE IV SCH ×2 (07:28→16:00)
[2017-05-12] MEDS: DOCUSATE SODIUM 100 MG CAP PO SCH ×2 (08:18→20:40)
[2017-05-12] MEDS: ERGOCALCIFEROL 50,000 INTER.UNIT CAP PO SCH (08:18)
[2017-05-12] MEDS: PANTOprazole SOD 40 MG TAB PO SCH (08:18)
[2017-05-12] MEDS: POT PHOSPHATE MONOBASIC W/ SOD TAB PO SCH ×4 (08:19→20:42)
[2017-05-12] MEDS: CALCIUM CARBONATE 1250MG TAB PO SCH ×4 (08:19→20:40)
[2017-05-12] MEDS: MAGNESIUM OXIDE 400 MG TAB PO SCH ×2 (08:19→20:41)
[2017-05-12] MEDS: HYDROCHLOROTHIAZIDE 50 MG TAB PO SCH (08:21)
[2017-05-12] MEDS: CALCIUM CARBONATE 500 MG CHEWABLE PO SCH ×4 (08:22→20:41)
[2017-05-12] MEDS: CALCITRIOL 0.5 MCG CAP PO SCH (08:23)
--- NOTE | 2017-05-12 11:23 | Nephrology Progress Note ---
Nephrology Progress Note Date of Service May 12, 2017. Chief Complaint Hypocalcemia Subjective No acute events overnight. David was seen and evaluated this morning with his son at the bedside. David admits to feeling depressed and despondent. He is tried. He notes hearing loss. His appetite is good. Activity tolerance remains good. He denies pain. He denies muscle weakness. Review of Systems A complete review of systems was performed. Pertinent positives are noted above. All other systems are negative. Vital Signs Last 8 Hrs Date Time Temp Pulse Resp B/P (MAP) Pulse Ox O2 Delivery O2 Flow Rate FiO2 05/12/17 08:15 Room Air 05/12/17 07:06 36.5 74 16 133/62 (85) 96 Room Air 05/12/17 04:00 36.7 76 18 104/52 (69) 93 Room Air 05/12/17 04:00 Room Air I & O 24-Hour Column 05/13/17 07:59 Output Total 0 ml Balance 0 ml Last Recorded Weight Weight (Kilograms): 63.400 Physical Exam General Appearance: no apparent distress, + thin Head: normocephalic, atraumatic Eyes: normal inspection, sclerae normal ENT: normal ENT inspection, pharynx normal Neck: supple, no JVD Respiratory/Chest: lungs clear, no respiratory distress, no accessory muscle use Cardiovascular: regular rate, rhythm, no murmur Back: no CVA tenderness Abdomen/GI: non tender, soft Extremities/Musculoskelatal: normal inspection, no pedal edema Neurologic/Psych: alert, normal mood/affect Social History Drug Use: none Marital Status: Housing Status: lives with family (lives with son) 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 05/12/17 05:46 Test 05/12/17 05:46 Anion Gap 8.0 mmol/L (3-11) Est Creatinine Clear Calc Drug Dose 39.0 ml/min Estimated GFR () 61.3 Estimated GFR (Non- 52.9 BUN/Creatinine Ratio 19.5 (10-20) Calcium Level 9.6 mg/dl (8.5-10.1) Magnesium Level 1.8 mg/dl (1.8-2.4) Allergies Coded Allergies: No Known Allergies (Unverified , 03/15/17) Medications Current Inpatient Medications Medications (Trade) Dose Ordered Sig/Jonathan Route Start Time Stop Time Status Last Admin Dose Admin Tamsulosin HCl (Flomax Cap) 0.8 mg HS PO 03/15/17 21:00 06/09/17 20:59 05/11/17 20:44 0.8 MG Ranitidine HCl (zANTac TAB) 300 mg HS PO 03/15/17 21:00 06/09/17 20:59 05/11/17 20:46 300 MG Calcium Carbonate (Tums Chew Tab) 2,000 mg QID PO 03/16/17 17:00 06/09/17 16:59 Future hold 05/12/17 08:22 2,000 MG Potassium/ Phosphorus/Sodium (Phospha 250 Neutral 155-852-130 Mg) 2 tab QID PO 04/10/17 17:00 06/09/17 16:59 05/12/17 08:19 2 TAB Ergocalciferol (Vitamin D Cap) 50,000 interunit DAILY PO 04/24/17 09:00 05/24/17 08:59 Future hold 05/12/17 08:18 50,000 INTERUNIT Magnesium Oxide (Mag-Ox Tab) 400 mg BID PO 04/26/17 09:00 05/26/17 08:59 05/12/17 08:19 400 MG Calcium Gluconate 76972 mg/Sodium Chloride 600 ml @ 60 mls/hr Q10H IV 05/09/17 08:00 06/08/17 07:59 05/12/17 07:28 60 MLS/HR Pantoprazole Sodium (Protonix Tab) 40 mg QAM PO 05/11/17 09:00 06/10/17 08:59 05/12/17 08:18 40 MG Docusate Sodium (coLACE CAP) 100 mg BID PO 05/10/17 21:00 06/09/17 20:59 05/12/17 08:18 100 MG Calcitriol (Rocaltrol Cap) 10 mcg QAM PO 05/10/17 09:00 06/09/17 08:59 05/12/17 08:23 10 MCG Carbamide Peroxide (Earwax Removal Soln) 2 drops Q8 OT 05/10/17 14:00 05/14/17 13:59 05/12/17 07:01 2 DROPS Calcium Carbonate (oS-Randy 500 TAB) 1,250 mg QID PO 05/10/17 13:00 06/09/17 12:59 05/12/17 08:19 1,250 MG Hydrochlorothiazide (Hydrochlorothiazide Tab) 25 mg QAM PO 05/11/17 09:00 06/10/17 08:59 05/12/17 08:21 25 MG Impression (1) Hypocalcemia (2) Prostate cancer (3) Hypertension Mr. 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 He developed severe hypocalcemia following Denosumab infusion. Renal function is normal. 25OH D deficiency documented on presentation is being treated with Ergocalciferol 83908 IU. Calcitriol is also being provided. The patient is taking PO calcium in the form of TUMs and Oscal. Aggressive replacement with PO and IV calcium continues. The patient has had associated hypomagnesemia. He is tolerating oral magnesium replacement. Recommendations -- IV calcium gluconate at 1 gram/hour and hold once current infusion complete -- Will reduce serum calcium goal as much as tolerated, I am concerned hearing loss may be associated with otosclerosis -- Hydrochlorothiazide 25 milligram p.o. daily started yesterday and patient is tolerating the medication well -- Continue Mg Oxide 400 mg BID -- He remains on calcitriol to 10 mcg daily, OsCal 2500 QID, TUMS 2 grams TID -- Monitor serum calcium daily, monitor magnesium, phosphorus regularly
[2017-05-12] MEDS ORDERED: NURSING VERBAL MED ORDER ONE (13:00)
--- NOTE | 2017-05-12 14:30 | Progress Note ---
Subjective Date of Service: May 12, 2017. Subjective Pt evaluation today including: conversation w/ patient, conversation w/ family , physical exam, chart review, lab review, review of studies, conversation w/ cyber security consultant, review of inpatient medication list Decreased hearing is better today, no other complaint, Problem List Medical Problems: (1) Dehydration Status: Acute (2) Failure to thrive Status: Acute (3) Hypomagnesemia Status: Acute (4) UTI (urinary tract infection) Status: Acute (5) Vomiting Status: Acute Review of Systems Constitutional: No fever, No chills, No sweats, No weight loss, No weakness, No fatigue, No problem reported Eyes: No worsening of vision, No eye pain, No redness, No discharge, No diplopia ENT: + hearing loss, No unusual epistaxis, No nasal symptoms, No sore throat, No tinnitus, No dental problems, No trouble swallowing Respiratory: No cough, No sputum, No wheezing, No shortness of breath, No dyspnea on exertion, No dyspnea at rest, No hemoptysis Cardiac: No chest pain, No orthopnea, No PND, No edema, No claudication, No palpitations Abdomen: No pain, No nausea, No vomiting, No diarrhea, No constipation Musculoskeletal: No joint pain, No muscle pain, No swelling, No calf pain Male : No dysuria, No urinary frequency, No incontinence, No nocturia more than once/night, No slowing stream, No hematuria Neurologic: No memory loss, No paralysis, No weakness, No numbness/tingling, No vertigo, No balance problems Psychiatric: No depression symptoms, No anhedonism, No anxiety, No insomnia, No substance abuse Heme: No abnormal bleeding/bruising, No clotting problems, No swollen lymph nodes, No night sweats Endo: No fatigue, No excessive thirst, No excessive urination Skin: + problem reported (Skin lesion on top of the scalp), No rash, No itch, No new/changing skin lesions, No color change, No bleeding Objective Vital Signs Date Time Temp Pulse Resp B/P (MAP) Pulse Ox O2 Delivery O2 Flow Rate FiO2 05/12/17 12:15 Room Air 05/12/17 11:33 36.3 95 20 97/60 (72) 96 05/12/17 08:15 Room Air 05/12/17 07:06 36.5 74 16 133/62 (85) 96 Room Air 05/12/17 04:00 36.7 76 18 104/52 (69) 93 Room Air 05/12/17 04:00 Room Air 05/12/17 00:00 Room Air 05/12/17 00:00 36.7 87 20 113/65 (81) 96 Room Air 05/11/17 20:12 36.7 81 18 111/63 (79) 96 Room Air 05/11/17 20:00 Room Air 05/11/17 16:00 Room Air 05/11/17 14:32 36.8 80 18 127/72 (90) 95 Physical Exam General Appearance: WD/WN, no apparent distress Eyes: normal inspection, PERRL, EOMI, sclerae normal ENT: normal ENT inspection, hearing grossly normal, pharynx normal Neck: supple, no adenopathy, thyroid normal, no JVD, no carotid bruits, trachea midline Respiratory/Chest: chest non-tender, normal breath sounds, no respiratory distress, no accessory muscle use, + decreased breath sounds Cardiovascular: regular rate, rhythm, no edema, no gallop, no JVD, no murmur Abdomen: normal bowel sounds, non tender, soft, no organomegaly, no pulsatile mass Extremities: normal range of motion, non-tender, normal inspection, no pedal edema, no calf tenderness, normal capillary refill, pelvis stable Neurologic/Psychiatric: [employer]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, no motor/sensory deficits, alert, normal mood/affect, oriented x 3 Skin: normal color, warm/dry, no rash Lymphatic: no adenopathy Laboratory Results Last 24 Hours Test 05/12/17 05:46 Sodium Level 137 mmol/L Potassium Level 4.2 mmol/L Chloride Level 105 mmol/L Carbon Dioxide Level 24 mmol/L Anion Gap 8.0 mmol/L Blood Urea Nitrogen 24 mg/dl Creatinine 1.25 mg/dl Est Creatinine Clear Calc Drug Dose 39.0 ml/min Estimated GFR () 61.3 Estimated GFR (Non- 52.9 BUN/Creatinine Ratio 19.5 Random Glucose 92 mg/dl Calcium Level 9.6 mg/dl Magnesium Level 1.8 mg/dl Assessment and Plan 81 year old man with a history of prostate cancer and osteoblastic mets admitted because of severe hypocalcemia associated with with fatigue and found to have severe hypocalcemia secondary to his Denosumab (03/02/2017) severe hypocalcemia associated secondary to severe hypocalcemia severe hypocalcemia secondary to his Denosumab (03/02/2017) Has been on continue Ca Gluconate infusion at 2 g / hr IV, which was changed IV calcium gluconate at 1 gram/hour yesterday Continue hydrochlorothiazide 25 milligram p.o. daily, Mg Oxide 400 mg BID, Continue Calcitriol 10 mcg daily, OsCal 2500 QID, TUMS 2 grams TID, Consulting Networking Engineer on the case , r Decreased bilateral hearing, secondary to Ear wax, use tiny Q-tip has removed some ear wax today, continue Debrox eardrops A few skin lesions in the scalp, there is no obvious signs of melanoma/ ulceration,, differential diagnosis includes melanoma, AK all SK, advised patient to follow-up with own card scraper after discharge from hospital, talk to patient's son about this as well per report: hypocalcemia related to Denosumab. Median time to correction ~ 21 days Continued [facility] stay due to: multiple IV medications needed Discharge planning: uncertain
[2017-05-12] MEDS: RANITIDINE HCL 150 MG TAB PO SCH (20:41)
[2017-05-12] MEDS: TAMSULOSIN HCL 0.4 MG CAP PO SCH (20:42)
[2017-05-13] VITALS (7 sets, daily range): BP systolic 83–119; BP diastolic 46–60; PULSE 76–98; TEMP 36.4–37.1; O2SAT 93–96
[2017-05-13] MEDS: CARBAMIDE PEROXIDE 6.5% 15 ML BTL OT SCH ×3 (06:34→21:20)
[2017-05-13 07:10] LABS: CALCIUM 8.2 mg/dl (8.5-10.1)
[2017-05-13 07:11] LABS: ALBUMIN 3.5 gm/dl (3.4-5.0)
[2017-05-13] MEDS: DOCUSATE SODIUM 100 MG CAP PO SCH ×2 (07:50→21:19)
[2017-05-13] MEDS: MAGNESIUM OXIDE 400 MG TAB PO SCH ×2 (07:51→21:20)
[2017-05-13] MEDS: HYDROCHLOROTHIAZIDE 50 MG TAB PO SCH (07:51)
[2017-05-13] MEDS: CALCITRIOL 0.5 MCG CAP PO SCH (07:51)
[2017-05-13] MEDS: CALCIUM CARBONATE 1250MG TAB PO SCH ×4 (07:51→21:18)
[2017-05-13] MEDS: PANTOprazole SOD 40 MG TAB PO SCH (07:51)
[2017-05-13] MEDS: POT PHOSPHATE MONOBASIC W/ SOD TAB PO SCH ×4 (07:51→21:19)
[2017-05-13] MEDS: ERGOCALCIFEROL 50,000 INTER.UNIT CAP PO SCH (07:52)
[2017-05-13] MEDS: CALCIUM CARBONATE 500 MG CHEWABLE PO SCH ×4 (07:52→21:18)
[2017-05-13] MEDS ORDERED: CALCIUM GLUCONATE IV ONE (08:15)
[2017-05-13] MEDS ORDERED: SODIUM CHLORIDE 0.9% IV ONE (08:15)
--- NOTE | 2017-05-13 11:09 | Nephrology Progress Note ---
Nephrology Progress Note Date of Service May 13, 2017. Chief Complaint Hypocalcemia Subjective No acute events overnight. David was lightheaded and hypotensive this morning. He is resting in bed. He is frustrated. He notes persistent hearing loss. Continued drop in serum calcium very discouraging for patient. Review of Systems A complete review of systems was performed. Pertinent positives are noted above. All other systems are negative. Vital Signs Last 8 Hrs Date Time Temp Pulse Resp B/P (MAP) Pulse Ox O2 Delivery O2 Flow Rate FiO2 05/13/17 08:56 36.4 83 16 83/48 (60) 93 Room Air 05/13/17 07:30 Room Air 05/13/17 06:36 36.7 79 18 107/60 (76) 93 Room Air 05/13/17 04:00 Room Air Last Recorded Weight Weight (Kilograms): 63.700 Physical Exam General Appearance: no apparent distress, + thin Head: normocephalic, atraumatic Eyes: normal inspection, sclerae normal ENT: normal ENT inspection, pharynx normal Neck: supple, no JVD Respiratory/Chest: lungs clear, no respiratory distress, no accessory muscle use Cardiovascular: regular rate, rhythm, no gallop Back: no CVA tenderness Abdomen/GI: non tender, soft Extremities/Musculoskelatal: normal inspection, no pedal edema Neurologic/Psych: alert, normal mood/affect Social History Drug Use: none Marital Status: Housing Status: lives with family (lives with son) 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 05/13/17 05:51 Calcium Level 8.2 mg/dl (8.5-10.1) Albumin 3.5 gm/dl (3.4-5.0) Allergies Coded Allergies: No Known Allergies (Unverified , 03/15/17) Medications Current Inpatient Medications Medications (Trade) Dose Ordered Sig/Jonathan Route Start Time Stop Time Status Last Admin Dose Admin Tamsulosin HCl (Flomax Cap) 0.8 mg HS PO 03/15/17 21:00 06/09/17 20:59 05/12/17 20:42 0.8 MG Ranitidine HCl (zANTac TAB) 300 mg HS PO 03/15/17 21:00 06/09/17 20:59 05/12/17 20:41 300 MG Calcium Carbonate (Tums Chew Tab) 2,000 mg QID PO 03/16/17 17:00 06/09/17 16:59 Future hold 05/13/17 07:52 2,000 MG Potassium/ Phosphorus/Sodium (Phospha 250 Neutral 155-852-130 Mg) 2 tab QID PO 04/10/17 17:00 06/09/17 16:59 05/13/17 07:51 2 TAB Ergocalciferol (Vitamin D Cap) 50,000 interunit DAILY PO 04/24/17 09:00 05/24/17 08:59 Future hold 05/13/17 07:52 50,000 INTERUNIT Magnesium Oxide (Mag-Ox Tab) 400 mg BID PO 04/26/17 09:00 05/26/17 08:59 05/13/17 07:51 400 MG Pantoprazole Sodium (Protonix Tab) 40 mg QAM PO 05/11/17 09:00 06/10/17 08:59 05/13/17 07:51 40 MG Docusate Sodium (coLACE CAP) 100 mg BID PO 05/10/17 21:00 06/09/17 20:59 05/13/17 07:50 100 MG Calcitriol (Rocaltrol Cap) 10 mcg QAM PO 05/10/17 09:00 06/09/17 08:59 05/13/17 07:51 10 MCG Carbamide Peroxide (Earwax Removal Soln) 2 drops Q8 OT 05/10/17 14:00 05/14/17 13:59 05/13/17 06:34 2 DROPS Calcium Carbonate (oS-Randy 500 TAB) 1,250 mg QID PO 05/10/17 13:00 06/09/17 12:59 05/13/17 07:51 1,250 MG Hydrochlorothiazide (Hydrochlorothiazide Tab) 25 mg QAM PO 05/11/17 09:00 06/10/17 08:59 05/13/17 07:51 25 MG Calcium Gluconate 52092 mg/Sodium Chloride 600 ml @ 60 mls/hr Q10H ONCE IV 05/13/17 08:15 05/13/17 18:14 05/13/17 08:36 60 MLS/HR Impression (1) Hypocalcemia (2) Prostate cancer (3) Hypertension Mr. 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 He developed severe hypocalcemia following Denosumab infusion. Renal function is normal. 25OH D deficiency documented on presentation is being treated with Ergocalciferol 27315 IU. Calcitriol is also being provided. The patient is taking PO calcium in the form of TUMs and Oscal. Aggressive replacement with PO and IV calcium continues. The patient has had associated hypomagnesemia. He is tolerating oral magnesium replacement. Recommendations -- IV calcium gluconate at 1 gram/hour x 10 grams today -- I suspect that Bill is having side effects of large volume calcium infusions -- Target minimum calcium goal -- Transition from continuous infusion as tolerated -- I am concerned hearing loss may be associated with otosclerosis -- Hydrochlorothiazide 25 milligram p.o. daily started Sunday and patient is tolerating the medication well -- Continue Mg Oxide 400 mg BID -- He remains on calcitriol to 10 mcg daily, OsCal 2500 QID, TUMS 2 grams TID -- Monitor serum calcium daily, monitor magnesium, phosphorus regularly
--- NOTE | 2017-05-13 15:32 | Progress Note ---
Subjective Date of Service: May 13, 2017. Subjective Pt evaluation today including: conversation w/ patient, physical exam, chart review, lab review, review of studies, conversation w/ alliances consultant, review of inpatient medication list Voiding: bey catheter in place Was feeling dizziness when up to the restroom, there was the same episodes 2 days ago, decreased hearing, comes and goes, generally eating drinking good has good urine output, no other complaint Problem List Medical Problems: (1) Dehydration Status: Acute (2) Failure to thrive Status: Acute (3) Hypomagnesemia Status: Acute (4) UTI (urinary tract infection) Status: Acute (5) Vomiting Status: Acute Review of Systems Constitutional: + fatigue (Mild), No fever, No chills, No sweats, No weight loss, No weakness, No problem reported Eyes: No worsening of vision, No eye pain, No redness, No discharge, No diplopia ENT: + hearing loss, No unusual epistaxis, No nasal symptoms, No sore throat, No tinnitus, No dental problems, No trouble swallowing Respiratory: No cough, No sputum, No wheezing, No shortness of breath, No dyspnea on exertion, No dyspnea at rest, No hemoptysis Cardiac: No chest pain, No orthopnea, No PND, No edema, No claudication, No palpitations Abdomen: No pain, No nausea, No vomiting, No diarrhea, No constipation Musculoskeletal: No joint pain, No muscle pain, No swelling, No calf pain Male : No dysuria, No urinary frequency, No incontinence, No nocturia more than once/night, No slowing stream, No hematuria Neurologic: No memory loss, No paralysis, No weakness, No numbness/tingling, No vertigo, No balance problems Psychiatric: No depression symptoms, No anhedonism, No anxiety, No insomnia, No substance abuse Heme: No abnormal bleeding/bruising, No clotting problems, No swollen lymph nodes, No night sweats Endo: No fatigue, No excessive thirst, No excessive urination Skin: No rash, No itch, No new/changing skin lesions, No color change, No bleeding Objective Vital Signs Date Time Temp Pulse Resp B/P (MAP) Pulse Ox O2 Delivery O2 Flow Rate FiO2 05/13/17 15:12 36.9 76 20 112/52 (72) 95 05/13/17 11:33 36.7 76 16 107/46 (66) 94 Room Air 79 109/53 (71) 98 90/50 (63) 05/13/17 11:30 Room Air 05/13/17 08:56 36.4 83 16 83/48 (60) 93 Room Air 05/13/17 07:30 Room Air 05/13/17 06:36 36.7 79 18 107/60 (76) 93 Room Air 05/13/17 04:00 Room Air 05/13/17 02:38 36.7 81 18 94/52 (66) 95 Room Air 05/13/17 00:00 Room Air 05/12/17 23:11 36.6 89 18 120/65 (83) 95 Room Air 05/12/17 20:01 95 Room Air 05/12/17 16:03 95 Room Air 05/12/17 15:33 35.9 89 18 126/66 (86) 95 Room Air Physical Exam General Appearance: WD/WN, no apparent distress, + thin Eyes: normal inspection, PERRL, EOMI, sclerae normal ENT: normal ENT inspection, hearing grossly normal, pharynx normal, + pertinent finding (Bilateral ear wax) Neck: supple, no adenopathy, thyroid normal, no JVD, no carotid bruits, trachea midline Respiratory/Chest: chest non-tender, normal breath sounds, no respiratory distress, no accessory muscle use, + decreased breath sounds Cardiovascular: regular rate, rhythm, no edema, no gallop, no JVD, no murmur Abdomen: normal bowel sounds, non tender, soft, no organomegaly, no pulsatile mass Extremities: normal range of motion, non-tender, normal inspection, no pedal edema, no calf tenderness, normal capillary refill, pelvis stable Neurologic/Psychiatric: cardiopulmonary supervisor II-XII nml as tested, no motor/sensory deficits, alert, normal mood/affect, oriented x 3 Skin: normal color, warm/dry, no rash Lymphatic: no adenopathy Laboratory Results Last 24 Hours Test 05/13/17 05:51 Calcium Level 8.2 mg/dl Albumin 3.5 gm/dl Assessment and Plan 81 year old man with a history of prostate cancer and osteoblastic mets admitted because of severe hypocalcemia associated with with fatigue and found to have severe hypocalcemia secondary to his Denosumab (03/02/2017) severe hypocalcemia associated secondary to severe hypocalcemia severe hypocalcemia secondary to his Denosumab (03/02/2017) Has been on continue Ca Gluconate infusion at 2 g / hr IV, which was changed IV calcium gluconate at 1 gram/hour, today's calcium level was 8.1 Continue hydrochlorothiazide 25 milligram p.o. daily, Mg Oxide 400 mg BID, Continue Calcitriol 10 mcg daily, OsCal 2500 QID, TUMS 2 grams TID, Cashier Courtesy Booth on the case Decreased bilateral hearing, secondary to Ear wax, use tiny Q-tip has removed some ear wax today, continue Debrox eardrops concerned hearing loss may be associated with otosclerosis, need to have a BASELINE audiometry to follow the possible problem A few skin lesions in the scalp, there is no obvious signs of melanoma/ ulceration,, differential diagnosis includes melanoma, AK or SK, advised patient to follow-up with own peanut separator after discharge from hospital, talk to patient's son about this as well per report: hypocalcemia related to Denosumab. Median time to correction ~ 21 days Continued [facility] stay due to: multiple IV medications needed Discharge planning: uncertain
[2017-05-13] MEDS: TAMSULOSIN HCL 0.4 MG CAP PO SCH (21:18)
[2017-05-13] MEDS: RANITIDINE HCL 150 MG TAB PO SCH (21:20)
[2017-05-13 22:29] LABS: ALBUMIN 3.4 gm/dl (3.4-5.0); CALCIUM 8.9 mg/dl (8.5-10.1)
[2017-05-13] MEDS ORDERED: MoRPHine SULFATE 2 MG/ML CARP IV STA (23:38)
[2017-05-13] MEDS ORDERED: MoRPHine SULFATE 2 MG/ML CARP IV PRN (23:45)
[2017-05-14] MEDS: ACETAMINOPHEN 325 MG TAB PO PRN ×2 (00:22→07:49)
[2017-05-14 04:38] VITALS: BP 102/54; PULSE 78; TEMP 36.7; O2SAT 94
[2017-05-14] MEDS: CARBAMIDE PEROXIDE 6.5% 15 ML BTL OT SCH (06:07)
[2017-05-14 06:37] LABS: CALCIUM 7.9 mg/dl (8.5-10.1)
[2017-05-14 06:41] LABS: PHOSPHORUS 3.3 mg/dl (2.5-4.9)
[2017-05-14 07:19] VITALS: BP 90/44; PULSE 80; TEMP 36.6; O2SAT 96
[2017-05-14] MEDS: DOCUSATE SODIUM 100 MG CAP PO SCH ×2 (07:49→21:19)
[2017-05-14] MEDS: MAGNESIUM OXIDE 400 MG TAB PO SCH ×2 (07:49→21:22)
[2017-05-14] MEDS: CALCIUM CARBONATE 1250MG TAB PO SCH ×4 (07:49→21:21)
[2017-05-14] MEDS: POT PHOSPHATE MONOBASIC W/ SOD TAB PO SCH ×4 (07:50→21:19)
[2017-05-14] MEDS: CALCITRIOL 0.5 MCG CAP PO SCH (07:51)
[2017-05-14] MEDS: CALCIUM CARBONATE 500 MG CHEWABLE PO SCH ×4 (07:51→21:20)
[2017-05-14] MEDS: PANTOprazole SOD 40 MG TAB PO SCH (07:52)
[2017-05-14] MEDS: ERGOCALCIFEROL 50,000 INTER.UNIT CAP PO SCH (07:52)
[2017-05-14] MEDS ORDERED: CALCIUM GLUCONATE IV ONE (08:00)
[2017-05-14] MEDS ORDERED: SODIUM CHLORIDE 0.9% IV ONE (08:00)
--- NOTE | 2017-05-14 08:32 | Nephrology Progress Note ---
Nephrology Progress Note Date of Service May 14, 2017. Chief Complaint Hypocalcemia Subjective David reported some hip and lower back pain yesterday afternoon. He insists that this is better today. His concern was an odor from his navel. He states that he feels well. Hearing loss is progressive. David continues to make light of the situation. He maintains good spirits overall. He is ambulating in the halls. Review of Systems A complete review of systems was performed. Pertinent positives are noted above. All other systems are negative. Vital Signs Last 8 Hrs Date Time Temp Pulse Resp B/P (MAP) Pulse Ox O2 Delivery O2 Flow Rate FiO2 05/14/17 07:19 36.6 80 18 90/44 (59) 96 Room Air 05/14/17 04:38 36.7 78 20 102/54 (70) 94 Room Air 05/14/17 04:00 Room Air Last Recorded Weight Weight (Kilograms): 62.300 Physical Exam General Appearance: no apparent distress, + thin Head: normocephalic, atraumatic Eyes: normal inspection, sclerae normal ENT: normal ENT inspection, pharynx normal Neck: supple, no JVD Respiratory/Chest: lungs clear, no respiratory distress, no accessory muscle use Cardiovascular: regular rate, rhythm, no gallop Abdomen/GI: non tender, soft, + pertinent finding (mild erythema and slight order to navel area) Extremities/Musculoskelatal: normal inspection, no pedal edema, + pertinent finding (SI joint R mildly tender to palpation) Neurologic/Psych: alert, normal mood/affect Social History Drug Use: none Marital Status: Housing Status: lives with family (lives with son) 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 05/13/17 21:57 05/14/17 05:39 Calcium Level 8.9 mg/dl (8.5-10.1) 7.9 mg/dl (8.5-10.1) Albumin 3.4 gm/dl (3.4-5.0) Phosphorus Level 3.3 mg/dl (2.5-4.9) Magnesium Level 1.9 mg/dl (1.8-2.4) Allergies Coded Allergies: No Known Allergies (Unverified , 03/15/17) Medications Current Inpatient Medications Medications (Trade) Dose Ordered Sig/Jonathan Route Start Time Stop Time Status Last Admin Dose Admin Tamsulosin HCl (Flomax Cap) 0.8 mg HS PO 03/15/17 21:00 06/09/17 20:59 05/13/17 21:18 0.8 MG Ranitidine HCl (zANTac TAB) 300 mg HS PO 03/15/17 21:00 06/09/17 20:59 05/13/17 21:20 300 MG Calcium Carbonate (Tums Chew Tab) 2,000 mg QID PO 03/16/17 17:00 06/09/17 16:59 Future hold 05/14/17 07:51 2,000 MG Potassium/ Phosphorus/Sodium (Phospha 250 Neutral 155-852-130 Mg) 2 tab QID PO 04/10/17 17:00 06/09/17 16:59 05/14/17 07:50 2 TAB Ergocalciferol (Vitamin D Cap) 50,000 interunit DAILY PO 04/24/17 09:00 05/24/17 08:59 Future hold 05/14/17 07:52 50,000 INTERUNIT Magnesium Oxide (Mag-Ox Tab) 400 mg BID PO 04/26/17 09:00 05/26/17 08:59 05/14/17 07:49 400 MG Pantoprazole Sodium (Protonix Tab) 40 mg QAM PO 05/11/17 09:00 06/10/17 08:59 05/14/17 07:52 40 MG Docusate Sodium (coLACE CAP) 100 mg BID PO 05/10/17 21:00 06/09/17 20:59 05/14/17 07:49 100 MG Calcitriol (Rocaltrol Cap) 10 mcg QAM PO 05/10/17 09:00 06/09/17 08:59 05/14/17 07:51 10 MCG Carbamide Peroxide (Earwax Removal Soln) 2 drops Q8 OT 05/10/17 14:00 05/14/17 13:59 05/14/17 06:07 2 DROPS Calcium Carbonate (oS-Randy 500 TAB) 1,250 mg QID PO 05/10/17 13:00 06/09/17 12:59 05/14/17 07:49 1,250 MG Hydrochlorothiazide (Hydrochlorothiazide Tab) 25 mg QAM PO 05/11/17 09:00 06/10/17 08:59 05/13/17 07:51 25 MG Acetaminophen (Tylenol Tab) 650 mg Q6H PRN PO 05/14/17 00:00 06/13/17 00:00 05/14/17 07:49 650 MG Calcium Gluconate 79596 mg/Sodium Chloride 600 ml @ 60 mls/hr Q10H ONCE IV 05/14/17 08:00 05/14/17 17:59 05/14/17 07:49 60 MLS/HR Impression (1) Hypocalcemia (2) Prostate cancer (3) Hypertension Mr. 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 He developed severe hypocalcemia following Denosumab infusion. Renal function is normal. 25OH D deficiency documented on presentation is being treated with Ergocalciferol 32561 IU. Calcitriol is also being provided. The patient is taking PO calcium in the form of TUMs and Oscal. Aggressive replacement with PO and IV calcium continues. The patient has had associated hypomagnesemia. He is tolerating oral magnesium replacement. He is showing evidence of an umbilical infection. Joint pains including SI joint noted. Hearing loss progressive. Recommendations -- IV calcium gluconate at 1 gram/hour x 10 grams today -- Bill is having side effects of large volume calcium infusions -- I would have a low threshold to obtain imaging for any hip or back pain, patient opted to defer this morning but I suspect SI pain is related to calcifications -- Calcium goal lowered to >8 -- I am concerned hearing loss may be associated with otosclerosis, audiology consultation would be appreciated -- Hydrochlorothiazide 25 milligram p.o. daily started Sunday and patient is tolerating the medication well -- Continue Mg Oxide 400 mg BID -- He remains on calcitriol to 10 mcg daily, OsCal 2500 QID, TUMS 2 grams TID -- Monitor serum calcium daily, monitor magnesium, phosphorus regularly -- Topical antibiotic cream for umbilical infection
[2017-05-14] MEDS: HYDROCHLOROTHIAZIDE 50 MG TAB PO SCH (09:00)
[2017-05-14 11:51] VITALS: BP 123/68; PULSE 78; TEMP 36.6; O2SAT 95
[2017-05-14] MEDS: NEOMYCIN/POLYMYX/BACITR OINT 15 GM TUBE EXT SCH ×2 (12:44→21:22)
--- NOTE | 2017-05-14 15:29 | Progress Note ---
Subjective Date of Service: May 14, 2017. Subjective Pt evaluation today including: conversation w/ patient, conversation w/ family , physical exam Doing okay, feeling hearing is better, report lower back, and hip joint pain yesterday, no complaint today Problem List Medical Problems: (1) Dehydration Status: Acute (2) Failure to thrive Status: Acute (3) Hypomagnesemia Status: Acute (4) UTI (urinary tract infection) Status: Acute (5) Vomiting Status: Acute Review of Systems Constitutional: No fever, No chills, No sweats, No weight loss, No weakness, No fatigue, No problem reported Eyes: No worsening of vision, No eye pain, No redness, No discharge, No diplopia ENT: + hearing loss, No unusual epistaxis, No nasal symptoms, No sore throat, No tinnitus, No dental problems, No trouble swallowing Respiratory: No cough, No sputum, No wheezing, No shortness of breath, No dyspnea on exertion, No dyspnea at rest, No hemoptysis Cardiac: No chest pain, No orthopnea, No PND, No edema, No claudication, No palpitations Abdomen: No pain, No nausea, No vomiting, No diarrhea, No constipation Musculoskeletal: + joint pain, No muscle pain, No swelling, No calf pain Male : No dysuria, No urinary frequency, No incontinence, No nocturia more than once/night, No slowing stream, No hematuria Neurologic: No memory loss, No paralysis, No weakness, No numbness/tingling, No vertigo, No balance problems Psychiatric: No depression symptoms, No anhedonism, No anxiety, No insomnia, No substance abuse Heme: No abnormal bleeding/bruising, No clotting problems, No swollen lymph nodes, No night sweats Endo: No fatigue, No excessive thirst, No excessive urination Skin: No rash, No itch, No new/changing skin lesions, No color change, No bleeding Objective Vital Signs Date Time Temp Pulse Resp B/P (MAP) Pulse Ox O2 Delivery O2 Flow Rate FiO2 05/14/17 12:30 Room Air 05/14/17 11:51 36.6 78 16 123/68 (86) 95 05/14/17 08:00 Room Air 05/14/17 07:19 36.6 80 18 90/44 (59) 96 Room Air 05/14/17 04:38 36.7 78 20 102/54 (70) 94 Room Air 05/14/17 04:00 Room Air 05/14/17 00:00 Room Air 05/13/17 22:50 37.1 84 18 119/57 (77) 96 Room Air 05/13/17 20:00 Room Air 05/13/17 19:15 37.0 79 20 107/49 (68) 94 Room Air 05/13/17 16:00 Room Air Physical Exam General Appearance: WD/WN, no apparent distress Eyes: normal inspection, PERRL, EOMI, sclerae normal ENT: normal ENT inspection, hearing grossly normal, pharynx normal Neck: supple, no adenopathy, thyroid normal, no JVD, no carotid bruits, trachea midline Respiratory/Chest: chest non-tender, normal breath sounds, no respiratory distress, no accessory muscle use, + decreased breath sounds Cardiovascular: regular rate, rhythm, no edema, no gallop, no JVD, no murmur Abdomen: normal bowel sounds, non tender, soft, no organomegaly, no pulsatile mass Extremities: normal range of motion, non-tender, normal inspection, no pedal edema, no calf tenderness, normal capillary refill, pelvis stable Neurologic/Psychiatric: yard manager II-XII nml as tested, no motor/sensory deficits, alert, normal mood/affect, oriented x 3 Skin: normal color, warm/dry, no rash Lymphatic: no adenopathy Laboratory Results Last 24 Hours Test 05/13/17 21:57 05/14/17 05:39 Calcium Level 8.9 mg/dl 7.9 mg/dl Albumin 3.4 gm/dl Phosphorus Level 3.3 mg/dl Magnesium Level 1.9 mg/dl Assessment and Plan 81 year old man with a history of prostate cancer and osteoblastic mets admitted because of severe hypocalcemia associated with with fatigue and found to have severe hypocalcemia secondary to his Denosumab (03/02/2017) severe hypocalcemia associated secondary to severe hypocalcemia severe hypocalcemia secondary to his Denosumab (03/02/2017) was Ca Gluconate infusion at 2 g / hr IV, which was changed IV calcium gluconate at 1 gram/hour, today's calcium level was 7.9 target IV calcium gluconate at 1 gram/hour x 10 grams today Need to watch side effect from high volume calcium infusion, currently running signs include decreased hearing, and joint pain Continue hydrochlorothiazide 25 milligram p.o. daily, Mg Oxide 400 mg BID, Continue Calcitriol 10 mcg daily, OsCal 2500 QID, TUMS 2 grams TID, [employer] on the case Decreased bilateral hearing, secondary to Ear wax, I was using tiny Q-tip has removed some ear wax today, continue Debrox eardrops concerned hearing loss may be associated with otosclerosis, need to have a BASELINE audiometry to follow the possible problem A few skin lesions in the scalp, there is no obvious signs of melanoma/ ulceration,, differential diagnosis includes melanoma, AK or SK, advised patient to follow-up with own data processing operator after discharge from hospital, talk to patient's son about this as well per report: hypocalcemia related to Denosumab. Median time to correction ~ 21 days Continued [facility] stay due to: multiple IV medications needed Discharge planning: uncertain
[2017-05-14 15:38] VITALS: BP 118/70; PULSE 81; TEMP 37; O2SAT 96
[2017-05-14 19:34] VITALS: BP 106/54; PULSE 88; TEMP 37.3; O2SAT 95
[2017-05-14] MEDS: TAMSULOSIN HCL 0.4 MG CAP PO SCH (21:21)
[2017-05-14] MEDS: RANITIDINE HCL 150 MG TAB PO SCH (21:21)
[2017-05-14 23:23] VITALS: BP 96/52; PULSE 94; TEMP 37.3; O2SAT 94
[2017-05-15 03:57] VITALS: BP 92/49; PULSE 88; TEMP 37; O2SAT 95
[2017-05-15] MEDS: NEOMYCIN/POLYMYX/BACITR OINT 15 GM TUBE EXT SCH ×3 (05:31→20:46)
[2017-05-15 07:22] VITALS: BP 110/44; PULSE 87; TEMP 36.9; O2SAT 94
[2017-05-15] MEDS: MAGNESIUM OXIDE 400 MG TAB PO SCH ×2 (08:58→20:44)
[2017-05-15] MEDS: DOCUSATE SODIUM 100 MG CAP PO SCH ×2 (08:58→20:45)
[2017-05-15] MEDS: POT PHOSPHATE MONOBASIC W/ SOD TAB PO SCH ×4 (08:58→20:43)
[2017-05-15] MEDS: ERGOCALCIFEROL 50,000 INTER.UNIT CAP PO SCH (08:59)
[2017-05-15] MEDS: PANTOprazole SOD 40 MG TAB PO SCH (08:59)
[2017-05-15] MEDS: CALCITRIOL 0.5 MCG CAP PO SCH (08:59)
[2017-05-15] MEDS: CALCIUM CARBONATE 1250MG TAB PO SCH ×4 (08:59→20:44)
[2017-05-15] MEDS: CALCIUM CARBONATE 500 MG CHEWABLE PO SCH ×4 (08:59→20:44)
[2017-05-15] MEDS: HYDROCHLOROTHIAZIDE 50 MG TAB PO SCH (08:59)
--- NOTE | 2017-05-15 09:07 | Progress Note ---
Subjective Date of Service: May 15, 2017. Subjective this pt is having no other significant issues except for some reduction in hearing and some lower blood pressure attributed to restarting hctz, otherwise is no worse for the wear for being in the hospital for 61 days Problem List Medical Problems: (1) Dehydration Status: Acute (2) Failure to thrive Status: Acute (3) Hypomagnesemia Status: Acute (4) UTI (urinary tract infection) Status: Acute (5) Vomiting Status: Acute Review of Systems Constitutional: No fever, No chills, No weakness, No fatigue ENT: + hearing loss, No nasal symptoms Respiratory: No cough, No wheezing Cardiac: No chest pain, No PND Abdomen: No pain, No nausea Neurologic: + weakness, No memory loss, No paralysis Psychiatric: No depression symptoms, No anxiety Objective Vital Signs Date Time Temp Pulse Resp B/P (MAP) Pulse Ox O2 Delivery O2 Flow Rate FiO2 05/15/17 07:22 36.9 87 16 110/44 (66) 94 05/15/17 04:00 Room Air 05/15/17 03:57 37.0 88 20 92/49 (63) 95 Room Air 05/15/17 00:00 Room Air 05/14/17 23:23 37.3 94 18 96/52 (67) 94 Room Air 05/14/17 20:00 Room Air 05/14/17 19:34 37.3 88 18 106/54 (71) 95 Room Air 05/14/17 16:00 Room Air 05/14/17 15:38 37.0 81 18 118/70 (86) 96 05/14/17 12:30 Room Air 05/14/17 11:51 36.6 78 16 123/68 (86) 95 Physical Exam General Appearance: WD/WN, + mild distress Eyes: normal inspection, sclerae normal Neck: supple, no JVD, no carotid bruits Respiratory/Chest: chest non-tender, lungs clear, normal breath sounds Cardiovascular: regular rate, rhythm, no murmur Abdomen: normal bowel sounds, non tender, soft Extremities: no pedal edema, no calf tenderness Neurologic/Psychiatric: alert, oriented x 3 Laboratory Results Last 24 Hours Test 05/15/17 05:40 Calcium Level 7.5 mg/dl Assessment and Plan 81 year old man with a history of prostate cancer and osteoblastic mets admitted because of severe hypocalcemia associated with with fatigue and found to have severe hypocalcemia secondary to his Denosumab (03/02/2017) severe hypocalcemia associated secondary to severe hypocalcemia severe hypocalcemia secondary to his Denosumab (03/02/2017) was Ca Gluconate infusion at 2 g / hr IV, which was changed IV calcium gluconate at 1 gram/hour, calcium level was 7.5 target IV calcium gluconate at 1 gram/hour x 10 grams today Need to watch side effect from high volume calcium infusion, currently running signs include decreased hearing, and joint pain Continue hydrochlorothiazide 25 milligram p.o. daily, Mg Oxide 400 mg BID, Continue Calcitriol 10 mcg daily, OsCal 2500 QID, TUMS 2 grams TID, Private Duty Rn on the case Decreased bilateral hearing, secondary to Ear wax, continue Debrox eardrops concerned hearing loss may be associated with otosclerosis, need to have a BASELINE audiometry to follow the possible problem A few skin lesions in the scalp, there is no obvious signs of melanoma/ ulceration,, differential diagnosis includes melanoma, [place] or [place], advised patient to follow-up with own actuary manager after discharge from hospital, talk to patient's son about this as well per report: hypocalcemia related to Denosumab. Median time to correction ~ 21 days Continued [facility] stay due to: multiple IV medications needed Discharge planning: uncertain
--- NOTE | 2017-05-15 09:19 | Nephrology Progress Note ---
Nephrology Progress Note Date of Service May 15, 2017. Chief Complaint Hypocalcemia Subjective No acute events overnight. David feels well this morning. He continues to have some mild intermittent lower back pain but notes that this has improved. He was ambulating less yesterday. He reports feeling tired. Hearing loss persists. David appears slightly depressed today. He denies weakness. He denies cramps or muscle fasciculations. Some improvement in erythema around umbilicus. Review of Systems A complete review of systems was performed. Pertinent positives are noted above. All other systems are negative. Vital Signs Last 8 Hrs Date Time Temp Pulse Resp B/P (MAP) Pulse Ox O2 Delivery O2 Flow Rate FiO2 05/15/17 07:22 36.9 87 16 110/44 (66) 94 05/15/17 04:00 Room Air 05/15/17 03:57 37.0 88 20 92/49 (63) 95 Room Air Last Recorded Weight Weight (Kilograms): 62.000 Physical Exam General Appearance: no apparent distress, + thin Head: normocephalic, atraumatic Eyes: normal inspection, sclerae normal ENT: normal ENT inspection, pharynx normal Neck: supple, no JVD Respiratory/Chest: lungs clear, no respiratory distress, no accessory muscle use Cardiovascular: regular rate, rhythm, no gallop Back: no CVA tenderness Abdomen/GI: non tender, soft Extremities/Musculoskelatal: normal inspection, no pedal edema Neurologic/Psych: alert, normal mood/affect Social History Drug Use: none Marital Status: Housing Status: lives with family (lives with son) 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 05/15/17 05:40 Calcium Level 7.5 mg/dl (8.5-10.1) Allergies Coded Allergies: No Known Allergies (Unverified , 03/15/17) Medications Current Inpatient Medications Medications (Trade) Dose Ordered Sig/Jonathan Route Start Time Stop Time Status Last Admin Dose Admin Tamsulosin HCl (Flomax Cap) 0.8 mg HS PO 03/15/17 21:00 06/09/17 20:59 05/14/17 21:21 0.8 MG Ranitidine HCl (zANTac TAB) 300 mg HS PO 03/15/17 21:00 06/09/17 20:59 05/14/17 21:21 300 MG Calcium Carbonate (Tums Chew Tab) 2,000 mg QID PO 03/16/17 17:00 06/09/17 16:59 Future hold 05/15/17 08:59 2,000 MG Potassium/ Phosphorus/Sodium (Phospha 250 Neutral 155-852-130 Mg) 2 tab QID PO 04/10/17 17:00 06/09/17 16:59 05/15/17 08:58 2 TAB Ergocalciferol (Vitamin D Cap) 50,000 interunit DAILY PO 04/24/17 09:00 05/24/17 08:59 Future hold 05/15/17 08:59 50,000 INTERUNIT Magnesium Oxide (Mag-Ox Tab) 400 mg BID PO 04/26/17 09:00 05/26/17 08:59 05/15/17 08:58 400 MG Pantoprazole Sodium (Protonix Tab) 40 mg QAM PO 05/11/17 09:00 06/10/17 08:59 05/15/17 08:59 40 MG Docusate Sodium (coLACE CAP) 100 mg BID PO 05/10/17 21:00 06/09/17 20:59 05/15/17 08:58 100 MG Calcitriol (Rocaltrol Cap) 10 mcg QAM PO 05/10/17 09:00 06/09/17 08:59 05/15/17 08:59 10 MCG Calcium Carbonate (oS-Randy 500 TAB) 1,250 mg QID PO 05/10/17 13:00 06/09/17 12:59 05/15/17 08:59 1,250 MG Hydrochlorothiazide (Hydrochlorothiazide Tab) 25 mg QAM PO 05/11/17 09:00 06/10/17 08:59 05/15/17 08:59 25 MG Acetaminophen (Tylenol Tab) 650 mg Q6H PRN PO 05/14/17 00:00 06/13/17 00:00 05/14/17 07:49 650 MG Neomycin/ Polymyxin/ Bacitracin (Neosporin Oint) 1 appln Q8 EXT 05/14/17 14:00 06/13/17 13:59 05/15/17 09:00 1 APPLN Impression (1) Hypocalcemia (2) Prostate cancer (3) Hypertension Mr. 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 He developed severe hypocalcemia following Denosumab infusion. Renal function is normal. 25OH D deficiency documented on presentation is being treated with Ergocalciferol 00005 IU. Calcitriol is also being provided. The patient is taking PO calcium in the form of TUMs and Oscal. Aggressive replacement with PO and IV calcium continues. The patient has had associated hypomagnesemia. He is tolerating oral magnesium replacement. He also remains on a phosphorus supplement. He is showing evidence of an umbilical infection. This is being treated with routine cleaning, drying the area well and applying alcohol and Neosporin. Joint pains including SI joint noted. Hearing loss progressive. Recommendations -- IV calcium gluconate at 1 gram/hour x 10 grams today infused over 6 hours -- I would have a low threshold to obtain imaging for any hip or back pain, patient opted to defer this morning but I suspect SI pain is related to calcifications -- I am concerned hearing loss may be associated with otosclerosis, audiology consultation would be appreciated -- Hydrochlorothiazide 25 milligram p.o. daily started Sunday -- Continue Mg Oxide 400 mg BID -- He remains on calcitriol to 10 mcg daily, OsCal 2500 QID, TUMS 2 grams TID -- Monitor serum calcium daily, monitor magnesium, phosphorus regularly
[2017-05-15] MEDS ORDERED: SODIUM CHLORIDE 0.9% IV ONE (09:45)
[2017-05-15] MEDS ORDERED: CALCIUM GLUCONATE IV ONE (09:45)
[2017-05-15 11:22] VITALS: BP 111/37; PULSE 74; TEMP 36.7; O2SAT 94
[2017-05-15 15:50] VITALS: BP 133/66; PULSE 83; TEMP 37; O2SAT 95
[2017-05-15 19:30] VITALS: BP 101/53; PULSE 82; TEMP 37.4; O2SAT 93
[2017-05-15] MEDS: RANITIDINE HCL 150 MG TAB PO SCH (20:45)
[2017-05-15] MEDS: TAMSULOSIN HCL 0.4 MG CAP PO SCH (20:45)
[2017-05-16 00:02] VITALS: BP 90/41; PULSE 84; TEMP 37.2; O2SAT 94
[2017-05-16] MEDS: NEOMYCIN/POLYMYX/BACITR OINT 15 GM TUBE EXT SCH ×3 (05:34→20:48)
[2017-05-16 06:02] LABS: CALCIUM 7.7 mg/dl (8.5-10.1)
[2017-05-16] MEDS ORDERED: CALCIUM GLUCONATE IV ONE (06:15)
[2017-05-16] MEDS ORDERED: SODIUM CHLORIDE 0.9% IV ONE (06:15)
[2017-05-16 06:21] LABS: PHOSPHORUS 2.7 mg/dl (2.5-4.9)
[2017-05-16 07:45] VITALS: BP 110/59; PULSE 83; TEMP 36.8; O2SAT 93
[2017-05-16] MEDS: CALCITRIOL 0.5 MCG CAP PO SCH (08:58)
[2017-05-16] MEDS: HYDROCHLOROTHIAZIDE 50 MG TAB PO SCH (08:58)
[2017-05-16] MEDS: MAGNESIUM OXIDE 400 MG TAB PO SCH ×2 (08:58→20:47)
[2017-05-16] MEDS: CALCIUM CARBONATE 1250MG TAB PO SCH ×4 (08:58→20:46)
[2017-05-16] MEDS: ERGOCALCIFEROL 50,000 INTER.UNIT CAP PO SCH (08:59)
[2017-05-16] MEDS: PANTOprazole SOD 40 MG TAB PO SCH (08:59)
[2017-05-16] MEDS: DOCUSATE SODIUM 100 MG CAP PO SCH ×2 (08:59→20:46)
[2017-05-16] MEDS: POT PHOSPHATE MONOBASIC W/ SOD TAB PO SCH ×4 (08:59→20:46)
[2017-05-16] MEDS: CALCIUM CARBONATE 500 MG CHEWABLE PO SCH ×4 (08:59→20:47)
[2017-05-16 11:37] VITALS: BP 121/67; PULSE 80; TEMP 36.9; O2SAT 95
--- NOTE | 2017-05-16 12:22 | Nephrology Progress Note ---
Nephrology Progress Note Date of Service May 16, 2017. Chief Complaint Hypocalcemia Subjective No acute events overnight. David was sleeping this morning. He is tired. He noted difficulty sleeping overnight. He also noted some mild nausea. No constipation or diarrhea. Nausea is improving. Appetite is good. Activity tolerance remains good. No fevers or chills. He noted that he would like a helmet hat puncher to help with his toe nails. Review of Systems A complete review of systems was performed. Pertinent positives are noted above. All other systems are negative. Vital Signs Last 8 Hrs Date Time Temp Pulse Resp B/P (MAP) Pulse Ox O2 Delivery O2 Flow Rate FiO2 05/16/17 11:37 36.9 80 16 121/67 (85) 95 05/16/17 08:30 Room Air 05/16/17 07:45 36.8 83 16 110/59 (76) 93 Last Recorded Weight Weight (Kilograms): 61.300 Physical Exam General Appearance: no apparent distress, + thin Head: normocephalic, atraumatic Eyes: normal inspection, sclerae normal ENT: normal ENT inspection, pharynx normal Neck: supple, no JVD Respiratory/Chest: lungs clear, no respiratory distress, no accessory muscle use Cardiovascular: regular rate, rhythm, no gallop Back: no CVA tenderness Abdomen/GI: non tender, soft Extremities/Musculoskelatal: normal inspection, no pedal edema Neurologic/Psych: alert, normal mood/affect Social History Drug Use: none Marital Status: Housing Status: lives with family (lives with son) 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 05/16/17 05:21 Calcium Level 7.7 mg/dl (8.5-10.1) Phosphorus Level 2.7 mg/dl (2.5-4.9) Magnesium Level 1.8 mg/dl (1.8-2.4) Allergies Coded Allergies: No Known Allergies (Unverified , 03/15/17) Medications Current Inpatient Medications Medications (Trade) Dose Ordered Sig/Jonathan Route Start Time Stop Time Status Last Admin Dose Admin Tamsulosin HCl (Flomax Cap) 0.8 mg HS PO 03/15/17 21:00 06/09/17 20:59 05/15/17 20:45 0.8 MG Ranitidine HCl (zANTac TAB) 300 mg HS PO 03/15/17 21:00 06/09/17 20:59 05/15/17 20:45 300 MG Calcium Carbonate (Tums Chew Tab) 2,000 mg QID PO 03/16/17 17:00 06/09/17 16:59 Future hold 05/16/17 08:59 2,000 MG Potassium/ Phosphorus/Sodium (Phospha 250 Neutral 155-852-130 Mg) 2 tab QID PO 04/10/17 17:00 06/09/17 16:59 05/16/17 08:59 2 TAB Ergocalciferol (Vitamin D Cap) 50,000 interunit DAILY PO 04/24/17 09:00 05/24/17 08:59 Future hold 05/16/17 08:59 50,000 INTERUNIT Magnesium Oxide (Mag-Ox Tab) 400 mg BID PO 04/26/17 09:00 05/26/17 08:59 05/16/17 08:58 400 MG Pantoprazole Sodium (Protonix Tab) 40 mg QAM PO 05/11/17 09:00 06/10/17 08:59 05/16/17 08:59 40 MG Docusate Sodium (coLACE CAP) 100 mg BID PO 05/10/17 21:00 06/09/17 20:59 05/16/17 08:59 100 MG Calcitriol (Rocaltrol Cap) 10 mcg QAM PO 05/10/17 09:00 06/09/17 08:59 05/16/17 08:58 10 MCG Calcium Carbonate (oS-Randy 500 TAB) 1,250 mg QID PO 05/10/17 13:00 06/09/17 12:59 05/16/17 08:58 1,250 MG Hydrochlorothiazide (Hydrochlorothiazide Tab) 25 mg QAM PO 05/11/17 09:00 06/10/17 08:59 05/16/17 08:58 25 MG Acetaminophen (Tylenol Tab) 650 mg Q6H PRN PO 05/14/17 00:00 06/13/17 00:00 05/14/17 07:49 650 MG Neomycin/ Polymyxin/ Bacitracin (Neosporin Oint) 1 appln Q8 EXT 05/14/17 14:00 06/13/17 13:59 05/16/17 05:34 1 APPLN Impression (1) Hypocalcemia (2) Prostate cancer (3) Hypertension Mr. 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 He developed severe hypocalcemia following Denosumab infusion. Renal function is normal. Calcitriol is being provided. The patient is taking PO calcium in the form of TUMs and Oscal. Aggressive replacement with PO and IV calcium continues. The patient has had associated hypomagnesemia. He is tolerating oral magnesium replacement. He also remains on a phosphorus supplement. He has hearing loss and joint pains which may be associated with calcium infusions. These are stable or improving. He is due to have a helmet hat puncher help with his toenails which I would like to arrange for him while he is inpatient. Tolerating calcium infusion well. Recommendations -- IV calcium gluconate 10 grams today to be infused over 5 hours -- Serum calcium slightly low but patient asymptomatic. -- Hydrochlorothiazide 25 milligram p.o. daily, continue as tolerated (noted BP is slightly low) -- Continue Mg Oxide 400 mg BID -- He remains on calcitriol to 10 mcg daily, OsCal 2500 QID, TUMS 2 grams TID -- Monitor serum calcium daily, monitor magnesium, phosphorus regularly
[2017-05-16 15:17] VITALS: BP 115/69; PULSE 84; TEMP 36.8; O2SAT 95
[2017-05-16 19:17] VITALS: BP 111/61; PULSE 86; TEMP 37.4; O2SAT 95
[2017-05-16] MEDS: RANITIDINE HCL 150 MG TAB PO SCH (20:46)
[2017-05-16] MEDS: TAMSULOSIN HCL 0.4 MG CAP PO SCH (20:47)
--- NOTE | 2017-05-16 21:43 | Hospitalist Progress Note ---
Hospitalist Progress Note Date of Service May 16, 2017. (Kuldip Mg CRNP) Subjective Pt evaluation today including: conversation w/ patient, physical exam, chart review, lab review, review of studies, review of inpatient medication list Pain: denies pain PO Intake: tolerating PO Voiding: bey catheter in place main complaint is not being able to hear R>L. No chest pain, no shortness of breath (Kuldip Mg CRNP) Medications reviewed (Kuldip Mg CRNP) Objective Vital Signs Date Time Temp Pulse Resp B/P (MAP) Pulse Ox O2 Delivery O2 Flow Rate FiO2 05/16/17 11:37 36.9 80 16 121/67 (85) 95 05/16/17 08:30 Room Air 05/16/17 07:45 36.8 83 16 110/59 (76) 93 05/16/17 00:02 37.2 84 18 90/41 (57) 94 Room Air 05/16/17 00:00 Room Air 05/15/17 19:30 37.4 82 20 101/53 (69) 93 05/15/17 16:00 Room Air 05/15/17 15:50 37.0 83 20 133/66 (88) 95 (Kuldip Mg CRNP) Physical Exam Eyes: normal inspection ENT: + pertinent finding (cerumen impaction bilateral ears) Neck: supple, no JVD Respiratory/Chest: chest non-tender, lungs clear, no respiratory distress Cardiovascular: regular rate, rhythm, no edema, no JVD, no murmur Abdomen: normal bowel sounds, non tender, soft Extremities: normal range of motion, non-tender, normal inspection, no pedal edema Neurologic/Psychiatric: alert, oriented x 3 Skin: normal color, warm/dry (Kuldip Mg CRNP) Laboratory Results Last 24 Hours Test 05/16/17 05:21 Calcium Level 7.7 mg/dl Phosphorus Level 2.7 mg/dl Magnesium Level 1.8 mg/dl (Kuldip Mg CRNP) Assessment and Plan 81 year old man with a history of prostate cancer and osteoblastic mets admitted because of severe hypocalcemia associated with with fatigue and found to have severe hypocalcemia secondary to his Denosumab (03/02/2017) 1. severe hypocalcemia secondary to Denosumab therapy(03/02/2017) - appreciate nephrology input. 10g Ca Gluconate infusion again today, calcium level was 7.7 Need to watch side effect from high volume calcium infusion, currently running signs include decreased hearing, and joint pain Continue hydrochlorothiazide 25 milligram p.o. daily, Mg Oxide 400 mg BID, Continue Calcitriol 10 mcg daily, OsCal 2500 QID, TUMS 2 grams TID 2. Decreased bilateral hearing, likely secondary to cerumen impaction, continue Debrox eardrops. May need wax manually removed. - concerned hearing loss may be associated with otosclerosis, need to have a BASELINE audiometry to follow the possible problem. 3. A few skin lesions in the scalp, there is no obvious signs of melanoma/ ulceration, - advised patient to follow-up with own certified legal investigator after discharge from hospital 4. disposition - patient still requiring large amounts of IV Calcium along with oral agents. Continued [facility] stay due to: multiple IV medications needed Discharge planning: uncertain (Kuldip Mg ., ALMA ROSA) ALMA ROSA Physician Supervision Note: I interviewed and examined the patient. Discussed with Kuldip ST and agree with findings and plan as documented in the note. Any exceptions or clarifications are listed here: None This pt is doing well, still with low calcium, did have right ear canal irrigated with delivery of large cerumen impaction pt has better hearing acuity vs stable car is regular lungs clear after verbal consent, right ear canal irrigated approximately 9 times with 40 ml luke warm tapwater, with good results or large cerumen pt did well continue to [facility] calcium replacement Documented By: Joe Moran (Joe Moran M.D.)
[2017-05-16 23:43] VITALS: BP 107/59; PULSE 83; TEMP 37.1; O2SAT 95
[2017-05-17 03:59] VITALS: BP 98/57; PULSE 94; TEMP 37.1; O2SAT 94
[2017-05-17] MEDS: NEOMYCIN/POLYMYX/BACITR OINT 15 GM TUBE EXT SCH ×3 (05:49→21:43)
[2017-05-17 07:28] VITALS: BP 98/55; PULSE 98; TEMP 37; O2SAT 96
[2017-05-17] MEDS: CALCITRIOL 0.5 MCG CAP PO SCH (08:07)
[2017-05-17] MEDS: ERGOCALCIFEROL 50,000 INTER.UNIT CAP PO SCH (08:07)
[2017-05-17] MEDS: CALCIUM CARBONATE 1250MG TAB PO SCH ×4 (08:07→21:41)
[2017-05-17] MEDS: MAGNESIUM OXIDE 400 MG TAB PO SCH ×2 (08:07→21:41)
[2017-05-17] MEDS: HYDROCHLOROTHIAZIDE 50 MG TAB PO SCH (08:07)
[2017-05-17] MEDS: PANTOprazole SOD 40 MG TAB PO SCH (08:07)
[2017-05-17] MEDS: DOCUSATE SODIUM 100 MG CAP PO SCH ×2 (08:07→21:40)
[2017-05-17] MEDS: CALCIUM CARBONATE 500 MG CHEWABLE PO SCH ×4 (08:08→21:42)
[2017-05-17] MEDS: POT PHOSPHATE MONOBASIC W/ SOD TAB PO SCH ×4 (08:08→21:41)
--- NOTE | 2017-05-17 10:36 | Nephrology Progress Note ---
Nephrology Progress Note Date of Service May 17, 2017. Chief Complaint Hypocalcemia Subjective No acute events overnight. Paul feels well. He denies weakness. He denies muscle fasciculations or cramps. Appetite is good. Activity tolerance is stable. He reports some evidence of a yeast infection on his penis. Navel erythema and odor are improving. His toenails have become increasingly uncomfortably. He asked if a velvet cutter is available. Hearing loss improved slightly after having ears flushed yesterday. Review of Systems A complete review of systems was performed. Pertinent positives are noted above. All other systems are negative. Vital Signs Last 8 Hrs Date Time Temp Pulse Resp B/P (MAP) Pulse Ox O2 Delivery O2 Flow Rate FiO2 05/17/17 08:00 Room Air 05/17/17 07:28 37.0 98 20 98/55 (69) 96 Room Air 05/17/17 03:59 37.1 94 18 98/57 (71) 94 Room Air Last Recorded Weight Weight (Kilograms): 61.300 Physical Exam General Appearance: WD/WN, no apparent distress, + thin Head: normocephalic, atraumatic Eyes: normal inspection ENT: normal ENT inspection, pharynx normal Neck: supple, no JVD Respiratory/Chest: lungs clear, normal breath sounds Cardiovascular: regular rate, rhythm, no gallop Back: no CVA tenderness Abdomen/GI: non tender, soft Extremities/Musculoskelatal: normal inspection, no pedal edema Neurologic/Psych: alert, normal mood/affect Social History Drug Use: none Marital Status: Housing Status: lives with family (lives with son) 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 05/17/17 05:36 Calcium Level 7.7 mg/dl (8.5-10.1) Allergies Coded Allergies: No Known Allergies (Unverified , 03/15/17) Medications Current Inpatient Medications Medications (Trade) Dose Ordered Sig/Jonathan Route Start Time Stop Time Status Last Admin Dose Admin Tamsulosin HCl (Flomax Cap) 0.8 mg HS PO 03/15/17 21:00 06/09/17 20:59 05/16/17 20:47 0.8 MG Ranitidine HCl (zANTac TAB) 300 mg HS PO 03/15/17 21:00 06/09/17 20:59 05/16/17 20:46 300 MG Calcium Carbonate (Tums Chew Tab) 2,000 mg QID PO 03/16/17 17:00 06/09/17 16:59 Future hold 05/17/17 08:08 2,000 MG Potassium/ Phosphorus/Sodium (Phospha 250 Neutral 155-852-130 Mg) 2 tab QID PO 04/10/17 17:00 06/09/17 16:59 05/17/17 08:08 2 TAB Ergocalciferol (Vitamin D Cap) 50,000 interunit DAILY PO 04/24/17 09:00 05/24/17 08:59 Future hold 05/17/17 08:07 50,000 INTERUNIT Magnesium Oxide (Mag-Ox Tab) 400 mg BID PO 04/26/17 09:00 05/26/17 08:59 05/17/17 08:07 400 MG Pantoprazole Sodium (Protonix Tab) 40 mg QAM PO 05/11/17 09:00 06/10/17 08:59 05/17/17 08:07 40 MG Docusate Sodium (coLACE CAP) 100 mg BID PO 05/10/17 21:00 06/09/17 20:59 05/17/17 08:07 100 MG Calcitriol (Rocaltrol Cap) 10 mcg QAM PO 05/10/17 09:00 06/09/17 08:59 05/17/17 08:07 10 MCG Calcium Carbonate (oS-Randy 500 TAB) 1,250 mg QID PO 05/10/17 13:00 06/09/17 12:59 05/17/17 08:07 1,250 MG Hydrochlorothiazide (Hydrochlorothiazide Tab) 25 mg QAM PO 05/11/17 09:00 06/10/17 08:59 05/17/17 08:07 25 MG Acetaminophen (Tylenol Tab) 650 mg Q6H PRN PO 05/14/17 00:00 06/13/17 00:00 05/14/17 07:49 650 MG Neomycin/ Polymyxin/ Bacitracin (Neosporin Oint) 1 appln Q8 EXT 05/14/17 14:00 06/13/17 13:59 05/17/17 05:49 1 APPLN Heparin Sodium (Porcine) (Heparin 10 Unit/ ml 5 ml Flush) 1 ml PRN PRN FLUSH 05/16/17 13:30 06/15/17 13:29 05/17/17 06:23 1 ML Impression (1) Hypocalcemia (2) Prostate cancer (3) Hypertension Mr. 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 He developed severe hypocalcemia following Denosumab infusion. Renal function is normal. Calcitriol is being provided. The patient is taking PO calcium in the form of TUMs and Oscal. Aggressive replacement with PO and IV calcium continues. The patient has had associated hypomagnesemia. He is tolerating oral magnesium replacement. He also remains on a phosphorus supplement. He has hearing loss and joint pains which may be associated with calcium infusions. Podiatry consult was placed to help with ingrown toenails. Tolerating calcium infusion well. Serum calcium stable though slightly low with 10 grams daily. Recommendations -- Will recheck calcium this afternoon and provide additional IV calcium as needed -- Bill has been able to maintain an acceptable calcium level with 10 grams infused over 5 hours daily -- Hydrochlorothiazide 25 milligram p.o. daily, continue as tolerated (noted BP is slightly low) -- Continue Mg Oxide 400 mg BID -- He remains on calcitriol to 10 mcg daily, OsCal 2500 QID, TUMS 2 grams TID -- Monitor serum calcium daily, monitor magnesium, phosphorus regularly
[2017-05-17] MEDS ORDERED: NYSTATIN OINT 15 GM TUBE EXT PRN (10:45)
--- NOTE | 2017-05-17 13:07 | Hospitalist Progress Note ---
Hospitalist Progress Note Date of Service May 17, 2017. (Kuldip Mg CRNP) Subjective Pt evaluation today including: conversation w/ patient, physical exam, chart review, lab review, review of studies, review of inpatient medication list Pain: denies any pain PO Intake: tolerating PO Voiding: bey catheter in place feels about the same - hearing better since wax removed yesterday. Really has no complaints (Kuldip Mg CRNP) Medications reviewed (Kuldip Mg CRNP) Objective Vital Signs Date Time Temp Pulse Resp B/P (MAP) Pulse Ox O2 Delivery O2 Flow Rate FiO2 05/17/17 08:00 Room Air 05/17/17 07:28 37.0 98 20 98/55 (69) 96 Room Air 05/17/17 03:59 37.1 94 18 98/57 (71) 94 Room Air 05/17/17 00:00 Room Air 05/16/17 23:43 37.1 83 18 107/59 (75) 95 Room Air 05/16/17 20:00 Room Air 05/16/17 19:17 37.4 86 18 111/61 (78) 95 Room Air 05/16/17 16:00 Room Air 05/16/17 15:17 36.8 84 18 115/69 (84) 95 Room Air (Kuldip Mg CRNP) Physical Exam General Appearance: no apparent distress Eyes: PERRL, sclerae normal ENT: + pertinent finding (hearing better than yesterday - not speaking as loud) Neck: supple, no JVD Respiratory/Chest: lungs clear, normal breath sounds Cardiovascular: regular rate, rhythm, no edema, no JVD Abdomen: normal bowel sounds, non tender, soft Extremities: normal range of motion, non-tender, normal inspection, no pedal edema Neurologic/Psychiatric: alert, normal mood/affect, oriented x 3 Skin: normal color, warm/dry, no rash (Kuldip Mg CRNP) Laboratory Results Last 24 Hours Test 05/17/17 05:36 Calcium Level 7.7 mg/dl (Kuldip Mg CRNP) Assessment and Plan 81 year old man with a history of prostate cancer and osteoblastic mets admitted because of severe hypocalcemia associated with Denosumab (03/02/2017) therapy. 1. severe hypocalcemia secondary to Denosumab therapy(03/02/2017) - appreciate nephrology input. calcium level was 7.7 again today. Need to watch side effect from high volume calcium infusion, currently running signs include decreased hearing, and joint pain Continue hydrochlorothiazide 25 milligram p.o. daily, Mg Oxide 400 mg BID, Continue Calcitriol 10 mcg daily, OsCal 2500 QID, TUMS 2 grams TID 2. Decreased bilateral hearing, likely secondary to cerumen impaction, continue Debrox eardrops. May need wax manually removed. - concerned hearing loss may be associated with otosclerosis, need to have a BASELINE audiometry to follow the possible problem. 3. A few skin lesions in the scalp, there is no obvious signs of melanoma/ ulceration, - advised patient to follow-up with own plate painter apprentice after discharge from hospital 4. disposition - patient still requiring large amounts of IV Calcium along with oral agents. Continued [facility] stay due to: multiple IV medications needed Discharge planning: uncertain Continued [facility] stay due to: multiple IV medications needed Discharge planning: home with home health (Kuldip Mg, ALMA ROSA) ALMA ROSA Physician Supervision Note: I interviewed and examined the patient. Discussed with Kuldip ST and agree with findings and plan as documented in the note. Any exceptions or clarifications are listed here: None This pt had episode of dizziness with standing and nausea now resolved, still with low calcium, vs stable car is regular lungs clear continue to maintain calcium replacement that seems to be caused by chemotherapy induced hypocalcemia Documented By: Joe Moran (Joe Moran M.D.)
[2017-05-17 13:54] LABS: ALBUMIN 3.4 gm/dl (3.4-5.0); CALCIUM 7.5 mg/dl (8.5-10.1); CREATININE 1.38 mg/dl (0.60-1.40); PHOSPHORUS 4.5 mg/dl (2.5-4.9)
[2017-05-17 15:21] VITALS: BP 110/58; PULSE 76; TEMP 36.9; O2SAT 96
--- NOTE | 2017-05-17 20:22 | CONSULTATION REPORT ---
DATE OF CONSULTATION: 05/17/2017 HISTORY OF PRESENT ILLNESS: An 81-year-old male seen at bedside due to painful right hallux. He has had a prolonged admission secondary to osteoblastic mets from prostate cancer. He notes no previous foot problems. His pain focused on the right foot is focused around the callus and a large "toenail problem." Denies redness and drainage. Notes he is unable to cut the nails himself due to the severe deformity that is present. Pain in trying ambulating at all times specifically with shoe gear. PAST MEDICAL HISTORY: Prostate cancer, osteoblastic mets, hypercalcemia, hypertension, intractable nausea and vomiting with unintentional weight loss, skin cancer. MEDICATIONS: Per chart. PHYSICAL EXAMINATION: VITAL SIGNS: Stable and afebrile. LOWER EXTREMITIES: DP 1/4, PT 1/4. Absence of digital hair is noted. DERMATOLOGIC: Hypertrophic granulation tissue with hyperkeratotic formation plantar medial first MTPJ. Enlarged prominence over the first MTPJ bilaterally with mild redness. Elongated and mycotic, dystrophic nails most severely affecting his right hallux nail. Pain on dorsal pressure. Incurvation bilateral borders. Pain on dorsal pressure of the nail with severe callus nail groove secondary to gryphotic formation. No active drainage. No purulence is noted. NEUROLOGIC: Epicritic sensation grossly intact. MUSCULOSKELETAL: Enlarged dorsomedial eminence first MTPJ bilaterally. Hallux underlying second digit bilaterally. IMPRESSION: 1. Metatarsalgia secondary to painful lesions. 2. Paronychia bilateral borders, right hallux now. 3. Painful onychomycosis. 4. Human immunodeficiency virus. 5. Prostate cancer with osteoblastic metastasis. TREATMENT: 1. Sharp debridement with 3:12 blade and tissue nippers to a level of tolerance plantar medial aspect first MTPJ. No dressing was applied. No bleeding occurred. No anesthesia was used. The tolerated the pain of procedure without anesthetic. Partial nail avulsion was performed bilateral borders, right hallux nail with a nail splitter and 3 11 blade in proximal and distal fashion. No anesthesia was used. The procedure was done without anesthesia. No dressing was applied. No bleeding occurred. Consider matrixectomy and/or total nail avulsion in the future if the problem continues. 2. Debridement of mycotic nails 1 through 5 bilaterally with nail nippers. 3. Continue accommodative shoe as tolerated. 4. Reconsult as needed.
[2017-05-17] MEDS: TAMSULOSIN HCL 0.4 MG CAP PO SCH (21:40)
[2017-05-17] MEDS: RANITIDINE HCL 150 MG TAB PO SCH (21:43)
[2017-05-17 23:42] VITALS: BP 105/50; PULSE 88; TEMP 36.8; O2SAT 94
[2017-05-18] MEDS: NEOMYCIN/POLYMYX/BACITR OINT 15 GM TUBE EXT SCH ×3 (05:37→20:44)
[2017-05-18 06:20] LABS: CALCIUM 7.4 mg/dl (8.5-10.1)
[2017-05-18 07:42] VITALS: BP 105/46; PULSE 87; TEMP 36.8; O2SAT 93
--- NOTE | 2017-05-18 09:29 | Nephrology Progress Note ---
Nephrology Progress Note Date of Service May 18, 2017. Chief Complaint Hypocalcemia, metastatic prostate cancer Subjective Mr. Greene was seen & examined in his hospital room this morning. He reports that his hearing is improved. He remains active by ambulating in the hallway each day. He did not require IV Calcium infusion yesterday Review of Systems Constitutional: No fever Cardiovascular: No chest pain Respiratory: No dyspnea at rest Abdomen: No pain, No nausea, No vomiting Extremities: No leg edema A complete review of systems was performed. Pertinent positives are noted above. All other systems are negative. Vital Signs Last 8 Hrs Date Time Temp Pulse Resp B/P (MAP) Pulse Ox O2 Delivery O2 Flow Rate FiO2 05/18/17 07:42 36.8 87 16 105/46 (65) 93 Room Air Last Recorded Weight Weight (Kilograms): 60.600 Physical Exam General Appearance: no apparent distress Head: normocephalic, atraumatic Eyes: PERRL, EOMI Neck: no adenopathy Respiratory/Chest: lungs clear, no respiratory distress Cardiovascular: regular rate, rhythm Abdomen/GI: normal bowel sounds, non tender, soft Extremities/Musculoskelatal: no calf tenderness, no pedal edema Neurologic/Psych: alert, oriented x 3 Social History Drug Use: none Marital Status: Housing Status: lives with family (lives with son) 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 05/17/17 13:16 Test 05/17/17 13:16 05/17/17 20:58 05/18/17 05:25 Anion Gap 7.0 mmol/L (3-11) Est Creatinine Clear Calc Drug Dose 35.2 ml/min Estimated GFR () 54.4 Estimated GFR (Non- 46.9 BUN/Creatinine Ratio 20.8 (10-20) Calcium Level 7.5 mg/dl (8.5-10.1) 8.4 mg/dl (8.5-10.1) 7.4 mg/dl (8.5-10.1) Phosphorus Level 4.5 mg/dl (2.5-4.9) 3.0 mg/dl (2.5-4.9) Albumin 3.4 gm/dl (3.4-5.0) Magnesium Level 1.9 mg/dl (1.8-2.4) Allergies Coded Allergies: No Known Allergies (Unverified , 03/15/17) Medications Current Inpatient Medications Medications (Trade) Dose Ordered Sig/Jonathan Route Start Time Stop Time Status Last Admin Dose Admin Tamsulosin HCl (Flomax Cap) 0.8 mg HS PO 03/15/17 21:00 06/09/17 20:59 05/17/17 21:40 0.8 MG Ranitidine HCl (zANTac TAB) 300 mg HS PO 03/15/17 21:00 06/09/17 20:59 05/17/17 21:43 300 MG Calcium Carbonate (Tums Chew Tab) 2,000 mg QID PO 03/16/17 17:00 06/09/17 16:59 Future hold 05/17/17 21:42 2,000 MG Potassium/ Phosphorus/Sodium (Phospha 250 Neutral 155-852-130 Mg) 2 tab QID PO 04/10/17 17:00 06/09/17 16:59 05/17/17 21:41 2 TAB Ergocalciferol (Vitamin D Cap) 50,000 interunit DAILY PO 04/24/17 09:00 05/24/17 08:59 Future hold 05/17/17 08:07 50,000 INTERUNIT Magnesium Oxide (Mag-Ox Tab) 400 mg BID PO 04/26/17 09:00 05/26/17 08:59 05/17/17 21:41 400 MG Pantoprazole Sodium (Protonix Tab) 40 mg QAM PO 05/11/17 09:00 06/10/17 08:59 05/17/17 08:07 40 MG Docusate Sodium (coLACE CAP) 100 mg BID PO 05/10/17 21:00 06/09/17 20:59 05/17/17 21:40 100 MG Calcitriol (Rocaltrol Cap) 10 mcg QAM PO 05/10/17 09:00 06/09/17 08:59 05/17/17 08:07 10 MCG Calcium Carbonate (oS-Randy 500 TAB) 1,250 mg QID PO 05/10/17 13:00 06/09/17 12:59 05/17/17 21:41 1,250 MG Hydrochlorothiazide (Hydrochlorothiazide Tab) 25 mg QAM PO 05/11/17 09:00 06/10/17 08:59 05/17/17 08:07 25 MG Acetaminophen (Tylenol Tab) 650 mg Q6H PRN PO 05/14/17 00:00 06/13/17 00:00 05/14/17 07:49 650 MG Neomycin/ Polymyxin/ Bacitracin (Neosporin Oint) 1 appln Q8 EXT 05/14/17 14:00 06/13/17 13:59 05/18/17 05:37 1 APPLN Heparin Sodium (Porcine) (Heparin 10 Unit/ ml 5 ml Flush) 1 ml PRN PRN FLUSH 05/16/17 13:30 06/15/17 13:29 05/18/17 05:36 1 ML Nystatin (Mycostatin Oint) 1 appln PRN PRN EXT 05/17/17 10:45 06/16/17 10:44 Impression (1) Hypocalcemia (2) Prostate cancer (3) Hypertension Mr. 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 He developed severe hypocalcemia following Denosumab infusion. Renal function is normal. Calcitriol is being provided. The patient is taking PO calcium in the form of TUMs and Oscal. Aggressive replacement with PO and IV calcium continues. The patient has had associated hypomagnesemia. He is tolerating oral magnesium replacement. He also remains on a phosphorus supplement. He has hearing loss and joint pains which may be associated with calcium infusions. Podiatry consult was placed to help with ingrown toenails. Tolerating calcium infusion well. Serum calcium stable though slightly low with 10 grams daily. Recommendations -- Corrected serum calcium is ~ 7.8. Mr. Greene is asymptomatic. Hold IV infusion this am and monitor -- Will recheck serum calcium this afternoon -- Hydrochlorothiazide 25 milligram p.o. daily, continue as tolerated (noted BP is slightly low) -- Continue Mg Oxide 400 mg BID -- He remains on calcitriol to 10 mcg daily, OsCal 2500 QID, TUMS 2 grams TID -- Monitor serum calcium daily, monitor magnesium, phosphorus regularly
[2017-05-18] MEDS: MAGNESIUM OXIDE 400 MG TAB PO SCH ×2 (09:36→20:46)
[2017-05-18] MEDS: DOCUSATE SODIUM 100 MG CAP PO SCH ×2 (09:36→20:45)
[2017-05-18] MEDS: ERGOCALCIFEROL 50,000 INTER.UNIT CAP PO SCH (09:36)
[2017-05-18] MEDS: PANTOprazole SOD 40 MG TAB PO SCH (09:36)
[2017-05-18] MEDS: HYDROCHLOROTHIAZIDE 50 MG TAB PO SCH (09:36)
[2017-05-18] MEDS: CALCITRIOL 0.5 MCG CAP PO SCH (09:37)
[2017-05-18] MEDS: CALCIUM CARBONATE 500 MG CHEWABLE PO SCH ×5 (09:37→23:00)
[2017-05-18] MEDS: CALCIUM CARBONATE 1250MG TAB PO SCH ×4 (09:39→20:44)
[2017-05-18] MEDS: POT PHOSPHATE MONOBASIC W/ SOD TAB PO SCH ×4 (09:39→20:44)
[2017-05-18] MEDS ORDERED: ESCITALOPRAM OXALATE 10 MG TAB PO SCH (10:15)
[2017-05-18 13:15] LABS: CALCIUM 7.6 mg/dl (8.5-10.1); CREATININE 1.36 mg/dl (0.60-1.40); POTASSIUM 3.8 mmol/L (3.5-5.1)
--- NOTE | 2017-05-18 14:32 | Hospitalist Progress Note ---
Hospitalist Progress Note Date of Service May 18, 2017. (Kuldip Mg CRNP) Subjective Pt evaluation today including: conversation w/ patient, physical exam, lab review Pain: toes sore PO Intake: tolerating PO Voiding: bey catheter in place no real complaints today - toes are sore from podiatry procedures - denies dizziness. He feels difficulty hearing has improved with cerumen removal. (Kuldip Mg CRNP) Medications reviewed (Kuldip Mg CRNP) Objective Vital Signs Date Time Temp Pulse Resp B/P (MAP) Pulse Ox O2 Delivery O2 Flow Rate FiO2 05/18/17 08:00 Room Air 05/18/17 07:42 36.8 87 16 105/46 (65) 93 Room Air 05/18/17 00:00 Room Air 05/17/17 23:42 36.8 88 18 105/50 (68) 94 Room Air 05/17/17 16:00 Room Air 05/17/17 15:21 36.9 76 18 110/58 (75) 96 Room Air (Kuldip Mg CRNP) Physical Exam General Appearance: no apparent distress Eyes: normal inspection Neck: supple Respiratory/Chest: lungs clear, normal breath sounds Cardiovascular: regular rate, rhythm, no edema, no gallop Abdomen: normal bowel sounds, non tender, soft Extremities: non-tender, no pedal edema Skin: normal color, warm/dry (Kuldip Mg CRNP) Laboratory Results Last 24 Hours Test 05/17/17 20:58 05/18/17 05:25 05/18/17 12:44 Calcium Level 8.4 mg/dl 7.4 mg/dl 7.6 mg/dl Phosphorus Level 3.0 mg/dl Magnesium Level 1.9 mg/dl Sodium Level 133 mmol/L Potassium Level 3.8 mmol/L Chloride Level 101 mmol/L Carbon Dioxide Level 25 mmol/L Anion Gap 7.0 mmol/L Blood Urea Nitrogen 31 mg/dl Creatinine 1.36 mg/dl Est Creatinine Clear Calc Drug Dose 35.3 ml/min Estimated GFR () 55.4 Estimated GFR (Non- 47.8 BUN/Creatinine Ratio 22.6 Random Glucose 142 mg/dl (Kuldip Mg CRNP) Assessment and Plan 81 year old man with a history of prostate cancer and osteoblastic mets admitted because of severe hypocalcemia associated with Denosumab (03/02/2017) therapy. 1. severe hypocalcemia secondary to Denosumab therapy(03/02/2017) - appreciate nephrology input. calcium level was 8.4 last evening, 7.4 this AM and 7.6 this afternoon. - IV Calcium on hold for today - repeat CA in the am. Need to watch side effect from high volume calcium infusion, currently running signs include decreased hearing, and joint pain Continue hydrochlorothiazide 25 milligram p.o. daily, Mg Oxide 400 mg BID, Continue Calcitriol 10 mcg daily, OsCal 2500 QID, TUMS 2 grams TID 2. Decreased bilateral hearing, likely secondary to cerumen impaction, continue Debrox eardrops. May need wax manually removed. - concerned hearing loss may be associated with otosclerosis, need to have a BASELINE audiometry to follow the possible problem. 3. A few skin lesions in the scalp, there is no obvious signs of melanoma/ ulceration, - advised patient to follow-up with own rn emergency room after discharge from hospital 4. Ingrown toe nail - seen by podiatry yesterday for debridement of mycotic nails 4. disposition - uncertain - will need CA stable before can safely discharge Continued [facility] stay due to: multiple IV medications needed Discharge planning: uncertain (Kuldip Mg, ALMA ROSA) [place] Physician Supervision Note: I interviewed and examined the patient. Discussed with Kuldip ST and agree with findings and plan as documented in the note. Any exceptions or clarifications are listed here: None This pt had episode of dizziness with standing and nausea now resolved, still with low calcium, vs stable car is regular lungs clear continue to maintain calcium replacement that seems to be caused by chemotherapy induced hypocalcemia, I have increased oral calcium and stopped iv with nephrology oversight. Depression will add Remeron to aid in depression, appetite and sleep Documented By: Joe Moran (Joe Moran M.D.)
[2017-05-18 15:15] VITALS: BP 127/69; PULSE 76; TEMP 36.9; O2SAT 94
[2017-05-18 19:09] VITALS: BP 120/63; PULSE 63; TEMP 36.2; O2SAT 94
[2017-05-18] MEDS: TAMSULOSIN HCL 0.4 MG CAP PO SCH (20:44)
[2017-05-18] MEDS: RANITIDINE HCL 150 MG TAB PO SCH (20:45)
[2017-05-18] MEDS: MIRTAZAPINE TAB 15 MG TAB PO SCH (20:50)
[2017-05-18 23:41] VITALS: BP 104/55; PULSE 82; TEMP 36.4; O2SAT 95
[2017-05-19 01:27] LABS: HEMATOCRIT 33.7 % (42-52); HEMOGLOBIN 11.9 g/dL (14.0-18.0); MEAN CELL VOLUME 86.2 fL (80-100); MEAN CORPUSCULAR HEMOGLOBIN 30.4 pg (25-34); MEAN CORPUSCULAR HGB CONC 35.3 g/dl (32-36); MEAN PLATELET VOLUME 7.9 fL (7.4-10.4); PLATELET COUNT 193 K/uL (130-400); RED CELL DISTRIBUTION WIDTH CV 14.3 % (11.5-14.5); RED CELL DISTRIBUTION WIDTH SD 45.1 fL (36.4-46.3); WHITE BLOOD COUNT 9.55 K/uL (4.8-10.8)
[2017-05-19] MEDS ORDERED: CALCIUM GLUCONATE 10% 1,000 MG in SODIUM CHLORIDE 0.9% 50ML 50 ML IV STA (01:31)
--- NOTE | 2017-05-19 01:57 | Critical Care Progress Note ---
Critical Care Progress Note Date of Service May 19, 2017. Critical Care Progress Note Responded to a CODE KATY called to room 283-1. Upon arrival, the patient was under the attention of nursing staff in his bed while laying on his RIGHT side. Apparently, per nursing staff, the patient ambulated to the nurses station while holding his Berkowitz catheter bag. This is not an atypical occurrence for the patient. She reports that he looked very pale, and she felt as though his knees began to buckle. He was helped to a chair and was taken back to his room. It was never felt as though the patient lost complete consciousness. Upon my evaluation, the patient is awake, alert, and oriented. He is noticeably hard of hearing, however nursing staff reports that this is related to recent cerumen impaction removal as well as concerns for calcium toxicity. Patient has apparently been in the facility for greater than 2 months for ongoing hypoglycemia amongst other issues. His blood pressure was found to be in the 1 teens over 70s with a pulse ox of high 100s. Heart rate was in the 70s. EKG was obtained and demonstrated sinus rhythm with occasional PVCs at a rate of 74 bpm. QTc was slightly prolongated at 483 ms. BRIEF EXAM: VITAL SIGNS - Vital signs and nursing notes were reviewed. GENERAL - 81-year-old male appearing his stated age who is in no acute distress. Communicates well with provider and answers questions appropriately. HEAD - NC/AT. EYES - PERRL with EOMI bilaterally. Sclera anicteric. MOUTH/OROPHARYNX - Without perioral cyanosis. NECK - Neck with FROM. LUNGS - Chest wall symmetric without accessory muscle use, intercostals retractions, or central cyanosis. Normal vesicular breath sounds CTA B/L. No wheezes, rales, or rhonchi appreciated. CARDIAC - RRR with S1/S2. No murmur, rubs, or gallops appreciated. ABDOMEN - Abdominal contour scaphoid and without pulsations or visible masses. BS normoactive all four quadrants. No tenderness, palpable masses, hepatosplenomegaly, or ascites noted. EXTREMITIES - +5/5 strength noted in UE/LE bilaterally. NEUROLOGIC - Cranial nerves II through XII grossly intact. PSYCH - A&Ox3 and cooperates fully with examiner. Pt is very pleasant and interacts well with examiner. Given the patient's current presentation, I did elect to reorder patient's labs including ionized calcium given his recent deficiencies. His EKG is otherwise unremarkable despite a slight QTC prolongation. Chest x-ray demonstrates no acute infiltrative changes or cardiopulmonary processes per my interpretation. Patient is awake, alert, and oriented. He has no focal neurological deficits. I do not feel that imaging modalities of the head are necessary at this point. Regardless, given the patient's recent episode of near syncope, I do feel that it would be prudent for the patient to be placed back on telemetry at least for the time being. student services vice president was present at bedside and will continue with patient care as needed. Please feel free to reach out or consult myself or critical care staff if we can be of any further assistance.
[2017-05-19 02:02] LABS: ALBUMIN 3.5 gm/dl (3.4-5.0); ALKALINE PHOSPHATASE 406 U/L (45-117); ALT/SGPT 16 U/L (12-78); AST/SGOT 19 U/L (15-37); BLOOD UREA NITROGEN 29 mg/dl (7-18); CALCIUM 7.3 mg/dl (8.5-10.1); CARBON DIOXIDE 27 mmol/L (21-32); CKMB 0.7 ng/ml (0.5-3.6); CREATININE 1.27 mg/dl (0.60-1.40); GLUCOSE 113 mg/dl (70-99); PHOSPHORUS 4.5 mg/dl (2.5-4.9); POTASSIUM 3.5 mmol/L (3.5-5.1); SODIUM 135 mmol/L (136-145); TOTAL PROTEIN 7.4 gm/dl (6.4-8.2)
[2017-05-19 04:38] VITALS: BP 121/63; PULSE 77; TEMP 36.9; O2SAT 96
[2017-05-19] MEDS: NEOMYCIN/POLYMYX/BACITR OINT 15 GM TUBE EXT SCH ×3 (05:50→20:52)
[2017-05-19] MEDS: CALCIUM CARBONATE 500 MG CHEWABLE PO SCH ×5 (05:53→21:00)
--- NOTE | 2017-05-19 06:44 | DIAGNOSTIC IMAGING REPORT ---
CHEST ONE VIEW PORTABLE CLINICAL HISTORY: 81 years-old Male presenting with syncope. TECHNIQUE: Portable upright AP view of the chest was obtained. COMPARISON: 04/16/2017. FINDINGS: Left upper extremity PICC remains positioned in the left brachiocephalic vein. Atherosclerosis of the aortic arch. Cardiac silhouette normal in size. No focal opacity. No large effusion or pneumothorax.Redemonstration of heterogeneous sclerosis of the bone consistent with osseous metastatic disease. IMPRESSION: 1. No acute cardiopulmonary disease. Electronically signed by: Mekhi Ni M.D. 05/19/2017 6:43 AM Dictated Date/Time: 05/19/2017 6:41 AM
[2017-05-19 07:25] VITALS: BP 102/44; PULSE 81; TEMP 36.7; O2SAT 97
[2017-05-19] MEDS ORDERED: CALCIUM GLUCONATE IV SCH ×2 (07:30→08:00)
[2017-05-19] MEDS ORDERED: SODIUM CHLORIDE 0.9% IV SCH ×2 (07:30→08:00)
[2017-05-19] MEDS: PANTOprazole SOD 40 MG TAB PO SCH (07:48)
[2017-05-19] MEDS: ERGOCALCIFEROL 50,000 INTER.UNIT CAP PO SCH (07:48)
[2017-05-19] MEDS: CALCIUM CARBONATE 1250MG TAB PO SCH ×4 (07:48→20:49)
[2017-05-19] MEDS: DOCUSATE SODIUM 100 MG CAP PO SCH ×2 (07:48→20:50)
[2017-05-19] MEDS: POT PHOSPHATE MONOBASIC W/ SOD TAB PO SCH ×4 (07:49→20:51)
[2017-05-19] MEDS: CALCITRIOL 0.5 MCG CAP PO SCH (07:50)
[2017-05-19] MEDS: MAGNESIUM OXIDE 400 MG TAB PO SCH ×2 (07:51→20:51)
[2017-05-19] MEDS: HYDROCHLOROTHIAZIDE 50 MG TAB PO SCH (07:51)
--- NOTE | 2017-05-19 09:19 | Nephrology Progress Note ---
Nephrology Progress Note Date of Service May 19, 2017. Chief Complaint Hypocalcemia, metastatic prostate cancer Subjective Mr. Greene suffered a near syncopal event yesterday evening. He did not fall and was placed back in bed. Serum calcium was found to be low at 7.0. IV Calcium Gluconate infusion was restarted. Mr. Greene currently denies angina, dyspnea or muscle cramping. Review of Systems Constitutional: No fever Cardiovascular: No chest pain Respiratory: No dyspnea at rest Abdomen: No pain, No nausea, No vomiting Extremities: No leg edema A complete review of systems was performed. Pertinent positives are noted above. All other systems are negative. Vital Signs Last 8 Hrs Date Time Temp Pulse Resp B/P (MAP) Pulse Ox O2 Delivery O2 Flow Rate FiO2 05/19/17 08:00 Room Air 05/19/17 07:25 36.7 81 16 102/44 (63) 97 Room Air 05/19/17 04:38 36.9 77 18 121/63 (82) 96 Room Air 05/19/17 04:05 Room Air Last Recorded Weight Weight (Kilograms): 60.200 Physical Exam General Appearance: no apparent distress Head: normocephalic, atraumatic Eyes: PERRL Neck: no adenopathy, no JVD Respiratory/Chest: lungs clear Cardiovascular: regular rate, rhythm Abdomen/GI: normal bowel sounds, non tender, soft Genitourinary - Male: + pertinent finding (bey catheter draining clear yellow urine) Extremities/Musculoskelatal: no calf tenderness, no pedal edema Neurologic/Psych: alert, oriented x 3 Social History Drug Use: none Marital Status: Housing Status: lives with family (lives with son) 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 05/19/17 01:13 Red Blood Count 3.91, Mean Corpuscular Volume 86.2, Mean Corpuscular Hemoglobin 30.4, Mean Corpuscular Hemoglobin Concent 35.3, Mean Platelet Volume 7.9 05/18/17 12:44 05/19/17 01:13 Test 05/18/17 12:44 05/19/17 01:05 05/19/17 01:13 05/19/17 01:39 Anion Gap 7.0 mmol/L (3-11) 8.0 mmol/L (3-11) Est Creatinine Clear Calc Drug Dose 35.3 ml/min 37.8 ml/min Estimated GFR () 55.4 60.2 Estimated GFR (Non- 47.8 51.9 BUN/Creatinine Ratio 22.6 (10-20) 23.0 (10-20) Calcium Level 7.6 mg/dl (8.5-10.1) 7.3 mg/dl (8.5-10.1) Bedside Glucose 108 mg/dl (70-99) White Blood Count 9.55 K/uL (4.8-10.8) Red Blood Count 3.91 M/uL (4.7-6.1) Hemoglobin 11.9 g/dL (14.0-18.0) Hematocrit 33.7 % (42-52) Mean Corpuscular Volume 86.2 fL (80-100) Mean Corpuscular Hemoglobin 30.4 pg (25-34) Mean Corpuscular Hemoglobin Concent 35.3 g/dl (32-36) Platelet Count 193 K/uL (130-400) Mean Platelet Volume 7.9 fL (7.4-10.4) RDW Standard Deviation 45.1 fL (36.4-46.3) RDW Coefficient of Variation 14.3 % (11.5-14.5) Neutrophils % (Manual) 27.8 % Lymphocytes % (Manual) 24.3 % Variant Lymphocytes % (manual) 37.5 % Monocytes % (Manual) 5.2 % Eosinophils % (Manual) 5.2 % Neutrophils # (Manual) 2.65 K/uL (1.4-6.5) Total Absolute Neutrophils 2.65 K/uL (1.4-6.5) Lymphocytes # (Manual) 2.32 K/uL (1.2-3.4) Absolute Variant Lymphocytes 3.58 K/uL Total Absolute Lymphocytes 5.90 K/uL (1.2-3.4) Monocytes # (Manual) 0.50 K/uL (0.11-0.59) Eosinophils # (Manual) 0.50 K/uL (0-0.5) Red Blood Cell Morphology Unremarkable Phosphorus Level 4.5 mg/dl (2.5-4.9) Magnesium Level 2.0 mg/dl (1.8-2.4) Total Bilirubin 0.4 mg/dl (0.2-1) Aspartate Amino Transf (AST/SGOT) 19 U/L (15-37) Alanine Aminotransferase (ALT/SGPT) 16 U/L (12-78) Alkaline Phosphatase 406 U/L (45-117) Total Creatine Kinase 54 U/L (39-308) Creatine Kinase MB 0.7 ng/ml (0.5-3.6) Creatine Kinase MB Ratio 1.3 (0-3.0) Troponin I < 0.015 ng/ml (0-0.045) Total Protein 7.4 gm/dl (6.4-8.2) Albumin 3.5 gm/dl (3.4-5.0) Globulin 3.9 gm/dl (2.5-4.0) Albumin/Globulin Ratio 0.9 (0.9-2) Ionized Calcium 0.80 mmol/l (1.12-1.32) Test 05/19/17 05:44 Calcium Level 7.0 mg/dl (8.5-10.1) Magnesium Level 2.0 mg/dl (1.8-2.4) Allergies Coded Allergies: No Known Allergies (Unverified , 03/15/17) Medications Current Inpatient Medications Medications (Trade) Dose Ordered Sig/Jonathan Route Start Time Stop Time Status Last Admin Dose Admin Tamsulosin HCl (Flomax Cap) 0.8 mg HS PO 03/15/17 21:00 06/09/17 20:59 05/18/17 20:44 0.8 MG Ranitidine HCl (zANTac TAB) 300 mg HS PO 03/15/17 21:00 06/09/17 20:59 05/18/17 20:45 300 MG Potassium/ Phosphorus/Sodium (Phospha 250 Neutral 155-852-130 Mg) 2 tab QID PO 04/10/17 17:00 06/09/17 16:59 05/19/17 07:49 2 TAB Ergocalciferol (Vitamin D Cap) 50,000 interunit DAILY PO 04/24/17 09:00 05/24/17 08:59 Future hold 05/19/17 07:48 50,000 INTERUNIT Magnesium Oxide (Mag-Ox Tab) 400 mg BID PO 04/26/17 09:00 05/26/17 08:59 05/19/17 07:51 400 MG Pantoprazole Sodium (Protonix Tab) 40 mg QAM PO 05/11/17 09:00 06/10/17 08:59 05/19/17 07:48 40 MG Docusate Sodium (coLACE CAP) 100 mg BID PO 05/10/17 21:00 06/09/17 20:59 05/19/17 07:48 100 MG Calcitriol (Rocaltrol Cap) 10 mcg QAM PO 05/10/17 09:00 06/09/17 08:59 05/19/17 07:50 10 MCG Hydrochlorothiazide (Hydrochlorothiazide Tab) 25 mg QAM PO 05/11/17 09:00 06/10/17 08:59 05/19/17 07:51 25 MG Acetaminophen (Tylenol Tab) 650 mg Q6H PRN PO 05/14/17 00:00 06/13/17 00:00 05/14/17 07:49 650 MG Neomycin/ Polymyxin/ Bacitracin (Neosporin Oint) 1 appln Q8 EXT 05/14/17 14:00 06/13/17 13:59 05/18/17 05:37 1 APPLN Heparin Sodium (Porcine) (Heparin 10 Unit/ ml 5 ml Flush) 1 ml PRN PRN FLUSH 05/16/17 13:30 06/15/17 13:29 05/18/17 05:36 1 ML Nystatin (Mycostatin Oint) 1 appln PRN PRN EXT 05/17/17 10:45 06/16/17 10:44 Calcium Carbonate (Tums Chew Tab) 2,000 mg 5XDQ4H PO 05/18/17 11:00 06/17/17 10:59 05/19/17 05:53 2,000 MG Calcium Carbonate (oS-Randy 500 TAB) 3,750 mg QID PO 05/18/17 13:00 06/09/17 12:59 05/19/17 07:48 3,750 MG Mirtazapine (Remeron Tab) 15 mg HS PO 05/18/17 21:00 06/17/17 20:59 05/18/17 20:50 15 MG Calcium Gluconate 02139 mg/Sodium Chloride 600 ml @ 60 mls/hr DAILY@0800 IV 05/19/17 08:00 06/18/17 07:59 05/19/17 07:47 60 MLS/HR Impression (1) Hypocalcemia (2) Prostate cancer (3) Hypertension Mr. 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 He developed severe hypocalcemia following Denosumab infusion. Renal function is normal. Calcitriol is being provided. The patient is taking PO calcium in the form of TUMs and Oscal. Aggressive replacement with PO and IV calcium continues. The patient has had associated hypomagnesemia. He is tolerating oral magnesium replacement. He also remains on a phosphorus supplement. He has hearing loss and joint pains which may be associated with calcium infusions. Podiatry consult was placed to help with ingrown toenails. Tolerating calcium infusion well. Serum calcium stable though slightly low with 10 grams daily. Recommendations -- Serum calcium dropped yesterday evening and was associated w/ muscle weakness. IV Calcium Gluconate infusion restarted. -- Will recheck serum calcium this evening after infusion is completed -- Hydrochlorothiazide 25 milligram p.o. daily, continue as tolerated (noted BP is slightly low) -- Serum Magnesium is acceptable. Continue Mg Oxide 400 mg BID -- He remains on calcitriol to 10 mcg daily, OsCal 2500 QID, TUMS 2 grams TID -- Monitor serum calcium daily, monitor magnesium, phosphorus regularly
[2017-05-19] MEDS ORDERED: NURSING VERBAL MED ORDER ONE (10:45)
[2017-05-19 11:33] VITALS: BP 124/69; PULSE 71; TEMP 36.8; O2SAT 95
[2017-05-19 15:09] VITALS: BP 121/63; PULSE 75; TEMP 36.8; O2SAT 97
--- NOTE | 2017-05-19 17:02 | Progress Note ---
Subjective Date of Service: May 19, 2017. Subjective pt did have an event last pt where he was with altered mental status and had a period of rigidity but he was also with low calcium as was having a clinical trial of not having iv infusion today is about to his normal, discussed hospice care and he does not seem ready to approach his care in that manner, seems to be perfectly happy to stay here Problem List Medical Problems: (1) Dehydration Status: Acute (2) Failure to thrive Status: Acute (3) Hypomagnesemia Status: Acute (4) UTI (urinary tract infection) Status: Acute (5) Vomiting Status: Acute Review of Systems Constitutional: No fever, No chills, No weakness, No fatigue Respiratory: No cough, No shortness of breath Cardiac: No chest pain, No orthopnea, No edema, No claudication Abdomen: No pain, No nausea, No vomiting, No diarrhea Musculoskeletal: No joint pain, No muscle pain Male : No dysuria, No urinary frequency Objective Vital Signs Date Time Temp Pulse Resp B/P (MAP) Pulse Ox O2 Delivery O2 Flow Rate FiO2 05/19/17 16:04 Room Air 05/19/17 15:09 36.8 75 16 121/63 (82) 97 05/19/17 11:33 36.8 71 16 124/69 (87) 95 05/19/17 08:00 Room Air 05/19/17 07:25 36.7 81 16 102/44 (63) 97 Room Air 05/19/17 04:38 36.9 77 18 121/63 (82) 96 Room Air 05/19/17 04:05 Room Air 05/19/17 00:04 Room Air 05/18/17 23:41 36.4 82 18 104/55 (71) 95 Room Air 05/18/17 20:02 Room Air 05/18/17 19:09 36.2 63 16 120/63 (82) 94 Room Air Physical Exam General Appearance: WD/WN, + mild distress Eyes: normal inspection, sclerae normal Neck: supple, no JVD Respiratory/Chest: chest non-tender, lungs clear, normal breath sounds Cardiovascular: regular rate, rhythm, no murmur Abdomen: normal bowel sounds, non tender, soft Extremities: no pedal edema, no calf tenderness Neurologic/Psychiatric: alert, oriented x 3 Laboratory Results Last 24 Hours Test 05/19/17 01:05 05/19/17 01:13 05/19/17 01:39 05/19/17 05:44 Bedside Glucose 108 mg/dl White Blood Count 9.55 K/uL Red Blood Count 3.91 M/uL Hemoglobin 11.9 g/dL Hematocrit 33.7 % Mean Corpuscular Volume 86.2 fL Mean Corpuscular Hemoglobin 30.4 pg Mean Corpuscular Hemoglobin Concent 35.3 g/dl Platelet Count 193 K/uL Mean Platelet Volume 7.9 fL RDW Standard Deviation 45.1 fL RDW Coefficient of Variation 14.3 % Neutrophils % (Manual) 27.8 % Lymphocytes % (Manual) 24.3 % Variant Lymphocytes % (manual) 37.5 % Monocytes % (Manual) 5.2 % Eosinophils % (Manual) 5.2 % Neutrophils # (Manual) 2.65 K/uL Total Absolute Neutrophils 2.65 K/uL Lymphocytes # (Manual) 2.32 K/uL Absolute Variant Lymphocytes 3.58 K/uL Total Absolute Lymphocytes 5.90 K/uL Monocytes # (Manual) 0.50 K/uL Eosinophils # (Manual) 0.50 K/uL Blood Smear Review Red Blood Cell Morphology Unremarkable Sodium Level 135 mmol/L Potassium Level 3.5 mmol/L Chloride Level 100 mmol/L Carbon Dioxide Level 27 mmol/L Anion Gap 8.0 mmol/L Blood Urea Nitrogen 29 mg/dl Creatinine 1.27 mg/dl Est Creatinine Clear Calc Drug Dose 37.8 ml/min Estimated GFR () 60.2 Estimated GFR (Non- 51.9 BUN/Creatinine Ratio 23.0 Random Glucose 113 mg/dl Calcium Level 7.3 mg/dl 7.0 mg/dl Phosphorus Level 4.5 mg/dl Magnesium Level 2.0 mg/dl 2.0 mg/dl Total Bilirubin 0.4 mg/dl Aspartate Amino Transf (AST/SGOT) 19 U/L Alanine Aminotransferase (ALT/SGPT) 16 U/L Alkaline Phosphatase 406 U/L Total Creatine Kinase 54 U/L Creatine Kinase MB 0.7 ng/ml Creatine Kinase MB Ratio 1.3 Troponin I < 0.015 ng/ml Total Protein 7.4 gm/dl Albumin 3.5 gm/dl Globulin 3.9 gm/dl Albumin/Globulin Ratio 0.9 Ionized Calcium 0.80 mmol/l Assessment and Plan 81 year old man with a history of prostate cancer and osteoblastic mets admitted because of severe hypocalcemia associated with Denosumab (03/02/2017) therapy. severe hypocalcemia secondary to Denosumab therapy(03/02/2017) appreciate nephrology input. calcium fell to 7 with symptoms with restarting of iv calium, still working with case managment to try to solve issue and deliver iv calcium as an outpt Continue hydrochlorothiazide 25 milligram p.o. daily, Mg Oxide 400 mg BID, Continue Calcitriol 10 mcg daily, OsCal 2500 QID, TUMS 2 grams TID Decreased bilateral hearing, likely secondary to cerumen impaction, continue Debrox eardrops. A few skin lesions in the scalp, there is no obvious signs of melanoma/ ulceration, appear to be actinic keratosis - advised patient to follow-up with own office services specialist after discharge from hospital Ingrown toe nail - seen by podiatry for debridement of mycotic nails Continued [facility] stay due to: multiple IV medications needed Discharge planning: uncertain
[2017-05-19 20:00] VITALS: BP 129/73; PULSE 81; TEMP 36.9; O2SAT 96
[2017-05-19] MEDS: RANITIDINE HCL 150 MG TAB PO SCH (20:50)
[2017-05-19] MEDS: TAMSULOSIN HCL 0.4 MG CAP PO SCH (20:50)
[2017-05-19] MEDS: MIRTAZAPINE TAB 15 MG TAB PO SCH (20:51)
[2017-05-20 00:14] VITALS: BP 101/62; PULSE 74; TEMP 36.7; O2SAT 96
[2017-05-20 04:19] VITALS: BP 122/69; PULSE 76; TEMP 36.9; O2SAT 98
[2017-05-20] MEDS: NEOMYCIN/POLYMYX/BACITR OINT 15 GM TUBE EXT SCH ×3 (06:00→20:24)
[2017-05-20] MEDS: CALCIUM CARBONATE 500 MG CHEWABLE PO SCH ×5 (06:33→22:28)
[2017-05-20 06:45] LABS: CALCIUM 7.3 mg/dl (8.5-10.1); CREATININE 1.29 mg/dl (0.60-1.40); POTASSIUM 3.7 mmol/L (3.5-5.1)
[2017-05-20 07:11] VITALS: BP 116/69; PULSE 78; TEMP 36.7; O2SAT 96
[2017-05-20] MEDS: PANTOprazole SOD 40 MG TAB PO SCH (09:03)
[2017-05-20] MEDS: CALCITRIOL 0.5 MCG CAP PO SCH (09:03)
[2017-05-20] MEDS: POT PHOSPHATE MONOBASIC W/ SOD TAB PO SCH ×4 (09:03→20:21)
[2017-05-20] MEDS: CALCIUM CARBONATE 1250MG TAB PO SCH ×4 (09:04→20:25)
[2017-05-20] MEDS: ERGOCALCIFEROL 50,000 INTER.UNIT CAP PO SCH (09:04)
[2017-05-20] MEDS: MAGNESIUM OXIDE 400 MG TAB PO SCH ×2 (09:04→20:26)
[2017-05-20] MEDS: DOCUSATE SODIUM 100 MG CAP PO SCH ×2 (09:04→20:24)
[2017-05-20] MEDS: HYDROCHLOROTHIAZIDE 50 MG TAB PO SCH (09:04)
--- NOTE | 2017-05-20 09:51 | Nephrology Progress Note ---
Nephrology Progress Note Date of Service May 20, 2017. Chief Complaint Hypocalcemia, metastatic prostate cancer Subjective Mr. Greene was seen & examined in his hospital room this morning. He reports that his hearing is back to baseline. He currently denies dyspnea, angina or muscle cramping Review of Systems Constitutional: No fever ENT: No hearing loss Cardiovascular: No chest pain Respiratory: No dyspnea at rest Abdomen: No pain, No nausea, No vomiting Extremities: No leg edema A complete review of systems was performed. Pertinent positives are noted above. All other systems are negative. Vital Signs Last 8 Hrs Date Time Temp Pulse Resp B/P (MAP) Pulse Ox O2 Delivery O2 Flow Rate FiO2 05/20/17 07:11 36.7 78 16 116/69 (85) 96 05/20/17 04:19 36.9 76 18 122/69 (86) 98 Room Air 05/20/17 04:05 Room Air Last Recorded Weight Weight (Kilograms): 60.900 Physical Exam General Appearance: no apparent distress Head: normocephalic, atraumatic Eyes: PERRL, EOMI Neck: no adenopathy Respiratory/Chest: lungs clear Cardiovascular: regular rate, rhythm Abdomen/GI: normal bowel sounds, non tender, soft Extremities/Musculoskelatal: no calf tenderness, no pedal edema Neurologic/Psych: alert, oriented x 3 Social History Drug Use: none Marital Status: Housing Status: lives with family (lives with son) 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 05/20/17 05:43 Test 05/19/17 17:59 05/20/17 05:43 Calcium Level 8.7 mg/dl (8.5-10.1) 7.3 mg/dl (8.5-10.1) Anion Gap 6.0 mmol/L (3-11) Est Creatinine Clear Calc Drug Dose 37.4 ml/min Estimated GFR () 59.0 Estimated GFR (Non- 50.9 BUN/Creatinine Ratio 19.7 (10-20) Allergies Coded Allergies: No Known Allergies (Unverified , 03/15/17) Medications Current Inpatient Medications Medications (Trade) Dose Ordered Sig/Jonathan Route Start Time Stop Time Status Last Admin Dose Admin Tamsulosin HCl (Flomax Cap) 0.8 mg HS PO 03/15/17 21:00 4/28/18 20:59 05/19/17 20:50 0.8 MG Ranitidine HCl (zANTac TAB) 300 mg HS PO 03/15/17 21:00 06/09/17 20:59 05/19/17 20:50 300 MG Potassium/ Phosphorus/Sodium (Phospha 250 Neutral 155-852-130 Mg) 2 tab QID PO 04/10/17 17:00 06/09/17 16:59 05/20/17 09:03 2 TAB Ergocalciferol (Vitamin D Cap) 50,000 interunit DAILY PO 04/24/17 09:00 05/24/17 08:59 Future hold 05/20/17 09:04 50,000 INTERUNIT Magnesium Oxide (Mag-Ox Tab) 400 mg BID PO 04/26/17 09:00 05/26/17 08:59 05/20/17 09:04 400 MG Pantoprazole Sodium (Protonix Tab) 40 mg QAM PO 05/11/17 09:00 06/10/17 08:59 05/20/17 09:03 40 MG Docusate Sodium (coLACE CAP) 100 mg BID PO 05/10/17 21:00 06/09/17 20:59 05/20/17 09:04 100 MG Calcitriol (Rocaltrol Cap) 10 mcg QAM PO 05/10/17 09:00 06/09/17 08:59 05/20/17 09:03 10 MCG Hydrochlorothiazide (Hydrochlorothiazide Tab) 25 mg QAM PO 05/11/17 09:00 06/10/17 08:59 05/20/17 09:04 25 MG Acetaminophen (Tylenol Tab) 650 mg Q6H PRN PO 05/14/17 00:00 06/13/17 00:00 05/14/17 07:49 650 MG Neomycin/ Polymyxin/ Bacitracin (Neosporin Oint) 1 appln Q8 EXT 05/14/17 14:00 06/13/17 13:59 05/18/17 05:37 1 APPLN Heparin Sodium (Porcine) (Heparin 10 Unit/ ml 5 ml Flush) 1 ml PRN PRN FLUSH 05/16/17 13:30 06/15/17 13:29 05/20/17 06:24 1 ML Nystatin (Mycostatin Oint) 1 appln PRN PRN EXT 05/17/17 10:45 06/16/17 10:44 Calcium Carbonate (Tums Chew Tab) 2,000 mg 5XDQ4H PO 05/18/17 11:00 06/17/17 10:59 05/20/17 06:33 2,000 MG Calcium Carbonate (oS-Randy 500 TAB) 3,750 mg QID PO 05/18/17 13:00 06/09/17 12:59 05/20/17 09:04 3,750 MG Mirtazapine (Remeron Tab) 15 mg HS PO 05/18/17 21:00 06/17/17 20:59 05/19/17 20:51 15 MG Calcium Gluconate 52110 mg/Sodium Chloride 600 ml @ 60 mls/hr DAILY@2000 IV 05/20/17 20:00 06/19/17 19:59 Impression (1) Hypocalcemia (2) Prostate cancer (3) Hypertension Mr. 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 He developed severe hypocalcemia following Denosumab infusion. Renal function is normal. Calcitriol is being provided. The patient is taking PO calcium in the form of TUMs and Oscal. Aggressive replacement with PO and IV calcium continues. The patient has had associated hypomagnesemia. He is tolerating oral magnesium replacement. He also remains on a phosphorus supplement. Recommendations -- Serum calcium is low this morning. Will need to resume IV Calcium infusion. Orders placed in EMR -- Will recheck serum calcium this evening after infusion is completed -- Hydrochlorothiazide 25 milligram p.o. daily, continue as tolerated (noted BP is slightly low) -- Serum Magnesium is acceptable. Continue Mg Oxide 400 mg BID -- Will recheck PO4 in am. Patient remains on Neutraphos -- He remains on Calcitriol 10 mcg daily, OsCal 2500 QID, TUMS 2 grams TID -- Monitor serum calcium daily, monitor magnesium, phosphorus regularly
[2017-05-20] MEDS: CALCIUM GLUCONATE IV SCH (11:02)
[2017-05-20] MEDS: SODIUM CHLORIDE 0.9% IV SCH (11:02)
[2017-05-20 11:24] VITALS: BP 143/74; PULSE 82; TEMP 36.8; O2SAT 97
--- NOTE | 2017-05-20 15:59 | Progress Note ---
Subjective Date of Service: May 20, 2017. Subjective this pt has no new complaints and has improved hearing after cerumen disimpaction Problem List Medical Problems: (1) Dehydration Status: Acute (2) Failure to thrive Status: Acute (3) Hypomagnesemia Status: Acute (4) UTI (urinary tract infection) Status: Acute (5) Vomiting Status: Acute Review of Systems Constitutional: No fever, No chills Respiratory: No cough, No shortness of breath, No dyspnea on exertion Cardiac: No chest pain, No orthopnea, No PND, No edema Abdomen: No pain, No nausea, No vomiting, No diarrhea Male : No dysuria, No urinary frequency Objective Vital Signs Date Time Temp Pulse Resp B/P (MAP) Pulse Ox O2 Delivery O2 Flow Rate FiO2 05/20/17 12:00 Room Air 05/20/17 11:24 36.8 82 16 143/74 (97) 97 05/20/17 08:00 Room Air 05/20/17 07:11 36.7 78 16 116/69 (85) 96 05/20/17 04:19 36.9 76 18 122/69 (86) 98 Room Air 05/20/17 04:05 Room Air 05/20/17 00:14 36.7 74 18 101/62 (75) 96 Room Air 05/20/17 00:05 Room Air 05/19/17 20:05 Room Air 05/19/17 20:00 36.9 81 16 129/73 (91) 96 Room Air 05/19/17 16:04 Room Air Physical Exam General Appearance: WD/WN, + mild distress Eyes: normal inspection, sclerae normal Neck: supple, no JVD Respiratory/Chest: chest non-tender, lungs clear, normal breath sounds Cardiovascular: regular rate, rhythm, no murmur Abdomen: normal bowel sounds, non tender, soft Extremities: no pedal edema, no calf tenderness Laboratory Results Last 24 Hours Test 05/19/17 17:59 05/20/17 05:43 Calcium Level 8.7 mg/dl 7.3 mg/dl Sodium Level 138 mmol/L Potassium Level 3.7 mmol/L Chloride Level 104 mmol/L Carbon Dioxide Level 28 mmol/L Anion Gap 6.0 mmol/L Blood Urea Nitrogen 25 mg/dl Creatinine 1.29 mg/dl Est Creatinine Clear Calc Drug Dose 37.4 ml/min Estimated GFR () 59.0 Estimated GFR (Non- 50.9 BUN/Creatinine Ratio 19.7 Random Glucose 87 mg/dl Assessment and Plan 81 year old man with a history of prostate cancer and osteoblastic mets admitted because of severe hypocalcemia associated with Denosumab (03/02/2017) therapy. severe hypocalcemia secondary to Denosumab therapy(03/02/2017) appreciate nephrology input. calcium fell to 7 with symptoms with restarting of iv calium 05/19, still working with case management to try to solve issue and deliver iv calcium as an outpt Continue hydrochlorothiazide 25 milligram p.o. daily, Mg Oxide 400 mg BID, Continue Calcitriol 10 mcg daily, OsCal 2500 QID, TUMS 2 grams TID Decreased bilateral hearing, likely secondary to cerumen impaction, continue Debrox eardrops. A few skin lesions in the scalp, there is no obvious signs of melanoma/ ulceration, appear to be actinic keratosis - advised patient to follow-up with own teacher of the hearing impaired after discharge from hospital Ingrown toe nail - seen by podiatry for debridement of mycotic nails Cerumen impaction irrigated successfully Continued [facility] stay due to: multiple IV medications needed Discharge planning: uncertain
[2017-05-20 16:06] VITALS: BP 115/48; PULSE 72; TEMP 36.8; O2SAT 95
[2017-05-20 17:51] VITALS: BP 139/74; PULSE 96; TEMP 37; O2SAT 95
[2017-05-20] MEDS ORDERED: SODIUM CHLORIDE 0.9% IV SCH (20:00)
[2017-05-20] MEDS ORDERED: CALCIUM GLUCONATE IV SCH (20:00)
[2017-05-20] MEDS: TAMSULOSIN HCL 0.4 MG CAP PO SCH (20:21)
[2017-05-20] MEDS: RANITIDINE HCL 150 MG TAB PO SCH (20:22)
[2017-05-20] MEDS: MIRTAZAPINE TAB 15 MG TAB PO SCH (20:24)
[2017-05-21] VITALS (9 sets, daily range): BP systolic 106–153; BP diastolic 43–75; PULSE 68–88; TEMP 36.5–37.1; O2SAT 94–98
[2017-05-21] MEDS: CALCIUM GLUCONATE IV SCH (00:32)
[2017-05-21] MEDS: SODIUM CHLORIDE 0.9% IV SCH (00:32)
[2017-05-21] MEDS: CALCIUM CARBONATE 500 MG CHEWABLE PO SCH ×5 (06:09→22:28)
[2017-05-21] MEDS: NEOMYCIN/POLYMYX/BACITR OINT 15 GM TUBE EXT SCH ×3 (06:10→20:51)
[2017-05-21 06:47] LABS: CALCIUM 9.2 mg/dl (8.5-10.1); CREATININE 1.31 mg/dl (0.60-1.40); POTASSIUM 4.4 mmol/L (3.5-5.1)
[2017-05-21] MEDS: HYDROCHLOROTHIAZIDE 50 MG TAB PO SCH (09:00)
[2017-05-21] MEDS: DOCUSATE SODIUM 100 MG CAP PO SCH ×2 (09:47→20:49)
[2017-05-21] MEDS: CALCIUM CARBONATE 1250MG TAB PO SCH ×4 (09:48→20:53)
[2017-05-21] MEDS: POT PHOSPHATE MONOBASIC W/ SOD TAB PO SCH ×4 (09:49→20:50)
[2017-05-21] MEDS: PANTOprazole SOD 40 MG TAB PO SCH (09:49)
[2017-05-21] MEDS: MAGNESIUM OXIDE 400 MG TAB PO SCH ×2 (09:55→20:50)
[2017-05-21] MEDS: CALCITRIOL 0.5 MCG CAP PO SCH (09:55)
[2017-05-21] MEDS: ERGOCALCIFEROL 50,000 INTER.UNIT CAP PO SCH (09:56)
--- NOTE | 2017-05-21 10:12 | Progress Note ---
Subjective Date of Service: May 21, 2017. Subjective Pt evaluation today including: conversation w/ patient, physical exam, chart review, lab review, review of inpatient medication list Pain: controlled Voiding: no voiding problems feeling good has no new complaint Problem List Medical Problems: (1) Dehydration Status: Acute (2) Failure to thrive Status: Acute (3) Hypomagnesemia Status: Acute (4) UTI (urinary tract infection) Status: Acute (5) Vomiting Status: Acute Review of Systems Review of system Constitutional: No fever / no chills / no sweats / no weakness / no fatigue Eyes: no blurring of vision / no eye pain / no discharge / no redness ENT: no hearing loss / no epistaxis /no swallowing problems Respiratory: no cough / no wheezing / no SOB / no hemoptysis Cardiovascular: no Chest pain / no lower extremity edema / no palpitation Abdomen: no pain / no nausea / no vomiting / no constipation Musculoskeletal: no joint pain / no muscle pain / no joint swelling Genitourinary: no dysuria / no incontinence / no urinary retention Neurologic: no focal weakness / no numbness/tingling / no ataxia Psychiatric: no depression symptoms / no anxiety / no insomnia Endocrine: no excessive thirst / no excessive urination Hematologic: no abnormal bleeding / no bruising / no LN swelling Skin: No rash / no pallor Objective Vital Signs Date Time Temp Pulse Resp B/P (MAP) Pulse Ox O2 Delivery O2 Flow Rate FiO2 05/21/17 08:00 98 Room Air 05/21/17 07:22 36.5 88 16 107/70 (82) 98 Room Air 05/21/17 04:35 36.9 68 19 109/59 (76) 95 Room Air 05/21/17 04:00 Room Air 05/21/17 00:21 36.5 71 19 110/50 (70) 95 Room Air 05/21/17 00:00 Room Air 05/20/17 20:00 Room Air 05/20/17 17:51 37.0 96 20 139/74 (95) 95 Room Air 05/20/17 16:06 36.8 72 16 115/48 (70) 95 Room Air 05/20/17 16:00 Room Air 05/20/17 12:00 Room Air 05/20/17 11:24 36.8 82 16 143/74 (97) 97 Physical Exam Comments: Physical examination General patient appears to be comfortable, not in acute distress HEENT: Atraumatic , normocephalic /no jaundice /no pallor /anicteric /no dry mucous membrane /normal external ear inspection Neck: Supple /no swelling /central trach Heart: S1/S2 normal/regular rate and rhythm/no gallop /no rub /no murmur Lungs: Clear to auscultation bilaterally/normal chest with expansion/no rhonchi/ no rales/no wheezing/no use of accessory muscles of respiration Abdomen: Soft/nontender/no guarding/no rebound/no organomegaly/no pulsatile mass Musculoskeletal: No swelling/no edema/no tenderness/normal range of motion Neuro exam: Awake alert oriented 3/cranial nerves II through XII appear to be intact/sensation intact/moves all extremities/no abnormal movements Psychiatric evaluation: No depressed mood/normal affect Skin: No rash on exposed skin area/no erythema, scattered lesions on scalp Extremity: Normal pulse/no pitting edema/no clubbing or cyanosis Endocrine/lymphatic: No obvious lymphadenopathy /no lymphedema Laboratory Results Last 24 Hours Test 05/20/17 18:10 05/21/17 05:35 Calcium Level 9.0 mg/dl 9.2 mg/dl Sodium Level 139 mmol/L Potassium Level 4.4 mmol/L Chloride Level 104 mmol/L Carbon Dioxide Level 29 mmol/L Anion Gap 6.0 mmol/L Blood Urea Nitrogen 27 mg/dl Creatinine 1.31 mg/dl Est Creatinine Clear Calc Drug Dose 37.2 ml/min Estimated GFR () 57.9 Estimated GFR (Non- 50.0 BUN/Creatinine Ratio 20.3 Random Glucose 88 mg/dl Phosphorus Level 3.0 mg/dl Magnesium Level 1.9 mg/dl Assessment and Plan 81-year-old man with metastasized prostate cancer, with osteoblastic bone metastases who presented with fatigue due to severe hypocalcemia. Assessment Severe hypocalcemia believed to be attributed to Denosumab /bone metastasis Hypomagnesemia and hypophosphatemia Metastasized prostate cancer, with osteoblastic bone metastases Complicated due to i.e. with stenotrophomonas present on admission Urinary retention with urine outflow obstruction, status post indwelling Berkowitz Right arm superficial thrombophlebitis Seborrheic dermatitis Chronic kidney disease stage III Intertrigo/oral thrush Plan Continue telemetry Continue aggressive calcium replacement as needed plus hydrochlorothiazide as blood pressure allows Used to be on 1 g IV per hour infusion of calcium gluconate plus large dose of oral calcium supplement, calcium level today is 8.7. Currently does not require as much calcium replacement , Dr. Cifuentes is following up the patient Continue magnesium replacement 400 mg p.o. twice daily Continue Flomax Continue ranitidine for GI prophylaxis Heparin for DVT prophylaxis Instructed to see a straw hat brim raiser operator for his scalp lesion Discussed case with patient will order labs in am UTI was treated Continued [facility] stay due to: multiple IV medications needed Discharge planning: uncertain
--- NOTE | 2017-05-21 11:14 | Nephrology Progress Note ---
Nephrology Progress Note Date of Service May 21, 2017. Chief Complaint Hypocalcemia, metastatic prostate cancer Subjective Mr. Greene was seen & examined in his hospital room this morning. He remains on a calcium infusion. He reports that his hearing is back to normal. He denies muscle cramping or dyspnea. Review of Systems Constitutional: No fever Cardiovascular: No chest pain Respiratory: No dyspnea at rest Abdomen: No pain, No nausea, No vomiting Extremities: No leg edema A complete review of systems was performed. Pertinent positives are noted above. All other systems are negative. Vital Signs Last 8 Hrs Date Time Temp Pulse Resp B/P (MAP) Pulse Ox O2 Delivery O2 Flow Rate FiO2 05/21/17 08:00 98 Room Air 05/21/17 07:22 36.5 88 16 107/70 (82) 98 Room Air 05/21/17 04:35 36.9 68 19 109/59 (76) 95 Room Air 05/21/17 04:00 Room Air Last Recorded Weight Weight (Kilograms): 62.000 Physical Exam General Appearance: no apparent distress Head: normocephalic, atraumatic Eyes: PERRL, EOMI Neck: no adenopathy Respiratory/Chest: lungs clear Cardiovascular: regular rate, rhythm Abdomen/GI: normal bowel sounds, non tender, soft Extremities/Musculoskelatal: no calf tenderness, no pedal edema Neurologic/Psych: alert, oriented x 3 Social History Drug Use: none Marital Status: Housing Status: lives with family (lives with son) 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 05/21/17 05:35 Test 05/20/17 18:10 05/21/17 05:35 Calcium Level 9.0 mg/dl (8.5-10.1) 9.2 mg/dl (8.5-10.1) Anion Gap 6.0 mmol/L (3-11) Est Creatinine Clear Calc Drug Dose 37.2 ml/min Estimated GFR () 57.9 Estimated GFR (Non- 50.0 BUN/Creatinine Ratio 20.3 (10-20) Phosphorus Level 3.0 mg/dl (2.5-4.9) Magnesium Level 1.9 mg/dl (1.8-2.4) Allergies Coded Allergies: No Known Allergies (Unverified , 03/15/17) Medications Current Inpatient Medications Medications (Trade) Dose Ordered Sig/Jonathan Route Start Time Stop Time Status Last Admin Dose Admin Tamsulosin HCl (Flomax Cap) 0.8 mg HS PO 03/15/17 21:00 06/09/17 20:59 05/20/17 20:21 0.8 MG Ranitidine HCl (zANTac TAB) 300 mg HS PO 03/15/17 21:00 06/09/17 20:59 05/20/17 20:22 300 MG Potassium/ Phosphorus/Sodium (Phospha 250 Neutral 155-852-130 Mg) 2 tab QID PO 04/10/17 17:00 06/09/17 16:59 05/21/17 09:49 2 TAB Ergocalciferol (Vitamin D Cap) 50,000 interunit DAILY PO 04/24/17 09:00 05/24/17 08:59 Future hold 05/21/17 09:56 50,000 INTERUNIT Magnesium Oxide (Mag-Ox Tab) 400 mg BID PO 04/26/17 09:00 05/26/17 08:59 05/21/17 09:55 400 MG Pantoprazole Sodium (Protonix Tab) 40 mg QAM PO 05/11/17 09:00 06/10/17 08:59 05/21/17 09:49 40 MG Docusate Sodium (coLACE CAP) 100 mg BID PO 05/10/17 21:00 06/09/17 20:59 05/21/17 09:47 100 MG Calcitriol (Rocaltrol Cap) 10 mcg QAM PO 05/10/17 09:00 06/09/17 08:59 05/21/17 09:55 10 MCG Hydrochlorothiazide (Hydrochlorothiazide Tab) 25 mg QAM PO 05/11/17 09:00 06/10/17 08:59 05/21/17 09:00 25 MG Acetaminophen (Tylenol Tab) 650 mg Q6H PRN PO 05/14/17 00:00 06/13/17 00:00 05/14/17 07:49 650 MG Neomycin/ Polymyxin/ Bacitracin (Neosporin Oint) 1 appln Q8 EXT 05/14/17 14:00 06/13/17 13:59 05/21/17 06:10 1 APPLN Heparin Sodium (Porcine) (Heparin 10 Unit/ ml 5 ml Flush) 1 ml PRN PRN FLUSH 05/16/17 13:30 06/15/17 13:29 05/20/17 06:24 1 ML Nystatin (Mycostatin Oint) 1 appln PRN PRN EXT 05/17/17 10:45 06/16/17 10:44 Calcium Carbonate (Tums Chew Tab) 2,000 mg 5XDQ4H PO 05/18/17 11:00 06/17/17 10:59 05/21/17 06:09 2,000 MG Calcium Carbonate (oS-Randy 500 TAB) 3,750 mg QID PO 05/18/17 13:00 06/09/17 12:59 05/21/17 09:48 3,750 MG Mirtazapine (Remeron Tab) 15 mg HS PO 05/18/17 21:00 06/17/17 20:59 05/20/17 20:24 15 MG Calcium Gluconate 39866 mg/Sodium Chloride 1,100 ml @ 75 mls/hr [id number] IV 05/20/17 10:15 06/19/17 10:14 05/21/17 00:32 75 MLS/HR Impression (1) Hypocalcemia (2) Prostate cancer (3) Hypertension Mr. 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 He developed severe hypocalcemia following Denosumab infusion. Renal function is normal. Calcitriol is being provided. The patient is taking PO calcium in the form of TUMs and Oscal. Aggressive replacement with PO and IV calcium continues. The patient has had associated hypomagnesemia. He is tolerating oral magnesium replacement. He also remains on a phosphorus supplement. Recommendations -- Serum calcium has corrected. Will hold calcium infusion at this time -- Will recheck serum calcium this evening -- Continue Hydrochlorothiazide 25 milligram po daily -- Serum Magnesium is acceptable. Continue Mg Oxide 400 mg BID -- Serum PO4 this am is acceptable. Patient remains on Neutraphos -- Continue Calcitriol 10 mcg daily, OsCal 2500 QID, TUMS 2 grams TID -- Monitor serum calcium daily, monitor magnesium and phosphorus regularly
[2017-05-21] MEDS: TAMSULOSIN HCL 0.4 MG CAP PO SCH (20:49)
[2017-05-21] MEDS: RANITIDINE HCL 150 MG TAB PO SCH (20:49)
[2017-05-21] MEDS: MIRTAZAPINE TAB 15 MG TAB PO SCH (20:51)
[2017-05-22] VITALS (10 sets, daily range): BP systolic 98–122; BP diastolic 51–73; PULSE 45–97; TEMP 36.6–37; O2SAT 94–98
[2017-05-22] MEDS: NEOMYCIN/POLYMYX/BACITR OINT 15 GM TUBE EXT SCH ×3 (05:51→21:09)
[2017-05-22 06:24] LABS: CALCIUM 8.4 mg/dl (8.5-10.1); CREATININE 1.42 mg/dl (0.60-1.40); POTASSIUM 4.3 mmol/L (3.5-5.1)
[2017-05-22] MEDS: CALCIUM CARBONATE 500 MG CHEWABLE PO SCH ×5 (07:12→23:29)
[2017-05-22] MEDS: POT PHOSPHATE MONOBASIC W/ SOD TAB PO SCH ×4 (08:16→21:08)
[2017-05-22] MEDS: CALCITRIOL 0.5 MCG CAP PO SCH (08:16)
[2017-05-22] MEDS: HYDROCHLOROTHIAZIDE 50 MG TAB PO SCH ×2 (08:16→09:00)
[2017-05-22] MEDS: DOCUSATE SODIUM 100 MG CAP PO SCH ×2 (08:17→21:07)
[2017-05-22] MEDS: MAGNESIUM OXIDE 400 MG TAB PO SCH ×2 (08:17→21:05)
[2017-05-22] MEDS: PANTOprazole SOD 40 MG TAB PO SCH (08:17)
[2017-05-22] MEDS: CALCIUM CARBONATE 1250MG TAB PO SCH ×4 (08:18→21:07)
[2017-05-22] MEDS: ERGOCALCIFEROL 50,000 INTER.UNIT CAP PO SCH (08:19)
[2017-05-22] MEDS ORDERED: NURSING VERBAL MED ORDER ONE (09:00)
[2017-05-22] MEDS ORDERED: CALCIUM GLUCONATE IV SCH (09:30)
[2017-05-22] MEDS ORDERED: SODIUM CHLORIDE 0.9% IV SCH (09:30)
--- NOTE | 2017-05-22 10:02 | Nephrology Progress Note ---
Nephrology Progress Note Date of Service May 22, 2017. Chief Complaint Hypocalcemia, metastatic prostate cancer Subjective Mr. Greene was seen & examined in his hospital room this morning. He denies angina, dyspnea or muscle cramping. He has remained active by ambulating in the hallways. He voices no new medical concerns. Review of Systems Constitutional: No fever Cardiovascular: No chest pain Respiratory: No dyspnea at rest Abdomen: No pain, No nausea, No vomiting Genitourinary - Male: No dysuria Extremities: No leg edema A complete review of systems was performed. Pertinent positives are noted above. All other systems are negative. Vital Signs Last 8 Hrs Date Time Temp Pulse Resp B/P (MAP) Pulse Ox O2 Delivery O2 Flow Rate FiO2 05/22/17 08:00 98 Room Air 05/22/17 07:04 36.7 80 16 109/56 (73) 96 Room Air 05/22/17 04:12 36.7 83 18 98/56 (70) 95 Room Air 05/22/17 04:00 Room Air Last Recorded Weight Weight (Kilograms): 62.000 Physical Exam General Appearance: no apparent distress Head: normocephalic, atraumatic Eyes: PERRL, EOMI Neck: no adenopathy Respiratory/Chest: lungs clear, no respiratory distress Cardiovascular: regular rate, rhythm Abdomen/GI: normal bowel sounds, non tender, soft Genitourinary - Male: + pertinent finding (bey catheter draining clear yellow urine) Extremities/Musculoskelatal: no calf tenderness, no pedal edema Neurologic/Psych: alert, oriented x 3 Social History Drug Use: none Marital Status: Housing Status: lives with family (lives with son) 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 05/22/17 05:36 Test 05/21/17 16:54 05/22/17 05:36 Calcium Level 9.1 mg/dl (8.5-10.1) 8.4 mg/dl (8.5-10.1) Anion Gap 3.0 mmol/L (3-11) Est Creatinine Clear Calc Drug Dose 34.3 ml/min Estimated GFR () 52.6 Estimated GFR (Non- 45.4 BUN/Creatinine Ratio 23.8 (10-20) Allergies Coded Allergies: No Known Allergies (Unverified , 03/15/17) Medications Current Inpatient Medications Medications (Trade) Dose Ordered Sig/Jonathan Route Start Time Stop Time Status Last Admin Dose Admin Tamsulosin HCl (Flomax Cap) 0.8 mg HS PO 03/15/17 21:00 06/09/17 20:59 05/21/17 20:49 0.8 MG Ranitidine HCl (zANTac TAB) 300 mg HS PO 03/15/17 21:00 06/09/17 20:59 05/21/17 20:49 300 MG Potassium/ Phosphorus/Sodium (Phospha 250 Neutral 155-852-130 Mg) 2 tab QID PO 04/10/17 17:00 06/09/17 16:59 05/22/17 08:16 2 TAB Ergocalciferol (Vitamin D Cap) 50,000 interunit DAILY PO 04/24/17 09:00 05/24/17 08:59 Future hold 05/22/17 08:19 50,000 INTERUNIT Magnesium Oxide (Mag-Ox Tab) 400 mg BID PO 04/26/17 09:00 05/26/17 08:59 05/22/17 08:17 400 MG Pantoprazole Sodium (Protonix Tab) 40 mg QAM PO 05/11/17 09:00 06/10/17 08:59 05/22/17 08:17 40 MG Docusate Sodium (coLACE CAP) 100 mg BID PO 05/10/17 21:00 06/09/17 20:59 05/22/17 08:17 100 MG Calcitriol (Rocaltrol Cap) 10 mcg QAM PO 05/10/17 09:00 06/09/17 08:59 05/22/17 08:16 10 MCG Hydrochlorothiazide (Hydrochlorothiazide Tab) 25 mg QAM PO 05/11/17 09:00 06/10/17 08:59 05/22/17 08:16 25 MG Acetaminophen (Tylenol Tab) 650 mg Q6H PRN PO 05/14/17 00:00 06/13/17 00:00 05/14/17 07:49 650 MG Neomycin/ Polymyxin/ Bacitracin (Neosporin Oint) 1 appln Q8 EXT 05/14/17 14:00 06/13/17 13:59 05/21/17 20:51 1 APPLN Heparin Sodium (Porcine) (Heparin 10 Unit/ ml 5 ml Flush) 1 ml PRN PRN FLUSH 05/16/17 13:30 06/15/17 13:29 05/22/17 05:38 1 ML Nystatin (Mycostatin Oint) 1 appln PRN PRN EXT 05/17/17 10:45 06/16/17 10:44 Calcium Carbonate (Tums Chew Tab) 2,000 mg 5XDQ4H PO 05/18/17 11:00 06/17/17 10:59 05/22/17 07:12 2,000 MG Calcium Carbonate (oS-Randy 500 TAB) 3,750 mg QID PO 05/18/17 13:00 06/09/17 12:59 05/22/17 08:18 3,750 MG Mirtazapine (Remeron Tab) 15 mg HS PO 05/18/17 21:00 06/17/17 20:59 05/21/17 20:51 15 MG Calcium Gluconate 73965 mg/Sodium Chloride 1,100 ml @ 75 mls/hr [id number] IV 05/22/17 09:30 05/22/17 22:49 Impression (1) Hypocalcemia (2) Prostate cancer (3) Hypertension Mr. 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 He developed severe hypocalcemia following Denosumab infusion. Renal function is normal. Calcitriol is being provided. The patient is taking PO calcium in the form of TUMs and Oscal. Aggressive replacement with PO and IV calcium continues. The patient has had associated hypomagnesemia. He is tolerating oral magnesium replacement. He also remains on a phosphorus supplement. Recommendations -- Serum calcium is trending down again this am (9.1 --> 8.4 over 12 hours). Patient remains asymptomatic -- Will provide Ca Gluconate 10 g in 1 L 0.9NS at 75 cc/hr today -- Will recheck serum Ca level in am. Spoke w/ Pharm-D today: 5 half lives needed for any drug to be completely eliminated -- Continue Hydrochlorothiazide 25 milligram po daily -- Serum Magnesium is acceptable. Continue Mg Oxide 400 mg BID -- Serum PO4 this am is acceptable. Patient remains on Neutraphos -- Continue Calcitriol 10 mcg daily, OsCal 2500 QID, TUMS 2 grams TID -- Monitor serum calcium daily, monitor magnesium and phosphorus regularly
--- NOTE | 2017-05-22 17:10 | Progress Note ---
Subjective Date of Service: May 22, 2017. Subjective Pt evaluation today including: conversation w/ patient, conversation w/ family , physical exam, chart review, lab review, review of inpatient medication list Problem List Medical Problems: (1) Dehydration Status: Acute (2) Failure to thrive Status: Acute (3) Hypomagnesemia Status: Acute (4) UTI (urinary tract infection) Status: Acute (5) Vomiting Status: Acute Review of Systems Constitutional: No see HPI, No fever, No chills, No sweats, No weight loss, No weakness, No fatigue, No problem reported Eyes: No see HPI, No worsening of vision, No eye pain, No redness, No discharge , No diplopia, No problem reported ENT: No see HPI, No hearing loss, No unusual epistaxis, No nasal symptoms, No sore throat, No tinnitus, No dental problems, No trouble swallowing, No problem reported Respiratory: No see HPI, No cough, No sputum, No wheezing, No shortness of breath, No dyspnea on exertion, No dyspnea at rest, No hemoptysis, No problem reported Cardiac: No see HPI, No chest pain, No orthopnea, No PND, No edema, No claudication, No palpitations, No problem reported Breast: No see HPI, No breast lump, No change in shape, No nipple discharge, No breast pain, No problem reported Abdomen: No see HPI, No pain, No nausea, No vomiting, No diarrhea, No constipation, No GI bleeding, No problem reported Musculoskeletal: No see HPI, No joint pain, No muscle pain, No swelling, No calf pain, No problem reported Male : No see HPI, No dysuria, No urinary frequency, No incontinence, No nocturia more than once/night, No slowing stream, No hematuria, No sexual dysfunction, No problem reported Neurologic: No see HPI, No memory loss, No paralysis, No weakness, No numbness/ tingling, No vertigo, No balance problems, No problem reported Psychiatric: No see HPI, No depression symptoms, No anhedonism, No anxiety, No insomnia, No substance abuse, No problem reported Heme: No see HPI, No abnormal bleeding/bruising, No clotting problems, No swollen lymph nodes, No night sweats, No problem reported Endo: No see HPI, No fatigue, No excessive thirst, No excessive urination, No problem reported Skin: No see HPI, No rash, No itch, No new/changing skin lesions, No color change, No bleeding, No problem reported Objective Vital Signs Date Time Temp Pulse Resp B/P (MAP) Pulse Ox O2 Delivery O2 Flow Rate FiO2 05/22/17 15:54 90 05/22/17 15:36 37.0 45 16 122/67 (85) 96 Room Air 05/22/17 14:15 36.8 83 18 118/73 (88) 94 Room Air 05/22/17 12:00 96 Room Air 05/22/17 11:56 36.9 97 16 98/51 (67) 96 Room Air 05/22/17 08:00 98 Room Air 05/22/17 07:04 36.7 80 16 109/56 (73) 96 Room Air 05/22/17 04:12 36.7 83 18 98/56 (70) 95 Room Air 05/22/17 04:00 Room Air 05/22/17 00:00 Room Air 05/21/17 22:39 36.7 81 18 125/72 (89) 97 Room Air 05/21/17 20:00 Room Air 05/21/17 19:26 37.1 81 18 106/43 (64) 96 Room Air Physical Exam General Appearance: WD/WN, no apparent distress Eyes: normal inspection, EOMI ENT: normal ENT inspection, hearing grossly normal, TMs normal, pharynx normal Neck: supple, no adenopathy, thyroid normal Respiratory/Chest: chest non-tender, lungs clear, normal breath sounds, no respiratory distress, no accessory muscle use Cardiovascular: regular rate, rhythm, no edema, no gallop, no JVD, no murmur Abdomen: normal bowel sounds, non tender, soft, no organomegaly, no pulsatile mass Extremities: normal range of motion, non-tender, normal inspection, no pedal edema, no calf tenderness 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 as tested, no motor/sensory deficits, alert, normal mood/affect, oriented x 3 Skin: normal color, warm/dry, no rash Laboratory Results Last 24 Hours Test 05/22/17 05:36 Sodium Level 139 mmol/L Potassium Level 4.3 mmol/L Chloride Level 105 mmol/L Carbon Dioxide Level 31 mmol/L Anion Gap 3.0 mmol/L Blood Urea Nitrogen 34 mg/dl Creatinine 1.42 mg/dl Est Creatinine Clear Calc Drug Dose 34.3 ml/min Estimated GFR () 52.6 Estimated GFR (Non- 45.4 BUN/Creatinine Ratio 23.8 Random Glucose 94 mg/dl Calcium Level 8.4 mg/dl Assessment and Plan 81-year-old man with metastasized prostate cancer, with osteoblastic bone metastases who presented with fatigue due to severe hypocalcemia. Assessment Severe hypocalcemia believed to be attributed to Denosumab /bone metastasis Hypomagnesemia and hypophosphatemia Metastasized prostate cancer, with osteoblastic bone metastases Complicated due to i.e. with stenotrophomonas present on admission Urinary retention with urine outflow obstruction, status post indwelling Berkowitz Right arm superficial thrombophlebitis Seborrheic dermatitis Chronic kidney disease stage III Intertrigo/oral thrush Plan Continue telemetry Continue aggressive calcium replacement as needed plus hydrochlorothiazide as blood pressure allows, unfortunately hydrochlorothiazide had to be held because his pressure was low Calcium level was 8.4, he was restarted on 1 g IV per hour infusion of calcium gluconate plus large dose of oral calcium supplement, Dr. Cifuentes is following up the patient, discussed the case with him, will start replacing calcium at night over 10 hours, plan to have a sliding scale if calcium is 9 or below around 3 PM will transfuse calcium overnight 10 g, if calcium is 9-9.5 will give 2 g IV and recheck in 8 hours, plan to consider transferring him to LTAC Continue magnesium replacement 400 mg p.o. twice daily Continue Flomax Continue ranitidine for GI prophylaxis Heparin for DVT prophylaxis Instructed to see a chicken hatchery helper for his scalp lesion Discussed case with patient will order labs in am UTI was treated Continued [facility] stay due to: multiple IV medications needed Discharge planning: uncertain
[2017-05-22] MEDS: MIRTAZAPINE TAB 15 MG TAB PO SCH (21:05)
[2017-05-22] MEDS: TAMSULOSIN HCL 0.4 MG CAP PO SCH (21:06)
[2017-05-22] MEDS: RANITIDINE HCL 150 MG TAB PO SCH (21:07)
[2017-05-23] VITALS (7 sets, daily range): BP systolic 104–141; BP diastolic 50–80; PULSE 71–95; TEMP 36.6–36.8; O2SAT 93–96
[2017-05-23] MEDS: NEOMYCIN/POLYMYX/BACITR OINT 15 GM TUBE EXT SCH ×3 (06:00→22:46)
[2017-05-23 06:17] LABS: CALCIUM 8.7 mg/dl (8.5-10.1); CREATININE 1.3 mg/dl (0.60-1.40); POTASSIUM 4.6 mmol/L (3.5-5.1)
[2017-05-23] MEDS: CALCIUM CARBONATE 500 MG CHEWABLE PO SCH ×5 (06:31→22:46)
[2017-05-23] MEDS: POT PHOSPHATE MONOBASIC W/ SOD TAB PO SCH ×4 (08:18→20:15)
[2017-05-23] MEDS: CALCITRIOL 0.5 MCG CAP PO SCH (08:20)
[2017-05-23] MEDS: ERGOCALCIFEROL 50,000 INTER.UNIT CAP PO SCH (08:21)
[2017-05-23] MEDS: MAGNESIUM OXIDE 400 MG TAB PO SCH ×2 (08:21→20:17)
[2017-05-23] MEDS: CALCIUM CARBONATE 1250MG TAB PO SCH ×4 (08:22→20:15)
[2017-05-23] MEDS: PANTOprazole SOD 40 MG TAB PO SCH (08:22)
[2017-05-23] MEDS: DOCUSATE SODIUM 100 MG CAP PO SCH ×2 (08:22→20:14)
[2017-05-23] MEDS: HYDROCHLOROTHIAZIDE 50 MG TAB PO SCH (08:24)
--- NOTE | 2017-05-23 10:23 | Nephrology Progress Note ---
Nephrology Progress Note Date of Service May 23, 2017. Chief Complaint Hypocalcemia, metastatic prostate cancer Subjective Mr. Greene was seen & examined in his hospital room this morning. He was tearful and indicated that he does not wish to transfer to an LTAC as it will be difficult for his family to visit him and he feels comfortable and reassured with the care that he is receiving at our hospital. He asked that I discuss this with his daughter in law Rona Greene as well ([phone]). Review of Systems Constitutional: No fever Cardiovascular: No chest pain Respiratory: No dyspnea at rest Abdomen: No pain, No nausea, No vomiting Extremities: No leg edema A complete review of systems was performed. Pertinent positives are noted above. All other systems are negative. Vital Signs Last 8 Hrs Date Time Temp Pulse Resp B/P (MAP) Pulse Ox O2 Delivery O2 Flow Rate FiO2 05/23/17 08:00 Room Air 05/23/17 07:16 36.8 87 20 111/50 (70) 93 Room Air 05/23/17 04:00 Room Air 05/23/17 03:44 36.7 71 16 107/57 (74) 96 Room Air Last Recorded Weight Weight (Kilograms): 62.500 Physical Exam General Appearance: no apparent distress Head: normocephalic, atraumatic Eyes: PERRL, EOMI Neck: no adenopathy Respiratory/Chest: lungs clear, no respiratory distress Cardiovascular: regular rate, rhythm Abdomen/GI: normal bowel sounds, non tender, soft Extremities/Musculoskelatal: no calf tenderness, no pedal edema Neurologic/Psych: alert, oriented x 3 Social History Drug Use: none Marital Status: Housing Status: lives with family (lives with son) 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 05/23/17 05:43 Test 05/23/17 05:43 Anion Gap 3.0 mmol/L (3-11) Est Creatinine Clear Calc Drug Dose 37.5 ml/min Estimated GFR () 58.5 Estimated GFR (Non- 50.5 BUN/Creatinine Ratio 23.5 (10-20) Calcium Level 8.7 mg/dl (8.5-10.1) Allergies Coded Allergies: No Known Allergies (Unverified , 03/15/17) Medications Current Inpatient Medications Medications (Trade) Dose Ordered Sig/Jonathan Route Start Time Stop Time Status Last Admin Dose Admin Tamsulosin HCl (Flomax Cap) 0.8 mg HS PO 03/15/17 21:00 06/09/17 20:59 05/22/17 21:06 0.8 MG Ranitidine HCl (zANTac TAB) 300 mg HS PO 03/15/17 21:00 06/09/17 20:59 05/22/17 21:07 300 MG Potassium/ Phosphorus/Sodium (Phospha 250 Neutral 155-852-130 Mg) 2 tab QID PO 04/10/17 17:00 06/09/17 16:59 05/23/17 08:18 2 TAB Ergocalciferol (Vitamin D Cap) 50,000 interunit DAILY PO 04/24/17 09:00 05/24/17 08:59 Future hold 05/23/17 08:21 50,000 INTERUNIT Magnesium Oxide (Mag-Ox Tab) 400 mg BID PO 04/26/17 09:00 05/26/17 08:59 05/23/17 08:21 400 MG Pantoprazole Sodium (Protonix Tab) 40 mg QAM PO 05/11/17 09:00 06/10/17 08:59 05/23/17 08:22 40 MG Docusate Sodium (coLACE CAP) 100 mg BID PO 05/10/17 21:00 06/09/17 20:59 05/23/17 08:22 100 MG Calcitriol (Rocaltrol Cap) 10 mcg QAM PO 05/10/17 09:00 06/09/17 08:59 05/23/17 08:20 10 MCG Hydrochlorothiazide (Hydrochlorothiazide Tab) 25 mg QAM PO 05/11/17 09:00 06/10/17 08:59 05/23/17 08:24 25 MG Acetaminophen (Tylenol Tab) 650 mg Q6H PRN PO 05/14/17 00:00 06/13/17 00:00 05/14/17 07:49 650 MG Neomycin/ Polymyxin/ Bacitracin (Neosporin Oint) 1 appln Q8 EXT 05/14/17 14:00 06/13/17 13:59 05/22/17 21:09 1 APPLN Heparin Sodium (Porcine) (Heparin 10 Unit/ ml 5 ml Flush) 1 ml PRN PRN FLUSH 05/16/17 13:30 06/15/17 13:29 05/23/17 01:32 1 ML Nystatin (Mycostatin Oint) 1 appln PRN PRN EXT 05/17/17 10:45 06/16/17 10:44 Calcium Carbonate (Tums Chew Tab) 2,000 mg 5XDQ4H PO 05/18/17 11:00 06/17/17 10:59 05/23/17 06:31 2,000 MG Calcium Carbonate (oS-Randy 500 TAB) 3,750 mg QID PO 05/18/17 13:00 06/09/17 12:59 05/23/17 08:22 3,750 MG Mirtazapine (Remeron Tab) 15 mg HS PO 05/18/17 21:00 06/17/17 20:59 05/22/17 21:05 15 MG Impression (1) Hypocalcemia (2) Prostate cancer (3) Hypertension Mr. 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 He developed severe hypocalcemia following Denosumab infusion. Renal function is normal. Calcitriol is being provided. The patient is taking PO calcium in the form of TUMs and Oscal. Aggressive replacement with PO and IV calcium continues. The patient has had associated hypomagnesemia. He is tolerating oral magnesium replacement. He also remains on a phosphorus supplement. Recommendations -- Serum calcium is 8.7 this am following 10 g infusion overnight -- Will obtain serum calcium this afternoon and resume nighttime infusion for calcium < 8.5 -- Spoke w/ Pharm-D 10: 5 half lives needed for any drug to be completely eliminated -- Blood pressure is acceptable. Continue low dose HCTZ to help retain urinary calcium -- Continue Mg Oxide 400 mg BID and Neutraphos daily. Will recheck serum Mg and PO4 in am -- Continue Calcitriol 10 mcg daily, OsCal 2500 QID, TUMS 2 grams TID -- Discussed patient & family concerns w/ primary service this morning
[2017-05-23] MEDS ORDERED: CALCIUM GLUCONATE 10% 2,000 MG in SODIUM CHLORIDE 0.9% 50ML 50 ML IV STA (10:32)
--- NOTE | 2017-05-23 10:37 | Progress Note ---
Subjective Date of Service: May 23, 2017. Subjective Pt evaluation today including: conversation w/ patient, conversation w/ family , physical exam, chart review, lab review, review of studies, conversation w/ cancer program consultant Pain: controlled PO Intake: adequate family are not happy with the suggestion to go to rehab as it will add 30 minutes to the son commute to visit. Problem List Medical Problems: (1) Dehydration Status: Acute (2) Failure to thrive Status: Acute (3) Hypomagnesemia Status: Acute (4) UTI (urinary tract infection) Status: Acute (5) Vomiting Status: Acute Review of Systems Constitutional: No see HPI, No fever, No chills, No sweats, No weight loss, No weakness, No fatigue, No problem reported Eyes: No see HPI, No worsening of vision, No eye pain, No redness, No discharge , No diplopia, No problem reported ENT: No see HPI, No hearing loss, No unusual epistaxis, No nasal symptoms, No sore throat, No tinnitus, No dental problems, No trouble swallowing, No problem reported Respiratory: No see HPI, No cough, No sputum, No wheezing, No shortness of breath, No dyspnea on exertion, No dyspnea at rest, No hemoptysis, No problem reported Cardiac: No see HPI, No chest pain, No orthopnea, No PND, No edema, No claudication, No palpitations, No problem reported Abdomen: No see HPI, No pain, No nausea, No vomiting, No diarrhea, No constipation, No GI bleeding, No problem reported Musculoskeletal: No see HPI, No joint pain, No muscle pain, No swelling, No calf pain, No problem reported Male : No see HPI, No dysuria, No urinary frequency, No incontinence, No nocturia more than once/night, No slowing stream, No hematuria, No sexual dysfunction, No problem reported Neurologic: No see HPI, No memory loss, No paralysis, No weakness, No numbness/ tingling, No vertigo, No balance problems, No problem reported Psychiatric: No see HPI, No depression symptoms, No anhedonism, No anxiety, No insomnia, No substance abuse, No problem reported Heme: No see HPI, No abnormal bleeding/bruising, No clotting problems, No swollen lymph nodes, No night sweats, No problem reported Endo: No see HPI, No fatigue, No excessive thirst, No excessive urination, No problem reported Skin: No see HPI, No rash, No itch, No new/changing skin lesions, No color change, No bleeding, No problem reported Objective Vital Signs Date Time Temp Pulse Resp B/P (MAP) Pulse Ox O2 Delivery O2 Flow Rate FiO2 05/23/17 08:00 Room Air 05/23/17 07:16 36.8 87 20 111/50 (70) 93 Room Air 05/23/17 04:00 Room Air 05/23/17 03:44 36.7 71 16 107/57 (74) 96 Room Air 05/23/17 00:00 Room Air 05/22/17 23:34 36.6 78 20 122/64 (83) 96 Room Air 05/22/17 20:00 Room Air 05/22/17 16:00 96 Room Air 05/22/17 15:54 90 05/22/17 15:36 37.0 45 16 122/67 (85) 96 Room Air 05/22/17 14:15 36.8 83 18 118/73 (88) 94 Room Air 05/22/17 12:00 96 Room Air 05/22/17 11:56 36.9 97 16 98/51 (67) 96 Room Air Physical Exam General Appearance: WD/WN, no apparent distress Eyes: normal inspection, EOMI ENT: normal ENT inspection, hearing grossly normal Neck: supple Respiratory/Chest: chest non-tender, lungs clear, normal breath sounds, no respiratory distress, no accessory muscle use Cardiovascular: regular rate, rhythm, no edema, no gallop, no JVD, no murmur Abdomen: normal bowel sounds, non tender, soft, no organomegaly, no pulsatile mass Extremities: normal range of motion, non-tender, normal inspection, no pedal edema, no calf tenderness Neurologic/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: 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 II-XII nml as tested, no motor/sensory deficits, alert, normal mood/affect, oriented x 3 Skin: normal color, warm/dry, no rash Laboratory Results Last 24 Hours Test 05/23/17 05:43 Sodium Level 139 mmol/L Potassium Level 4.6 mmol/L Chloride Level 106 mmol/L Carbon Dioxide Level 30 mmol/L Anion Gap 3.0 mmol/L Blood Urea Nitrogen 31 mg/dl Creatinine 1.30 mg/dl Est Creatinine Clear Calc Drug Dose 37.5 ml/min Estimated GFR () 58.5 Estimated GFR (Non- 50.5 BUN/Creatinine Ratio 23.5 Random Glucose 96 mg/dl Calcium Level 8.7 mg/dl Assessment and Plan 81-year-old man with metastasized prostate cancer, with osteoblastic bone metastases who presented with fatigue due to severe hypocalcemia. Assessment Severe hypocalcemia believed to be attributed to Denosumab /bone metastasis Hypomagnesemia and hypophosphatemia Metastasized prostate cancer, with osteoblastic bone metastases Complicated due to i.e. with stenotrophomonas present on admission Urinary retention with urine outflow obstruction, status post indwelling Berkowitz Right arm superficial thrombophlebitis Seborrheic dermatitis Chronic kidney disease stage III Intertrigo/oral thrush Plan Continue telemetry suggested the following; infuse 1000cc of NSS plus 10 grams of calcium gluconate every night for 10 hours at rate of 100cc/hr. start at 8 pm to 6am infuse 10 grams of calcium gluconate check calcium level every 12 hours if below 8 , give 4 grams of calcium gluconate IV and call MD if 8-8.5 give 4 grams of calcium IV if 8.6-9 give 2 grams of calcium gluconate IV if 9.1-9.5 give 1 gram of calcium gluconate IV if > 9.6 hold the night calcium infusion Dr. Cifuentes is following up the patient, he agreed with the plan plan to consider transferring him to LTAC Continue magnesium replacement 400 mg p.o. twice daily Continue Flomax Continue ranitidine for GI prophylaxis Heparin for DVT prophylaxis Instructed to see a building supervisor for his scalp lesion Discussed case with patient will order labs in am UTI was treated Continued [facility] stay due to: multiple IV medications needed Discharge planning: uncertain
[2017-05-23] MEDS ORDERED: SODIUM CHLORIDE 0.9% IV SCH (20:00)
[2017-05-23] MEDS ORDERED: CALCIUM GLUCONATE IV SCH (20:00)
[2017-05-23] MEDS: RANITIDINE HCL 150 MG TAB PO SCH (20:14)
[2017-05-23] MEDS: TAMSULOSIN HCL 0.4 MG CAP PO SCH (20:16)
[2017-05-23] MEDS: MIRTAZAPINE TAB 15 MG TAB PO SCH (20:17)
[2017-05-24] VITALS (7 sets, daily range): BP systolic 100–137; BP diastolic 45–70; PULSE 63–110; TEMP 36.6–36.8; O2SAT 95–97
[2017-05-24] MEDS: NEOMYCIN/POLYMYX/BACITR OINT 15 GM TUBE EXT SCH ×3 (06:00→21:06)
[2017-05-24] MEDS: CALCIUM CARBONATE 500 MG CHEWABLE PO SCH ×5 (06:25→22:38)
[2017-05-24 06:33] LABS: CALCIUM 10.9 mg/dl (8.5-10.1); CREATININE 1.39 mg/dl (0.60-1.40); PHOSPHORUS 3.4 mg/dl (2.5-4.9); POTASSIUM 4.4 mmol/L (3.5-5.1)
[2017-05-24] MEDS: MAGNESIUM OXIDE 400 MG TAB PO SCH ×2 (08:36→21:05)
[2017-05-24] MEDS: PANTOprazole SOD 40 MG TAB PO SCH (08:37)
[2017-05-24] MEDS: POT PHOSPHATE MONOBASIC W/ SOD TAB PO SCH ×4 (08:37→21:05)
[2017-05-24] MEDS: HYDROCHLOROTHIAZIDE 50 MG TAB PO SCH (08:37)
[2017-05-24] MEDS: CALCITRIOL 0.5 MCG CAP PO SCH (08:38)
[2017-05-24] MEDS: DOCUSATE SODIUM 100 MG CAP PO SCH ×2 (08:39→21:03)
[2017-05-24] MEDS: CALCIUM CARBONATE 1250MG TAB PO SCH ×4 (08:39→21:02)
--- NOTE | 2017-05-24 11:48 | Nephrology Progress Note ---
Nephrology Progress Note Date of Service May 24, 2017. Chief Complaint Hypocalcemia, metastatic prostate cancer Subjective Mr. Greene was seen & examined in his hospital room this morning. He denies muscle cramping or weakness. He voices no new medical concerns. Review of Systems Constitutional: No fever Cardiovascular: No chest pain, No palpitations Respiratory: No dyspnea at rest Abdomen: No pain, No nausea, No vomiting Extremities: No leg edema A complete review of systems was performed. Pertinent positives are noted above. All other systems are negative. Vital Signs Last 8 Hrs Date Time Temp Pulse Resp B/P (MAP) Pulse Ox O2 Delivery O2 Flow Rate FiO2 05/24/17 11:33 36.8 87 18 102/53 (69) 97 Room Air 05/24/17 08:36 92 137/70 (92) 05/24/17 08:00 Room Air 05/24/17 07:22 36.7 110 18 123/60 (81) 97 Room Air 05/24/17 04:00 Room Air Last Recorded Weight Weight (Kilograms): 63.800 Physical Exam General Appearance: no apparent distress Head: normocephalic, atraumatic Eyes: PERRL, EOMI Neck: no adenopathy Respiratory/Chest: lungs clear, no respiratory distress Cardiovascular: regular rate, rhythm Abdomen/GI: normal bowel sounds, non tender, soft Extremities/Musculoskelatal: no calf tenderness, no pedal edema Neurologic/Psych: alert, oriented x 3 Social History Drug Use: none Marital Status: Housing Status: lives with family (lives with son) 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 05/24/17 05:24 Test 05/23/17 15:03 05/24/17 05:24 05/24/17 09:24 Calcium Level 9.1 mg/dl (8.5-10.1) 10.9 mg/dl (8.5-10.1) 10.8 mg/dl (8.5-10.1) Anion Gap 3.0 mmol/L (3-11) Est Creatinine Clear Calc Drug Dose 35.0 ml/min Estimated GFR () 53.9 Estimated GFR (Non- 46.5 BUN/Creatinine Ratio 22.0 (10-20) Phosphorus Level 3.4 mg/dl (2.5-4.9) Magnesium Level 1.8 mg/dl (1.8-2.4) Allergies Coded Allergies: No Known Allergies (Unverified , 03/15/17) Medications Current Inpatient Medications Medications (Trade) Dose Ordered Sig/Jonathan Route Start Time Stop Time Status Last Admin Dose Admin Tamsulosin HCl (Flomax Cap) 0.8 mg HS PO 03/15/17 21:00 06/09/17 20:59 05/23/17 20:16 0.8 MG Ranitidine HCl (zANTac TAB) 300 mg HS PO 03/15/17 21:00 06/09/17 20:59 05/23/17 20:14 300 MG Potassium/ Phosphorus/Sodium (Phospha 250 Neutral 155-852-130 Mg) 2 tab QID PO 04/10/17 17:00 06/09/17 16:59 05/24/17 08:37 2 TAB Magnesium Oxide (Mag-Ox Tab) 400 mg BID PO 04/26/17 09:00 05/26/17 08:59 05/24/17 08:36 400 MG Pantoprazole Sodium (Protonix Tab) 40 mg QAM PO 05/11/17 09:00 06/10/17 08:59 05/24/17 08:37 40 MG Docusate Sodium (coLACE CAP) 100 mg BID PO 05/10/17 21:00 06/09/17 20:59 05/24/17 08:39 100 MG Calcitriol (Rocaltrol Cap) 10 mcg QAM PO 05/10/17 09:00 06/09/17 08:59 05/24/17 08:38 10 MCG Hydrochlorothiazide (Hydrochlorothiazide Tab) 25 mg QAM PO 05/11/17 09:00 06/10/17 08:59 05/24/17 08:37 25 MG Acetaminophen (Tylenol Tab) 650 mg Q6H PRN PO 05/14/17 00:00 06/13/17 00:00 05/14/17 07:49 650 MG Neomycin/ Polymyxin/ Bacitracin (Neosporin Oint) 1 appln Q8 EXT 05/14/17 14:00 06/13/17 13:59 05/23/17 22:46 1 APPLN Heparin Sodium (Porcine) (Heparin 10 Unit/ ml 5 ml Flush) 1 ml PRN PRN FLUSH 05/16/17 13:30 06/15/17 13:29 05/24/17 09:36 5 ML Nystatin (Mycostatin Oint) 1 appln PRN PRN EXT 05/17/17 10:45 06/16/17 10:44 Calcium Carbonate (Tums Chew Tab) 2,000 mg 5XDQ4H PO 05/18/17 11:00 06/17/17 10:59 05/24/17 11:29 2,000 MG Calcium Carbonate (oS-Randy 500 TAB) 3,750 mg QID PO 05/18/17 13:00 06/09/17 12:59 05/24/17 08:39 3,750 MG Mirtazapine (Remeron Tab) 15 mg HS PO 05/18/17 21:00 06/17/17 20:59 05/23/17 20:17 15 MG Impression (1) Hypocalcemia (2) Prostate cancer (3) Hypertension Mr. 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 He developed severe hypocalcemia following Denosumab infusion. Renal function is normal. Calcitriol is being provided. The patient is taking PO calcium in the form of TUMs and Oscal. Aggressive replacement with PO and IV calcium continues. The patient has had associated hypomagnesemia. He is tolerating oral magnesium replacement. He also remains on a phosphorus supplement. Recommendations -- Serum calcium is 10.8 this am following 10 g infusion overnight (confirmed by 2nd draw) -- Will obtain serum calcium at 3 pm today and resume nighttime infusion for calcium < 8.5 -- Spoke w/ Pharm-D 05/22: half lives needed for any drug to be completely eliminated -- Blood pressure is acceptable. Continue low dose HCTZ to help retain urinary calcium -- Continue Mg Oxide 400 mg BID and Neutraphos daily. Will recheck serum Mg and PO4 in am -- Continue Calcitriol 10 mcg daily, OsCal 2500 QID, TUMS 2 grams TID
--- NOTE | 2017-05-24 12:23 | Progress Note ---
Subjective Date of Service: May 24, 2017. Subjective Pt evaluation today including: conversation w/ patient, physical exam, chart review, lab review, review of studies, review of inpatient medication list Pain: controlled PO Intake: adequate Voiding: no voiding problems feeling good no new complaint Problem List Medical Problems: (1) Dehydration Status: Acute (2) Failure to thrive Status: Acute (3) Hypomagnesemia Status: Acute (4) UTI (urinary tract infection) Status: Acute (5) Vomiting Status: Acute Review of Systems Review of system Constitutional: No fever / no chills / no sweats / no weakness / no fatigue Eyes: no blurring of vision / no eye pain / no discharge / no redness ENT: no hearing loss / no epistaxis /no swallowing problems Respiratory: no cough / no wheezing / no SOB / no hemoptysis Cardiovascular: no Chest pain / no lower extremity edema / no palpitation Abdomen: no pain / no nausea / no vomiting / no constipation Musculoskeletal: no joint pain / no muscle pain / no joint swelling Genitourinary: no dysuria / no incontinence / no urinary retention Neurologic: no focal weakness / no numbness/tingling / no ataxia Psychiatric: no depression symptoms / no anxiety / no insomnia Endocrine: no excessive thirst / no excessive urination Hematologic: no abnormal bleeding / no bruising / no LN swelling Skin: No rash / no pallor Medications Current Inpatient Medications Medications (Trade) Dose Ordered Sig/Jonathan Route Start Time Stop Time Status Last Admin Dose Admin Tamsulosin HCl (Flomax Cap) 0.8 mg HS PO 03/15/17 21:00 06/09/17 20:59 05/23/17 20:16 0.8 MG Ranitidine HCl (zANTac TAB) 300 mg HS PO 03/15/17 21:00 06/09/17 20:59 05/23/17 20:14 300 MG Potassium/ Phosphorus/Sodium (Phospha 250 Neutral 155-852-130 Mg) 2 tab QID PO 04/10/17 17:00 06/09/17 16:59 05/24/17 08:37 2 TAB Magnesium Oxide (Mag-Ox Tab) 400 mg BID PO 04/26/17 09:00 05/26/17 08:59 05/24/17 08:36 400 MG Pantoprazole Sodium (Protonix Tab) 40 mg QAM PO 05/11/17 09:00 06/10/17 08:59 05/24/17 08:37 40 MG Docusate Sodium (coLACE CAP) 100 mg BID PO 05/10/17 21:00 06/09/17 20:59 05/24/17 08:39 100 MG Calcitriol (Rocaltrol Cap) 10 mcg QAM PO 05/10/17 09:00 06/09/17 08:59 05/24/17 08:38 10 MCG Hydrochlorothiazide (Hydrochlorothiazide Tab) 25 mg QAM PO 05/11/17 09:00 06/10/17 08:59 05/24/17 08:37 25 MG Acetaminophen (Tylenol Tab) 650 mg Q6H PRN PO 05/14/17 00:00 06/13/17 00:00 05/14/17 07:49 650 MG Neomycin/ Polymyxin/ Bacitracin (Neosporin Oint) 1 appln Q8 EXT 05/14/17 14:00 06/13/17 13:59 05/23/17 22:46 1 APPLN Heparin Sodium (Porcine) (Heparin 10 Unit/ ml 5 ml Flush) 1 ml PRN PRN FLUSH 05/16/17 13:30 06/15/17 13:29 05/24/17 09:36 5 ML Nystatin (Mycostatin Oint) 1 appln PRN PRN EXT 05/17/17 10:45 06/16/17 10:44 Calcium Carbonate (Tums Chew Tab) 2,000 mg 5XDQ4H PO 05/18/17 11:00 06/17/17 10:59 05/24/17 11:29 2,000 MG Calcium Carbonate (oS-Randy 500 TAB) 3,750 mg QID PO 05/18/17 13:00 06/09/17 12:59 05/24/17 08:39 3,750 MG Mirtazapine (Remeron Tab) 15 mg HS PO 05/18/17 21:00 06/17/17 20:59 05/23/17 20:17 15 MG Objective Vital Signs Date Time Temp Pulse Resp B/P (MAP) Pulse Ox O2 Delivery O2 Flow Rate FiO2 05/24/17 11:33 36.8 87 18 102/53 (69) 97 Room Air 05/24/17 11:31 36.8 87 18 102/53 (69) 97 05/24/17 08:36 92 137/70 (92) 05/24/17 08:00 Room Air 05/24/17 07:22 36.7 110 18 123/60 (81) 97 Room Air 05/24/17 04:00 Room Air 05/24/17 03:25 36.8 63 16 104/52 (69) 96 Room Air 05/24/17 00:00 Room Air 05/23/17 23:55 36.6 87 18 114/58 (76) 93 Room Air 05/23/17 20:59 36.8 92 19 117/63 (81) 95 Room Air 05/23/17 20:00 95 Room Air 05/23/17 16:00 Room Air 05/23/17 15:59 36.7 85 20 104/52 (69) 95 Room Air Physical Exam Comments: Physical examination General patient appears to be comfortable, not in acute distress HEENT: Atraumatic , normocephalic /no jaundice /no pallor /anicteric /no dry mucous membrane /normal external ear inspection Neck: Supple /no swelling /central trach Heart: S1/S2 normal/regular rate and rhythm/no gallop /no rub /no murmur Lungs: Clear to auscultation bilaterally/normal chest with expansion/no rhonchi/ no rales/no wheezing/no use of accessory muscles of respiration Abdomen: Soft/nontender/no guarding/no rebound/no organomegaly/no pulsatile mass Musculoskeletal: No swelling/no edema/no tenderness/normal range of motion Neuro exam: Awake alert oriented 3/cranial nerves II through XII appear to be intact/sensation intact/moves all extremities/no abnormal movements Psychiatric evaluation: No depressed mood/normal affect Skin: No rash on exposed skin area/no erythema Extremity: Normal pulse/no pitting edema/no clubbing or cyanosis Endocrine/lymphatic: No obvious lymphadenopathy /no lymphedema Laboratory Results Last 24 Hours Test 05/23/17 15:03 05/24/17 05:24 05/24/17 09:24 Calcium Level 9.1 mg/dl 10.9 mg/dl 10.8 mg/dl Sodium Level 137 mmol/L Potassium Level 4.4 mmol/L Chloride Level 105 mmol/L Carbon Dioxide Level 29 mmol/L Anion Gap 3.0 mmol/L Blood Urea Nitrogen 31 mg/dl Creatinine 1.39 mg/dl Est Creatinine Clear Calc Drug Dose 35.0 ml/min Estimated GFR () 53.9 Estimated GFR (Non- 46.5 BUN/Creatinine Ratio 22.0 Random Glucose 102 mg/dl Phosphorus Level 3.4 mg/dl Magnesium Level 1.8 mg/dl Assessment and Plan 81-year-old man with metastasized prostate cancer, with osteoblastic bone metastases who presented with fatigue due to severe hypocalcemia. Assessment Severe hypocalcemia believed to be attributed to Denosumab /bone metastasis Hypomagnesemia and hypophosphatemia Metastasized prostate cancer, with osteoblastic bone metastases Complicated due to i.e. with stenotrophomonas present on admission Urinary retention with urine outflow obstruction, status post indwelling Berkowitz Right arm superficial thrombophlebitis Seborrheic dermatitis Chronic kidney disease stage III Intertrigo/oral thrush Plan Continue telemetry calcium level today is 10.7 , hold calcium infusion at night check calcium level every 12 hours if below 8 , give 4 grams of calcium gluconate IV and call MD if 8-8.5 give 4 grams of calcium IV if 8.6-9 give 2 grams of calcium gluconate IV if 9.1-9.5 give 1 gram of calcium gluconate IV if > 9.6 do not give any calcium Dr. Cifuentes is following up the patient, he agreed with the plan plan to consider transferring him to LT[facility] Continue magnesium replacement 400 mg p.o. twice daily Continue Flomax Continue ranitidine for GI prophylaxis Heparin for DVT prophylaxis Instructed to see a brass molder for his scalp lesion Discussed case with patient will order labs in am UTI was treated urologist recommended keeping th efoley until he see him as an out patient Continued [facility] stay due to: multiple IV medications needed Discharge planning: uncertain
[2017-05-24 13:24] LABS: CREATININE 1.43 mg/dl (0.60-1.40); POTASSIUM 4.1 mmol/L (3.5-5.1)
[2017-05-24] MEDS ORDERED: NURSING VERBAL MED ORDER ONE ×2 (16:15→19:15)
[2017-05-24] MEDS ORDERED: CALCIUM GLUCONATE 10% 1,000 MG in SODIUM CHLORIDE 0.9% 50ML 50 ML IV ONE (16:30)
[2017-05-24] MEDS ORDERED: CALCIUM GLUCONATE 10% 2,000 MG in SODIUM CHLORIDE 0.9% 50ML 50 ML IV STA (19:16)
[2017-05-24] MEDS: RANITIDINE HCL 150 MG TAB PO SCH (21:03)
[2017-05-24] MEDS: TAMSULOSIN HCL 0.4 MG CAP PO SCH (21:04)
[2017-05-24] MEDS: MIRTAZAPINE TAB 15 MG TAB PO SCH (21:04)
[2017-05-25 02:17] LABS: BASO % 0.3 %; BASO ABS # 0.02 K/uL (0-0.2); EOS % 4.5 %; HEMATOCRIT 32.7 % (42-52); HEMOGLOBIN 11.3 g/dL (14.0-18.0); IG# 0.03 K/uL (0.00-0.02); LYMPH % 19.6 %; LYMPH ABS # 1.31 K/uL (1.2-3.4); MEAN CELL VOLUME 88.6 fL (80-100); MEAN CORPUSCULAR HEMOGLOBIN 30.6 pg (25-34); MEAN CORPUSCULAR HGB CONC 34.6 g/dl (32-36); MEAN PLATELET VOLUME 8.3 fL (7.4-10.4); MONO % 8.8 %; MONO ABS # 0.59 K/uL (0.11-0.59); NEUT % 66.4 %; NEUT ABS # 4.43 K/uL (1.4-6.5); PLATELET COUNT 202 K/uL (130-400); RED CELL DISTRIBUTION WIDTH CV 14.2 % (11.5-14.5); RED CELL DISTRIBUTION WIDTH SD 46.3 fL (36.4-46.3); WHITE BLOOD COUNT 6.68 K/uL (4.8-10.8)
[2017-05-25 02:36] LABS: ALBUMIN 3.2 gm/dl (3.4-5.0); CALCIUM 8.8 mg/dl (8.5-10.1); CREATININE 1.48 mg/dl (0.60-1.40); POTASSIUM 4.2 mmol/L (3.5-5.1)
[2017-05-25 02:39] LABS: PHOSPHORUS 3.9 mg/dl (2.5-4.9); TOTAL PROTEIN 6.7 gm/dl (6.4-8.2)
[2017-05-25] MEDS ORDERED: NURSING DECISION MEDICATION ORDER SCH (03:00)
[2017-05-25] MEDS ORDERED: CALCIUM GLUCONATE 10% 4,000 MG in SODIUM CHLORIDE 0.9% 100ML 100 ML IV SCH (03:15)
[2017-05-25] MEDS ORDERED: PROMETHAZINE HCL INJ 25 MG in SODIUM CHLORIDE 0.9% 50ML 50 ML IV ONE (05:00)
[2017-05-25] MEDS: NEOMYCIN/POLYMYX/BACITR OINT 15 GM TUBE EXT SCH ×3 (06:00→21:21)
[2017-05-25] MEDS: CALCIUM CARBONATE 500 MG CHEWABLE PO SCH ×5 (06:35→22:42)
[2017-05-25] MEDS ORDERED: ONDANSETRON INJ 2 MG/ML 2 ML VIAL IV PRN (07:15)
[2017-05-25 07:19] VITALS: BP 110/65; PULSE 106; TEMP 37.3; O2SAT 93
--- NOTE | 2017-05-25 07:28 | Progress Note ---
Progress Note Date of Service May 25, 2017. Progress Note Called for a code blue at approximately 3am - pt had lost consciousness on toilet. By the time I arrived upstairs he had regained consciousness and denied any specific symptoms. He had had an identical episode 2 weeks prior. An EKG did not support acute ischemia. This likely represents a vasovagal episode as previous. Information was signed out to AM team.
[2017-05-25 07:32] LABS: BASO % 0.1 %; BASO ABS # 0.01 K/uL (0-0.2); EOS % 3.7 %; EOS ABS # 0.26 K/uL (0-0.5); HEMOGLOBIN 11.9 g/dL (14.0-18.0); IG# 0.02 K/uL (0.00-0.02); LYMPH % 7.4 %; LYMPH ABS # 0.52 K/uL (1.2-3.4); MEAN CELL VOLUME 87.9 fL (80-100); MEAN CORPUSCULAR HEMOGLOBIN 29.9 pg (25-34); MEAN PLATELET VOLUME 7.9 fL (7.4-10.4); MONO % 6.7 %; MONO ABS # 0.47 K/uL (0.11-0.59); NEUT % 81.8 %; NEUT ABS # 5.76 K/uL (1.4-6.5); PLATELET COUNT 176 K/uL (130-400); RED CELL DISTRIBUTION WIDTH CV 14.3 % (11.5-14.5); RED CELL DISTRIBUTION WIDTH SD 45.9 fL (36.4-46.3); WHITE BLOOD COUNT 7.04 K/uL (4.8-10.8)
[2017-05-25 07:49] LABS: CALCIUM 9.4 mg/dl (8.5-10.1); CREATININE 1.53 mg/dl (0.60-1.40); POTASSIUM 4.3 mmol/L (3.5-5.1)
--- NOTE | 2017-05-25 08:21 | DIAGNOSTIC IMAGING REPORT ---
ABDOMEN 2VIEW W/PA CHEST RTN HISTORY: 81 years-old Male tachy, vomiting ?aspiration PNA ?obstruction acute tachycardia with vomiting COMPARISON: Chest radiograph 05/19/2017 TECHNIQUE: AP view the chest with supine, left lateral decubitus views of the abdomen FINDINGS: Cardiomediastinal and hilar silhouettes are within normal limits. Atherosclerosis of the aorta. Left-sided PICC appears unchanged. Unchanged nodular opacity projecting over the left lung base, possibly nipple shadow. No pneumothorax, pleural effusion, focal airspace consolidation or overt pulmonary edema. Multifocal osseous blastic metastatic foci again seen throughout the axial and appendicular skeletal system. Bowel gas pattern appears nonobstructive. No gross pneumoperitoneum or pneumatosis. No urolith or fracture identified. IMPRESSION: 1. No acute process of the chest. 2. Nonobstructive bowel gas pattern without pneumoperitoneum. 3. Diffuse blastic metastatic disease throughout the axial and appendicular skeletal system redemonstrated. The above report was generated using voice recognition software. It may contain grammatical, syntax or spelling errors. Electronically signed by: Berlin Tobar M.D. 05/25/2017 8:20 AM Dictated Date/Time: 05/25/2017 8:18 AM
[2017-05-25] MEDS: DOCUSATE SODIUM 100 MG CAP PO SCH ×2 (09:00→21:19)
--- NOTE | 2017-05-25 09:21 | DIAGNOSTIC IMAGING REPORT ---
CT SCAN OF THE BRAIN WITHOUT IV CONTRAST CLINICAL HISTORY: Syncope. COMPARISON STUDY: CT of the brain dated 02/20/2017. TECHNIQUE: Unenhanced axial CT scan of the brain is performed from the vertex to the skull base. A dose lowering technique was utilized adhering to the principles of ALARA. CT DOSE: 537.48 mGy.cm FINDINGS: Brain parenchyma: There are age-related involutional changes noting moderate confluent subcortical and periventricular microangiopathic change. There is no hemorrhage, mass effect, or evidence of acute territorial ischemia by CT criteria. Banuelos-white matter is preserved. No extra-axial fluid collection is seen. Ventricles, sulci, cisterns: Prominent secondary to involutional change. Intracranial vasculature: There is atherosclerotic calcification of the cavernous carotid and vertebral arteries. Calvarium: The skeletal structures are osteopenic. No depressed calvarial fracture is seen. Sinuses and mastoids: A small retention cyst is noted in the right maxillary antrum. Mild mucosal thickening is seen in the maxillary antra and ethmoid sinuses. The remaining visualized paranasal sinuses are clear. The mastoid air cells are well pneumatized. Orbits: The bony orbits are grossly intact. There are bilateral ocular lens implants. IMPRESSION: There is no hemorrhage, mass effect, or evidence of acute territorial ischemia by CT criteria. Electronically signed by: Zoltan Barfield M.D. 05/25/2017 9:20 AM Dictated Date/Time: 05/25/2017 9:14 AM
[2017-05-25] MEDS: SODIUM CHLORIDE 0.9% 1000ML 1,000 ML IV SCH ×2 (09:32→22:43)
--- NOTE | 2017-05-25 09:36 | Nephrology Progress Note ---
Nephrology Progress Note Date of Service May 25, 2017. Chief Complaint Hypocalcemia, metastatic prostate cancer Subjective Mr. Greene was seen & examined in his hospital room this morning. Dom payne called at 3 am. Patient was found unresponsive on the commode. He was placed supine in bed and recovered. Head CT was negative for bleed or mass effect. This morning he appears to be neurologically intact. His only complaint is diarrhea overnight. He required only 3 g calcium gluconate overnight. He did not require a continuous infusion. Review of Systems Constitutional: No fever Cardiovascular: No chest pain Respiratory: No dyspnea at rest Abdomen: No pain, No nausea, No vomiting Extremities: No leg edema A complete review of systems was performed. Pertinent positives are noted above. All other systems are negative. Vital Signs Last 8 Hrs Date Time Temp Pulse Resp B/P (MAP) Pulse Ox O2 Delivery O2 Flow Rate FiO2 05/25/17 08:00 Room Air 05/25/17 07:19 37.3 106 18 110/65 (80) 93 Room Air 05/25/17 04:00 Room Air Last Recorded Weight Weight (Kilograms): 61.100 Physical Exam General Appearance: no apparent distress Head: normocephalic, atraumatic Eyes: PERRL, EOMI Neck: no adenopathy Respiratory/Chest: lungs clear, no respiratory distress Cardiovascular: regular rate, rhythm Abdomen/GI: normal bowel sounds, non tender, soft Extremities/Musculoskelatal: no calf tenderness, no pedal edema Neurologic/Psych: alert, oriented x 3 Social History Drug Use: none Marital Status: Housing Status: lives with family (lives with son) 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 05/25/17 01:53 Red Blood Count 3.69, Mean Corpuscular Volume 88.6, Mean Corpuscular Hemoglobin 30.6, Mean Corpuscular Hemoglobin Concent 34.6, Mean Platelet Volume 8.3, Neutrophils (%) (Auto) 66.4, Lymphocytes (%) (Auto) 19.6, Monocytes (%) (Auto) 8.8, Eosinophils (%) (Auto) 4.5, Basophils (%) (Auto) 0.3, Neutrophils # (Auto) 4.43, Lymphocytes # (Auto) 1.31, Monocytes # (Auto) 0.59, Eosinophils # (Auto) 0.30, Basophils # (Auto) 0.02 05/25/17 07:21 Red Blood Count 3.98, Mean Corpuscular Volume 87.9, Mean Corpuscular Hemoglobin 29.9, Mean Corpuscular Hemoglobin Concent 34.0, Mean Platelet Volume 7.9, Neutrophils (%) (Auto) 81.8, Lymphocytes (%) (Auto) 7.4, Monocytes (%) (Auto) 6.7, Eosinophils (%) (Auto) 3.7, Basophils (%) (Auto) 0.1, Neutrophils # (Auto) 5.76, Lymphocytes # (Auto) 0.52, Monocytes # (Auto) 0.47, Eosinophils # (Auto) 0.26, Basophils # (Auto) 0.01 05/24/17 12:40 05/25/17 01:53 05/25/17 07:21 Test 05/24/17 12:40 05/24/17 15:20 05/24/17 17:57 05/25/17 01:53 Anion Gap 7.0 mmol/L (3-11) 4.0 mmol/L (3-11) Est Creatinine Clear Calc Drug Dose 34.0 ml/min 32.9 ml/min Estimated GFR () 52.1 50.0 Estimated GFR (Non- 45.0 43.1 BUN/Creatinine Ratio 20.7 (10-20) 21.8 (10-20) Calcium Level 10.0 mg/dl (8.5-10.1) 9.3 mg/dl (8.5-10.1) 9.5 mg/dl (8.5-10.1) 8.8 mg/dl (8.5-10.1) White Blood Count 6.68 K/uL (4.8-10.8) Red Blood Count 3.69 M/uL (4.7-6.1) Hemoglobin 11.3 g/dL (14.0-18.0) Hematocrit 32.7 % (42-52) Mean Corpuscular Volume 88.6 fL (80-100) Mean Corpuscular Hemoglobin 30.6 pg (25-34) Mean Corpuscular Hemoglobin Concent 34.6 g/dl (32-36) Platelet Count 202 K/uL (130-400) Mean Platelet Volume 8.3 fL (7.4-10.4) Neutrophils (%) (Auto) 66.4 % Lymphocytes (%) (Auto) 19.6 % Monocytes (%) (Auto) 8.8 % Eosinophils (%) (Auto) 4.5 % Basophils (%) (Auto) 0.3 % Neutrophils # (Auto) 4.43 K/uL (1.4-6.5) Lymphocytes # (Auto) 1.31 K/uL (1.2-3.4) Monocytes # (Auto) 0.59 K/uL (0.11-0.59) Eosinophils # (Auto) 0.30 K/uL (0-0.5) Basophils # (Auto) 0.02 K/uL (0-0.2) RDW Standard Deviation 46.3 fL (36.4-46.3) RDW Coefficient of Variation 14.2 % (11.5-14.5) Immature Granulocyte % (Auto) 0.4 % Immature Granulocyte # (Auto) 0.03 K/uL (0.00-0.02) Phosphorus Level 3.9 mg/dl (2.5-4.9) Magnesium Level 1.7 mg/dl (1.8-2.4) Total Bilirubin 0.3 mg/dl (0.2-1) Aspartate Amino Transf (AST/SGOT) 20 U/L (15-37) Alanine Aminotransferase (ALT/SGPT) 19 U/L (12-78) Alkaline Phosphatase 379 U/L (45-117) Total Protein 6.7 gm/dl (6.4-8.2) Albumin 3.2 gm/dl (3.4-5.0) Globulin 3.5 gm/dl (2.5-4.0) Albumin/Globulin Ratio 0.9 (0.9-2) Test 05/25/17 03:06 05/25/17 07:21 Bedside Glucose 141 mg/dl (70-99) White Blood Count 7.04 K/uL (4.8-10.8) Red Blood Count 3.98 M/uL (4.7-6.1) Hemoglobin 11.9 g/dL (14.0-18.0) Hematocrit 35.0 % (42-52) Mean Corpuscular Volume 87.9 fL (80-100) Mean Corpuscular Hemoglobin 29.9 pg (25-34) Mean Corpuscular Hemoglobin Concent 34.0 g/dl (32-36) Platelet Count 176 K/uL (130-400) Mean Platelet Volume 7.9 fL (7.4-10.4) Neutrophils (%) (Auto) 81.8 % Lymphocytes (%) (Auto) 7.4 % Monocytes (%) (Auto) 6.7 % Eosinophils (%) (Auto) 3.7 % Basophils (%) (Auto) 0.1 % Neutrophils # (Auto) 5.76 K/uL (1.4-6.5) Lymphocytes # (Auto) 0.52 K/uL (1.2-3.4) Monocytes # (Auto) 0.47 K/uL (0.11-0.59) Eosinophils # (Auto) 0.26 K/uL (0-0.5) Basophils # (Auto) 0.01 K/uL (0-0.2) RDW Standard Deviation 45.9 fL (36.4-46.3) RDW Coefficient of Variation 14.3 % (11.5-14.5) Immature Granulocyte % (Auto) 0.3 % Immature Granulocyte # (Auto) 0.02 K/uL (0.00-0.02) Anion Gap 6.0 mmol/L (3-11) Est Creatinine Clear Calc Drug Dose 31.6 ml/min Estimated GFR () 48.0 Estimated GFR (Non- 41.4 BUN/Creatinine Ratio 22.9 (10-20) Calcium Level 9.4 mg/dl (8.5-10.1) Allergies Coded Allergies: No Known Allergies (Unverified , 03/15/17) Medications Current Inpatient Medications Medications (Trade) Dose Ordered Sig/Jonathan Route Start Time Stop Time Status Last Admin Dose Admin Tamsulosin HCl (Flomax Cap) 0.8 mg HS PO 03/15/17 21:00 06/09/17 20:59 05/24/17 21:04 0.8 MG Ranitidine HCl (zANTac TAB) 300 mg HS PO 03/15/17 21:00 06/09/17 20:59 05/24/17 21:03 300 MG Potassium/ Phosphorus/Sodium (Phospha 250 Neutral 155-852-130 Mg) 2 tab QID PO 04/10/17 17:00 06/09/17 16:59 05/24/17 21:05 2 TAB Magnesium Oxide (Mag-Ox Tab) 400 mg BID PO 04/26/17 09:00 05/26/17 08:59 05/24/17 21:05 400 MG Pantoprazole Sodium (Protonix Tab) 40 mg QAM PO 05/11/17 09:00 06/10/17 08:59 05/24/17 08:37 40 MG Docusate Sodium (coLACE CAP) 100 mg BID PO 05/10/17 21:00 06/09/17 20:59 05/24/17 21:03 100 MG Calcitriol (Rocaltrol Cap) 10 mcg QAM PO 05/10/17 09:00 06/09/17 08:59 05/24/17 08:38 10 MCG Acetaminophen (Tylenol Tab) 650 mg Q6H PRN PO 05/14/17 00:00 06/13/17 00:00 05/14/17 07:49 650 MG Neomycin/ Polymyxin/ Bacitracin (Neosporin Oint) 1 appln Q8 EXT 05/14/17 14:00 06/13/17 13:59 05/24/17 21:06 1 APPLN Heparin Sodium (Porcine) (Heparin 10 Unit/ ml 5 ml Flush) 1 ml PRN PRN FLUSH 05/16/17 13:30 06/15/17 13:29 05/25/17 07:43 5 ML Nystatin (Mycostatin Oint) 1 appln PRN PRN EXT 05/17/17 10:45 06/16/17 10:44 Calcium Carbonate (Tums Chew Tab) 2,000 mg 5XDQ4H PO 05/18/17 11:00 06/17/17 10:59 05/25/17 06:35 2,000 MG Calcium Carbonate (oS-Randy 500 TAB) 3,750 mg QID PO 05/18/17 13:00 06/09/17 12:59 05/24/17 21:02 3,750 MG Mirtazapine (Remeron Tab) 15 mg HS PO 05/18/17 21:00 06/17/17 20:59 05/24/17 21:04 15 MG Miscellaneous Information (Pending Order) 1 ea PRN PRN N/A 05/24/17 16:30 06/23/17 16:29 Ondansetron HCl (Zofran Inj) 4 mg Q6H PRN IV 05/25/17 07:15 06/24/17 07:14 05/25/17 07:43 4 MG Sodium Chloride 1,000 ml @ 75 mls/hr [id number] IV 05/25/17 08:45 06/24/17 08:44 Impression (1) Hypocalcemia (2) Prostate cancer (3) Hypertension Mr. 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 He developed severe hypocalcemia following Denosumab infusion. Renal function is normal. Calcitriol is being provided. The patient is taking PO calcium in the form of TUMs and Oscal. Aggressive replacement with PO and IV calcium continues. The patient has had associated hypomagnesemia. He is tolerating oral magnesium replacement. He also remains on a phosphorus supplement. Recommendations -- Serum calcium is 9.4 this am following 3 g infusion -- Will obtain serum calcium at 3 pm today and resume nighttime infusion for calcium < 8.5 -- Spoke w/ Pharm-D 05/22: 5 half lives needed for any drug to be completely eliminated -- Blood pressure is acceptable. Continue low dose HCTZ to help retain urinary calcium -- Continue Mg Oxide 400 mg BID and Neutraphos daily. Will recheck serum Mg and PO4 in am -- Continue Calcitriol 10 mcg daily, OsCal 2500 QID, TUMS 2 grams TID -- Serum creatinine has risen to 1.5 (baseline 1.0). Gentle hydration w/ 0.9NS is now being provided
[2017-05-25] MEDS: MAGNESIUM OXIDE 400 MG TAB PO SCH ×2 (10:23→21:20)
[2017-05-25] MEDS: PANTOprazole SOD 40 MG TAB PO SCH (10:23)
[2017-05-25] MEDS: CALCIUM CARBONATE 1250MG TAB PO SCH ×4 (10:23→21:20)
[2017-05-25] MEDS: POT PHOSPHATE MONOBASIC W/ SOD TAB PO SCH ×4 (10:23→21:20)
[2017-05-25] MEDS: CALCITRIOL 0.5 MCG CAP PO SCH (10:24)
[2017-05-25 11:44] VITALS: BP 93/49; PULSE 86; TEMP 37.6; O2SAT 95
[2017-05-25 12:56] LABS: CALCIUM 8.2 mg/dl (8.5-10.1); CREATININE 1.41 mg/dl (0.60-1.40); POTASSIUM 4.2 mmol/L (3.5-5.1)
[2017-05-25 16:06] VITALS: BP 90/41; PULSE 86; TEMP 37.2; O2SAT 93
[2017-05-25] MEDS ORDERED: CALCIUM GLUCONATE 10% 2,000 MG in SODIUM CHLORIDE 0.9% 50ML 50 ML IV STA (16:15)
--- NOTE | 2017-05-25 16:26 | Progress Note ---
Subjective Date of Service: May 25, 2017. Subjective Pt evaluation today including: conversation w/ patient, conversation w/ family , physical exam, chart review, lab review, review of inpatient medication list Pain: controlled PO Intake: adequate Voiding: no voiding problems, no incontinence last night he had a code purple. he was using the bathroom when he became unresponsive. he had incontinence to urine and stool as per nursing staff he was extremely pale. no vitals results found at that time currently vitals are normal he has no complaint Problem List Medical Problems: (1) Dehydration Status: Acute (2) Failure to thrive Status: Acute (3) Hypomagnesemia Status: Acute (4) UTI (urinary tract infection) Status: Acute (5) Vomiting Status: Acute Review of Systems Review of system Constitutional: No fever / no chills / no sweats / no weakness / no fatigue Eyes: no blurring of vision / no eye pain / no discharge / no redness ENT: no hearing loss / no epistaxis /no swallowing problems Respiratory: no cough / no wheezing / no SOB / no hemoptysis Cardiovascular: no Chest pain / no lower extremity edema / no palpitation Abdomen: no pain / no nausea / no vomiting / no constipation Musculoskeletal: no joint pain / no muscle pain / no joint swelling Genitourinary: no dysuria / no incontinence / no urinary retention Neurologic: no focal weakness / no numbness/tingling / no ataxia Psychiatric: no depression symptoms / no anxiety / no insomnia Endocrine: no excessive thirst / no excessive urination Hematologic: no abnormal bleeding / no bruising / no LN swelling Skin: No rash / no pallor Objective Vital Signs Date Time Temp Pulse Resp B/P (MAP) Pulse Ox O2 Delivery O2 Flow Rate FiO2 05/25/17 16:06 37.2 86 18 90/41 (57) 93 Room Air 05/25/17 12:00 Room Air 05/25/17 11:44 37.6 86 16 93/49 (64) 95 Room Air 05/25/17 08:00 Room Air 05/25/17 07:19 37.3 106 18 110/65 (80) 93 Room Air 05/25/17 04:00 Room Air 05/25/17 00:00 Room Air 05/24/17 23:20 36.7 91 19 100/45 (63) 95 Room Air 05/24/17 20:00 Room Air Physical Exam Comments: Physical examination General patient appears to be comfortable, not in acute distress HEENT: Atraumatic , normocephalic /no jaundice /no pallor /anicteric /no dry mucous membrane /normal external ear inspection Neck: Supple /no swelling /central trach Heart: S1/S2 normal/regular rate and rhythm/no gallop /no rub /no murmur Lungs: Clear to auscultation bilaterally/normal chest with expansion/no rhonchi/ no rales/no wheezing/no use of accessory muscles of respiration Abdomen: Soft/nontender/no guarding/no rebound/no organomegaly/no pulsatile mass Musculoskeletal: No swelling/no edema/no tenderness/normal range of motion Neuro exam: Awake alert oriented 3/cranial nerves II through XII appear to be intact/sensation intact/moves all extremities/no abnormal movements Psychiatric evaluation: No depressed mood/normal affect Skin: No rash on exposed skin area/no erythema Extremity: Normal pulse/no pitting edema/no clubbing or cyanosis Endocrine/lymphatic: No obvious lymphadenopathy /no lymphedema Laboratory Results Last 24 Hours Test 05/24/17 17:57 05/25/17 01:53 05/25/17 03:06 05/25/17 07:21 Calcium Level 9.5 mg/dl 8.8 mg/dl 9.4 mg/dl White Blood Count 6.68 K/uL 7.04 K/uL Red Blood Count 3.69 M/uL 3.98 M/uL Hemoglobin 11.3 g/dL 11.9 g/dL Hematocrit 32.7 % 35.0 % Mean Corpuscular Volume 88.6 fL 87.9 fL Mean Corpuscular Hemoglobin 30.6 pg 29.9 pg Mean Corpuscular Hemoglobin Concent 34.6 g/dl 34.0 g/dl Platelet Count 202 K/uL 176 K/uL Mean Platelet Volume 8.3 fL 7.9 fL Neutrophils (%) (Auto) 66.4 % 81.8 % Lymphocytes (%) (Auto) 19.6 % 7.4 % Monocytes (%) (Auto) 8.8 % 6.7 % Eosinophils (%) (Auto) 4.5 % 3.7 % Basophils (%) (Auto) 0.3 % 0.1 % Neutrophils # (Auto) 4.43 K/uL 5.76 K/uL Lymphocytes # (Auto) 1.31 K/uL 0.52 K/uL Monocytes # (Auto) 0.59 K/uL 0.47 K/uL Eosinophils # (Auto) 0.30 K/uL 0.26 K/uL Basophils # (Auto) 0.02 K/uL 0.01 K/uL RDW Standard Deviation 46.3 fL 45.9 fL RDW Coefficient of Variation 14.2 % 14.3 % Immature Granulocyte % (Auto) 0.4 % 0.3 % Immature Granulocyte # (Auto) 0.03 K/uL 0.02 K/uL Sodium Level 137 mmol/L 138 mmol/L Potassium Level 4.2 mmol/L 4.3 mmol/L Chloride Level 103 mmol/L 105 mmol/L Carbon Dioxide Level 30 mmol/L 27 mmol/L Anion Gap 4.0 mmol/L 6.0 mmol/L Blood Urea Nitrogen 32 mg/dl 35 mg/dl Creatinine 1.48 mg/dl 1.53 mg/dl Est Creatinine Clear Calc Drug Dose 32.9 ml/min 31.6 ml/min Estimated GFR () 50.0 48.0 Estimated GFR (Non- 43.1 41.4 BUN/Creatinine Ratio 21.8 22.9 Random Glucose 109 mg/dl 125 mg/dl Phosphorus Level 3.9 mg/dl Magnesium Level 1.7 mg/dl Total Bilirubin 0.3 mg/dl Aspartate Amino Transf (AST/SGOT) 20 U/L Alanine Aminotransferase (ALT/SGPT) 19 U/L Alkaline Phosphatase 379 U/L Total Protein 6.7 gm/dl Albumin 3.2 gm/dl Globulin 3.5 gm/dl Albumin/Globulin Ratio 0.9 Bedside Glucose 141 mg/dl Test 05/25/17 12:31 05/25/17 15:11 Sodium Level 139 mmol/L Potassium Level 4.2 mmol/L Chloride Level 106 mmol/L Carbon Dioxide Level 26 mmol/L Anion Gap 7.0 mmol/L Blood Urea Nitrogen 35 mg/dl Creatinine 1.41 mg/dl Est Creatinine Clear Calc Drug Dose 34.3 ml/min Estimated GFR () 53.0 Estimated GFR (Non- 45.7 BUN/Creatinine Ratio 24.5 Random Glucose 97 mg/dl Calcium Level 8.2 mg/dl 7.8 mg/dl Assessment and Plan 81-year-old man with metastasized prostate cancer, with osteoblastic bone metastases who presented with fatigue due to severe hypocalcemia. Assessment Severe hypocalcemia believed to be attributed to Denosumab /bone metastasis had a vasovagal on 05/25 Hypomagnesemia and hypophosphatemia Metastasized prostate cancer, with osteoblastic bone metastases Complicated due to i.e. with stenotrophomonas present on admission Urinary retention with urine outflow obstruction, status post indwelling Bey Right arm superficial thrombophlebitis Seborrheic dermatitis Chronic kidney disease stage III Intertrigo/oral thrush Plan Continue telemetry calcium level today is <8 , restart calcium infusion 10 grams daily continue to check calcium level every 12 hours follow the below mentioned sliding scale plus the infusion mentioned above if below 8 , give 4 grams of calcium gluconate IV and call MD if 8-8.5 give 4 grams of calcium IV if 8.6-9 give 2 grams of calcium gluconate IV if 9.1-9.5 give 1 gram of calcium gluconate IV if > 9.6 do not give any calcium Dr. Cifuentes is following up the patient cancel transferring him to AC in the sitting of his episode of syncope Continue magnesium replacement 400 mg p.o. twice daily Continue Flomax Continue ranitidine for GI prophylaxis Heparin for DVT prophylaxis Instructed to see a comprehensive advisor for his scalp lesion Discussed case with patient will order labs in am UTI was treated urologist recommended keeping the bey until he see him as an out patient Continued [facility] stay due to: multiple IV medications needed Discharge planning: uncertain
[2017-05-25 16:30] VITALS: BP 107/66
[2017-05-25] MEDS: CALCIUM GLUCONATE IV SCH (17:17)
[2017-05-25] MEDS: SODIUM CHLORIDE 0.9% IV SCH (17:17)
[2017-05-25 19:32] VITALS: BP 117/62; PULSE 88; TEMP 36.8; O2SAT 93
[2017-05-25] MEDS: TAMSULOSIN HCL 0.4 MG CAP PO SCH (21:19)
[2017-05-25] MEDS: MIRTAZAPINE TAB 15 MG TAB PO SCH (21:20)
[2017-05-25] MEDS: RANITIDINE HCL 150 MG TAB PO SCH (21:21)
[2017-05-25 23:00] VITALS: BP 108/67; PULSE 86; TEMP 36.6; O2SAT 94
[2017-05-26 00:42] LABS: CALCIUM 8.2 mg/dl (8.5-10.1); CREATININE 1.38 mg/dl (0.60-1.40); POTASSIUM 3.8 mmol/L (3.5-5.1)
[2017-05-26 05:05] VITALS: BP 94/40; PULSE 81; TEMP 37; O2SAT 91
[2017-05-26 05:25] LABS: BASO % 0.2 %; BASO ABS # 0.01 K/uL (0-0.2); EOS % 6.3 %; EOS ABS # 0.28 K/uL (0-0.5); HEMATOCRIT 29.2 % (42-52); HEMOGLOBIN 9.7 g/dL (14.0-18.0); IG# 0.01 K/uL (0.00-0.02); LYMPH % 32.4 %; LYMPH ABS # 1.44 K/uL (1.2-3.4); MEAN CELL VOLUME 89.3 fL (80-100); MEAN CORPUSCULAR HEMOGLOBIN 29.7 pg (25-34); MEAN CORPUSCULAR HGB CONC 33.2 g/dl (32-36); MEAN PLATELET VOLUME 7.6 fL (7.4-10.4); MONO % 10.3 %; MONO ABS # 0.46 K/uL (0.11-0.59); NEUT % 50.6 %; NEUT ABS # 2.25 K/uL (1.4-6.5); PLATELET COUNT 128 K/uL (130-400); RED CELL DISTRIBUTION WIDTH CV 14.6 % (11.5-14.5); RED CELL DISTRIBUTION WIDTH SD 48.1 fL (36.4-46.3); WHITE BLOOD COUNT 4.45 K/uL (4.8-10.8)
[2017-05-26] MEDS: NEOMYCIN/POLYMYX/BACITR OINT 15 GM TUBE EXT SCH ×3 (05:33→20:59)
[2017-05-26 05:51] LABS: ALBUMIN 2.6 gm/dl (3.4-5.0); CALCIUM 8.3 mg/dl (8.5-10.1); CREATININE 1.33 mg/dl (0.60-1.40)
[2017-05-26 05:54] LABS: TOTAL PROTEIN 5.8 gm/dl (6.4-8.2)
[2017-05-26] MEDS: CALCIUM CARBONATE 500 MG CHEWABLE PO SCH ×5 (06:17→22:31)
[2017-05-26 07:36] VITALS: BP 102/56; PULSE 85; TEMP 36.7; O2SAT 95
[2017-05-26] MEDS: DOCUSATE SODIUM 100 MG CAP PO SCH ×2 (08:38→20:56)
[2017-05-26] MEDS: CALCIUM CARBONATE 1250MG TAB PO SCH ×4 (08:39→20:54)
[2017-05-26] MEDS: PANTOprazole SOD 40 MG TAB PO SCH (08:39)
[2017-05-26] MEDS: POT PHOSPHATE MONOBASIC W/ SOD TAB PO SCH ×4 (08:39→20:54)
[2017-05-26] MEDS: CALCITRIOL 0.5 MCG CAP PO SCH (08:40)
[2017-05-26] MEDS: CALCIUM GLUCONATE IV SCH (09:16)
[2017-05-26] MEDS: SODIUM CHLORIDE 0.9% IV SCH (09:16)
--- NOTE | 2017-05-26 10:17 | Nephrology Progress Note ---
Nephrology Progress Note Date of Service May 26, 2017. Chief Complaint Follow-up for hypocalcemia Subjective David was seen and examined in his room this morning. Overall feeling well. no further episode of syncope, hypotension. Blood pressure stable. Calcium improved but still requiring IV Ca Review of Systems A complete review of systems was performed. Pertinent positives are noted above. All other systems are negative. Vital Signs Last 8 Hrs Date Time Temp Pulse Resp B/P (MAP) Pulse Ox O2 Delivery O2 Flow Rate FiO2 05/26/17 08:00 Room Air 05/26/17 07:36 36.7 85 16 102/56 (71) 95 Room Air 05/26/17 05:05 37.0 81 18 94/40 (58) 91 Room Air 05/26/17 04:00 Room Air Last Recorded Weight Weight (Kilograms): 64.000 Physical Exam GENERAL: Elderly male , AAA x 3, pleasant, healthy-appearing, not in any distress. NECK: Supple, no JVD. RESPIRATORY: Normal breathing efforts, no accessory muscle use, clear to auscultation bilaterally, no wheezes or rales. CARDIOVASCULAR: S1, S2 normal, rate rhythm regular. EXTREMITY: No lower extremity edema NEURO: speech fluent. 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 05/26/17 05:17 Red Blood Count 3.27, Mean Corpuscular Volume 89.3, Mean Corpuscular Hemoglobin 29.7, Mean Corpuscular Hemoglobin Concent 33.2, Mean Platelet Volume 7.6, Neutrophils (%) (Auto) 50.6, Lymphocytes (%) (Auto) 32.4, Monocytes (%) (Auto) 10.3, Eosinophils (%) (Auto) 6.3, Basophils (%) (Auto) 0.2, Neutrophils # (Auto ) 2.25, Lymphocytes # (Auto) 1.44, Monocytes # (Auto) 0.46, Eosinophils # (Auto ) 0.28, Basophils # (Auto) 0.01 05/25/17 12:31 05/26/17 00:11 05/26/17 05:17 Test 05/25/17 12:31 05/25/17 15:11 05/26/17 00:11 05/26/17 05:17 Anion Gap 7.0 mmol/L (3-11) 2.0 mmol/L (3-11) 1.0 mmol/L (3-11) Est Creatinine Clear Calc Drug Dose 34.3 ml/min 35.1 ml/min 36.4 ml/min Estimated GFR () 53.0 54.4 56.9 Estimated GFR (Non- 45.7 46.9 49.1 BUN/Creatinine Ratio 24.5 (10-20) 25.7 (10-20) 25.0 (10-20) Calcium Level 8.2 mg/dl (8.5-10.1) 7.8 mg/dl (8.5-10.1) 8.2 mg/dl (8.5-10.1) 8.3 mg/dl (8.5-10.1) White Blood Count 4.45 K/uL (4.8-10.8) Red Blood Count 3.27 M/uL (4.7-6.1) Hemoglobin 9.7 g/dL (14.0-18.0) Hematocrit 29.2 % (42-52) Mean Corpuscular Volume 89.3 fL (80-100) Mean Corpuscular Hemoglobin 29.7 pg (25-34) Mean Corpuscular Hemoglobin Concent 33.2 g/dl (32-36) Platelet Count 128 K/uL (130-400) Mean Platelet Volume 7.6 fL (7.4-10.4) Neutrophils (%) (Auto) 50.6 % Lymphocytes (%) (Auto) 32.4 % Monocytes (%) (Auto) 10.3 % Eosinophils (%) (Auto) 6.3 % Basophils (%) (Auto) 0.2 % Neutrophils # (Auto) 2.25 K/uL (1.4-6.5) Lymphocytes # (Auto) 1.44 K/uL (1.2-3.4) Monocytes # (Auto) 0.46 K/uL (0.11-0.59) Eosinophils # (Auto) 0.28 K/uL (0-0.5) Basophils # (Auto) 0.01 K/uL (0-0.2) RDW Standard Deviation 48.1 fL (36.4-46.3) RDW Coefficient of Variation 14.6 % (11.5-14.5) Immature Granulocyte % (Auto) 0.2 % Immature Granulocyte # (Auto) 0.01 K/uL (0.00-0.02) Magnesium Level 1.7 mg/dl (1.8-2.4) Total Bilirubin 0.4 mg/dl (0.2-1) Aspartate Amino Transf (AST/SGOT) 18 U/L (15-37) Alanine Aminotransferase (ALT/SGPT) 15 U/L (12-78) Alkaline Phosphatase 288 U/L (45-117) Total Protein 5.8 gm/dl (6.4-8.2) Albumin 2.6 gm/dl (3.4-5.0) Globulin 3.2 gm/dl (2.5-4.0) Albumin/Globulin Ratio 0.8 (0.9-2) Allergies Coded Allergies: No Known Allergies (Unverified , 03/15/17) Medications Current Inpatient Medications Medications (Trade) Dose Ordered Sig/Jonathan Route Start Time Stop Time Status Last Admin Dose Admin Tamsulosin HCl (Flomax Cap) 0.8 mg HS PO 03/15/17 21:00 06/09/17 20:59 05/25/17 21:19 0.8 MG Ranitidine HCl (zANTac TAB) 300 mg HS PO 03/15/17 21:00 06/09/17 20:59 05/25/17 21:21 300 MG Potassium/ Phosphorus/Sodium (Phospha 250 Neutral 155-852-130 Mg) 2 tab QID PO 04/10/17 17:00 06/09/17 16:59 05/26/17 08:39 2 TAB Pantoprazole Sodium (Protonix Tab) 40 mg QAM PO 05/11/17 09:00 06/10/17 08:59 05/26/17 08:39 40 MG Docusate Sodium (coLACE CAP) 100 mg BID PO 05/10/17 21:00 06/09/17 20:59 05/26/17 08:38 100 MG Calcitriol (Rocaltrol Cap) 10 mcg QAM PO 05/10/17 09:00 06/09/17 08:59 05/26/17 08:40 10 MCG Acetaminophen (Tylenol Tab) 650 mg Q6H PRN PO 05/14/17 00:00 06/13/17 00:00 05/14/17 07:49 650 MG Neomycin/ Polymyxin/ Bacitracin (Neosporin Oint) 1 appln Q8 EXT 05/14/17 14:00 06/13/17 13:59 05/26/17 05:33 1 APPLN Heparin Sodium (Porcine) (Heparin 10 Unit/ ml 5 ml Flush) 1 ml PRN PRN FLUSH 05/16/17 13:30 06/15/17 13:29 05/25/17 07:43 5 ML Nystatin (Mycostatin Oint) 1 appln PRN PRN EXT 05/17/17 10:45 06/16/17 10:44 Calcium Carbonate (Tums Chew Tab) 2,000 mg [id number] PO 05/18/17 11:00 06/17/17 10:59 05/26/17 08:40 2,000 MG Calcium Carbonate (oS-Randy 500 TAB) 3,750 mg QID PO 05/18/17 13:00 06/09/17 12:59 05/26/17 08:39 3,750 MG Mirtazapine (Remeron Tab) 15 mg HS PO 05/18/17 21:00 06/17/17 20:59 05/25/17 21:20 15 MG Miscellaneous Information (Pending Order) 1 ea PRN PRN N/A 05/24/17 16:30 06/23/17 16:29 Ondansetron HCl (Zofran Inj) 4 mg Q6H PRN IV 05/25/17 07:15 06/24/17 07:14 05/25/17 07:43 4 MG Sodium Chloride 1,000 ml @ 75 mls/hr [id number] IV 05/25/17 08:45 06/24/17 08:44 05/25/17 22:43 75 MLS/HR Calcium Gluconate 53101 mg/Sodium Chloride 1,100 ml @ 91.667 mls/ hr DAILY IV 05/25/17 16:45 06/24/17 16:44 05/26/17 09:16 91.667 MLS/HR Impression (1) Hypocalcemia (2) Prostate cancer (3) Hypertension Mr. 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 He developed severe hypocalcemia following Denosumab infusion. Renal function is normal. Calcitriol is being provided. The patient is taking PO calcium in the form of TUMs and Oscal. Aggressive replacement with PO and IV calcium continues. The patient has had associated hypomagnesemia. He is tolerating oral magnesium replacement. He also remains on a phosphorus supplement. Recommendations -- continue IV ca as current protocol -- Blood pressure is acceptable. Continue low dose HCTZ to help retain urinary calcium -- Continue Mg Oxide 400 mg BID and Neutraphos daily. Will recheck serum Mg and PO4 in am -- Continue Calcitriol 10 mcg daily, OsCal 2500 QID, TUMS 2 grams TID -- Serum creatinine has risen to 1.5 (baseline 1.0). Gentle hydration w/ 0.9NS is now being provided Will sign off, please contact if any further assistance needed.
[2017-05-26] MEDS: SODIUM CHLORIDE 0.9% 1000ML 1,000 ML IV SCH ×2 (11:54→23:57)
[2017-05-26 12:49] VITALS: BP 126/55; PULSE 80; TEMP 36.3; O2SAT 96
[2017-05-26 13:11] LABS: CALCIUM 8.7 mg/dl (8.5-10.1); CREATININE 1.31 mg/dl (0.60-1.40); POTASSIUM 3.9 mmol/L (3.5-5.1)
[2017-05-26 16:18] VITALS: BP 109/56; PULSE 70; TEMP 36.9; O2SAT 94
[2017-05-26] MEDS: MIRTAZAPINE TAB 15 MG TAB PO SCH (20:55)
[2017-05-26] MEDS: RANITIDINE HCL 150 MG TAB PO SCH (20:56)
[2017-05-26] MEDS: TAMSULOSIN HCL 0.4 MG CAP PO SCH (20:56)
[2017-05-26 21:03] VITALS: BP 118/66; PULSE 86; TEMP 37.2; O2SAT 94
--- NOTE | 2017-05-26 22:52 | Progress Note ---
Subjective Date of Service: May 26, 2017. Subjective Pt evaluation today including: conversation w/ patient, physical exam 81 yo male states he feels well. He does not have any complaints today. He states that he does not want o leave hospital as he has friends here. Problem List Medical Problems: (1) Dehydration Status: Acute (2) Failure to thrive Status: Acute (3) Hypomagnesemia Status: Acute (4) UTI (urinary tract infection) Status: Acute (5) Vomiting Status: Acute Review of Systems Constitutional: No fever, No chills Eyes: No worsening of vision ENT: No hearing loss Respiratory: No cough Cardiac: No chest pain Neurologic: No memory loss Psychiatric: No depression symptoms Heme: No abnormal bleeding/bruising Endo: No fatigue Skin: No rash All Other Systems: Reviewed and Negative Objective Vital Signs Date Time Temp Pulse Resp B/P (MAP) Pulse Ox O2 Delivery O2 Flow Rate FiO2 05/26/17 21:03 37.2 86 18 118/66 (83) 94 Room Air 05/26/17 20:00 Room Air 05/26/17 16:18 36.9 70 18 109/56 (73) 94 05/26/17 16:00 Room Air 05/26/17 12:49 36.3 80 18 126/55 (78) 96 Room Air 05/26/17 12:00 Room Air 05/26/17 08:00 Room Air 05/26/17 07:36 36.7 85 16 102/56 (71) 95 Room Air 05/26/17 05:05 37.0 81 18 94/40 (58) 91 Room Air 05/26/17 04:00 Room Air 05/26/17 00:00 Room Air 05/25/17 23:00 36.6 86 18 108/67 (81) 94 Room Air Physical Exam Comments: General patient appears to be comfortable, not in acute distress HEENT: Atraumatic , normocephalic /no jaundice /no pallor /anicteric /no dry mucous membrane /normal external ear inspection Neck: Supple /no swelling /central trach Heart: S1/S2 normal/regular rate and rhythm/no gallop /no rub /no murmur Lungs: Clear to auscultation bilaterally/normal chest with expansion/no rhonchi/ no rales/no wheezing/no use of accessory muscles of respiration Abdomen: Soft/nontender/no guarding/no rebound/no organomegaly/no pulsatile mass Musculoskeletal: No swelling/no edema/no tenderness/normal range of motion Neuro exam: Awake alert oriented 3/cranial nerves II through XII appear to be intact/sensation intact/moves all extremities/no abnormal movements Psychiatric evaluation: No depressed mood/normal affect Skin: No rash on exposed skin area/no erythema Extremity: Normal pulse/no pitting edema/no clubbing or cyanosis Endocrine/lymphatic: No obvious lymphadenopathy /no lymphedema Laboratory Results Last 24 Hours Test 05/26/17 00:11 05/26/17 05:17 05/26/17 12:26 Sodium Level 139 mmol/L 140 mmol/L 141 mmol/L Potassium Level 3.8 mmol/L 4.0 mmol/L 3.9 mmol/L Chloride Level 109 mmol/L 111 mmol/L 111 mmol/L Carbon Dioxide Level 28 mmol/L 28 mmol/L 27 mmol/L Anion Gap 2.0 mmol/L 1.0 mmol/L 3.0 mmol/L Blood Urea Nitrogen 35 mg/dl 33 mg/dl 29 mg/dl Creatinine 1.38 mg/dl 1.33 mg/dl 1.31 mg/dl Est Creatinine Clear Calc Drug Dose 35.1 ml/min 36.4 ml/min 37.2 ml/min Estimated GFR () 54.4 56.9 57.9 Estimated GFR (Non- 46.9 49.1 50.0 BUN/Creatinine Ratio 25.7 25.0 22.5 Random Glucose 85 mg/dl 85 mg/dl 90 mg/dl Calcium Level 8.2 mg/dl 8.3 mg/dl 8.7 mg/dl White Blood Count 4.45 K/uL Red Blood Count 3.27 M/uL Hemoglobin 9.7 g/dL Hematocrit 29.2 % Mean Corpuscular Volume 89.3 fL Mean Corpuscular Hemoglobin 29.7 pg Mean Corpuscular Hemoglobin Concent 33.2 g/dl Platelet Count 128 K/uL Mean Platelet Volume 7.6 fL Neutrophils (%) (Auto) 50.6 % Lymphocytes (%) (Auto) 32.4 % Monocytes (%) (Auto) 10.3 % Eosinophils (%) (Auto) 6.3 % Basophils (%) (Auto) 0.2 % Neutrophils # (Auto) 2.25 K/uL Lymphocytes # (Auto) 1.44 K/uL Monocytes # (Auto) 0.46 K/uL Eosinophils # (Auto) 0.28 K/uL Basophils # (Auto) 0.01 K/uL RDW Standard Deviation 48.1 fL RDW Coefficient of Variation 14.6 % Immature Granulocyte % (Auto) 0.2 % Immature Granulocyte # (Auto) 0.01 K/uL Magnesium Level 1.7 mg/dl Total Bilirubin 0.4 mg/dl Aspartate Amino Transf (AST/SGOT) 18 U/L Alanine Aminotransferase (ALT/SGPT) 15 U/L Alkaline Phosphatase 288 U/L Total Protein 5.8 gm/dl Albumin 2.6 gm/dl Globulin 3.2 gm/dl Albumin/Globulin Ratio 0.8 Assessment and Plan Severe hypocalcemia believed to be attributed to Denosumab /bone metastasis had a vasovagal on 05/25 Hypomagnesemia and hypophosphatemia Metastasized prostate cancer, with osteoblastic bone metastases Complicated due to i.e. with stenotrophomonas present on admission Urinary retention with urine outflow obstruction, status post indwelling Bey Right arm superficial thrombophlebitis Seborrheic dermatitis Chronic kidney disease stage III Intertrigo/oral thrush Plan Continue telemetry calcium level today is <8 , restart calcium infusion 10 grams daily continue to check calcium level every 12 hours follow the below mentioned sliding scale plus the infusion mentioned above if below 8 , give 4 grams of calcium gluconate IV and call MD if 8-8.5 give 4 grams of calcium IV if 8.6-9 give 2 grams of calcium gluconate IV if 9.1-9.5 give 1 gram of calcium gluconate IV if > 9.6 do not give any calcium Nephro has signed off case, please call if any questions. canceled transferring him to [facility] in the sitting of his episode of syncope on Sunday. Code Purpe occured sunday AM when patient was found with LOC at toilet. He had regaind consciousness when Dr. Bishop went to see him. Discussed case with cardio as curbside consult. EKG and echo do not appear abnormal.Tele monitor did not have any events when the event occured. Therefore likely vasovagal. Will need to reassess if LT[facility] can handle calcium levels being low again early next week. Continue magnesium replacement 400 mg p.o. twice daily Continue Flomax Continue ranitidine for GI prophylaxis Heparin for DVT prophylaxis Instructed to see a bead maker for his scalp lesion Discussed case with patient will order labs in am UTI was treated urologist recommended keeping the bey until he see him as an out patient Continued [facility] stay due to: multiple IV medications needed Discharge planning: uncertain
[2017-05-27] VITALS (7 sets, daily range): BP systolic 100–146; BP diastolic 49–74; PULSE 71–90; TEMP 36.6–36.9; O2SAT 94–97
[2017-05-27] MEDS: NEOMYCIN/POLYMYX/BACITR OINT 15 GM TUBE EXT SCH ×3 (06:00→20:57)
[2017-05-27] MEDS: CALCIUM CARBONATE 500 MG CHEWABLE PO SCH ×5 (07:55→23:28)
[2017-05-27] MEDS: PANTOprazole SOD 40 MG TAB PO SCH (07:56)
[2017-05-27] MEDS: CALCIUM CARBONATE 1250MG TAB PO SCH ×4 (07:56→20:55)
[2017-05-27] MEDS: DOCUSATE SODIUM 100 MG CAP PO SCH ×2 (07:56→20:54)
[2017-05-27] MEDS: POT PHOSPHATE MONOBASIC W/ SOD TAB PO SCH ×4 (07:56→20:56)
[2017-05-27] MEDS: CALCITRIOL 0.5 MCG CAP PO SCH (07:57)
[2017-05-27] MEDS: SODIUM CHLORIDE 0.9% IV SCH (09:33)
[2017-05-27] MEDS: CALCIUM GLUCONATE IV SCH (09:33)
[2017-05-27 09:39] LABS: HEMATOCRIT 30.4 % (42-52); HEMOGLOBIN 10.3 g/dL (14.0-18.0); MEAN CELL VOLUME 88.1 fL (80-100); MEAN CORPUSCULAR HEMOGLOBIN 29.9 pg (25-34); MEAN CORPUSCULAR HGB CONC 33.9 g/dl (32-36); MEAN PLATELET VOLUME 7.8 fL (7.4-10.4); PLATELET COUNT 149 K/uL (130-400); RED CELL DISTRIBUTION WIDTH CV 14.4 % (11.5-14.5); RED CELL DISTRIBUTION WIDTH SD 46.9 fL (36.4-46.3); WHITE BLOOD COUNT 4.24 K/uL (4.8-10.8)
[2017-05-27 09:58] LABS: CALCIUM 7.8 mg/dl (8.5-10.1); CREATININE 1.33 mg/dl (0.60-1.40); POTASSIUM 3.8 mmol/L (3.5-5.1)
[2017-05-27] MEDS: SODIUM CHLORIDE 0.9% 1000ML 1,000 ML IV SCH (13:52)
[2017-05-27] MEDS: TAMSULOSIN HCL 0.4 MG CAP PO SCH (20:55)
[2017-05-27] MEDS: MIRTAZAPINE TAB 15 MG TAB PO SCH (20:56)
[2017-05-27] MEDS: RANITIDINE HCL 150 MG TAB PO SCH (20:56)
--- NOTE | 2017-05-27 22:21 | Progress Note ---
Subjective Date of Service: May 27, 2017. Subjective Patient has no complaints today. Patient reports he again does not want to be discharged as he has friends in the hospital. Patient reports he continues to ambulate the halls with no problems. Tele monitor was ok. Problem List Medical Problems: (1) Dehydration Status: Acute (2) Failure to thrive Status: Acute (3) Hypomagnesemia Status: Acute (4) UTI (urinary tract infection) Status: Acute (5) Vomiting Status: Acute Review of Systems Constitutional: No fever Eyes: No worsening of vision ENT: No hearing loss Respiratory: No cough Cardiac: No chest pain Musculoskeletal: No joint pain Male : No dysuria Neurologic: No paralysis Psychiatric: No depression symptoms Heme: No abnormal bleeding/bruising Endo: No fatigue Skin: No rash All Other Systems: Reviewed and Negative Medications Current Inpatient Medications Medications (Trade) Dose Ordered Sig/Jonathan Route Start Time Stop Time Status Last Admin Dose Admin Tamsulosin HCl (Flomax Cap) 0.8 mg HS PO 03/15/17 21:00 06/09/17 20:59 05/27/17 20:55 0.8 MG Ranitidine HCl (zANTac TAB) 300 mg HS PO 03/15/17 21:00 06/09/17 20:59 05/27/17 20:56 300 MG Potassium/ Phosphorus/Sodium (Phospha 250 Neutral 155-852-130 Mg) 2 tab QID PO 04/10/17 17:00 06/09/17 16:59 05/27/17 20:56 2 TAB Pantoprazole Sodium (Protonix Tab) 40 mg QAM PO 05/11/17 09:00 06/10/17 08:59 05/27/17 07:56 40 MG Docusate Sodium (coLACE CAP) 100 mg BID PO 05/10/17 21:00 06/09/17 20:59 05/27/17 20:54 100 MG Calcitriol (Rocaltrol Cap) 10 mcg QAM PO 05/10/17 09:00 06/09/17 08:59 05/27/17 07:57 10 MCG Acetaminophen (Tylenol Tab) 650 mg Q6H PRN PO 05/14/17 00:00 06/13/17 00:00 05/14/17 07:49 650 MG Neomycin/ Polymyxin/ Bacitracin (Neosporin Oint) 1 appln Q8 EXT 05/14/17 14:00 06/13/17 13:59 05/27/17 13:52 1 APPLN Heparin Sodium (Porcine) (Heparin 10 Unit/ ml 5 ml Flush) 1 ml PRN PRN FLUSH 05/16/17 13:30 06/15/17 13:29 05/25/17 07:43 5 ML Nystatin (Mycostatin Oint) 1 appln PRN PRN EXT 05/17/17 10:45 06/16/17 10:44 Calcium Carbonate (Tums Chew Tab) 2,000 mg 5XDQ4H PO 05/18/17 11:00 06/17/17 10:59 05/27/17 23:28 2,000 MG Calcium Carbonate (oS-Randy 500 TAB) 3,750 mg QID PO 05/18/17 13:00 06/09/17 12:59 05/27/17 20:55 3,750 MG Mirtazapine (Remeron Tab) 15 mg HS PO 05/18/17 21:00 06/17/17 20:59 05/27/17 20:56 15 MG Miscellaneous Information (Pending Order) 1 ea PRN PRN N/A 05/24/17 16:30 06/23/17 16:29 Ondansetron HCl (Zofran Inj) 4 mg Q6H PRN IV 05/25/17 07:15 06/24/17 07:14 05/25/17 07:43 4 MG Sodium Chloride 1,000 ml @ 75 mls/hr [id number] IV 05/25/17 08:45 06/24/17 08:44 05/28/17 01:36 75 MLS/HR Calcium Gluconate 55154 mg/Sodium Chloride 1,100 ml @ 91.667 mls/ hr DAILY IV 05/25/17 16:45 06/24/17 16:44 05/27/17 09:33 91.667 MLS/HR Objective Vital Signs Date Time Temp Pulse Resp B/P (MAP) Pulse Ox O2 Delivery O2 Flow Rate FiO2 05/27/17 20:00 Room Air 05/27/17 19:37 36.7 72 18 146/70 (95) 96 Room Air 05/27/17 16:19 36.7 86 18 143/66 (91) 96 Room Air 05/27/17 16:00 Room Air 05/27/17 12:50 36.8 85 18 128/74 (92) 97 Room Air 05/27/17 12:00 Room Air 05/27/17 08:00 Room Air 05/27/17 07:20 36.9 90 16 130/49 (76) 96 Room Air 05/27/17 04:00 Room Air 05/27/17 04:00 36.9 71 18 100/50 (67) 95 Room Air 05/27/17 00:20 36.9 87 18 120/62 (81) 94 Room Air 05/26/17 23:59 Room Air Physical Exam General Appearance: WD/WN, no apparent distress Eyes: normal inspection ENT: normal ENT inspection Neck: supple, no adenopathy Respiratory/Chest: chest non-tender, lungs clear Cardiovascular: regular rate, rhythm, no edema Abdomen: normal bowel sounds, non tender, soft Extremities: normal range of motion Skin: normal color Lymphatic: no adenopathy Laboratory Results Last 24 Hours Test 05/27/17 09:19 White Blood Count 4.24 K/uL Red Blood Count 3.45 M/uL Hemoglobin 10.3 g/dL Hematocrit 30.4 % Mean Corpuscular Volume 88.1 fL Mean Corpuscular Hemoglobin 29.9 pg Mean Corpuscular Hemoglobin Concent 33.9 g/dl RDW Standard Deviation 46.9 fL RDW Coefficient of Variation 14.4 % Platelet Count 149 K/uL Mean Platelet Volume 7.8 fL Sodium Level 143 mmol/L Potassium Level 3.8 mmol/L Chloride Level 111 mmol/L Carbon Dioxide Level 25 mmol/L Anion Gap 7.0 mmol/L Blood Urea Nitrogen 18 mg/dl Creatinine 1.33 mg/dl Est Creatinine Clear Calc Drug Dose 36.6 ml/min Estimated GFR () 56.9 Estimated GFR (Non- 49.1 BUN/Creatinine Ratio 13.4 Random Glucose 101 mg/dl Calcium Level 7.8 mg/dl Assessment and Plan Severe hypocalcemia believed to be attributed to Denosumab /bone metastasis Code Purple called due to likely vasovagal syncope on 05/25 Hypomagnesemia and hypophosphatemia Metastasized prostate cancer, with osteoblastic bone metastases Complicated due to i.e. with stenotrophomonas present on admission Urinary retention with urine outflow obstruction, status post indwelling Bey Right arm superficial thrombophlebitis Seborrheic dermatitis Chronic kidney disease stage III Intertrigo/oral thrush Plan Continue telemetry calcium level today is <8 , restart calcium infusion 10 grams daily continue to check calcium level every 12 hours follow the below mentioned sliding scale plus the infusion mentioned above if below 8 , give 4 grams of calcium gluconate IV and call MD if 8-8.5 give 4 grams of calcium IV if 8.6-9 give 2 grams of calcium gluconate IV if 9.1-9.5 give 1 gram of calcium gluconate IV if > 9.6 do not give any calcium Nephro has signed off case, please call if any questions. Levels today were below 8. Will relace and recheck in AM canceled transferring him to LT[facility] in the sitting of his episode of syncope on Sunday. Code Purple occurred Sunday AM when patient was found with LOC at toilet. He had regained consciousness when Dr. Bishop went to see him. Discussed case with cardio as curbside consult. EKG and echo do not appear abnormal.Tele monitor did not have any events when the event occured. Therefore likely vasovagal. Will need to reassess if LTAC can handle calcium levels being low again early next week. Continue magnesium replacement 400 mg p.o. twice daily Continue Flomax Continue ranitidine for GI prophylaxis Heparin for DVT prophylaxis Instructed to see a rate supervisor for his scalp lesion Discussed case with patient will order labs in am UTI was treated urologist recommended keeping the bey until he see him as an out patient Continued [facility] stay due to: multiple IV medications needed Discharge planning: uncertain
[2017-05-28] VITALS (7 sets, daily range): BP systolic 111–130; BP diastolic 50–70; PULSE 71–88; TEMP 36.5–37; O2SAT 95–97
[2017-05-28] MEDS: SODIUM CHLORIDE 0.9% 1000ML 1,000 ML IV SCH ×2 (01:36→17:16)
[2017-05-28] MEDS: NEOMYCIN/POLYMYX/BACITR OINT 15 GM TUBE EXT SCH ×3 (06:00→20:45)
[2017-05-28] MEDS: DOCUSATE SODIUM 100 MG CAP PO SCH ×2 (08:05→20:42)
[2017-05-28] MEDS: POT PHOSPHATE MONOBASIC W/ SOD TAB PO SCH ×4 (08:05→20:44)
[2017-05-28] MEDS: CALCIUM CARBONATE 500 MG CHEWABLE PO SCH ×5 (08:05→20:41)
[2017-05-28] MEDS: CALCIUM CARBONATE 1250MG TAB PO SCH ×4 (08:05→20:44)
[2017-05-28] MEDS: CALCITRIOL 0.5 MCG CAP PO SCH (08:06)
[2017-05-28] MEDS: PANTOprazole SOD 40 MG TAB PO SCH (08:06)
[2017-05-28] MEDS: CALCIUM GLUCONATE IV SCH (09:34)
[2017-05-28] MEDS: SODIUM CHLORIDE 0.9% IV SCH (09:34)
[2017-05-28 10:17] LABS: CALCIUM 7.6 mg/dl (8.5-10.1); CREATININE 1.14 mg/dl (0.60-1.40); POTASSIUM 3.8 mmol/L (3.5-5.1)
--- NOTE | 2017-05-28 13:22 | Hospitalist Progress Note ---
Hospitalist Progress Note Date of Service May 28, 2017. Subjective Pt evaluation today including: conversation w/ patient, physical exam, lab review, review of inpatient medication list Voiding: bey catheter in place Patient feeling well. Eating and drinking OK. No more episodes of near-syncope, lightheadedness/dizziness. Upset about needing to transfer to different facility- patient states, "I love it here. Why do I have to leave?" Patient denies any fever, chills, sweats, lightheadedness, dizziness, vision changes, CP, palpitations, edema, SOB, wheezing, cough, abdominal pain, nausea, vomiting, diarrhea, urinary symptoms, melena, numbness/tingling, weakness, muscle/joint pain, anxiety/depression, active bleeding, or new skin discoloration/changes. Medications Current Inpatient Medications Medications (Trade) Dose Ordered Sig/Jonathan Route Start Time Stop Time Status Last Admin Dose Admin Tamsulosin HCl (Flomax Cap) 0.8 mg HS PO 03/15/17 21:00 06/09/17 20:59 05/27/17 20:55 0.8 MG Ranitidine HCl (zANTac TAB) 300 mg HS PO 03/15/17 21:00 06/09/17 20:59 05/27/17 20:56 300 MG Potassium/ Phosphorus/Sodium (Phospha 250 Neutral 155-852-130 Mg) 2 tab QID PO 04/10/17 17:00 06/09/17 16:59 05/28/17 12:17 2 TAB Pantoprazole Sodium (Protonix Tab) 40 mg QAM PO 05/11/17 09:00 06/10/17 08:59 05/28/17 08:06 40 MG Docusate Sodium (coLACE CAP) 100 mg BID PO 05/10/17 21:00 06/09/17 20:59 05/28/17 08:05 100 MG Calcitriol (Rocaltrol Cap) 10 mcg QAM PO 05/10/17 09:00 06/09/17 08:59 05/28/17 08:06 10 MCG Acetaminophen (Tylenol Tab) 650 mg Q6H PRN PO 05/14/17 00:00 06/13/17 00:00 05/14/17 07:49 650 MG Neomycin/ Polymyxin/ Bacitracin (Neosporin Oint) 1 appln Q8 EXT 05/14/17 14:00 06/13/17 13:59 05/27/17 13:52 1 APPLN Heparin Sodium (Porcine) (Heparin 10 Unit/ ml 5 ml Flush) 1 ml PRN PRN FLUSH 05/16/17 13:30 06/15/17 13:29 05/25/17 07:43 5 ML Nystatin (Mycostatin Oint) 1 appln PRN PRN EXT 05/17/17 10:45 06/16/17 10:44 Calcium Carbonate (Tums Chew Tab) 2,000 mg 5XDQ4H PO 05/18/17 11:00 06/17/17 10:59 05/28/17 10:55 2,000 MG Calcium Carbonate (oS-Randy 500 TAB) 3,750 mg QID PO 05/18/17 13:00 06/09/17 12:59 05/28/17 12:17 3,750 MG Mirtazapine (Remeron Tab) 15 mg HS PO 05/18/17 21:00 06/17/17 20:59 05/27/17 20:56 15 MG Miscellaneous Information (Pending Order) 1 ea PRN PRN N/A 05/24/17 16:30 06/23/17 16:29 Ondansetron HCl (Zofran Inj) 4 mg Q6H PRN IV 05/25/17 07:15 06/24/17 07:14 05/25/17 07:43 4 MG Sodium Chloride 1,000 ml @ 75 mls/hr [id number] IV 05/25/17 08:45 06/24/17 08:44 05/28/17 01:36 75 MLS/HR Calcium Gluconate 68413 mg/Sodium Chloride 1,100 ml @ 91.667 mls/ hr DAILY IV 05/25/17 16:45 06/24/17 16:44 05/28/17 09:34 91.667 MLS/HR Objective Vital Signs Date Time Temp Pulse Resp B/P (MAP) Pulse Ox O2 Delivery O2 Flow Rate FiO2 05/28/17 12:00 Room Air 05/28/17 11:54 36.5 73 18 117/50 (72) 96 05/28/17 08:33 37.0 71 18 121/64 (83) 97 05/28/17 07:45 Room Air 05/28/17 05:16 36.7 77 18 111/56 (74) 97 Room Air 05/28/17 04:00 Room Air 05/28/17 00:00 Room Air 05/27/17 23:26 36.6 74 20 121/61 (81) 94 Room Air 05/27/17 20:00 Room Air 05/27/17 19:37 36.7 72 18 146/70 (95) 96 Room Air 05/27/17 16:19 36.7 86 18 143/66 (91) 96 Room Air 05/27/17 16:00 Room Air Physical Exam General Appearance: no apparent distress Eyes: normal inspection, PERRL ENT: hearing grossly normal Neck: supple Respiratory/Chest: lungs clear, no respiratory distress, no accessory muscle use Cardiovascular: regular rate, rhythm Abdomen: normal bowel sounds, non tender, soft Extremities: no pedal edema, no calf tenderness Neurologic/Psychiatric: alert, normal mood/affect, oriented x 3 Skin: normal color, warm/dry, no rash Laboratory Results Last 24 Hours Test 05/28/17 09:36 Sodium Level 141 mmol/L Potassium Level 3.8 mmol/L Chloride Level 110 mmol/L Carbon Dioxide Level 24 mmol/L Anion Gap 7.0 mmol/L Blood Urea Nitrogen 14 mg/dl Creatinine 1.14 mg/dl Est Creatinine Clear Calc Drug Dose 42.7 ml/min Estimated GFR () 68.5 Estimated GFR (Non- 59.1 BUN/Creatinine Ratio 12.5 Random Glucose 104 mg/dl Calcium Level 7.6 mg/dl Assessment and Plan Mr. Greene is an 81 year old man with a history of prostate cancer and osteoblastic mets that presented with fatigue and found to have severe hypocalcemia thought secondary to his Denosumab (03/02/2017). Hypocalcemia secondary to chemotherapy (Denosumab): - Tele for cardiac monitoring- no acute events - Ca 7.6 today - HCTZ 25 mg daily - Continue Calcitrol, Tums, Calcium carbonate - Currently on IV Calcium gluconate 10,000 mg daily - Calcium sliding scale: -- Below 8, give 4 grams of calcium gluconate IV and call MD -- If 8-8.5, give 4 grams of calcium IV -- If 8.6-9, give 2 grams of calcium gluconate IV -- If 9.1-9.5, give 1 gram of calcium gluconate IV -- If > 9.6, do not give any calcium Syncopal event, likely vasovagal: - No acute events on tele, no EKG changes - Continue to monitor Hypophosphatemia- RESOLVED: Replacing w/ phosphate supplement 2 tabs QID, continue to follow Hypomagnesemia- RESOLVED: Continue to follow and replace PRN Prostate cancer w/ mets to bone, urinary retention: - Bey placed - Continue Flomax Stenotrophomonas and enterococcus UTI w/ chronic Bey: Completed 10 day course of antibiotic treatment JONATHAN on CKD stage II- RESOLVED: Follow PRP Superficial thrombophlebitis of right arm- RESOLVED: - Ultrasound confirmation of superficial thrombus involving the cephalic vein - Avoid IV line in right UE - Warm compress PRN for pain management Intertrigo/thrush: Nystatin swish and swallow x10 days- last day 04/11 and Nystatin powder for groin Seborrheic dermatitis: Completed 14 day course of Desonide for face GI prophylaxis: Zantac + Protonix DVT prophylaxis: Ambulation Code status: LEVEL V, DNR Dispo: Accepted to [facility]- hopeful discharge tomorrow- CM and PT/OT following
[2017-05-28] MEDS: MIRTAZAPINE TAB 15 MG TAB PO SCH (20:43)
[2017-05-28] MEDS: RANITIDINE HCL 150 MG TAB PO SCH (20:43)
[2017-05-28] MEDS: TAMSULOSIN HCL 0.4 MG CAP PO SCH (20:45)
[2017-05-29 00:41] VITALS: BP 133/70; PULSE 90; TEMP 36.8; O2SAT 96
[2017-05-29 04:11] VITALS: BP 124/52; PULSE 72; TEMP 36.5; O2SAT 95
[2017-05-29] MEDS: NEOMYCIN/POLYMYX/BACITR OINT 15 GM TUBE EXT SCH ×2 (06:00→12:17)
[2017-05-29 06:24] LABS: CALCIUM 7.8 mg/dl (8.5-10.1); CREATININE 1.11 mg/dl (0.60-1.40); PHOSPHORUS 2.6 mg/dl (2.5-4.9); POTASSIUM 3.9 mmol/L (3.5-5.1)
[2017-05-29] MEDS: SODIUM CHLORIDE 0.9% 1000ML 1,000 ML IV SCH (06:30)
[2017-05-29 07:10] VITALS: BP 143/69; PULSE 80; TEMP 36.7; O2SAT 95
[2017-05-29] MEDS: DOCUSATE SODIUM 100 MG CAP PO SCH (07:47)
[2017-05-29] MEDS: CALCIUM CARBONATE 500 MG CHEWABLE PO SCH ×3 (07:47→14:13)
[2017-05-29] MEDS: POT PHOSPHATE MONOBASIC W/ SOD TAB PO SCH ×2 (07:48→12:17)
[2017-05-29] MEDS: CALCITRIOL 0.5 MCG CAP PO SCH (07:48)
[2017-05-29] MEDS: CALCIUM CARBONATE 1250MG TAB PO SCH ×2 (07:48→12:17)
[2017-05-29] MEDS: PANTOprazole SOD 40 MG TAB PO SCH (07:48)
[2017-05-29] MEDS ORDERED: HYDROCHLOROTHIAZIDE 25 MG TAB PO SCH (09:00)
[2017-05-29] MEDS ORDERED: MAGNESIUM OXIDE 400 MG TAB PO SCH (09:00)
[2017-05-29] MEDS: SODIUM CHLORIDE 0.9% IV SCH (09:20)
[2017-05-29] MEDS: CALCIUM GLUCONATE IV SCH (09:20)
[2017-05-29] MEDS ORDERED: CLCC1250 PO (12:06)
[2017-05-29] MEDS ORDERED: MGNO400 PO (12:06)
[2017-05-29] MEDS ORDERED: TUMS PO (12:06)
[2017-05-29] MEDS ORDERED: [UNRECOGNIZED DRUG - CODE] IV (12:06)
[2017-05-29] MEDS ORDERED: RMR15 PO (12:06)
[2017-05-29] MEDS ORDERED: HYDR25TA5 PO (12:06)
[2017-05-29] MEDS ORDERED: POTTAB2 PO (12:06)
[2017-05-29 12:11] VITALS: BP 136/71; PULSE 79; TEMP 36.5; O2SAT 96
--- NOTE | 2017-05-29 12:13 | Discharge Instructions ---
Discharge Instructions Date of Service May 29, 2017. Admission Reason for Admission: Hypocalcemia Discharge Discharge Diagnosis / Problem: Hypocalcemia Discharge Goals Goal(s): Increase independence, Improve disease control, Learn about illness, Diagnostic testing, Therapeutic intervention, Prevent Disease Progression Activity Recommendations Activity Level: Up Ad Sravani . Additional Information Patient informed of condition: Yes Advance Directives: No DNR: Yes Level of Care: Skilled Communicable Disease: No Prognosis: Stable Berkowitz Catheter: Yes Instructions / Follow-Up Instructions / Follow-Up Hypocalcemia secondary to chemotherapy (Denosumab): - Ca 7.8 today- follow daily - HCTZ 25 mg daily - Continue Calcitrol, Tums, Calcium carbonate - Calcium gluconate sliding scale: -- Below 8, give 4 grams of calcium gluconate IV and call MD -- If 8-8.5, give 4 grams of calcium IV -- If 8.6-9, give 2 grams of calcium gluconate IV -- If 9.1-9.5, give 1 gram of calcium gluconate IV -- If > 9.6, do not give any calcium Hypophosphatemia: Phosphate supplement 2 tabs QID Hypomagnesemia: Mag-ox 400 mg BID Prostate cancer w/ mets to bone, urinary retention: - Berkowitz placed - Continue Flomax Stenotrophomonas and enterococcus UTI w/ chronic Berkowitz: Completed 10 day course of antibiotic treatment Intertrigo: Nystatin powder for groin PRN GI prophylaxis: Zantac + Prilosec DVT prophylaxis: Ambulation Code status: LEVEL V, DNR Dispo: Discharge to [facility] FOLLOW-UPS: Please follow-up with [facility] provider within 24-48 hours Please follow-up/keep all of your subspecialty appointments Current Hospital Diet Patient's current hospital diet: Regular Diet Discharge Diet Recommended Diet: Regular Diet Pending Studies Studies pending at discharge: no Physician Orders On Transfer Dressing Changes: None IV Therapy: IV Calcium gluconate daily Vital Signs: Routine Additional Orders: Check calcium level daily POLST Discussion: without POLST completion Medical Emergencies . Who to Call and When: Medical Emergencies: If at any time you feel your situation is an emergency, please call 911 immediately. . Non-Emergent Contact Non-Emergency issues call your: Primary Care Provider, Rn Transplant Call Non-Emergent contact if: you have a fever, your pain is not controlled, your pain is worsening, your pain is unusual for you, your pain is concerning you, wound has increased drainage, wound has increased redness, wound has increased pain, you have any medication questions . . "Provider Documentation" section prepared by Susanna Hadley. . Core Measure Problem Core Measures: None
[2017-05-29] MEDS ORDERED: CALC0.5C PO (12:14)
[2017-05-29] MEDS ORDERED: CLC100 PO (12:15)
[2017-05-29] MEDS ORDERED: NYSO15 EXT (12:15)
--- NOTE | 2017-05-29 12:29 | Discharge Summary ---
Discharge Summary Date of Service May 29, 2017. Discharge Summary Admission Date: Mar 15, 2017 at 14:26 Discharge Date: May 29, 2017 Discharge Disposition[facility] detention facility Principal Diagnosis: Hypocalcemia Problems/Secondary Diagnoses: Hypocalcemia secondary to chemotherapy (Denosumab) Syncopal event, likely vasovagal Hypophosphatemia Hypomagnesemia Prostate cancer w/ mets to bone urinary retention Stenotrophomonas and enterococcus UTI w/ chronic Berkowitz JONATHAN on CKD stage II Superficial thrombophlebitis of right arm Intertrigo thrush Seborrheic dermatitis Immunizations: Have You Had Influenza Vaccine: Yes History of Tetanus Vaccine?: Unknown History of Pneumococcal: Unknown History of Hepatitis B Vaccine: Unknown Procedures: ABDOMEN 2VIEW W/PA CHEST RTN HISTORY: 81 years-old Male tachy, vomiting ?aspiration PNA ?obstruction acute tachycardia with vomiting COMPARISON: Chest radiograph 05/19/2017 TECHNIQUE: AP view the chest with supine, left lateral decubitus views of the abdomen FINDINGS: Cardiomediastinal and hilar silhouettes are within normal limits. Atherosclerosis of the aorta. Left-sided PICC appears unchanged. Unchanged nodular opacity projecting over the left lung base, possibly nipple shadow. No pneumothorax, pleural effusion, focal airspace consolidation or overt pulmonary edema. Multifocal osseous blastic metastatic foci again seen throughout the axial and appendicular skeletal system. Bowel gas pattern appears nonobstructive. No gross pneumoperitoneum or pneumatosis. No urolith or fracture identified. IMPRESSION: 1. No acute process of the chest. 2. Nonobstructive bowel gas pattern without pneumoperitoneum. 3. Diffuse blastic metastatic disease throughout the axial and appendicular skeletal system redemonstrated. The above report was generated using voice recognition software. It may contain grammatical, syntax or spelling errors. Electronically signed by: Berlin Tobar M.D. 05/25/2017 8:20 AM Dictated Date/Time: 05/25/2017 8:18 AM The status of this report is Signed. Draft = Not yet reviewed or approved by Radiologist. Signed = Reviewed and approved by Radiologist CT SCAN OF THE BRAIN WITHOUT IV CONTRAST CLINICAL HISTORY: Syncope. COMPARISON STUDY: CT of the brain dated 02/20/2017. TECHNIQUE: Unenhanced axial CT scan of the brain is performed from the vertex to the skull base. A dose lowering technique was utilized adhering to the principles of ALARA. CT DOSE: 537.48 mGy.cm FINDINGS: Brain parenchyma: There are age-related involutional changes noting moderate confluent subcortical and periventricular microangiopathic change. There is no hemorrhage, mass effect, or evidence of acute territorial ischemia by CT criteria. Banuelos-white matter is preserved. No extra-axial fluid collection is seen. Ventricles, sulci, cisterns: Prominent secondary to involutional change. Intracranial vasculature: There is atherosclerotic calcification of the cavernous carotid and vertebral arteries. Calvarium: The skeletal structures are osteopenic. No depressed calvarial fracture is seen. Sinuses and mastoids: A small retention cyst is noted in the right maxillary antrum. Mild mucosal thickening is seen in the maxillary antra and ethmoid sinuses. The remaining visualized paranasal sinuses are clear. The mastoid air cells are well pneumatized. Orbits: The bony orbits are grossly intact. There are bilateral ocular lens implants. IMPRESSION: There is no hemorrhage, mass effect, or evidence of acute territorial ischemia by CT criteria. Electronically signed by: Zoltan Barfield M.D. 05/25/2017 9:20 AM Dictated Date/Time: 05/25/2017 9:14 AM The status of this report is Signed. Draft = Not yet reviewed or approved by Radiologist. Signed = Reviewed and approved by Radiologist Consultations: Nephrology Medication Reconciliation New Medications: Calcium Gluconate (Calcium Gluconate) 100 Mg/Ml Inj 1 DOSE IV UD for 3 Days -- Below 8, give 4 grams of calcium gluconate IV and call MD -- If 8-8.5, give 4 grams of calcium IV -- If 8.6-9, give 2 grams of calcium gluconate IV -- If 9.1-9.5, give 1 gram of calcium gluconate IV -- If > 9.6, do not give any calcium Calcitriol (Calcitriol) 0.5 Mcg Cap 10 MCG PO QAM for 30 Days Calcium Carbonate (Oyster Shell Calcium) 1,250 Mg Tab 3750 MG PO QID for 30 Days, #36 TAB Calcium Carbonate (Tums) 500 Mg Chew 2000 MG PO 5XDQ4H for 30 Days Docusate Sodium (Docusate Sodium) 100 Mg Cap 100 MG PO BID for 3 Days, #6 CAP Hydrochlorothiazide (Hydrochlorothiazide) 25 Mg Tab 25 MG PO QAM for 30 Days, #30 TAB Magnesium Oxide (Magnesium-Oxide) 400 Mg Tab 400 MG PO BID for 30 Days, #60 TAB Mirtazapine (Mirtazapine) 15 Mg Tab 15 MG PO HS for 30 Days, #30 TAB Nystatin (Nystatin) 45 Appln/15 Gm Oint 1 APPLN EXT PRN PRN for Itching for 3 Days Pot Phosphate Monobasic W/ Sod (Phospha 250 Neutral) 1 Tab Tab 2 TAB PO QID for 30 Days, #240 TAB Continued Medications: Omeprazole (Prilosec) 20 Mg Capcr 20 MG PO QAM Ranitidine (Zantac) 300 Mg Tab 300 MG PO HS Tamsulosin Hcl (Flomax) 0.4 Mg Cap 0.8 MG PO HS Discontinued Medications: Alendronate/Cholecalciferol (Fosamax+D 70MG/2800 Iu) 70 Mg Tab 1 AMP PO UD PRN for EVERY MONTH Finasteride (Propecia) 1 Mg Tab 1 MG PO HS Discharge Exam Review of Systems: Constitutional: No fever, No chills, No sweats, No weakness, No fatigue Eyes: No worsening of vision ENT: No hearing loss Respiratory: No cough, No shortness of breath, No hemoptysis Cardiovascular: No chest pain, No edema, No palpitations Abdomen: No pain, No nausea, No vomiting, No diarrhea, No constipation Musculoskeletal: No joint pain, No muscle pain, No swelling, No calf pain Genitourinary - Male: + problem reported (Berkowitz in place ) Neurologic: No weakness, No numbness/tingling Psychiatric: No depression symptoms, No anxiety Endocrine: No fatigue Hematologic / Lymphatic: No abnormal bleeding/bruising Integumentary: No rash, No itch, No new/changing skin lesions Physical Exam: General Appearance: no apparent distress Eyes: normal inspection, PERRL ENT: hearing grossly normal Neck: supple Respiratory/Chest: lungs clear, no respiratory distress, no accessory muscle use Cardiovascular: regular rate, rhythm Abdomen / GI: normal bowel sounds, non tender, soft Extremities: no calf tenderness, no pedal edema Neurologic/Psychiatric: alert, normal mood/affect, oriented x 3 Skin: normal color, warm/dry, no rash Hospital Course Mr. Greene is an 81 year old man with a history of prostate cancer and osteoblastic mets that presented with fatigue and found to have severe hypocalcemia thought secondary to his Denosumab (03/02/2017). Hypocalcemia secondary to chemotherapy (Denosumab): - Tele for cardiac monitoring- no acute events - Ca 7.8 today - HCTZ 25 mg daily - Continue Calcitrol, Tums, Calcium carbonate - Treated w/ IV Calcium gluconate- sliding scale: -- Below 8, give 4 grams of calcium gluconate IV and call MD -- If 8-8.5, give 4 grams of calcium IV -- If 8.6-9, give 2 grams of calcium gluconate IV -- If 9.1-9.5, give 1 gram of calcium gluconate IV -- If > 9.6, do not give any calcium Syncopal event, likely vasovagal: - No acute events on tele, no EKG changes - Continue to monitor Hypophosphatemia- RESOLVED: Replacing w/ phosphate supplement 2 tabs QID, continue to follow Hypomagnesemia: Restart Mag-ox 400 mg BID, continue to follow and replace PRN Prostate cancer w/ mets to bone, urinary retention: - Berkowitz placed - Continue Flomax Stenotrophomonas and enterococcus UTI w/ chronic Berkowitz: Completed 10 day course of antibiotic treatment JONATHAN on CKD stage II- RESOLVED: Follow PRP Superficial thrombophlebitis of right arm- RESOLVED: - Ultrasound confirmation of superficial thrombus involving the cephalic vein - Avoid IV line in right UE - Warm compress PRN for pain management Intertrigo/thrush: Nystatin swish and swallow x10 days- last day 04/11 and Nystatin powder for groin PRN Seborrheic dermatitis: Completed 14 day course of Desonide for face GI prophylaxis: Zantac + Protonix- resume Prilosec at discharge DVT prophylaxis: Ambulation Code status: LEVEL V, DNR Dispo: Discharge to [facility] Total Time Spent: Greater than 30 minutes This includes examination of the patient, discharge planning, medication reconciliation, and communication with other providers. Discharge Instructions Please refer to the electronic Patient Visit Report (Discharge Instructions) for additional information. Follow-Up Please follow-up with [facility] provider within 24-48 hours Please follow-up/keep all of your subspecialty appointments
[2017-05-29 14:13] VITALS: BP 136/71; PULSE 79; TEMP 36.5; O2SAT 96
[2017-06-08] MEDS ORDERED: CALC500C3 PO (15:09)
== END 2017-05-29 14:59 | DRG 641 ==
LOC: C.EDB 09:51 → C.2T 14:26 → ENRESERV 15:10 → C.4E 03-24 15:56 → ENRESERV 04-10 12:59 → C.MED 04-10 14:14
PROVIDERS: ADMIT Internal Medicine; ATTEND Internal Medicine
PROC: 02HV33Z Insertion of Infusion Device into Superior Vena Cava, Percutaneous Approach (ICD-10-PCS; principal; 2017-04-16)
PROC: 0HBRXZZ Excision of Toe Nail, External Approach (ICD-10-PCS; 2017-05-17)
PROC: 0HDRXZZ Extraction of Toe Nail, External Approach (ICD-10-PCS; 2017-05-17)
DX: E83.51 Hypocalcemia (principal); N39.0 Urinary tract infection, site not specified; T83.511A Infection and inflammatory reaction due to indwelling urethral catheter, initial encounter; C79.51 Secondary malignant neoplasm of bone; T45.1X5A Adverse effect of antineoplastic and immunosuppressive drugs, initial encounter; B37.0 Candidal stomatitis; N17.9 Acute kidney failure, unspecified; L03.031 Cellulitis of right toe; B35.1 Tinea unguium; E86.0 Dehydration; C61 Malignant neoplasm of prostate; R55 Syncope and collapse; I12.9 Hypertensive chronic kidney disease with stage 1 through stage 4 chronic kidney disease, or unspecified chronic kidney disease; Z85.828 Personal history of other malignant neoplasm of skin; Z87.891 Personal history of nicotine dependence; E83.42 Hypomagnesemia; K59.09 Other constipation; N18.2 Chronic kidney disease, stage 2 (mild); Z66 Do not resuscitate; B95.2 Enterococcus as the cause of diseases classified elsewhere; B96.89 Other specified bacterial agents as the cause of diseases classified elsewhere; E83.39 Other disorders of phosphorus metabolism; L60.0 Ingrowing nail; L21.9 Seborrheic dermatitis, unspecified; I80.8 Phlebitis and thrombophlebitis of other sites; N40.1 Benign prostatic hyperplasia with lower urinary tract symptoms; R62.7 Adult failure to thrive; R33.9 Retention of urine, unspecified; H61.20 Impacted cerumen, unspecified ear; L98.9 Disorder of the skin and subcutaneous tissue, unspecified; Y92.009 Unspecified place in unspecified non-institutional (private) residence as the place of occurrence of the external cause

== ENCOUNTER 2017-05-30 12:45 | Inpatient (IN) | payer OTHER ==
[~2017-05-30] VITALS: Ht 165.1 cm; Wt 62.9 kg
[~2017-05-30 12:45] MED LIST changes: -ANDROGEN IM; +CALC0.5C PO; +CLC100 PO; +CLCC1250 PO; -FINA1TAB3 PO; -FSMD/70 PO; +HYDR25TA5 PO; +MGNO400 PO; +NYSO15 EXT; +POTTAB2 PO; +RMR15 PO; +TUMS PO; +[UNRECOGNIZED DRUG - CODE] IV
[2017-05-30] MEDS ORDERED: ONDANSETRON INJ 2 MG/ML 2 ML VIAL IV PRN (15:15)
[2017-05-30] MEDS ORDERED: POLYETHYLENE (MIRALAX) 17 GM PACK PO PRN (15:15)
[2017-05-30] MEDS ORDERED: ACETAMINOPHEN 325 MG TAB PO PRN (15:15)
--- NOTE | 2017-05-30 15:26 | History and Physical ---
History & Physical Date & Time of Service: May 30, 2017 at 15:22 Chief Complaint: Hypokalcemia Primary Care Physician: No Doctor, Assigned History of Present Illness Mr. Greene is an 81 year old man with a history of prostate cancer and osteoblastic mets that presented with fatigue and found to have severe hypocalcemia thought secondary to his Denosumab 03/02/2017 through 05/29/17. He presents today as [facility] home was unable to manage IV calcium infusion daily, PICC line and cardiac monitoring so have sent him back to our facility. CM will work to place in a LTACH facility. Pt reports feeling very good overall and has no acute complaints. His Ca today was 8.1 on labs drawn at [facility]. Past Medical/Surgical History Medical Problems: (1) Dehydration (2) Failure to thrive (3) Hypertension (4) Hypocalcemia (5) Hypomagnesemia (6) Intractable nausea and vomiting (7) Prostate cancer (8) Skin cancer (9) Unintentional weight loss Surgical Problems: (1) S/P hernia repair Social History Smoking Status: Former Smoker Alcohol Use: none Drug Use: none Marital Status: Housing status: lives with family Occupational Status: retired Immunizations History of Influenza Vaccine: Yes History of Tetanus Vaccine?: Unknown History of Pneumococcal: Unknown History of Hepatitis B Vaccine: Unknown Allergies Coded Allergies: No Known Allergies (Unverified , 03/15/17) Home Medications Scheduled Calcitriol (Calcitriol), 10 MCG PO QAM Calcium Carbonate (Oyster Shell Calcium), 3,750 MG PO QID Calcium Carbonate (Tums), 2,000 MG PO [id number] Calcium Gluconate (Calcium Gluconate), 1 DOSE IV UD Docusate Sodium (Docusate Sodium), 100 MG PO BID Hydrochlorothiazide (Hydrochlorothiazide), 25 MG PO QAM Magnesium Oxide (Magnesium-Oxide), 400 MG PO BID Mirtazapine (Mirtazapine), 15 MG PO HS Omeprazole (Prilosec), 20 MG PO QAM Pot Phosphate Monobasic W/ Sod (Phospha 250 Neutral), 2 TAB PO QID Ranitidine (Zantac), 300 MG PO HS Tamsulosin Hcl (Flomax), 0.8 MG PO HS Scheduled PRN Nystatin (Nystatin), 1 APPLN EXT PRN PRN for Itching Review of Systems Constitutional: + problem reported (+ lesion on scalp, painful to touch), No fever, No chills, No sweats, No fatigue Eyes: No redness, No diplopia ENT: No tinnitus, No trouble swallowing Respiratory: No cough, No shortness of breath, No dyspnea on exertion Cardiovascular: No chest pain, No edema Abdomen: No pain, No nausea, No vomiting, No diarrhea, No constipation Musculoskeletal: No joint pain Genitourinary - Male: + problem reported (chronic indwelling bey, changed a few days ago while here in hospital during previous stay) Neurologic: No weakness, No numbness/tingling, No balance problems Psychiatric: + depression symptoms (improved with addition of medication - appears this is mirtazapine) Endocrine: No fatigue Integumentary: No rash, No itch Physical Exam General Appearance: WD/WN, no apparent distress Head: normocephalic, atraumatic Eyes: PERRL, EOMI ENT: hearing grossly normal, pharynx normal, + pertinent finding (+ apthous ulcer on R lower gums from tight fitting dentures, no surrounding erythema. MMM. ) Neck: supple, no JVD Respiratory/Chest: lungs clear, normal breath sounds, no respiratory distress, no accessory muscle use Cardiovascular: regular rate, rhythm, no murmur, normal peripheral pulses Abdomen/GI: normal bowel sounds, non tender, soft Genitourinary - Male: + pertinent finding (chronic indwelling bey draining clear yellow urine) Back: normal inspection Extremities/Musculoskelatal: normal inspection, no pedal edema Neurologic/Psych: alert, normal mood/affect, normal reflexes, oriented x 3 Skin: normal color, warm/dry, + pertinent finding (+scalp lesion which is dry and scabbed, no surrounding erythema or signs of infection) Diagnostics Laboratory Results Results Past 24 Hours Test 05/30/17 15:03 Range/Units EKG Will order 12 lead to check with hypocalcemia Impression Assessment and Plan Mr. Greene is an 81 year old man with a history of prostate cancer and osteoblastic mets that presented with fatigue and found to have severe hypocalcemia thought secondary to his Denosumab 03/02/2017 through 05/29/17. PT represents for hypocalcemia again. Hypocalcemia secondary to chemotherapy (Denosumab): - Admit to med/surg - Check 12 lead EKG routine - Ca in process, was 7.8 upon discharge yesterday and with repeat labs at outside facility was 8.1 - plan to give 4 grams IV ca+ now - HCTZ 25 mg daily - Continue Calcitrol, Tums, Calcium carbonate - Tx w/ IV Calcium gluconate- sliding scale: -- Below 8, give 4 grams of calcium gluconate IV and call MD -- If 8-8.5, give 4 grams of calcium IV -- If 8.6-9, give 2 grams of calcium gluconate IV -- If 9.1-9.5, give 1 gram of calcium gluconate IV -- If > 9.6, do not give any calcium Hypophosphatemia- - Follow prp, continue phosphate supplement 2 tabs QID, continue to follow Hypomagnesemia - Follow prp, Mag-ox 400 mg BID, continue to follow and replace PRN 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 Gonzales as outpatient - Continue Flomax Seborrheic dermatitis: Completed 14 day course of Desonide for face - lesion on scalp noted, pt report this is now slightly painful to touch, can defer to dermatology unless lesion is acutely changing. Apthous ulceration oral mucosa - Continue supportive care, may use ambesol gel or other local anesthetic for this. Would encourage he gets refitted for dentures as an outpatient. Depression Insomnia - Continue mirtazapine HS - Mood has been improving as well as appetite per his report. GI prophylaxis: Zantac + Protonix- resume Prilosec at discharge DVT prophylaxis: Ambulation, PT/OT Code status: LEVEL V, DNR Disposition: From [facility] to assist with dc planning. Looking for LTACH facility Resuscitation Status VTE Prophylaxis Will order VTE Prophylaxis: No (ambulatory) Reason for no VTE drug order: Treatment not indicated Reason no Mechanical VTE Order: Treatment not indicated Social Service Consult >80 yr.& Lives Alone
[2017-05-30] MEDS ORDERED: CALCIUM GLUCONATE 10% 4,000 MG in SODIUM CHLORIDE 0.9% 100ML 100 ML IV ONE (15:30)
[2017-05-30 15:54] VITALS: BP 149/81; PULSE 104; TEMP 36.5; O2SAT 96; Ht 165.1 cm; Wt 62.9 kg
[2017-05-30 15:55] LABS: CARBON DIOXIDE 22 mmol/L (21-32); CREATININE 1.45 mg/dl (0.60-1.40); GLUCOSE 141 mg/dl (70-99); POTASSIUM 3.9 mmol/L (3.5-5.1); SODIUM 141 mmol/L (136-145)
[2017-05-30] MEDS ORDERED: NURSING DECISION MEDICATION ORDER SCH (16:45)
[2017-05-30] MEDS: POT PHOSPHATE MONOBASIC W/ SOD TAB PO SCH ×2 (16:47→20:43)
[2017-05-30] MEDS: CALCIUM CARBONATE 1250MG TAB PO SCH ×2 (16:48→20:43)
[2017-05-30] MEDS: CALCIUM CARBONATE 500 MG CHEWABLE PO SCH ×2 (19:11→23:43)
[2017-05-30 19:14] LABS: BLOOD UREA NITROGEN 17 mg/dl (7-18)
[2017-05-30] MEDS: DOCUSATE SODIUM 100 MG CAP PO SCH (20:42)
[2017-05-30] MEDS: MAGNESIUM OXIDE 400 MG TAB PO SCH (20:43)
[2017-05-30] MEDS: MIRTAZAPINE TAB 15 MG TAB PO SCH (20:44)
[2017-05-30] MEDS: RANITIDINE HCL 150 MG TAB PO SCH (20:44)
[2017-05-30] MEDS: TAMSULOSIN HCL 0.4 MG CAP PO SCH (20:44)
[2017-05-30 23:08] VITALS: BP 138/77; PULSE 104; TEMP 36.7; O2SAT 96
[2017-05-31 06:39] LABS: BASO % 0.7 %; BASO ABS # 0.04 K/uL (0-0.2); EOS % 5.9 %; EOS ABS # 0.33 K/uL (0-0.5); HEMATOCRIT 30.6 % (42-52); HEMOGLOBIN 10.3 g/dL (14.0-18.0); IG# 0.02 K/uL (0.00-0.02); LYMPH % 45.4 %; LYMPH ABS # 2.53 K/uL (1.2-3.4); MEAN CELL VOLUME 87.9 fL (80-100); MEAN CORPUSCULAR HEMOGLOBIN 29.6 pg (25-34); MEAN CORPUSCULAR HGB CONC 33.7 g/dl (32-36); MEAN PLATELET VOLUME 8.2 fL (7.4-10.4); MONO ABS # 0.39 K/uL (0.11-0.59); NEUT % 40.6 %; NEUT ABS # 2.26 K/uL (1.4-6.5); PLATELET COUNT 176 K/uL (130-400); RED CELL DISTRIBUTION WIDTH CV 14.4 % (11.5-14.5); RED CELL DISTRIBUTION WIDTH SD 45.8 fL (36.4-46.3); WHITE BLOOD COUNT 5.57 K/uL (4.8-10.8)
[2017-05-31 07:03] LABS: CALCIUM 7.7 mg/dl (8.5-10.1); CREATININE 1.33 mg/dl (0.60-1.40); PHOSPHORUS 2.9 mg/dl (2.5-4.9); POTASSIUM 3.9 mmol/L (3.5-5.1)
[2017-05-31 07:39] VITALS: BP 114/60; PULSE 80; TEMP 36.7; O2SAT 97
[2017-05-31] MEDS: DOCUSATE SODIUM 100 MG CAP PO SCH ×2 (07:51→20:52)
[2017-05-31] MEDS: HYDROCHLOROTHIAZIDE 25 MG TAB PO SCH (07:51)
[2017-05-31] MEDS: CALCIUM CARBONATE 500 MG CHEWABLE PO SCH ×5 (07:51→23:33)
[2017-05-31] MEDS: POT PHOSPHATE MONOBASIC W/ SOD TAB PO SCH ×4 (07:52→20:53)
[2017-05-31] MEDS: CALCIUM CARBONATE 1250MG TAB PO SCH ×4 (07:52→20:54)
[2017-05-31] MEDS: MAGNESIUM OXIDE 400 MG TAB PO SCH ×2 (07:52→20:53)
[2017-05-31] MEDS: PANTOprazole SOD 40 MG TAB PO SCH (07:52)
[2017-05-31] MEDS: CALCITRIOL 0.5 MCG CAP PO SCH (07:53)
[2017-05-31 08:00] VITALS: O2SAT 97
[2017-05-31] MEDS ORDERED: CALCIUM GLUCONATE 10% 4,000 MG in SODIUM CHLORIDE 0.9% 100ML 100 ML IV SCH (08:45)
--- NOTE | 2017-05-31 10:04 | Clinical Documentation Query ---
CLINICAL DOCUMENTATION QUERY 81 yo male admitted with hypocalcemia s/p chemotherapy. Creatinine level on 05/29 was 1.11 and trended up to 1.45, and currently 1.33. GFRs = 61 trended down to 44.2 and currently 49. In your clinical opinion is this patient being managed for: ( ) Acute kidney failure, resolved ( x ) Not Agree ( ) Other explanation of clinical findings (Please Explain) ( ) Unable to determine (Please Define) ( ) Need to Discuss The medical record reflects the following clinical findings, treatment, and risk factors. Clinical Indicators: As above Treatment: Serial PRPs Risk Factors: Age, HTN, dehydration Please clarify and document your clinical opinion in the progress notes and discharge summary. Terms such as "probable", "suspected", "likely", "questionable", "possible", or "still to be ruled out" are acceptable. IF IN AGREEMENT, YOU MUST DOCUMENT ABOVE DIAGNOSTIC STATEMENT IN DAILY PROGRESS NOTES AND DISCHARGE SUMMARY. This document is not part of the patient's record. Thank You, Priscila German RN [phone]
[2017-05-31] MEDS ORDERED: BENZOCAINE 20% (ORAJEL) 11.9 GM TUBE MT PRN (10:15)
--- NOTE | 2017-05-31 10:23 | Hospitalist Progress Note ---
Hospitalist Progress Note Date of Service May 31, 2017. Subjective Pt evaluation today including: conversation w/ patient, physical exam, lab review, review of inpatient medication list Voiding: bey catheter in place Patient resting in bed. Feeling well. Eating and drinking OK. Transferred back to hospital yesterday from [facility] as they could not manage his Calcium level. Patient denies any fever, chills, sweats, lightheadedness, dizziness, vision changes, CP, palpitations, edema, SOB, wheezing, cough, abdominal pain, nausea, vomiting, diarrhea, urinary symptoms, melena, numbness/tingling, weakness, muscle/joint pain, anxiety/depression, active bleeding, or new skin discoloration/changes. Medications Current Inpatient Medications Medications (Trade) Dose Ordered Sig/Jonathan Route Start Time Stop Time Status Last Admin Dose Admin Acetaminophen (Tylenol Tab) 650 mg Q4H PRN PO 05/30/17 15:15 06/29/17 15:14 Polyethylene (Miralax Powder Packet) 17 gm DAILY PRN PO 05/30/17 15:15 06/29/17 15:14 Ondansetron HCl (Zofran Inj) 4 mg Q6H PRN IV 05/30/17 15:15 06/29/17 15:14 Calcitriol (Rocaltrol Cap) 10 mcg QAM PO 05/31/17 09:00 06/30/17 08:59 05/31/17 07:53 10 MCG Calcium Carbonate (oS-Randy 500 TAB) 3,750 mg QID PO 05/30/17 17:00 06/29/17 16:59 05/31/17 07:52 3,750 MG Calcium Carbonate (Tums Chew Tab) 2,000 mg 5XDQ4H PO 05/30/17 19:00 06/29/17 18:59 05/31/17 07:51 2,000 MG Docusate Sodium (coLACE CAP) 100 mg BID PO 05/30/17 21:00 06/29/17 20:59 05/31/17 07:51 100 MG Hydrochlorothiazide (Hydrochlorothiazide Tab) 25 mg QAM PO 05/31/17 09:00 06/30/17 08:59 05/31/17 07:51 25 MG Magnesium Oxide (Mag-Ox Tab) 400 mg BID PO 05/30/17 21:00 06/29/17 20:59 05/31/17 07:52 400 MG Mirtazapine (Remeron Tab) 15 mg HS PO 05/30/17 21:00 06/29/17 20:59 05/30/17 20:44 15 MG Potassium/ Phosphorus/Sodium (Phospha 250 Neutral 155-852-130 Mg) 2 tab QID PO 05/30/17 17:00 06/29/17 16:59 05/31/17 07:52 2 TAB Tamsulosin HCl (Flomax Cap) 0.8 mg HS PO 05/30/17 21:00 06/29/17 20:59 05/30/17 20:44 0.8 MG Pantoprazole Sodium (Protonix Tab) 40 mg QAM PO 05/31/17 09:00 06/30/17 08:59 05/31/17 07:52 40 MG Ranitidine HCl (zANTac TAB) 300 mg HS PO 05/30/17 21:00 06/29/17 20:59 05/30/17 20:44 300 MG Heparin Sodium (Porcine) (Heparin 10 Unit/ ml 5 ml Flush) 5 ml PRN PRN FLUSH 05/30/17 16:45 06/29/17 16:44 05/30/17 16:43 5 ML Calcium Gluconate 4000 mg/Sodium Chloride 140 ml @ 140 mls/hr TODAY@0845 IV 05/31/17 08:45 05/31/17 11:00 05/31/17 09:05 140 MLS/HR Objective Vital Signs Date Time Temp Pulse Resp B/P (MAP) Pulse Ox O2 Delivery O2 Flow Rate FiO2 05/31/17 08:00 97 Room Air 05/31/17 07:39 36.7 80 15 114/60 (78) 97 Room Air 05/31/17 00:00 Room Air 05/30/17 23:08 36.7 104 18 138/77 (97) 96 Room Air 05/30/17 15:54 36.5 104 18 149/81 96 Room Air Physical Exam General Appearance: no apparent distress Eyes: normal inspection, PERRL ENT: hearing grossly normal Neck: supple Respiratory/Chest: lungs clear, no respiratory distress, no accessory muscle use Cardiovascular: regular rate, rhythm Abdomen: normal bowel sounds, non tender, soft Extremities: no pedal edema, no calf tenderness Neurologic/Psychiatric: alert, normal mood/affect, oriented x 3 Skin: normal color, warm/dry, no rash Laboratory Results Last 24 Hours Test 05/30/17 15:29 05/31/17 05:39 Sodium Level 141 mmol/L 141 mmol/L Potassium Level 3.9 mmol/L 3.9 mmol/L Chloride Level 109 mmol/L 111 mmol/L Carbon Dioxide Level 22 mmol/L 27 mmol/L Anion Gap 9.0 mmol/L 3.0 mmol/L Blood Urea Nitrogen 17 mg/dl 15 mg/dl Creatinine 1.45 mg/dl 1.33 mg/dl Estimated GFR () 51.2 56.9 Estimated GFR (Non- 44.2 49.1 BUN/Creatinine Ratio 11.8 11.5 Random Glucose 141 mg/dl 85 mg/dl Calcium Level 8.0 mg/dl 7.7 mg/dl White Blood Count 5.57 K/uL Red Blood Count 3.48 M/uL Hemoglobin 10.3 g/dL Hematocrit 30.6 % Mean Corpuscular Volume 87.9 fL Mean Corpuscular Hemoglobin 29.6 pg Mean Corpuscular Hemoglobin Concent 33.7 g/dl Platelet Count 176 K/uL Mean Platelet Volume 8.2 fL Neutrophils (%) (Auto) 40.6 % Lymphocytes (%) (Auto) 45.4 % Monocytes (%) (Auto) 7.0 % Eosinophils (%) (Auto) 5.9 % Basophils (%) (Auto) 0.7 % Neutrophils # (Auto) 2.26 K/uL Lymphocytes # (Auto) 2.53 K/uL Monocytes # (Auto) 0.39 K/uL Eosinophils # (Auto) 0.33 K/uL Basophils # (Auto) 0.04 K/uL RDW Standard Deviation 45.8 fL RDW Coefficient of Variation 14.4 % Immature Granulocyte % (Auto) 0.4 % Immature Granulocyte # (Auto) 0.02 K/uL Est Creatinine Clear Calc Drug Dose 36.6 ml/min Phosphorus Level 2.9 mg/dl Magnesium Level 1.9 mg/dl Assessment and Plan Mr. Greene is an 81 year old man with a history of prostate cancer and osteoblastic mets that presented with fatigue and found to have severe hypocalcemia thought secondary to his Denosumab 03/02/2017 through 05/29/17. PT represents for hypocalcemia again. 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 Gonzales: Continue Flomax Seborrheic dermatitis: Completed 14 day course of Desonide for face Aphthous ulceration oral mucosa: Supportive care, Orajel QID PRN for pain Depression, insomnia: Continue mirtazapine HS GI prophylaxis: Zantac + Protonix- resume Prilosec at discharge DVT prophylaxis: Ambulation Code status: LEVEL V, DNR Disposition: Discharge uncertain at this time- CM and PT/OT following
[2017-05-31 14:35] VITALS: BP 167/84; PULSE 97; O2SAT 95
[2017-05-31 15:03] VITALS: BP 139/75; PULSE 80; TEMP 36.6; O2SAT 96
[2017-05-31] MEDS: TAMSULOSIN HCL 0.4 MG CAP PO SCH (20:53)
[2017-05-31] MEDS: RANITIDINE HCL 150 MG TAB PO SCH (20:54)
[2017-05-31] MEDS: MIRTAZAPINE TAB 15 MG TAB PO SCH (20:55)
[2017-05-31 23:17] VITALS: BP 139/77; PULSE 92; TEMP 37.1; O2SAT 97
[2017-06-01 06:28] LABS: CREATININE 1.42 mg/dl (0.60-1.40)
[2017-06-01 07:22] VITALS: BP 118/60; PULSE 87; TEMP 37; O2SAT 95
[2017-06-01] MEDS: CALCIUM CARBONATE 500 MG CHEWABLE PO SCH ×5 (07:47→23:13)
[2017-06-01] MEDS: CALCITRIOL 0.5 MCG CAP PO SCH (07:48)
[2017-06-01] MEDS: HYDROCHLOROTHIAZIDE 25 MG TAB PO SCH (07:49)
[2017-06-01] MEDS: DOCUSATE SODIUM 100 MG CAP PO SCH ×2 (07:50→20:55)
[2017-06-01] MEDS: CALCIUM CARBONATE 1250MG TAB PO SCH ×4 (07:50→20:55)
[2017-06-01] MEDS: PANTOprazole SOD 40 MG TAB PO SCH (07:50)
[2017-06-01] MEDS: MAGNESIUM OXIDE 400 MG TAB PO SCH ×2 (07:50→20:56)
[2017-06-01] MEDS: POT PHOSPHATE MONOBASIC W/ SOD TAB PO SCH ×4 (07:50→20:54)
[2017-06-01 08:00] VITALS: O2SAT 95
[2017-06-01] MEDS: CALCIUM GLUCONATE 10% 4,000 MG in SODIUM CHLORIDE 0.9% 100ML 100 ML IV SCH (09:00)
--- NOTE | 2017-06-01 11:02 | Hospitalist Progress Note ---
Hospitalist Progress Note Date of Service Jun 01, 2017. Subjective Pt evaluation today including: conversation w/ patient, physical exam, lab review, review of inpatient medication list Voiding: bey catheter in place Patient sitting in bedside chair. In good spirits today. Continues to have a good appetite. Hoping to go outside to [facility] this afternoon. Mouth sores are better and pain controlled with PRN Orajel. Patient denies any fever, chills, sweats, lightheadedness, dizziness, vision changes, CP, palpitations, edema, SOB, wheezing, cough, abdominal pain, nausea, vomiting, diarrhea, urinary symptoms, melena, numbness/tingling, weakness, muscle/joint pain, anxiety/depression, active bleeding, or new skin discoloration/changes. Medications Current Inpatient Medications Medications (Trade) Dose Ordered Sig/Jonathan Route Start Time Stop Time Status Last Admin Dose Admin Acetaminophen (Tylenol Tab) 650 mg Q4H PRN PO 05/30/17 15:15 06/29/17 15:14 Polyethylene (Miralax Powder Packet) 17 gm DAILY PRN PO 05/30/17 15:15 06/29/17 15:14 Ondansetron HCl (Zofran Inj) 4 mg Q6H PRN IV 05/30/17 15:15 06/29/17 15:14 Calcitriol (Rocaltrol Cap) 10 mcg QAM PO 05/31/17 09:00 06/30/17 08:59 06/01/17 07:48 10 MCG Calcium Carbonate (oS-Randy 500 TAB) 3,750 mg QID PO 05/30/17 17:00 06/29/17 16:59 06/01/17 07:50 3,750 MG Calcium Carbonate (Tums Chew Tab) 2,000 mg 5XDQ4H PO 05/30/17 19:00 06/29/17 18:59 06/01/17 07:47 2,000 MG Docusate Sodium (coLACE CAP) 100 mg BID PO 05/30/17 21:00 06/29/17 20:59 06/01/17 07:50 100 MG Hydrochlorothiazide (Hydrochlorothiazide Tab) 25 mg QAM PO 05/31/17 09:00 06/30/17 08:59 06/01/17 07:49 25 MG Magnesium Oxide (Mag-Ox Tab) 400 mg BID PO 05/30/17 21:00 06/29/17 20:59 06/01/17 07:50 400 MG Mirtazapine (Remeron Tab) 15 mg HS PO 05/30/17 21:00 06/29/17 20:59 05/31/17 20:55 15 MG Potassium/ Phosphorus/Sodium (Phospha 250 Neutral 155-852-130 Mg) 2 tab QID PO 05/30/17 17:00 06/29/17 16:59 06/01/17 07:50 2 TAB Tamsulosin HCl (Flomax Cap) 0.8 mg HS PO 05/30/17 21:00 06/29/17 20:59 05/31/17 20:53 0.8 MG Pantoprazole Sodium (Protonix Tab) 40 mg QAM PO 05/31/17 09:00 06/30/17 08:59 06/01/17 07:50 40 MG Ranitidine HCl (zANTac TAB) 300 mg HS PO 05/30/17 21:00 06/29/17 20:59 05/31/17 20:54 300 MG Heparin Sodium (Porcine) (Heparin 10 Unit/ ml 5 ml Flush) 5 ml PRN PRN FLUSH 05/30/17 16:45 06/29/17 16:44 06/01/17 05:53 5 ML Benzocaine (Orajel 20% Oral Gel) 1 appln QID PRN MT 05/31/17 10:15 06/30/17 10:14 05/31/17 11:11 1 APPLN Calcium Gluconate 4000 mg/Sodium Chloride 140 ml @ 140 mls/hr QAM IV 06/01/17 09:00 07/01/17 08:59 06/01/17 09:00 140 MLS/HR Objective Vital Signs Date Time Temp Pulse Resp B/P (MAP) Pulse Ox O2 Delivery O2 Flow Rate FiO2 06/01/17 08:00 95 Room Air 06/01/17 07:22 37.0 87 20 118/60 (79) 95 Room Air 06/01/17 00:00 Room Air 05/31/17 23:17 37.1 92 18 139/77 (97) 97 Room Air 05/31/17 18:12 Room Air 05/31/17 15:03 36.6 80 17 139/75 (96) 96 Room Air 05/31/17 14:35 97 95 Physical Exam General Appearance: no apparent distress Eyes: normal inspection, PERRL ENT: hearing grossly normal Neck: supple Respiratory/Chest: lungs clear, no respiratory distress, no accessory muscle use Cardiovascular: regular rate, rhythm Abdomen: normal bowel sounds, non tender, soft Extremities: no pedal edema, no calf tenderness Neurologic/Psychiatric: alert, normal mood/affect, oriented x 3 Skin: normal color, warm/dry, no rash Laboratory Results Last 24 Hours Test 06/01/17 05:35 Sodium Level 144 mmol/L Potassium Level 4.0 mmol/L Chloride Level 108 mmol/L Carbon Dioxide Level 31 mmol/L Anion Gap 5.0 mmol/L Blood Urea Nitrogen 18 mg/dl Creatinine 1.42 mg/dl Est Creatinine Clear Calc Drug Dose 34.3 ml/min Estimated GFR () 52.6 Estimated GFR (Non- 45.4 BUN/Creatinine Ratio 12.5 Random Glucose 88 mg/dl Calcium Level 8.0 mg/dl Assessment and Plan Mr. Greene is an 81 year old man with a history of prostate cancer and osteoblastic mets that presented with fatigue and found to have severe hypocalcemia thought secondary to his Denosumab 03/02/2017 through 05/29/17. PT represents for hypocalcemia again. 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 Gonzales: Continue Flomax Seborrheic dermatitis: Completed 14 day course of Desonide for face Aphthous ulceration oral mucosa: Supportive care, Orajel QID PRN for pain Depression, insomnia- STABLE: Continue mirtazapine HS GI prophylaxis: Zantac + Protonix- resume Prilosec at discharge DVT prophylaxis: Ambulation Code status: LEVEL V, DNR Disposition: Discharge uncertain at this time- CM and PT/OT following
[2017-06-01 15:43] VITALS: BP 113/67; PULSE 97; TEMP 37.1; O2SAT 97
[2017-06-01 16:00] VITALS: O2SAT 97
[2017-06-01] MEDS: RANITIDINE HCL 150 MG TAB PO SCH (20:55)
[2017-06-01] MEDS: TAMSULOSIN HCL 0.4 MG CAP PO SCH (20:56)
[2017-06-01] MEDS: MIRTAZAPINE TAB 15 MG TAB PO SCH (21:00)
[2017-06-02 00:09] VITALS: BP 116/71; PULSE 89; TEMP 36.7; O2SAT 96
[2017-06-02 06:34] LABS: CALCIUM 7.9 mg/dl (8.5-10.1); CREATININE 1.44 mg/dl (0.60-1.40); POTASSIUM 4.3 mmol/L (3.5-5.1)
[2017-06-02 07:37] VITALS: BP 114/66; PULSE 53; TEMP 36.8; O2SAT 96
[2017-06-02] MEDS: DOCUSATE SODIUM 100 MG CAP PO SCH ×2 (07:56→21:15)
[2017-06-02] MEDS: CALCIUM GLUCONATE 10% 4,000 MG in SODIUM CHLORIDE 0.9% 100ML 100 ML IV SCH (07:56)
[2017-06-02] MEDS: CALCIUM CARBONATE 1250MG TAB PO SCH ×4 (07:56→21:14)
[2017-06-02] MEDS: CALCIUM CARBONATE 500 MG CHEWABLE PO SCH ×5 (07:56→22:45)
[2017-06-02] MEDS: POT PHOSPHATE MONOBASIC W/ SOD TAB PO SCH ×4 (07:57→21:17)
[2017-06-02] MEDS: CALCITRIOL 0.5 MCG CAP PO SCH (07:57)
[2017-06-02] MEDS: MAGNESIUM OXIDE 400 MG TAB PO SCH ×2 (07:57→21:16)
[2017-06-02] MEDS: HYDROCHLOROTHIAZIDE 25 MG TAB PO SCH (07:58)
[2017-06-02] MEDS: PANTOprazole SOD 40 MG TAB PO SCH (07:58)
[2017-06-02 15:37] VITALS: BP 114/72; PULSE 89; TEMP 37.4; O2SAT 96
--- NOTE | 2017-06-02 15:38 | Progress Note ---
Subjective Date of Service: Jun 02, 2017. Subjective Pt evaluation today including: conversation w/ patient, physical exam, lab review, review of inpatient medication list Pain: no pain PO Intake: adequate Voiding: no voiding problems patient doing well, happy today reviewed labs, Ca still low at 7.9 but corrected is about 8.8 ionized Ca is 1.02 Problem List Medical Problems: (1) Dehydration Status: Acute (2) Failure to thrive Status: Acute (3) Hypomagnesemia Status: Acute (4) UTI (urinary tract infection) Status: Acute (5) Vomiting Status: Acute Review of Systems All Other Systems: Reviewed and Negative Medications Current Inpatient Medications Medications (Trade) Dose Ordered Sig/Jonathan Route Start Time Stop Time Status Last Admin Dose Admin Acetaminophen (Tylenol Tab) 650 mg Q4H PRN PO 05/30/17 15:15 06/29/17 15:14 Polyethylene (Miralax Powder Packet) 17 gm DAILY PRN PO 05/30/17 15:15 06/29/17 15:14 Ondansetron HCl (Zofran Inj) 4 mg Q6H PRN IV 05/30/17 15:15 06/29/17 15:14 Calcitriol (Rocaltrol Cap) 10 mcg QAM PO 05/31/17 09:00 06/30/17 08:59 06/02/17 07:57 10 MCG Calcium Carbonate (oS-Randy 500 TAB) 3,750 mg QID PO 05/30/17 17:00 06/29/17 16:59 06/02/17 13:15 3,750 MG Calcium Carbonate (Tums Chew Tab) 2,000 mg 5XDQ4H PO 05/30/17 19:00 06/29/17 18:59 06/02/17 10:53 2,000 MG Docusate Sodium (coLACE CAP) 100 mg BID PO 05/30/17 21:00 06/29/17 20:59 06/02/17 07:56 100 MG Hydrochlorothiazide (Hydrochlorothiazide Tab) 25 mg QAM PO 05/31/17 09:00 06/30/17 08:59 06/02/17 07:58 25 MG Magnesium Oxide (Mag-Ox Tab) 400 mg BID PO 05/30/17 21:00 06/29/17 20:59 06/02/17 07:57 400 MG Mirtazapine (Remeron Tab) 15 mg HS PO 05/30/17 21:00 06/29/17 20:59 06/01/17 21:00 15 MG Potassium/ Phosphorus/Sodium (Phospha 250 Neutral 155-852-130 Mg) 2 tab QID PO 05/30/17 17:00 06/29/17 16:59 06/02/17 13:15 2 TAB Tamsulosin HCl (Flomax Cap) 0.8 mg HS PO 05/30/17 21:00 06/29/17 20:59 06/01/17 20:56 0.8 MG Pantoprazole Sodium (Protonix Tab) 40 mg QAM PO 05/31/17 09:00 06/30/17 08:59 06/02/17 07:58 40 MG Ranitidine HCl (zANTac TAB) 300 mg HS PO 05/30/17 21:00 06/29/17 20:59 06/01/17 20:55 300 MG Heparin Sodium (Porcine) (Heparin 10 Unit/ ml 5 ml Flush) 5 ml PRN PRN FLUSH 05/30/17 16:45 06/29/17 16:44 06/02/17 09:23 5 ML Benzocaine (Orajel 20% Oral Gel) 1 appln QID PRN MT 05/31/17 10:15 06/30/17 10:14 05/31/17 11:11 1 APPLN Objective Vital Signs Date Time Temp Pulse Resp B/P (MAP) Pulse Ox O2 Delivery O2 Flow Rate FiO2 06/02/17 08:00 Room Air 06/02/17 07:37 36.8 53 18 114/66 (82) 96 Room Air 06/02/17 00:09 36.7 89 20 116/71 (86) 96 Room Air 06/02/17 00:00 Room Air 06/01/17 16:00 97 Room Air 06/01/17 15:43 37.1 97 16 113/67 (82) 97 Room Air Physical Exam General Appearance: WD/WN, no apparent distress Eyes: normal inspection, EOMI, sclerae normal ENT: normal ENT inspection, hearing grossly normal, pharynx normal Neck: supple, no adenopathy, no JVD, trachea midline Respiratory/Chest: chest non-tender, lungs clear, normal breath sounds, no respiratory distress, no accessory muscle use Cardiovascular: regular rate, rhythm, no edema, no gallop, no JVD, no murmur Abdomen: normal bowel sounds, non tender, soft, no organomegaly Extremities: normal range of motion, non-tender, normal inspection, no pedal edema, no calf tenderness, pelvis stable Neurologic/Psychiatric: sustainability coordinator II-XII nml as tested, no motor/sensory deficits, alert, normal mood/affect, oriented x 3 Skin: normal color, warm/dry, no rash Laboratory Results Last 24 Hours Test 06/02/17 05:45 Sodium Level 141 mmol/L Potassium Level 4.3 mmol/L Chloride Level 106 mmol/L Carbon Dioxide Level 31 mmol/L Anion Gap 4.0 mmol/L Blood Urea Nitrogen 18 mg/dl Creatinine 1.44 mg/dl Est Creatinine Clear Calc Drug Dose 33.8 ml/min Estimated GFR () 51.7 Estimated GFR (Non- 44.6 BUN/Creatinine Ratio 12.2 Random Glucose 82 mg/dl Calcium Level 7.9 mg/dl Ionized Calcium 1.04 mmol/l Albumin 3.0 gm/dl Parathyroid Hormone (Intact) 64.9 pg/mL Assessment and Plan - Hypocalcemia due to chemotherapy continue oral supplementations daily continue Calcium Gluconate IV daily based on sliding scale, 4gm again today discussed with Dr. Roland PTH normal today albumin low at 3.0 so corrected Ca is 8.8 today ionized Ca is 1.02 - Depression: due to being hospitalized, his continue Remeron that was started last admission continues to go outside daily - Hypomagnesemia: continue mag oxide
[2017-06-02] MEDS: TAMSULOSIN HCL 0.4 MG CAP PO SCH (21:15)
[2017-06-02] MEDS: RANITIDINE HCL 150 MG TAB PO SCH (21:15)
[2017-06-02] MEDS: MIRTAZAPINE TAB 15 MG TAB PO SCH (21:17)
[2017-06-02 23:40] VITALS: BP 110/66; PULSE 91; TEMP 36.8; O2SAT 96
[2017-06-03 06:21] LABS: ALBUMIN 2.8 gm/dl (3.4-5.0); CALCIUM 8.4 mg/dl (8.5-10.1); CREATININE 1.44 mg/dl (0.60-1.40); PHOSPHORUS 3.3 mg/dl (2.5-4.9); POTASSIUM 4.2 mmol/L (3.5-5.1)
[2017-06-03] MEDS: CALCIUM CARBONATE 500 MG CHEWABLE PO SCH ×5 (06:44→23:17)
[2017-06-03 07:14] VITALS: BP 130/69; PULSE 98; TEMP 37; O2SAT 95
[2017-06-03] MEDS: MAGNESIUM OXIDE 400 MG TAB PO SCH ×2 (08:04→20:41)
[2017-06-03] MEDS: DOCUSATE SODIUM 100 MG CAP PO SCH ×2 (08:05→20:40)
[2017-06-03] MEDS: HYDROCHLOROTHIAZIDE 25 MG TAB PO SCH (08:05)
[2017-06-03] MEDS: POT PHOSPHATE MONOBASIC W/ SOD TAB PO SCH ×4 (08:05→20:39)
[2017-06-03] MEDS: CALCIUM CARBONATE 1250MG TAB PO SCH ×4 (08:06→20:40)
[2017-06-03] MEDS: CALCITRIOL 0.5 MCG CAP PO SCH (08:08)
[2017-06-03] MEDS: PANTOprazole SOD 40 MG TAB PO SCH (08:09)
[2017-06-03] MEDS ORDERED: CALCIUM GLUCONATE IV ONE (10:00)
[2017-06-03] MEDS ORDERED: SODIUM CHLORIDE 0.9% IV ONE (10:00)
--- NOTE | 2017-06-03 14:26 | Progress Note ---
Subjective Date of Service: Jun 03, 2017. Subjective Pt evaluation today including: conversation w/ patient, conversation w/ family (son at the bedside), physical exam, lab review, review of inpatient medication list Pain: no pain PO Intake: adequate Voiding: bey catheter in place patient doing well, pleasant reviewed labs, ionized Ca 1.06 calcium 8.4, corrected would be above 9 son wonders why he cannot get calcium at home will discuss with case management, maybe he could go to [facility] [place] if closer? Problem List Medical Problems: (1) Dehydration Status: Acute (2) Failure to thrive Status: Acute (3) Hypomagnesemia Status: Acute (4) UTI (urinary tract infection) Status: Acute (5) Vomiting Status: Acute Review of Systems All Other Systems: Reviewed and Negative Medications Current Inpatient Medications Medications (Trade) Dose Ordered Sig/Jonathan Route Start Time Stop Time Status Last Admin Dose Admin Acetaminophen (Tylenol Tab) 650 mg Q4H PRN PO 05/30/17 15:15 06/29/17 15:14 Polyethylene (Miralax Powder Packet) 17 gm DAILY PRN PO 05/30/17 15:15 06/29/17 15:14 Ondansetron HCl (Zofran Inj) 4 mg Q6H PRN IV 05/30/17 15:15 06/29/17 15:14 Calcitriol (Rocaltrol Cap) 10 mcg QAM PO 05/31/17 09:00 06/30/17 08:59 06/03/17 08:08 10 MCG Calcium Carbonate (oS-Randy 500 TAB) 3,750 mg QID PO 05/30/17 17:00 06/29/17 16:59 06/03/17 12:54 3,750 MG Calcium Carbonate (Tums Chew Tab) 2,000 mg 5XDQ4H PO 05/30/17 19:00 06/29/17 18:59 06/03/17 12:57 2,000 MG Docusate Sodium (coLACE CAP) 100 mg BID PO 05/30/17 21:00 06/29/17 20:59 06/03/17 08:05 100 MG Hydrochlorothiazide (Hydrochlorothiazide Tab) 25 mg QAM PO 05/31/17 09:00 06/30/17 08:59 06/03/17 08:05 25 MG Magnesium Oxide (Mag-Ox Tab) 400 mg BID PO 05/30/17 21:00 06/29/17 20:59 06/03/17 08:04 400 MG Mirtazapine (Remeron Tab) 15 mg HS PO 05/30/17 21:00 06/29/17 20:59 06/02/17 21:17 15 MG Potassium/ Phosphorus/Sodium (Phospha 250 Neutral 155-852-130 Mg) 2 tab QID PO 05/30/17 17:00 06/29/17 16:59 06/03/17 12:54 2 TAB Tamsulosin HCl (Flomax Cap) 0.8 mg HS PO 05/30/17 21:00 06/29/17 20:59 06/02/17 21:15 0.8 MG Pantoprazole Sodium (Protonix Tab) 40 mg QAM PO 05/31/17 09:00 06/30/17 08:59 06/03/17 08:09 40 MG Ranitidine HCl (zANTac TAB) 300 mg HS PO 05/30/17 21:00 06/29/17 20:59 06/02/17 21:15 300 MG Heparin Sodium (Porcine) (Heparin 10 Unit/ ml 5 ml Flush) 5 ml PRN PRN FLUSH 05/30/17 16:45 06/29/17 16:44 06/03/17 05:39 5 ML Benzocaine (Orajel 20% Oral Gel) 1 appln QID PRN MT 05/31/17 10:15 06/30/17 10:14 05/31/17 11:11 1 APPLN Objective Vital Signs Date Time Temp Pulse Resp B/P (MAP) Pulse Ox O2 Delivery O2 Flow Rate FiO2 06/03/17 07:44 Room Air 06/03/17 07:14 37.0 98 18 130/69 (89) 95 Room Air 06/03/17 00:00 Room Air 06/02/17 23:40 36.8 91 18 110/66 (81) 96 Room Air 06/02/17 20:00 Room Air 06/02/17 16:00 Room Air 06/02/17 15:37 37.4 89 18 114/72 (86) 96 Room Air Physical Exam General Appearance: WD/WN, no apparent distress Respiratory/Chest: chest non-tender, lungs clear, normal breath sounds, no respiratory distress, no accessory muscle use Cardiovascular: regular rate, rhythm, no edema, no gallop, no JVD, no murmur Abdomen: normal bowel sounds, non tender, soft, no organomegaly Extremities: normal range of motion, non-tender, normal inspection, no pedal edema, no calf tenderness Neurologic/Psychiatric: slab lifting engineer II-XII nml as tested, no motor/sensory deficits, alert, normal mood/affect, oriented x 3 Laboratory Results Last 24 Hours Test 06/03/17 05:43 Sodium Level 141 mmol/L Potassium Level 4.2 mmol/L Chloride Level 107 mmol/L Carbon Dioxide Level 29 mmol/L Anion Gap 5.0 mmol/L Blood Urea Nitrogen 24 mg/dl Creatinine 1.44 mg/dl Est Creatinine Clear Calc Drug Dose 33.8 ml/min Estimated GFR () 51.7 Estimated GFR (Non- 44.6 BUN/Creatinine Ratio 16.3 Random Glucose 90 mg/dl Calcium Level 8.4 mg/dl Ionized Calcium 1.06 mmol/l Phosphorus Level 3.3 mg/dl Magnesium Level 1.9 mg/dl Albumin 2.8 gm/dl Assessment and Plan - Hypocalcemia due to chemotherapy continue oral supplementations daily continue Calcium Gluconate IV daily based on sliding scale, 3gm today PTH normal 06/02 albumin low at 2.8 so corrected Ca is 9.2 today ionized Ca is 1.06, low - Depression: due to being hospitalized, misses his continue Remeron that was started last admission continues to go outside daily - Hypomagnesemia: continue mag oxide discussed with son today, wonders about plan for going home? perhaps he could get infusion at [facility] the calcium only taking 20 minutes to infuse will consult nephrology to see tomorrow, get their input for possible outpatient management
[2017-06-03 16:11] VITALS: BP 129/56; PULSE 105; TEMP 37; O2SAT 94
[2017-06-03] MEDS: RANITIDINE HCL 150 MG TAB PO SCH (20:40)
[2017-06-03] MEDS: MIRTAZAPINE TAB 15 MG TAB PO SCH (20:41)
[2017-06-03] MEDS: TAMSULOSIN HCL 0.4 MG CAP PO SCH (20:42)
[2017-06-03 23:37] VITALS: BP 129/56; PULSE 105; TEMP 37; O2SAT 94
[2017-06-04] MEDS: CALCIUM CARBONATE 500 MG CHEWABLE PO SCH ×5 (06:41→22:36)
[2017-06-04 07:21] VITALS: BP 103/61; PULSE 64; TEMP 36.6; O2SAT 95
[2017-06-04] MEDS: DOCUSATE SODIUM 100 MG CAP PO SCH ×2 (07:50→21:00)
[2017-06-04] MEDS: POT PHOSPHATE MONOBASIC W/ SOD TAB PO SCH ×4 (07:50→21:00)
[2017-06-04] MEDS: HYDROCHLOROTHIAZIDE 25 MG TAB PO SCH (07:51)
[2017-06-04] MEDS: MAGNESIUM OXIDE 400 MG TAB PO SCH ×2 (07:51→21:01)
[2017-06-04] MEDS: PANTOprazole SOD 40 MG TAB PO SCH (07:51)
[2017-06-04] MEDS: CALCIUM CARBONATE 1250MG TAB PO SCH ×4 (07:51→21:00)
[2017-06-04] MEDS: CALCITRIOL 0.5 MCG CAP PO SCH (07:52)
[2017-06-04 08:00] VITALS: O2SAT 95
[2017-06-04 09:56] LABS: CALCIUM 8.1 mg/dl (8.5-10.1); CREATININE 1.56 mg/dl (0.60-1.40); POTASSIUM 3.9 mmol/L (3.5-5.1)
[2017-06-04] MEDS ORDERED: NURSING VERBAL MED ORDER ONE (11:00)
[2017-06-04] MEDS ORDERED: CALCIUM GLUCONATE 10% 4,000 MG in SODIUM CHLORIDE 0.9% 100ML 100 ML IV ONE (11:15)
--- NOTE | 2017-06-04 13:26 | Hospitalist Progress Note ---
Hospitalist Progress Note Date of Service Jun 04, 2017. Subjective Pt evaluation today including: conversation w/ patient, physical exam, lab review, review of inpatient medication list Voiding: bey catheter in place Patient resting in bed. Feeling well. Eating and drinking OK. Continues to ambulate. Going out to [employer] daily- enjoys this. Discussed possible outpatient/MTU- in agreement. Patient denies any fever, chills, sweats, lightheadedness, dizziness, vision changes, CP, palpitations, edema, SOB, wheezing, cough, abdominal pain, nausea, vomiting, diarrhea, urinary symptoms, melena, numbness/tingling, weakness, muscle/joint pain, anxiety/depression, active bleeding, or new skin discoloration/changes. Medications Current Inpatient Medications Medications (Trade) Dose Ordered Sig/Jonathan Route Start Time Stop Time Status Last Admin Dose Admin Acetaminophen (Tylenol Tab) 650 mg Q4H PRN PO 05/30/17 15:15 06/29/17 15:14 Polyethylene (Miralax Powder Packet) 17 gm DAILY PRN PO 05/30/17 15:15 06/29/17 15:14 Ondansetron HCl (Zofran Inj) 4 mg Q6H PRN IV 05/30/17 15:15 06/29/17 15:14 Calcitriol (Rocaltrol Cap) 10 mcg QAM PO 05/31/17 09:00 06/30/17 08:59 06/04/17 07:52 10 MCG Calcium Carbonate (oS-Randy 500 TAB) 3,750 mg QID PO 05/30/17 17:00 06/29/17 16:59 06/04/17 12:26 3,750 MG Calcium Carbonate (Tums Chew Tab) 2,000 mg 5XDQ4H PO 05/30/17 19:00 06/29/17 18:59 06/04/17 11:28 2,000 MG Docusate Sodium (coLACE CAP) 100 mg BID PO 05/30/17 21:00 06/29/17 20:59 06/04/17 07:50 100 MG Hydrochlorothiazide (Hydrochlorothiazide Tab) 25 mg QAM PO 05/31/17 09:00 06/30/17 08:59 06/04/17 07:51 25 MG Magnesium Oxide (Mag-Ox Tab) 400 mg BID PO 05/30/17 21:00 06/29/17 20:59 06/04/17 07:51 400 MG Mirtazapine (Remeron Tab) 15 mg HS PO 05/30/17 21:00 06/29/17 20:59 06/03/17 20:41 15 MG Potassium/ Phosphorus/Sodium (Phospha 250 Neutral 155-852-130 Mg) 2 tab QID PO 05/30/17 17:00 06/29/17 16:59 06/04/17 12:26 2 TAB Tamsulosin HCl (Flomax Cap) 0.8 mg HS PO 05/30/17 21:00 06/29/17 20:59 06/03/17 20:42 0.8 MG Pantoprazole Sodium (Protonix Tab) 40 mg QAM PO 05/31/17 09:00 06/30/17 08:59 06/04/17 07:51 40 MG Ranitidine HCl (zANTac TAB) 300 mg HS PO 05/30/17 21:00 06/29/17 20:59 06/03/17 20:40 300 MG Heparin Sodium (Porcine) (Heparin 10 Unit/ ml 5 ml Flush) 5 ml PRN PRN FLUSH 05/30/17 16:45 06/29/17 16:44 06/04/17 12:25 5 ML Benzocaine (Orajel 20% Oral Gel) 1 appln QID PRN MT 05/31/17 10:15 06/30/17 10:14 05/31/17 11:11 1 APPLN Objective Vital Signs Date Time Temp Pulse Resp B/P (MAP) Pulse Ox O2 Delivery O2 Flow Rate FiO2 06/04/17 08:00 95 Room Air 06/04/17 07:21 36.6 64 18 103/61 (75) 95 Room Air 06/04/17 00:00 Room Air 06/03/17 23:37 37.0 105 16 129/56 (80) 94 Room Air 06/03/17 20:00 Room Air 06/03/17 16:11 37.0 105 18 129/56 (80) 94 Room Air 06/03/17 16:00 Room Air Physical Exam General Appearance: no apparent distress Eyes: normal inspection, PERRL ENT: hearing grossly normal Neck: supple Respiratory/Chest: lungs clear, no respiratory distress, no accessory muscle use Cardiovascular: regular rate, rhythm Abdomen: normal bowel sounds, non tender, soft Extremities: no pedal edema, no calf tenderness Neurologic/Psychiatric: alert, normal mood/affect, oriented x 3 Skin: normal color, warm/dry, no rash Laboratory Results Last 24 Hours Test 06/04/17 06:00 06/04/17 09:21 Ionized Calcium 1.03 mmol/l Albumin 2.9 gm/dl Sodium Level 139 mmol/L Potassium Level 3.9 mmol/L Chloride Level 107 mmol/L Carbon Dioxide Level 24 mmol/L Anion Gap 8.0 mmol/L Blood Urea Nitrogen 25 mg/dl Creatinine 1.56 mg/dl Est Creatinine Clear Calc Drug Dose 31.2 ml/min Estimated GFR () 46.9 Estimated GFR (Non- 40.5 BUN/Creatinine Ratio 16.0 Random Glucose 167 mg/dl Calcium Level 8.1 mg/dl Magnesium Level 1.8 mg/dl Assessment and Plan Mr. Greene is an 81 year old man with a history of prostate cancer and osteoblastic mets that presented with fatigue and found to have severe hypocalcemia thought secondary to his Denosumab 03/02/2017 through 05/29/17. PT represents for hypocalcemia again. Hypocalcemia secondary to chemotherapy (Denosumab): - Admit to med/surg - HCTZ 25 mg daily - Follow daily Ca level- 8.1 today, ionized calcium, albumin - PTH WNL - Continue Calcitrol, Tums, Calcium carbonate - IV Calcium gluconate sliding scale: -- Below 8, give 4 grams of calcium gluconate IV and call MD -- If 8-8.5, give 4 grams of calcium IV -- If 8.6-9, give 2 grams of calcium gluconate IV -- If 9.1-9.5, give 1 gram of calcium gluconate IV -- If > 9.6, do not give any calcium - Discussed w/ nephrology- remain off IV Calcium for 3 days (06/05, 06/06, and ) to watch response to help determine if MTU f/u appropriate Hypophosphatemia- STABLE: Continue Phosphate supplement 2 tabs QID Hypomagnesemia- STABLE: Continue Mag-Ox 400 mg BID 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 Gonzales: Continue Flomax Seborrheic dermatitis: Completed 14 day course of Desonide for face Aphthous ulceration oral mucosa: Supportive care, Orajel QID PRN for pain Depression, insomnia- STABLE: Continue Mirtazapine HS GI prophylaxis: Zantac + Protonix- resume Prilosec at discharge DVT prophylaxis: Ambulation Code status: LEVEL V, DNR Disposition: Discharge uncertain at this time- CM and PT/OT following
--- NOTE | 2017-06-04 15:39 | Nephrology Consultation ---
Nephrology Consultation Date & Providers Date of Consultation: Jun 04, 2017. Primary Care Provider: No Doctor, Assigned Referring Provider: Reason for Consultation Hypocalcemia History of Present Illness Mr. Greene is an 81-year-old year-old male who presented to [facility] initially on March 15 2017 with weakness, shaking, vomiting and emesis. Symptoms started approximately 3 days prior to presentation. Evaluation revealed severe hypocalcemia and QTc prolongation. Serum calcium prior was ~8.5. Serum calcium on presentation to the hospital today was 5.0 ( corrected for albumin 3.0 = 5.8). 2 grams of IV calcium gluconate were administered. EKG documented QTc prolongation at 522. Medical history is notable for metastatic prostate cancer with diffuse osseous metastatic disease. Mr. Greene presented to the nephrology clinic at [facility] in early February 2016. He was evaluated by Dr. Cifuentes for acute renal insufficiency. US revealed bilateral hydronephrosis and an enlarged prostate. Berkowitz catheter was placed and the patient was seen by Dr. Gonzales in the urology clinic. Biopsy demonstrated [place] 4+4 prostate adenocarcinoma with a PSA of 130. Bone scan confirmed diffuse osseous metastasis. Casodex was started and Mr. Greene had follow up in the hematology clinic with Dr. Reynolds to start Lupron. Denosumab was administered in the hematology clinic. Within 24 hours of the infusion, symptoms started. Renal function had normalized prior to Denosumab infusion. David denies any recent muscle spasms or tetany. Appetite is fair. He denies significant pain. He denies any chest pain, palpitations. David was admitted to [facility] from March 15-May 29, requiring IV calcium gluconate for persistent hypocalcemia. He was discharged with PICC in place and plan to attempt to coordinate additional IV infusions as an outpatient [facility]. Unfortunately, serum calcium continues to fall rapidly and care could not be appropriately coordinated. David was readmitted on May 30. David states that at this time, his outlook remains good despite his prolonged hospitalization. Past Medical/Surgical History Medical: Metastatic prostate cancer BPH History of JONATHAN due to urinary retention Hypertension Surgical: Diltation of Schatzki's ring Prostate biopsy Hernia repair Allergies Coded Allergies: No Known Allergies (Unverified , 03/15/17) Inpatient Medications Current Inpatient Medications Medications (Trade) Dose Ordered Sig/Jonathan Route Start Time Stop Time Status Last Admin Dose Admin Acetaminophen (Tylenol Tab) 650 mg Q4H PRN PO 05/30/17 15:15 06/29/17 15:14 Polyethylene (Miralax Powder Packet) 17 gm DAILY PRN PO 05/30/17 15:15 06/29/17 15:14 Ondansetron HCl (Zofran Inj) 4 mg Q6H PRN IV 05/30/17 15:15 06/29/17 15:14 Calcitriol (Rocaltrol Cap) 10 mcg QAM PO 05/31/17 09:00 06/30/17 08:59 06/04/17 07:52 10 MCG Calcium Carbonate (oS-Randy 500 TAB) 3,750 mg QID PO 05/30/17 17:00 06/29/17 16:59 06/04/17 12:26 3,750 MG Calcium Carbonate (Tums Chew Tab) 2,000 mg 5XDQ4H PO 05/30/17 19:00 06/29/17 18:59 06/04/17 11:28 2,000 MG Docusate Sodium (coLACE CAP) 100 mg BID PO 05/30/17 21:00 06/29/17 20:59 06/04/17 07:50 100 MG Hydrochlorothiazide (Hydrochlorothiazide Tab) 25 mg QAM PO 05/31/17 09:00 06/30/17 08:59 06/04/17 07:51 25 MG Magnesium Oxide (Mag-Ox Tab) 400 mg BID PO 05/30/17 21:00 06/29/17 20:59 06/04/17 07:51 400 MG Mirtazapine (Remeron Tab) 15 mg HS PO 05/30/17 21:00 06/29/17 20:59 06/03/17 20:41 15 MG Potassium/ Phosphorus/Sodium (Phospha 250 Neutral 155-852-130 Mg) 2 tab QID PO 05/30/17 17:00 06/29/17 16:59 06/04/17 12:26 2 TAB Tamsulosin HCl (Flomax Cap) 0.8 mg HS PO 05/30/17 21:00 06/29/17 20:59 06/03/17 20:42 0.8 MG Pantoprazole Sodium (Protonix Tab) 40 mg QAM PO 05/31/17 09:00 06/30/17 08:59 06/04/17 07:51 40 MG Ranitidine HCl (zANTac TAB) 300 mg HS PO 05/30/17 21:00 06/29/17 20:59 06/03/17 20:40 300 MG Heparin Sodium (Porcine) (Heparin 10 Unit/ ml 5 ml Flush) 5 ml PRN PRN FLUSH 05/30/17 16:45 06/29/17 16:44 06/04/17 12:25 5 ML Benzocaine (Orajel 20% Oral Gel) 1 appln QID PRN MT 05/31/17 10:15 06/30/17 10:14 05/31/17 11:11 1 APPLN Social History Smoking Status: Former Smoker Alcohol Use: none Drug Use: none Marital Status: Housing Status: lives with family 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 Review of Systems A complete review of systems was performed. Pertinent positives are noted above. All other systems are negative. Physical Exam Date Time Temp Pulse Resp B/P (MAP) Pulse Ox O2 Delivery O2 Flow Rate FiO2 06/04/17 08:00 95 Room Air 06/04/17 07:21 36.6 64 18 103/61 (75) 95 Room Air 06/04/17 00:00 Room Air 06/03/17 23:37 37.0 105 16 129/56 (80) 94 Room Air 06/03/17 20:00 Room Air 06/03/17 16:11 37.0 105 18 129/56 (80) 94 Room Air 06/03/17 16:00 Room Air General Appearance: no apparent distress, + thin Head: normocephalic, atraumatic Eyes: normal inspection, sclerae normal ENT: normal ENT inspection, pharynx normal Neck: supple, no JVD Respiratory/Chest: lungs clear, no respiratory distress, no accessory muscle use Cardiovascular: regular rate, rhythm, no gallop Abdomen/GI: non tender, soft Back: no CVA tenderness Extremities/Musculoskelatal: normal inspection, no pedal edema Neurologic/Psych: alert, normal mood/affect Laboratory Results Last 24 Hours Test 06/04/17 06:00 06/04/17 09:21 Ionized Calcium 1.03 mmol/l Albumin 2.9 gm/dl Sodium Level 139 mmol/L Potassium Level 3.9 mmol/L Chloride Level 107 mmol/L Carbon Dioxide Level 24 mmol/L Anion Gap 8.0 mmol/L Blood Urea Nitrogen 25 mg/dl Creatinine 1.56 mg/dl Est Creatinine Clear Calc Drug Dose 31.2 ml/min Estimated GFR () 46.9 Estimated GFR (Non- 40.5 BUN/Creatinine Ratio 16.0 Random Glucose 167 mg/dl Calcium Level 8.1 mg/dl Magnesium Level 1.8 mg/dl Impression (1) Hypocalcemia (2) Prostate cancer (3) Hypertension Mr. 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 He developed severe hypocalcemia following Denosumab infusion. Renal function is normal. Calcitriol is being provided. The patient is taking PO calcium in the form of TUMs and Oscal. Aggressive replacement with PO and IV calcium continues. The patient has had associated hypomagnesemia. He is tolerating oral magnesium replacement. He also remains on a phosphorus supplement. Recommendations -- Hold additional IV calcium with close monitoring of serum calcium level -- Additional IV calcium will only be provided when corrected calcium is less than 8.0 -- Will attempt to determine the appropriate frequency of monitoring and projected calcium requirement for outpatient management -- Continue Mg Oxide 400 mg BID -- Continue Calcitriol 10 mcg daily, OsCal 2500 QID, TUMS 2 grams TID -- Serum creatinine has risen to 1.5 (baseline 1.0): this is being closely monitored -- Will ask for urology consultation tomorrow regarding Berkowitz catheter
[2017-06-04 16:03] VITALS: BP 137/63; PULSE 94; TEMP 36.5; O2SAT 97
[2017-06-04] MEDS: MIRTAZAPINE TAB 15 MG TAB PO SCH (21:00)
[2017-06-04] MEDS: RANITIDINE HCL 150 MG TAB PO SCH (21:00)
[2017-06-04] MEDS: TAMSULOSIN HCL 0.4 MG CAP PO SCH (21:01)
[2017-06-04 23:45] VITALS: BP 123/58; PULSE 82; TEMP 36.6; O2SAT 97
[2017-06-05 07:24] VITALS: BP 124/72; PULSE 82; TEMP 37.1; O2SAT 95
[2017-06-05] MEDS: DOCUSATE SODIUM 100 MG CAP PO SCH ×2 (07:30→22:14)
[2017-06-05] MEDS: CALCIUM CARBONATE 500 MG CHEWABLE PO SCH ×5 (07:30→22:12)
[2017-06-05] MEDS: HYDROCHLOROTHIAZIDE 25 MG TAB PO SCH (07:31)
[2017-06-05] MEDS: PANTOprazole SOD 40 MG TAB PO SCH (07:32)
[2017-06-05] MEDS: CALCIUM CARBONATE 1250MG TAB PO SCH ×4 (07:32→22:14)
[2017-06-05] MEDS: MAGNESIUM OXIDE 400 MG TAB PO SCH ×2 (07:33→22:13)
[2017-06-05] MEDS: POT PHOSPHATE MONOBASIC W/ SOD TAB PO SCH ×4 (07:33→22:11)
[2017-06-05 08:37] LABS: ALBUMIN 3.4 gm/dl (3.4-5.0); CALCIUM 8.4 mg/dl (8.5-10.1); CREATININE 1.58 mg/dl (0.60-1.40); POTASSIUM 4.1 mmol/L (3.5-5.1)
[2017-06-05] MEDS: CALCITRIOL 0.5 MCG CAP PO SCH (08:46)
--- NOTE | 2017-06-05 09:27 | Nephrology Progress Note ---
Nephrology Progress Note Date of Service Jun 05, 2017. Chief Complaint Hypocalcemia Subjective No acute events overnight. David feels well this morning. No fevers or chills. No weakness, paraesthesias. No pain. Appetite is good. David would like to try to transition from Berkowitz to CIC. Review of Systems A complete review of systems was performed. Pertinent positives are noted above. All other systems are negative. Vital Signs Last 8 Hrs Date Time Temp Pulse Resp B/P (MAP) Pulse Ox O2 Delivery O2 Flow Rate FiO2 06/05/17 07:24 37.1 82 20 124/72 (89) 95 Room Air Last Recorded Weight Weight (Kilograms): 62.900 Physical Exam General Appearance: no apparent distress, + thin Head: normocephalic, atraumatic Eyes: normal inspection, sclerae normal ENT: normal ENT inspection, pharynx normal Neck: supple, no JVD Respiratory/Chest: lungs clear, no respiratory distress, no accessory muscle use Cardiovascular: regular rate, rhythm, no gallop, no murmur Abdomen/GI: non tender, soft Genitourinary - Male: + pertinent finding (Berkowitz draining clear urine) Extremities/Musculoskelatal: normal inspection, no pedal edema Neurologic/Psych: alert, oriented x 3 Social History Alcohol Use: none Drug Use: none Marital Status: Housing Status: lives with family 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 06/05/17 07:54 Test 06/05/17 07:54 Anion Gap 8.0 mmol/L (3-11) Est Creatinine Clear Calc Drug Dose 30.8 ml/min Estimated GFR () 46.2 Estimated GFR (Non- 39.9 BUN/Creatinine Ratio 14.6 (10-20) Calcium Level 8.4 mg/dl (8.5-10.1) Ionized Calcium 0.98 mmol/l (1.12-1.32) Magnesium Level 1.8 mg/dl (1.8-2.4) Albumin 3.4 gm/dl (3.4-5.0) Allergies Coded Allergies: No Known Allergies (Unverified , 03/15/17) Medications Current Inpatient Medications Medications (Trade) Dose Ordered Sig/Jonathan Route Start Time Stop Time Status Last Admin Dose Admin Acetaminophen (Tylenol Tab) 650 mg Q4H PRN PO 05/30/17 15:15 06/29/17 15:14 Polyethylene (Miralax Powder Packet) 17 gm DAILY PRN PO 05/30/17 15:15 06/29/17 15:14 Ondansetron HCl (Zofran Inj) 4 mg Q6H PRN IV 05/30/17 15:15 06/29/17 15:14 Calcitriol (Rocaltrol Cap) 10 mcg QAM PO 05/31/17 09:00 06/30/17 08:59 06/05/17 08:46 10 MCG Calcium Carbonate (oS-Randy 500 TAB) 3,750 mg QID PO 05/30/17 17:00 06/29/17 16:59 06/05/17 07:32 3,750 MG Calcium Carbonate (Tums Chew Tab) 2,000 mg 5XDQ4H PO 05/30/17 19:00 06/29/17 18:59 06/05/17 07:30 2,000 MG Docusate Sodium (coLACE CAP) 100 mg BID PO 05/30/17 21:00 06/29/17 20:59 06/05/17 07:30 100 MG Hydrochlorothiazide (Hydrochlorothiazide Tab) 25 mg QAM PO 05/31/17 09:00 06/30/17 08:59 06/05/17 07:31 25 MG Magnesium Oxide (Mag-Ox Tab) 400 mg BID PO 05/30/17 21:00 06/29/17 20:59 06/05/17 07:33 400 MG Mirtazapine (Remeron Tab) 15 mg HS PO 05/30/17 21:00 06/29/17 20:59 06/04/17 21:00 15 MG Potassium/ Phosphorus/Sodium (Phospha 250 Neutral 155-852-130 Mg) 2 tab QID PO 05/30/17 17:00 06/29/17 16:59 06/05/17 07:33 2 TAB Tamsulosin HCl (Flomax Cap) 0.8 mg HS PO 05/30/17 21:00 06/29/17 20:59 06/04/17 21:01 0.8 MG Pantoprazole Sodium (Protonix Tab) 40 mg QAM PO 05/31/17 09:00 06/30/17 08:59 06/05/17 07:32 40 MG Ranitidine HCl (zANTac TAB) 300 mg HS PO 05/30/17 21:00 06/29/17 20:59 06/04/17 21:00 300 MG Heparin Sodium (Porcine) (Heparin 10 Unit/ ml 5 ml Flush) 5 ml PRN PRN FLUSH 05/30/17 16:45 06/29/17 16:44 06/05/17 08:29 5 ML Benzocaine (Orajel 20% Oral Gel) 1 appln QID PRN MT 05/31/17 10:15 06/30/17 10:14 05/31/17 11:11 1 APPLN Impression (1) Hypocalcemia (2) Prostate cancer (3) Hypertension Mr. 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 He developed severe hypocalcemia following Denosumab infusion. Renal function is normal. Calcitriol is being provided. The patient is taking PO calcium in the form of TUMs and Oscal. Replacement with PO and IV calcium continues. The patient has had associated hypomagnesemia. He is tolerating oral magnesium replacement. Recommendations -- Plan to remove Berkowitz today for voiding trial. Plan was discussed with urology. Bladder scan q 8 hours. CIC PRN (>400 ml) -- Hold additional IV calcium with close monitoring of serum calcium level -- Additional IV calcium will only be provided when corrected calcium is less than 8.0 -- Will attempt to determine the appropriate frequency of monitoring and projected calcium requirement for outpatient management -- Continue Mg Oxide 400 mg BID -- Continue Calcitriol 10 mcg daily, OsCal 2500 QID, TUMS 2 grams TID -- Serum creatinine stable at 1.5; this appears to be new baseline
--- NOTE | 2017-06-05 12:22 | Hospitalist Progress Note ---
Hospitalist Progress Note Date of Service Jun 05, 2017. Subjective Pt evaluation today including: conversation w/ patient, physical exam, lab review, review of inpatient medication list Voiding: bey catheter in place Patient sitting in bedside chair. Feeling well. Eating and drinking OK. Ambulating by self. Bey to be removed today. Patient denies any fever, chills, sweats, lightheadedness, dizziness, vision changes, CP, palpitations, edema, SOB, wheezing, cough, abdominal pain, nausea, vomiting, diarrhea, urinary symptoms, melena, numbness/tingling, weakness, muscle/joint pain, anxiety/depression, active bleeding, or new skin discoloration/changes. Medications Current Inpatient Medications Medications (Trade) Dose Ordered Sig/Jonathan Route Start Time Stop Time Status Last Admin Dose Admin Acetaminophen (Tylenol Tab) 650 mg Q4H PRN PO 05/30/17 15:15 06/29/17 15:14 Polyethylene (Miralax Powder Packet) 17 gm DAILY PRN PO 05/30/17 15:15 06/29/17 15:14 Ondansetron HCl (Zofran Inj) 4 mg Q6H PRN IV 05/30/17 15:15 06/29/17 15:14 Calcitriol (Rocaltrol Cap) 10 mcg QAM PO 05/31/17 09:00 06/30/17 08:59 06/05/17 08:46 10 MCG Calcium Carbonate (oS-Randy 500 TAB) 3,750 mg QID PO 05/30/17 17:00 06/29/17 16:59 06/05/17 07:32 3,750 MG Calcium Carbonate (Tums Chew Tab) 2,000 mg 5XDQ4H PO 05/30/17 19:00 06/29/17 18:59 06/05/17 11:23 2,000 MG Docusate Sodium (coLACE CAP) 100 mg BID PO 05/30/17 21:00 06/29/17 20:59 06/05/17 07:30 100 MG Hydrochlorothiazide (Hydrochlorothiazide Tab) 25 mg QAM PO 05/31/17 09:00 06/30/17 08:59 06/05/17 07:31 25 MG Magnesium Oxide (Mag-Ox Tab) 400 mg BID PO 05/30/17 21:00 06/29/17 20:59 06/05/17 07:33 400 MG Mirtazapine (Remeron Tab) 15 mg HS PO 05/30/17 21:00 06/29/17 20:59 06/04/17 21:00 15 MG Potassium/ Phosphorus/Sodium (Phospha 250 Neutral 155-852-130 Mg) 2 tab QID PO 05/30/17 17:00 06/29/17 16:59 06/05/17 07:33 2 TAB Tamsulosin HCl (Flomax Cap) 0.8 mg HS PO 05/30/17 21:00 06/29/17 20:59 06/04/17 21:01 0.8 MG Pantoprazole Sodium (Protonix Tab) 40 mg QAM PO 05/31/17 09:00 06/30/17 08:59 06/05/17 07:32 40 MG Ranitidine HCl (zANTac TAB) 300 mg HS PO 05/30/17 21:00 06/29/17 20:59 06/04/17 21:00 300 MG Heparin Sodium (Porcine) (Heparin 10 Unit/ ml 5 ml Flush) 5 ml PRN PRN FLUSH 05/30/17 16:45 06/29/17 16:44 06/05/17 08:29 5 ML Benzocaine (Orajel 20% Oral Gel) 1 appln QID PRN MT 05/31/17 10:15 06/30/17 10:14 05/31/17 11:11 1 APPLN Objective Vital Signs Date Time Temp Pulse Resp B/P (MAP) Pulse Ox O2 Delivery O2 Flow Rate FiO2 06/05/17 08:00 Room Air 06/05/17 07:24 37.1 82 20 124/72 (89) 95 Room Air 06/05/17 00:00 Room Air 06/04/17 23:45 36.6 82 20 123/58 (79) 97 Room Air 06/04/17 16:03 36.5 94 18 137/63 (87) 97 Room Air 06/04/17 16:00 Room Air Physical Exam General Appearance: no apparent distress Eyes: normal inspection, PERRL ENT: hearing grossly normal Neck: supple Respiratory/Chest: lungs clear, no respiratory distress, no accessory muscle use Cardiovascular: regular rate, rhythm Abdomen: normal bowel sounds, non tender, soft Extremities: no pedal edema, no calf tenderness Neurologic/Psychiatric: alert, normal mood/affect, oriented x 3 Skin: normal color, warm/dry, no rash Laboratory Results Last 24 Hours Test 06/05/17 07:54 Sodium Level 141 mmol/L Potassium Level 4.1 mmol/L Chloride Level 107 mmol/L Carbon Dioxide Level 26 mmol/L Anion Gap 8.0 mmol/L Blood Urea Nitrogen 23 mg/dl Creatinine 1.58 mg/dl Est Creatinine Clear Calc Drug Dose 30.8 ml/min Estimated GFR () 46.2 Estimated GFR (Non- 39.9 BUN/Creatinine Ratio 14.6 Random Glucose 111 mg/dl Calcium Level 8.4 mg/dl Ionized Calcium 0.98 mmol/l Magnesium Level 1.8 mg/dl Albumin 3.4 gm/dl Assessment and Plan Mr. Greene is an 81 year old man with a history of prostate cancer and osteoblastic mets that presented with fatigue and found to have severe hypocalcemia thought secondary to his Denosumab 03/02/2017 through 05/29/17. PT represents for hypocalcemia again. Hypocalcemia secondary to chemotherapy (Denosumab): - Admit to med/surg - HCTZ 25 mg daily - Follow daily Ca level- 8.4 today, ionized calcium, albumin - PTH WNL - Continue Calcitrol, Tums, Calcium carbonate - IV Calcium gluconate sliding scale: -- Below 8, give 4 grams of calcium gluconate IV and call MD -- If 8-8.5, give 4 grams of calcium IV -- If 8.6-9, give 2 grams of calcium gluconate IV -- If 9.1-9.5, give 1 gram of calcium gluconate IV -- If > 9.6, do not give any calcium - Discussed w/ nephrology- remain off IV Calcium for 3 days (06/05, 06/06, and ) to watch response to help determine if MTU f/u appropriate, keep corrected Ca above 8.0 CKD stage III- 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 Gonzales: - Continue Flomax - Bladder scan q8 hrs, CIC PRN (>400 ml) Seborrheic dermatitis: Completed 14 day course of Desonide for face Aphthous ulceration oral mucosa: Supportive care, Orajel QID PRN for pain Depression, insomnia- STABLE: Continue Mirtazapine HS GI prophylaxis: Zantac + Protonix- resume Prilosec at discharge DVT prophylaxis: Ambulation Code status: LEVEL V, DNR Disposition: Discharge uncertain at this time- CM and PT/OT following
[2017-06-05] MEDS ORDERED: LIDOCAINE HCL 2% JELLY 30 ML TUBE EXT ONE (14:29)
[2017-06-05] MEDS ORDERED: NURSING DECISION MEDICATION ORDER SCH (14:30)
[2017-06-05 15:10] VITALS: BP 116/69; PULSE 93; TEMP 36.8; O2SAT 98
[2017-06-05] MEDS ORDERED: LIDOCAINE 2% JELLY 5 ML TUBE EXT PRN (15:15)
[2017-06-05] MEDS: TAMSULOSIN HCL 0.4 MG CAP PO SCH (22:12)
[2017-06-05] MEDS: MIRTAZAPINE TAB 15 MG TAB PO SCH (22:13)
[2017-06-05] MEDS: RANITIDINE HCL 150 MG TAB PO SCH (22:14)
[2017-06-05 23:52] VITALS: BP 113/68; PULSE 88; TEMP 37; O2SAT 94
[2017-06-06] MEDS: CALCIUM CARBONATE 500 MG CHEWABLE PO SCH ×5 (06:01→21:09)
[2017-06-06 07:22] VITALS: BP 90/52; PULSE 89; TEMP 36.6; O2SAT 93
[2017-06-06] MEDS: PANTOprazole SOD 40 MG TAB PO SCH (07:43)
[2017-06-06] MEDS: CALCIUM CARBONATE 1250MG TAB PO SCH ×4 (07:43→21:09)
[2017-06-06] MEDS: POT PHOSPHATE MONOBASIC W/ SOD TAB PO SCH ×4 (07:44→21:10)
[2017-06-06] MEDS: HYDROCHLOROTHIAZIDE 25 MG TAB PO SCH (07:44)
[2017-06-06] MEDS: CALCITRIOL 0.5 MCG CAP PO SCH (07:44)
[2017-06-06] MEDS: MAGNESIUM OXIDE 400 MG TAB PO SCH ×2 (07:44→21:10)
[2017-06-06] MEDS: DOCUSATE SODIUM 100 MG CAP PO SCH ×2 (07:44→21:09)
[2017-06-06 08:46] VITALS: BP 120/70
[2017-06-06 08:47] LABS: ALBUMIN 3.4 gm/dl (3.4-5.0); CALCIUM 8.4 mg/dl (8.5-10.1); CREATININE 1.52 mg/dl (0.60-1.40); PHOSPHORUS 2.6 mg/dl (2.5-4.9)
--- NOTE | 2017-06-06 09:59 | Nephrology Progress Note ---
Nephrology Progress Note Date of Service Jun 06, 2017. Chief Complaint Hypocalcemia Subjective No acute events overnight. David feels well this morning. No complaints. Urinary retention noted since Berkowitz removed. Requiring straight cath q 6 hours. David has been hesitant to cath himself. He expressed some anxiety regarding the possibility of going home. Review of Systems A complete review of systems was performed. Pertinent positives are noted above. All other systems are negative. Vital Signs Last 8 Hrs Date Time Temp Pulse Resp B/P (MAP) Pulse Ox O2 Delivery O2 Flow Rate FiO2 06/06/17 08:46 120/70 (87) 06/06/17 08:00 Room Air 06/06/17 07:22 36.6 89 20 90/52 (65) 93 Room Air I & O 24-Hour Column 06/07/17 07:59 Output Total 0 ml Balance 0 ml Last Recorded Weight Weight (Kilograms): 62.900 Physical Exam General Appearance: no apparent distress, + thin Head: normocephalic, atraumatic Eyes: normal inspection, sclerae normal ENT: normal ENT inspection, pharynx normal Neck: supple, no JVD Respiratory/Chest: lungs clear, no respiratory distress, no accessory muscle use Cardiovascular: regular rate, rhythm, no murmur Back: no CVA tenderness Abdomen/GI: non tender, soft Extremities/Musculoskelatal: normal inspection, no pedal edema Neurologic/Psych: alert, normal mood/affect Social History Alcohol Use: none Drug Use: none Marital Status: Housing Status: lives with family 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 06/06/17 08:14 Test 06/06/17 08:14 Anion Gap 6.0 mmol/L (3-11) Est Creatinine Clear Calc Drug Dose 32.0 ml/min Estimated GFR () 48.4 Estimated GFR (Non- 41.8 BUN/Creatinine Ratio 16.5 (10-20) Calcium Level 8.4 mg/dl (8.5-10.1) Ionized Calcium 1.01 mmol/l (1.12-1.32) Phosphorus Level 2.6 mg/dl (2.5-4.9) Magnesium Level 2.0 mg/dl (1.8-2.4) Albumin 3.4 gm/dl (3.4-5.0) Allergies Coded Allergies: No Known Allergies (Unverified , 2/1/18) Medications Current Inpatient Medications Medications (Trade) Dose Ordered Sig/Jonathan Route Start Time Stop Time Status Last Admin Dose Admin Acetaminophen (Tylenol Tab) 650 mg Q4H PRN PO 05/30/17 15:15 06/29/17 15:14 Polyethylene (Miralax Powder Packet) 17 gm DAILY PRN PO 05/30/17 15:15 06/29/17 15:14 Ondansetron HCl (Zofran Inj) 4 mg Q6H PRN IV 05/30/17 15:15 06/29/17 15:14 Calcitriol (Rocaltrol Cap) 10 mcg QAM PO 05/31/17 09:00 06/30/17 08:59 06/06/17 07:44 10 MCG Calcium Carbonate (oS-Randy 500 TAB) 3,750 mg QID PO 05/30/17 17:00 06/29/17 16:59 06/06/17 07:43 3,750 MG Calcium Carbonate (Tums Chew Tab) 2,000 mg 5XDQ4H PO 05/30/17 19:00 06/29/17 18:59 06/06/17 06:01 2,000 MG Docusate Sodium (coLACE CAP) 100 mg BID PO 05/30/17 21:00 06/29/17 20:59 06/06/17 07:44 100 MG Hydrochlorothiazide (Hydrochlorothiazide Tab) 25 mg QAM PO 05/31/17 09:00 06/30/17 08:59 06/06/17 07:44 25 MG Magnesium Oxide (Mag-Ox Tab) 400 mg BID PO 05/30/17 21:00 06/29/17 20:59 06/06/17 07:44 400 MG Mirtazapine (Remeron Tab) 15 mg HS PO 05/30/17 21:00 06/29/17 20:59 06/05/17 22:13 15 MG Potassium/ Phosphorus/Sodium (Phospha 250 Neutral 155-852-130 Mg) 2 tab QID PO 05/30/17 17:00 06/29/17 16:59 06/06/17 07:44 2 TAB Tamsulosin HCl (Flomax Cap) 0.8 mg HS PO 05/30/17 21:00 06/29/17 20:59 06/05/17 22:12 0.8 MG Pantoprazole Sodium (Protonix Tab) 40 mg QAM PO 05/31/17 09:00 06/30/17 08:59 06/06/17 07:43 40 MG Ranitidine HCl (zANTac TAB) 300 mg HS PO 05/30/17 21:00 06/29/17 20:59 06/05/17 22:14 300 MG Heparin Sodium (Porcine) (Heparin 10 Unit/ ml 5 ml Flush) 5 ml PRN PRN FLUSH 05/30/17 16:45 06/29/17 16:44 06/05/17 08:29 5 ML Benzocaine (Orajel 20% Oral Gel) 1 appln QID PRN MT 05/31/17 10:15 06/30/17 10:14 05/31/17 11:11 1 APPLN Lidocaine HCl (Xylocaine Jelly 2%) PRN PRN EXT 06/05/17 15:15 07/05/17 15:14 Impression (1) Hypocalcemia (2) Prostate cancer (3) Hypertension Mr. 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 He developed severe hypocalcemia following Denosumab infusion. Renal function is normal. Calcitriol is being provided. The patient is taking PO calcium in the form of TUMs and Oscal. Replacement with PO and IV calcium continues. The patient has had associated hypomagnesemia. He is tolerating oral magnesium replacement. He has urinary retention. Recommendations -- CIC q 6-8 hours PRN; discussed risks benefits of CIC vs chronic indwelling Berkowitz - Bill is weighing options -- Hold additional IV calcium with close monitoring of serum calcium level -- Additional IV calcium will only be provided when corrected calcium is less than 8.0 -- If calcium remains stable tomorrow, outpatient monitoring would be appropriate, if IV calcium can be coordinated at an infusion center as needed -- Continue Mg Oxide 400 mg BID -- Continue Calcitriol 10 mcg daily, OsCal 2500 QID, TUMS 2 grams TID -- Serum creatinine stable at 1.5; this appears to be new baseline
--- NOTE | 2017-06-06 12:11 | Hospitalist Progress Note ---
Hospitalist Progress Note Date of Service Jun 06, 2017. Subjective Pt evaluation today including: conversation w/ patient, physical exam, lab review, review of inpatient medication list Voiding: requires PRN straight cath Patient sitting in bedside chair. Eating lunch. Feeling well. Showered this AM. Ambulating around room. Berkowitz removed yesterday. Requiring q6hr straight cath. Patient feels uncomfortable at 200 ml and request PRN cath- nursing has been waiting until 400 cc. Discussed w/ patient- would like Berkowitz again. Feels very uncomfortable after a few hours and does not want to CIC at home. Patient denies any fever, chills, sweats, lightheadedness, dizziness, vision changes, CP, palpitations, edema, SOB, wheezing, cough, abdominal pain, nausea, vomiting, diarrhea, melena, numbness/tingling, weakness, muscle/joint pain, anxiety/depression, active bleeding, or new skin discoloration/changes. Medications Current Inpatient Medications Medications (Trade) Dose Ordered Sig/Jonathan Route Start Time Stop Time Status Last Admin Dose Admin Acetaminophen (Tylenol Tab) 650 mg Q4H PRN PO 05/30/17 15:15 06/29/17 15:14 Polyethylene (Miralax Powder Packet) 17 gm DAILY PRN PO 05/30/17 15:15 06/29/17 15:14 Ondansetron HCl (Zofran Inj) 4 mg Q6H PRN IV 05/30/17 15:15 06/29/17 15:14 Calcitriol (Rocaltrol Cap) 10 mcg QAM PO 05/31/17 09:00 06/30/17 08:59 06/06/17 07:44 10 MCG Calcium Carbonate (oS-Randy 500 TAB) 3,750 mg QID PO 05/30/17 17:00 06/29/17 16:59 06/06/17 07:43 3,750 MG Calcium Carbonate (Tums Chew Tab) 2,000 mg 5XDQ4H PO 05/30/17 19:00 06/29/17 18:59 06/06/17 10:32 2,000 MG Docusate Sodium (coLACE CAP) 100 mg BID PO 05/30/17 21:00 06/29/17 20:59 06/06/17 07:44 100 MG Hydrochlorothiazide (Hydrochlorothiazide Tab) 25 mg QAM PO 05/31/17 09:00 06/30/17 08:59 06/06/17 07:44 25 MG Magnesium Oxide (Mag-Ox Tab) 400 mg BID PO 05/30/17 21:00 06/29/17 20:59 06/06/17 07:44 400 MG Mirtazapine (Remeron Tab) 15 mg HS PO 05/30/17 21:00 06/29/17 20:59 06/05/17 22:13 15 MG Potassium/ Phosphorus/Sodium (Phospha 250 Neutral 155-852-130 Mg) 2 tab QID PO 05/30/17 17:00 06/29/17 16:59 06/06/17 07:44 2 TAB Tamsulosin HCl (Flomax Cap) 0.8 mg HS PO 05/30/17 21:00 06/29/17 20:59 06/05/17 22:12 0.8 MG Pantoprazole Sodium (Protonix Tab) 40 mg QAM PO 05/31/17 09:00 06/30/17 08:59 06/06/17 07:43 40 MG Ranitidine HCl (zANTac TAB) 300 mg HS PO 05/30/17 21:00 06/29/17 20:59 06/05/17 22:14 300 MG Heparin Sodium (Porcine) (Heparin 10 Unit/ ml 5 ml Flush) 5 ml PRN PRN FLUSH 05/30/17 16:45 06/29/17 16:44 06/05/17 08:29 5 ML Benzocaine (Orajel 20% Oral Gel) 1 appln QID PRN MT 05/31/17 10:15 06/30/17 10:14 05/31/17 11:11 1 APPLN Lidocaine HCl (Xylocaine Jelly 2%) PRN PRN EXT 06/05/17 15:15 07/05/17 15:14 Objective Vital Signs Date Time Temp Pulse Resp B/P (MAP) Pulse Ox O2 Delivery O2 Flow Rate FiO2 06/06/17 08:46 120/70 (87) 06/06/17 08:00 Room Air 06/06/17 07:22 36.6 89 20 90/52 (65) 93 Room Air 06/05/17 23:52 37.0 88 20 113/68 (83) 94 Room Air 06/05/17 23:35 Room Air 06/05/17 16:00 Room Air 06/05/17 15:10 36.8 93 18 116/69 (85) 98 Room Air Physical Exam General Appearance: no apparent distress Eyes: normal inspection, PERRL ENT: hearing grossly normal Neck: supple Respiratory/Chest: lungs clear, no respiratory distress, no accessory muscle use Cardiovascular: regular rate, rhythm Abdomen: normal bowel sounds, non tender, soft Extremities: no pedal edema, no calf tenderness Neurologic/Psychiatric: alert, normal mood/affect, oriented x 3 Skin: normal color, warm/dry, no rash Laboratory Results Last 24 Hours Test 06/06/17 08:14 Sodium Level 139 mmol/L Potassium Level 4.0 mmol/L Chloride Level 106 mmol/L Carbon Dioxide Level 27 mmol/L Anion Gap 6.0 mmol/L Blood Urea Nitrogen 25 mg/dl Creatinine 1.52 mg/dl Est Creatinine Clear Calc Drug Dose 32.0 ml/min Estimated GFR () 48.4 Estimated GFR (Non- 41.8 BUN/Creatinine Ratio 16.5 Random Glucose 123 mg/dl Calcium Level 8.4 mg/dl Ionized Calcium 1.01 mmol/l Phosphorus Level 2.6 mg/dl Magnesium Level 2.0 mg/dl Albumin 3.4 gm/dl Assessment and Plan Mr. Greene is an 81 year old man with a history of prostate cancer and osteoblastic mets that presented with fatigue and found to have severe hypocalcemia thought secondary to his Denosumab 03/02/2017 through 05/29/17. PT represents for hypocalcemia again. Hypocalcemia secondary to chemotherapy (Denosumab)- STABLE: - Admit to med/surg - HCTZ 25 mg daily - Follow daily Ca level- 8.4 today, ionized calcium, albumin - PTH WNL - Continue Calcitrol, Tums, Calcium carbonate - IV Calcium gluconate sliding scale: -- Below 8, give 4 grams of calcium gluconate IV and call MD -- If 8-8.5, give 4 grams of calcium IV -- If 8.6-9, give 2 grams of calcium gluconate IV -- If 9.1-9.5, give 1 gram of calcium gluconate IV -- If > 9.6, do not give any calcium - Discussed w/ nephrology- remain off IV Calcium for 3 days (06/05, 06/06, and ) to watch response to help determine if MTU f/u appropriate, keep corrected Ca above 8.0 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 Gonzales: - Continue Flomax - Bladder scan q8 hrs, CIC PRN (>400 ml)- patient requesting Berkowitz placed again Seborrheic dermatitis: Completed 14 day course of Desonide for face Aphthous ulceration oral mucosa: Supportive care, Orajel QID PRN for pain Depression, insomnia- STABLE: Continue Mirtazapine HS GI prophylaxis: Zantac + Protonix- resume Prilosec at discharge DVT prophylaxis: Ambulation Code status: LEVEL V, DNR Disposition: Discharge uncertain at this time- CM and PT/OT following - If calcium remains stable, nephrology OK with discharge and MTU f/u's if can be arranged.
[2017-06-06 15:53] VITALS: BP 106/64; PULSE 93; TEMP 37.1; O2SAT 96
[2017-06-06] MEDS: MIRTAZAPINE TAB 15 MG TAB PO SCH (21:10)
[2017-06-06] MEDS: RANITIDINE HCL 150 MG TAB PO SCH (21:10)
[2017-06-06] MEDS: TAMSULOSIN HCL 0.4 MG CAP PO SCH (21:11)
[2017-06-06 23:05] VITALS: BP 126/79; PULSE 84; TEMP 37.2; O2SAT 95
[2017-06-07] VITALS: O2SAT 95
[2017-06-07] MEDS: CALCIUM CARBONATE 500 MG CHEWABLE PO SCH ×5 (06:23→21:45)
[2017-06-07] MEDS: HYDROCHLOROTHIAZIDE 25 MG TAB PO SCH (08:00)
[2017-06-07] MEDS: POT PHOSPHATE MONOBASIC W/ SOD TAB PO SCH ×4 (08:00→21:39)
[2017-06-07] MEDS: CALCITRIOL 0.5 MCG CAP PO SCH (08:00)
[2017-06-07] MEDS: PANTOprazole SOD 40 MG TAB PO SCH (08:00)
[2017-06-07] MEDS: CALCIUM CARBONATE 1250MG TAB PO SCH ×4 (08:00→21:41)
[2017-06-07] MEDS: DOCUSATE SODIUM 100 MG CAP PO SCH ×2 (08:00→21:41)
[2017-06-07 08:01] VITALS: BP 128/74; PULSE 88; TEMP 36.8; O2SAT 97
[2017-06-07] MEDS: MAGNESIUM OXIDE 400 MG TAB PO SCH ×2 (08:01→21:40)
[2017-06-07 08:58] LABS: ALBUMIN 3.4 gm/dl (3.4-5.0); CALCIUM 8.5 mg/dl (8.5-10.1); CREATININE 1.5 mg/dl (0.60-1.40); POTASSIUM 3.9 mmol/L (3.5-5.1)
--- NOTE | 2017-06-07 11:05 | Nephrology Progress Note ---
Nephrology Progress Note Date of Service Jun 07, 2017. Chief Complaint Hypocalcemia Subjective No acute events overnight. No complaints this morning. David feels well. He is ambulating in the halls. Appetite is good. He denies pain. He denies weakness. He remains apprehensive about the idea of being discharged home due to the extent of time he has been in the hospital. Berkowitz was replaced yesterday at his request. He did not tolerate CIC well. Review of Systems A complete review of systems was performed. Pertinent positives are noted above. All other systems are negative. Vital Signs Last 8 Hrs Date Time Temp Pulse Resp B/P (MAP) Pulse Ox O2 Delivery O2 Flow Rate FiO2 06/07/17 08:01 36.8 88 16 128/74 (92) 97 Room Air 06/07/17 08:00 Room Air Last Recorded Weight Weight (Kilograms): 62.900 Physical Exam General Appearance: no apparent distress, + thin Head: normocephalic, atraumatic Eyes: normal inspection, sclerae normal ENT: normal ENT inspection, pharynx normal Neck: supple, no JVD Respiratory/Chest: lungs clear, no respiratory distress, no accessory muscle use Cardiovascular: regular rate, rhythm, no gallop Back: no CVA tenderness Abdomen/GI: non tender, soft Extremities/Musculoskelatal: normal inspection, no pedal edema Neurologic/Psych: alert, normal mood/affect Social History Alcohol Use: none Drug Use: none Marital Status: Housing Status: lives with family 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 06/07/17 08:02 Test 06/07/17 08:02 Anion Gap 7.0 mmol/L (3-11) Est Creatinine Clear Calc Drug Dose 32.5 ml/min Estimated GFR () 49.2 Estimated GFR (Non- 42.4 BUN/Creatinine Ratio 16.6 (10-20) Calcium Level 8.5 mg/dl (8.5-10.1) Ionized Calcium 1.02 mmol/l (1.12-1.32) Albumin 3.4 gm/dl (3.4-5.0) Allergies Coded Allergies: No Known Allergies (Unverified , 03/15/17) Medications Current Inpatient Medications Medications (Trade) Dose Ordered Sig/Jonathan Route Start Time Stop Time Status Last Admin Dose Admin Acetaminophen (Tylenol Tab) 650 mg Q4H PRN PO 4/18/18 15:15 06/29/17 15:14 Polyethylene (Miralax Powder Packet) 17 gm DAILY PRN PO 05/30/17 15:15 06/29/17 15:14 Ondansetron HCl (Zofran Inj) 4 mg Q6H PRN IV 05/30/17 15:15 06/29/17 15:14 Calcitriol (Rocaltrol Cap) 10 mcg QAM PO 05/31/17 09:00 06/30/17 08:59 06/07/17 08:00 10 MCG Calcium Carbonate (oS-Randy 500 TAB) 3,750 mg QID PO 05/30/17 17:00 06/29/17 16:59 06/07/17 08:00 3,750 MG Calcium Carbonate (Tums Chew Tab) 2,000 mg 5XDQ4H PO 05/30/17 19:00 06/29/17 18:59 06/07/17 10:37 2,000 MG Docusate Sodium (coLACE CAP) 100 mg BID PO 05/30/17 21:00 06/29/17 20:59 06/07/17 08:00 100 MG Hydrochlorothiazide (Hydrochlorothiazide Tab) 25 mg QAM PO 05/31/17 09:00 06/30/17 08:59 06/07/17 08:00 25 MG Magnesium Oxide (Mag-Ox Tab) 400 mg BID PO 05/30/17 21:00 06/29/17 20:59 06/07/17 08:01 400 MG Mirtazapine (Remeron Tab) 15 mg HS PO 05/30/17 21:00 06/29/17 20:59 06/06/17 21:10 15 MG Potassium/ Phosphorus/Sodium (Phospha 250 Neutral 155-852-130 Mg) 2 tab QID PO 05/30/17 17:00 06/29/17 16:59 06/07/17 08:00 2 TAB Tamsulosin HCl (Flomax Cap) 0.8 mg HS PO 05/30/17 21:00 06/29/17 20:59 06/06/17 21:11 0.8 MG Pantoprazole Sodium (Protonix Tab) 40 mg QAM PO 05/31/17 09:00 06/30/17 08:59 06/07/17 08:00 40 MG Ranitidine HCl (zANTac TAB) 300 mg HS PO 05/30/17 21:00 06/29/17 20:59 06/06/17 21:10 300 MG Heparin Sodium (Porcine) (Heparin 10 Unit/ ml 5 ml Flush) 5 ml PRN PRN FLUSH 05/30/17 16:45 06/29/17 16:44 06/07/17 08:07 5 ML Benzocaine (Orajel 20% Oral Gel) 1 appln QID PRN MT 05/31/17 10:15 06/30/17 10:14 05/31/17 11:11 1 APPLN Lidocaine HCl (Xylocaine Jelly 2%) PRN PRN EXT 06/05/17 15:15 07/05/17 15:14 Impression (1) Hypocalcemia (2) Prostate cancer (3) Hypertension Mr. 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 He developed severe hypocalcemia following Denosumab infusion. Renal function is normal. Calcitriol is being provided. The patient is taking PO calcium in the form of TUMs and Oscal. The patient has had associated hypomagnesemia. He is tolerating oral magnesium replacement. Calcium level appears to be stabilizing. He has urinary retention. Berkowitz was removed but he did not tolerate CIC. Berkowitz was replaced yesterday. Outpatient urology follow up to be scheduled Recommendations -- Berkowitz to gravity with outpatient urology follow up -- No need for additional IV calcium at this time -- If calcium remains stable tomorrow, outpatient monitoring would be appropriate, if IV calcium can be coordinated at an infusion center as needed -- Continue Mg Oxide 400 mg BID -- Continue Calcitriol 10 mcg daily, OsCal 2500 QID, TUMS 2 grams TID -- Serum creatinine stable at 1.5; this appears to be new baseline
--- NOTE | 2017-06-07 12:13 | Hospitalist Progress Note ---
Hospitalist Progress Note Date of Service Jun 07, 2017. Subjective Pt evaluation today including: conversation w/ patient, physical exam, lab review, review of inpatient medication list Voiding: bey catheter in place Patient sitting in bedside chair. Feeling well. Eating and drinking OK. Continues to ambulated throughout halls/room. Much happier that Bey was placed yesterday. Patient denies any fever, chills, sweats, lightheadedness, dizziness, vision changes, CP, palpitations, edema, SOB, wheezing, cough, abdominal pain, nausea, vomiting, diarrhea, urinary symptoms, melena, numbness/tingling, weakness, muscle/joint pain, anxiety/depression, active bleeding, or new skin discoloration/changes. Medications Current Inpatient Medications Medications (Trade) Dose Ordered Sig/Jonathan Route Start Time Stop Time Status Last Admin Dose Admin Acetaminophen (Tylenol Tab) 650 mg Q4H PRN PO 05/30/17 15:15 06/29/17 15:14 Polyethylene (Miralax Powder Packet) 17 gm DAILY PRN PO 05/30/17 15:15 06/29/17 15:14 Ondansetron HCl (Zofran Inj) 4 mg Q6H PRN IV 05/30/17 15:15 06/29/17 15:14 Calcitriol (Rocaltrol Cap) 10 mcg QAM PO 05/31/17 09:00 06/30/17 08:59 06/07/17 08:00 10 MCG Calcium Carbonate (oS-Randy 500 TAB) 3,750 mg QID PO 05/30/17 17:00 06/29/17 16:59 06/07/17 08:00 3,750 MG Calcium Carbonate (Tums Chew Tab) 2,000 mg 5XDQ4H PO 05/30/17 19:00 06/29/17 18:59 06/07/17 06:23 2,000 MG Docusate Sodium (coLACE CAP) 100 mg BID PO 05/30/17 21:00 06/29/17 20:59 06/07/17 08:00 100 MG Hydrochlorothiazide (Hydrochlorothiazide Tab) 25 mg QAM PO 05/31/17 09:00 06/30/17 08:59 06/07/17 08:00 25 MG Magnesium Oxide (Mag-Ox Tab) 400 mg BID PO 05/30/17 21:00 06/29/17 20:59 06/07/17 08:01 400 MG Mirtazapine (Remeron Tab) 15 mg HS PO 05/30/17 21:00 06/29/17 20:59 06/06/17 21:10 15 MG Potassium/ Phosphorus/Sodium (Phospha 250 Neutral 155-852-130 Mg) 2 tab QID PO 05/30/17 17:00 06/29/17 16:59 06/07/17 08:00 2 TAB Tamsulosin HCl (Flomax Cap) 0.8 mg HS PO 05/30/17 21:00 06/29/17 20:59 06/06/17 21:11 0.8 MG Pantoprazole Sodium (Protonix Tab) 40 mg QAM PO 05/31/17 09:00 06/30/17 08:59 06/07/17 08:00 40 MG Ranitidine HCl (zANTac TAB) 300 mg HS PO 05/30/17 21:00 06/29/17 20:59 06/06/17 21:10 300 MG Heparin Sodium (Porcine) (Heparin 10 Unit/ ml 5 ml Flush) 5 ml PRN PRN FLUSH 05/30/17 16:45 06/29/17 16:44 06/07/17 08:07 5 ML Benzocaine (Orajel 20% Oral Gel) 1 appln QID PRN MT 05/31/17 10:15 06/30/17 10:14 05/31/17 11:11 1 APPLN Lidocaine HCl (Xylocaine Jelly 2%) PRN PRN EXT 06/05/17 15:15 07/05/17 15:14 Objective Vital Signs Date Time Temp Pulse Resp B/P (MAP) Pulse Ox O2 Delivery O2 Flow Rate FiO2 06/07/17 08:01 36.8 88 16 128/74 (92) 97 Room Air 06/07/17 08:00 Room Air 06/07/17 00:00 95 Room Air 06/06/17 23:05 37.2 84 18 126/79 (95) 95 Room Air 06/06/17 16:00 Room Air 06/06/17 15:53 37.1 93 18 106/64 (78) 96 Room Air Physical Exam General Appearance: no apparent distress Eyes: normal inspection, PERRL ENT: TMs normal Neck: supple Respiratory/Chest: lungs clear, no respiratory distress, no accessory muscle use Cardiovascular: regular rate, rhythm Abdomen: normal bowel sounds, non tender, soft Extremities: no pedal edema, no calf tenderness Neurologic/Psychiatric: alert, normal mood/affect, oriented x 3 Skin: normal color, warm/dry, no rash Laboratory Results Last 24 Hours Test 06/07/17 08:02 Sodium Level 140 mmol/L Potassium Level 3.9 mmol/L Chloride Level 107 mmol/L Carbon Dioxide Level 26 mmol/L Anion Gap 7.0 mmol/L Blood Urea Nitrogen 25 mg/dl Creatinine 1.50 mg/dl Est Creatinine Clear Calc Drug Dose 32.5 ml/min Estimated GFR () 49.2 Estimated GFR (Non- 42.4 BUN/Creatinine Ratio 16.6 Random Glucose 133 mg/dl Calcium Level 8.5 mg/dl Ionized Calcium 1.02 mmol/l Albumin 3.4 gm/dl Assessment and Plan Mr. Greene is an 81 year old man with a history of prostate cancer and osteoblastic mets that presented with fatigue and found to have severe hypocalcemia thought secondary to his Denosumab 03/02/2017 through 05/29/17. PT represents for hypocalcemia again. Hypocalcemia secondary to chemotherapy (Denosumab)- STABLE: - Admit to med/surg - HCTZ 25 mg daily - Follow daily Ca level- 8.5 today, ionized calcium, albumin - PTH WNL - Continue Calcitrol, Tums, Calcium carbonate - IV Calcium gluconate sliding scale: -- Below 8, give 4 grams of calcium gluconate IV and call MD -- If 8-8.5, give 4 grams of calcium IV -- If 8.6-9, give 2 grams of calcium gluconate IV -- If 9.1-9.5, give 1 gram of calcium gluconate IV -- If > 9.6, do not give any calcium - Discussed w/ nephrology- remain off IV Calcium for 3 days (06/05, 06/06, and ) to watch response to help determine if MTU f/u appropriate, keep corrected Ca above 8.0 CKD stage III- 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 Gonzales: Continue Flomax Seborrheic dermatitis: Completed 14 day course of Desonide for face Aphthous ulceration oral mucosa: Supportive care, Orajel QID PRN for pain Depression, insomnia- STABLE: Continue Mirtazapine HS GI prophylaxis: Zantac + Protonix- resume Prilosec at discharge DVT prophylaxis: Ambulation Code status: LEVEL V, DNR Disposition: Discharge uncertain at this time- trying to arrange MTU f/u's- CM and PT/OT following
[2017-06-07 15:45] VITALS: BP 123/78; PULSE 74; TEMP 36.6; O2SAT 95
[2017-06-07] MEDS: TAMSULOSIN HCL 0.4 MG CAP PO SCH (21:40)
[2017-06-07] MEDS: MIRTAZAPINE TAB 15 MG TAB PO SCH (21:40)
[2017-06-07] MEDS: RANITIDINE HCL 150 MG TAB PO SCH (21:42)
[2017-06-07 22:31] VITALS: BP 110/64; PULSE 95; TEMP 36.6; O2SAT 96
[2017-06-08] VITALS: O2SAT 95
[2017-06-08] MEDS: CALCIUM CARBONATE 500 MG CHEWABLE PO SCH ×3 (06:29→16:52)
[2017-06-08 06:46] LABS: ALBUMIN 2.9 gm/dl (3.4-5.0); CALCIUM 8.2 mg/dl (8.5-10.1); CREATININE 1.42 mg/dl (0.60-1.40); POTASSIUM 3.9 mmol/L (3.5-5.1)
[2017-06-08 07:51] VITALS: BP 124/78; PULSE 84; TEMP 36.6; O2SAT 97
[2017-06-08] MEDS: CALCITRIOL 0.5 MCG CAP PO SCH (08:48)
[2017-06-08] MEDS: MAGNESIUM OXIDE 400 MG TAB PO SCH (08:48)
[2017-06-08] MEDS: DOCUSATE SODIUM 100 MG CAP PO SCH (08:49)
[2017-06-08] MEDS: POT PHOSPHATE MONOBASIC W/ SOD TAB PO SCH ×3 (08:49→16:53)
[2017-06-08] MEDS: CALCIUM CARBONATE 1250MG TAB PO SCH ×3 (08:49→16:53)
[2017-06-08] MEDS: HYDROCHLOROTHIAZIDE 25 MG TAB PO SCH (08:49)
[2017-06-08] MEDS: PANTOprazole SOD 40 MG TAB PO SCH (08:49)
--- NOTE | 2017-06-08 10:45 | Nephrology Progress Note ---
Nephrology Progress Note Date of Service Jun 08, 2017. Chief Complaint Hypocalcemia Subjective No acute events overnight. Michael feels well this morning. He is under the impression that he will be discharged home today. He has mixed feeling. Review of Systems A complete review of systems was performed. Pertinent positives are noted above. All other systems are negative. Vital Signs Last 8 Hrs Date Time Temp Pulse Resp B/P (MAP) Pulse Ox O2 Delivery O2 Flow Rate FiO2 06/08/17 08:00 Room Air 06/08/17 07:51 36.6 84 18 124/78 (93) 97 Room Air Last Recorded Weight Weight (Kilograms): 62.900 Physical Exam General Appearance: no apparent distress, + thin Head: normocephalic, atraumatic Eyes: normal inspection, sclerae normal ENT: normal ENT inspection, pharynx normal Neck: supple, no JVD Respiratory/Chest: lungs clear, no respiratory distress, no accessory muscle use Cardiovascular: regular rate, rhythm, no gallop, no murmur Abdomen/GI: non tender, soft Extremities/Musculoskelatal: normal inspection, no pedal edema Neurologic/Psych: alert, normal mood/affect Social History Alcohol Use: none Drug Use: none Marital Status: Housing Status: lives with family 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 06/08/17 05:35 Test 06/08/17 05:35 Anion Gap 4.0 mmol/L (3-11) Est Creatinine Clear Calc Drug Dose 34.3 ml/min Estimated GFR () 52.6 Estimated GFR (Non- 45.4 BUN/Creatinine Ratio 18.7 (10-20) Calcium Level 8.2 mg/dl (8.5-10.1) Ionized Calcium 1.05 mmol/l (1.12-1.32) Albumin 2.9 gm/dl (3.4-5.0) Allergies Coded Allergies: No Known Allergies (Unverified , 03/15/17) Medications Current Inpatient Medications Medications (Trade) Dose Ordered Sig/Jonathan Route Start Time Stop Time Status Last Admin Dose Admin Acetaminophen (Tylenol Tab) 650 mg Q4H PRN PO 05/30/17 15:15 06/29/17 15:14 Polyethylene (Miralax Powder Packet) 17 gm DAILY PRN PO 05/30/17 15:15 5/18/18 15:14 Ondansetron HCl (Zofran Inj) 4 mg Q6H PRN IV 05/30/17 15:15 06/29/17 15:14 Calcitriol (Rocaltrol Cap) 10 mcg QAM PO 05/31/17 09:00 06/30/17 08:59 06/08/17 08:48 10 MCG Calcium Carbonate (oS-Randy 500 TAB) 3,750 mg QID PO 05/30/17 17:00 06/29/17 16:59 06/08/17 08:49 3,750 MG Calcium Carbonate (Tums Chew Tab) 2,000 mg 5XDQ4H PO 05/30/17 19:00 06/29/17 18:59 06/08/17 08:48 2,000 MG Docusate Sodium (coLACE CAP) 100 mg BID PO 05/30/17 21:00 06/29/17 20:59 06/08/17 08:49 100 MG Hydrochlorothiazide (Hydrochlorothiazide Tab) 25 mg QAM PO 05/31/17 09:00 06/30/17 08:59 06/08/17 08:49 25 MG Magnesium Oxide (Mag-Ox Tab) 400 mg BID PO 05/30/17 21:00 06/29/17 20:59 06/08/17 08:48 400 MG Mirtazapine (Remeron Tab) 15 mg HS PO 05/30/17 21:00 06/29/17 20:59 06/07/17 21:40 15 MG Potassium/ Phosphorus/Sodium (Phospha 250 Neutral 155-852-130 Mg) 2 tab QID PO 05/30/17 17:00 06/29/17 16:59 06/08/17 08:49 2 TAB Tamsulosin HCl (Flomax Cap) 0.8 mg HS PO 05/30/17 21:00 06/29/17 20:59 06/07/17 21:40 0.8 MG Pantoprazole Sodium (Protonix Tab) 40 mg QAM PO 05/31/17 09:00 06/30/17 08:59 06/08/17 08:49 40 MG Ranitidine HCl (zANTac TAB) 300 mg HS PO 05/30/17 21:00 06/29/17 20:59 06/07/17 21:42 300 MG Heparin Sodium (Porcine) (Heparin 10 Unit/ ml 5 ml Flush) 5 ml PRN PRN FLUSH 05/30/17 16:45 06/29/17 16:44 06/07/17 08:07 5 ML Benzocaine (Orajel 20% Oral Gel) 1 appln QID PRN MT 05/31/17 10:15 06/30/17 10:14 05/31/17 11:11 1 APPLN Lidocaine HCl (Xylocaine Jelly 2%) PRN PRN EXT 06/05/17 15:15 07/05/17 15:14 Impression (1) Hypocalcemia (2) Prostate cancer (3) Hypertension Mr. 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 He developed severe hypocalcemia following Denosumab infusion. Renal function is normal. Calcitriol is being provided. The patient is taking PO calcium in the form of TUMs and Oscal. The patient has had associated hypomagnesemia. He is tolerating oral magnesium replacement. Calcium level appears to be stabilizing. He has urinary retention. Berkowitz was removed but he did not tolerate CIC. Berkowitz was replaced yesterday. Outpatient urology follow up to be scheduled Recommendations -- Berkowitz to gravity with outpatient urology follow up -- No need for additional IV calcium at this time -- Will arrange outpatient follow up in the nephrology clinic with me next week -- Monitor serum calcium 2-3 times weekly; fax results to [phone] -- Continue Mg Oxide 400 mg BID -- Continue Calcitriol 10 mcg daily, OsCal 2500 QID, TUMS 2 grams TID -- Serum creatinine stable at 1.5; this appears to be new baseline
--- NOTE | 2017-06-08 12:20 | Discharge Instructions ---
Discharge Instructions Date of Service Jun 08, 2017. Admission Reason for Admission: Hypokalcemia Discharge Discharge Diagnosis / Problem: severe hypocalcemia following Denosumab infusion Discharge Goals Goal(s): Decrease discomfort, Improve function, Increase independence, Improve disease control, Improve nutritional status, Learn about illness, Diagnostic testing, Therapeutic intervention, Prevent Disease Progression, Specific goals Activity Recommendations Activity Limitations: resume your previous activity . Instructions / Follow-Up Instructions / Follow-Up you have metastatic prostate CA w/ osseous metastatic disease. H you have severe hypocalcemia following Denosumab infusion, improving you have urinary retention, not tolerate CIC. , please f/u Outpatient urology f labs of BMP, ionized calcium per Home care, on M/W/F,. result need to be fax to Dr. aquino's service at [phone] Dr. Aquino's servive will review lab results and order this [facility] MTU calcium infusion if need. need to follow up in the nephrology clinic in next week - you need to follow up with your primary care physician in 1 week, - take medication as instructed, never overdose or any misuse, or take with alcohol, because misuse of medicine may cause organ damage or , call your primary care physician if have questions of medicaitons. - call your primary care physician OR go to local emergency room if has any fever/chill, chest pain, shortness of breathing, nausea/vomiting/abdominal pain , facial droop/slurry speech/local weakness, or if has any questions. - fall precaution - diet as instructed - you need to follow up with your subspecialist - you should understand that it is important to follow up the above instruction , and "not following the above instruction" may cause delayed or missed care of your medical conditions which may cause permanent organ damage and even . Current Hospital Diet Patient's current hospital diet: Regular Diet Discharge Diet Recommended Diet: Regular Diet Pending Studies Studies pending at discharge: no Medical Emergencies . Who to Call and When: Medical Emergencies: If at any time you feel your situation is an emergency, please call 911 immediately. . Non-Emergent Contact Non-Emergency issues call your: Primary Care Provider . . "Provider Documentation" section prepared by Burak Castano. .
[2017-06-08 13:08] VITALS: BP 124/78; PULSE 84; TEMP 36.6; O2SAT 97
--- NOTE | 2017-06-08 14:38 | Discharge Summary ---
Discharge Summary Date of Service Jun 08, 2017. Discharge Summary Admission Date: May 30, 2017 at 15:07 Discharge Date: Jun 08, 2017 Discharge Disposition: Home Principal Diagnosis: etastatic prostate CA w/ osseous metastatic disease Problems/Secondary Diagnoses: evere hypocalcemia following Denosumab infusion, urinary retention, on chronic Berkowitz catheter Immunizations: Have You Had Influenza Vaccine: Yes History of Tetanus Vaccine?: Unknown History of Pneumococcal: Unknown History of Hepatitis B Vaccine: Unknown Procedures: No Consultations: Support Dba Medication Reconciliation Continued Medications: Calcitriol (Calcitriol) 0.5 Mcg Cap 10 MCG PO QAM for 30 Days Calcium Carbonate (Oyster Shell Calcium) 1,250 Mg Tab 3750 MG PO QID for 30 Days, #36 TAB Calcium Carbonate (Tums) 500 Mg Chew 2000 MG PO 5XDQ4H for 30 Days Calcium Gluconate (Calcium Gluconate) 100 Mg/Ml Inj 1 DOSE IV UD for 3 Days -- Below 8, give 4 grams of calcium gluconate IV and call MD -- If 8-8.5, give 4 grams of calcium IV -- If 8.6-9, give 2 grams of calcium gluconate IV -- If 9.1-9.5, give 1 gram of calcium gluconate IV -- If > 9.6, do not give any calcium Docusate Sodium (Docusate Sodium) 100 Mg Cap 100 MG PO BID for 3 Days, #6 CAP Hydrochlorothiazide (Hydrochlorothiazide) 25 Mg Tab 25 MG PO QAM for 30 Days, #30 TAB Magnesium Oxide (Magnesium-Oxide) 400 Mg Tab 400 MG PO BID for 30 Days, #60 TAB Mirtazapine (Mirtazapine) 15 Mg Tab 15 MG PO HS for 30 Days, #30 TAB Nystatin (Nystatin) 45 Appln/15 Gm Oint 1 APPLN EXT PRN PRN for Itching for 3 Days Omeprazole (Prilosec) 20 Mg Capcr 20 MG PO QAM Pot Phosphate Monobasic W/ Sod (Phospha 250 Neutral) 1 Tab Tab 2 TAB PO QID for 30 Days, #240 TAB Ranitidine (Zantac) 300 Mg Tab 300 MG PO HS Tamsulosin Hcl (Flomax) 0.4 Mg Cap 0.8 MG PO HS Discharge Exam Doing well, up and walk, no complaints, eating okay, has Berkowitz catheter, good urine output Review of Systems: Constitutional: No fever, No chills, No sweats, No weight loss, No weakness , No fatigue, No problem reported Eyes: No worsening of vision, No eye pain, No redness, No discharge, No diplopia, No problem reported ENT: No hearing loss, No unusual epistaxis, No nasal symptoms, No sore throat, No tinnitus, No dental problems, No trouble swallowing, No problem reported Respiratory: No cough, No sputum, No wheezing, No shortness of breath, No dyspnea on exertion, No dyspnea at rest, No hemoptysis, No problem reported Cardiovascular: No chest pain, No orthopnea, No PND, No edema, No claudication, No palpitations, No problem reported Abdomen: No pain, No nausea, No vomiting, No diarrhea, No constipation, No GI bleeding, No problem reported Musculoskeletal: No joint pain, No muscle pain, No swelling, No calf pain, No problem reported Genitourinary - Male: No hematuria, No dysuria, No urinary frequency, No urinary urgency, No urinary hesitancy, No urinary retention, No urinary incontinence, No penile discharge, No lesions, No impotence, No problem reported Neurologic: No memory loss, No paralysis, No weakness, No numbness/tingling , No vertigo, No balance problems, No problem reported Psychiatric: No depression symptoms, No anhedonism, No anxiety, No insomnia , No substance abuse, No problem reported Endocrine: No fatigue, No excessive thirst, No excessive urination, No problem reported Hematologic / Lymphatic: No abnormal bleeding/bruising, No clotting problems , No swollen lymph nodes, No night sweats, No problem reported Integumentary: No rash, No itch, No new/changing skin lesions, No color change, No bleeding, No problem reported Physical Exam: General Appearance: WD/WN, no apparent distress, + thin, + pertinent finding (Pleasant in conversation) Eyes: normal inspection, PERRL ENT: normal ENT inspection, hearing grossly normal, TMs normal Neck: supple, no adenopathy, thyroid normal Respiratory/Chest: chest non-tender, no respiratory distress, no accessory muscle use, + decreased breath sounds Cardiovascular: regular rate, rhythm, no edema, no gallop, no JVD, no murmur Abdomen / GI: normal bowel sounds, non tender, soft, no organomegaly, no pulsatile mass Extremities: normal inspection, no calf tenderness, normal capillary refill Neurologic/Psychiatric: scientific helper II-XII nml as tested, no motor/sensory deficits , alert, normal mood/affect, normal reflexes Skin: normal color, warm/dry, no rash Hospital Course 81 year old man with a history of prostate cancer and osteoblastic mets that presented with fatigue and found to have severe hypocalcemia thought secondary to his Denosumab 03/02/2017 through 05/29/17. PT admitted on May 30, 2017 for hypocalcemia again. Hypocalcemia secondary to chemotherapy (Denosumab)- STABLE: Has been on medicines in below - HCTZ 25 mg daily - Continue Calcitrol, Tums, Calcium carbonate Has been using the scale below - IV Calcium gluconate sliding scale: -- Below 8, give 4 grams of calcium gluconate IV and call MD -- If 8-8.5, give 4 grams of calcium IV -- If 8.6-9, give 2 grams of calcium gluconate IV -- If 9.1-9.5, give 1 gram of calcium gluconate IV -- If > 9.6, do not give any calcium Has been remain off IV Calcium for 3 days (06/05, 06/06, and 06/07) to watch response , today's calcium continue to be 8.2 which is stable CKD stage III- baseline city carrier 1.5- STABLE Hypophosphatemia- STABLE: Continue Phosphate supplement 2 tabs QID Hypomagnesemia- STABLE: Continue Mag-Ox 400 mg BID 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 Gonzales: Continue Flomax Seborrheic dermatitis: Completed 14 day course of Desonide for face Aphthous ulceration oral mucosa: Supportive care, Orajel QID PRN for pain Depression, insomnia- STABLE: Continue Mirtazapine HS Has extensive discussion with watch caser , navigator and facility maintenance supervisor on the discharge plan, During his hospitalization has been observing patient's labs include calcium and ionized calcium levels for 3 days which has been stable, feel it would be doable to check patient's calcium level on Sunday and Sunday, and the lab will report to Dr. Miles berry and then Dr. Aquino can call or ordered IV calcium for the treatment, I double check with Dr. Aquino service, he is agreed, The best for patient will be to get follow up with pcp and [facility] , however patient's primary care physician reluctant to follow-up, and Dr. Aquino has no privilege in [facility], therefore patient have to come to [facility] if the calcium level is low and he can be get IV calcium infusion in MTU - PTH WNL GI prophylaxis: Zantac + Protonix- resume Prilosec at discharge DVT prophylaxis: Ambulation Code status: LEVEL V, DNR Instructions / Follow-Up you have metastatic prostate CA w/ osseous metastatic disease. you have severe hypocalcemia following Denosumab infusion, improving you have urinary retention, not tolerate CIC. , please f/u Outpatient urology f labs of BMP, ionized calcium per Home care, on M/W/,. result need to be fax to Dr. aquino's service at [phone] Dr. Aquino's servive will review lab results and order this [facility] MTU calcium infusion if need. need to follow up in the nephrology clinic in next week - you need to follow up with your primary care physician in 1 week, - take medication as instructed, never overdose or any misuse, or take with alcohol, because misuse of medicine may cause organ damage or , call your primary care physician if have questions of medicaitons. - call your primary care physician OR go to local emergency room if has any fever/chill, chest pain, shortness of breathing, nausea/vomiting/abdominal pain , facial droop/slurry speech/local weakness, or if has any questions. - fall precaution - diet as instructed - you need to follow up with your subspecialist - you should understand that it is important to follow up the above instruction , and "not following the above instruction" may cause delayed or missed care of your medical conditions which may cause permanent organ damage and even . Total Time Spent: Greater than 30 minutes This includes examination of the patient, discharge planning, medication reconciliation, and communication with other providers. Discharge Instructions Please refer to the electronic Patient Visit Report (Discharge Instructions) for additional information. Additional Copies To Mike Aquino D.O.
[2017-06-08] MEDS ORDERED: CALC500C3 PO (15:09)
== END 2017-06-08 17:15 | disposition home or self-care (01) | DRG 641 ==
LOC: UNDOADMIN 15:05 → C.MS2W 15:05
PROVIDERS: ADMIT Internal Medicine; ATTEND Hospitalist
DX: E83.51 Hypocalcemia (principal); C79.51 Secondary malignant neoplasm of bone; C61 Malignant neoplasm of prostate; T50.995A Adverse effect of other drugs, medicaments and biological substances, initial encounter; Y92.129 Unspecified place in nursing home as the place of occurrence of the external cause; Z87.891 Personal history of nicotine dependence; E83.39 Other disorders of phosphorus metabolism; E83.42 Hypomagnesemia; R33.9 Retention of urine, unspecified; L21.9 Seborrheic dermatitis, unspecified; K12.0 Recurrent oral aphthae; F32.9 Major depressive disorder, single episode, unspecified; N40.1 Benign prostatic hyperplasia with lower urinary tract symptoms; E86.0 Dehydration; I10 Essential (primary) hypertension

== ENCOUNTER → 2017-07-05 | Outpatient (CLI) | payer OTHER ==
[~2017-07-05] MED LIST changes: +CALC500C3 PO; +OPTIRAY 320 IV PRN; -POTTAB2 PO
--- NOTE | 2017-07-05 13:32 | DIAGNOSTIC IMAGING REPORT ---
CT SCAN OF THE CHEST, ABDOMEN, AND PELVIS WITH IV CONTRAST CLINICAL HISTORY: Prostate cancer. Abdominal CT dated 02/20/2017. COMPARISON STUDY: Chest and abdominal radiographs dated 05/25/2017. TECHNIQUE: Following the IV administration of 120 of Optiray 320, CT scan of the chest, abdomen, and pelvis was performed from the thoracic inlet to the proximal femora. Images are reviewed in the axial, sagittal, and coronal planes. IV contrast was administered without complication. Automated dose control exposure was utilized. A dose lowering technique was utilized adhering to the principles of ALARA. CT DOSE: 624.30 mGycm FINDINGS: CHEST: Thyroid: Imaged portions of the thyroid gland are normal in size and attenuation. Thoracic aorta: There is atherosclerotic calcification of the thoracic aorta, which is normal in caliber and demonstrates standard 3-vessel arch anatomy. No dissection is seen. Pulmonary vasculature: The pulmonary trunk is normal in caliber. There are no filling defects identified in the central pulmonary vessels to indicate pulmonary embolus. Note that this examination was not protocoled for evaluation of the pulmonary arteries. Heart: The heart is enlarged and without pericardial effusion. The coronary arteries are densely calcified. Lungs and pleural spaces: Fat-containing Bochdalek hernias are seen at both lung bases. There is bibasilar scarring/atelectasis. No airspace consolidation is seen typical for pneumonia and there is no pleural effusion. The trachea and central airways are clear. A tiny cluster of nodules at the medial right lung base is similar to before and measures up to 5 mm. This is unchanged from previous. No new pulmonary lesion is seen. Mediastinum: There is no mediastinal lymphadenopathy. Maribeth: Clear. Axillae: There is no axillary lymphadenopathy. Bony thorax: The skeletal structures are osteopenic. 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 This involves all of the visualized bony structures. There is a mild superior endplate compression deformity of T3. There is a moderate compression deformity of T6. A fracture line in T6 suggests that this may be acute to subacute. ABDOMEN AND PELVIS: Liver: The contrast-enhanced liver is normal in size, contour, and attenuation. There is no intrahepatic or ductal dilatation. The hepatic veins and portal veins are patent. Gallbladder: Unremarkable. Spleen: Normal in size and attenuation. Pancreas: Moderately atrophic and grossly unremarkable. Adrenal glands: Unremarkable. Kidneys: The contrast enhanced kidneys demonstrate cortical atrophy and are without hydronephrosis. The kidneys enhance symmetrically. Numerous bilateral renal cysts measure up to 5 cm. Additional subcentimeter cortical hypodensities also likely represent cysts but are too small for definitive characterization. Abdominal vasculature: There is advanced atherosclerotic calcification and mild ectasia of the abdominal aorta. Stomach and bowel: There is a moderate to large hiatal hernia. The duodenum does not cross midline and this may fall within the malrotation spectrum. There is advanced colonic diverticulosis without CT evidence of acute diverticulitis. Moderate colonic fecal retention is observed. No bowel obstruction is seen. The appendix is well-visualized and normal. Peritoneum: There is no intraperitoneal free air or abdominal ascites. Lymphadenopathy: None. Pelvic viscera: The prostate gland is markedly enlarged and heterogeneous, measuring 5 cm in transverse diameter. The bladder is partially decompressed and Berkowitz catheter. The bladder wall is markedly thickened and hyperemic. Mild pericystic stranding is identified. There is a fat-containing left inguinal hernia. There is trace free fluid in the pelvis. Skeletal structures: The skeletal structures are osteopenic. 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 There is a right-sided pars defect at L5. IMPRESSION: 1. 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 This appears increasingly diffuse/sclerotic throughout the abdomen as compared to the 02/20/2017 examination. No prior chest imaging is available for comparison purposes. 2. There is no retroperitoneal or iliac chain lymphadenopathy. 3. The prostate gland is enlarged and heterogeneous. 4. The bladder wall is markedly thickened and hyperemic. Pericystic inflammation is noted, and this is typical in appearance for cystitis. This may be related to radiation treatment. Clinical correlation will be required. 5. Advanced colonic diverticulosis without CT evidence of acute diverticulitis. 6. There is no airspace consolidation or pleural effusion. 7. There is a moderate compression deformity of T6. Fracture lucency is identified within the T6 vertebral body and this may be acute to subacute. Correlate for point tenderness. 8. Cardiomegaly and moderate to large hiatal hernia. 9. Additional findings as above. Electronically signed by: Zoltan Barfield M.D. 07/05/2017 1:31 PM Dictated Date/Time: 07/05/2017 1:11 PM
--- NOTE | 2017-07-05 16:02 | DIAGNOSTIC IMAGING REPORT ---
BONE SCAN WHOLE BODY CLINICAL HISTORY: 82 years-old Male presenting with C61 Neoplasm of prostate, malignant. TECHNIQUE: Planar anterior and posterior imaging of the whole body was performed 3 hours following the intravenous administration of 23.7 mCi Tc-99m MDP. COMPARISON: 02/19/2017. FINDINGS: Again demonstrated is diffuse osseous radiotracer uptake with nonvisualization of the kidneys. The bladder is decompressed with a Berkowitz catheter. The entire axial and appendicular skeleton is involved. This is compatible with a SuperScan. The inferior sternal lesion is notably increased in size and were avidity. New lesion in the diaphysis of the left humerus. IMPRESSION: 1. Findings suggest progression of disease. 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 Electronically signed by: Mekhi Ni M.D. 07/05/2017 4:00 PM Dictated Date/Time: 07/05/2017 3:58 PM
== END | disposition home or self-care (01) ==
LOC: C.NUCL 12:03
PROVIDERS: ATTEND Urology
DX: N40.0 Benign prostatic hyperplasia without lower urinary tract symptoms (principal); K57.90 Diverticulosis of intestine, part unspecified, without perforation or abscess without bleeding; M85.88 Other specified disorders of bone density and structure, other site; C79.51 Secondary malignant neoplasm of bone; M84.48XA Pathological fracture, other site, initial encounter for fracture